=== PATIENT | female | born 1960 | race Caucasian/White ===

== ENCOUNTER 2019-08-14 13:08 | Inpatient (IN) | payer MEDICARE, SELFPAY | END 2019-08-14 20:30 | disposition left against medical advice (07) | DRG 65 | PROVIDERS: Admitting Provider Internal Medicine; Emergency Provider Emergency Medicine; Family Provider Family Medicine; Visit Provider Internal Medicine | DX: I63.9 Cerebral infarction, unspecified (principal); Z68.41 Body mass index [BMI] 40.0-44.9, adult; Z53.29 Procedure and treatment not carried out because of patient's decision for other reasons; I10 Essential (primary) hypertension; Z79.4 Long term (current) use of insulin; G47.33 Obstructive sleep apnea (adult) (pediatric); E11.40 Type 2 diabetes mellitus with diabetic neuropathy, unspecified; E66.9 Obesity, unspecified ==

== ENCOUNTER 2019-10-08 06:00 | Outpatient (RCR) | payer MEDICARE, SELFPAY | END 2019-10-16 23:59 | disposition home or self-care (01) | LOC: SST 06:00 | PROVIDERS: Family Provider Family Medicine; PCP Family Medicine; Referring Provider Internal Medicine; Visit Provider Internal Medicine | DX: R13.10 Dysphagia, unspecified (principal) | CPT/HCPCS: 92507; 96105 ==

== ENCOUNTER 2019-10-17 06:00 | Outpatient (RCR) | payer MEDICARE, SELFPAY | END 2019-11-16 23:59 | disposition home or self-care (01) | LOC: SST 06:00 | PROVIDERS: Family Provider Family Medicine; PCP Family Medicine; Referring Provider Internal Medicine; Visit Provider Internal Medicine | DX: I63.012 Cerebral infarction due to thrombosis of left vertebral artery (principal); I69.320 Aphasia following cerebral infarction; R13.10 Dysphagia, unspecified | CPT/HCPCS: 92507 ==

== ENCOUNTER → 2019-12-28 11:00 | Outpatient (BNVA) | payer MEDICARE, SELFPAY | PROVIDERS: Family Provider Family Medicine; PCP Family Medicine; Visit Provider Internal Medicine | DX: E03.9 Hypothyroidism, unspecified (principal); E11.40 Type 2 diabetes mellitus with diabetic neuropathy, unspecified; Z79.4 Long term (current) use of insulin; K75.81 Nonalcoholic steatohepatitis (NASH); I10 Essential (primary) hypertension; R47.02 Dysphasia; E78.2 Mixed hyperlipidemia | CPT/HCPCS: 80053; 80061; 83036; 83721; 84443; 85025 ==

== ENCOUNTER → 2020-02-29 14:10 | Outpatient (BNVA) | payer MEDICARE, SELFPAY | PROVIDERS: Family Provider Family Medicine; PCP Family Medicine; Visit Provider Internal Medicine | DX: E11.40 Type 2 diabetes mellitus with diabetic neuropathy, unspecified (principal); Z79.4 Long term (current) use of insulin; E03.9 Hypothyroidism, unspecified; I10 Essential (primary) hypertension; R47.02 Dysphasia; E78.2 Mixed hyperlipidemia | CPT/HCPCS: 80053; 83036; 84443; 85025 ==

== ENCOUNTER 2020-07-03 10:52 | Emergency (ER) | payer MEDICARE, SELFPAY ==
[2020-07-03 11:04] VITALS: BP 105/64; PULSE 86; RESP 18; TEMP 36.6; O2SAT 95; BMI 41.5
--- NOTE | 2020-07-03 11:25 | W.ED.FALL ---
HPI - Fall General: Chief Complaint: Fall Stated Complaint: Fall/Right arm injury Time Seen by Provider: 07/03/20 11:23 History of Present Illness: HPI Narrative: Patient is a 60-year-old female comes to the ED with right shoulder and left foot pain after fall. Patient has a past medical history of hypertension, diabetes with neuropathy and Wernicke dysphagia. Patient says she tripped and fell down earlier this morning. She denies any loss of consciousness or hitting her head. She is complaining of having pain on the lateral side of left foot hand and her right shoulder. Patient arrived in homemade sling for right arm. Associated symptoms-after fall: Denies abdominal pain, chest pain, headache(s), hematuria or neck pain Review of Systems Const: Denies: fever(s), chills or fatigue Eyes: Denies: change in vision or eye discomfort ENMT: Denies: throat pain, odynophagia, nasal discharge or nasal congestion Card: Denies: chest pain, palpitations, edema, swelling of feet/ankles, dyspnea on exertion or orthopnea Resp: Denies: dyspnea, productive cough or non-productive cough GI: Denies: abdominal pain, nausea, vomiting, diarrhea, constipation or hematochezia : Denies: flank pain, dysuria or hematuria Musc: Reports: extremity pain (Right shoulder and left foot); Denies: neck pain, back pain or extremity swelling Skin/Breast: Denies: rash or new lesions Neuro: Denies: headache(s), numbness in extremities or weakness in extremities [facility] ED PFSH: Medical History Diabetes mellitus with neuropathy Mixed hyperlipidemia Family History Other Asthma Cancer Diabetes Heart disease Hypertension Stroke Social History Smoking and tobacco status: former smoker Alcohol intake: current Alcohol intake frequency: few times a month History of recent travel: No Physical Exam Const: COMMON NORMALS: no acute distress, patient oriented x3 and alert GENERAL APPEARANCE: cooperative and comfortable HENMT: COMMON NORMALS: normocephalic HEAD & SCALP: normocephalic; no Caceres's sign and no raccoon eyes MOUTH: Normal oral and palatal mucosa present THROAT: posterior oropharynx normal and uvula midline Eye: COMMON NORMALS: Equal, round and reactive pupils present PUPIL: Yes Equal, round and reactive pupils present Neck/C-Spine: COMMON NORMALS: supple GENERAL: Yes normal visual inspection Resp: COMMON NORMALS: normal respiratory effort, No retractions, No use of accessory muscles and clear to auscultation bilaterally AUSCULTATION: clear to auscultation bilaterally Cardio: COMMON NORMALS: regular rate, regular rhythm, S1 normal heart sound present, S2 normal heart sound present, No gallops present (Cardio), No clicks present (Cardio), No murmurs present (Cardio) and Peripheral pulses 2+ throughout RATE: regular rate RHYTHM: regular rhythm HEART SOUNDS: S1 normal heart sound present and S2 normal heart sound present PERIPHERAL PULSES: Peripheral pulses 2+ throughout GI: COMMON NORMALS: Normal to inspection, nondistended, normoactive bowel sounds present, Soft to palpation, non-tender and no masses PALPATION: Yes Soft to palpation : COMMON NORMALS: Yes no CVA tenderness BLADDER/KIDNEY EXAM: Yes no CVA tenderness Back/Pelvis: COMMON NORMALS: no CVA tenderness Extremity: NARRATIVE EXTREMITY EXAM: Left foot?normal visual inspection with no edema or deformity seen. No erythema or warmth. Mild tenderness to lateral aspect of left foot just below fifth digit. Pedal pulse 2+, neurovascular tact. Right shoulder- tender upon palpation near proximal humeral head. No visible deformity seen. Radial pulse 2+ and neurovascular tact. Limited range of motion due to pain. GENERAL: Yes normal exam except as noted Neuro: COMMON NORMALS: patient oriented x3 and moves all extremities SENSORIUM/ORIENTATION: Yes alert SPEECH: expressive aphasia (Patient has Warnicke dysphagia?chronic issue.) Skin: GENERAL SKIN EXAM: dry skin Course Vital Signs: Vital signs: Vital Signs Temperature 97.8 F 07/03/20 11:04 Pulse Rate 99 07/03/20 14:01 Respiratory Rate 16 07/03/20 14:01 Blood Pressure 155/86 07/03/20 14:01 Pulse Oximetry 96 07/03/20 14:01 MDM - Fall MDM Narrative: Medical decision making narrative: Patient is a 60-year-old female comes to the ED after having a fall with right shoulder and left foot pain. Left foot x-ray shows no acute fractures or findings. Right shoulder x-ray shows fracture of surgical neck of the humerus with minimal displacement. Radial pulse in right arm 2+ and neurovascular tact. Plan patient was put in a shoulder immobilizer and referral order was put in with case management for orthopedic doctor. Patient was put on written prescription for [place] 5/325 mg tabs?8 tabs dispensed. She was told that case management will be contacting her in the next several days to set up an appoint with orthopedic doctor. Keep right arm and shoulder immobilizer and limit activity with right arm. Return to ED precautions given. Patient understood and agreed with plan. Imaging Data^: Xray Ortho: Attestation: I personally reviewed and interpreted this imaging study as follows: Radiologist's impression: [facility] [address] [place] [address]. [place] [address] XRay Report Signed Patient: Hilda Wallace Unit #: [id number] : 1960 Age/Sex: 60 / F ADM Date: 07/03/20 Loc: ER Room/Bed: Attending Dr: Ordering Provider/Ordering MD: Brenton Diane Date of Service: 07/03/20 Procedure(s): XR shoulder RT min 2V* 31596 Accession Number(s): [id number] Report Number: [id number] WS: [id number] Exam: XR shoulder RT min 2V* [id number] Date/Time of Exam: 07/03/2020 11:44 AM Reason For Exam: fall Comparison 06/14/2010. There is a fracture through the surgical neck of the humerus with minimal displacement. No dislocation noted. Marked degenerative deformity of the humeral head. A single orthopedic anchoring screw is seen in the humeral head. Postoperative changes of the distal clavicle. Normal soft tissues. XR/XR shoulder RT min 2V* [id number] IMPRESSION: 1. Fracture through the surgical neck of the humerus with minimal displacement. 2. Degenerative changes and osteopenia. Postoperative change. Dictated By: Cesar Harmon DO Signed By: Cesar Harmon DO Signed Date/Time: 07/03/20 1252 DD/ [address] [facility] [address] [place] [address]. [place] [address] XRay Report Signed Patient: Hilda Wallace Unit #: [id number] : 1960 Age/Sex: 60 / F ADM Date: 07/03/20 Loc: ER Room/Bed: Attending Dr: Ordering Provider/Ordering MD: Brenton Diane Date of Service: 07/03/20 Procedure(s): XR foot LT min 3V* 20634 Accession Number(s): [id number] Report Number: [id number] WS: [id number] Exam: XR foot LT min 3V* [id number] Date/Time of Exam: 07/03/2020 11:44 AM Reason For Exam: fall Comparison 03/27/2010. No fracture or dislocation. Posterior heel spur. Degenerative changes in the IP joints and first MP joint. XR/XR foot LT min 3V* [id number] IMPRESSION: 1. Degenerative changes and posterior heel spur. 2. No fracture. Dictated By: Cesar Harmon DO Signed By: Cesar Hamron DO Signed Date/Time: 07/03/20 1300 DD/ 1257 Discharge Plan Discharge Patient Disposition: Home Clinical Impression: Fracture, humerus closed Qualifiers: Encounter type: initial encounter Humerus Location: surgical neck Fracture morphology: 2-part Fracture alignment: nondisplaced Laterality: right Qualified Code(s): S42.224A - 2-part nondisplaced fracture of surgical neck of right humerus, initial encounter for closed fracture Condition: Stable Prescriptions: No Action metoprolol tartrate 25 mg tablet 25 mg PO BID 90 Days Qty: 180 RF: 3 insulin aspart U-100 [Novolog Flexpen U-100 Insulin] 100 unit/mL (3 mL) insulin pen 50 unit SUBCUT TID Qty: 45 RF: 12 hydrochlorothiazide 50 mg tablet 50 mg PO QAM Qty: 90 RF: 3 tramadol 50 mg tablet 50 mg PO Q6H PRN (Reason: pain) Qty: 120 RF: 2 spironolactone 50 mg tablet 50 mg PO QAM 30 Days Qty: 30 RF: 2 duloxetine 60 mg capsule,delayed release(DR/EC) 60 mg PO DAILY Qty: 90 RF: 3 allopurinol 300 mg tablet 300 mg PO DAILY Qty: 90 RF: 0 atorvastatin 80 mg tablet See Rx Instructions .ROUTE .COMPLEX Qty: 90 RF: 0 clopidogrel 75 mg tablet See Rx Instructions .ROUTE .COMPLEX Qty: 90 RF: 0 lisinopril 10 mg tablet 10 mg PO DAILY RF: 0 tizanidine 6 mg capsule 6 mg PO BEDTIME PRN (Reason: muscle spasticity) RF: 0 Discharge Orders: Discharge Order (Routine); Ordered 07/03/20 Ordered By: Brenton Diane Referrals: Neftaly Brambial MD [Primary Care Provider] - Discharge Diet: Regular Discharge Activity: Limit activity as instructed Patient Instructions: Fractures - Humerus Activity Restrictions/Additional Instructions: Follow-up with medical provider as directed. Case management will be contacting you in the next several days to set up an appointment with orthopedic doctor. Keep right arm and shoulder immobilizer until seen and instructed otherwise by orthopedic doctor. Take medications as prescribed. Return to the ER or your medical provider if condition worsens. Please read and understand discharge instructions. If any questions, please ask. Coding Level of Care Code ED [facility] for [employer] [facility] Exam Comprehensive
--- NOTE | 2020-07-03 11:44 | XR_ITS ---
WS: [id number] Exam: XR shoulder RT min 2V* [id number] Date/Time of Exam: 07/03/2020 11:44 AM Reason For Exam: fall Comparison 06/14/2010. There is a fracture through the surgical neck of the humerus with minimal displacement. No dislocatio n noted. Marked degenerative deformity of the humeral head. A single orthopedic anchoring screw is se en in the humeral head. Postoperative changes of the distal clavicle. Normal soft tissues. XR/XR shoulder RT min 2V* [id number] IMPRESSION: 1. Fracture through the surgical neck of the humerus with minimal displacement. 2. Degenerative changes and osteopenia. Postoperative change.
--- NOTE | 2020-07-03 11:44 | XR_ITS ---
WS: [id number] Exam: XR foot LT min 3V* [id number] Date/Time of Exam: 07/03/2020 11:44 AM Reason For Exam: fall Comparison 03/27/2010. No fracture or dislocation. Posterior heel spur. Degenerative changes in the IP joints and first MP j oint. XR/XR foot LT min 3V* [id number] IMPRESSION: 1. Degenerative changes and posterior heel spur. 2. No fracture.
[2020-07-03] MEDS: HYDROcodone-acetaminophen 7.5-325 mg Tablet 1 TAB PO (12:18)
[2020-07-03 12:21] VITALS: BP 127/63; PULSE 87; RESP 14; O2SAT 97
[2020-07-03 14:01] VITALS: BP 155/86; PULSE 99; RESP 16; O2SAT 96
--- NOTE | 2020-07-03 14:39 | DCPLANNER ---
client account manager was asked to schedule a follow up appointment for patient with ortho. client account manager called the ortho clinic, spoke with Zunilda, gave clinic patients information. client account manager was told that patients information would be printed and reviewed. Clinic will call patient with appointment information.
--- NOTE | 2020-07-12 09:41 | DCPLANNER ---
Patient has a follow up appointment scheduled for Saturday, July 25, 2020 at 9:[address] Garcia. Clinic will call patient with appointment information.
--- NOTE | 2020-08-01 15:13 | DCPLANNER ---
Patient had a follow up appointment scheduled for 07.25.20 with ortho - patient did not attend appointment.
== END 2020-07-03 14:02 | disposition home or self-care (01) ==
PROVIDERS: Emergency Provider Physician Assistant; PCP Internal Medicine
DX: S42.224A 2-part nondisplaced fracture of surgical neck of right humerus, initial encounter for closed fracture (principal); W01.0XXA Fall on same level from slipping, tripping and stumbling without subsequent striking against object, initial encounter
CPT/HCPCS: 12345; 29240; 73030; 73630; 99281; 99283

== ENCOUNTER 2020-07-08 11:45 | Observation (INO) | payer MEDICARE, SELFPAY ==
--- NOTE | 2020-07-08 11:50 | CTR_ITS ---
PROCEDURE INFORMATION: Exam: CT Cervical Spine Without Contrast Exam date and time: 07/08/2020 1:45 PM Age: 60 years old Clinical indication: Injury or trauma; Fall; Blunt trauma; Additional info: Pain TECHNIQUE: Imaging protocol: Computed tomography images of the cervical spine without contrast. Radiation optimization: All CT scans at this facility use at least one of these dose optimization techniques: automated exposure control; mA and/or kV adjustment per patient size (includes targeted exams where dose is matched to clinical indication); or iterative reconstruction. COMPARISON: CT Cervical Spine wo* [id number] 06/16/2014 8:42 PM RADIATION DOSE METRICS: Total DLP (mGy-cm): 705.24 FINDINGS: Bones/joints: The vertebral bodies maintain height and alignment. The facets align normally. Mild facet arthropathy on the right at C7-T1, and on the left at C2-C3. The craniocervical junction is normal. The atlantodens interval is not widened. No acute fracture. Discs/Spinal canal/Neural foramina: There is disc and uncovertebral joint degeneration at C5-C6 and C6-C7. Mild bilateral degenerative foraminal stenosis at these levels. Soft tissues: No acute soft tissue abnormality. Thyroid: Heterogeneous thyroid gland with calcifications in the right lobe. Lungs: The lung apices are normal. CT/CT cervical spin wo con* [id number] IMPRESSION: No acute osseous abnormality. Radiation Dose CTDIVOL = (mGy): DLP = 705.24 (mGy-cm)
--- NOTE | 2020-07-08 11:50 | CTR_ITS ---
PROCEDURE INFORMATION: Exam: CT Head Without Contrast Exam date and time: 07/08/2020 1:45 PM Age: 60 years old Clinical indication: Altered mental status/memory loss; Confusion or disorientation; Additional info: Fall/injury/altered mental status TECHNIQUE: Imaging protocol: Computed tomography of the head without contrast. Radiation optimization: All CT scans at this facility use at least one of these dose optimization techniques: automated exposure control; mA and/or kV adjustment per patient size (includes targeted exams where dose is matched to clinical indication); or iterative reconstruction. COMPARISON: CT Head wo IV contrast* [id number] 08/14/2019 2:13 PM RADIATION DOSE METRICS: Total DLP (mGy-cm): 948.64 FINDINGS: Brain: There is left temporal lobe encephalomalacia from a prior infarct. Interval chronic appearing small right cerebellar infarct. No intracranial hemorrhage. No acute brain injury. Cerebral ventricles: No hydrocephalus. There is a cavum septum pellucidum and cavum vergae. Bones/joints: No calvarial fracture. There is hyperostosis frontalis interna. Paranasal sinuses: The paranasal sinuses are aerated. Mastoid air cells: The mastoid air cells are aerated. Soft tissues: No acute soft tissue abnormality. CT/CT head wo con* [id number] IMPRESSION: No intracranial injury or calvarial fracture. Radiation Dose CTDIVOL = (mGy): DLP = 948.64 (mGy-cm)
--- NOTE | 2020-07-08 11:51 | CTR_ITS ---
PROCEDURE INFORMATION: Exam: CT Lumbar Spine Without Contrast Exam date and time: 07/08/2020 1:45 PM Age: 60 years old Clinical indication: Injury or trauma; Fall; Blunt trauma (contusions or hematomas); Additional info: Pain/fall TECHNIQUE: Imaging protocol: Computed tomography images of the lumbar spine without contrast. Radiation optimization: All CT scans at this facility use at least one of these dose optimization techniques: automated exposure control; mA and/or kV adjustment per patient size (includes targeted exams where dose is matched to clinical indication); or iterative reconstruction. COMPARISON: No relevant prior studies available. RADIATION DOSE METRICS: Total DLP (mGy-cm): 2007.9 FINDINGS: Vertebrae: The lumbar vertebral bodies maintain height and alignment. The facets align normally. There is multilevel facet arthropathy. No acute fracture. Discs/Spinal canal/Neural foramina: There is multilevel disc degeneration with bridging osteophyte formation. Soft tissues: No paraspinal soft tissue swelling. CT/CT lumbar spine wo con* [id number] IMPRESSION: 1. No acute osseous abnormality. 2. Multilevel degenerative changes. Radiation Dose CTDIVOL = (mGy): DLP = 2007.9 (mGy-cm)
--- NOTE | 2020-07-08 11:51 | XRR_ITS ---
PROCEDURE INFORMATION: Exam: XR Chest, 1 View Exam date and time: 07/08/2020 11:52 AM Age: 60 years old Clinical indication: Injury or trauma; Fall; Blunt trauma (contusions or hematomas); Additional info: Altered mental status TECHNIQUE: Imaging protocol: XR of the chest Views: 1 view. COMPARISON: CR Chest 1 [place] [id number] 08/14/2019 1:25 PM FINDINGS: Lungs: Unremarkable. No consolidation. Pleural space: Unremarkable. No pleural effusion. No pneumothorax. Heart/Mediastinum: Unremarkable. No cardiomegaly. Bones/joints: Unremarkable. XR/XR chest 1V portable [id number] IMPRESSION: No acute findings.
[2020-07-08 11:52] VITALS: BP 145/77; PULSE 72; RESP 16; TEMP 37.3; O2SAT 97; BMI 36.6
--- NOTE | 2020-07-08 11:52 | ECG_ITS ---
[facility] Test Date: 2020-07-08 Pat Name: Hilda Wallace Department: Room: Gender: Female Managing Attorney: : 1960 Requested By: Rylie Farrell Order Number: [id number] Kyler MD: Miguel Zimmer M.D. Measurements Intervals [place] Rate: 87 P: 28 IA: 156 QRS: -36 QRSD: 127 T: 66 QT: 393 QTc: 473 Interpretive Statements SINUS RHYTHM WITH OCCASIONAL SUPRAVENTRICULAR PREMATURE COMPLEXES LEFT AXIS DEVIATION [QRS AXIS < -30] RIGHT BUNDLE BRANCH BLOCK [120+ ms QRS DURATION, UPRIGHT V1, 40+ ms S IN I/aVL/V4/V5/V6] LEFT VENTRICULAR HYPERTROPHY AND ST-T CHANGE [VOLTAGE CRITERIA PLUS ST/T ABNORMALITY] LATERAL MYOCARDIAL INFARCTION , PROBABLY OLD [40+ ms Q WAVE AND/OR ST/T ABNORMALITY IN I/aVL/V5/V6] Compared to ECG 08/14/2019 17:06:31 No significant changes Electronically Signed On 07-09-2020 18:44:02 CAN DRYER by Miguel Zimmer M.D. [id number]
--- NOTE | 2020-07-08 12:00 | CTR_ITS ---
PROCEDURE INFORMATION: Exam: CT Angiography Head With Contrast Exam date and time: 07/08/2020 1:45 PM Age: 60 years old Clinical indication: Other: Fall, AMS; Additional info: Altered mental status TECHNIQUE: Imaging protocol: Computed tomography angiography of the head with intravenous contrast. 3D rendering (Not supervised by radiologist): MIP and/or 3D reconstructed images were created by the technologist. Radiation optimization: All CT scans at this facility use at least one of these dose optimization techniques: automated exposure control; mA and/or kV adjustment per patient size (includes targeted exams where dose is matched to clinical indication); or iterative reconstruction. Contrast material: VISI 320; Contrast volume: 95 ml; Contrast route: INTRAVENOUS (IV); COMPARISON: CTA Head/Neck [id number] 08/14/2019 2:18 PM RADIATION DOSE METRICS: Total DLP (mGy-cm): 2163.31 FINDINGS: ANTERIOR CIRCULATION: Right internal carotid artery: No stenosis, occlusion or aneurysm. Right middle cerebral artery: No stenosis, occlusion or aneurysm. Right anterior cerebral artery: No stenosis, occlusion or aneurysm. Left internal carotid artery: No stenosis, occlusion or aneurysm. Left middle cerebral artery: No stenosis, occlusion or aneurysm. Left anterior cerebral artery: No stenosis, occlusion or aneurysm. POSTERIOR CIRCULATION: Right vertebral artery: No stenosis, occlusion or aneurysm. Left vertebral artery: Terminates in PICA Basilar artery: No stenosis, occlusion or aneurysm. Right posterior cerebral artery: No stenosis, occlusion or aneurysm. The posterior communicating artery is patent. Left posterior cerebral artery: No stenosis, occlusion or aneurysm. The posterior communicating artery is patent. Brain: No acute brain parenchymal abnormality. Left temporal lobe encephalomalacia from prior infarct. Small chronic appearing right cerebellar infarct. No intracranial hemorrhage. No extraaxial fluid collections. Cerebral ventricles: No hydrocephalus. Bones/joints: No acute osseous abnormality. Soft tissues: No acute soft tissue abnormality. IMPRESSION: No large vessel occlusion. PROCEDURE INFORMATION: Exam: CT Angiography Neck With Contrast Exam date and time: 07/08/2020 1:45 PM Age: 60 years old Clinical indication: Other: Fall, AMS; Additional info: Altered mental status TECHNIQUE: Imaging protocol: Computed tomography angiography of the neck with intravenous contrast. 3D rendering (Not supervised by radiologist): MIP and/or 3D reconstructed images were created by the technologist. Radiation optimization: All CT scans at this facility use at least one of these dose optimization techniques: automated exposure control; mA and/or kV adjustment per patient size (includes targeted exams where dose is matched to clinical indication); or iterative reconstruction. Contrast material: VISI 320; Contrast volume: 95 ml; Contrast route: INTRAVENOUS (IV); COMPARISON: CTA Head/Neck [id number] 08/14/2019 2:18 PM RADIATION DOSE METRICS: Total DLP (mGy-cm): 2163.31 FINDINGS: Right common carotid artery: No stenosis, occlusion or dissection. Right internal carotid artery: Mild eccentric plaque formation in the bulb causing 25% luminal stenosis. Right external carotid artery: No occlusion or stenosis of the origin. Right vertebral artery: No stenosis, occlusion or dissection. Dominant. Left common carotid artery: No stenosis, occlusion or dissection. Left internal carotid artery: Mild eccentric plaque formation in the bulb causing 30% luminal stenosis. Left external carotid artery: No occlusion or stenosis of the origin. Left vertebral artery: No stenosis, occlusion or dissection. Thyroid: Enlarged thyroid with multiple nodules and/or cysts measuring up to 1.6 cm in size. Calcifications in the right lobe. Bones/joints: Multilevel degenerative changes in the cervical spine. Soft tissues: No acute soft tissue abnormality. Lungs: Calcified right upper lobe pulmonary granulomas. CT/CT angio headneck* [id number] IMPRESSION: 1. Mild (25-30%) bilateral proximal ICA stenosis. 2. Multinodular goiter. COMMENTS: Consistent with the [employer]'s Incidental Findings Committee white paper (J Am Kirt Radiol 2015): In patients aged 35 years and older with an incidental thyroid nodule equal to or greater than 1.[address], MRI or extrathyroidal US, further evaluation with dedicated thyroid US is recommended for patients with normal life expectancy and without comorbidities. For smaller nodules without suspicious features, no further evaluation or follow up is recommended. REFERENCES: NASCET CRITERIA. The degree of internal carotid artery stenosis is based on NASCET criteria. Normal is no stenosis. Mild is less than 50% stenosis. Moderate is 50-69% stenosis. Severe is 70% to 99% stenosis. Total occlusion is no detectable patent lumen. Radiation Dose CTDIVOL = (mGy): DLP = 2163.31~2163.31 (mGy-cm)
[2020-07-08 12:13] LABS: Basophils # 0.1 10^3/uL (0.0-0.1); Basophils % 0.7 %; Eosinophils % 0.4 %; Hematocrit 36.4 % (37.0-47.0); Hemoglobin 11.9 g/dL (11.5-15.3); Lymphocytes # 1.6 10^3/uL (0.8-4.8); Lymphocytes % 16.4 %; Mean Corpuscular HGB Conc 32.7 g/dL (30.0-36.0); Mean Corpuscular Hemoglobin 28.1 pg (28.0-34.0); Mean Corpuscular Volume 86.1 fL (81-99); Mean Platelet Volume 10.4 fL (7.4-10.4); Monocytes # 0.8 10^3/uL (0.2-0.9); Monocytes % 8.6 %; Neutrophils # 7.03 10^3/uL (1.8-7.7); Neutrophils % 73.6 %; Nucleated Red Blood Cells % 0 %; Platelet Count 409 10^3/cmm (130-400); Red Blood Count 4.23 10^6/uL (4.1-5.3); Red Cell Distribution Width 13.1 % (12.1-15.1); White Blood Count 9.6 10^3/uL (4.0-10.0)
[2020-07-08 12:23] LABS: Ketone (Acetest) Serum Positive (Negative)
--- NOTE | 2020-07-08 12:33 | XRR_ITS ---
PROCEDURE INFORMATION: Exam: XR Right Humerus Exam date and time: 07/08/2020 12:33 PM Age: 60 years old Clinical indication: Injury or trauma; Fall; Blunt trauma (contusions or hematomas); Arm, upper; Right TECHNIQUE: Imaging protocol: XR Right humerus Views: 2 or more views. COMPARISON: No relevant prior studies available. FINDINGS: Bones/joints: There is a transverse fracture through the humeral neck. The distal fragment is displaced about 17 mm anteriorly. The humeral head is not dislocated. There is a metal anchor in the tuberosity consistent with rotator cuff surgery. Soft tissues: Normal. XR/[place] [id number] IMPRESSION: Displaced fracture of the humeral neck.
--- NOTE | 2020-07-08 12:40 | W.ED.FALL ---
HPI - Fall General: Chief Complaint: Fall Stated Complaint: CONFUSION; HEAD AND ARM PAIN S/P FALL Time Seen by Provider: 07/08/20 11:50 Source: patient and EMS Mode of arrival: EMS Limitations: altered mental status History of Present Illness: HPI Narrative: Mrs. Wallace is a 60-year-old female brought in by EMS with report of fall. EMS reports the patient is confused and her speech at times will not make sense. Apparently she fell they believe sometime at 5 AM and laid on the floor for at least 2 hours. First responders were called to the home and help the patient get up but her mental status was not really related from that episode. Later family was concerned about the patient's mental status and generalized weakness and called EMS again to come transport the patient here for evaluation. Here the patient seems to make sense at times but then her speech rambles off to something unrelated. It is been related to us from EMS the patient has fallen several times in the past few days. At this time I do not believe history is reliable as the patient does not always make sense. Family was at the scene but it is unclear whether they are coming to see the patient here or not. Review of Systems General: Reports: ROS unobtainable due to mental status PFSH ED PFSH: Medical History Diabetes mellitus with neuropathy Mixed hyperlipidemia Family History Other Asthma Cancer Diabetes Heart disease Hypertension Stroke Social History Smoking and tobacco status: former smoker Alcohol intake: current Alcohol intake frequency: few times a month History of recent travel: No Physical Exam Const: COMMON NORMALS: no acute distress, no limitations and alert GENERAL APPEARANCE: cooperative ORIENTATION/CONSCIOUSNESS: Yes confused HENMT: COMMON NORMALS: normocephalic, atraumatic, external ears normal, EAC's normal and Normal external nose present HEAD & SCALP: normal to inspection, normocephalic and atraumatic FACE & SINUS: normal facial exam and face symmetric NOSE: Normal external nose present and Normal nares present EXTERNAL EAR: Yes external ears normal EXTERNAL AUDITORY CANAL: EAC's normal MOUTH: Normal oral and palatal mucosa present, lip normal and tongue normal Eye: COMMON NORMALS: Equal, round and reactive pupils present and conjunctivae normal GENERAL EYE: appearance normal, both eyes and all related structures ALIGNMENT: Yes alignment normal PERIORBITAL: periorbital findings normal EYELID: eyelids normal CONJUNCTIVA: Yes conjunctivae normal SCLERA: sclerae normal PUPIL: Yes Equal, round and reactive pupils present Neck/C-Spine: COMMON NORMALS: full ROM, no lymphadenopathy, supple, no meningeal signs and no JVD GENERAL: Yes normal visual inspection and Yes trachea midline Chest: COMMONS NORMALS: normal inspection of the chest and normal palpation of entire chest wall Resp: COMMON NORMALS: normal respiratory effort, No retractions, No use of accessory muscles and clear to auscultation bilaterally EFFORT & INSPECTION: Yes able to speak in complete sentences and Yes symmetric chest movement AUSCULTATION: clear to auscultation bilaterally, no crackles, no rales, no rhonchi and no wheezes Cardio: COMMON NORMALS: no JVD, regular rate, regular rhythm, S1 normal heart sound present and S2 normal heart sound present RATE: regular rate RHYTHM: regular rhythm HEART SOUNDS: S1 normal heart sound present, S2 normal heart sound present, no click, no gallops, no murmurs and no rubs GI: COMMON NORMALS: Soft to palpation and No hepatosplenomegaly present PALPATION: Yes Soft to palpation, No Tenderness to palpation present (GI), No Guarding due to palpation present (GI), No Rigid due to palpation, Yes No hepatosplenomegaly present, No Hernia present, No Palpable mass present and No Pulsatile mass present : COMMON NORMALS: Yes no CVA tenderness BLADDER/KIDNEY EXAM: Yes no CVA tenderness EXTERNAL FEMALE EXAM: No Hernia present Back/Pelvis: COMMON NORMALS: no CVA tenderness, thoracic and lumbar spine normal to inspection, no thoracic nor lumbar tenderness and thoraco-lumbar ROM normal Extremity: NARRATIVE EXTREMITY EXAM: Significant bruising noted to right upper extremity neurovascular intact distal. Neuro: COMMON NORMALS: CN's II-XII intact bilaterally, moves all extremities, no focal motor deficits and no sensory deficits noted SENSORIUM/ORIENTATION: Yes alert MENINGEAL SIGNS: Yes no meningeal signs SPEECH: speech normal Skin: COMMON NORMALS: no rashes or lesions noted, turgor normal, no jaundice, no petechiae and no mottling GENERAL SKIN EXAM: no rashes or lesions noted and turgor normal Course Vital Signs: Vital signs: Vital Signs Temperature 99.2 F 11/21/20 11:52 Pulse Rate 72 07/08/20 11:52 Respiratory Rate 16 07/08/20 11:52 Blood Pressure 145/77 07/08/20 11:52 Pulse Oximetry 97 07/08/20 11:52 MDM - Fall Lab Data: Attestation: I reviewed the patient's lab results. Labs: Lab Results 07/08/20 07/08/20 07/08/20 Range/Units 11:32 11:32 11:32 WBC 9.6 (4.0-10.0) 10^3/ uL RBC 4.23 (4.1-5.3) 10^6/u L Hgb 11.9 (11.5-15.3) g/dL Hct 36.4 L (37.0-47.0) % MCV 86.1 (81-99) fL MCH 28.1 (28.0-34.0) pg MCHC 32.7 (30.0-36.0) g/dL RDW 13.1 (12.1-15.1) % Plt Count 409 H (130-400) 10^3/c mm MPV 10.4 (7.4-10.4) fL Neut % (Auto) 73.6 % Lymph % (Auto) 16.4 % [place] % (Auto) 8.6 % Eos % (Auto) 0.4 % Baso % (Auto) 0.7 % Neut # (Auto) 7.03 (1.8-7.7) 10^3/u L Lymph # (Auto) 1.6 (0.8-4.8) 10^3/u L [place] # (Auto) 0.8 (0.2-0.9) 10^3/u L Eos # (Auto) 0.0 (0.0-0.8) 10^3/u L Baso # (Auto) 0.1 (0.0-0.1) 10^3/u L Nucleated RBC % (a uto) 0 % Nucleated RBCs # 0.0 /100WBC PT 14.00 (12.1-14.9) SECO NDS INR 1.04 (0.8-1.2) Specimen Type Sample Site ABG pH (7.35-7.45) ABG pCO2 (35-45) mmHg ABG pO2 (80.0-100.0) mmH g ABG HCO3 (22-26) mmol/L ABG Base Excess (-2.0-2.0) mmol/ L Thien Test Hematocrit (37-47) % O2 Delivery Device Borematic Operator ID Sodium 128 L (136-145) mmol/L Potassium 4.2 (3.5-5.1) mmol/L Chloride 84 L (98-107) mmol/L Carbon Dioxide 27 (22-29) mmol/L Anion Gap 21.2 H (5-19) BUN 45 H (8-23) mg/dL Creatinine 1.1 H (0.5-0.9) mg/dL GFR Calculation 50.7 L (90-130) mL/min Glucose 563 H* (65-115) mg/dL Calculated Osmolal ity 303 H (285-295) mOsm/k g Lactic Acid (0.5-2.2) mmol/L Calcium 9.7 (8.5-10.5) mg/dL Magnesium 1.6 L (1.7-2.3) mg/dL Total Bilirubin 0.8 (0.15-1.2) mg/dL AST 21 (0-32) U/L ALT 23 (0-33) U/L Alkaline Phosphata se 97 (35-105) IU/L Ammonia (11-51) umol/L Creatine Kinase 213 H (26-192) U/L Troponin T Baselin e (0-10) ng/L Total Protein 6.3 L (6.6-8.7) g/dL Albumin 3.8 (3.5-5.2) g/dL Globulin 2.5 (1.3-4.6) g/dL TSH 1.30 (0.27-4.20) uIU/ mL Free T4 1.78 H (0.82-1.77) ng/d L Ethyl Alcohol < 10 (0-10) mg/dL Serum Ketones Positive H (Negative) 07/08/20 07/08/20 07/08/20 Range/Units 11:32 13:45 14:03 WBC (4.0-10.0) 10^3/ uL RBC (4.1-5.3) 10^6/u L Hgb (11.5-15.3) g/dL Hct (37.0-47.0) % MCV (81-99) fL MCH (28.0-34.0) pg MCHC (30.0-36.0) g/dL RDW (12.1-15.1) % Plt Count (130-400) 10^3/c mm MPV (7.4-10.4) fL Neut % (Auto) % Lymph % (Auto) % [place] % (Auto) % Eos % (Auto) % Baso % (Auto) % Neut # (Auto) (1.8-7.7) 10^3/u L Lymph # (Auto) (0.8-4.8) 10^3/u L [place] # (Auto) (0.2-0.9) 10^3/u L Eos # (Auto) (0.0-0.8) 10^3/u L Baso # (Auto) (0.0-0.1) 10^3/u L Nucleated RBC % (a uto) % Nucleated RBCs # /100WBC PT (12.1-14.9) SECO NDS INR (0.8-1.2) Specimen Type Arterial Sample Site Brachial, right ABG pH 7.52 H (7.35-7.45) ABG pCO2 33.9 L (35-45) mmHg ABG pO2 77.7 L (80.0-100.0) mmH g ABG HCO3 27.8 H (22-26) mmol/L ABG Base Excess 5.1 H (-2.0-2.0) mmol/ L Thien Test Pos Hematocrit 38.0 (37-47) % O2 Delivery Device None Borematic Operator ID Drn Sodium (136-145) mmol/L Potassium (3.5-5.1) mmol/L Chloride (98-107) mmol/L Carbon Dioxide (22-29) mmol/L Anion Gap (5-19) BUN (8-23) mg/dL Creatinine (0.5-0.9) mg/dL GFR Calculation (90-130) mL/min Glucose (65-115) mg/dL Calculated Osmolal ity (285-295) mOsm/k g Lactic Acid 1.6 (0.5-2.2) mmol/L Calcium (8.5-10.5) mg/dL Magnesium (1.7-2.3) mg/dL Total Bilirubin (0.15-1.2) mg/dL AST (0-32) U/L ALT (0-33) U/L Alkaline Phosphata se (35-105) IU/L Ammonia (11-51) umol/L Creatine Kinase (26-192) U/L Troponin T Baselin e 138 H* (0-10) ng/L Total Protein (6.6-8.7) g/dL Albumin (3.5-5.2) g/dL Globulin (1.3-4.6) g/dL TSH (0.27-4.20) uIU/ mL Free T4 (0.82-1.77) ng/d L Ethyl Alcohol (0-10) mg/dL Serum Ketones (Negative) 07/08/20 Range/Units 14:03 WBC (4.0-10.0) 10^3/ uL RBC (4.1-5.3) 10^6/u L Hgb (11.5-15.3) g/dL Hct (37.0-47.0) % MCV (81-99) fL MCH (28.0-34.0) pg MCHC (30.0-36.0) g/dL RDW (12.1-15.1) % Plt Count (130-400) 10^3/c mm MPV (7.4-10.4) fL Neut % (Auto) % Lymph % (Auto) % [place] % (Auto) % Eos % (Auto) % Baso % (Auto) % Neut # (Auto) (1.8-7.7) 10^3/u L Lymph # (Auto) (0.8-4.8) 10^3/u L [place] # (Auto) (0.2-0.9) 10^3/u L Eos # (Auto) (0.0-0.8) 10^3/u L Baso # (Auto) (0.0-0.1) 10^3/u L Nucleated RBC % (a uto) % Nucleated RBCs # /100WBC PT (12.1-14.9) SECO NDS INR (0.8-1.2) Specimen Type Sample Site ABG pH (7.35-7.45) ABG pCO2 (35-45) mmHg ABG pO2 (80.0-100.0) mmH g ABG HCO3 (22-26) mmol/L ABG Base Excess (-2.0-2.0) mmol/ L Thien Test Hematocrit (37-47) % O2 Delivery Device Borematic Operator ID Sodium (136-145) mmol/L Potassium (3.5-5.1) mmol/L Chloride (98-107) mmol/L Carbon Dioxide (22-29) mmol/L Anion Gap (5-19) BUN (8-23) mg/dL Creatinine (0.5-0.9) mg/dL GFR Calculation (90-130) mL/min Glucose (65-115) mg/dL Calculated Osmolal ity (285-295) mOsm/k g Lactic Acid (0.5-2.2) mmol/L Calcium (8.5-10.5) mg/dL Magnesium (1.7-2.3) mg/dL Total Bilirubin (0.15-1.2) mg/dL AST (0-32) U/L ALT (0-33) U/L Alkaline Phosphata se (35-105) IU/L Ammonia 10 L (11-51) umol/L Creatine Kinase (26-192) U/L Troponin T Baselin e (0-10) ng/L Total Protein (6.6-8.7) g/dL Albumin (3.5-5.2) g/dL Globulin (1.3-4.6) g/dL TSH (0.27-4.20) uIU/ mL Free T4 (0.82-1.77) ng/d L Ethyl Alcohol (0-10) mg/dL Serum Ketones (Negative) Imaging Data^: CXR: Attestation: I personally reviewed and interpreted this imaging study as follows: My impression: No acute cardiopulmonary findings. XR Right humerus: Attestation: I personally reviewed and interpreted this imaging study as follows: My impression: Proximal humerus fracture with mild displacement. CT Head: Radiologist's impression: [address] [address] [address] Scan Report Signed Patient: Hilda Wallace Unit #: [id number] : 1960 Age/Sex: 60 / F ADM Date: 07/08/20 Loc: ER Room/Bed: Attending Dr: Ordering Provider/Ordering MD: Rylie Ma DO Date of Service: 07/08/20 Procedure(s): CT head wo con* [id number] Accession Number(s): [id number] Report Number: [id number] PROCEDURE INFORMATION: Exam: CT Head Without Contrast Exam date and time: 07/08/2020 1:45 PM Age: 60 years old Clinical indication: Altered mental status/memory loss; Confusion or disorientation; Additional info: Fall/injury/altered mental status TECHNIQUE: Imaging protocol: Computed tomography of the head without contrast. Radiation optimization: All CT scans at this facility use at least one of these dose optimization techniques: automated exposure control; mA and/or kV adjustment per patient size (includes targeted exams where dose is matched to clinical indication); or iterative reconstruction. 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 Interval chronic appearing small right cerebellar infarct. No intracranial hemorrhage. No acute brain injury. Cerebral ventricles: No hydrocephalus. There is a cavum septum pellucidum and cavum vergae. Bones/joints: No calvarial fracture. There is hyperostosis frontalis interna. Paranasal sinuses: The paranasal sinuses are aerated. Mastoid air cells: The mastoid air cells are aerated. Soft tissues: No acute soft tissue abnormality. CT/CT head wo con* [id number] IMPRESSION: No intracranial injury or calvarial fracture. Radiation Dose CTDIVOL = (mGy): DLP = 948.64 (mGy-cm) Dictated By: Rafael Zavaleta Signed By: Rafael Zavaleta Signed Date/Time: 07/08/201422 DD/ 142 CT Cervical Spine: Radiologist's impression: [address] [place] [address] CT Scan Report Signed Patient: Hilda Wallace Unit #: [id number] : 1960 Age/Sex: 60 / F ADM Date: 07/08/20 Loc: ER Room/Bed: Attending Dr: Ordering Provider/Ordering MD: Rylie Ma DO Date of Service: 07/08/20 Procedure(s): CT cervical spin wo con* [id number] Accession Number(s): [id number] Report Number: [id number] PROCEDURE INFORMATION: Exam: CT Cervical Spine Without Contrast Exam date and time: 07/08/2020 1:45 PM Age: 60 years old Clinical indication: Injury or trauma; Fall; Blunt trauma; Additional info: Pain TECHNIQUE: Imaging protocol: Computed tomography images of the cervical spine without contrast. Radiation optimization: All CT scans at this facility use at least one of these dose optimization techniques: automated exposure control; mA and/or kV adjustment per patient size (includes targeted exams where dose is matched to clinical indication); or iterative reconstruction. COMPARISON: CT Cervical Spine wo* [id number] 06/16/2014 8:42 PM RADIATION DOSE METRICS: Total DLP (mGy-cm): 705.24 FINDINGS: Bones/joints: The vertebral bodies maintain height and alignment. The facets align normally. Mild facet arthropathy on the right at C7-T1, and on the left at C2-C3. The craniocervical junction is normal. The atlantodens interval is not widened. No acute fracture. Discs/Spinal canal/Neural foramina: There is disc and uncovertebral joint degeneration at C5-C6 and C6-C7. Mild bilateral degenerative foraminal stenosis at these levels. Soft tissues: No acute soft tissue abnormality. Thyroid: Heterogeneous thyroid gland with calcifications in the right lobe. Lungs: The lung apices are normal. CT/CT cervical spin wo con* [id number] IMPRESSION: No acute osseous abnormality. Radiation Dose CTDIVOL = (mGy): DLP = 705.24 (mGy-cm) Dictated By: Rafael Zavaleta Signed By: Rafael Zavaleta Signed Date/Time: 07/08/201426 DD/ 24 CT Lumbar Spine: Radiologist's impression: [facility] [address] [place] [address] CT Scan Report Signed Patient: Hilda Wallace Unit #: [id number] : 1960 Age/Sex: 60 / F ADM Date: 07/08/20 Loc: ER Room/Bed: Attending Dr: Ordering Provider/Ordering MD: Rylie Ma DO Date of Service: 07/08/20 Procedure(s): CT lumbar spine wo con* [id number] Accession Number(s): [id number] Report Number: [id number] PROCEDURE INFORMATION: Exam: CT Lumbar Spine Without Contrast Exam date and time: 07/08/2020 1:45 PM Age: 60 years old Clinical indication: Injury or trauma; Fall; Blunt trauma (contusions or hematomas); Additional info: Pain/fall TECHNIQUE: Imaging protocol: Computed tomography images of the lumbar spine without contrast. Radiation optimization: All CT scans at this facility use at least one of these dose optimization techniques: automated exposure control; mA and/or kV adjustment per patient size (includes targeted exams where dose is matched to clinical indication); or iterative reconstruction. COMPARISON: No relevant prior studies available. RADIATION DOSE METRICS: Total DLP (mGy-cm): 2007.9 FINDINGS: Vertebrae: The lumbar vertebral bodies maintain height and alignment. The facets align normally. There is multilevel facet arthropathy. No acute fracture. Discs/Spinal canal/Neural foramina: There is multilevel disc degeneration with bridging osteophyte formation. Soft tissues: No paraspinal soft tissue swelling. CT/CT lumbar spine wo con* [id number] IMPRESSION: 1. No acute osseous abnormality. 2. Multilevel degenerative changes. Radiation Dose CTDIVOL = (mGy): DLP = 2007.9 (mGy-cm) Dictated By: Rafael Zavaleta Signed By: Rafael Zavaleta Signed Date/Time: 07/08/20 1440 DD/ 1438 CTA Head and Neck: Radiologist's impression: [facility] [address] [place] [address] CT Scan Report Signed Patient: Hilda Wallace Unit #: [id number] : 1960 Age/Sex: 60 / F ADM Date: 07/08/20 Loc: ER Room/Bed: Attending Dr: Ordering Provider/Ordering MD: Rlyie Ma DO Date of Service: 07/08/20 Procedure(s): CT angio headneck* [id number] Accession Number(s): [id number] Report Number: [id number] PROCEDURE INFORMATION: Exam: CT Angiography Head With Contrast Exam date and time: 07/08/2020 1:45 PM Age: 60 years old Clinical indication: Other: Fall, AMS; Additional info: Altered mental status TECHNIQUE: Imaging protocol: Computed tomography angiography of the head with intravenous contrast. 3D rendering (Not supervised by radiologist): MIP and/or 3D reconstructed images were created by the technologist. Radiation optimization: All CT scans at this facility use at least one of these dose optimization techniques: automated exposure control; mA and/or kV adjustment per patient size (includes targeted exams where dose is matched to clinical indication); or iterative reconstruction. Contrast material: VISI 320; Contrast volume: 95 ml; Contrast route: INTRAVENOUS (IV); COMPARISON: CTA Head/Neck [id number] 08/14/2019 2:18 PM RADIATION DOSE METRICS: Total DLP (mGy-cm): 2163.31 FINDINGS: ANTERIOR CIRCULATION: Right internal carotid artery: No stenosis, occlusion or aneurysm. Right middle cerebral artery: No stenosis, occlusion or aneurysm. Right anterior cerebral artery: No stenosis, occlusion or aneurysm. Left internal carotid artery: No stenosis, occlusion or aneurysm. Left middle cerebral artery: No stenosis, occlusion or aneurysm. Left anterior cerebral artery: No stenosis, occlusion or aneurysm. POSTERIOR CIRCULATION: Right vertebral artery: No stenosis, occlusion or aneurysm. Left vertebral artery: Terminates in PICA Basilar artery: No stenosis, occlusion or aneurysm. Right posterior cerebral artery: No stenosis, occlusion or aneurysm. The posterior communicating artery is patent. Left posterior cerebral artery: No stenosis, occlusion or aneurysm. The posterior communicating artery is patent. Brain: No acute brain parenchymal abnormality. Left temporal lobe encephalomalacia from prior infarct. Small chronic appearing right cerebellar infarct. No intracranial hemorrhage. No extraaxial fluid collections. Cerebral ventricles: No hydrocephalus. Bones/joints: No acute osseous abnormality. Soft tissues: No acute soft tissue abnormality. IMPRESSION: No large vessel occlusion. PROCEDURE INFORMATION: Exam: CT Angiography Neck With Contrast Exam date and time: 07/08/2020 1:45 PM Age: 60 years old Clinical indication: Other: Fall, AMS; Additional info: Altered mental status TECHNIQUE: Imaging protocol: Computed tomography angiography of the neck with intravenous contrast. 3D rendering (Not supervised by radiologist): MIP and/or 3D reconstructed images were created by the technologist. Radiation optimization: All CT scans at this facility use at least one of these dose optimization techniques: automated exposure control; mA and/or kV adjustment per patient size (includes targeted exams where dose is matched to clinical indication); or iterative reconstruction. Contrast material: VISI 320; Contrast volume: 95 ml; Contrast route: INTRAVENOUS (IV); COMPARISON: CTA Head/Neck [id number] 08/14/2019 2:18 PM RADIATION DOSE METRICS: Total DLP (mGy-cm): 2163.31 FINDINGS: Right common carotid artery: No stenosis, occlusion or dissection. Right internal carotid artery: Mild eccentric plaque formation in the bulb causing 25% luminal stenosis. Right external carotid artery: No occlusion or stenosis of the origin. Right vertebral artery: No stenosis, occlusion or dissection. Dominant. Left common carotid artery: No stenosis, occlusion or dissection. Left internal carotid artery: Mild eccentric plaque formation in the bulb causing 30% luminal stenosis. Left external carotid artery: No occlusion or stenosis of the origin. Left vertebral artery: No stenosis, occlusion or dissection. Thyroid: Enlarged thyroid with multiple nodules and/or cysts measuring up to 1.6 cm in size. Calcifications in the right lobe. Bones/joints: Multilevel degenerative changes in the cervical spine. Soft tissues: No acute soft tissue abnormality. Lungs: Calcified right upper lobe pulmonary granulomas. CT/CT angio headneck* [id number] IMPRESSION: 1. Mild (25-30%) bilateral proximal ICA stenosis. 2. Multinodular goiter. COMMENTS: Consistent with the [employer]'s Incidental Findings Committee white paper (J Am Kirt Radiol 2015): In patients aged 35 years and older with an incidental thyroid nodule equal to or greater than 1.[address], MRI or extrathyroidal US, further evaluation with dedicated thyroid US is recommended for patients with normal life expectancy and without comorbidities. For smaller nodules without suspicious features, no further evaluation or follow up is recommended. REFERENCES: NASCET CRITERIA. The degree of internal carotid artery stenosis is based on NASCET criteria. Normal is no stenosis. Mild is less than 50% stenosis. Moderate is 50-69% stenosis. Severe is 70% to 99% stenosis. Total occlusion is no detectable patent lumen. Radiation Dose CTDIVOL = (mGy): DLP = 2163.31 2163.31 (mGy-cm) Dictated By: Rafael Zavaleta Signed By: Rafael Zavaleta Signed Date/Time: 07/08/201451 DD/ 49 EKG Data^: EKG 1: Attestation: I personally reviewed and interpreted this EKG as follows: EKG interpretation date: 07/08/20 EKG interpretation time: 12:19 Interpretation: Normal sinus rhythm with a ventricular rate of 87 beats a minute, left axis deviation, right bundle branch block, nonspecific ST and T wave changes. EKG 2: Attestation: I personally reviewed and interpreted this EKG as follows: EKG interpretation date: 07/08/20 EKG interpretation time: 14:31 Interpretation: Sinus tachycardia 100 beats a minute, LVH, right bundle branch block, nonspecific ST and T wave changes. Discharge Plan Discharge Prescriptions: No Action insulin aspart U-100 [Novolog Flexpen U-100 Insulin] 100 unit/mL (3 mL) insulin pen 50 unit SUBCUT TID Qty: 45 RF: 12 hydrochlorothiazide 50 mg tablet 50 mg PO QAM Qty: 90 RF: 3 tramadol 50 mg tablet 50 mg PO Q6H PRN (Reason: pain) Qty: 120 RF: 2 spironolactone 50 mg tablet 50 mg PO QAM 30 Days Qty: 30 RF: 2 duloxetine 60 mg capsule,delayed release(DR/EC) 60 mg PO DAILY Qty: 90 RF: 3 allopurinol 300 mg tablet 300 mg PO DAILY Qty: 90 RF: 0 lisinopril 10 mg tablet 10 mg PO DAILY RF: 0 tizanidine 6 mg capsule 6 mg PO BEDTIME PRN (Reason: muscle spasticity) RF: 0 hydrocodone-acetaminophen 5-325 mg tablet 1 tab PO Q4H PRN (Reason: Pain) RF: 0 atorvastatin 80 mg tablet 80 mg PO DAILY RF: 0 clopidogrel 75 mg tablet 75 mg PO DAILY RF: 0 metoprolol tartrate 25 mg tablet 37.5 mg PO BID RF: 0 Coding Level of Care Code ED [employer] And [employer]ank Department Supervisor for Chg Fwd Exam Comprehensive NIH stroke score NIHSS Level Of Consciousness - 1a: 0 Level Of Consciousness Questions - 1b: Neither Correct Level Of Consciousness Commands - 1c: Both Correct Best Gaze - 2: Normal Visual Camp - 3: No Visual Loss Facial Palsy - 4: Normal Motor Arm Right - 5: No Drift Motor Arm Left - 5: No Drift Motor Leg Right - 6: No Drift Motor Leg Left - 6: No Drift Limb Ataxia - 7: Absent Sensory - 8: Mild To Moderate Loss Best Language - 9: Severe Aphasia Dysarthia - 10: Normal Extinction And Inattention - 11: 0 Score Total Score: 5
[2020-07-08 12:45] LABS: INR 1.04 (0.8-1.2)
[2020-07-08 13:02] LABS: Alanine Aminotransferase 23 U/L (0-33); Albumin Level 3.8 g/dL (3.5-5.2); Alkaline Phosphatase 97 IU/L (35-105); Anion Gap 21.2 (5-19); Aspartate Amino Transferase 21 U/L (0-32); Blood Urea Nitrogen 45 mg/dL (8-23); Calcium 9.7 mg/dL (8.5-10.5); Carbon Dioxide 27 mmol/L (22-29); Chloride 84 mmol/L (98-107); Creatine Phosphokinase 213 U/L (26-192); Globulin 2.5 g/dL (1.3-4.6); Glomerular Filtration Rate 50.7 mL/min (90-130); Magnesium 1.6 mg/dL (1.7-2.3); Osmolality Calculated 303 mOsm/kg (285-295); Potassium 4.2 mmol/L (3.5-5.1); Sodium 128 mmol/L (136-145); Total Bilirubin 0.8 mg/dL (0.15-1.2); Total Protein 6.3 g/dL (6.6-8.7)
[2020-07-08 13:07] LABS: Alcohol Level < 10 mg/dL (0-10); Glucose 563 mg/dL (65-115); Troponin(5th) Baseline 138 ng/L (0-10)
--- NOTE | 2020-07-08 13:52 | ECG_ITS ---
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 Measurements Intervals [place] Rate: 113 P: 30 [place]: 159 QRS: -32 QRSD: 117 T: 59 QT: 357 QTc: 491 Interpretive Statements SINUS TACHYCARDIA LEFT AXIS DEVIATION [QRS AXIS < -30] INCOMPLETE RIGHT BUNDLE BRANCH BLOCK [90+ ms QRS DURATION, TERMINAL R IN V1/V2, 40+ ms S IN I/aVL/V4/V5/V6] LEFT VENTRICULAR HYPERTROPHY AND ST-T CHANGE [VOLTAGE CRITERIA PLUS ST/T ABNORMALITY] ANTEROLATERAL MYOCARDIAL INFARCTION , PROBABLY OLD [40+ ms Q WAVE IN I/aVL/V3-V6] Compared to ECG 07/08/2020 14:31:40 Incomplete right bundle-branch block now present Right bundle-branch block no longer present ST (T wave) deviation still present Myocardial infarct finding still present Electronically Signed On 07-09-2020 19:15:37 COMMERCIAL RELIEF DRIVER by Miguel Zimmer M.D. [id number]
[2020-07-08 13:58] LABS: ABG PCO2 33.9 mmHg (35-45); ABG PH Result 7.52 (7.35-7.45); Base Excess ABG 5.1 mmol/L (-2.0-2.0); Blood Gas Allen Test Pos; Blood Gas Sample Type Arterial; HCO3 ABG 27.8 mmol/L (22-26); PO2 ABG 77.7 mmHg (80.0-100.0)
[2020-07-08 14:16] LABS: Free T4 Free Thyroxine 1.78 ng/dL (0.82-1.77)
[2020-07-08 14:20] LABS: Blood Gas Sample Site Brachial, right
[2020-07-08] MEDS: iodixanol 320 mg/mL 100mL Btl IV (14:22)
[2020-07-08] MEDS: sodium chloride 0.9% 1,000 ML 999 ML IV ×2 (14:43→16:00)
[2020-07-08 14:51] LABS: Ammonia 10 umol/L (11-51); Lactic Sepsis W/Reflex 1.6 mmol/L (0.5-2.2)
[2020-07-08 16:30] LABS: Glucose Point of Care 392 mg/dL (70-110)
--- NOTE | 2020-07-08 17:06 | PM.HP ---
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 Patient during my examination is fairly scattered, it is difficult sometimes to get a straight answer from her, she does go off on quite a few tangents, but with several redirection's you can get an answer from her, sometimes her answers are nonsensical, I can notice some mild slurring of her speech. According to patient, she fell a few days ago, she tripped and fell, she is fairly vague in how this happened, she had right shoulder pain, denies being pushed, denies abuse, sounds like she is lost her balance, no preceding chest pain, no preceding palpitations, no preceding loss of consciousness, no syncope, no presyncope, no seizure-like activities, she had right shoulder pain, she presented the emergency room 07/03/2020 was diagnosed with a right humeral fracture, she was put in a right shoulder immobilizer, given [place], she had a follow-up appointment with the orthopedic physician on Friday. But since then she has fallen again, she is fallen multiple times, she fell again this morning, was falling on the floor for roughly 2 hours, she tells me that she lives with her parents for over 28 years, EMS were called out to her house, found her on the floor, they helped her up and brought her to the emergency room. In the emergency room, currently her only complaint is right shoulder pain, she is able to move the right extremity as best as she can, she fully moves her left upper extremity, moves bilateral lower extremities, no paresthesias, no facial droop, mild slurring of her speech, mild dysphagia, NIH stroke scale according to ER physician was 5, not a TPA candidate, CT of the head did show a old left temporal encephalomalacia, no acute stroke, her blood sugars were in the 500s, creatinine 1.1, her first troponin was 128, ER physician was concerned for the possibility of a stroke, given her aphasia so hospitalist team was called for admission I reviewed patient's chart quite extensively, it seems like back in August 14, 2018, she came in with aphasia, she was diagnosed with a left temporal, left parietal, left occipital CVA, she left AGAINST MEDICAL ADVICE, I was able to speak to patient father and about what happened. They were shocked about this, they deny this ever happening, they are surprised that she had a stroke, but then they tell me that she had speech therapy. Her is quite angry about the care that she is received here at [facility], he tells me that she fell off the stretcher when she was here a year ago, he tells me that he had somebody which sounds like a compensation consulting manager look into her case, but he never called him back. He tells me that he brought her in because she kept falling, and he wants us to keep her here till Friday, so we can figure out what is going on with her. When asked why did he bring her, they are worried about her falls, they are really not worried about her mentation particularly. I went over my physical findings of her scattered mentation, mild slurring difficulty to get an answer from her, they seem to not be concerned. I am not sure if this is chronic for her not? 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 She wants us to get her some help at home. Review of Systems Const: Denies: fever(s), chills, fatigue or malaise Eyes: Denies: change in vision or blurry vision ENMT: Denies: nasal congestion Card: Denies: chest pain, palpitations, irregular heart rhythm, edema, syncope or pre-syncope Resp: Denies: dyspnea, productive cough, non-productive cough or wheezing GI: Denies: abdominal pain, nausea, vomiting, hematemesis, diarrhea, constipation, hematochezia or melena : Denies: flank pain, dysuria or urinary frequency Musc: Denies: neck pain or back pain Skin/Breast: Denies: rash Neuro: Denies: headache(s), dizziness or vertigo Psych: Denies: anxiety or depression Endo: Denies: polyuria or polydipsia Medications/Allergies Home Medications Medication Instructions Recorded Confirmed Last Taken Type insulin aspart U-100 100 unit/mL 50 unit SUBCUT TID #45 ml 11/25/19 07/08/20 07/02/20 Rx (3 mL) subcutaneous pen hydrochlorothiazide 50 mg tablet 50 mg PO QAM #90 tab 01/28/20 07/08/20 07/02/20 Rx spironolactone 50 mg tablet 50 mg PO QAM 30 Days #30 tab 03/27/20 07/08/20 07/02/20 Rx tramadol 50 mg tablet 50 mg PO Q6H PRN #120 tab 03/27/20 07/08/20 Unknown Rx allopurinol 300 mg tablet 300 mg PO DAILY #90 tab 05/03/20 07/08/20 07/02/20 Rx duloxetine 60 mg capsule,delayed 60 mg PO DAILY #90 cap 05/03/20 07/08/20 07/02/20 Rx release lisinopril 10 mg PO DAILY 07/03/20 07/08/20 07/02/20 History tizanidine 6 mg PO BEDTIME PRN 07/03/20 07/08/20 Unknown History atorvastatin 80 mg PO DAILY 07/08/20 07/08/20 Unknown History clopidogrel 75 mg PO DAILY 07/08/20 07/08/20 Unknown History hydrocodone-acetaminophen 1 tab PO Q4H PRN 07/08/20 07/08/20 Unknown History metoprolol tartrate 37.5 mg PO BID 07/08/20 07/08/20 Unknown History Allergies Allergy/AdvReac Type Severity Reaction Status Date / Time clarithromycin [From Biaxin] Allergy nausea Verified 07/08/20 11:59 clindamycin Allergy shock Verified 07/08/20 11:59 diclofenac Allergy swelling Verified 07/08/20 11:59 enalapril Allergy unknown Verified 07/08/20 11:59 ketorolac [From Toradol] Allergy short of Verified 07/08/20 11:59 breath losartan [From Cozaar] Allergy shock Verified 07/08/20 11:59 nifedipine [From Procardia] Allergy hives Verified 07/08/20 11:59 pregabalin [From Lyrica] Allergy unknown Verified 07/08/20 11:59 Sulfa (Sulfonamide Allergy anaphylasix Verified 07/08/20 11:59 Antibiotics) PFSH Acute PFSH: Medical History (Updated 07/08/20 @ 17:41 by Raad Chung MD) Acute hypersomnolence disorder Diabetes mellitus with neuropathy History of CVA (cerebrovascular accident) Mixed hyperlipidemia LEROY on CPAP Surgical History (Updated 07/08/20 @ 17:20 by Raad Chung MD) History of bursectomy History of cholecystectomy History of colonoscopy History of hysterectomy for indication other than malignancy History of nasal sinusotomy History of repair of rotator cuff History of tonsillectomy Hx of adenoidectomy Status post anal fissurectomy Family History (Updated 07/08/20 @ 17:20 by Raad Chung MD) Mother CAD (coronary artery disease) Other Asthma Cancer Diabetes Heart disease Hypertension Stroke Social History Smoking and tobacco status: former smoker Alcohol intake: current Alcohol intake frequency: few times a month History of recent travel: No Vitals/I&O/Wt Last Vital Signs Temp 99.2 F 07/08/20 11:52 Pulse 72 07/08/20 11:52 Resp 16 07/08/20 11:52 BP 145/77 07/08/20 11:52 Pulse Ox 97 07/08/20 11:52 Weight last 48 hrs Weight 99.79 kg Physical Exam Const: COMMON NORMALS: no acute distress GENERAL APPEARANCE: cooperative and comfortable NUTRITIONAL APPEARANCE: obese ORIENTATION/CONSCIOUSNESS: Yes awake, Yes oriented to person and Yes oriented to place; not oriented to time HENMT: COMMON NORMALS: normocephalic HEAD & SCALP: normocephalic Eye: COMMON NORMALS: Equal, round and reactive pupils present and EOMs intact bilaterally GENERAL EYE: appearance normal, both eyes and all related structures PUPIL: Yes Equal, round and reactive pupils present Neck/C-Spine: COMMON NORMALS: full ROM, no lymphadenopathy and no JVD Lymph: LYMPHATIC: no lymphadenopathy noted Chest: COMMONS NORMALS: normal inspection of the chest Resp: COMMON NORMALS: normal respiratory effort, No retractions, No use of accessory muscles and clear to auscultation bilaterally AUSCULTATION: clear to auscultation bilaterally Cardio: COMMON NORMALS: no JVD, regular rate, regular rhythm, S1 normal heart sound present, S2 normal heart sound present, No gallops present (Cardio), No clicks present (Cardio) and No murmurs present (Cardio) RATE: regular rate RHYTHM: regular rhythm HEART SOUNDS: S1 normal heart sound present and S2 normal heart sound present GI: COMMON NORMALS: Normal to inspection, nondistended, normoactive bowel sounds present, Soft to palpation, non-tender and No hepatosplenomegaly present PALPATION: Yes Soft to palpation and Yes No hepatosplenomegaly present Extremity: COMMON NORMALS: normal to inspection NARRATIVE EXTREMITY EXAM: Right shoulder, decreased range of motion, does have significant bruising over right shoulder and right biceps Neuro: COMMON NORMALS: CN's II-XII intact bilaterally, moves all extremities and no focal motor deficits SENSORIUM/ORIENTATION: Yes alert, Yes oriented to person, Yes oriented to place and No oriented to time SPEECH: abnormal speech (Some mild slurring of her speech at the end of sentences) MOTOR EXAM: 5/5 motor strength present throughout COORDINATION: [id number] test abnormal Psych: COMMON NORMALS: cooperative APPEARANCE: Yes unkempt ATTITUDE: Yes bizarre ACTIVITY/MOTOR BEHAVIOR: Yes fidgeting SPEECH: Yes excessive and Yes rapid MOOD & AFFECT: Yes Flat affect present THOUGHT PROCESS: Circumstantial thought process present, incoherent, disorganized, Confabulating thought process present, Flight of ideas present, Illogical thought process present and Loose association thought process present ATTENTION/CONCENTRATION: Yes concentration grossly intact, Yes attention grossly impaired and Yes concentration grossly impaired MEMORY/COGNITION: Yes memory grossly impaired and Yes cognition grossly impaired Data : 07/08/20 11:32 07/08/20 11:32 Micro: Microbiology 07/08/20 14:03 Blood Culture - Preliminary Blood SPECIMEN COLLECTED A&P Assessment and plan (1) Altered mental status: -Etiology unclear at this point -Her speech is quite pressured, tangential, flight of ideas, scattered, nonsensical at times -Chest x-ray no focal pneumonia -Head CT no acute stroke, does have a left temporal lobe encephalomalacia from prior infarct, chronic appearing small right cerebellar infarct -CT scan on prior admission 08/14/2020 showed edema and loss of cameron-white differentiation in the left temporal, parietal, occipital lobes consistent with acute to subacute infarct -CTA of the head and neck shows no large vessel occlusion,, chronic appearing right cerebellar infarct, left temporal lobe encephalomalacia from prior infarct, right internal carotid artery mild eccentric plaque formation in the bulb causing 25% luminal stenosis, left internal carotid artery mild eccentric plaque formation in the bulb causing 30% luminal stenosis -UA is pending at this point -Does have a multinodular goiter on imaging -Baseline troponin 138, 120-minute 107.8 -Pseudohyponatremia 120, secondary to blood sugar 563, repeat blood sugar 380 PLAN: -Admit to general medical floors -Full code -Full dose Lovenox prophylaxis for possible atrial fibrillation, will need to discuss long-term anticoagulation with neurology -Based upon above findings, I am highly suspicious for atrial fibrillation events causing recurrent strokes -currently I am highly suspicious that maybe she has developed a new stroke in the right cerebellum, that is why she has been unsteady for the last few weeks, and that is why she has recurrently falling for the last few weeks, her [id number] is grossly abnormal -Although the EKG shows no atrial fibrillation, -Thus for now I will treat her like she has had a stroke -Continue Plavix 75 mg daily, continue atorvastatin 80 mg, has an aspirin allergy swelling, patient cannot confirm this, will add full dose Lovenox -Allow for permissive hypertension for the next 48 hours -Neurochecks -Swallow eval -Speech therapy eval -Physical therapy -Cardiac echocardiogram -We will order an MRI of her brain -Will need to follow-up with neurology, cardiology -Possibly will require senior living placement Status: Acute (2) Fracture, humerus closed: I spoke to orthopedic team, Dr. Wood, advised to keep patient in a sling, follow-up as outpatient, no plans on urgent surgery Status: Acute Qualifiers: Encounter type: initial encounter Fracture alignment: nondisplaced Fracture morphology: 2-part Humerus Location: surgical neck Laterality: right Qualified Code(s): S42.224A - 2-part nondisplaced fracture of surgical neck of right humerus, initial encounter for closed fracture (3) Essential hypertension: Status: Acute (4) Diabetes mellitus with neuropathy: -Hemoglobin A1c is 13 -Recheck hemoglobin A1c -Patient and family are not sure how much insulin she is shaking, patient cannot really provide me a definitive answer -For now we will start her on high-dose sliding scale -Levemir 10 units twice daily Status: Acute Qualifiers: Diabetes mellitus type: type 2 Diabetes mellitus form maker plaster insulin use: with detention use Qualified Code(s): E11.40 - Type 2 diabetes mellitus with diabetic neuropathy, unspecified; Z79.4 - technology teacher (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) use of insulin (5) Mixed hyperlipidemia: Morning lipid panel Status: Acute (6) History of CVA (cerebrovascular accident): Status: Acute (7) Hyperglycemia: -Blood sugars in the 500s in the ER, ketones was positive, anion gap 21, however pH is 7.5 -She did get 10 units of regular insulin, blood sugar be down to the 380s -High-dose sliding scale, Levemir 10 units twice daily -Monitor blood sugars closely Status: Acute (8) Recurrent falls: -Likely related to cerebellar stroke, needs PT OT Status: Acute (9) NSTEMI (non-ST elevated myocardial infarction): -Baseline troponin 138, 120-minute 107.8, delta 30.2 -EKG shows sinus tachycardia, left axis deviation, right bundle branch block, lateral myocardial infarct -No complaints of chest pain, palpitations, shortness of breath -She had a stress test on 09/2013 which showed perfusion scan is negative for ischemia or myocardial infarct, low probability for obstructive CAD -Echocardiogram shows an EF of 61%, no regional wall motion abnormalities, PLAN: -Telemetry monitoring -Serial EKGs, serial troponins -Monitor for chest pain -Plavix, statin -Order cardiac echocardiogram -Therapeutic Lovenox Status: Acute (10) DELORIS (acute kidney injury): Creatinine 1.1, IV hydration Status: Acute (11) Acute embolic stroke: Status: Acute Attestations Medical Necessity Statement*: Patient requires hospitalization, inpatient, greater than 2 midnights for altered mental status secondary to acute embolic stroke, recurrent falls, NSTEMI, DELORIS Coding Level of Care Code Acute Business Continuity Planning Director for [facility] Diagnoses Altered mental status R41.82 Fracture, humerus closed S42.224A Encounter type: initial encounter Fracture alignment: nondisplaced Fracture morphology: 2-part Humerus Location: surgical neck Laterality: right Essential hypertension I10 Diabetes mellitus with neuropathy E11.40; Z79.4 Diabetes mellitus type: type 2 Diabetes mellitus form maker plaster insulin use: with detention use Mixed hyperlipidemia E78.2 History of CVA (cerebrovascular accident) Z86.73 Hyperglycemia R73.9 Recurrent falls R29.6 NSTEMI (non-ST elevated myocardial infarction) I21.4 DELORIS (acute kidney injury) N17.9 Acute embolic stroke I63.9
[2020-07-08 17:18] LABS: Troponin 5 2HR Delta -30.2 ABS# (0-10)
[2020-07-08 17:21] LABS: Troponin 5 2HR 107.8 ng/L (0-10)
[2020-07-08] MEDS: sodium chloride 0.9% 1,000 ML 100 ML IV (17:30)
[2020-07-08 17:33] LABS: Add Urine Culture? No; Bacteria Urine TRACE /hpf; Bilirubin Urine Neg (Negative); Blood Urine Neg (Negative); Glucose Urine UA 4+ (Normal); Ketones Urine 1+ (Negative); Leukocyte Esterase Urine Negative (Negative); Nitrate Urine Negative (Negative); Protein Urine Neg (Negative); Specific Gravity, Urine 1.005 (1.005-1.030); Urine Appearance Clear (CLEAR); Urine Color Colorless (Yellow); Urobilinogen Urine Norm (Negative); pH Urine 7 (5-7)
--- NOTE | 2020-07-08 17:52 | ECG_ITS ---
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 Measurements Intervals [place] Rate: 100 P: 25 [place]: 152 QRS: -37 QRSD: 122 T: 75 QT: 368 QTc: 476 Interpretive Statements SINUS TACHYCARDIA LEFT AXIS DEVIATION [QRS AXIS < -30] RIGHT BUNDLE BRANCH BLOCK [120+ ms QRS DURATION, UPRIGHT V1, 40+ ms S IN I/aVL/V4/V5/V6] LEFT VENTRICULAR HYPERTROPHY AND ST-T CHANGE [VOLTAGE CRITERIA PLUS ST/T ABNORMALITY] LATERAL MYOCARDIAL INFARCTION , OF INDETERMINATE AGE [40+ ms Q WAVE AND/OR ST/T ABNORMALITY IN I/aVL/V5/V6] Compared to ECG 07/08/2020 12:19:04 Sinus rhythm no longer present ST (T wave) deviation still present Myocardial infarct finding still present Electronically Signed On 07-09-2020 19:18:11 GENERAL SCRAP WORKER by Miguel Zimmer M.D. [id number]
[2020-07-08 18:27] VITALS: RESP 18; O2SAT 98
[2020-07-08] MEDS: ondansetron 2 mg/ML SDV 2 mL 4 MG IVP (18:27)
[2020-07-08] MEDS: morphine 4 mg/mL SDV 1 mL 2 MG IVP (18:27)
[2020-07-08 18:51] VITALS: BP 126/79; PULSE 58; RESP 18; O2SAT 93
[2020-07-08 20:03] VITALS: BP 143/80; PULSE 116; RESP 17; TEMP 37.2; O2SAT 98
[2020-07-08 20:51] VITALS: BP 139/81; PULSE 75; RESP 16; TEMP 37.4; O2SAT 95
[2020-07-08 20:53] LABS: Glucose Point of Care 453 mg/dL (70-110)
[2020-07-08] MEDS: enoxaparin 100 mg/mL Syringe SUBCUT (21:27)
[2020-07-08] MEDS: metoprolol tartrate 25 mg Tablet 37.5 MG PO (21:30)
[2020-07-08] MEDS: cefTRIAXone 1,000 MG in sodium chloride 0.9% (plus) 50 ML 100 MG IV (21:37)
[2020-07-08] MEDS: sodium chloride 0.9% 1,000 ML 75 ML IV (21:38)
[2020-07-08 23:19] LABS: Estmated Average Glucose 301; Hemoglobin A1C 12.1 % (4.0-6.0)
[2020-07-09] VITALS (10 sets, daily range): BP systolic 119–167; BP diastolic 72–88; PULSE 68–113; RESP 16–19; TEMP 36.6–37.1; O2SAT 94–100
[2020-07-09] MEDS: hydroCHLOROthiazide 25 mg Tablet 50 MG PO (05:52)
[2020-07-09 07:09] LABS: Glucose Point of Care 329 mg/dL (70-110)
[2020-07-09 07:54] LABS: Basophils # 0.1 10^3/uL (0.0-0.1); Basophils % 0.8 %; Eosinophils # 0.1 10^3/uL (0.0-0.8); Hematocrit 34.4 % (37.0-47.0); Hemoglobin 10.7 g/dL (11.5-15.3); Lymphocytes # 2.1 10^3/uL (0.8-4.8); Lymphocytes % 21.5 %; Mean Corpuscular HGB Conc 31.1 g/dL (30.0-36.0); Mean Corpuscular Volume 90.1 fL (81-99); Mean Platelet Volume 10.1 fL (7.4-10.4); Monocytes # 0.8 10^3/uL (0.2-0.9); Neutrophils # 6.55 10^3/uL (1.8-7.7); Neutrophils % 68.5 %; Nucleated Red Blood Cells % 0 %; Platelet Count 378 10^3/cmm (130-400); Red Blood Count 3.82 10^6/uL (4.1-5.3); Red Cell Distribution Width 13.2 % (12.1-15.1); White Blood Count 9.6 10^3/uL (4.0-10.0)
[2020-07-09] MEDS: clopidogrel 75 mg Tablet PO (08:16)
[2020-07-09] MEDS: pantoprazole DR 40 mg Tablet PO (08:16)
[2020-07-09] MEDS: allopurinol 300 mg Tablet PO (08:16)
[2020-07-09 08:17] LABS: Alanine Aminotransferase 17 U/L (0-33); Albumin Level 3.1 g/dL (3.5-5.2); Alkaline Phosphatase 75 IU/L (35-105); Aspartate Amino Transferase 17 U/L (0-32); Blood Urea Nitrogen 23 mg/dL (8-23); Carbon Dioxide 25 mmol/L (22-29); Chloride 97 mmol/L (98-107); Glomerular Filtration Rate 73.2 mL/min (90-130); Glucose 320 mg/dL (65-115); Magnesium 1.6 mg/dL (1.7-2.3); Osmolality Calculated 296 mOsm/kg (285-295); Sodium 135 mmol/L (136-145); Total Bilirubin 0.4 mg/dL (0.15-1.2); Total Protein 6.1 g/dL (6.6-8.7)
[2020-07-09] MEDS: enoxaparin 100 mg/mL Syringe SUBCUT ×2 (08:17→21:07)
[2020-07-09] MEDS: atorvastatin 40 mg Tablet 80 MG PO (08:17)
[2020-07-09] MEDS: metoprolol tartrate 25 mg Tablet 37.5 MG PO ×2 (08:17→17:48)
[2020-07-09 08:23] LABS: Thyroid Stimulating Hormone 0.55 uIU/mL (0.27-4.20)
[2020-07-09 08:24] LABS: Procalcitonin 0.17 ng/mL (0-0.5)
[2020-07-09 08:34] LABS: Chol HDL Ratio 4.62 mg/dL (0.0-4.40); Cholesterol 157 mg/dL (0-200); HDL Cholesterol 34 mg/dL (60-100); LDL Cholesterol Calculated 79 mg/dL (50-129); LDL HDL Ratio 2.32 RATIO (0.00-3.22); Triglycerides 222 mg/dL (0-150)
--- NOTE | 2020-07-09 09:48 | PC.OT ---
Addendum entered by Ritu Otero OT 07/09/20 12:23: Physician requested, per nursing, that eval be completed today. Original Note: Occupational Therapy Evaluation held due to lab levels outside safe parameters.
[2020-07-09 11:02] LABS: Glucose Point of Care 370 mg/dL (70-110)
[2020-07-09] MEDS: sodium chloride 0.9% 1,000 ML 75 ML IV (11:14)
[2020-07-09] MEDS: magnesium oxide 400 mg tablet PO ×2 (11:14→17:48)
--- NOTE | 2020-07-09 14:41 | PM.PN ---
Subjective Subjective: Interval history: This morning patient was examined in her room, she is sleeping, snoring, when I wake her, she states that she want to go back to sleep, is difficult to try to get her to stay awake, she is on room air, saturating high 90s, blood pressures within normal limits, finally she is willing to arouse, still a bit scattered, but denies chest pain, denies shortness of breath, denies fevers, denies chills, when I tell her that she is had a cerebellar stroke, she is a bit shocked, she says again? I tell her this is why she is quite unsteady on her feet, she tells me that her right shoulder is hurting her, she ate all her breakfast,, mild slurring of her speech, overall doing better Vitals/I&O/Wt Last Vital Signs Temp 98.0 F 07/09/20 12:00 Pulse 73 07/09/20 12:00 Resp 16 07/09/20 12:00 BP 130/88 07/09/20 12:00 Pulse Ox 95 07/09/20 12:00 07/08/20 07/09/20 07/09/20 22:59 06:59 14:59 Intake Total 1000 / 1000 105 / 1105 1600 / 1600 Output Total 1000 / 1000 Balance 1000 / 1000 -895 / 105 1600 / 1600 Weight last 48 hrs Weight 99.79 kg Physical Exam Const: COMMON NORMALS: no acute distress ORIENTATION/CONSCIOUSNESS: Yes awake, Yes oriented to person and Yes oriented to place; not oriented to time HENMT: COMMON NORMALS: normocephalic HEAD & SCALP: normocephalic Neck/C-Spine: COMMON NORMALS: no JVD Resp: COMMON NORMALS: normal respiratory effort, No retractions, No use of accessory muscles and clear to auscultation bilaterally AUSCULTATION: clear to auscultation bilaterally Cardio: COMMON NORMALS: no JVD, regular rate, regular rhythm, S1 normal heart sound present and S2 normal heart sound present RATE: regular rate RHYTHM: regular rhythm HEART SOUNDS: S1 normal heart sound present and S2 normal heart sound present GI: COMMON NORMALS: Normal to inspection, nondistended, normoactive bowel sounds present, Soft to palpation, non-tender, No hepatosplenomegaly present, no masses and no bruits PALPATION: Yes Soft to palpation and Yes No hepatosplenomegaly present Extremity: COMMON NORMALS: capillary refill normal, no clubbing, cyanosis or edema, no calf tenderness and no pedal edema NARRATIVE EXTREMITY EXAM: Right shoulder in a sling, biceps bruising Neuro: SENSORIUM/ORIENTATION: Yes oriented to person, Yes oriented to place and No oriented to time Psych: COMMON NORMALS: mental status grossly normal SPEECH: Yes rapid MOOD & AFFECT: Yes Flat affect present THOUGHT PROCESS: Circumstantial thought process present, Confabulating thought process present and Loose association thought process present ATTENTION/CONCENTRATION: Yes concentration grossly intact, Yes attention grossly impaired and Yes concentration grossly impaired MEMORY/COGNITION: Yes memory grossly impaired Urinary Catheter Management^: [place]: Cath Placed During This Visit: yes Urinary Catheter Date of Insertion: 07/08/20 Urinary Catheter Time of Insertion: 18:03 Data : 07/09/20 07:25 07/09/20 07:25 Micro: Microbiology 07/08/20 14:03 Blood Culture - Preliminary Blood Gram positive cocci 07/09/20 07:25 Blood Culture - Preliminary Blood SPECIMEN COLLECTED A&P Assessment and plan (1) Altered mental status: -Etiology unclear at this point -Her speech is quite pressured, tangential, flight of ideas, scattered, nonsensical at times -Chest x-ray no focal pneumonia -Head CT no acute stroke, does have a left temporal lobe encephalomalacia from prior infarct, chronic appearing small right cerebellar infarct -CT scan on prior admission 08/14/2020 showed edema and loss of cameron-white differentiation in the left temporal, parietal, occipital lobes consistent with acute to subacute infarct -CTA of the head and neck shows no large vessel occlusion,, chronic appearing right cerebellar infarct, left temporal lobe encephalomalacia from prior infarct, right internal carotid artery mild eccentric plaque formation in the bulb causing 25% luminal stenosis, left internal carotid artery mild eccentric plaque formation in the bulb causing 30% luminal stenosis -UA is pending at this point -Does have a multinodular goiter on imaging -Baseline troponin 138, 120-minute 107.8, left ventricular systolic function 55 to 60%, regional wall motion abnormalities cannot be assessed, diastolic function normal -Pseudohyponatremia 120, secondary to blood sugar 563, repeat blood sugar 380 PLAN: -Admit to general medical floors -Full code -Keppra 500 mg twice daily was started for possible seizure episodes related to a left temporal encephalomalacia, as a possible etiology to her altered mental status, her speech seems less slurred, she is less scattered, less fidgeting, makes more sense today, would benefit from EEG, EEG ordered -Full dose Lovenox prophylaxis for possible atrial fibrillation, will need to discuss long-term anticoagulation with neurology -Based upon above findings, I am highly suspicious for atrial fibrillation events causing recurrent strokes -currently I am highly suspicious that maybe she has developed a new stroke in the right cerebellum, that is why she has been unsteady for the last few weeks, and that is why she has recurrently falling for the last few weeks, her [id number] was grossly abnormal -Although the EKG shows no atrial fibrillation, continue telemetry monitoring -Thus for now I will treat her like she has had a stroke -Continue Plavix 75 mg daily, continue atorvastatin 80 mg, has an aspirin allergy swelling, patient cannot confirm this, will add full dose Lovenox -Allow for permissive hypertension for the next 48 hours -Neurochecks -Swallow eval, passed -Speech therapy eval -Physical therapy -We will order an MRI of her brain -Will need to follow-up with neurology, cardiology -Possibly will require intermediate placement Status: Acute (2) Fracture, humerus closed: I spoke to orthopedic team, Dr. Wood, advised to keep patient in a sling, follow-up as outpatient, no plans on urgent surgery, continue right arm in a sling Status: Acute Qualifiers: Encounter type: initial encounter Fracture alignment: nondisplaced Fracture morphology: 2-part Humerus Location: surgical neck Laterality: right Qualified Code(s): S42.224A - 2-part nondisplaced fracture of surgical neck of right humerus, initial encounter for closed fracture (3) Essential hypertension: Status: Acute (4) Diabetes mellitus with neuropathy: -Hemoglobin A1c is 13 -Recheck hemoglobin A1c -Patient and family are not sure how much insulin she is shaking, patient cannot really provide me a definitive answer -For now we will start her on high-dose sliding scale -Levemir 10 units twice daily Status: Acute Qualifiers: Diabetes mellitus type: type 2 Diabetes mellitus termite treater insulin use: with termite treater use Qualified Code(s): E11.40 - Type 2 diabetes mellitus with diabetic neuropathy, unspecified; Z79.4 - buttermaker 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 churn (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) use of insulin (5) Mixed hyperlipidemia: Morning lipid panel Status: Acute (6) History of CVA (cerebrovascular accident): Status: Acute (7) Hyperglycemia: -Blood sugars in the 500s in the ER, ketones was positive, anion gap 21, however pH is 7.5 -She did get 10 units of regular insulin, blood sugar be down to the 380s -High-dose sliding scale, Levemir 10 units twice daily -Monitor blood sugars closely Status: Acute (8) Recurrent falls: -Likely related to cerebellar stroke, needs PT OT Status: Acute (9) NSTEMI (non-ST elevated myocardial infarction): -Baseline troponin 138, 120-minute 107.8, delta 30.2 -EKG shows sinus tachycardia, left axis deviation, right bundle branch block, lateral myocardial infarct -No complaints of chest pain, palpitations, shortness of breath -She had a stress test on 09/2013 which showed perfusion scan is negative for ischemia or myocardial infarct, low probability for obstructive CAD -Echocardiogram shows an EF of 61%, no regional wall motion abnormalities, PLAN: -Telemetry monitoring -Serial EKGs, serial troponins -Monitor for chest pain -Plavix, statin -Echocardiogram shows EF of 55 to 60%, -Therapeutic Lovenox Status: Acute (10) DELORIS (acute kidney injury): Creatinine 1.1, IV hydration Status: Acute (11) Acute embolic stroke: Status: Acute (12) Multinodular thyroid: 1. In the superior pole of the right thyroid lobe there is a moderately suspicious 1.3 x 1.2 x 1.2 cm hypoechoic nodule. Serial follow-up ultrasound scans are advised in 1, 2, 3 and 5 years. 2. There are multiple low suspicion probably benign cysts in both thyroid lobes. -Will require outpatient follow-up with ENT, possible biopsy, TSH 0.55 Status: Acute Attestations Medical Necessity Statement*: Patient requires hospitalization, for altered mental status, concerns for embolic stroke, Coding Level of Care Code Acute Cardiovascular Lab Director for [facility] Fwd Diagnoses Altered mental status R41.82 Fracture, humerus closed S42.224A Encounter type: initial encounter Fracture alignment: nondisplaced Fracture morphology: 2-part Humerus Location: surgical neck Laterality: right Essential hypertension I10 Diabetes mellitus with neuropathy E11.40; Z79.4 Diabetes mellitus type: type 2 Diabetes mellitus intermediate insulin use: with termite treater use Mixed hyperlipidemia E78.2 History of CVA (cerebrovascular accident) Z86.73 Hyperglycemia R73.9 Recurrent falls R29.6 NSTEMI (non-ST elevated myocardial infarction) I21.4 DELORIS (acute kidney injury) N17.9 Acute embolic stroke I63.9 Multinodular thyroid E04.2
[2020-07-09 17:17] LABS: Glucose Point of Care 369 mg/dL (70-110)
--- NOTE | 2020-07-09 20:51 | USCV_ITS ---
Hilda Wallace Age: 60 Gender: F : 1960 Exam Date: 07/09/2020 06:40 Ordering Phys: Raad Chung MD Technologist: Shayy Rodriguez Exam Location: [facility] – [place] Indication: NSTEMI BP: 161 / 86 HR: 80 Rhythm: Sinus Technical Quality: Technically difficult study MEASUREMENTS (Male / Female) Normal Values 2D ECHO LV Diastolic Diameter PLAX 4.0 cm 4.2 - 5.9 / 3.9 - 5.3 cm LV Systolic Diameter PLAX 2.4 cm LV Chamber Size 3.6 cm IVS Diastolic Thickness 1.6 cm 0.6 - 1.0 / 0.6 - 0.9 cm IVS Systolic Thickness 1.8 cm LVPW Diastolic Thickness 0.8 cm 0.6 - 1.0 / 0.6 - 0.9 cm LVPW Systolic Thickness 1.4 cm RV Chamber Size 1.9 cm LVOT Diameter 1.9 cm LV Ejection Fraction 2D Teich 73.0 % LA Diameter 3.8 cm LA Width 2.9 cm LA Height 6.7 cm RA Width 2.6 cm RA Height 4.7 cm Aorta at Sinotubular Diameter 2.3 cm M-MODE LV Diastolic Diameter MM 4.9 cm 4.2 - 5.9 / 3.9 - 5.3 cm LV Systolic Diameter MM 3.2 cm LV Ejection Fraction MM Teich 63.8 % IVS Diastolic Thickness MM 0.9 cm 0.6 - 1.0 / 0.6 - 0.9 cm IVS Systolic Thickness MM 1.3 cm LVPW Diastolic Thickness MM 1.4 cm 0.6 - 1.0 / 0.6 - 0.9 cm LVPW Systolic Thickness MM 1.8 cm RV Diastolic Diameter MM 1.3 cm Aortic Annulus Diameter 2.8 cm LA Ao Ratio MM 1.7 DOPPLER AV Peak Velocity 174.0 cm/s LVOT Peak Velocity 151.0 cm/s AV Area Cont Eq vti 2.6 cm squared AV Area Cont Eq pk 2.5 cm squared MV Area PHT 3.9 cm squared Mitral E to A Ratio 1.0 MV E' Velocity 79.5 cm/s Mitral E to MV E' Ratio 20.7 Mitral E to LV E' Lateral Ratio 18.9 Mitral E to LV E' Septal Ratio 22.9 TV Peak E Velocity 70.0 cm/s Right Atrial Pressure 3.0 mmHg PV Peak Velocity 101.0 cm/s RV Acceleration Time 0.1 s RV Ejection Time 0.3 s RV AcT/ET 0.3 FINDINGS Left Ventricle Normal left ventricular size and systolic function. Regional wall motion abnormalities cannot be assessed because of limited visualization. LVEF is 55 to 60%. Normal left ventricular wall thickness. Normal diastolic filling pattern. Right Ventricle The right ventricle is normal in size and function. Right Atrium Not well-visualized Left Atrium Not well-visualized Mitral Valve Mitral annular calcification is noted.. There is no mitral regurgitation. Aortic Valve Not well-visualized. No significant aortic stenosis is noted. There is no aortic regurgitation. Tricuspid Valve Structurally normal tricuspid valve without significant stenosis or regurgitation. Insufficient TR jet to calculate RVSP. Pulmonic Valve Not well-visualized Pericardium Normal pericardium without effusion. Aorta Normal ascending aorta dimension. CONCLUSIONS This is a limited quality echocardiogram. Normal LV systolic function with EF of 55 to 60%. Regional wall motion abnormalities cannot be assessed because of limited visualization. Diastolic function is normal. Limited visualization of valvular structures however no significant valvular heart disease is noted. Compared to prior study from 10/12/2013, no significant changes are noted. Miguel Zimmer MD (Electronically Signed) Final Date: 09 July 2020 13:16 S
--- NOTE | 2020-07-09 20:51 | USR_ITS ---
PROCEDURE INFORMATION: Exam: US Soft Tissue Head and Neck, Thyroid Exam date and time: 07/09/2020 8:11 AM Age: 60 years old Clinical indication: Abnormal findings; Abnormal radiologic study of neck; Additional info: Multinodule goiter TECHNIQUE: Imaging protocol: Real-time ultrasound scan of the neck with image documentation. Exam focused on the thyroid. COMPARISON: CT angio headneck* [id number] 07/08/2020 2:11 PM FINDINGS: Right thyroid lobe: The right thyroid lobe measures 5.6 x 2.3 by 2.0 cm in diameter. It has a lobulated contour. Numerous fairly well-defined cysts are present. Some of this is contains small calcifications. In the superior portion of the right thyroid lobe there is a 1.3 x 1.2 x 1.2 cm hypoechoic nodule. This has moderately suspicious characteristics. Serial follow-up ultrasound scans are advised in 1, 2, 3, and 5 years. Left thyroid lobe: The left thyroid lobe measures 4.7 x 1.7 x 2.3 cm. It has a lobulated contour. It contains multiple fairly well-defined cysts. Some contain small calcifications. These are low suspicion. No suspicious solid masses are seen in the left lobe. Isthmus: No nodules. US/US thyroid [id number] IMPRESSION: 1. In the superior pole of the right thyroid lobe there is a moderately suspicious 1.3 x 1.2 x 1.2 cm hypoechoic nodule. Serial follow-up ultrasound scans are advised in 1, 2, 3 and 5 years. 2. There are multiple low suspicion probably benign cysts in both thyroid lobes.
[2020-07-09] MEDS: levETIRAcetam 500 mg Tablet PO (21:06)
[2020-07-09] MEDS: cefTRIAXone 1,000 MG in sodium chloride 0.9% (plus) 50 ML 100 MG IV (21:06)
[2020-07-09 21:15] LABS: Glucose Point of Care 475 mg/dL (70-110)
[2020-07-09 21:15] LABS: Glucose Point of Care 443 mg/dL (70-110)
[2020-07-09] MEDS: morphine 4 mg/mL SDV 1 mL 2 MG IVP (23:35)
[2020-07-10] VITALS (8 sets, daily range): BP systolic 126–174; BP diastolic 75–81; PULSE 74–99; RESP 16–18; TEMP 36.5–37.1; O2SAT 95–99
[2020-07-10 05:39] LABS: INR 1.06 (0.8-1.2)
[2020-07-10 05:49] LABS: Basophils # 0.1 10^3/uL (0.0-0.1); Basophils % 0.8 %; Eosinophils # 0.3 10^3/uL (0.0-0.8); Eosinophils % 3.2 %; Hematocrit 32.1 % (37.0-47.0); Lymphocytes # 2.6 10^3/uL (0.8-4.8); Lymphocytes % 30.1 %; Mean Corpuscular HGB Conc 31.2 g/dL (30.0-36.0); Mean Corpuscular Hemoglobin 28.2 pg (28.0-34.0); Mean Corpuscular Volume 90.4 fL (81-99); Mean Platelet Volume 10.3 fL (7.4-10.4); Monocytes # 0.7 10^3/uL (0.2-0.9); Monocytes % 8.5 %; Neutrophils # 4.96 10^3/uL (1.8-7.7); Neutrophils % 57.2 %; Nucleated Red Blood Cells % 0 %; Platelet Count 335 10^3/cmm (130-400); Red Blood Count 3.55 10^6/uL (4.1-5.3); Red Cell Distribution Width 13.1 % (12.1-15.1); White Blood Count 8.7 10^3/uL (4.0-10.0)
[2020-07-10 06:13] LABS: Alanine Aminotransferase 17 U/L (0-33); Albumin Level 3.2 g/dL (3.5-5.2); Alkaline Phosphatase 74 IU/L (35-105); Aspartate Amino Transferase 18 U/L (0-32); Blood Urea Nitrogen 20 mg/dL (8-23); Calcium 9.1 mg/dL (8.5-10.5); Carbon Dioxide 27 mmol/L (22-29); Chloride 98 mmol/L (98-107); Globulin 2.7 g/dL (1.3-4.6); Glomerular Filtration Rate 73.2 mL/min (90-130); Glucose 423 mg/dL (65-115); Magnesium 1.6 mg/dL (1.7-2.3); Osmolality Calculated 303 mOsm/kg (285-295); Phosphorus 3.4 mg/dL (2.5-4.5); Sodium 136 mmol/L (136-145); Total Bilirubin 0.3 mg/dL (0.15-1.2); Total Protein 5.9 g/dL (6.6-8.7)
[2020-07-10] MEDS: hydroCHLOROthiazide 25 mg Tablet 50 MG PO (06:13)
[2020-07-10 06:14] LABS: Anion Gap 15.1 (5-19); Potassium 4.1 mmol/L (3.5-5.1)
[2020-07-10 06:55] LABS: Glucose Point of Care 366 mg/dL (70-110)
[2020-07-10] MEDS: atorvastatin 40 mg Tablet 80 MG PO (08:53)
[2020-07-10] MEDS: pantoprazole DR 40 mg Tablet PO (08:53)
[2020-07-10] MEDS: magnesium oxide 400 mg tablet PO (08:53)
[2020-07-10] MEDS: allopurinol 300 mg Tablet PO (08:53)
[2020-07-10] MEDS: metoprolol tartrate 25 mg Tablet 37.5 MG PO (08:54)
[2020-07-10] MEDS: levETIRAcetam 500 mg Tablet PO (08:54)
[2020-07-10] MEDS: clopidogrel 75 mg Tablet PO (08:54)
[2020-07-10] MEDS: enoxaparin 100 mg/mL Syringe SUBCUT (08:55)
[2020-07-10 12:23] LABS: Glucose Point of Care 389 mg/dL (70-110)
--- NOTE | 2020-07-10 13:05 | P.DS_ITS ---
Discharge Providers Date of Admission: 07/08/20 17:05 Date of Discharge: July 10, 2020 Attending Provider at Admission: Raad Chung MD Attending Provider at Discharge: Patel Jones MD Primary Care Provider: Neftaly Brambila MD Diagnoses at Discharge Discharge Diagnosis (1) Altered mental status: Status: Acute (2) Fracture, humerus closed: Status: Acute Qualifiers: Encounter type: initial encounter Fracture alignment: nondisplaced Fracture morphology: 2-part Humerus Location: surgical neck Laterality: right Qualified Code(s): S42.224A - 2-part nondisplaced fracture of surgical neck of right humerus, initial encounter for closed fracture (3) Essential hypertension: Status: Acute (4) Diabetes mellitus with neuropathy: Status: Acute Qualifiers: Diabetes mellitus director long term care insulin use: with director long term care use Diabetes mellitus type: type 2 Qualified Code(s): E11.40 - Type 2 diabetes mellitus with diabetic neuropathy, unspecified; Z79.4 - ocean transportation intermediary (current) use of insulin (5) Mixed hyperlipidemia: Status: Acute (6) History of CVA (cerebrovascular accident): Status: Acute (7) Hyperglycemia: Status: Acute (8) Recurrent falls: Status: Acute (9) NSTEMI (non-ST elevated myocardial infarction): Status: Acute (10) DELORIS (acute kidney injury): Status: Acute (11) Acute embolic stroke: Status: Acute (12) Multinodular thyroid: Status: Acute Reason for Visit Reason for Visit: CONFUSION; HEAD AND ARM PAIN S/P FALL Hospital Course Hospital Course Hilda Wallace is a 60 year old female with a past medical history of left temporal, left parietal, 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 On presentation to the hospital patient was confused, had tangential started thoughts with mild slurring of speech. Blood work done in the ER showed uncontrolled hyperglycemia with a sugar of 563, DELORIS with creatinine of 1.1 and thrombocytosis with platelet count of 409. CTA of the head and neck shows no large vessel occlusion,, chronic appearing right cerebellar infarct, left temporal lobe encephalomalacia from prior infarct, right internal carotid artery mild eccentric plaque formation in the bulb causing 25% luminal stenosis, left internal carotid artery mild eccentric plaque formation in the bulb causing 30% luminal stenosis. Patient was admitted to the hospital with telemetry with concerns for possible embolic stroke. He was continued on home dose of Plavix and statin though aspirin could not be added because of documented allergy. She was started on full dose Lovenox. She was also started on antiepileptic medication with Ummra for concern of seizure and patient's confusion was thought to be post ictal. Patient responded well to the treatment and her mentation improved she worked well with physical therapy. Patient physical therapy was mildly difficult because of productive aphasia which is her baseline. MRI brain was done. Patient's case and care was discussed with Dr. Stapleton from neurology who agreed with the above treatment and advised patient to have an EEG as an outpatient. As per Dr. Stapleton patient is always at a high chance of developing metabolic encephalopathy because of temporal lobe encephalomalacia in setting of mild infection or fluid. For uncontrolled hyperglycemia patient's insulin was increased to 60 units 3 times daily at home. Patient's care regarding right humerus fracture was discussed with from orthopedics who advised patient to have conservative treatment with sling. She is advised to follow-up with orthopedics in 2 weeks. For safe discharge placement to halfway was discussed with the patient who denied the option but was agreeable for home health. Home health has been set up. Patient has been discharged hemodynamically stable condition with advised to follow-up with Dr. Stapleton and orthopedics in 2 weeks. All the above was discussed in detail with patient's mother prior to discharge and she verbalized understanding. Physical Exam Const: COMMON NORMALS: no acute distress and alert GENERAL APPEARANCE: cooperative and comfortable NUTRITIONAL APPEARANCE: obese ORIENTATION/CONSCIOUSNESS: Yes awake, Yes oriented to person and Yes oriented to place; not oriented to time HENMT: COMMON NORMALS: normocephalic HEAD & SCALP: normocephalic Eye: COMMON NORMALS: Equal, round and reactive pupils present and EOMs intact bilaterally GENERAL EYE: appearance normal, both eyes and all related structures PUPIL: Yes Equal, round and reactive pupils present Neck/C-Spine: COMMON NORMALS: full ROM, no lymphadenopathy and no JVD Lymph: LYMPHATIC: no lymphadenopathy noted Chest: COMMONS NORMALS: normal inspection of the chest Resp: COMMON NORMALS: normal respiratory effort, No retractions, No use of accessory muscles and clear to auscultation bilaterally AUSCULTATION: clear to auscultation bilaterally Cardio: COMMON NORMALS: no JVD, regular rate, regular rhythm, S1 normal heart sound present, S2 normal heart sound present, No gallops present (Cardio), No clicks present (Cardio) and No murmurs present (Cardio) RATE: regular rate RHYTHM: regular rhythm HEART SOUNDS: S1 normal heart sound present and S2 normal heart sound present GI: COMMON NORMALS: Normal to inspection, nondistended, normoactive bowel sounds present, Soft to palpation, non-tender, No hepatosplenomegaly present, no masses and no bruits PALPATION: Yes Soft to palpation and Yes No hepatosplenomegaly present Extremity: COMMON NORMALS: normal to inspection, capillary refill normal, no clubbing, cyanosis or edema, no calf tenderness and no pedal edema NARRATIVE EXTREMITY EXAM: Right shoulder in a sling, biceps bruising Neuro: COMMON NORMALS: CN's II-XII intact bilaterally, moves all extremities and no focal motor deficits SENSORIUM/ORIENTATION: Yes alert, Yes oriented to person, Yes oriented to place and No oriented to time COORDINATION/BALANCE: No [id number] test normal SPEECH: abnormal speech (Some mild slurring of her speech at the end of sentences) MOTOR EXAM: 5/5 motor strength present throughout COORDINATION: [id number] test abnormal Psych: COMMON NORMALS: mental status grossly normal and cooperative APPEARANCE: Yes unkempt ATTITUDE: Yes bizarre ACTIVITY/MOTOR BEHAVIOR: Yes fidgeting SPEECH: Yes excessive and Yes rapid MOOD & AFFECT: Yes Flat affect present THOUGHT PROCESS: Circumstantial thought process present, incoherent, disorganized, Confabulating thought process present, Flight of ideas present, Illogical thought process present and Loose association thought process present ATTENTION/CONCENTRATION: Yes concentration grossly intact, Yes attention grossly impaired and Yes concentration grossly impaired MEM ORY/COGNITION: Yes memory grossly impaired and Yes cognition grossly impaired Urinary Catheter Management^: [place]: Cath Placed During This Visit: yes Reason for Continuing Indwelling Catheter: Accurate Measurement of Urinary Output in Critically Ill Patients Urinary Catheter Date of Insertion: 07/08/20 Urinary Catheter Time of Insertion: 18:03 Discharge Data Data Completed and Pending: Completed Studies During Hospitalization Category Date Time Status CT angio headneck * [id number] Urge nt Cat Scan 07/08/20 12:[address] cervical spin wo con* [id number] Urge nt Cat Scan 07/08/20 11:[address] head wo con* 7 0450 Stat Cat Scan 07/08/20 11:[address] lumbar spine w o con* [id number] Stat Cat Scan 07/08/20 11:51 Completed XR chest 1V nely ble [id number] Stat Exams 07/08/20 11:51 Completed XR humerus RT 730 60 Stat Exams 07/08/20 12:33 Completed MR head wo con* 7 [id number] Routine MRI 07/10/20 20:51 Completed CV echo complete* [id number] Routine Ultrasound 07/09/20 20:51 Com[place] thyroid 35089 Routine Ultrasound 07/09/20 20:51 Completed Pending at discharge Category Date Time Status EEG electroenceph alogram Routine Exams 07/09/20 14:47 Ordered EEG electroenceph alogram Stat Exams 07/08/20 20:51 Ordered Blood Culture Sta t Lab 07/08/20 14:03 Results Complete Blood Co unt w/Auto AM LABS Lab 07/11/20 04:00 Ordered Complete Blood Co unt w/Auto AM LABS Lab 07/12/20 04:00 Ordered Comprehensive Met abolic Panel AM LA BS Lab 07/11/20 04:00 Ordered Comprehensive Met abolic Panel AM LA BS Lab 07/12/20 04:00 Ordered Drug Screen, Urin e Routine Lab 07/10/20 10:16 Uncollected Magnesium AM LABS Lab 07/11/20 04:00 Ordered Magnesium AM LABS Lab 07/12/20 04:00 Ordered Phosphorus AM LAB S Lab 07/11/20 04:00 Ordered Phosphorus AM LAB S Lab 07/12/20 04:00 Ordered Prothrombin Time INR AM LABS Lab 07/11/20 04:00 Ordered Prothrombin Time INR AM LABS Lab 07/12/20 04:00 Ordered Urine Culture Sta t Lab 07/08/20 15:45 Results Labs from last 24 hours 07/10/20 07/10/20 07/10/20 12:21 06:50 04:45 WBC RBC Hgb Hct MCV MCH MCHC RDW Plt Count MPV Neut % (Auto) Lymph % (Auto) [place] % (Auto) Eos % (Auto) Baso % (Auto) Neut # (Auto) Lymph # (Auto) [place] # (Auto) Eos # (Auto) Baso # (Auto) Nucleated RBC % (a uto) Nucleated RBCs # PT 14.10 INR 1.06 Sodium Potassium Chloride Carbon Dioxide Anion Gap BUN Creatinine GFR Calculation Glucose POC Glucose 389 366 Calculated Osmolal ity Calcium Phosphorus Magnesium Total Bilirubin AST ALT Alkaline Phosphata se Total Protein Albumin Globulin 07/10/20 07/10/20 07/09/20 04:45 04:45 21:12 WBC 8.7 RBC 3.55 L Hgb 10.0 L Hct 32.1 L MCV 90.4 MCH 28.2 MCHC 31.2 RDW 13.1 Plt Count 335 MPV 10.3 Neut % (Auto) 57.2 Lymph % (Auto) 30.1 [place] % (Auto) 8.5 Eos % (Auto) 3.2 Baso % (Auto) 0.8 Neut # (Auto) 4.96 Lymph # (Auto) 2.6 [place] # (Auto) 0.7 Eos # (Auto) 0.3 Baso # (Auto) 0.1 Nucleated RBC % (a uto) 0 Nucleated RBCs # 0.0 PT INR Sodium 136 Potassium 4.1 Chloride 98 Carbon Dioxide 27 Anion Gap 15.1 BUN 20 Creatinine 0.8 GFR Calculation 73.2 L Glucose 423 H POC Glucose 475 Calculated Osmolal ity 303 H Calcium 9.1 Phosphorus 3.4 Magnesium 1.6 L Total Bilirubin 0.3 AST 18 ALT 17 Alkaline Phosphata se 74 Total Protein 5.9 L Albumin 3.2 L Globulin 2.7 07/09/20 07/09/20 21:11 17:10 WBC RBC Hgb Hct MCV MCH MCHC RDW Plt Count MPV Neut % (Auto) Lymph % (Auto) [place] % (Auto) Eos % (Auto) Baso % (Auto) Neut # (Auto) Lymph # (Auto) [place] # (Auto) Eos # (Auto) Baso # (Auto) Nucleated RBC % (a uto) Nucleated RBCs # PT INR Sodium Potassium Chloride Carbon Dioxide Anion Gap BUN Creatinine GFR Calculation Glucose POC Glucose 443 369 Calculated Osmolal ity Calcium Phosphorus Magnesium Total Bilirubin AST ALT Alkaline Phosphata se Total Protein Albumin Globulin Vitals: Last Vital Signs Temp 98.4 F 07/10/20 12:00 Pulse 74 07/10/20 12:00 Resp 16 07/10/20 12:00 BP 146/81 07/10/20 12:00 Pulse Ox 99 07/10/20 12:00 Discharge Plan Discharge Patient Disposition: Home Health Service Condition: Stable Prescriptions: New levetiracetam 500 mg Tablet 500 mg PO Q12H Qty: 30 RF: 0 pantoprazole 40 mg Tablet,Delayed Release (Dr/Ec) 40 mg PO DAILY Qty: 30 RF: 0 Eliquis 5 mg tablet 5 mg PO Q12H Qty: 60 RF: 0 Continued hydrochlorothiazide 50 mg tablet 50 mg PO QAM Qty: 90 RF: 3 tramadol 50 mg tablet 50 mg PO Q6H PRN (Reason: pain) Qty: 120 RF: 2 spironolactone 50 mg tablet 50 mg PO QAM 30 Days Qty: 30 RF: 2 duloxetine 60 mg capsule,delayed release(DR/EC) 60 mg PO DAILY Qty: 90 RF: 3 allopurinol 300 mg tablet 300 mg PO DAILY Qty: 90 RF: 0 lisinopril 10 mg tablet 10 mg PO DAILY RF: 0 tizanidine 6 mg capsule 6 mg PO BEDTIME PRN (Reason: muscle spasticity) RF: 0 hydrocodone-acetaminophen 5-325 mg tablet 1 tab PO Q4H PRN (Reason: Pain) RF: 0 atorvastatin 80 mg tablet 80 mg PO DAILY RF: 0 clopidogrel 75 mg tablet 75 mg PO DAILY RF: 0 metoprolol tartrate 25 mg tablet 37.5 mg PO BID RF: 0 Changed Novolog Flexpen U-100 Insulin 100 unit/mL (3 mL) insulin pen 60 unit SUBCUT TID Qty: 45 RF: 12 Discharge Orders: Discharge Order (Routine); Ordered 07/10/20 Ordered By: Patel Jones Other Ambulatory Orders: EEG electroencephalogram (Routine) Timeframe: 1 Week Facility: [facility] - Location: Neurology Ordered By: Patel BAEZ cardiac event monitor (Routine) Timeframe: 1 Week Facility: [facility] - Location: Cardiac Diagnostic Laboratory Ordered By: Patel Jones Referrals: Radha Stapleton MD [Physician] - 07/20/20 10:00 am Oil Garcia DO [Physician] - 2 weeks Neftaly Brambila MD [Primary Care Provider] - 07/19/20 3:45 pm (Follow up with Dr Brambila on ) Discharge Diet: Cardiac and Diabetic Discharge Activity: Resume usual activity and Increase activity as tolerated Patient Instructions: Pantoprazole (By mouth), Levetiracetam (By mouth), Apixaban (By mouth), Acute Kidney Injury (DC), Ischemic Stroke (GEN), Self Care Measures After a Stroke (DC) Discharge Attestations Time Spent in Discharge Care*: greater than 30 min Specific Discharge Activities: educating patient, educating and/or supporting family/caregiver, discussing with nurse case manager/social workers/dc planners, documenting/other paperwork and evaluating patient/reviewing data Quality Metrics Clinical Quality Measures During this hospital stay, did patient experience: None Coding Level of Care 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 [employer] Diagnoses Altered mental status R41.82 Fracture, humerus closed S42.224A Encounter type: initial encounter Fracture alignment: nondisplaced Fracture morphology: 2-part Humerus Location: surgical neck Laterality: right Essential hypertension I10 Diabetes mellitus with neuropathy E11.40; Z79.4 Diabetes mellitus director long term care insulin use: with director long term care use Diabetes mellitus type: type 2 Mixed hyperlipidemia E78.2 History of CVA (cerebrovascular accident) Z86.73 Hyperglycemia R73.9 Recurrent falls R29.6 NSTEMI (non-ST elevated myocardial infarction) I21.4 DELORIS (acute kidney injury) N17.9 Acute embolic stroke I63.9 Multinodular thyroid E04.2
[2020-07-10 13:58] LABS: THC Screen Urine Negative (Negative)
[2020-07-10 13:59] LABS: Amphetamines Screen Urine Negative (Negative); Barbiturates Screen Urine Negative (Negative); Benzodiazepines Screen Urine Negative (Negative); Cocaine Screen Urine Negative (Negative); Opiate Screen Urine Positive (Negative); PCP Screen Urine Negative (Negative)
--- NOTE | 2020-07-10 20:51 | MR_ITS ---
WS: [id number] MRI BRAIN WITHOUT CONTRAST HISTORY: RECURRENT STROKE COMPARISON: None available. TECHNIQUE: Diffusion imaging, multiplanar T1, T2 and FLAIR imaging obtained. No evidence for acute infarct or hemorrhage. [place]-white matter differentiation is normal. Remote infarcts in the LEFT temporal occipital distribution. Increased T1 signal along the cortex con sistent with chronic necrotic lipid deposition. There is volume loss in the inferior LEFT temporal lo be with extension into the occipital lobe. There are additional scattered moderate T2 and FLAIR signa l hyperintensities from chronic ischemic disease noted bilaterally. There are a few microvascular isc hemic changes in the andrew bilaterally. Ventricles and extra-axial spaces are normal. Cavum septum pellucidum et vergae is a normal congenita l variant. No inferior displacement of cerebellar tonsils. The sella turcica and pituitary gland are unremarkabl e. Posterior fossa is also unremarkable. Dural venous sinuses and galena of [place] demonstrate no abnormality on this unenhanced studies. Paranasal sinuses: Clear. Mastoid air cells: Normal. Calvarium and scalp: Intact. MR/MR head wo con* [id number] IMPRESSION: 1. No acute infarct. 2. Chronic inferior LEFT temporal occipital lobe infarct with encephalomalacia . 3. Otherwise mild to moderate chronic microvascular ischemic changes.
== END 2020-07-10 15:00 | disposition home health service (06) ==
LOC: ER 11:55 → CSU 17:32 → MEDSURG 07-09 17:03
PROVIDERS: Admitting Provider Family Medicine; Emergency Provider Emergency Medicine; PCP Internal Medicine; Visit Provider Student in an Organized Health Care Education/Training Program
DX: I63.9 Cerebral infarction, unspecified (principal); R29.705 NIHSS score 5; R41.82 Altered mental status, unspecified; S42.224A 2-part nondisplaced fracture of surgical neck of right humerus, initial encounter for closed fracture; W19.XXXA Unspecified fall, initial encounter; I10 Essential (primary) hypertension; E11.40 Type 2 diabetes mellitus with diabetic neuropathy, unspecified; E11.65 Type 2 diabetes mellitus with hyperglycemia; Z79.4 Long term (current) use of insulin; E78.2 Mixed hyperlipidemia; R29.6 Repeated falls; I25.2 Old myocardial infarction; N17.9 Acute kidney failure, unspecified; I69.820 Aphasia following other cerebrovascular disease; G47.33 Obstructive sleep apnea (adult) (pediatric); Z82.49 Family history of ischemic heart disease and other diseases of the circulatory system; Z87.891 Personal history of nicotine dependence; E04.2 Nontoxic multinodular goiter
CPT/HCPCS: 12345; 36415; 36416; 36600; 51702; 70450; 70496; 70498; 70551; 71045; 72125; 72131; 73060; 76536; 80053; 80061; 80306; 80307; 81001; 82009; 82140; 82550; 82803; 82962; 83036; 83605; 83735; 84100; 84145; 84439; 84443; 84484; 85025; 85610; 87040; 87086; 87205; 92507; 92523; 92610; 93005; 93306; 94660; 94664; 96361; 96365; 96372; 96374; 96375; 97110; 97116; 97161; 97167; 99281; 99285; G0378; J0696; J1650; J1815; J1953; J2270; J2405; J3475; J7030; Q9967

== ENCOUNTER 2020-07-22 14:34 | Inpatient (IN) | payer MEDICARE, SELFPAY ==
[2020-07-22] VITALS (10 sets, daily range): BP systolic 119–136; BP diastolic 50–75; PULSE 51–77; RESP 17–22; TEMP 36.9–39.1; O2SAT 92–99; BMI 39.9
--- NOTE | 2020-07-22 14:58 | XRR_ITS ---
PROCEDURE INFORMATION: Exam: XR Chest, 1 View Exam date and time: 07/22/2020 3:25 PM Age: 60 years old Clinical indication: Shortness of breath; Additional info: Covid exposure TECHNIQUE: Imaging protocol: XR of the chest Views: 1 view. COMPARISON: CR (CHEST, ) 07/08/2020 12:13 PM FINDINGS: Lungs: Parenchymal densities are noted in the left lower lobe consistent with pneumonia. These findings are new since prior examination. Low lung volumes are seen. Pleural space: Unremarkable. No pleural effusion. No pneumothorax. Heart/Mediastinum: Unremarkable. No cardiomegaly. Bones/joints: Unremarkable. XR/XR chest 1V portable [id number] IMPRESSION: 1. Left lower lobe pneumonia 2. Low lung volumes. 3. Otherwise negative examination
--- NOTE | 2020-07-22 14:58 | ECG_ITS ---
[facility] Test Date: 2020-07-22 Pat Name: Hilda Wallace Department: Room: Gender: Female Audio Operator: : 1960 Requested By: Gerald Mas I Order Number: [id number] Reading MD: VETO LATHAM Measurements Intervals [place] Rate: 68 P: 20 DC: 161 QRS: -34 QRSD: 124 T: 54 QT: 393 QTc: 419 Interpretive Statements SINUS RHYTHM LEFT AXIS DEVIATION [QRS AXIS < -30] POSSIBLE RIGHT VENTRICULAR CONDUCTION DELAY [RSR (QR) IN V1/V2] LEFT VENTRICULAR HYPERTROPHY AND ST-T CHANGE [VOLTAGE CRITERIA PLUS ST/T ABNORMALITY] POSSIBLE SEPTAL MYOCARDIAL INFARCTION , PROBABLY OLD [30 ms Q WAVE IN V1/V2] LATERAL MYOCARDIAL INFARCTION , PROBABLY OLD [40+ ms Q WAVE AND/OR ST/T ABNORMALITY IN I/aVL/V5/V6] Compared to ECG 07/08/2020 17:27:00 Sinus tachycardia no longer present Incomplete right bundle-branch block no longer present ST (T wave) deviation still present Myocardial infarct finding still present Electronically Signed On 07-22-2020 17:26:47 CHIEF STRATEGY OFFICER by VETO LATHAM [email or web address]
[2020-07-22 15:35] LABS: ABG PCO2 32.3 mmHg (35-45); ABG PH Result 7.45 (7.35-7.45); Arterial Blood Gas Hematocrit 38.6 % (37-47); Blood Gas Allen Test Pos; Blood Gas Operator Identificat AMH; Blood Gas Sample Site Radial, right; Blood Gas Sample Type Arterial; HCO3 ABG 22.4 mmol/L (22-26); Oxygen Device ROOM AIR; PO2 ABG 65.1 mmHg (80.0-100.0)
--- NOTE | 2020-07-22 15:39 | W.ED.COVID ---
HPI - COVID General: Chief Complaint: COVID symptoms Stated Complaint: WEAKNESS; COVID EXPOSURE; NAUSEA Time Seen by Provider: 07/22/20 14:46 Source: patient and EMS Mode of arrival: EMS Limitations: altered mental status Triage information: Has fever, cough or shortness of breath. Exposure to COVID + person last 14 days History of Present Illness: HPI Narrative: 60-year-old female who was brought in by EMS. Her history is difficult to obtain as the patient is confused. It is hard to tell exactly what is going on but according to EMS her house is very unclean, there is cat feces scattered all over the house, the house is dirty and not arranged properly. The patient had a blood glucose of 485 per EMS. According to them she was alert and oriented with the EMS crew and had complained of feeling unwell for about 2 days. She felt she had a fever today. Going through her primary care providers note she was seen there 3 days ago and his note is pretty concerning that the patient was in a poor mental state and was unlikely to be mentally capable of making her decisions. She was apparently using words in an inappropriate manner did not seem to understand any of the questions that were asked and apparently had some dysphasia. She is unable to answer most questions and also says is that she is sick. She had a temperature of more than 102 ?F on arrival to the emergency department COVID Results: SARS-CoV-2 Antigen (Rapid) Positive (Negative) H 07/22/20 16:00 07/22/20 Nasal/Oral Coronavirus 2019 PCR Pending 07/22/20 16:00 07/22/20 Review of Systems General: Reports: ROS unobtainable due to mental status [facility] ED PFSH: Medical History Acute hypersomnolence disorder Diabetes mellitus with neuropathy History of CVA (cerebrovascular accident) Mixed hyperlipidemia LEROY on CPAP Surgical History History of bursectomy History of cholecystectomy History of colonoscopy History of hysterectomy for indication other than malignancy History of nasal sinusotomy History of repair of rotator cuff History of tonsillectomy Hx of adenoidectomy Status post anal fissurectomy Family History Mother CAD (coronary artery disease) Other Asthma Cancer Diabetes Heart disease Hypertension Stroke Social History Smoking and tobacco status: former smoker Alcohol intake: current Alcohol intake frequency: few times a month History of recent travel: No Physical Exam Const: COMMON NORMALS: no acute distress EXAM LIMITATIONS: altered mental status GENERAL APPEARANCE: disheveled NUTRITIONAL APPEARANCE: obese ORIENTATION/CONSCIOUSNESS: Yes awake, Yes oriented to person and Yes confused; not oriented to place and not oriented to time HENMT: COMMON NORMALS: normocephalic and atraumatic HEAD & SCALP: normocephalic and atraumatic Eye: COMMON NORMALS: Equal, round and reactive pupils present and EOMs intact bilaterally PUPIL: Yes Equal, round and reactive pupils present Resp: COMMON NORMALS: normal respiratory effort, No retractions, No use of accessory muscles and clear to auscultation bilaterally AUSCULTATION: clear to auscultation bilaterally Cardio: COMMON NORMALS: regular rate, regular rhythm, S1 normal heart sound present and S2 normal heart sound present RATE: regular rate RHYTHM: regular rhythm HEART SOUNDS: S1 normal heart sound present and S2 normal heart sound present GI: COMMON NORMALS: Normal to inspection, nondistended, normoactive bowel sounds present, Soft to palpation, non-tender and No hepatosplenomegaly present PALPATION: Yes Soft to palpation and Yes No hepatosplenomegaly present Neuro: SENSORIUM/ORIENTATION: Yes oriented to person, No oriented to place and No oriented to time Procedures Lumbar Puncture Time Out Performed: Yes Patient Position: left lateral decubitus Skin Prep: Povidone-Iodine 1% Local Anesthetic: lidocaine 1% Amount of anesthesia used (mL): 3 Spinal Needle Gauge: 20G Interspace Used: L4-L5 Opening Pressure (cmH20): 13 Fluid Initially Obtained: clear Complications: none Course Consultations: Consultation #1: Discussed the patient with Dr. Hennessy, hospitalist. He kindly accepted patient to his service. Time: 18:17 Vital Signs: Vital signs: Vital Signs Temperature 99.2 F 07/22/20 23:58 Pulse Rate 76 07/23/20 00:14 Respiratory Rate 18 07/23/20 00:14 Blood Pressure 132/75 07/22/20 23:58 Pulse Oximetry 91 07/23/20 00:14 MDM - COVID MDM Narrative: Medical decision making narrative: 60-year-old female patient who was brought in by ambulance. She was pretty confused here and it looks like at the very minimum 3 days ago. She was seen by her PCP 3 days ago and it appeared she was very confused there also. In the emergency department she was febrile, and a Covid test done was positive. Imaging done shows she has pneumonia. Because of her confusion a lumbar puncture was done to rule out encephalitis. Since she lives alone and her living conditions at baseline are pretty poor it is unsafe to discharge this patient home. She is therefore admitted to the hospital for further evaluation and management. Differential Diagnosis: Differential diagnosis: Likely COVID 19, influenza, other viral infection, bacterial infection and copd exacerbation Medical Records: Attestation: I reviewed the patient's medical records. Lab Data: Attestation: I reviewed the patient's lab results. Labs: Lab Results 07/22/20 07/22/20 07/22/20 Range/Units 15:24 15:50 15:50 WBC 8.0 (4.0-10.0) 10^3/ uL RBC 4.31 (4.1-5.3) 10^6/u L Hgb 11.9 (11.5-15.3) g/dL Hct 36.0 L (37.0-47.0) % MCV 83.5 (81-99) fL MCH 27.6 L (28.0-34.0) pg MCHC 33.1 (30.0-36.0) g/dL RDW 13.3 (12.1-15.1) % Plt Count 304 (130-400) 10^3/c mm MPV 10.1 (7.4-10.4) fL Neut % (Auto) 83.1 % Lymph % (Auto) 10.2 % [place] % (Auto) 6.0 % Eos % (Auto) 0.0 % Baso % (Auto) 0.3 % Neut # (Auto) 6.62 (1.8-7.7) 10^3/u L Lymph # (Auto) 0.8 (0.8-4.8) 10^3/u L [place] # (Auto) 0.5 (0.2-0.9) 10^3/u L Eos # (Auto) 0.0 (0.0-0.8) 10^3/u L Baso # (Auto) 0.0 (0.0-0.1) 10^3/u L Nucleated RBC % (a uto) 0 % Nucleated RBCs # 0.0 /100WBC PT 13.60 (12.1-14.9) SECO NDS INR 1.01 (0.8-1.2) D-Dimer 2.67 H (0-0.59) ug/mIFE U Specimen Type Arterial Sample Site Radial, right ABG pH 7.45 (7.35-7.45) ABG pCO2 32.3 L (35-45) mmHg ABG pO2 65.1 L (80.0-100.0) mmH g ABG HCO3 22.4 (22-26) mmol/L ABG Base Excess -1.0 (-2.0-2.0) mmol/ L Thien Test Pos Hematocrit 38.6 (37-47) % O2 Delivery Device Room air FiO2 21.0 % Appliance Servicer ID Amh Sodium (136-145) mmol/L Potassium (3.5-5.1) mmol/L Chloride (98-107) mmol/L Carbon Dioxide (22-29) mmol/L Anion Gap (5-19) BUN (8-23) mg/dL Creatinine (0.5-0.9) mg/dL GFR Calculation (90-130) mL/min Glucose (65-115) mg/dL Calculated Osmolal ity (285-295) mOsm/k g Lactic Acid (0.5-2.2) mmol/L Calcium (8.5-10.5) mg/dL Total Bilirubin (0.15-1.2) mg/dL AST (0-32) U/L ALT (0-33) U/L Alkaline Phosphata se (35-105) IU/L Lactate Dehydrogen ase (135-214) U/L Troponin T Gen 5 n g/L (0-10) ng/L C-Reactive Protein (0.0-4.9) mg/L Total Protein (6.6-8.7) g/dL Albumin (3.5-5.2) g/dL Globulin (1.3-4.6) g/dL Procalcitonin (0-0.5) ng/mL Urine Color (Yellow) Urine Appearance (CLEAR) Urine pH (5-7) Ur Specific Gravit y (1.005-1.030) Urine Protein (Negative) Urine Glucose (UA) (Normal) Urine Ketones (Negative) Urine Blood (Negative) Urine Nitrate (Negative) Urine Bilirubin (Negative) Urine Urobilinogen (Negative) mg/dL Ur Leukocyte Deanne ase (Negative) Urine RBC (0-2) /hpf Urine WBC (0-5) /hpf Ur Squamous Epith Cells (0-5) /hpf Amorphous Sediment /hpf Urine Bacteria (NONE) /hpf CSF Appearance (CLEAR) CSF Color (COLORLESS) CSF WBC (0-5) /uL CSF RBC (0-0) 10^3/uL CSF Mononuclear # Auto (50-90) 10^3/uL CSF Mononuclear WB Cs % (50-90) % CSF Polynuclear WB Cs # (0-10) 10^3/uL CSF Polynuclear WB Cs % (0-10) % CSF Glucose (40-70) mg/dL CSF LDH U/L CSF Total Protein (15-45) mg/dL CSF Albumin (20.0-40.0) mg/d L Urine Opiates Scre en (Negative) ng/mL Ur Barbiturates Sc reen (Negative) ng/mL Ur Phencyclidine S crn (Negative) ng/mL Ur Amphetamines Sc reen (Negative) ng/mL U Benzodiazepines Scrn (Negative) ng/mL Urine Cocaine Scre en (Negative) ng/mL U Marijuana (THC) Screen (Negative) ng/mL Influenza Type A A g (Negative) Influenza Type B A g (Negative) SARS-CoV-2 Ag (Rap id) (Negative) 07/22/20 07/22/20 07/22/20 Range/Units 15:50 15:50 15:50 WBC (4.0-10.0) 10^3/ uL RBC (4.1-5.3) 10^6/u L Hgb (11.5-15.3) g/dL Hct (37.0-47.0) % MCV (81-99) fL MCH (28.0-34.0) pg MCHC (30.0-36.0) g/dL RDW (12.1-15.1) % Plt Count (130-400) 10^3/c mm MPV (7.4-10.4) fL Neut % (Auto) % Lymph % (Auto) % [place] % (Auto) % Eos % (Auto) % Baso % (Auto) % Neut # (Auto) (1.8-7.7) 10^3/u L Lymph # (Auto) (0.8-4.8) 10^3/u L [place] # (Auto) (0.2-0.9) 10^3/u L Eos # (Auto) (0.0-0.8) 10^3/u L Baso # (Auto) (0.0-0.1) 10^3/u L Nucleated RBC % (a uto) % Nucleated RBCs # /100WBC PT (12.1-14.9) SECO NDS INR (0.8-1.2) D-Dimer (0-0.59) ug/mIFE U Specimen Type Sample Site ABG pH (7.35-7.45) ABG pCO2 (35-45) mmHg ABG pO2 (80.0-100.0) mmH g ABG HCO3 (22-26) mmol/L ABG Base Excess (-2.0-2.0) mmol/ L Thien Test Hematocrit (37-47) % O2 Delivery Device FiO2 % Appliance Servicer ID Sodium 124 L (136-145) mmol/L Potassium 5.6 H (3.5-5.1) mmol/L Chloride 88 L (98-107) mmol/L Carbon Dioxide 22 (22-29) mmol/L Anion Gap 19.6 H (5-19) BUN 30 H (8-23) mg/dL Creatinine 1.0 H (0.5-0.9) mg/dL GFR Calculation 56.6 L (90-130) mL/min Glucose 481 H (65-115) mg/dL Calculated Osmolal ity 285 (285-295) mOsm/k g Lactic Acid 1.2 (0.5-2.2) mmol/L Calcium 8.8 (8.5-10.5) mg/dL Total Bilirubin 0.5 (0.15-1.2) mg/dL AST 17 (0-32) U/L ALT 24 (0-33) U/L Alkaline Phosphata se 114 H (35-105) IU/L Lactate Dehydrogen ase 210 (135-214) U/L Troponin T Gen 5 n g/L 27 H (0-10) ng/L C-Reactive Protein 45.1 H (0.0-4.9) mg/L Total Protein 6.0 L (6.6-8.7) g/dL Albumin 3.6 (3.5-5.2) g/dL Globulin 2.4 (1.3-4.6) g/dL Procalcitonin 0.20 (0-0.5) ng/mL Urine Color (Yellow) Urine Appearance (CLEAR) Urine pH (5-7) Ur Specific Gravit y (1.005-1.030) Urine Protein (Negative) Urine Glucose (UA) (Normal) Urine Ketones (Negative) Urine Blood (Negative) Urine Nitrate (Negative) Urine Bilirubin (Negative) Urine Urobilinogen (Negative) mg/dL Ur Leukocyte Deanne ase (Negative) Urine RBC (0-2) /hpf Urine WBC (0-5) /hpf Ur Squamous Epith Cells (0-5) /hpf Amorphous Sediment /hpf Urine Bacteria (NONE) /hpf CSF Appearance (CLEAR) CSF Color (COLORLESS) CSF WBC (0-5) /uL CSF RBC (0-0) 10^3/uL CSF Mononuclear # Auto (50-90) 10^3/uL CSF Mononuclear WB Cs % (50-90) % CSF Polynuclear WB Cs # (0-10) 10^3/uL CSF Polynuclear WB Cs % (0-10) % CSF Glucose (40-70) mg/dL CSF LDH U/L CSF Total Protein (15-45) mg/dL CSF Albumin (20.0-40.0) mg/d L Urine Opiates Scre en (Negative) ng/mL Ur Barbiturates Sc reen (Negative) ng/mL Ur Phencyclidine S crn (Negative) ng/mL Ur Amphetamines Sc reen (Negative) ng/mL U Benzodiazepines Scrn (Negative) ng/mL Urine Cocaine Scre en (Negative) ng/mL U Marijuana (THC) Screen (Negative) ng/mL Influenza Type A A g (Negative) Influenza Type B A g (Negative) SARS-CoV-2 Ag (Rap id) (Negative) 07/22/20 07/22/20 07/22/20 Range/Units 16:00 16:00 16:09 WBC (4.0-10.0) 10^3/ uL RBC (4.1-5.3) 10^6/u L Hgb (11.5-15.3) g/dL Hct (37.0-47.0) % MCV (81-99) fL MCH (28.0-34.0) pg MCHC (30.0-36.0) g/dL RDW (12.1-15.1) % Plt Count (130-400) 10^3/c mm MPV (7.4-10.4) fL Neut % (Auto) % Lymph % (Auto) % [place] % (Auto) % Eos % (Auto) % Baso % (Auto) % Neut # (Auto) (1.8-7.7) 10^3/u L Lymph # (Auto) (0.8-4.8) 10^3/u L [place] # (Auto) (0.2-0.9) 10^3/u L Eos # (Auto) (0.0-0.8) 10^3/u L Baso # (Auto) (0.0-0.1) 10^3/u L Nucleated RBC % (a uto) % Nucleated RBCs # /100WBC PT (12.1-14.9) SECO NDS INR (0.8-1.2) D-Dimer (0-0.59) ug/mIFE U Specimen Type Sample Site ABG pH (7.35-7.45) ABG pCO2 (35-45) mmHg ABG pO2 (80.0-100.0) mmH g ABG HCO3 (22-26) mmol/L ABG Base Excess (-2.0-2.0) mmol/ L Thien Test Hematocrit (37-47) % O2 Delivery Device FiO2 % Appliance Servicer ID Sodium (136-145) mmol/L Potassium (3.5-5.1) mmol/L Chloride (98-107) mmol/L Carbon Dioxide (22-29) mmol/L Anion Gap (5-19) BUN (8-23) mg/dL Creatinine (0.5-0.9) mg/dL GFR Calculation (90-130) mL/min Glucose (65-115) mg/dL Calculated Osmolal ity (285-295) mOsm/k g Lactic Acid (0.5-2.2) mmol/L Calcium (8.5-10.5) mg/dL Total Bilirubin (0.15-1.2) mg/dL AST (0-32) U/L ALT (0-33) U/L Alkaline Phosphata se (35-105) IU/L Lactate Dehydrogen ase (135-214) U/L Troponin T Gen 5 n g/L (0-10) ng/L C-Reactive Protein (0.0-4.9) mg/L Total Protein (6.6-8.7) g/dL Albumin (3.5-5.2) g/dL Globulin (1.3-4.6) g/dL Procalcitonin (0-0.5) ng/mL Urine Color Straw (Yellow) Urine Appearance Clear (CLEAR) Urine pH 5 (5-7) Ur Specific Gravit y 1.010 (1.005-1.030) Urine Protein 1+ H (Negative) Urine Glucose (UA) 4+ H (Normal) Urine Ketones Negative (Negative) Urine Blood Neg (Negative) Urine Nitrate Negative (Negative) Urine Bilirubin Neg (Negative) Urine Urobilinogen Norm (Negative) mg/dL Ur Leukocyte Deanne ase Negative (Negative) Urine RBC None (0-2) /hpf Urine WBC None (0-5) /hpf Ur Squamous Epith Cells None (0-5) /hpf Amorphous Sediment Trace /hpf Urine Bacteria Trace (NONE) /hpf CSF Appearance (CLEAR) CSF Color (COLORLESS) CSF WBC (0-5) /uL CSF RBC (0-0) 10^3/uL CSF Mononuclear # Auto (50-90) 10^3/uL CSF Mononuclear WB Cs % (50-90) % CSF Polynuclear WB Cs # (0-10) 10^3/uL CSF Polynuclear WB Cs % (0-10) % CSF Glucose (40-70) mg/dL CSF LDH U/L CSF Total Protein (15-45) mg/dL CSF Albumin (20.0-40.0) mg/d L Urine Opiates Scre en (Negative) ng/mL Ur Barbiturates Sc reen (Negative) ng/mL Ur Phencyclidine S crn (Negative) ng/mL Ur Amphetamines Sc reen (Negative) ng/mL U Benzodiazepines Scrn (Negative) ng/mL Urine Cocaine Scre en (Negative) ng/mL U Marijuana (THC) Screen (Negative) ng/mL Influenza Type A A g Negative (Negative) Influenza Type B A g Negative (Negative) SARS-CoV-2 Ag (Rap id) Positive H (Negative) 07/22/20 07/22/20 Range/Units 16:09 19:41 WBC (4.0-10.0) 10^3/ uL RBC (4.1-5.3) 10^6/u L Hgb (11.5-15.3) g/dL Hct (37.0-47.0) % MCV (81-99) fL MCH (28.0-34.0) pg MCHC (30.0-36.0) g/dL RDW (12.1-15.1) % Plt Count (130-400) 10^3/c mm MPV (7.4-10.4) fL Neut % (Auto) % Lymph % (Auto) % [place] % (Auto) % Eos % (Auto) % Baso % (Auto) % Neut # (Auto) (1.8-7.7) 10^3/u L Lymph # (Auto) (0.8-4.8) 10^3/u L [place] # (Auto) (0.2-0.9) 10^3/u L Eos # (Auto) (0.0-0.8) 10^3/u L Baso # (Auto) (0.0-0.1) 10^3/u L Nucleated RBC % (a uto) % Nucleated RBCs # /100WBC PT (12.1-14.9) SECO NDS INR (0.8-1.2) D-Dimer (0-0.59) ug/mIFE U Specimen Type Sample Site ABG pH (7.35-7.45) ABG pCO2 (35-45) mmHg ABG pO2 (80.0-100.0) mmH g ABG HCO3 (22-26) mmol/L ABG Base Excess (-2.0-2.0) mmol/ L Thien Test Hematocrit (37-47) % O2 Delivery Device FiO2 % Appliance Servicer ID Sodium (136-145) mmol/L Potassium (3.5-5.1) mmol/L Chloride (98-107) mmol/L Carbon Dioxide (22-29) mmol/L Anion Gap (5-19) BUN (8-23) mg/dL Creatinine (0.5-0.9) mg/dL GFR Calculation (90-130) mL/min Glucose (65-115) mg/dL Calculated Osmolal ity (285-295) mOsm/k g Lactic Acid (0.5-2.2) mmol/L Calcium (8.5-10.5) mg/dL Total Bilirubin (0.15-1.2) mg/dL AST (0-32) U/L ALT (0-33) U/L Alkaline Phosphata se (35-105) IU/L Lactate Dehydrogen ase (135-214) U/L Troponin T Gen 5 n g/L (0-10) ng/L C-Reactive Protein (0.0-4.9) mg/L Total Protein (6.6-8.7) g/dL Albumin (3.5-5.2) g/dL Globulin (1.3-4.6) g/dL Procalcitonin (0-0.5) ng/mL Urine Color (Yellow) Urine Appearance (CLEAR) Urine pH (5-7) Ur Specific Gravit y (1.005-1.030) Urine Protein (Negative) Urine Glucose (UA) (Normal) Urine Ketones (Negative) Urine Blood (Negative) Urine Nitrate (Negative) Urine Bilirubin (Negative) Urine Urobilinogen (Negative) mg/dL Ur Leukocyte Deanne ase (Negative) Urine RBC (0-2) /hpf Urine WBC (0-5) /hpf Ur Squamous Epith Cells (0-5) /hpf Amorphous Sediment /hpf Urine Bacteria (NONE) /hpf CSF Appearance Hazy (CLEAR) CSF Color Colorless (COLORLESS) CSF WBC 1 (0-5) /uL CSF RBC 0 (0-0) 10^3/uL CSF Mononuclear # Auto 0.001 L (50-90) 10^3/uL CSF Mononuclear WB Cs % 100 H (50-90) % CSF Polynuclear WB Cs # 0.000 (0-10) 10^3/uL CSF Polynuclear WB Cs % 0 (0-10) % CSF Glucose 244 H (40-70) mg/dL CSF LDH 24 U/L CSF Total Protein 0 L (15-45) mg/dL CSF Albumin 0.2 L (20.0-40.0) mg/d L Urine Opiates Scre en Negative (Negative) ng/mL Ur Barbiturates Sc reen Negative (Negative) ng/mL Ur Phencyclidine S crn Negative (Negative) ng/mL Ur Amphetamines Sc reen Negative (Negative) ng/mL U Benzodiazepines Scrn Negative (Negative) ng/mL Urine Cocaine Scre en Negative (Negative) ng/mL U Marijuana (THC) Screen Negative (Negative) ng/mL Influenza Type A A g (Negative) Influenza Type B A g (Negative) SARS-CoV-2 Ag (Rap id) (Negative) Imaging Data: CXR: Attestation: I personally reviewed and interpreted this imaging study as follows: Radiologist's impression: [address] [address] XRay Report Signed Patient: Ramon Wallace #: [id number] : 1960Acct#:[id number] Age/Sex: 60 / FADM Date: 07/22/20 Loc: ERRoom/Bed: Attending Dr: Ordering Provider/Ordering MD: Gerald Mas MD, [facility] Date of Service: 07/22/20 Procedure(s): XR chest 1V portable [id number] Accession Number(s): [id number] Report Number: [id number] PROCEDURE INFORMATION: Exam: XR Chest, 1 View Exam date and time: 07/22/2020 3:25 PM Age: 60 years old Clinical indication: Shortness of breath; Additional info: Covid exposure TECHNIQUE: Imaging protocol: XR of the chest Views: 1 view. COMPARISON: CR (CHEST, ) 07/08/2020 12:13 PM FINDINGS: Lungs: Parenchymal densities are noted in the left lower lobe consistent with pneumonia. These findings are new since prior examination. Low lung volumes are seen. Pleural space: Unremarkable. No pleural effusion. No pneumothorax. Heart/Mediastinum: Unremarkable. No cardiomegaly. Bones/joints: Unremarkable. XR/XR chest 1V portable [id number] IMPRESSION: 1. Left lower lobe pneumonia 2. Low lung volumes. 3. Otherwise negative examination Dictated By:Garrick Gage Signed By:Nigel Gage Date/Time:07/22/20 163 DD/ 1631 CTA Chest: Radiologist's impression: [address] [place] [address] CT Scan Report Signed Patient: Ramon Wallace #: [id number] : 1960Acct#:[id number] Age/Sex: 60 / FADM Date: 07/22/20 [facility] Attending Dr: Ordering Provider/Ordering MD: Gerald Mas MD, [facility] Date of Service: 07/22/20 Procedure(s): CT angio chest PE protcl [id number] Accession Number(s): [id number] Report Number: [id number] PROCEDURE INFORMATION: Exam: CT Angiography Chest With Contrast Exam date and time: 07/22/2020 5:34 PM Age: 60 years old Clinical indication: Fever and shortness of breath; Additional info: SOB, fever TECHNIQUE: Imaging protocol: Computed tomographic angiography of the chest with intravenous contrast. 3D rendering (Not supervised by radiologist): MIP and/or 3D reconstructed images were created by the technologist. Radiation optimization: All CT scans at this facility use at least one of these dose optimization techniques: automated exposure control; mA and/or kV adjustment per patient size (includes targeted exams where dose is matched to clinical indication); or iterative reconstruction. Contrast material: OMNIPAQUE 350; Contrast volume: 71 ml; Contrast route: INTRAVENOUS (IV); COMPARISON: CR (CHEST, ) 07/22/2020 3:23 PM RADIATION DOSE METRICS: Total DLP (mGy-cm): 474.03 FINDINGS: Pulmonary arteries: No filling defects identified within the pulmonary arteries. Some portions of the arteries are partially obscured by motion artifact. Aorta: Unremarkable. No aortic aneurysm. No aortic dissection. Lungs: Dense patchy ground-glass opacities in the left lower lobe. Mild patchy scattered ground-glass opacities throughout the other lung lobes. Pleural space: Unremarkable. No pneumothorax. No pleural effusion. Heart: Unremarkable. No cardiomegaly. No pericardial effusion. Lymph nodes: Multiple subcentimeter mediastinal and hilar lymph nodes are most likely reactive. Gallbladder and bile ducts: Cholecystectomy. Thyroid: Subcentimeter hypodense nodules in the thyroid lobes. No follow-up is recommended. Bones/joints: Unremarkable. No acute fracture. Soft tissues: Unremarkable. CT/CT angio chest PE protcl [id number] IMPRESSION: 1. No evidence for pulmonary embolus. 2. Multilobar pneumonia, greatest in the left lower lobe. This pattern can be seen with COVID-19 pneumonia, as well as other infectious etiologies. Radiation Dose CTDIVOL = (mGy): DLP = 474.03 (mGy-cm) Dictated By:Yoseph Andrade Signed By:Yoseph AndradeSignkamaljit Date/Time:07/22/201805 DD/ 03 EKG Data: EKG 1: Attestation: I personally reviewed and interpreted this EKG as follows: EKG interpretation date: 07/22/20 EKG interpretation time: 15:24 Prior EKG tracings: not available for review Interpretation: Normal sinus rhythm. Heart rate 68 bpm. Left axis deviation. LVH. Q wave in V1 V2. COVID Results: SARS-CoV-2 Antigen (Rapid) Positive (Negative) H 07/22/20 16:00 07/22/20 Nasal/Oral Coronavirus 2019 PCR Pending 07/22/20 16:00 07/22/20 Bamlanivimab Consideration Inclusion/Exclusion Criteria age not >/= 65 (DO NOT GIVE) and weight >/= 40kg positive rapid antigen test at [facility] BMI >/= 35, diabetes and hypertension needs hospitalization (DO NOT GIVE) Plan for treatment Does not meet criteria for BAM infusion Discharge Plan Discharge Patient Disposition: Admitted As Inpatient Admit Provider: Raad Chung Clinical Impression: Pneumonia due to COVID-19 virus, Metabolic encephalopathy, Acute delirium Condition: Stable Coding Level of Care Code ED Executive Assistant To President for Chg Fwd Exam Detailed
--- NOTE | 2020-07-22 16:18 | PC.NURSE ---
Gives short answers. Not complete sentences. Have to help with the words to complete or convey what pt is trying to say. It is unknown if this is normal for the pt. States she lives alone
[2020-07-22 16:24] LABS: Basophils % 0.3 %; Hemoglobin 11.9 g/dL (11.5-15.3); Lymphocytes # 0.8 10^3/uL (0.8-4.8); Lymphocytes % 10.2 %; Mean Corpuscular HGB Conc 33.1 g/dL (30.0-36.0); Mean Corpuscular Hemoglobin 27.6 pg (28.0-34.0); Mean Corpuscular Volume 83.5 fL (81-99); Mean Platelet Volume 10.1 fL (7.4-10.4); Monocytes # 0.5 10^3/uL (0.2-0.9); Neutrophils # 6.62 10^3/uL (1.8-7.7); Neutrophils % 83.1 %; Nucleated Red Blood Cells % 0 %; Platelet Count 304 10^3/cmm (130-400); Red Blood Count 4.31 10^6/uL (4.1-5.3); Red Cell Distribution Width 13.3 % (12.1-15.1)
[2020-07-22 16:37] LABS: INR 1.01 (0.8-1.2)
[2020-07-22 16:39] LABS: D Dimer 2.67 ug/mIFEU (0-0.59)
[2020-07-22 16:42] LABS: Lactic Sepsis W/Reflex 1.2 mmol/L (0.5-2.2)
[2020-07-22 16:46] LABS: Troponin T (5th) Once 27 ng/L (0-10)
--- NOTE | 2020-07-22 16:56 | CTR_ITS ---
PROCEDURE INFORMATION: Exam: CT Angiography Chest With Contrast Exam date and time: 07/22/2020 5:34 PM Age: 60 years old Clinical indication: Fever and shortness of breath; Additional info: SOB, fever TECHNIQUE: Imaging protocol: Computed tomographic angiography of the chest with intravenous contrast. 3D rendering (Not supervised by radiologist): MIP and/or 3D reconstructed images were created by the technologist. Radiation optimization: All CT scans at this facility use at least one of these dose optimization techniques: automated exposure control; mA and/or kV adjustment per patient size (includes targeted exams where dose is matched to clinical indication); or iterative reconstruction. Contrast material: OMNIPAQUE 350; Contrast volume: 71 ml; Contrast route: INTRAVENOUS (IV); COMPARISON: CR (CHEST, ) 07/22/2020 3:23 PM RADIATION DOSE METRICS: Total DLP (mGy-cm): 474.03 FINDINGS: Pulmonary arteries: No filling defects identified within the pulmonary arteries. Some portions of the arteries are partially obscured by motion artifact. Aorta: Unremarkable. No aortic aneurysm. No aortic dissection. Lungs: Dense patchy ground-glass opacities in the left lower lobe. Mild patchy scattered ground-glass opacities throughout the other lung lobes. Pleural space: Unremarkable. No pneumothorax. No pleural effusion. Heart: Unremarkable. No cardiomegaly. No pericardial effusion. Lymph nodes: Multiple subcentimeter mediastinal and hilar lymph nodes are most likely reactive. Gallbladder and bile ducts: Cholecystectomy. Thyroid: Subcentimeter hypodense nodules in the thyroid lobes. No follow-up is recommended. Bones/joints: Unremarkable. No acute fracture. Soft tissues: Unremarkable. CT/CT angio chest PE protcl [id number] IMPRESSION: 1. No evidence for pulmonary embolus. 2. Multilobar pneumonia, greatest in the left lower lobe. This pattern can be seen with COVID-19 pneumonia, as well as other infectious etiologies. Radiation Dose CTDIVOL = (mGy): DLP = 474.03 (mGy-cm)
[2020-07-22 17:03] LABS: Alanine Aminotransferase 24 U/L (0-33); Albumin Level 3.6 g/dL (3.5-5.2); Alkaline Phosphatase 114 IU/L (35-105); Anion Gap 19.6 (5-19); Aspartate Amino Transferase 17 U/L (0-32); Blood Urea Nitrogen 30 mg/dL (8-23); C Reactive Protein 45.1 mg/L (0.0-4.9); Calcium 8.8 mg/dL (8.5-10.5); Carbon Dioxide 22 mmol/L (22-29); Chloride 88 mmol/L (98-107); Globulin 2.4 g/dL (1.3-4.6); Glomerular Filtration Rate 56.6 mL/min (90-130); Glucose 481 mg/dL (65-115); Lactate Dehydrogenase 210 U/L (135-214); Osmolality Calculated 285 mOsm/kg (285-295); Potassium 5.6 mmol/L (3.5-5.1); Sodium 124 mmol/L (136-145); Total Bilirubin 0.5 mg/dL (0.15-1.2)
[2020-07-22 17:07] LABS: Amphetamines Screen Urine Negative (Negative); Barbiturates Screen Urine Negative (Negative); Benzodiazepines Screen Urine Negative (Negative); Cocaine Screen Urine Negative (Negative); Opiate Screen Urine Negative (Negative); PCP Screen Urine Negative (Negative); THC Screen Urine Negative (Negative)
[2020-07-22 17:14] LABS: Influenza A by IFA Negative (Negative); Influenza B by IFA Negative (Negative)
[2020-07-22 17:15] LABS: SARS Covid-2 Antigen Positive (Negative)
[2020-07-22 17:38] LABS: Add Urine Culture? No; Add Urine Microscopic? YES; Amorphous Sediment Urine TRACE /hpf; Bacteria Urine TRACE /hpf; Bilirubin Urine Neg (Negative); Blood Urine Neg (Negative); Glucose Urine UA 4+ (Normal); Ketones Urine Negative (Negative); Leukocyte Esterase Urine Negative (Negative); Nitrate Urine Negative (Negative); Protein Urine 1+ (Negative); Urine Appearance Clear (CLEAR); Urine Color Straw (Yellow); Urobilinogen Urine Norm (Negative); pH Urine 5 (5-7)
[2020-07-22] MEDS: iohexol 350 mg/mL 100 mL Btl IV (17:54)
--- NOTE | 2020-07-22 18:48 | PM.HP ---
Providers/Chief Complaint Primary Care Provider: Neftaly Brambila MD Chief Complaint: WEAKNESS; COVID EXPOSURE; NAUSEA History of Present Illness Hilda Wallace is a 60 year old female left upper, left parietal, left occipital CVA, with residual productive aphasia, history of signing out AMA 08/04/2019 after stroke, history of history of hypertension, history of insulin-dependent type 2 diabetes mellitus, poorly controlled type 2 diabetes mellitus with last A1c C 13.7, history of right humeral fracture, history of recurrent falls, history of recurrent confusion, discharged 07/10/2020 for altered mental status likely secondary to recurrent CVA, concerning for embolic event, possible seizures, humeral fracture, high risk of metabolic encephalopathy from temporal lobe encephalomalacia who presents to [facility] due to confusion, fevers Patient was brought here by EMS due to fevers, confusion. Currently patient is alert, sitting up in bed, not oriented to place, not oriented to time, I know her well, she usually is fairly scattered, but you can get a straight answer from her eventually, today I cannot get any straight answers, she does not know why she is here, but does then subsequently tell me that she just not been feeling well, having diarrhea, fatigue, malaise, poor appetite. Denies chest pain, denies shortness of breath. She does not know much about her medical history. She does not know that if she has had any surgeries. She cannot tell me much, just that she is just not feeling well. Denies neck pain, denies headaches, denies blurry vision. Review of Systems Const: Reports: fever(s), chills, body aches, fatigue and malaise Eyes: Denies: change in vision or blurry vision ENMT: Denies: nasal congestion Resp: Reports: non-productive cough; Denies: dyspnea, productive cough or wheezing GI: Reports: diarrhea; Denies: abdominal pain, nausea or vomiting : Denies: flank pain, dysuria or urinary frequency Musc: Denies: neck pain or back pain Skin/Breast: Denies: rash Neuro: Denies: headache(s) or dizziness Medications/Allergies Home Medications Medication Instructions Recorded Confirmed Last Taken Type hydrochlorothiazide 50 mg tablet 50 mg PO QAM #90 tab 01/28/20 07/22/20 07/02/20 Rx tramadol 50 mg tablet 50 mg PO Q6H PRN #120 tab 03/27/20 07/22/20 Unknown Rx allopurinol 300 mg tablet 300 mg PO DAILY #90 tab 05/03/20 07/22/20 07/02/20 Rx duloxetine 60 mg capsule,delayed 60 mg PO DAILY #90 cap 05/03/20 07/22/20 07/02/20 Rx release lisinopril 10 mg PO DAILY 07/03/20 07/22/20 07/02/20 History tizanidine 6 mg PO BEDTIME PRN 07/03/20 07/22/20 Unknown History atorvastatin 80 mg PO DAILY 07/08/20 07/22/20 Unknown History clopidogrel 75 mg PO DAILY 07/08/20 07/22/20 Unknown History hydrocodone-acetaminophen 1 tab PO Q4H PRN 07/08/20 07/22/20 Unknown History metoprolol tartrate 37.5 mg PO BID 07/08/20 07/22/20 Unknown History apixaban [Eliquis] 5 mg PO Q12H #60 tab 07/10/20 07/22/20 Unknown Rx insulin aspart U-100 [Novolog 60 unit SUBCUT TID #45 ml 07/10/20 07/22/20 07/02/20 Rx Flexpen U-100 Insulin] levetiracetam 500 mg PO Q12H #30 tab 07/10/20 07/22/20 Unknown Rx pantoprazole 40 mg PO DAILY #30 tab 07/10/20 07/22/20 Unknown Rx spironolactone 50 mg tablet 50 mg PO QAM 30 Days #30 tab 07/20/20 07/22/20 Unknown Rx Allergies Allergy/AdvReac Type Severity Reaction Status Date / Time clarithromycin [From Biaxin] Allergy nausea Verified 07/19/20 13:56 clindamycin Allergy shock Verified 07/19/20 13:56 diclofenac Allergy swelling Verified 07/19/20 13:56 enalapril Allergy unknown Verified 07/19/20 13:56 ketorolac [From Toradol] Allergy short of Verified 07/19/20 13:56 breath losartan [From Cozaar] Allergy shock Verified 07/19/20 13:56 nifedipine [From Procardia] Allergy hives Verified 07/19/20 13:56 pregabalin [From Lyrica] Allergy unknown Verified 07/19/20 13:56 Sulfa (Sulfonamide Allergy anaphylasix Verified 07/19/20 13:56 Antibiotics) PFSH Acute PFSH: Medical History Acute hypersomnolence disorder Diabetes mellitus with neuropathy History of CVA (cerebrovascular accident) Mixed hyperlipidemia LEROY on CPAP Surgical History History of bursectomy History of cholecystectomy History of colonoscopy History of hysterectomy for indication other than malignancy History of nasal sinusotomy History of repair of rotator cuff History of tonsillectomy Hx of adenoidectomy Status post anal fissurectomy Family History Mother CAD (coronary artery disease) Other Asthma Cancer Diabetes Heart disease Hypertension Stroke Social History Smoking and tobacco status: former smoker Alcohol intake: current Alcohol intake frequency: few times a month History of recent travel: No Vitals/I&O/Wt Last Vital Signs Temp 102.3 F H 07/22/20 14:41 Pulse 66 07/22/20 17:10 Resp 18 07/22/20 17:10 BP 119/50 07/22/20 17:10 Pulse Ox 95 07/22/20 17:10 Weight last 48 hrs Weight 108.862 kg Physical Exam Const: COMMON NORMALS: no acute distress GENERAL APPEARANCE: cooperative, disheveled and ill appearing NUTRITIONAL APPEARANCE: obese ORIENTATION/CONSCIOUSNESS: Yes awake and Yes confused; not oriented to person, not oriented to place and not oriented to time HENMT: COMMON NORMALS: normocephalic HEAD & SCALP: normocephalic Eye: COMMON NORMALS: Equal, round and reactive pupils present, EOMs intact bilaterally and no papilledema GENERAL EYE: appearance normal, both eyes and all related structures PUPIL: Yes Equal, round and reactive pupils present DIRECT OPHTHALMOSCOPY: Yes no papilledema Neck/C-Spine: COMMON NORMALS: full ROM, no lymphadenopathy, no JVD and Thyroid normal THYROID: Thyroid normal Lymph: LYMPHATIC: no lymphadenopathy noted Resp: COMMON NORMALS: normal respiratory effort, No retractions, No use of accessory muscles and clear to auscultation bilaterally AUSCULTATION: diminished lung sounds bilateral in the lower lung prater Cardio: COMMON NORMALS: no JVD, regular rate, regular rhythm, S1 normal heart sound present, S2 normal heart sound present, No gallops present (Cardio), No clicks present (Cardio) and No murmurs present (Cardio) RATE: regular rate RHYTHM: regular rhythm HEART SOUNDS: S1 normal heart sound present and S2 normal heart sound present GI: COMMON NORMALS: Normal to inspection, nondistended, normoactive bowel sounds present, Soft to palpation, non-tender and No hepatosplenomegaly present PALPATION: Yes Soft to palpation and Yes No hepatosplenomegaly present Extremity: COMMON NORMALS: normal to inspection, full ROM and no pedal edema Neuro: COMMON NORMALS: moves all extremities SENSORIUM/ORIENTATION: Yes alert, Yes oriented to person, No oriented to place, No oriented to time and Yes fluctuating sensorium OTHER: Cannot follow neurologic testing, is fairly confused, sitting up in bed, moving upper lower extremities, does not really follow commands, fairly scattered Psych: COMMON NORMALS: mental status grossly normal, Normal thought process present and cooperative THOUGHT PROCESS: Normal thought process present Data : 07/22/20 15:50 07/22/20 15:50 Micro: Microbiology 07/22/20 16:31 Blood Culture - Preliminary Blood SPECIMEN COLLECTED A&P Assessment and plan (1) Acute delirium: -Secondary to COVID-19 pneumonia -Has a history of CVA, embolic strokes, seizures -Has 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, has a high risk of developing severe metabolic encephalopathy -However given her degree of confusion, this is certainly not normal for her, will perform a lumbar puncture -I have advised Dr. Mas to do an LP, LP studies ordered -Start on broad-spectrum antibiotics vancomycin, Rocephin, azithromycin, getting Decadron -We will await LP studies Status: Acute (2) Pneumonia due to COVID-19 virus: -Full code -Eliquis for DVT prophylaxis -We will get remdesivir -Decadron -Vitamin C, zinc -Advair albuterol -Monitor QTC daily Status: Acute (3) Metabolic encephalopathy: Status: Acute (4) Recurrent falls: Status: Acute (5) Essential hypertension: Status: Acute (6) Wernicke dysphasia: Status: Acute (7) Diabetes mellitus with neuropathy: Takes short acting 50 units 3 times daily Last hemoglobin A1c 13.6 Status: Acute Qualifiers: Diabetes mellitus type: type 2 Diabetes mellitus jail insulin use: with jail use Qualified Code(s): E11.40 - Type 2 diabetes mellitus with diabetic neuropathy, unspecified; Z79.4 - director long term care (current) use of insulin (8) Mixed hyperlipidemia: Continue home medication Status: Acute (9) Poor social situation: Will need [place] [facility] placement Status: Acute (10) Multinodular thyroid: Will require outpatient follow-up Status: Acute (11) Acute embolic stroke: Status: Acute (12) Right humeral fracture: Should be in a sling Status: Acute (13) DELORIS (acute kidney injury): Continue IV fluids Status: Acute (14) Hyperkalemia: Monitor Status: Acute (15) Hyponatremia: Likely pseudohyponatremia, will get IV fluids, correct hyperglycemia Status: Acute Additional A&P Information Pseudohyponatremia, secondary to hyperglycemia Attestations Medical Necessity Statement*: Patient requires hospitalization inpatient, greater than 2 midnights, for acute delirium, COVID-19 pneumonia, Coding Level of Care Code Acute Bobbin Sorter for [facility] Fwd Diagnoses Acute delirium R41.0 Pneumonia due to COVID-19 virus U07.1; J12.89 Metabolic encephalopathy G93.41 Recurrent falls R29.6 Essential hypertension I10 Wernicke dysphasia R47.02 Diabetes mellitus with neuropathy E11.40; Z79.4 Diabetes mellitus type: type 2 Diabetes mellitus jail insulin use: with assistant terminal manager use Mixed hyperlipidemia E78.2 Poor social situation Z65.9 Multinodular thyroid E04.2 Acute embolic stroke I63.9 Right humeral fracture S42.301A DELORIS (acute kidney injury) N17.9 Hyperkalemia E87.5 Hyponatremia E87.1
[2020-07-22 22:02] LABS: Glucose Point of Care 432 mg/dL (70-110)
[2020-07-22 22:28] LABS: CSF Mononuclear # 0.001 10^3/uL (50-90); Mononuclear WBC CSF % 100 % (50-90); Polynuclear WBC CSF % 0 % (0-10); Red Blood Cell CSF 0 10^3/uL (0-0); White Blood Cell CSF 1 /uL (0-5)
[2020-07-22 23:02] LABS: Appearance CSF HAZY (CLEAR); Color CSF COLORLESS (COLORLESS); Glucose CSF 244 mg/dL (40-70); Total Protein CSF 0 mg/dL (15-45)
[2020-07-22] MEDS: sodium chloride 0.9% 1,000 ML 125 ML IV (23:05)
[2020-07-22] MEDS: cefTRIAXone 1,000 MG in sodium chloride 0.9% (plus) 50 ML 100 MG IV (23:05)
[2020-07-22] MEDS: apixaban 5 mg Tablet PO (23:06)
[2020-07-22] MEDS: levETIRAcetam 500 mg Tablet PO (23:06)
[2020-07-22] MEDS: dexamethasone 4 mg/mL INJ 6 MG IVP (23:25)
[2020-07-22] MEDS: azithromycin 500 MG in sodium chloride 0.9% 250 ML 250 MG IV (23:50)
[2020-07-23] VITALS (15 sets, daily range): BP systolic 98–126; BP diastolic 52–78; PULSE 48–81; RESP 16–19; TEMP 36.5–37.3; O2SAT 91–98
[2020-07-23 00:01] LABS: Glucose Point of Care 393 mg/dL (70-110)
[2020-07-23] MEDS: albuterol 8 gm MDI 1 PUFF INHALATION ×5 (00:13→20:20)
[2020-07-23] MEDS: tizanidine 4 mg Tablet 6 MG PO (01:09)
[2020-07-23] MEDS: ondansetron 2 mg/ML SDV 2 mL 4 MG IVP (01:09)
[2020-07-23] MEDS: vancomycin 1,500 MG/300 ML PIGGYBACK 200 MG IV ×2 (01:13→18:33)
[2020-07-23 04:29] LABS: Basophils % 0.2 %; Hematocrit 35.4 % (37.0-47.0); Hemoglobin 11.5 g/dL (11.5-15.3); Lymphocytes % 12.3 %; Mean Corpuscular HGB Conc 32.5 g/dL (30.0-36.0); Mean Corpuscular Hemoglobin 27.8 pg (28.0-34.0); Mean Corpuscular Volume 85.7 fL (81-99); Mean Platelet Volume 9.6 fL (7.4-10.4); Monocytes # 0.3 10^3/uL (0.2-0.9); Monocytes % 3.2 %; Neutrophils # 6.83 10^3/uL (1.8-7.7); Neutrophils % 84.1 %; Nucleated Red Blood Cells % 0 %; Platelet Count 287 10^3/cmm (130-400); Red Blood Count 4.13 10^6/uL (4.1-5.3); Red Cell Distribution Width 13.5 % (12.1-15.1); White Blood Count 8.1 10^3/uL (4.0-10.0)
[2020-07-23 05:04] LABS: Alanine Aminotransferase 20 U/L (0-33); Albumin Level 3.3 g/dL (3.5-5.2); Alkaline Phosphatase 103 IU/L (35-105); Anion Gap 16.8 (5-19); Aspartate Amino Transferase 16 U/L (0-32); Blood Urea Nitrogen 34 mg/dL (8-23); C Reactive Protein 76.3 mg/L (0.0-4.9); Calcium 8.8 mg/dL (8.5-10.5); Carbon Dioxide 21 mmol/L (22-29); Chloride 94 mmol/L (98-107); Globulin 2.5 g/dL (1.3-4.6); Glomerular Filtration Rate 41.8 mL/min (90-130); Glucose 236 mg/dL (65-115); Magnesium 1.4 mg/dL (1.7-2.3); Osmolality Calculated 279 mOsm/kg (285-295); Phosphorus 3.9 mg/dL (2.5-4.5); Potassium 4.8 mmol/L (3.5-5.1); Sodium 127 mmol/L (136-145); Total Bilirubin 0.2 mg/dL (0.15-1.2); Total Protein 5.8 g/dL (6.6-8.7)
[2020-07-23 05:06] LABS: Lactate (Lactic Acid level) 1.6 mmol/L (0.5-2.2)
[2020-07-23 05:16] LABS: NT Pro B Type Natriuretic Pept 671 pg/mL (0-125); Procalcitonin 0.28 ng/mL (0-0.5)
[2020-07-23] MEDS: spironolactone 25 mg Tablet 50 MG PO (05:16)
[2020-07-23] MEDS: sodium chloride 0.9% 1,000 ML 125 ML IV (05:16)
[2020-07-23] MEDS: hydroCHLOROthiazide 25 mg Tablet PO (05:16)
[2020-07-23 05:27] LABS: Chol HDL Ratio 4.37 mg/dL (0.0-4.40); Cholesterol 131 mg/dL (0-200); Creatine Phosphokinase 52 U/L (26-192); HDL Cholesterol 30 mg/dL (60-100); LDL Cholesterol Calculated 78 mg/dL (50-129); Triglycerides 117 mg/dL (0-150)
--- NOTE | 2020-07-23 06:00 | ECG_ITS ---
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: : 1960 Requested By: Raad Chung Order Number: [id number] Kyler MD: VETO LATHAM Measurements Intervals Simpson Rate: 50 P: 263 FL: 85 QRS: -24 QRSD: 163 T: 25 QT: 523 QTc: 478 Interpretive Statements Sinus BRADYCARDIA INTRAVENTRICULAR CONDUCTION DELAY [130+ ms QRS DURATION] LATERAL MYOCARDIAL INFARCTION [40+ ms Q WAVE AND/OR ST/T ABNORMALITY IN I/aVL/V5/V6], PROBABLY OLD Compared to ECG 07/22/2020 15:24:26 No sig change Electronically Signed On 07-23-2020 15:48:17 BILLING REPRESENTATIVE by VETO LATHAM [id number]
[2020-07-23 06:47] LABS: D Dimer 1.81 ug/mIFEU (0-0.59)
[2020-07-23 06:49] LABS: Glucose Point of Care 305 mg/dL (70-110)
--- NOTE | 2020-07-23 07:00 | XRR_ITS ---
PROCEDURE INFORMATION: Exam: XR Chest, 1 View Exam date and time: 07/23/2020 10:10 AM Age: 60 years old Clinical indication: Shortness of breath; Additional info: SOB TECHNIQUE: Imaging protocol: XR of the chest Views: 1 view. COMPARISON: CR (CHEST, ) 07/22/2020 3:23 PM FINDINGS: Lungs: Again noted is left lower lobe infiltrate consistent with pneumonia. There is been only minimal change since the previous radiograph from 07/22/2020. The right lung remains clear. Pleural space: Unremarkable. No pleural effusion. No pneumothorax. Heart/Mediastinum: Unremarkable. No cardiomegaly. Bones/joints: Unremarkable. XR/XR chest 1V portable [id number] IMPRESSION: Left lower lobe pneumonia with minimal change since previous study.
[2020-07-23] MEDS: lisinopril 10 mg Tablet PO (08:07)
[2020-07-23] MEDS: ascorbic acid 500 mg Tablet PO ×2 (08:07→17:06)
[2020-07-23] MEDS: atorvastatin 40 mg Tablet 80 MG PO (08:07)
[2020-07-23] MEDS: pantoprazole DR 40 mg Tablet PO (08:07)
[2020-07-23] MEDS: zinc gluconate 50 mg Tablet PO (08:07)
[2020-07-23] MEDS: metoprolol tartrate 25 mg Tablet 37.5 MG PO ×2 (08:07→17:06)
[2020-07-23] MEDS: allopurinol 300 mg Tablet PO (08:07)
[2020-07-23] MEDS: clopidogrel 75 mg Tablet PO (08:07)
[2020-07-23 08:24] LABS: Thyroid Stimulating Hormone 1.17 uIU/mL (0.27-4.20)
[2020-07-23 09:02] LABS: Estmated Average Glucose 318; Hemoglobin A1C 12.7 % (4.0-6.0)
[2020-07-23] MEDS: apixaban 5 mg Tablet PO ×2 (09:29→22:49)
[2020-07-23] MEDS: levETIRAcetam 500 mg Tablet PO ×2 (09:30→22:49)
--- NOTE | 2020-07-23 10:53 | P.PN_ITS ---
Subjective Subjective: Interval history: This morning patient was examined, she is in bed, covered up with many blankets, when I try to examine her speak to her, gets quite agitated, tells me to cover her back up, tells me that it feels chilly here, severely against a scattered during examination, cannot give me a straight answer does follow commands more this morning, no chest pain, no shortness of breath, is on room air, afebrile Vitals/I&O/Wt Last Vital Signs Temp 97.8 F 07/23/20 08:00 Pulse 81 07/23/20 08:27 Resp 16 07/23/20 08:27 BP 118/76 07/23/20 08:00 Pulse Ox 94 07/23/20 08:27 07/22/20 07/23/20 07/23/20 22:59 06:59 14:59 Intake Total 200 / 200 1492.917 / 1692.917 649.167 / 649.167 Output Total 850 / 850 Balance 200 / 200 642.917 / 842.917 649.167 / 649.167 Weight last 48 hrs Weight 108.862 kg Physical Exam Const: COMMON NORMALS: no acute distress and alert NUTRITIONAL APPEARANCE: obese ORIENTATION/CONSCIOUSNESS: Yes awake, Yes oriented to person and Yes confused; not oriented to place and not oriented to time HENMT: COMMON NORMALS: normocephalic HEAD & SCALP: normocephalic Neck/C-Spine: COMMON NORMALS: no JVD Resp: COMMON NORMALS: normal respiratory effort, No retractions, No use of accessory muscles and clear to auscultation bilaterally AUSCULTATION: clear to auscultation bilaterally Cardio: COMMON NORMALS: no JVD, regular rate, regular rhythm, S1 normal heart sound present, S2 normal heart sound present and No murmurs present (Cardio) RATE: regular rate RHYTHM: regular rhythm HEART SOUNDS: S1 normal heart sound present and S2 normal heart sound present GI: COMMON NORMALS: Normal to inspection, nondistended, normoactive bowel sounds present, Soft to palpation, non-tender and No hepatosplenomegaly present PALPATION: Yes Soft to palpation and Yes No hepatosplenomegaly present OTHER: Obese abdomen Extremity: COMMON NORMALS: capillary refill normal, no clubbing, cyanosis or edema and no pedal edema Neuro: SENSORIUM/ORIENTATION: Yes alert, Yes oriented to person, No oriented to place and No oriented to time OTHER: Quite agitated this morning, does not follow neurologic testing Psych: APPEARANCE: Yes unkempt ATTITUDE: Yes agitated SPEECH: Yes rapid MOOD & AFFECT: Yes irritable THOUGHT PROCESS: confused Data : 07/23/20 04:00 07/23/20 04:00 Micro: Microbiology 07/22/20 04:00 MRSA Culture - Final Nose 07/22/20 19:41 Gram Stain - Final Cerebrospinal Fluid 07/22/20 16:31 Blood Culture - Preliminary Blood SPECIMEN COLLECTED A&P Assessment and plan (1) Acute delirium: -Secondary to COVID-19 pneumonia -Has a history of CVA, embolic strokes, seizures -Has 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, has a high risk of developing severe metabolic encephalopathy -She is a bit back to baseline, fairly scattered, a bit more agitated than normal -LP does not show any significant signs of bacterial or viral meningitis -Continue on broad-spectrum antibiotics vancomycin, Rocephin, azithromycin, getting Decadron -Monitor for neuro agitation given Decadron -Haldol as needed for anxiety -Follow culture results, follow LP studies, follow viral studies Status: Acute (2) Pneumonia due to COVID-19 virus: -Full code -Eliquis for DVT prophylaxis -Remdesivir -Decadron -On vancomycin, Rocephin, azithromycin for secondary bacterial multilobar pneumo tavon -Vitamin C, zinc -Advair albuterol -EKG shows junctional bradycardia, interventricular conduction delay -QTc 478 ms Status: Acute (3) Metabolic encephalopathy: Secondary to COVID-19, history of temporal lobe encephalomalacia Status: Acute (4) Recurrent falls: PT OT Status: Acute (5) Essential hypertension: Continue home blood pressure medications Status: Acute (6) Diabetes mellitus with neuropathy: Takes short acting 50 units 3 times daily Last hemoglobin A1c 13.6 Status: Acute Qualifiers: Diabetes mellitus type: type 2 Diabetes mellitus remote computer terminal operator insulin use: with senior care use Qualified Code(s): E11.40 - Type 2 diabetes mellitus with diabetic neuropathy, unspecified; Z79.4 - [facility] (current) use of insulin (7) Mixed hyperlipidemia: Continue home medication Status: Acute (8) Poor social situation: -Both parents were patient's primary caregiver -Especially after her strokes a year ago and recurrent strokes, she has had decline in her cognitive functioning, physical deconditioning, will need care home placement -There is been many concerns for her poor social situation as outpatient, has had ER visits for this -Her mother is on hospice, currently at [facility], with COVID-19 -Father has severe dementia, with COVID-19 embrocated -I think the best plan for her is [facility] where her family is admitted Status: Acute (9) Multinodular thyroid: Will require outpatient follow-up Status: Acute (10) Acute embolic stroke: On Eliquis, statin, aspirin Status: Acute (11) Right humeral fracture: Should be in a sling She has not follow-up with Dr. Wood, will repeat x-ray Status: Acute (12) DELORIS (acute kidney injury): Continue IV fluids Status: Acute (13) Hyperkalemia: resolved Status: Acute (14) Hyponatremia: Likely pseudohyponatremia, will get IV fluids, correct hyperglycemia Status: Acute (15) Bilateral pneumonia: Status: Acute (16) Hypomagnesemia: will replace Status: Acute Additional A&P Information Plan for today, continue remdesivir,, continue antibiotics, follow cultures, PT OT, speech therapy evaluation, monitor mentation, replace electrolytes Attestations Medical Necessity Statement*: Patient cards hospitalization for COVID-19 pneumonia, multilobar pneumonia, concern for secondary bacterial infection, acute delirium, hypomagnesemia, hyponatremia, poor social situation, Time Spent in Patient Care: Greater than 35 minutes (>than 50% of time spent in counselling and/or direct pt care on unit) . Coding Level of Care Code Acute Hand Sizer for [facility] Fwd Diagnoses Acute delirium R41.0 Pneumonia due to COVID-19 virus U07.1; J12.89 Metabolic encephalopathy G93.41 Recurrent falls R29.6 Essential hypertension I10 Diabetes mellitus with neuropathy E11.40; Z79.4 Diabetes mellitus type: type 2 Diabetes mellitus remote computer terminal operator insulin use: with senior care use Mixed hyperlipidemia E78.2 Poor social situation Z65.9 Multinodular thyroid E04.2 Acute embolic stroke I63.9 Right humeral fracture S42.301A DELORIS (acute kidney injury) N17.9 Hyperkalemia E87.5 Hyponatremia E87.1 Bilateral pneumonia J18.9 Hypomagnesemia E83.42
--- NOTE | 2020-07-23 11:03 | XRR_ITS ---
PROCEDURE INFORMATION: Exam: XR Right Humerus Exam date and time: 07/23/2020 11:04 AM Age: 60 years old Clinical indication: Pain; Upper arm; Right; Additional info: Humeral FX TECHNIQUE: Imaging protocol: XR Right humerus Views: 2 or more views. COMPARISON: CR (UP EXM, ) 07/08/2020 12:30 PM FINDINGS: Bones/joints: There is no interval change in alignment of the fracture of the right proximal humerus/surgical neck. There is interval bony remodeling with immature callus. No new fracture or dislocation compared to the prior exam. Postoperative changes of a rotator cuff repair are noted. Soft tissues: Normal. XR/[place] [id number] IMPRESSION: There is no interval change in alignment of the fracture of the right proximal humerus/surgical neck. There is ongoing bony repair with immature callus. No acute bony abnormality.
[2020-07-23] MEDS: magnesium sulfate premix 2 GM/50 ML PIGGYBACK IV (11:28)
[2020-07-23 11:30] LABS: Glucose Point of Care 424 mg/dL (70-110)
--- NOTE | 2020-07-23 14:06 | PC.PT ---
PT note;, received order for right upper extremity sling, patient is pleasant and cooperative, declines placement of sling or immobilizer on right upper extremity, states has 3 of these at home, and feels they cause her more pain.
[2020-07-23] MEDS: sodium chloride 0.9% 1,000 ML 75 ML IV (17:07)
[2020-07-23 17:18] LABS: Glucose Point of Care 314 mg/dL (70-110)
[2020-07-23 20:22] LABS: Glucose Point of Care 323 mg/dL (70-110)
[2020-07-23] MEDS: dexamethasone 4 mg/mL INJ 6 MG IVP (22:48)
[2020-07-23] MEDS: cefTRIAXone 1,000 MG in sodium chloride 0.9% (plus) 50 ML 100 MG IV (22:49)
[2020-07-24] VITALS (10 sets, daily range): BP systolic 114–144; BP diastolic 70–79; PULSE 55–75; RESP 16–20; TEMP 35.8–36.9; O2SAT 94–98
[2020-07-24] MEDS: azithromycin 500 MG in sodium chloride 0.9% 250 ML 250 MG IV (00:09)
[2020-07-24 05:50] LABS: Hematocrit 36.2 % (37.0-47.0); Hemoglobin 11.4 g/dL (11.5-15.3); Lymphocytes # 0.8 10^3/uL (0.8-4.8); Lymphocytes % 12.5 %; Mean Corpuscular HGB Conc 31.5 g/dL (30.0-36.0); Mean Corpuscular Hemoglobin 27.3 pg (28.0-34.0); Mean Corpuscular Volume 86.6 fL (81-99); Mean Platelet Volume 10.6 fL (7.4-10.4); Monocytes # 0.1 10^3/uL (0.2-0.9); Monocytes % 1.8 %; Neutrophils # 5.17 10^3/uL (1.8-7.7); Neutrophils % 85.4 %; Nucleated Red Blood Cells % 0 %; Platelet Count 361 10^3/cmm (130-400); Red Blood Count 4.18 10^6/uL (4.1-5.3); Red Cell Distribution Width 13.5 % (12.1-15.1); White Blood Count 6.1 10^3/uL (4.0-10.0)
[2020-07-24 06:34] LABS: Glucose Point of Care 560 mg/dL (70-110)
[2020-07-24] MEDS: hydroCHLOROthiazide 25 mg Tablet PO (06:37)
[2020-07-24] MEDS: spironolactone 25 mg Tablet 50 MG PO (06:37)
[2020-07-24 06:42] LABS: Lactate (Lactic Acid level) 1.1 mmol/L (0.5-2.2)
[2020-07-24 06:58] LABS: Alanine Aminotransferase 20 U/L (0-33); Albumin Level 3.2 g/dL (3.5-5.2); Alkaline Phosphatase 93 IU/L (35-105); Anion Gap 17.7 (5-19); Aspartate Amino Transferase 19 U/L (0-32); Blood Urea Nitrogen 41 mg/dL (8-23); Calcium 8.6 mg/dL (8.5-10.5); Carbon Dioxide 19 mmol/L (22-29); Chloride 98 mmol/L (98-107); Globulin 3.2 g/dL (1.3-4.6); Glomerular Filtration Rate 45.8 mL/min (90-130); Magnesium 1.8 mg/dL (1.7-2.3); Osmolality Calculated 304 mOsm/kg (285-295); Phosphorus 4.2 mg/dL (2.5-4.5); Sodium 128 mmol/L (136-145); Total Bilirubin 0.2 mg/dL (0.15-1.2); Total Protein 6.4 g/dL (6.6-8.7)
[2020-07-24 06:59] LABS: D Dimer 1.82 ug/mIFEU (0-0.59)
[2020-07-24 07:05] LABS: Creatine Phosphokinase 52 U/L (26-192); NT Pro B Type Natriuretic Pept 550 pg/mL (0-125)
[2020-07-24 07:12] LABS: C Reactive Protein 50.4 mg/L (0.0-4.9)
[2020-07-24 07:19] LABS: Glucose 600 mg/dL (65-115); Potassium 6.7 mmol/L (3.5-5.1)
[2020-07-24] MEDS: albuterol 8 gm MDI 1 PUFF INHALATION ×3 (07:25→15:11)
[2020-07-24 08:03] LABS: Procalcitonin 0.17 ng/mL (0-0.5)
[2020-07-24] MEDS: clopidogrel 75 mg Tablet PO (08:06)
[2020-07-24] MEDS: ascorbic acid 500 mg Tablet PO ×2 (08:06→17:24)
[2020-07-24] MEDS: pantoprazole DR 40 mg Tablet PO (08:06)
[2020-07-24] MEDS: allopurinol 300 mg Tablet PO (08:06)
[2020-07-24] MEDS: zinc gluconate 50 mg Tablet PO (08:06)
[2020-07-24] MEDS: lisinopril 10 mg Tablet PO (08:06)
[2020-07-24] MEDS: atorvastatin 40 mg Tablet 80 MG PO (08:06)
[2020-07-24] MEDS: metoprolol tartrate 25 mg Tablet 37.5 MG PO ×2 (08:06→17:24)
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
[2020-07-24] MEDS: levETIRAcetam 500 mg Tablet PO ×2 (09:52→21:57)
[2020-07-24] MEDS: apixaban 5 mg Tablet PO ×2 (09:52→21:57)
--- NOTE | 2020-07-24 09:54 | PC.NURSE ---
Gave additional [address] Haque's verbal order at 0955am. Will recheck blood sugar in 2 hours.
[2020-07-24 11:18] LABS: Glucose Point of Care 573 mg/dL (70-110)
[2020-07-24 11:18] LABS: Glucose Point of Care 551 mg/dL (70-110)
[2020-07-24 11:18] LABS: Glucose Point of Care 540 mg/dL (70-110)
[2020-07-24] MEDS: sodium chloride 0.9% 1,000 ML 75 ML IV (11:39)
[2020-07-24] MEDS: vancomycin 1,500 MG/300 ML PIGGYBACK 200 MG IV (12:00)
[2020-07-24 15:06] LABS: Alanine Aminotransferase 19 U/L (0-33); Alkaline Phosphatase 86 IU/L (35-105); Blood Urea Nitrogen 37 mg/dL (8-23); Calcium 8.8 mg/dL (8.5-10.5); Carbon Dioxide 18 mmol/L (22-29); Chloride 100 mmol/L (98-107); Creatinine Clr Calc Pharmacy 66.7506; Glomerular Filtration Rate 50.7 mL/min (90-130); Osmolality Calculated 307 mOsm/kg (285-295); Sodium 133 mmol/L (136-145); Total Bilirubin 0.2 mg/dL (0.15-1.2)
[2020-07-24 15:08] LABS: Anion Gap 20.4 (5-19); Aspartate Amino Transferase 19 U/L (0-32); Potassium 5.4 mmol/L (3.5-5.1)
[2020-07-24 15:10] LABS: Glucose 501 mg/dL (65-115)
[2020-07-24] MEDS: diphenhydrAMINE 25 mg Capsule PO (16:28)
[2020-07-24 16:52] LABS: Glucose Point of Care 459 mg/dL (70-110)
[2020-07-24 16:52] LABS: Glucose Point of Care 404 mg/dL (70-110)
--- NOTE | 2020-07-24 16:55 | PM.PN ---
Subjective Subjective: Interval history: Patient keeps repeating that she wants to go home, states she has cats, other sentences that dont make sense such she sleeps in her car in the bedroom, her dad messed up everything, things went downhill since 2013. Confirmed with her PCP that she has expressive aphasia and even at a baseline speaks with a word salad. She has previosuly been reported to social and political studies professor as an outpatient due to deplorable living conditions. 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: no focal neuro deficits, moves extremities in bed Data : 07/24/20 04:00 07/24/20 14:12 Micro: Microbiology 07/23/20 14:00 Blood Culture - Preliminary Blood NEGATIVE TO DATE 07/23/20 14:00 Blood Culture - Preliminary Blood NEGATIVE TO DATE 07/22/20 19:41 Gram Stain - Final Cerebrospinal Fluid CSF Culture - Preliminary 07/22/20 16:31 Blood Culture - Preliminary Blood NEGATIVE TO DATE A&P Assessment and plan (1) Acute delirium: -Patient appears to be trending back to her baseline mentation of having expressive aphasia, expresses frustration at being in the hospital - delirium likely Secondary to COVID-19 pneumonia -Has a history of CVA, embolic strokes, seizures -Has 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, has a high risk of developing severe metabolic encephalopathy -LP does not show any significant signs of bacterial or viral meningitis -Continue on broad-spectrum antibiotics Rocephin, d/c vancomycin as negative MRSA PCR, d/c azithromycin -Haldol as needed for anxiety Status: Acute (2) Pneumonia due to COVID-19 virus: -Remdesivir -Decadron -Vitamin C, zinc -Advair albuterol -EKG shows junctional bradycardia, interventricular conduction delay -QTc 478 ms Status: Acute (3) Metabolic encephalopathy: Secondary to COVID-19, history of temporal lobe encephalomalacia Status: Acute (4) Recurrent falls: PT OT Status: Acute (5) Essential hypertension: Continue home blood pressure medications Status: Acute (6) Diabetes mellitus with neuropathy: Takes short acting 50 units 3 times daily Last hemoglobin A1c 13.6 uncontrolled BS currently likely due to steroids Add Lantus 50 U at night time Status: Acute Qualifiers: Diabetes mellitus type: type 2 Diabetes mellitus laborer marine terminal insulin use: with prison use Qualified Code(s): E11.40 - Type 2 diabetes mellitus with diabetic neuropathy, unspecified; Z79.4 - detention (current) use of insulin (7) Mixed hyperlipidemia: Continue home medication Status: Acute (8) Poor social situation: -Both parents were patient's primary caregiver -Especially after her strokes a year ago and recurrent strokes, she has had decline in her cognitive functioning, physical deconditioning, will need fci placement -There is been many concerns for her poor social situation as outpatient, has had ER visits for this -Her mother is on hospice, currently at [facility], with COVID-19 -Father has severe dementia, with COVID-19 embrocated -I think the best plan for her is [facility] where her family is admitted Status: Acute (9) Multinodular thyroid: Will require outpatient follow-up Status: Acute (10) Acute embolic stroke: On Eliquis, statin, aspirin Status: Acute (11) Right humeral fracture: Should be in a sling She has not follow-up with Dr. Wood, will repeat x-ray Status: Acute (12) DELORIS (acute kidney injury): Continue IV fluids Status: Acute (13) Hyperkalemia: at 6.7 today, improved after several units of insulin Status: Acute (14) Hyponatremia: Likely pseudohyponatremia, will get IV fluids, correct hyperglycemia Status: Acute (15) Bilateral pneumonia: Status: Acute (16) Hypomagnesemia: will replace Status: Acute Attestations Medical Necessity Statement*: needs continued monitoring of respiratpry status, emntal status appears to be trensing to baseline, continue remdisivir, ongoing placement Coding Level of Care Code Acute Account Supervisor for Chg Fwd Diagnoses Acute delirium R41.0 Pneumonia due to COVID-19 virus U07.1; J12.89 Metabolic encephalopathy G93.41 Recurrent falls R29.6 Essential hypertension I10 Diabetes mellitus with neuropathy E11.40; Z79.4 Diabetes mellitus type: type 2 Diabetes mellitus prison insulin use: with laborer marine terminal use Mixed hyperlipidemia E78.2 Poor social situation Z65.9 Multinodular thyroid E04.2 Acute embolic stroke I63.9 Right humeral fracture S42.301A DELORIS (acute kidney injury) N17.9 Hyperkalemia E87.5 Hyponatremia E87.1 Bilateral pneumonia J18.9 Hypomagnesemia E83.42
--- NOTE | 2020-07-24 17:02 | PC.OT ---
OT note: Eval held due to high potassium and high glucose. Will attempt again later as able.
--- NOTE | 2020-07-24 20:03 | PC.RESP ---
Pt refused tx at this time. Pt seemed very agitated and upset about having tx Q4 hours. Pt stated: I will not take those tx's until someone fixes my leg (as she was pointing to her arm.) Pt was not happy about me listening to her lungs or obtaining her vital signs. Notified the nurse of pt's behavior, and encouraged her to call if pt changes her mind about taking her tx's as scheduled. Will continue to monitor the pt.
[2020-07-24 20:44] LABS: Glucose Point of Care 276 mg/dL (70-110)
[2020-07-24] MEDS: insulin glargine 100 units/1 mL 50 UNIT SUBCUT (21:56)
[2020-07-25] VITALS (7 sets, daily range): BP systolic 85–132; BP diastolic 39–70; PULSE 73–86; RESP 15–20; TEMP 36.5–37; O2SAT 94–96
--- NOTE | 2020-07-25 03:25 | PC.NURSE ---
Refused meds Patient has refused all IV medications this shift. This nurse explained the importance of the medications and she still refused and became more agitated. This nurse did help convince patient to take her insulin and oral medications. Patient has also refused vitals through shift.
[2020-07-25 05:17] LABS: Basophils % 0.1 %; Eosinophils % 0.1 %; Hematocrit 36.1 % (37.0-47.0); Hemoglobin 11.5 g/dL (11.5-15.3); Lymphocytes # 1.8 10^3/uL (0.8-4.8); Lymphocytes % 24.6 %; Mean Corpuscular HGB Conc 31.9 g/dL (30.0-36.0); Mean Corpuscular Hemoglobin 27.9 pg (28.0-34.0); Mean Corpuscular Volume 87.6 fL (81-99); Mean Platelet Volume 9.7 fL (7.4-10.4); Monocytes # 0.7 10^3/uL (0.2-0.9); Monocytes % 9.4 %; Neutrophils # 4.74 10^3/uL (1.8-7.7); Neutrophils % 65.4 %; Nucleated Red Blood Cells % 0 %; Platelet Count 392 10^3/cmm (130-400); Red Blood Count 4.12 10^6/uL (4.1-5.3); Red Cell Distribution Width 13.7 % (12.1-15.1); White Blood Count 7.3 10^3/uL (4.0-10.0)
[2020-07-25 05:41] LABS: Alanine Aminotransferase 19 U/L (0-33); Albumin Level 3.1 g/dL (3.5-5.2); Alkaline Phosphatase 82 IU/L (35-105); Aspartate Amino Transferase 17 U/L (0-32); Blood Urea Nitrogen 37 mg/dL (8-23); C Reactive Protein 18.1 mg/L (0.0-4.9); Calcium 9.1 mg/dL (8.5-10.5); Carbon Dioxide 18 mmol/L (22-29); Chloride 103 mmol/L (98-107); Globulin 2.8 g/dL (1.3-4.6); Glomerular Filtration Rate 56.6 mL/min (90-130); Glucose 223 mg/dL (65-115); Magnesium 1.6 mg/dL (1.7-2.3); Osmolality Calculated 294 mOsm/kg (285-295); Sodium 134 mmol/L (136-145); Total Bilirubin 0.2 mg/dL (0.15-1.2); Total Protein 5.9 g/dL (6.6-8.7)
[2020-07-25 05:42] LABS: Lactate (Lactic Acid level) 0.9 mmol/L (0.5-2.2)
[2020-07-25 05:59] LABS: D Dimer 1.39 ug/mIFEU (0-0.59)
[2020-07-25 06:03] LABS: Slide Review Slide Review Perform
[2020-07-25 06:17] LABS: NT Pro B Type Natriuretic Pept 583 pg/mL (0-125); Procalcitonin 0.15 ng/mL (0-0.5)
--- NOTE | 2020-07-25 06:22 | PC.RESP ---
Pt refused her QAM EKG. Pt has also been refusing her Q4 treatments as well. Will pass this along in report. Pt's chart reflects sinus rhythm for the past 2 QAM EKG's.
[2020-07-25 06:28] LABS: Creatine Phosphokinase 36 U/L (26-192)
[2020-07-25] MEDS: atorvastatin 40 mg Tablet 80 MG PO (08:20)
[2020-07-25] MEDS: allopurinol 300 mg Tablet PO (08:21)
[2020-07-25] MEDS: zinc gluconate 50 mg Tablet PO (08:21)
[2020-07-25] MEDS: clopidogrel 75 mg Tablet PO (08:21)
[2020-07-25] MEDS: pantoprazole DR 40 mg Tablet PO (08:21)
[2020-07-25] MEDS: ascorbic acid 500 mg Tablet PO (08:21)
[2020-07-25] MEDS: lisinopril 10 mg Tablet PO (08:21)
[2020-07-25] MEDS: metoprolol tartrate 25 mg Tablet 37.5 MG PO (08:21)
[2020-07-25 09:26] LABS: Coronavirus Lab Test PTC Positive
[2020-07-25] MEDS: apixaban 5 mg Tablet PO (10:22)
[2020-07-25] MEDS: levETIRAcetam 500 mg Tablet PO (10:24)
[2020-07-25 11:00] LABS: Glucose Point of Care 307 mg/dL (70-110)
[2020-07-25] MEDS: haloperidol inj 5 mg/mL INJ 1 mL IM (14:11)
--- NOTE | 2020-07-25 14:19 | PC.NURSE ---
Upon rounding patient states she wants to go home. Tried explaining to patient that the doctor reccomends the patient stay in the hospital to finish her treatment. services host trying to obtain a guardian and placement for the patient due to unsafe living conditions and the patient being not safe to care for herself. When asked orientation questions the patient could not answer appropriately. Patient becoming verbally abusive toward staff at this time. Yelling and stating she wants to go home, and throwing things in her room. Patient came out of her room and was ambulating in the [place] looking for the way out. When approached the patient to tell her that she could not leave just yet and could not ambulate in the [place] due to her being contagious, she became increasingly aggitated. A code 10 was called overhead due to the patient advancing towards staff and throwing her food and drinks. This nurse administered a one time dose of Halidol per physicians orders with security and four other staff members present. Patient resting in bed watching tV at this time. A 96 hour hold was placed and a one-on-one sitter was ordered for the patient safety.
--- NOTE | 2020-07-25 14:35 | PC.OT ---
OT note: On way to eval pt but code 10 called. Will hold at this time.
--- NOTE | 2020-07-25 16:38 | PM.PN ---
Subjective Subjective: Interval history: increased agitation today, insists on leaving [facility], however on asking specific questions, she bustamante snot know her address, where she will go or how she will get there. She is appearing sussy today, is able to get out of bed freely and has been walking out of the room on multiple occassions as if to walk out. 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 I have spoken to her PCP to establish her baseline, it appears she has expressive aphasia and often her speech is a word salad. Last week she had visited her PCP's office on 07/19, had driven herself and there was significant concern that patient is unsafe to drive and poses a danger to self and others if continues to drive, for this reason a cab was arranged to take her back home. She was unable to use her left arm and was unable to answer basic questions. She lives alone since her parents who are her primary givers moved to [place] after hospitalization recently. Her mother is on hospice and father has advanced dementia. She has no other support system reportedly. [facility] was also contacted from Dr. Brambila's office and she was seen by Amisha Lopez per review of social research assistant report. We attempted to contact [facility] to get come more collateral information regarding reports of patient being hotlined and to ascertain if her home living conditions are indeed safe for her, however we have been told they are are not allowed to give out details of the assessment to us. We are attempting to contact Yelena daniel today as there have been reports that her living conditions are not optimal with hoarding, multiple pets (13 cats) with poor hygiene, scattered pet feces within the home and otherwise dilapidated home conditions-will need to verify the same. I am uncertain how she manages her meals or if she is safe to operate a stove at home. - In the interim, while patient is more alert today, she remains confused with no clear plan of how to get home despite her insistence. When i ask her this, she states call my people who will pick her up, when asked to name said people, she utters unintelligble words. Cannot state her address. States she will park her car in the bedroom and sleep there , dad messed up everything , dad will assemble the bed in 1903 . This morning she refused to eat food stating she does not want salt. She does not comply with instructions to remain in her room, does not understand that she has a communicable disease which requires her to remain in isolation. I am concerned that she is safety risk as she does not seem to be following instrcutions and unable to communicate her plans. If she leaves the hospital now, she has no means of getting home and cannot tell me where she lives, she is likely to be out on the street with no other caregivers or social support and unlikely to be able to manage her affairs at home. She likely has underlying vascular dementia from her previous strokes and also documented aphasia which limits her communication ability to state her needs. This is worsened currently due to acute delirium additionally from Covid 19. As such, out of concern for her safety, we will place a 96 hr hold currently. Will additionally obtain psychiatry assessment to judege capacity. - delirium likely Secondary to COVID-19 pneumonia -Has a history of CVA, embolic strokes, seizures, likely may have developed vascular dementia additionally -Has 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 -LP does not show any significant signs of bacterial or viral meningitis -Continue on broad-spectrum antibiotics Rocephin -CXR stable, on room air today -Haldol as needed for anxiety, delirium 1:1 sitter , 96 hr hold Status: Acute (2) Pneumonia due to COVID-19 virus: -Remdesivir, refused iv administration today -Decadron -Vitamin C, zinc -Advair albuterol -EKG shows junctional bradycardia, interventricular conduction delay -QTc 478 ms Status: Acute (3) Metabolic encephalopathy: Secondary to COVID-19, history of temporal lobe encephalomalacia Status: Acute (4) Recurrent falls: PT OT Status: Acute (5) Essential hypertension: Continue home blood pressure medications Status: Acute (6) Diabetes mellitus with neuropathy: Blood sugar betetr controlled after addition of 50 units of Lantus Status: Acute Qualifiers: Diabetes mellitus type: type 2 Diabetes mellitus 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 insulin use: with 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 use Qualified Code(s): E11.40 - Type 2 diabetes mellitus with diabetic neuropathy, unspecified; Z79.4 - laborer marine terminal (current) use of insulin (7) Mixed hyperlipidemia: Continue home medication Status: Acute (8) Poor social situation: -Both parents were patient's primary caregiver -Especially after her strokes a year ago and recurrent strokes, she has had decline in her cognitive functioning, physical deconditioning, will need alf placement -There is been many concerns for her poor social situation as outpatient, has had ER visits for this -Her mother is on hospice, currently at [facility], with COVID-19 -Father has severe dementia, with COVID-19 embrocated -I think the best plan for her is [facility] where her family is admitted Status: Acute (9) Multinodular thyroid: Will require outpatient follow-up Status: Acute (10) Acute embolic stroke: On Eliquis, statin, aspirin Status: Acute (11) Right humeral fracture: Should be in a sling She has not follow-up with Dr. Wood, will repeat x-ray Status: Acute (12) DELORIS (acute kidney injury): Continue IV fluids Status: Acute (13) Hyperkalemia: at 6.7 today, improved after several units of insulin Status: Acute (14) Hyponatremia: Likely pseudohyponatremia, will get IV fluids, correct hyperglycemia Status: Acute (15) Bilateral pneumonia: Status: Acute (16) Hypomagnesemia: will replace Status: Acute Attestations Medical Necessity Statement*: Unsafe to leave the hospital currently due to persisting confusion, delirium, likely vascular dementia, placed 96 hr hold Coding Level of Care Code Acute Log Chipper for [facility] Fwd Diagnoses Acute delirium R41.0 Pneumonia due to COVID-19 virus U07.1; J12.89 Metabolic encephalopathy G93.41 Recurrent falls R29.6 Essential hypertension I10 Diabetes mellitus with neuropathy E11.40; Z79.4 Diabetes mellitus type: type 2 Diabetes mellitus snf insulin use: with snf use Mixed hyperlipidemia E78.2 Poor social situation Z65.9 Multinodular thyroid E04.2 Acute embolic stroke I63.9 Right humeral fracture S42.301A DELORIS (acute kidney injury) N17.9 Hyperkalemia E87.5 Hyponatremia E87.1 Bilateral pneumonia J18.9 Hypomagnesemia E83.42
[2020-07-25 23:36] LABS: Glucose Point of Care 90 mg/dL (70-110)
[2020-07-26 04:00] VITALS: BP 145/78; PULSE 72; RESP 20; TEMP 36.4; O2SAT 96
--- NOTE | 2020-07-26 06:20 | PC.NURSE ---
Refusing care Patient has refused medications, morning accu check, and has refused to eat or drink anything. Patient keeps stating I'm done and shaking her head. She slept much throughout the night and was calm for most of the night.
[2020-07-26 06:31] LABS: Glucose Point of Care 203 mg/dL (70-110)
--- NOTE | 2020-07-26 09:00 | PC.NURSE ---
Pt became upset because of phone call. Pt threw phone across room.
--- NOTE | 2020-07-26 09:17 | DCPLANNER ---
IMM information was done over the phone due to pt quarantined. Pt did not seem coherent and did not respond.
[2020-07-26] MEDS: allopurinol 300 mg Tablet PO (09:45)
[2020-07-26] MEDS: clopidogrel 75 mg Tablet PO (09:45)
[2020-07-26] MEDS: atorvastatin 40 mg Tablet 80 MG PO (09:45)
[2020-07-26] MEDS: lisinopril 10 mg Tablet PO (09:46)
[2020-07-26] MEDS: metoprolol tartrate 25 mg Tablet 37.5 MG PO (09:46)
--- NOTE | 2020-07-26 10:30 | PC.NURSE ---
Pt refuses all meds. Educated pt on importance and reviewed every medication. Pt stated she would accept home meds only but refused Eliquis because it is new and I hadn't tried it yet. Pt also refused Protonix but was unable to understand sentences pt was attempting to form. Pt frequently experiences word salad type behavior. Informed pt of risks of not taking medications.
[2020-07-26 11:14] VITALS: BP 134/81; PULSE 68; RESP 18; TEMP 36.6; O2SAT 96
[2020-07-26 11:26] LABS: Glucose Point of Care 317 mg/dL (70-110)
--- NOTE | 2020-07-26 13:27 | PC.OT ---
OT EVALUATION ATTEMPTED. HYDROMETEOROLOGICAL TECHNICIAN RAJ ENTERED ROOM FIRST. PER RAJ, PATIENT DECLINES OT EVALUATION AT THIS TIME. WILL ATTEMPT AGAIN TOMORROW.
--- NOTE | 2020-07-26 14:00 | PC.NURSE ---
Pt continues to refuse insulin. Becomes extremely upset. Demanding to go home to feed her cats. Pt proceeds to blame her father for her current situation. Pt curses loudly often.
--- NOTE | 2020-07-26 16:00 | PC.NURSE ---
Pt's blood glucose at lunch was 317. Informed pt that insulin must be administered. Educated pt of risk factors if she continues to refuse. Pt allowed me to administer insulin. Called Marlon in pharmacy to verify ordered dose of 50 units of Novolog TID and that pt had received ordered dose previously. Pharmacist clarified. Reviewed pt's insulin dose administration and blood glucose reaction to insulin received. Dr Haque called and informed that pt will accept insulin dose at this time. Clarified dose physician wants pt to receive is Novolog [address] Haque confirmed and ordered dose to be administered now. Reassessed pt's blood glucose prior to administration. Blood glucose 364.
--- NOTE | 2020-07-26 16:23 | PM.PN ---
Subjective Subjective: Interval history: No acute changes today. Patient remains clinically stable overall, however still refusing her iv medications. Medications: Reviewed: Yes Vitals/I&O/Wt Last Vital Signs Temp 97.8 F 07/26/20 11:14 Pulse 68 07/26/20 11:14 Resp 18 07/26/20 11:14 BP 134/81 07/26/20 11:14 Pulse Ox 96 07/26/20 11:14 07/26/20 07/26/20 07/26/20 06:59 14:59 22:59 Intake Total 600 / 600 Balance 600 / 600 Physical Exam Narrative: EXAM NARRATIVE: did not permit exam Data : 07/25/20 05:00 07/25/20 05:00 Micro: Microbiology 07/22/20 19:41 Gram Stain - Final Cerebrospinal Fluid CSF Culture - Final 07/24/20 13:04 Urine Culture - Final Urine,Voided Bacterial Antigens - Final A&P Assessment and plan (1) Acute delirium: -Clinically unchanged overall, speech continues to have word salad, though speaks few short sentences Last week she had visited her PCP's office on 07/19, had driven herself and there was significant concern that patient is unsafe to drive and poses a danger to self and others if continues to drive, for this reason a cab was arranged to take her back home. She was unable to use her left arm and was unable to answer basic questions. She lives alone since her parents who are her primary givers moved to [place] after hospitalization recently. Her mother is on hospice and father has advanced dementia. She has no other support system reportedly. [facility] was also contacted from Dr. Brambila's office and she was seen by Amisha Lopez per review of social research assistant report. We attempted to contact [facility] to get come more collateral information regarding reports of patient being hotlined and to ascertain if her home living conditions are indeed safe for her, however we have been told they are are not allowed to give out details of the assessment to us. We are attempting to contact Yelena daniel today as there have been reports that her living conditions are not optimal with hoarding, multiple pets (13 cats) with poor hygiene, scattered pet feces within the home and otherwise dilapidated home conditions-will need to verify the same. I am uncertain how she manages her meals or if she is safe to operate a stove at home. - In the interim, while patient is more alert today, she remains confused with no clear plan of how to get home despite her insistence. When i ask her this, she states call my people who will pick her up, when asked to name said people, she utters unintelligble words. Cannot state her address. States she will park her car in the bedroom and sleep there , dad messed up everything , dad will assemble the bed in 190 . This morning she refused to eat food stating she does not want salt. She does not comply with instructions to remain in her room, does not understand that she has a communicable disease which requires her to remain in isolation. I am concerned that she is safety risk as she does not seem to be following instrcutions and unable to communicate her plans. If she leaves the hospital now, she has no means of getting home and cannot tell me where she lives, she is likely to be out on the street with no other caregivers or social support and unlikely to be able to manage her affairs at home. She likely has underlying vascular dementia from her previous strokes and also documented aphasia which limits her communication ability to state her needs. This is worsened currently due to acute delirium additionally from Covid 19. As such, out of concern for her safety, we will place a 96 hr hold currently. Will additionally obtain psychiatry assessment to judege capacity. - delirium likely Secondary to COVID-19 pneumonia -Has a history of CVA, embolic strokes, seizures, likely may have developed vascular dementia additionally -Has 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 -LP does not show any significant signs of bacterial or viral meningitis -Continue on broad-spectrum antibiotics Rocephin -CXR stable, on room air today -Haldol as needed for anxiety, delirium 1:1 sitter , 96 hr hold Status: Acute (2) Pneumonia due to COVID-19 virus: -Remdesivir, refused iv administration today -Decadron -Vitamin C, zinc -Advair albuterol -EKG shows junctional bradycardia, interventricular conduction delay -QTc 478 ms Status: Acute (3) Metabolic encephalopathy: Secondary to COVID-19, history of temporal lobe encephalomalacia Status: Acute (4) Recurrent falls: PT OT Status: Acute (5) Essential hypertension: Continue home blood pressure medications Status: Acute (6) Diabetes mellitus with neuropathy: Blood sugar betetr controlled after addition of 50 units of Lantus Status: Acute Qualifiers: Diabetes mellitus type: type 2 Diabetes mellitus chcf insulin use: with training project manager use Qualified Code(s): E11.40 - Type 2 diabetes mellitus with diabetic neuropathy, unspecified; Z79.4 - [facility] (current) use of insulin (7) Mixed hyperlipidemia: Continue home medication Status: Acute (8) Poor social situation: -Both parents were patient's primary caregiver -Especially after her strokes a year ago and recurrent strokes, she has had decline in her cognitive functioning, physical deconditioning, will need long term placement -There is been many concerns for her poor social situation as outpatient, has had ER visits for this -Her mother is on hospice, currently at [facility], with COVID-19 -Father has severe dementia, with COVID-19 embrocated -I think the best plan for her is [facility] where her family is admitted Status: Acute (9) Multinodular thyroid: Will require outpatient follow-up Status: Acute (10) Acute embolic stroke: On Eliquis, statin, aspirin Status: Acute (11) Right humeral fracture: Should be in a sling She has not follow-up with Dr. Wood, will repeat x-ray Status: Acute (12) DELORIS (acute kidney injury): Continue IV fluids Status: Acute (13) Hyperkalemia: at 6.7 today, improved after several units of insulin Status: Acute (14) Hyponatremia: Likely pseudohyponatremia, will get IV fluids, correct hyperglycemia Status: Acute (15) Bilateral pneumonia: Status: Acute (16) Hypomagnesemia: will replace Status: Acute Attestations Medical Necessity Statement*: Patient currently clinically stable to improving, however will need placement due to above mentioned issues. Awaiting psych assessment Coding Level of Care Code Acute Coding And Reimbursement Specialist for [facility] Diagnoses Acute delirium R41.0 Pneumonia due to COVID-19 virus U07.1; J12.89 Metabolic encephalopathy G93.41 Recurrent falls R29.6 Essential hypertension I10 Diabetes mellitus with neuropathy E11.40; Z79.4 Diabetes mellitus type: type 2 Diabetes mellitus chcf insulin use: with chcf use Mixed hyperlipidemia E78.2 Poor social situation Z65.9 Multinodular thyroid E04.2 Acute embolic stroke I63.9 Right humeral fracture S42.301A DELORIS (acute kidney injury) N17.9 Hyperkalemia E87.5 Hyponatremia E87.1 Bilateral pneumonia J18.9 Hypomagnesemia E83.42
[2020-07-26 16:45] LABS: Glucose Point of Care 364 mg/dL (70-110)
[2020-07-26 17:25] LABS: Glucose Point of Care 378 mg/dL (70-110)
[2020-07-26 19:12] VITALS: BP 117/74; PULSE 80; RESP 22; TEMP 37.2; O2SAT 96
[2020-07-26] MEDS: ascorbic acid 500 mg Tablet PO (19:24)
--- NOTE | 2020-07-26 19:55 | PM.PSYCN ---
Providers/Reason for Consult Consulting Physican/Specialty*: Paco Persaud MD. Psychiatry. Reason for Consult*: Evaluation for capacity for medical decision-making. Attending Physician: Rain Haque MD Primary Care Provider: Neftaly Brambila MD Psych Consult HPI History of Present Illness Hilda Wallace is a 60 year old female who presented to the emergency department with the following report: Chief Complaint: COVID symptoms Stated Complaint: WEAKNESS; COVID EXPOSURE; NAUSEA Time Seen by Provider: 07/22/20 14:46 Source: patient and EMS Mode of arrival: EMS Limitations: altered mental status Triage information: Has fever, cough or shortness of breath. Exposure to COVID + person last 14 days History of Present Illness: HPI Narrative: 60-year-old female who was brought in by EMS. Her history is difficult to obtain as the patient is confused. It is hard to tell exactly what is going on but according to EMS her house is very unclean, there is cat feces scattered all over the house, the house is dirty and not arranged properly. The patient had a blood glucose of 485 per EMS. According to them she was alert and oriented with the EMS crew and had complained of feeling unwell for about 2 days. She felt she had a fever today. Going through her primary care providers note she was seen there 3 days ago and his note is pretty concerning that the patient was in a poor mental state and was unlikely to be mentally capable of making her decisions. She was apparently using words in an inappropriate manner did not seem to understand any of the questions that were asked and apparently had some dysphasia. She is unable to answer most questions and also says is that she is sick. She had a temperature of more than 102 ?F on arrival to the emergency department COVID Results: SARS-CoV-2 Antigen (Rapid) Positive (Negative) H 07/22/20 16:00 07/22/20 Nasal/Oral Coronavirus 2019 PCR Pending 07/22/20 16:00 07/22/20. She was admitted to the [facility] Covid unit for definitive treatment of those issues. They have been working with her to manage her Covid symptoms and 4. At times appeared to have some delirium. This delirium was superimposed on a expressive aphasia that she has is a previous medical condition. Circumstances in her home have changed and great concerns were raised about her returning home and having the ability to independently care for herself based on all the evidence that the primary team has. Attempts to work with her exploring the risks, benefits and alternatives of going to a facility where she will have assistance at the very least initially if not ongoing met with fluid resistance and no consideration. The primary team's determination is that she lacks capacity and a psychiatric consult was requested to explore this question. I met with Hilda to try to determine her capacity in regards to her medical care. Attempts to gain an understanding of this were fairly difficult given her aphasia and her clear insistence that because she says this is how she wants things to be and because she expresses it firmly then it should be that way. After extensive conversation in a more informal process I have very formally explained to her that I was trying to assess her capacity for this decision and explained to her the four tenants of capacity being that she needed to show me clearly she 1, understood the situation, 2, appreciated the consequences of her decision, 3, demonstrated reasoning in her thinking process and 4, was able to communicate her wishes. Giving her some latitude for communication concerns she showed very limited understanding of her situation and the nuances and challenges that it could bring. She was clearly capable of communicating what her wishes consideration are. Gathering an accurate history of her psychiatric history, substance abuse history, family history etc. were very limited and given that the specific task in the consult was capacity determination I would request that we refer to her predocumentation for this information. What was noteworthy was that she has been living with her parents very recently but they are both now and long term/assisted home care and will not be available to assist her as they have in the past. She reportedly would be in a home with without clear assistance and with a lot of responsibility outside of her own self-care including the care of multiple pets which might even be too many pets for the situation. The welfare of those Tests appear to be for most in her mind and even possibly I had of her own wellbeing. Meds Current Medications: Current Medications Generic Name Dose Route Start Last Admin Trade Name Freq PRN Reason Stop Dose Admin Allopurinol 300 mg 07/23/20 09:00 07/26/20 09:45 Allopurinol 300 Mg Tablet PO 300 mg DAILY JAMAR Administration Apixaban 5 mg 07/22/20 22:00 07/26/20 21:20 Apixaban 5 Mg Ta blet PO Not Given Q12H JAMAR Ascorbic Acid 500 mg 07/23/20 09:00 07/26/20 19:24 Ascorbic Acid 50 0 Mg Tablet PO 500 mg BID [facility] Administration Atorvastatin Calci um 80 mg 07/23/20 09:00 07/26/20 09:45 Atorvastatin 40 Mg Tablet PO 80 mg DAILY JAMAR Administration Clopidogrel Bisulf ate 75 mg 07/23/20 09:00 07/26/20 09:45 Clopidogrel 75 M g Tablet PO 75 mg DAILY [facility] Administration Dexamethasone 6 mg 07/22/20 21:48 07/26/20 20:51 Dexamethasone 4 Mg/Ml Inj IVP Not Given Q24H [facility] Hydrochlorothiazid e 25 mg 07/23/20 06:00 07/27/20 05:32 Hydrochlorothiaz connie 25 Mg Tablet PO Not Given QAM [facility] Ceftriaxone Sodium 1,000 mg/ 50 mls @ 100 mls/ hr 07/22/20 22:30 07/26/20 21:30 Sodium Chloride IV Not Given Q24H [facility] Protocol Insulin Aspart 50 unit 07/22/20 22:45 07/26/20 16:09 Insulin Aspart 1 00 Unit/1 Ml SUBCUT 50 unit TIDWM [facility] Administration Insulin Glargine 50 unit 07/24/20 21:00 07/26/20 20:50 Insulin Glargine 100 Units/1 Ml SUBCUT Not Given BEDTIME [facility] Levetiracetam 500 mg 07/22/20 22:35 07/26/20 21:30 Levetiracetam 50 0 Mg Tablet PO Not Given Q12H [facility] Lisinopril 10 mg 07/23/20 09:00 07/26/20 09:46 Lisinopril 10 Mg Tablet PO 10 mg DAILY [facility] Administration Metoprolol Tartrat e 37.5 mg 07/23/20 09:00 07/26/20 19:50 Metoprolol Tartr ate 25 Mg Tablet PO Not Given BID [facility] Ondansetron HCl 4 mg 07/22/20 21:48 07/23/20 01:09 Ondansetron 2 Mg /Ml Sdv 2 Ml IVP 4 mg Q8H PRN Administration vomiting, or N/V if npo Pantoprazole Sodiu m 40 mg 07/23/20 09:00 07/26/20 10:[address] 40 Mg Tablet PO Not Given DAILY [facility] Fluticasone/Salmet eben 1 puff 07/22/20 21:48 07/26/20 08:26 Fluticasone-Salm eterol 100-50 Disk us INHALATION Not Given BID.RESPIRATORY S CH Spironolactone 50 mg 07/23/20 06:00 07/27/20 05:32 Spironolactone 2 5 Mg Tablet PO Not Given QAM JAMAR Tizanidine HCl 6 mg 07/22/20 22:42 07/23/20 01:09 Tizanidine 4 Mg Tablet PO 6 mg BEDTIME PRN Administration muscle spasticity Zinc Gluconate 50 mg 07/23/20 09:00 07/26/20 10:11 Zinc Gluconate 5 0 Mg Tablet PO Not Given DAILY JAMAR PFSH NPU PFSH: Medical History Acute hypersomnolence disorder Diabetes mellitus with neuropathy History of CVA (cerebrovascular accident) Mixed hyperlipidemia LEROY on CPAP Surgical History History of bursectomy History of cholecystectomy History of colonoscopy History of hysterectomy for indication other than malignancy History of nasal sinusotomy History of repair of rotator cuff History of tonsillectomy Hx of adenoidectomy Status post anal fissurectomy Family History Mother CAD (coronary artery disease) Other Asthma Cancer Diabetes Heart disease Hypertension Stroke Social History Smoking and tobacco status: former smoker Alcohol intake: current Alcohol intake frequency: few times a month History of recent travel: No Mental Status Exam MSE Comments: This is an obese white female with hospital gown on with limited grooming and eye contact. No abnormal movements except for occasional psychomotor agitation. Mostly cooperative with exam in mild to moderate distress at times. Speech was normal rate and occasionally increased volume. Her words were at times near word salad but other x1 could draw from her clear aphasia the essence of what she was trying to communicate but her delivery was very staccatic and that her delivery was choppy as she attempted to find words and would have paraphasias where she would say collections of words attempting to get at the meaning of one word. Mood described as fine affect irritable. Thought process seeming disorganized but having some organization if you really followed her lines of thinking. Thought content: Denied suicidal or homicidal ideation, there were no delusions reported or noted, she denied any auditory or visual hallucinations. Attention and concentration were limited and memory was intermittently reliable but none were formally tested. She is alert and oriented x3. Insight and judgment are limited, impulse control limited. Vitals/I&O/Wt Last Vital Signs Temp 99.0 F 07/26/20 19:12 Pulse 80 07/26/20 19:12 Resp 22 H 07/26/20 19:12 BP 117/74 07/26/20 19:12 Pulse Ox 96 07/26/20 19:12 07/26/20 14:59 Intake Total 600 / 600 Balance 600 / 600 Data NPU Micro: Micro: Microbiology 07/22/20 19:41 Gram Stain - Final Cerebrospinal Flu id CSF Culture - Lynnette l 07/24/20 13:04 Urine Culture - Fi nal Urine,Voided Bacterial Antigens - Final Microbiology 07/22/20 19:41 Cerebrospinal Fluid Gram Stain - Final 07/22/20 19:41 Cerebrospinal Fluid CSF Culture - Final 07/24/20 13:04 Urine,Voided Urine Culture - Final 07/24/20 13:04 Urine,Voided Bacterial Antigens - Final A&P Assessment and plan (1) Acute delirium: Status: Acute (2) Metabolic encephalopathy: Status: Acute (3) Pneumonia due to COVID-19 virus: Status: Acute (4) Expressive aphasia: Status: Acute (5) 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 1. Continue current medication. 2. In regards to capacity, she shows limited understanding of the situation and is able to communicate her wishes but lacks appreciation of the consequences of the decisions and is unable to show any rational reasoning surrounding arriving at her decision, meaning that at best she has 2 out of the 4 tenants of capacity shown and most likely only the ability to communicate her wishes. Given that, I agree with the primary team that she lacks clear capacity to assess the risks, benefits and alternatives of the decisions in front of her in a way that would allow her to understand and come to appropriate/rational conclusions related to the interventions and recommendations being presented to her. 3. Please let me know in any way I can assist in the process of guardianship or getting her to an appropriate facility. I have answered the question I will be available for reconsult in the event some other specific questions about her care arises. Attestations NPU Medical Necessity Statement*: N/A. Please see the primary team note for medical necessity, but be aware I do agree that she is lacking capacity to make medical decisions. 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
[2020-07-27] VITALS (7 sets, daily range): BP systolic 103–138; BP diastolic 62–82; PULSE 70–99; RESP 16–20; TEMP 36.4–37.3; O2SAT 96–98
--- NOTE | 2020-07-27 02:39 | PC.NURSE ---
Patient took her own IV out during dayshift and has admittedly refusing to let me put another one in. Pt also refused all night medications including insuline. Dr. Armijo is aware of the situation and stated to try again in the morning. This RN is letting the patient rest at this time per doctors orders. Will try again in the AM. No other needs voiced at this time. 1:[address] at this time, will continue to monitor.
[2020-07-27 03:59] LABS: Basophils % 0.3 %; Eosinophils # 0.2 10^3/uL (0.0-0.8); Eosinophils % 1.7 %; Hemoglobin 11.9 g/dL (11.5-15.3); Lymphocytes # 2.8 10^3/uL (0.8-4.8); Lymphocytes % 29.1 %; Mean Corpuscular HGB Conc 32.2 g/dL (30.0-36.0); Mean Corpuscular Hemoglobin 27.7 pg (28.0-34.0); Mean Platelet Volume 9.5 fL (7.4-10.4); Monocytes % 10.2 %; Neutrophils # 5.58 10^3/uL (1.8-7.7); Neutrophils % 58.3 %; Nucleated Red Blood Cells % 0 %; Platelet Count 435 10^3/cmm (130-400); Red Cell Distribution Width 13.6 % (12.1-15.1); White Blood Count 9.6 10^3/uL (4.0-10.0)
[2020-07-27 04:24] LABS: Alanine Aminotransferase 23 U/L (0-33); Albumin Level 3.1 g/dL (3.5-5.2); Alkaline Phosphatase 104 IU/L (35-105); Anion Gap 16.3 (5-19); Aspartate Amino Transferase 22 U/L (0-32); Blood Urea Nitrogen 30 mg/dL (8-23); Calcium 9.1 mg/dL (8.5-10.5); Carbon Dioxide 20 mmol/L (22-29); Chloride 102 mmol/L (98-107); Glomerular Filtration Rate 63.9 mL/min (90-130); Glucose 290 mg/dL (65-115); Osmolality Calculated 295 mOsm/kg (285-295); Potassium 4.3 mmol/L (3.5-5.1); Sodium 134 mmol/L (136-145); Total Bilirubin 0.4 mg/dL (0.15-1.2); Total Protein 6.1 g/dL (6.6-8.7)
[2020-07-27 08:32] LABS: Glucose Point of Care 281 mg/dL (70-110)
[2020-07-27] MEDS: atorvastatin 40 mg Tablet 80 MG PO (09:16)
[2020-07-27] MEDS: clopidogrel 75 mg Tablet PO (09:16)
[2020-07-27] MEDS: metoprolol tartrate 25 mg Tablet 37.5 MG PO ×2 (09:16→18:21)
[2020-07-27] MEDS: allopurinol 300 mg Tablet PO (09:16)
[2020-07-27] MEDS: zinc gluconate 50 mg Tablet PO (09:16)
[2020-07-27] MEDS: lisinopril 10 mg Tablet PO (09:16)
[2020-07-27] MEDS: ascorbic acid 500 mg Tablet PO ×2 (09:41→18:21)
[2020-07-27 11:50] LABS: Glucose Point of Care 370 mg/dL (70-110)
--- NOTE | 2020-07-27 12:18 | PC.OT ---
OT EVALUATION HELD TODAY PATIENT REPORTED TO PT, I AM NOT DOING ANY THERAPY. I AM GOING HOME. I'M NOT GOING TO DO THERAPY WHILE HERE. WILL ATTEMPT AGAIN TOMORROW.
--- NOTE | 2020-07-27 13:32 | PC.NURSE ---
Dr. Haque informed at this time pt is upset and is wanting to be discharged. Pt is adamantly stating she must get home to pay her bills, turn her heat on, and feed her cats. Pt pulled out IV yesterday evening and last night. Pt is refusing for staff to place another IV. responded and stated pt is on 96 hour old and is aware of pt's lack of IV.
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
[2020-07-27 16:54] LABS: Glucose Point of Care 212 mg/dL (70-110)
[2020-07-27 17:28] LABS: HSV 1 DNA NOT DETECTED; HSV 2 DNA NOT DETECTED; HSV Source CEREBROSPINAL FLUID
[2020-07-27 20:22] LABS: Glucose Point of Care 237 mg/dL (70-110)
[2020-07-27] MEDS: insulin glargine 100 units/1 mL 50 UNIT SUBCUT (21:31)
[2020-07-27] MEDS: cefTRIAXone 1,000 MG in sodium chloride 0.9% (plus) 50 ML 100 MG IV (21:31)
[2020-07-27] MEDS: apixaban 5 mg Tablet PO (21:32)
[2020-07-27] MEDS: levETIRAcetam 500 mg Tablet PO (21:38)
[2020-07-27] MEDS: dexamethasone 4 mg/mL INJ 6 MG IVP (22:18)
[2020-07-27 23:57] LABS: VDRL on CSF NON-REACTIVE
[2020-07-28] VITALS (7 sets, daily range): BP systolic 100–137; BP diastolic 65–84; PULSE 64–105; RESP 17–18; TEMP 36.5–36.8; O2SAT 93–99
--- NOTE | 2020-07-28 00:16 | PC.NURSE ---
pt refused midnight vitals. on 07/28/20.
[2020-07-28] MEDS: hydroCHLOROthiazide 25 mg Tablet PO (06:33)
[2020-07-28] MEDS: spironolactone 25 mg Tablet 50 MG PO (06:33)
--- NOTE | 2020-07-28 07:11 | PC.OT ---
OT NOTE: PATIENT CONTINUES TO REFUSE CARE AND ADAMANTLY REFUSES PARTICIPATION IN THERAPY. WILL AWAIT NEW ORDERS IF PATIENT BECOMES AGREEABLE TO PARTICIPATE.
[2020-07-28 08:02] LABS: Glucose Point of Care 317 mg/dL (70-110)
[2020-07-28] MEDS: atorvastatin 40 mg Tablet 80 MG PO (08:39)
[2020-07-28] MEDS: clopidogrel 75 mg Tablet PO (08:40)
[2020-07-28] MEDS: pantoprazole DR 40 mg Tablet PO (08:40)
[2020-07-28] MEDS: allopurinol 300 mg Tablet PO (08:40)
[2020-07-28] MEDS: metoprolol tartrate 25 mg Tablet 37.5 MG PO ×2 (08:40→17:15)
[2020-07-28] MEDS: ascorbic acid 500 mg Tablet PO ×2 (08:40→17:16)
[2020-07-28] MEDS: lisinopril 10 mg Tablet PO (08:40)
[2020-07-28] MEDS: zinc gluconate 50 mg Tablet PO (08:40)
[2020-07-28] MEDS: levETIRAcetam 500 mg Tablet PO ×2 (11:35→21:57)
[2020-07-28] MEDS: LORazepam 1 mg Tablet PO ×2 (11:36→17:51)
[2020-07-28] MEDS: apixaban 5 mg Tablet PO ×2 (11:36→21:07)
[2020-07-28 11:49] LABS: Glucose Point of Care 439 mg/dL (70-110)
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
--- NOTE | 2020-07-28 16:07 | PC.PT ---
PT note;discharge physical therapy secondary to lack of participation; PT can be resumed when patient wanting to participate with physical therapy
[2020-07-28 16:47] LABS: Glucose Point of Care 238 mg/dL (70-110)
--- NOTE | 2020-07-28 18:44 | PC.NURSE ---
shift summary pt has been requesting to go home, even though nurse has been reassuring her cats are taken care of. pt has taken all medications and been pleasant this shift. two doses of ativan 1 mg po has been given due to increase in anxiety this shift
[2020-07-28 20:26] LABS: Glucose Point of Care 304 mg/dL (70-110)
[2020-07-28] MEDS: insulin glargine 100 units/1 mL 50 UNIT SUBCUT (21:07)
[2020-07-28] MEDS: dexamethasone 4 mg/mL INJ 6 MG IVP (21:07)
[2020-07-29] VITALS (7 sets, daily range): BP systolic 92–149; BP diastolic 59–76; PULSE 58–88; RESP 15–18; TEMP 36.4–36.8; O2SAT 96–99
[2020-07-29] MEDS: spironolactone 25 mg Tablet 50 MG PO (05:57)
[2020-07-29] MEDS: hydroCHLOROthiazide 25 mg Tablet PO (05:57)
[2020-07-29] MEDS: LORazepam 1 mg Tablet PO (05:59)
[2020-07-29 06:46] LABS: Glucose Point of Care 330 mg/dL (70-110)
[2020-07-29] MEDS: zinc gluconate 50 mg Tablet PO (08:06)
[2020-07-29] MEDS: metoprolol tartrate 25 mg Tablet 37.5 MG PO ×2 (08:06→17:29)
[2020-07-29] MEDS: pantoprazole DR 40 mg Tablet PO (08:06)
[2020-07-29] MEDS: clopidogrel 75 mg Tablet PO (08:06)
[2020-07-29] MEDS: ascorbic acid 500 mg Tablet PO ×2 (08:06→17:29)
[2020-07-29] MEDS: predniSONE 20 mg Tablet 40 MG PO (08:06)
[2020-07-29] MEDS: atorvastatin 40 mg Tablet 80 MG PO (08:07)
[2020-07-29] MEDS: lisinopril 10 mg Tablet PO (08:07)
[2020-07-29] MEDS: allopurinol 300 mg Tablet PO (08:07)
[2020-07-29] MEDS: levETIRAcetam 500 mg Tablet PO ×2 (09:44→22:14)
[2020-07-29] MEDS: apixaban 5 mg Tablet PO ×2 (09:44→22:12)
[2020-07-29 10:50] LABS: Glucose Point of Care 314 mg/dL (70-110)
--- NOTE | 2020-07-29 14:02 | PC.NURSE ---
Patient tearful about I want to go home to feed my cats better food than what [place] is giving them. When offered ativan patient refuses and is aggressive, refuses to let this nurse change out her IV, refuses a hospital gown, shower, or hygiene, and refuses to let this nurse assess body without clothes. Will continue to attempt when patient is in a calmer state of mind.
--- NOTE | 2020-07-29 15:30 | PM.PN ---
Subjective Subjective: Interval history: hemodynamically stable, no acute events, remains on RA Medications: Reviewed: Yes Vitals/I&O/Wt Last Vital Signs Temp 98.0 F 07/29/20 12:00 Pulse 74 07/29/20 12:00 Resp 16 07/29/20 12:00 BP 149/74 07/29/20 12:00 Pulse Ox 97 07/29/20 12:00 07/29/20 07/29/20 07/29/20 06:59 14:59 22:59 Intake Total 480 / 480 Output Total 400 / 700 Balance -400 / -100 480 / 480 Physical Exam Narrative: EXAM NARRATIVE: Asleep at time of exam today, not examined for patient comfort Data : 07/27/20 03:15 07/27/20 03:15 Micro: Microbiology 07/23/20 14:00 Blood Culture - Final Blood NO GROWTH AFTER 5 DAYS 07/23/20 14:00 Blood Culture - Final Blood NO GROWTH AFTER 5 DAYS 07/28/20 05:00 Cryptococcal Antigen - Final Blood A&P Assessment and plan (1) Acute delirium: -More coopertaive with care givers today - In reveiwing notes from her PCP office and reports from home care , medicine assessment here with concern for vascular dementia and acute delirium earlier in the course of admission, psychiatry assessment for capacity, she shows limited understanding of the situation and is able to communicate her wishes but lacks appreciation of the consequences of the decisions and is unable to show any rational reasoning surrounding arriving at her decision. Specific instances documented in prior notes. For the above reasons, no family members available to act as DPOA, guardianship is being pursued at this time and placement to SNF being sought. - delirium likely Secondary to COVID-19 pneumonia -Has a history of CVA, embolic strokes, seizures, likely may have developed vascular dementia additionally -Has 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 -LP does not show any significant signs of bacterial or viral meningiti -Haldol as needed for anxiety, delirium -1:1 sitter Status: Acute (2) Pneumonia due to COVID-19 virus: -received remdisivir over 2 days, thereafter refused treatment -Decadron changed to po prednisone 40mg qd today , will taper over the next 10 days and then stop -s/p empiric ceftriaxone course -remains on room air now, titrated off oxygen -remains afebrile -Vitamin C, zinc -Advair albuterol -EKG shows junctional bradycardia, interventricular conduction delay -QTc 478 ms Status: Acute (3) Metabolic encephalopathy: Secondary to COVID-19, history of temporal lobe encephalomalacia Status: Acute (4) Recurrent falls: PT OT Status: Acute (5) Essential hypertension: Continue home blood pressure medications Status: Acute (6) Diabetes mellitus with neuropathy: continue 60 units Lantus and 50U pre meal insulin Status: Acute Qualifiers: Diabetes mellitus type: type 2 Diabetes mellitus mcfp insulin use: with middle or intermediate school principal use Qualified Code(s): E11.40 - Type 2 diabetes mellitus with diabetic neuropathy, unspecified; Z79.4 - extermination supervisor (current) use of insulin (7) Mixed hyperlipidemia: Continue home medication Status: Acute (8) Poor social situation: -Both parents were patient's caregivers -Especially after her strokes a year ago and recurrent strokes, she has had decline in her cognitive functioning, physical deconditioning, will need [facility] placement -There is been many concerns for her poor social situation as outpatient by PCP, has had ER visits for this -Her mother is on hospice, currently at [facility], with COVID-19 -Father has severe dementia, with COVID-19 , unable to be her sales technician home theater Status: Acute (9) Multinodular thyroid: Will require outpatient follow-up Status: Acute (10) Acute embolic stroke: On Eliquis, statin, aspirin Status: Acute (11) Right humeral fracture: Should be in a sling She has not follow-up with Dr. Wood, will repeat x-ray Status: Acute (12) DELORIS (acute kidney injury): Continue IV fluids Status: Acute (13) Hyperkalemia: Status: Acute (14) Hyponatremia: improved Status: Acute (15) Bilateral pneumonia: off oxygen now Status: Acute (16) Hypomagnesemia: resolved Status: Acute Attestations Medical Necessity Statement*: Awaiting appropriate placement Coding Level of Care Code Acute Supermarket Manager for [facility] Fwd Diagnoses Acute delirium R41.0 Pneumonia due to COVID-19 virus U07.1; J12.89 Metabolic encephalopathy G93.41 Recurrent falls R29.6 Essential hypertension I10 Diabetes mellitus with neuropathy E11.40; Z79.4 Diabetes mellitus type: type 2 Diabetes mellitus middle or intermediate school principal insulin use: with middle or intermediate school principal use Mixed hyperlipidemia E78.2 Poor social situation Z65.9 Multinodular thyroid E04.2 Acute embolic stroke I63.9 Right humeral fracture S42.301A DELORIS (acute kidney injury) N17.9 Hyperkalemia E87.5 Hyponatremia E87.1 Bilateral pneumonia J18.9 Hypomagnesemia E83.42
[2020-07-29 16:48] LABS: Glucose Point of Care 145 mg/dL (70-110)
[2020-07-29 20:44] LABS: Glucose Point of Care 188 mg/dL (70-110)
[2020-07-29] MEDS: insulin glargine 100 units/1 mL 60 UNIT SUBCUT (22:13)
[2020-07-30] VITALS (9 sets, daily range): BP systolic 113–137; BP diastolic 60–79; PULSE 54–75; RESP 15–20; TEMP 36.3–36.9; O2SAT 94–99
--- NOTE | 2020-07-30 01:16 | PC.NURSE ---
pt used toilet and flushed before i could get the output
[2020-07-30] MEDS: spironolactone 25 mg Tablet 50 MG PO (05:28)
[2020-07-30] MEDS: hydroCHLOROthiazide 25 mg Tablet PO (05:30)
[2020-07-30 07:01] LABS: Glucose Point of Care 174 mg/dL (70-110)
--- NOTE | 2020-07-30 07:31 | PC.NURSE ---
Per Dr. Haque novolog morning dose changed to 30units SQ, see MAR for further details.
[2020-07-30] MEDS: clopidogrel 75 mg Tablet PO (08:29)
[2020-07-30] MEDS: allopurinol 300 mg Tablet PO (08:29)
[2020-07-30] MEDS: atorvastatin 40 mg Tablet 80 MG PO (08:29)
[2020-07-30] MEDS: predniSONE 20 mg Tablet 40 MG PO (08:29)
[2020-07-30] MEDS: zinc gluconate 50 mg Tablet PO (08:29)
[2020-07-30] MEDS: lisinopril 10 mg Tablet PO (08:30)
[2020-07-30] MEDS: pantoprazole DR 40 mg Tablet PO (08:30)
[2020-07-30] MEDS: metoprolol tartrate 25 mg Tablet 37.5 MG PO ×2 (08:30→17:31)
[2020-07-30] MEDS: ascorbic acid 500 mg Tablet PO ×2 (08:30→17:31)
[2020-07-30] MEDS: levETIRAcetam 500 mg Tablet PO (09:14)
[2020-07-30] MEDS: apixaban 5 mg Tablet PO (09:14)
[2020-07-30 10:54] LABS: Glucose Point of Care 210 mg/dL (70-110)
--- NOTE | 2020-07-30 12:26 | PC.NURSE ---
Dr. Haque made aware that patient refused lunch tray, scheduled insulin dose held, physician reports she will decrease order due to patient not eating lunch or dinner.
--- NOTE | 2020-07-30 14:46 | PC.NURSE ---
Patient calling dust operator and nursing desk asking to go home, attempted to give ativan PO but patient refused.
--- NOTE | 2020-07-30 15:12 | PM.PN ---
Subjective Subjective: Interval history: hemodynamically stable, no acute events, remains on RA Medications: Reviewed: Yes Vitals/I&O/Wt Last Vital Signs Temp 97.6 F 07/30/20 12:00 Pulse 55 L 07/30/20 12:00 Resp 15 07/30/20 12:00 BP 113/60 07/30/20 12:00 Pulse Ox 94 07/30/20 12:00 07/30/20 07/30/20 07/30/20 06:59 14:59 22:59 Intake Total 480 / 480 Balance 480 / 480 Physical Exam Narrative: EXAM NARRATIVE: GEN: Awake, alert and oriented, no acute distress , word salad CVS: S1S2 N RS: CTA B/L Abd: not examined Data : 07/27/20 03:15 07/27/20 03:15 A&P Assessment and plan (1) Acute delirium: Upset at not being able to return home, delirium appears improved today. - In reveiwing notes from her PCP office and reports from home care , medicine assessment here with concern for vascular dementia and acute delirium earlier in the course of admission, psychiatry assessment for capacity, she shows limited understanding of the situation and is able to communicate her wishes but lacks appreciation of the consequences of the decisions and is unable to show any rational reasoning surrounding arriving at her decision. Specific instances documented in prior notes. For the above reasons, and no family members available to act as DPOA, guardianship is being pursued at this time and placement to SNF being sought as she is unsafe to be discharged home. - Delirium likely Secondary to COVID-19 pneumonia, improving -Has a history of CVA, embolic strokes, seizures, likely may have developed vascular dementia additionally -Has 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 -LP does not show any significant signs of bacterial or viral meningitis -Haldol as needed for anxiety, delirium -1:1 sitter Status: Acute (2) Pneumonia due to COVID-19 virus: -received remdisivir over 2 days, thereafter refused treatment -Decadron changed to po prednisone 40mg qd today , will taper over the next 10 days and then stop -s/p empiric ceftriaxone course -remains on room air now, titrated off oxygen -remains afebrile -Vitamin C, zinc -Advair albuterol Status: Acute (3) Metabolic encephalopathy: Secondary to COVID-19, history of temporal lobe encephalomalacia Status: Acute (4) Recurrent falls: PT OT Status: Acute (5) Essential hypertension: Continue home blood pressure medications Status: Acute (6) Diabetes mellitus with neuropathy: continue 60 units Lantus and reduce pre meal insulin to 30 units Status: Acute Qualifiers: Diabetes mellitus type: type 2 Diabetes mellitus senior living insulin use: with senior living use Qualified Code(s): E11.40 - Type 2 diabetes mellitus with diabetic neuropathy, unspecified; Z79.4 - termite treater helper (current) use of insulin (7) Mixed hyperlipidemia: Continue home medication Status: Acute (8) Poor social situation: -Both parents were patient's caregivers -Especially after her strokes a year ago and recurrent strokes, she has had decline in her cognitive functioning, physical deconditioning, will need chcf placement -There is been many concerns for her poor social situation as outpatient by PCP, has had ER visits for this -Her mother is on hospice, currently at [facility], with COVID-19 -Father has severe dementia, with COVID-19 , unable to be her sanitary plumber -she is insistent on returning home, however does not appear to have capacity to fully understand all aspects of her decision of returning home. Psychiatry assessment appreciated. Status: Acute (9) Multinodular thyroid: Will require outpatient follow-up Status: Acute (10) Acute embolic stroke: On Eliquis, statin, aspirin Status: Acute (11) Right humeral fracture: Status: Acute (12) DELORIS (acute kidney injury): Continue IV fluids Status: Acute (13) Hyperkalemia: Status: Acute (14) Hyponatremia: improved Status: Acute (15) Bilateral pneumonia: off oxygen now Status: Acute (16) Hypomagnesemia: resolved Status: Acute Attestations Medical Necessity Statement*: awaiting placement at SNF, guardianship arrangements Coding Level of Care Code Acute Sole Tier for [facility] Fwd Diagnoses Acute delirium R41.0 Pneumonia due to COVID-19 virus U07.1; J12.89 Metabolic encephalopathy G93.41 Recurrent falls R29.6 Essential hypertension I10 Diabetes mellitus with neuropathy E11.40; Z79.4 Diabetes mellitus type: type 2 Diabetes mellitus senior living insulin use: with terminal clerk use Mixed hyperlipidemia E78.2 Poor social situation Z65.9 Multinodular thyroid E04.2 Acute embolic stroke I63.9 Right humeral fracture S42.301A DELORIS (acute kidney injury) N17.9 Hyperkalemia E87.5 Hyponatremia E87.1 Bilateral pneumonia J18.9 Hypomagnesemia E83.42
[2020-07-30 17:18] LABS: Glucose Point of Care 306 mg/dL (70-110)
--- NOTE | 2020-07-30 22:32 | PC.NURSE ---
Addendum entered by Staci Aranda RN 07/30/20 22:40: Notified Dr. Armijo of patient's refusal of care. Original Note: Patient refused to allow nurse to perform physical assessment or pass medications. She previously refused blood sugar check even after she was educated on the risks of this.
[2020-07-31] MEDS: spironolactone 25 mg Tablet 50 MG PO (06:27)
[2020-07-31] MEDS: hydroCHLOROthiazide 25 mg Tablet PO (06:27)
[2020-07-31 06:38] LABS: Glucose Point of Care 124 mg/dL (70-110)
[2020-07-31 07:26] VITALS: BP 126/76; PULSE 62; RESP 17; TEMP 36.7; O2SAT 96
[2020-07-31] MEDS: zinc gluconate 50 mg Tablet PO (08:05)
[2020-07-31] MEDS: clopidogrel 75 mg Tablet PO (08:05)
[2020-07-31] MEDS: lisinopril 10 mg Tablet PO (08:05)
[2020-07-31] MEDS: predniSONE 20 mg Tablet 30 MG PO (08:05)
[2020-07-31] MEDS: ascorbic acid 500 mg Tablet PO ×2 (08:05→17:38)
[2020-07-31] MEDS: allopurinol 300 mg Tablet PO (08:05)
[2020-07-31] MEDS: metoprolol tartrate 25 mg Tablet 37.5 MG PO ×2 (08:05→17:38)
[2020-07-31] MEDS: pantoprazole DR 40 mg Tablet PO (08:05)
[2020-07-31] MEDS: atorvastatin 40 mg Tablet 80 MG PO (08:05)
[2020-07-31 08:30] VITALS: PULSE 62; RESP 18; O2SAT 96
[2020-07-31] MEDS: LORazepam 1 mg Tablet PO ×2 (10:26→17:38)
[2020-07-31] MEDS: apixaban 5 mg Tablet PO ×2 (10:26→21:40)
[2020-07-31 11:01] LABS: Glucose Point of Care 177 mg/dL (70-110)
[2020-07-31 11:06] VITALS: BP 120/73; PULSE 60; RESP 18; TEMP 36.8; O2SAT 97
--- NOTE | 2020-07-31 14:09 | PM.PN ---
Subjective Subjective: Interval history: She states that she needs to go home to feed her 12 cats and also that her phone and utilities will get disconnected and that she needs to urgently get in touch with people. She states that her father is crazy and that everything has been his fault. States that he did not do anything waiting for a long time after she broke her leg (pointing to the shoulder fracture) and that is how everything began. States that she needs to go home immediately to feed her cats. Vitals/I&O/Wt Last Vital Signs Temp 98.2 F 07/31/20 11:06 Pulse 60 07/31/20 11:06 Resp 18 07/31/20 11:06 BP 120/73 07/31/20 11:06 Pulse Ox 97 07/31/20 11:06 07/30/20 07/31/20 07/31/20 22:59 06:59 14:59 Intake Total 240 / 720 820 / 820 Balance 240 / 720 820 / 820 Physical Exam Const: COMMON NORMALS: no acute distress and alert NUTRITIONAL APPEARANCE: overweight ORIENTATION/CONSCIOUSNESS: Yes awake HENMT: COMMON NORMALS: oropharynx normal Neck/C-Spine: COMMON NORMALS: no JVD Resp: COMMON NORMALS: normal respiratory effort and clear to auscultation bilaterally AUSCULTATION: clear to auscultation bilaterally Cardio: COMMON NORMALS: no JVD, regular rhythm, S1 normal heart sound present, S2 normal heart sound present and No murmurs present (Cardio) RHYTHM: regular rhythm HEART SOUNDS: S1 normal heart sound present and S2 normal heart sound present GI: COMMON NORMALS: Normal to inspection, nondistended, normoactive bowel sounds present, Soft to palpation and non-tender PALPATION: Yes Soft to palpation Extremity: COMMON NORMALS: no joint enlargement and no pedal edema OTHER: Protecting R shoulder. Neuro: COMMON NORMALS: moves all extremities SENSORIUM/ORIENTATION: Yes alert Skin: COMMON NORMALS: no rashes or lesions noted GENERAL SKIN EXAM: no rashes or lesions noted Data : 07/27/20 03:15 07/27/20 03:15 A&P Assessment and plan (1) Acute delirium: Requests to return home. Does not appear to realize concern for her own safety. Appears to be mostly concerned about the cats that she needs to feed at home. Arrangements are underway for guardianship and placement. Appreciate SS updates. -Improving delirium after COVID 19 -Has a history of CVA, embolic strokes, seizures, likely may have developed vascular dementia additionally -Has 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 -LP does not show any significant signs of bacterial or viral meningitis -Haldol as needed for anxiety, delirium -continue 1:1 sitter Status: Acute (2) Pneumonia due to COVID-19 virus: Doing well on RA currently. Monitor. -received remdisivir over 2 days, thereafter refused treatment -Decadron changed to po prednisone. Taper dose. Currently 30mg. -s/p empiric ceftriaxone course -Vitamin C, zinc -Advair albuterol Status: Acute (3) Metabolic encephalopathy: Multifactorial as above. Status: Acute (4) Recurrent falls: PT OT Status: Acute (5) Essential hypertension: At goal. Continue home blood pressure medications. Status: Acute (6) Diabetes mellitus with neuropathy: 60 units Lantus and pre meal insulin 30 units Status: Acute Qualifiers: Diabetes mellitus type: type 2 Diabetes mellitus retirement insulin use: with intermediate frame tender use Qualified Code(s): E11.40 - Type 2 diabetes mellitus with diabetic neuropathy, unspecified; Z79.4 - long term (current) use of insulin (7) Mixed hyperlipidemia: Continue home medication Status: Acute (8) Poor social situation: -Both parents were patient's caregivers -Especially after her strokes a year ago and recurrent strokes, she has had decline in her cognitive functioning, physical deconditioning, will need senior living placement -There have been many concerns for her poor social situation as outpatient by PCP, has had ER visits for this -Her mother is on hospice, currently at [facility], with COVID-19 -Father has severe dementia, with COVID-19 , unable to be her reptile farmer -she is insistent on returning home, however does not appear to have capacity to fully understand all aspects of her decision of returning home. Status: Acute (9) Multinodular thyroid: Will require outpatient follow-up Status: Acute (10) Acute embolic stroke: On Eliquis, statin, aspirin Status: Acute (11) Right humeral fracture: Appears stable on XR /. She had declined a sling. Status: Acute (12) DELORIS (acute kidney injury): Avoid nephrotoxins. Status: Acute (13) Hyperkalemia: Resolved. Status: Acute (14) Hyponatremia: improved Status: Acute (15) Bilateral pneumonia: Well on RA Status: Acute (16) Hypomagnesemia: resolved Status: Acute Additional A&P Information Plan is to continue taper of prednisone, monitor off antibiotics, continue PT OT, speech therapy, monitor mentation, conitnue guardianship and placement arrangements. Attestations Medical Necessity Statement*: Continue assessment and management following COVID 19 illness, mibilization and continued arrangements for guardianship and placement. Coding Level of Care Code Acute Paster Hat Lining for [facility] Fwd Diagnoses Acute delirium R41.0 Pneumonia due to COVID-19 virus U07.1; J12.89 Metabolic encephalopathy G93.41 Recurrent falls R29.6 Essential hypertension I10 Diabetes mellitus with neuropathy E11.40; Z79.4 Diabetes mellitus type: type 2 Diabetes mellitus retirement insulin use: with intermediate frame tender use Mixed hyperlipidemia E78.2 Poor social situation Z65.9 Multinodular thyroid E04.2 Acute embolic stroke I63.9 Right humeral fracture S42.301A DELORIS (acute kidney injury) N17.9 Hyperkalemia E87.5 Hyponatremia E87.1 Bilateral pneumonia J18.9 Hypomagnesemia E83.42
[2020-07-31 15:22] VITALS: BP 122/71; PULSE 62; RESP 18; TEMP 36.6; O2SAT 97
[2020-07-31 20:31] VITALS: BP 86/55; PULSE 68; RESP 17; TEMP 37.3; O2SAT 95
[2020-07-31 20:50] LABS: Glucose Point of Care 296 mg/dL (70-110)
[2020-07-31] MEDS: insulin glargine 100 units/1 mL 60 UNIT SUBCUT (21:39)
[2020-07-31] MEDS: levETIRAcetam 500 mg Tablet PO (21:40)
[2020-08-01] VITALS: BP 96/64; PULSE 54; RESP 17; TEMP 36; O2SAT 96
[2020-08-01 04:00] VITALS: BP 101/58; PULSE 69; RESP 17; TEMP 37.2; O2SAT 95
[2020-08-01] MEDS: LORazepam 1 mg Tablet PO ×2 (04:49→17:40)
--- NOTE | 2020-08-01 06:27 | PC.NURSE ---
Refused labs Patient refused labs she stated she has been stuck 4 days no more blood.
[2020-08-01 06:39] LABS: Glucose Point of Care 169 mg/dL (70-110)
[2020-08-01 07:59] VITALS: BP 110/64; PULSE 68; RESP 18; TEMP 36.7; O2SAT 96
[2020-08-01 08:30] VITALS: PULSE 68; RESP 18; O2SAT 96
--- NOTE | 2020-08-01 11:07 | PC.NURSE ---
Patient sleeping upon shift assessment. Able to complete physical assessment this morning. After breakfast patient woke up and refused to eat her breakfast stating, You killed my father. I want to go home NOW. After ORDER CONTROL CLERK BLOOD BANK left tray for patient to try and eat and picked it up after breakfast the patient claimed to the sitter that we were starving her. ORDER CONTROL CLERK BLOOD BANK presented more food for patient and she threw it across the room. This nurse went in multiple times to attempt to get patient to take medications and she refused stating, Home now. My grandfather got food. That's all he got was food then he , so I need to go home to get the food. Left patients room. Non-administered the medications in the MAR and wasted meds in sharps container with charge nurse present. Will attempt to try and give patient PRN Ativan PO to help with her anxiety and aggressive behaviors after a little while. One-on-one sitter present in room and patient has been offered drinks and food at this time.
--- NOTE | 2020-08-01 14:04 | PM.PN ---
Subjective Subjective: Interval history: Has been more restless this monring, insistent on going home as she is worried about her cats. Discussed with her that I was informed arrangements were made for her cats to be fed. Although this does not appear to satisfy her concern. She states she does not want to be in this unit because this is where her father . Vitals/I&O/Wt Last Vital Signs Temp 98.0 F 08/01/20 07:59 Pulse 68 08/01/20 08:30 Resp 18 08/01/20 08:30 BP 110/64 08/01/20 07:59 Pulse Ox 96 08/01/20 08:30 07/31/20 08/01/20 08/01/20 22:59 06:59 14:59 Intake Total 900 / 1720 480 / 2200 480 / 480 Balance 900 / 1720 480 / 2200 480 / 480 Physical Exam Const: COMMON NORMALS: no acute distress NUTRITIONAL APPEARANCE: overweight OTHER: Asleep. Wakes up to voice. HENMT: COMMON NORMALS: oropharynx normal Neck/C-Spine: COMMON NORMALS: no JVD Resp: COMMON NORMALS: normal respiratory effort and clear to auscultation bilaterally AUSCULTATION: clear to auscultation bilaterally Cardio: COMMON NORMALS: no JVD, regular rhythm, S1 normal heart sound present, S2 normal heart sound present and No murmurs present (Cardio) RHYTHM: regular rhythm HEART SOUNDS: S1 normal heart sound present and S2 normal heart sound present GI: COMMON NORMALS: Normal to inspection, nondistended, normoactive bowel sounds present, Soft to palpation and non-tender PALPATION: Yes Soft to palpation Extremity: COMMON NORMALS: no joint enlargement and no pedal edema OTHER: Protecting R shoulder. Neuro: COMMON NORMALS: moves all extremities Skin: COMMON NORMALS: no rashes or lesions noted GENERAL SKIN EXAM: no rashes or lesions noted Data : 07/27/20 03:15 07/27/20 03:15 A&P Assessment and plan (1) Acute delirium: Discussed with psychiatrist again who had seen her yesterday. She does not exhibit improvement in capacity to make safe decisions. Arrangements are underway for guardianship and placement. Appreciate SS updates. She declined to take medications today. Discussed with her importance of taking them. -Improving delirium after COVID 19 -Has a history of CVA, embolic strokes, seizures, likely may have developed vascular dementia additionally -Has 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 -LP does not show any significant signs of bacterial or viral meningitis -Haldol as needed for anxiety, delirium -continue 1:1 sitter Status: Acute (2) Pneumonia due to COVID-19 virus: Decrease prednisone dose to 20mg. Doing well on RA currently. Monitor. -received remdisivir over 2 days, thereafter refused treatment -s/p empiric ceftriaxone course -Vitamin C, zinc -Advair albuterol Status: Acute (3) Metabolic encephalopathy: Multifactorial as above. Status: Acute (4) Recurrent falls: PT OT Status: Acute (5) Essential hypertension: At goal. Continue home blood pressure medications. Status: Acute (6) Diabetes mellitus with neuropathy: Continue glucose monitoring. 60 units Lantus and pre meal insulin 30 units. Status: Acute Qualifiers: Diabetes mellitus skilled nursing insulin use: with long term acute care registered nurse use Diabetes mellitus type: type 2 Qualified Code(s): E11.40 - Type 2 diabetes mellitus with diabetic neuropathy, unspecified; Z79.4 - [facility] (current) use of insulin (7) Mixed hyperlipidemia: Continue home medication Status: Acute (8) Poor social situation: -Both parents were patient's caregivers -Especially after her strokes a year ago and recurrent strokes, she has had decline in her cognitive functioning, physical deconditioning, will need care home placement -There have been many concerns for her poor social situation as outpatient by PCP, has had ER visits for this -Her mother is on hospice, currently at [facility], with COVID-19 -Father has severe dementia, with COVID-19 , unable to be her global account director -she is insistent on returning home, however does not appear to have capacity to fully understand all aspects of her decision of returning home. Status: Acute (9) Multinodular thyroid: Will require outpatient follow-up Status: Acute (10) Acute embolic stroke: On Eliquis, statin, aspirin Status: Acute (11) Right humeral fracture: Appears stable on XR 07/23. She had declined a sling. Status: Acute (12) DELORIS (acute kidney injury): Avoid nephrotoxins. Status: Acute (13) Hyperkalemia: Resolved. Status: Acute (14) Hyponatremia: improved Status: Acute (15) Bilateral pneumonia: Well on RA Status: Acute (16) Hypomagnesemia: resolved Status: Acute Additional A&P Information Plan is to continue taper of prednisone, monitor off antibiotics, continue PT OT, speech therapy, monitor mentation, conitnue guardianship and placement arrangements. Attestations Medical Necessity Statement*: Continue treatment following COVID 19, tapering of steroid, arrangements for guardianship and placement. Coding Level of Care Code Acute Plastic Surgery Assistant for g Fwd Exam Comprehensive Diagnoses Acute delirium R41.0 Pneumonia due to COVID-19 virus U07.1; J12.89 Metabolic encephalopathy G93.41 Recurrent falls R29.6 Essential hypertension I10 Diabetes mellitus with neuropathy E11.40; Z79.4 Diabetes mellitus skilled nursing insulin use: with skilled nursing use Diabetes mellitus type: type 2 Mixed hyperlipidemia E78.2 Poor social situation Z65.9 Multinodular thyroid E04.2 Acute embolic stroke I63.9 Right humeral fracture S42.301A DELORIS (acute kidney injury) N17.9 Hyperkalemia E87.5 Hyponatremia E87.1 Bilateral pneumonia J18.9 Hypomagnesemia E83.42
[2020-08-01] MEDS: metoprolol tartrate 25 mg Tablet 37.5 MG PO (17:40)
--- NOTE | 2020-08-01 20:44 | PC.NURSE ---
Patient refused Accu-Check.
[2020-08-01 21:59] VITALS: PULSE 77; RESP 17; O2SAT 99
[2020-08-01 21:59] LABS: Glucose Point of Care 282 mg/dL (70-110)
[2020-08-02] VITALS (7 sets, daily range): BP systolic 115–125; BP diastolic 73–79; PULSE 67–85; RESP 17–22; TEMP 36.4–37.1; O2SAT 93–98
--- NOTE | 2020-08-02 06:06 | PC.NURSE ---
Pt refused all medications tonight. AIRCRAFT ENGINEER came out at one point and stated pt was getting very anxious and was slamming closet doors, stating, I'm going home. Pt has been confused and would not answer neuro assessment questions. Pt began getting angry with her dad when trying to talk with pt on multiple occasions. This nurse was going to give the pt IM ativan, but pt began to grab toward this nurse's hands in order to take away syringe and bandage. Pt stated, I'm just going to sit here and watch TV. Pt refused all vital signs until morning but did not allow for temperature check. Pt refused morning labs and PO meds.
--- NOTE | 2020-08-02 07:10 | PC.NURSE ---
pt refused blood sugar pt is very upset wants to go home
--- NOTE | 2020-08-02 09:54 | PC.NURSE ---
pt is wanting go home pt states she doesnt like it here she doesnt like the food or anyone
--- NOTE | 2020-08-02 10:11 | PC.NURSE ---
pt states wants to see doc she wants to go home nurse bharati notified
--- NOTE | 2020-08-02 10:43 | PC.NURSE ---
pt refused blood sugar to be taken
--- NOTE | 2020-08-02 10:44 | PC.NURSE ---
pt is not happy she just keeps saying she has to go home to feed her cats and take care of her cats
--- NOTE | 2020-08-02 10:46 | PC.NURSE ---
pt refuses vitials to be done at this time
--- NOTE | 2020-08-02 10:52 | PM.PN ---
Subjective Subjective: Interval history: She demands to go home. When asked how she will get home she redirects the conversation stating that she needs to go now and that for 3 and now 4 days her cats have not been getting food. When told that arrangements were made for home health to feed them, she states that they are most likely not giving the right food and that they need special food, although she does not know the name or where to get it. Only knows where it is kept in the grocery store. She states that she drives to get it. She then repeats her concern about her cats several times and states that she needs to be released home right now. When asked if she knows why she is in the hospital cannot answer. States she was supposed to be here for 3 hours only (appears to refer to involuntary hold paperwork). When asked if she understands what the concern has been about her going home and staying by herself she does not answer and states again wants to go home and have her cats sit around her and on her lap and watch tv there. When stating to her that the doctors have been concerned about her safety with staying at home by herself she interjects that she cannot be kept here and feels that it is her father keeping her here so he can be in charge and take all the money . States her father is cuckoo and that she has been in addition to feeding her cats to feed his cat as well because he was not using the right food. She then gets upset about still being here. When asked if there is anyone who could help her manage her affairs at home, she states 12 , by which appears to mean that she needs to be discharged at noon. She names Oscar, although does not know his last name and not able to state their relation despite question asked in siple way multiple times. States he has something to do with her cars. She then again states she needs to go home because her house and cars are going to blow up . Vitals/I&O/Wt Last Vital Signs Temp 97.6 F 08/02/20 07:08 Pulse 67 08/02/20 07:08 Resp 20 H 08/02/20 04:48 BP 117/78 08/02/20 07:08 Pulse Ox 94 08/02/20 07:08 08/01/20 08/02/20 08/02/20 22:59 06:59 14:59 Intake Total 300 / 780 240 / 240 Balance 300 / 780 240 / 240 Physical Exam Const: COMMON NORMALS: no acute distress NUTRITIONAL APPEARANCE: overweight ORIENTATION/CONSCIOUSNESS: Yes awake OTHER: Awake, irritable. Wanting to leave. 1:1 sitter in the room. HENMT: COMMON NORMALS: oropharynx normal Neck/C-Spine: COMMON NORMALS: no JVD Resp: COMMON NORMALS: normal respiratory effort and clear to auscultation bilaterally AUSCULTATION: clear to auscultation bilaterally Cardio: COMMON NORMALS: no JVD, regular rhythm, S1 normal heart sound present, S2 normal heart sound present and No murmurs present (Cardio) RHYTHM: regular rhythm HEART SOUNDS: S1 normal heart sound present and S2 normal heart sound present GI: COMMON NORMALS: Normal to inspection, nondistended, normoactive bowel sounds present, Soft to palpation and non-tender PALPATION: Yes Soft to palpation Extremity: COMMON NORMALS: no joint enlargement and no pedal edema OTHER: Protecting R shoulder. Neuro: COMMON NORMALS: moves all extremities Skin: COMMON NORMALS: no rashes or lesions noted GENERAL SKIN EXAM: no rashes or lesions noted Data : 07/27/20 03:15 07/27/20 03:15 A&P Assessment and plan (1) Acute delirium: She is adamant about leaving home, but appears to persevere on the safety of her cats and still despite prolonged conversation and questions asked in multiple simple ways seems unable to explain or restate the concern that has been expressed about her safely managing her affairs at home, nor a plan as to how she may even just get home or continue her activities there. Arrangements are underway for guardianship and placement. Appreciate SS updates. She declined to take medications. Reportedly ate some breakfast. -Improving delirium after COVID 19 -Has a history of CVA, embolic strokes, seizures, likely may have developed vascular dementia additionally -Has 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 -LP does not show any significant signs of bacterial or viral meningitis -Haldol as needed for anxiety, delirium -continue 1:1 sitter Status: Acute (2) Pneumonia due to COVID-19 virus: Discontinue prednisone. Doing well on RA currently. Monitor. -received remdisivir over 2 days, thereafter refused treatment -s/p empiric ceftriaxone course -Vitamin C, zinc -Advair albuterol Status: Acute (3) Metabolic encephalopathy: Multifactorial as above. Status: Acute (4) Recurrent falls: PT OT Status: Acute (5) Essential hypertension: At goal. Continue home blood pressure medications. Status: Acute (6) Diabetes mellitus with neuropathy: Continue glucose monitoring. 60 units Lantus and pre meal insulin 30 units. Status: Acute Qualifiers: Diabetes mellitus type: type 2 Diabetes mellitus long term care phlebotomist insulin use: with correction use Qualified Code(s): E11.40 - Type 2 diabetes mellitus with diabetic neuropathy, unspecified; Z79.4 - nursing home (current) use of insulin (7) Mixed hyperlipidemia: Continue home medication Status: Acute (8) Poor social situation: -Both parents were patient's caregivers -Especially after her strokes a year ago and recurrent strokes, she has had decline in her cognitive functioning, physical deconditioning, will need detention placement -There have been many concerns for her poor social situation as outpatient by PCP, has had ER visits for this -Her mother is on hospice, currently at [facility], with COVID-19 -Father has severe dementia, with COVID-19 , unable to be her office machine inspector -she is insistent on returning home, however does not appear to have capacity to fully understand all aspects of her decision of returning home. Status: Acute (9) Multinodular thyroid: Will require outpatient follow-up Status: Acute (10) Acute embolic stroke: On Eliquis, statin, aspirin Status: Acute (11) Right humeral fracture: Appears stable on XR /. She had declined a sling. Status: Acute (12) DELORIS (acute kidney injury): Avoid nephrotoxins. Status: Acute (13) Hyperkalemia: Resolved. Status: Acute (14) Hyponatremia: improved Status: Acute (15) Bilateral pneumonia: Well on RA Status: Acute (16) Hypomagnesemia: resolved Status: Acute Additional A&P Information Weaned off steroid, continue reassessments of mental status, conitnue guardianship and placement arrangements. Attestations Medical Necessity Statement*: Continue admission after she is weaned off steroid and continue reassessments of mental status, conitnue guardianship and placement arrangements. Coding Level of Care Code Acute Bore Miner Operator for [facility] Diagnoses Acute delirium R41.0 Pneumonia due to COVID-19 virus U07.1; J12.89 Metabolic encephalopathy G93.41 Recurrent falls R29.6 Essential hypertension I10 Diabetes mellitus with neuropathy E11.40; Z79.4 Diabetes mellitus type: type 2 Diabetes mellitus correction insulin use: with long term care phlebotomist use Mixed hyperlipidemia E78.2 Poor social situation Z65.9 Multinodular thyroid E04.2 Acute embolic stroke I63.9 Right humeral fracture S42.301A DELORIS (acute kidney injury) N17.9 Hyperkalemia E87.5 Hyponatremia E87.1 Bilateral pneumonia J18.9 Hypomagnesemia E83.42
--- NOTE | 2020-08-02 12:05 | PC.NURSE ---
Pt continues to refuse medication and glucose checks. Dr. Echeverria notified.
--- NOTE | 2020-08-02 13:03 | PC.NURSE ---
pt states her hands and head hurts but she doesnt want any meds she will take care of it when she gets home.pt also refused vitails at this time
--- NOTE | 2020-08-02 13:16 | PC.NURSE ---
pt opened up her food plate than thew it at the wall stateing this is shit they feed her shit every day she needs to go home so she can eat some real food
--- NOTE | 2020-08-02 14:18 | PC.NURSE ---
pt is just saying over and over to take her home let her out of here all she wants is her house and cats
--- NOTE | 2020-08-02 14:30 | PC.NURSE ---
pt wanted go for a walk so we walked in [address]
--- NOTE | 2020-08-02 14:42 | PC.NURSE ---
pt refused vitails pt is still not happy she still wants to go home
--- NOTE | 2020-08-02 14:58 | PC.NURSE ---
pt is yeling out go to hell u bitch i want to go home u bitch i want to eat my own food
--- NOTE | 2020-08-02 15:06 | PC.NURSE ---
pt kept yellin calling me a bitch wanting me to get out she got up and walked out the door where nurse was try to get off the floor thew back door kept yelling at me calling me a bitch nurse is taking over
--- NOTE | 2020-08-02 15:22 | PC.NURSE ---
Pt became agitated while ambulating in the hallway with this nurse and 1:1 sitter. Pt stated, I have to leave. I have to get to my cats. They aren't feeding my cats the right food. I need to go home. They told me 14, 15, and 16. It's 16 and I want to go home. This nurse assured pt her cats were being taken care of and fed. Pt became more agitated and stated, I need to eat. This food they bring is shit. I won't eat that shit. That bitch in my room needs to leave. I need peace. This nurse asked pt what she would like to eat, to which she replied, good food. No salt. Pt was asked to go back to her room. Pt attempted to leave [facility] via [place] door. This nurse stood between pt and stairs and assured pt she could have something to eat if she would go back to her room. Reinforcement from other nurses requested. Pt continued to be agitated and verbally aggressive but consented to return to her room. This nurse offered pt a sandwich, to which pt replied, it has to be hot. No salt. The last one was frozen. This nurse heated a ham and cheese sandwich and offered it to the pt. Pt refused sandwich. 1:1 sitter at bedside and pt sitting on the side of the bed. Will continue to monitor.
--- NOTE | 2020-08-02 15:31 | PC.NURSE ---
pt. has refused vitals she is very upset and confused all pt wants is to go home.
--- NOTE | 2020-08-02 16:27 | PC.NURSE ---
Pt refused AccuCheck. Stated, home. I told you we aren't doing that. I'll get my pills and bills at the house.
--- NOTE | 2020-08-02 19:15 | PC.NURSE ---
Pt opened door and walked out into hallway. Pt was ambulating in the [place] with this nurse, looked over st the PSA and stated she was a whore. This nurse told pt that wasn't nice and that PSA was there to help. Pt began stating, I need to go home and go check on Mom. She told me she was and I need to see her. She is a whore and can go to hell (refering to PSA). This is all dad's fault and he can go to hell, too. Pt walked a few laps in the [place] before returning to room.
--- NOTE | 2020-08-02 22:29 | PC.NURSE ---
Pt refused night time meds. This nurse showed pt the medication packages before opening them to try to get pt to take the meds. Pt threw the meds in the air and stated, No more. I told them I wasn't taking these anymore. This nurse educated pt that the meds were Keppra to help with seizures and Eliquis to help prevent blood clots and that it was important that she took her meds. Pt again refused. When this nurse asked the pt why she did not want to take the medications, Pt stated, I'm not taking them because Brambila is an asshole and I told him he's not my doctor anymore. This nurse and HYDRAULIC DREDGE OPERATOR attempted to pt's blood sugar at the same time, and pt refused. Pt stated, I only do the one that they put in my baby, pointing to pt's belly, they did it here last time, gesturing to fingerstick, and I said no more. This nurse asked pt if her doctor was trying to get an blood sugar implant device in her abdomen and pt stated her doctor wouldn't do it.
[2020-08-03 04:00] VITALS: BP 127/75; PULSE 82; RESP 16; TEMP 36.6; O2SAT 97
--- NOTE | 2020-08-03 06:46 | PC.NURSE ---
Pt refused meds and accuchecks throughout the night. Pt refused meds this morning, stating, I'm not taking those weird ones. I takes the seven four ones. Pt educated on the importance of taking her medications and pt again refused.
[2020-08-03 06:51] LABS: Glucose Point of Care 268 mg/dL (70-110)
[2020-08-03 08:00] VITALS: BP 126/86; PULSE 84; RESP 18
[2020-08-03] MEDS: atorvastatin 40 mg Tablet 80 MG PO (08:33)
[2020-08-03] MEDS: allopurinol 300 mg Tablet PO (08:33)
[2020-08-03] MEDS: zinc gluconate 50 mg Tablet PO (08:33)
[2020-08-03] MEDS: clopidogrel 75 mg Tablet PO (08:34)
[2020-08-03] MEDS: metoprolol tartrate 25 mg Tablet 37.5 MG PO ×2 (08:34→17:30)
[2020-08-03] MEDS: ascorbic acid 500 mg Tablet PO ×2 (08:34→17:30)
[2020-08-03 10:55] VITALS: BP 116/62; PULSE 62; RESP 18; TEMP 37.1; O2SAT 97
--- NOTE | 2020-08-03 12:07 | PM.PN ---
Subjective Subjective: Interval history: She ate a little today, but says she does not like the food. Insists she is to leave the hospital. States she is late to feed the cats and says that they will not be fed the right food and will not do well without her there. States they need special food. When asked what food is the good kind, says I usually get it . Asking for clarification on what kind of food states milk then goes on to say some bread , although it appears she then is talking about her own oral intake this morning because says then that she barely ate anything, and again states she does not like the food. States does not like hamburger. I asked if there are any foods she herself prefers, to which she did not answer. I again discussed with her concern that she has not been safe to return home as is without a good support system and without anybody to stay with her, to which she did not react and did not acknowledge the concern, just simply ignores the discussion. Discussed with her that her parents are in senior living. She does not appear to have been aware of that. Discussed concern that she has not had anyone else who could live with her to make things safe. She at that point redirects to her request about leaving and concern about the health of her cats and the orange cat in particular. She otherwise denies any shortness of breath, headache, N/V or diarrhea. Has no chest or abdominal pain. Vitals/I&O/Wt Last Vital Signs Temp 98.8 F 08/03/20 10:55 Pulse 62 08/03/20 10:55 Resp 18 08/03/20 10:55 BP 116/62 08/03/20 10:55 Pulse Ox 97 08/03/20 10:55 08/02/20 08/03/20 08/03/20 22:59 06:59 14:59 Intake Total 240 / 960 240 / 240 Balance 240 / 960 240 / 240 Physical Exam Const: COMMON NORMALS: no acute distress NUTRITIONAL APPEARANCE: overweight ORIENTATION/CONSCIOUSNESS: Yes awake OTHER: Irritable. Able to stand up and walk to the window and back on her own. Wanting to leave. 1:1 sitter in the room. HENMT: COMMON NORMALS: oropharynx normal Neck/C-Spine: COMMON NORMALS: no JVD Resp: COMMON NORMALS: normal respiratory effort and clear to auscultation bilaterally AUSCULTATION: clear to auscultation bilaterally Cardio: COMMON NORMALS: no JVD, regular rhythm, S1 normal heart sound present, S2 normal heart sound present and No murmurs present (Cardio) RHYTHM: regular rhythm HEART SOUNDS: S1 normal heart sound present and S2 normal heart sound present GI: COMMON NORMALS: Normal to inspection, nondistended, normoactive bowel sounds present, Soft to palpation and non-tender PALPATION: Yes Soft to palpation Extremity: COMMON NORMALS: no joint enlargement and no pedal edema Neuro: COMMON NORMALS: moves all extremities Skin: COMMON NORMALS: no rashes or lesions noted GENERAL SKIN EXAM: no rashes or lesions noted Data : 07/27/20 03:15 07/27/20 03:15 A&P Assessment and plan (1) Acute delirium: She is now able to ambulate a little and overall appears mental status does not appear is improving any further. She is adamant about leaving home, but appears to persevere on the safety of her cats and appears not to even acknowledge that there is a concern about her safety. She ignores any attempts to discuss this or redirects to topic of concern - going home and feeding the cats. Her safety does not appear to be an issue that exists in her mind despite multiple prior discussions. Arrangements are underway for guardianship and placement. Appreciate SS updates. She appears to be recovering well from COVID 19 and has not been requiring oxygen (one recorded value appears may have been spurious). Her isolation may now be discontinued. We are confirming with psychiatry if additional supportive care may be continued on psychiatric unit pending above arrangements. Otherwise may continue on medical floor. Continue to encourage adherence with her medicines. Encourage oral intake. Added protein shakes. If she may let us know what foods she likes, perhaps we can request for those. 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 Doing well on RA. DC isolation. Consideration is given to additional supportive care on neuropsychiatric unit to provide a little less restrictive environment, better interaction and possibility of observation while pending guardianship and further living arrangements. This is being discussed w SS and NPU team. -received remdisivir over 2 days, thereafter refused treatment -s/p empiric ceftriaxone course -Vitamin C, zinc -Advair albuterol Status: Acute (3) Metabolic encephalopathy: Multifactorial as above. Status: Acute (4) Recurrent falls: PT OT Status: Acute (5) Essential hypertension: At goal. Continue home blood pressure medications. Status: Acute (6) Diabetes mellitus with neuropathy: Continue glucose monitoring. 60 units Lantus and pre meal insulin 30 units. Status: Acute Qualifiers: Diabetes mellitus type: type 2 Diabetes mellitus detention insulin use: with terminal make up operator use Qualified Code(s): E11.40 - Type 2 diabetes mellitus with diabetic neuropathy, unspecified; Z79.4 - custodial (current) use of insulin (7) Mixed hyperlipidemia: Continue home medication Status: Acute (8) Poor social situation: -Both parents were patient's caregivers -Especially after her strokes a year ago and recurrent strokes, she has had decline in her cognitive functioning, physical deconditioning, will need senior living placement -There have been many concerns for her poor social situation as outpatient by PCP, has had ER visits for this -Her mother is on hospice, currently at [facility], with COVID-19 -Father has severe dementia, with COVID-19 , unable to be her advertising assistant manager -she is insistent on returning home, however does not appear to have capacity to fully understand all aspects of her decision of returning home. Status: Acute (9) Multinodular thyroid: Will require outpatient follow-up Status: Acute (10) Acute embolic stroke: Continue Eliquis, statin, aspirin Status: Acute (11) Right humeral fracture: Appears stable on XR /. She had declined a sling. Consider sling symptomatically if she will allow. Follow-up with primary care provider after discharge. Status: Acute (12) DELORIS (acute kidney injury): Avoid nephrotoxins. Status: Acute (13) Hyperkalemia: Resolved. Status: Acute (14) Hyponatremia: improved Status: Acute (15) Bilateral pneumonia: Well on RA Status: Acute (16) Hypomagnesemia: Resolved Status: Acute Additional A&P Information Continue reassessments of mental status, decisional capacity, capacity for self-care pending arrangements for guardianship and living arrangements for after discharge following treatment for COVID12 pneumonia. Attestations Medical Necessity Statement*: Continue reassessments of mental status, decisional capacity, capacity for self-care pending arrangements for guardianship and living arrangements for after discharge following treatment for COVID12 pneumonia. Coding Level of Care Code Acute Director Of Vital Statistics for [facility] Fwd Diagnoses Acute delirium R41.0 Pneumonia due to COVID-19 virus U07.1; J12.89 Metabolic encephalopathy G93.41 Recurrent falls R29.6 Essential hypertension I10 Diabetes mellitus with neuropathy E11.40; Z79.4 Diabetes mellitus type: type 2 Diabetes mellitus detention insulin use: with terminal make up operator use Mixed hyperlipidemia E78.2 Poor social situation Z65.9 Multinodular thyroid E04.2 Acute embolic stroke I63.9 Right humeral fracture S42.301A DELORIS (acute kidney injury) N17.9 Hyperkalemia E87.5 Hyponatremia E87.1 Bilateral pneumonia J18.9 Hypomagnesemia E83.42
[2020-08-03 14:45] VITALS: BP 124/79; PULSE 80; RESP 16; TEMP 36.8; O2SAT 100
[2020-08-03] MEDS: acetaminophen 325 mg Tablet 650 MG PO (17:29)
[2020-08-03 20:00] VITALS: BP 88/53; PULSE 59; RESP 18; TEMP 37.1; O2SAT 97
[2020-08-03 23:39] VITALS: BP 91/58; PULSE 77; RESP 18; TEMP 37.2; O2SAT 97
[2020-08-04 03:27] VITALS: BP 122/73; PULSE 64; RESP 18; TEMP 36.6; O2SAT 95
[2020-08-04] MEDS: spironolactone 25 mg Tablet 50 MG PO (05:31)
[2020-08-04 07:01] VITALS: BP 130/75; PULSE 62; RESP 15; TEMP 36.6; O2SAT 98
[2020-08-04] MEDS: zinc gluconate 50 mg Tablet PO (08:57)
[2020-08-04] MEDS: duloxetine 30 mg Capsule PO (08:58)
[2020-08-04] MEDS: lisinopril 10 mg Tablet PO (08:58)
[2020-08-04] MEDS: metoprolol tartrate 25 mg Tablet 37.5 MG PO (08:58)
[2020-08-04] MEDS: atorvastatin 40 mg Tablet 80 MG PO (08:58)
[2020-08-04] MEDS: ascorbic acid 500 mg Tablet PO ×2 (08:58→18:53)
[2020-08-04] MEDS: clopidogrel 75 mg Tablet PO (08:59)
[2020-08-04] MEDS: allopurinol 300 mg Tablet PO (08:59)
[2020-08-04] MEDS: apixaban 5 mg Tablet PO (09:03)
[2020-08-04 11:31] VITALS: BP 107/68; PULSE 77; RESP 16; TEMP 36.7; O2SAT 98
[2020-08-04 15:30] VITALS: BP 92/53; PULSE 77; RESP 16; TEMP 36.4; O2SAT 98
--- NOTE | 2020-08-04 16:18 | PM.PN ---
Subjective Subjective: Interval history: Doing okay. Denies any active complaints. She is eager to be discharged. Denies chest pain, shortness of breath, cough, palpitations. No nausea or vomiting. No fevers or chills. Medications: Reviewed: Yes Medication Review Details: Generic Name Dose Route Start Last Admin Trade Name Freq PRN Reason Stop Dose Admin Acetaminophen 650 mg 07/22/20 21:48 08/03/20 17:29 Acetaminophen 32 5 Mg Tablet PO 650 mg Q6H PRN Administration Mild/Mod Pain Or Temp >/= 101 Allopurinol 300 mg 07/23/20 09:00 08/04/20 08:59 Allopurinol 300 Mg Tablet PO 300 mg DAILY JAMAR Administration Apixaban 5 mg 07/22/20 22:00 08/04/20 09:03 Apixaban 5 Mg Ta blet PO 5 mg Q12H JAMAR Administration Ascorbic Acid 500 mg 07/23/20 09:00 08/04/20 08:58 Ascorbic Acid 50 0 Mg Tablet PO 500 mg BID JAMAR Administration Atorvastatin Calci um 80 mg 07/23/20 09:00 08/04/20 08:58 Atorvastatin 40 Mg Tablet PO 80 mg DAILY JAMAR Administration Clopidogrel Bisulf ate 75 mg 07/23/20 09:00 08/04/20 08:59 Clopidogrel 75 M g Tablet PO 75 mg DAILY JAMAR Administration Duloxetine HCl 30 mg 08/01/20 11:49 08/04/20 08:58 Duloxetine 30 Mg Capsule PO 30 mg DAILY JAMAR Administration Hydrochlorothiazid e 25 mg 07/23/20 06:00 08/04/20 05:30 Hydrochlorothiaz connie 25 Mg Tablet PO Not Given QAM COUNT INCLUDES THE [facility] Insulin Aspart 30 unit 07/30/20 18:00 08/04/20 12:17 Insulin Aspart 1 00 Unit/1 Ml SUBCUT Not Given TIDWM COUNT INCLUDES THE [facility] Insulin Glargine 60 unit 07/29/20 21:00 08/03/20 20:56 Insulin Glargine 100 Units/1 Ml SUBCUT Not Given BEDTIME JAMAR Levetiracetam 500 mg 07/22/20 22:35 08/04/20 11:42 Levetiracetam 50 0 Mg Tablet PO Not Given Q12H JAMAR Lisinopril 10 mg 07/23/20 09:00 08/04/20 08:58 Lisinopril 10 Mg Tablet PO 10 mg DAILY JAMAR Administration Lorazepam 1 mg 07/28/20 10:59 08/01/20 17:40 Lorazepam 1 Mg T ablet PO 1 mg Q6H PRN Administration ANXIETY Metoprolol Tartrat e 37.5 mg 07/23/20 09:00 08/04/20 08:58 Metoprolol Tartr ate 25 Mg Tablet PO 37.5 mg BID JAMAR Administration Pantoprazole Sodiu m 40 mg 07/23/20 09:00 08/04/20 08:[address] 40 Mg Tablet PO Not Given DAILY JAMAR Fluticasone/Salmet eben 1 puff 07/22/20 21:48 08/03/20 08:32 Fluticasone-Salm eterol 100-50 Disk us INHALATION Not Given BID.RESPIRATORY S CH Spironolactone 50 mg 07/23/20 06:00 08/04/20 05:31 Spironolactone 2 5 Mg Tablet PO 50 mg QAM JAMAR Administration Tizanidine HCl 6 mg 07/22/20 22:42 07/23/20 01:09 Tizanidine 4 Mg Tablet PO 6 mg BEDTIME PRN Administration muscle spasticity Zinc Gluconate 50 mg 07/23/20 09:00 08/04/20 08:57 Zinc Gluconate 5 0 Mg Tablet PO 50 mg DAILY JAMAR Administration Vitals/I&O/Wt Last Vital Signs Temp 97.6 F 08/04/20 15:30 Pulse 77 08/04/20 15:30 Resp 16 08/04/20 15:30 BP 92/53 08/04/20 15:30 Pulse Ox 98 08/04/20 15:30 08/04/20 08/04/20 08/04/20 06:59 14:59 22:59 Intake Total 720 / 1440 480 / 480 Balance 720 / 1440 480 / 480 Physical Exam Narrative: EXAM NARRATIVE: Week alert oriented. No acute distress Skin is warm and dry. Moist mucous movements. Neck supple. No JVD Lungs clear bilaterally. No respiratory distress Heart S1, S2, regular Abdomen soft, nontender, bowel sounds are present Extremities no edema sinus or calf tenderness bilaterally No focal weakness on neuro evaluation Data : 07/27/20 03:15 07/27/20 03:15 A&P Additional A&P Information Assessment and plan (1) Acute delirium: She is now able to ambulate a little and overall appears mental status does not appear is improving any further. She is adamant about leaving home, but appears to persevere on the safety of her cats and appears not to even acknowledge that there is a concern about her safety. She ignores any attempts to discuss this or redirects to topic of concern - going home and feeding the cats. Her safety does not appear to be an issue that exists in her mind despite multiple prior discussions. Arrangements are underway for guardianship and placement. Appreciate SS updates. She appears to be recovering well from COVID 19 and has not been requiring oxygen (one recorded value appears may have been spurious). Her isolation may now be discontinued. We are confirming with psychiatry if additional supportive care may be continued on psychiatric unit pending above arrangements. Otherwise may continue on medical floor. Continue to encourage adherence with her medicines. Encourage oral intake. Added protein shakes. If she may let us know what foods she likes, perhaps we can request for those. 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 Doing well on RA. DC isolation. Consideration is given to additional supportive care on neuropsychiatric unit to provide a little less restrictive environment, better interaction and possibility of observation while pending guardianship and further living arrangements. This is being discussed w SS and NPU team. -received remdisivir over 2 days, thereafter refused treatment -s/p empiric ceftriaxone course -Vitamin C, zinc -Advair albuterol Status: Acute (3) Metabolic encephalopathy: Multifactorial as above. Status: Acute (4) Recurrent falls: PT OT Status: Acute (5) Essential hypertension: At goal. Continue home blood pressure medications. Status: Acute (6) Diabetes mellitus with neuropathy: Continue glucose monitoring. 60 units Lantus and pre meal insulin 30 units. 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 (7) Mixed hyperlipidemia: Continue home medication Status: Acute (8) Poor social situation: -Both parents were patient's caregivers -Especially after her strokes a year ago and recurrent strokes, she has had decline in her cognitive functioning, physical deconditioning, will need snf placement -There have been many concerns for her poor social situation as outpatient by PCP, has had ER visits for this -Her mother is on hospice, currently at [facility], with COVID-19 -Father has severe dementia, with COVID-19 , unable to be her ortho assistant -she is insistent on returning home, however does not appear to have capacity to fully understand all aspects of her decision of returning home. Status: Acute (9) Multinodular thyroid: Will require outpatient follow-up Status: Acute (10) Acute embolic stroke: Continue Eliquis, statin, aspirin Status: Acute (11) Right humeral fracture: Appears stable on XR 07/23. She had declined a sling. Consider sling symptomatically if she will allow. Follow-up with primary care provider after discharge. Status: Acute (12) DELORIS (acute kidney injury): Avoid nephrotoxins. Status: Acute (13) Hyperkalemia: Resolved. Status: Acute (14) Hyponatremia: improved Status: Acute (15) Bilateral pneumonia: Well on RA Status: Acute (16) Hypomagnesemia: Resolved [place] No significant changes today. Continue current management. We will check her labs in the morning. [facility]ing for [facility] to a jail facility. Discussed with multidisciplinary team and case management. Attestations Medical Necessity Statement*: Waiting for placement to jail facility. Coding Level of Care Code Acute Toe Pounder for [employer]
[2020-08-04 19:48] VITALS: BP 114/64; PULSE 89; RESP 17; TEMP 36.8; O2SAT 97
[2020-08-04 20:13] VITALS: PULSE 88; RESP 18; O2SAT 96
[2020-08-04 20:14] LABS: Glucose Point of Care 423 mg/dL (70-110)
--- NOTE | 2020-08-04 21:54 | PC.NURSE ---
Pt was tearful, resting in bed, stating she wants to go home to her cats. Pt then began sobbing loudly then kicked her bedside table across the room slamming it against the wall. Pt began demanding to go home. Pt began counting on her fingers, 14th, 15th, 16th, 17th, and now. They've kept me here and I want to go home. My cats. And take a bath my home. This nurse and CLIENT SUPPORT MANAGER empathized understanding of frustration and pt educated that she can not be slamming things across the room. Pt began walking around room then turned on the tv. Pt became flustered that the tv remote was not working and that she could not find the channels she wanted. Pt again states, I want to go home to feed my cats and bath and I can make food myself and I can sit and watch tv. Pt began to calm down some, still up in room changing through tv channels. Pt refused medications.
[2020-08-05 03:57] VITALS: BP 93/60; PULSE 47; RESP 17; TEMP 36.7; O2SAT 96
[2020-08-05 08:00] VITALS: BP 106/73; PULSE 95; RESP 17; TEMP 36.6; O2SAT 96
[2020-08-05] MEDS: metoprolol tartrate 25 mg Tablet 37.5 MG PO ×2 (09:07→18:09)
[2020-08-05] MEDS: duloxetine 30 mg Capsule PO (09:08)
[2020-08-05] MEDS: atorvastatin 40 mg Tablet 80 MG PO (09:08)
[2020-08-05] MEDS: clopidogrel 75 mg Tablet PO (09:08)
--- NOTE | 2020-08-05 09:33 | PC.NURSE ---
pt refused some of her morning medications stating she will only take the medications she takes at home. pt refused insulin. pt upset and agitated stating she wants to leave. pt threw her phone at the wall. This nurse explained to pt to not throw items and pt began crying stating she wanted to leave. This nurse brought pt some tissue.
--- NOTE | 2020-08-05 11:54 | PC.NURSE ---
pt refused eliquis and keppra. pt threw them on the floor.
--- NOTE | 2020-08-05 12:51 | PC.NURSE ---
pt refused insulin. pt refused lunch tray. This nurse brought a sandwich as an alternative. pt refused sandwich.
--- NOTE | 2020-08-05 13:59 | PM.PN ---
Subjective Subjective: Interval history: Doing okay. No significant changes in the complaints or in her behavior. No significant events. Medications: Reviewed: Yes Medication Review Details: Generic Name Dose Route Start Last Admin Trade Name Bhaskar PRN Reason Stop Dose Admin Acetaminophen 650 mg 07/22/20 21:48 08/03/20 17:29 Acetaminophen 32 5 Mg Tablet PO 650 mg Q6H PRN Administration Mild/Mod Pain Or Temp >/= 101 Allopurinol 300 mg 07/23/20 09:00 08/04/20 08:59 Allopurinol 300 Mg Tablet PO 300 mg DAILY JAMAR Administration Apixaban 5 mg 07/22/20 22:00 08/04/20 09:03 Apixaban 5 Mg Ta blet PO 5 mg Q12H JAMAR Administration Ascorbic Acid 500 mg 07/23/20 09:00 08/04/20 08:58 Ascorbic Acid 50 0 Mg Tablet PO 500 mg BID JAMAR Administration Atorvastatin Calci um 80 mg 07/23/20 09:00 08/04/20 08:58 Atorvastatin 40 Mg Tablet PO 80 mg DAILY JAMAR Administration Clopidogrel Bisulf ate 75 mg 07/23/20 09:00 08/04/20 08:59 Clopidogrel 75 M g Tablet PO 75 mg DAILY JAMAR Administration Duloxetine HCl 30 mg 08/01/20 11:49 08/04/20 08:58 Duloxetine 30 Mg Capsule PO 30 mg DAILY JAMAR Administration Hydrochlorothiazid e 25 mg 07/23/20 06:00 08/04/20 05:30 Hydrochlorothiaz connie 25 Mg Tablet PO Not Given QAM JAMAR Insulin Aspart 30 unit 07/30/20 18:00 08/04/20 12:17 Insulin Aspart 1 00 Unit/1 Ml SUBCUT Not Given TIDWM JAMAR Insulin Glargine 60 unit 07/29/20 21:00 08/03/20 20:56 Insulin Glargine 100 Units/1 Ml SUBCUT Not Given BEDTIME JAMAR Levetiracetam 500 mg 07/22/20 22:35 08/04/20 11:42 Levetiracetam 50 0 Mg Tablet PO Not Given Q12H JAMAR Lisinopril 10 mg 07/23/20 09:00 08/04/20 08:58 Lisinopril 10 Mg Tablet PO 10 mg DAILY JAMAR Administration Lorazepam 1 mg 07/28/20 10:59 08/01/20 17:40 Lorazepam 1 Mg T ablet PO 1 mg Q6H PRN Administration ANXIETY Metoprolol Tartrat e 37.5 mg 07/23/20 09:00 08/04/20 08:58 Metoprolol Tartr ate 25 Mg Tablet PO 37.5 mg BID JAMAR Administration Pantoprazole Sodiu m 40 mg 07/23/20 09:00 08/04/20 08:[address] 40 Mg Tablet PO Not Given DAILY JAMAR Fluticasone/Salmet eben 1 puff 07/22/20 21:48 08/03/20 08:32 Fluticasone-Salm eterol 100-50 Disk us INHALATION Not Given BID.RESPIRATORY S CH Spironolactone 50 mg 07/23/20 06:00 08/04/20 05:31 Spironolactone 2 5 Mg Tablet PO 50 mg QAM JAMAR Administration Tizanidine HCl 6 mg 07/22/20 22:42 07/23/20 01:09 Tizanidine 4 Mg Tablet PO 6 mg BEDTIME PRN Administration muscle spasticity Zinc Gluconate 50 mg 07/23/20 09:00 08/04/20 08:57 Zinc Gluconate 5 0 Mg Tablet PO 50 mg DAILY JAMAR Administration Vitals/I&O/Wt Last Vital Signs Temp 97.8 F 08/05/20 08:00 Pulse 95 08/05/20 08:00 Resp 17 08/05/20 08:00 BP 106/73 08/05/20 08:00 Pulse Ox 96 08/05/20 08:00 08/04/20 08/05/20 08/05/20 22:59 06:59 14:59 Intake Total 480 / 960 200 / 1160 1680 / 1680 Balance 480 / 960 200 / 1160 1680 / 1680 Physical Exam Narrative: EXAM NARRATIVE: Week alert oriented. No acute distress Skin is warm and dry. Moist mucous movements. Neck supple. No JVD Lungs clear bilaterally. No respiratory distress Heart S1, S2, regular Abdomen soft, nontender, bowel sounds are present Extremities no edema sinus or calf tenderness bilaterally No focal weakness on neuro evaluation Data : 07/27/20 03:15 07/27/20 03:15 A&P Assessment and plan (1) Acute delirium: She is now able to ambulate a little and overall appears mental status does not appear is improving any further. She is adamant about leaving home, but appears to persevere on the safety of her cats and appears not to even acknowledge that there is a concern about her safety. She ignores any attempts to discuss this or redirects to topic of concern - going home and feeding the cats. Her safety does not appear to be an issue that exists in her mind despite multiple prior discussions. Arrangements are underway for guardianship and placement. Appreciate SS updates. She appears to be recovering well from COVID 19 and has not been requiring oxygen (one recorded value appears may have been spurious). Her isolation may now be discontinued. We are confirming with psychiatry if additional supportive care may be continued on psychiatric unit pending above arrangements. Otherwise may continue on medical floor. Continue to encourage adherence with her medicines. Encourage oral intake. Added protein shakes. If she may let us know what foods she likes, perhaps we can request for those. 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 Doing well on RA. DC isolation. Consideration is given to additional supportive care on neuropsychiatric unit to provide a little less restrictive environment, better interaction and possibility of observation while pending guardianship and further living arrangements. This is being discussed w SS and NPU team. -received remdisivir over 2 days, thereafter refused treatment -s/p empiric ceftriaxone course -Vitamin C, zinc -Advair albuterol Status: Acute (3) Metabolic encephalopathy: Multifactorial as above. Status: Acute (4) Recurrent falls: PT OT Status: Acute (5) Essential hypertension: At goal. Continue home blood pressure medications. Status: Acute (6) Diabetes mellitus with neuropathy: Continue glucose monitoring. 60 units Lantus and pre meal insulin 30 units. 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 (7) Mixed hyperlipidemia: Continue home medication Status: Acute (8) Poor social situation: -Both parents were patient's caregivers -Especially after her strokes a year ago and recurrent strokes, she has had decline in her cognitive functioning, physical deconditioning, will need senior living placement -There have been many concerns for her poor social situation as outpatient by PCP, has had ER visits for this -Her mother is on hospice, currently at [facility], with COVID-19 -Father has severe dementia, with COVID-19 , unable to be her glue line operator -she is insistent on returning home, however does not appear to have capacity to fully understand all aspects of her decision of returning home. Status: Acute (9) Multinodular thyroid: Will require outpatient follow-up Status: Acute (10) Acute embolic stroke: Continue Eliquis, statin, aspirin Status: Acute (11) Right humeral fracture: Appears stable on XR 07/23. She had declined a sling. Consider sling symptomatically if she will allow. Follow-up with primary care provider after discharge. Status: Acute (12) DELORIS (acute kidney injury): Avoid nephrotoxins. Status: Acute (13) Hyperkalemia: Resolved. Status: Acute (14) Hyponatremia: improved Status: Acute (15) Bilateral pneumonia: Well on RA Status: Acute (16) Hypomagnesemia: Resolved Status: Acute Additional A&P Information Assessment and plan (1) Acute delirium: She is now able to ambulate a little and overall appears mental status does not appear is improving any further. She is adamant about leaving home, but appears to persevere on the safety of her cats and appears not to even acknowledge that there is a concern about her safety. She ignores any attempts to discuss this or redirects to topic of concern - going home and feeding the cats. Her safety does not appear to be an issue that exists in her mind despite multiple prior discussions. Arrangements are underway for guardianship and placement. Appreciate SS updates. She appears to be recovering well from COVID 19 and has not been requiring oxygen (one recorded value appears may have been spurious). Her isolation may now be discontinued. We are confirming with psychiatry if additional supportive care may be continued on psychiatric unit pending above arrangements. Otherwise may continue on medical floor. Continue to encourage adherence with her medicines. Encourage oral intake. Added protein shakes. If she may let us know what foods she likes, perhaps we can request for those. 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 Doing well on RA. DC isolation. Consideration is given to additional supportive care on neuropsychiatric unit to provide a little less restrictive environment, better interaction and possibility of observation while pending guardianship and further living arrangements. This is being discussed w SS and NPU team. -received remdisivir over 2 days, thereafter refused treatment -s/p empiric ceftriaxone course -Vitamin C, zinc -Advair albuterol Status: Acute (3) Metabolic encephalopathy: Multifactorial as above. Status: Acute (4) Recurrent falls: PT OT Status: Acute (5) Essential hypertension: At goal. Continue home blood pressure medications. Status: Acute (6) Diabetes mellitus with neuropathy: Continue glucose monitoring. 60 units Lantus and pre meal insulin 30 units. 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) use of insulin (7) Mixed hyperlipidemia: Continue home medication Status: Acute (8) Poor social situation: -Both parents were patient's caregivers -Especially after her strokes a year ago and recurrent strokes, she has had decline in her cognitive functioning, physical deconditioning, will need senior living placement -There have been many concerns for her poor social situation as outpatient by PCP, has had ER visits for this -Her mother is on hospice, currently at [facility], with COVID-19 -Father has severe dementia, with COVID-19 , unable to be her glue line operator -she is insistent on returning home, however does not appear to have capacity to fully understand all aspects of her decision of returning home. Status: Acute (9) Multinodular thyroid: Will require outpatient follow-up Status: Acute (10) Acute embolic stroke: Continue Eliquis, statin, aspirin Status: Acute (11) Right humeral fracture: Appears stable on XR 07/23. She had declined a sling. Consider sling symptomatically if she will allow. Follow-up with primary care provider after discharge. Status: Acute (12) DELORIS (acute kidney injury): Avoid nephrotoxins. Status: Acute (13) Hyperkalemia: Resolved. Status: Acute (14) Hyponatremia: improved Status: Acute (15) Bilateral pneumonia: Well on RA Status: Acute (16) Hypomagnesemia: Resolved [place] No significant changes today. Continue current management. We will check her labs in the morning. Waiting for placement to a fpc facility. Discussed with multidisciplinary team and case management. We are still waiting for placement. She is cleared by psychiatry for discharge to a fpc facility. Attestations Medical Necessity Statement*: Waiting for placement. Coding Level of Care Code Acute Food Chemist for [facility] Fwd Diagnoses Acute delirium R41.0 Pneumonia due to COVID-19 virus U07.1; J12.89 Metabolic encephalopathy G93.41 Recurrent falls R29.6 Essential hypertension I10 Diabetes mellitus with neuropathy E11.40; Z79.4 Diabetes mellitus type: type 2 Diabetes mellitus jail insulin use: with terminal manager use Mixed hyperlipidemia E78.2 Poor social situation Z65.9 Multinodular thyroid E04.2 Acute embolic stroke I63.9 Right humeral fracture S42.301A DELORIS (acute kidney injury) N17.9 Hyperkalemia E87.5 Hyponatremia E87.1 Bilateral pneumonia J18.9 Hypomagnesemia E83.42
--- NOTE | 2020-08-05 15:56 | PC.NURSE ---
pt requested for this nurse to call [facility] to check on pts parents. This nurse called [facility] to check on pts parents. This nurse informed pt.
[2020-08-05 16:00] VITALS: BP 97/55; PULSE 60; RESP 17; TEMP 37.1; O2SAT 98
--- NOTE | 2020-08-05 18:10 | PC.NURSE ---
pt took 1800 metoprolol tartrate. pt refused insulin aspart and absorbic acid.
[2020-08-05 19:52] VITALS: BP 105/58; PULSE 63; RESP 18; TEMP 36.9; O2SAT 96
[2020-08-05] MEDS: LORazepam 1 mg Tablet PO (22:12)
[2020-08-05] MEDS: lidocaine 2% viscous 15 ML, aluminum-mag hydrox-simethicon 30 ML, sucralfate oral liq 1 GM PO (22:12)
[2020-08-06] VITALS: BP 103/74; PULSE 70; RESP 16; TEMP 36.5; O2SAT 97
--- NOTE | 2020-08-06 03:29 | PC.NURSE ---
Pt woke up to go to the bathroom, pt was pleasant upon wakening. This nurse told pt that we would need to move rooms since pt was no longer on precautions. Pt was agreeable to walking down to the room and stretching her legs for a bit. All of pt's belongings were transferred as well.
[2020-08-06 04:00] VITALS: BP 119/59; PULSE 59; RESP 18; TEMP 36.3; O2SAT 99
[2020-08-06 08:00] VITALS: BP 110/72; PULSE 81; RESP 18; TEMP 36.6; O2SAT 96
[2020-08-06] MEDS: clopidogrel 75 mg Tablet PO (08:44)
[2020-08-06] MEDS: metoprolol tartrate 25 mg Tablet 37.5 MG PO (08:44)
[2020-08-06] MEDS: lisinopril 10 mg Tablet PO (08:44)
[2020-08-06] MEDS: apixaban 5 mg Tablet PO ×2 (08:45→21:15)
[2020-08-06] MEDS: duloxetine 30 mg Capsule PO (08:45)
[2020-08-06] MEDS: allopurinol 300 mg Tablet PO (08:45)
[2020-08-06] MEDS: atorvastatin 40 mg Tablet 80 MG PO (08:45)
[2020-08-06] MEDS: ascorbic acid 500 mg Tablet PO (08:45)
[2020-08-06] MEDS: zinc gluconate 50 mg Tablet PO (08:46)
[2020-08-06] MEDS: pantoprazole DR 40 mg Tablet PO (08:46)
[2020-08-06] MEDS: levETIRAcetam 500 mg Tablet PO ×2 (08:46→21:16)
--- NOTE | 2020-08-06 10:35 | PC.NURSE ---
Dr. Chavira made aware of patient having minor nose bleeds from patient report of dry air , new orders received for saline nasal spray.
--- NOTE | 2020-08-06 10:36 | PC.NURSE ---
Dr. Chavira aware patient refused IV, reports okay to stop attempting due to only aggravating patient.
[2020-08-06 10:49] LABS: Glucose Point of Care 340 mg/dL (70-110)
[2020-08-06] MEDS: saline nasal spray 44mL Btl 1 SPRAY NASAL (11:09)
[2020-08-06 12:00] VITALS: BP 108/69; BP 110/72; PULSE 58; PULSE 81; RESP 18; TEMP 36.6; O2SAT 98
--- NOTE | 2020-08-06 14:37 | PC.NURSE ---
Patient continuously refusing to shower or change into clean gown provided, patient wearing clothes from home since admission. Patient is wandering in room stating, I want to see the doctor and go home to my cats. No one can take care of my cats like I can.
[2020-08-06] MEDS: LORazepam 1 mg Tablet PO (15:10)
--- NOTE | 2020-08-06 15:10 | PC.NURSE ---
PRN ativan given for patients agitation and irritation.
--- NOTE | 2020-08-06 15:22 | P.PN_ITS ---
Subjective Subjective: Interval history: No significant changes or events. The patient is doing well. Eating. Complaining about having to stay in the hospital. Medications: Reviewed: Yes Medication Review Details: Generic Name Dose Route Start Last Admin Trade Name Freq PRN Reason Stop Dose Admin Acetaminophen 650 mg 07/22/20 21:48 08/03/20 17:29 Acetaminophen 32 5 Mg Tablet PO 650 mg Q6H PRN Administration Mild/Mod Pain Or Temp >/= 101 Allopurinol 300 mg 07/23/20 09:00 08/06/20 08:45 Allopurinol 300 Mg Tablet PO 300 mg DAILY JAMAR Administration Apixaban 5 mg 07/22/20 22:00 08/06/20 08:45 Apixaban 5 Mg Ta blet PO 5 mg Q12H JAMAR Administration Ascorbic Acid 500 mg 07/23/20 09:00 08/06/20 08:45 Ascorbic Acid 50 0 Mg Tablet PO 500 mg BID JAMAR Administration Atorvastatin Calci um 80 mg 07/23/20 09:00 08/06/20 08:45 Atorvastatin 40 Mg Tablet PO 80 mg DAILY JAMAR Administration Clopidogrel Bisulf ate 75 mg 07/23/20 09:00 08/06/20 08:44 Clopidogrel 75 M g Tablet PO 75 mg DAILY JAMAR Administration Duloxetine HCl 30 mg 08/01/20 11:49 08/06/20 08:45 Duloxetine 30 Mg Capsule PO 30 mg DAILY JAMAR Administration Hydrochlorothiazid e 25 mg 07/23/20 06:00 08/06/20 06:40 Hydrochlorothiaz connie 25 Mg Tablet PO Not Given QAM JAMAR Insulin Aspart 30 unit 07/30/20 18:00 08/06/20 11:47 Insulin Aspart 1 00 Unit/1 Ml SUBCUT 30 unit TIDWM JAMAR Administration Insulin Glargine 60 unit 07/29/20 21:00 08/05/20 21:10 Insulin Glargine 100 Units/1 Ml SUBCUT Not Given BEDTIME JAMAR Levetiracetam 500 mg 07/22/20 22:35 08/06/20 08:46 Levetiracetam 50 0 Mg Tablet PO 500 mg Q12H JAMAR Administration Lisinopril 10 mg 07/23/20 09:00 08/06/20 08:44 Lisinopril 10 Mg Tablet PO 10 mg DAILY JAMAR Administration Lorazepam 1 mg 07/28/20 10:59 08/06/20 15:10 Lorazepam 1 Mg T ablet PO 1 mg Q6H PRN Administration ANXIETY Metoprolol Tartrat e 37.5 mg 07/23/20 09:00 08/06/20 08:44 Metoprolol Tartr ate 25 Mg Tablet PO 37.5 mg BID JAMAR Administration Pantoprazole Sodiu m 40 mg 07/23/20 09:00 08/06/20 08:[address] 40 Mg Tablet PO 40 mg DAILY JAMAR Administration Fluticasone/Salmet eben 1 puff 07/22/20 21:48 08/05/20 20:10 Fluticasone-Salm eterol 100-50 Disk us INHALATION Not Given BID.RESPIRATORY S CH Sodium Chloride 1 spray 08/06/20 10:34 08/06/20 11:09 Saline Nasal Spr ay 44ml Btl NASAL 1 spray PRN PRN Administration DRYNESS Spironolactone 50 mg 07/23/20 06:00 08/06/20 06:40 Spironolactone 2 5 Mg Tablet PO Not Given QAM JAMAR Tizanidine HCl 6 mg 07/22/20 22:42 07/23/20 01:09 Tizanidine 4 Mg Tablet PO 6 mg BEDTIME PRN Administration muscle spasticity Zinc Gluconate 50 mg 07/23/20 09:00 08/06/20 08:46 Zinc Gluconate 5 0 Mg Tablet PO 50 mg DAILY JAMAR Administration Vitals/I&O/Wt Last Vital Signs Temp 97.9 F 08/06/20 12:00 Pulse 58 L 08/06/20 12:00 Resp 18 08/06/20 12:00 BP 108/69 08/06/20 12:00 Pulse Ox 98 08/06/20 12:00 08/06/20 08/06/20 08/06/20 06:59 14:59 22:59 Intake Total 960 / 960 Output Total 500 / 500 Balance 460 / 460 Physical Exam Narrative: EXAM NARRATIVE: Awake and alert. No acute distress. Normal speech. No respiratory distress. Skin is warm and dry. Moist mucous membranes. No cyanosis. Data : 07/27/20 03:15 07/27/20 03:15 A&P Assessment and plan (1) Acute delirium: She is now able to ambulate a little and overall appears mental status does not appear is improving any further. She is adamant about leaving home, but appears to persevere on the safety of her cats and appears not to even acknowledge that there is a concern about her safety. She ignores any attempts to discuss this or redirects to topic of concern - going home and feeding the cats. Her safety does not appear to be an issue that exists in her mind despite multiple prior discussions. Arrangements are underway for guardianship and placement. Appreciate SS updates. She appears to be recovering well from COVID 19 and has not been requiring oxygen (one recorded value appears may have been spurious). Her isolation may now be discontinued. We are confirming with psychiatry if additional supportive care may be continued on psychiatric unit pending above arrangements. Otherwise may continue on medical floor. Continue to encourage adherence with her medicines. Encourage oral intake. Added protein shakes. If she may let us know what foods she likes, perhaps we can request for those. 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 Doing well on RA. DC isolation. Consideration is given to additional supportive care on neuropsychiatric unit to provide a little less restrictive environment, better interaction and possibility of observation while pending guardianship and further living arrangements. This is being discussed w SS and NPU team. -received remdisivir over 2 days, thereafter refused treatment -s/p empiric ceftriaxone course -Vitamin C, zinc -Advair albuterol Status: Acute (3) Metabolic encephalopathy: Multifactorial as above. Status: Acute (4) Recurrent falls: PT OT Status: Acute (5) Essential hypertension: At goal. Continue home blood pressure medications. Status: Acute (6) Diabetes mellitus with neuropathy: Continue glucose monitoring. 60 units Lantus and pre meal insulin 30 units. Status: Acute Qualifiers: Diabetes mellitus type: type 2 Diabetes mellitus detention insulin use: with exterminator helper termite use Qualified Code(s): E11.40 - Type 2 diabetes mellitus with diabetic neuropathy, unspecified; Z79.4 - snf (current) use of insulin (7) Mixed hyperlipidemia: Continue home medication Status: Acute (8) Poor social situation: -Both parents were patient's caregivers -Especially after her strokes a year ago and recurrent strokes, she has had decline in her cognitive functioning, physical deconditioning, will need fci placement -There have been many concerns for her poor social situation as outpatient by PCP, has had ER visits for this -Her mother is on hospice, currently at [facility], with COVID-19 -Father has severe dementia, with COVID-19 , 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 Status: Acute (9) Multinodular thyroid: Will require outpatient follow-up Status: Acute (10) Acute embolic stroke: Continue Eliquis, statin, aspirin Status: Acute (11) Right humeral fracture: Appears stable on XR 07/23. She had declined a sling. Consider sling symptomatically if she will allow. Follow-up with primary care provider after discharge. Status: Acute (12) DELORIS (acute kidney injury): Avoid nephrotoxins. Status: Acute (13) Hyperkalemia: Resolved. Status: Acute (14) Hyponatremia: improved Status: Acute (15) Bilateral pneumonia: Well on RA Status: Acute (16) Hypomagnesemia: Resolved Status: Acute Additional A&P Information Assessment and plan (1) Acute delirium: She is now able to ambulate a little and overall appears mental status does not appear is improving any further. She is adamant about leaving home, but appears to persevere on the safety of her cats and appears not to even acknowledge that there is a concern about her safety. She ignores any attempts to discuss this or redirects to topic of concern - going home and feeding the cats. Her safety does not appear to be an issue that exists in her mind despite multiple prior discussions. Arrangements are underway for guardianship and placement. Appreciate SS updates. She appears to be recovering well from COVID 19 and has not been requiring oxygen (one recorded value appears may have been spurious). Her isolation may now be discontinued. We are confirming with psychiatry if additional supportive care may be continued on psychiatric unit pending above arrangements. Otherwise may continue on medical floor. Continue to encourage adherence with her medicines. Encourage oral intake. Added protein shakes. If she may let us know what foods she likes, perhaps we can request for those. 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 Doing well on RA. DC isolation. Consideration is given to additional supportive care on neuropsychiatric unit to provide a little less restrictive environment, better interaction and possibility of observation while pending guardianship and further living arrangements. This is being discussed w SS and NPU team. -received remdisivir over 2 days, thereafter refused treatment -s/p empiric ceftriaxone course -Vitamin C, zinc -Advair albuterol Status: Acute (3) Metabolic encephalopathy: Multifactorial as above. Status: Acute (4) Recurrent falls: PT OT Status: Acute (5) Essential hypertension: At goal. Continue home blood pressure medications. Status: Acute (6) Diabetes mellitus with neuropathy: Continue glucose monitoring. 60 units Lantus and pre meal insulin 30 units. Status: Acute Qualifiers: Diabetes mellitus type: type 2 Diabetes mellitus exterminator helper termite insulin use: with exterminator helper termite use Qualified Code(s): E11.40 - Type 2 diabetes mellitus with diabetic neuropathy, unspecified; Z79.4 - exterminator helper termite (current) use of insulin (7) Mixed hyperlipidemia: Continue home medication Status: Acute (8) Poor social situation: -Both parents were patient's caregivers -Especially after her strokes a year ago and recurrent strokes, she has had decline in her cognitive functioning, physical deconditioning, will need fci placement -There have been many concerns for her poor social situation as outpatient by PCP, has had ER visits for this -Her mother is on hospice, currently at [facility], with COVID-19 -Father has severe dementia, with COVID-19 , 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 Status: Acute (9) Multinodular thyroid: Will require outpatient follow-up Status: Acute (10) Acute embolic stroke: Continue Eliquis, statin, aspirin Status: Acute (11) Right humeral fracture: Appears stable on XR 07/23. She had declined a sling. Consider sling symptomatically if she will allow. Follow-up with primary care provider after discharge. Status: Acute (12) DELORIS (acute kidney injury): Avoid nephrotoxins. Status: Acute (13) Hyperkalemia: Resolved. Status: Acute (14) Hyponatremia: improved Status: Acute (15) Bilateral pneumonia: Well on RA Status: Acute (16) Hypomagnesemia: Resolved [place] No significant changes today. Continue current management. We will check her labs in the morning. [facility]ing for [facility] to a prison facility. Discussed with multidisciplinary team and case management. We are still waiting for placement. She is cleared by psychiatry for discharge to a prison facility. Attestations Medical Necessity Statement*: Waiting for placement. Coding Level of Care Code Acute Public Events Facilities Rental Manager for [facility] Fwd Diagnoses Acute delirium R41.0 Pneumonia due to COVID-19 virus U07.1; J12.89 Metabolic encephalopathy G93.41 Recurrent falls R29.6 Essential hypertension I10 Diabetes mellitus with neuropathy E11.40; Z79.4 Diabetes mellitus type: type 2 Diabetes mellitus exterminator helper termite insulin use: with detention use Mixed hyperlipidemia E78.2 Poor social situation Z65.9 Multinodular thyroid E04.2 Acute embolic stroke I63.9 Right humeral fracture S42.301A DELORIS (acute kidney injury) N17.9 Hyperkalemia E87.5 Hyponatremia E87.1 Bilateral pneumonia J18.9 Hypomagnesemia E83.42
[2020-08-06 16:00] VITALS: BP 102/52; BP 108/69; PULSE 58; PULSE 59; RESP 18; TEMP 36.6; TEMP 36.8; O2SAT 98
[2020-08-06 16:49] LABS: Glucose Point of Care 214 mg/dL (70-110)
[2020-08-06 19:23] VITALS: BP 104/65; PULSE 76; RESP 18; TEMP 37.1; O2SAT 99
[2020-08-06 20:25] LABS: Glucose Point of Care 195 mg/dL (70-110)
[2020-08-06] MEDS: insulin glargine 100 units/1 mL 60 UNIT SUBCUT (21:16)
[2020-08-07] VITALS: BP 111/64; PULSE 69; RESP 18; TEMP 36.6; O2SAT 95
[2020-08-07] MEDS: saline nasal spray 44mL Btl 1 SPRAY NASAL (01:45)
--- NOTE | 2020-08-07 01:45 | PC.NURSE ---
Patient refused to give the nurse the PRN saline nasal spray. PT became agitated and put the nasal spray in her pocket and said Its fine for the head stuff makes me crazy and I have several at home anyways The patient became more irritated and raised her voice when the nurse asked for the nasal spray a second time. Nurse decided to leave saline nasal spray with the patient until patient can calm down.
--- NOTE | 2020-08-07 06:54 | PC.NURSE ---
Patient refused 0600 blood glucose check and 0400 vital signs, refused HCTZ and Spironolactone.
[2020-08-07 08:00] VITALS: BP 104/67; PULSE 88; RESP 18; TEMP 36.6; O2SAT 97
[2020-08-07] MEDS: allopurinol 300 mg Tablet PO (08:01)
[2020-08-07] MEDS: pantoprazole DR 40 mg Tablet PO (08:01)
[2020-08-07] MEDS: apixaban 5 mg Tablet PO (08:01)
[2020-08-07] MEDS: zinc gluconate 50 mg Tablet PO (08:01)
[2020-08-07] MEDS: duloxetine 30 mg Capsule PO (08:01)
[2020-08-07] MEDS: atorvastatin 40 mg Tablet 80 MG PO (08:01)
[2020-08-07] MEDS: clopidogrel 75 mg Tablet PO (08:01)
[2020-08-07] MEDS: levETIRAcetam 500 mg Tablet PO (08:01)
[2020-08-07] MEDS: ascorbic acid 500 mg Tablet PO (08:02)
--- NOTE | 2020-08-07 10:21 | PC.NURSE ---
Patient refused lab work this morning, Dr. Chavira notified.
[2020-08-07 11:39] LABS: Glucose Point of Care 222 mg/dL (70-110)
[2020-08-07 12:00] VITALS: BP 119/76; PULSE 99; RESP 18; TEMP 36.7; O2SAT 96
[2020-08-07 15:48] VITALS: BP 95/57; PULSE 88; RESP 16; TEMP 36.9; O2SAT 97
[2020-08-07 16:00] VITALS: BP 95/57; PULSE 88; RESP 16; TEMP 36.9
--- NOTE | 2020-08-07 17:26 | PC.NURSE ---
This staff member tried to take Pt's accu check. Pt refused, primary nurse notified.
--- NOTE | 2020-08-07 17:50 | PM.PN ---
Subjective Subjective: Interval history: No significant changes or events. The patient is doing well. Eating. Complaining about having to stay in the hospital. Refusing labs and occasionally vital signs. Medications: Reviewed: Yes Vitals/I&O/Wt Last Vital Signs Temp 98.4 F 08/07/20 15:48 Pulse 88 08/07/20 15:48 Resp 16 08/07/20 15:48 BP 95/57 08/07/20 15:48 Pulse Ox 97 08/07/20 15:48 08/07/20 08/07/20 08/07/20 06:59 14:59 22:59 Intake Total 240 / 240 Balance 240 / 240 Physical Exam Narrative: EXAM NARRATIVE: Awake and alert. No acute distress. Normal speech. No respiratory distress. Skin is warm and dry. Moist mucous membranes. No cyanosis. Data : 07/27/20 03:15 07/27/20 03:15 A&P Assessment and plan (1) Acute delirium: She is now able to ambulate a little and overall appears mental status does not appear is improving any further. She is adamant about leaving home, but appears to persevere on the safety of her cats and appears not to even acknowledge that there is a concern about her safety. She ignores any attempts to discuss this or redirects to topic of concern - going home and feeding the cats. Her safety does not appear to be an issue that exists in her mind despite multiple prior discussions. Arrangements are underway for guardianship and placement. Appreciate SS updates. She appears to be recovering well from COVID 19 and has not been requiring oxygen (one recorded value appears may have been spurious). Her isolation may now be discontinued. We are confirming with psychiatry if additional supportive care may be continued on psychiatric unit pending above arrangements. Otherwise may continue on medical floor. Continue to encourage adherence with her medicines. Encourage oral intake. Added protein shakes. If she may let us know what foods she likes, perhaps we can request for those. 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 Doing well on RA. DC isolation. Consideration is given to additional supportive care on neuropsychiatric unit to provide a little less restrictive environment, better interaction and possibility of observation while pending guardianship and further living arrangements. This is being discussed w SS and NPU team. -received remdisivir over 2 days, thereafter refused treatment -s/p empiric ceftriaxone course -Vitamin C, zinc -Advair albuterol Status: Acute (3) Metabolic encephalopathy: Multifactorial as above. Status: Acute (4) Recurrent falls: PT OT Status: Acute (5) Essential hypertension: At goal. Continue home blood pressure medications. Status: Acute (6) Diabetes mellitus with neuropathy: Continue glucose monitoring. 60 units Lantus and pre meal insulin 30 units. Status: Acute Qualifiers: Diabetes mellitus type: type 2 Diabetes mellitus buttermaker continuous churn insulin use: with buttermaker continuous churn use Qualified Code(s): E11.40 - Type 2 diabetes mellitus with diabetic neuropathy, unspecified; Z79.4 - termite control technician (current) use of insulin (7) Mixed hyperlipidemia: Continue home medication Status: Acute (8) Poor social situation: -Both parents were patient's caregivers -Especially after her strokes a year ago and recurrent strokes, she has had decline in her cognitive functioning, physical deconditioning, will need halfway placement -There have been many concerns for her poor social situation as outpatient by PCP, has had ER visits for this -Her mother is on hospice, currently at [facility], with COVID-19 -Father has severe dementia, with COVID-19 , 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 Status: Acute (9) Multinodular thyroid: Will require outpatient follow-up Status: Acute (10) Acute embolic stroke: Continue Eliquis, statin, aspirin Status: Acute (11) Right humeral fracture: Appears stable on XR 07/23. She had declined a sling. Consider sling symptomatically if she will allow. Follow-up with primary care provider after discharge. Status: Acute (12) DELORIS (acute kidney injury): Avoid nephrotoxins. Status: Acute (13) Hyperkalemia: Resolved. Status: Acute (14) Hyponatremia: improved Status: Acute (15) Bilateral pneumonia: Well on RA Status: Acute (16) Hypomagnesemia: Resolved Status: Acute Additional A&P Information Assessment and plan (1) Acute delirium: She is now able to ambulate a little and overall appears mental status does not appear is improving any further. She is adamant about leaving home, but appears to persevere on the safety of her cats and appears not to even acknowledge that there is a concern about her safety. She ignores any attempts to discuss this or redirects to topic of concern - going home and feeding the cats. Her safety does not appear to be an issue that exists in her mind despite multiple prior discussions. Arrangements are underway for guardianship and placement. Appreciate SS updates. She appears to be recovering well from COVID 19 and has not been requiring oxygen (one recorded value appears may have been spurious). Her isolation may now be discontinued. We are confirming with psychiatry if additional supportive care may be continued on psychiatric unit pending above arrangements. Otherwise may continue on medical floor. Continue to encourage adherence with her medicines. Encourage oral intake. Added protein shakes. If she may let us know what foods she likes, perhaps we can request for those. 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 Doing well on RA. DC isolation. Consideration is given to additional supportive care on neuropsychiatric unit to provide a little less restrictive environment, better interaction and possibility of observation while pending guardianship and further living arrangements. This is being discussed w SS and NPU team. -received remdisivir over 2 days, thereafter refused treatment -s/p empiric ceftriaxone course -Vitamin C, zinc -Advair albuterol Status: Acute (3) Metabolic encephalopathy: Multifactorial as above. Status: Acute (4) Recurrent falls: PT OT Status: Acute (5) Essential hypertension: At goal. Continue home blood pressure medications. Status: Acute (6) Diabetes mellitus with neuropathy: Continue glucose monitoring. 60 units Lantus and pre meal insulin 30 units. Status: Acute Qualifiers: Diabetes mellitus type: type 2 Diabetes mellitus buttermaker continuous churn insulin use: with buttermaker continuous churn use Qualified Code(s): E11.40 - Type 2 diabetes mellitus with diabetic neuropathy, unspecified; Z79.4 - termite control technician (current) use of insulin (7) Mixed hyperlipidemia: Continue home medication Status: Acute (8) Poor social situation: -Both parents were patient's caregivers -Especially after her strokes a year ago and recurrent strokes, she has had decline in her cognitive functioning, physical deconditioning, will need halfway placement -There have been many concerns for her poor social situation as outpatient by PCP, has had ER visits for this -Her mother is on hospice, currently at [facility], with COVID-19 -Father has severe dementia, with COVID-19 , 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 Status: Acute (9) Multinodular thyroid: Will require outpatient follow-up Status: Acute (10) Acute embolic stroke: Continue Eliquis, statin, aspirin Status: Acute (11) Right humeral fracture: Appears stable on XR 07/23. She had declined a sling. Consider sling symptomatically if she will allow. Follow-up with primary care provider after discharge. Status: Acute (12) DELORIS (acute kidney injury): Avoid nephrotoxins. Status: Acute (13) Hyperkalemia: Resolved. Status: Acute (14) Hyponatremia: improved Status: Acute (15) Bilateral pneumonia: Well on RA Status: Acute (16) Hypomagnesemia: Resolved [place] No significant changes today. Continue current management. We will check her labs in the morning. Waiting for placement to a group home facility. Discussed with multidisciplinary team and case management. We are still waiting for court date and hearing regarding guardianship. According to the psychiatric evaluation patient lacks clear capacity. [facility] approved. 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
--- NOTE | 2020-08-07 18:09 | PC.NURSE ---
patient refused fingerstick and scheduled medications.
[2020-08-07 19:49] VITALS: BP 100/67; PULSE 88; RESP 18; TEMP 36.9; O2SAT 94
[2020-08-08] VITALS (8 sets, daily range): BP systolic 96–119; BP diastolic 62–77; PULSE 51–93; RESP 16–18; TEMP 36.5–37; O2SAT 97–98
--- NOTE | 2020-08-08 03:44 | PC.NURSE ---
Patient refused medications and sugar checks.
[2020-08-08] MEDS: zinc gluconate 50 mg Tablet PO (08:46)
[2020-08-08] MEDS: duloxetine 30 mg Capsule PO (08:46)
[2020-08-08] MEDS: pantoprazole DR 40 mg Tablet PO (08:46)
[2020-08-08] MEDS: atorvastatin 40 mg Tablet 80 MG PO (08:46)
[2020-08-08] MEDS: allopurinol 300 mg Tablet PO (08:46)
[2020-08-08] MEDS: metoprolol tartrate 25 mg Tablet 37.5 MG PO (08:47)
[2020-08-08] MEDS: clopidogrel 75 mg Tablet PO (08:47)
[2020-08-08] MEDS: ascorbic acid 500 mg Tablet PO (08:47)
[2020-08-08] MEDS: saline nasal spray 44mL Btl 1 SPRAY NASAL (08:49)
[2020-08-08 11:22] LABS: Glucose Point of Care 415 mg/dL (70-110)
--- NOTE | 2020-08-08 14:56 | PM.PN ---
Subjective Subjective: Interval history: Refusing Accu-Cheks and insulin. Refusing blood tests and frequently vital signs. Asking to go home. No other events. No uncontrolled pain. No shortness of breath. No nausea or vomiting. Medications: Reviewed: Yes Medication Review Details: Generic Name Dose Route Start Last Admin Trade Name Freq PRN Reason Stop Dose Admin Acetaminophen 650 mg 07/22/20 21:48 08/03/20 17:29 Acetaminophen 32 5 Mg Tablet PO 650 mg Q6H PRN Administration Mild/Mod Pain Or Temp >/= 101 Allopurinol 300 mg 07/23/20 09:00 08/08/20 08:46 Allopurinol 300 Mg Tablet PO 300 mg DAILY JAMAR Administration Apixaban 5 mg 07/22/20 22:00 08/08/20 09:23 Apixaban 5 Mg Ta blet PO Not Given Q12H [facility] Ascorbic Acid 500 mg 07/23/20 09:00 08/08/20 08:47 Ascorbic Acid 50 0 Mg Tablet PO 500 mg BID JAMAR Administration Atorvastatin Calci um 80 mg 07/23/20 09:00 08/08/20 08:46 Atorvastatin 40 Mg Tablet PO 80 mg DAILY JAMAR Administration Clopidogrel Bisulf ate 75 mg 07/23/20 09:00 08/08/20 08:47 Clopidogrel 75 M g Tablet PO 75 mg DAILY JAMAR Administration Duloxetine HCl 30 mg 08/01/20 11:49 08/08/20 08:46 Duloxetine 30 Mg Capsule PO 30 mg DAILY JAMAR Administration Hydrochlorothiazid e 25 mg 07/23/20 06:00 08/08/20 06:28 Hydrochlorothiaz connie 25 Mg Tablet PO Not Given QAM [facility] Insulin Aspart 30 unit 07/30/20 18:00 08/08/20 11:26 Insulin Aspart 1 00 Unit/1 Ml SUBCUT 30 unit TIDWM [facility] Administration Insulin Glargine 60 unit 07/29/20 21:00 08/07/20 21:32 Insulin Glargine 100 Units/1 Ml SUBCUT Not Given BEDTIME [facility] Levetiracetam 500 mg 07/22/20 22:35 08/08/20 10:00 Levetiracetam 50 0 Mg Tablet PO Not Given Q12H [facility] Lisinopril 10 mg 07/23/20 09:00 08/08/20 09:15 Lisinopril 10 Mg Tablet PO Not Given DAILY [facility] Metoprolol Tartrat e 37.5 mg 07/23/20 09:00 08/08/20 08:47 Metoprolol Tartr ate 25 Mg Tablet PO 37.5 mg BID JAMAR Administration Pantoprazole Sodiu m 40 mg 07/23/20 09:00 08/08/20 08:[address] 40 Mg Tablet PO 40 mg DAILY JAMAR Administration Fluticasone/Salmet eben 1 puff 07/22/20 21:48 08/05/20 20:10 Fluticasone-Salm eterol 100-50 Disk us INHALATION Not Given BID.RESPIRATORY S [facility] Sodium Chloride 1 spray 08/06/20 10:34 08/08/20 08:49 Saline Nasal Spr ay 44ml Btl NASAL 1 spray PRN PRN Administration DRYNESS Spironolactone 50 mg 07/23/20 06:00 08/08/20 06:28 Spironolactone 2 5 Mg Tablet PO Not Given QAM JAMAR Tizanidine HCl 6 mg 07/22/20 22:42 07/23/20 01:09 Tizanidine 4 Mg Tablet PO 6 mg BEDTIME PRN Administration muscle spasticity Zinc Gluconate 50 mg 07/23/20 09:00 08/08/20 08:46 Zinc Gluconate 5 0 Mg Tablet PO 50 mg DAILY JAMAR Administration Vitals/I&O/Wt Last Vital Signs Temp 97.7 F 08/08/20 12:00 Pulse 51 L 08/08/20 12:00 Resp 18 08/08/20 12:00 BP 100/62 08/08/20 12:00 Pulse Ox 98 08/08/20 11:49 08/07/20 08/08/20 08/08/20 22:59 06:59 14:59 Intake Total 480 / 480 Balance 480 / 480 Physical Exam Narrative: EXAM NARRATIVE: Awake and alert. No acute distress. Normal speech. No respiratory distress. Skin is warm and dry. Moist mucous membranes. No cyanosis. Data : 07/27/20 03:15 07/27/20 03:15 A&P Assessment and plan (1) Acute delirium: She is now able to ambulate a little and overall appears mental status does not appear is improving any further. She is adamant about leaving home, but appears to persevere on the safety of her cats and appears not to even acknowledge that there is a concern about her safety. She ignores any attempts to discuss this or redirects to topic of concern - going home and feeding the cats. Her safety does not appear to be an issue that exists in her mind despite multiple prior discussions. Arrangements are underway for guardianship and placement. Appreciate SS updates. She appears to be recovering well from COVID 19 and has not been requiring oxygen (one recorded value appears may have been spurious). Her isolation may now be discontinued. We are confirming with psychiatry if additional supportive care may be continued on psychiatric unit pending above arrangements. Otherwise may continue on medical floor. Continue to encourage adherence with her medicines. Encourage oral intake. Added protein shakes. If she may let us know what foods she likes, perhaps we can request for those. 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 Doing well on RA. DC isolation. Consideration is given to additional supportive care on neuropsychiatric unit to provide a little less restrictive environment, better interaction and possibility of observation while pending guardianship and further living arrangements. This is being discussed w SS and NPU team. -received remdisivir over 2 days, thereafter refused treatment -s/p empiric ceftriaxone course -Vitamin C, zinc -Advair albuterol Status: Acute (3) Metabolic encephalopathy: Multifactorial as above. Status: Acute (4) Recurrent falls: PT OT Status: Acute (5) Essential hypertension: At goal. Continue home blood pressure medications. Status: Acute (6) Diabetes mellitus with neuropathy: Continue glucose monitoring. 60 units Lantus and pre meal insulin 30 units. 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 (7) Mixed hyperlipidemia: Continue home medication Status: Acute (8) Poor social situation: -Both parents were patient's caregivers -Especially after her strokes a year ago and recurrent strokes, she has had decline in her cognitive functioning, physical deconditioning, will need group home placement -There have been many concerns for her poor social situation as outpatient by PCP, has had ER visits for this -Her mother is on hospice, currently at [facility], with COVID-19 -Father has severe dementia, with COVID-19 , unable to be her pantograph transferrer -she is insistent on returning home, however does not appear to have capacity to fully understand all aspects of her decision of returning home. Status: Acute (9) Multinodular thyroid: Will require outpatient follow-up Status: Acute (10) Acute embolic stroke: Continue Eliquis, statin, aspirin Status: Acute (11) Right humeral fracture: Appears stable on XR 07/23. She had declined a sling. Consider sling symptomatically if she will allow. Follow-up with primary care provider after discharge. Status: Acute (12) DELORIS (acute kidney injury): Avoid nephrotoxins. Status: Acute (13) Hyperkalemia: Resolved. Status: Acute (14) Hyponatremia: improved Status: Acute (15) Bilateral pneumonia: Well on RA Status: Acute (16) Hypomagnesemia: Resolved Status: Acute Additional A&P Information Assessment and plan (1) Acute delirium: She is now able to ambulate a little and overall appears mental status does not appear is improving any further. She is adamant about leaving home, but appears to persevere on the safety of her cats and appears not to even acknowledge that there is a concern about her safety. She ignores any attempts to discuss this or redirects to topic of concern - going home and feeding the cats. Her safety does not appear to be an issue that exists in her mind despite multiple prior discussions. Arrangements are underway for guardianship and placement. Appreciate SS updates. She appears to be recovering well from COVID 19 and has not been requiring oxygen (one recorded value appears may have been spurious). Her isolation may now be discontinued. We are confirming with psychiatry if additional supportive care may be continued on psychiatric unit pending above arrangements. Otherwise may continue on medical floor. Continue to encourage adherence with her medicines. Encourage oral intake. Added protein shakes. If she may let us know what foods she likes, perhaps we can request for those. 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 Doing well on RA. DC isolation. Consideration is given to additional supportive care on neuropsychiatric unit to provide a little less restrictive environment, better interaction and possibility of observation while pending guardianship and further living arrangements. This is being discussed w SS and NPU team. -received remdisivir over 2 days, thereafter refused treatment -s/p empiric ceftriaxone course -Vitamin C, zinc -Advair albuterol Status: Acute (3) Metabolic encephalopathy: Multifactorial as above. Status: Acute (4) Recurrent falls: PT OT Status: Acute (5) Essential hypertension: At goal. Continue home blood pressure medications. Status: Acute (6) Diabetes mellitus with neuropathy: Continue glucose monitoring. 60 units Lantus and pre meal insulin 30 units. Status: Acute Qualifiers: Diabetes mellitus type: type 2 Diabetes mellitus manager terminal insulin use: with [facility] use Qualified Code(s): E11.40 - Type 2 diabetes mellitus with diabetic neuropathy, unspecified; Z79.4 - [facility] (current) use of insulin (7) Mixed hyperlipidemia: Continue home medication Status: Acute (8) Poor social situation: -Both parents were patient's caregivers -Especially after her strokes a year ago and recurrent strokes, she has had decline in her cognitive functioning, physical deconditioning, will need group home placement -There have been many concerns for her poor social situation as outpatient by PCP, has had ER visits for this -Her mother is on hospice, currently at [facility], with COVID-19 -Father has severe dementia, with COVID-19 , unable to be her pantograph transferrer -she is insistent on returning home, however does not appear to have capacity to fully understand all aspects of her decision of returning home. Status: Acute (9) Multinodular thyroid: Will require outpatient follow-up Status: Acute (10) Acute embolic stroke: Continue Eliquis, statin, aspirin Status: Acute (11) Right humeral fracture: Appears stable on XR 07/23. She had declined a sling. Consider sling symptomatically if she will allow. Follow-up with primary care provider after discharge. Status: Acute (12) DELORIS (acute kidney injury): Avoid nephrotoxins. Status: Acute (13) Hyperkalemia: Resolved. Status: Acute (14) Hyponatremia: improved Status: Acute (15) Bilateral pneumonia: Well on RA Status: Acute (16) Hypomagnesemia: Resolved [place] No significant changes today. Continue current management. We will check her labs in the morning. Waiting for placement to a snf facility. Discussed with multidisciplinary team and case management. We are still waiting for court date and hearing regarding guardianship. According to the psychiatric evaluation patient lacks clear capacity. [facility] facility is approved. 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 [facility] Diagnoses Acute delirium R41.0 Pneumonia due to COVID-19 virus U07.1; J12.89 Metabolic encephalopathy G93.41 Recurrent falls R29.6 Essential hypertension I10 Diabetes mellitus with neuropathy E11.40; Z79.4 Diabetes mellitus type: type 2 Diabetes mellitus [facility] insulin use: with [facility] use Mixed hyperlipidemia E78.2 Poor social situation Z65.9 Multinodular thyroid E04.2 Acute embolic stroke I63.9 Right humeral fracture S42.301A DELORIS (acute kidney injury) N17.9 Hyperkalemia E87.5 Hyponatremia E87.1 Bilateral pneumonia J18.9 Hypomagnesemia E83.42
[2020-08-08] MEDS: insulin glargine 100 units/1 mL 60 UNIT SUBCUT (20:58)
[2020-08-09] VITALS (9 sets, daily range): BP systolic 90–119; BP diastolic 50–75; PULSE 60–83; RESP 15–19; TEMP 36.4–37.1; O2SAT 96–98
[2020-08-09] MEDS: spironolactone 25 mg Tablet 50 MG PO (06:06)
[2020-08-09] MEDS: hydroCHLOROthiazide 25 mg Tablet PO (06:06)
[2020-08-09] MEDS: atorvastatin 40 mg Tablet 80 MG PO (10:32)
[2020-08-09] MEDS: duloxetine 30 mg Capsule PO (10:33)
[2020-08-09] MEDS: clopidogrel 75 mg Tablet PO (10:33)
[2020-08-09] MEDS: allopurinol 300 mg Tablet PO (10:33)
[2020-08-09] MEDS: metoprolol tartrate 25 mg Tablet 37.5 MG PO ×2 (10:34→18:18)
[2020-08-09] MEDS: lisinopril 10 mg Tablet PO (10:34)
--- NOTE | 2020-08-09 15:41 | PM.PN ---
Subjective Subjective: Interval history: No significant changes or events. Refusing Accu-Cheks and insulin. Refusing blood tests and frequently vital signs. Asking to go home. No other events. No uncontrolled pain. No shortness of breath. No nausea or vomiting. Medications: Reviewed: Yes Medication Review Details: Generic Name Dose Route Start Last Admin Trade Name Freq PRN Reason Stop Dose Admin Acetaminophen 650 mg 07/22/20 21:48 08/03/20 17:29 Acetaminophen 32 5 Mg Tablet PO 650 mg Q6H PRN Administration Mild/Mod Pain Or Temp >/= 101 Allopurinol 300 mg 07/23/20 09:00 08/09/20 10:33 Allopurinol 300 Mg Tablet PO 300 mg DAILY JAMAR Administration Apixaban 5 mg 07/22/20 22:00 08/09/20 10:46 Apixaban 5 Mg Ta blet PO Not Given Q12H [facility] Ascorbic Acid 500 mg 07/23/20 09:00 08/09/20 10:45 Ascorbic Acid 50 0 Mg Tablet PO Not Given BID [facility] Atorvastatin Calci um 80 mg 07/23/20 09:00 08/09/20 10:32 Atorvastatin 40 Mg Tablet PO 80 mg DAILY JAMAR Administration Clopidogrel Bisulf ate 75 mg 07/23/20 09:00 08/09/20 10:33 Clopidogrel 75 M g Tablet PO 75 mg DAILY JAMAR Administration Duloxetine HCl 30 mg 08/01/20 11:49 08/09/20 10:33 Duloxetine 30 Mg Capsule PO 30 mg DAILY JAMAR Administration Hydrochlorothiazid e 25 mg 07/23/20 06:00 08/09/20 06:06 Hydrochlorothiaz connie 25 Mg Tablet PO 25 mg QAM [facility] Administration Insulin Aspart 30 unit 07/30/20 18:00 08/09/20 14:03 Insulin Aspart 1 00 Unit/1 Ml SUBCUT 30 unit TIDWM JAMAR Administration Insulin Glargine 60 unit 07/29/20 21:00 08/08/20 20:58 Insulin Glargine 100 Units/1 Ml SUBCUT 60 unit BEDTIME JAMAR Administration Levetiracetam 500 mg 07/22/20 22:35 08/09/20 10:46 Levetiracetam 50 0 Mg Tablet PO Not Given Q12H [facility] Lisinopril 10 mg 07/23/20 09:00 08/09/20 10:34 Lisinopril 10 Mg Tablet PO 10 mg DAILY JAMAR Administration Metoprolol Tartrat e 37.5 mg 07/23/20 09:00 08/09/20 10:34 Metoprolol Tartr ate 25 Mg Tablet PO 37.5 mg BID JAMAR Administration Pantoprazole Sodiu m 40 mg 07/23/20 09:00 08/09/20 10:[address] 40 Mg Tablet PO Not Given DAILY JAMAR Fluticasone/Salmet eben 1 puff 07/22/20 21:48 08/05/20 20:10 Fluticasone-Salm eterol 100-50 Disk us INHALATION Not Given BID.RESPIRATORY S CH Sodium Chloride 1 spray 08/06/20 10:34 08/08/20 08:49 Saline Nasal Spr ay 44ml Btl NASAL 1 spray PRN PRN Administration DRYNESS Spironolactone 50 mg 07/23/20 06:00 08/09/20 06:06 Spironolactone 2 5 Mg Tablet PO 50 mg QAM JAMAR Administration Tizanidine HCl 6 mg 07/22/20 22:42 07/23/20 01:09 Tizanidine 4 Mg Tablet PO 6 mg BEDTIME PRN Administration muscle spasticity Zinc Gluconate 50 mg 07/23/20 09:00 08/09/20 10:45 Zinc Gluconate 5 0 Mg Tablet PO Not Given DAILY JAMAR Vitals/I&O/Wt Last Vital Signs Temp 97.8 F 08/09/20 14:53 Pulse 73 08/09/20 14:53 Resp 18 08/09/20 14:53 BP 90/50 08/09/20 14:53 Pulse Ox 97 08/09/20 14:53 08/09/20 08/09/20 08/09/20 06:59 14:59 22:59 Intake Total 280 / 280 Balance 280 / 280 Physical Exam Narrative: EXAM NARRATIVE: Alert oriented No acute distress Skin is warm and dry Moist mucous membranes Neck supple no JVD Lungs clear bilaterally no respiratory distress Heart S1, S2, regular Abdomen soft, nontender, bowel sounds are present Extremities no cyanosis no calf tenderness bilaterally No focal weakness Data : 07/27/20 03:15 07/27/20 03:15 A&P Assessment and plan (1) Acute delirium: She is now able to ambulate a little and overall appears mental status does not appear is improving any further. She is adamant about leaving home, but appears to persevere on the safety of her cats and appears not to even acknowledge that there is a concern about her safety. She ignores any attempts to discuss this or redirects to topic of concern - going home and feeding the cats. Her safety does not appear to be an issue that exists in her mind despite multiple prior discussions. Arrangements are underway for guardianship and placement. Appreciate SS updates. She appears to be recovering well from COVID 19 and has not been requiring oxygen (one recorded value appears may have been spurious). Her isolation may now be discontinued. We are confirming with psychiatry if additional supportive care may be continued on psychiatric unit pending above arrangements. Otherwise may continue on medical floor. Continue to encourage adherence with her medicines. Encourage oral intake. Added protein shakes. If she may let us know what foods she likes, perhaps we can request for those. 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 Doing well on RA. DC isolation. Consideration is given to additional supportive care on neuropsychiatric unit to provide a little less restrictive environment, better interaction and possibility of observation while pending guardianship and further living arrangements. This is being discussed w SS and NPU team. -received remdisivir over 2 days, thereafter refused treatment -s/p empiric ceftriaxone course -Vitamin C, zinc -Advair albuterol Status: Acute (3) Metabolic encephalopathy: Multifactorial as above. Status: Acute (4) Recurrent falls: PT OT Status: Acute (5) Essential hypertension: At goal. Continue home blood pressure medications. Status: Acute (6) Diabetes mellitus with neuropathy: Continue glucose monitoring. 60 units Lantus and pre meal insulin 30 units. Status: Acute Qualifiers: Diabetes mellitus type: type 2 Diabetes mellitus rn long term care insulin use: with nursing home use Qualified Code(s): E11.40 - Type 2 diabetes mellitus with diabetic neuropathy, unspecified; Z79.4 - prison (current) use of insulin (7) Mixed hyperlipidemia: Continue home medication Status: Acute (8) Poor social situation: -Both parents were patient's caregivers -Especially after her strokes a year ago and recurrent strokes, she has had decline in her cognitive functioning, physical deconditioning, will need shelter placement -There have been many concerns for her poor social situation as outpatient by PCP, has had ER visits for this -Her mother is on hospice, currently at [facility], with COVID-19 -Father has severe dementia, with COVID-19 , unable to be her gallery director -she is insistent on returning home, however does not appear to have capacity to fully understand all aspects of her decision of returning home. Status: Acute (9) Multinodular thyroid: Will require outpatient follow-up Status: Acute (10) Acute embolic stroke: Continue Eliquis, statin, aspirin Status: Acute (11) Right humeral fracture: Appears stable on XR 07/23. She had declined a sling. Consider sling symptomatically if she will allow. Follow-up with primary care provider after discharge. Status: Acute (12) DELORIS (acute kidney injury): Avoid nephrotoxins. Status: Acute (13) Hyperkalemia: Resolved. Status: Acute (14) Hyponatremia: improved Status: Acute (15) Bilateral pneumonia: Well on RA Status: Acute (16) Hypomagnesemia: Resolved Status: Acute Additional A&P Information Assessment and plan (1) Acute delirium: She is now able to ambulate a little and overall appears mental status does not appear is improving any further. She is adamant about leaving home, but appears to persevere on the safety of her cats and appears not to even acknowledge that there is a concern about her safety. She ignores any attempts to discuss this or redirects to topic of concern - going home and feeding the cats. Her safety does not appear to be an issue that exists in her mind despite multiple prior discussions. Arrangements are underway for guardianship and placement. Appreciate SS updates. She appears to be recovering well from COVID 19 and has not been requiring oxygen (one recorded value appears may have been spurious). Her isolation may now be discontinued. We are confirming with psychiatry if additional supportive care may be continued on psychiatric unit pending above arrangements. Otherwise may continue on medical floor. Continue to encourage adherence with her medicines. Encourage oral intake. Added protein shakes. If she may let us know what foods she likes, perhaps we can request for those. 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 Doing well on RA. DC isolation. Consideration is given to additional supportive care on neuropsychiatric unit to provide a little less restrictive environment, better interaction and possibility of observation while pending guardianship and further living arrangements. This is being discussed w SS and NPU team. -received remdisivir over 2 days, thereafter refused treatment -s/p empiric ceftriaxone course -Vitamin C, zinc -Advair albuterol Status: Acute (3) Metabolic encephalopathy: Multifactorial as above. Status: Acute (4) Recurrent falls: PT OT Status: Acute (5) Essential hypertension: At goal. Continue home blood pressure medications. Status: Acute (6) Diabetes mellitus with neuropathy: Continue glucose monitoring. 60 units Lantus and pre meal insulin 30 units. Status: Acute Qualifiers: Diabetes mellitus type: type 2 Diabetes mellitus nursing home insulin use: with nursing home use Qualified Code(s): E11.40 - Type 2 diabetes mellitus with diabetic neuropathy, unspecified; Z79.4 - prison (current) use of insulin (7) Mixed hyperlipidemia: Continue home medication Status: Acute (8) Poor social situation: -Both parents were patient's caregivers -Especially after her strokes a year ago and recurrent strokes, she has had decline in her cognitive functioning, physical deconditioning, will need shelter placement -There have been many concerns for her poor social situation as outpatient by PCP, has had ER visits for this -Her mother is on hospice, currently at [facility], with COVID-19 -Father has severe dementia, with COVID-19 , unable to be her gallery director -she is insistent on returning home, however does not appear to have capacity to fully understand all aspects of her decision of returning home. Status: Acute (9) Multinodular thyroid: Will require outpatient follow-up Status: Acute (10) Acute embolic stroke: Continue Eliquis, statin, aspirin Status: Acute (11) Right humeral fracture: Appears stable on XR 07/23. She had declined a sling. Consider sling symptomatically if she will allow. Follow-up with primary care provider after discharge. Status: Acute (12) DELORIS (acute kidney injury): Avoid nephrotoxins. Status: Acute (13) Hyperkalemia: Resolved. Status: Acute (14) Hyponatremia: improved Status: Acute (15) Bilateral pneumonia: Well on RA Status: Acute (16) Hypomagnesemia: Resolved [place] No significant changes today. Continue current management. We will check her labs in the morning. Waiting for placement to a assisted facility. Discussed with multidisciplinary team and case management. We are still waiting for court date and hearing regarding guardianship. According to the psychiatric evaluation patient lacks clear capacity. half-way facility is approved. Discussed with the patient. Updated her on the process and the plan of care. Attestations Medical Necessity Statement*: Pending placement Coding Level of Care Code Acute [employer] T[employer] Helper for g Fwd Diagnoses Acute delirium R41.0 Pneumonia due to COVID-19 virus U07.1; J12.89 Metabolic encephalopathy G93.41 Recurrent falls R29.6 Essential hypertension I10 Diabetes mellitus with neuropathy E11.40; Z79.4 Diabetes mellitus type: type 2 Diabetes mellitus nursing home insulin use: with nursing home use Mixed hyperlipidemia E78.2 Poor social situation Z65.9 Multinodular thyroid E04.2 Acute embolic stroke I63.9 Right humeral fracture S42.301A DELORIS (acute kidney injury) N17.9 Hyperkalemia E87.5 Hyponatremia E87.1 Bilateral pneumonia J18.9 Hypomagnesemia E83.42
[2020-08-09] MEDS: acetaminophen 325 mg Tablet 650 MG PO (18:19)
--- NOTE | 2020-08-09 19:41 | PC.NURSE ---
PT REFUSED TO ALLOW THE AID AND THIS NURSE TO GET A BLOOD SUGAR CHECK ON HER. THIS NURSE WAS NOT COMFORTABLE GIVING PT THE ORDERED 30 UNITS OF NOVOLOG SINCE NO BLOOD SUGAR WAS ABLE TO BE OBTAINED. THE DOCTOR WAS NOTIFIED ABOUT THE PTS REFUSAL OF GETTING A GLUCOSE CHECK. THE DOCTOR TOLD THIS NURSE TO NOT GIVE THE NOVOLOG. NO NOVOLOG WAS GIVEN PER DOCTORS ORDER. A GLUCOSE CHECK WILL BE ATTEMPTED AGAIN THIS EVENING BY THE HAT COPYIST STAFF. PT DOES NOT SHOW ANY SIGNS OR SYMPTOMS OF HYPOGLYCEMIA OR HYPERGLYCEMIA. WILL CONTINUE TO MONITOR PT.
[2020-08-09] MEDS: insulin glargine 100 units/1 mL 60 UNIT SUBCUT (20:59)
--- NOTE | 2020-08-09 21:03 | PC.NURSE ---
pt requests a indwelling blood sugar monitoring device. she refuses to allow staff to do fingerstick glucose checks.
--- NOTE | 2020-08-09 22:41 | PC.NURSE ---
PM assessment Pt refused elequis and keppra. PT refuses to allow staff to do glucose monitoring and stated she wishes to have an indwelling glucose monitoring system. Altered Mental Status, pt expresses language in word salad form. She wanted mustard on a sandwich that she called deepali but was able to spell mustard. She is allowing her long acting insulin to be given. She expressed worry about her 13 cats at home and her fathers ability to care for them. She is convinced that she is going home in the morning. She is cooperative with male 1:1 sitters but verbally assaultive with females per shift report. Pt denies pain at this time. will continue to monitor
[2020-08-10] MEDS: hydroCHLOROthiazide 25 mg Tablet PO (05:50)
[2020-08-10] MEDS: spironolactone 25 mg Tablet 50 MG PO (05:50)
[2020-08-10 08:00] VITALS: BP 109/71; BP 123/71; PULSE 72; PULSE 79; RESP 15; RESP 17; TEMP 36.6; TEMP 36.8; O2SAT 97
[2020-08-10 12:00] VITALS: BP 123/71; PULSE 79; RESP 17; TEMP 36.6; O2SAT 99
--- NOTE | 2020-08-10 12:21 | PM.PN ---
Subjective Subjective: Interval history: No significant changes or events. Refusing Accu-Cheks and insulin. Refusing blood tests and frequently vital signs. Vitals/I&O/Wt Last Vital Signs Temp 98.2 F 08/10/20 08:00 Pulse 72 08/10/20 08:00 Resp 15 08/10/20 08:00 BP 109/71 08/10/20 08:00 Pulse Ox 97 08/10/20 08:00 08/09/20 08/10/20 08/10/20 22:59 06:59 14:59 Intake Total 480 / 760 Balance 480 / 760 Physical Exam Narrative: EXAM NARRATIVE: Alert oriented HENMT: COMMON NORMALS: normocephalic and atraumatic HEAD & SCALP: normocephalic and atraumatic Chest: COMMONS NORMALS: normal inspection of the chest Resp: COMMON NORMALS: normal respiratory effort and clear to auscultation bilaterally EFFORT & INSPECTION: Yes symmetric chest movement AUSCULTATION: clear to auscultation bilaterally Cardio: COMMON NORMALS: regular rate, regular rhythm, S1 normal heart sound present, S2 normal heart sound present and Peripheral pulses 2+ throughout RATE: regular rate RHYTHM: regular rhythm HEART SOUNDS: S1 normal heart sound present and S2 normal heart sound present PERIPHERAL PULSES: Peripheral pulses 2+ throughout GI: COMMON NORMALS: Normal to inspection, nondistended, normoactive bowel sounds present, Soft to palpation, non-tender, No hepatosplenomegaly present and no masses AUSCULTATION: Yes normoactive bowel sounds PALPATION: Yes Soft to palpation and Yes No hepatosplenomegaly present RECTAL EXAM: deferred Extremity: COMMON NORMALS: no clubbing, cyanosis or edema and no pedal edema Data : 07/27/20 03:15 07/27/20 03:15 A&P Assessment and plan (1) Acute delirium: She is now able to ambulate a little and overall appears mental status does not appear is improving any further. She is adamant about leaving home, but appears to persevere on the safety of her cats and appears not to even acknowledge that there is a concern about her safety. She ignores any attempts to discuss this or redirects to topic of concern - going home and feeding the cats. Her safety does not appear to be an issue that exists in her mind despite multiple prior discussions. Arrangements are underway for guardianship and placement. Appreciate SS updates. She appears to be recovering well from COVID 19 and has not been requiring oxygen (one recorded value appears may have been spurious). Her isolation may now be discontinued. We are confirming with psychiatry if additional supportive care may be continued on psychiatric unit pending above arrangements. Otherwise may continue on medical floor. Continue to encourage adherence with her medicines. Encourage oral intake. Added protein shakes. If she may let us know what foods she likes, perhaps we can request for those. 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 Doing well on RA. DC isolation. Consideration is given to additional supportive care on neuropsychiatric unit to provide a little less restrictive environment, better interaction and possibility of observation while pending guardianship and further living arrangements. This is being discussed w SS and NPU team. -received remdisivir over 2 days, thereafter refused treatment -s/p empiric ceftriaxone course -Vitamin C, zinc -Advair albuterol Status: Acute (3) Metabolic encephalopathy: Multifactorial as above. Status: Acute (4) Recurrent falls: PT OT Status: Acute (5) Essential hypertension: At goal. Continue home blood pressure medications. Status: Acute (6) Diabetes mellitus with neuropathy: Continue glucose monitoring. 60 units Lantus and pre meal insulin 30 units. Status: Acute Qualifiers: Diabetes mellitus type: type 2 Diabetes mellitus sailing master insulin use: with sailing master use Qualified Code(s): E11.40 - Type 2 diabetes mellitus with diabetic neuropathy, unspecified; Z79.4 - group home (current) use of insulin (7) Mixed hyperlipidemia: Continue home medication Status: Acute (8) Poor social situation: -Both parents were patient's caregivers -Especially after her strokes a year ago and recurrent strokes, she has had decline in her cognitive functioning, physical deconditioning, will need retirement placement -There have been many concerns for her poor social situation as outpatient by PCP, has had ER visits for this -Her mother is on hospice, currently at [facility], with COVID-19 -Father has severe dementia, with COVID-19 , unable to be her education paraprofessional -she is insistent on returning home, however does not appear to have capacity to fully understand all aspects of her decision of returning home. Status: Acute (9) Multinodular thyroid: Will require outpatient follow-up Status: Acute (10) Acute embolic stroke: Continue Eliquis, statin, aspirin Status: Acute (11) Right humeral fracture: Appears stable on XR 07/23. She had declined a sling. Consider sling symptomatically if she will allow. Follow-up with primary care provider after discharge. Status: Acute (12) DELORIS (acute kidney injury): Avoid nephrotoxins. Status: Acute (13) Hyperkalemia: Resolved. Status: Acute (14) Hyponatremia: improved Status: Acute (15) Bilateral pneumonia: Well on RA Status: Acute (16) Hypomagnesemia: Resolved Status: Acute Additional A&P Information Assessment and plan (1) Acute delirium: She is now able to ambulate a little and overall appears mental status does not appear is improving any further. She is adamant about leaving home, but appears to persevere on the safety of her cats and appears not to even acknowledge that there is a concern about her safety. She ignores any attempts to discuss this or redirects to topic of concern - going home and feeding the cats. Her safety does not appear to be an issue that exists in her mind despite multiple prior discussions. Arrangements are underway for guardianship and placement. Appreciate SS updates. She appears to be recovering well from COVID 19 and has not been requiring oxygen (one recorded value appears may have been spurious). Her isolation may now be discontinued. We are confirming with psychiatry if additional supportive care may be continued on psychiatric unit pending above arrangements. Otherwise may continue on medical floor. Continue to encourage adherence with her medicines. Encourage oral intake. Added protein shakes. If she may let us know what foods she likes, perhaps we can request for those. 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 Doing well on RA. DC isolation. Consideration is given to additional supportive care on neuropsychiatric unit to provide a little less restrictive environment, better interaction and possibility of observation while pending guardianship and further living arrangements. This is being discussed w SS and NPU team. -received remdisivir over 2 days, thereafter refused treatment -s/p empiric ceftriaxone course -Vitamin C, zinc -Advair albuterol Status: Acute (3) Metabolic encephalopathy: Multifactorial as above. Status: Acute (4) Recurrent falls: PT OT Status: Acute (5) Essential hypertension: At goal. Continue home blood pressure medications. Status: Acute (6) Diabetes mellitus with neuropathy: Continue glucose monitoring. 60 units Lantus and pre meal insulin 30 units. Status: Acute Qualifiers: Diabetes mellitus type: type 2 Diabetes mellitus sailing master insulin use: with longterm use Qualified Code(s): E11.40 - Type 2 diabetes mellitus with diabetic neuropathy, unspecified; Z79.4 - group home (current) use of insulin (7) Mixed hyperlipidemia: Continue home medication Status: Acute (8) Poor social situation: -Both parents were patient's caregivers -Especially after her strokes a year ago and recurrent strokes, she has had decline in her cognitive functioning, physical deconditioning, will need retirement placement -There have been many concerns for her poor social situation as outpatient by PCP, has had ER visits for this -Her mother is on hospice, currently at [facility], with COVID-19 -Father has severe dementia, with COVID-19 , unable to be her education paraprofessional -she is insistent on returning home, however does not appear to have capacity to fully understand all aspects of her decision of returning home. Status: Acute (9) Multinodular thyroid: Will require outpatient follow-up Status: Acute (10) Acute embolic stroke: Continue Eliquis, statin, aspirin Status: Acute (11) Right humeral fracture: Appears stable on XR 07/23. She had declined a sling. Consider sling symptomatically if she will allow. Follow-up with primary care provider after discharge. Status: Acute (12) DELORIS (acute kidney injury): Avoid nephrotoxins. Status: Acute (13) Hyperkalemia: Resolved. Status: Acute (14) Hyponatremia: improved Status: Acute (15) Bilateral pneumonia: Well on RA Status: Acute (16) Hypomagnesemia: Resolved [place] No significant changes today. Continue current management. We will check her labs in the morning. [facility]. Discussed with multidisciplinary team and case management. We are still waiting for court date and hearing regarding guardianship. According to the psychiatric evaluation patient lacks clear capacity. alf facility is approved. Discussed with the patient. Updated her on the process and the plan of care. Attestations Medical Necessity Statement*: Waiting for the court date Coding Level of Care Code Acute Nursery Technician for g Fwd Diagnoses Acute delirium R41.0 Pneumonia due to COVID-19 virus U07.1; J12.89 Metabolic encephalopathy G93.41 Recurrent falls R29.6 Essential hypertension I10 Diabetes mellitus with neuropathy E11.40; Z79.4 Diabetes mellitus type: type 2 Diabetes mellitus longterm insulin use: with sailing master use Mixed hyperlipidemia E78.2 Poor social situation Z65.9 Multinodular thyroid E04.2 Acute embolic stroke I63.9 Right humeral fracture S42.301A DELORIS (acute kidney injury) N17.9 Hyperkalemia E87.5 Hyponatremia E87.1 Bilateral pneumonia J18.9 Hypomagnesemia E83.42
[2020-08-10] MEDS: atorvastatin 40 mg Tablet 80 MG PO (12:46)
[2020-08-10] MEDS: allopurinol 300 mg Tablet PO (12:46)
[2020-08-10] MEDS: clopidogrel 75 mg Tablet PO (12:47)
[2020-08-10] MEDS: metoprolol tartrate 25 mg Tablet 37.5 MG PO ×2 (12:47→17:17)
[2020-08-10] MEDS: lisinopril 10 mg Tablet PO (12:47)
[2020-08-10] MEDS: duloxetine 30 mg Capsule PO (12:47)
--- NOTE | 2020-08-10 14:07 | PC.SOCIAL ---
IMM not given Awaiting guardianship on pt. IMM not given.
[2020-08-10 16:00] VITALS: BP 107/52; PULSE 60; RESP 16; TEMP 36.5; O2SAT 97
[2020-08-10 20:00] VITALS: BP 109/65; PULSE 54; RESP 16; TEMP 36.4; O2SAT 98
[2020-08-10 21:20] LABS: Glucose Point of Care 157 mg/dL (70-110)
--- NOTE | 2020-08-10 21:40 | PC.NURSE ---
MEDS Pt refused pm meds including insulin. Says her blood sugar was good so she does not need to take any. Attempted to explain about it being Lantus long acting to maintain BS but cont to refuse it. Looks at pills then decides whether she will take them or not.
--- NOTE | 2020-08-10 23:19 | PC.NURSE ---
RESTLESSNESS Has been sitting on side of bed most all evening. c/o inability to sleep but refused the po Ativan when offered. Ambulated out into [place] and was refusing to go back into room because she can't sleep with roommate. Also does not like having sitter in room. Has been unhappy since moved into semiprivate room before shift change. Wants to go home. Again offered the Ativan but again declines. Given cotton balls to help with noise although room is quiet
[2020-08-11] VITALS: BP 109/69; PULSE 54; RESP 18; TEMP 36.6; O2SAT 98
[2020-08-11 04:00] VITALS: BP 117/69; PULSE 71; RESP 16; TEMP 36.6; O2SAT 97
--- NOTE | 2020-08-11 05:38 | PC.NURSE ---
Addendum entered by Mayra Martell LPN 08/11/20 05:42: Has allowed Accucheck to be done but then refused long acting insulin in the pm Original Note: SHIFT SUMMARY Has slept little tonight. Mostly sits on side of bed. Continues to want to go home. Still talks about being unhappy in semi-private room. Refuses most meds. Wants to look at them and then she will decide if she takes it or not. 1:1 sitter at bedside through shift. She does not like sitter in room either and tries to get them to move around the curtain so she can't see them
[2020-08-11] MEDS: spironolactone 25 mg Tablet 50 MG PO (05:56)
[2020-08-11] MEDS: hydroCHLOROthiazide 25 mg Tablet PO (05:57)
[2020-08-11 07:12] VITALS: BP 108/67; PULSE 72; RESP 18; TEMP 36.7; O2SAT 97
--- NOTE | 2020-08-11 07:48 | PC.NURSE ---
Patient refused her AM accucheck
[2020-08-11] MEDS: allopurinol 300 mg Tablet PO (08:53)
[2020-08-11] MEDS: atorvastatin 40 mg Tablet 80 MG PO (08:54)
[2020-08-11] MEDS: zinc gluconate 50 mg Tablet PO (08:54)
[2020-08-11] MEDS: duloxetine 30 mg Capsule PO (08:54)
[2020-08-11] MEDS: metoprolol tartrate 25 mg Tablet 37.5 MG PO ×2 (08:54→17:26)
[2020-08-11] MEDS: clopidogrel 75 mg Tablet PO (08:54)
[2020-08-11] MEDS: lisinopril 10 mg Tablet PO (08:54)
[2020-08-11] MEDS: ascorbic acid 500 mg Tablet PO (08:54)
[2020-08-11 11:01] VITALS: BP 112/69; PULSE 64; RESP 18; TEMP 36.6; O2SAT 96
--- NOTE | 2020-08-11 12:06 | PC.NURSE ---
Patient currently sleeping
--- NOTE | 2020-08-11 12:35 | PM.PN ---
Subjective Subjective: Interval history: No significant changes or events. Vitals/I&O/Wt Last Vital Signs Temp 97.9 F 08/11/20 11:01 Pulse 64 08/11/20 11:01 Resp 18 08/11/20 11:01 BP 112/69 08/11/20 11:01 Pulse Ox 96 08/11/20 11:01 08/10/20 08/11/20 08/11/20 22:59 06:59 14:59 Intake Total 240 / 480 520 / 520 Output Total 200 / 200 Balance 240 / 480 320 / 320 Physical Exam Narrative: EXAM NARRATIVE: Alert oriented Const: COMMON NORMALS: patient oriented x3 HENMT: COMMON NORMALS: normocephalic and atraumatic HEAD & SCALP: normocephalic and atraumatic Chest: CHEST: Yes Symmetrical chest wall rise Resp: COMMON NORMALS: clear to auscultation bilaterally EFFORT & INSPECTION: Yes symmetric chest movement AUSCULTATION: clear to auscultation bilaterally Cardio: COMMON NORMALS: regular rate, regular rhythm, S1 normal heart sound present, S2 normal heart sound present, No gallops present (Cardio), No murmurs present (Cardio), No rub (Cardio) and Peripheral pulses 2+ throughout RATE: regular rate RHYTHM: regular rhythm HEART SOUNDS: S1 normal heart sound present and S2 normal heart sound present PERIPHERAL PULSES: Peripheral pulses 2+ throughout GI: COMMON NORMALS: Normal to inspection, nondistended, normoactive bowel sounds present, Soft to palpation, non-tender, No hepatosplenomegaly present and no masses AUSCULTATION: Yes normoactive bowel sounds PALPATION: Yes Soft to palpation and Yes No hepatosplenomegaly present RECTAL EXAM: deferred Extremity: COMMON NORMALS: no clubbing, cyanosis or edema and no pedal edema Neuro: COMMON NORMALS: patient oriented x3 Data : 07/27/20 03:15 07/27/20 03:15 A&P Assessment and plan (1) Acute delirium: She is now able to ambulate a little and overall appears mental status does not appear is improving any further. She is adamant about leaving home, but appears to persevere on the safety of her cats and appears not to even acknowledge that there is a concern about her safety. She ignores any attempts to discuss this or redirects to topic of concern - going home and feeding the cats. Her safety does not appear to be an issue that exists in her mind despite multiple prior discussions. Arrangements are underway for guardianship and placement. Appreciate SS updates. She appears to be recovering well from COVID 19 and has not been requiring oxygen (one recorded value appears may have been spurious). Her isolation may now be discontinued. We are confirming with psychiatry if additional supportive care may be continued on psychiatric unit pending above arrangements. Otherwise may continue on medical floor. Continue to encourage adherence with her medicines. Encourage oral intake. Added protein shakes. If she may let us know what foods she likes, perhaps we can request for those. 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 Doing well on RA. DC isolation. Consideration is given to additional supportive care on neuropsychiatric unit to provide a little less restrictive environment, better interaction and possibility of observation while pending guardianship and further living arrangements. This is being discussed w SS and NPU team. -received remdisivir over 2 days, thereafter refused treatment -s/p empiric ceftriaxone course -Vitamin C, zinc -Advair albuterol Status: Acute (3) Metabolic encephalopathy: Multifactorial as above. Status: Acute (4) Recurrent falls: PT OT Status: Acute (5) Essential hypertension: At goal. Continue home blood pressure medications. Status: Acute (6) Diabetes mellitus with neuropathy: Continue glucose monitoring. 60 units Lantus and pre meal insulin 30 units. Status: Acute Qualifiers: Diabetes mellitus type: type 2 Diabetes mellitus residential insulin use: with phototypesetting equipment monitor use Qualified Code(s): E11.40 - Type 2 diabetes mellitus with diabetic neuropathy, unspecified; Z79.4 - car body inspector (current) use of insulin (7) Mixed hyperlipidemia: Continue home medication Status: Acute (8) Poor social situation: -Both parents were patient's caregivers -Especially after her strokes a year ago and recurrent strokes, she has had decline in her cognitive functioning, physical deconditioning, will need assisted placement -There have been many concerns for her poor social situation as outpatient by PCP, has had ER visits for this -Her mother is on hospice, currently at [facility], with COVID-19 -Father has severe dementia, with COVID-19 , unable to be her traffic control signaler -she is insistent on returning home, however does not appear to have capacity to fully understand all aspects of her decision of returning home. Status: Acute (9) Multinodular thyroid: Will require outpatient follow-up Status: Acute (10) Acute embolic stroke: Continue Eliquis, statin, aspirin Status: Acute (11) Right humeral fracture: Appears stable on XR 07/23. She had declined a sling. Consider sling symptomatically if she will allow. Follow-up with primary care provider after discharge. Status: Acute (12) DELORIS (acute kidney injury): Avoid nephrotoxins. Status: Acute (13) Hyperkalemia: Resolved. Status: Acute (14) Hyponatremia: improved Status: Acute (15) Bilateral pneumonia: Well on RA Status: Acute (16) Hypomagnesemia: Resolved Status: Acute Additional A&P Information Assessment and plan (1) Acute delirium: She is now able to ambulate a little and overall appears mental status does not appear is improving any further. She is adamant about leaving home, but appears to persevere on the safety of her cats and appears not to even acknowledge that there is a concern about her safety. She ignores any attempts to discuss this or redirects to topic of concern - going home and feeding the cats. Her safety does not appear to be an issue that exists in her mind despite multiple prior discussions. Arrangements are underway for guardianship and placement. Appreciate SS updates. She appears to be recovering well from COVID 19 and has not been requiring oxygen (one recorded value appears may have been spurious). Her isolation may now be discontinued. We are confirming with psychiatry if additional supportive care may be continued on psychiatric unit pending above arrangements. Otherwise may continue on medical floor. Continue to encourage adherence with her medicines. Encourage oral intake. Added protein shakes. If she may let us know what foods she likes, perhaps we can request for those. 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 Doing well on RA. DC isolation. Consideration is given to additional supportive care on neuropsychiatric unit to provide a little less restrictive environment, better interaction and possibility of observation while pending guardianship and further living arrangements. This is being discussed w SS and NPU team. -received remdisivir over 2 days, thereafter refused treatment -s/p empiric ceftriaxone course -Vitamin C, zinc -Advair albuterol Status: Acute (3) Metabolic encephalopathy: Multifactorial as above. Status: Acute (4) Recurrent falls: PT OT Status: Acute (5) Essential hypertension: At goal. Continue home blood pressure medications. Status: Acute (6) Diabetes mellitus with neuropathy: Continue glucose monitoring. 60 units Lantus and pre meal insulin 30 units. Status: Acute Qualifiers: Diabetes mellitus type: type 2 Diabetes mellitus residential insulin use: with residential use Qualified Code(s): E11.40 - Type 2 diabetes mellitus with diabetic neuropathy, unspecified; Z79.4 - car body inspector (current) use of insulin (7) Mixed hyperlipidemia: Continue home medication Status: Acute (8) Poor social situation: -Both parents were patient's caregivers -Especially after her strokes a year ago and recurrent strokes, she has had decline in her cognitive functioning, physical deconditioning, will need assisted placement -There have been many concerns for her poor social situation as outpatient by PCP, has had ER visits for this -Her mother is on hospice, currently at [facility], with COVID-19 -Father has severe dementia, with COVID-19 , unable to be her traffic control signaler -she is insistent on returning home, however does not appear to have capacity to fully understand all aspects of her decision of returning home. Status: Acute (9) Multinodular thyroid: Will require outpatient follow-up Status: Acute (10) Acute embolic stroke: Continue Eliquis, statin, aspirin Status: Acute (11) Right humeral fracture: Appears stable on XR 07/23. She had declined a sling. Consider sling symptomatically if she will allow. Follow-up with primary care provider after discharge. Status: Acute (12) DELORIS (acute kidney injury): Avoid nephrotoxins. Status: Acute (13) Hyperkalemia: Resolved. Status: Acute (14) Hyponatremia: improved Status: Acute (15) Bilateral pneumonia: Well on RA Status: Acute (16) Hypomagnesemia: Resolved [place] No significant changes today. Continue current management. We will check her labs in the morning. [facility] facility. Discussed with multidisciplinary team and case management. We are still waiting for court date and hearing regarding guardianship. According to the psychiatric evaluation patient lacks clear capacity. [facility] facility is approved. Discussed with the patient. Updated her on the process and the plan of care. Attestations Medical Necessity Statement*: Waiting for the court date Coding Level of Care Code Acute Link Trainer Maintenance Worker for [facility] Fwd Diagnoses Acute delirium R41.0 Pneumonia due to COVID-19 virus U07.1; J12.89 Metabolic encephalopathy G93.41 Recurrent falls R29.6 Essential hypertension I10 Diabetes mellitus with neuropathy E11.40; Z79.4 Diabetes mellitus type: type 2 Diabetes mellitus residential insulin use: with residential use Mixed hyperlipidemia E78.2 Poor social situation Z65.9 Multinodular thyroid E04.2 Acute embolic stroke I63.9 Right humeral fracture S42.301A DELORIS (acute kidney injury) N17.9 Hyperkalemia E87.5 Hyponatremia E87.1 Bilateral pneumonia J18.9 Hypomagnesemia E83.42
[2020-08-11 15:22] VITALS: BP 118/71; PULSE 68; RESP 18; TEMP 36.7; O2SAT 97
--- NOTE | 2020-08-11 18:25 | PC.NURSE ---
SHIFT SUMMARY Patient has been rather calm and cooperative today. She has agreed to take most of her medications, except for her insulin, keppra, eliquis, and her vitamin c (PM dose). She has refused all accuchecks. Patient was tearful this afternoon, stating she just wanted to go home to check on her cats. When I asked if someone could go and feed her cats she stated that trees and cars were in the way so no one could get to the door of her house. Patient ambulates without assistance and has done well in eating her meals, though she is rather particular in what she eats.
[2020-08-11 20:00] VITALS: BP 117/69; PULSE 59; RESP 20; TEMP 36.7; O2SAT 96
[2020-08-11] MEDS: acetaminophen 325 mg Tablet 650 MG PO (21:03)
[2020-08-11] MEDS: tizanidine 4 mg Tablet 6 MG PO (21:04)
--- NOTE | 2020-08-11 21:07 | PC.NURSE ---
MEDS c/o legs & feet hurting and jumping. After talking with her and showing her the pills she consented to take Tylenol and Xanaflex. Tearful tonight.
[2020-08-12 04:00] VITALS: BP 104/56; PULSE 51; RESP 20; TEMP 36.7; O2SAT 97
[2020-08-12] MEDS: spironolactone 25 mg Tablet 50 MG PO (05:17)
[2020-08-12] MEDS: hydroCHLOROthiazide 25 mg Tablet PO (05:17)
--- NOTE | 2020-08-12 06:07 | PC.NURSE ---
SHIFT SUMMARY Slept better tonight. No further c/o leg/feet pain after taking the Tylenol and Xanaflex last pm. Has been cooperative with most of care. Still likes to pick and choose which meds she will take and which ones she won't. Talks about going home to her 13 cats. 1:1 sitter at bedside through night
[2020-08-12 08:00] VITALS: BP 123/83; PULSE 53; RESP 18; TEMP 36.5; O2SAT 99
[2020-08-12] MEDS: lisinopril 10 mg Tablet PO (08:39)
[2020-08-12] MEDS: ascorbic acid 500 mg Tablet PO (08:39)
[2020-08-12] MEDS: zinc gluconate 50 mg Tablet PO (08:39)
[2020-08-12] MEDS: allopurinol 300 mg Tablet PO (08:39)
[2020-08-12] MEDS: duloxetine 30 mg Capsule PO (08:39)
[2020-08-12] MEDS: atorvastatin 40 mg Tablet 80 MG PO (08:40)
[2020-08-12] MEDS: metoprolol tartrate 25 mg Tablet 37.5 MG PO (08:40)
[2020-08-12] MEDS: clopidogrel 75 mg Tablet PO (08:40)
[2020-08-12 12:00] VITALS: BP 119/80; PULSE 56; RESP 18; TEMP 36.8; O2SAT 100
--- NOTE | 2020-08-12 14:15 | P.PN_ITS ---
Subjective Subjective: Interval history: No acute events overnight.Vitals stable. Medications: Reviewed: Yes Vitals/I&O/Wt Last Vital Signs Temp 98.2 F 08/12/20 12:00 Pulse 56 L 08/12/20 12:00 Resp 18 08/12/20 12:00 BP 119/80 08/12/20 12:00 Pulse Ox 100 08/12/20 12:00 08/11/20 08/12/20 08/12/20 22:59 06:59 14:59 Intake Total 520 / 1280 300 / 1580 900 / 900 Balance 520 / 1080 300 / 1380 900 / 900 Physical Exam Narrative: EXAM NARRATIVE: Alert oriented Chest: COMMONS NORMALS: normal inspection of the chest and normal palpation of entire chest wall CHEST: Yes Symmetrical chest wall rise Resp: COMMON NORMALS: normal respiratory effort, No retractions, No use of accessory muscles and clear to auscultation bilaterally EFFORT & INSPECTION: Yes symmetric chest movement AUSCULTATION: clear to auscultation bilaterally Cardio: COMMON NORMALS: regular rate, regular rhythm, S1 normal heart sound present, S2 normal heart sound present, No gallops present (Cardio), No murmurs present (Cardio), No rub (Cardio) and Peripheral pulses 2+ throughout RATE: regular rate RHYTHM: regular rhythm HEART SOUNDS: S1 normal heart sound present and S2 normal heart sound present PERIPHERAL PULSES: Peripheral pulses 2+ throughout GI: COMMON NORMALS: Normal to inspection, nondistended, normoactive bowel sounds present, Soft to palpation and non-tender PALPATION: Yes Soft to pal pation RECTAL EXAM: deferred Extremity: COMMON NORMALS: no clubbing, cyanosis or edema and no pedal edema Data : 07/27/20 03:15 07/27/20 03:15 A&P Assessment and plan (1) Acute delirium: She is now able to ambulate a little and overall appears mental status does not appear is improving any further. She is adamant about leaving home, but appears to persevere on the safety of her cats and appears not to even acknowledge that there is a concern about her safety. She ignores any attempts to discuss this or redirects to topic of c oncern - going home and feeding the cats. Her safety does not appear to be an issue that exists in her mind despite multiple prior discussions. Arrangements are underway for guardianship and placement. Appreciate SS updates. She appears to be recovering well from COVID 19 and has not been requiring oxygen (one recorded value appears may have been spurious). Her isolation may now be discontinued. We are confirming with psychiatry if additional supportive care may be continued on psychiatric unit pending above arrangements. Otherwise may continue on medical floor. Continue to encourage adherence with her medicines. Encourage oral intake. Added protein shakes. If she may let us know what foods she likes, perhaps we can request for those. 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 Doing well on RA. DC isolation. Consideration is given to additional supportive care on neuropsychiatric unit to provide a little less restrictive environment, better interaction and possibility of observation while pending guardianship and further living arrangements. This is being discussed w SS and NPU team. -received remdisivir over 2 days, thereafter refused treatment -s/p empiric ceftriaxone course -Vitamin C, zinc -Advair albuterol Status: Acute (3) Metabolic encephalopathy: Multifactorial as above. Status: Acute (4) Recurrent falls: PT OT Status: Acute (5) Essential hypertension: At goal. Continue home blood pressure medications. Status: Acute (6) Diabetes mellitus with neuropathy: Continue glucose monitoring. 60 units Lantus and pre meal insulin 30 units. Status: Acute Qualifiers: Diabetes mellitus type: type 2 Diabetes mellitus group home insulin use: with group home use Qualified Code(s): E11.40 - Type 2 diabetes mellitus with diabetic neuropathy, unspecified; Z79.4 - rodent exterminator (current) use of insulin (7) Mixed hyperlipidemia: Continue home medication Status: Acute (8) Poor social situation: -Both parents were patient's caregivers -Especially after her strokes a year ago and recurrent strokes, she has had decline in her cognitive functioning, physical deconditioning, will need correction placement -There have been many concerns for her poor social situation as outpatient by PCP, has had ER visits for this -Her mother is on hospice, currently at [facility], with COVID-19 -Father has severe dementia, with COVID-19 , unable to be her business development manager -she is insistent on returning home, however does not appear to have capacity to fully understand all aspects of her decision of returning home. Status: Acute (9) Multinodular thyroid: Will require outpatient follow-up Status: Acute (10) Acute embolic stroke: Continue Eliquis, statin, aspirin Status: Acute (11) Right humeral fracture: Appears stable on XR 07/23. She had declined a sling. Consider sling symptomatically if she will allow. Follow-up with primary care provider after discharge. Status: Acute (12) DELORIS (acute kidney injury): Avoid nephrotoxins. Status: Acute (13) Hyperkalemia: Resolved. Status: Acute (14) Hyponatremia: improved Status: Acute (15) Bilateral pneumonia: Well on RA Status: Acute (16) Hypomagnesemia: Resolved Status: Acute Additional A&P Information Assessment and plan (1) Acute delirium: She is now able to ambulate a little and overall appears mental status does not appear is improving any further. She is adamant about leaving home, but appears to persevere on the safety of her cats and appears not to even acknowledge that there is a concern about her safety. She ignores any attempts to discuss this or redirects to topic of concern - going home and feeding the cats. Her safety does not appear to be an issue that exists in her mind despite multiple prior discussions. Arrangements are underway for guardianship and placement. Appreciate SS updates. She appears to be recovering well from COVID 19 and has not been requiring oxygen (one recorded value appears may have been spurious). Her isolation may now be discontinued. We are confirming with psychiatry if additional supportive care may be continued on psychiatric unit pending above arrangements. Otherwise may continue on medical floor. Continue to encourage adherence with her medicines. Encourage oral intake. Added protein shakes. If she may let us know what foods she likes, perhaps we can request for those. 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 Doing well on RA. DC isolation. Consideration is given to additional supportive care on neuropsychiatric unit to provide a little less restrictive environment, better interaction and possibility of observation while pending guardianship and further living arrangements. This is being discussed w SS and NPU team. -received remdisivir over 2 days, thereafter refused treatment -s/p empiric ceftriaxone course -Vitamin C, zinc -Advair albuterol Status: Acute (3) Metabolic encephalopathy: Multifactorial as above. Status: Acute (4) Recurrent falls: PT OT Status: Acute (5) Essential hypertension: At goal. Continue home blood pressure medications. Status: Acute (6) Diabetes mellitus with neuropathy: Continue glucose monitoring. 60 units Lantus and pre meal insulin 30 units. Status: Acute Qualifiers: Diabetes mellitus type: type 2 Diabetes mellitus group home insulin use: with rodent exterminator use Qualified Code(s): E11.40 - Type 2 diabetes mellitus with diabetic neuropathy, unspecified; Z79.4 - rodent exterminator (current) use of insulin (7) Mixed hyperlipidemia: Continue home medication Status: Acute (8) Poor social situation: -Both parents were patient's caregivers -Especially after her strokes a year ago and recurrent strokes, she has had decline in her cognitive functioning, physical deconditioning, will need correction placement -There have been many concerns for her poor social situation as outpatient by PCP, has had ER visits for this -Her mother is on hospice, currently at [facility], with COVID-19 -Father has severe dementia, with COVID-19 , unable to be her business development manager -she is insistent on returning home, however does not appear to have capacity to fully understand all aspects of her decision of returning home. Status: Acute (9) Multinodular thyroid: Will require outpatient follow-up Status: Acute (10) Acute embolic stroke: Continue Eliquis, statin, aspirin Status: Acute (11) Right humeral fracture: Appears stable on XR 07/23. She had declined a sling. Consider sling symptomatically if she will allow. Follow-up with primary care provider after discharge. Status: Acute (12) DELORIS (acute kidney injury): Avoid nephrotoxins. Status: Acute (13) Hyperkalemia: Resolved. Status: Acute (14) Hyponatremia: improved Status: Acute (15) Bilateral pneumonia: Well on RA Status: Acute (16) Hypomagnesemia: Resolved No significant changes today. Continue current management. Waiting for placement to a nursing home facility. Discussed with multidisciplinary team and case management. We are still waiting for court date and hearing regarding guardianship. According to the psychiatric evaluation patient lacks clear capacity. [facility] facility is approved. Discussed with the patient. Updated her on the process and the plan of care. Attestations Medical Necessity Statement*: Waiting for the court date Coding Level of Care Code Acute Neighborhood Conservation Officer for [facility] Fwd Diagnoses Acute delirium R41.0 Pneumonia due to COVID-19 virus U07.1; J12.89 Metabolic encephalopathy G93.41 Recurrent falls R29.6 Essential hypertension I10 Diabetes mellitus with neuropathy E11.40; Z79.4 Diabetes mellitus type: type 2 Diabetes mellitus rodent exterminator insulin use: with rodent exterminator use Mixed hyperlipidemia E78.2 Poor social situation Z65.9 Multinodular thyroid E04.2 Acute embolic stroke I63.9 Right humeral fracture S42.301A DELORIS (acute kidney injury) N17.9 Hyperkalemia E87.5 Hyponatremia E87.1 Bilateral pneumonia J18.9 Hypomagnesemia E83.42
[2020-08-12 16:00] VITALS: BP 136/81; PULSE 60; RESP 18; TEMP 36.7; O2SAT 100
--- NOTE | 2020-08-12 18:16 | PC.NURSE ---
SHIFT SUMMARY Patient has been very calm and fairly cooperative during this shift. Has mostly sat on the side of her bed and watched tv, though she did read some magazines. She refused to take her insulin and protonix during the shift. She has also refused her accuchecks.
[2020-08-12 19:47] VITALS: BP 116/67; PULSE 70; RESP 19; TEMP 36.9; O2SAT 97
[2020-08-12] MEDS: insulin glargine 100 units/1 mL 60 UNIT SUBCUT (22:37)
[2020-08-13 04:00] VITALS: BP 123/80; PULSE 79; RESP 18; TEMP 36.6; O2SAT 97
[2020-08-13 08:00] VITALS: BP 131/86; PULSE 78; RESP 16; TEMP 36.6; O2SAT 96
[2020-08-13] MEDS: duloxetine 30 mg Capsule PO (10:05)
[2020-08-13] MEDS: metoprolol tartrate 25 mg Tablet PO (10:38)
[2020-08-13 12:00] VITALS: BP 143/78; PULSE 78; RESP 16; TEMP 37.4; O2SAT 96
--- NOTE | 2020-08-13 13:13 | PM.PN ---
Subjective Subjective: Interval history: Patient has been insisting on going home. Have continued to refuse medications. Vitals have been stable. Medications: Reviewed: Yes Vitals/I&O/Wt Last Vital Signs Temp 99.4 F 08/13/20 12:00 Pulse 78 08/13/20 12:00 Resp 16 08/13/20 12:00 BP 143/78 08/13/20 12:00 Pulse Ox 96 08/13/20 12:00 08/12/20 08/13/20 08/13/20 22:59 06:59 14:59 Intake Total 620 / 1520 240 / 240 Balance 620 / 1520 240 / 240 Physical Exam Narrative: EXAM NARRATIVE: Alert and awake Const: COMMON NORMALS: patient oriented x3 HENMT: COMMON NORMALS: normocephalic and atraumatic HEAD & SCALP: normocephalic and atraumatic Chest: COMMONS NORMALS: normal inspection of the chest CHEST: Yes Symmetrical chest wall rise Resp: COMMON NORMALS: normal respiratory effort, No retractions, No use of accessory muscles and clear to auscultation bilaterally EFFORT & INSPECTION: Yes symmetric chest movement AUSCULTATION: clear to auscultation bilaterally Cardio: COMMON NORMALS: regular rate, regular rhythm, S1 normal heart sound present, S2 normal heart sound present, No gallops present (Cardio), No murmurs present (Cardio), No rub (Cardio) and Peripheral pulses 2+ throughout RATE: regular rate RHYTHM: regular rhythm HEART SOUNDS: S1 normal heart sound present and S2 normal heart sound present PERIPHERAL PULSES: Peripheral pulses 2+ throughout GI: COMMON NORMALS: Normal to inspection, nondistended, normoactive bowel sounds present, Soft to palpation, non-tender, No hepatosplenomegaly present and no masses AUSCULTATION: Yes normoactive bowel sounds PALPATION: Yes Soft to palpation and Yes No hepatosplenomegaly present RECTAL EXAM: deferred Extremity: COMMON NORMALS: no clubbing, cyanosis or edema and no pedal edema Neuro: COMMON NORMALS: patient oriented x3 Data : 07/27/20 03:15 07/27/20 03:15 A&P Assessment and plan (1) Acute delirium: She is now able to ambulate a little and overall appears mental status does not appear is improving any further. She is adamant about leaving home, but appears to persevere on the safety of her cats and appears not to even acknowledge that there is a concern about her safety. She ignores any attempts to discuss this or redirects to topic of concern - going home and feeding the cats. Her safety does not appear to be an issue that exists in her mind despite multiple prior discussions. Arrangements are underway for guardianship and placement. Appreciate SS updates. She appears to be recovering well from COVID 19 and has not been requiring oxygen (one recorded value appears may have been spurious). Her isolation may now be discontinued. We are confirming with psychiatry if additional supportive care may be continued on psychiatric unit pending above arrangements. Otherwise may continue on medical floor. Continue to encourage adherence with her medicines. Encourage oral intake. Added protein shakes. If she may let us know what foods she likes, perhaps we can request for those. 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 Doing well on RA. DC isolation. Consideration is given to additional supportive care on neuropsychiatric unit to provide a little less restrictive environment, better interaction and possibility of observation while pending guardianship and further living arrangements. This is being discussed w SS and NPU team. -received remdisivir over 2 days, thereafter refused treatment -s/p empiric ceftriaxone course -Vitamin C, zinc -Advair albuterol Status: Acute (3) Metabolic encephalopathy: Multifactorial as above. Status: Acute (4) Recurrent falls: PT OT Status: Acute (5) Essential hypertension: At goal. Continue home blood pressure medications. Status: Acute (6) Diabetes mellitus with neuropathy: Continue glucose monitoring. 60 units Lantus and pre meal insulin 30 units. Status: Acute Qualifiers: Diabetes mellitus type: type 2 Diabetes mellitus crewman main battle tank insulin use: with crewman main battle tank use Qualified Code(s): E11.40 - Type 2 diabetes mellitus with diabetic neuropathy, unspecified; Z79.4 - care home (current) use of insulin (7) Mixed hyperlipidemia: Continue home medication Status: Acute (8) Poor social situation: -Both parents were patient's caregivers -Especially after her strokes a year ago and recurrent strokes, she has had decline in her cognitive functioning, physical deconditioning, will need alf placement -There have been many concerns for her poor social situation as outpatient by PCP, has had ER visits for this -Her mother is on hospice, currently at [facility], with COVID-19 -Father has severe dementia, with COVID-19 , unable to be her social and human services assistant -she is insistent on returning home, however does not appear to have capacity to fully understand all aspects of her decision of returning home. Status: Acute (9) Multinodular thyroid: Will require outpatient follow-up Status: Acute (10) Acute embolic stroke: Continue Eliquis, statin, aspirin Status: Acute (11) Right humeral fracture: Appears stable on XR 07/23. She had declined a sling. Consider sling symptomatically if she will allow. Follow-up with primary care provider after discharge. Status: Acute (12) DELORIS (acute kidney injury): Avoid nephrotoxins. Status: Acute (13) Hyperkalemia: Resolved. Status: Acute (14) Hyponatremia: improved Status: Acute (15) Bilateral pneumonia: Well on RA Status: Acute (16) Hypomagnesemia: Resolved Status: Acute Additional A&P Information Assessment and plan (1) Acute delirium: She is now able to ambulate a little and overall appears mental status does not appear is improving any further. She is adamant about leaving home, but appears to persevere on the safety of her cats and appears not to even acknowledge that there is a concern about her safety. She ignores any attempts to discuss this or redirects to topic of concern - going home and feeding the cats. Her safety does not appear to be an issue that exists in her mind despite multiple prior discussions. Arrangements are underway for guardianship and placement. Appreciate SS updates. She appears to be recovering well from COVID 19 and has not been requiring oxygen (one recorded value appears may have been spurious). Her isolation may now be discontinued. We are confirming with psychiatry if additional supportive care may be continued on psychiatric unit pending above arrangements. Otherwise may continue on medical floor. Continue to encourage adherence with her medicines. Encourage oral intake. Added protein shakes. If she may let us know what foods she likes, perhaps we can request for those. 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 Doing well on RA. DC isolation. Consideration is given to additional supportive care on neuropsychiatric unit to provide a little less restrictive environment, better interaction and possibility of observation while pending guardianship and further living arrangements. This is being discussed w SS and NPU team. -received remdisivir over 2 days, thereafter refused treatment -s/p empiric ceftriaxone course -Vitamin C, zinc -Advair albuterol Status: Acute (3) Metabolic encephalopathy: Multifactorial as above. Status: Acute (4) Recurrent falls: PT OT Status: Acute (5) Essential hypertension: At goal. Continue home blood pressure medications. Status: Acute (6) Diabetes mellitus with neuropathy: Continue glucose monitoring. 60 units Lantus and pre meal insulin 30 units. Status: Acute Qualifiers: Diabetes mellitus type: type 2 Diabetes mellitus longterm insulin use: with longterm use Qualified Code(s): E11.40 - Type 2 diabetes mellitus with diabetic neuropathy, unspecified; Z79.4 - transportation job titles (current) use of insulin (7) Mixed hyperlipidemia: Continue home medication Status: Acute (8) Poor social situation: -Both parents were patient's caregivers -Especially after her strokes a year ago and recurrent strokes, she has had decline in her cognitive functioning, physical deconditioning, will need alf placement -There have been many concerns for her poor social situation as outpatient by PCP, has had ER visits for this -Her mother is on hospice, currently at [facility], with COVID-19 -Father has severe dementia, with COVID-19 , unable to be her social and human services assistant -she is insistent on returning home, however does not appear to have capacity to fully understand all aspects of her decision of returning home. Status: Acute (9) Multinodular thyroid: Will require outpatient follow-up Status: Acute (10) Acute embolic stroke: Continue Eliquis, statin, aspirin Status: Acute (11) Right humeral fracture: Appears stable on XR 07/23. She had declined a sling. Consider sling symptomatically if she will allow. Follow-up with primary care provider after discharge. Status: Acute (12) DELORIS (acute kidney injury): Avoid nephrotoxins. Status: Acute (13) Hyperkalemia: Resolved. Status: Acute (14) Hyponatremia: improved Status: Acute (15) Bilateral pneumonia: Well on RA Status: Acute (16) Hypomagnesemia: Resolved No significant changes today. Continue current management. Waiting for placement to a halfway facility. Discussed with multidisciplinary team and case management. We are still waiting for court date and hearing regarding guardianship. According to the psychiatric evaluation patient lacks clear capacity. [facility] facility is approved. Discussed with the patient. Updated her on the process and the plan of care. Attestations Medical Necessity Statement*: Patient awaiting court Date Coding Level of Care Code Acute Cement Truck Loader for g Fwd Diagnoses Acute delirium R41.0 Pneumonia due to COVID-19 virus U07.1; J12.89 Metabolic encephalopathy G93.41 Recurrent falls R29.6 Essential hypertension I10 Diabetes mellitus with neuropathy E11.40; Z79.4 Diabetes mellitus type: type 2 Diabetes mellitus crewman main battle tank insulin use: with longterm use Mixed hyperlipidemia E78.2 Poor social situation Z65.9 Multinodular thyroid E04.2 Acute embolic stroke I63.9 Right humeral fracture S42.301A DELORIS (acute kidney injury) N17.9 Hyperkalemia E87.5 Hyponatremia E87.1 Bilateral pneumonia J18.9 Hypomagnesemia E83.42
[2020-08-13 15:40] VITALS: BP 109/66; PULSE 71; RESP 16; TEMP 37.6; O2SAT 97
[2020-08-13 20:00] VITALS: BP 122/74; PULSE 57; RESP 20; TEMP 37.9; O2SAT 98
[2020-08-13] MEDS: insulin glargine 100 units/1 mL 60 UNIT SUBCUT (22:53)
[2020-08-14] VITALS (8 sets, daily range): BP systolic 104–119; BP diastolic 60–74; PULSE 62–105; RESP 16–20; TEMP 36.5–37; O2SAT 93–99
[2020-08-14] MEDS: metoprolol tartrate 25 mg Tablet PO (10:11)
[2020-08-14] MEDS: duloxetine 30 mg Capsule PO (10:11)
--- NOTE | 2020-08-14 15:22 | P.PN_ITS ---
Subjective Subjective: Interval history: Patient continues to refuse medications. Vitals :Stable. Medications: Reviewed: Yes Vitals/I&O/Wt Last Vital Signs Temp 98.3 F 08/14/20 12:00 Pulse 62 08/14/20 12:00 Resp 16 08/14/20 12:00 BP 119/73 08/14/20 12:00 Pulse Ox 97 08/14/20 12:00 08/14/20 08/14/20 08/14/20 06:59 14:59 22:59 Intake Total 240 / 240 Output Total 0 / 0 Balance 0 / 500 240 / 240 Physical Exam Narrative: EXAM NARRATIVE: Alert and awake Const: COMMON NORMALS: patient oriented x3 HENMT: COMMON NORMALS: normocephalic and atraumatic HEAD & SCALP: normocephalic and atraumatic Resp: COMMON NORMALS: clear to auscultation bilaterally AUSCULTATION: clear to auscultation bilaterally Cardio: COMMON NORMALS: regular rate, regular rhythm, S1 normal heart sound present and S2 normal heart sound present RATE: regular rate RHYTHM: regular rhythm HEART SOUNDS: S1 normal heart sound present and S2 normal heart sound present GI: COMMON NORMALS: Normal to inspection, nondistended, normoactive bowel sounds present, Soft to palpation, non-tender, No hepatosplenomegaly present and no masses AUSCULTATION: Yes normoactive bowel sounds PALPATION: Yes Soft to palpation and Yes No hepatosplenomegaly present RECTAL EXAM: deferred Extremity: COMMON NORMALS: no clubbing, cyanosis or edema and no pedal edema Neuro: COMMON NORMALS: patient oriented x3 Data : 07/27/20 03:15 07/27/20 03:15 A&P Assessment and plan (1) Acute delirium: She is now able to ambulate a little and overall appears mental status do es not appear is improving any further. She is adamant about leaving home, but appears to persevere on the safety of her cats and appears not to even acknowledge that there is a concern about her saf ety. She ignores any attempts to discuss this or redirects to topic of concern - going home and feeding the cats. Her safety does not appear to be an issue that exists in her mind despite multiple prior discussions. Arrangements are underway for guardianship and placement. Appreciate SS updates. She appears to be recovering well from COVID 19 and has not been requiring oxygen (one recorded value appears may have been spurious). Her isolation may now be discontinued. We are confirming with psychiatry if additional supportive care may be continued on psychiatric unit pending above arrangements. Otherwise may continue on medical floor. Continue to encourage adherence with her medicines. Encourage oral intake. Added protein shakes. If she may let us know what foods she likes, perhaps we can request for those. 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 Doing well on RA. DC isolation. Consideration is given to additional supportive care on neuropsychiatric unit to provide a little less restrictive environment, better interaction and possibility of observation while pending guardianship and further living arrangements. This is being discussed w SS and NPU team. -received remdisivir over 2 days, thereafter refused treatment -s/p empiric ceftriaxone course -Vitamin C, zinc -Advair albuterol Status: Acute (3) Metabolic encephalopathy: Multifactorial as above. Status: Acute (4) Recurrent falls: PT OT Status: Acute (5) Essential hypertension: At goal. Continue home blood pressure medications. Status: Acute (6) Diabetes mellitus with neuropathy: Continue glucose monitoring. 60 units Lantus and pre meal insulin 30 units. Status: Acute Qualifiers: Diabetes mellitus type: type 2 Diabetes mellitus senior living insulin use: with senior living use Qualified Code(s): E11.40 - Type 2 diabetes mellitus with diabetic neuropathy, unspecified; Z79.4 - extermination inspector (current) use of insulin (7) Mixed hyperlipidemia: Continue home medication Status: Acute (8) Poor social situation: -Both parents were patient's caregivers -Especially after her strokes a year ago and recurrent strokes, she has had decline in her cognitive functioning, physical deconditioning, will need assisted placement -There have been many concerns for her poor social situation as outpatient by PCP, has had ER visits for this -Her mother is on hospice, currently at [facility], with COVID-19 -Father has severe dementia, with COVID-19 , 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 Status: Acute (9) Multinodular thyroid: Will require outpatient follow-up Status: Acute (10) Acute embolic stroke: Continue Eliquis, statin, aspirin Status: Acute (11) Right humeral fracture: Appears stable on XR 07/23. She had declined a sling. Consider sling symptomatically if she will allow. Follow-up with primary care provider after discharge. Status: Acute (12) DELORIS (acute kidney injury): Avoid nephrotoxins. Status: Acute (13) Hyperkalemia: Resolved. Status: Acute (14) Hyponatremia: improved Status: Acute (15) Bilateral pneumonia: Well on RA Status: Acute (16) Hypomagnesemia: Resolved Status: Acute Additional A&P Information Assessment and plan (1) Acute delirium: She is now able to ambulate a little and overall appears mental status does not appear is improving any further. She is adamant about leaving home, but appears to persevere on the safety of her cats and appears not to even acknowledge that there is a concern about her safety. She ignores any attempts to discuss this or redirects to topic of concern - going home and feeding the cats. Her safety does not appear to be an issue that exists in her mind despite multiple prior discussions. Arrangements are underway for guardianship and placement. Appreciate SS updates. She appears to be recovering well from COVID 19 and has not been requiring oxygen (one recorded value appears may have been spurious). Her isolation may now be discontinued. We are confirming with psychiatry if additional supportive care may be continued on psychiatric unit pending above arrangements. Otherwise may continue on medical floor. Continue to encourage adherence with her medicines. Encourage oral intake. Added protein shakes. If she may let us know what foods she likes, perhaps we can request for those. 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 Doing well on RA. DC isolation. Consideration is given to additional supportive care on neuropsychiatric unit to provide a little less restrictive environment, better interaction and possibility of observation while pending guardianship and further living arrangements. This is being discussed w SS and NPU team. -received remdisivir over 2 days, thereafter refused treatment -s/p empiric ceftriaxone course -Vitamin C, zinc -Advair albuterol Status: Acute (3) Metabolic encephalopathy: Multifactorial as above. Status: Acute (4) Recurrent falls: PT OT Status: Acute (5) Essential hypertension: At goal. Continue home blood pressure medications. Status: Acute (6) Diabetes mellitus with neuropathy: Continue glucose monitoring. 60 units Lantus and pre meal insulin 30 units. Status: Acute Qualifiers: Diabetes mellitus type: type 2 Diabetes mellitus senior living insulin use: with extermination inspector use Qualified Code(s): E11.40 - Type 2 diabetes mellitus with diabetic neuropathy, unspecified; Z79.4 - extermination inspector (current) use of insulin (7) Mixed hyperlipidemia: Continue home medication Status: Acute (8) Poor social situation: -Both parents were patient's caregivers -Especially after her strokes a year ago and recurrent strokes, she has had decline in her cognitive functioning, physical deconditioning, will need assisted placement -There have been many concerns for her poor social situation as outpatient by PCP, has had ER visits for this -Her mother is on hospice, currently at [facility], with COVID-19 -Father has severe dementia, with COVID-19 , 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 Status: Acute (9) Multinodular thyroid: Will require outpatient follow-up Status: Acute (10) Acute embolic stroke: Continue Eliquis, statin, aspirin Status: Acute (11) Right humeral fracture: Appears stable on XR 07/23. She had declined a sling. Consider sling symptomatically if she will allow. Follow-up with primary care provider after discharge. Status: Acute (12) DELORIS (acute kidney injury): Avoid nephrotoxins. Status: Acute (13) Hyperkalemia: Resolved. Status: Acute (14) Hyponatremia: improved Status: Acute (15) Bilateral pneumonia: Well on RA Status: Acute (16) Hypomagnesemia: Resolved No significant changes today. Continue current management. Waiting for placement to a residential facility. Discussed with multidisciplinary team and case management. We are still waiting for court date and hearing regarding guardianship. According to the psychiatric evaluation patient lacks clear capacity. halfway facility is approved. Discussed with the patient. Updated her on the process and the plan of care. Attestations Medical Necessity Statement*: Patient is awaiting court date Coding Level of Care Code Acute Front Desk for [facility] Fwd Diagnoses Acute delirium R41.0 Pneumonia due to COVID-19 virus U07.1; J12.89 Metabolic encephalopathy G93.41 Recurrent falls R29.6 Essential hypertension I10 Diabetes mellitus with neuropathy E11.40; Z79.4 Diabetes mellitus type: type 2 Diabetes mellitus senior living insulin use: with senior living use Mixed hyperlipidemia E78.2 Poor social situation Z65.9 Multinodular thyroid E04.2 Acute embolic stroke I63.9 Right humeral fracture S42.301A DELORIS (acute kidney injury) N17.9 Hyperkalemia E87.5 Hyponatremia E87.1 Bilateral pneumonia J18.9 Hypomagnesemia E83.42
[2020-08-14 20:25] LABS: Glucose Point of Care 359 mg/dL (70-110)
[2020-08-14] MEDS: insulin glargine 100 units/1 mL 60 UNIT SUBCUT (20:48)
[2020-08-15] VITALS (9 sets, daily range): BP systolic 111–163; BP diastolic 73–76; PULSE 60–84; RESP 16–18; TEMP 36.2–36.9; O2SAT 96–99
--- NOTE | 2020-08-15 01:10 | PC.NURSE ---
after shift assessment and meds, i asked patient if there was anything else i could do for her and she proceeded to roll her eyes, put her hand up to her head motioning a gun and pulling the trigger. Pt didnt say anything else about this. Currently sleeping now with sitter at bedside.
[2020-08-15 07:02] LABS: Glucose Point of Care 221 mg/dL (70-110)
[2020-08-15] MEDS: duloxetine 30 mg Capsule PO (09:25)
[2020-08-15] MEDS: metoprolol tartrate 25 mg Tablet PO ×2 (09:25→21:37)
[2020-08-15 10:46] LABS: Glucose Point of Care 265 mg/dL (70-110)
--- NOTE | 2020-08-15 12:25 | PC.NURSE ---
Patient escorted off unit with Amisha to attend court hearing.
--- NOTE | 2020-08-15 13:45 | PC.NURSE ---
Patient back to floor from court hearing.
--- NOTE | 2020-08-15 13:47 | P.PN_ITS ---
Subjective Subjective: Interval history: No acute event overnight.Vitals :Stable Medications: Reviewed: Yes Medication Review Details: Generic Name Dose Route Start Last Admin Trade Name Freq PRN Reason Stop Dose Admin Acetaminophen 650 mg 07/22/20 21:48 08/03/20 17:29 Acetaminophen 32 5 Mg Tablet PO 650 mg Q6H PRN Administration Mild/Mod Pain Or Temp >/= 101 Allopurinol 300 mg 07/23/20 09:00 08/09/20 10:33 Allopurinol 300 Mg Tablet PO 300 mg DAILY JAMAR Administration Apixaban 5 mg 07/22/20 22:00 08/09/20 10:46 Apixaban 5 Mg Ta blet PO Not Given Q12H JAMAR Ascorbic Acid 500 mg 07/23/20 09:00 08/09/20 10:45 Ascorbic Acid 50 0 Mg Tablet PO Not Given BID [facility] Atorvastatin Calci um 80 mg 07/23/20 09:00 08/09/20 10:32 Atorvastatin 40 Mg Tablet PO 80 mg DAILY JAMAR Administration Clopidogrel Bisulf ate 75 mg 07/23/20 09:00 08/09/20 10:33 Clopidogrel 75 M g Tablet PO 75 mg DAILY JAMAR Administration Duloxetine HCl 30 mg 08/01/20 11:49 08/09/20 10:33 Duloxetine 30 Mg Capsule PO 30 mg DAILY JAMAR Administration Hydrochlorothiazid e 25 mg 07/23/20 06:00 08/09/20 06:06 Hydrochlorothiaz connie 25 Mg Tablet PO 25 mg QAM JAMAR Administration Insulin Aspart 30 unit 07/30/20 18:00 08/09/20 14:03 Insulin Aspart 1 00 Unit/1 Ml SUBCUT 30 unit TIDWM JAMAR Administration Insulin Glargine 60 unit 07/29/20 21:00 08/08/20 20:58 Insulin Glargine 100 Units/1 Ml SUBCUT 60 unit BEDTIME JAMAR Administration Levetiracetam 500 mg 07/22/20 22:35 08/09/20 10:46 Levetiracetam 50 0 Mg Tablet PO Not Given Q12H JAMAR Lisinopril 10 mg 07/23/20 09:00 08/09/20 10:34 Lisinopril 10 Mg Tablet PO 10 mg DAILY JAMAR Administration Metoprolol Tartrat e 37.5 mg 07/23/20 09:00 08/09/20 10:34 Metoprolol Tartr ate 25 Mg Tablet PO 37.5 mg BID JAMAR Administration Pantoprazole Sodiu m 40 mg 07/23/20 09:00 08/09/20 10:[address] 40 Mg Tablet PO Not Given DAILY JAMAR Fluticasone/Salmet eben 1 puff 07/22/20 21:48 08/05/20 20:10 Fluticasone-Salm eterol 100-50 Disk us INHALATION Not Given BID.RESPIRATORY S CH Sodium Chloride 1 spray 08/06/20 10:34 08/08/20 08:49 Saline Nasal Spr ay 44ml Btl NASAL 1 spray PRN PRN Administration DRYNESS Spironolactone 50 mg 07/23/20 06:00 08/09/20 06:06 Spironolactone 2 5 Mg Tablet PO 50 mg QAM JAMAR Administration Tizanidine HCl 6 mg 07/22/20 22:42 07/23/20 01:09 Tizanidine 4 Mg Tablet PO 6 mg BEDTIME PRN Administration muscle spasticity Zinc Gluconate 50 mg 07/23/20 09:00 08/09/20 10:45 Zinc Gluconate 5 0 Mg Tablet PO Not Given DAILY JAMAR Vitals/I&O/Wt Last Vital Signs Temp 98.0 F 08/15/20 11:38 Pulse 60 08/15/20 11:38 Resp 16 08/15/20 11:38 BP 122/76 08/15/20 11:38 Pulse Ox 96 08/15/20 11:38 08/14/20 08/15/20 08/15/20 22:59 06:59 14:59 Intake Total 300 / 780 200 / 980 240 / 240 Balance 300 / 780 200 / 980 240 / 240 Physical Exam Narrative: EXAM NARRATIVE: Alert and awake HENMT: COMMON NORMALS: normocephalic and atraumatic HEAD & SCALP: normocephalic and atraumatic Chest: CHEST: Yes Symmetrical chest wall rise Resp: COMMON NORMALS: normal respiratory effort and clear to auscultation bilaterally EFFORT & INSPECTION: Yes symmetric chest movement AUSCULTATION: clear to auscultation bilaterally Cardio: COMMON NORMALS: regular rate, regular rhythm, S1 normal heart sound present, S2 normal heart sound present, No gallops present (Cardio), No murmurs present (Cardio), No rub (Cardio) and Peripheral pulses 2+ throughout RATE: regular rate RHYTHM: regular rhythm HEART SOUNDS: S1 normal heart sound present and S2 normal heart sound present PERIPHERAL PULSES: Peripheral pulses 2+ throughout GI: COMMON NORMALS: Normal to inspection, nondistended, normoactive bowel sounds present, Soft to palpation, non-tender, No hepatosplenomegaly present and no masses AUSCULTATION: Yes normoactive bowel sounds PALPATION: Yes Soft to palpation and Yes No hepatosplenomegaly present RECTAL EXAM: deferred Extremity: COMMON NORMALS: no clubbing, cyanosis or edema and no pedal edema Data : 07/27/20 03:15 07/27/20 03:15 A&P Assessment and plan (1) Acute delirium: She is now able to ambulate a little and overall appears mental status does not appear is improving any further. She is adamant about leaving home, but appears to persevere on the safety of her cats and appears not to even acknowledge that there is a concern about her safety. She ignores any attempts to discuss this or redirects to topic of concern - going home and feeding the cats. Her safety does not appear to be an issue that exists in her mind despite multiple prior discussions. Arrangements are underway for guardianship and placement. Appreciate SS updates. She appears to be recovering well from COVID 19 and has not been requiring oxygen (one recorded value appears may have been spurious). Her isolation may now be discontinued. We are confirming with psychiatry if additional supportive care may be continued on psychiatric unit pending above arrangements. Otherwise may continue on medical floor. Continue to encourage adherence with her medicines. Encourage oral intake. Added protein shakes. If she may let us know what foods she likes, perhaps we can request for those. 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 Doing well on RA. DC isolation. Consideration is given to additional supportive care on neuropsychiatric unit to provide a little less restrictive environment, better interaction and possibility of observation while pending guardianship and further living arrangements. This is being discussed w SS and NPU team. -received remdisivir over 2 days, thereafter refused treatment -s/p empiric ceftriaxone course -Vitamin C, zinc -Advair albuterol Status: Acute (3) Metabolic encephalopathy: Multifactorial as above. Status: Acute (4) Recurrent falls: PT OT Status: Acute (5) Essential hypertension: At goal. Continue home blood pressure medications. Status: Acute (6) Diabetes mellitus with neuropathy: Continue glucose monitoring. 60 units Lantus and pre meal insulin 30 units. Status: Acute Qualifiers: Diabetes mellitus joint terminal attack controller insulin use: with snf use Diabetes mellitus type: type 2 Qualified Code(s): E11.40 - Type 2 diabetes mellitus with diabetic neuropathy, unspecified; Z79.4 - USP (current) use of insulin (7) Mixed hyperlipidemia: Continue home medication Status: Acute (8) Poor social situation: -Both parents were patient's caregivers -Especially after her strokes a year ago and recurrent strokes, she has had decline in her cognitive functioning, physical deconditioning, will need care home placement -There have been many concerns for her poor social situation as outpatient by PCP, has had ER visits for this -Her mother is on hospice, currently at [facility], with COVID-19 -Father has severe dementia, with COVID-19 , unable to be her stevedore dock -she is insistent on returning home, however does not appear to have capacity to fully understand all aspects of her decision of returning home. Status: Acute (9) Multinodular thyroid: Will require outpatient follow-up Status: Acute (10) Acute embolic stroke: Continue Eliquis, statin, aspirin Status: Acute (11) Right humeral fracture: Appears stable on XR 07/23. She had declined a sling. Consider sling symptomatically if she will allow. Follow-up with primary care provider after discharge. Status: Acute (12) DELORIS (acute kidney injury): Avoid nephrotoxins. Status: Acute (13) Hyperkalemia: Resolved. Status: Acute (14) Hyponatremia: improved Status: Acute (15) Bilateral pneumonia: Well on RA Status: Acute (16) Hypomagnesemia: Resolved Status: Acute Additional A&P Information Assessment and plan (1) Acute delirium: She is now able to ambulate a little and overall appears mental status does not appear is improving any further. She is adamant about leaving home, but appears to persevere on the safety of her cats and appears not to even acknowledge that there is a concern about her safety. She ignores any attempts to discuss this or redirects to topic of concern - going home and feeding the cats. Her safety does not appear to be an issue that exists in her mind despite multiple prior discussions. Arrangements are underway for guardianship and placement. Appreciate SS updates. She appears to be recovering well from COVID 19 and has not been requiring oxygen (one recorded value appears may have been spurious). Her isolation may now be discontinued. We are confirming with psychiatry if additional supportive care may be continued on psychiatric unit pending above arrangements. Otherwise may continue on medical floor. Continue to encourage adherence with her medicines. Encourage oral intake. Added protein shakes. If she may let us know what foods she likes, perhaps we can request for those. 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 Doing well on RA. DC isolation. Consideration is given to additional supportive care on neuropsychiatric unit to provide a little less restrictive environment, better interaction and possibility of observation while pending guardianship and further living arrangements. This is being discussed w SS and NPU team. -received remdisivir over 2 days, thereafter refused treatment -s/p empiric ceftriaxone course -Vitamin C, zinc -Advair albuterol Status: Acute (3) Metabolic encephalopathy: Multifactorial as above. Status: Acute (4) Recurrent falls: PT OT Status: Acute (5) Essential hypertension: At goal. Continue home blood pressure medications. Status: Acute (6) Diabetes mellitus with neuropathy: Continue glucose monitoring. 60 units Lantus and pre meal insulin 30 units. Status: Acute Qualifiers: Diabetes mellitus type: type 2 Diabetes mellitus snf insulin use: with joint terminal attack controller use Qualified Code(s): E11.40 - Type 2 diabetes mellitus with diabetic neuropathy, unspecified; Z79.4 - emt intermediate (current) use of insulin (7) Mixed hyperlipidemia: Continue home medication Status: Acute (8) Poor social situation: -Both parents were patient's caregivers -Especially after her strokes a year ago and recurrent strokes, she has had decline in her cognitive functioning, physical deconditioning, will need care home placement -There have been many concerns for her poor social situation as outpatient by PCP, has had ER visits for this -Her mother is on hospice, currently at [facility], with COVID-19 -Father has severe dementia, with COVID-19 , unable to be her stevedore dock -she is insistent on returning home, however does not appear to have capacity to fully understand all aspects of her decision of returning home. Status: Acute (9) Multinodular thyroid: Will require outpatient follow-up Status: Acute (10) Acute embolic stroke: Continue Eliquis, statin, aspirin Status: Acute (11) Right humeral fracture: Appears stable on XR 07/23. She had declined a sling. Consider sling symptomatically if she will allow. Follow-up with primary care provider after discharge. Status: Acute (12) DELORIS (acute kidney injury): Avoid nephrotoxins. Status: Acute (13) Hyperkalemia: Resolved. Status: Acute (14) Hyponatremia: improved Status: Acute (15) Bilateral pneumonia: Well on RA Status: Acute (16) Hypomagnesemia: Resolved No significant changes today. Continue current management. Waiting for placement to a long-term facility. Discussed with multidisciplinary team and case management. We are still waiting for court date and hearing regarding guardianship. According to the psychiatric evaluation patient lacks clear capacity. [facility] facility is approved. Discussed with the patient. Updated her on the process and the plan of care. Attestations Medical Necessity Statement*: Patient is awaiting court date Coding Level of Care Code Acute [employer] Stret[employer] for g Fwd Exam Detailed Diagnoses Acute delirium R41.0 Pneumonia due to COVID-19 virus U07.1; J12.89 Metabolic encephalopathy G93.41 Recurrent falls R29.6 Essential hypertension I10 Diabetes mellitus with neuropathy E11.40; Z79.4 Diabetes mellitus snf insulin use: with snf use Diabetes mellitus type: type 2 Mixed hyperlipidemia E78.2 Poor social situation Z65.9 Multinodular thyroid E04.2 Acute embolic stroke I63.9 Right humeral fracture S42.301A DELORIS (acute kidney injury) N17.9 Hyperkalemia E87.5 Hyponatremia E87.1 Bilateral pneumonia J18.9 Hypomagnesemia E83.42
--- NOTE | 2020-08-15 13:48 | PM.DCS ---
Discharge Providers Date of Admission: 07/22/20 19:48 Date of Discharge: August 15, 2020 Attending Provider at Admission: Raad Chung MD Attending Provider at Discharge: Juan Manuel Omalley MD Primary Care Provider: Neftaly Brambila MD Diagnoses at Discharge Discharge Diagnosis (1) Acute delirium: Permanent problem details: Resolved (2) Pneumonia due to COVID-19 virus: Permanent problem details: Resolved (3) Metabolic encephalopathy: Permanent problem details: Resolved (4) Recurrent falls: Permanent problem details: Resolved (5) Essential hypertension: (6) Diabetes mellitus with neuropathy: Qualifiers: Diabetes mellitus tank terminal gauger insulin use: with usp use Diabetes mellitus type: type 2 Qualified Code(s): E11.40 - Type 2 diabetes mellitus with diabetic neuropathy, unspecified; Z79.4 - long term care administrator (current) use of insulin (7) Multinodular thyroid: Reason for Visit Reason for Visit: WEAKNESS; COVID EXPOSURE; NAUSEA Hospital Course Hospital Course Hilda Wallace is a 60 year old female left upper, left parietal, left occipital CVA, with residual productive aphasia, history of signing out AMA 08/04/2019 after stroke, history of history of hypertension, history of insulin-dependent type 2 diabetes mellitus, poorly controlled type 2 diabetes mellitus with last A1c C 13.7, history of right humeral fracture, history of recurrent falls, history of recurrent confusion, discharged 07/10/2020 for altered mental status likely secondary to recurrent CVA, concerning for embolic event, possible seizures, humeral fracture, high risk of metabolic encephalopathy from temporal lobe encephalomalacia who presents to [facility] due to confusion, fevers she was admitted for the management of ac encephalopathy 2/2 to COVID PNA as well as PNA 2/2 COVID 19.' Delirium likely Secondary to COVID-19 pneumonia,had improved likely multifactorial in the setting of history of CVA, embolic strokes, seizures, likely may have developed vascular dementia additionally has 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. LP does not show any significant signs of bacterial or viral meningitis.She was kept on haldol as needed for anxiety, delirium as well as on 1:1 sitter which was later discontinued. Pneumonia due to COVID-19 virus: received remdisivir over 2 days, thereafter refused treatment was on Decadron which was changed to po prednisone 40mg qd today ,and was tapered off.She was on empiric ceftriaxone course along with other supportive covid cocktail (Vitamin C, zinc, Advair albuterol ) at the time of discharge she was on R.A. Due to her Poor social situation: Both parents were patient's caregivers.-There is been many concerns for her poor social situation as outpatient by PCP, has had ER visits for this. 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 Especially after her strokes a year ago and recurrent strokes, she has had decline in her cognitive functioning, physical deconditioning,penitentiary placement was initiated but the patient was insistent on returning home, however does not appear to have capacity to fully understand all aspects of her decision of returning home. Psychiatry consult was done for assessment of capacity.Per Psychiatry she lacks clear capacity to assess the risks, benefits and alternatives of the decisions in front of her in a way that would allow her to understand and come to appropriate/rational conclusions related to the interventions and recommendations being presented to her.Guardianship was pursed for safe placement and post achieving the guardianship she was placed in [facility].During the hospital stay patient did used to refuse her number of medications. At the time of discharge she was in stable condition. Physical Exam Narrative: EXAM NARRATIVE: Alert and awake Const: COMMON NORMALS: patient oriented x3 HENMT: COMMON NORMALS: normocephalic and atraumatic HEAD & SCALP: normocephalic and atraumatic Chest: COMMONS NORMALS: normal inspection of the chest CHEST: Yes Symmetrical chest wall rise Resp: COMMON NORMALS: normal respiratory effort and clear to auscultation bilaterally EFFORT & INSPECTION: Yes symmetric chest movement AUSCULTATION: clear to auscultation bilaterally Cardio: COMMON NORMALS: regular rate, regular rhythm, S1 normal heart sound present, S2 normal heart sound present, No gallops present (Cardio), No murmurs present (Cardio), No rub (Cardio) and Peripheral pulses 2+ throughout RATE: regular rate RHYTHM: regular rhythm HEART SOUNDS: S1 normal heart sound present and S2 normal heart sound present PERIPHERAL PULSES: Peripheral pulses 2+ throughout GI: COMMON NORMALS: Normal to inspection, nondistended, normoactive bowel sounds present, Soft to palpation, non-tender, No hepatosplenomegaly present and no masses AUSCULTATION: Yes normoactive bowel sounds PALPATION: Yes Soft to palpation and Yes No hepatosplenomegaly present RECTAL EXAM: deferred Extremity: COMMON NORMALS: no clubbing, cyanosis or edema and no pedal edema Neuro: COMMON NORMALS: patient oriented x3 Discharge Data Data Completed and Pending: Completed Studies During Hospitalization Category Date Time Status CT angio chest PE protcl [id number] Stat Cat Scan 07/22/20 16:56 Completed XR chest 1V nely ble [id number] Routine Exams 07/23/20 07:00 Completed XR chest 1V nely ble [id number] Stat Exams 07/22/20 14:58 Completed XR humerus RT 730 60 Routine Exams 07/23/20 11:03 Completed Pending at discharge Category Date Time Status Lymes Disease Ant ibodies CSF Stat Lab 07/22/20 19:41 Received Sputum Culture an d Gram Stain Stat Lab 07/22/20 21:48 Uncollected Labs from last 24 hours 08/15/20 08/15/20 08/14/20 10:37 06:55 20:22 POC Glucose 265 H 221 H 359 H Vitals: Last Vital Signs Temp 98.0 F 08/15/20 11:38 Pulse 60 08/15/20 11:38 Resp 16 08/15/20 11:38 BP 122/76 08/15/20 11:38 Pulse Ox 96 08/15/20 11:38 Discharge Plan Discharge Patient Disposition: SNF w Plan Readm Condition: Stable Prescriptions: New Lantus Solostar U-100 Insulin 100 unit/mL (3 mL) insulin pen 60 unit SUBCUT QPM Qty: 3 RF: 0 insulin aspart U-100 100 unit/mL (3 mL) insulin pen 20 unit SUBCUT .TID with MEAL Qty: 3 RF: 0 Continued hydrochlorothiazide 50 mg tablet 50 mg PO QAM Qty: 90 RF: 3 tramadol 50 mg tablet 50 mg PO Q6H PRN (Reason: pain) Qty: 120 RF: 2 duloxetine 60 mg capsule,delayed release(DR/EC) 60 mg PO DAILY Qty: 90 RF: 3 allopurinol 300 mg tablet 300 mg PO DAILY Qty: 90 RF: 0 spironolactone 50 mg tablet 50 mg PO QAM 30 Days Qty: 30 RF: 2 lisinopril 10 mg tablet 10 mg PO DAILY RF: 0 tizanidine 6 mg capsule 6 mg PO BEDTIME PRN (Reason: muscle spasticity) RF: 0 hydrocodone-acetaminophen 5-325 mg tablet 1 tab PO Q4H PRN (Reason: Pain) RF: 0 atorvastatin 80 mg tablet 80 mg PO DAILY RF: 0 clopidogrel 75 mg tablet 75 mg PO DAILY RF: 0 metoprolol tartrate 25 mg tablet 37.5 mg PO BID RF: 0 levetiracetam 500 mg Tablet 500 mg PO Q12H Qty: 30 RF: 0 pantoprazole 40 mg Tablet,Delayed Release (Dr/Ec) 40 mg PO DAILY Qty: 30 RF: 0 Eliquis 5 mg tablet 5 mg PO Q12H Qty: 60 RF: 0 Discontinued insulin aspart U-100 [Novolog Flexpen U-100 Insulin] 100 unit/mL (3 mL) insulin pen 60 unit SUBCUT TID Qty: 45 RF: 12 Discharge Orders: Discharge Order (Routine); Ordered 08/16/20 Ordered By: Juan Manuel Omalley Discharge Diet: Diabetic Discharge Activity: Resume usual activity Discharge Attestations Time Spent in Discharge Care*: greater than 30 min Specific Discharge Activities: educating patient, discussing with pcp/other providers, discussing with nurse case management/social workers/dc planners, documenting/other paperwork and evaluating patient/reviewing data Status at Discharge: Cognitive status at discharge: cognitively intact, Behavioral status at discharge: cooperative, Functional status at discharge: independent ambulation Overall status at discharge: patient is back to baseline Quality Metrics Clinical Quality Measures During this hospital stay, did patient experience: None Coding Level of Care Code Acute [place] [employer]ist for [facility] Fwd Diagnoses Acute delirium R41.0 Pneumonia due to COVID-19 virus U07.1; J12.89 Metabolic encephalopathy G93.41 Recurrent falls R29.6 Essential hypertension I10 Diabetes mellitus with neuropathy E11.40; Z79.4 Diabetes mellitus usp insulin use: with usp use Diabetes mellitus type: type 2 Multinodular thyroid E04.2
[2020-08-15 17:01] LABS: Glucose Point of Care 111 mg/dL (70-110)
--- NOTE | 2020-08-15 21:57 | PC.NURSE ---
Patient refused bedtime accucheck and bedtime insulin.
[2020-08-16 00:16] VITALS: BP 103/62; PULSE 62; RESP 18; TEMP 36.6; O2SAT 96
[2020-08-16 03:46] VITALS: BP 101/58; PULSE 67; RESP 18; TEMP 36.9; O2SAT 98
[2020-08-16 04:00] VITALS: BP 101/58; PULSE 67; RESP 18; TEMP 36.9
[2020-08-16 06:14] LABS: Glucose Point of Care 264 mg/dL (70-110)
[2020-08-16 08:00] VITALS: BP 123/65; PULSE 83; RESP 16; TEMP 36.4; O2SAT 98
[2020-08-16] MEDS: duloxetine 30 mg Capsule PO (08:45)
[2020-08-16] MEDS: metoprolol tartrate 25 mg Tablet PO (09:27)
[2020-08-16 11:15] VITALS: BP 155/70; PULSE 63; RESP 20; TEMP 36.8; O2SAT 96
--- NOTE | 2020-08-16 11:21 | PC.SOCIAL ---
IM follow up discussed with now appointed Guardian Brenton Hsu. He verbalized understanding and feels okay to proceed with discharge to [facility] once determined appropriate.
[2020-08-16 11:59] LABS: Glucose Point of Care 225 mg/dL (70-110)
[2020-08-16 14:24] VITALS: BP 155/70; PULSE 63; RESP 20; TEMP 36.8; O2SAT 96
== END 2020-08-16 14:25 | disposition skilled nursing facility (03) | DRG 177 ==
LOC: ER 14:46 → MEDSURG 20:04
PROVIDERS: Internal Medicine; Student in an Organized Health Care Education/Training Program; Admitting Provider Family Medicine; Emergency Provider Family Medicine; PCP Internal Medicine; Visit Provider Internal Medicine
DX: U07.1 COVID-19 (principal); J12.89 Other viral pneumonia; G93.41 Metabolic encephalopathy; J15.9 Unspecified bacterial pneumonia; F05 Delirium due to known physiological condition; N17.9 Acute kidney failure, unspecified; E87.1 Hypo-osmolality and hyponatremia; I69.920 Aphasia following unspecified cerebrovascular disease; I10 Essential (primary) hypertension; E11.65 Type 2 diabetes mellitus with hyperglycemia; E11.40 Type 2 diabetes mellitus with diabetic neuropathy, unspecified; Z79.4 Long term (current) use of insulin; R29.6 Repeated falls; G47.10 Hypersomnia, unspecified; E78.2 Mixed hyperlipidemia; G47.33 Obstructive sleep apnea (adult) (pediatric); Z87.891 Personal history of nicotine dependence; G93.89 Other specified disorders of brain; I69.398 Other sequelae of cerebral infarction; E04.2 Nontoxic multinodular goiter; S42.211D Unspecified displaced fracture of surgical neck of right humerus, subsequent encounter for fracture with routine healing; X58.XXXD Exposure to other specified factors, subsequent encounter; E87.5 Hyperkalemia; E83.42 Hypomagnesemia; I69.919 Unspecified symptoms and signs involving cognitive functions following unspecified cerebrovascular disease; F01.50 Vascular dementia, unspecified severity, without behavioral disturbance, psychotic disturbance, mood disturbance, and anxiety; F32.9 Major depressive disorder, single episode, unspecified; Z79.891 Long term (current) use of opiate analgesic; Z79.02 Long term (current) use of antithrombotics/antiplatelets; Z79.01 Long term (current) use of anticoagulants
CPT/HCPCS: 12345; 36415; 36416; 36600; 62270; 71045; 71275; 73060; 80053; 80061; 80202; 80306; 80500; 81001; 82042; 82550; 82803; 82945; 82962; 83036; 83605; 83615; 83735; 83880; 83916; 84100; 84145; 84157; 84443; 84484; 85025; 85378; 85610; 86140; 86403; 86592; 86617; 86787; 87040; 87070; 87075; 87086; 87205; 87327; 87426; 87530; 87635; 87641; 87804; 89050; 92523; 92610; 93005; 94640; 96372; 96375; 97110; 97161; 97530; 99283; J0131; J0456; J0696; J1100; J1630; J1815 ×2; J2405; J3370; J3475; J3535; J7030; J7050; J7512; Q9967

== ENCOUNTER 2021-10-01 10:26 | Inpatient (IN) | payer MEDICARE, SELFPAY ==
[2021-10-01] VITALS (9 sets, daily range): BP systolic 140–208; BP diastolic 65–115; PULSE 63–73; RESP 16–20; TEMP 36.7; O2SAT 92–98; BMI 47.0
--- NOTE | 2021-10-01 10:32 | ED_ITS ---
HPI - Abdominal Pain General: Chief Complaint: General Medical Stated Complaint: ABDOMINAL PAIN Time Seen by Provider: 10/01/21 10:31 History of Present Illness: 61-year-old female presents to the emergency room with chief complaint of abdominal pain. Later found that she had a previous stroke which affects her communication she is can word salad. Is difficult to get history from her she complains of epigastric discomfort with some more pain on the right side she tells me she previously had a cholecystectomy which were able to confirm on imaging. She states she has had this for 14 days no chest pain or shortness of breath eating and drinking make it worse. MD elicited complaint: abdominal pain Onset (ago): day(s) Pain Consistency: constant Location: Epigastric and RUQ Severity: moderate Quality: cramping Radiation: R flank and back Exacerbating factors: nothing Relieving factors: nothing Associated Symptoms: Reports GI cramping, nausea and poor appetite; Denies anorexia, belching, bloating, change in bowel habits, change in stool character, chills, coffee ground emesis, constipation, diarrhea, dyspepsia, dysuria, excessive flatus, fever(s), heartburn, hematochezia, hematuria, hemate mesis, fecal incontinence, loose stools, melena, syncope and vomiting Review of Systems Const: Denies: fever(s) or chills ENMT: Denies: throat pain, ear or mastoid pain, nasal discharge or nasal co ngestion Card: Denies: syncope Resp: Denies: dyspnea, productive cough or non-productive cough GI: Reports: nausea and GI cramping; Denies: vomiting, hematemesis, coffee ground emesis, heartburn, diarrhea, con stipation, bloating, belching, excessive flatus, fecal incontinence, change in bowel habits, change in stool character, hematochezia or melena : Denies: dysuria or hematuria Skin/Breast: Denies: rash or pruritus PFSH ED PFSH: Medical History Acute hypersomnolence disorder Diabetes mellitus with neuropathy History of CVA (cerebrovascular accident) Mixed hyperlipidemia LEROY on CPAP Surgical History History of bursectomy History of cholecystectomy History of colonoscopy History of hysterectomy for indication other than malignancy History of nasal sinusotomy History of repair of rotator cuff History of tonsillectomy Hx of adenoidectomy Status post anal fissurectomy Family History Mother CAD (coronary artery disease) Other Asthma Cancer Diabetes Heart disease Hypertension Stroke Social History Smoking and tobacco status: former smoker Alcohol intake: current Alcohol intake frequency: few times a month History of recent travel: No Physical Exam Const: GENERAL APPEARANCE: cooperative and comfortable ORIENTATION/CONSCIOUSNESS: Yes oriented to person, Yes oriented to place and Yes oriented to time HENMT: COMMON NORMALS: normocephalic, atraumatic and hearing grossly normal bilaterally HEAD & SCALP: normocephalic and atraumatic Neck/C-Spine: COMMON NORMALS: no JVD Resp: COMMON NORMALS: normal respiratory effort, No retractions, No use of accessory muscles and clear to auscultation bilaterally AUSCULTATION: clear to auscultation bilaterally Cardio: COMMON NORMALS: no JVD, regular rate, regular rhythm and No murmurs present (Cardio) RATE: regular rate RHYTHM: regular rhythm GI: COMMON NORMALS: Soft to palpation and No hepatosplenomegaly present AUSCULTATION: Yes normoactive bowel sounds PALPATION: Yes Soft to palpation, Yes Tenderness to palpation present (GI) (Epigastric right upper quadrant), No Guarding due to palpation present (GI) and Yes No hepatosplenomegaly present Extremity: COMMON NORMALS: normal to inspection, capillary refill normal, no clubbing, cyanosis or edema, no calf tenderness and no pedal edema Neuro: SENSORIUM/ORIENTATION: Yes oriented to person, Yes oriented to place and Yes oriented to time Skin: COMMON NORMALS: no rashes or lesions noted GENERAL SKIN EXAM: no rashes or lesions noted Course Vital Signs: Vital signs: Vital Signs Temperature 98.1 F 10/01/21 10:46 Pulse Rate 64 10/01/21 13:38 Respiratory Rate 20 H 10/01/21 13:38 Blood Pressure 196/88 10/01/21 13:38 Pulse Oximetry 98 10/01/21 13:38 MDM - Abdominal Pain Medical Decision Making CT shows acute pancreatitis consistent with her lab findings. Ultrasound ordered patient has previously had a cholecystectomy will evaluate common bile duct patient has mild symptoms at this point n.p.o. IV fluids nausea and pain medications assessed with Dr. Echeverria orders written Medical Records I reviewed the patient's medical records. Lab Data I reviewed the patient's lab results. : 10/01/21 11:12 10/01/21 11:12 Labs/Radiology: Radiology Impressions Abdomen/Pelvis CT 10/01/21 11:21 IMPRESSION: 1. Small amount of inflammatory stranding about the pancreatic head suspicious for pancreatitis. Recommend correlation with pancreatic enzymes. 2. Prior cholecystectomy and hysterectomy. 3. Normal renal parenchymal enhancement. No hydronephrosis. Mild renal atrophy. 4. Sigmoid diverticulosis. No evidence of acute diverticulitis. 5. Normal caliber abdominal aorta. 6. Mild hepatomegaly with diffuse fatty infiltration. Laboratory Results WBC 13.6 10^3/uL (4.0-10.0) H 10/01/21 11:12 RBC 4.41 10^6/uL (4.1-5.3) 10/01/21 11:12 Hgb 11.6 g/dL (11.5-15.3) 10/01/21 11:12 Hct 36.5 % (37.0-47.0) L 10/01/21 11:12 MCV 82.8 fl (81-99) 10/01/21 11:12 MCH 26.3 pg (28.0-34.0) L 10/01/21 11:12 MCHC 31.8 g/dL (30.0-36.0) 10/01/21 11:12 RDW 13.6 % (12.1-15.1) 10/01/21 11:12 Plt Count 316 10^3/cmm (130-400) 10/01/21 11:12 MPV 9.8 fL (7.4-10.4) 10/01/21 11:12 Neut % (Auto) 79.3 % 10/01/21 11:12 Lymph % (Auto) 13.2 % 10/01/21 11:12 [place] % (Auto) 5.4 % 10/01/21 11:12 Eos % (Auto) 1.2 % 10/01/21 11:12 Baso % (Auto) 0.5 % 10/01/21 11:12 Neut # (Auto) 10.77 10^3/uL (1.8-7.7) H 10/01/21 11:12 Lymph # (Auto) 1.8 10^3/uL (0.8-4.8) 10/01/21 11:12 [place] # (Auto) 0.7 10^3/uL (0.2-0.9) 10/01/21 11:12 Eos # (Auto) 0.2 10^3/uL (0.0-0.8) 10/01/21 11:12 Baso # (Auto) 0.1 10^3/uL (0.0-0.1) 10/01/21 11:12 Nucleated RBC % (auto) 0 % 10/01/21 11:12 Nucleated RBCs # 0.0 /100WBC 10/01/21 11:12 Sodium 127 mmol/L (136-145) L 10/01/21 11:12 Potassium 4.2 mmol/L (3.5-5.1) 10/01/21 11:12 Chloride 89 mmol/L (98-107) L 10/01/21 11:12 Carbon Dioxide 27 mmol/L (22-29) 10/01/21 11:12 Anion Gap 15.2 (5-19) 10/01/21 11:12 BUN 16 mg/dL (8-23) 10/01/21 11:12 Creatinine 0.8 mg/dL (0.5-0.9) 10/01/21 11:12 GFR Calculation 72.9 mL/min (90-130) L 10/01/21 11:12 Glucose 356 mg/dL (65-115) H 10/01/21 11:12 Calculated Osmolality 279 mOsm/kg (285-295) L 10/01/21 11:12 Calcium 8.8 mg/dL (8.5-10.5) 10/01/21 11:12 Total Bilirubin 0.3 mg/dL (0.15-1.2) 10/01/21 11:12 AST 13 U/L (0-32) 10/01/21 11:12 ALT 15 U/L (0-33) 10/01/21 11:12 Alkaline Phosphatase 117 IU/L (35-105) H 10/01/21 11:12 Total Protein 6.8 g/dL (6.6-8.7) 10/01/21 11:12 Albumin 3.8 g/dL (3.5-5.2) 10/01/21 11:12 Globulin 3.0 g/dL (1.3-4.6) 10/01/21 11:12 Lipase 997 U/L (13-60) H 10/01/21 11:12 Urine Color Yellow (Yellow) 10/01/21 11:24 Urine Appearance Clear (CLEAR) 10/01/21 11:24 Urine pH 5 (5-7) 10/01/21 11:24 Ur Specific [place] 1.015 (1.005-1.030) 10/01/21 11:24 Urine Protein 3+ (Negative) H 10/01/21 11:24 Urine Glucose (UA) 1+ (Normal) H 10/01/21 11:24 Urine Ketones Negative (Negative) 10/01/21 11:24 Urine Blood Neg (Negative) 10/01/21 11:24 Urine Nitrate Negative (Negative) 10/01/21 11:24 Urine Bilirubin Neg (Negative) 10/01/21 11:24 Urine Urobilinogen Norm mg/dL (Negative) 10/01/21 11:24 Ur Leukocyte Esterase Negative (Negative) 10/01/21 11:24 Urine RBC None /hpf (0-2) 10/01/21 11:24 Urine WBC Rare /hpf (0-5) 10/01/21 11:24 Ur Squamous Epith Cells 10-15 /hpf (0-5) H 10/01/21 11:24 Amorphous Sediment Not Reportable 10/01/21 11:24 Urine Bacteria Trace /hpf (NONE) 10/01/21 11:24 Discharge Plan Discharge Patient Disposition: Admitted As Inpatient Clinical Impression: Acute pancreatitis, Mental and behavioral problems with communication (including speech) Condition: Stable Prescriptions: No Action hydrochlorothiazide 50 mg tablet 50 mg PO QAM Qty: 90 3RF tramadol 50 mg tablet 50 mg PO Q6H PRN (Reason: pain) Qty: 120 2RF duloxetine 60 mg capsule,delayed release(DR/EC) 60 mg PO DAILY Qty: 90 3RF allopurinol 300 mg tablet 300 mg PO DAILY Qty: 90 0RF spironolactone 50 mg tablet 50 mg PO QAM 30 Days Qty: 30 2RF lisinopril 10 mg tablet 10 mg PO DAILY 0RF tizanidine 6 mg capsule 6 mg PO BEDTIME PRN (Reason: muscle spasticity) 0RF hydrocodone-acetaminophen 5-325 mg tablet 1 tab PO Q4H PRN (Reason: Pain) 0RF atorvastatin 80 mg tablet 80 mg PO DAILY 0RF clopidogrel 75 mg tablet 75 mg PO DAILY 0RF metoprolol tartrate 25 mg tablet 37.5 mg PO BID 0RF levetiracetam 500 mg Tablet 500 mg PO Q12H Qty: 30 0RF pantoprazole 40 mg Tablet,Delayed Release (Dr/Ec) 40 mg PO DAILY Qty: 30 0RF Eliquis 5 mg tablet 5 mg PO Q12H Qty: 60 0RF Lantus Solostar U-100 Insulin 100 unit/mL (3 mL) insulin pen 60 unit SUBCUT QPM Qty: 3 0RF insulin aspart U-100 100 unit/mL (3 mL) insulin pen 20 unit SUBCUT .TID with MEAL Qty: 3 0RF Referrals: Neftaly Brambila MD [Primary Care Provider] - Coding Level of Care Code ED [employer] for [facility]
[2021-10-01 11:16] LABS: Basophils # 0.1 10^3/uL (0.0-0.1); Basophils % 0.5 %; Eosinophils # 0.2 10^3/uL (0.0-0.8); Eosinophils % 1.2 %; Hematocrit 36.5 % (37.0-47.0); Hemoglobin 11.6 g/dL (11.5-15.3); Lymphocytes # 1.8 10^3/uL (0.8-4.8); Lymphocytes % 13.2 %; Mean Corpuscular HGB Conc 31.8 g/dL (30.0-36.0); Mean Corpuscular Hemoglobin 26.3 pg (28.0-34.0); Mean Corpuscular Volume 82.8 fl (81-99); Mean Platelet Volume 9.8 fL (7.4-10.4); Monocytes # 0.7 10^3/uL (0.2-0.9); Monocytes % 5.4 %; Neutrophils # 10.77 10^3/uL (1.8-7.7); Neutrophils % 79.3 %; Nucleated Red Blood Cells % 0 %; Platelet Count 316 10^3/cmm (130-400); Red Blood Count 4.41 10^6/uL (4.1-5.3); Red Cell Distribution Width 13.6 % (12.1-15.1); White Blood Count 13.6 10^3/uL (4.0-10.0)
--- NOTE | 2021-10-01 11:21 | CT_ITS ---
WS: [id number] CT ABDOMEN PELVIS TECHNIQUE: Contrast-enhanced CT of the abdomen and pelvis with coronal and sagittal reformatted image s. CLINICAL INFORMATION: abd pain COMPARISON: None. DLP: 1981.[address] scans at [facility] use at least one of these dose optimization techniques: automated e xposure control; mA and/or kV adjustment per patient size (includes targeted exams where dose is matc hed to clinical indication); or iterative reconstruction. FINDINGS: Prior cholecystectomy. Hysterectomy. Mild hepatomegaly with mild diffuse fatty infiltration the liver .. Lung bases are well aerated. Coronary calcification. Normal spleen. Normal GE junction. Adrenal gl ands are normal. Bilateral renal cortical atrophy. Normal renal parenchymal enhancement. No hydroneph rosis. Pelvic phleboliths. Small cavernous hemangioma or focal fat along the falciform ligament. Normal caliber abdominal aorta. Mild aortic calcification. Small fat-containing umbilical hernia.Smal l amount of inflammatory stranding about the pancreatic head suspicious for pancreatitis. No fluid co llections. Portal vein and splenic vein are patent. Sigmoid diverticulosis. No evidence of acute diverticulitis. No evidence of small or large bowel obst ruction. Normal appendix in the RIGHT lower quadrant. No free fluid in the pelvis. CT/CT abdomen pelvis w con* [id number] IMPRESSION: 1. Small amount of inflammatory stranding about the pancreatic head suspicious for pancreatitis. Recommend correlation with pancreatic enzymes. 2. Prior cholecystectomy and hysterectomy. 3. Normal renal parenchymal enhancement. No hydronephrosis. Mild renal atrophy . 4. Sigmoid diverticulosis. No evidence of acute diverticulitis. 5. Normal caliber abdominal aorta. 6. Mild hepatomegaly with diffuse fatty infiltration.
[2021-10-01 11:38] LABS: Alanine Aminotransferase 15 U/L (0-33); Albumin Level 3.8 g/dL (3.5-5.2); Alkaline Phosphatase 117 IU/L (35-105); Anion Gap 15.2 (5-19); Aspartate Amino Transferase 13 U/L (0-32); Blood Urea Nitrogen 16 mg/dL (8-23); Calcium 8.8 mg/dL (8.5-10.5); Carbon Dioxide 27 mmol/L (22-29); Chloride 89 mmol/L (98-107); Glomerular Filtration Rate 72.9 mL/min (90-130); Glucose 356 mg/dL (65-115); Osmolality Calculated 279 mOsm/kg (285-295); Potassium 4.2 mmol/L (3.5-5.1); Sodium 127 mmol/L (136-145); Total Bilirubin 0.3 mg/dL (0.15-1.2); Total Protein 6.8 g/dL (6.6-8.7)
[2021-10-01 11:46] LABS: Lipase 997 U/L (13-60)
[2021-10-01 11:47] LABS: Add Urine Microscopic? YES; Bacteria Urine TRACE /hpf; Bilirubin Urine Neg (Negative); Blood Urine Neg (Negative); Glucose Urine UA 1+ (Normal); Ketones Urine Negative (Negative); Leukocyte Esterase Urine Negative (Negative); Nitrate Urine Negative (Negative); Protein Urine 3+ (Negative); Specific Gravity, Urine 1.015 (1.005-1.030); Urine Appearance Clear (CLEAR); Urine Color Yellow (Yellow); Urobilinogen Urine Norm (Negative); WBC Urine RARE /hpf (0-5); pH Urine 5 (5-7)
[2021-10-01] MEDS: iohexol 300 mg/mL 100 mL Btl IV (12:28)
--- NOTE | 2021-10-01 13:39 | PC.NURSE ---
Addendum entered by Staci Muñoz RN 10/01/21 13:39: PATIENT ALSO HAS HX OF STROKE AND WORD SALAD VERIFIED BY [facility] STAFF. Original Note: [facility] REPORT IS THAT PATIENT HAS BEEN COMPLAINING OF ABDOMINAL PAIN IN EPIGASTRIC AND LEFT UPPER QUADRANT.
--- NOTE | 2021-10-01 13:50 | US_ITS ---
WS: [id number] RIGHT UPPER QUADRANT ULTRASOUND HISTORY: RUQ abd pain, examine CBD COMPARISON: CT 10/01/2021. Study is very nondiagnostic due to body habitus. Liver: Not visualized in its entirety. Changes of hepatic steatosis. Extremely limited evaluation. Gallbladder: Prior cholecystectomy. CBD: Not visualized. Pancreas: Not visualized. Right kidney: Not well visualized. No ascites. US/US gall bladder [id number] IMPRESSION: 1. Nondiagnostic evaluation of the RIGHT upper quadrant due to body habitus. 2. Prior cholecystectomy.
[2021-10-01] MEDS: morphine 4 mg/mL SDV 1 mL IVP (14:59)
--- NOTE | 2021-10-01 17:27 | P.HP_ITS ---
Providers/Chief Complaint Admitting Physician: Gian Echeverria Primary Care Provider: Neftaly Brambila MD Chief Complaint: ABDOMINAL PAIN History of Present Illness Pleasant 61-year-old lady with history of CVA, with receptive aphasia is brought in from facility where she resides for assessment of abdominal pain, with findings consistent with acute pancreatitis in ER, with noted lipase elevation up to 997, with finding of small amount of inflammatory stranding around pancreatic head suspicious for pancreatitis, prior cholecystectomy, sigmoid diverticulosis, mild hepatomegaly with diffuse fatty infiltration noted on CT abdomen pelvis. Gallbladder ultrasound unfortunately nondiagnostic. She is unfortunately unable to provide any history due to severity of her aphasia. Review of Systems General: Reports: ROS unobtainable due to medical condition Medications/Allergies Home Medications Medication Instructions Recorded Confirmed Last Taken Type hydrochlorothiazide 50 mg tablet 50 mg PO QAM #90 tab 01/28/20 07/22/20 07/02/20 Rx tramadol 50 mg tablet 50 mg PO Q6H PRN #120 tab 03/27/20 07/22/20 Unknown Rx allopurinol 300 mg tablet 300 mg PO DAILY #90 tab 05/03/20 07/22/20 07/02/20 Rx duloxetine 60 mg capsule,delayed 60 mg PO DAILY #90 cap 05/03/20 07/22/20 07/02/20 Rx release lisinopril 10 mg tablet 10 mg PO DAILY 07/03/20 07/22/20 07/02/20 History tizanidine 6 mg capsule 6 mg PO BEDTIME PRN 07/03/20 07/22/20 Unknown History atorvastatin 80 mg tablet 80 mg PO DAILY 07/08/20 07/22/20 Unknown History clopidogrel 75 mg tablet 75 mg PO DAILY 07/08/20 07/22/20 Unknown History hydrocodone 5 mg-acetaminophen 325 1 tab PO Q4H PRN 07/08/20 07/22/20 Unknown History mg tablet metoprolol tartrate 25 mg tablet 37.5 mg PO BID 07/08/20 07/22/20 Unknown History apixaban 5 mg tablet (Eliquis) 5 mg PO Q12H #60 tab 07/10/20 07/22/20 Unknown Rx levetiracetam 500 mg tablet 500 mg PO Q12H #30 tab 07/10/20 07/22/20 Unknown Rx pantoprazole 40 mg tablet,delayed 40 mg PO DAILY #30 tab 07/10/20 07/22/20 Unknown Rx release spironolactone 50 mg tablet 50 mg PO QAM 30 Days #30 tab 07/20/20 07/22/20 Unknown Rx insulin aspart U-100 100 unit/mL 20 unit (0.2 mL) SUBCUT .TID with 08/15/20 Un known Rx (3 mL) subcutaneous pen MEAL #3 ml insulin glargine 100 unit/mL (3 60 unit (0.6 mL) SUBCUT QPM #3 ml 08/15/20 Unknown Rx mL) subcutaneous pen (Lantus Solostar U-100 Insulin) Allergies Allergy/AdvReac Type Severity Reaction Status Date / Time clarithromycin [From Biaxin] Allergy nausea Verified 07/19/20 13:56 clindamycin Allergy shock Verified 07/19/20 13:56 diclofenac Allergy swelling Verified 07/19/20 13:56 enalapril Allergy unknown Verified 07/19/20 13:56 ketorolac [From Toradol] Allergy short of Verified 07/19/20 13:56 breath losartan [From Cozaar] Allergy shock Verified 07/19/20 13:56 nifedipine [From Procardia] Allergy hives Verified 07/19/20 13:56 pregabalin [From Lyrica] Allergy unknown Verified 07/19/20 13:56 Sulfa (Sulfonamide Allergy anaphylasix Verified 07/19/20 13:56 Antibiotics) PFSH Acute PFSH: Medical History Acute delirium Resolved Acute embolic stroke Acute hypersomnolence disorder DELORIS (acute kidney injury) Bilateral pneumonia Diabetes mellitus insulin dependent Diabetes mellitus with neuropathy Essential (primary) hypertension Essential hypertension Expressive aphasia History of CVA (cerebrovascular accident) Hyperkalemia Hypomagnesemia Hyponatremia Metabolic encephalopathy Resolved Mixed hyperlipidemia Multinodular thyroid LEROY on CPAP Pneumonia due to COVID-19 virus Resolved Poor social situation Recurrent falls Resolved Right humeral fracture [place] dysphasia Surgical History History of bursectomy History of cholecystectomy History of colonoscopy History of hysterectomy for indication other than malignancy History of nasal sinusotomy History of repair of rotator cuff History of tonsillectomy Hx of adenoidectomy Status post anal fissurectomy Family History Mother CAD (coronary artery disease) Other Asthma Cancer Diabetes Heart disease Hypertension Stroke Social History Smoking and tobacco status: former smoker Alcohol intake: current Alcohol intake frequency: few times a month History of recent travel: No Vitals/I&O/Wt Last Vital Signs Temp 98.1 F 10/01/21 10:46 Pulse 63 10/01/21 16:01 Resp 18 10/01/21 16:01 BP 180/100 10/01/21 16:01 Pulse Ox 97 10/01/21 16:01 Weight last 48 hrs Weight 128.367 kg Physical Exam Const: COMMON NORMALS: no acute distress EXAM LIMITATIONS: language barrier NUTRITIONAL APPEARANCE: obese HENMT: COMMON NORMALS: oropharynx normal Neck/C-Spine: COMMON NORMALS: no JVD Resp: COMMON NORMALS: normal respiratory effort and clear to auscultation bilaterally AUSCULTATION: clear to auscultation bilaterally Cardio: COMMON NORMALS: no JVD, regular rhythm, S1 normal heart sound present, S2 normal heart sound present and No murmurs present (Cardio) RHYTHM: regular rhythm HEART SOUNDS: S1 normal heart sound present and S2 normal heart sound present GI: COMMON NORMALS: Normal to inspection, nondistended, normoactive bowel sounds present and Soft to palpation PALPATION: Yes Soft to palpation and Yes Tenderness to palpation present (GI) Details: other (Upper BL and mid abdomen) Extremity: COMMON NORMALS: no joint enlargement and no pedal edema Neuro: COMMON NORMALS: patient oriented x3 and moves all extremities SPEECH: receptive aphasia (Severe) Skin: COMMON NORMALS: no rashes or lesions noted GENERAL SKIN EXAM: no rashes or lesions noted Data : 10/01/21 11:12 10/01/21 11:12 A&P Assessment and plan (1) Acute pancreatitis: Abdominal pain, lipase elevation more than 3 times upper normal limit, finding suggestive of mild pancreatitis on CT scan. Not an obvious etiology. Has had cholecystectomy. Difficult to completely rule out choledocholithiasis based on the current studies. Unfortunately ultrasound was nondiagnostic. Requesting MRCP. Rare alcohol. Check triglycerides. Calcium unremarkable. Medications that could contribute include tramadol, hydrocodone if she is taking them. Uncommon. Bowel rest. IV hydration. Pain and nausea control. Status: Acute (2) Hyponatremia: Possibly hypovolemic secondary to poor oral intake. Hyponatremia sodium 127. Continue gentle IV rehydration given acute pancreatitis. Recheck sodium level. Status: Acute Plan Leukocytosis: At this time suspected reactive. Presentation not suggestive of cholangitis. No indication of acute infection on current laboratory or imaging studies. Monitor for any change in clinical condition. Incidentally noted sigmoid diverticulosis. Incidentally noted mild hepatomegaly with diffuse fatty infiltration on CT. Continue follow-up on outpatient side. Reconcile medications. Attestations Medical Necessity Statement*: Admission of over 2 midnights is anticipated for assessment of management of acute pancreatitis. Coding Level of Care Code Acute Sewer Line [employer] for [facility] Diagnoses Acute pancreatitis K85.90 Hyponatremia E87.1
[2021-10-01 19:12] LABS: Lipase 1062 U/L (13-60)
[2021-10-01] MEDS: pantoprazole DR 40 mg Tablet PO (20:35)
[2021-10-01] MEDS: lactated ringers 1,000 ML 100 ML IV (20:39)
[2021-10-01 20:40] LABS: Triglycerides 273 mg/dL (0-150)
[2021-10-01] MEDS: heparin 5,000 unit/mL INJ 1 mL 5000 UNIT SUBCUT (20:42)
[2021-10-01 20:44] LABS: Glucose Point of Care 236 mg/dL (70-110)
[2021-10-01] MEDS: insulin lispro 100 unit/1 mL SUBCUT (21:08)
[2021-10-01] MEDS: ondansetron 2 mg/ML SDV 2 mL 4 MG IVP (21:53)
[2021-10-01] MEDS: morphine 4 mg/mL SDV 1 mL 2 MG IVP (21:53)
--- NOTE | 2021-10-01 22:20 | PC.RESP ---
Respiratory assessment performed; pt has no pulmonary/respiratory hx. R/A SA02 97%. Lungs clear bilaterally. Considerable subdiaphramatic abdominal visceral pressure observed, no affect on vital signs. No respiratory interventions indicated at this time.
[2021-10-02] VITALS (9 sets, daily range): BP systolic 127–176; BP diastolic 69–83; PULSE 74–105; RESP 16–22; TEMP 36.6–36.8; O2SAT 93–98
--- NOTE | 2021-10-02 00:02 | PC.NURSE ---
report called to Kartik on medsurg
[2021-10-02] MEDS: morphine 4 mg/mL SDV 1 mL 2 MG IVP ×2 (02:34→20:26)
[2021-10-02] MEDS: heparin 5,000 unit/mL INJ 1 mL 5000 UNIT SUBCUT ×3 (04:02→16:50)
[2021-10-02 05:33] LABS: Basophils # 0.1 10^3/uL (0.0-0.1); Basophils % 0.5 %; Eosinophils # 0.2 10^3/uL (0.0-0.8); Eosinophils % 2.1 %; Hematocrit 36.2 % (37.0-47.0); Hemoglobin 11.3 g/dL (11.5-15.3); Lymphocytes # 1.9 10^3/uL (0.8-4.8); Lymphocytes % 17.2 %; Mean Corpuscular HGB Conc 31.2 g/dL (30.0-36.0); Mean Corpuscular Hemoglobin 26.9 pg (28.0-34.0); Mean Corpuscular Volume 86.2 fl (81-99); Mean Platelet Volume 9.9 fL (7.4-10.4); Monocytes # 0.8 10^3/uL (0.2-0.9); Monocytes % 7.4 %; Neutrophils # 7.96 10^3/uL (1.8-7.7); Neutrophils % 72.4 %; Nucleated Red Blood Cells % 0 %; Platelet Count 275 10^3/cmm (130-400); Red Cell Distribution Width 13.7 % (12.1-15.1)
[2021-10-02 05:50] LABS: Alanine Aminotransferase 13 U/L (0-33); Albumin Level 3.2 g/dL (3.5-5.2); Alkaline Phosphatase 99 IU/L (35-105); Anion Gap 16.8 (5-19); Aspartate Amino Transferase 16 U/L (0-32); Blood Urea Nitrogen 15 mg/dL (8-23); Calcium 8.4 mg/dL (8.5-10.5); Carbon Dioxide 25 mmol/L (22-29); Chloride 95 mmol/L (98-107); Globulin 2.7 g/dL (1.3-4.6); Glomerular Filtration Rate 72.9 mL/min (90-130); Glucose 244 mg/dL (65-115); Osmolality Calculated 285 mOsm/kg (285-295); Potassium 3.8 mmol/L (3.5-5.1); Sodium 133 mmol/L (136-145); Total Bilirubin 0.3 mg/dL (0.15-1.2); Total Protein 5.9 g/dL (6.6-8.7)
[2021-10-02 06:00] LABS: Lipase 561 U/L (13-60)
[2021-10-02] MEDS: lactated ringers 1,000 ML 100 ML IV ×3 (06:26→22:23)
[2021-10-02 07:15] LABS: Glucose Point of Care 247 mg/dL (70-110)
[2021-10-02] MEDS: pantoprazole DR 40 mg Tablet PO (07:45)
--- NOTE | 2021-10-02 10:30 | MR_ITS ---
WS: [id number] MRCP (MAGNETIC RESONANCE CHOLANGIOPANCREATOGRAPHY) HISTORY: acute pancreatitis, abnormal AP COMPARISON: Gallbladder ultrasound 10/01/[address] abdomen 10/01/2021. TECHNIQUE: Multiple sequences are performed to evaluate the intra and extrahepatic ducts. Status post cholecystectomy. No bile duct dilatation. The common bile duct is normal course and calib er measuring 5 mm throughout its course. The pancreatic duct is also identified and normal. Minimal prominence of the pancreatic head. No significant stranding but there is very slight enlargem ent of the pancreatic head. There is no mass. No significant fluid surrounding the pancreas. There is no mass. No pseudocyst identified. Focal fatty deposition along the falciform ligament. There is no central bile duct dilatation. Portal vein is normal. No hepatic mass identified. 5 mm exophytic cyst from the posterior mid RIGHT kidney. Small amount of edema and stranding adjacent to the RIGHT kidney . MR/MR MRCP [id number] IMPRESSION: 1. Normal common bile duct. No intrahepatic or extra hepatic duct dilatation. 2. Very mild enlargement and edema at the pancreatic head. No significant amou nt of adjacent fluid. Possible early changes of pancreatitis. Appears improved since the CT from 10/01/2021. 3. Prior cholecystectomy. 4. Normal pancreatic duct.
--- NOTE | 2021-10-02 11:00 | P.PN_ITS ---
Subjective Subjective: Still some abdominal discomfort. Upper abdomen to the right upper quadrant. Vitals/I&O/Wt Last Vital Signs Temp 97.8 F 10/02/21 07:53 Pulse 89 10/02/21 07:53 Resp 18 10/02/21 07:53 BP 148/69 10/02/21 07:53 Pulse Ox 97 10/02/21 07:53 10/01/21 10/02/21 10/02/21 22:59 06:59 14:59 Intake Total 978.333 / 978.333 Output Total 300 / 300 Balance 678.333 / 678.333 Weight last 48 hrs Weight 128.367 kg Physical Exam Const: COMMON NORMALS: no acute distress and patient oriented x3 EXAM LIMITATIONS: language barrier NUTRITIONAL APPEARANCE: obese HENMT: COMMON NORMALS: oropharynx normal Neck/C-Spine: COMMON NORMALS: no JVD Resp: COMMON NORMALS: normal respiratory effort and clear to auscultation bilaterally AUSCULTATION: clear to auscultation bilaterally Cardio: COMMON NORMALS: no JVD, regular rhythm, S1 normal heart sound present, S2 normal heart sound present and No murmurs present (Cardio) RHYTHM: regular rhythm HEART SOUNDS: S1 normal heart sound present and S2 normal heart sound present GI: COMMON NORMALS: Normal to inspection, nondistended, normoactive bowel sounds present and Soft to palpation PALPATION: Yes Soft to palpation and Yes Tenderness to palpation present (GI) Extremity: COMMON NORMALS: no joint enlargement and no pedal edema Neuro: COMMON NORMALS: patient oriented x3 and moves all extremities SPEECH: receptive aphasia (Severe) Skin: COMMON NORMALS: no rashes or lesions noted GENERAL SKIN EXAM: no rashes or lesions noted Data : 10/02/21 04:58 10/02/21 04:58 A&P Assessment and plan (1) Acute pancreatitis: Abdominal discomfort upper abdomen to right upper quadrant Better today. We'll try some oral intake. MRCP today. Lipase has come down. So has alk phos. Abdominal pain, lipase elevation more than 3 times upper normal limit, finding suggestive of mild pancreatitis on CT scan. Triglycerides mildly elevated. Calcium not elevated. Rare alcohol. Medications that could contribute include tramadol, hydrocodone if she is taking them. Uncommon. IV hydration. Pain and nausea control. Status: Acute (2) Hyponatremia: Improving. Possibly hypovolemic secondary to poor oral intake. Continue gentle IV rehydration given acute pancreatitis. Follow-up sodium le michelle. Status: Acute Plan Leukocytosis: Pain. At this time suspected reactive. Presentation not suggestive of cholangitis. No indication of acute infection on current laboratory or imaging studies. Monitor for any change in clinical condition. Incidentally noted sigmoid diverticulosis. Incidentally noted mild hepatomegaly with diffuse fatty infiltration on CT. Continue follow-up on outpatient side. Reconcile medications. Attestations Medical Necessity Statement*: Continue admission for assessment and management of acute pancreatitis. Coding Level of Care Code Acute Scorer Single for [facility] Diagnoses Acute pancreatitis K85.90 Hyponatremia E87.1
[2021-10-02 12:59] LABS: Glucose Point of Care 275 mg/dL (70-110)
[2021-10-02] MEDS: insulin lispro 100 unit/1 mL SUBCUT ×3 (13:16→21:22)
[2021-10-02 16:40] LABS: Glucose Point of Care 309 mg/dL (70-110)
[2021-10-02] MEDS: ondansetron 2 mg/ML SDV 2 mL 4 MG IVP (20:27)
[2021-10-02 21:09] LABS: Glucose Point of Care 305 mg/dL (70-110)
[2021-10-03] VITALS: BP 133/71; PULSE 98; RESP 17; TEMP 36.8; O2SAT 93
[2021-10-03 04:00] VITALS: BP 148/75; PULSE 97; RESP 20; TEMP 36.7; O2SAT 93
[2021-10-03] MEDS: heparin 5,000 unit/mL INJ 1 mL 5000 UNIT SUBCUT (04:02)
--- NOTE | 2021-10-03 06:00 | PC.PHAR ---
pt is from [facility], [place]-medications entered are meds from the pts mar
[2021-10-03 06:11] LABS: Basophils # 0.1 10^3/uL (0.0-0.1); Basophils % 0.7 %; Eosinophils # 0.2 10^3/uL (0.0-0.8); Eosinophils % 1.9 %; Hematocrit 35.8 % (37.0-47.0); Hemoglobin 11.7 g/dL (11.5-15.3); Lymphocytes # 1.5 10^3/uL (0.8-4.8); Lymphocytes % 15.6 %; Mean Corpuscular HGB Conc 32.7 g/dL (30.0-36.0); Mean Corpuscular Hemoglobin 26.9 pg (28.0-34.0); Mean Corpuscular Volume 82.3 fl (81-99); Mean Platelet Volume 10.4 fL (7.4-10.4); Monocytes # 0.7 10^3/uL (0.2-0.9); Monocytes % 7.6 %; Neutrophils % 73.8 %; Nucleated Red Blood Cells % 0 %; Platelet Count 270 10^3/cmm (130-400); Red Blood Count 4.35 10^6/uL (4.1-5.3); Red Cell Distribution Width 13.6 % (12.1-15.1); White Blood Count 9.8 10^3/uL (4.0-10.0)
[2021-10-03 06:20] LABS: Glucose Point of Care 355 mg/dL (70-110)
[2021-10-03 07:26] VITALS: BP 171/85; PULSE 106; RESP 18; O2SAT 92
[2021-10-03] MEDS: pantoprazole DR 40 mg Tablet PO (09:22)
[2021-10-03] MEDS: insulin lispro 100 unit/1 mL SUBCUT (09:23)
[2021-10-03 11:25] LABS: Alanine Aminotransferase 16 U/L (0-33); Albumin Level 3.5 g/dL (3.5-5.2); Alkaline Phosphatase 100 IU/L (35-105); Anion Gap 17.3 (5-19); Aspartate Amino Transferase 19 U/L (0-32); Blood Urea Nitrogen 14 mg/dL (8-23); Calcium 9.3 mg/dL (8.5-10.5); Carbon Dioxide 23 mmol/L (22-29); Chloride 93 mmol/L (98-107); Glomerular Filtration Rate 63.7 mL/min (90-130); Glucose 441 mg/dL (65-115); Lipase 135 U/L (13-60); Osmolality Calculated 288 mOsm/kg (285-295); Potassium 4.3 mmol/L (3.5-5.1); Sodium 129 mmol/L (136-145); Total Bilirubin 0.4 mg/dL (0.15-1.2); Total Protein 6.5 g/dL (6.6-8.7)
[2021-10-03 12:46] LABS: SARS Covid-2 Antigen Negative (Negative)
--- NOTE | 2021-10-03 13:53 | P.DS_ITS ---
Discharge Providers Date of Admission: 10/01/21 16:52 Date of Discharge: October 03, 2021 Attending Provider at Admission: Gian Echeverria Attending Provider at Discharge: Gian Echeverria Primary Care Provider: Neftaly Brambila MD Diagnoses at Discharge Discharge Diagnosis (1) Acute pancreatitis: Status: Acute (2) Hyponatremia: Status: Acute Reason for Visit Reason for Visit: ABDOMINAL PAIN Hospital Course Hospital Course Pleasant 61-year-old lady with history of CVA, with severe receptive aphasia, obesity, diabetes, other comorbidities was brought in from care home due to abdominal pain, with findings consistent of acute pancreatitis in ER with lipase elevation of 997, on recheck as high as 1062, with CT abdomen pelvis showing small amount of inflammatory stranding about the pancreatic head suspicious of pancreatitis, prior cholecystectomy and hysterectomy, incidentally noted sigmoid diverticulosis, mild hepatomegaly with diffuse fatty infiltration. Abdominal ultrasound obtained, however, unfortunately undiagnosed due to body habitus. She was initiated on conservative measures with IV hydration, bowel rest, pain and nausea control. With noted mild hyponatremia, HCTZ was held. Additional assessment obtained with MRCP, which showed normal common bile duct, no intrahepatic or extrahepatic duct dilation. Very mild enlargement and edema of pancreatic head. No significant adjacent fluid. Possible early changes of pancreatitis. Appears improved since CT of 10/01/2021. Prior cholecystectomy. Normal pancreatic duct. She does not consume any significant amount of alcohol. Other studies included triglycerides which will mildly elevated but not significantly enough to be responsible for pancreatitis, normal calcium. Cause of acute pancreatitis so far not clear. Could be secondary to medications with Januvia for example. Additionally tramadol and hydrocodone were in rare instances reported to be associated with pancreatitis. If possible these medications are to be discontinued. Once she is out of acute illness, please refer for follow-up with gastroenterology for additional assessment of other possible etiologies. Physical Exam Const: COMMON NORMALS: no acute distress and patient oriented x3 EXAM LIMITATIONS: language barrier NUTRITIONAL APPEARANCE: obese HENMT: COMMON NORMALS: oropharynx normal Neck/C-Spine: COMMON NORMALS: no JVD Resp: COMMON NORMALS: normal respiratory effort and clear to auscultation bilaterally AUSCULTATION: clear to auscultation bilaterally Cardio: COMMON NORMALS: no JVD, regular rhythm, S1 normal heart sound present, S2 normal heart sound present and No murmurs present (Cardio) RHYTHM: regular rhythm HEART SOUNDS: S1 normal heart sound present and S2 normal heart sound present GI: COMMON NORMALS: Normal to inspection, nondistended, normoactive bowel sounds present and Soft to palpation PALPATION: Yes Soft to palpation and No Tenderness to palpation present (GI) Extremity: COMMON NORMALS: no joint enlargement and no pedal edema Neuro: COMMON NORMALS: patient oriented x3 and moves all extremities SPEECH: receptive aphasia (Severe) Skin: COMMON NORMALS: no rashes or lesions noted GENERAL SKIN EXAM: no rashes or lesions noted Discharge Data Studies Completed and Pending Completed Studies During Hospitalization Category Date Time Status CT abdomen pelvis w con* [id number] Stat Cat Scan 10/01/21 11:21 Completed MR MRCP [id number] Routine MRI 10/02/21 10:30 Completed US gall bladder 80046 Stat Ultrasound 10/01/21 13:50 Completed Pending at discharge Category Date Time Status Complete Blood Count w/Auto AM LABS Lab 10/04/21 04:00 Ordered Complete Blood Count w/Auto AM LABS Lab 10/05/21 04:00 Ordered Comprehensive Metabolic Panel AM LABS Lab 10/04/21 04:00 Ordered Comprehensive Metabolic Panel AM LABS Lab 10/05/21 04:00 Ordered Lipase AM LABS Lab 10/04/21 04:00 Ordered Radiology Impressions Abdomen/Pelvis CT 10/01/21 11:21 IMPRESSION: 1. Small amount of inflammatory stranding about the pancreatic head suspicious for pancreatitis. Recommend correlation with pancreatic enzymes. 2. Prior cholecystectomy and hysterectomy. 3. Normal renal parenchymal enhancement. No hydronephrosis. Mild renal atrophy. 4. Sigmoid diverticulosis. No evidence of acute diverticulitis. 5. Normal caliber abdominal aorta. 6. Mild hepatomegaly with diffuse fatty infiltration. Gallbladder Ultrasound 10/01/21 13:50 IMPRESSION: 1. Nondiagnostic evaluation of the RIGHT upper quadrant due to body habitus. 2. Prior cholecystectomy. Cholangiopancreatography MRI 10/02/21 10:30 IMPRESSION: 1. Normal common bile duct. No intrahepatic or extra hepatic duct dilatation. 2. Very mild enlargement and edema at the pancreatic head. No significant amount of adjacent fluid. Possible early changes of pancreatitis. Appears improved since the CT from 10/01/2021. 3. Prior cholecystectomy. 4. Normal pancreatic duct. Laboratory Results WBC 9.8 10^3/uL (4.0-10.0) 10/03/21 05:33 RBC 4.35 10^6/uL (4.1-5.3) 10/03/21 05:33 Hgb 11.7 g/dL (11.5-15.3) 10/03/21 05:33 Hct 35.8 % (37.0-47.0) L 10/03/21 05:33 MCV 82.3 fl (81-99) 10/03/21 05:33 MCH 26.9 pg (28.0-34.0) L 10/03/21 05:33 MCHC 32.7 g/dL (30.0-36.0) 10/03/21 05:33 RDW 13.6 % (12.1-15.1) 10/03/21 05:33 Plt Count 270 10^3/cmm (130-400) 10/03/21 05:33 MPV 10.4 fL (7.4-10.4) 10/03/21 05:33 Neut % (Auto) 73.8 % 10/03/21 05:33 Lymph % (Auto) 15.6 % 10/03/21 05:33 [place] % (Auto) 7.6 % 10/03/21 05:33 Eos % (Auto) 1.9 % 10/03/21 05:33 Baso % (Auto) 0.7 % 10/03/21 05:33 Neut # (Auto) 7.20 10^3/uL (1.8-7.7) 10/03/21 05:33 Lymph # (Auto) 1.5 10^3/uL (0.8-4.8) 10/03/21 05:33 [place] # (Auto) 0.7 10^3/uL (0.2-0.9) 10/03/21 05:33 Eos # (Auto) 0.2 10^3/uL (0.0-0.8) 10/03/21 05:33 Baso # (Auto) 0.1 10^3/uL (0.0-0.1) 10/03/21 05:33 Nucleated RBC % (auto) 0 % 10/03/21 05:33 Nucleated RBCs # 0.0 /100WBC 10/03/21 05:33 Sodium 129 mmol/L (136-145) L 10/03/21 10:52 Potassium 4.3 mmol/L (3.5-5.1) 10/03/21 10:52 Chloride 93 mmol/L (98-107) L 10/03/21 10:52 Carbon Dioxide 23 mmol/L (22-29) 10/03/21 10:52 Anion Gap 17.3 (5-19) 10/03/21 10:52 BUN 14 mg/dL (8-23) 10/03/21 10:52 Creatinine 0.9 mg/dL (0.5-0.9) 10/03/21 10:52 GFR Calculation 63.7 mL/min (90-130) L 10/03/21 10:52 Glucose 441 mg/dL (65-115) H 10/03/21 10:52 POC Glucose 355 mg/dL (70-110) H 10/03/21 06:11 Calculated Osmolality 288 mOsm/kg (285-295) 10/03/21 10:52 Calcium 9.3 mg/dL (8.5-10.5) 10/03/21 10:52 Total Bilirubin 0.4 mg/dL (0.15-1.2) 10/03/21 10:52 AST 19 U/L (0-32) 10/03/21 10:52 ALT 16 U/L (0-33) 10/03/21 10:52 Alkaline Phosphatase 100 IU/L (35-105) 10/03/21 10:52 Total Protein 6.5 g/dL (6.6-8.7) L 10/03/21 10:52 Albumin 3.5 g/dL (3.5-5.2) 10/03/21 10:52 Globulin 3.0 g/dL (1.3-4.6) 10/03/21 10:52 Triglycerides 273 mg/dL (0-150) H 10/01/21 18:29 Lipase 135 U/L (13-60) H 10/03/21 10:52 Urine Color Yellow (Yellow) 10/01/21 11:24 Urine Appearance Clear (CLEAR) 10/01/21 11:24 Urine pH 5 (5-7) 10/01/21 11:24 Ur Specific [place] 1.015 (1.005-1.030) 10/01/21 11:24 Urine Protein 3+ (Negative) H 10/01/21 11:24 Urine Glucose (UA) 1+ (Normal) H 10/01/21 11:24 Urine Ketones Negative (Negative) 10/01/21 11:24 Urine Blood Neg (Negative) 10/01/21 11:24 Urine Nitrate Negative (Negative) 10/01/21 11:24 Urine Bilirubin Neg (Negative) 10/01/21 11:24 Urine Urobilinogen Norm mg/dL (Negative) 10/01/21 11:24 Ur Leukocyte Esterase Negative (Negative) 10/01/21 11:24 Urine RBC None /hpf (0-2) 10/01/21 11:24 Urine WBC Rare /hpf (0-5) 10/01/21 11:24 Ur Squamous Epith Cells 10-15 /hpf (0-5) H 10/01/21 11:24 Amorphous Sediment Not Reportable 10/01/21 11:24 Urine Bacteria Trace /hpf (NONE) 10/01/21 11:24 SARS-CoV-2 Ag (Rapid) Negative (Negative) 10/03/21 12:00 Vitals Last Vital Signs Temp 98.0 F 10/03/21 04:00 Pulse 106 H 10/03/21 07:26 Resp 18 10/03/21 07:26 BP 171/85 10/03/21 07:26 Pulse Ox 92 10/03/21 07:26 Discharge Plan Discharge Patient Disposition: Xfer SNF Condition: Stable Prescriptions: Continued duloxetine 60 mg capsule,delayed release(DR/EC) 60 mg PO DAILY Qty: 90 3RF allopurinol 300 mg tablet 300 mg PO DAILY Qty: 90 0RF atorvastatin 40 mg tablet 40 mg PO DAILY 0RF cetirizine 10 mg Tablet 10 mg PO DAILY 0RF Milk of Magnesia 400 mg/5 mL Suspension 30 ml PO DAILY PRN (Reason: Constipation) 0RF bisacodyl 10 mg Suppository 10 mg AR DAILY PRN (Reason: Constipation) 0RF Fleet Enema 19-7 gram/118 mL Enema 118 ml AR DAILY PRN (Reason: Constipation) 0RF Colace 100 mg Capsule 200 mg PO BEDTIME 0RF calcium carbonate 500 mg calcium (1,250 mg) Tablet,Chewable 500 mg PO Q8H PRN (Reason: gastro-esophageal reflux) 0RF glipizide 5 mg Tablet 5 mg PO DAILY 0RF Lantus Solostar U-100 Insulin 100 unit/mL (3 mL) insulin pen 55 unit SUBCUT BID 0RF Tylenol 325 mg Tablet 650 mg PO Q6H PRN (Reason: temp) 0RF spironolactone 25 mg tablet 25 mg PO DAILY 0RF Sore Throat Aerosol,[place] See Rx Instructions .ROUTE .COMPLEX 0RF Rx Instructions: use as directed on package instructions prn omeprazole 20 mg Capsule,Delayed Release(Dr/Ec) 20 mg PO DAILY 0RF Novolog Flexpen U-100 Insulin 100 unit/mL (3 mL) insulin pen See Rx Instructions .ROUTE .COMPLEX 0RF Rx Instructions: sliding scale before meals tid 150-200=4 units 201-250=6 units 251-300=10 units 301-400=15 units lisinopril 10 mg tablet 10 mg PO DAILY 0RF clopidogrel 75 mg tablet 75 mg PO DAILY 0RF metoprolol tartrate 25 mg tablet 37.5 mg PO BID 0RF levetiracetam 500 mg Tablet 500 mg PO Q12H Qty: 30 0RF Discontinued hydrochlorothiazide 50 mg tablet 50 mg PO QAM Qty: 90 3RF tramadol 50 mg tablet 50 mg PO Q6H PRN (Reason: pain) Qty: 120 2RF Januvia 100 mg Tablet 100 mg PO DAILY 0RF hydrocodone-acetaminophen 5-325 mg tablet 1 tab PO Q4H PRN (Reason: Pain) 0RF Discharge Orders: Discharge Order (Routine); Ordered 10/03/21 Ordered By: Gian Echeverria Referrals: [facility] [Outside] Neftaly Brambila MD [Primary Care Provider] - 4-7 days Discharge Diet: Advance as tolerated, Low Cholesterol and Full LIquid Discharge Activity: Increase activity as tolerated Patient Instructions: Pancreatitis (GEN), Hyponatremia (GEN), Non-Alcoholic Fatty Liver Disease (GEN), Opioid Safety Activity Restrictions/Additional Instructions: Acute pancreatitis so far without well identified cause, please refer for gastroenterology assessment for consideration of further evaluation. Could be caused by Januvia. Please discontinue. Please discontinue tramadol, hydrocodone if possible as these medications may be associated with pancreatitis although less commonly. Do not limit sodium intake due to noted mild hyponatremia. Hold HCTZ. Please re check sodium in 4 days. Please follow-up regarding incidentally noted mild hepatomegaly with diffuse fatty infiltration with likely alcoholic fatty liver disease. Maintain low- cholesterol diet, lifestyle modifications. Avoid alcohol completely. Follow-up for progression to fibrosis or cirrhosis. Initial CT scan also with incidentally noted sigmoid diverticulosis. Discharge Attestations Time Spent in Discharge Care*: greater than 30 min Status at Discharge: Cognitive status at discharge: cognitively intact , Behavioral status at discharge: cooperative , Quality Metrics Clinical Quality Measures [ No reported AMI, CVA or VTE this stay] Coding Level of Care Code Acute Chg [facility] note Diagnoses Acute pancreatitis K85.90 Hyponatremia E87.1
[2021-10-03 15:24] VITALS: BP 171/85; PULSE 106; RESP 18; O2SAT 92
[2021-10-04 21:09] LABS: Glucose Point of Care 415 mg/dL (70-110)
== END 2021-10-03 14:35 | disposition skilled nursing facility (03) | DRG 439 ==
LOC: ER 14:27 → ER IP 17:10 → MEDSURG 23:43
PROVIDERS: Physician Assistant; Admitting Provider Internal Medicine; Emergency Provider Family Medicine; PCP Internal Medicine; Visit Provider Internal Medicine
DX: K85.90 Acute pancreatitis without necrosis or infection, unspecified (principal); E87.1 Hypo-osmolality and hyponatremia; I69.920 Aphasia following unspecified cerebrovascular disease; E11.42 Type 2 diabetes mellitus with diabetic polyneuropathy; E78.2 Mixed hyperlipidemia; G47.33 Obstructive sleep apnea (adult) (pediatric); Z99.89 Dependence on other enabling machines and devices; Z87.891 Personal history of nicotine dependence; K57.30 Diverticulosis of large intestine without perforation or abscess without bleeding; Z87.01 Personal history of pneumonia (recurrent); I10 Essential (primary) hypertension; E04.2 Nontoxic multinodular goiter; K76.0 Fatty (change of) liver, not elsewhere classified; Z79.84 Long term (current) use of oral hypoglycemic drugs; Z79.4 Long term (current) use of insulin; Z79.02 Long term (current) use of antithrombotics/antiplatelets
CPT/HCPCS: 36415; 36416; 74177; 74181; 76705; 80053; 81001; 82962; 83690; 84478; 85025; 87426; 94660; 96372; 96374; 99285; J1644; J1815; J2270; J2405; Q9967

== ENCOUNTER 2022-09-14 14:06 | Outpatient (CLI) | payer MEDICARE, SELFPAY ==
[2022-09-14 14:43] LABS: Basophils # 0.1 10^3/uL (0.0-0.1); Eosinophils # 0.3 10^3/uL (0.0-0.8); Eosinophils % 3.9 %; Hematocrit 36.4 % (37.0-47.0); Hemoglobin 10.3 g/dL (11.5-15.3); Lymphocytes # 1.1 10^3/uL (0.8-4.8); Lymphocytes % 13.3 %; Mean Corpuscular HGB Conc 28.3 g/dL (30.0-36.0); Mean Corpuscular Hemoglobin 21.6 pg (28.0-34.0); Mean Corpuscular Volume 76.5 fl (81-99); Mean Platelet Volume 9.8 fL (7.4-10.4); Monocytes # 0.7 10^3/uL (0.2-0.9); Monocytes % 7.9 %; Neutrophils # 6.06 10^3/uL (1.8-7.7); Neutrophils % 73.7 %; Nucleated Red Blood Cells % 0 %; Platelet Count 281 10^3/cmm (130-400); Red Blood Count 4.76 10^6/uL (4.1-5.3); Red Cell Distribution Width 17.5 % (12.1-15.1); White Blood Count 8.2 10^3/uL (4.0-10.0)
[2022-09-14 15:13] LABS: Estmated Average Glucose 203; Hemoglobin A1C 8.7 % (4.0-6.0)
[2022-09-14 15:21] LABS: Alanine Aminotransferase 12 U/L (0-33); Albumin Level 2.8 g/dL (3.5-5.2); Alkaline Phosphatase 130 U/L (35-105); Anion Gap 9.8 (5-19); Aspartate Amino Transferase 13 U/L (0-32); Blood Urea Nitrogen 21 mg/dL (8-23); Calcium 8.7 mg/dL (8.5-10.5); Carbon Dioxide 29 mmol/L (22-29); Chloride 105 mmol/L (98-107); Chol HDL Ratio 4.26 mg/dL (0.0-4.40); Cholesterol 196 mg/dL (0-200); Glomerular Filtration Rate 56.2 mL/min (90-130); Glucose 260 mg/dL (65-115); HDL Cholesterol 46 mg/dL (60-100); LDL Cholesterol Calculated 116 mg/dL (50-129); LDL HDL Ratio 2.52 RATIO (0.00-3.22); Osmolality Calculated 302 mOsm/kg (285-295); Potassium 3.8 mmol/L (3.5-5.1); Sodium 140 mmol/L (136-145); Total Bilirubin 0.3 mg/dL (0.15-1.2); Total Protein 5.8 g/dL (6.6-8.7); Triglycerides 169 mg/dL (0-150)
== END 2022-09-14 14:07 | disposition home or self-care (01) ==
LOC: LAB 14:08
PROVIDERS: PCP Internal Medicine; Visit Provider Family Medicine
DX: D64.9 Anemia, unspecified (principal); E11.9 Type 2 diabetes mellitus without complications; I10 Essential (primary) hypertension; E78.2 Mixed hyperlipidemia; N39.0 Urinary tract infection, site not specified
CPT/HCPCS: 80053; 80061; 81001; 82044; 83036; 85025; 87086

== ENCOUNTER 2022-09-14 17:29 | Outpatient (CLI) | payer MEDICARE, SELFPAY ==
[2022-09-14 17:59] LABS: Add Urine Microscopic? YES; Bilirubin Urine Neg (Negative); Blood Urine 2+ (Negative); Glucose Urine UA 1+ (Normal); Ketones Urine Negative (Negative); Leukocyte Esterase Urine Negative (Negative); Nitrate Urine Negative (Negative); Protein Urine 3+ (Negative); Specific Gravity, Urine 1.015 (1.005-1.030); Urine Appearance Clear (CLEAR); Urine Color Yellow (Yellow); Urobilinogen Urine Norm (Negative); pH Urine 5 (5-7)
[2022-09-14 18:00] LABS: Add Urine Culture? No; Bacteria Urine 1+ /hpf; RBC Urine 0-4 /hpf (0-2); WBC Urine 0-4 /hpf (0-5)
[2022-09-14 18:15] LABS: Creatinine Urine, Random 79 mg/dL (28-217)
[2022-09-14 18:29] LABS: Microalbum Creatinine Ratio Ur 5266 mg/dL (0-20); Microalbumin Random Urine 416 ug/dL (0-20)
== END 2022-09-14 17:30 | disposition home or self-care (01) ==
PROVIDERS: PCP Internal Medicine; Visit Provider Family Medicine
DX: N39.0 Urinary tract infection, site not specified (principal)
CPT/HCPCS: 81001; 82044; 87086

== ENCOUNTER 2023-03-27 09:56 | Outpatient (CLI) | payer MEDICARE, SELFPAY ==
[2023-03-27 10:36] LABS: Estmated Average Glucose 243; Hemoglobin A1C 10.1 % (4.0-6.0)
[2023-03-27 10:50] LABS: Alanine Aminotransferase 25 U/L (0-33); Albumin Level 3.1 g/dL (3.5-5.2); Alkaline Phosphatase 140 U/L (35-105); Anion Gap 13.6 (5-19); Aspartate Amino Transferase 24 U/L (0-32); Blood Urea Nitrogen 41 mg/dL (8-23); Calcium 8.9 mg/dL (8.5-10.5); Carbon Dioxide 24 mmol/L (22-29); Chloride 101 mmol/L (98-107); Globulin 3.1 g/dL (1.3-4.6); Glomerular Filtration Rate 45.4 mL/min (90-130); Glucose 222 mg/dL (65-115); Osmolality Calculated 295 mOsm/kg (285-295); Potassium 4.6 mmol/L (3.5-5.1); Sodium 134 mmol/L (136-145); Thyroid Stimulating Hormone 1.68 uIU/mL (0.27-4.20); Total Bilirubin 0.2 mg/dL (0.15-1.2); Total Protein 6.2 g/dL (6.6-8.7)
== END 2023-03-27 09:57 | disposition home or self-care (01) ==
LOC: LAB 09:58
PROVIDERS: PCP Family Medicine; Visit Provider Family Medicine
DX: E11.40 Type 2 diabetes mellitus with diabetic neuropathy, unspecified (principal); I10 Essential (primary) hypertension; D64.9 Anemia, unspecified; E05.90 Thyrotoxicosis, unspecified without thyrotoxic crisis or storm
CPT/HCPCS: 80053; 83036; 84443

== ENCOUNTER 2023-04-10 10:14 | Outpatient (CLI) | payer MEDICARE, SELFPAY ==
[2023-04-10 10:53] LABS: Basophils # 0.1 10^3/uL (0.0-0.1); Basophils % 0.8 %; Eosinophils # 0.3 10^3/uL (0.0-0.8); Eosinophils % 3.4 %; Hematocrit 32.4 % (36-47); Lymphocytes # 1.7 10^3/uL (0.8-4.8); Lymphocytes % 18.3 %; Mean Corpuscular HGB Conc 31.2 g/dL (30-55); Mean Corpuscular Hemoglobin 26.6 pg (27-33); Mean Corpuscular Volume 85.5 fl (85-98); Mean Platelet Volume 10.1 fL (7.4-10.4); Monocytes # 0.6 10^3/uL (0.2-0.9); Monocytes % 6.1 %; Neutrophils # 6.46 10^3/uL (1.8-7.7); Nucleated Red Blood Cells % 0 %; Platelet Count 293 10^3/cmm (157-399); Red Blood Count 3.79 10^6/uL (3.85-5.65); Red Cell Distribution Width 17.6 % (12.1-15.1); White Blood Count 9.11 10^3/uL (3.29-11.43)
[2023-04-10 11:06] LABS: Alanine Aminotransferase 18 U/L (0-33); Albumin Level 3.2 g/dL (3.5-5.2); Alkaline Phosphatase 123 U/L (35-105); Anion Gap 13.2 (5-19); Aspartate Amino Transferase 16 U/L (0-32); Blood Urea Nitrogen 46 mg/dL (8-23); Calcium 8.9 mg/dL (8.5-10.5); Carbon Dioxide 27 mmol/L (22-29); Chloride 102 mmol/L (98-107); Chol HDL Ratio 3.89 mg/dL (0.0-4.40); Cholesterol 183 mg/dL (0-200); Estmated Average Glucose 246; Globulin 2.8 g/dL (1.3-4.6); Glomerular Filtration Rate 45.4 mL/min (90-130); Glucose 153 mg/dL (65-115); HDL Cholesterol 47 mg/dL (60-100); Hemoglobin A1C 10.2 % (4.0-6.0); LDL Cholesterol Calculated 103 mg/dL (50-129); LDL HDL Ratio 2.19 RATIO (0.00-3.22); Osmolality Calculated 301 mOsm/kg (285-295); Potassium 4.2 mmol/L (3.5-5.1); Sodium 138 mmol/L (136-145); Total Bilirubin 0.2 mg/dL (0.15-1.2); Triglycerides 163 mg/dL (0-150)
== END 2023-04-10 10:15 | disposition home or self-care (01) ==
LOC: LAB 10:16
PROVIDERS: PCP Family Medicine; Visit Provider Family Medicine
DX: I10 Essential (primary) hypertension (principal); R73.09 Other abnormal glucose; E78.5 Hyperlipidemia, unspecified; D52.9 Folate deficiency anemia, unspecified
CPT/HCPCS: 80053; 80061; 83036; 85025

== ENCOUNTER → 2023-05-07 08:11 | Outpatient (BNVA) | payer MEDICARE, SELFPAY | PROVIDERS: PCP Family Medicine; Visit Provider Specialist | DX: S42.201K Unspecified fracture of upper end of right humerus, subsequent encounter for fracture with nonunion; X58.XXXD Exposure to other specified factors, subsequent encounter | CPT/HCPCS: 73030; 99205 ==

== ENCOUNTER 2023-07-15 13:04 | Outpatient (CLI) | payer MEDICARE, SELFPAY ==
--- NOTE | 2023-07-15 13:00 | MR_ITS ---
WS: [id number] MRI RIGHT SHOULDER HISTORY: pain COMPARISON: 07/23/2020 and 05/07/2023 TECHNIQUE: Multiplanar sequences of the shoulder joint are submitted. Significantly compromised imaging of the shoulder due to motion artifact. Patient is status post rota tor cuff repair. There is at least a single screw noted in the humeral head. There is a fluid-filled gap between the humeral head and the neck. Fluid gap and separation of the nonunion by 11 mm. There i s nonunion of a prior fracture with adjacent osteopenia. The humeral head is markedly high riding abu tting the undersurface of the acromion and distal clavicle with remodeling Poor visualization of the AC joint. Biceps tendon is not identified in the bicipital groove. There is a short segment of the biceps tendon seen on the coronal proton density sequence over the humeral he ad indicating that it may be intact. Micrometallic artifacts are noted surrounding the shoulder. Severe atrophy of the supraspinatus muscle. Moderate atrophy of the infraspinatus and subscapularis m uscles. None of the tendons are identified in a normal position or appear to be intact. IMPRESSION: 1. Technically very limited and difficult evaluation of the RIGHT shoulder. 2. 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 There is a lar ge fluid gap along the nonhealed fracture site. 3. High riding humeral head abutting the acromion and clavicle. 4. No identifiable rotator cuff tendons. 5. Severe atrophy of the supraspinatus muscle and moderate atrophy of the infraspinatus and subscapul eloy muscles.
== END 2023-07-15 13:05 | disposition home or self-care (01) ==
LOC: RAD 13:04
PROVIDERS: PCP Family Medicine; Visit Provider Specialist
DX: S42.291D Other displaced fracture of upper end of right humerus, subsequent encounter for fracture with routine healing (principal); X58.XXXD Exposure to other specified factors, subsequent encounter; M85.811 Other specified disorders of bone density and structure, right shoulder; M62.511 Muscle wasting and atrophy, not elsewhere classified, right shoulder
CPT/HCPCS: 73221

== ENCOUNTER → 2023-08-04 15:04 | Outpatient (BNVA) | payer MEDICARE, SELFPAY | PROVIDERS: PCP Family Medicine; Visit Provider Nurse Practitioner | DX: Z09 Encounter for follow-up examination after completed treatment for conditions other than malignant neoplasm (principal); S42.291K Other displaced fracture of upper end of right humerus, subsequent encounter for fracture with nonunion; S46.011D Strain of muscle(s) and tendon(s) of the rotator cuff of right shoulder, subsequent encounter; X58.XXXD Exposure to other specified factors, subsequent encounter | CPT/HCPCS: 73030; 99214 ==

== ENCOUNTER 2023-08-07 16:47 | Outpatient (CLI) | payer MEDICARE, SELFPAY ==
[2023-08-07 17:28] LABS: Anion Gap 12.3 (5-19); Blood Urea Nitrogen 41 mg/dL (8-23); Calcium 8.7 mg/dL (8.5-10.5); Carbon Dioxide 28 mmol/L (22-29); Chloride 101 mmol/L (98-107); Glomerular Filtration Rate 45.4 mL/min (90-130); Glucose 230 mg/dL (65-115); Osmolality Calculated 299 mOsm/kg (285-295); Potassium 5.3 mmol/L (3.5-5.1); Sodium 136 mmol/L (136-145)
[2023-08-07 20:19] LABS: Estmated Average Glucose 217; Hemoglobin A1C 9.2 % (4.0-6.0)
== END 2023-08-07 16:48 | disposition home or self-care (01) ==
LOC: LAB 16:51
PROVIDERS: PCP Family Medicine; Visit Provider Family Medicine
DX: E11.9 Type 2 diabetes mellitus without complications (principal); I10 Essential (primary) hypertension; D64.9 Anemia, unspecified
CPT/HCPCS: 80048; 83036

== ENCOUNTER 2023-09-01 15:35 | Outpatient (CLI) | payer MEDICARE, SELFPAY ==
[2023-09-01 15:45] LABS: Add Urine Microscopic? YES; Bilirubin Urine Neg (Negative); Blood Urine 2+ (Negative); Glucose Urine UA Trace (Normal); Ketones Urine Negative (Negative); Leukocyte Esterase Urine Negative (Negative); Nitrate Urine Negative (Negative); Protein Urine Neg (Negative); Urine Appearance Clear (CLEAR); Urine Color Yellow (Yellow); Urobilinogen Urine Norm (Negative); pH Urine 6 (5-7)
[2023-09-01 16:00] LABS: Bacteria Urine TRACE /hpf; Hyaline Casts Urine 0-4 /lpf; Mucus Urine TRACE /hpf; RBC Urine 0-4 /hpf (0-2); Squamous Epithelial Cell Urine 0-4 /hpf (0-5); Transitional Epi Cells Urine 0-4 /hpf; WBC Urine 25-40 /hpf (0-5)
[2023-09-01 16:01] LABS: Add Urine Culture? Yes; Oval Fat Bodies Urine 1+ /hpf
== END 2023-09-01 15:36 | disposition home or self-care (01) ==
LOC: LAB 15:37
PROVIDERS: PCP Family Medicine; Visit Provider Family Medicine
DX: N39.0 Urinary tract infection, site not specified (principal)
CPT/HCPCS: 81001; 87077; 87086; 87186

== ENCOUNTER 2023-10-16 09:22 | Outpatient (CLI) | payer MEDICARE, SELFPAY ==
[2023-10-16 09:49] LABS: Basophils # 0.1 10^3/uL (0.0-0.1); Eosinophils # 0.5 10^3/uL (0.0-0.8); Eosinophils % 5.5 %; Hematocrit 39.7 % (36-47); Lymphocytes # 1.5 10^3/uL (0.8-4.8); Lymphocytes % 16.2 %; Mean Corpuscular HGB Conc 30.5 g/dL (30-55); Mean Corpuscular Hemoglobin 26.5 pg (27-33); Mean Corpuscular Volume 86.9 fl (85-98); Mean Platelet Volume 9.9 fL (7.4-10.4); Monocytes # 0.5 10^3/uL (0.2-0.9); Monocytes % 5.8 %; Neutrophils # 6.58 10^3/uL (1.8-7.7); Neutrophils % 71.3 %; Nucleated Red Blood Cells % 0 %; Platelet Count 289 10^3/cmm (157-399); Red Blood Count 4.57 10^6/uL (3.85-5.65); Red Cell Distribution Width 14.7 % (12.1-15.1); White Blood Count 9.24 10^3/uL (3.29-11.43)
[2023-10-16 10:27] LABS: Estmated Average Glucose 200; Hemoglobin A1C 8.6 % (4.0-6.0)
[2023-10-16 10:39] LABS: Alanine Aminotransferase 23 U/L (0-33); Albumin Level 3.2 g/dL (3.5-5.2); Alkaline Phosphatase 122 U/L (35-105); Anion Gap 12.4 (5-19); Aspartate Amino Transferase 19 U/L (0-32); Blood Urea Nitrogen 34 mg/dL (8-23); Calcium 8.7 mg/dL (8.5-10.5); Carbon Dioxide 28 mmol/L (22-29); Chloride 107 mmol/L (98-107); Chol HDL Ratio 6.86 mg/dL (0.0-4.40); Cholesterol 254 mg/dL (0-200); Globulin 2.1 g/dL (1.3-4.6); Glucose 173 mg/dL (65-115); HDL Cholesterol 37 mg/dL (60-100); LDL Cholesterol Calculated 155 mg/dL (50-129); LDL HDL Ratio 4.19 RATIO (0.00-3.22); Osmolality Calculated 308 mOsm/kg (285-295); Potassium 4.4 mmol/L (3.5-5.1); Sodium 143 mmol/L (136-145); Total Bilirubin 0.2 mg/dL (0.15-1.2); Total Protein 5.3 g/dL (6.6-8.7); Triglycerides 308 mg/dL (0-150)
[2023-10-16 10:40] LABS: Thyroid Stimulating Hormone 1.99 uIU/mL (0.27-4.20); Vitamin B12 658 pg/mL (232-1245)
== END 2023-10-16 09:23 | disposition home or self-care (01) ==
PROVIDERS: PCP Family Medicine; Visit Provider Family Medicine
DX: I10 Essential (primary) hypertension (principal)
CPT/HCPCS: 80053; 80061; 82607; 83036; 84443; 85025

== ENCOUNTER → 2023-11-05 14:26 | Outpatient (BNVA) | payer MEDICARE, SELFPAY | PROVIDERS: PCP Family Medicine; Visit Provider Nurse Practitioner | DX: S46.011D Strain of muscle(s) and tendon(s) of the rotator cuff of right shoulder, subsequent encounter (principal); S42.291K Other displaced fracture of upper end of right humerus, subsequent encounter for fracture with nonunion; X58.XXXD Exposure to other specified factors, subsequent encounter | CPT/HCPCS: 99214 ==

== ENCOUNTER 2023-11-29 19:33 | Emergency (ER) | payer MEDICARE, SELFPAY ==
[2023-11-29 19:37] VITALS: BP 203/89; PULSE 65; RESP 15; TEMP 36.9; O2SAT 92; BMI 49.9
--- NOTE | 2023-11-29 19:38 | XRR_ITS ---
PROCEDURE INFORMATION: Exam: XR Chest Exam date and time: 11/29/2023 7:40 PM Age: 63 years old Clinical indication: Screening exam; Other screening; Patient HX: Screening for kaitlynn-psych; Unknown HX; Additional info: Psych evaluation TECHNIQUE: Imaging protocol: Radiologic exam of the chest. Views: 1 view. COMPARISON: CR XR chest 1V portable [id number] 07/23/2020 9:58 AM FINDINGS: Lungs: Mild pulmonary vascular congestion. Patchy ground-glass airspace opacities may reflect a degree of alveolar edema. Pleural spaces: Unremarkable. No pleural effusion. No pneumothorax. Heart/Mediastinum: Cardiomegaly. Bones/joints: Unremarkable. XR/XR chest 1V [id number] IMPRESSION: 1. Cardiomegaly. 2. Mild pulmonary vascular congestion. 3. Patchy ground-glass airspace opacities may reflect a degree of alveolar edema.
--- NOTE | 2023-11-29 19:38 | ECG_ITS ---
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 Measurements Intervals [place] Rate: 63 P: 30 NC: 209 QRS: -46 QRSD: 137 T: 78 QT: 443 QTc: 454 Interpretive Statements SINUS RHYTHM RIGHT BUNDLE BRANCH BLOCK [120+ ms QRS DURATION, UPRIGHT V1, 40+ ms S IN I/aVL/V4/V5/V6] LEFT ANTERIOR FASCICULAR BLOCK [QRS AXIS <= -45, QR IN I, RS IN II] LEFT VENTRICULAR HYPERTROPHY AND ST-T CHANGE [VOLTAGE CRITERIA PLUS ST/T ABNORMALITY] POSSIBLE SEPTAL MYOCARDIAL INFARCTION , OF INDETERMINATE AGE [30 ms Q WAVE IN V1/V2] Compared to ECG 07/23/2020 05:06:24 Right bundle-branch block now present Left anterior fascicular block now present Left ventricular hypertrophy now present.ST (T wave) deviation now present Sinus bradycardia no longer present.Intraventricular conduction delay no longer present Myocardial infarct finding still present Electronically Signed On 11-30-2023 20:48:10 CDT by Clovis Guerrero M.D. [id number]
--- NOTE | 2023-11-29 19:52 | W.ED.PSYCHS ---
Documented by User: Evon Chou MD 11/29/23 21:18 HPI - Psych General: Chief Complaint: Psychiatric Symptoms Stated Complaint: MHE Time Seen by Provider: 11/29/23 19:37 History of Present Illness: 63-year-old female with a history of a recent stroke now with some behavioral issues and now living in a assisted who presents to the emergency room by ambulance from the assisted who presents to the emergency room. Apparently she has been suffering from some delusions. Has been yelling out quite a bit and having some aggressive type behaviors that are a little bit out of her norm. She was sent here for evaluation. Review of Systems General: Reports: ROS unobtainable due to mental status PFS ED PFSH: Medical History Rotator cuff tear, right Diabetes mellitus insulin dependent Essential (primary) hypertension Depression due to cerebrovascular accident (CVA) Expressive aphasia Hypomagnesemia Bilateral pneumonia Hyponatremia Hyperkalemia DELORIS (acute kidney injury) Right humeral fracture Metabolic encephalopathy Resolved Acute delirium Resolved Pneumonia due to COVID-19 virus Resolved Poor social situation Multinodular thyroid Acute embolic stroke Recurrent falls Resolved History of CVA (cerebrovascular accident) Acute hypersomnolence disorder LEROY on CPAP Essential hypertension Wernicke dysphasia Diabetes mellitus with neuropathy Mixed hyperlipidemia Surgical History History of nasal sinusotomy History of cholecystectomy History of tonsillectomy History of repair of rotator cuff History of hysterectomy for indication other than malignancy History of bursectomy Hx of adenoidectomy Status post anal fissurectomy History of colonoscopy Family History Mother CAD (coronary artery disease) Other Asthma Cancer Diabetes Heart disease Hypertension Stroke Social History Smoking and tobacco/nicotine status: former use of tobacco/nicotine Alcohol intake: current Alcohol intake frequency: few times a month Substance/Drug Use: never Physical Exam Narrative: EXAM NARRATIVE: General: Alert, no acute distress. Skin: Warm, dry. Head: Normocephalic, atraumatic. Neck: Supple, trachea midline. Eye: Extraocular movements are intact. Ears, nose, mouth and throat: mucosa moist. Cardiovascular: Regular, Normal peripheral perfusion. Respiratory: Lungs are clear to auscultation, respirations are non-labored, breath sounds are equal, Symmetrical chest wall expansion. Gastrointestinal: Soft, Nontender, Non distended, Normal bowel sounds. Musculoskeletal: Normal ROM, no deformity. Neurological: Alert No focal motor deficit observed. Psychiatric: Patient has odd affect and sometimes has word salad. She becomes quite aggressive at times. Course Vital Signs: Vital signs: Vital Signs Temperature 98.4 F 11/29/23 19:37 Pulse Rate 57 L 11/30/23 01:31 Respiratory Rate 18 11/30/23 01:31 Blood Pressure 108/57 11/30/23 01:31 Pulse Oximetry 92 11/30/23 01:31 Oxygen Delivery Me thod Nasal Cannula 11/29/23 23:33 Oxygen Flow Rate 2 11/29/23 23:33 MDM - Psych Medical Decision Making Medical decision making: Differential diagnosis for a geriatric patient with worsening dementia/behavioral problems including but not limited to and based on the above HPI, review of systems and physical exam: Concerns for infection such as UTI or pneumonia. Alcohol intoxication. Cardiac issues or other medical problems to be ruled out prior to a geriatric/psychiatric admission Orders placed to evaluate differential diagnosis based on the above differential, HPI and physical exam Lab work, chest X-ray and ekg ordered to evaluate the pathologies and to clear the patient medically prior Lab Review: Laboratory results were reviewed and interpreted by myself the emergency room physician. I reviewed the patient's medical record. EKG: Time 1947 rate 63 normal sinus rhythm, No ST-T changes, no ectopy, right bundle branch block, This was reviewed and interpreted by myself the ER physician. Chest x-ray: Mild cardiomegaly, what appears to be some possible early pulmonary edema. Ankle is more of an inspiratory film. Given that her creatinine slightly more elevated than usual and she does not have any edema. This was reviewed and interpreted by myself the ER physician. Medical clearance - EKG shows no ischemic changes. - Blood alcohol level is negative, as well as salicylate and Tylenol. - Drug screen is negative - No anemia. - BUN and creatinine are near her baseline. She is 1.5 today. She normally runs between about 1.2 and 1.4. Lab Data 11/29/23 19:53 11/29/23 19:53 Radiology Impressions Chest X-Ray 11/29/23 19:38 IMPRESSION: 1. Cardiomegaly. 2. Mild pulmonary vascular congestion. 3. Patchy ground-glass airspace opacities may reflect a degree of alveolar edema. Laboratory Results WBC 11.62 10^3/uL (3.29-11.43) H 11/29/23 19:53 RBC 4.00 10^6/uL (3.85-5.65) 11/29/23 19:53 Hgb 10.70 g/dL (11.27-16.99) L 11/29/23 19:53 Hct 35.5 % (36-47) L 11/29/23 19:53 MCV 88.8 fl (85-98) 11/29/23 19:53 MCH 26.8 pg (27-33) L 11/29/23 19:53 MCHC 30.1 g/dL (30-55) 11/29/23 19:53 RDW 15.1 % (12.1-15.1) 11/29/23 19:53 Plt Count 339 10^3/cmm (157-399) 11/29/23 19:53 MPV 9.7 fL (7.4-10.4) 11/29/23 19:53 Neut % (Auto) 75.0 % 11/29/23 19:53 Lymph % (Auto) 12.5 % 11/29/23 19:53 Cataño % (Auto) 6.0 % 11/29/23 19:53 Eos % (Auto) 5.1 % 11/29/23 19:53 Baso % (Auto) 1.0 % 11/29/23 19:53 Neut # (Auto) 8.71 10^3/uL (1.8-7.7) H 11/29/23 19:53 Lymph # (Auto) 1.5 10^3/uL (0.8-4.8) 11/29/23 19:53 [place]ata[place] # (Auto) 0.7 10^3/uL (0.2-0.9) 11/29/23 19:53 Eos # (Auto) 0.6 10^3/uL (0.0-0.8) 11/29/23 19:53 Baso # (Auto) 0.1 10^3/uL (0.0-0.1) 11/29/23 19:53 Nucleated RBC % (auto) 0 % 11/29/23 19:53 Nucleated RBCs # 0.0 /100WBC 11/29/23 19:53 Sodium 144 mmol/L (136-145) 11/29/23 19:53 Potassium 3.9 mmol/L (3.5-5.1) 11/29/23 19:53 Chloride 108 mmol/L (98-107) H 11/29/23 19:53 Carbon Dioxide 27 mmol/L (22-29) 11/29/23 19:53 Anion Gap 12.9 (5-19) 11/29/23 19:53 BUN 33 mg/dL (8-23) H 11/29/23 19:53 Creatinine 1.5 mg/dL (0.5-0.9) H 11/29/23 19:53 GFR Calculation 35.1 mL/min (90-130) L 11/29/23 19:53 Glucose 164 mg/dL (65-115) H 11/29/23 19:53 Calculated Osmolality 309 mOsm/kg (285-295) H 11/29/23 19:53 Calcium 9.3 mg/dL (8.5-10.5) 11/29/23 19:53 Total Bilirubin 0.3 mg/dL (0.15-1.2) 11/29/23 19:53 AST 17 U/L (0-32) 11/29/23 19:53 ALT 15 U/L (0-33) 11/29/23 19:53 Alkaline Phosphatase 126 U/L (35-105) H 11/29/23 19:53 Total Protein 6.5 g/dL (6.6-8.7) L 11/29/23 19:53 Albumin 3.3 g/dL (3.5-5.2) L 11/29/23 19:53 Globulin 3.2 g/dL (1.3-4.6) 11/29/23 19:53 TSH 2.37 uIU/mL (0.27-4.20) 11/29/23 19:53 Urine Color Yellow (Yellow) 11/29/23 23:06 Urine Appearance Sl hazy (CLEAR) A 11/29/23 23:06 Urine pH 6 (5-7) 11/29/23 23:06 Ur Specific [place] 1.010 (1.005-1.030) 11/29/23 23:06 Urine Protein 3+ (Negative) H 11/29/23 23:06 Urine Glucose (UA) Norm (Normal) 11/29/23 23:06 Urine Ketones Negative (Negative) 11/29/23 23:06 Urine Blood Trace (Negative) H 11/29/23 23:06 Urine Nitrate Negative (Negative) 11/29/23 23:06 Urine Bilirubin Neg (Negative) 11/29/23 23:06 Urine Urobilinogen Neg mg/dL (Negative) 11/29/23 23:06 Ur Leukocyte Esterase Negative (Negative) 11/29/23 23:06 Urine RBC 5-10 /hpf (0-2) H 11/29/23 23:06 Urine WBC 5-10 /hpf (0-5) H 11/29/23 23:06 Ur Squamous Epith Cells 0-4 /hpf (0-5) H 11/29/23 23:06 Amorphous Sediment Trace /hpf 11/29/23 23:06 Urine Bacteria Trace /hpf (NONE) 11/29/23 23:06 Hyaline Casts 5-10 /lpf H 11/29/23 23:06 Coarse Granular Casts 0-4 /lpf H 11/29/23 23:06 Urine Mucus Trace /hpf 11/29/23 23:06 Salicylates < 0.3 mg/dL (3-10) L 11/29/23 19:53 Urine Opiates Screen Negative ng/mL (Negative) 11/29/23 23:06 Acetaminophen < 5.0 ug/mL (10-30) L 11/29/23 19:53 Ur Barbiturates Screen Negative ng/mL (Negative) 11/29/23 23:06 Ur Phencyclidine Scrn Negative ng/mL (Negative) 11/29/23 23:06 Ur Amphetamines Screen Negative ng/mL (Negative) 11/29/23 23:06 U Benzodiazepines Scrn Negative ng/mL (Negative) 11/29/23 23:06 Urine Cocaine Screen Negative ng/mL (Negative) 11/29/23 23:06 U Marijuana (THC) Screen Negative ng/mL (Negative) 11/29/23 23:06 Ethyl Alcohol < 10 mg/dL (0-10) 11/29/23 19:53 SARS-CoV-2 Ag (Rapid) negative (Negative) 11/29/23 21:26 Discharge Plan Discharge Patient Disposition: Home Clinical Impression: Mental and behavioral problems with communication (including speech) Condition: Stable Prescriptions: No Action (DME) Dexcom G7 Sensor Device See Rx Instructions .Route Qty: 1 0RF Rx Instructions: As directed (DME) Dexcom G7 Beverage Manager Misc See Rx Instructions .Route Qty: 1 6RF Rx Instructions: As directed allopurinol 300 mg tablet 300 mg PO DAILY Qty: 90 0RF duloxetine 60 mg capsule,delayed release(DR/EC) See Rx Instructions .ROUTE .COMPLEX Qty: 2 10RF Dose Instruction: TAKE 1 CAPSULE BY MOUTH DAILY FOR MAJOR DEPRESSIVE DISORDER Rx Instructions: TAKE 1 CAPSULE BY MOUTH DAILY FOR MAJOR DEPRESSIVE DISORDER furosemide 20 mg tablet 20 mg PO DAILY Qty: 30 11RF potassium chloride 10 mEq capsule, extended release 10 meq PO DAILY Qty: 30 11RF tramadol 50 mg tablet 50 mg PO Q6H PRN (Reason: pain) Qty: 120 5RF atorvastatin 40 mg tablet 40 mg PO DAILY cetirizine 10 mg Tablet 10 mg PO DAILY Milk of Magnesia 400 mg/5 mL Suspension 30 ml PO DAILY PRN (Reason: Constipation) bisacodyl 10 mg Suppository [address] DAILY PRN (Reason: Constipation) Colace 100 mg Capsule 200 mg PO BEDTIME calcium carbonate 500 mg calcium (1,250 mg) Tablet,Chewable 500 mg PO Q8H PRN (Reason: gastro-esophageal reflux) glipizide 5 mg Tablet 5 mg PO DAILY Lantus Solostar U-100 Insulin 100 unit/mL (3 mL) insulin pen 55 unit SUBCUT BID Tylenol 325 mg Tablet 650 mg PO Q6H PRN (Reason: temp) spironolactone 25 mg tablet 25 mg PO DAILY omeprazole 20 mg Capsule,Delayed Release(Dr/Ec) 20 mg PO DAILY Novolog FlexPen U-100 Insulin 100 unit/mL (3 mL) insulin pen See Rx Instructions .ROUTE .COMPLEX Rx Instructions: sliding scale before meals tid 150-200=4 units 201-250=6 units 251-300=10 units 301-400=15 units lisinopril 10 mg tablet 10 mg PO DAILY clopidogrel 75 mg tablet 75 mg PO DAILY metoprolol tartrate 25 mg tablet 37.5 mg PO BID Discharge Orders: Discharge ED (Routine); Ordered 11/29/23 Ordered By: Cheng Brown Referrals: Benigno Jennings, [Primary Care Provider] - 1-3 days Patient Instructions: Depression in Older Adults (ED), Opioid Safety, Pain Management Activity Restrictions/Additional Instructions: Return for thoughts or wishes to harm your self or others. Return also for fever, worsening mental status, any other concerning symptoms. Coding Level of Care Code ED Stitch Bonding Machine Tender Helper for Chg Fwd Documented by User: Cehng Brown DO 11/30/23 03:11 HPI - Psych General: Chief Complaint: Psychiatric Symptoms Stated Complaint: MHE Time Seen by Provider: 11/29/23 19:37 PFSH ED PFSH: Medical History Rotator cuff tear, right Diabetes mellitus insulin dependent Essential (primary) hypertension Depression due to cerebrovascular accident (CVA) Expressive aphasia Hypomagnesemia Bilateral pneumonia Hyponatremia Hyperkalemia DELORIS (acute kidney injury) Right humeral fracture Metabolic encephalopathy Resolved Acute delirium Resolved Pneumonia due to COVID-19 virus Resolved Poor social situation Multinodular thyroid Acute embolic stroke Recurrent falls Resolved History of CVA (cerebrovascular accident) Acute hypersomnolence disorder LEROY on CPAP Essential hypertension Wernicke dysphasia Diabetes mellitus with neuropathy Mixed hyperlipidemia Surgical History History of nasal sinusotomy History of cholecystectomy History of tonsillectomy History of repair of rotator cuff History of hysterectomy for indication other than malignancy History of bursectomy Hx of adenoidectomy Status post anal fissurectomy History of colonoscopy Family History Mother CAD (coronary artery disease) Other Asthma Cancer Diabetes Heart disease Hypertension Stroke Social History Smoking and tobacco/nicotine status: former use of tobacco/nicotine Alcohol intake: current Alcohol intake frequency: few times a month Substance/Drug Use: never Course Vital Signs: Vital signs: Vital Signs Temperature 98.4 F 11/29/23 19:37 Pulse Rate 57 L 11/30/23 01:31 Respiratory Rate 18 11/30/23 01:31 Blood Pressure 108/57 11/30/23 01:31 Pulse Oximetry 92 11/30/23 01:31 Oxygen Delivery Me thod Nasal Cannula 11/29/23 23:33 Oxygen Flow Rate 2 11/29/23 23:33 MDM - Psych Medical Decision Making Medical decision making: Differential diagnosis for a geriatric patient with worsening dementia/behavioral problems including but not limited to and based on the above HPI, review of systems and physical exam: Concerns for infection such as UTI or pneumonia. Alcohol intoxication. Cardiac issues or other medical problems to be ruled out prior to a geriatric/psychiatric admission Orders placed to evaluate differential diagnosis based on the above differential, HPI and physical exam Lab work, chest X-ray and ekg ordered to evaluate the pathologies and to clear the patient medically prior Lab Review: Laboratory results were reviewed and interpreted by myself the emergency room physician. I reviewed the patient's medical record. EKG: Time 1947 rate 63 normal sinus rhythm, No ST-T changes, no ectopy, right bundle branch block, This was reviewed and interpreted by myself the ER physician. Chest x-ray: Mild cardiomegaly, what appears to be some possible early pulmonary edema. Ankle is more of an inspiratory film. Given that her creatinine slightly more elevated than usual and she does not have any edema. This was reviewed and interpreted by myself the ER physician. Medical clearance - EKG shows no ischemic changes. - Blood alcohol level is negative, as well as salicylate and Tylenol. - Drug screen is negative - No anemia. - BUN and creatinine are near her baseline. She is 1.5 today. She normally runs between about 1.2 and 1.4. 63-year-old female checked out at shift change by the previous physician. She has been up to her bedside commode. She is much more calm now. She has not been combative at all here or belligerent in any way. We are awaiting urinalysis results which were negative. Urine drug screen is negative. With no acute illness as a cause, no demonstration of danger to herself or others at this point, she will be allowed back to the residential facility. To return for new or worsening symptoms. Lab Data 11/29/23 19:53 11/29/23 19:53 Radiology Impressions Chest X-Ray 11/29/23 19:38 IMPRESSION: 1. Cardiomegaly. 2. Mild pulmonary vascular congestion. 3. Patchy ground-glass airspace opacities may reflect a degree of alveolar edema. Laboratory Results WBC 11.62 10^3/uL (3.29-11.43) H 11/29/23 19:53 RBC 4.00 10^6/uL (3.85-5.65) 11/29/23 19:53 Hgb 10.70 g/dL (11.27-16.99) L 11/29/23 19:53 Hct 35.5 % (36-47) L 11/29/23 19:53 MCV 88.8 fl (85-98) 11/29/23 19:53 MCH 26.8 pg (27-33) L 11/29/23 19:53 MCHC 30.1 g/dL (30-55) 11/29/23 19:53 RDW 15.1 % (12.1-15.1) 11/29/23 19:53 Plt Count 339 10^3/cmm (157-399) 11/29/23 19:53 MPV 9.7 fL (7.4-10.4) 11/29/23 19:53 Neut % (Auto) 75.0 % 11/29/23 19:53 Lymph % (Auto) 12.5 % 11/29/23 19:53 Cata[place] % (Auto) 6.0 % 11/29/23 19:53 Eos % (Auto) 5.1 % 11/29/23 19:53 Baso % (Auto) 1.0 % 11/29/23 19:53 Neut # (Auto) 8.71 10^3/uL (1.8-7.7) H 11/29/23 19:53 Lymph # (Auto) 1.5 10^3/uL (0.8-4.8) 11/29/23 19:53 [place] # (Auto) 0.7 10^3/uL (0.2-0.9) 11/29/23 19:53 Eos # (Auto) 0.6 10^3/uL (0.0-0.8) 11/29/23 19:53 Baso # (Auto) 0.1 10^3/uL (0.0-0.1) 11/29/23 19:53 Nucleated RBC % (auto) 0 % 11/29/23 19:53 Nucleated RBCs # 0.0 /100WBC 11/29/23 19:53 Sodium 144 mmol/L (136-145) 11/29/23 19:53 Potassium 3.9 mmol/L (3.5-5.1) 11/29/23 19:53 Chloride 108 mmol/L (98-107) H 11/29/23 19:53 Carbon Dioxide 27 mmol/L (22-29) 11/29/23 19:53 Anion Gap 12.9 (5-19) 11/29/23 19:53 BUN 33 mg/dL (8-23) H 11/29/23 19:53 Creatinine 1.5 mg/dL (0.5-0.9) H 11/29/23 19:53 GFR Calculation 35.1 mL/min (90-130) L 11/29/23 19:53 Glucose 164 mg/dL (65-115) H 11/29/23 19:53 Calculated Osmolality 309 mOsm/kg (285-295) H 11/29/23 19:53 Calcium 9.3 mg/dL (8.5-10.5) 11/29/23 19:53 Total Bilirubin 0.3 mg/dL (0.15-1.2) 11/29/23 19:53 AST 17 U/L (0-32) 11/29/23 19:53 ALT 15 U/L (0-33) 11/29/23 19:53 Alkaline Phosphatase 126 U/L (35-105) H 11/29/23 19:53 Total Protein 6.5 g/dL (6.6-8.7) L 11/29/23 19:53 Albumin 3.3 g/dL (3.5-5.2) L 11/29/23 19:53 Globulin 3.2 g/dL (1.3-4.6) 11/29/23 19:53 TSH 2.37 uIU/mL (0.27-4.20) 11/29/23 19:53 Urine Color Yellow (Yellow) 11/29/23 23:06 Urine Appearance Sl hazy (CLEAR) A 11/29/23 23:06 Urine pH 6 (5-7) 11/29/23 23:06 Ur Specific [place] 1.010 (1.005-1.030) 11/29/23 23:06 Urine Protein 3+ (Negative) H 11/29/23 23:06 Urine Glucose (UA) Norm (Normal) 11/29/23 23:06 Urine Ketones Negative (Negative) 11/29/23 23:06 Urine Blood Trace (Negative) H 11/29/23 23:06 Urine Nitrate Negative (Negative) 11/29/23 23:06 Urine Bilirubin Neg (Negative) 11/29/23 23:06 Urine Urobilinogen Neg mg/dL (Negative) 11/29/23 23:06 Ur Leukocyte Esterase Negative (Negative) 11/29/23 23:06 Urine RBC 5-10 /hpf (0-2) H 11/29/23 23:06 Urine WBC 5-10 /hpf (0-5) H 11/29/23 23:06 Ur Squamous Epith Cells 0-4 /hpf (0-5) H 11/29/23 23:06 Amorphous Sediment Trace /hpf 11/29/23 23:06 Urine Bacteria Trace /hpf (NONE) 11/29/23 23:06 Hyaline Casts 5-10 /lpf H 11/29/23 23:06 Coarse Granular Casts 0-4 /lpf H 11/29/23 23:06 Urine Mucus Trace /hpf 11/29/23 23:06 Salicylates < 0.3 mg/dL (3-10) L 11/29/23 19:53 Urine Opiates Screen Negative ng/mL (Negative) 11/29/23 23:06 Acetaminophen < 5.0 ug/mL (10-30) L 11/29/23 19:53 Ur Barbiturates Screen Negative ng/mL (Negative) 11/29/23 23:06 Ur Phencyclidine Scrn Negative ng/mL (Negative) 11/29/23 23:06 Ur Amphetamines Screen Negative ng/mL (Negative) 11/29/23 23:06 U Benzodiazepines Scrn Negative ng/mL (Negative) 11/29/23 23:06 Urine Cocaine Screen Negative ng/mL (Negative) 11/29/23 23:06 U Marijuana (THC) Screen Negative ng/mL (Negative) 11/29/23 23:06 Ethyl Alcohol < 10 mg/dL (0-10) 11/29/23 19:53 SARS-CoV-2 Ag (Rapid) negative (Negative) 11/29/23 21:26 All radiology interpretation(s) finalized by discharge Discharge Plan Discharge Patient Disposition: Home Clinical Impression: Mental and behavioral problems with communication (including speech) Condition: Stable Prescriptions: No Action (DME) Dexcom G7 Sensor Device See Rx Instructions .Route Qty: 1 0RF Rx Instructions: As directed (DME) Dexcom G7 Beverage Manager Misc See Rx Instructions .Route Qty: 1 6RF Rx Instructions: As directed allopurinol 300 mg tablet 300 mg PO DAILY Qty: 90 0RF duloxetine 60 mg capsule,delayed release(DR/EC) See Rx Instructions .ROUTE .COMPLEX Qty: 2 10RF Dose Instruction: TAKE 1 CAPSULE BY MOUTH DAILY FOR MAJOR DEPRESSIVE DISORDER Rx Instructions: TAKE 1 CAPSULE BY MOUTH DAILY FOR MAJOR DEPRESSIVE DISORDER furosemide 20 mg tablet 20 mg PO DAILY Qty: 30 11RF potassium chloride 10 mEq capsule, extended release 10 meq PO DAILY Qty: 30 11RF tramadol 50 mg tablet 50 mg PO Q6H PRN (Reason: pain) Qty: 120 5RF atorvastatin 40 mg tablet 40 mg PO DAILY cetirizine 10 mg Tablet 10 mg PO DAILY Milk of Magnesia 400 mg/5 mL Suspension 30 ml PO DAILY PRN (Reason: Constipation) bisacodyl 10 mg Suppository [address] DAILY PRN (Reason: Constipation) Colace 100 mg Capsule 200 mg PO BEDTIME calcium carbonate 500 mg calcium (1,250 mg) Tablet,Chewable 500 mg PO Q8H PRN (Reason: gastro-esophageal reflux) glipizide 5 mg Tablet 5 mg PO DAILY Lantus Solostar U-100 Insulin 100 unit/mL (3 mL) insulin pen 55 unit SUBCUT BID Tylenol 325 mg Tablet 650 mg PO Q6H PRN (Reason: temp) spironolactone 25 mg tablet 25 mg PO DAILY omeprazole 20 mg Capsule,Delayed Release(Dr/Ec) 20 mg PO DAILY Novolog FlexPen U-100 Insulin 100 unit/mL (3 mL) insulin pen See Rx Instructions .ROUTE .COMPLEX Rx Instructions: sliding scale before meals tid 150-200=4 units 201-250=6 units 251-300=10 units 301-400=15 units lisinopril 10 mg tablet 10 mg PO DAILY clopidogrel 75 mg tablet 75 mg PO DAILY metoprolol tartrate 25 mg tablet 37.5 mg PO BID Discharge Orders: Discharge ED (Routine); Ordered 11/29/23 Ordered By: Cheng Brown Referrals: Benigno Jennings DO [Primary Care Provider] - 1-3 days Patient Instructions: Depression in Older Adults (ED), Opioid Safety, Pain Management Activity Restrictions/Additional Instructions: Return for thoughts or wishes to harm your self or others. Return also for fever, worsening mental status, any other concerning symptoms. Coding Level of Care Code ED Stitch Bonding Machine Tender Helper for Avery Rocha
[2023-11-29 20:20] LABS: Basophils # 0.1 10^3/uL (0.0-0.1); Eosinophils # 0.6 10^3/uL (0.0-0.8); Eosinophils % 5.1 %; Hematocrit 35.5 % (36-47); Lymphocytes # 1.5 10^3/uL (0.8-4.8); Lymphocytes % 12.5 %; Mean Corpuscular HGB Conc 30.1 g/dL (30-55); Mean Corpuscular Hemoglobin 26.8 pg (27-33); Mean Corpuscular Volume 88.8 fl (85-98); Mean Platelet Volume 9.7 fL (7.4-10.4); Monocytes # 0.7 10^3/uL (0.2-0.9); Neutrophils # 8.71 10^3/uL (1.8-7.7); Nucleated Red Blood Cells % 0 %; Platelet Count 339 10^3/cmm (157-399); Red Cell Distribution Width 15.1 % (12.1-15.1); White Blood Count 11.62 10^3/uL (3.29-11.43)
[2023-11-29 20:30] LABS: Alanine Aminotransferase 15 U/L (0-33); Albumin Level 3.3 g/dL (3.5-5.2); Alkaline Phosphatase 126 U/L (35-105); Anion Gap 12.9 (5-19); Aspartate Amino Transferase 17 U/L (0-32); Blood Urea Nitrogen 33 mg/dL (8-23); Calcium 9.3 mg/dL (8.5-10.5); Carbon Dioxide 27 mmol/L (22-29); Chloride 108 mmol/L (98-107); Creatinine Clr Calc Pharmacy 53.7121; Globulin 3.2 g/dL (1.3-4.6); Glomerular Filtration Rate 35.1 mL/min (90-130); Glucose 164 mg/dL (65-115); Osmolality Calculated 309 mOsm/kg (285-295); Potassium 3.9 mmol/L (3.5-5.1); Sodium 144 mmol/L (136-145); Thyroid Stimulating Hormone 2.37 uIU/mL (0.27-4.20); Total Bilirubin 0.3 mg/dL (0.15-1.2); Total Protein 6.5 g/dL (6.6-8.7)
[2023-11-29 20:32] LABS: Acetaminophen < 5.0 ug/mL (10-30); Alcohol Level < 10 mg/dL (0-10); Salicylate < 0.3 mg/dL (3-10)
[2023-11-29] MEDS: water for injection-sterile 10 ML (20:32)
[2023-11-29] MEDS: ziprasidone 20 mg/mL SDV IM (20:32)
[2023-11-29] MEDS: LORazepam 2 mg/mL INJ 10 mL MDV IM (20:32)
[2023-11-29 20:35] VITALS: BP 191/91; PULSE 68; RESP 22; O2SAT 93
--- NOTE | 2023-11-29 20:37 | PC.NURSE ---
Nurse attempted to have patient change into [facility] scrubs, pt refused. Pt is refusing all nursing intervention at this time and states she is going home. property maintenance supervisor and security present. Nursing staff and security secured pt arms and legs in order to administer IM injections of Ativan and Geodon
--- NOTE | 2023-11-29 20:44 | PC.NURSE ---
pt oxygen 90% on room air, pt placed on 2L nc
[2023-11-29 21:00] VITALS: BP 229/109; PULSE 69; RESP 18; O2SAT 94
--- NOTE | 2023-11-29 21:18 | PC.NURSE ---
pt guardian/ esdras katz this nurse phoned darien and esdras katz and both stated that pt needs to be transferred to a [facility] to be evaluated.
[2023-11-29 21:53] LABS: SARS Covid-2 Antigen negative (Negative)
[2023-11-29 22:32] VITALS: PULSE 70; RESP 18; O2SAT 93
[2023-11-29 23:23] LABS: Bilirubin Urine Neg (Negative); Blood Urine Trace (Negative); Glucose Urine UA Norm (Normal); Ketones Urine Negative (Negative); Leukocyte Esterase Urine Negative (Negative); Nitrate Urine Negative (Negative); Protein Urine 3+ (Negative); Urine Appearance SL Hazy (CLEAR); Urine Color Yellow (Yellow); Urobilinogen Urine Neg (Negative); pH Urine 6 (5-7)
[2023-11-29 23:24] LABS: Amorphous Sediment Urine TRACE /hpf; Amphetamines Screen Urine Negative (Negative); Bacteria Urine TRACE /hpf; Barbiturates Screen Urine Negative (Negative); Benzodiazepines Screen Urine Negative (Negative); Coarse Granular Casts Urine 0-4 /lpf; Cocaine Screen Urine Negative (Negative); Mucus Urine TRACE /hpf; Opiate Screen Urine Negative (Negative); PCP Screen Urine Negative (Negative); Squamous Epithelial Cell Urine 0-4 /hpf (0-5); THC Screen Urine Negative (Negative)
[2023-11-29 23:33] VITALS: BP 189/103; PULSE 69; RESP 18; O2SAT 95
[2023-11-30 00:30] VITALS: BP 189/78; PULSE 65; RESP 18; O2SAT 94
[2023-11-30 01:01] VITALS: BP 143/58; PULSE 61; RESP 18; O2SAT 92
[2023-11-30 01:31] VITALS: BP 108/57; PULSE 57; RESP 18; O2SAT 92
[2023-11-30 03:21] VITALS: RESP 20; O2SAT 93
[2023-11-30 04:41] VITALS: RESP 20
[2023-11-30 05:15] VITALS: RESP 18
== END 2023-11-30 05:22 | disposition home or self-care (01) ==
PROVIDERS: Emergency Medicine; Emergency Provider Emergency Medicine; PCP Family Medicine
DX: I69.320 Aphasia following cerebral infarction (principal); I69.328 Other speech and language deficits following cerebral infarction; F68.8 Other specified disorders of adult personality and behavior; I10 Essential (primary) hypertension; E78.2 Mixed hyperlipidemia; E11.42 Type 2 diabetes mellitus with diabetic polyneuropathy; Z87.891 Personal history of nicotine dependence; Z11.52 Encounter for screening for COVID-19; Z79.02 Long term (current) use of antithrombotics/antiplatelets; Z79.4 Long term (current) use of insulin; Z79.84 Long term (current) use of oral hypoglycemic drugs
CPT/HCPCS: 36415; 71045; 80053; 80306; 80307; 81001; 84443; 85025; 87426; 93005; 96372; 99285; J2060; J3486

== ENCOUNTER 2023-12-25 16:04 | Outpatient (CLI) | payer MEDICARE, SELFPAY ==
[2023-12-25 16:44] LABS: Estmated Average Glucose 148; Hemoglobin A1C 6.8 % (4.0-6.0)
[2023-12-25 17:13] LABS: Chol HDL Ratio 5.64 mg/dL (0.0-4.40); Cholesterol 220 mg/dL (0-200); HDL Cholesterol 39 mg/dL (60-100); LDL Cholesterol Calculated 121 mg/dL (50-129); Triglycerides 298 mg/dL (0-150)
== END 2023-12-25 16:05 | disposition home or self-care (01) ==
PROVIDERS: PCP Family Medicine; Visit Provider Family Medicine
DX: E08.43 Diabetes mellitus due to underlying condition with diabetic autonomic (poly)neuropathy (principal); I10 Essential (primary) hypertension
CPT/HCPCS: 80061; 83036

== ENCOUNTER 2024-03-03 11:49 | Observation (INO) | payer MEDICARE, SELFPAY ==
[2024-03-03 11:55] VITALS: BP 196/68; PULSE 57; RESP 18; TEMP 36.7; O2SAT 98
--- NOTE | 2024-03-03 12:03 | CT_ITS ---
WS: [id number] CT HEAD TECHNIQUE: Noncontrast CT of the head obtained from the skullbase to the vertex. CLINICAL INFORMATION: ams COMPARISON: MRI 2020 DLP: 1130.[address] scans at [facility] use at least one of these dose optimization techniques: automated e xposure control; mA and/or kV adjustment per patient size (includes targeted exams where dose is matc hed to clinical indication); or iterative reconstruction. FINDINGS: No evidence of intracranial hemorrhage or mass effect. Chronic infarct LEFT parietal lobe extending i nto the LEFT temporal lobe with encephalomalacia. This is similar in appearance to the prior MRI 06/19. The LEFT parietal infarct has progressed slightly compared to 2020 but has a chronic appearan ce. Small chronic lacunar infarcts RIGHT cerebellum similar to previous. Mild small vessel changes. Mild parenchymal volume loss. Incidental cavum septum pellucidum and verga e. Vascular calcification. Paranasal sinuses and mastoid air cells are well aerated. Normal posterior nasopharynx. CT/CT head wo con* [id number] IMPRESSION: 1. No evidence of intracranial hemorrhage or mass effect. 2. Chronic infarct described above. 3. No acute intracranial findings.
--- NOTE | 2024-03-03 12:03 | XRR_ITS ---
PROCEDURE INFORMATION: Exam: XR Chest Exam date and time: 03/03/2024 12:14 PM Age: 64 years old Clinical indication: Other: AMS TECHNIQUE: Imaging protocol: Radiologic exam of the chest. Views: 1 view. COMPARISON: CR XR chest 1V [id number] 11/29/2023 7:40 PM FINDINGS: Lungs: Low lung volumes seen. The lungs are otherwise clear. No consolidation. Pleural spaces: There is elevation of the right hemidiaphragm. No pleural effusion. No pneumothorax. Heart/Mediastinum: Unremarkable. No cardiomegaly. Bones/joints: There is chronic deformity in the right glenohumeral joint. This area is incompletely visible. XR/XR chest 1V portable [id number] IMPRESSION: 1. No acute findings. 2. Elevated right hemidiaphragm 3. Low lung volumes 4. Chronic deformity right glenohumeral joint
--- NOTE | 2024-03-03 12:08 | ECG_ITS ---
[facility] Test Date: 2024-03-03 Pat Name: Hilda Wallace Department: Room: Gender: Female Landscape Architect: : [id number] Requested By: Laure Atkinson Order Number: [id number] Kyler MD: Oseas Erickson M.D. Measurements Intervals [place] Rate: 55 P: 28 IN: 206 QRS: -44 QRSD: 160 T: 71 QT: 463 QTc: 444 Interpretive Statements SINUS BRADYCARDIA LEFT AXIS DEVIATION [QRS AXIS < -30] RIGHT BUNDLE BRANCH BLOCK [120+ ms QRS DURATION, UPRIGHT V1, 40+ ms S IN I/aVL/V4/V5/V6] LEFT VENTRICULAR HYPERTROPHY AND ST-T CHANGE [VOLTAGE CRITERIA PLUS ST/T ABNORMALITY] POSSIBLE SEPTAL MYOCARDIAL INFARCTION , PROBABLY OLD [30 ms Q WAVE IN V1/V2] Compared to ECG 11/29/2023 19:48:35 Left-axis deviation now present Sinus rhythm no longer present Left anterior fascicular block no longer present ST (T wave) deviation still present Myocardial infarct finding still present Electronically Signed On 03-03-2024 16:41:45 CDT by Oseas Erickson M.D. [email or web address]
--- NOTE | 2024-03-03 12:15 | PC.PHAR ---
PT IS FROM [facility]
--- NOTE | 2024-03-03 12:19 | ED_ITS ---
HPI - Altered Mental Status 2 General: Chief Complaint: Altered Mental Status Stated Complaint: SELF-HARM Time Seen by Provider: 03/03/24 11:52 Source: EMS Mode of arrival: EMS Limitations: altered mental status History of Present Illness: 64-year-old female who is here [facility]. Patient has history of dementia and stroke seizure states she has been more altered this week than her typical. They state that she made a gesture at her throat patient here is only able to tell me her name I did ask her if she is suicidal she says no she keeps telling stories about where she had lived before and does not answer any my questions appropriately. No fever. Review of Systems 2 General: Reports: ROS unobtainable due to mental status PFSH ED 2 PFSH: Medical History Rotator cuff tear, right Diabetes mellitus insulin dependent Essential (primary) hypertension Depression due to cerebrovascular accident (CVA) Expressive aphasia Hypomagnesemia Bilateral pneumonia Hyponatremia Hyperkalemia DELORIS (acute kidney injury) Right humeral fracture Metabolic encephalopathy Resolved Acute delirium Resolved Pneumonia due to COVID-19 virus Resolved Poor social situation Multinodular thyroid Acute embolic stroke Recurrent falls Resolved History of CVA (cerebrovascular accident) Acute hypersomnolence disorder LEROY on CPAP Essential hypertension Wernicke dysphasia Diabetes mellitus with neuropathy Mixed hyperlipidemia Surgical History History of nasal sinusotomy History of cholecystectomy History of tonsillectomy History of repair of rotator cuff History of hysterectomy for indication other than malignancy History of bursectomy Hx of adenoidectomy Status post anal fissurectomy History of colonoscopy Family History Mother CAD (coronary artery disease) Other Asthma Cancer Diabetes Heart disease Hypertension Stroke Social History Smoking and tobacco/nicotine status: former use of tobacco/nicotine Alcohol intake: current Alcohol intake frequency: few times a month Substance/Drug Use: never Physical Exam 2 Const: COMMON NORMALS: negative for patient oriented x3 EXAM LIMITATIONS: a ltered mental status HENMT: COMMON NORMALS: normocephalic and atraumatic HEAD & SCALP: n ormocephalic and atraumatic Eye: COMMON NORMALS: Equal, round and reactive pupils present and EOMs intact bilaterally PUPIL: Yes Equal, round and reactive pupils present Neck/C-Spine: COMMON NORMALS: full ROM and supple Chest: COMMONS NORMALS: normal inspection of the chest Resp: COMMON NORMALS: normal respiratory effort, No retractions, No use of accessory muscles and clear to auscultation bilaterally AUSCULTATION: clear to auscultation bilaterally Cardio: COMMON NORMALS: regular rate, regular rhythm and No murmurs present (Cardio) RATE: regular rate RHYTHM: regular rhythm GI: COMMON NORMALS: Normal to inspection, nondistended, normoactive bowel sounds present, Soft to palpation, non-tender and no masses PALPATION: Yes Soft to palpation Extremity: COMMON NORMALS: normal to inspection and full ROM Neuro: COMMON NORMALS: moves all extremities and no focal motor deficits; negative for patient oriented x3 SPEECH: abnormal speech and expressive aphasia MOTOR EXAM: 5/5 motor strength present throughout Psych: COMMON NORMALS: cooperative; negative for mental status grossly normal Skin: COMMON NORMALS: no rashes or lesions noted and no wounds GENERAL SKIN EXAM: no rashes or lesions noted Course 2 Vital Signs: Vital signs: Vital Signs Temperature 98.1 F 03/03/24 11:55 Pulse Rate 57 L 03/03/24 11:55 Respiratory Rate 18 03/03/24 11:55 Blood Pressure 196/68 03/03/24 11:55 Pulse Oximetry 98 03/03/24 11:55 Oxygen Delivery Me thod Room Air 03/03/24 11:55 MDM - Altered Mental Status Medical Decision Making Patient presents here from [facility] concern of possible suicidality here she has had no signs of being suicidal denies that she was evaluated by psychiatrist Dr. Persaud who agrees she had quite a bit of expressive aphasia here unsure what her renal baseline is she has had history of strokes did attempt to get MRI through the ER was unable to will admit for observation for an MRI to rule out any recent strokes this is been going on for days she is not a lytic or thrombectomy candidate Lab Data 03/03/24 12:31 03/03/24 12:31 Radiology Impressions Chest X-Ray 03/03/24 12:03 IMPRESSION: 1. No acute findings. 2. Elevated right hemidiaphragm 3. Low lung volumes 4. Chronic deformity right glenohumeral joint Head CT 03/03/24 12:03 IMPRESSION: 1. No evidence of intracranial hemorrhage or mass effect. 2. Chronic infarct described above. 3. No acute intracranial findings. Laboratory Results WBC 11.29 10^3/uL (3.29-11.43) 03/03/24 12:31 RBC 4.27 10^6/uL (3.85-5.65) 03/03/24 12:31 Hgb 11.00 g/dL (11.27-16.99) L 03/03/24 12:31 Hct 36.2 % (36-47) 03/03/24 12:31 MCV 84.8 fl (85-98) L 03/03/24 12:31 MCH 25.8 pg (27-33) L 03/03/24 12:31 MCHC 30.4 g/dL (30-55) 03/03/24 12:31 RDW 16.0 % (12.1-15.1) H 03/03/24 12:31 Plt Count 288 10^3/cmm (157-399) 03/03/24 12:31 MPV 9.5 fL (7.4-10.4) 03/03/24 12:31 Neut % (Auto) 73.0 % 03/03/24 12:31 Lymph % (Auto) 14.6 % 03/03/24 12:31 [place] % (Auto) 7.4 % 03/03/24 12:31 Eos % (Auto) 3.8 % 03/03/24 12:31 Baso % (Auto) 0.8 % 03/03/24 12:31 Neut # (Auto) 8.23 10^3/uL (1.8-7.7) H 03/03/24 12:31 Lymph # (Auto) 1.7 10^3/uL (0.8-4.8) 03/03/24 12:31 [place] # (Auto) 0.8 10^3/uL (0.2-0.9) 03/03/24 12:31 Eos # (Auto) 0.4 10^3/uL (0.0-0.8) 03/03/24 12:31 Baso # (Auto) 0.1 10^3/uL (0.0-0.1) 03/03/24 12:31 Nucleated RBC % (auto) 0 % 03/03/24 12:31 Nucleated RBCs # 0.0 /100WBC 03/03/24 12:31 Sodium 143 mmol/L (136-145) 03/03/24 12:31 Potassium 4.5 mmol/L (3.5-5.1) 03/03/24 12:31 Chloride 107 mmol/L (98-107) 03/03/24 12:31 Carbon Dioxide 23 mmol/L (22-29) 03/03/24 12:31 Anion Gap 17.5 (5-19) 03/03/24 12:31 BUN 40 mg/dL (8-23) H 03/03/24 12:31 Creatinine 1.8 mg/dL (0.5-0.9) H 03/03/24 12:31 GFR Calculation 28.3 mL/min (90-130) L 03/03/24 12:31 Glucose 114 mg/dL (65-115) 03/03/24 12:31 Calculated Osmolality 307 mOsm/kg (285-295) H 03/03/24 12:31 Calcium 8.8 mg/dL (8.5-10.5) 03/03/24 12:31 Total Bilirubin 0.2 mg/dL (0.15-1.2) 03/03/24 12:31 AST 21 U/L (0-32) 03/03/24 12:31 ALT 18 U/L (0-33) 03/03/24 12:31 Alkaline Phosphatase 127 U/L (35-105) H 03/03/24 12:31 Total Protein 6.3 g/dL (6.6-8.7) L 03/03/24 12:31 Albumin 3.3 g/dL (3.5-5.2) L 03/03/24 12:31 Globulin 3.0 g/dL (1.3-4.6) 03/03/24 12:31 Urine Color Yellow (Yellow) 03/03/24 13:19 Urine Appearance Clear (CLEAR) 03/03/24 13:19 Urine pH 5 (5-7) 03/03/24 13:19 Ur Specific Fletcher 1.015 (1.005-1.030) 03/03/24 13:19 Urine Protein 3+ (Negative) H 03/03/24 13:19 Urine Glucose (UA) Norm (Normal) 03/03/24 13:19 Urine Ketones Negative (Negative) 03/03/24 13:19 Urine Blood 2+ (Negative) H 03/03/24 13:19 Urine Nitrate Negative (Negative) 03/03/24 13:19 Urine Bilirubin Neg (Negative) 03/03/24 13:19 Urine Urobilinogen Norm mg/dL (Negative) 03/03/24 13:19 Ur Leukocyte Esterase Negative (Negative) 03/03/24 13:19 Urine RBC 0-4 /hpf (0-2) H 03/03/24 13:19 Urine WBC None /hpf (0-5) 03/03/24 13:19 Ur Squamous Epith Cells None /hpf (0-5) 03/03/24 13:19 Amorphous Sediment Not Reportable 03/03/24 13:19 Urine Bacteria Trace /hpf (NONE) 03/03/24 13:19 Urine Mucus None /hpf 03/03/24 13:19 Salicylates < 0.3 mg/dL (3-10) L 03/03/24 12:31 Urine Opiates Screen Negative ng/mL (Negative) 03/03/24 13:19 Acetaminophen < 5.0 ug/mL (10-30) L 03/03/24 12:31 Ur Barbiturates Screen Negative ng/mL (Negative) 03/03/24 13:19 Ur Phencyclidine Scrn Negative ng/mL (Negative) 03/03/24 13:19 Ur Amphetamines Screen Negative ng/mL (Negative) 03/03/24 13:19 U Benzodiazepines Scrn Negative ng/mL (Negative) 03/03/24 13:19 Urine Cocaine Screen Negative ng/mL (Negative) 03/03/24 13:19 U Marijuana (THC) Screen Negative ng/mL (Negative) 03/03/24 13:19 Ethyl Alcohol < 10 mg/dL (0-10) 03/03/24 12:31 All radiology interpretation(s) finalized by discharge Discharge Plan Discharge Patient Disposition: Admitted As Inpatient Clinical Impression: Altered mental status Condition: Stable Prescriptions: No Action (DME) Dexcom G7 Sensor Device See Rx Instructions .Route Qty: 1 0RF Rx Instructions: As directed (DME) Dexcom G7 Requirements Engineer Misc See Rx Instructions .Route Qty: 1 6RF Rx Instructions: As directed allopurinol 300 mg tablet 300 mg PO DAILY Qty: 90 0RF potassium chloride 10 mEq capsule, extended release 10 meq PO DAILY Qty: 30 11RF tramadol 50 mg tablet 50 mg PO Q6H PRN (Reason: pain) Qty: 120 5RF atorvastatin 40 mg tablet 40 mg PO DAILY cetirizine 10 mg Tablet 10 mg PO DAILY magnesium hydroxide [Milk of Magnesia] 400 mg/5 mL Suspension 30 ml PO DAILY PRN (Reason: Constipation) calcium carbonate 500 mg calcium (1,250 mg) Tablet,Chewable 500 mg PO Q8H PRN (Reason: gastro-esophageal reflux) insulin glargine [Lantus Solostar U-100 Insulin] 100 unit/mL (3 mL) insulin pen 33 unit SUBCUT BID acetaminophen [Tylenol] 325 mg Tablet 650 mg PO Q6H PRN (Reason: PAIN OR ELEVATED TEMP) omeprazole 20 mg Capsule,Delayed Release(Dr/Ec) 20 mg PO DAILY insulin aspart U-100 [Novolog FlexPen U-100 Insulin] 100 unit/mL (3 mL) insulin pen 15 unit SUBCUT TID Rx Instructions: sliding scale before meals tid 150-200=4 units 201-250=6 units 251-300=10 units 301-400=15 units clopidogrel 75 mg tablet 75 mg PO DAILY metoprolol tartrate 25 mg tablet 37.5 mg PO BID furosemide 40 mg tablet 40 mg PO QAM ondansetron HCl 4 mg tablet 4 mg PO Q6H PRN (Reason: Nausea And Vomiting) olanzapine 2.5 mg tablet 2.5 mg PO BEDTIME Vitamin C 500 mg tablet 500 mg PO DAILY Banophen 25 mg Capsule 25 mg PO Q12H PRN (Reason: Allergy Symptoms) lidocaine 5 % Adhesive Patch,Medicated 1 patch TOPICAL Q12H PRN (Reason: Pain) Rx Instructions: leave on most painful area for up to 12 hrs lisinopril 40 mg tablet 40 mg PO DAILY fluticasone propionate 50 mcg/actuation spray,suspension 1 spray INTRANASAL Q12H PRN (Reason: ALLERGIES) duloxetine 60 mg capsule,delayed release(DR/EC) 60 mg PO DAILY Referrals: Benigno Jennings DO [Primary Care Provider] - Patient Instructions: Altered Mental Status (ED) Coding Level of Care Code ED Acoustic Engineer for [facility] Josefina
[2024-03-03 12:42] LABS: Basophils # 0.1 10^3/uL (0.0-0.1); Basophils % 0.8 %; Eosinophils # 0.4 10^3/uL (0.0-0.8); Eosinophils % 3.8 %; Hematocrit 36.2 % (36-47); Lymphocytes # 1.7 10^3/uL (0.8-4.8); Lymphocytes % 14.6 %; Mean Corpuscular HGB Conc 30.4 g/dL (30-55); Mean Corpuscular Hemoglobin 25.8 pg (27-33); Mean Corpuscular Volume 84.8 fl (85-98); Mean Platelet Volume 9.5 fL (7.4-10.4); Monocytes # 0.8 10^3/uL (0.2-0.9); Monocytes % 7.4 %; Neutrophils # 8.23 10^3/uL (1.8-7.7); Nucleated Red Blood Cells % 0 %; Platelet Count 288 10^3/cmm (157-399); Red Blood Count 4.27 10^6/uL (3.85-5.65); White Blood Count 11.29 10^3/uL (3.29-11.43)
[2024-03-03 12:55] LABS: Alanine Aminotransferase 18 U/L (0-33); Albumin Level 3.3 g/dL (3.5-5.2); Alkaline Phosphatase 127 U/L (35-105); Anion Gap 17.5 (5-19); Aspartate Amino Transferase 21 U/L (0-32); Blood Urea Nitrogen 40 mg/dL (8-23); Calcium 8.8 mg/dL (8.5-10.5); Carbon Dioxide 23 mmol/L (22-29); Chloride 107 mmol/L (98-107); Glomerular Filtration Rate 28.3 mL/min (90-130); Glucose 114 mg/dL (65-115); Osmolality Calculated 307 mOsm/kg (285-295); Potassium 4.5 mmol/L (3.5-5.1); Sodium 143 mmol/L (136-145); Total Bilirubin 0.2 mg/dL (0.15-1.2); Total Protein 6.3 g/dL (6.6-8.7)
[2024-03-03 12:57] LABS: Acetaminophen < 5.0 ug/mL (10-30); Alcohol Level < 10 mg/dL (0-10); Salicylate < 0.3 mg/dL (3-10)
[2024-03-03] MEDS: sodium chloride 0.9% 1,000 ML 999 ML IV (13:47)
[2024-03-03 13:49] LABS: Add Urine Microscopic? YES; Bilirubin Urine Neg (Negative); Blood Urine 2+ (Negative); Glucose Urine UA Norm (Normal); Ketones Urine Negative (Negative); Leukocyte Esterase Urine Negative (Negative); Nitrate Urine Negative (Negative); Protein Urine 3+ (Negative); Specific Gravity, Urine 1.015 (1.005-1.030); Urine Appearance Clear (CLEAR); Urine Color Yellow (Yellow); Urobilinogen Urine Norm (Negative); pH Urine 5 (5-7)
[2024-03-03 13:54] LABS: Amphetamines Screen Urine Negative (Negative); Barbiturates Screen Urine Negative (Negative); Benzodiazepines Screen Urine Negative (Negative); Cocaine Screen Urine Negative (Negative); Opiate Screen Urine Negative (Negative); PCP Screen Urine Negative (Negative); THC Screen Urine Negative (Negative)
[2024-03-03 14:01] LABS: Add Urine Culture? No; Bacteria Urine TRACE /hpf; RBC Urine 0-4 /hpf (0-2)
[2024-03-03 16:45] VITALS: BP 211/99; PULSE 56; RESP 16; O2SAT 96
[2024-03-03] MEDS: hyDRALAzine 20 mg/mL INJ 1 mL 10 MG IVP (17:18)
--- NOTE | 2024-03-03 17:25 | P.HP_ITS ---
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 Patient is not able to tell me anything in particular. She is a poor historian. She has expressive aphasia she is concerned that joint fluid who lives in the hospital has not done anything for her and she is stating that Dr. Uribe has not touched her shoulder. She is very paranoid staying in the hospital. She is moving all of her extremities complaining of weakness of right arm she is hypertensive required antihypertensive regimen. I called assisted living to get more information, as per the [facility], patient has chronic aphasia, this is normally how she talks, she is able to walk independently, on good days she will take her medications otherwise she is hard to deal with sometimes, she needs regular food, today she threatened to slit throat of the resident at the [facility], she also made gestures that she is going to hurt herself that prompted her visit to the ER ER called me to evaluate her for stroke. I do not see any focal deficit, her changes are chronic I did confirm that after talking with assisted living She is hypertensive I will admit her to MedSurg call psych Review of Systems 2 General: Reports: ROS unobtainable due to mental status Medications/Allergies Home Medications Medication Instructions Recorded Confirmed Last Taken Type allopurinol 300 mg tablet 300 mg PO DAILY #90 tabs 05/03/20 03/03/24 03/03/24 Rx clopidogrel 75 mg tablet 75 mg PO DAILY 07/08/20 03/03/24 03/03/24 History metoprolol tartrate 25 mg tablet 37.5 mg PO BID 07/08/20 03/03/24 03/03/24 History acetaminophen 325 mg tablet 650 mg PO Q6H PRN PAIN OR ELEVATED 10/03/21 03/03/24 01/15/24 History (Tylenol) TEMP atorvastatin 40 mg tablet 40 mg PO DAILY 10/03/21 03/03/24 03/02/24 History calcium carbonate 500 mg PO Q8H PRN 10/03/21 03/03/24 03/02/24 History gastro-esophageal reflux cetirizine 10 mg tablet 10 mg PO DAILY 10/03/21 03/03/24 03/03/24 History insulin aspart U-100 100 unit/mL 15 unit SUBCUT TID 10/03/21 03/03/24 03/03/24 History (3 mL) subcutaneous pen (Novolog FlexPen U-100 Insulin aspart) insulin glargine 100 unit/mL (3 33 unit SUBCUT BID 10/03/21 03/03/24 03/03/24 History mL) subcutaneous pen (Lantus Solostar U-100 Insulin) magnesium hydroxide 400 mg/5 mL 30 ml PO DAILY PRN Constipation 10/03/21 03/03/24 Unknown History oral suspension (Milk of Magnesia) omeprazole 20 mg capsule,delayed 20 mg PO DAILY 10/03/21 03/03/24 03/03/24 History release potassium chloride 10 mEq 10 meq PO DAILY #30 caps 09/12/22 03/03/24 03/03/24 Rx capsule,extended release 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 meter,continuous #1 ea 03/12/23 03/03/24 Unknown Rx (Dexcom G7 Interventional Tech) 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 sensor (Dexcom G7 #1 ea 03/12/23 03/03/24 Unknown Rx Sensor device) tramadol 50 mg tablet 50 mg PO Q6H PRN pain #120 tabs 11/18/23 03/03/24 03/02/24 Rx ascorbic acid (vitamin C) 500 mg 500 mg PO DAILY 03/03/24 03/03/24 03/03/24 History tablet (Vitamin C) diphenhydramine HCl 25 mg capsule 25 mg PO Q12H PRN Allergy Symptoms 03/03/24 03/03/24 03/02/24 History (Banophen) duloxetine 60 mg capsule,delayed 60 mg PO DAILY MAJOR DEPRESSIVE 03/03/24 03/03/24 03/03/24 History release DISORDER fluticasone propionate 50 1 spray intranasal Q12H PRN 03/03/24 03/03/24 Unknown History mcg/actuation nasal ALLERGIES spray,suspension furosemide 40 mg tablet 40 mg PO QAM 03/03/24 03/03/24 03/03/24 History lidocaine 5 % topical patch 1 patch topical Q12H PRN Pain 03/03/24 03/03/24 Unknown History lisinopril 40 mg tablet 40 mg PO DAILY 03/03/24 03/03/24 03/03/24 History olanzapine 2.5 mg tablet 2.5 mg PO BEDTIME 03/03/24 03/03/24 03/02/24 History ondansetron HCl 4 mg tablet 4 mg PO Q6H PRN Nausea And Vomiting 03/03/24 03/03/24 Unknown History Allergies Allergy/AdvReac Type Severity Reaction Status Date / Time clarithromycin [From Biaxin] Allergy nausea Verified 02/04/24 16:07 clindamycin Allergy shock Verified 02/04/24 16:07 diclofenac Allergy swelling Verified 02/04/24 16:07 enalapril Allergy unknown Verified 02/04/24 16:07 ketorolac [From Toradol] Allergy short of Verified 02/04/24 16:07 breath losartan [From Cozaar] Allergy shock Verified 02/04/24 16:07 nifedipine [From Procardia] Allergy hives Verified 02/04/24 16:07 pregabalin [From Lyrica] Allergy unknown Verified 02/04/24 16:07 Sulfa (Sulfonamide Allergy anaphylasix Verified 02/04/24 16:07 Antibiotics) PFSH Acute 2 PFSH: Medical History Rotator cuff tear, right Diabetes mellitus insulin dependent Essential (primary) hypertension Depression due to cerebrovascular accident (CVA) Expressive aphasia Hypomagnesemia Bilateral pneumonia Hyponatremia Hyperkalemia DELORIS (acute kidney injury) Right humeral fracture Metabolic encephalopathy Resolved Acute delirium Resolved Pneumonia due to COVID-19 virus Resolved Poor social situation Multinodular thyroid Acute embolic stroke Recurrent falls Resolved History of CVA (cerebrovascular accident) Acute hypersomnolence disorder LEROY on CPAP Essential hypertension Wernicke dysphasia Diabetes mellitus with neuropathy Mixed hyperlipidemia Surgical History History of nasal sinusotomy History of cholecystectomy History of tonsillectomy History of repair of rotator cuff History of hysterectomy for indication other than malignancy History of bursectomy Hx of adenoidectomy Status post anal fissurectomy History of colonoscopy Family History Mother CAD (coronary artery disease) Other Asthma Cancer Diabetes Heart disease Hypertension Stroke Social History Smoking and tobacco/nicotine status: former use of tobacco/nicotine Alcohol intake: current Alcohol intake frequency: few times a month Substance/Drug Use: never Vitals/I&O/Wt Last Vital Signs Temp 98.1 F 03/03/24 11:55 Pulse 56 L 03/03/24 16:45 Resp 16 03/03/24 16:45 BP 211/99 03/03/24 16:45 Pulse Ox 96 03/03/24 16:45 O2 Del Method Room Air 03/03/24 16:45 Physical Exam 2 Narrative: Morbid obese Awake and alert Expressive aphasia Able to get up, moving all of her extremities Right shoulder weakness S1, S2 Hypertensive Paranoid She is sitting at the bedside She got extremely angry when I told her that I am the admitting physician Data 03/03/24 12:31 03/03/24 12:31 A&P Assessment and plan (1) Anxiety and depression: (2) LEROY on CPAP: (3) Lives in assisted living facility: (4) Expressive aphasia: (5) Paranoid: Plan Expressive aphasia Paranoia Called psych dictaphone mechanic I do not see any focal deficit Her changes are chronic I will admit to MedSurg for hypertensive urgency Continue antihypertensive regimen DVT prophylaxis added I will use consistent carb diet with sliding scale I will reduce the dose of insulin Check B12 and TSH Full code Dr. Persaud notified and consulted, he will write his recommendations Patient medical dosimetrist, I have to call to get more information, previous records reviewed, spoke with Dr. Persaud, spoke with the ER physician Her shoulder MRI did show a nonunion of fracture CBC is unremarkable BMP is unremarkable acute on chronic kidney disease secondary to use of lisinopril and dehydration, I will resume her diet, To avoid more agitation I would not give her IV fluids overnight Encourage increased p.o. intake Attestations 2 Medical Necessity Statement*: Anticipating discharge within 48 hours Diagnoses Anxiety and depression F41.9; F32.A LEROY on CPAP G47.33; Z99.89 Lives in assisted living facility Z59.3 Expressive aphasia R47.01 Paranoid F22
[2024-03-03 20:00] VITALS: BP 180/92; PULSE 54; RESP 18; O2SAT 97
--- NOTE | 2024-03-03 20:42 | PC.NURSE ---
this nurse checked pts bp manually. bp was 180/92. this nurse asked dr hunt if he still wanted hydralazine given. he said no and he wants pt to be hypertensive.
[2024-03-03 21:45] VITALS: BP 178/93; PULSE 57; RESP 16; TEMP 36.7; O2SAT 96
[2024-03-03 22:02] VITALS: BMI 44.1
[2024-03-03 22:18] VITALS: BP 142/98; PULSE 71; RESP 16; TEMP 36.8; O2SAT 96
[2024-03-03 23:24] LABS: Glucose Point of Care 201 mg/dL (70-110)
[2024-03-03] MEDS: amlodipine 10 mg Tablet PO (23:24)
[2024-03-03] MEDS: insulin glargine 100 units/1 mL 30 UNIT SUBCUT (23:24)
[2024-03-03] MEDS: acetaminophen 500 mg Tablet PO (23:24)
[2024-03-03 23:32] LABS: Estmated Average Glucose 163; Hemoglobin A1C 7.3 % (4.0-6.0)
[2024-03-04 00:31] VITALS: BP 144/82; PULSE 73; RESP 18; TEMP 36.5; O2SAT 93
[2024-03-04 00:56] LABS: Vitamin B12 516 pg/mL (232-1245)
[2024-03-04 04:00] VITALS: BP 112/76; PULSE 67; RESP 18; TEMP 36.9; O2SAT 94
[2024-03-04 04:51] LABS: Basophils # 0.1 10^3/uL (0.0-0.1); Basophils % 0.7 %; Eosinophils # 0.5 10^3/uL (0.0-0.8); Eosinophils % 3.9 %; Lymphocytes # 1.8 10^3/uL (0.8-4.8); Lymphocytes % 13.8 %; Mean Corpuscular HGB Conc 30.5 g/dL (30-55); Mean Corpuscular Hemoglobin 25.5 pg (27-33); Mean Corpuscular Volume 83.7 fl (85-98); Mean Platelet Volume 9.7 fL (7.4-10.4); Monocytes # 0.9 10^3/uL (0.2-0.9); Monocytes % 6.9 %; Neutrophils # 9.43 10^3/uL (1.8-7.7); Neutrophils % 74.5 %; Nucleated Red Blood Cells % 0 %; Platelet Count 287 10^3/cmm (157-399); Red Blood Count 4.66 10^6/uL (3.85-5.65); Red Cell Distribution Width 16.2 % (12.1-15.1); White Blood Count 12.68 10^3/uL (3.29-11.43)
[2024-03-04 05:12] LABS: Anion Gap 17.7 (5-19); Blood Urea Nitrogen 34 mg/dL (8-23); Calcium 8.9 mg/dL (8.5-10.5); Carbon Dioxide 21 mmol/L (22-29); Chloride 109 mmol/L (98-107); Creatinine Clr Calc Pharmacy 56.8505; Glomerular Filtration Rate 41.2 mL/min (90-130); Glucose 97 mg/dL (65-115); Magnesium 1.5 mg/dL (1.7-2.3); Osmolality Calculated 306 mOsm/kg (285-295); Phosphorus 4.1 mg/dL (2.5-4.5); Potassium 3.7 mmol/L (3.5-5.1); Sodium 144 mmol/L (136-145)
[2024-03-04 07:32] VITALS: BP 183/84; PULSE 69; RESP 16; TEMP 36.4; O2SAT 95
--- NOTE | 2024-03-04 08:22 | P.DS_ITS ---
Discharge Providers Date of Admission: 03/03/24 16:29 Date of Discharge: March 04, 2024 Attending Provider at Admission: Nuria Armijo MD Attending Provider at Discharge: Nuria Armijo MD Primary Care Provider: Benigno Jennings DO Diagnoses at Discharge Discharge Diagnosis (1) Anxiety and depression: Status: Acute (2) LEROY on CPAP: Status: Acute (3) Lives in assisted living facility: Status: Chronic (4) Expressive aphasia: Status: Acute (5) Paranoid: Status: Acute Reason for Visit Reason for Visit: SELF-HARM Hospital Course Hospital Course Please see my detailed H&P In summary 64-year-old female who was admitted for management and evaluation of expressive aphasia, after interrogation it was found out that this is chronic, she did not have any focal deficits, no signs of stroke, patient was complaining of dysuria hence she is being discharged on oral antibiotics for possible UTI however UA is unremarkable. Patient is stating that she made statements of hurting herself out of frustration she is not planning to do any thing to harm herself or any other resident. Patient is stating that she gets frustrated when people around her because anxiety. I have spoken with Dr. Persaud who cleared Ms. Wallace as well to return to assisted living. Physical Exam Narrative: Awake and alert Sitting at the bedside Speech is much clear easy to understand at the day of discharge She is hemodynamically stable No new focal deficit She has chronic right-sided rotator cuff injury, right shoulder weakness Discharge Data Studies Completed and Pending Completed Studies During Hospitalization Category Date Time Status CT head wo con* [id number] Stat Cat Scan 03/03/24 12:03 Completed XR chest 1V portable [id number] Stat Exams 03/03/24 12:03 Completed Pending at discharge Category Date Time Status MR head wo con* [id number] Routine MRI 03/03/24 21:55 Ordered Radiology Impressions Chest X-Ray 03/03/24 12:03 IMPRESSION: 1. No acute findings. 2. Elevated right hemidiaphragm 3. Low lung volumes 4. Chronic deformity right glenohumeral joint Head CT 03/03/24 12:03 IMPRESSION: 1. No evidence of intracranial hemorrhage or mass effect. 2. Chronic infarct described above. 3. No acute intracranial findings. Laboratory Results WBC 12.68 10^3/uL (3.29-11.43) H 03/04/24 04:38 RBC 4.66 10^6/uL (3.85-5.65) 03/04/24 04:38 Hgb 11.90 g/dL (11.27-16.99) 03/04/24 04:38 Hct 39.0 % (36-47) 03/04/24 04:38 MCV 83.7 fl (85-98) L 03/04/24 04:38 MCH 25.5 pg (27-33) L 03/04/24 04:38 MCHC 30.5 g/dL (30-55) 03/04/24 04:38 RDW 16.2 % (12.1-15.1) H 03/04/24 04:38 Plt Count 287 10^3/cmm (157-399) 03/04/24 04:38 MPV 9.7 fL (7.4-10.4) 03/04/24 04:38 Neut % (Auto) 74.5 % 03/04/24 04:38 Lymph % (Auto) 13.8 % 03/04/24 04:38 [place]henry % (Auto) 6.9 % 03/04/24 04:38 Eos % (Auto) 3.9 % 03/04/24 04:38 Baso % (Auto) 0.7 % 03/04/24 04:38 Neut # (Auto) 9.43 10^3/uL (1.8-7.7) H 03/04/24 04:38 Lymph # (Auto) 1.8 10^3/uL (0.8-4.8) 03/04/24 04:38 Mchenry # (Auto) 0.9 10^3/uL (0.2-0.9) 03/04/24 04:38 Eos # (Auto) 0.5 10^3/uL (0.0-0.8) 03/04/24 04:38 Baso # (Auto) 0.1 10^3/uL (0.0-0.1) 03/04/24 04:38 Nucleated RBC % (auto) 0 % 03/04/24 04:38 Nucleated RBCs # 0.0 /100WBC 03/04/24 04:38 Sodium 144 mmol/L (136-145) 03/04/24 04:38 Potassium 3.7 mmol/L (3.5-5.1) 03/04/24 04:38 Chloride 109 mmol/L (98-107) H 03/04/24 04:38 Carbon Dioxide 21 mmol/L (22-29) L 03/04/24 04:38 Anion Gap 17.7 (5-19) 03/04/24 04:38 BUN 34 mg/dL (8-23) H 03/04/24 04:38 Creatinine 1.3 mg/dL (0.5-0.9) H 03/04/24 04:38 GFR Calculation 41.2 mL/min (90-130) L 03/04/24 04:38 Glucose 97 mg/dL (65-115) 03/04/24 04:38 POC Glucose 201 mg/dL (70-110) H 03/03/24 23:19 Estimat Average Glucose 163 03/03/24 12:31 Hemoglobin A1c 7.3 % (4.0-6.0) H 03/03/24 12:31 Calculated Osmolality 306 mOsm/kg (285-295) H 03/04/24 04:38 Calcium 8.9 mg/dL (8.5-10.5) 03/04/24 04:38 Phosphorus 4.1 mg/dL (2.5-4.5) 03/04/24 04:38 Magnesium 1.5 mg/dL (1.7-2.3) L 03/04/24 04:38 Total Bilirubin 0.2 mg/dL (0.15-1.2) 03/03/24 12:31 AST 21 U/L (0-32) 03/03/24 12:31 ALT 18 U/L (0-33) 03/03/24 12:31 Alkaline Phosphatase 127 U/L (35-105) H 03/03/24 12:31 Total Protein 6.3 g/dL (6.6-8.7) L 03/03/24 12:31 Albumin 3.3 g/dL (3.5-5.2) L 03/03/24 12:31 Globulin 3.0 g/dL (1.3-4.6) 03/03/24 12:31 Vitamin B12 516 pg/mL (232-1245) 03/03/24 12:31 Urine Color Yellow (Yellow) 03/03/24 13:19 Urine Appearance Clear (CLEAR) 03/03/24 13:19 Urine pH 5 (5-7) 03/03/24 13:19 Ur Specific [place] 1.015 (1.005-1.030) 03/03/24 13:19 Urine Protein 3+ (Negative) H 03/03/24 13:19 Urine Glucose (UA) Norm (Normal) 03/03/24 13:19 Urine Ketones Negative (Negative) 03/03/24 13:19 Urine Blood 2+ (Negative) H 03/03/24 13:19 Urine Nitrate Negative (Negative) 03/03/24 13:19 Urine Bilirubin Neg (Negative) 03/03/24 13:19 Urine Urobilinogen Norm mg/dL (Negative) 03/03/24 13:19 Ur Leukocyte Esterase Negative (Negative) 03/03/24 13:19 Urine RBC 0-4 /hpf (0-2) H 03/03/24 13:19 Urine WBC None /hpf (0-5) 03/03/24 13:19 Ur Squamous Epith Cells None /hpf (0-5) 03/03/24 13:19 Amorphous Sediment Not Reportable 03/03/24 13:19 Urine Bacteria Trace /hpf (NONE) 03/03/24 13:19 Urine Mucus None /hpf 03/03/24 13:19 Salicylates < 0.3 mg/dL (3-10) L 03/03/24 12:31 Urine Opiates Screen Negative ng/mL (Negative) 03/03/24 13:19 Acetaminophen < 5.0 ug/mL (10-30) L 03/03/24 12:31 Ur Barbiturates Screen Negative ng/mL (Negative) 03/03/24 13:19 Ur Phencyclidine Scrn Negative ng/mL (Negative) 03/03/24 13:19 Ur Amphetamines Screen Negative ng/mL (Negative) 03/03/24 13:19 U Benzodiazepines Scrn Negative ng/mL (Negative) 03/03/24 13:19 Urine Cocaine Screen Negative ng/mL (Negative) 03/03/24 13:19 U Marijuana (THC) Screen Negative ng/mL (Negative) 03/03/24 13:19 Ethyl Alcohol < 10 mg/dL (0-10) 03/03/24 12:31 Vitals Last Vital Signs Temp 97.5 F L 03/04/24 07:32 Pulse 69 03/04/24 07:32 Resp 16 03/04/24 07:32 BP 183/84 03/04/24 07:32 Pulse Ox 95 03/04/24 07:32 O2 Del Method Room Air 03/04/24 07:32 Discharge Plan Discharge Patient Disposition: Home Condition: Stable Prescriptions: New levofloxacin 750 mg tablet 750 mg PO DAILY 5 Days Qty: 5 0RF Continued (DME) Dexcom G7 Sensor Device See Rx Instructions .Route Qty: 1 0RF Rx Instructions: As directed (DME) Dexcom G7 Director Of Midwifery/Staff Midwife Misc See Rx Instructions .Route Qty: 1 6RF Rx Instructions: As directed allopurinol 300 mg tablet 300 mg PO DAILY Qty: 90 0RF potassium chloride 10 mEq capsule, extended release 10 meq PO DAILY Qty: 30 11RF tramadol 50 mg tablet 50 mg PO Q6H PRN (Reason: pain) Qty: 120 5RF atorvastatin 40 mg tablet 40 mg PO DAILY cetirizine 10 mg Tablet 10 mg PO DAILY magnesium hydroxide [Milk of Magnesia] 400 mg/5 mL Suspension 30 ml PO DAILY PRN (Reason: Constipation) calcium carbonate 500 mg calcium (1,250 mg) Tablet,Chewable 500 mg PO Q8H PRN (Reason: gastro-esophageal reflux) insulin glargine [Lantus Solostar U-100 Insulin] 100 unit/mL (3 mL) insulin pen 33 unit SUBCUT BID acetaminophen [Tylenol] 325 mg Tablet 650 mg PO Q6H PRN (Reason: PAIN OR ELEVATED TEMP) omeprazole 20 mg Capsule,Delayed Release(Dr/Ec) 20 mg PO DAILY insulin aspart U-100 [Novolog FlexPen U-100 Insulin] 100 unit/mL (3 mL) insulin pen 15 unit SUBCUT TID Rx Instructions: sliding scale before meals tid 150-200=4 units 201-250=6 units 251-300=10 units 301-400=15 units clopidogrel 75 mg tablet 75 mg PO DAILY metoprolol tartrate 25 mg tablet 37.5 mg PO BID furosemide 40 mg tablet 40 mg PO QAM ondansetron HCl 4 mg tablet 4 mg PO Q6H PRN (Reason: Nausea And Vomiting) olanzapine 2.5 mg tablet 2.5 mg PO BEDTIME Vitamin C 500 mg tablet 500 mg PO DAILY Banophen 25 mg Capsule 25 mg PO Q12H PRN (Reason: Allergy Symptoms) lidocaine 5 % Adhesive Patch,Medicated 1 patch TOPICAL Q12H PRN (Reason: Pain) Rx Instructions: leave on most painful area for up to 12 hrs lisinopril 40 mg tablet 40 mg PO DAILY fluticasone propionate 50 mcg/actuation spray,suspension 1 spray INTRANASAL Q12H PRN (Reason: ALLERGIES) duloxetine 60 mg capsule,delayed release(DR/EC) 60 mg PO DAILY Discharge Orders: Discharge Order (Routine); Ordered 03/04/24 Ordered By: Nuria Armijo Referrals: Benigno Jennings DO [Primary Care Provider] - (We have notified your physician's clinic of the need for a follow-up appointment to be scheduled. If you have not heard from them within the next 2 business days, please call them directly. ) Patient Instructions: Levofloxacin (By mouth) (Levaquin, Levaquin Leva-farida), Altered Mental Status (ED), Opioid Safety Discharge Attestations Time Spent in Discharge Care*: less than 30 min Status at Discharge: Cognitive status at discharge: cognitively intact , Behavioral status at discharge: cooperative , Quality Metrics Clinical Quality Measures [ No reported AMI, CVA or VTE this stay] Coding Level of Care Code Acute Code for Chg Fwd Diagnoses Anxiety and depression F41.9; F32.A LEROY on CPAP G47.33; Z99.89 Lives in assisted living facility Z59.3 Expressive aphasia R47.01 Paranoid F22
--- NOTE | 2024-03-04 11:11 | W.PM.NPUH&PS ---
Providers/Chief Complaint Admitting Physician: Nuria Armijo MD Primary Care Provider: Benigno Jennings DO Chief Complaint: SELF-HARM HPI NPU History of Present Illness Hilda Wallace is a 64 year old female who presented to the emergency department with the following report: Chief Complaint: Altered Mental Status Stated Complaint: SELF-HARM Time Seen by Provider: 03/03/24 11:52 Source: EMS Mode of arrival: EMS Limitations: altered mental status History of Present Illness: 64-year-old female who is here from assisted living. Patient has history of dementia and stroke seizure states she has been more altered this week than her typical. They state that she made a gesture at her throat patient here is only able to tell me her name I did ask her if she is suicidal she says no she keeps telling stories about where she had lived before and does not answer any my questions appropriately. No fever. [facility] for [facility] treatment of those issues. Patient is known to this technical document writer from previous evaluation about 3-1/2 years ago. An excerpt of that consult is included below for context. She presents today as a very poor historian secondary to sequela of her CVA which has left her with a clear expressive aphasia. She often can get in the neighborhood of an idea but saying the precise words generally escapes her. But in her conversation she was able to express lacking suicidal thinking. She did endorse being depressed but knowing that her situation is not going to change. She talked about not having family and living at a facility. She reports having some frustration and making a comment out of frustration but she denied being suicidal but denied ever doing anything to act on any bad thoughts. She denied any new issues but we discussed the fact that she has multiple medical problems and that the primary team plan to investigate to make sure there were no other issues. We discussed a plan to advise the treatment team that once she was medically cleared that we felt she was safe to return to her facility and she was in agreement with that. Per her 07/26/2020 [facility] inpatient psychiatric consult: History of Present Illness Hilda Wallace is a 60 year old female who presented to the emergency department with the following report: Chief Complaint: COVID symptoms Stated Complaint: WEAKNESS; COVID EXPOSURE; NAUSEA Time Seen by Provider: 07/22/20 14:46 Source: patient and EMS Mode of arrival: EMS Limitations: altered mental status Triage information: Has fever, cough or shortness of breath. Exposure to COVID + person last 14 days History of Present Illness: HPI Narrative: 60-year-old female who was brought in by EMS. Her history is difficult to obtain as the patient is confused. It is hard to tell exactly what is going on but according to EMS her house is very unclean, there is cat feces scattered all over the house, the house is dirty and not arranged properly. The patient had a blood glucose of 485 per EMS. According to them she was alert and oriented with the EMS crew and had complained of feeling unwell for about 2 days. She felt she had a fever today. Going through her primary care providers note she was seen there 3 days ago and his note is pretty concerning that the patient was in a poor mental state and was unlikely to be mentally capable of making her decisions. She was apparently using words in an inappropriate manner did not seem to understand any of the questions that were asked and apparently had some dysphasia. She is unable to answer most questions and also says is that she is sick. She had a temperature of more than 102 ?F on arrival to the emergency department COVID Results: SARS-CoV-2 Antigen (Rapid)Positive (Negative) 07/22/20 16: Nasal/Oral Coronavirus 2019 [id number]/05/20 16:. She was admitted to the [facility] Covid unit for definitive treatment of those issues. They have been working with her to manage her Covid symptoms and 4. At times appeared to have some delirium. This delirium was superimposed on a expressive aphasia that she has is a previous medical condition. Circumstances in her home have changed and great concerns were raised about her returning home and having the ability to independently care for herself based on all the evidence that the primary team has. Attempts to work with her exploring the risks, benefits and alternatives of going to a facility where she will have assistance at the very least initially if not ongoing met with fluid resistance and no consideration. The primary team's determination is that she lacks capacity and a psychiatric consult was requested to explore this question. I met with Hidla to try to determine her capacity in regards to her medical care. Attempts to gain an understanding of this were fairly difficult given her aphasia and her clear insistence that because she says this is how she wants things to be and because she expresses it firmly then it should be that way. After extensive conversation in a more informal process I have very formally explained to her that I was trying to assess her capacity for this decision and explained to her the four tenants of capacity being that she needed to show me clearly she 1, understood the situation, 2, appreciated the consequences of her decision, 3, demonstrated reasoning in her thinking process and 4, was able to communicate her wishes. Giving her some latitude for communication concerns she showed very limited understanding of her situation and the nuances and challenges that it could bring. She was clearly capable of communicating what her wishes consideration are. Gathering an accurate history of her psychiatric history, substance abuse history, family history etc. were very limited and given that the specific task in the consult was capacity determination I would request that we refer to her predocumentation for this information. What was noteworthy was that she has been living with her parents very recently but they are both now and care home/assisted home care and will not be available to assist her as they have in the past. She reportedly would be in a home with without clear assistance and with a lot of responsibility outside of her own self-care including the care of multiple pets which might even be too many pets for the situation. The welfare of those Tests appear to be for most in her mind and even possibly I had of her own wellbeing. Meds NPU Home Medications Medication Instructions Recorded Confirmed Last Taken Type allopurinol 300 mg tablet 300 mg PO DAILY #90 tabs 05/03/20 03/03/24 03/03/24 Rx clopidogrel 75 mg tablet 75 mg PO DAILY 07/08/20 03/03/24 03/03/24 History metoprolol tartrate 25 mg tablet 37.5 mg PO BID 07/08/20 03/03/24 03/03/24 History acetaminophen 325 mg tablet 650 mg PO Q6H PRN PAIN OR ELEVATED 10/03/21 03/03/24 01/15/24 History (Tylenol) TEMP atorvastatin 40 mg tablet 40 mg PO DAILY 10/03/21 03/03/24 03/02/24 History calcium carbonate 500 mg PO Q8H PRN 10/03/21 03/03/24 03/02/24 History gastro-esophageal reflux cetirizine 10 mg tablet 10 mg PO DAILY 10/03/21 03/03/24 03/03/24 History insulin aspart U-100 100 unit/mL 15 unit SUBCUT TID 10/03/21 03/03/24 03/03/24 History (3 mL) subcutaneous pen (Novolog FlexPen U-100 Insulin aspart) insulin glargine 100 unit/mL (3 33 unit SUBCUT BID 10/03/21 03/03/24 03/03/24 History mL) subcutaneous pen (Lantus Solostar U-100 Insulin) magnesium hydroxide 400 mg/5 mL 30 ml PO DAILY PRN Constipation 10/03/21 03/03/24 Unknown History oral suspension (Milk of Magnesia) omeprazole 20 mg capsule,delayed 20 mg PO DAILY 10/03/21 03/03/24 03/03/24 History release potassium chloride 10 mEq 10 meq PO DAILY #30 caps 09/12/22 03/03/24 03/03/24 Rx capsule,extended release 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 meter,continuous #1 ea 03/12/23 03/03/24 Unknown Rx (Dexcom G7 [employer]) 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 sensor (Dexcom G7 #1 ea 03/12/23 03/03/24 Unknown Rx Sensor device) tramadol 50 mg tablet 50 mg PO Q6H PRN pain #120 tabs 11/18/23 03/03/24 03/02/24 Rx ascorbic acid (vitamin C) 500 mg 500 mg PO DAILY 03/03/24 03/03/24 03/03/24 History tablet (Vitamin C) diphenhydramine HCl 25 mg capsule 25 mg PO Q12H PRN Allergy Symptoms 03/03/24 03/03/24 03/02/24 History (Banophen) duloxetine 60 mg capsule,delayed 60 mg PO DAILY MAJOR DEPRESSIVE 03/03/24 03/03/24 03/03/24 History release DISORDER fluticasone propionate 50 1 spray intranasal Q12H PRN 03/03/24 03/03/24 Unknown History mcg/actuation nasal ALLERGIES spray,suspension furosemide 40 mg tablet 40 mg PO QAM 03/03/24 03/03/24 03/03/24 History lidocaine 5 % topical patch 1 patch topical Q12H PRN Pain 03/03/24 03/03/24 Unknown History lisinopril 40 mg tablet 40 mg PO DAILY 03/03/24 03/03/2403/03/24 History olanzapine 2.5 mg tablet 2.5 mg PO BEDTIME 03/03/24 03/03/24 03/02/24 History ondansetron HCl 4 mg tablet 4 mg PO Q6H PRN Nausea And Vomiting 03/03/24 03/03/24 Unknown History levofloxacin 750 mg tablet 750 mg PO DAILY 5 days #5 tabs 03/04/24 Unknown Rx Allergies Allergy/AdvReac Type Severity Reaction Status Date / Time clarithromycin [From Biaxin] Allergy nausea Verified 02/04/24 16:07 clindamycin Allergy shock Verified 02/04/24 16:07 diclofenac Allergy swelling Verified 02/04/24 16:07 enalapril Allergy unknown Verified 02/04/24 16:07 ketorolac [From Toradol] Allergy short of Verified 02/04/24 16:07 breath losartan [From Cozaar] Allergy shock Verified 02/04/24 16:07 nifedipine [From Procardia] Allergy hives Verified 02/04/24 16:07 pregabalin [From Lyrica] Allergy unknown Verified 02/04/24 16:07 Sulfa (Sulfonamide Allergy anaphylasix Verified 02/04/24 16:07 Antibiotics) PFSH NPU PFSH: Medical History Rotator cuff tear, right Diabetes mellitus insulin dependent Essential (primary) hypertension Depression due to cerebrovascular accident (CVA) Expressive aphasia Hypomagnesemia Bilateral pneumonia Hyponatremia Hyperkalemia DELORIS (acute kidney injury) Right humeral fracture Metabolic encephalopathy Resolved Acute delirium Resolved Pneumonia due to COVID-19 virus Resolved Poor social situation Multinodular thyroid Acute embolic stroke Recurrent falls Resolved History of CVA (cerebrovascular accident) Acute hypersomnolence disorder LEROY on CPAP Essential hypertension [place]ern[place]ke dysphasia Diabetes mellitus with neuropathy Mixed hyperlipidemia Surgical History History of nasal sinusotomy History of cholecystectomy History of tonsillectomy History of repair of rotator cuff History of hysterectomy for indication other than malignancy History of bursectomy Hx of adenoidectomy Status post anal fissurectomy History of colonoscopy Family History Mother CAD (coronary artery disease) Other Asthma Cancer Diabetes Heart disease Hypertension Stroke Social History Smoking and tobacco/nicotine status: former use of tobacco/nicotine Alcohol intake: current Alcohol intake frequency: few times a month Substance/Drug Use: never Mental Status Exam MSE Comments: This is an obese versus morbidly white female with hospital gown on with limited grooming and eye contact. No abnormal movements except for occasional psychomotor agitation. Mostly cooperative with exam in mild distress at times. Speech was normal rate and occasionally increased volume. Her words were at times near word salad but other x 1 could draw from her clear aphasia the essence of what she was trying to communicate but her delivery was very staccatic and that her delivery was choppy as she attempted to find words and would have paraphasias where she would say collections of words attempting to get at the meaning of one word. Mood described as fine affect congruent. Thought process seeming disorganized but having some organization if you really followed her lines of thinking. Thought content: Denied suicidal or homicidal ideation, there were no delusions reported or noted, she denied any auditory or visual hallucinations. Attention and concentration were limited and memory was intermittently reliable but none were formally tested. She is alert and oriented x person and place. Insight and judgment appeared fair, impulse control limited. Vitals/I&O/Wt Last Vital Signs Temp 97.5 F L 03/04/24 07:32 Pulse 69 03/04/24 07:32 Resp 16 03/04/24 07:32 BP 183/84 03/04/24 07:32 Pulse Ox 95 03/04/24 07:32 O2 Del Method Room Air 03/04/24 07:32 03/03/24 03/04/24 03/04/24 22:59 06:59 14:59 Intake Total 1000 / 1000 120 / 120 Balance 1000 / 1000 120 / 120 Weight last 48 hrs Weight 122.13 kg Weight 120.429 kg Data NPU 03/04/24 04:38 03/04/24 04:38 A&P Assessment and plan (1) Lives in assisted living facility: (2) Anxiety and depression: (3) Paranoid: (4) Diabetes mellitus with neuropathy: Qualifiers: Diabetes mellitus type: type 2 Diabetes mellitus [facility] insulin use: with ocean transportation intermediary use Qualified Code(s): E11.40 - Type 2 diabetes mellitus with diabetic neuropathy, unspecified; Z79.4 - shelter (current) use of insulin (5) Insulin dependent type 2 diabetes mellitus: (6) Hyponatremia: Plan This is a 64-year-old white female who presented to the emergency department with reports of suicidal threats and concern for lethality from her residential facility with a history of a CVA and a baseline expressive aphasia secondary to said CVA history of depression and anxiety but denying any lethality. 1. Continue current medication. 2. Patient acknowledge the events of earlier but denied any active suicidal thoughts and appeared to have no credible lethality. 3. She appears to be at baseline without current psychiatric concerns. Would agree with discharge to home once medically cleared. Attestations NPU Medical Necessity Statement*: N/A. Please see primary team note for medical necessity but agree with discharge back to facility. Coding Level of Care Code Acute Code for Chg Fwd Diagnoses Lives in assisted living facility Z59.3 Anxiety and depression F41.9; F32.A Paranoid F22 Type 2 diabetes mellitus with diabetic neuropathy, with long-term current use of insulin E11.40; Z79.4 Diabetes mellitus type: type 2 Diabetes mellitus [facility] insulin use: with [facility] use Insulin dependent type 2 diabetes mellitus E11.9; Z79.4 Hyponatremia E87.1
[2024-03-04 13:01] VITALS: BP 183/84; PULSE 69; RESP 16; TEMP 36.4; O2SAT 95
== END 2024-03-04 12:20 | disposition home or self-care (01) ==
LOC: ER 16:37 → MEDSURG 18:53
PROVIDERS: Admitting Provider Internal Medicine; Emergency Provider Emergency Medicine; PCP Family Medicine; Visit Provider Internal Medicine
DX: R47.01 Aphasia (principal); F41.9 Anxiety disorder, unspecified; F32.A Depression, unspecified; G47.33 Obstructive sleep apnea (adult) (pediatric); Z99.89 Dependence on other enabling machines and devices; I69.320 Aphasia following cerebral infarction; I69.351 Hemiplegia and hemiparesis following cerebral infarction affecting right dominant side; I10 Essential (primary) hypertension; Z79.4 Long term (current) use of insulin; E11.42 Type 2 diabetes mellitus with diabetic polyneuropathy; E78.2 Mixed hyperlipidemia; Z91.81 History of falling; Z87.891 Personal history of nicotine dependence
CPT/HCPCS: 36415; 36416; 70450; 71045; 80048; 80053; 80306; 80307; 81001; 82607; 82962; 83036; 83735; 84100; 85025; 93005; 96361; 96372; 96374; 96376; 99285; G0378; J0360; J1815; J7030

== ENCOUNTER 2024-03-13 10:46 | Outpatient (CLI) | payer MEDICARE, SELFPAY ==
[2024-03-13 11:52] LABS: Estmated Average Glucose 151; Hemoglobin A1C 6.9 % (4.0-6.0)
[2024-03-13 12:15] LABS: Alanine Aminotransferase 17 U/L (0-33); Albumin Level 3.2 g/dL (3.5-5.2); Alkaline Phosphatase 98 U/L (35-105); Anion Gap 13.1 (5-19); Aspartate Amino Transferase 19 U/L (0-32); Blood Urea Nitrogen 36 mg/dL (8-23); Calcium 8.9 mg/dL (8.5-10.5); Carbon Dioxide 26 mmol/L (22-29); Chloride 102 mmol/L (98-107); Chol HDL Ratio 4.58 mg/dL (0.0-4.40); Cholesterol 183 mg/dL (0-200); Globulin 2.7 g/dL (1.3-4.6); Glomerular Filtration Rate 32.5 mL/min (90-130); Glucose 127 mg/dL (65-115); HDL Cholesterol 40 mg/dL (60-100); LDL Cholesterol Calculated 106 mg/dL (50-129); LDL HDL Ratio 2.65 RATIO (0.00-3.22); Magnesium 1.6 mg/dL (1.7-2.3); Osmolality Calculated 294 mOsm/kg (285-295); Potassium 4.1 mmol/L (3.5-5.1); Sodium 137 mmol/L (136-145); Thyroid Stimulating Hormone 1.96 uIU/mL (0.27-4.20); Total Bilirubin 0.3 mg/dL (0.15-1.2); Total Protein 5.9 g/dL (6.6-8.7); Triglycerides 187 mg/dL (0-150); Vitamin B12 553 pg/mL (232-1245)
== END 2024-03-13 10:47 | disposition home or self-care (01) ==
LOC: LAB 10:48
PROVIDERS: PCP Family Medicine; Visit Provider Family Medicine
DX: R73.09 Other abnormal glucose (principal); E75.6 Lipid storage disorder, unspecified; R94.6 Abnormal results of thyroid function studies; I10 Essential (primary) hypertension
CPT/HCPCS: 80053; 80061; 82607; 83036; 83735; 84443

== ENCOUNTER 2024-04-04 20:54 | Emergency (ER) | payer MEDICARE, SELFPAY ==
[2024-04-04 20:57] VITALS: BP 190/62; PULSE 64; RESP 18; TEMP 37.2; O2SAT 93; BMI 36.6
--- NOTE | 2024-04-04 21:03 | ED.C_ITS ---
Documented by User: NATHALIE Sharp 04/07/24 13:20 HPI - Psych 2 General: Chief Complaint: Altered Mental Status Stated Complaint: aggression towards staff Time Seen by Provider: 04/04/24 21:01 History of Present Illness: 64-year-old female comes in today for ag gression towards staff. 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 Patient answers some questions appropriately but then also seems to ramble and have a word salad when discussing what occurred at the [facility]. Patient reports that the staff was being rude to her and calling her stupid which frustrated her. Patient knows he resides at a [facility]. Patient knows that her primary care doctor is Dr. Brambila. Patient denies any pain. Patient wants to return to [place] because her stuff is there and she does not want anyone to get into it. retirement is wanting patient evaluated further by geriatric psych. Related Data Home Medications Medication Instructions Recorded Confirmed clopidogrel 75 mg tablet 75 mg PO DAILY 07/08/20 04/05/24 metoprolol tartrate 25 mg tablet 37.5 mg PO BID 07/08/20 04/05/24 acetaminophen 325 mg tablet 650 mg PO Q6H PRN PAIN OR ELEVATED 10/03/21 04/05/24 (Tylenol) TEMP atorvastatin 40 mg tablet 40 mg PO DAILY 10/03/21 04/05/24 calcium carbonate 500 mg PO Q8H PRN 10/03/21 04/05/24 gastro-esophageal reflux cetirizine 10 mg tablet 10 mg PO DAILY 10/03/21 04/05/24 insulin aspart U-100 100 unit/mL 15 unit SUBCUT TID 10/03/21 04/05/24 (3 mL) subcutaneous pen (Novolog FlexPen U-100 Insulin aspart) insulin glargine 100 unit/mL (3 33 unit SUBCUT BID 10/03/21 04/05/24 mL) subcutaneous pen (Lantus Solostar U-100 Insulin) magnesium hydroxide 400 mg/5 mL 30 ml PO DAILY PRN Constipation 10/03/21 04/05/24 oral suspension (Milk of Magnesia) omeprazole 20 mg capsule,delayed 20 mg PO DAILY 10/03/21 04/05/24 release ascorbic acid (vitamin C) 500 mg 500 mg PO DAILY 03/03/24 04/05/24 tablet (Vitamin C) diphenhydramine HCl 25 mg capsule 25 mg PO Q12H PRN Allergy Symptoms 03/03/24 04/05/24 (Banophen) duloxetine 60 mg capsule,delayed 60 mg PO DAILY MAJOR DEPRESSIVE 03/03/24 04/05/24 release DISORDER fluticasone propionate 50 1 spray intranasal Q12H PRN 03/03/24 04/05/24 mcg/actuation nasal ALLERGIES spray,suspension furosemide 40 mg tablet 40 mg PO QAM 03/03/24 04/05/24 lidocaine 5 % topical patch 1 patch topical Q12H PRN Pain 03/03/24 04/05/24 lisinopril 40 mg tablet 40 mg PO DAILY 03/03/24 04/05/24 olanzapine 2.5 mg tablet 2.5 mg PO BEDTIME 03/03/24 04/05/24 ondansetron HCl 4 mg tablet 4 mg PO Q6H PRN Nausea And Vomiting 03/03/24 04/05/24 Previous Rx's Medication Instructions Recorded allopurinol 300 mg tablet 300 mg PO DAILY #90 tabs 05/03/20 potassium chloride 10 mEq 10 meq PO DAILY #30 caps 09/12/22 capsule,extended release 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 meter,continuous #1 ea 03/12/23 (Dexcom G7 [employer]) 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 sensor (Dexcom G7 #1 ea 03/12/23 Sensor device) tramadol 50 mg tablet 50 mg PO Q6H PRN pain #120 tabs 11/18/23 Allergies Allergy/AdvReac Type Severity Reaction Status Date / Time clarithromycin [From Biaxin] Allergy nausea Verified 04/05/24 23:11 clindamycin Allergy shock Verified 04/05/24 23:11 diclofenac Allergy swelling Verified 04/05/24 23:11 enalapril Allergy unknown Verified 04/05/24 23:11 ketorolac [From Toradol] Allergy short of Verified 04/05/24 23:11 breath losartan [From Cozaar] Allergy shock Verified 04/05/24 23:11 nifedipine [From Procardia] Allergy hives Verified 04/05/24 23:11 pregabalin [From Lyrica] Allergy unknown Verified 04/05/24 23:11 Sulfa (Sulfonamide Allergy anaphylasix Verified 04/05/24 23:11 Antibiotics) Review of Systems 2 General: Reports: 10 or more systems reviewed and unremarkable except in HPI and below PFSH ED 2 PFSH: Medical History Paranoid Expressive aphasia Altered mental status Anxiety and depression Lives in assisted living facility Rotator cuff tear, right Diabetes mellitus insulin dependent Essential (primary) hypertension Depression due to cerebrovascular accident (CVA) Expressive aphasia Hypomagnesemia Bilateral pneumonia Hyponatremia Hyperkalemia DELORIS (acute kidney injury) Right humeral fracture Metabolic encephalopathy Resolved Acute delirium Resolved Pneumonia due to COVID-19 virus Resolved Poor social situation Multinodular thyroid Acute embolic stroke Recurrent falls Resolved History of CVA (cerebrovascular accident) Acute hypersomnolence disorder LEROY on CPAP Essential hypertension Wernicke dysphasia Diabetes mellitus with neuropathy Mixed hyperlipidemia Surgical History History of nasal sinusotomy History of cholecystectomy History of tonsillectomy History of repair of rotator cuff History of hysterectomy for indication other than malignancy History of bursectomy Hx of adenoidectomy Status post anal fissurectomy History of colonoscopy Family History Mother CAD (coronary artery disease) Other Asthma Cancer Diabetes Heart disease Hypertension Stroke Social History Smoking and tobacco/nicotine status: former use of tobacco/nicotine Alcohol intake: current Alcohol intake frequency: few times a month Substance/Drug Use: never Physical Exam 2 Const: COMMON NORMALS: alert GENERAL APPEARANCE: well kempt HENMT: COMMON NORMALS: normocephalic HEAD & SCALP: normocephalic Neck/C-Spine: COMMON NORMALS: full ROM Chest: COMMONS NORMALS: normal inspection of the chest Resp: COMMON NORMALS: normal respiratory effort and clear to auscultation bilaterally AUSCULTATION: clear to auscultation bilaterally Cardio: COMMON NORMALS: regular rate and regular rhythm RATE: regular rate RHYTHM: regular rhythm GI: COMMON NORMALS: Soft to palpation and non-tender PALPATION: Yes Soft to palpation : COMMON NORMALS: Yes no CVA tenderness BLADDER/KIDNEY EXAM: Yes no CVA tenderness Back/Pelvis: COMMON NORMALS: no CVA tenderness Extremity: COMMON NORMALS: full ROM Neuro: SENSORIUM/ORIENTATION: Yes alert Psych: COMMON NORMALS: cooperative APPEARANCE: Yes well kempt ATTITUDE: Yes engaged ACTIVITY/MOTOR BEHAVIOR: Yes appropriate eye contact SPEECH: Y es excessive MOOD & AFFECT: Yes Labile affect present THOUGHT PROCESS: C ircumstantial thought process present and Loose association thought process present THOUGHT CONTENT: Yes other (paranoia) INSIGHT: Limited insight present (Psych) JUDGEMENT: Limited judgement present (Psych) Skin: COMMON NORMALS: turgor normal GENERAL SKIN EXAM: turgor normal Face to Face: Restrn/Seclusion Events leading up to initiation: Verbalizing threat to self or others Evaluation of patient's immediate situation: Signs of psychological distress Patient reaction since intervention applied: De-escalation/no displays of violent/destructive behavior Recent labs reviewed: Yes Review of medications: Yes Patient's current medical/behavioral condition: No new concerns since last ROS Need for restraint or seclusion is: No longer present Attending notified: Attending completed assessment (Start 2324, end time 2342) Course 2 Vital Signs: Vital signs: Vital Signs Temperature 98.9 F 04/04/24 20:57 Pulse Rate 65 04/05/24 21:30 Respiratory Rate 16 04/05/24 14:17 Blood Pressure 185/86 04/05/24 14:17 Pulse Oximetry 100 04/05/24 21:30 Oxygen Delivery Me thod Nasal Cannula 04/05/24 20:30 Oxygen Flow Rate 2 04/05/24 20:30 MDM - Psych Medical Decision Making 64-year-old female comes in today for complaints of aggression towards staff. Patient states that she was upset with the staff because they treat her like she is stupid. Patient was arguing with the staff over how they put her pill onto some ground up food to give to her. Patient felt that she just needed some water to take her pill. Patient is circumstantial in her thought pattern. Patient also has some aphasia which makes it difficult for her to express her thoughts. Differential diagnosis includes but not limited to urinary tract infection, pneumonia, CVA, ACS, aggressive behavior, anxiety, schizoaffective disorder. 2314, reviewed with patient that the [facility] felt patient needed to be screened further by geriatric psych for further evaluation. Patient did become upset and started talking about people taking her things and she needed to return so they would not get it, patient then also started talking further about how this doctors have messed up her shoulder. Patient tangential thoughts associations, we will finish her physical exam with labs and plan for transport to geriatric psych. 2324, patient became more aggressive towards staff and more paranoid and could not be reoriented. Patient had to be given IM 500 mg ketamine along with 1 mg of Ativan and 5 mg of Haldol. Patient will continue to monitor for cardiac and oxygen protocol. I was present with patient until 2342. She will be continued monitored. Lab Data 04/04/24 21:59 04/04/24 21:59 Radiology Impressions Chest X-Ray 04/04/24 21:05 IMPRESSION: 1. No acute cardiopulmonary abnormality. Head CT 04/04/24 21:05 IMPRESSION: 1. No acute intracranial abnormality. Laboratory Results WBC 10.46 10^3/uL (3.29-11.43) 04/04/24 21:59 RBC 4.30 10^6/uL (3.85-5.65) 04/04/24 21:59 Hgb 11.00 g/dL (11.27-16.99) L 04/04/24 21:59 Hct 36.4 % (36-47) 04/04/24 21:59 MCV 84.7 fl (85-98) L 04/04/24 21:59 MCH 25.6 pg (27-33) L 04/04/24 21:59 MCHC 30.2 g/dL (30-55) 04/04/24 21:59 RDW 17.0 % (12.1-15.1) H 04/04/24 21:59 Plt Count 298 10^3/cmm (157-399) 04/04/24 21:59 MPV 9.8 fL (7.4-10.4) 04/04/24 21:59 Neut % (Auto) 76.6 % 04/04/24 21:59 Lymph % (Auto) 10.3 % 04/04/24 21:59 [place] % (Auto) 6.4 % 04/04/24 21:59 Eos % (Auto) 5.3 % 04/04/24 21:59 Baso % (Auto) 0.8 % 04/04/24 21:59 Neut # (Auto) 8.02 10^3/uL (1.8-7.7) H 04/04/24 21:59 Lymph # (Auto) 1.1 10^3/uL (0.8-4.8) 04/04/24 21:59 [place] # (Auto) 0.7 10^3/uL (0.2-0.9) 04/04/24 21:59 Eos # (Auto) 0.6 10^3/uL (0.0-0.8) 04/04/24 21:59 Baso # (Auto) 0.1 10^3/uL (0.0-0.1) 04/04/24 21:59 Nucleated RBC % (auto) 0 % 04/04/24 21:59 Nucleated RBCs # 0.0 /100WBC 04/04/24 21:59 PT 13.00 SECONDS (12.1-14.9) 04/04/24 21:59 INR 0.96 (0.8-1.2) 04/04/24 21:59 Sodium 146 mmol/L (136-145) H 04/04/24 21:59 Potassium 4.5 mmol/L (3.5-5.1) 04/04/24 21:59 Chloride 112 mmol/L (98-107) H 04/04/24 21:59 Carbon Dioxide 24 mmol/L (22-29) 04/04/24 21:59 Anion Gap 14.5 (5-19) 04/04/24 21:59 BUN 47 mg/dL (8-23) H 04/04/24 21:59 Creatinine 1.8 mg/dL (0.5-0.9) H 04/04/24 21:59 GFR Calculation 28.3 mL/min (90-130) L 04/04/24 21:59 Glucose 159 mg/dL (65-115) H 04/04/24 21:59 POC Glucose 158 mg/dL (70-110) H 04/04/24 22:14 Calculated Osmolality 318 mOsm/kg (285-295) H 04/04/24 21:59 Calcium 8.6 mg/dL (8.5-10.5) 04/04/24 21:59 Total Bilirubin 0.2 mg/dL (0.15-1.2) 04/04/24 21:59 AST 16 U/L (0-32) 04/04/24 21:59 ALT 18 U/L (0-33) 04/04/24 21:59 Alkaline Phosphatase 128 U/L (35-105) H 04/04/24 21:59 Troponin T Baseline 63 ng/L (0-10) H 04/04/24 21:59 Troponin T 120 Minute 63.72 ng/L (0-10) H 04/04/24 23:18 Delta Troponin T 0.72 ABS# (0-10) 04/04/24 23:18 Troponin T Hi Sens 6Hr 63.13 ng/L (0-10) H 04/05/24 04:27 Troponin T Hi Sens 6Hr Delta 0.13 ng/L (0-12) 04/05/24 04:27 NT-Pro-B Natriuret Pep 1730 pg/mL (0-125) H 04/05/24 10:41 Total Protein 5.2 g/dL (6.6-8.7) L 04/04/24 21:59 Albumin 3.3 g/dL (3.5-5.2) L 04/04/24 21:59 Globulin 1.9 g/dL (1.3-4.6) 04/04/24 21:59 TSH 2.09 uIU/mL (0.27-4.20) 04/04/24 21:59 Free T4 0.97 ng/dL (0.82-1.77) 04/05/24 04:27 Urine Color Yellow (Yellow) 04/04/24 23:00 Urine Appearance Turbid (CLEAR) A 04/04/24 23:00 Urine pH 5.5 (5-7) 04/04/24 23:00 Ur Specific [place] 1.022 (1.005-1.030) 04/04/24 23:00 Urine Protein 3+ (Negative) A 04/04/24 23:00 Urine Glucose (UA) Negative (Normal) 04/04/24 23:00 Urine Ketones Negative (Negative) 04/04/24 23:00 Urine Blood 1+ (Negative) A 04/04/24 23:00 Urine Nitrate Negative (Negative) 04/04/24 23:00 Urine Bilirubin Negative (Negative) 04/04/24 23:00 Urine Urobilinogen 1.0 mg/dL (Negative) 04/04/24 23:00 Ur Leukocyte Esterase Negative (Negative) 04/04/24 23:00 Urine RBC 0-4 /hpf (0-2) H 04/04/24 23:00 Urine WBC 5-10 /hpf (0-5) H 04/04/24 23:00 Ur Squamous Epith Cells 15-25 /hpf (0-5) H 04/04/24 23:00 Amorphous Sediment Not Reportable 04/04/24 23:00 Urine Bacteria 1+ /hpf (NONE) H 04/04/24 23:00 Hyaline Casts 15-25 /lpf H 04/04/24 23:00 Fine Granular Casts 0-4 /lpf H 04/04/24 23:00 Urine Mucus Trace /hpf 04/04/24 23:00 Salicylates < 0.3 mg/dL (3-10) L 04/04/24 21:59 Urine Opiates Screen Negative ng/mL (Negative) 04/04/24 23:00 Acetaminophen < 5.0 ug/mL (10-30) L 04/04/24 21:59 Ur Barbiturates Screen Negative ng/mL (Negative) 04/04/24 23:00 Ur Phencyclidine Scrn Negative ng/mL (Negative) 04/04/24 23:00 Ur Amphetamines Screen Negative ng/mL (Negative) 04/04/24 23:00 U Benzodiazepines Scrn Negative ng/mL (Negative) 04/04/24 23:00 Urine Cocaine Screen Negative ng/mL (Negative) 04/04/24 23:00 U Marijuana (THC) Screen Negative ng/mL (Negative) 04/04/24 23:00 Ethyl Alcohol < 10 mg/dL (0-10) 04/04/24 21:59 Adenovirus (PCR) Not detected (NOT DETECT) 04/04/24 01:09 C. pneumoniae DNA (PCR) Not detected (NOT DETECT) 04/04/24 01:09 Coronavirus 229E (PCR) Not detected (NOT DETECT) 04/04/24 01:09 Human Metapneumovir PCR Not detected (NOT DETECT) 04/04/24 01:09 Influenza A (H1) PCR Not detected (NOT DETECT) 04/04/24 01:09 Influ A (H1/09) PCR Not detected (NOT DETECT) 04/04/24 01:09 Influenza A (H3) PCR Not detected (NOT DETECT) 04/04/24 01:09 Influenza Type A (PCR) Not detected (NOT DETECT) 04/04/24 01:09 Influenza Type B (PCR) Not detected (NOT DETECT) 04/04/24 01:09 M. pneumoniae (PCR) Not detected (NOT DETECT) 04/04/24 01:09 Parainfluenza 1 (PCR) Not detected (NOT DETECT) 04/04/24 01:09 Parainfluenza 2 (PCR) Not detected (NOT DETECT) 04/04/24 01:09 Parainfluenza 3 (PCR) Not detected (NOT DETECT) 04/04/24 01:09 Parainfluenza 4 (PCR) Not detected (NOT DETECT) 04/04/24 01:09 RSV Type A (PCR) Not detected (NOT DETECT) 04/04/24 01:09 RSV Type B (PCR) Not detected (NOT DETECT) 04/04/24 01:09 Entero/Rhino (PCR) Not detected (NOT DETECT) 04/04/24 01:09 SARS-CoV-2 (PCR) Not detected (NOT DETECT) 04/04/24 01:09 Discharge Plan Discharge Patient Disposition: Home Clinical Impression: Paranoid behavior, Agitation Condition: Stable Prescriptions: No Action (DME) Dexcom G7 Sensor Device See Rx Instructions .Route Qty: 1 0RF Rx Instructions: As directed (DME) Dexcom G7 [employer] Misc See Rx Instructions .Route Qty: 1 6RF Rx Instructions: As directed allopurinol 300 mg tablet 300 mg PO DAILY Qty: 90 0RF potassium chloride 10 mEq capsule, extended release 10 meq PO DAILY Qty: 30 11RF tramadol 50 mg tablet 50 mg PO Q6H PRN (Reason: pain) Qty: 120 5RF atorvastatin 40 mg tablet 40 mg PO DAILY cetirizine 10 mg Tablet 10 mg PO DAILY magnesium hydroxide [Milk of Magnesia] 400 mg/5 mL Suspension 30 ml PO DAILY PRN (Reason: Constipation) calcium carbonate 500 mg calcium (1,250 mg) Tablet,Chewable 500 mg PO Q8H PRN (Reason: gastro-esophageal reflux) insulin glargine [Lantus Solostar U-100 Insulin] 100 unit/mL (3 mL) insulin pen 33 unit SUBCUT BID acetaminophen [Tylenol] 325 mg Tablet 650 mg PO Q6H PRN (Reason: PAIN OR ELEVATED TEMP) omeprazole 20 mg Capsule,Delayed Release(Dr/Ec) 20 mg PO DAILY insulin aspart U-100 [Novolog FlexPen U-100 Insulin] 100 unit/mL (3 mL) insulin pen 15 unit SUBCUT TID Rx Instructions: sliding scale before meals tid 150-200=4 units 201-250=6 units 251-300=10 units 301-400=15 units clopidogrel 75 mg tablet 75 mg PO DAILY metoprolol tartrate 25 mg tablet 37.5 mg PO BID furosemide 40 mg tablet 40 mg PO QAM ondansetron HCl 4 mg tablet 4 mg PO Q6H PRN (Reason: Nausea And Vomiting) olanzapine 2.5 mg tablet 2.5 mg PO BEDTIME ascorbic acid (vitamin C) [Vitamin C] 500 mg tablet 500 mg PO DAILY diphenhydramine HCl [Banophen] 25 mg Capsule 25 mg PO Q12H PRN (Reason: Allergy Symptoms) lidocaine 5 % Adhesive Patch,Medicated 1 patch TOPICAL Q12H PRN (Reason: Pain) Rx Instructions: leave on most painful area for up to 12 hrs lisinopril 40 mg tablet 40 mg PO DAILY fluticasone propionate 50 mcg/actuation spray,suspension 1 spray INTRANASAL Q12H PRN (Reason: ALLERGIES) duloxetine 60 mg capsule,delayed release(DR/EC) 60 mg PO DAILY Discharge Orders: Discharge ED (Routine); Ordered 04/05/24 Ordered By: Laure Atkinson Referrals: Benigno Jennings DO [Primary Care Provider] - 4-7 days Discharge Diet: Advance as tolerated Discharge Activity: Resume usual activity Patient Instructions: Confusion Coding Level of Care Code ED [employer] Service Specialist for [employer]g Fwd Documented by User: Cheng Brown DO 04/05/24 05:55 HPI - Psych 2 General: Chief Complaint: Altered Mental Status Stated Complaint: aggression towards staff Time Seen by Provider: 04/04/24 21:01 Related Data Home Medications Medication Instructions Recorded Confirmed clopidogrel 75 mg tablet 75 mg PO DAILY 07/08/20 04/05/24 metoprolol tartrate 25 mg tablet 37.5 mg PO BID 07/08/20 04/05/24 acetaminophen 325 mg tablet 650 mg PO Q6H PRN PAIN OR ELEVATED 10/03/21 04/05/24 (Tylenol) TEMP atorvastatin 40 mg tablet 40 mg PO DAILY 10/03/21 04/05/24 calcium carbonate 500 mg PO Q8H PRN 10/03/21 04/05/24 gastro-esophageal reflux cetirizine 10 mg tablet 10 mg PO DAILY 10/03/21 04/05/24 insulin aspart U-100 100 unit/mL 15 unit SUBCUT TID 10/03/21 04/05/24 (3 mL) subcutaneous pen (Novolog FlexPen U-100 Insulin aspart) insulin glargine 100 unit/mL (3 33 unit SUBCUT BID 10/03/21 04/05/24 mL) subcutaneous pen (Lantus Solostar U-100 Insulin) magnesium hydroxide 400 mg/5 mL 30 ml PO DAILY PRN Constipation 10/03/21 04/05/24 oral suspension (Milk of Magnesia) omeprazole 20 mg capsule,delayed 20 mg PO DAILY 10/03/21 04/05/24 release ascorbic acid (vitamin C) 500 mg 500 mg PO DAILY 03/03/24 04/05/24 tablet (Vitamin C) diphenhydramine HCl 25 mg capsule 25 mg PO Q12H PRN Allergy Symptoms 03/03/24 04/05/24 (Banophen) duloxetine 60 mg capsule,delayed 60 mg PO DAILY MAJOR DEPRESSIVE 03/03/24 04/05/24 release DISORDER fluticasone propionate 50 1 spray intranasal Q12H PRN 03/03/24 04/05/24 mcg/actuation nasal ALLERGIES spray,suspension furosemide 40 mg tablet 40 mg PO QAM 03/03/24 04/05/24 lidocaine 5 % topical patch 1 patch topical Q12H PRN Pain 03/03/24 04/05/24 lisinopril 40 mg tablet 40 mg PO DAILY 03/03/24 04/05/24 olanzapine 2.5 mg tablet 2.5 mg PO BEDTIME 03/03/24 04/05/24 ondansetron HCl 4 mg tablet 4 mg PO Q6H PRN Nausea And Vomiting 03/03/24 04/05/24 Previous Rx's Medication Instructions Recorded allopurinol 300 mg tablet 300 mg PO DAILY #90 tabs 05/03/20 potassium chloride 10 mEq 10 meq PO DAILY #30 caps 09/12/22 capsule,extended release 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 meter,continuous #1 ea 03/12/23 (Dexcom G7 [employer]) 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 sensor (Dexcom G7 #1 ea 03/12/23 Sensor device) tramadol 50 mg tablet 50 mg PO Q6H PRN pain #120 tabs 11/18/23 Allergies Allergy/AdvReac Type Severity Reaction Status Date / Time clarithromycin [From Biaxin] Allergy nausea Verified 04/05/24 23:11 clindamycin Allergy shock Verified 04/05/24 23:11 diclofenac Allergy swelling Verified 04/05/24 23:11 enalapril Allergy unknown Verified 04/05/24 23:11 ketorolac [From Toradol] Allergy short of Verified 04/05/24 23:11 breath losartan [From Cozaar] Allergy shock Verified 04/05/24 23:11 nifedipine [From Procardia] Allergy hives Verified 04/05/24 23:11 pregabalin [From Lyrica] Allergy unknown Verified 04/05/24 23:11 Sulfa (Sulfonamide Allergy anaphylasix Verified 04/05/24 23:11 Antibiotics) [facility] ED 2 PFSH: Medical History Paranoid Expressive aphasia Altered mental status Anxiety and depression Lives in assisted living facility Rotator cuff tear, right Diabetes mellitus insulin dependent Essential (primary) hypertension Depression due to cerebrovascular accident (CVA) Expressive aphasia Hypomagnesemia Bilateral pneumonia Hyponatremia Hyperkalemia DELORIS (acute kidney injury) Right humeral fracture Metabolic encephalopathy Resolved Acute delirium Resolved Pneumonia due to COVID-19 virus Resolved Poor social situation Multinodular thyroid Acute embolic stroke Recurrent falls Resolved History of CVA (cerebrovascular accident) Acute hypersomnolence disorder LEROY on CPAP Essential hypertension Wernicke dysphasia Diabetes mellitus with neuropathy Mixed hyperlipidemia Surgical History History of nasal sinusotomy History of cholecystectomy History of tonsillectomy History of repair of rotator cuff History of hysterectomy for indication other than malignancy History of bursectomy Hx of adenoidectomy Status post anal fissurectomy History of colonoscopy Family History Mother CAD (coronary artery disease) Other Asthma Cancer Diabetes Heart disease Hypertension Stroke Social History Smoking and tobacco/nicotine status: former use of tobacco/nicotine Alcohol intake: current Alcohol intake frequency: few times a month Substance/Drug Use: never Course 2 Vital Signs: Vital signs: Vital Signs Temperature 98.9 F 04/04/24 20:57 Pulse Rate 65 04/05/24 21:30 Respiratory Rate 16 04/05/24 14:17 Blood Pressure 185/86 04/05/24 14:17 Pulse Oximetry 100 04/05/24 21:30 Oxygen Delivery Me thod Nasal Cannula 04/05/24 20:30 Oxygen Flow Rate 2 04/05/24 20:30 MDM - Psych Medical Decision Making 64-year-old female comes in today for complaints of aggression towards staff. Patient states that she was upset with the staff because they treat her like she is stupid. Patient was arguing with the staff over how they put her pill onto some ground up food to give to her. Patient felt that she just needed some water to take her pill. Patient is circumstantial in her thought pattern. Patient also has some aphasia which makes it difficult for her to express her thoughts. Differential diagnosis includes but not limited to urinary tract infection, pneumonia, CVA, ACS, aggressive behavior, anxiety, schizoaffective disorder. 2314, reviewed with patient that the [facility] felt patient needed to be screened further by geriatric psych for further evaluation. Patient did become upset and started talking about people taking her things and she needed to return so they would not get it, patient then also started talking further about how this doctors have messed up her shoulder. Patient tangential thoughts associations, we will finish her physical exam with labs and plan for transport to geriatric psych. 2325, patient became more aggressive towards staff and more paranoid and could not be reoriented. Patient had to be given IM 200 mg ketamine along with 1 mg of Ativan and 5 mg of Haldol. Patient will continue to monitor for cardiac and oxygen protocol. I was present with patient until 2342. She will be continued monitored. This patient was originally seen by Mr. Wolfe, [employer].? I agree with his history, evaluation, and treatment. I have seen the patient as well. She remained stable on the monitor. Current vital signs blood pressure 150/55, saturations 93% on room air, heart rate 63, respirations 22. Time 01: 02. 05:55 patient remains groggy, but very arousable. Vitals are stable. She remains medically stable. Continuing to search for a geriatric psychiatry facility. Lab Data 04/04/24 21:59 04/04/24 21:59 Radiology Impressions Chest X-Ray 04/04/24 21:05 IMPRESSION: 1. No acute cardiopulmonary abnormality. Head CT 04/04/24 21:05 IMPRESSION: 1. No acute intracranial abnormality. Laboratory Results WBC 10.46 10^3/uL (3.29-11.43) 04/04/24 21:59 RBC 4.30 10^6/uL (3.85-5.65) 04/04/24 21:59 Hgb 11.00 g/dL (11.27-16.99) L 04/04/24 21:59 Hct 36.4 % (36-47) 04/04/24 21:59 MCV 84.7 fl (85-98) L 04/04/24 21:59 MCH 25.6 pg (27-33) L 04/04/24 21:59 MCHC 30.2 g/dL (30-55) 04/04/24 21:59 RDW 17.0 % (12.1-15.1) H 04/04/24 21:59 Plt Count 298 10^3/cmm (157-399) 04/04/24 21:59 MPV 9.8 fL (7.4-10.4) 04/04/24 21:59 Neut % (Auto) 76.6 % 04/04/24 21:59 Lymph % (Auto) 10.3 % 04/04/24 21:59 [place] % (Auto) 6.4 % 04/04/24 21:59 Eos % (Auto) 5.3 % 04/04/24 21:59 Baso % (Auto) 0.8 % 04/04/24 21:59 Neut # (Auto) 8.02 10^3/uL (1.8-7.7) H 04/04/24 21:59 Lymph # (Auto) 1.1 10^3/uL (0.8-4.8) 04/04/24 21:59 [place] # (Auto) 0.7 10^3/uL (0.2-0.9) 04/04/24 21:59 Eos # (Auto) 0.6 10^3/uL (0.0-0.8) 04/04/24 21:59 Baso # (Auto) 0.1 10^3/uL (0.0-0.1) 04/04/24 21:59 Nucleated RBC % (auto) 0 % 04/04/24 21:59 Nucleated RBCs # 0.0 /100WBC 04/04/24 21:59 PT 13.00 SECONDS (12.1-14.9) 04/04/24 21:59 INR 0.96 (0.8-1.2) 04/04/24 21:59 Sodium 146 mmol/L (136-145) H 04/04/24 21:59 Potassium 4.5 mmol/L (3.5-5.1) 04/04/24 21:59 Chloride 112 mmol/L (98-107) H 04/04/24 21:59 Carbon Dioxide 24 mmol/L (22-29) 04/04/24 21:59 Anion Gap 14.5 (5-19) 04/04/24 21:59 BUN 47 mg/dL (8-23) H 04/04/24 21:59 Creatinine 1.8 mg/dL (0.5-0.9) H 04/04/24 21:59 GFR Calculation 28.3 mL/min (90-130) L 04/04/24 21:59 Glucose 159 mg/dL (65-115) H 04/04/24 21:59 POC Glucose 158 mg/dL (70-110) H 04/04/24 22:14 Calculated Osmolality 318 mOsm/kg (285-295) H 04/04/24 21:59 Calcium 8.6 mg/dL (8.5-10.5) 04/04/24 21:59 Total Bilirubin 0.2 mg/dL (0.15-1.2) 04/04/24 21:59 AST 16 U/L (0-32) 04/04/24 21:59 ALT 18 U/L (0-33) 08/18/24 21:59 Alkaline Phosphatase 128 U/L (35-105) H 04/04/24 21:59 Troponin T Baseline 63 ng/L (0-10) H 04/04/24 21:59 Troponin T 120 Minute 63.72 ng/L (0-10) H 04/04/24 23:18 Delta Troponin T 0.72 ABS# (0-10) 04/04/24 23:18 Troponin T Hi Sens 6Hr 63.13 ng/L (0-10) H 04/05/24 04:27 Troponin T Hi Sens 6Hr Delta 0.13 ng/L (0-12) 04/05/24 04:27 NT-Pro-B Natriuret Pep 1730 pg/mL (0-125) H 04/05/24 10:41 Total Protein 5.2 g/dL (6.6-8.7) L 04/04/24 21:59 Albumin 3.3 g/dL (3.5-5.2) L 04/04/24 21:59 Globulin 1.9 g/dL (1.3-4.6) 04/04/24 21:59 TSH 2.09 uIU/mL (0.27-4.20) 04/04/24 21:59 Free T4 0.97 ng/dL (0.82-1.77) 04/05/24 04:27 Urine Color Yellow (Yellow) 04/04/24 23:00 Urine Appearance Turbid (CLEAR) A 04/04/24 23:00 Urine pH 5.5 (5-7) 04/04/24 23:00 Ur Specific Hallam 1.022 (1.005-1.030) 04/04/24 23:00 Urine Protein 3+ (Negative) A 04/04/24 23:00 Urine Glucose (UA) Negative (Normal) 04/04/24 23:00 Urine Ketones Negative (Negative) 04/04/24 23:00 Urine Blood 1+ (Negative) A 04/04/24 23:00 Urine Nitrate Negative (Negative) 04/04/24 23:00 Urine Bilirubin Negative (Negative) 04/04/24 23:00 Urine Urobilinogen 1.0 mg/dL (Negative) 04/04/24 23:00 Ur Leukocyte Esterase Negative (Negative) 04/04/24 23:00 Urine RBC 0-4 /hpf (0-2) H 04/04/24 23:00 Urine WBC 5-10 /hpf (0-5) H 04/04/24 23:00 Ur Squamous Epith Cells 15-25 /hpf (0-5) H 04/04/24 23:00 Amorphous Sediment Not Reportable 04/04/24 23:00 Urine Bacteria 1+ /hpf (NONE) H 04/04/24 23:00 Hyaline Casts 15-25 /lpf H 04/04/24 23:00 Fine Granular Casts 0-4 /lpf H 04/04/24 23:00 Urine Mucus Trace /hpf 04/04/24 23:00 Salicylates < 0.3 mg/dL (3-10) L 04/04/24 21:59 Urine Opiates Screen Negative ng/mL (Negative) 04/04/24 23:00 Acetaminophen < 5.0 ug/mL (10-30) L 04/04/24 21:59 Ur Barbiturates Screen Negative ng/mL (Negative) 04/04/24 23:00 Ur Phencyclidine Scrn Negative ng/mL (Negative) 04/04/24 23:00 Ur Amphetamines Screen Negative ng/mL (Negative) 04/04/24 23:00 U Benzodiazepines Scrn Negative ng/mL (Negative) 04/04/24 23:00 Urine Cocaine Screen Negative ng/mL (Negative) 04/04/24 23:00 U Marijuana (THC) Screen Negative ng/mL (Negative) 04/04/24 23:00 Ethyl Alcohol < 10 mg/dL (0-10) 04/04/24 21:59 Adenovirus (PCR) Not detected (NOT DETECT) 04/04/24 01:09 C. pneumoniae DNA (PCR) Not detected (NOT DETECT) 04/04/24 01:09 Coronavirus 229E (PCR) Not detected (NOT DETECT) 04/04/24 01:09 Human Metapneumovir PCR Not detected (NOT DETECT) 04/04/24 01:09 Influenza A (H1) PCR Not detected (NOT DETECT) 04/04/24 01:09 Influ A (H1/09) PCR Not detected (NOT DETECT) 04/04/24 01:09 Influenza A (H3) PCR Not detected (NOT DETECT) 04/04/24 01:09 Influenza Type A (PCR) Not detected (NOT DETECT) 04/04/24 01:09 Influenza Type B (PCR) Not detected (NOT DETECT) 04/04/24 01:09 M. pneumoniae (PCR) Not detected (NOT DETECT) 04/04/24 01:09 Parainfluenza 1 (PCR) Not detected (NOT DETECT) 04/04/24 01:09 Parainfluenza 2 (PCR) Not detected (NOT DETECT) 04/04/24 01:09 Parainfluenza 3 (PCR) Not detected (NOT DETECT) 04/04/24 01:09 Parainfluenza 4 (PCR) Not detected (NOT DETECT) 04/04/24 01:09 RSV Type A (PCR) Not detected (NOT DETECT) 04/04/24 01:09 RSV Type B (PCR) Not detected (NOT DETECT) 04/04/24 01:09 Entero/Rhino (PCR) Not detected (NOT DETECT) 04/04/24 01:09 SARS-CoV-2 (PCR) Not detected (NOT DETECT) 04/04/24 01:09 Discharge Plan Discharge Patient Disposition: Home Clinical Impression: Paranoid behavior, Agitation Condition: Stable Prescriptions: No Action (DME) Dexcom G7 Sensor Device See Rx Instructions .Route Qty: 1 0RF Rx Instructions: As directed (DME) Dexcom G7 Supervisor [employer] Misc See Rx Instructions .Route Qty: 1 6RF Rx Instructions: As directed allopurinol 300 mg tablet 300 mg PO DAILY Qty: 90 0RF potassium chloride 10 mEq capsule, extended release 10 meq PO DAILY Qty: 30 11RF tramadol 50 mg tablet 50 mg PO Q6H PRN (Reason: pain) Qty: 120 5RF atorvastatin 40 mg tablet 40 mg PO DAILY cetirizine 10 mg Tablet 10 mg PO DAILY magnesium hydroxide [Milk of Magnesia] 400 mg/5 mL Suspension 30 ml PO DAILY PRN (Reason: Constipation) calcium carbonate 500 mg calcium (1,250 mg) Tablet,Chewable 500 mg PO Q8H PRN (Reason: gastro-esophageal reflux) insulin glargine [Lantus Solostar U-100 Insulin] 100 unit/mL (3 mL) insulin pen 33 unit SUBCUT BID acetaminophen [Tylenol] 325 mg Tablet 650 mg PO Q6H PRN (Reason: PAIN OR ELEVATED TEMP) omeprazole 20 mg Capsule,Delayed Release(Dr/Ec) 20 mg PO DAILY insulin aspart U-100 [Novolog FlexPen U-100 Insulin] 100 unit/mL (3 mL) insulin pen 15 unit SUBCUT TID Rx Instructions: sliding scale before meals tid 150-200=4 units 201-250=6 units 251-300=10 units 301-400=15 units clopidogrel 75 mg tablet 75 mg PO DAILY metoprolol tartrate 25 mg tablet 37.5 mg PO BID furosemide 40 mg tablet 40 mg PO QAM ondansetron HCl 4 mg tablet 4 mg PO Q6H PRN (Reason: Nausea And Vomiting) olanzapine 2.5 mg tablet 2.5 mg PO BEDTIME ascorbic acid (vitamin C) [Vitamin C] 500 mg tablet 500 mg PO DAILY diphenhydramine HCl [Banophen] 25 mg Capsule 25 mg PO Q12H PRN (Reason: Allergy Symptoms) lidocaine 5 % Adhesive Patch,Medicated 1 patch TOPICAL Q12H PRN (Reason: Pain) Rx Instructions: leave on most painful area for up to 12 hrs lisinopril 40 mg tablet 40 mg PO DAILY fluticasone propionate 50 mcg/actuation spray,suspension 1 spray INTRANASAL Q12H PRN (Reason: ALLERGIES) duloxetine 60 mg capsule,delayed release(DR/EC) 60 mg PO DAILY Discharge Orders: Discharge ED (Routine); Ordered 04/05/24 Ordered By: Laure Atkinson Referrals: Benigno Jennings DO [Primary Care Provider] - 4-7 days Discharge Diet: Advance as tolerated Discharge Activity: Resume usual activity Patient Instructions: Confusion Coding Level of Care Code ED Food Service Specialist for Chg Fwd Documented by User: Laure Atkinson MD 04/06/24 12:04 HPI - Psych 2 General: Chief Complaint: Altered Mental Status Stated Complaint: aggression towards staff Time Seen by Provider: 04/04/24 21:01 Related Data Home Medications Medication Instructions Recorded Confirmed clopidogrel 75 mg tablet 75 mg PO DAILY 07/08/20 04/05/24 metoprolol tartrate 25 mg tablet 37.5 mg PO BID 07/08/20 04/05/24 acetaminophen 325 mg tablet 650 mg PO Q6H PRN PAIN OR ELEVATED 10/03/21 04/05/24 (Tylenol) TEMP atorvastatin 40 mg tablet 40 mg PO DAILY 10/03/21 04/05/24 calcium carbonate 500 mg PO Q8H PRN 10/03/21 04/05/24 gastro-esophageal reflux cetirizine 10 mg tablet 10 mg PO DAILY 10/03/21 04/05/24 insulin aspart U-100 100 unit/mL 15 unit SUBCUT TID 10/03/21 04/05/24 (3 mL) subcutaneous pen (Novolog FlexPen U-100 Insulin aspart) insulin glargine 100 unit/mL (3 33 unit SUBCUT BID 10/03/21 04/05/24 mL) subcutaneous pen (Lantus Solostar U-100 Insulin) magnesium hydroxide 400 mg/5 mL 30 ml PO DAILY PRN Constipation 10/03/21 04/05/24 oral suspension (Milk of Magnesia) omeprazole 20 mg capsule,delayed 20 mg PO DAILY 10/03/21 04/05/24 release ascorbic acid (vitamin C) 500 mg 500 mg PO DAILY 03/03/24 04/05/24 tablet (Vitamin C) diphenhydramine HCl 25 mg capsule 25 mg PO Q12H PRN Allergy Symptoms 03/03/24 04/05/24 (Banophen) duloxetine 60 mg capsule,delayed 60 mg PO DAILY MAJOR DEPRESSIVE 03/03/24 04/05/24 release DISORDER fluticasone propionate 50 1 spray intranasal Q12H PRN 03/03/24 04/05/24 mcg/actuation nasal ALLERGIES spray,suspension furosemide 40 mg tablet 40 mg PO QAM 03/03/24 04/05/24 lidocaine 5 % topical patch 1 patch topical Q12H PRN Pain 03/03/24 04/05/24 lisinopril 40 mg tablet 40 mg PO DAILY 03/03/24 04/05/24 olanzapine 2.5 mg tablet 2.5 mg PO BEDTIME 03/03/24 04/05/24 ondansetron HCl 4 mg tablet 4 mg PO Q6H PRN Nausea And Vomiting 03/03/24 04/05/24 Previous Rx's Medication Instructions Recorded allopurinol 300 mg tablet 300 mg PO DAILY #90 tabs 05/03/20 potassium chloride 10 mEq 10 meq PO DAILY #30 caps 09/12/22 capsule,extended release 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 meter,continuous #1 ea 03/12/23 (Dexcom G7 Supervisor [employer] Records [employer]) 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 sensor (Dexcom G7 #1 ea 03/12/23 Sensor device) tramadol 50 mg tablet 50 mg PO Q6H PRN pain #120 tabs 11/18/23 Allergies Allergy/AdvReac Type Severity Reaction Status Date / Time clarithromycin [From Biaxin] Allergy nausea Verified 04/05/24 23:11 clindamycin Allergy shock Verified 04/05/24 23:11 diclofenac Allergy swelling Verified 04/05/24 23:11 enalapril Allergy unknown Verified 04/05/24 23:11 ketorolac [From Toradol] Allergy short of Verified 04/05/24 23:11 breath losartan [From Cozaar] Allergy shock Verified 04/05/24 23:11 nifedipine [From Procardia] Allergy hives Verified 04/05/24 23:11 pregabalin [From Lyrica] Allergy unknown Verified 04/05/24 23:11 Sulfa (Sulfonamide Allergy anaphylasix Verified 04/05/24 23:11 Antibiotics) PFSH ED 2 PFSH: Medical History Paranoid Expressive aphasia Altered mental status Anxiety and depression Lives in assisted living facility Rotator cuff tear, right Diabetes mellitus insulin dependent Essential (primary) hypertension Depression due to cerebrovascular accident (CVA) Expressive aphasia Hypomagnesemia Bilateral pneumonia Hyponatremia Hyperkalemia DELORIS (acute kidney injury) Right humeral fracture Metabolic encephalopathy Resolved Acute delirium Resolved Pneumonia due to COVID-19 virus Resolved Poor social situation Multinodular thyroid Acute embolic stroke Recurrent falls Resolved History of CVA (cerebrovascular accident) Acute hypersomnolence disorder LEROY on CPAP Essential hypertension Wernicke dysphasia Diabetes mellitus with neuropathy Mixed hyperlipidemia Surgical History History of nasal sinusotomy History of cholecystectomy History of tonsillectomy History of repair of rotator cuff History of hysterectomy for indication other than malignancy History of bursectomy Hx of adenoidectomy Status post anal fissurectomy History of colonoscopy Family History Mother CAD (coronary artery disease) Other Asthma Cancer Diabetes Heart disease Hypertension Stroke Social History Smoking and tobacco/nicotine status: former use of tobacco/nicotine Alcohol intake: current Alcohol intake frequency: few times a month Substance/Drug Use: never Course 2 Vital Signs: Vital signs: Vital Signs Temperature 98.9 F 04/04/24 20:57 Pulse Rate 65 04/05/24 21:30 Respiratory Rate 16 04/05/24 14:17 Blood Pressure 185/86 04/05/24 14:17 Pulse Oximetry 100 04/05/24 21:30 Oxygen Delivery Me thod Nasal Cannula 04/05/24 20:30 Oxygen Flow Rate 2 04/05/24 20:30 MDM - Psych Medical Decision Making 64-year-old female comes in today for complaints of aggression towards staff. Patient states that she was upset with the staff because they treat her like she is stupid. Patient was arguing with the staff over how they put her pill onto some ground up food to give to her. Patient felt that she just needed some water to take her pill. Patient is circumstantial in her thought pattern. Patient also has some aphasia which makes it difficult for her to express her thoughts. Differential diagnosis includes but not limited to urinary tract infection, pneumonia, CVA, ACS, aggressive behavior, anxiety, schizoaffective disorder. 2314, reviewed with patient that the [facility] felt patient needed to be screened further by geriatric psych for further evaluation. Patient did become upset and started talking about people taking her things and she needed to return so they would not get it, patient then also started talking further about how this doctors have messed up her shoulder. Patient tangential thoughts associations, we will finish her physical exam with labs and plan for transport to geriatric psych. 2325, patient became more aggressive towards staff and more paranoid and could not be reoriented. Patient had to be given IM 200 mg ketamine along with 1 mg of Ativan and 5 mg of Haldol. Patient will continue to monitor for cardiac and oxygen protocol. I was present with patient until 2342. She will be continued monitored. This patient was originally seen by NATHALIE Hoffman.? I agree with his history, evaluation, and treatment. I have seen the patient as well. She remained stable on the monitor. Current vital signs blood pressure 150/55, saturations 93% on room air, heart rate 63, respirations 22. Time 01: 02. 05:55 patient remains groggy, but very arousable. Vitals are stable. She remains medically stable. Continuing to search for a geriatric psychiatry facility. Patient's been noncombative here did have patient evaluated with Dr. Persaud who feels patient does not require psych admission Kayleen had called up as well and is agreeable to take her back at this time. Will discharge her back to [facility] Lab Data 04/04/24 21:59 04/04/24 21:59 Radiology Impressions Chest X-Ray 04/04/24 21:05 IMPRESSION: 1. No acute cardiopulmonary abnormality. Head CT 04/04/24 21:05 IMPRESSION: 1. No acute intracranial abnormality. Laboratory Results WBC 10.46 10^3/uL (3.29-11.43) 04/04/24 21:59 RBC 4.30 10^6/uL (3.85-5.65) 04/04/24 21:59 Hgb 11.00 g/dL (11.27-16.99) L 04/04/24 21:59 Hct 36.4 % (36-47) 04/04/24 21:59 MCV 84.7 fl (85-98) L 04/04/24 21:59 MCH 25.6 pg (27-33) L 04/04/24 21:59 MCHC 30.2 g/dL (30-55) 04/04/24 21:59 RDW 17.0 % (12.1-15.1) H 04/04/24 21:59 Plt Count 298 10^3/cmm (157-399) 04/04/24 21:59 MPV 9.8 fL (7.4-10.4) 04/04/24 21:59 Neut % (Auto) 76.6 % 04/04/24 21:59 Lymph % (Auto) 10.3 % 04/04/24 21:59 [place] % (Auto) 6.4 % 04/04/24 21:59 Eos % (Auto) 5.3 % 04/04/24 21:59 Baso % (Auto) 0.8 % 04/04/24 21:59 Neut # (Auto) 8.02 10^3/uL (1.8-7.7) H 04/04/24 21:59 Lymph # (Auto) 1.1 10^3/uL (0.8-4.8) 04/04/24 21:59 [place] # (Auto) 0.7 10^3/uL (0.2-0.9) 04/04/24 21:59 Eos # (Auto) 0.6 10^3/uL (0.0-0.8) 04/04/24 21:59 Baso # (Auto) 0.1 10^3/uL (0.0-0.1) 04/04/24 21:59 Nucleated RBC % (auto) 0 % 04/04/24 21:59 Nucleated RBCs # 0.0 /100WBC 04/04/24 21:59 PT 13.00 SECONDS (12.1-14.9) 04/04/24 21:59 INR 0.96 (0.8-1.2) 04/04/24 21:59 Sodium 146 mmol/L (136-145) H 04/04/24 21:59 Potassium 4.5 mmol/L (3.5-5.1) 04/04/24 21:59 Chloride 112 mmol/L (98-107) H 04/04/24 21:59 Carbon Dioxide 24 mmol/L (22-29) 04/04/24 21:59 Anion Gap 14.5 (5-19) 04/04/24 21:59 BUN 47 mg/dL (8-23) H 04/04/24 21:59 Creatinine 1.8 mg/dL (0.5-0.9) H 04/04/24 21:59 GFR Calculation 28.3 mL/min (90-130) L 04/04/24 21:59 Glucose 159 mg/dL (65-115) H 04/04/24 21:59 POC Glucose 158 mg/dL (70-110) H 04/04/24 22:14 Calculated Osmolality 318 mOsm/kg (285-295) H 04/04/24 21:59 Calcium 8.6 mg/dL (8.5-10.5) 04/04/24 21:59 Total Bilirubin 0.2 mg/dL (0.15-1.2) 04/04/24 21:59 AST 16 U/L (0-32) 04/04/24 21:59 ALT 18 U/L (0-33) 04/04/24 21:59 Alkaline Phosphatase 128 U/L (35-105) H 04/04/24 21:59 Troponin T Baseline 63 ng/L (0-10) H 04/04/24 21:59 Troponin T 120 Minute 63.72 ng/L (0-10) H 04/04/24 23:18 Delta Troponin T 0.72 ABS# (0-10) 04/04/24 23:18 Troponin T Hi Sens 6Hr 63.13 ng/L (0-10) H 04/05/24 04:27 Troponin T Hi Sens 6Hr Delta 0.13 ng/L (0-12) 04/05/24 04:27 NT-Pro-B Natriuret Pep 1730 pg/mL (0-125) H 04/05/24 10:41 Total Protein 5.2 g/dL (6.6-8.7) L 04/04/24 21:59 Albumin 3.3 g/dL (3.5-5.2) L 04/04/24 21:59 Globulin 1.9 g/dL (1.3-4.6) 04/04/24 21:59 TSH 2.09 uIU/mL (0.27-4.20) 04/04/24 21:59 Free T4 0.97 ng/dL (0.82-1.77) 04/05/24 04:27 Urine Color Yellow (Yellow) 04/04/24 23:00 Urine Appearance Turbid (CLEAR) A 04/04/24 23:00 Urine pH 5.5 (5-7) 04/04/24 23:00 Ur Specific Hallam 1.022 (1.005-1.030) 04/04/24 23:00 Urine Protein 3+ (Negative) A 04/04/24 23:00 Urine Glucose (UA) Negative (Normal) 04/04/24 23:00 Urine Ketones Negative (Negative) 04/04/24 23:00 Urine Blood 1+ (Negative) A 04/04/24 23:00 Urine Nitrate Negative (Negative) 04/04/24 23:00 Urine Bilirubin Negative (Negative) 04/04/24 23:00 Urine Urobilinogen 1.0 mg/dL (Negative) 04/04/24 23:00 Ur Leukocyte Esterase Negative (Negative) 04/04/24 23:00 Urine RBC 0-4 /hpf (0-2) H 04/04/24 23:00 Urine WBC 5-10 /hpf (0-5) H 04/04/24 23:00 Ur Squamous Epith Cells 15-25 /hpf (0-5) H 04/04/24 23:00 Amorphous Sediment Not Reportable 04/04/24 23:00 Urine Bacteria 1+ /hpf (NONE) H 04/04/24 23:00 Hyaline Casts 15-25 /lpf H 04/04/24 23:00 Fine Granular Casts 0-4 /lpf H 04/04/24 23:00 Urine Mucus Trace /hpf 04/04/24 23:00 Salicylates < 0.3 mg/dL (3-10) L 04/04/24 21:59 Urine Opiates Screen Negative ng/mL (Negative) 04/04/24 23:00 Acetaminophen < 5.0 ug/mL (10-30) L 04/04/24 21:59 Ur Barbiturates Screen Negative ng/mL (Negative) 04/04/24 23:00 Ur Phencyclidine Scrn Negative ng/mL (Negative) 04/04/24 23:00 Ur Amphetamines Screen Negative ng/mL (Negative) 04/04/24 23:00 U Benzodiazepines Scrn Negative ng/mL (Negative) 04/04/24 23:00 Urine Cocaine Screen Negative ng/mL (Negative) 04/04/24 23:00 U Marijuana (THC) Screen Negative ng/mL (Negative) 04/04/24 23:00 Ethyl Alcohol < 10 mg/dL (0-10) 04/04/24 21:59 Adenovirus (PCR) Not detected (NOT DETECT) 04/04/24 01:09 C. pneumoniae DNA (PCR) Not detected (NOT DETECT) 04/04/24 01:09 Coronavirus 229E (PCR) Not detected (NOT DETECT) 04/04/24 01:09 Human Metapneumovir PCR Not detected (NOT DETECT) 04/04/24 01:09 Influenza A (H1) PCR Not detected (NOT DETECT) 04/04/24 01:09 Influ A (H1/09) PCR Not detected (NOT DETECT) 04/04/24 01:09 Influenza A (H3) PCR Not detected (NOT DETECT) 04/04/24 01:09 Influenza Type A (PCR) Not detected (NOT DETECT) 04/04/24 01:09 Influenza Type B (PCR) Not detected (NOT DETECT) 04/04/24 01:09 M. pneumoniae (PCR) Not detected (NOT DETECT) 04/04/24 01:09 Parainfluenza 1 (PCR) Not detected (NOT DETECT) 04/04/24 01:09 Parainfluenza 2 (PCR) Not detected (NOT DETECT) 04/04/24 01:09 Parainfluenza 3 (PCR) Not detected (NOT DETECT) 04/04/24 01:09 Parainfluenza 4 (PCR) Not detected (NOT DETECT) 04/04/24 01:09 RSV Type A (PCR) Not detected (NOT DETECT) 04/04/24 01:09 RSV Type B (PCR) Not detected (NOT DETECT) 04/04/24 01:09 Entero/Rhino (PCR) Not detected (NOT DETECT) 04/04/24 01:09 SARS-CoV-2 (PCR) Not detected (NOT DETECT) 04/04/24 01:09 All radiology interpretation(s) finalized by discharge Discharge Plan Discharge Patient Disposition: Home Clinical Impression: Paranoid behavior, Agitation Condition: Stable Prescriptions: No Action (DME) Dexcom G7 Sensor Device See Rx Instructions .Route Qty: 1 0RF Rx Instructions: As directed (DME) Dexcom G7 Supervisor Customer Records Division Misc See Rx Instructions .Route Qty: 1 6RF Rx Instructions: As directed allopurinol 300 mg tablet 300 mg PO DAILY Qty: 90 0RF potassium chloride 10 mEq capsule, extended release 10 meq PO DAILY Qty: 30 11RF tramadol 50 mg tablet 50 mg PO Q6H PRN (Reason: pain) Qty: 120 5RF atorvastatin 40 mg tablet 40 mg PO DAILY cetirizine 10 mg Tablet 10 mg PO DAILY magnesium hydroxide [Milk of Magnesia] 400 mg/5 mL Suspension 30 ml PO DAILY PRN (Reason: Constipation) calcium carbonate 500 mg calcium (1,250 mg) Tablet,Chewable 500 mg PO Q8H PRN (Reason: gastro-esophageal reflux) insulin glargine [Lantus Solostar U-100 Insulin] 100 unit/mL (3 mL) insulin pen 33 unit SUBCUT BID acetaminophen [Tylenol] 325 mg Tablet 650 mg PO Q6H PRN (Reason: PAIN OR ELEVATED TEMP) omeprazole 20 mg Capsule,Delayed Release(Dr/Ec) 20 mg PO DAILY insulin aspart U-100 [Novolog FlexPen U-100 Insulin] 100 unit/mL (3 mL) insulin pen 15 unit SUBCUT TID Rx Instructions: sliding scale before meals tid 150-200=4 units 201-250=6 units 251-300=10 units 301-400=15 units clopidogrel 75 mg tablet 75 mg PO DAILY metoprolol tartrate 25 mg tablet 37.5 mg PO BID furosemide 40 mg tablet 40 mg PO QAM ondansetron HCl 4 mg tablet 4 mg PO Q6H PRN (Reason: Nausea And Vomiting) olanzapine 2.5 mg tablet 2.5 mg PO BEDTIME ascorbic acid (vitamin C) [Vitamin C] 500 mg tablet 500 mg PO DAILY diphenhydramine HCl [Banophen] 25 mg Capsule 25 mg PO Q12H PRN (Reason: Allergy Symptoms) lidocaine 5 % Adhesive Patch,Medicated 1 patch TOPICAL Q12H PRN (Reason: Pain) Rx Instructions: leave on most painful area for up to 12 hrs lisinopril 40 mg tablet 40 mg PO DAILY fluticasone propionate 50 mcg/actuation spray,suspension 1 spray INTRANASAL Q12H PRN (Reason: ALLERGIES) duloxetine 60 mg capsule,delayed release(DR/EC) 60 mg PO DAILY Discharge Orders: Discharge ED (Routine); Ordered 04/05/24 Ordered By: Laure Atkinson Referrals: Benigno Jennings DO [Primary Care Provider] - 4-7 days Discharge Diet: Advance as tolerated Discharge Activity: Resume usual activity Patient Instructions: Confusion Coding Level of Care Code ED Food Service Specialist for Avery Rocha
--- NOTE | 2024-04-04 21:05 | CTR_ITS ---
PROCEDURE INFORMATION: Exam: CT Head Without Contrast Exam date and time: 04/04/2024 9:19 PM Age: 64 years old Clinical indication: Altered mental status/memory loss; Patient HX: EMS arrival from [facility] for [facility]. Patient alert to self but rambles with nonsensical statements. History of left sided CVA. TECHNIQUE: Imaging protocol: Computed tomography of the head without contrast. Radiation optimization: All CT scans at this facility use at least one of these dose optimization techniques: automated exposure control; mA and/or kV adjustment per patient size (includes targeted exams where dose is matched to clinical indication); or iterative reconstruction. COMPARISON: CT head wo con* [id number] 03/03/2024 12:35 PM RADIATION DOSE METRICS: Total DLP (mGy-cm): 1074.98 FINDINGS: Brain: Large region of the left temporoparietal encephalomalacia. Small chronic right cerebellar hemispheric infarct. No evidence of intra-axial or extra-axial hemorrhage. No mass effect or midline shift. Basilar cisterns are patent. Cerebral ventricles: No hydrocephalus. Paranasal sinuses: The visualized paranasal sinuses are well aerated. Mastoid air cells: The visualized mastoids and middle ears are clear. Bones: Calvarium is intact. No evidence of acute fracture. Soft tissues: No gross soft tissue abnormality. CT/CT head wo con* [id number] IMPRESSION: 1. No acute intracranial abnormality.
--- NOTE | 2024-04-04 21:05 | XRR_ITS ---
PROCEDURE INFORMATION: Exam: XR Chest Exam date and time: 04/04/2024 9:09 PM Age: 64 years old Clinical indication: Patient HX: AMS; Cough TECHNIQUE: Imaging protocol: Radiologic exam of the chest. Views: 1 view. COMPARISON: CR XR chest 1V portable [id number] 03/03/2024 12:14 PM FINDINGS: Lungs: No focal consolidation. Pleural spaces: No evidence of pneumothorax. No evidence of pleural effusion. Heart/Mediastinum: Cardiomediastinal silhouette is within normal limits. Bones/joints: No evidence of acute osseous abnormality. XR/XR chest 1V portable [id number] IMPRESSION: 1. No acute cardiopulmonary abnormality.
[2024-04-04 22:03] VITALS: BP 197/69; PULSE 67; RESP 18; O2SAT 96
[2024-04-04 22:03] LABS: Basophils # 0.1 10^3/uL (0.0-0.1); Basophils % 0.8 %; Eosinophils # 0.6 10^3/uL (0.0-0.8); Eosinophils % 5.3 %; Hematocrit 36.4 % (36-47); Lymphocytes # 1.1 10^3/uL (0.8-4.8); Lymphocytes % 10.3 %; Mean Corpuscular HGB Conc 30.2 g/dL (30-55); Mean Corpuscular Hemoglobin 25.6 pg (27-33); Mean Corpuscular Volume 84.7 fl (85-98); Mean Platelet Volume 9.8 fL (7.4-10.4); Monocytes # 0.7 10^3/uL (0.2-0.9); Monocytes % 6.4 %; Neutrophils # 8.02 10^3/uL (1.8-7.7); Neutrophils % 76.6 %; Nucleated Red Blood Cells % 0 %; Platelet Count 298 10^3/cmm (157-399); White Blood Count 10.46 10^3/uL (3.29-11.43)
--- NOTE | 2024-04-04 22:17 | ECG_ITS ---
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 Measurements Intervals [place] Rate: 66 P: 31 SD: 214 QRS: -50 QRSD: 133 T: 76 QT: 440 QTc: 461 Interpretive Statements SINUS RHYTHM WITH FIRST DEGREE AV BLOCK RIGHT BUNDLE BRANCH BLOCK [120+ ms QRS DURATION, UPRIGHT V1, 40+ ms S IN I/aVL/V4/V5/V6] LEFT ANTERIOR FASCICULAR BLOCK [QRS AXIS <= -45, QR IN I, RS IN II] LEFT VENTRICULAR HYPERTROPHY AND ST-T CHANGE [VOLTAGE CRITERIA PLUS ST/T ABNORMALITY] POSSIBLE SEPTAL MYOCARDIAL INFARCTION , OF INDETERMINATE AGE [30 ms Q WAVE IN V1/V2] Compared to ECG 03/03/2024 12:08:48 First degree AV block now present Left anterior fascicular block now present Sinus bradycardia no longer present Left-axis deviation no longer present ST (T wave) deviation still present Myocardial infarct finding still present Electronically Signed On 04-05-2024 12:03:52 CDT by Miguel Zimmer M.D. [id number]
[2024-04-04 22:19] LABS: INR 0.96 (0.8-1.2)
[2024-04-04 22:27] LABS: Troponin(5th) Baseline 63 ng/L (0-10)
[2024-04-04 22:36] LABS: Alanine Aminotransferase 18 U/L (0-33); Albumin Level 3.3 g/dL (3.5-5.2); Alkaline Phosphatase 128 U/L (35-105); Anion Gap 14.5 (5-19); Aspartate Amino Transferase 16 U/L (0-32); Blood Urea Nitrogen 47 mg/dL (8-23); Calcium 8.6 mg/dL (8.5-10.5); Carbon Dioxide 24 mmol/L (22-29); Chloride 112 mmol/L (98-107); Creatinine Clr Calc Pharmacy 36.9436; Globulin 1.9 g/dL (1.3-4.6); Glomerular Filtration Rate 28.3 mL/min (90-130); Glucose 159 mg/dL (65-115); NT Pro B Type Natriuretic Pept 1586 pg/mL (0-125); Osmolality Calculated 318 mOsm/kg (285-295); Potassium 4.5 mmol/L (3.5-5.1); Sodium 146 mmol/L (136-145); Thyroid Stimulating Hormone 2.09 uIU/mL (0.27-4.20); Total Bilirubin 0.2 mg/dL (0.15-1.2); Total Protein 5.2 g/dL (6.6-8.7)
[2024-04-04 22:37] LABS: Acetaminophen < 5.0 ug/mL (10-30); Alcohol Level < 10 mg/dL (0-10); Salicylate < 0.3 mg/dL (3-10)
[2024-04-04 22:40] LABS: Glucose Point of Care 158 mg/dL (70-110)
[2024-04-04 22:42] VITALS: BP 169/70; PULSE 78; RESP 16; O2SAT 95
[2024-04-04] MEDS: haloperidol inj 5 mg/mL INJ 1 mL IM (23:26)
[2024-04-04 23:30] VITALS: PULSE 80; RESP 22
[2024-04-04] MEDS: ketamine 100 mg/mL Inj 5 mL 200 MG IM (23:35)
[2024-04-04 23:38] LABS: Troponin 5 2HR 63.72 ng/L (0-10); Troponin 5 2HR Delta 0.72 ABS# (0-10)
[2024-04-04 23:44] LABS: Charge for UA Resulting for Rev
[2024-04-04 23:49] LABS: Bilirubin Urine Negative (Negative); Blood Urine 1+ (Negative); Glucose Urine UA Negative (Normal); Ketones Urine Negative (Negative); Leukocyte Esterase Urine Negative (Negative); Nitrate Urine Negative (Negative); Specific Gravity, Urine 1.022 (1.005-1.030); Urine Appearance Turbid (CLEAR); Urine Color Yellow (Yellow); pH Urine 5.5 (5-7)
[2024-04-04] MEDS: LORazepam 2 mg/mL INJ 1 mL 1 MG IM (23:50)
[2024-04-04 23:55] LABS: Protein Urine 3+ (Negative)
[2024-04-04 23:56] LABS: Amphetamines Screen Urine Negative (Negative); Barbiturates Screen Urine Negative (Negative); Benzodiazepines Screen Urine Negative (Negative); Cocaine Screen Urine Negative (Negative); Opiate Screen Urine Negative (Negative); PCP Screen Urine Negative (Negative); THC Screen Urine Negative (Negative)
[2024-04-05] VITALS (22 sets, daily range): BP systolic 135–202; BP diastolic 56–86; PULSE 49–80; RESP 14–25; O2SAT 92–100
[2024-04-05 00:12] LABS: RBC Urine 0-4 /hpf (0-2); UA Manual Slide Review YES; UA Slide Review UA Slide Review Perf
[2024-04-05 00:13] LABS: Bacteria Urine 1+ /hpf; Fine Granular Casts Urine 0-4 /lpf; Hyaline Casts Urine 15-25 /lpf; Mucus Urine TRACE /hpf; Squamous Epithelial Cell Urine 15-25 /hpf (0-5)
--- NOTE | 2024-04-05 00:53 | PC.NURSE ---
Was called to bedside by staff at approximately 2315 for a pt yelling in the hallway. Upon arrival, pt was standing in her room with multiple staff members at bedside, including security. Provider at bedside to help with situation. IM medications brought, pt refused to sit on bed, grabbed chair in an attempt to throw, security removed chair. Multiple attempts made to reorient pt, several options given. Pt refused all options, speaking loud nonsense. Pt began calling staff names, escalating behaviors, pt ultimately placed in 5 point manual hold for safe medication administration. Hold started at 2325 and ended at approximately 2343.
[2024-04-05 03:24] LABS: Adenovirus Not Detected (NOT DETECT); Chlamydia Pneumoniae Not Detected (NOT DETECT); Coronavirus 229E,HKU1,NL63,OC4 Not Detected (NOT DETECT); Human Metapneumovirus Not Detected (NOT DETECT); Human Rhinovirus/Enterovirus Not Detected (NOT DETECT); Influenza A Not Detected (NOT DETECT); Influenza A H1 Not Detected (NOT DETECT); Influenza A H1-2009 Not Detected (NOT DETECT); Influenza A H3 Not Detected (NOT DETECT); Influenza B Not Detected (NOT DETECT); Mycoplasma Pneumoniae Not Detected (NOT DETECT); Parainfluenza Virus Type 1 Not Detected (NOT DETECT); Parainfluenza Virus Type 2 Not Detected (NOT DETECT); Parainfluenza Virus Type 3 Not Detected (NOT DETECT); Parainfluenza Virus Type 4 Not Detected (NOT DETECT); Respiratory Syncytial Virus A Not Detected (NOT DETECT); Respiratory Syncytial Virus B Not Detected (NOT DETECT); SARS-COV-2 Not Detected (NOT DETECT)
--- NOTE | 2024-04-05 04:08 | ECG_ITS ---
[facility] Test Date: 2024-04-05 Pat Name: Hilda Wallace Department: Room: Gender: Female Test Operator: : 1960 Requested By: Brandon Solitario Order Number: [id number] Chávez MD: Miguel Zimmer M.D. Measurements Intervals [place] Rate: 53 P: 32 HI: 223 QRS: -46 QRSD: 138 T: 51 QT: 506 QTc: 477 Interpretive Statements SINUS BRADYCARDIA WITH FIRST DEGREE AV BLOCK RIGHT BUNDLE BRANCH BLOCK [120+ ms QRS DURATION, UPRIGHT V1, 40+ ms S IN I/aVL/V4/V5/V6] LEFT ANTERIOR FASCICULAR BLOCK [QRS AXIS <= -45, QR IN I, RS IN II] LEFT VENTRICULAR HYPERTROPHY AND ST-T CHANGE [VOLTAGE CRITERIA PLUS ST/T ABNORMALITY] POSSIBLE SEPTAL MYOCARDIAL INFARCTION , OF INDETERMINATE AGE [30 ms Q WAVE IN V1/V2] Compared to ECG 04/04/2024 22:17:50 Sinus rhythm no longer present ST (T wave) deviation still present Myocardial infarct finding still present Electronically Signed On 04-05-2024 12:08:15 CDT by Miguel Zimmer M.D. [id number]
[2024-04-05 04:59] LABS: Troponin 5 6HR 63.13 ng/L (0-10); Troponin 5 6HR Delta 0.13 ng/L (0-12)
[2024-04-05 11:26] LABS: NT Pro B Type Natriuretic Pept 1730 pg/mL (0-125)
[2024-04-05 11:53] LABS: Free T4 Free Thyroxine 0.97 ng/dL (0.82-1.77)
--- NOTE | 2024-04-05 12:12 | PC.NURSE ---
this nurse assumed pt care at 1212.
[2024-04-05] MEDS: hyDRALAzine 20 mg/mL INJ 1 mL 10 MG IVP (13:49)
[2024-04-05] MEDS: OLANZapine 5 mg TABLET 2.5 MG PO (18:57)
[2024-04-05] MEDS: insulin glargine 100 units/1 mL 33 UNIT SUBCUT (18:58)
[2024-04-05] MEDS: insulin aspart 70/30 100 units/1 mL 15 UNIT SUBCUT (19:00)
[2024-04-05] MEDS: metoprolol tartrate 25 mg Tablet 37.5 MG PO (20:22)
== END 2024-04-05 22:06 | disposition home or self-care (01) ==
PROVIDERS: Nurse Practitioner Family; Emergency Provider Emergency Medicine; PCP Family Medicine
DX: F22 Delusional disorders (principal); R45.1 Restlessness and agitation; Z79.02 Long term (current) use of antithrombotics/antiplatelets; Z79.4 Long term (current) use of insulin; Z11.52 Encounter for screening for COVID-19; Z87.891 Personal history of nicotine dependence; I10 Essential (primary) hypertension; Z86.73 Personal history of transient ischemic attack (TIA), and cerebral infarction without residual deficits; E78.2 Mixed hyperlipidemia; E11.40 Type 2 diabetes mellitus with diabetic neuropathy, unspecified
CPT/HCPCS: 36415; 36416; 70450; 71045; 80053; 80306; 80307; 81003; 81015; 82962; 83880; 84439; 84443; 84484; 85025; 85610; 87486; 87581; 87633; 93005; 96372; 96374; 99285; J0360; J1630; J1815; J2060; J3490

== ENCOUNTER 2024-04-05 22:59 | Emergency (ER) | payer MEDICARE, SELFPAY ==
[2024-04-05 23:02] VITALS: BP 237/90; PULSE 61; RESP 18; TEMP 36.7; O2SAT 98; BMI 39.9
--- NOTE | 2024-04-05 23:16 | W.ED.GENADLT ---
HPI - General Adult General: Chief complaint: General Medical Stated complaint: htn Time Seen by Provider: 04/05/24 23:09 History of Present Illness: Patient was seen earlier today in the ER and discharged and was sent back to [facility] [place]. [facility] refused to take the patient's back due to her blood pressure. Upon patient's arrival over here with a wrist cuff on it was dangling down by her waist her blood pressure was 237/90 patient had no complaints. Related Data Home Medications Medication Instructions Recorded Confirmed clopidogrel 75 mg tablet 75 mg PO DAILY 07/08/20 04/05/24 metoprolol tartrate 25 mg tablet 37.5 mg PO BID 07/08/20 04/05/24 acetaminophen 325 mg tablet 650 mg PO Q6H PRN PAIN OR ELEVATED 10/03/21 04/05/24 (Tylenol) TEMP atorvastatin 40 mg tablet 40 mg PO DAILY 10/03/21 04/05/24 calcium carbonate 500 mg PO Q8H PRN 10/03/21 04/05/24 gastro-esophageal reflux cetirizine 10 mg tablet 10 mg PO DAILY 10/03/21 04/05/24 insulin aspart U-100 100 unit/mL 15 unit SUBCUT TID 10/03/21 04/05/24 (3 mL) subcutaneous pen (Novolog FlexPen U-100 Insulin aspart) insulin glargine 100 unit/mL (3 33 unit SUBCUT BID 10/03/21 04/05/24 mL) subcutaneous pen (Lantus Solostar U-100 Insulin) magnesium hydroxide 400 mg/5 mL 30 ml PO DAILY PRN Constipation 10/03/21 04/05/24 oral suspension (Milk of Magnesia) omeprazole 20 mg capsule,delayed 20 mg PO DAILY 10/03/21 04/05/24 release ascorbic acid (vitamin C) 500 mg 500 mg PO DAILY 03/03/24 04/05/24 tablet (Vitamin C) diphenhydramine HCl 25 mg capsule 25 mg PO Q12H PRN Allergy Symptoms 03/03/24 04/05/24 (Banophen) duloxetine 60 mg capsule,delayed 60 mg PO DAILY MAJOR DEPRESSIVE 03/03/24 04/05/24 release DISORDER fluticasone propionate 50 1 spray intranasal Q12H PRN 03/03/24 04/05/24 mcg/actuation nasal ALLERGIES spray,suspension furosemide 40 mg tablet 40 mg PO QAM 03/03/24 04/05/24 lidocaine 5 % topical patch 1 patch topical Q12H PRN Pain 03/03/24 04/05/24 lisinopril 40 mg tablet 40 mg PO DAILY 03/03/24 04/05/24 olanzapine 2.5 mg tablet 2.5 mg PO BEDTIME 03/03/24 04/05/24 ondansetron HCl 4 mg tablet 4 mg PO Q6H PRN Nausea And Vomiting 03/03/24 04/05/24 Previous Rx's Medication Instructions Recorded allopurinol 300 mg tablet 300 mg PO DAILY #90 tabs 05/03/20 potassium chloride 10 mEq 10 meq PO DAILY #30 caps 09/12/22 capsule,extended release 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 meter,continuous #1 ea 03/12/23 (Dexcom G7 Wastewater Superintendent) 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 sensor (Dexcom G7 #1 ea 03/12/23 Sensor device) tramadol 50 mg tablet 50 mg PO Q6H PRN pain #120 tabs 11/18/23 Allergies Allergy/AdvReac Type Severity Reaction Status Date / Time clarithromycin [From Biaxin] Allergy nausea Verified 04/05/24 23:11 clindamycin Allergy shock Verified 04/05/24 23:11 diclofenac Allergy swelling Verified 04/05/24 23:11 enalapril Allergy unknown Verified 04/05/24 23:11 ketorolac [From Toradol] Allergy short of Verified 04/05/24 23:11 breath losartan [From Cozaar] Allergy shock Verified 04/05/24 23:11 nifedipine [From Procardia] Allergy hives Verified 04/05/24 23:11 pregabalin [From Lyrica] Allergy unknown Verified 04/05/24 23:11 Sulfa (Sulfonamide Allergy anaphylasix Verified 04/05/24 23:11 Antibiotics) Review of Systems General: Reports: 10 or more systems reviewed and unremarkable except in HPI and below PFSH ED PFSH: Medical History Paranoid Expressive aphasia Altered mental status Anxiety and depression Lives in assisted living facility Rotator cuff tear, right Diabetes mellitus insulin dependent Essential (primary) hypertension Depression due to cerebrovascular accident (CVA) Expressive aphasia Hypomagnesemia Bilateral pneumonia Hyponatremia Hyperkalemia DELORIS (acute kidney injury) Right humeral fracture Metabolic encephalopathy Resolved Acute delirium Resolved Pneumonia due to COVID-19 virus Resolved Poor social situation Multinodular thyroid Acute embolic stroke Recurrent falls Resolved History of CVA (cerebrovascular accident) Acute hypersomnolence disorder LEROY on CPAP Essential hypertension [place]ern[place]ke dysphasia Diabetes mellitus with neuropathy Mixed hyperlipidemia Surgical History History of nasal sinusotomy History of cholecystectomy History of tonsillectomy History of repair of rotator cuff History of hysterectomy for indication other than malignancy History of bursectomy Hx of adenoidectomy Status post anal fissurectomy History of colonoscopy Family History Mother CAD (coronary artery disease) Other Asthma Cancer Diabetes Heart disease Hypertension Stroke Social History Smoking and tobacco/nicotine status: former use of tobacco/nicotine Alcohol intake: current Alcohol intake frequency: few times a month Substance/Drug Use: never Physical Exam Const: COMMON NORMALS: no acute distress, average body habitus, patient oriented x3, no limitations, healthy appearing, alert and well nourished HENMT: COMMON NORMALS: normocephalic, atraumatic, hearing grossly normal bilaterally, external ears normal, Normal external nose present and moist oral mucous membranes HEAD & SCALP: normocephalic and atraumatic NOSE: Normal external nose present EXTERNAL EAR: Yes external ears normal Neck/C-Spine: COMMON NORMALS: no JVD Chest: COMMONS NORMALS: normal inspection of the chest and normal palpation of entire chest wall Resp: COMMON NORMALS: normal respiratory effort, No retractions, No use of accessory muscles and clear to auscultation bilaterally AUSCULTATION: clear to auscultation bilaterally Cardio: COMMON NORMALS: no JVD, regular rate, regular rhythm, S1 normal heart sound present, S2 normal heart sound present, No gallops present (Cardio), No clicks present (Cardio), No murmurs present (Cardio) and No rub (Cardio) RATE: regular rate RHYTHM: regular rhythm HEART SOUNDS: S1 normal heart sound present and S2 normal heart sound present GI: COMMON NORMALS: Normal to inspection, nondistended, normoactive bowel sounds present, Soft to palpation, non-tender, No hepatosplenomegaly present and no masses PALPATION: Yes Soft to palpation and Yes No hepatosplenomegaly present Neuro: COMMON NORMALS: patient oriented x3 SENSORIUM/ORIENTATION: Yes alert Course Vital Signs: Vital signs: Vital Signs Temperature 98.0 F 04/05/24 23:02 Pulse Rate 56 L 04/06/24 00:26 Respiratory Rate 18 04/06/24 00:26 Blood Pressure 206/96 04/06/24 00:26 Pulse Oximetry 99 04/06/24 00:26 Oxygen Delivery Me thod Room Air 04/06/24 00:26 MDM - General Adult Medical Decision Making Patient was given 1 dose of clonidine 0.2 and 1 dose of hydralazine 50 mg and this decreased her blood pressure from 237/90 to 151/50. Patient be discharged back to [place] [facility]. Medical Records I reviewed the patient's medical records. Lab Data I reviewed the patient's lab results. No radiology studies performed this visit Discharge Plan Discharge Patient Disposition: Home Clinical Impression: Hypertension Qualifiers: Hypertension type: unspecified Qualified Code(s): I10 - Essential (primary) hypertension Condition: Stable Prescriptions: No Action (DME) Dexcom G7 Sensor Device See Rx Instructions .Route Qty: 1 0RF Rx Instructions: As directed (DME) Dexcom G7 Wastewater Superintendent Misc See Rx Instructions .Route Qty: 1 6RF Rx Instructions: As directed allopurinol 300 mg tablet 300 mg PO DAILY Qty: 90 0RF potassium chloride 10 mEq capsule, extended release 10 meq PO DAILY Qty: 30 11RF tramadol 50 mg tablet 50 mg PO Q6H PRN (Reason: pain) Qty: 120 5RF atorvastatin 40 mg tablet 40 mg PO DAILY cetirizine 10 mg Tablet 10 mg PO DAILY magnesium hydroxide [Milk of Magnesia] 400 mg/5 mL Suspension 30 ml PO DAILY PRN (Reason: Constipation) calcium carbonate 500 mg calcium (1,250 mg) Tablet,Chewable 500 mg PO Q8H PRN (Reason: gastro-esophageal reflux) insulin glargine [Lantus Solostar U-100 Insulin] 100 unit/mL (3 mL) insulin pen 33 unit SUBCUT BID acetaminophen [Tylenol] 325 mg Tablet 650 mg PO Q6H PRN (Reason: PAIN OR ELEVATED TEMP) omeprazole 20 mg Capsule,Delayed Release(Dr/Ec) 20 mg PO DAILY insulin aspart U-100 [Novolog FlexPen U-100 Insulin] 100 unit/mL (3 mL) insulin pen 15 unit SUBCUT TID Rx Instructions: sliding scale before meals tid 150-200=4 units 201-250=6 units 251-300=10 units 301-400=15 units clopidogrel 75 mg tablet 75 mg PO DAILY metoprolol tartrate 25 mg tablet 37.5 mg PO BID furosemide 40 mg tablet 40 mg PO QAM ondansetron HCl 4 mg tablet 4 mg PO Q6H PRN (Reason: Nausea And Vomiting) olanzapine 2.5 mg tablet 2.5 mg PO BEDTIME ascorbic acid (vitamin C) [Vitamin C] 500 mg tablet 500 mg PO DAILY diphenhydramine HCl [Banophen] 25 mg Capsule 25 mg PO Q12H PRN (Reason: Allergy Symptoms) lidocaine 5 % Adhesive Patch,Medicated 1 patch TOPICAL Q12H PRN (Reason: Pain) Rx Instructions: leave on most painful area for up to 12 hrs lisinopril 40 mg tablet 40 mg PO DAILY fluticasone propionate 50 mcg/actuation spray,suspension 1 spray INTRANASAL Q12H PRN (Reason: ALLERGIES) duloxetine 60 mg capsule,delayed release(DR/EC) 60 mg PO DAILY Discharge Orders: Discharge ED (Routine); Ordered 04/06/24 Ordered By: Rubio Foote Referrals: Benigno Jennings DO [Primary Care Provider] - 1 week Patient Instructions: Hypertension Activity Restrictions/Additional Instructions: Thank you for choosing [facility] for your healthcare needs today. Please realize that you were seen in the emergency department and that we are providing you with an emergency medical screening exam and this may not be a complete and all exclusive of all testing and/or medical workup we may need to determine your element or severity of your illness. It is very important that you follow-up as instructed with your primary care provider or specialist for the additional evaluation and to discuss your medical treatment plan. You may return to the emergency department should you have concerns or if your condition changes or worsens in any way. Coding Level of Care Code ED Equipment Associate for Avery Rocha
--- NOTE | 2024-04-05 23:17 | PC.NURSE ---
I called to speak with the nurse at [facility]. there was not a paper testing supervisor present so the [facility] contacted her to call us back. Zun[facility] called back and stated that they were not comfortable with the pts BP on arrival to [place] but would accept her back if and when she was discharged.
[2024-04-05] MEDS: cloNIDine 0.1 mg Tablet 0.2 MG PO (23:18)
[2024-04-06] VITALS: BP 218/88; PULSE 67; O2SAT 97
[2024-04-06 00:26] VITALS: BP 206/96; PULSE 56; RESP 18; O2SAT 99
[2024-04-06 00:30] VITALS: BP 198/67; PULSE 52; O2SAT 98
[2024-04-06] MEDS: hyDRALAzine 25 mg Tablet 50 MG PO (00:51)
[2024-04-06 01:00] VITALS: BP 151/50; PULSE 57; O2SAT 96
[2024-04-06 01:30] VITALS: BP 157/53; PULSE 60; O2SAT 99
== END 2024-04-06 02:11 | disposition home or self-care (01) ==
PROVIDERS: Emergency Provider Emergency Medicine; PCP Family Medicine
DX: I10 Essential (primary) hypertension (principal); Z79.02 Long term (current) use of antithrombotics/antiplatelets; Z79.4 Long term (current) use of insulin; Z87.891 Personal history of nicotine dependence; Z86.73 Personal history of transient ischemic attack (TIA), and cerebral infarction without residual deficits; E78.2 Mixed hyperlipidemia; E11.40 Type 2 diabetes mellitus with diabetic neuropathy, unspecified
CPT/HCPCS: 99283

== ENCOUNTER 2024-04-14 18:50 | Outpatient (CLI) | payer MEDICARE, SELFPAY ==
[2024-04-14 19:00] LABS: Charge for UA Resulting for Rev
[2024-04-14 19:26] LABS: Bilirubin Urine Negative (Negative); Blood Urine Negative (Negative); Glucose Urine UA Negative (Normal); Ketones Urine Negative (Negative); Leukocyte Esterase Urine Negative (Negative); Nitrate Urine Negative (Negative); Protein Urine 3+ (Negative); Specific Gravity, Urine 1.013 (1.005-1.030); Urine Appearance Clear (CLEAR); Urine Color Yellow (Yellow); Urobilinogen Urine 0.2 mg/dL (Negative)
[2024-04-14 19:27] LABS: Basophils # 0.1 10^3/uL (0.0-0.1); Eosinophils # 0.4 10^3/uL (0.0-0.8); Eosinophils % 4.5 %; Hematocrit 33.2 % (36-47); Lymphocytes # 1.5 10^3/uL (0.8-4.8); Lymphocytes % 15.8 %; Mean Corpuscular HGB Conc 30.1 g/dL (30-55); Mean Corpuscular Hemoglobin 26.3 pg (27-33); Mean Corpuscular Volume 87.4 fl (85-98); Mean Platelet Volume 10.3 fL (7.4-10.4); Monocytes # 0.6 10^3/uL (0.2-0.9); Monocytes % 6.3 %; Neutrophils % 72.2 %; Nucleated Red Blood Cells % 0 %; Platelet Count 294 10^3/cmm (157-399); Red Cell Distribution Width 17.3 % (12.1-15.1); White Blood Count 9.28 10^3/uL (3.29-11.43)
[2024-04-14 19:38] LABS: Bacteria Urine None Seen /hpf; Hyaline Casts Urine 33.49 /lpf; RBC Urine 0-2 /hpf (0-2); Squamous Epithelial Cell Urine 0-5 /hpf (0-5); WBC Urine 0-5 /hpf (0-5)
[2024-04-14 19:57] LABS: Alanine Aminotransferase 15 U/L (0-33); Albumin Level 3.3 g/dL (3.5-5.2); Alkaline Phosphatase 104 U/L (35-105); Anion Gap 15.6 (5-19); Aspartate Amino Transferase 17 U/L (0-32); Blood Urea Nitrogen 44 mg/dL (8-23); Calcium 8.6 mg/dL (8.5-10.5); Carbon Dioxide 21 mmol/L (22-29); Chloride 110 mmol/L (98-107); Globulin 2.4 g/dL (1.3-4.6); Glomerular Filtration Rate 26.6 mL/min (90-130); Glucose 81 mg/dL (65-115); Magnesium 1.8 mg/dL (1.7-2.3); Osmolality Calculated 304 mOsm/kg (285-295); Potassium 4.6 mmol/L (3.5-5.1); Sodium 142 mmol/L (136-145); Thyroid Stimulating Hormone 1.35 uIU/mL (0.27-4.20); Total Bilirubin 0.2 mg/dL (0.15-1.2); Total Protein 5.7 g/dL (6.6-8.7); Vitamin B12 557 pg/mL (232-1245)
[2024-04-14 20:06] LABS: Estmated Average Glucose 163; Hemoglobin A1C 7.3 % (4.0-6.0)
[2024-04-14 20:07] LABS: Folate Level 6.8 ng/mL (4.8-37.3)
[2024-04-14 20:16] LABS: Add Urine Culture? No; UA Slide Review UA Slide Review Perf
== END 2024-04-14 18:51 | disposition home or self-care (01) ==
PROVIDERS: PCP Family Medicine; Visit Provider Family Medicine
DX: R73.09 Other abnormal glucose (principal); R94.6 Abnormal results of thyroid function studies; N39.0 Urinary tract infection, site not specified
CPT/HCPCS: 80053; 81003; 81015; 82607; 82746; 83036; 83735; 84443; 85025; 87086

== ENCOUNTER 2024-07-15 16:44 | Inpatient (IN) | payer MEDICARE, SELFPAY ==
--- NOTE | 2024-07-15 16:50 | XRR_ITS ---
PROCEDURE INFORMATION: Exam: XR Chest Exam date and time: 07/15/2024 4:56 PM Age: 64 years old Clinical indication: Other: AMS TECHNIQUE: Imaging protocol: Radiologic exam of the chest. Views: 1 view. COMPARISON: CR XR chest 1V portable [id number] 04/04/2024 9:09 PM FINDINGS: Lungs: Small lung volumes with increased interstitial thickening and patchy lower lobe airspace opacities bilaterally. Pleural spaces: No pleural effusion. No pneumothorax. Heart/Mediastinum: Stable cardiac contour. Bones/joints: No acute findings. XR/XR chest 1V portable [id number] IMPRESSION: Bilateral lung opacities raising concern for pulmonary edema or infection.
--- NOTE | 2024-07-15 16:50 | CTR_ITS ---
PROCEDURE INFORMATION: Exam: CT Head Without Contrast Exam date and time: 07/15/2024 5:13 PM Age: 64 years old Clinical indication: Altered mental status/memory loss; Additional info: AMS TECHNIQUE: Imaging protocol: Computed tomography of the head without contrast. Radiation optimization: All CT scans at this facility use at least one of these dose optimization techniques: automated exposure control; mA and/or kV adjustment per patient size (includes targeted exams where dose is matched to clinical indication); or iterative reconstruction. COMPARISON: CT head wo con* [id number] 04/04/2024 9:19 PM RADIATION DOSE METRICS: Total DLP (mGy-cm): 1118.58 FINDINGS: Brain: No acute intracranial hemorrhage, mass effect midline shift. Redemonstration of encephalomalacia in the left temporal and parietal lobes. Cerebral ventricles: Stable size and configuration of the ventricles. Paranasal sinuses: Visualized sinuses are unremarkable. No fluid levels. Mastoid air cells: Visualized mastoid air cells are well aerated. Bones: Unremarkable. No acute fracture. Soft tissues: Unremarkable. CT/CT head wo con* [id number] IMPRESSION: No acute intracranial findings.
--- NOTE | 2024-07-15 16:50 | ECG_ITS ---
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 Measurements Intervals [place] Rate: 75 P: 64 WV: 229 QRS: -37 QRSD: 138 T: 96 QT: 405 QTc: 454 Interpretive Statements SINUS RHYTHM WITH FIRST DEGREE AV BLOCK LEFT AXIS DEVIATION [QRS AXIS < -30] INTRAVENTRICULAR CONDUCTION DELAY [130+ ms QRS DURATION] LEFT VENTRICULAR HYPERTROPHY AND ST-T CHANGE [VOLTAGE CRITERIA PLUS ST/T ABNORMALITY] LATERAL MYOCARDIAL INFARCTION , OF INDETERMINATE AGE [40+ ms Q WAVE AND/OR ST/T ABNORMALITY IN I/aVL/V5/V6] Compared to ECG 04/05/2024 04:08:17 Intraventricular conduction delay now present Sinus bradycardia no longer present Right bundle-branch block no longer present Electronically Signed On 07-18-2024 18:57:30 EXPLOITATION ANALYST by Miguel Zimmer M.D. [id number]
[2024-07-15 16:58] VITALS: BP 219/95; PULSE 62; RESP 18; TEMP 36.7; O2SAT 99
--- NOTE | 2024-07-15 17:09 | ED.C_ITS ---
HPI - Psych 2 General: Chief Complaint: Psychiatric Symptoms Stated Complaint: behav. ams Time Seen by Provider: 07/15/24 16:44 Source: patient and EMS Mode of arrival: EMS History of Present Illness: 64-year-old female who has a history of stroke and dementia is here from assisted living for behavioral concerns see her states that she has been very aggressive she was trying to assault staff she has been hitting the wall she has been taking other patients things and orders and ripping papers up. I try to calm her down but not able to she has had psych admissions in the past. Patient here is now calm but she is not wanting to answer any questions and appears agitated Related Data Home Medications Medication Instructions Recorded Confirmed clopidogrel 75 mg tablet 75 mg PO DAILY 07/08/20 04/05/24 metoprolol tartrate 25 mg tablet 37.5 mg PO BID 07/08/20 04/05/24 acetaminophen 325 mg tablet 650 mg PO Q6H PRN PAIN OR ELEVATED 10/03/21 04/05/24 (Tylenol) TEMP atorvastatin 40 mg tablet 40 mg PO DAILY 10/03/21 04/05/24 calcium carbonate 500 mg PO Q8H PRN 10/03/21 04/05/24 gastro-esophageal reflux cetirizine 10 mg tablet 10 mg PO DAILY 10/03/21 04/05/24 insulin aspart U-100 100 unit/mL 15 unit SUBCUT TID 10/03/21 04/05/24 (3 mL) subcutaneous pen (Novolog FlexPen U-100 Insulin aspart) insulin glargine 100 unit/mL (3 33 unit SUBCUT BID 10/03/21 04/05/24 mL) subcutaneous pen (Lantus Solostar U-100 Insulin) magnesium hydroxide 400 mg/5 mL 30 ml PO DAILY PRN Constipation 10/03/21 04/05/24 oral suspension (Milk of Magnesia) omeprazole 20 mg capsule,delayed 20 mg PO DAILY 10/03/21 04/05/24 release ascorbic acid (vitamin C) 500 mg 500 mg PO DAILY 03/03/24 04/05/24 tablet (Vitamin C) diphenhydramine HCl 25 mg capsule 25 mg PO Q12H PRN Allergy Symptoms 03/03/24 04/05/24 (Banophen) duloxetine 60 mg capsule,delayed 60 mg PO DAILY MAJOR DEPRESSIVE 03/03/24 04/05/24 release DISORDER fluticasone propionate 50 1 spray intranasal Q12H PRN 03/03/24 04/05/24 mcg/actuation nasal ALLERGIES spray,suspension furosemide 40 mg tablet 40 mg PO QAM 03/03/24 04/05/24 lidocaine 5 % topical patch 1 patch topical Q12H PRN Pain 03/03/24 04/05/24 lisinopril 40 mg tablet 40 mg PO DAILY 03/03/24 04/05/24 olanzapine 2.5 mg tablet 2.5 mg PO BEDTIME 03/03/24 04/05/24 ondansetron HCl 4 mg tablet 4 mg PO Q6H PRN Nausea And Vomiting 03/03/24 04/05/24 Previous Rx's Medication Instructions Recorded allopurinol 300 mg tablet 300 mg PO DAILY #90 tabs 05/03/20 potassium chloride 10 mEq 10 meq PO DAILY #30 caps 09/12/22 capsule,extended release 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 meter,continuous #1 ea 03/12/23 (Dexcom G7 Television Reporter) 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 sensor (Dexcom G7 #1 ea 03/12/23 Sensor device) tramadol 50 mg tablet 50 mg PO Q6H PRN pain #120 tabs 11/18/23 Allergies Allergy/AdvReac Type Severity Reaction Status Date / Time clarithromycin [From Biaxin] Allergy nausea Verified 04/05/24 23:11 clindamycin Allergy shock Verified 04/05/24 23:11 diclofenac Allergy swelling Verified 04/05/24 23:11 enalapril Allergy unknown Verified 04/05/24 23:11 ketorolac [From Toradol] Allergy short of Verified 04/05/24 23:11 breath losartan [From Cozaar] Allergy shock Verified 04/05/24 23:11 nifedipine [From Procardia] Allergy hives Verified 04/05/24 23:11 pregabalin [From Lyrica] Allergy unknown Verified 04/05/24 23:11 Sulfa (Sulfonamide Allergy anaphylasix Verified 04/05/24 23:11 Antibiotics) Review of Systems 2 Const: Denies: fever(s), chills, body aches or change in appetite ENMT: Denies: throat pain or dental pain Card: Denies: chest pain Resp: Denies: dyspnea GI: Denies: abdominal pain, nausea, vomiting or diarrhea Musc: Denies: neck pain or back pain Skin/Breast: Denies: rash Neuro: Denies: headache(s) Psych: Reports: mood swings PFSH ED 2 PFSH: Medical History Paranoid Expressive aphasia Altered mental status Anxiety and depression Lives in assisted living facility Rotator cuff tear, right Diabetes mellitus insulin dependent Essential (primary) hypertension Depression due to cerebrovascular accident (CVA) Expressive aphasia Hypomagnesemia Bilateral pneumonia Hyponatremia Hyperkalemia DELORIS (acute kidney injury) Right humeral fracture Metabolic encephalopathy Resolved Acute delirium Resolved Pneumonia due to COVID-19 virus Resolved Poor social situation Multinodular thyroid Acute embolic stroke Recurrent falls Resolved History of CVA (cerebrovascular accident) Acute hypersomnolence disorder LEROY on CPAP Essential hypertension Wernicke dysphasia Diabetes mellitus with neuropathy Mixed hyperlipidemia Surgical History History of nasal sinusotomy History of cholecystectomy History of tonsillectomy History of repair of rotator cuff History of hysterectomy for indication other than malignancy History of bursectomy Hx of adenoidectomy Status post anal fissurectomy History of colonoscopy Family History Mother CAD (coronary artery disease) Other Asthma Cancer Diabetes Heart disease Hypertension Stroke Social History Smoking and tobacco/nicotine status: former use of tobacco/nicotine Alcohol intake: current Alcohol intake frequency: few times a month Substance/Drug Use: never Physical Exam 2 Const: COMMON NORMALS: no acute distress and healthy appearing HENMT: COMMON NORMALS: normocephalic and atraumatic HEAD & SCALP: n ormocephalic and atraumatic Eye: COMMON NORMALS: Equal, round and reactive pupils present and EOMs intact bilaterally PUPIL: Yes Equal, round and reactive pupils present Neck/C-Spine: COMMON NORMALS: full ROM and supple Chest: COMMONS NORMALS: normal inspection of the chest and normal palpation of entire chest wall Resp: COMMON NORMALS: normal respiratory effort, No retractions, No use of accessory muscles and clear to auscultation bilaterally AUSCULTATION: clear to auscultation bilaterally Cardio: COMMON NORMALS: regular rate, regular rhythm and No murmurs present (Cardio) RATE: regular rate RHYTHM: regular rhythm GI: COMMON NORMALS: Normal to inspection, nondistended, normoactive bowel sounds present, Soft to palpation, non-tender and no masses PALPATION: Yes Soft to palpation Extremity: COMMON NORMALS: normal to inspection and full ROM Neuro: COMMON NORMALS: moves all extremities and no focal motor deficits Psych: COMMON NORMALS: mental status grossly normal and Normal thought process present THOUGHT PROCESS: Normal thought process present OTHER: Patient is agitated not answering all my questions Skin: COMMON NORMALS: no rashes or lesions noted and no wounds GENERAL SKIN EXAM: no rashes or lesions noted Course 2 Vital Signs: Vital signs: Vital Signs Temperature 98.1 F 07/15/24 16:58 Pulse Rate 62 07/15/24 16:58 Respiratory Rate 18 07/15/24 16:58 Blood Pressure 219/95 07/15/24 16:58 Pulse Oximetry 99 07/15/24 16:58 Oxygen Delivery Me thod Room Air 07/15/24 16:58 [facility] - Psych Medical Decision Making Patient presents here from [facility] she has been having anger outburst while here her x-ray does show pulmonary edema she has an elevated BNP she also has some EKG changes no signs of STEMI. She has had no chest pain here we will admit medically to workup her pulm edema and EKG changes I did speak to psychiatry who is consulted Medical Records I reviewed the patient's medical records. Lab Data I reviewed the patient's lab results. 07/15/24 17:10 07/15/24 17:10 Radiology Impressions Chest X-Ray 07/15/24 16:50 IMPRESSION: Bilateral lung opacities raising concern for pulmonary edema or infection. Head CT 07/15/24 16:50 IMPRESSION: No acute intracranial findings. Laboratory Results WBC 10.36 10^3/uL (3.29-11.43) 07/15/24 17:10 RBC 3.39 10^6/uL (3.85-5.65) L 07/15/24 17:10 Hgb 9.00 g/dL (11.27-16.99) L 07/15/24 17:10 Hct 30.3 % (36-47) L 07/15/24 17:10 MCV 89.4 fl (85-98) 07/15/24 17:10 MCH 26.5 pg (27-33) L 07/15/24 17:10 MCHC 29.7 g/dL (30-55) L 07/15/24 17:10 RDW 15.9 % (12.1-15.1) H 07/15/24 17:10 Plt Count 242 10^3/cmm (157-399) 07/15/24 17:10 MPV 9.7 fL (7.4-10.4) 07/15/24 17:10 Neut % (Auto) 79.0 % 07/15/24 17:10 Lymph % (Auto) 9.2 % 07/15/24 17:10 [place] % (Auto) 6.9 % 07/15/24 17:10 Eos % (Auto) 3.9 % 07/15/24 17:10 Baso % (Auto) 0.6 % 07/15/24 17:10 Neut # (Auto) 8.20 10^3/uL (1.8-7.7) H 07/15/24 17:10 Lymph # (Auto) 1.0 10^3/uL (0.8-4.8) 07/15/24 17:10 [place] # (Auto) 0.7 10^3/uL (0.2-0.9) 07/15/24 17:10 Eos # (Auto) 0.4 10^3/uL (0.0-0.8) 07/15/24 17:10 Baso # (Auto) 0.1 10^3/uL (0.0-0.1) 07/15/24 17:10 Nucleated RBC % (auto) 0 % 07/15/24 17:10 Nucleated RBCs # 0.0 /100WBC 07/15/24 17:10 Sodium 143 mmol/L (136-145) 07/15/24 17:10 Potassium 5.0 mmol/L (3.5-5.1) 07/15/24 17:10 Chloride 109 mmol/L (98-107) H 07/15/24 17:10 Carbon Dioxide 24 mmol/L (22-29) 07/15/24 17:10 Anion Gap 15.0 (5-19) 07/15/24 17:10 BUN 51 mg/dL (8-23) H 07/15/24 17:10 Creatinine 2.6 mg/dL (0.5-0.9) H 07/15/24 17:10 GFR Calculation 18.5 mL/min (90-130) L 07/15/24 17:10 Glucose 252 mg/dL (65-115) H 07/15/24 17:10 Calculated Osmolality 318 mOsm/kg (285-295) H 07/15/24 17:10 Calcium 9.1 mg/dL (8.5-10.5) 07/15/24 17:10 Total Bilirubin 0.3 mg/dL (0.15-1.2) 07/15/24 17:10 AST 16 U/L (0-32) 07/15/24 17:10 ALT 15 U/L (0-33) 07/15/24 17:10 Alkaline Phosphatase 123 U/L (35-105) H 07/15/24 17:10 Troponin T Baseline 66 ng/L (0-10) H 07/15/24 17:10 NT-Pro-B Natriuret Pep 2977 pg/mL (0-125) H 07/15/24 17:10 Total Protein 5.9 g/dL (6.6-8.7) L 07/15/24 17:10 Albumin 3.5 g/dL (3.5-5.2) 07/15/24 17:10 Globulin 2.4 g/dL (1.3-4.6) 07/15/24 17:10 TSH 3.51 uIU/mL (0.27-4.20) 07/15/24 17:10 Urine Color Yellow (Yellow) 07/15/24 18:35 Urine Appearance Clear (CLEAR) 07/15/24 18:35 Urine pH 6.5 (5-7) 07/15/24 18:35 Ur Specific Hughes 1.017 (1.005-1.030) 07/15/24 18:35 Urine Protein 4+ (Negative) A 07/15/24 18:35 Urine Glucose (UA) Trace (Normal) H 07/15/24 18:35 Urine Ketones Negative (Negative) 07/15/24 18:35 Urine Blood 1+ (Negative) A 07/15/24 18:35 Urine Nitrate Negative (Negative) 07/15/24 18:35 Urine Bilirubin Negative (Negative) 07/15/24 18:35 Urine Urobilinogen 1.0 mg/dL (Negative) 07/15/24 18:35 Ur Leukocyte Esterase Negative (Negative) 07/15/24 18:35 Urine RBC 0-2 /hpf (0-2) 07/15/24 18:35 Urine WBC 0-5 /hpf (0-5) 07/15/24 18:35 Ur Squamous Epith Cells 0-5 /hpf (0-5) 07/15/24 18:35 Amorphous Sediment Not Reportable 07/15/24 18:35 Urine Bacteria None /hpf (NONE) 07/15/24 18:35 Hyaline Casts 2.87 /lpf 07/15/24 18:35 Salicylates 0.7 mg/dL (3-10) L 07/15/24 17:10 Urine Opiates Screen Negative ng/mL (Negative) 07/15/24 18:35 Acetaminophen < 5.0 ug/mL (10-30) L 07/15/24 17:10 Ur Barbiturates Screen Negative ng/mL (Negative) 07/15/24 18:35 Ur Phencyclidine Scrn Negative ng/mL (Negative) 07/15/24 18:35 Ur Amphetamines Screen Negative ng/mL (Negative) 07/15/24 18:35 U Benzodiazepines Scrn Negative ng/mL (Negative) 07/15/24 18:35 Urine Cocaine Screen Negative ng/mL (Negative) 07/15/24 18:35 U Marijuana (THC) Screen Negative ng/mL (Negative) 07/15/24 18:35 Ethyl Alcohol < 10 mg/dL (0-10) 07/15/24 17:10 All radiology interpretation(s) finalized by discharge Discharge Plan Discharge Patient Disposition: Admitted As Inpatient Clinical Impression: Outbursts of anger, Pulmonary edema Condition: Stable Prescriptions: No Action (DME) Dexcom G7 Sensor Device See Rx Instructions .Route Qty: 1 0RF Rx Instructions: As directed (DME) Dexcom G7 Television Reporter Misc See Rx Instructions .Route Qty: 1 6RF Rx Instructions: As directed allopurinol 300 mg tablet 300 mg PO DAILY Qty: 90 0RF potassium chloride 10 mEq capsule, extended release 10 meq PO DAILY Qty: 30 11RF tramadol 50 mg tablet 50 mg PO Q6H PRN (Reason: pain) Qty: 120 5RF atorvastatin 40 mg tablet 40 mg PO DAILY cetirizine 10 mg Tablet 10 mg PO DAILY magnesium hydroxide [Milk of Magnesia] 400 mg/5 mL Suspension 30 ml PO DAILY PRN (Reason: Constipation) calcium carbonate 500 mg calcium (1,250 mg) Tablet,Chewable 500 mg PO Q8H PRN (Reason: gastro-esophageal reflux) insulin glargine [Lantus Solostar U-100 Insulin] 100 unit/mL (3 mL) insulin pen 33 unit SUBCUT BID acetaminophen [Tylenol] 325 mg Tablet 650 mg PO Q6H PRN (Reason: PAIN OR ELEVATED TEMP) omeprazole 20 mg Capsule,Delayed Release(Dr/Ec) 20 mg PO DAILY insulin aspart U-100 [Novolog FlexPen U-100 Insulin] 100 unit/mL (3 mL) insulin pen 15 unit SUBCUT TID Rx Instructions: sliding scale before meals tid 150-200=4 units 201-250=6 units 251-300=10 units 301-400=15 units clopidogrel 75 mg tablet 75 mg PO DAILY metoprolol tartrate 25 mg tablet 37.5 mg PO BID furosemide 40 mg tablet 40 mg PO QAM ondansetron HCl 4 mg tablet 4 mg PO Q6H PRN (Reason: Nausea And Vomiting) olanzapine 2.5 mg tablet 2.5 mg PO BEDTIME ascorbic acid (vitamin C) [Vitamin C] 500 mg tablet 500 mg PO DAILY diphenhydramine HCl [Banophen] 25 mg Capsule 25 mg PO Q12H PRN (Reason: Allergy Symptoms) lidocaine 5 % Adhesive Patch,Medicated 1 patch TOPICAL Q12H PRN (Reason: Pain) Rx Instructions: leave on most painful area for up to 12 hrs lisinopril 40 mg tablet 40 mg PO DAILY fluticasone propionate 50 mcg/actuation spray,suspension 1 spray INTRANASAL Q12H PRN (Reason: ALLERGIES) duloxetine 60 mg capsule,delayed release(DR/EC) 60 mg PO DAILY Referrals: Benigno Jennings DO [Primary Care Provider] - Coding Level of Care Code ED Interactive Graphic Designer for Avery Rocha
[2024-07-15 17:16] LABS: Basophils # 0.1 10^3/uL (0.0-0.1); Basophils % 0.6 %; Eosinophils # 0.4 10^3/uL (0.0-0.8); Eosinophils % 3.9 %; Hematocrit 30.3 % (36-47); Lymphocytes % 9.2 %; Mean Corpuscular HGB Conc 29.7 g/dL (30-55); Mean Corpuscular Hemoglobin 26.5 pg (27-33); Mean Corpuscular Volume 89.4 fl (85-98); Mean Platelet Volume 9.7 fL (7.4-10.4); Monocytes # 0.7 10^3/uL (0.2-0.9); Monocytes % 6.9 %; Nucleated Red Blood Cells % 0 %; Platelet Count 242 10^3/cmm (157-399); Red Blood Count 3.39 10^6/uL (3.85-5.65); Red Cell Distribution Width 15.9 % (12.1-15.1); White Blood Count 10.36 10^3/uL (3.29-11.43)
[2024-07-15 17:47] LABS: Alanine Aminotransferase 15 U/L (0-33); Albumin Level 3.5 g/dL (3.5-5.2); Alkaline Phosphatase 123 U/L (35-105); Aspartate Amino Transferase 16 U/L (0-32); Blood Urea Nitrogen 51 mg/dL (8-23); Calcium 9.1 mg/dL (8.5-10.5); Carbon Dioxide 24 mmol/L (22-29); Chloride 109 mmol/L (98-107); Globulin 2.4 g/dL (1.3-4.6); Glomerular Filtration Rate 18.5 mL/min (90-130); Glucose 252 mg/dL (65-115); Osmolality Calculated 318 mOsm/kg (285-295); Salicylate 0.7 mg/dL (3-10); Sodium 143 mmol/L (136-145); Thyroid Stimulating Hormone 3.51 uIU/mL (0.27-4.20); Total Bilirubin 0.3 mg/dL (0.15-1.2); Total Protein 5.9 g/dL (6.6-8.7)
[2024-07-15 17:54] LABS: Acetaminophen < 5.0 ug/mL (10-30); Alcohol Level < 10 mg/dL (0-10)
[2024-07-15 18:09] LABS: NT Pro B Type Natriuretic Pept 2977 pg/mL (0-125)
[2024-07-15] MEDS: FUROsemide 10 mg/mL SDV 10mL 60 MG IVP (18:41)
[2024-07-15] MEDS: aspirin 81 mg Chew Tablet 324 MG PO (18:42)
[2024-07-15 18:54] LABS: Bilirubin Urine Negative (Negative); Blood Urine 1+ (Negative); Glucose Urine UA Trace (Normal); Ketones Urine Negative (Negative); Leukocyte Esterase Urine Negative (Negative); Nitrate Urine Negative (Negative); Protein Urine 4+ (Negative); Specific Gravity, Urine 1.017 (1.005-1.030); Urine Appearance Clear (CLEAR); Urine Color Yellow (Yellow); pH Urine 6.5 (5-7)
--- NOTE | 2024-07-15 18:57 | PC.NURSE ---
Attempted to read 96 hour hold rights to patient. Patient appears to be confused at this time. This nurse did go over 96 hour hold rights with patient and copy of rights given to patient.
[2024-07-15 19:01] LABS: Amphetamines Screen Urine Negative (Negative); Barbiturates Screen Urine Negative (Negative); Benzodiazepines Screen Urine Negative (Negative); Cocaine Screen Urine Negative (Negative); Opiate Screen Urine Negative (Negative); PCP Screen Urine Negative (Negative); THC Screen Urine Negative (Negative)
[2024-07-15 19:03] LABS: Troponin(5th) Baseline 66 ng/L (0-10)
[2024-07-15 19:05] LABS: Add Urine Microscopic? YES; RBC Urine 0-2 /hpf (0-2)
[2024-07-15 19:06] LABS: Hyaline Casts Urine 2.87 /lpf; Squamous Epithelial Cell Urine 0-5 /hpf (0-5); WBC Urine 0-5 /hpf (0-5)
--- NOTE | 2024-07-15 19:08 | ECG_ITS ---
[facility] Date: 2024-07-15 Pat Name: Hilda Wallace Department: Room: Gender: Female Densitometer Reader: : 1960 Requested By: Laure Atkinson Order Number: [id number] Kyler MD: Miguel Zimmer M.D. Measurements Intervals [place] Rate: 62 P: 44 AK: 221 QRS: -42 QRSD: 150 T: 80 QT: 425 QTc: 432 Interpretive Statements SINUS RHYTHM WITH FIRST DEGREE AV BLOCK LEFT AXIS DEVIATION [QRS AXIS < -30] INTRAVENTRICULAR CONDUCTION DELAY [130+ ms QRS DURATION] LATERAL MYOCARDIAL INFARCTION , OF INDETERMINATE AGE [40+ ms Q WAVE AND/OR ST/T ABNORMALITY IN I/aVL/V5/V6] Compared to ECG 07/15/2024 18:34:44 Left ventricular hypertrophy no longer present ST (T wave) deviation no longer present Myocardial infarct finding still present Electronically Signed On 07-18-2024 18:57:04 MUSEUM GUIDE by Miguel Zimmer M.D. [email or web address]
[2024-07-15 19:25] LABS: Covid PCR NEGATIVE (Negative); Influenza A NEGATIVE (Negative); Influenza B NEGATIVE (Negative); Respiratory Syncytial Virus Ce NEGATIVE (Negative)
[2024-07-15 19:33] VITALS: BP 222/70; PULSE 31; RESP 18; O2SAT 97
--- NOTE | 2024-07-15 20:39 | ECG_ITS ---
[facility] Date: 2024-[facility]15 Pat Name: Hilda Wallace Department: Room: 102 Gender: Female Editor In Chief: : 1960 Requested By: Laure Atkinson Order Number: [id number] Kyler MD: Miguel Zimmer M.D. Measurements Intervals [place] Rate: 63 P: 0 NV: 0 QRS: -49 QRSD: 141 T: 97 QT: 435 QTc: 449 Interpretive Statements SUPRAVENTRICULAR RHYTHM RIGHT BUNDLE BRANCH BLOCK [120+ ms QRS DURATION, UPRIGHT V1, 40+ ms S IN I/aVL/V4/V5/V6] LEFT ANTERIOR FASCICULAR BLOCK [QRS AXIS <= -45, QR IN I, RS IN II] POSSIBLE LEFT VENTRICULAR HYPERTROPHY [VOLTAGE CRITERIA PLUS LAE OR QRS WIDENING] Compared to ECG 07/15/2024 19:08:41 Sinus rhythm no longer present First degree AV block no longer present Left-axis deviation no longer present Intraventricular conduction delay no longer present Myocardial infarct finding no longer present Electronically Signed On 07-18-2024 19:13:36 BOTANY PROFESSOR by Miguel Zimmer M.D. [email or web address]
[2024-07-15 21:06] VITALS: BP 198/70; PULSE 63; RESP 17; O2SAT 96
[2024-07-15 21:15] LABS: Troponin 5 2HR 59.95 ng/L (0-10)
[2024-07-15 21:16] LABS: Troponin 5 2HR Delta -6.05 ABS# (0-10)
[2024-07-15 21:18] VITALS: BP 222/70; PULSE 63; RESP 17; O2SAT 96
--- NOTE | 2024-07-15 22:00 | PM.HP ---
Providers/Chief Complaint Admitting Physician: Patel Jones MD Primary Care Provider: Benigno Jennings DO Chief Complaint: behav. ams History of Present Illness Hilda Wallace is a 64 year old female with known h/o anxiety with depression, paranoia, diabetes mellitus, CVA, and Warnicke's dysphasia, and dysphasia secondary to CVA. She is tangential in her thinking and conversation. She will correctly answer her name, knows that she lives in a intermediate however then goes on to have paranoid thoughts such as assisted living staff not helping her with ADLs, not giving her medications correctly, not listening to her complaints. It appears she had been aggressive to the intermediate staff today and therefore she was sent into the emergency room for [facility] psych assessment. In reviewing old records dating back to March 2024 in February 2024, it appears patient has a history of hallucinations and paranoid behavior. In March 2024 on one of the ER visit she needed to be given ketamine and Ativan to be calm down. She was evaluated by psychiatry in the emergency room and was thought not to need a Jazmine psych admission and was therefore discharged back to the facility. She sent back today for similar complaints. Patient's main complaint today is that of lower extremity pain. She states this is bilateral. She does allow me to examine her legs and is noted to have edema bilaterally with some excoriations and shallow ulcerations over the dorsal aspect of her toes. She is unable to give tell me if this was related to trauma. She tells me that she receives water pills however thinks that staff has not been giving it to her so that they do not have to assist her with going to the bathroom. She then goes on with the conversation, though the words make sense they are not in any specific order and do not relay any pertinent information. Review of Systems General: Reports: ROS unobtainable due to medical condition Medications/Allergies Home Medications Medication Instructions Recorded Confirmed Last Taken Type allopurinol 300 mg tablet 300 mg PO DAILY #90 tabs 05/03/20 04/05/24 03/03/24 Rx clopidogrel 75 mg tablet 75 mg PO DAILY 07/08/20 04/05/24 03/03/24 History metoprolol tartrate 25 mg tablet 37.5 mg PO BID 07/08/20 04/05/24 03/03/24 History acetaminophen 325 mg tablet 650 mg PO Q6H PRN PAIN OR ELEVATED 10/03/21 04/05/24 01/15/24 History (Tylenol) TEMP atorvastatin 40 mg tablet 40 mg PO DAILY 10/03/21 04/05/24 03/02/24 History calcium carbonate 500 mg PO Q8H PRN 10/03/21 04/05/24 03/02/24 History gastro-esophageal reflux cetirizine 10 mg tablet 10 mg PO DAILY 10/03/21 04/05/24 03/03/24 History insulin aspart U-100 100 unit/mL 15 unit SUBCUT TID 10/03/21 04/05/24 03/03/24 History (3 mL) subcutaneous pen (Novolog FlexPen U-100 Insulin aspart) insulin glargine 100 unit/mL (3 33 unit SUBCUT BID 10/03/21 04/05/24 03/03/24 History mL) subcutaneous pen (Lantus Solostar U-100 Insulin) magnesium hydroxide 400 mg/5 mL 30 ml PO DAILY PRN Constipation 10/03/21 04/05/24 Unknown History oral suspension (Milk of Magnesia) omeprazole 20 mg capsule,delayed 20 mg PO DAILY 10/03/21 04/05/24 03/03/24 History release potassium chloride 10 mEq 10 meq PO DAILY #30 caps 09/12/22 04/05/24 03/03/24 Rx capsule,extended release 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 meter,continuous #1 ea 03/12/23 04/05/24 Unknown Rx (Dexcom G7 Emergency Care Attendant) 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 sensor (Dexcom G7 #1 ea 03/12/23 04/05/24 Unknown Rx Sensor device) tramadol 50 mg tablet 50 mg PO Q6H PRN pain #120 tabs 11/18/23 04/05/24 03/02/24 Rx ascorbic acid (vitamin C) 500 mg 500 mg PO DAILY 03/03/24 04/05/24 03/03/24 History tablet (Vitamin C) diphenhydramine HCl 25 mg capsule 25 mg PO Q12H PRN Allergy Symptoms 03/03/24 04/05/24 03/02/24 History (Banophen) duloxetine 60 mg capsule,delayed 60 mg PO DAILY MAJOR DEPRESSIVE 03/03/24 04/05/24 03/03/24 History release DISORDER fluticasone propionate 50 1 spray intranasal Q12H PRN 03/03/24 04/05/24 Unknown History mcg/actuation nasal ALLERGIES spray,suspension furosemide 40 mg tablet 40 mg PO QAM 03/03/24 04/05/24 03/03/24 History lidocaine 5 % topical patch 1 patch topical Q12H PRN Pain 03/03/24 04/05/24 Unknown History lisinopril 40 mg tablet 40 mg PO DAILY 03/03/24 04/05/24 03/03/24 History olanzapine 2.5 mg tablet 2.5 mg PO BEDTIME 03/03/24 04/05/24 03/02/24 History ondansetron HCl 4 mg tablet 4 mg PO Q6H PRN Nausea And Vomiting 03/03/24 04/05/24 Unknown History Allergies Allergy/AdvReac Type Severity Reaction Status Date / Time clarithromycin [From Biaxin] Allergy nausea Verified 04/05/24 23:11 clindamycin Allergy shock Verified 04/05/24 23:11 diclofenac Allergy swelling Verified 04/05/24 23:11 enalapril Allergy unknown Verified 04/05/24 23:11 ketorolac [From Toradol] Allergy short of Verified 04/05/24 23:11 breath losartan [From Cozaar] Allergy shock Verified 04/05/24 23:11 nifedipine [From Procardia] Allergy hives Verified 04/05/24 23:11 pregabalin [From Lyrica] Allergy unknown Verified 04/05/24 23:11 Sulfa (Sulfonamide Allergy anaphylasix Verified 04/05/24 23:11 Antibiotics) PFSH Acute PFSH: Medical History (Updated 07/16/24 @ 06:20 by Rain Haque MD) Paranoid Expressive aphasia Altered mental status Anxiety and depression Lives in assisted living facility Rotator cuff tear, right Diabetes mellitus insulin dependent Essential (primary) hypertension Depression due to cerebrovascular accident (CVA) Expressive aphasia Hypomagnesemia Bilateral pneumonia Hyponatremia Hyperkalemia DELORIS (acute kidney injury) Right humeral fracture Metabolic encephalopathy Resolved Acute delirium Resolved Pneumonia due to COVID-19 virus Resolved Poor social situation Multinodular thyroid Acute embolic stroke Recurrent falls Resolved History of CVA (cerebrovascular accident) Acute hypersomnolence disorder LEROY on CPAP Essential hypertension Wernicke dysphasia Diabetes mellitus with neuropathy Mixed hyperlipidemia Surgical History History of nasal sinusotomy History of cholecystectomy History of tonsillectomy History of repair of rotator cuff History of hysterectomy for indication other than malignancy History of bursectomy Hx of adenoidectomy Status post anal fissurectomy History of colonoscopy Family History Mother CAD (coronary artery disease) Other Asthma Cancer Diabetes Heart disease Hypertension Stroke Social History Smoking and tobacco/nicotine status: former use of tobacco/nicotine Alcohol intake: current Alcohol intake frequency: few times a month Substance/Drug Use: never Vitals/I&O/Wt Last Vital Signs Temp 98.2 F 07/15/24 22:51 Pulse 70 07/15/24 22:51 Resp 25 H 07/15/24 22:51 BP 92/68 07/15/24 22:51 Pulse Ox 100 07/15/24 22:51 O2 Del Method Room Air 07/15/24 22:51 Physical Exam Narrative: General: No acute distress, AO x1-2 HEENT: PERRLA, pupils bilaterally equal and reactive, pallors not present Chest: Normal vesicular breath sounds, no added sounds, equal good air entry bilaterally CVS: S1-S2 regular, no murmurs, no tachycardia, no gallops, no rubs Abdomen: Soft, nontender, no organomegaly, bowel sounds present Neuro: No focal deficits, apahasia+ Extremities: B/L LE pitting edema Data 07/16/24 00:20 07/16/24 00:20 Other Labs: Radiology Impressions Chest X-Ray 07/15/24 16:50 IMPRESSION: Bilateral lung opacities raising concern for pulmonary edema or infection. Head CT 07/15/24 16:50 IMPRESSION: No acute intracranial findings. Laboratory Results WBC 10.36 10^3/uL (3.29-11.43) 07/15/24 17:10 RBC 3.39 10^6/uL (3.85-5.65) L 07/15/24 17:10 Hgb 9.00 g/dL (11.27-16.99) L 07/15/24 17:10 Hct 30.3 % (36-47) L 07/15/24 17:10 MCV 89.4 fl (85-98) 07/15/24 17:10 MCH 26.5 pg (27-33) L 07/15/24 17:10 MCHC 29.7 g/dL (30-55) L 07/15/24 17:10 RDW 15.9 % (12.1-15.1) H 07/15/24 17:10 Plt Count 242 10^3/cmm (157-399) 07/15/24 17:10 MPV 9.7 fL (7.4-10.4) 07/15/24 17:10 Neut % (Auto) 79.0 % 07/15/24 17:10 Lymph % (Auto) 9.2 % 07/15/24 17:10 [place] % (Auto) 6.9 % 07/15/24 17:10 Eos % (Auto) 3.9 % 07/15/24 17:10 Baso % (Auto) 0.6 % 07/15/24 17:10 Neut # (Auto) 8.20 10^3/uL (1.8-7.7) H 07/15/24 17:10 Lymph # (Auto) 1.0 10^3/uL (0.8-4.8) 07/15/24 17:10 [place] # (Auto) 0.7 10^3/uL (0.2-0.9) 07/15/24 17:10 Eos # (Auto) 0.4 10^3/uL (0.0-0.8) 07/15/24 17:10 Baso # (Auto) 0.1 10^3/uL (0.0-0.1) 07/15/24 17:10 Nucleated RBC % (auto) 0 % 07/15/24 17:10 Nucleated RBCs # 0.0 /100WBC 07/15/24 17:10 Sodium 143 mmol/L (136-145) 07/16/24 00:20 Sodium Cancelled 07/16/24 00:20 Potassium Cancelled 07/16/24 00:20 Chloride 107 mmol/L (98-107) 07/16/24 00:20 Chloride Cancelled 07/16/24 00:20 Carbon Dioxide Cancelled 07/16/24 00:20 Anion Gap Cancelled 07/16/24 00:20 BUN Cancelled 07/16/24 00:20 Creatinine Cancelled 07/16/24 00:20 GFR Calculation Cancelled 07/16/24 00:20 Glucose Cancelled 07/16/24 00:20 Calculated Osmolality Cancelled 07/16/24 00:20 Calcium 9.0 mg/dL (8.5-10.5) 07/16/24 00:20 Calcium Cancelled 07/16/24 00:20 Phosphorus 4.0 mg/dL (2.5-4.5) 07/16/24 00:20 Phosphorus Cancelled 07/16/24 00:20 Magnesium 1.8 mg/dL (1.7-2.3) 07/16/24 00:20 Magnesium Cancelled 07/16/24 00:20 Total Bilirubin 0.5 mg/dL (0.15-1.2) 07/16/24 00:20 Total Bilirubin Cancelled 07/16/24 00:20 AST Cancelled 07/16/24 00:20 ALT 13 U/L (0-33) 07/16/24 00:20 ALT Cancelled 07/16/24 00:20 Alkaline Phosphatase Cancelled 07/16/24 00:20 Troponin T Baseline 66 ng/L (0-10) H 07/15/24 17:10 Troponin T 120 Minute 59.95 ng/L (0-10) H 07/15/24 20:45 Delta Troponin T -6.05 ABS# (0-10) L 07/15/24 20:45 NT-Pro-B Natriuret Pep 2977 pg/mL (0-125) H 07/15/24 17:10 Total Protein Cancelled 07/16/24 00:20 Albumin 3.7 g/dL (3.5-5.2) 07/16/24 00:20 Albumin Cancelled 07/16/24 00:20 Globulin 2.2 g/dL (1.3-4.6) 07/16/24 00:20 Globulin Cancelled 07/16/24 00:20 TSH 3.51 uIU/mL (0.27-4.20) 07/15/24 17:10 Urine Color Yellow (Yellow) 07/15/24 18:35 Urine Appearance Clear (CLEAR) 07/15/24 18:35 Urine pH 6.5 (5-7) 07/15/24 18:35 Ur Specific [place] 1.017 (1.005-1.030) 07/15/24 18:35 Urine Protein 4+ (Negative) A 07/15/24 18:35 Urine Glucose (UA) Trace (Normal) H 07/15/24 18:35 Urine Ketones Negative (Negative) 07/15/24 18:35 Urine Blood 1+ (Negative) A 07/15/24 18:35 Urine Nitrate Negative (Negative) 07/15/24 18:35 Urine Bilirubin Negative (Negative) 07/15/24 18:35 Urine Urobilinogen 1.0 mg/dL (Negative) 07/15/24 18:35 Ur Leukocyte Esterase Negative (Negative) 07/15/24 18:35 Urine RBC 0-2 /hpf (0-2) 07/15/24 18:35 Urine WBC 0-5 /hpf (0-5) 07/15/24 18:35 Ur Squamous Epith Cells 0-5 /hpf (0-5) 07/15/24 18:35 Amorphous Sediment Not Reportable 07/15/24 18:35 Urine Bacteria None /hpf (NONE) 07/15/24 18:35 Hyaline Casts 2.87 /lpf 07/15/24 18:35 Salicylates 0.7 mg/dL (3-10) L 07/15/24 17:10 Urine Opiates Screen Negative ng/mL (Negative) 07/15/24 18:35 Acetaminophen < 5.0 ug/mL (10-30) L 07/15/24 17:10 Ur Barbiturates Screen Negative ng/mL (Negative) 07/15/24 18:35 Ur Phencyclidine Scrn Negative ng/mL (Negative) 07/15/24 18:35 Ur Amphetamines Screen Negative ng/mL (Negative) 07/15/24 18:35 U Benzodiazepines Scrn Negative ng/mL (Negative) 07/15/24 18:35 Urine Cocaine Screen Negative ng/mL (Negative) 07/15/24 18:35 U Marijuana (THC) Screen Negative ng/mL (Negative) 07/15/24 18:35 Ethyl Alcohol < 10 mg/dL (0-10) 07/15/24 17:10 Coronavirus (PCR) Negative (Negative) 07/15/24 18:35 Influenza A (PCR) Negative (Negative) 07/15/24 18:35 Influenza Type B (PCR) Negative (Negative) 07/15/24 18:35 RSV (PCR) Negative (Negative) 07/15/24 18:35 A&P Assessment and plan (1) CHF (congestive heart failure): Patient has clinical signs of volume overload with bilateral lower extremity edema, chest x-ray showing bilateral infiltrates which appear to be pulmonary edema, elevated BNP. She states she takes water pill at home, dose listed as 40 mg p.o. every day. She states she has not been getting it recently but I am unsure about the reliability of her history. Given signs of clinical fluid overload, start Lasix 40 mg IV every 12 hours. Declines placement of a Kent catheter for accurate MARICHUY check. Will monitor clinically for improving edema Suspect cause to be CHF, I am unable to comment at this time if this is acute or chronic systolic or diastolic as there is no echocardiogram on file. Will obtain echocardiogram today. Baseline troponin elevated at 63, 2 hours at 59, 6 hours at 64 with negative delta at 2 and 6 hours. Patient denies any chest pain EKG showing ST depression in leads I and aVL, intraventricular conduction delay May need a stress test when volume optimized currently saturating well on RA check echocardiogram (2) Insulin dependent type 2 diabetes mellitus: Insulin Lantus 15 u BID and sliding scale (3) DELORIS (acute kidney injury): DELORIS on CKD. Currently creatinine at 2.6, previously this appears to have ranged between 1.2-1.9. Check bladder scan, if retaining will need placement of Kent catheter. Check renal ultrasound for any obstruction Patient denies placement of a Kent catheter currently. Hold any nephrotoxic medications. Attestations Medical Necessity Statement*: > 2 midnight stay is anticipated for IV diuresis, elevated troponins warranting further evaluation, psychiatry assessment Coding Level of Care Code Acute Code for Chg Fwd High MDM includes number and complexity of problems actively addressed during encounter, amount and/or complexity of data reviewed/ordered and described risk of complication, morbidity or mortality of management as documented Diagnoses CHF (congestive heart failure) I50.9 Insulin dependent type 2 diabetes mellitus E11.9; Z79.4 DELORIS (acute kidney injury) N17.9
[2024-07-15 22:51] VITALS: BP 92/68; PULSE 70; RESP 25; TEMP 36.8; O2SAT 100
[2024-07-16] VITALS (7 sets, daily range): BP systolic 168–197; BP diastolic 69–78; PULSE 74–97; RESP 22–26; TEMP 36.6–37.1; O2SAT 95–96
--- NOTE | 2024-07-16 00:39 | ECG_ITS ---
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 Measurements Intervals [place] Rate: 63 P: 40 PA: 220 QRS: -37 QRSD: 133 T: 71 QT: 428 QTc: 439 Interpretive Statements SINUS RHYTHM WITH FIRST DEGREE AV BLOCK LEFT AXIS DEVIATION [QRS AXIS < -30] RIGHT BUNDLE BRANCH BLOCK [120+ ms QRS DURATION, UPRIGHT V1, 40+ ms S IN I/aVL/V4/V5/V6] LEFT VENTRICULAR HYPERTROPHY AND ST-T CHANGE [VOLTAGE CRITERIA PLUS ST/T ABNORMALITY] Compared to ECG 07/15/2024 20:39:23 ST (T wave) deviation now present Left anterior fascicular block no longer present T-wave abnormality no longer present Possible ischemia no longer present Electronically Signed On 07-18-2024 19:11:44 LEGAL WRITING PROFESSOR by Miguel Zimmer M.D. [email or web address]
[2024-07-16 00:56] LABS: Basophils # 0.1 10^3/uL (0.0-0.1); Basophils % 0.8 %; Eosinophils # 0.5 10^3/uL (0.0-0.8); Hematocrit 34.7 % (36-47); Lymphocytes # 1.2 10^3/uL (0.8-4.8); Lymphocytes % 9.6 %; Mean Corpuscular HGB Conc 28.8 g/dL (30-55); Mean Corpuscular Hemoglobin 26.7 pg (27-33); Mean Corpuscular Volume 92.5 fl (85-98); Mean Platelet Volume 11.1 fL (7.4-10.4); Monocytes # 0.9 10^3/uL (0.2-0.9); Monocytes % 7.2 %; Neutrophils # 10.09 10^3/uL (1.8-7.7); Nucleated Red Blood Cells % 0 %; Platelet Count 250 10^3/cmm (157-399); Red Blood Count 3.75 10^6/uL (3.85-5.65); Red Cell Distribution Width 15.9 % (12.1-15.1); White Blood Count 12.93 10^3/uL (3.29-11.43)
[2024-07-16 01:02] LABS: Troponin 5 6HR 64.85 ng/L (0-10)
[2024-07-16 01:04] LABS: Alanine Aminotransferase 13 U/L (0-33); Albumin Level 3.7 g/dL (3.5-5.2); Alkaline Phosphatase 144 U/L (35-105); Blood Urea Nitrogen 51 mg/dL (8-23); Carbon Dioxide 21 mmol/L (22-29); Chloride 107 mmol/L (98-107); Globulin 2.2 g/dL (1.3-4.6); Glomerular Filtration Rate 20.3 mL/min (90-130); Glucose 185 mg/dL (65-115); Magnesium 1.8 mg/dL (1.7-2.3); Osmolality Calculated 314 mOsm/kg (285-295); Sodium 143 mmol/L (136-145); Total Bilirubin 0.5 mg/dL (0.15-1.2); Total Protein 5.9 g/dL (6.6-8.7)
[2024-07-16 01:07] LABS: Anion Gap 19.5 (5-19); Aspartate Amino Transferase 17 U/L (0-32); Potassium 4.5 mmol/L (3.5-5.1); Troponin 5 6HR Delta -1.15 ng/L (0-12)
--- NOTE | 2024-07-16 01:08 | US_ITS ---
WS: [id number] RENAL ULTRASOUND HISTORY: assess for hydronephrosis COMPARISON: None available. TECHNIQUE: 2-D and color Doppler imaging of the kidney submitted. Quality of this examination is significantly compromised by body habitus. Right kidney: 11.6 cm x 6.0 cm x 5.6 cm. Cortex: 1.3 cm No hydronephrosis. Masses would be difficult to exclude. Left kidney: 11.7 cm x 6.8 cm x 6.5 cm. Cortex: 1.3 cm No hydronephrosis. Mass would be difficult to exclude. Aorta: Not visualized. Urinary Bladder: Kent catheter present in a nondistended bladder. US/US renal BI* [id number] IMPRESSION: 1. Limited ultrasound evaluation of the kidneys due to body habitus. 2. Kidneys are normal size. No hydronephrosis.
[2024-07-16 01:10] LABS: Procalcitonin 0.13 ng/mL (0-0.5)
[2024-07-16 01:14] LABS: Slide Review Slide Review Perform
[2024-07-16 01:23] LABS: Iron 25 ug/dL (37-145); Percent Saturation 10.7 % (20-50); Total Iron Binding Capacity 233 mcg/dl; Unsaturated Iron Binding 208 ug/dL (112-347)
[2024-07-16 01:28] LABS: Procalcitonin 0.12 ng/mL (0-0.5)
--- NOTE | 2024-07-16 06:00 | USCV_ITS ---
Hilda Wallace Age: 64 Gender: F : 1960 Exam Date: 07/16/2024 16:27 Ordering Phys: Patel Jones MD Technologist: Juan Jose Aranda Exam Location: [facility] [place] Indication: chf BP: 168 / 69 HR: 85 Rhythm: Sinus Technical Quality: Adequate MEASUREMENTS (Male / Female) Normal Values 2D ECHO LV Diastolic Diameter PLAX 4.8 cm 4.2 - 5.9 / 3.9 - 5.3 cm IVS Diastolic Thickness 1.4 cm 0.6 - 1.0 / 0.6 - 0.9 cm IVS Systolic Thickness 1.5 cm LVPW Diastolic Thickness 1.8 cm 0.6 - 1.0 / 0.6 - 0.9 cm LVPW Systolic Thickness 2.0 cm LVOT Diameter 2.0 cm LV Ejection Fraction 2D Teich 67.9 % LV Ejection Fraction MOD 4C 79.8 % LV Ejection Fraction MOD 2C 71.1 % LV Ejection Fraction 2C AL 74.3 % LA Diameter 4.5 cm RA Systolic Volume 4C AL 41.7 ml RA Systolic Volume 4C MOD 42.5 ml LA Sys Volume AL 83.9 cm cubed LA Sys Volume Index AL 34.5 cm cubed/m squared Aorta at Sinotubular Diameter 2.3 cm IVC Diameter 1.9 cm M-MODE LA Ao Ratio MM 1.3 AV Cusp Separation MM 1.4 cm DOPPLER AV Peak Velocity 233.0 cm/s LVOT Peak Velocity 129.0 cm/s AV Area Cont Eq vti 2.2 cm squared AV Area Cont Eq pk 1.7 cm squared MV Peak Velocity 211.0 cm/s MV Area PHT 7.1 cm squared Mitral E to A Ratio 0.9 TV Peak Velocity 305.5 cm/s TR Peak Velocity 430.0 cm/s TR Peak Gradient 74.0 mmHg TR Mean Velocity 342.0 cm/s TR Mean Gradient 50.5 mmHg TR Velocity Time Integral 94.6 cm PV Peak Velocity 152.7 cm/s RV Ejection Time 0.3 s FINDINGS Left Ventricle Left ventricle is normal in size. LV systolic function is normal with EF of 50-55%. No regional wall motion abnormalities. Grade 1 diastolic dysfunction. Right Ventricle Normal in size and function Right Atrium Normal in size Left Atrium Dilated Mitral Valve Moderate to severe mitral annular calcification. Moderate mitral stenosis. Mean gradient across mitral valve is 8. Mild mitral regurgitation. Aortic Valve Aortic valve is thickened. Mild aortic stenosis with aortic valve area of 2.1cm2 and mean gradient of 12mmHg. Tricuspid Valve Mild tricuspid regurgitation. Insufficient TR jet to calculate RVSP. Pulmonic Valve Not well visualized Pericardium Normal Aorta Normal in size IVC Appears to be normal CONCLUSIONS LV systolic function is normal with EF of 50-55%. Grade 1 diatsolic dysfunction Left atrial dilation Moderate mitral stenosis. Mild kathleen regurgitation Mild aortic stenosis with aortic valve area of 2.1cm2 and mean gradient of 12mmHg. Mild tricuspid regurgitation. Compared to prior echocardiogram from 2019, patient now has moderate mitral stenosis and mild aortic stenosis. Also has grade 1 diastolic dysfunction. Miguel Zimmer MD (Electronically Signed) Final Date: 17 July 2024 08:36 S
--- NOTE | 2024-07-16 06:47 | PC.NURSE ---
Patient metal status appears altered, speech was broken, flight of ideas present. Patient becomes agitated when staff asks if they can complete cares.
--- NOTE | 2024-07-16 08:06 | PC.NURSE ---
Patient pleasant however uncooperative. Refusing medications at this time. Patient states (yells), I WANT TO GO HOME NOW. 1:1 at bedside. Will continue to monitor. Did inform Dr Molina of patient's refusal to take medications.
--- NOTE | 2024-07-16 08:49 | PC.NURSE ---
Dr Chung into see patient. Patient continues to want to go home. Patient continues to refuse care. Patient unable to make decisions for self due encephalopathy per MD. Received verbal orders for Haldol 1mg IM and Ativan 1mg IM if Haldol does not work. RBVO
[2024-07-16] MEDS: haloperidol inj 5 mg/mL INJ 1 mL 1 MG IM (08:59)
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
[2024-07-16] MEDS: LORazepam 2 mg/mL INJ 1 mL 1 MG IVP (09:32)
[2024-07-16] MEDS: pantoprazole 40 mg SDV IVP (09:47)
[2024-07-16] MEDS: cefTRIAXone 1,000 mg SDV 1000 MG IVP (09:47)
[2024-07-16] MEDS: AZITHROMYCIN ADD-Vantage 500 MG in 0.9% NaCl ADD-Vantage 250 ML 250 MG IV (09:48)
[2024-07-16] MEDS: FUROsemide 10 mg/mL SDV 4mL 40 MG IVP ×2 (10:17→20:49)
[2024-07-16 10:23] LABS: C Reactive Protein 25.3 mg/L (0.0-4.9)
--- NOTE | 2024-07-16 10:39 | PC.NURSE ---
No PO medications given this am due to patient being uncooperative and aggressive. Patient medicated as documented. Assisted patient from chair to bed x2 assist. Patient is more agreeable and cooperative after sedation orders and allowed this RN to place santiago catheter per MD instructions. Dr Chung is aware of no PO meds this am. 1:1 sitter at bedside. Patient now resting with eyes closed and even respirations. No distress observed at this time. Provided instruction to patient of all activity and indicated understanding. Will reinforce education with each opportunity.
[2024-07-16] MEDS: heparin 5,000 unit/mL INJ 1 mL 5000 UNIT SUBCUT ×2 (10:49→20:49)
[2024-07-16] MEDS: insulin lispro 100 unit/1 mL SUBCUT ×3 (11:29→20:49)
[2024-07-16 11:32] LABS: Glucose Point of Care 300 mg/dL (70-110)
--- NOTE | 2024-07-16 12:01 | ECG_ITS ---
[facility] Test Date: 2024-07-16 Pat Name: Hilda Wallace Department: Room: 102 Gender: Female Cost And Risk Analysis Manager: : 1960 Requested By: Raad Chung Order Number: [id number] Kyler MD: Miguel Zimmer M.D. Measurements Intervals [place] Rate: 55 P: 29 UT: 226 QRS: -49 QRSD: 133 T: 76 QT: 429 QTc: 413 Interpretive Statements SINUS BRADYCARDIA WITH MARKED SINUS ARRHYTHMIA WITH FIRST DEGREE AV BLOCK AND SINUS PAUSE RIGHT BUNDLE BRANCH BLOCK [120+ ms QRS DURATION, UPRIGHT V1, 40+ ms S IN I/aVL/V4/V5/V6] LEFT ANTERIOR FASCICULAR BLOCK [QRS AXIS <= -45, QR IN I, RS IN II] LEFT VENTRICULAR HYPERTROPHY AND ST-T CHANGE [VOLTAGE CRITERIA PLUS ST/T ABNORMALITY] POSSIBLE SEPTAL MYOCARDIAL INFARCTION , OF INDETERMINATE AGE [30 ms Q WAVE IN V1/V2] Compared to ECG 07/16/2024 00:34:34 Myocardial infarct finding still present Electronically Signed On 07-18-2024 18:53:47 OVERLOCK SEWING MACHINE OPERATOR by Miguel Zimmer M.D. [email or web address]
--- NOTE | 2024-07-16 14:20 | P.PN_ITS ---
Subjective 2 Subjective: Patient was seen this morning, she is alert to person, not to place, to time, she does not follow commands becomes easily agitated, at times her speech is nonsensical, she appears to be short of breath, has bilateral 3+ pitting edema, Vitals/I&O/Wt Last Vital Signs Temp 98.3 F 07/16/24 12:00 Pulse 80 07/16/24 12:00 Resp 23 H 07/16/24 12:00 BP 168/69 07/16/24 12:00 Pulse Ox 95 07/16/24 07:49 O2 Del Method Room Air 07/16/24 07:49 07/15/24 07/16/24 07/16/24 22:59 06:59 14:59 Intake Total 490 / 490 Output Total 700 / 700 Balance -210 / -210 Weight last 48 hrs Weight 121.79 kg Physical Exam 2 Const: COMMON NORMALS: no acute distress ORIENTATION/CONSCIOUSNESS: Yes awake, Yes oriented to person and Yes confused; not oriented to place and not oriented to time Resp: COMMON NORMALS: normal respiratory effort, No retractions and No use of accessory muscles AUSCULTATION: crackles Cardio: COMMON NORMALS: regular rate, regular rhythm, S1 normal heart sound present and S2 normal heart sound present RATE: regular rate RHYTHM: r egular rhythm HEART SOUNDS: S1 normal heart sound present and S2 normal heart sound present GI: COMMON NORMALS: Normal to inspection, nondistended, normoactive bowel sounds present and non-tender Extremity: NARRATIVE EXTREMITY EXAM: 3+ pitting edema Neuro: SENSORIUM/ORIENTATION: Yes oriented to person, No oriented to place and No oriented to time Urinary Catheter Management: Kent: Cath Placed During This Visit: yes Reason for Continuing Indwelling Catheter: Accurate Measurement of Urinary Output in Critically Ill Patients Urinary Catheter Date of Insertion: 07/16/24 Urinary Catheter Time of Insertion: 10:26 Data 07/16/24 00:20 07/16/24 00:20 A&P Assessment and plan (1) CHF (congestive heart failure): (2) Insulin dependent type 2 diabetes mellitus: (3) DELORIS (acute kidney injury): (4) Pneumonia: (5) Acute encephalopathy: Plan Acute encephalopathy -History of depression, paranoia, CVA, dysphagia secondary to CVA -Now with pneumonia -Neurochecks -NIH stroke scale -Aspiration precautions -Monitor mentation closely -Can use Haldol as needed for agitation Pneumonia -With leukocytosis, with bilateral lung opacities -Continue Rocephin -Continue Zithromycin -DuoNeb as needed Acute systolic CHF exacerbation -With bilateral extreme edema, elevated BNP, crackles on examination -Monitor creatinine monitor potassium -Continue Lasix therapy -Cardiac echo Acute kidney injury -Monitor urine output, monitor creatinine, place Kent catheter Type 2 diabetes mellitus # Moderate dose sliding scale -Lantus 50 units twice daily NSTEMI -Continue Plavix, statin -Cardiac echo * Full code ? Heparin for DVT prophylaxis Attestations 2 Medical Necessity Statement*: Patient requires hospitalization for acute encephalopathy, pneumonia, CHF, DELORIS Diagnoses CHF (congestive heart failure) I50.9 Insulin dependent type 2 diabetes mellitus E11.9; Z79.4 DELORIS (acute kidney injury) N17.9 Pneumonia J18.9 Acute encephalopathy G93.40
[2024-07-16 15:40] LABS: Anion Gap 15.7 (5-19); Blood Urea Nitrogen 45 mg/dL (8-23); Calcium 9.2 mg/dL (8.5-10.5); Carbon Dioxide 23 mmol/L (22-29); Chloride 106 mmol/L (98-107); Creatinine Clr Calc Pharmacy 32.3453; Glomerular Filtration Rate 21.3 mL/min (90-130); Glucose 180 mg/dL (65-115); Osmolality Calculated 306 mOsm/kg (285-295); Potassium 4.7 mmol/L (3.5-5.1); Sodium 140 mmol/L (136-145)
[2024-07-16 17:16] LABS: Glucose Point of Care 176 mg/dL (70-110)
[2024-07-16] MEDS: insulin glargine 100 units/1 mL 15 UNIT SUBCUT (17:34)
[2024-07-16 20:43] LABS: Glucose Point of Care 261 mg/dL (70-110)
[2024-07-16] MEDS: OLANZapine 5 mg TABLET PO (20:49)
[2024-07-17] VITALS (7 sets, daily range): BP systolic 131–191; BP diastolic 37–83; PULSE 68–96; RESP 20–28; TEMP 36.3–37.2; O2SAT 90–98
[2024-07-17 04:28] LABS: Basophils # 0.1 10^3/uL (0.0-0.1); Basophils % 0.6 %; Eosinophils # 0.3 10^3/uL (0.0-0.8); Eosinophils % 3.4 %; Hematocrit 29.1 % (36-47); Lymphocytes # 1.2 10^3/uL (0.8-4.8); Lymphocytes % 12.8 %; Mean Corpuscular HGB Conc 29.2 g/dL (30-55); Mean Corpuscular Hemoglobin 25.8 pg (27-33); Mean Corpuscular Volume 88.4 fl (85-98); Mean Platelet Volume 10.4 fL (7.4-10.4); Monocytes # 0.8 10^3/uL (0.2-0.9); Neutrophils # 7.25 10^3/uL (1.8-7.7); Neutrophils % 74.8 %; Nucleated Red Blood Cells % 0 %; Platelet Count 260 10^3/cmm (157-399); Red Blood Count 3.29 10^6/uL (3.85-5.65)
[2024-07-17 04:51] LABS: Alanine Aminotransferase 10 U/L (0-33); Albumin Level 3.1 g/dL (3.5-5.2); Alkaline Phosphatase 117 U/L (35-105); Anion Gap 15.7 (5-19); Aspartate Amino Transferase 10 U/L (0-32); Blood Urea Nitrogen 47 mg/dL (8-23); C Reactive Protein 33.5 mg/L (0.0-4.9); Calcium 8.3 mg/dL (8.5-10.5); Carbon Dioxide 24 mmol/L (22-29); Chloride 110 mmol/L (98-107); Creatinine Clr Calc Pharmacy 29.7576; Globulin 1.8 g/dL (1.3-4.6); Glomerular Filtration Rate 19.4 mL/min (90-130); Glucose 233 mg/dL (65-115); Magnesium 1.6 mg/dL (1.7-2.3); Osmolality Calculated 320 mOsm/kg (285-295); Phosphorus 4.9 mg/dL (2.5-4.5); Potassium 4.7 mmol/L (3.5-5.1); Sodium 145 mmol/L (136-145); Total Bilirubin 0.2 mg/dL (0.15-1.2); Total Protein 4.9 g/dL (6.6-8.7)
[2024-07-17 05:00] LABS: NT Pro B Type Natriuretic Pept 5157 pg/mL (0-125)
[2024-07-17 06:32] LABS: Glucose Point of Care 258 mg/dL (70-110)
[2024-07-17] MEDS: cefTRIAXone 1,000 mg SDV 1000 MG IVP (09:49)
[2024-07-17] MEDS: AZITHROMYCIN ADD-Vantage 500 MG in 0.9% NaCl ADD-Vantage 250 ML 250 MG IV (09:49)
[2024-07-17] MEDS: pantoprazole 40 mg SDV IVP (09:50)
[2024-07-17] MEDS: insulin glargine 100 units/1 mL 15 UNIT SUBCUT (09:50)
[2024-07-17] MEDS: clopidogrel 75 mg Tablet PO (09:50)
[2024-07-17] MEDS: duloxetine 60 mg Capsule PO (09:50)
[2024-07-17] MEDS: FUROsemide 10 mg/mL SDV 4mL 40 MG IVP ×2 (09:50→21:31)
[2024-07-17] MEDS: heparin 5,000 unit/mL INJ 1 mL 5000 UNIT SUBCUT ×2 (09:50→21:32)
[2024-07-17] MEDS: atorvastatin 40 mg Tablet PO (09:50)
[2024-07-17] MEDS: insulin lispro 100 unit/1 mL SUBCUT ×3 (10:11→21:32)
--- NOTE | 2024-07-17 14:51 | P.PN_ITS ---
Subjective 2 Subjective: Patient was seen this morning she is alert to person, not to place, to time, she denies any chest pain, no cough, continues to have pitting edema bilateral lower extremity Vitals/I&O/Wt Last Vital Signs Temp 98.5 F 07/17/24 11:20 Pulse 77 07/17/24 11:20 Resp 20 H 07/17/24 11:20 BP 162/67 07/17/24 11:20 Pulse Ox 98 07/17/24 11:20 O2 Del Method Nasal Cannula 07/17/24 11:20 O2 Flow Rate 2 07/17/24 11:20 07/16/24 07/17/24 07/17/24 22:59 06:59 14:59 Intake Total 420 / 910 0 / 910 250 / 250 Output Total 350 / 1050 525 / 1575 Balance 70 / -140 -525 / -665 250 / 250 Weight last 48 hrs Weight 121.79 kg Weight 121.79 kg Physical Exam 2 Const: COMMON NORMALS: no acute distress ORIENTATION/CONSCIOUSNESS: Yes awake, Yes oriented to person and Yes oriented to place; not oriented to time Resp: COMMON NORMALS: normal respiratory effort, No retractions, No use of accessory muscles and clear to auscultation bilaterally AUSCULTATION: clear to auscultation bilaterally Cardio: COMMON NORMALS: regular rate, regular rhythm, S1 normal heart sound present and S2 normal heart sound present RATE: regular rate RHYTHM: r egular rhythm HEART SOUNDS: S1 normal heart sound present and S2 normal heart sound present GI: COMMON NORMALS: Normal to inspection, nondistended, normoactive bowel sounds present and non-tender Extremity: NARRATIVE EXTREMITY EXAM: 2+ edema Neuro: SENSORIUM/ORIENTATION: Yes oriented to person, Yes oriented to place and No oriented to time Psych: COMMON NORMALS: mental status grossly normal Urinary Catheter Management: Kent: Cath Placed During This Visit: yes Reason for Continuing Indwelling Catheter: Other Urinary Catheter Date of Insertion: 07/16/24 Urinary Catheter Time of Insertion: 10:26 Data 07/17/24 03:19 07/17/24 03:19 Micro: Microbiology 07/16/24 15:12 Blood Culture - Preliminary Blood SPECIMEN COLLECTED 07/16/24 15:10 Blood Culture - Preliminary Blood SPECIMEN COLLECTED A&P Assessment and plan (1) CHF (congestive heart failure): (2) Insulin dependent type 2 diabetes mellitus: (3) DELORIS (acute kidney injury): (4) Pneumonia: (5) Acute encephalopathy: Plan Acute encephalopathy -History of depression, paranoia, CVA, dysphagia secondary to CVA -Now with pneumonia -Neurochecks -NIH stroke scale -Aspiration precautions -Monitor mentation closely -Can use Haldol as needed for agitation Pneumonia -With leukocytosis, with bilateral lung opacities -Continue Rocephin -Continue Zithromycin -DuoNeb as needed Acute systolic CHF exacerbation -With bilateral extreme edema, elevated BNP, crackles on examination -Monitor creatinine monitor potassium -Continue Lasix therapy -Cardiac echo CONCLUSIONS LV systolic function is normal with EF of 50-55%. Grade 1 diatsolic dysfunction Left atrial dilation Moderate mitral stenosis. Mild kathleen regurgitation Mild aortic stenosis with aortic valve area of 2.1cm2 and mean gradient of 12mmHg. Mild tricuspid regurgitation. Compared to prior echocardiogram from 2019, patient now has moderate mitral stenosis and mild aortic stenosis. Also has grade 1 diastolic dysfunction. Acute kidney injury -Monitor urine output, monitor creatinine, place Kent catheter US/US renal BI* [id number] IMPRESSION: 1. Limited ultrasound evaluation of the kidneys due to body habitus. 2. Kidneys are normal size. No hydronephrosis. Type 2 diabetes mellitus # Moderate dose sliding scale -Lantus 15 units twice daily NSTEMI -Continue Plavix, statin -Cardiac echo * Full code ? Heparin for DVT prophylaxis Attestations 2 Medical Necessity Statement*: Plan for today continue IV diuresis, continue IV antibiotics, patient requires hospitalization for CHF, pneumonia, encephalopathy, DELORIS Diagnoses CHF (congestive heart failure) I50.9 Insulin dependent type 2 diabetes mellitus E11.9; Z79.4 DELORIS (acute kidney injury) N17.9 Pneumonia J18.9 Acute encephalopathy G93.40
[2024-07-17] MEDS: potassium chloride ER 20 mEq Tablet PO (16:09)
[2024-07-17] MEDS: metOLazone 5 MG Tablet PO (16:09)
[2024-07-17] MEDS: LORazepam 2 mg/mL INJ 1 mL 1 MG IVP (16:10)
--- NOTE | 2024-07-17 16:18 | PC.NURSE ---
Patient is weeping and very up set with where she lives. C/o feeling anxious. Medication provided as ordered.
[2024-07-17 17:21] LABS: Glucose Point of Care 115 mg/dL (70-110)
[2024-07-17 21:16] LABS: Glucose Point of Care 235 mg/dL (70-110)
[2024-07-17] MEDS: OLANZapine 5 mg TABLET PO (21:32)
[2024-07-18] VITALS (10 sets, daily range): BP systolic 153–179; BP diastolic 60–79; PULSE 63–82; RESP 17–32; TEMP 36.3–36.9; O2SAT 96–100
[2024-07-18] MEDS: LORazepam 2 mg/mL INJ 1 mL 1 MG IVP (01:54)
[2024-07-18 05:33] LABS: Basophils # 0.1 10^3/uL (0.0-0.1); Basophils % 0.8 %; Eosinophils # 0.8 10^3/uL (0.0-0.8); Eosinophils % 6.4 %; Hematocrit 31.7 % (36-47); Lymphocytes # 1.4 10^3/uL (0.8-4.8); Lymphocytes % 11.6 %; Mean Corpuscular HGB Conc 29.3 g/dL (30-55); Mean Corpuscular Hemoglobin 26.2 pg (27-33); Mean Corpuscular Volume 89.3 fl (85-98); Mean Platelet Volume 9.8 fL (7.4-10.4); Monocytes # 0.9 10^3/uL (0.2-0.9); Monocytes % 7.5 %; Neutrophils # 8.75 10^3/uL (1.8-7.7); Neutrophils % 73.3 %; Nucleated Red Blood Cells % 0 %; Platelet Count 270 10^3/cmm (157-399); Red Blood Count 3.55 10^6/uL (3.85-5.65); Red Cell Distribution Width 15.9 % (12.1-15.1); White Blood Count 11.94 10^3/uL (3.29-11.43)
[2024-07-18 06:04] LABS: Alanine Aminotransferase 10 U/L (0-33); Alkaline Phosphatase 113 U/L (35-105); Anion Gap 11.3 (5-19); Aspartate Amino Transferase 13 U/L (0-32); Blood Urea Nitrogen 41 mg/dL (8-23); Calcium 9.1 mg/dL (8.5-10.5); Carbon Dioxide 26 mmol/L (22-29); Chloride 109 mmol/L (98-107); Creatinine Clr Calc Pharmacy 30.9975; Globulin 2.6 g/dL (1.3-4.6); Glomerular Filtration Rate 20.3 mL/min (90-130); Glucose 141 mg/dL (65-115); Magnesium 1.6 mg/dL (1.7-2.3); NT Pro B Type Natriuretic Pept 3096 pg/mL (0-125); Osmolality Calculated 306 mOsm/kg (285-295); Phosphorus 4.3 mg/dL (2.5-4.5); Potassium 4.3 mmol/L (3.5-5.1); Sodium 142 mmol/L (136-145); Total Bilirubin 0.2 mg/dL (0.15-1.2); Total Protein 5.6 g/dL (6.6-8.7)
[2024-07-18 06:32] LABS: Glucose Point of Care 179 mg/dL (70-110)
[2024-07-18] MEDS: pantoprazole 40 mg SDV IVP (08:51)
[2024-07-18] MEDS: cefTRIAXone 1,000 mg SDV 1000 MG IVP (08:51)
[2024-07-18] MEDS: duloxetine 60 mg Capsule PO (08:51)
[2024-07-18] MEDS: atorvastatin 40 mg Tablet PO (08:51)
[2024-07-18] MEDS: clopidogrel 75 mg Tablet PO (08:51)
[2024-07-18] MEDS: metOLazone 5 MG Tablet PO (08:51)
[2024-07-18] MEDS: FUROsemide 10 mg/mL SDV 4mL 40 MG IVP ×2 (08:51→20:15)
[2024-07-18] MEDS: potassium chloride ER 20 mEq Tablet PO (08:51)
[2024-07-18] MEDS: morphine 4 mg/mL SDV 1 mL 2 MG IVP (08:52)
[2024-07-18] MEDS: insulin glargine 100 units/1 mL 15 UNIT SUBCUT ×2 (08:52→18:18)
[2024-07-18] MEDS: insulin lispro 100 unit/1 mL SUBCUT ×4 (08:52→22:10)
[2024-07-18] MEDS: AZITHROMYCIN ADD-Vantage 500 MG in 0.9% NaCl ADD-Vantage 250 ML 250 MG IV (09:15)
[2024-07-18 11:53] LABS: Glucose Point of Care 256 mg/dL (70-110)
[2024-07-18] MEDS: heparin 5,000 unit/mL INJ 1 mL 5000 UNIT SUBCUT ×2 (12:24→22:10)
--- NOTE | 2024-07-18 13:22 | P.PN_ITS ---
Subjective 2 Subjective: Patient was seen this morning, she is sitting up in a chair, she is alert to person, to place, not to time she follows all commands, on 2 L, denies any chest pain, no palpitations, no shortness of breath, her edema she tells me is improving Vitals/I&O/Wt Last Vital Signs Temp 97.3 F L 07/18/24 11:29 Pulse 63 07/18/24 11:29 Resp 20 H 07/18/24 11:29 BP 159/73 07/18/24 11:29 Pulse Ox 97 07/18/24 11:29 O2 Del Method Nasal Cannula 07/18/24 11:29 O2 Flow Rate 2 07/18/24 11:29 07/17/24 07/18/24 07/18/24 22:59 06:59 14:59 Intake Total 240 / 490 640 / 1130 490 / 490 Output Total 1600 / 1600 1000 / 2600 Balance -1360 / -1110 -360 / -1470 490 / 490 Weight last 48 hrs Weight 121.79 kg Physical Exam 2 Const: COMMON NORMALS: no acute distress Resp: COMMON NORMALS: normal respiratory effort, No retractions, No use of accessory muscles and clear to auscultation bilaterally AUSCULTATION: clear to auscultation bilaterally Cardio: COMMON NORMALS: regular rate, regular rhythm, S1 normal heart sound present and S2 normal heart sound present RATE: regular rate RHYTHM: r egular rhythm HEART SOUNDS: S1 normal heart sound present and S2 normal heart sound present GI: COMMON NORMALS: Normal to inspection, nondistended, normoactive bowel sounds present and non-tender Extremity: NARRATIVE EXTREMITY EXAM: 2+ pitting edema Psych: COMMON NORMALS: mental status grossly normal Urinary Catheter Management: Kent: Cath Placed During This Visit: yes Reason for Continuing Indwelling Catheter: Other Urinary Catheter Date of Insertion: 07/16/24 Urinary Catheter Time of Insertion: 10:26 Data 07/18/24 05:19 07/18/24 05:19 Micro: Microbiology 07/16/24 15:12 Blood Culture - Preliminary Blood NEGATIVE TO DATE 07/16/24 15:10 Blood Culture - Preliminary Blood NEGATIVE TO DATE A&P Assessment and plan (1) CHF (congestive heart failure): (2) Insulin dependent type 2 diabetes mellitus: (3) DELORIS (acute kidney injury): (4) Pneumonia: (5) Acute encephalopathy: Plan Acute encephalopathy -History of depression, paranoia, CVA, dysphagia secondary to CVA -Now with pneumonia -Neurochecks -NIH stroke scale -Aspiration precautions -Monitor mentation closely -Can use Haldol as needed for agitation Pneumonia -With leukocytosis, with bilateral lung opacities -De-escalate to Augmentin -DuoNeb as needed Acute systolic CHF exacerbation -With bilateral extreme edema, elevated BNP, crackles on examination -Monitor creatinine monitor potassium -Continue Lasix therapy 40 IV twice daily 1 dose metolazone -Cardiac echo CONCLUSIONS LV systolic function is normal with EF of 50-55%. Grade 1 diatsolic dysfunction Left atrial dilation Moderate mitral stenosis. Mild kathleen regurgitation Mild aortic stenosis with aortic valve area of 2.1cm2 and mean gradient of 12mmHg. Mild tricuspid regurgitation. Compared to prior echocardiogram from 2019, patient now has moderate mitral stenosis and mild aortic stenosis. Also has grade 1 diastolic dysfunction. Acute kidney injury -Monitor urine output, monitor creatinine, place Kent catheter US/ renal BI* [id number] IMPRESSION: 1. Limited ultrasound evaluation of the kidneys due to body habitus. 2. Kidneys are normal size. No hydronephrosis. Type 2 diabetes mellitus # Moderate dose sliding scale -Lantus 15 units twice daily NSTEMI -Continue Plavix, statin -Cardiac echo * Full code ? Heparin for DVT prophylaxis Plan for today 2 doses IV Lasix, metolazone continue antibiotics, Attestations 2 Medical Necessity Statement*: Patient requires hospitalization for acute CHF exacerbation requiring IV diuresis Diagnoses CHF (congestive heart failure) I50.9 Insulin dependent type 2 diabetes mellitus E11.9; Z79.4 DELORIS (acute kidney injury) N17.9 Pneumonia J18.9 Acute encephalopathy G93.40
[2024-07-18] MEDS: hyDRALAzine 10 mg Tablet PO ×2 (14:58→22:11)
[2024-07-18] MEDS: amlodipine 10 mg Tablet PO (14:58)
[2024-07-18 17:24] LABS: Glucose Point of Care 179 mg/dL (70-110)
[2024-07-18 20:55] LABS: Glucose Point of Care 218 mg/dL (70-110)
[2024-07-18] MEDS: OLANZapine 5 mg TABLET PO (22:10)
[2024-07-19] VITALS (8 sets, daily range): BP systolic 170–191; BP diastolic 66–79; PULSE 61–85; RESP 19–22; TEMP 36.5–37.1; O2SAT 97–98
--- NOTE | 2024-07-19 01:55 | PC.NURSE ---
process description writer stated pt was getting agitated. nurse came in and talked to pt. pt is trearful. she is hearing voices not there. pt refused ativan to help calm her. donovanter states pt has not slept at all tonight. nurse to continue to monitor pt throughout the shift engineer.
[2024-07-19 02:42] LABS: Basophils # 0.1 10^3/uL (0.0-0.1); Basophils % 0.6 %; Eosinophils # 0.9 10^3/uL (0.0-0.8); Eosinophils % 7.7 %; Hematocrit 31.7 % (36-47); Lymphocytes # 1.4 10^3/uL (0.8-4.8); Lymphocytes % 12.2 %; Mean Corpuscular HGB Conc 29.3 g/dL (30-55); Mean Corpuscular Hemoglobin 26.3 pg (27-33); Mean Corpuscular Volume 89.5 fl (85-98); Mean Platelet Volume 9.7 fL (7.4-10.4); Monocytes # 0.9 10^3/uL (0.2-0.9); Monocytes % 7.7 %; Neutrophils # 8.07 10^3/uL (1.8-7.7); Neutrophils % 71.4 %; Nucleated Red Blood Cells % 0 %; Platelet Count 248 10^3/cmm (157-399); Red Blood Count 3.54 10^6/uL (3.85-5.65); Red Cell Distribution Width 15.7 % (12.1-15.1)
[2024-07-19 03:03] LABS: Alanine Aminotransferase 10 U/L (0-33); Albumin Level 3.1 g/dL (3.5-5.2); Alkaline Phosphatase 121 U/L (35-105); Anion Gap 15.2 (5-19); Aspartate Amino Transferase 12 U/L (0-32); Blood Urea Nitrogen 44 mg/dL (8-23); C Reactive Protein 22.5 mg/L (0.0-4.9); Calcium 8.4 mg/dL (8.5-10.5); Carbon Dioxide 24 mmol/L (22-29); Chloride 104 mmol/L (98-107); Creatinine Clr Calc Pharmacy 32.3453; Glomerular Filtration Rate 21.3 mL/min (90-130); Glucose 204 mg/dL (65-115); Magnesium 1.3 mg/dL (1.7-2.3); Osmolality Calculated 305 mOsm/kg (285-295); Phosphorus 3.7 mg/dL (2.5-4.5); Potassium 4.2 mmol/L (3.5-5.1); Sodium 139 mmol/L (136-145); Total Bilirubin 0.2 mg/dL (0.15-1.2); Total Protein 5.1 g/dL (6.6-8.7)
[2024-07-19 03:13] LABS: NT Pro B Type Natriuretic Pept 1811 pg/mL (0-125)
[2024-07-19] MEDS: hyDRALAzine 10 mg Tablet PO ×3 (05:41→21:45)
[2024-07-19 07:21] LABS: Glucose Point of Care 186 mg/dL (70-110)
[2024-07-19] MEDS: duloxetine 60 mg Capsule PO (08:12)
[2024-07-19] MEDS: insulin lispro 100 unit/1 mL SUBCUT ×4 (08:12→21:45)
[2024-07-19] MEDS: amoxicillin-clav 875-125 mg Tablet 1 TAB PO ×2 (08:12→17:31)
[2024-07-19] MEDS: clopidogrel 75 mg Tablet PO (08:12)
[2024-07-19] MEDS: amlodipine 10 mg Tablet PO (08:12)
[2024-07-19] MEDS: FUROsemide 10 mg/mL SDV 4mL 40 MG IVP ×2 (08:13→21:44)
[2024-07-19] MEDS: pantoprazole 40 mg SDV IVP (08:13)
[2024-07-19] MEDS: insulin glargine 100 units/1 mL 15 UNIT SUBCUT ×2 (08:20→17:32)
[2024-07-19] MEDS: magnesium sulfate premix 1 GM/100 ML PIGGYBACK IV (09:12)
[2024-07-19] MEDS: potassium chloride ER 20 mEq Tablet PO (09:12)
[2024-07-19] MEDS: metOLazone 5 MG Tablet PO (09:12)
[2024-07-19] MEDS: heparin 5,000 unit/mL INJ 1 mL 5000 UNIT SUBCUT ×2 (11:10→21:45)
[2024-07-19 11:41] LABS: Glucose Point of Care 213 mg/dL (70-110)
[2024-07-19] MEDS: LORazepam 2 mg/mL INJ 1 mL 1 MG IVP ×2 (12:28→21:46)
--- NOTE | 2024-07-19 13:19 | PC.SOCIAL ---
IMM Updated Updated pt on IMM. No questions voiced. Provided pt a copy. Initialed, dated, & timed a copy & placed in chart.
--- NOTE | 2024-07-19 14:13 | P.PN_ITS ---
Subjective 2 Subjective: Was seen this morning, patient has 2+ pitting edema bilateral extremity, shortness of breath is improving, she is alert to person, to place and not to time she has no other complaints Vitals/I&O/Wt Last Vital Signs Temp 98.0 F 07/19/24 12:00 Pulse 68 07/19/24 12:00 Resp 20 H 07/19/24 12:00 BP 191/75 07/19/24 12:00 Pulse Ox 98 07/19/24 12:00 O2 Del Method Room Air 07/19/24 12:00 O2 Flow Rate 2 07/18/24 16:00 07/18/24 07/19/24 07/19/24 22:59 06:59 14:59 Intake Total 960 / 1450 1040 / 1040 Output Total 1800 / 1800 1550 / 3350 Balance -840 / -350 -1550 / -1900 1040 / 1040 Physical Exam 2 Const: COMMON NORMALS: no acute distress ORIENTATION/CONSCIOUSNESS: Yes awake, Yes oriented to person and Yes oriented to place; not oriented to time Resp: COMMON NORMALS: normal respiratory effort, No retractions, No use of accessory muscles and clear to auscultation bilaterally AUSCULTATION: clear to auscultation bilaterally Cardio: COMMON NORMALS: regular rate, regular rhythm, S1 normal heart sound present and S2 normal heart sound present RATE: regular rate RHYTHM: r egular rhythm HEART SOUNDS: S1 normal heart sound present and S2 normal heart sound present GI: COMMON NORMALS: Normal to inspection, nondistended, normoactive bowel sounds present and non-tender Extremity: COMMON NORMALS: no pedal edema Neuro: SENSORIUM/ORIENTATION: Yes oriented to person, Yes oriented to place and No oriented to time Psych: COMMON NORMALS: mental status grossly normal Urinary Catheter Management: Kent: Cath Placed During This Visit: yes Reason for Continuing Indwelling Catheter: Other Urinary Catheter Date of Insertion: 07/16/24 Urinary Catheter Time of Insertion: 10:26 Data 07/19/24 02:32 07/19/24 02:32 Micro: Microbiology 07/18/24 21:15 Gram Stain - Final Sputum - Expectorated Sputum A&P Assessment and plan (1) CHF (congestive heart failure): (2) Insulin dependent type 2 diabetes mellitus: (3) DELORIS (acute kidney injury): (4) Pneumonia: (5) Acute encephalopathy: Plan Acute encephalopathy -History of depression, paranoia, CVA, dysphagia secondary to CVA -Now with pneumonia -Neurochecks -NIH stroke scale -Aspiration precautions -Monitor mentation closely -Can use Haldol as needed for agitation Pneumonia -With leukocytosis, with bilateral lung opacities -De-escalate to Augmentin -DuoNeb as needed Acute systolic CHF exacerbation -With bilateral extreme edema, elevated BNP, crackles on examination -Monitor creatinine monitor potassium -Continue Lasix therapy 40 IV twice daily 1 dose metolazone -Cardiac echo CONCLUSIONS LV systolic function is normal with EF of 50-55%. Grade 1 diatsolic dysfunction Left atrial dilation Moderate mitral stenosis. Mild kathleen regurgitation Mild aortic stenosis with aortic valve area of 2.1cm2 and mean gradient of 12mmHg. Mild tricuspid regurgitation. Compared to prior echocardiogram from 2019, patient now has moderate mitral stenosis and mild aortic stenosis. Also has grade 1 diastolic dysfunction. Acute kidney injury -Monitor urine output, monitor creatinine, place Kent catheter US/ renal BI* [id number] IMPRESSION: 1. Limited ultrasound evaluation of the kidneys due to body habitus. 2. Kidneys are normal size. No hydronephrosis. Type 2 diabetes mellitus # Moderate dose sliding scale -Lantus 15 units twice daily NSTEMI -Continue Plavix, statin -Cardiac echo * Full code ? Heparin for DVT prophylaxis Plan for today 2 doses IV Lasix, metolazone continue antibiotics, Attestations 2 Medical Necessity Statement*: Plan for today continue IV antibiotics, continue IV diuresis Diagnoses CHF (congestive heart failure) I50.9 Insulin dependent type 2 diabetes mellitus E11.9; Z79.4 DELORIS (acute kidney injury) N17.9 Pneumonia J18.9 Acute encephalopathy G93.40
--- NOTE | 2024-07-19 15:12 | ECG_ITS ---
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 Measurements Intervals Odon Rate: 70 P: 10 ID: [id number] QRS: -46 QRSD: 135 T: 51 QT: 433 QTc: 469 Interpretive Statements SINUS RHYTHM RIGHT BUNDLE BRANCH BLOCK [120+ ms QRS DURATION, UPRIGHT V1, 40+ ms S IN I/aVL/V4/V5/V6] LEFT ANTERIOR FASCICULAR BLOCK [QRS AXIS <= -45, QR IN I, RS IN II] LEFT VENTRICULAR HYPERTROPHY AND ST-T CHANGE [VOLTAGE CRITERIA PLUS ST/T ABNORMALITY] Compared to ECG 07/16/2024 12:09:43 Sinus bradycardia no longer present Sinus arrhythmia no longer present First degree AV block no longer present Myocardial infarct finding no longer present ST (T wave) deviation still present Electronically Signed On 07-20-2024 21:58:07 [employer] by Miguel Zimmer M.D. [email or web address]
[2024-07-19 17:20] LABS: Glucose Point of Care 270 mg/dL (70-110)
[2024-07-19 21:18] LABS: Glucose Point of Care 214 mg/dL (70-110)
[2024-07-19] MEDS: OLANZapine 5 mg TABLET PO (21:45)
[2024-07-20] VITALS (11 sets, daily range): BP systolic 114–161; BP diastolic 49–87; PULSE 69–83; RESP 17–28; TEMP 36.6–36.9; O2SAT 92–100
[2024-07-20 05:10] LABS: Basophils # 0.1 10^3/uL (0.0-0.1); Basophils % 0.7 %; Eosinophils # 0.9 10^3/uL (0.0-0.8); Eosinophils % 7.1 %; Hematocrit 33.3 % (36-47); Lymphocytes # 1.4 10^3/uL (0.8-4.8); Lymphocytes % 11.1 %; Mean Corpuscular HGB Conc 30.9 g/dL (30-55); Mean Corpuscular Hemoglobin 26.7 pg (27-33); Mean Corpuscular Volume 86.3 fl (85-98); Mean Platelet Volume 9.8 fL (7.4-10.4); Neutrophils # 8.97 10^3/uL (1.8-7.7); Neutrophils % 72.8 %; Nucleated Red Blood Cells % 0 %; Platelet Count 326 10^3/cmm (157-399); Red Blood Count 3.86 10^6/uL (3.85-5.65); Red Cell Distribution Width 15.8 % (12.1-15.1)
[2024-07-20 05:37] LABS: Alanine Aminotransferase 12 U/L (0-33); Albumin Level 3.4 g/dL (3.5-5.2); Alkaline Phosphatase 130 U/L (35-105); Anion Gap 18.1 (5-19); Aspartate Amino Transferase 16 U/L (0-32); Blood Urea Nitrogen 46 mg/dL (8-23); Calcium 9.1 mg/dL (8.5-10.5); Carbon Dioxide 25 mmol/L (22-29); Chloride 100 mmol/L (98-107); Glomerular Filtration Rate 20.3 mL/min (90-130); Glucose 143 mg/dL (65-115); Magnesium 1.6 mg/dL (1.7-2.3); Osmolality Calculated 302 mOsm/kg (285-295); Phosphorus 3.7 mg/dL (2.5-4.5); Potassium 4.1 mmol/L (3.5-5.1); Sodium 139 mmol/L (136-145); Total Bilirubin 0.3 mg/dL (0.15-1.2); Total Protein 6.4 g/dL (6.6-8.7)
[2024-07-20 05:44] LABS: NT Pro B Type Natriuretic Pept 2335 pg/mL (0-125)
[2024-07-20] MEDS: hyDRALAzine 10 mg Tablet PO ×3 (06:37→21:57)
[2024-07-20 07:04] LABS: Glucose Point of Care 166 mg/dL (70-110)
[2024-07-20] MEDS: insulin lispro 100 unit/1 mL SUBCUT ×4 (07:49→21:56)
[2024-07-20] MEDS: FUROsemide 10 mg/mL SDV 4mL 40 MG IVP ×2 (08:00→21:56)
[2024-07-20] MEDS: duloxetine 60 mg Capsule PO (08:00)
[2024-07-20] MEDS: clopidogrel 75 mg Tablet PO (08:00)
[2024-07-20] MEDS: pantoprazole 40 mg SDV IVP (08:00)
[2024-07-20] MEDS: amlodipine 10 mg Tablet PO (08:00)
[2024-07-20] MEDS: amoxicillin-clav 875-125 mg Tablet 1 TAB PO ×2 (08:00→17:34)
[2024-07-20] MEDS: insulin glargine 100 units/1 mL 15 UNIT SUBCUT ×2 (08:00→17:34)
[2024-07-20] MEDS: metOLazone 5 MG Tablet PO (09:33)
[2024-07-20 11:33] LABS: Glucose Point of Care 172 mg/dL (70-110)
[2024-07-20] MEDS: heparin 5,000 unit/mL INJ 1 mL 5000 UNIT SUBCUT ×2 (12:17→21:58)
--- NOTE | 2024-07-20 14:16 | PM.PN ---
Subjective Subjective: Patient was seen this morning, sitting up in a chair, denies any shortness of breath, does have lower extreme edema, no chest pain, palpitation she is alert to person, to place, to time she follows commands, has no complaints this morning Vitals/I&O/Wt Last Vital Signs Temp 98.0 F 07/20/24 11:41 Pulse 69 07/20/24 14:14 Resp 18 07/20/24 14:14 BP 114/63 07/20/24 11:41 Pulse Ox 95 07/20/24 14:14 O2 Del Method Nasal Cannula 07/20/24 14:14 O2 Flow Rate 2 07/20/24 14:14 07/19/24 07/20/24 07/20/24 22:59 06:59 14:59 Intake Total 1020 / 2060 480 / 2540 480 / 480 Output Total 2500 / 2500 2050 / 4550 600 / 600 Balance -1480 / -440 -1570 / -2010 -120 / -120 Weight last 48 hrs Weight 119.386 kg Physical Exam Const: COMMON NORMALS: no acute distress ORIENTATION/CONSCIOUSNESS: Yes awake, Yes oriented to person and Yes oriented to place; not oriented to time Resp: COMMON NORMALS: normal respiratory effort, No retractions, No use of accessory muscles and clear to auscultation bilaterally AUSCULTATION: clear to auscultation bilaterally Cardio: COMMON NORMALS: regular rate, regular rhythm, S1 normal heart sound present and S2 normal heart sound present RATE: regular rate RHYTHM: regular rhythm HEART SOUNDS: S1 normal heart sound present and S2 normal heart sound present GI: COMMON NORMALS: Normal to inspection, nondistended, normoactive bowel sounds present, non-tender and no masses Extremity: NARRATIVE EXTREMITY EXAM: 2+ edema Neuro: SENSORIUM/ORIENTATION: Yes oriented to person, Yes oriented to place and No oriented to time Psych: COMMON NORMALS: mental status grossly normal Urinary Catheter Management: Kent: Cath Placed During This Visit: yes Reason for Continuing Indwelling Catheter: Accurate Measurement of Urinary Output in Critically Ill Patients Urinary Catheter Date of Insertion: 07/16/24 Urinary Catheter Time of Insertion: 10:26 Data 07/20/24 04:19 07/20/24 04:19 Micro: Microbiology 07/18/24 21:15 Gram Stain - Final Sputum - Expectorated Sputum Sputum Culture - Preliminary A&P Assessment and plan (1) CHF (congestive heart failure): (2) Insulin dependent type 2 diabetes mellitus: (3) DELORIS (acute kidney injury): (4) Pneumonia: (5) Acute encephalopathy: Plan Acute encephalopathy, resolved -History of depression, paranoia, CVA, dysphagia secondary to CVA -Now with pneumonia -Neurochecks -NIH stroke scale -Aspiration precautions -Monitor mentation closely -Can use Haldol as needed for agitation Agitation ? Patient was placed on Zyprexa 5 mg at bedtime ? Continue for Lamictal 100 mg 3 times daily ? Continue Risperdal 1 mg p.o. every morning Continue Wellbutrin Pneumonia -With leukocytosis, with bilateral lung opacities -De-escalate to Augmentin -DuoNeb as needed Acute systolic CHF exacerbation -With bilateral extreme edema, elevated BNP, crackles on examination -Monitor creatinine monitor potassium -Continue Lasix therapy 40 IV twice daily 1 dose metolazone -Cardiac echo CONCLUSIONS LV systolic function is normal with EF of 50-55%. Grade 1 diatsolic dysfunction Left atrial dilation Moderate mitral stenosis. Mild kathleen regurgitation Mild aortic stenosis with aortic valve area of 2.1cm2 and mean gradient of 12mmHg. Mild tricuspid regurgitation. Compared to prior echocardiogram from 2020, patient now has moderate mitral stenosis and mild aortic stenosis. Also has grade 1 diastolic dysfunction. Acute kidney injury -Monitor urine output, monitor creatinine, place Kent catheter US/US renal BI* [id number] IMPRESSION: 1. Limited ultrasound evaluation of the kidneys due to body habitus. 2. Kidneys are normal size. No hydronephrosis. Type 2 diabetes mellitus # Moderate dose sliding scale -Lantus 15 units twice daily NSTEMI -Continue Plavix, statin -Cardiac echo * Full code ? Heparin for DVT prophylaxis Plan continues to have evidence of fluid overload 2 doses of IV Lasix with metolazone today, will discuss with psychiatry about possible transfer to geriatric psych versus transferring back to [facility] depending on input Attestations Medical Necessity Statement*: Patient requires hospitalization for fluid overload requiring IV diuresis Diagnoses CHF (congestive heart failure) I50.9 Insulin dependent type 2 diabetes mellitus E11.9; Z79.4 DELORIS (acute kidney injury) N17.9 Pneumonia J18.9 Acute encephalopathy G93.40
[2024-07-20] MEDS: lamoTRIgine 100 mg Tablet PO ×2 (15:17→21:57)
[2024-07-20 17:26] LABS: Glucose Point of Care 299 mg/dL (70-110)
[2024-07-20 21:12] LABS: Glucose Point of Care 267 mg/dL (70-110)
[2024-07-20] MEDS: OLANZapine 5 mg TABLET PO (21:57)
[2024-07-20] MEDS: zolpidem 5 mg Tablet PO (23:50)
[2024-07-21 04:00] VITALS: BP 142/71; PULSE 80; RESP 19; TEMP 36.9; O2SAT 96
[2024-07-21 05:15] LABS: Basophils # 0.1 10^3/uL (0.0-0.1); Basophils % 0.9 %; Eosinophils # 0.8 10^3/uL (0.0-0.8); Eosinophils % 6.3 %; Hematocrit 31.2 % (36-47); Lymphocytes # 1.3 10^3/uL (0.8-4.8); Lymphocytes % 10.8 %; Mean Corpuscular HGB Conc 31.4 g/dL (30-55); Mean Platelet Volume 10.1 fL (7.4-10.4); Monocytes % 8.5 %; Neutrophils # 8.64 10^3/uL (1.8-7.7); Neutrophils % 72.9 %; Nucleated Red Blood Cells % 0 %; Platelet Count 289 10^3/cmm (157-399); Red Blood Count 3.63 10^6/uL (3.85-5.65); Red Cell Distribution Width 15.8 % (12.1-15.1); White Blood Count 11.86 10^3/uL (3.29-11.43)
[2024-07-21 05:41] LABS: Alanine Aminotransferase 21 U/L (0-33); Albumin Level 3.2 g/dL (3.5-5.2); Alkaline Phosphatase 117 U/L (35-105); Anion Gap 17.7 (5-19); Aspartate Amino Transferase 24 U/L (0-32); Blood Urea Nitrogen 52 mg/dL (8-23); Calcium 8.6 mg/dL (8.5-10.5); Carbon Dioxide 25 mmol/L (22-29); Chloride 98 mmol/L (98-107); Creatinine Clr Calc Pharmacy 31.9701; Globulin 2.7 g/dL (1.3-4.6); Glomerular Filtration Rate 21.3 mL/min (90-130); Glucose 167 mg/dL (65-115); Magnesium 1.6 mg/dL (1.7-2.3); Osmolality Calculated 302 mOsm/kg (285-295); Phosphorus 4.1 mg/dL (2.5-4.5); Potassium 3.7 mmol/L (3.5-5.1); Sodium 137 mmol/L (136-145); Total Bilirubin 0.2 mg/dL (0.15-1.2); Total Protein 5.9 g/dL (6.6-8.7)
[2024-07-21 05:50] LABS: NT Pro B Type Natriuretic Pept 1698 pg/mL (0-125)
[2024-07-21 06:52] LABS: Glucose Point of Care 209 mg/dL (70-110)
[2024-07-21 07:27] VITALS: BP 139/57; PULSE 82; RESP 18; TEMP 36.9; O2SAT 97
[2024-07-21 08:00] VITALS: BP 139/57; PULSE 82; RESP 18; TEMP 36.9
[2024-07-21] MEDS: clopidogrel 75 mg Tablet PO (08:42)
[2024-07-21] MEDS: insulin lispro 100 unit/1 mL SUBCUT ×4 (08:42→21:54)
[2024-07-21] MEDS: amoxicillin-clav 875-125 mg Tablet 1 TAB PO ×2 (08:42→18:05)
[2024-07-21] MEDS: allopurinol 300 mg Tablet PO (08:42)
[2024-07-21] MEDS: risperiDONE 1 mg Tablet PO (08:42)
[2024-07-21] MEDS: hyDRALAzine 10 mg Tablet PO ×3 (08:42→21:55)
[2024-07-21] MEDS: insulin glargine 100 units/1 mL 15 UNIT SUBCUT ×2 (08:42→18:02)
[2024-07-21] MEDS: amlodipine 10 mg Tablet PO (08:42)
[2024-07-21] MEDS: buPROPion XL (24 HR) 150 mg Tablet PO (08:43)
[2024-07-21] MEDS: metOLazone 5 MG Tablet PO (08:43)
[2024-07-21] MEDS: duloxetine 60 mg Capsule PO (08:43)
[2024-07-21] MEDS: lamoTRIgine 100 mg Tablet PO ×3 (08:43→20:45)
[2024-07-21] MEDS: FUROsemide 10 mg/mL SDV 4mL 40 MG IVP ×2 (09:21→20:45)
[2024-07-21] MEDS: pantoprazole 40 mg SDV IVP (09:21)
--- NOTE | 2024-07-21 10:10 | XRR_ITS ---
PROCEDURE INFORMATION: Exam: XR Chest Exam date and time: 07/21/2024 10:19 AM Age: 64 years old Clinical indication: Shortness of breath; Additional info: SOB TECHNIQUE: Imaging protocol: Radiologic exam of the chest. Views: 1 view. COMPARISON: CR XR chest 1V portable [id number] 07/15/2024 4:56 PM FINDINGS: Lungs: Unremarkable. No consolidation. Pleural spaces: Unremarkable. No pleural effusion. No pneumothorax. Heart/Mediastinum: The heart is slightly enlarged. Is calcified plaque involving the aorta. Diaphragm: The right hemidiaphragm is elevated. Bones/joints: There are fibro-osseous sutures involving the humeral heads bilaterally. XR/XR chest 1V portable [id number] IMPRESSION: 1. Mild cardiomegaly.
[2024-07-21] MEDS: heparin 5,000 unit/mL INJ 1 mL 5000 UNIT SUBCUT ×2 (10:50→21:54)
[2024-07-21 10:55] LABS: C Reactive Protein 17.5 mg/L (0.0-4.9)
[2024-07-21 11:03] LABS: Procalcitonin 0.21 ng/mL (0-0.5)
[2024-07-21 12:00] VITALS: BP 152/69; PULSE 68; RESP 22; TEMP 36.9; O2SAT 100
--- NOTE | 2024-07-21 12:11 | PC.SOCIAL ---
IMM Updated Updated pt's guardian on IMM. No questions voiced. Provided pt a copy. Initialed, dated, & timed copy in chart.
[2024-07-21 12:14] LABS: Glucose Point of Care 331 mg/dL (70-110)
--- NOTE | 2024-07-21 12:28 | P.PN_ITS ---
Subjective 2 Subjective: Patient was seen this morning, she is sitting up in a chair, is alert to person, to place, follows commands, no episodes of agitation is quite pleasant, she has no specific complaints this morning, Vitals/I&O/Wt Last Vital Signs Temp 98.4 F 07/21/24 12:00 Pulse 68 07/21/24 12:00 Resp 22 H 07/21/24 12:00 BP 152/69 07/21/24 12:00 Pulse Ox 100 07/21/24 12:00 O2 Del Method Nasal Cannula 07/21/24 12:00 O2 Flow Rate 2 07/21/24 12:00 07/20/24 07/21/24 07/21/24 22:59 06:59 14:59 Intake Total 400 / 880 600 / 1480 240 / 240 Output Total 800 / 1400 2100 / 3500 Balance -400 / -520 -1500 / -2020 240 / 240 Weight last 48 hrs Weight 119.386 kg Weight 119.386 kg Physical Exam 2 Const: COMMON NORMALS: no acute distress ORIENTATION/CONSCIOUSNESS: Yes awake, Yes oriented to person and Yes oriented to place Resp: COMMON NORMALS: normal respiratory effort, No retractions, No use of accessory muscles and clear to auscultation bilaterally AUSCULTATION: clear to auscultation bilaterally Cardio: COMMON NORMALS: regular rate, regular rhythm, S1 normal heart sound present and S2 normal heart sound present RATE: regular rate RHYTHM: r egular rhythm HEART SOUNDS: S1 normal heart sound present and S2 normal heart sound present GI: COMMON NORMALS: Normal to inspection, nondistended, normoactive bowel sounds present and non-tender Extremity: COMMON NORMALS: no pedal edema Neuro: SENSORIUM/ORIENTATION: Yes oriented to person and Yes oriented to place Psych: COMMON NORMALS: mental status grossly normal Urinary Catheter Management: Kent: Cath Placed During This Visit: yes Reason for Continuing Indwelling Catheter: Accurate Measurement of Urinary Output in Critically Ill Patients Urinary Catheter Date of Insertion: 07/16/24 Urinary Catheter Time of Insertion: 10:26 Data 07/21/24 02:39 07/21/24 02:39 Micro: Microbiology 07/18/24 21:15 Gram Stain - Final Sputum - Expectorated Sputum Sputum Culture - Preliminary A&P Assessment and plan (1) CHF (congestive heart failure): (2) Insulin dependent type 2 diabetes mellitus: (3) DELORIS (acute kidney injury): (4) Pneumonia: (5) Acute encephalopathy: Plan Acute encephalopathy, resolved -History of depression, paranoia, CVA, dysphagia secondary to CVA -Now with pneumonia -Neurochecks -NIH stroke scale -Aspiration precautions -Monitor mentation closely -Can use Haldol as needed for agitation Agitation, none during my examination has been quite pleasant, follows commands, ? Patient was placed on Zyprexa 5 mg at bedtime ? Continue for Lamictal 100 mg 3 times daily ? Continue Risperdal 1 mg p.o. every morning Continue Wellbutrin Pneumonia -With leukocytosis, with bilateral lung opacities -De-escalate to Augmentin -DuoNeb as needed Acute systolic CHF exacerbation -With bilateral extreme edema, elevated BNP, crackles on examination -Monitor creatinine monitor potassium -Continue Lasix therapy 40 IV twice daily 1 dose metolazone -Cardiac echo CONCLUSIONS LV systolic function is normal with EF of 50-55%. Grade 1 diatsolic dysfunction Left atrial dilation Moderate mitral stenosis. Mild kathleen regurgitation Mild aortic stenosis with aortic valve area of 2.1cm2 and mean gradient of 12mmHg. Mild tricuspid regurgitation. Compared to prior echocardiogram from 2020, patient now has moderate mitral stenosis and mild aortic stenosis. Also has grade 1 diastolic dysfunction. Acute kidney injury -Monitor urine output, monitor creatinine, place Kent catheter US/US renal BI* [id number] IMPRESSION: 1. Limited ultrasound evaluation of the kidneys due to body habitus. 2. Kidneys are normal size. No hydronephrosis. Type 2 diabetes mellitus # Moderate dose sliding scale -Lantus 15 units twice daily NSTEMI -Continue Plavix, statin -Cardiac echo as above * Full code ? Heparin for DVT prophylaxis Plan continue diuresis for fluid overload, Attestations 2 Medical Necessity Statement*: Patient requires hospitalization for acute hypoxic respiratory failure secondary to fluid overload Diagnoses CHF (congestive heart failure) I50.9 Insulin dependent type 2 diabetes mellitus E11.9; Z79.4 DELORIS (acute kidney injury) N17.9 Pneumonia J18.9 Acute encephalopathy G93.40
[2024-07-21 13:16] LABS: Adenovirus Not Detected (NOT DETECT); Chlamydia Pneumoniae Not Detected (NOT DETECT); Coronavirus 229E,HKU1,NL63,OC4 Not Detected (NOT DETECT); Human Metapneumovirus Not Detected (NOT DETECT); Human Rhinovirus/Enterovirus Detected (NOT DETECT); Influenza A Not Detected (NOT DETECT); Influenza A H1 Not Detected (NOT DETECT); Influenza A H1-2009 Not Detected (NOT DETECT); Influenza A H3 Not Detected (NOT DETECT); Influenza B Not Detected (NOT DETECT); Mycoplasma Pneumoniae Not Detected (NOT DETECT); Parainfluenza Virus Type 1 Not Detected (NOT DETECT); Parainfluenza Virus Type 2 Not Detected (NOT DETECT); Parainfluenza Virus Type 3 Not Detected (NOT DETECT); Parainfluenza Virus Type 4 Not Detected (NOT DETECT); Respiratory Syncytial Virus A Not Detected (NOT DETECT); Respiratory Syncytial Virus B Not Detected (NOT DETECT); SARS-COV-2 Not Detected (NOT DETECT)
--- NOTE | 2024-07-21 15:50 | P.NPUPN_ITS ---
Subjective NPU 2 Subjective: Patient presented today reporting that she is okay. She continued to communicate in her aphasic way per staff reports and direct conversation. But she continues to demonstrate improvement over her presentation and has no new concerns taking her oral medications. 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 Mental Status Exam 2 MSE Comments: This is an obese versus morbidly white female with hospital gown on with limited grooming and eye contact. No abnormal movements except for occasional psychomotor agitation. Mostly cooperative with exam in mild distress at times. Speech was normal rate and occasionally increased volume. Her words were at times near word salad but other x 1 could draw from her clear aphasia the essence of what she was trying to communicate but her delivery was very staccatic and that her delivery was choppy as she attempted to find words and would have paraphasias where she would say collections of words attempting to get at the meaning of one word. Mood described as fine affect congruent. Thought process seeming disorganized but having some organization if you really followed her lines of thinking. Thought content: Denied suicidal or homicidal ideation, there were no delusions reported or noted, she denied any auditory or visual hallucinations. Attention and concentration were limited and memory was intermittently reliable but none were formally tested. She is alert and oriented x person and place. Insight and judgment appeared fair, impulse control limited. Vitals/I&O/Wt Last Vital Signs Temp 98.4 F 07/21/24 12:00 Pulse 68 07/21/24 12:00 Resp 22 H 07/21/24 12:00 BP 152/69 07/21/24 12:00 Pulse Ox 100 07/21/24 12:00 O2 Del Method Nasal Cannula 07/21/24 12:00 O2 Flow Rate 2 07/21/24 12:00 07/21/24 07/21/24 07/21/24 06:59 14:59 22:59 Intake Total 600 / 1480 240 / 240 Output Total 2100 / 3500 Balance -1500 / -2019 240 / 240 Weight last 48 hrs Weight 119.386 kg Weight 119.386 kg Physical Exam 2 Urinary Catheter Management: Kent: Cath Placed During This Visit: yes Reason for Continuing Indwelling Catheter: Accurate Measurement of Urinary Output in Critically Ill Patients Urinary Catheter Date of Insertion: 07/16/24 Urinary Catheter Time of Insertion: 10:26 Data NPU 07/22/24 03:19 07/22/24 03:19 Micro: Microbiology 07/18/24 21:15 Gram Stain - Final Sputum - Expectorated Sputum Sputum Culture - Final 07/16/24 15:12 Blood Culture - Final Blood NO GROWTH AFTER 5 DAYS 07/16/24 15:10 Blood Culture - Final Blood NO GROWTH AFTER 5 DAYS Microbiology 07/18/24 21:15 Sputum - Expectorated Sputum Gram Stain - Final 07/18/24 21:15 Sputum - Expectorated Sputum Sputum Culture - Final 07/16/24 15:12 Blood Blood Culture - Final NO GROWTH AFTER 5 DAYS 07/16/24 15:10 Blood Blood Culture - Final NO GROWTH AFTER 5 DAYS A&P Assessment and plan (1) Lives in assisted living facility: (2) Anxiety and depression: (3) Paranoid: (4) Diabetes mellitus with neuropathy: Qualifiers: Diabetes mellitus type: type 2 Diabetes mellitus intermediate teacher insulin use: with intermediate teacher use Qualified Code(s): E11.40 - Type 2 diabetes mellitus with diabetic neuropathy, unspecified; Z79.4 - ad terminal makeup operator (current) use of insulin (5) Insulin dependent type 2 diabetes mellitus: (6) Hyponatremia: Plan This is a 64-year-old white female who presented with reports of medication refusal, psychosis and other concerns at her residential facility with a history of a CVA and a baseline expressive aphasia secondary to said CVA history of depression and anxiety but denying any lethality. 1. Continue current medication. 2. Patient has improved during her stay and is now absent credible lethality. 3. She appears to be at baseline without new or acute current psychiatric concerns. Would agree with discharge to home once medically cleared. Attestations NPU 2 Medical Necessity Statement*: N/A. Please see primary team note for medical necessity but agree with discharge back to facility. Coding Level of Care Code Acute Code for Chg Fwd Diagnoses Lives in assisted living facility Z59.3 Anxiety and depression F41.9; F32.A Paranoid F22 Type 2 diabetes mellitus with diabetic neuropathy, with long-term current use of insulin E11.40; Z79.4 Diabetes mellitus type: type 2 Diabetes mellitus intermediate teacher insulin use: with correction use Insulin dependent type 2 diabetes mellitus E11.9; Z79.4 Hyponatremia E87.1
[2024-07-21 16:00] VITALS: BP 158/71; PULSE 58; RESP 18; TEMP 36.3; O2SAT 99
[2024-07-21 17:48] LABS: Glucose Point of Care 236 mg/dL (70-110)
[2024-07-21 19:07] VITALS: BP 133/56; PULSE 71; RESP 12; TEMP 37; O2SAT 100
[2024-07-21 20:44] LABS: Glucose Point of Care 222 mg/dL (70-110)
[2024-07-21] MEDS: OLANZapine 5 mg TABLET PO (20:45)
[2024-07-22] VITALS (9 sets, daily range): BP systolic 97–157; BP diastolic 54–70; PULSE 60–86; RESP 16–27; TEMP 36.4–37; O2SAT 95–100
[2024-07-22 03:42] LABS: Basophils # 0.1 10^3/uL (0.0-0.1); Basophils % 0.7 %; Eosinophils # 0.6 10^3/uL (0.0-0.8); Eosinophils % 5.9 %; Hematocrit 31.9 % (36-47); Lymphocytes % 9.6 %; Mean Corpuscular HGB Conc 30.7 g/dL (30-55); Mean Corpuscular Hemoglobin 26.6 pg (27-33); Mean Corpuscular Volume 86.7 fl (85-98); Mean Platelet Volume 9.2 fL (7.4-10.4); Monocytes # 0.9 10^3/uL (0.2-0.9); Monocytes % 8.1 %; Neutrophils # 7.89 10^3/uL (1.8-7.7); Neutrophils % 75.2 %; Nucleated Red Blood Cells % 0 %; Platelet Count 256 10^3/cmm (157-399); Red Blood Count 3.68 10^6/uL (3.85-5.65); Red Cell Distribution Width 15.7 % (12.1-15.1); White Blood Count 10.49 10^3/uL (3.29-11.43)
[2024-07-22 04:03] LABS: Alanine Aminotransferase 24 U/L (0-33); Albumin Level 3.1 g/dL (3.5-5.2); Alkaline Phosphatase 114 U/L (35-105); Anion Gap 19.4 (5-19); Aspartate Amino Transferase 24 U/L (0-32); Blood Urea Nitrogen 63 mg/dL (8-23); Calcium 8.5 mg/dL (8.5-10.5); Carbon Dioxide 24 mmol/L (22-29); Chloride 101 mmol/L (98-107); Creatinine Clr Calc Pharmacy 23.7198; Globulin 2.9 g/dL (1.3-4.6); Glomerular Filtration Rate 15.1 mL/min (90-130); Glucose 196 mg/dL (65-115); Magnesium 1.8 mg/dL (1.7-2.3); Osmolality Calculated 313 mOsm/kg (285-295); Phosphorus 5.4 mg/dL (2.5-4.5); Potassium 4.4 mmol/L (3.5-5.1); Sodium 140 mmol/L (136-145); Total Bilirubin 0.2 mg/dL (0.15-1.2)
[2024-07-22 04:26] LABS: NT Pro B Type Natriuretic Pept 1423 pg/mL (0-125)
[2024-07-22] MEDS: hyDRALAzine 10 mg Tablet PO ×3 (05:40→20:36)
[2024-07-22] MEDS: buPROPion XL (24 HR) 150 mg Tablet PO (05:40)
[2024-07-22 06:33] LABS: Glucose Point of Care 222 mg/dL (70-110)
[2024-07-22] MEDS: allopurinol 300 mg Tablet PO (08:42)
[2024-07-22] MEDS: duloxetine 60 mg Capsule PO (08:42)
[2024-07-22] MEDS: amoxicillin-clav 875-125 mg Tablet 1 TAB PO ×2 (08:42→17:30)
[2024-07-22] MEDS: clopidogrel 75 mg Tablet PO (08:42)
[2024-07-22] MEDS: risperiDONE 1 mg Tablet PO (08:42)
[2024-07-22] MEDS: amlodipine 10 mg Tablet PO (08:43)
[2024-07-22] MEDS: insulin glargine 100 units/1 mL 15 UNIT SUBCUT ×2 (08:43→17:30)
[2024-07-22] MEDS: pantoprazole 40 mg SDV IVP (08:43)
[2024-07-22] MEDS: lamoTRIgine 100 mg Tablet PO ×3 (08:43→20:36)
[2024-07-22] MEDS: insulin lispro 100 unit/1 mL SUBCUT ×4 (08:44→22:06)
[2024-07-22 11:41] LABS: Glucose Point of Care 292 mg/dL (70-110)
[2024-07-22] MEDS: heparin 5,000 unit/mL INJ 1 mL 5000 UNIT SUBCUT ×2 (11:41→22:06)
--- NOTE | 2024-07-22 12:23 | P.PN_ITS ---
Subjective 2 Subjective: Patient was seen this morning, she is in bed, does have a cough, tested positive for rhinovirus yesterday no fevers, no chills Vitals/I&O/Wt Last Vital Signs Temp 98.0 F 07/22/24 11:48 Pulse 60 07/22/24 11:48 Resp 16 07/22/24 11:48 BP 145/70 07/22/24 11:48 Pulse Ox 95 07/22/24 11:48 O2 Del Method Nasal Cannula 07/22/24 11:48 O2 Flow Rate 2 07/22/24 11:48 07/21/24 07/22/24 07/22/24 22:59 06:59 14:59 Intake Total 360 / 3010 480 / 3490 240 / 240 Output Total 1250 / 2000 Balance -890 / 1010 480 / 1490 240 / 240 Weight last 48 hrs Weight 119.386 kg Weight 119.386 kg Physical Exam 2 Const: COMMON NORMALS: no acute distress ORIENTATION/CONSCIOUSNESS: Yes awake, Yes oriented to person and Yes oriented to place Resp: COMMON NORMALS: normal respiratory effort, No retractions, No use of accessory muscles and clear to auscultation bilaterally AUSCULTATION: clear to auscultation bilaterally Cardio: COMMON NORMALS: regular rate, regular rhythm, S1 normal heart sound present and S2 normal heart sound present RATE: regular rate RHYTHM: r egular rhythm HEART SOUNDS: S1 normal heart sound present and S2 normal heart sound present GI: COMMON NORMALS: Normal to inspection, nondistended, normoactive bowel sounds present Extremity: COMMON NORMALS: no pedal edema Neuro: SENSORIUM/ORIENTATION: Yes oriented to person and Yes oriented to place Urinary Catheter Management: Kent: Cath Placed During This Visit: yes Reason for Continuing Indwelling Catheter: Accurate Measurement of Urinary Output in Critically Ill Patients Urinary Catheter Date of Insertion: 07/16/24 Urinary Catheter Time of Insertion: 10:26 Data 07/22/24 03:19 07/22/24 03:19 Micro: Microbiology 07/18/24 21:15 Gram Stain - Final Sputum - Expectorated Sputum Sputum Culture - Final 07/16/24 15:12 Blood Culture - Final Blood NO GROWTH AFTER 5 DAYS 07/16/24 15:10 Blood Culture - Final Blood NO GROWTH AFTER 5 DAYS A&P Assessment and plan (1) CHF (congestive heart failure): (2) Insulin dependent type 2 diabetes mellitus: (3) DELORIS (acute kidney injury): (4) Pneumonia: (5) Acute encephalopathy: Plan Acute encephalopathy, resolved -History of depression, paranoia, CVA, dysphagia secondary to CVA -Now with pneumonia -Neurochecks -NIH stroke scale -Aspiration precautions -Monitor mentation closely -Can use Haldol as needed for agitation Agitation, none during my examination has been quite pleasant, follows commands, ? Patient was placed on Zyprexa 5 mg at bedtime ? Continue for Lamictal 100 mg 3 times daily ? Continue Risperdal 1 mg p.o. every morning Continue Wellbutrin Pneumonia resolving -With leukocytosis, with bilateral lung opacities -De-escalate to Augmentin -DuoNeb as needed Positive for rhinovirus, continue isolation, asymptomatic Acute systolic CHF exacerbation -With bilateral extreme edema, elevated BNP, crackles on examination -Monitor creatinine monitor potassium -Ending up to 3.1 hold Lasix therapy recheck BMP this afternoon -Cardiac echo CONCLUSIONS LV systolic function is normal with EF of 50-55%. Grade 1 diatsolic dysfunction Left atrial dilation Moderate mitral stenosis. Mild kathleen regurgitation Mild aortic stenosis with aortic valve area of 2.1cm2 and mean gradient of 12mmHg. Mild tricuspid regurgitation. Compared to prior echocardiogram from 2020, patient now has moderate mitral stenosis and mild aortic stenosis. Also has grade 1 diastolic dysfunction. Acute kidney injury -Monitor urine output, monitor creatinine, place Kent catheter US/US renal BI* [id number] IMPRESSION: 1. Limited ultrasound evaluation of the kidneys due to body habitus. 2. Kidneys are normal size. No hydronephrosis. Type 2 diabetes mellitus # Moderate dose sliding scale -Lantus 15 units twice daily NSTEMI -Continue Plavix, statin -Cardiac echo as above * Full code ? Heparin for DVT prophylaxis Plan monitor mentation, monitor creatinine, holding Lasix as creatinine is up to 3.1 Attestations 2 Medical Necessity Statement*: Patient requires hospitalization for fluid overload, HF which is resolving now with DELORIS, Diagnoses CHF (congestive heart failure) I50.9 Insulin dependent type 2 diabetes mellitus E11.9; Z79.4 DELORIS (acute kidney injury) N17.9 Pneumonia J18.9 Acute encephalopathy G93.40
--- NOTE | 2024-07-22 13:50 | PC.NURSE ---
Provider is notified that patient is requesting something for her irritated throat. Provider ordered tessalon perles 100mg tid PRN. Order entered.
[2024-07-22] MEDS: benzonatate 100 mg Capsule PO (14:01)
[2024-07-22 15:16] LABS: Anion Gap 17.6 (5-19); Blood Urea Nitrogen 63 mg/dL (8-23); Calcium 8.9 mg/dL (8.5-10.5); Carbon Dioxide 23 mmol/L (22-29); Chloride 97 mmol/L (98-107); Creatinine Clr Calc Pharmacy 20.4254; Glomerular Filtration Rate 12.7 mL/min (90-130); Glucose 243 mg/dL (65-115); Osmolality Calculated 302 mOsm/kg (285-295); Potassium 4.6 mmol/L (3.5-5.1); Sodium 133 mmol/L (136-145)
[2024-07-22 17:02] LABS: Glucose Point of Care 278 mg/dL (70-110)
[2024-07-22] MEDS: sodium chloride 0.9% 1,000 ML 75 ML IV (17:48)
[2024-07-22 20:34] LABS: Glucose Point of Care 241 mg/dL (70-110)
[2024-07-22] MEDS: OLANZapine 5 mg TABLET PO (20:36)
[2024-07-23] VITALS (7 sets, daily range): BP systolic 131–163; BP diastolic 51–75; PULSE 66–82; RESP 16–26; TEMP 36.4–37.2; O2SAT 95–99
--- NOTE | 2024-07-23 04:49 | P.DS_ITS ---
Discharge Providers Date of Admission: 07/15/24 19:33 Date of Discharge: July 23, 2024 Attending Provider at Admission: Patel Jones MD Attending Provider at Discharge: Raad Chung MD Primary Care Provider: Benigno Jennings DO Diagnoses at Discharge Discharge Diagnosis (1) CHF (congestive heart failure): Status: Acute (2) Insulin dependent type 2 diabetes mellitus: Status: Chronic (3) DELORIS (acute kidney injury): Status: Acute (4) Pneumonia: Status: Acute (5) Acute encephalopathy: Status: Acute Reason for Visit Reason for Visit: behav. ams Physical Exam Urinary Catheter Management: Kent: Cath Placed During This Visit: yes Reason for Continuing Indwelling Catheter: Accurate Measurement of Urinary Output in Critically Ill Patients Urinary Catheter Date of Insertion: 07/16/24 Urinary Catheter Time of Insertion: 10:26 Discharge Data Studies Completed and Pending Completed Studies During Hospitalization Category Date Time Status CT head wo con* [id number] Stat Cat Scan 07/15/24 16:50 Completed XR chest 1V portable [id number] Routine Exams 07/21/24 10:10 Completed XR chest 1V portable [id number] Stat Exams 07/15/24 16:50 Completed CV. echo complete* [id number] Routine Ultrasound 07/16/24 06:00 Completed US renal BI* [id number] Routine Ultrasound 07/16/24 01:08 Completed Pending at discharge Category Date Time Status Sestamibi Stress Test Request Routine Exams 07/15/24 22:51 Stop Req Basic Metabolic Panel AM LABS Lab 07/23/24 04:00 Ordered Basic Metabolic Panel AM LABS Lab 07/24/24 04:00 Ordered Basic Metabolic Panel AM LABS Lab 07/25/24 04:00 Ordered Complete Blood Count w/Auto AM LABS Lab 07/23/24 04:00 Ordered Complete Blood Count w/Auto AM LABS Lab 07/24/24 04:00 Ordered Complete Blood Count w/Auto AM LABS Lab 07/25/24 04:00 Ordered NT Pro B Type Natriuretic Pept QAM Lab 07/23/24 04:00 Ordered NT Pro B Type Natriuretic Pept QAM Lab 07/24/24 06:00 Ordered NT Pro B Type Natriuretic Pept QAM Lab 07/25/24 06:00 Ordered Urinalysis Routine Lab 07/21/24 10:10 Uncollected Radiology Impressions Head CT 07/15/24 16:50 IMPRESSION: No acute intracranial findings. Renal Ultrasound 07/16/24 01:08 IMPRESSION: 1. Limited ultrasound evaluation of the kidneys due to body habitus. 2. Kidneys are normal size. No hydronephrosis. Chest X-Ray 07/21/24 10:10 IMPRESSION: 1. Mild cardiomegaly. Laboratory Results WBC 10.49 10^3/uL (3.29-11.43) 07/22/24 03:19 RBC 3.68 10^6/uL (3.85-5.65) L 07/22/24 03:19 Hgb 9.80 g/dL (11.27-16.99) L 07/22/24 03:19 Hct 31.9 % (36-47) L 07/22/24 03:19 MCV 86.7 fl (85-98) 07/22/24 03:19 MCH 26.6 pg (27-33) L 07/22/24 03:19 MCHC 30.7 g/dL (30-55) 07/22/24 03:19 RDW 15.7 % (12.1-15.1) H 07/22/24 03:19 Plt Count 256 10^3/cmm (157-399) 07/22/24 03:19 MPV 9.2 fL (7.4-10.4) 07/22/24 03:19 Neut % (Auto) 75.2 % 07/22/24 03:19 Lymph % (Auto) 9.6 % 07/22/24 03:19 [place] % (Auto) 8.1 % 07/22/24 03:19 Eos % (Auto) 5.9 % 07/22/24 03:19 Baso % (Auto) 0.7 % 07/22/24 03:19 Neut # (Auto) 7.89 10^3/uL (1.8-7.7) H 07/22/24 03:19 Lymph # (Auto) 1.0 10^3/uL (0.8-4.8) 07/22/24 03:19 [place] # (Auto) 0.9 10^3/uL (0.2-0.9) 07/22/24 03:19 Eos # (Auto) 0.6 10^3/uL (0.0-0.8) 07/22/24 03:19 Baso # (Auto) 0.1 10^3/uL (0.0-0.1) 07/22/24 03:19 Nucleated RBC % (auto) 0 % 07/22/24 03:19 Nucleated RBCs # 0.0 /100WBC 07/22/24 03:19 Sodium 133 mmol/L (136-145) L 07/22/24 14:47 Potassium 4.6 mmol/L (3.5-5.1) 07/22/24 14:47 Chloride 97 mmol/L (98-107) L 07/22/24 14:47 Carbon Dioxide 23 mmol/L (22-29) 07/22/24 14:47 Anion Gap 17.6 (5-19) 07/22/24 14:47 BUN 63 mg/dL (8-23) H 07/22/24 14:47 Creatinine 3.6 mg/dL (0.5-0.9) H 07/22/24 14:47 GFR Calculation 12.7 mL/min (90-130) L 07/22/24 14:47 Glucose 243 mg/dL (65-115) H 07/22/24 14:47 POC Glucose 241 mg/dL (70-110) H 07/22/24 20:23 Calculated Osmolality 302 mOsm/kg (285-295) H 07/22/24 14:47 Calcium 8.9 mg/dL (8.5-10.5) 07/22/24 14:47 Phosphorus 5.4 mg/dL (2.5-4.5) H 07/22/24 03:19 Magnesium 1.8 mg/dL (1.7-2.3) 07/22/24 03:19 Iron 25 ug/dL (37-145) L 07/15/24 17:10 TIBC 233 mcg/dl 07/15/24 17:10 % Saturation 10.7 % (20-50) L 07/15/24 17:10 Unsat Iron Binding 208 ug/dL (112-347) 07/15/24 17:10 Total Bilirubin 0.2 mg/dL (0.15-1.2) 07/22/24 03:19 AST 24 U/L (0-32) 07/22/24 03:19 ALT 24 U/L (0-33) 07/22/24 03:19 Alkaline Phosphatase 114 U/L (35-105) H 07/22/24 03:19 Troponin T Baseline 66 ng/L (0-10) H 07/15/24 17:10 Troponin T 120 Minute 59.95 ng/L (0-10) H 07/15/24 20:45 Delta Troponin T -6.05 ABS# (0-10) L 07/15/24 20:45 Troponin T Hi Sens 6Hr 64.85 ng/L (0-10) H 07/16/24 00:20 Troponin T Hi Sens 6Hr Delta -1.15 ng/L (0-12) L 07/16/24 00:20 C-Reactive Protein 17.5 mg/L (0.0-4.9) H 07/21/24 02:39 NT-Pro-B Natriuret Pep 1423 pg/mL (0-125) H 07/22/24 03:19 Total Protein 6.0 g/dL (6.6-8.7) L 07/22/24 03:19 Albumin 3.1 g/dL (3.5-5.2) L 07/22/24 03:19 Globulin 2.9 g/dL (1.3-4.6) 07/22/24 03:19 Procalcitonin 0.21 ng/mL (0-0.5) 07/21/24 02:39 TSH 3.51 uIU/mL (0.27-4.20) 07/15/24 17:10 Urine Color Yellow (Yellow) 07/15/24 18:35 Urine Appearance Clear (CLEAR) 07/15/24 18:35 Urine pH 6.5 (5-7) 07/15/24 18:35 Ur Specific [place] 1.017 (1.005-1.030) 07/15/24 18:35 Urine Protein 4+ (Negative) A 07/15/24 18:35 Urine Glucose (UA) Trace (Normal) H 07/15/24 18:35 Urine Ketones Negative (Negative) 07/15/24 18:35 Urine Blood 1+ (Negative) A 07/15/24 18:35 Urine Nitrate Negative (Negative) 07/15/24 18:35 Urine Bilirubin Negative (Negative) 07/15/24 18:35 Urine Urobilinogen 1.0 mg/dL (Negative) 07/15/24 18:35 Ur Leukocyte Esterase Negative (Negative) 07/15/24 18:35 Urine RBC 0-2 /hpf (0-2) 07/15/24 18:35 Urine WBC 0-5 /hpf (0-5) 07/15/24 18:35 Ur Squamous Epith Cells 0-5 /hpf (0-5) 07/15/24 18:35 Amorphous Sediment Not Reportable 07/15/24 18:35 Urine Bacteria None /hpf (NONE) 07/15/24 18:35 Hyaline Casts 2.87 /lpf 07/15/24 18:35 Salicylates 0.7 mg/dL (3-10) L 07/15/24 17:10 Urine Opiates Screen Negative ng/mL (Negative) 07/15/24 18:35 Acetaminophen < 5.0 ug/mL (10-30) L 07/15/24 17:10 Ur Barbiturates Screen Negative ng/mL (Negative) 07/15/24 18:35 Ur Phencyclidine Scrn Negative ng/mL (Negative) 07/15/24 18:35 Ur Amphetamines Screen Negative ng/mL (Negative) 07/15/24 18:35 U Benzodiazepines Scrn Negative ng/mL (Negative) 07/15/24 18:35 Urine Cocaine Screen Negative ng/mL (Negative) 07/15/24 18:35 U Marijuana (THC) Screen Negative ng/mL (Negative) 07/15/24 18:35 Ethyl Alcohol < 10 mg/dL (0-10) 07/15/24 17:10 Adenovirus (PCR) Not detected (NOT DETECT) 07/21/24 10:45 C. pneumoniae DNA (PCR) Not detected (NOT DETECT) 07/21/24 10:45 Coronavirus (PCR) Negative (Negative) 07/15/24 18:35 Coronavirus 229E (PCR) Not detected (NOT DETECT) 07/21/24 10:45 Human Metapneumovir PCR Not detected (NOT DETECT) 07/21/24 10:45 Influenza A (H1) PCR Not detected (NOT DETECT) 07/21/24 10:45 Influenza A (PCR) Negative (Negative) 07/15/24 18:35 Influ A (H1/09) PCR Not detected (NOT DETECT) 07/21/24 10:45 Influenza A (H3) PCR Not detected (NOT DETECT) 07/21/24 10:45 Influenza Type A (PCR) Not detected (NOT DETECT) 07/21/24 10:45 Influenza Type B (PCR) Not detected (NOT DETECT) 07/21/24 10:45 M. pneumoniae (PCR) Not detected (NOT DETECT) 07/21/24 10:45 Parainfluenza 1 (PCR) Not detected (NOT DETECT) 07/21/24 10:45 Parainfluenza 2 (PCR) Not detected (NOT DETECT) 07/21/24 10:45 Parainfluenza 3 (PCR) Not detected (NOT DETECT) 07/21/24 10:45 Parainfluenza 4 (PCR) Not detected (NOT DETECT) 07/21/24 10:45 RSV (PCR) Negative (Negative) 07/15/24 18:35 RSV Type A (PCR) Not detected (NOT DETECT) 07/21/24 10:45 RSV Type B (PCR) Not detected (NOT DETECT) 07/21/24 10:45 Entero/Rhino (PCR) Detected (NOT DETECT) A 07/21/24 10:45 SARS-CoV-2 (PCR) Not detected (NOT DETECT) 07/21/24 10:45 Vitals Last Vital Signs Temp 98.9 F 07/23/24 04:00 Pulse 77 07/23/24 04:00 Resp 16 07/23/24 04:00 BP 131/51 07/23/24 04:00 Pulse Ox 98 07/23/24 04:00 O2 Del Method Nasal Cannula 07/23/24 04:00 O2 Flow Rate 2 07/22/24 11:48 Discharge Plan Discharge Patient Disposition: Home Condition: Stable Prescriptions: New hydralazine 10 mg Tablet 10 mg PO Q8H 30 Days Qty: 90 0RF amlodipine 10 mg Tablet 10 mg PO DAILY 30 Days Qty: 30 0RF amoxicillin-pot clavulanate 875-125 mg Tablet 1 tab PO BID 5 Days Qty: 10 0RF olanzapine 5 mg Tablet 5 mg PO BEDTIME 30 Days Qty: 30 0RF duloxetine 60 mg Capsule,Delayed Release(Dr/Ec) 60 mg PO DAILY 30 Days Qty: 30 0RF Continued (DME) Dexcom G7 Sensor Device See Rx Instructions .Route Qty: 1 0RF Rx Instructions: As directed (DME) Dexcom G7 Metal Off Bearer Misc See Rx Instructions .Route Qty: 1 6RF Rx Instructions: As directed allopurinol 300 mg tablet 300 mg PO DAILY Qty: 90 0RF potassium chloride 10 mEq capsule, extended release 10 meq PO DAILY Qty: 30 11RF tramadol 50 mg tablet 50 mg PO Q6H PRN (Reason: pain) Qty: 120 5RF atorvastatin 40 mg tablet 40 mg PO DAILY cetirizine 10 mg Tablet 10 mg PO DAILY magnesium hydroxide [Milk of Magnesia] 400 mg/5 mL Suspension 30 ml PO DAILY PRN (Reason: Constipation) calcium carbonate 500 mg calcium (1,250 mg) Tablet,Chewable 500 mg PO Q8H PRN (Reason: gastro-esophageal reflux) acetaminophen [Tylenol] 325 mg Tablet 650 mg PO Q6H PRN (Reason: PAIN OR ELEVATED TEMP) omeprazole 20 mg Capsule,Delayed Release(Dr/Ec) 20 mg PO DAILY clopidogrel 75 mg tablet 75 mg PO DAILY metoprolol tartrate 25 mg tablet 37.5 mg PO BID furosemide 40 mg tablet 40 mg PO QAM ondansetron HCl 4 mg tablet 4 mg PO Q6H PRN (Reason: Nausea And Vomiting) ascorbic acid (vitamin C) [Vitamin C] 500 mg tablet 500 mg PO DAILY diphenhydramine HCl [Banophen] 25 mg Capsule 25 mg PO Q12H PRN (Reason: Allergy Symptoms) lidocaine 5 % Adhesive Patch,Medicated 1 patch TOPICAL Q12H PRN (Reason: Pain) Rx Instructions: leave on most painful area for up to 12 hrs fluticasone propionate 50 mcg/actuation spray,suspension 1 spray INTRANASAL Q12H PRN (Reason: ALLERGIES) risperidone 1 mg Tablet 1 mg PO QAM lamotrigine 100 mg Tablet 100 mg PO TID bupropion HCl 150 mg Tablet Extended Release 24 Hr 150 mg PO QAM eszopiclone 3 mg tablet 3 mg PO QPM melatonin 10 mg Tablet 10 mg PO QPM Changed insulin aspart U-100 [Novolog FlexPen U-100 Insulin] 100 unit/mL (3 mL) insulin pen See Rx Instructions .ROUTE .COMPLEX Qty: 15 0RF Rx Instructions: Inject, subcut, 3 times daily, after meals, based on sliding scale provided insulin glargine [Lantus Solostar U-100 Insulin] 100 unit/mL (3 mL) insulin pen 20 unit SUBCUT BID 30 Days Qty: 12 0RF Discontinued lisinopril 40 mg tablet 40 mg PO DAILY risperidone 0.5 mg Tablet 0.5 mg PO QPM duloxetine 30 mg Capsule,Delayed Release(Dr/Ec) 30 mg PO DAILY Referrals: Benigno Jennings, [Primary Care Provider] - Discharge Diet: Cardiac Discharge Activity: Resume usual activity Patient Instructions: Opioid Safety Activity Restrictions/Additional Instructions: -recheck cr in one week -Please monitor your blood sugars closely -Monitor your blood sugars 3 times daily as after meals -Please record your blood sugars, and a blood sugar log -For your NovoLog -Please inject blood sugar after meals based on sliding scale provided -Do not inject insulin if you do not eat as hypoglycemia kills -This is a NovoLog sliding scale -Insulin sliding ?fingerstick? Insulin ?141-180?2 units/sq 181-220?4 units/sq ?221-260?6 units/sq ?261-300 8 units/sq ?301-350?10 units/sq ?351-400 12 units/sq ?401-450?14 units/sq >450? 16 units/sq -If your blood sugar is greater than 500 go to the emergency room -If your blood sugar is less than 60 or at anytime you feel lightheaded or dizzy or diaphoretic or have chest palpitations check your blood sugar, and eat a hard candy or drink orange juice and go immediately to the emergency room -Remember hypoglycemia kills, so if his blood sugar is less than 60 we have to increase it by taking in a sugary meal such as a hard candy or orange juice and go to the emergency room -If you have any questions please call us where here to help Discharge Attestations Status at Discharge: Cognitive status at discharge: cognitively intact , Behavioral status at discharge: cooperative , Coding Level of Care Code Acute Code for [facility] Fwd Diagnoses CHF (congestive heart failure) I50.9 Insulin dependent type 2 diabetes mellitus E11.9; Z79.4 DELORIS (acute kidney injury) N17.9 Pneumonia J18.9 Acute encephalopathy G93.40
[2024-07-23] MEDS: hyDRALAzine 10 mg Tablet PO ×3 (05:55→21:42)
[2024-07-23] MEDS: buPROPion XL (24 HR) 150 mg Tablet PO (05:55)
[2024-07-23 06:51] LABS: Glucose Point of Care 219 mg/dL (70-110)
[2024-07-23 07:43] LABS: Basophils # 0.1 10^3/uL (0.0-0.1); Basophils % 0.7 %; Eosinophils # 0.7 10^3/uL (0.0-0.8); Eosinophils % 5.9 %; Hematocrit 30.1 % (36-47); Lymphocytes # 0.8 10^3/uL (0.8-4.8); Lymphocytes % 6.4 %; Mean Corpuscular HGB Conc 30.2 g/dL (30-55); Mean Corpuscular Hemoglobin 26.2 pg (27-33); Mean Corpuscular Volume 86.7 fl (85-98); Mean Platelet Volume 9.4 fL (7.4-10.4); Monocytes % 8.8 %; Neutrophils # 9.04 10^3/uL (1.8-7.7); Neutrophils % 77.7 %; Nucleated Red Blood Cells % 0 %; Platelet Count 230 10^3/cmm (157-399); Red Blood Count 3.47 10^6/uL (3.85-5.65); Red Cell Distribution Width 15.8 % (12.1-15.1); White Blood Count 11.65 10^3/uL (3.29-11.43)
[2024-07-23 08:11] LABS: Anion Gap 16.5 (5-19); Blood Urea Nitrogen 73 mg/dL (8-23); Calcium 8.9 mg/dL (8.5-10.5); Carbon Dioxide 24 mmol/L (22-29); Chloride 99 mmol/L (98-107); Creatinine Clr Calc Pharmacy 18.8542; Glomerular Filtration Rate 11.6 mL/min (90-130); Glucose 220 mg/dL (65-115); NT Pro B Type Natriuretic Pept 977 pg/mL (0-125); Osmolality Calculated 308 mOsm/kg (285-295); Potassium 4.5 mmol/L (3.5-5.1); Sodium 135 mmol/L (136-145)
--- NOTE | 2024-07-23 08:18 | P.PN_ITS ---
Subjective 2 Subjective: Patient was seen this morning, she is alert oriented to person, to place, to time she follows all commands denies any chest pain, palpitations, Vitals/I&O/Wt Last Vital Signs Temp 98.0 F 07/23/24 07:49 Pulse 75 07/23/24 07:49 Resp 26 H 07/23/24 07:49 BP 155/70 07/23/24 07:49 Pulse Ox 95 07/23/24 07:49 O2 Del Method Nasal Cannula 07/23/24 07:49 O2 Flow Rate 2 07/22/24 11:48 07/22/24 07/23/24 07/23/24 22:59 06:59 14:59 Intake Total 240 / 840 140 / 980 Output Total 200 / 200 1400 / 1600 Balance 40 / 640 -1260 / -620 Weight last 48 hrs Weight 119.386 kg Weight 119.386 kg Weight 119.386 kg Physical Exam 2 Const: COMMON NORMALS: no acute distress Resp: COMMON NORMALS: normal respiratory effort, No retractions, No use of accessory muscles and clear to auscultation bilaterally AUSCULTATION: clear to auscultation bilaterally Cardio: COMMON NORMALS: regular rate, regular rhythm, S1 normal heart sound present and S2 normal heart sound present RATE: regular rate RHYTHM: r egular rhythm HEART SOUNDS: S1 normal heart sound present and S2 normal heart sound present GI: COMMON NORMALS: Normal to inspection, nondistended, normoactive bowel sounds present and non-tender Extremity: COMMON NORMALS: no pedal edema Psych: COMMON NORMALS: mental status grossly normal Urinary Catheter Management: Kent: Cath Placed During This Visit: yes, but has since been removed by the nurse Reason for Continuing Indwelling Catheter: Accurate Measurement of Urinary Output in Critically Ill Patients Urinary Catheter Date of Insertion: 07/16/24 Urinary Catheter Time of Insertion: 10:26 Date Urinary Catheter Removed: 07/23/24 Time Urinary Catheter Discontinued: 07:41 Data 07/23/24 07:26 07/23/24 07:26 A&P Assessment and plan (1) CHF (congestive heart failure): (2) Insulin dependent type 2 diabetes mellitus: (3) DELORIS (acute kidney injury): (4) Pneumonia: (5) Acute encephalopathy: Plan Acute encephalopathy, resolved -History of depression, paranoia, CVA, dysphagia secondary to CVA -Now with pneumonia -Neurochecks -NIH stroke scale -Aspiration precautions -Monitor mentation closely -Can use Haldol as needed for agitation Agitation, none during my examination has been quite pleasant, follows commands, ? Patient was placed on Zyprexa 5 mg at bedtime ? Continue for Lamictal 100 mg 3 times daily ? Continue Risperdal 1 mg p.o. every morning Continue Wellbutrin Pneumonia resolving -With leukocytosis, with bilateral lung opacities -De-escalate to Augmentin -DuoNeb as needed Positive for rhinovirus, continue isolation, asymptomatic Acute systolic CHF exacerbation -With bilateral extreme edema, elevated BNP, crackles on examination -Monitor creatinine monitor potassium -Ending up to 3.9 hold Lasix therapy, IV fluids -Cardiac echo CONCLUSIONS LV systolic function is normal with EF of 50-55%. Grade 1 diatsolic dysfunction Left atrial dilation Moderate mitral stenosis. Mild kathleen regurgitation Mild aortic stenosis with aortic valve area of 2.1cm2 and mean gradient of 12mmHg. Mild tricuspid regurgitation. Compared to prior echocardiogram from 2019, patient now has moderate mitral stenosis and mild aortic stenosis. Also has grade 1 diastolic dysfunction. Acute kidney injury -Monitor urine output, monitor creatinine, place Kent catheter US/US renal BI* [id number] IMPRESSION: 1. Limited ultrasound evaluation of the kidneys due to body habitus. 2. Kidneys are normal size. No hydronephrosis. -Ending up to 3.9, IV fluids holding nephrotoxic agents Type 2 diabetes mellitus # Moderate dose sliding scale -Lantus 15 units twice daily NSTEMI -Continue Plavix, statin -Cardiac echo as above * Full code ? Heparin for DVT prophylaxis Plan monitor DELORIS, creatinine up to 3.9, IV fluids, Attestations 2 Medical Necessity Statement*: Patient requires hospitalization for DELORIS, creatinine up to 3.9, requiring IV fluids Diagnoses CHF (congestive heart failure) I50.9 Insulin dependent type 2 diabetes mellitus E11.9; Z79.4 DELORIS (acute kidney injury) N17.9 Pneumonia J18.9 Acute encephalopathy G93.40
[2024-07-23] MEDS: insulin glargine 100 units/1 mL 15 UNIT SUBCUT ×2 (08:47→17:36)
[2024-07-23] MEDS: insulin lispro 100 unit/1 mL SUBCUT ×4 (08:47→21:43)
[2024-07-23] MEDS: pantoprazole 40 mg SDV IVP (08:48)
[2024-07-23] MEDS: amlodipine 10 mg Tablet PO (08:48)
[2024-07-23] MEDS: amoxicillin-clav 875-125 mg Tablet 1 TAB PO ×2 (08:48→17:36)
[2024-07-23] MEDS: clopidogrel 75 mg Tablet PO (08:48)
[2024-07-23] MEDS: allopurinol 300 mg Tablet PO (08:48)
[2024-07-23] MEDS: duloxetine 60 mg Capsule PO (08:48)
[2024-07-23] MEDS: risperiDONE 1 mg Tablet PO (08:48)
[2024-07-23] MEDS: lamoTRIgine 100 mg Tablet PO ×3 (08:48→21:42)
--- NOTE | 2024-07-23 11:01 | PC.SOCIAL ---
IMM Updated Updated pt's guardian on IMM. No questions voiced. Provided pt a copy. Initialed, dated, & timed copy in chart.
[2024-07-23 11:56] LABS: Glucose Point of Care 266 mg/dL (70-110)
[2024-07-23] MEDS: heparin 5,000 unit/mL INJ 1 mL 5000 UNIT SUBCUT ×2 (12:02→21:43)
[2024-07-23 12:35] LABS: Anion Gap 18.4 (5-19); Blood Urea Nitrogen 74 mg/dL (8-23); Calcium 9.2 mg/dL (8.5-10.5); Carbon Dioxide 22 mmol/L (22-29); Chloride 97 mmol/L (98-107); Creatinine Clr Calc Pharmacy 19.3503; Glucose 260 mg/dL (65-115); Osmolality Calculated 307 mOsm/kg (285-295); Potassium 4.4 mmol/L (3.5-5.1); Sodium 133 mmol/L (136-145)
[2024-07-23 17:33] LABS: Glucose Point of Care 274 mg/dL (70-110)
[2024-07-23 20:53] LABS: Glucose Point of Care 320 mg/dL (70-110)
[2024-07-23] MEDS: OLANZapine 5 mg TABLET PO (21:42)
[2024-07-23] MEDS: benzonatate 100 mg Capsule PO (22:27)
[2024-07-24] VITALS: BP 163/71; PULSE 81; RESP 22; TEMP 36.9; O2SAT 98
[2024-07-24 02:54] LABS: Basophils # 0.1 10^3/uL (0.0-0.1); Basophils % 0.6 %; Eosinophils # 0.7 10^3/uL (0.0-0.8); Eosinophils % 6.6 %; Hematocrit 28.6 % (36-47); Lymphocytes # 0.9 10^3/uL (0.8-4.8); Lymphocytes % 8.2 %; Mean Corpuscular HGB Conc 30.4 g/dL (30-55); Mean Corpuscular Hemoglobin 26.7 pg (27-33); Mean Corpuscular Volume 87.7 fl (85-98); Mean Platelet Volume 9.9 fL (7.4-10.4); Monocytes # 1.2 10^3/uL (0.2-0.9); Monocytes % 10.9 %; Neutrophils # 7.97 10^3/uL (1.8-7.7); Neutrophils % 73.1 %; Nucleated Red Blood Cells % 0 %; Platelet Count 237 10^3/cmm (157-399); Red Blood Count 3.26 10^6/uL (3.85-5.65); Red Cell Distribution Width 15.9 % (12.1-15.1); White Blood Count 10.89 10^3/uL (3.29-11.43)
[2024-07-24 03:16] LABS: Anion Gap 15.7 (5-19); Blood Urea Nitrogen 80 mg/dL (8-23); Calcium 9.1 mg/dL (8.5-10.5); Carbon Dioxide 23 mmol/L (22-29); Chloride 99 mmol/L (98-107); Creatinine Clr Calc Pharmacy 19.8733; Glomerular Filtration Rate 12.3 mL/min (90-130); Glucose 226 mg/dL (65-115); NT Pro B Type Natriuretic Pept 1096 pg/mL (0-125); Osmolality Calculated 307 mOsm/kg (285-295); Potassium 4.7 mmol/L (3.5-5.1); Sodium 133 mmol/L (136-145)
[2024-07-24 04:00] VITALS: BP 129/51; PULSE 73; RESP 20; TEMP 36.9; O2SAT 98
[2024-07-24 06:47] LABS: Glucose Point of Care 279 mg/dL (70-110)
[2024-07-24] MEDS: buPROPion XL (24 HR) 150 mg Tablet PO (06:53)
[2024-07-24] MEDS: hyDRALAzine 10 mg Tablet PO ×3 (06:54→21:48)
[2024-07-24 07:23] VITALS: BP 142/69; PULSE 75; RESP 24; TEMP 36.8; O2SAT 99
--- NOTE | 2024-07-24 09:04 | P.PN_ITS ---
Subjective 2 Subjective: no new complaints today, she is calm and cooperative. Urine output not strictly measured as patient is going to the bathroom. Declines placement of Kent catheter. Medications: Reviewed: Yes Vitals/I&O/Wt Last Vital Signs Temp 98.3 F 07/24/24 07:23 Pulse 75 07/24/24 07:23 Resp 24 H 07/24/24 07:23 BP 142/69 07/24/24 07:23 Pulse Ox 99 07/24/24 07:23 O2 Del Method Nasal Cannula 07/24/24 07:23 O2 Flow Rate 2 07/22/24 11:48 07/23/24 07/24/24 07/24/24 22:59 06:59 14:59 Intake Total 240 / 600 500 / 1100 Balance 240 / 600 500 / 1100 Weight last 48 hrs Weight 119.386 kg Weight 119.386 kg Weight 119.386 kg Physical Exam 2 Narrative: General: No acute distress, AO x1-2 HEENT: PERRLA, pupils bilaterally equal and reactive, pallors not present Chest: Normal vesicular breath sounds, no added sounds, equal good air entry bilaterally CVS: S1-S2 regular, no murmurs, no tachycardia, no gallops, no rubs Abdomen: Soft, nontender, no organomegaly, bowel sounds present Neuro: No focal deficits, apahasia+ Extremities: B/L LE pitting edema Urinary Catheter Management: Kent: Cath Placed During This Visit: yes, but has since been removed by the nurse Reason for Continuing Indwelling Catheter: Accurate Measurement of Urinary Output in Critically Ill Patients Urinary Catheter Date of Insertion: 07/16/24 Urinary Catheter Time of Insertion: 10:26 Date Urinary Catheter Removed: 07/23/24 Time Urinary Catheter Discontinued: 07:41 Data 07/24/24 02:00 07/24/24 02:00 A&P Assessment and plan (1) DELORIS (acute kidney injury): (2) Pneumonia: (3) Acute encephalopathy: Plan Acute encephalopathy, resolved -History of depression, paranoia, CVA, dysphagia secondary to CVA -Now with pneumonia -Neurochecks -NIH stroke scale -Aspiration precautions -Monitor mentation closely -Can use Haldol as needed for agitation Agitation, none during my examination has been quite pleasant, follows commands, ? Patient was placed on Zyprexa 5 mg at bedtime ? Continue for Lamictal 100 mg 3 times daily ? Continue Risperdal 1 mg p.o. every morning Continue Wellbutrin Pneumonia resolving -With leukocytosis, with bilateral lung opacities -De-escalate to Augmentin -DuoNeb as needed Positive for rhinovirus, continue isolation, asymptomatic Acute systolic CHF exacerbation -With bilateral extreme edema, elevated BNP, crackles on examination -Monitor creatinine monitor potassium -Ending up to 3.9 hold Lasix therapy, IV fluids -Cardiac echo CONCLUSIONS LV systolic function is normal with EF of 50-55%. Grade 1 diatsolic dysfunction Left atrial dilation Moderate mitral stenosis. Mild kathleen regurgitation Mild aortic stenosis with aortic valve area of 2.1cm2 and mean gradient of 12mmHg. Mild tricuspid regurgitation. Compared to prior echocardiogram from 2020, patient now has moderate mitral stenosis and mild aortic stenosis. Also has grade 1 diastolic dysfunction. Acute kidney injury -Monitor urine output, monitor creatinine, place Kent catheter US/ renal BI* [id number] IMPRESSION: 1. Limited ultrasound evaluation of the kidneys due to body habitus. 2. Kidneys are normal size. No hydronephrosis. -Ending up to 3.9, IV fluids holding nephrotoxic agents Type 2 diabetes mellitus # Moderate dose sliding scale -Lantus 15 units twice daily NSTEMI -Continue Plavix, statin -Cardiac echo as above * Full code ? Heparin for DVT prophylaxis Plan monitor DELORIS, creatinine up to 3.9, IV fluids, Plan for today 07/24/2024. Patient is calm, cooperative. Mentation appears to be back at baseline. Still has some degree of aphasia which does not appear to be new in reviewing the prior notes. Creatinine stable at 3.7 today. Urine output unable to be accurately charted as patient is walking to the bathroom, refusing placement of a Kent catheter. IVF ordered but she has been refusing, therefore did not get the NS as ordered. Kidney function stable over last 24 hrs , will closely monitor - encourag epo hydration. If continues to downtrend, likely d/c next 24 hrs Attestations 2 Medical Necessity Statement*: Needs serial reassessment of creatinine and urine output. Anticipate discharge in the upcoming 24 hours if creatinine continues to downtrend Coding Level of Care Code Acute Code for Chg Fwd Moderate MDM includes number and complexity of problems actively addressed during encounter, amount and/or complexity of data reviewed/ordered and described risk of complication, morbidity or mortality of management as documented Diagnoses DELORIS (acute kidney injury) N17.9 Pneumonia J18.9 Acute encephalopathy G93.40
[2024-07-24] MEDS: insulin glargine 100 units/1 mL 15 UNIT SUBCUT ×2 (10:10→17:07)
[2024-07-24] MEDS: heparin 5,000 unit/mL INJ 1 mL 5000 UNIT SUBCUT ×2 (10:10→21:48)
[2024-07-24] MEDS: insulin lispro 100 unit/1 mL SUBCUT ×4 (10:10→21:48)
[2024-07-24] MEDS: pantoprazole 40 mg SDV IVP (10:11)
[2024-07-24] MEDS: amoxicillin-clav 875-125 mg Tablet 1 TAB PO ×2 (10:11→17:06)
[2024-07-24] MEDS: duloxetine 60 mg Capsule PO (10:12)
[2024-07-24] MEDS: clopidogrel 75 mg Tablet PO (10:12)
[2024-07-24] MEDS: amlodipine 10 mg Tablet PO (10:12)
[2024-07-24] MEDS: allopurinol 300 mg Tablet PO (10:12)
[2024-07-24] MEDS: lamoTRIgine 100 mg Tablet PO ×3 (10:12→21:48)
[2024-07-24] MEDS: risperiDONE 1 mg Tablet PO (10:16)
[2024-07-24 11:58] VITALS: BP 151/72; PULSE 78; RESP 20; TEMP 36.5; O2SAT 95
[2024-07-24 12:10] LABS: Glucose Point of Care 306 mg/dL (70-110)
[2024-07-24 16:00] VITALS: BP 151/61; PULSE 87; RESP 25; TEMP 36.7; O2SAT 97
[2024-07-24 17:24] LABS: Glucose Point of Care 324 mg/dL (70-110)
[2024-07-24 19:54] VITALS: BP 157/78; PULSE 76; RESP 17; TEMP 37; O2SAT 99
[2024-07-24 21:01] LABS: Glucose Point of Care 361 mg/dL (70-110)
[2024-07-24] MEDS: OLANZapine 5 mg TABLET PO (21:48)
[2024-07-25 05:29] LABS: Basophils # 0.1 10^3/uL (0.0-0.1); Eosinophils # 0.7 10^3/uL (0.0-0.8); Eosinophils % 6.9 %; Hematocrit 29.4 % (36-47); Lymphocytes % 9.2 %; Mean Corpuscular HGB Conc 30.3 g/dL (30-55); Mean Corpuscular Hemoglobin 26.6 pg (27-33); Mean Platelet Volume 9.9 fL (7.4-10.4); Monocytes % 9.3 %; Neutrophils # 7.73 10^3/uL (1.8-7.7); Neutrophils % 73.1 %; Nucleated Red Blood Cells % 0 %; Platelet Count 247 10^3/cmm (157-399); Red Blood Count 3.34 10^6/uL (3.85-5.65); White Blood Count 10.57 10^3/uL (3.29-11.43)
[2024-07-25] MEDS: hyDRALAzine 10 mg Tablet PO ×3 (05:42→22:21)
[2024-07-25] MEDS: buPROPion XL (24 HR) 150 mg Tablet PO (05:42)
[2024-07-25 05:50] LABS: Anion Gap 17.3 (5-19); Calcium 9.3 mg/dL (8.5-10.5); Carbon Dioxide 23 mmol/L (22-29); Chloride 100 mmol/L (98-107); Creatinine Clr Calc Pharmacy 21.0089; Glomerular Filtration Rate 13.2 mL/min (90-130); Glucose 221 mg/dL (65-115); Osmolality Calculated 313 mOsm/kg (285-295); Potassium 5.3 mmol/L (3.5-5.1); Sodium 135 mmol/L (136-145)
[2024-07-25 06:17] LABS: Blood Urea Nitrogen 86 mg/dL (8-23)
[2024-07-25 07:45] VITALS: BP 160/69; PULSE 69; RESP 22; TEMP 36.4; O2SAT 96
[2024-07-25 07:48] LABS: Glucose Point of Care 249 mg/dL (70-110)
[2024-07-25] MEDS: insulin lispro 100 unit/1 mL SUBCUT ×4 (08:37→22:20)
[2024-07-25] MEDS: amoxicillin-clav 875-125 mg Tablet 1 TAB PO ×2 (08:37→17:55)
[2024-07-25] MEDS: insulin glargine 100 units/1 mL 15 UNIT SUBCUT ×2 (08:37→17:55)
[2024-07-25] MEDS: pantoprazole DR 40 mg Tablet PO (08:38)
[2024-07-25] MEDS: duloxetine 60 mg Capsule PO (08:38)
[2024-07-25] MEDS: amlodipine 10 mg Tablet PO (08:38)
[2024-07-25] MEDS: allopurinol 300 mg Tablet PO (08:38)
[2024-07-25] MEDS: clopidogrel 75 mg Tablet PO (08:38)
[2024-07-25] MEDS: lamoTRIgine 100 mg Tablet PO ×2 (08:38→22:21)
[2024-07-25] MEDS: risperiDONE 1 mg Tablet PO (08:38)
[2024-07-25 11:15] VITALS: BP 148/71; PULSE 78; RESP 22; TEMP 36.7; O2SAT 95
[2024-07-25 11:59] LABS: Glucose Point of Care 271 mg/dL (70-110)
[2024-07-25] MEDS: heparin 5,000 unit/mL INJ 1 mL 5000 UNIT SUBCUT ×2 (12:36→22:21)
[2024-07-25] MEDS: ondansetron 2 mg/ML SDV 2 mL 4 MG IVP (13:19)
--- NOTE | 2024-07-25 13:34 | CTR_ITS ---
PROCEDURE INFORMATION: Exam: CT Abdomen And Pelvis Without Contrast Exam date and time: 07/25/2024 3:02 PM Age: 64 years old Clinical indication: Abdominal pain; Generalized; Additional info: Assess for ileus/ sbo TECHNIQUE: Imaging protocol: Computed tomography of the abdomen and pelvis without contrast. Radiation optimization: All CT scans at this facility use at least one of these dose optimization techniques: automated exposure control; mA and/or kV adjustment per patient size (includes targeted exams where dose is matched to clinical indication); or iterative reconstruction. COMPARISON: MR MRCP [id number] 10/02/2021 11:54 AM RADIATION DOSE METRICS: Total DLP (mGy-cm): 1314.79 FINDINGS: Lungs: Atelectatic changes in the left lower lobe. Heart: There is calcification of the mitral valve annulus. Coronary arteries: There is mild atherosclerotic calcification of the coronary arteries. Liver: Normal. No mass. Gallbladder and biliary ducts: There has been a cholecystectomy. Pancreas: Normal. No ductal dilation. Spleen: Normal. No splenomegaly. Adrenal glands: Normal. No mass. Kidneys and ureters: Normal. No hydronephrosis. Stomach and bowel: There is diverticulosis of the sigmoid colon. Appendix: No evidence of appendicitis. Intraperitoneal space: Unremarkable. No free air. No significant fluid collection. Vasculature: There are numerous benign phleboliths in the pelvis. Lymph nodes: Unremarkable. No enlarged lymph nodes. Urinary bladder: Unremarkable as visualized. Reproductive: Unremarkable as visualized. Bones/joints: Mild degenerative disease bilateral hip joints. There are diffuse enthesopathic changes consistent with benign diffuse idiopathic skeletal hyperostosis (DISH). Soft tissues: There is a fat-containing umbilical hernia. CT/CT abdomen pelvis con [id number] IMPRESSION: No small bowel obstruction or ileus. No acute intra-abdominal process.
--- NOTE | 2024-07-25 13:35 | P.PN_ITS ---
Subjective 2 Subjective: Patient complains of nausea today. States she has some abdominal discomfort. States she has not had a bowel movement in 3 days now. Passing flatus. States the nausea is new. No fever or chills. Medications: Reviewed: Yes Vitals/I&O/Wt Last Vital Signs Temp 98.0 F 07/25/24 11:15 Pulse 78 07/25/24 11:15 Resp 22 H 07/25/24 11:15 BP 148/71 07/25/24 11:15 Pulse Ox 95 07/25/24 11:15 O2 Del Method Nasal Cannula 07/25/24 11:15 O2 Flow Rate 2 07/22/24 11:48 07/24/24 07/25/24 07/25/24 22:59 06:59 14:59 Intake Total 660 / 2260 120 / 2380 240 / 240 Balance 660 / 2260 120 / 2380 240 / 240 Weight last 48 hrs Weight 119.386 kg Weight 119.386 kg Physical Exam 2 Narrative: General: No acute distress, AO x3 HEENT: PERRLA, pupils bilaterally equal and reactive, pallors not present Chest: scattered B/L wheezing CVS: S1-S2 regular, no murmurs, no tachycardia, no gallops, no rubs Abdomen: Soft, nontender, no organomegaly, bowel sounds present Neuro: No focal deficits, apahasia+ Extremities: B/L LE pitting edema Urinary Catheter Management: Kent: Cath Placed During This Visit: yes, but has since been removed by the nurse Reason for Continuing Indwelling Catheter: Accurate Measurement of Urinary Output in Critically Ill Patients Urinary Catheter Date of Insertion: 07/16/24 Urinary Catheter Time of Insertion: 10:26 Date Urinary Catheter Removed: 07/23/24 Time Urinary Catheter Discontinued: 07:41 Data 07/25/24 05:11 07/25/24 05:11 A&P Assessment and plan (1) DELORIS (acute kidney injury): (2) Pneumonia: (3) Acute encephalopathy: (4) Hyperkalemia: Plan Acute encephalopathy, resolved -History of depression, paranoia, CVA, dysphagia secondary to CVA -Now with pneumonia -Neurochecks -NIH stroke scale -Aspiration precautions -Monitor mentation closely -Can use Haldol as needed for agitation Agitation, none during my examination has been quite pleasant, follows commands, ? Patient was placed on Zyprexa 5 mg at bedtime ? Continue for Lamictal 100 mg 3 times daily ? Continue Risperdal 1 mg p.o. every morning Continue Wellbutrin Pneumonia resolving -With leukocytosis, with bilateral lung opacities -De-escalate to Augmentin -DuoNeb as needed Positive for rhinovirus, continue isolation, asymptomatic Acute systolic CHF exacerbation -With bilateral extreme edema, elevated BNP, crackles on examination -Monitor creatinine monitor potassium -Ending up to 3.9 hold Lasix therapy, IV fluids -Cardiac echo CONCLUSIONS LV systolic function is normal with EF of 50-55%. Grade 1 diatsolic dysfunction Left atrial dilation Moderate mitral stenosis. Mild kathleen regurgitation Mild aortic stenosis with aortic valve area of 2.1cm2 and mean gradient of 12mmHg. Mild tricuspid regurgitation. Compared to prior echocardiogram from 2019, patient now has moderate mitral stenosis and mild aortic stenosis. Also has grade 1 diastolic dysfunction. Acute kidney injury -Monitor urine output, monitor creatinine, place Kent catheter US/ renal BI* [id number] IMPRESSION: 1. Limited ultrasound evaluation of the kidneys due to body habitus. 2. Kidneys are normal size. No hydronephrosis. -Ending up to 3.9, IV fluids holding nephrotoxic agents Type 2 diabetes mellitus # Moderate dose sliding scale -Lantus 15 units twice daily NSTEMI -Continue Plavix, statin -Cardiac echo as above * Full code ? Heparin for DVT prophylaxis Plan monitor DELORIS, creatinine up to 3.9, IV fluids, Plan for today 07/24/2024. Patient is calm, cooperative. Mentation appears to be back at baseline. Still has some degree of aphasia which does not appear to be new in reviewing the prior notes. Creatinine stable at 3.7 today. Urine output unable to be accurately charted as patient is walking to the bathroom, refusing placement of a Kent catheter. IVF ordered but she has been refusing, therefore did not get the NS as ordered. Kidney function stable over last 24 hrs , will closely monitor - encourag epo hydration. If continues to downtrend, likely d/c next 24 hrs Plan for today 07/25/2024. She is complaining of nausea. Feels like she needs to vomit. Has not had a bowel movement in [address] of the abdomen and pelvis without contrast ordered today to evaluate for possible ileus versus SBO. Alternate possibility is that of pancreatitis, patient has a history of the same in reviewing notes from 2021. Check serum lipase. Creatinine is improving at 3.5. Urine output unable to be accurately charted as patient refuses placement of a Kent catheter. Prefers to walk to the bathroom. CT of the abdomen and pelvis will additionally evaluate for any urinary obstruction, previously renal ultrasound was negative for the same from 07/16/2024. Blood sugar greater than 270 consistently. Increase insulin sliding scale from low-dose to high-dose. Attestations 2 Medical Necessity Statement*: Evaluation ongoing for ileus, SBO. Coding Level of Care Code Acute Code for Chg Fwd Moderate MDM includes number and complexity of problems actively addressed during encounter, amount and/or complexity of data reviewed/ordered and described risk of complication, morbidity or mortality of management as documented Diagnoses DELORIS (acute kidney injury) N17.9 Pneumonia J18.9 Acute encephalopathy G93.40 Hyperkalemia E87.5
--- NOTE | 2024-07-25 13:36 | XRR_ITS ---
PROCEDURE INFORMATION: Exam: XR Chest Exam date and time: 07/25/2024 3:06 PM Age: 64 years old Clinical indication: Dyspnea; Additional info: Assess for pulm edema TECHNIQUE: Imaging protocol: Radiologic exam of the chest. Views: 1 view. COMPARISON: CR XR chest 1V portable [id number] 07/21/2024 10:19 AM FINDINGS: Lungs: Poor inspiratory effort. No focal consolidation. Pleural spaces: Small bilateral pleural effusions Heart/Mediastinum: Mild cardiomegaly. Vasculature: Unfolding of the thoracic aorta. Bones/joints: Post bilateral rotator cuff repair. Organs: Post cholecystectomy XR/XR chest 1V portable [id number] IMPRESSION: Small bilateral pleural effusions. No focal consolidation.
[2024-07-25 14:00] LABS: Lipase 77 U/L (13-60)
[2024-07-25] MEDS: acetaminophen 325 mg Tablet 650 MG PO (14:25)
[2024-07-25] MEDS: bisacodyl 5 mg Tablet 10 MG PO (14:25)
[2024-07-25 16:00] VITALS: BP 160/64; PULSE 61; RESP 23; TEMP 36.7; O2SAT 92
[2024-07-25 16:32] LABS: Adenovirus Not Detected (NOT DETECT); Chlamydia Pneumoniae Not Detected (NOT DETECT); Coronavirus 229E,HKU1,NL63,OC4 Not Detected (NOT DETECT); Human Metapneumovirus Not Detected (NOT DETECT); Human Rhinovirus/Enterovirus Detected (NOT DETECT); Influenza A Not Detected (NOT DETECT); Influenza A H1 Not Detected (NOT DETECT); Influenza A H1-2009 Not Detected (NOT DETECT); Influenza A H3 Not Detected (NOT DETECT); Influenza B Not Detected (NOT DETECT); Mycoplasma Pneumoniae Not Detected (NOT DETECT); Parainfluenza Virus Type 1 Not Detected (NOT DETECT); Parainfluenza Virus Type 2 Not Detected (NOT DETECT); Parainfluenza Virus Type 3 Not Detected (NOT DETECT); Parainfluenza Virus Type 4 Not Detected (NOT DETECT); Respiratory Syncytial Virus A Not Detected (NOT DETECT); Respiratory Syncytial Virus B Not Detected (NOT DETECT); SARS-COV-2 Not Detected (NOT DETECT)
[2024-07-25 16:34] LABS: Human Metapneumovirus Not Detected (NOT DETECT); Human Rhinovirus/Enterovirus Detected (NOT DETECT); Results from Genmark
[2024-07-25 17:33] LABS: Glucose Point of Care 258 mg/dL (70-110)
[2024-07-25 20:00] VITALS: BP 142/49; PULSE 67; RESP 27; TEMP 36.5
[2024-07-25 20:56] LABS: Glucose Point of Care 279 mg/dL (70-110)
[2024-07-25 22:00] VITALS: PULSE 73
[2024-07-25] MEDS: OLANZapine 5 mg TABLET PO (22:21)
[2024-07-25 23:57] VITALS: BP 117/49; PULSE 73; RESP 18; TEMP 36.8
[2024-07-26 04:00] VITALS: BP 161/66; PULSE 67; RESP 19; TEMP 36.6
[2024-07-26 05:32] LABS: Basophils # 0.1 10^3/uL (0.0-0.1); Eosinophils # 0.7 10^3/uL (0.0-0.8); Eosinophils % 6.3 %; Hematocrit 29.2 % (36-47); Lymphocytes # 1.2 10^3/uL (0.8-4.8); Lymphocytes % 9.9 %; Mean Corpuscular HGB Conc 30.1 g/dL (30-55); Mean Corpuscular Hemoglobin 27.3 pg (27-33); Mean Corpuscular Volume 90.7 fl (85-98); Monocytes # 1.2 10^3/uL (0.2-0.9); Monocytes % 9.9 %; Neutrophils # 8.35 10^3/uL (1.8-7.7); Neutrophils % 72.3 %; Nucleated Red Blood Cells % 0 %; Platelet Count 233 10^3/cmm (157-399); Red Blood Count 3.22 10^6/uL (3.85-5.65); Red Cell Distribution Width 16.1 % (12.1-15.1); White Blood Count 11.56 10^3/uL (3.29-11.43)
[2024-07-26 05:47] LABS: Alanine Aminotransferase 28 U/L (0-33); Albumin Level 3.3 g/dL (3.5-5.2); Alkaline Phosphatase 125 U/L (35-105); Anion Gap 15.3 (5-19); Aspartate Amino Transferase 24 U/L (0-32); Calcium 9.2 mg/dL (8.5-10.5); Carbon Dioxide 24 mmol/L (22-29); Chloride 100 mmol/L (98-107); Creatinine Clr Calc Pharmacy 22.2822; Globulin 3.2 g/dL (1.3-4.6); Glomerular Filtration Rate 14.1 mL/min (90-130); Glucose 158 mg/dL (65-115); Osmolality Calculated 308 mOsm/kg (285-295); Potassium 5.3 mmol/L (3.5-5.1); Sodium 134 mmol/L (136-145); Total Bilirubin 0.2 mg/dL (0.15-1.2); Total Protein 6.5 g/dL (6.6-8.7)
[2024-07-26 05:57] LABS: Blood Urea Nitrogen 87 mg/dL (8-23)
[2024-07-26] MEDS: buPROPion XL (24 HR) 150 mg Tablet PO (05:59)
[2024-07-26] MEDS: hyDRALAzine 10 mg Tablet PO ×2 (05:59→13:55)
[2024-07-26 06:00] VITALS: PULSE 85
[2024-07-26 06:41] LABS: Glucose Point of Care 176 mg/dL (70-110)
[2024-07-26 07:21] VITALS: BP 152/65; PULSE 60; RESP 27; TEMP 36.4; O2SAT 96
[2024-07-26] MEDS: polyethylene glycol 3350 Pkt 17 gm PO (08:40)
[2024-07-26] MEDS: insulin glargine 100 units/1 mL 15 UNIT SUBCUT (08:40)
[2024-07-26 08:41] VITALS: PULSE 60; RESP 22; O2SAT 96
[2024-07-26] MEDS: insulin lispro 100 unit/1 mL SUBCUT ×2 (08:41→12:40)
[2024-07-26] MEDS: duloxetine 60 mg Capsule PO (08:42)
[2024-07-26] MEDS: lamoTRIgine 100 mg Tablet PO (08:42)
[2024-07-26] MEDS: risperiDONE 1 mg Tablet PO (08:42)
[2024-07-26] MEDS: amoxicillin-clav 875-125 mg Tablet 1 TAB PO (08:42)
[2024-07-26] MEDS: clopidogrel 75 mg Tablet PO (08:42)
[2024-07-26] MEDS: allopurinol 300 mg Tablet PO (08:42)
[2024-07-26] MEDS: amlodipine 10 mg Tablet PO (08:42)
[2024-07-26] MEDS: pantoprazole DR 40 mg Tablet PO (08:42)
--- NOTE | 2024-07-26 10:57 | PC.SOCIAL ---
IMM Update pg 2 of IMM Updated and reviewed w/ patients guardian Brenton Shadi. Copy dated, initialed and placed in chart.
[2024-07-26 11:21] VITALS: BP 127/54; PULSE 66; RESP 21; TEMP 36.4; O2SAT 97
[2024-07-26] MEDS: FUROsemide 10 mg/mL SDV 2mL 20 MG IVP (11:47)
[2024-07-26] MEDS: heparin 5,000 unit/mL INJ 1 mL 5000 UNIT SUBCUT (11:48)
[2024-07-26 12:12] LABS: Glucose Point of Care 304 mg/dL (70-110)
--- NOTE | 2024-07-26 13:12 | PC.NURSE ---
Report is called to MISSY Lowery at [place], [place].
--- NOTE | 2024-07-26 14:34 | P.DS_ITS ---
Discharge Providers Date of Admission: 07/15/24 19:33 Date of Discharge: July 26, 2024 Attending Provider at Admission: Patel Jones MD Attending Provider at Discharge: Rain Haque MD Primary Care Provider: Benigno Jennings DO Diagnoses at Discharge Discharge Diagnosis (1) DELORIS (acute kidney injury): Status: Acute (2) Pneumonia: Status: Acute (3) Acute encephalopathy: Status: Acute (4) Hyperkalemia: Status: Acute Reason for Visit Reason for Visit: behav. ams Hospital Course Hospital Course 64-year-old female with history of agitation, multiple psychiatric issues, CHF, was admitted to [facility] for acute hypoxic respiratory failure, multifactorial from pneumonia, COPD, CHF. She initially came in with agitation, was evaluated by psychiatry started her on Zyprexa, risperidone with good response. She has had no episodes of agitation in the hosoital. has been calm and cooperative. -For her pneumonia, she was treated with iv antibiotics, transitioned to p.o. Augmentin on discharge. -For CHF, she received iv diuresis initially however this was complicated by DELORIS on CKD. Diuresis was briefly held, resumed at discharge with reduced dose of lasix at 40mg every other day. creatinine peakd at 3.9, now improved at 3.3. She is urinating well. Discharged today in stable to improved state. On July 2024 patient has complained of abdominal pain and nausea. CT of the abdomen was performed, there was no signs of ileus or SBO. Patient was constipated. She received treatment with MiraLAX. Constipation has resolved today. She has had 2 bowel movements. Nausea is much improved since having had a bowel movement. She tested positive for rhino/enterovirus, supportive treatment recommended for the same. Physical Exam Narrative: General: No acute distress HEENT: PERRLA, pupils bilaterally equal and reactive, pallors not present Chest: Normal vesicular breath sounds, no added sounds, equal good air entry bilaterally CVS: S1-S2 regular, no murmurs, no tachycardia, no gallops, no rubs Abdomen: Soft, nontender, no organomegaly, bowel sounds present Urinary Catheter Management: [place]: Cath Placed During This Visit: yes, but has since been removed by the nurse Reason for Continuing Indwelling Catheter: Accurate Measurement of Urinary Output in Critically Ill Patients Urinary Catheter Date of Insertion: 07/16/24 Urinary Catheter Time of Insertion: 10:26 Date Urinary Catheter Removed: 07/23/24 Time Urinary Catheter Discontinued: 07:41 Discharge Data Studies Completed and Pending Completed Studies During Hospitalization Category Date Time Status CT abdomen pelvis wo con [id number] Routine Cat Scan 07/25/24 13:[address] head wo con* [id number] Stat Cat Scan 07/15/24 16:50 Completed CXRP [XR chest 1V portable [id number]] Routine Exams 07/25/24 13:36 Completed XR chest 1V portable [id number] Routine Exams 07/21/24 10:10 Completed XR chest 1V portable [id number] Stat Exams 07/15/24 16:50 Completed CV. echo complete* [id number] Routine Ultrasound 07/16/24 06:00 Completed US renal BI* [id number] Routine Ultrasound 07/16/24 01:08 Completed Pending at discharge Category Date Time Status Sestamibi Stress Test Request Routine Exams 07/15/24 22:51 Stop Req Urinalysis Routine Lab 07/21/24 10:10 Uncollected Radiology Impressions Head CT 07/15/24 16:50 IMPRESSION: No acute intracranial findings. Renal Ultrasound 07/16/24 01:08 IMPRESSION: 1. Limited ultrasound evaluation of the kidneys due to body habitus. 2. Kidneys are normal size. No hydronephrosis. Abdomen/Pelvis CT 07/25/24 13:34 IMPRESSION: No small bowel obstruction or ileus. No acute intra-abdominal process. Chest X-Ray 07/25/24 13:36 IMPRESSION: Small bilateral pleural effusions. No focal consolidation. Laboratory Results WBC 11.56 10^3/uL (3.29-11.43) H 07/26/24 04:49 RBC 3.22 10^6/uL (3.85-5.65) L 07/26/24 04:49 Hgb 8.80 g/dL (11.27-16.99) L 07/26/24 04:49 Hct 29.2 % (36-47) L 07/26/24 04:49 MCV 90.7 fl (85-98) 07/26/24 04:49 MCH 27.3 pg (27-33) 07/26/24 04:49 MCHC 30.1 g/dL (30-55) 07/26/24 04:49 RDW 16.1 % (12.1-15.1) H 07/26/24 04:49 Plt Count 233 10^3/cmm (157-399) 07/26/24 04:49 MPV 10.0 fL (7.4-10.4) 07/26/24 04:49 Neut % (Auto) 72.3 % 07/26/24 04:49 Lymph % (Auto) 9.9 % 07/26/24 04:49 [place] % (Auto) 9.9 % 07/26/24 04:49 Eos % (Auto) 6.3 % 07/26/24 04:49 Baso % (Auto) 1.0 % 07/26/24 04:49 Neut # (Auto) 8.35 10^3/uL (1.8-7.7) H 07/26/24 04:49 Lymph # (Auto) 1.2 10^3/uL (0.8-4.8) 07/26/24 04:49 [place] # (Auto) 1.2 10^3/uL (0.2-0.9) H 07/26/24 04:49 Eos # (Auto) 0.7 10^3/uL (0.0-0.8) 07/26/24 04:49 Baso # (Auto) 0.1 10^3/uL (0.0-0.1) 07/26/24 04:49 Nucleated RBC % (auto) 0 % 07/26/24 04:49 Nucleated RBCs # 0.0 /100WBC 07/26/24 04:49 Sodium 134 mmol/L (136-145) L 07/26/24 04:49 Potassium 5.3 mmol/L (3.5-5.1) H 07/26/24 04:49 Chloride 100 mmol/L (98-107) 07/26/24 04:49 Carbon Dioxide 24 mmol/L (22-29) 07/26/24 04:49 Anion Gap 15.3 (5-19) 07/26/24 04:49 BUN 87 mg/dL (8-23) H* 07/26/24 04:49 Creatinine 3.3 mg/dL (0.5-0.9) H 07/26/24 04:49 GFR Calculation 14.1 mL/min (90-130) L 07/26/24 04:49 Glucose 158 mg/dL (65-115) H 07/26/24 04:49 POC Glucose 304 mg/dL (70-110) H 07/26/24 11:20 Calculated Osmolality 308 mOsm/kg (285-295) H 07/26/24 04:49 Calcium 9.2 mg/dL (8.5-10.5) 07/26/24 04:49 Phosphorus 5.4 mg/dL (2.5-4.5) H 07/22/24 03:19 Magnesium 1.8 mg/dL (1.7-2.3) 07/22/24 03:19 Iron 25 ug/dL (37-145) L 07/15/24 17:10 TIBC 233 mcg/dl 07/15/24 17:10 % Saturation 10.7 % (20-50) L 07/15/24 17:10 Unsat Iron Binding 208 ug/dL (112-347) 07/15/24 17:10 Total Bilirubin 0.2 mg/dL (0.15-1.2) 07/26/24 04:49 AST 24 U/L (0-32) 07/26/24 04:49 ALT 28 U/L (0-33) 07/26/24 04:49 Alkaline Phosphatase 125 U/L (35-105) H 07/26/24 04:49 Troponin T Baseline 66 ng/L (0-10) H 07/15/24 17:10 Troponin T 120 Minute 59.95 ng/L (0-10) H 07/15/24 20:45 Delta Troponin T -6.05 ABS# (0-10) L 07/15/24 20:45 Troponin T Hi Sens 6Hr 64.85 ng/L (0-10) H 07/16/24 00:20 Troponin T Hi Sens 6Hr Delta -1.15 ng/L (0-12) L 07/16/24 00:20 C-Reactive Protein 17.5 mg/L (0.0-4.9) H 07/21/24 02:39 NT-Pro-B Natriuret Pep 1096 pg/mL (0-125) H 07/24/24 02:00 Total Protein 6.5 g/dL (6.6-8.7) L 07/26/24 04:49 Albumin 3.3 g/dL (3.5-5.2) L 07/26/24 04:49 Globulin 3.2 g/dL (1.3-4.6) 07/26/24 04:49 Lipase 77 U/L (13-60) H 07/25/24 05:11 Procalcitonin 0.21 ng/mL (0-0.5) 07/21/24 02:39 TSH 3.51 uIU/mL (0.27-4.20) 07/15/24 17:10 Urine Color Yellow (Yellow) 07/15/24 18:35 Urine Appearance Clear (CLEAR) 07/15/24 18:35 Urine pH 6.5 (5-7) 07/15/24 18:35 Ur Specific [place] 1.017 (1.005-1.030) 07/15/24 18:35 Urine Protein 4+ (Negative) A 07/15/24 18:35 Urine Glucose (UA) Trace (Normal) H 07/15/24 18:35 Urine Ketones Negative (Negative) 07/15/24 18:35 Urine Blood 1+ (Negative) A 07/15/24 18:35 Urine Nitrate Negative (Negative) 07/15/24 18:35 Urine Bilirubin Negative (Negative) 07/15/24 18:35 Urine Urobilinogen 1.0 mg/dL (Negative) 07/15/24 18:35 Ur Leukocyte Esterase Negative (Negative) 07/15/24 18:35 Urine RBC 0-2 /hpf (0-2) 07/15/24 18:35 Urine WBC 0-5 /hpf (0-5) 07/15/24 18:35 Ur Squamous Epith Cells 0-5 /hpf (0-5) 07/15/24 18:35 Amorphous Sediment Not Reportable 07/15/24 18:35 Urine Bacteria None /hpf (NONE) 07/15/24 18:35 Hyaline Casts 2.87 /lpf 07/15/24 18:35 Salicylates 0.7 mg/dL (3-10) L 07/15/24 17:10 Urine Opiates Screen Negative ng/mL (Negative) 07/15/24 18:35 Acetaminophen < 5.0 ug/mL (10-30) L 07/15/24 17:10 Ur Barbiturates Screen Negative ng/mL (Negative) 07/15/24 18:35 Ur Phencyclidine Scrn Negative ng/mL (Negative) 07/15/24 18:35 Ur Amphetamines Screen Negative ng/mL (Negative) 07/15/24 18:35 U Benzodiazepines Scrn Negative ng/mL (Negative) 07/15/24 18:35 Urine Cocaine Screen Negative ng/mL (Negative) 07/15/24 18:35 U Marijuana (THC) Screen Negative ng/mL (Negative) 07/15/24 18:35 Ethyl Alcohol < 10 mg/dL (0-10) 07/15/24 17:10 Adenovirus (PCR) Not detected (NOT DETECT) 07/21/24 10:45 C. pneumoniae DNA (PCR) Not detected (NOT DETECT) 07/21/24 10:45 Coronavirus (PCR) Negative (Negative) 07/15/24 18:35 Coronavirus 229E (PCR) Not detected (NOT DETECT) 07/25/24 14:11 Human Metapneumovir PCR Not detected (NOT DETECT) 07/25/24 16:34 Influenza A (H1) PCR Not detected (NOT DETECT) 07/21/24 10:45 Influenza A (PCR) Negative (Negative) 07/15/24 18:35 Influ A (H1/09) PCR Not detected (NOT DETECT) 07/21/24 10:45 Influenza A (H3) PCR Not detected (NOT DETECT) 07/21/24 10:45 Influenza Type A (PCR) Not detected (NOT DETECT) 07/21/24 10:45 Influenza Type B (PCR) Not detected (NOT DETECT) 07/21/24 10:45 M. pneumoniae (PCR) Not detected (NOT DETECT) 07/21/24 10:45 Parainfluenza 1 (PCR) Not detected (NOT DETECT) 07/21/24 10:45 Parainfluenza 2 (PCR) Not detected (NOT DETECT) 07/21/24 10:45 Parainfluenza 3 (PCR) Not detected (NOT DETECT) 07/21/24 10:45 Parainfluenza 4 (PCR) Not detected (NOT DETECT) 07/21/24 10:45 RSV (PCR) Negative (Negative) 07/15/24 18:35 RSV Type A (PCR) Not detected (NOT DETECT) 07/21/24 10:45 RSV Type B (PCR) Not detected (NOT DETECT) 07/21/24 10:45 Entero/Rhino (PCR) Detected (NOT DETECT) A 07/25/24 16:34 SARS-CoV-2 (PCR) Not detected (NOT DETECT) 07/25/24 14:11 Vitals Last Vital Signs Temp 97.6 F 07/26/24 11:21 Pulse 66 07/26/24 11:21 Resp 21 H 07/26/24 11:21 BP 127/54 07/26/24 11:21 Pulse Ox 97 07/26/24 11:21 O2 Del Method Nasal Cannula 07/26/24 11:21 O2 Flow Rate 2 07/26/24 08:41 Discharge Plan Discharge Patient Disposition: Home Condition: Stable Prescriptions: New hydralazine 10 mg Tablet 10 mg PO Q8H 30 Days Qty: 90 0RF amlodipine 10 mg Tablet 10 mg PO DAILY 30 Days Qty: 30 0RF amoxicillin-pot clavulanate 875-125 mg Tablet 1 tab PO BID 5 Days Qty: 10 0RF olanzapine 5 mg Tablet 5 mg PO BEDTIME 30 Days Qty: 30 0RF duloxetine 60 mg Capsule,Delayed Release(Dr/Ec) 60 mg PO DAILY 30 Days Qty: 30 0RF polyethylene glycol 3350 17 gram Powder In Packet 17 g PO DAILY PRN (Reason: constipation) 7 Days Qty: 14 0RF Continued (DME) Dexcom G7 Sensor Device See Rx Instructions .Route Qty: 1 0RF Rx Instructions: As directed (DME) Dexcom G7 An/Ssn 2 4 Operator Misc See Rx Instructions .Route Qty: 1 6RF Rx Instructions: As directed allopurinol 300 mg tablet 300 mg PO DAILY Qty: 90 0RF potassium chloride 10 mEq capsule, extended release 10 meq PO DAILY Qty: 30 11RF tramadol 50 mg tablet 50 mg PO Q6H PRN (Reason: pain) Qty: 120 5RF atorvastatin 40 mg tablet 40 mg PO DAILY cetirizine 10 mg Tablet 10 mg PO DAILY magnesium hydroxide [Milk of Magnesia] 400 mg/5 mL Suspension 30 ml PO DAILY PRN (Reason: Constipation) calcium carbonate 500 mg calcium (1,250 mg) Tablet,Chewable 500 mg PO Q8H PRN (Reason: gastro-esophageal reflux) acetaminophen [Tylenol] 325 mg Tablet 650 mg PO Q6H PRN (Reason: PAIN OR ELEVATED TEMP) omeprazole 20 mg Capsule,Delayed Release(Dr/Ec) 20 mg PO DAILY clopidogrel 75 mg tablet 75 mg PO DAILY metoprolol tartrate 25 mg tablet 37.5 mg PO BID ondansetron HCl 4 mg tablet 4 mg PO Q6H PRN (Reason: Nausea And Vomiting) ascorbic acid (vitamin C) [Vitamin C] 500 mg tablet 500 mg PO DAILY diphenhydramine HCl [Banophen] 25 mg Capsule 25 mg PO Q12H PRN (Reason: Allergy Symptoms) lidocaine 5 % Adhesive Patch,Medicated 1 patch TOPICAL Q12H PRN (Reason: Pain) Rx Instructions: leave on most painful area for up to 12 hrs fluticasone propionate 50 mcg/actuation spray,suspension 1 spray INTRANASAL Q12H PRN (Reason: ALLERGIES) risperidone 1 mg Tablet 1 mg PO QAM lamotrigine 100 mg Tablet 100 mg PO TID bupropion HCl 150 mg Tablet Extended Release 24 Hr 150 mg PO QAM eszopiclone 3 mg tablet 3 mg PO QPM melatonin 10 mg Tablet 10 mg PO QPM Changed insulin glargine [Lantus Solostar U-100 Insulin] 100 unit/mL (3 mL) insulin pen 20 unit SUBCUT BID 30 Days Qty: 12 0RF insulin aspart U-100 [Novolog FlexPen U-100 Insulin] 100 unit/mL (3 mL) insulin pen See Rx Instructions .ROUTE .COMPLEX Qty: 15 0RF Rx Instructions: Inject, subcut, 3 times daily, after meals, based on sliding scale provided furosemide 40 mg tablet 40 mg PO EVERY OTHER DAY 30 Days Qty: 30 0RF Discontinued lisinopril 40 mg tablet 40 mg PO DAILY risperidone 0.5 mg Tablet 0.5 mg PO QPM duloxetine 30 mg Capsule,Delayed Release(Dr/Ec) 30 mg PO DAILY Discharge Orders: Discharge Order (Routine); Ordered 07/26/24 Ordered By: Rain Haque Referrals: [facility] [Outside] Benigno Jennings DO [Primary Care Provider] - 08/16/24 1:15 pm (This appointment is scheduled with Dr. Pisano. ) Discharge Diet: Cardiac Discharge Activity: Resume usual activity Patient Instructions: Amoxicillin (By mouth), Hydralazine (By mouth), Amlodipine (By mouth), Olanzapine (By mouth), Polyethylene Glycol 3350 (By cash th) (Miralax, Healthylax..., Duloxetine (By mouth) (Cymbalta, Irenka, Drizalma Sprinkle), Acute Kidney Injury (DC), Hyperkalemia (DC), Encephalopathy (DC), Opioid Safety, Pneumonia Stoplight Activity Restrictions/Additional Instructions: -recheck cr in one week -Please monitor your blood sugars closely -Monitor your blood sugars 3 times daily as after meals -Please record your blood sugars, and a blood sugar log -For your NovoLog -Please inject blood sugar after meals based on sliding scale provided -Do not inject insulin if you do not eat as hypoglycemia kills -This is a NovoLog sliding scale -Insulin sliding ?fingerstick? Insulin ?141-180?2 units/sq 181-220?4 units/sq ?221-260?6 units/sq ?261-300 8 units/sq ?301-350?10 units/sq ?351-400 12 units/sq ?401-450?14 units/sq >450? 16 units/sq -If your blood sugar is greater than 500 go to the emergency room -If your blood sugar is less than 60 or at anytime you feel lightheaded or dizzy or diaphoretic or have chest palpitations check your blood sugar, and eat a hard candy or drink orange juice and go immediately to the emergency room -Remember hypoglycemia kills, so if his blood sugar is less than 60 we have to increase it by taking in a sugary meal such as a hard candy or orange juice and go to the emergency room -If you have any questions please call us where here to help Discharge Attestations Time Spent in Discharge Care*: greater than 30 min Status at Discharge: Cognitive status at discharge: cognitively intact , Behavioral status at discharge: cooperative , Quality Metrics Clinical Quality Measures [ No reported AMI, CVA or VTE this stay] Coding Level of Care Code Acute Code for [facility] Fwd Diagnoses DELORIS (acute kidney injury) N17.9 Pneumonia J18.9 Acute encephalopathy G93.40 Hyperkalemia E87.5
--- NOTE | 2024-07-26 15:09 | PC.NURSE ---
Patient is transported to [place] via [facility]. Records and medications are sent with patient along with her belongings.
[2024-07-26 15:13] VITALS: BP 127/54; PULSE 66; RESP 21; TEMP 36.4; O2SAT 97
== END 2024-07-26 14:40 | disposition intermediate care facility (04) | DRG 280 ==
LOC: ER 19:19 → CSU 19:33
PROVIDERS: Family Medicine; Admitting Provider Student in an Organized Health Care Education/Training Program; Emergency Provider Emergency Medicine; PCP Family Medicine; Visit Provider Student in an Organized Health Care Education/Training Program
DX: I13.0 Hypertensive heart and chronic kidney disease with heart failure and stage 1 through stage 4 chronic kidney disease, or unspecified chronic kidney disease (principal); I50.23 Acute on chronic systolic (congestive) heart failure; I21.4 Non-ST elevation (NSTEMI) myocardial infarction; J18.9 Pneumonia, unspecified organism; J96.01 Acute respiratory failure with hypoxia; N17.9 Acute kidney failure, unspecified; J44.0 Chronic obstructive pulmonary disease with (acute) lower respiratory infection; G93.40 Encephalopathy, unspecified; F03.911 Unspecified dementia, unspecified severity, with agitation; Z68.41 Body mass index [BMI] 40.0-44.9, adult; E11.22 Type 2 diabetes mellitus with diabetic chronic kidney disease; N18.9 Chronic kidney disease, unspecified; E11.40 Type 2 diabetes mellitus with diabetic neuropathy, unspecified; E87.5 Hyperkalemia; K59.00 Constipation, unspecified; B34.8 Other viral infections of unspecified site; B34.1 Enterovirus infection, unspecified; F32.A Depression, unspecified; F22 Delusional disorders; I69.920 Aphasia following unspecified cerebrovascular disease; I69.991 Dysphagia following unspecified cerebrovascular disease; R13.10 Dysphagia, unspecified; E78.2 Mixed hyperlipidemia; G47.33 Obstructive sleep apnea (adult) (pediatric); F41.9 Anxiety disorder, unspecified; E66.01 Morbid (severe) obesity due to excess calories; Z87.891 Personal history of nicotine dependence; Z79.4 Long term (current) use of insulin; Z79.02 Long term (current) use of antithrombotics/antiplatelets
CPT/HCPCS: 0241U; 36415; 36416; 51702; 70450; 71045; 74176; 76770; 80048; 80053; 80306; 80307; 81001; 82962; 83540; 83550; 83690; 83735; 83880; 84100; 84145; 84443; 84484; 85025; 86140; 87040; 87070; 87205; 87486; 87581; 87633; 87635; 87801; 93005; 93306; 94664; 96372; 96374; 96376; 99285; J0456; J0696; J1630; J1644; J1815; J1940; J2060; J2270; J2405; J2470; J3475; J7030; J7050

== ENCOUNTER 2024-07-28 16:14 | Inpatient (IN) | payer MEDICARE, SELFPAY ==
[2024-07-28] VITALS (33 sets, daily range): BP systolic 83–134; BP diastolic 44–78; PULSE 40–72; RESP 16–26; TEMP 34.4–36.5; O2SAT 89–100; BMI 44.4
--- NOTE | 2024-07-28 16:17 | ECG_ITS ---
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 Measurements Intervals [place] Rate: 28 P: 0 NE: 0 QRS: -39 QRSD: 191 T: 19 QT: 588 QTc: 407 Interpretive Statements SINUS BRADYCARDIA WITH 2ND DEGREE AV BLOCK, 2:1 OR MOBITZ TYPE II LEFT AXIS DEVIATION [QRS AXIS < -30] RIGHT BUNDLE BRANCH BLOCK [120+ ms QRS DURATION, UPRIGHT V1, 40+ ms S IN I/aVL/V4/V5/V6] VOLTAGE CRITERIA FOR LVH [MEETS CRITERIA IN ONE OF: R(aVL), S(V1), R(V5), R(V5/V6)+S(V1)] PROLONGED QT INTERVAL Compared to ECG 07/19/2024 15:12:00 Left-axis deviation now present Sinus rhythm no longer present Left anterior fascicular block no longer present ST (T wave) deviation no longer present Electronically Signed On 07-30-2024 22:01:08 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 [email or web address]
[2024-07-28] MEDS: atropine 0.1 mg/mL Syr 10 mL 1 MG IVP (16:23)
[2024-07-28] MEDS: calcium chloride 10% Syr 10 mL 1 GM IVP ×2 (16:24→16:28)
[2024-07-28] MEDS: sodium bicarbonate 8.4% 1 mEq/mL 50mL Syr 50 MEQ IVP (16:26)
--- NOTE | 2024-07-28 16:34 | XRR_ITS ---
PROCEDURE INFORMATION: Exam: XR Chest Exam date and time: 07/28/2024 4:34 PM Age: 64 years old Clinical indication: Device placement; Other: Intubation and og tube; Additional info: Intubation/og tube placement TECHNIQUE: Imaging protocol: Radiologic exam of the chest. Views: 1 view. COMPARISON: CR (CHEST, ) 07/25/2024 3:06 PM FINDINGS: Tubes, catheters and devices: The endotracheal tube is appropriately positioned in the distal thoracic trachea with the tip above the obed. The orogastric tube is appropriately positioned with the tip in the stomach, well beyond the diaphragmatic hiatus. Defibrillator pad partially obscures the left lower lung. Lungs: Lung volumes are low. No gross pulmonary consolidation. Pleural spaces: No large effusion or pneumothorax is visible Heart/Mediastinum: The cardiomediastinal silhouette is unremarkable given AP technique and low lung volumes. Bones/joints: Bones are unremarkable. XR/XR chest 1V portable [id number] IMPRESSION: 1. Satisfactory endotracheal tube position. 2. Satisfactory OG tube position. 3. Limited evaluation of the lungs due to low lung volumes..
[2024-07-28] MEDS: etomidate 2 mg/mL INJ SDV 10 mL 30 MG IVP (16:36)
[2024-07-28] MEDS: vecuronium 10 mg SDV IVP (16:37)
--- NOTE | 2024-07-28 16:39 | PC.PHAR ---
patient is [place]
[2024-07-28] MEDS: sodium bicarbonate 150 MEQ in dextrose 5% 1,000 ML 1000 MEQ IV (16:45)
[2024-07-28] MEDS: albuterol 2.5 mg/3 mL Neb 10 MG INHALATION (16:51)
[2024-07-28 16:54] LABS: Basophils # 0.1 10^3/uL (0.0-0.1); Basophils % 0.7 %; Eosinophils # 0.1 10^3/uL (0.0-0.8); Eosinophils % 1.2 %; Hematocrit 29.3 % (36-47); Lymphocytes # 0.9 10^3/uL (0.8-4.8); Mean Corpuscular Hemoglobin 26.4 pg (27-33); Mean Platelet Volume 10.8 fL (7.4-10.4); Monocytes # 0.5 10^3/uL (0.2-0.9); Monocytes % 4.9 %; Neutrophils # 9.18 10^3/uL (1.8-7.7); Neutrophils % 84.4 %; Nucleated Red Blood Cells % 0 %; Platelet Count 273 10^3/cmm (157-399); Red Blood Count 3.33 10^6/uL (3.85-5.65); Red Cell Distribution Width 16.6 % (12.1-15.1); White Blood Count 10.88 10^3/uL (3.29-11.43)
[2024-07-28 17:21] LABS: Troponin(5th) Baseline 87 ng/L (0-10)
[2024-07-28 17:23] LABS: Alanine Aminotransferase 25 U/L (0-33); Albumin Level 3.6 g/dL (3.5-5.2); Alkaline Phosphatase 131 U/L (35-105); Aspartate Amino Transferase 17 U/L (0-32); Carbon Dioxide 21 mmol/L (22-29); Chloride 102 mmol/L (98-107); Globulin 2.3 g/dL (1.3-4.6); Glomerular Filtration Rate 7.6 mL/min (90-130); Glucose 168 mg/dL (65-115); Sodium 137 mmol/L (136-145); Total Bilirubin 0.2 mg/dL (0.15-1.2); Total Protein 5.9 g/dL (6.6-8.7)
[2024-07-28 17:35] LABS: Anion Gap 21.8 (5-19); Osmolality Calculated 327 mOsm/kg (285-295)
[2024-07-28 17:38] LABS: Blood Urea Nitrogen 122 mg/dL (8-23); Potassium 7.8 mmol/L (3.5-5.1)
--- NOTE | 2024-07-28 17:41 | ED_ITS ---
HPI - General Adult 2 General: Chief complaint: Shortness of Breath/Dyspnea Stated complaint: Weakness, Low heart rate Time Seen by Provider: 07/28/24 16:14 History of Present Illness: 64-year-old female presents to the [facility] room in severe bradycardia altered mental status and decompensating rhythm. She was intermittently in sinus pauses lasting several seconds other time it appears to be V. tach. Patient was not able to contribute anything into her history because of her altered mental status. She had previously been hospitalized which was reviewed later. See notes below Related Data Home Medications Medication Instructions Recorded Confirmed clopidogrel 75 mg tablet 75 mg PO DAILY 07/08/20 07/28/24 metoprolol tartrate 25 mg tablet 37.5 mg PO BID 07/08/20 07/28/24 acetaminophen 325 mg tablet 650 mg PO Q6H PRN PAIN OR ELEVATED 10/03/21 07/28/24 (Tylenol) TEMP atorvastatin 40 mg tablet 40 mg PO DAILY 10/03/21 07/28/24 calcium carbonate 500 mg PO Q8H PRN 10/03/21 07/28/24 gastro-esophageal reflux cetirizine 10 mg tablet 10 mg PO DAILY 10/03/21 07/28/24 magnesium hydroxide 400 mg/5 mL 30 ml PO DAILY PRN Constipation 10/03/21 07/28/24 oral suspension (Milk of Magnesia) omeprazole 20 mg capsule,delayed 20 mg PO DAILY 10/03/21 07/28/24 release ascorbic acid (vitamin C) 500 mg 500 mg PO DAILY 03/03/24 07/28/24 tablet (Vitamin C) diphenhydramine HCl 25 mg capsule 25 mg PO Q12H PRN Allergy Symptoms 03/03/24 07/28/24 (Banophen) fluticasone propionate 50 1 spray intranasal Q12H PRN 03/03/24 07/28/24 mcg/actuation nasal ALLERGIES spray,suspension lidocaine 5 % topical patch 1 patch topical Q12H PRN Pain 03/03/24 07/28/24 ondansetron HCl 4 mg tablet 4 mg PO Q6H PRN Nausea And Vomiting 03/03/24 07/28/24 bupropion HCl 150 mg 24 hr tablet, 150 mg PO QAM 07/16/24 07/28/24 extended release eszopiclone 3 mg tablet 3 mg PO QPM 07/16/24 07/28/24 lamotrigine 100 mg tablet 100 mg PO TID 07/16/24 07/28/24 melatonin 10 mg tablet 10 mg PO QPM 07/16/24 07/28/24 risperidone 1 mg tablet 1 mg PO QAM 07/16/24 07/28/24 amoxicillin 875 mg-potassium 1 tab PO BID 07/28/24 07/28/24 clavulanate 125 mg tablet Previous Rx's Medication Instructions Recorded allopurinol 300 mg tablet 300 mg PO DAILY #90 tabs 05/03/20 potassium chloride 10 mEq 10 meq PO DAILY #30 caps 09/12/22 capsule,extended release 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 meter,continuous #1 ea 03/12/23 (Spireoncom G7 Liner Assembler) 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 sensor (Dexcom G7 #1 ea 03/12/23 Sensor device) tramadol 50 mg tablet 50 mg PO Q6H PRN pain #120 tabs 11/18/23 amlodipine 10 mg tablet 10 mg PO DAILY 30 days #30 tabs 07/22/24 duloxetine 60 mg capsule,delayed 60 mg PO DAILY 30 days #30 caps 07/22/24 release hydralazine 10 mg tablet 10 mg PO Q8H 30 days #90 tabs 07/22/24 insulin aspart U-100 100 unit/mL See Rx Instructions .Route 07/22/24 (3 mL) subcutaneous pen (Novolog .COMPLEX #15 mL FlexPen U-100 Insulin aspart) insulin glargine 100 unit/mL (3 20 unit (0.2 mL) SUBCUT BID 30 07/22/24 mL) subcutaneous pen (Lantus days #12 mL Solostar U-100 Insulin) olanzapine 5 mg tablet 5 mg PO BEDTIME 30 days #30 tabs 07/22/24 furosemide 40 mg tablet 40 mg PO EVERY OTHER DAY 30 days 07/26/24 #30 tabs polyethylene glycol 3350 17 gram 17 g PO DAILY PRN constipation 7 07/26/24 oral powder packet days #14 ea Allergies Allergy/AdvReac Type Severity Reaction Status Date / Time clarithromycin [From Biaxin] Allergy nausea Verified 04/05/24 23:11 clindamycin Allergy shock Verified 04/05/24 23:11 diclofenac Allergy swelling Verified 04/05/24 23:11 enalapril Allergy unknown Verified 04/05/24 23:11 ketorolac [From Toradol] Allergy short of Verified 04/05/24 23:11 breath losartan [From Cozaar] Allergy shock Verified 04/05/24 23:11 nifedipine [From Procardia] Allergy hives Verified 04/05/24 23:11 pregabalin [From Lyrica] Allergy unknown Verified 04/05/24 23:11 Sulfa (Sulfonamide Allergy anaphylasix Verified 04/05/24 23:11 Antibiotics) Review of Systems 2 General: Reports: ROS unobtainable due to medical condition and ROS unobtainable due to mental status PFSH ED 2 PFSH: Medical History (Updated 07/28/24 @ 22:47 by Patel Jones MD) Altered mental status Paranoid Expressive aphasia Anxiety and depression Lives in assisted living facility Rotator cuff tear, right Diabetes mellitus insulin dependent Essential (primary) hypertension Depression due to cerebrovascular accident (CVA) Expressive aphasia Hypomagnesemia Bilateral pneumonia Hyponatremia Hyperkalemia DELORIS (acute kidney injury) Right humeral fracture Metabolic encephalopathy Resolved Acute delirium Resolved Pneumonia due to COVID-19 virus Resolved Poor social situation Multinodular thyroid Acute embolic stroke Recurrent falls Resolved History of CVA (cerebrovascular accident) Acute hypersomnolence disorder LEROY on CPAP Essential hypertension Wernicke dysphasia Diabetes mellitus with neuropathy Mixed hyperlipidemia Surgical History History of nasal sinusotomy History of cholecystectomy History of tonsillectomy History of repair of rotator cuff History of hysterectomy for indication other than malignancy History of bursectomy Hx of adenoidectomy Status post anal fissurectomy History of colonoscopy Family History Mother CAD (coronary artery disease) Other Asthma Cancer Diabetes Heart disease Hypertension Stroke Social History Smoking and tobacco/nicotine status: former use of tobacco/nicotine Alcohol intake: current Alcohol intake frequency: few times a month Substance/Drug Use: never Physical Exam 2 Const: ORIENTATION/CONSCIOUSNESS: Yes confused and Yes patient obtunded HENMT: COMMON NORMALS: normocephalic, atraumatic and hearing grossly normal bilaterally HEAD & SCALP: normocephalic and atraumatic Resp: COMMON NORMALS: normal respiratory effort, No retractions, No use of accessory muscles and clear to auscultation bilaterally AUSCULTATION: clear to auscultation bilaterally Cardio: COMMON NORMALS: No murmurs present (Cardio) RATE: bradycardic R HYTHM: abnormal rhythm (Irregular) GI: COMMON NORMALS: Soft to palpation and No hepatosplenomegaly present A USCULTATION: Yes normoactive bowel sounds PALPATION: Yes Soft to palpation, No Tenderness to palpation present (GI), No Guarding due to palpation present (GI) and Yes No hepatosplenomegaly present Extremity: OTHER: Edema lower extremities Skin: COMMON NORMALS: no rashes or lesions noted GENERAL SKIN EXAM: no rashes or lesions noted Procedures Central Line Placement Right IJ: Time Out Performed: Yes Patient Placed on Monitor/Pulse Ox: Yes MD Prep: mask, gown and gloves Central Line Prep: Chlorhexidine scrub Local Anesthetic: lidocaine 1% Amount of anesthesia used (mL): 5 Ultrasound Used for Placement: Yes Central Line Lumen Inserted: triple Post Procedure: sutured in place and good blood return Patient Tolerated Procedure: well Complications: none and catheter malposition Additional Comments: On initial chest x-ray catheter deep into right side of the heart appears to be almost to the right ventricle. Retracted 4 cm and secured. Repeat chest x-ray shows good positioning. Course 2 Vital Signs: Vital signs: Vital Signs Temperature 98.1 F 07/29/24 04:00 Pulse Rate 62 07/29/24 06:30 Respiratory Rate 16 07/29/24 06:30 Blood Pressure 119/52 07/29/24 06:30 Pulse Oximetry 97 07/29/24 06:30 Oxygen Delivery Me thod Mechanical Ventil ation 07/29/24 06:30 Fraction of Inspir ed Oxygen 40 07/29/24 06:30 [facility] - General Adult Medical Records I reviewed the patient's medical records. Lab Data I reviewed the patient's lab results. 07/29/24 04:32 07/29/24 04:32 Radiology Impressions Chest X-Ray 07/28/24 18:14 IMPRESSION: 1. Right IJ central venous catheter tip near the superior cavoatrial junction. 2. Remainder stable. Pelvis X-Ray 07/28/24 19:32 IMPRESSION: Left femoral line is in expected position overlying the pelvis. Intravascular position cannot be confirmed. Laboratory Results WBC 10.88 10^3/uL (3.29-11.43) 07/28/24 16:35 RBC 3.33 10^6/uL (3.85-5.65) L 07/28/24 16:35 Hgb 8.80 g/dL (11.27-16.99) L 07/28/24 16:35 Hct 29.3 % (36-47) L 07/28/24 16:35 MCV 88.0 fl (85-98) 07/28/24 16:35 MCH 26.4 pg (27-33) L 07/28/24 16:35 MCHC 30.0 g/dL (30-55) 07/28/24 16:35 RDW 16.6 % (12.1-15.1) H 07/28/24 16:35 Plt Count 273 10^3/cmm (157-399) 07/28/24 16:35 MPV 10.8 fL (7.4-10.4) H 07/28/24 16:35 Neut % (Auto) 84.4 % 07/28/24 16:35 Lymph % (Auto) 8.0 % 07/28/24 16:35 Ness % (Auto) 4.9 % 07/28/24 16:35 Eos % (Auto) 1.2 % 07/28/24 16:35 Baso % (Auto) 0.7 % 07/28/24 16:35 Neut # (Auto) 9.18 10^3/uL (1.8-7.7) H 07/28/24 16:35 Lymph # (Auto) 0.9 10^3/uL (0.8-4.8) 07/28/24 16:35 Ness # (Auto) 0.5 10^3/uL (0.2-0.9) 07/28/24 16:35 Eos # (Auto) 0.1 10^3/uL (0.0-0.8) 07/28/24 16:35 Baso # (Auto) 0.1 10^3/uL (0.0-0.1) 07/28/24 16:35 Nucleated RBC % (auto) 0 % 07/28/24 16:35 Nucleated RBCs # 0.0 /100WBC 07/28/24 16:35 Specimen Type Arterial 07/28/24 16:30 Sample Site Radial, right 07/28/24 16:30 ABG pH 7.33 (7.35-7.45) L 07/28/24 16:30 ABG pCO2 35.2 mmHg (35-45) 07/28/24 16:30 ABG pO2 66.6 mmHg (80.0-100.0) L 07/28/24 16:30 ABG PO2/FiO2 Ratio 208 07/28/24 16:30 ABG HCO3 18.3 mmol/L (22-26) L 07/28/24 16:30 ABG O2 Saturation 92.9 07/28/24 16:30 ABG Base Excess -7.0 mmol/L (-2.0-2.0) L 07/28/24 16:30 Thien Test Pos 07/28/24 16:30 A-a O2 Gradient 15.5 mmHg (5-10) H 07/28/24 16:30 Hematocrit 28.8 % (37-47) L 07/28/24 16:30 Hgb O2 Saturation 91.9 % (95-100) L 07/28/24 16:30 Carboxyhemoglobin 1.2 %THgb (0.4-20.1) 07/28/24 16:30 Methemoglobin < 0.0 % (0.4-1.5) L 07/28/24 16:30 Total Hemoglobin 9.4 g/dL (12-16) L 07/28/24 16:30 Sodium 136.0 mmol/L (131-143) 07/28/24 16:30 Potassium 7.3 mmol/L (3.5-5.0) H 07/28/24 16:30 Glucose 178.0 mg/dL (70-115) H 07/28/24 16:30 Ionized Calcium 1.2 mmol/L (1.1-1.4) 07/28/24 16:30 O2 Delivery Device Nc 07/28/24 16:30 O2 Liters/Min 3.0 % 07/28/24 16:30 FiO2 32.0 % 07/28/24 16:30 Farmer Vegetable ID Radha 07/28/24 16:30 Sodium 137 mmol/L (136-145) 07/28/24 16:35 Potassium 7.8 mmol/L (3.5-5.1) H* 07/28/24 16:35 Chloride 102 mmol/L (98-107) 07/28/24 16:35 Carbon Dioxide 21 mmol/L (22-29) L 07/28/24 16:35 Anion Gap 21.8 (5-19) H 07/28/24 16:35 BUN 122 mg/dL (8-23) H* 07/28/24 16:35 Creatinine 5.6 mg/dL (0.5-0.9) H* 07/28/24 16:35 GFR Calculation 7.6 mL/min (90-130) L 07/28/24 16:35 Glucose 168 mg/dL (65-115) H 07/28/24 16:35 Calculated Osmolality 327 mOsm/kg (285-295) H 07/28/24 16:35 Lactic Acid 1.0 mmol/L (0.5-2.2) 07/28/24 16:35 Uric Acid 5.6 mg/dL (2.4-5.7) 07/28/24 16:35 Calcium 11.0 mg/dL (8.5-10.5) H 07/28/24 16:35 Total Bilirubin 0.2 mg/dL (0.15-1.2) 07/28/24 16:35 AST 17 U/L (0-32) 07/28/24 16:35 ALT 25 U/L (0-33) 07/28/24 16:35 Alkaline Phosphatase 131 U/L (35-105) H 07/28/24 16:35 Troponin T Baseline 87 ng/L (0-10) H 07/28/24 16:35 Total Protein 5.9 g/dL (6.6-8.7) L 07/28/24 16:35 Albumin 3.6 g/dL (3.5-5.2) 07/28/24 16:35 Globulin 2.3 g/dL (1.3-4.6) 07/28/24 16:35 Urine Color Yellow (Yellow) 07/28/24 17:02 Urine Appearance Cloudy (CLEAR) A 07/28/24 17:02 Urine pH 5.0 (5-7) 07/28/24 17:02 Ur Specific [place] 1.030 (1.005-1.030) 07/28/24 17:02 Urine Protein 3+ (Negative) A 07/28/24 17:02 Urine Glucose (UA) Negative (Normal) 07/28/24 17:02 Urine Ketones Trace (Negative) 07/28/24 17:02 Urine Blood Negative (Negative) 07/28/24 17:02 Urine Nitrate Negative (Negative) 07/28/24 17:02 Urine Bilirubin Negative (Negative) 07/28/24 17:02 Urine Urobilinogen 1.0 mg/dL (Negative) 07/28/24 17:02 Ur Leukocyte Esterase 1+ (Negative) A 07/28/24 17:02 Urine RBC 3-5 /hpf (0-2) 07/28/24 17:02 Urine WBC 11-20 /hpf (0-5) H 07/28/24 17:02 Ur Squamous Epith Cells 0-5 /hpf (0-5) 07/28/24 17:02 Amorphous Sediment Not Reportable 07/28/24 17:02 Urine Bacteria None seen /hpf (NONE) 07/28/24 17:02 Hyaline Casts 139.43 /lpf 07/28/24 17:02 Ur Random Sodium 10 mmol/L 07/28/24 17:02 Ur Random Potassium 75 mmol/L 07/28/24 17:02 Ur Random Chloride 12 mmol/L 07/28/24 17:02 Discharge Plan Discharge Patient Disposition: Admitted As Inpatient Admit Provider: Patel Jones Condition: Stable Coding Level of Care Code ED Surgical Physician Assistant for Milog Josefina
--- NOTE | 2024-07-28 18:08 | P.CONIM_ITS ---
Providers/Reason For Consult 2 Consulting Physician/Specialty*: karishma byrne md / telenphrology Reason for Consult*: DELORIS on CKD, hyperkalemia Requesting Physician: DR Snow Attending Physician: DR Snow Primary Care Provider: Benigno Jennings DO History of Present Illness History of Present Illness Hilda Wallace is a 64 year old female history of psychiatric illness, heart failure preserved EF/moderate to severe mitral annular calcification with moderate mitral stenosis, grade 1 diastolic dysfunction, pneumonia, COPD. Recently started on Zyprexa and risperidone for agitation on recent admission recent pneumonia. Patient has underlying history of expressive aphasia insulin- dependent diabetes CVA. From a renal perspective her creatinine was in the mid ones in the summer 2023. She had a creatinine of 1 to 1.2 mg/dL in 2022. She had a recent admission from July 15 through July 26, 2024 where her creatinine went up from 2.6 mg/dL on admission which was up from 1.8 mg/dL in March 2024. Her creatinine peaked on recent admission at 3.8 mg/dL on July 23, 2024 and she was discharged on July 26, 2024 with a creatinine of 3.3 mg/dL. Please note that over the last year she developed 3+ proteinuria with 1+ hematuria She presented today with with severe bradycardia - HR 20-230, hypotensive, altered mental status. She was found to have sinus pauses and then question of V. tach. She was found to have a creatinine of 5.6 mg/dL and was found to have a potassium of 7.8 mmol/l, and a lactate of 1- she got atropine, IV calcium and bicarbonate. she was intubated. santiago placed. Per ER physician she is oliguric, edematous, sounds wet, and hypothermic. Renal was called for her hyperkalemic oliguric acute kidney injury and for dialysis. Review of Systems 2 Narrative: intubated and sedated Medications/Allergies Home Medications Medication Instructions Recorded Confirmed Last Taken Type allopurinol 300 mg tablet 300 mg PO DAILY #90 tabs 05/03/20 07/28/24 07/28/24 Rx clopidogrel 75 mg tablet 75 mg PO DAILY 07/08/20 07/28/24 07/28/24 History metoprolol tartrate 25 mg tablet 37.5 mg PO BID 07/08/20 07/28/24 07/28/24 History acetaminophen 325 mg tablet 650 mg PO Q6H PRN PAIN OR ELEVATED 10/03/21 07/28/24 01/15/24 History (Tylenol) TEMP atorvastatin 40 mg tablet 40 mg PO DAILY 10/03/21 07/28/24 03/02/24 History calcium carbonate 500 mg PO Q8H PRN 10/03/21 07/28/24 03/02/24 History gastro-esophageal reflux cetirizine 10 mg tablet 10 mg PO DAILY 10/03/21 07/28/24 07/28/24 History magnesium hydroxide 400 mg/5 mL 30 ml PO DAILY PRN Constipation 10/03/21 07/28/24 Unknown History oral suspension (Milk of Magnesia) omeprazole 20 mg capsule,delayed 20 mg PO DAILY 10/03/21 07/28/24 07/28/24 History release potassium chloride 10 mEq 10 meq PO DAILY #30 caps 09/12/22 07/28/24 07/28/24 Rx capsule,extended release 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 meter,continuous #1 ea 03/12/23 07/28/24 Unknown Rx (Dexcom G7 Computer Architect) 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 sensor (Dexcom G7 #1 ea 03/12/23 07/28/24 Unknown Rx Sensor device) tramadol 50 mg tablet 50 mg PO Q6H PRN pain #120 tabs 11/18/23 07/28/24 03/02/24 Rx ascorbic acid (vitamin C) 500 mg 500 mg PO DAILY 03/03/24 07/28/24 07/28/24 History tablet (Vitamin C) diphenhydramine HCl 25 mg capsule 25 mg PO Q12H PRN Allergy Symptoms 03/03/24 07/28/24 03/02/24 History (Banophen) fluticasone propionate 50 1 spray intranasal Q12H PRN 03/03/24 07/28/24 Unknown History mcg/actuation nasal ALLERGIES spray,suspension lidocaine 5 % topical patch 1 patch topical Q12H PRN Pain 03/03/24 07/28/24 Unknown History ondansetron HCl 4 mg tablet 4 mg PO Q6H PRN Nausea And Vomiting 03/03/24 07/28/24 Unknown History bupropion HCl 150 mg 24 hr tablet, 150 mg PO QAM 07/16/24 07/28/24 07/28/24 History extended release eszopiclone 3 mg tablet 3 mg PO QPM 07/16/24 07/28/24 07/27/24 History lamotrigine 100 mg tablet 100 mg PO TID 07/16/24 07/28/24 07/28/24 History melatonin 10 mg tablet 10 mg PO QPM 07/16/24 07/28/24 07/27/24 History risperidone 1 mg tablet 1 mg PO QAM 07/16/24 07/28/24 07/28/24 History amlodipine 10 mg tablet 10 mg PO DAILY 30 days #30 tabs 07/22/24 07/28/24 07/28/24 Rx duloxetine 60 mg capsule,delayed 60 mg PO DAILY 30 days #30 caps 07/22/24 07/28/24 Unknown Rx release hydralazine 10 mg tablet 10 mg PO Q8H 30 days #90 tabs 07/22/24 07/28/24 07/28/24 Rx insulin aspart U-100 100 unit/mL See Rx Instructions .Route 07/22/24 07/28/24 07/28/24 Rx (3 mL) subcutaneous pen (Novolog .COMPLEX #15 mL FlexPen U-100 Insulin aspart) insulin glargine 100 unit/mL (3 20 unit (0.2 mL) SUBCUT BID 30 07/22/24 07/28/24 03/03/24 Rx mL) subcutaneous pen (Lantus days #12 mL Solostar U-100 Insulin) olanzapine 5 mg tablet 5 mg PO BEDTIME 30 days #30 tabs 07/22/24 07/28/24 07/27/24 Rx furosemide 40 mg tablet 40 mg PO EVERY OTHER DAY 30 days 07/26/24 07/28/24 07/28/24 Rx #30 tabs polyethylene glycol 3350 17 gram 17 g PO DAILY PRN constipation 7 07/26/24 07/28/24 Unknown Rx oral powder packet days #14 ea amoxicillin 875 mg-potassium 1 tab PO BID 07/28/24 07/28/24 07/28/24 History clavulanate 125 mg tablet Allergies Allergy/AdvReac Type Severity Reaction Status Date / Time clarithromycin [From Biaxin] Allergy nausea Verified 04/05/24 23:11 clindamycin Allergy shock Verified 04/05/24 23:11 diclofenac Allergy swelling Verified 04/05/24 23:11 enalapril Allergy unknown Verified 04/05/24 23:11 ketorolac [From Toradol] Allergy short of Verified 04/05/24 23:11 breath losartan [From Cozaar] Allergy shock Verified 04/05/24 23:11 nifedipine [From Procardia] Allergy hives Verified 04/05/24 23:11 pregabalin [From Lyrica] Allergy unknown Verified 04/05/24 23:11 Sulfa (Sulfonamide Allergy anaphylasix Verified 04/05/24 23:11 Antibiotics) PFSH Acute 2 PFSH: Medical History Paranoid Expressive aphasia Altered mental status Anxiety and depression Lives in assisted living facility Rotator cuff tear, right Diabetes mellitus insulin dependent Essential (primary) hypertension Depression due to cerebrovascular accident (CVA) Expressive aphasia Hypomagnesemia Bilateral pneumonia Hyponatremia Hyperkalemia DELORIS (acute kidney injury) Right humeral fracture Metabolic encephalopathy Resolved Acute delirium Resolved Pneumonia due to COVID-19 virus Resolved Poor social situation Multinodular thyroid Acute embolic stroke Recurrent falls Resolved History of CVA (cerebrovascular accident) Acute hypersomnolence disorder LEROY on CPAP Essential hypertension Wernicke dysphasia Diabetes mellitus with neuropathy Mixed hyperlipidemia Surgical History History of nasal sinusotomy History of cholecystectomy History of tonsillectomy History of repair of rotator cuff History of hysterectomy for indication other than malignancy History of bursectomy Hx of adenoidectomy Status post anal fissurectomy History of colonoscopy Family History Mother CAD (coronary artery disease) Other Asthma Cancer Diabetes Heart disease Hypertension Stroke Social History Smoking and tobacco/nicotine status: former use of tobacco/nicotine Alcohol intake: current Alcohol intake frequency: few times a month Substance/Drug Use: never Vitals/I&O/Wt Last Vital Signs Pulse 57 L 07/28/24 17:03 Resp 16 07/28/24 16:54 Pulse Ox 94 07/28/24 16:50 O2 Del Method Mechanical Ventilation 07/28/24 16:50 FiO2 100 07/28/24 16:54 Physical Exam 2 Narrative: Patient is hypothermic hypotensive irregular heartbeat. Obese ventilated FiO2 of 80%. HEENT normocephalic atraumatic. Neck positive JVP lying down lungs have crackles. Heart irregular with systolic murmur. Abdomen is soft positive bowel sounds. Extremities bilateral edema. Neuro confused and sedated. Data 07/28/24 16:35 07/28/24 16:35 A&P Assessment and plan (1) Acute kidney injury superimposed on CKD: Patient is a 64-year-old lady with obesity multiple medical problems including heart failure reduced EF psychiatric medical illness hypertension and diabetes. The patient had a creatinine of 1.3 to 1.5 mg/dL in the winter 2023. In the summer 2023 creatinine peaked at 1.9 mg/dL. Patient was admitted to the hospital on July 15, 2024 with a creatinine of 2.6 mg/dL and creatinine peaked at 3.8 mg/dL on July 23, 2024. Patient had improving renal failure with creatinine down to 3.3 mg/dL 2 days ago on July 26, 2024. Patient presents today with altered mental status hypotension bradycardia hypothermia and found to have hyperkalemia with a potassium of 7.8 and creatinine of 5.6 mg/dL. Patient has been intubated and treated with calcium and bicarbonate. Patient remains hyperkalemia with arrhythmias and renal was called for dialysis. 1. Renal insufficiency patient had CKD stage III as of last year and now is going into worsening renal failure. Patient has proteinuria and some hematuria will send all serologies. Patient no hydronephrosis on recent ultrasound. Patient should be off of DAVID inhibitor's ARB and NSAIDs. Please ensure that is correct. -As patient is oliguric hyperkalemic and acute kidney injury we will initiate dialysis tonight. Will give patient lactated Ringer's until she starts dialysis. Can give Lasix as needed. Check CPK. Will check a salicylate level If fails hemodialysis we will have to consider CRRT however hemodialysis will normalize her potassium sooner 2. Hypothermia check TSH. Check urine and blood cultures. Diabetic control as per hospitalist. Patient has hypercalcemia but was given multiple amps of calcium on admission. Will monitor The patient was seen and examined using audiovisual equipment with the aid of a nurse and ER physician. Case discussed in detail with the ER physician with Dr. Snow. The patient has altered mental status and is not able to consent at this time patient needs emergent dialysis for acute kidney injury and hyperkalemia. Plan Emergent dialysis tonight. Consult Attestations 2 Medical Necessity Statement: Acute on chronic renal failure, hyperkalemia, arrhythmia Time Spent in Patient Care: Greater than 35 minutes (>than 50% of time spent in counselling and/or direct pt care on unit) . Coding Level of Care Code Acute Code for Chg Fwd Diagnoses Acute kidney injury superimposed on CKD N17.9; N18.9
--- NOTE | 2024-07-28 18:14 | XRR_ITS ---
PROCEDURE INFORMATION: Exam: XR Chest Exam date and time: 07/28/2024 6:19 PM Age: 64 years old Clinical indication: Device placement; Other: Central line TECHNIQUE: Imaging protocol: Radiologic exam of the chest. Views: 1 view. COMPARISON: CR XR chest 1V portable [id number] 07/28/2024 4:34 PM FINDINGS: Tubes, catheters and devices: Endotracheal tube tip is 3.2 cm above the obed. Right IJ central venous catheter tip is near the superior cavoatrial junction. Orogastric tube courses below the diaphragm and off the field of view. Left pacer pad again seen. Lungs: Lung volumes remain diminished with scattered hypoventilatory changes. No definite focal airspace disease. Pleural spaces: Unremarkable. No pleural effusion. No pneumothorax. Heart/Mediastinum: Unremarkable. No cardiomegaly. Bones/joints: Unremarkable. XR/XR chest 1V portable [id number] IMPRESSION: 1. Right IJ central venous catheter tip near the superior cavoatrial junction. 2. Remainder stable.
[2024-07-28 18:28] LABS: ABG PCO2 33.1 mmHg (35-45); ABG PH Result 7.44 (7.35-7.45); Arterial Blood Gas Hematocrit 28.8 % (37-47); Base Excess ABG -1.1 mmol/L (-2.0-2.0); Blood Gas Sample Type Arterial; Carboxyhemoglobin 0.9 %THgb (0.4-20.1); HCO3 ABG 22.6 mmol/L (22-26); HGB O2 Sat 98.9 % (95-100); Ionized Calcium Level - ABG 1.3 mmol/L (1.1-1.4); Methemoglobin 0.5 % (0.4-1.5); Oxygen Saturation ABG > 99.1; Potassium Level - ABG 5.9 mmol/L (3.5-5.0); Total Hemoglobin 9.4 g/dL (12-16)
[2024-07-28 18:29] LABS: Alveolar-Arterial Oxygen Gradi 42.9 mmHg (5-10); Blood Gas Operator Identificat MONRO; Blood Gas Sample Site Radial, right; Blood Gas Tidal Volume 0.48; Oxygen Device VENT; PO2 FiO2 Ratio Arterial Blood 248
--- NOTE | 2024-07-28 18:45 | US_ITS ---
WS: [id number] RENAL ULTRASOUND HISTORY: carolyn COMPARISON: 07/16/2024 TECHNIQUE: 2-D and color Doppler imaging of the kidney submitted. Right kidney: 10.5 cm x 6.2 cm x 5.3 cm. Cortex: 1.2 cm Normal echogenicity with no hydronephrosis or mass. Left kidney: 11.0 cm x 6.9 cm x 5.5 cm. Cortex: 1.4 cm Normal echogenicity with no hydronephrosis or mass. Aorta: Normal. Urinary Bladder: Nondistended. [place] catheter is present. US/US renal BI* [id number] IMPRESSION: Normal renal ultrasound.
[2024-07-28 18:49] LABS: ABG PCO2 35.2 mmHg (35-45); ABG PH Result 7.33 (7.35-7.45); Alveolar-Arterial Oxygen Gradi 15.5 mmHg (5-10); Arterial Blood Gas Hematocrit 28.8 % (37-47); Blood Gas Allen Test Pos; Blood Gas Operator Identificat MONRO; Blood Gas Sample Site Radial, right; Blood Gas Sample Type Arterial; Carboxyhemoglobin 1.2 %THgb (0.4-20.1); HCO3 ABG 18.3 mmol/L (22-26); HGB O2 Sat 91.9 % (95-100); Ionized Calcium Level - ABG 1.2 mmol/L (1.1-1.4); Methemoglobin < 0.0 % (0.4-1.5); Oxygen Device NC; Oxygen Saturation ABG 92.9; PO2 ABG 66.6 mmHg (80.0-100.0); PO2 FiO2 Ratio Arterial Blood 208; Potassium Level - ABG 7.3 mmol/L (3.5-5.0); Total Hemoglobin 9.4 g/dL (12-16)
[2024-07-28] MEDS: sodium polystyrene sulfonate 15 gm/60 mL Btl 30 GM PO (18:49)
--- NOTE | 2024-07-28 18:51 | PC.NURSE ---
While triaging pt, to pt bedside. Pt bradycardic. Verbal orders received pt was given 1 mg of atropine @1623, 1 amp of Calcium Chloride @1624, 1 amp of Calcium Chloride @1628, 1 amp of Bicarb @1626, 10 mg of Vecuronium @ 1637, 30 mg of Etomidate @ 1636. Pt was intubated following administration of RSI medications, 22 @ teeth, 8.0 ETT.
[2024-07-28 19:00] LABS: Bilirubin Urine Negative (Negative); Blood Urine Negative (Negative); Glucose Urine UA Negative (Normal); Ketones Urine Trace (Negative); Leukocyte Esterase Urine 1+ (Negative); Nitrate Urine Negative (Negative); Protein Urine 3+ (Negative); Urine Appearance Cloudy (CLEAR); Urine Color Yellow (Yellow)
[2024-07-28 19:05] LABS: Add Urine Microscopic? YES; Bacteria Urine None Seen /hpf; Hyaline Casts Urine 139.43 /lpf; Squamous Epithelial Cell Urine 0-5 /hpf (0-5)
[2024-07-28 19:15] LABS: Potassium, Radom Urine 75 mmol/L
--- NOTE | 2024-07-28 19:15 | P.HP_ITS ---
Providers/Chief Complaint 2 Admitting Physician: Patel Jones MD Primary Care Provider: Benigno Jennings DO Chief Complaint: Weakness, Low heart rate History of Present Illness Hilda Wallace is a 64 year old female known h/o anxiety with depression, paranoia, diabetes mellitus, CVA, and Warnicke's dysphasia, and dysphasia secondary to CVA, CKD with baseline creatinine of 1.8 more recently going up to 2.4, hypothyroidism, assisted-living resident, type 2 diabetes mellitus, obstructive sleep apnea on CPAP, hypertension who was most recently in hospital from 07/15 to 07/26 when she was treated for agitation, pneumonia, diastolic heart failure and DELORIS on CKD, diagnosed of rhinovirus with adjustment of psych and CHF medications as per her renal functions. She was sent back to the ER today because of altered mental status. In the ER she was found to have severe bradycardia with arrhythmia subsequently found to have hyperkalemia for which she was treated with 2 of IV calcium gluconate, D10 and insulin 10 units, dopamine after which her rhythm became more stable with heart rate running in 40s. During this time patient was intubated. On examination patient has been mechanically ventilated with sedation of fentanyl and Versed, dopamine of 5 with heart rate running in high 40s to low 50s. Blood work showing potassium of more than 7 with creatinine of more than 5. Nephrology has been consulted. Because of poor IV access Central line has been placed. Medications/Allergies Home Medications Medication Instructions Recorded Confirmed Last Taken Type allopurinol 300 mg tablet 300 mg PO DAILY #90 tabs 05/03/20 07/28/24 07/28/24 Rx clopidogrel 75 mg tablet 75 mg PO DAILY 07/08/20 07/28/24 07/28/24 History metoprolol tartrate 25 mg tablet 37.5 mg PO BID 07/08/20 07/28/24 07/28/24 History acetaminophen 325 mg tablet 650 mg PO Q6H PRN PAIN OR ELEVATED 10/03/21 07/28/24 01/15/24 History (Tylenol) TEMP atorvastatin 40 mg tablet 40 mg PO DAILY 10/03/21 07/28/24 03/02/24 History calcium carbonate 500 mg PO Q8H PRN 10/03/21 07/28/24 03/02/24 History gastro-esophageal reflux cetirizine 10 mg tablet 10 mg PO DAILY 10/03/21 07/28/24 07/28/24 History magnesium hydroxide 400 mg/5 mL 30 ml PO DAILY PRN Constipation 10/03/21 07/28/24 Unknown History oral suspension (Milk of Magnesia) omeprazole 20 mg capsule,delayed 20 mg PO DAILY 10/03/21 07/28/24 07/28/24 History release potassium chloride 10 mEq 10 meq PO DAILY #30 caps 09/12/22 07/28/24 07/28/24 Rx capsule,extended release 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 meter,continuous #1 ea 03/12/23 07/28/24 Unknown Rx (Dexcom G7 Wet Process Miller) 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 sensor (Dexcom G7 #1 ea 03/12/23 07/28/24 Unknown Rx Sensor device) tramadol 50 mg tablet 50 mg PO Q6H PRN pain #120 tabs 11/18/23 07/28/24 03/02/24 Rx ascorbic acid (vitamin C) 500 mg 500 mg PO DAILY 03/03/24 07/28/24 07/28/24 History tablet (Vitamin C) diphenhydramine HCl 25 mg capsule 25 mg PO Q12H PRN Allergy Symptoms 03/03/24 07/28/24 03/02/24 History (Banophen) fluticasone propionate 50 1 spray intranasal Q12H PRN 03/03/24 07/28/24 Unknown History mcg/actuation nasal ALLERGIES spray,suspension lidocaine 5 % topical patch 1 patch topical Q12H PRN Pain 03/03/24 07/28/24 Unknown History ondansetron HCl 4 mg tablet 4 mg PO Q6H PRN Nausea And Vomiting 03/03/24 07/28/24 Unknown History bupropion HCl 150 mg 24 hr tablet, 150 mg PO QAM 07/16/24 07/28/24 07/28/24 History extended release eszopiclone 3 mg tablet 3 mg PO QPM 07/16/24 07/28/24 07/27/24 History lamotrigine 100 mg tablet 100 mg PO TID 07/16/24 07/28/24 07/28/24 History melatonin 10 mg tablet 10 mg PO QPM 07/16/24 07/28/24 07/27/24 History risperidone 1 mg tablet 1 mg PO QAM 07/16/24 07/28/24 07/28/24 History amlodipine 10 mg tablet 10 mg PO DAILY 30 days #30 tabs 07/22/24 07/28/24 07/28/24 Rx duloxetine 60 mg capsule,delayed 60 mg PO DAILY 30 days #30 caps 07/22/24 07/28/24 Unknown Rx release hydralazine 10 mg tablet 10 mg PO Q8H 30 days #90 tabs 07/22/24 07/28/24 07/28/24 Rx insulin aspart U-100 100 unit/mL See Rx Instructions .Route 07/22/24 07/28/24 07/28/24 Rx (3 mL) subcutaneous pen (Novolog .COMPLEX #15 mL FlexPen U-100 Insulin aspart) insulin glargine 100 unit/mL (3 20 unit (0.2 mL) SUBCUT BID 30 07/22/24 07/28/24 03/03/24 Rx mL) subcutaneous pen (Lantus days #12 mL Solostar U-100 Insulin) olanzapine 5 mg tablet 5 mg PO BEDTIME 30 days #30 tabs 07/22/24 07/28/24 07/27/24 Rx furosemide 40 mg tablet 40 mg PO EVERY OTHER DAY 30 days 07/26/24 07/28/24 07/28/24 Rx #30 tabs polyethylene glycol 3350 17 gram 17 g PO DAILY PRN constipation 7 07/26/24 07/28/24 Unknown Rx oral powder packet days #14 ea amoxicillin 875 mg-potassium 1 tab PO BID 07/28/24 07/28/24 07/28/24 History clavulanate 125 mg tablet Allergies Allergy/AdvReac Type Severity Reaction Status Date / Time clarithromycin [From Biaxin] Allergy nausea Verified 04/05/24 23:11 clindamycin Allergy shock Verified 04/05/24 23:11 diclofenac Allergy swelling Verified 04/05/24 23:11 enalapril Allergy unknown Verified 04/05/24 23:11 ketorolac [From Toradol] Allergy short of Verified 04/05/24 23:11 breath losartan [From Cozaar] Allergy shock Verified 04/05/24 23:11 nifedipine [From Procardia] Allergy hives Verified 04/05/24 23:11 pregabalin [From Lyrica] Allergy unknown Verified 04/05/24 23:11 Sulfa (Sulfonamide Allergy anaphylasix Verified 04/05/24 23:11 Antibiotics) PFSH Acute 2 PFSH: Medical History (Updated 07/28/24 @ 22:47 by Patel Jones MD) Altered mental status Paranoid Expressive aphasia Anxiety and depression Lives in assisted living facility Rotator cuff tear, right Diabetes mellitus insulin dependent Essential (primary) hypertension Depression due to cerebrovascular accident (CVA) Expressive aphasia Hypomagnesemia Bilateral pneumonia Hyponatremia Hyperkalemia DELORIS (acute kidney injury) Right humeral fracture Metabolic encephalopathy Resolved Acute delirium Resolved Pneumonia due to COVID-19 virus Resolved Poor social situation Multinodular thyroid Acute embolic stroke Recurrent falls Resolved History of CVA (cerebrovascular accident) Acute hypersomnolence disorder LEROY on CPAP Essential hypertension Wernicke dysphasia Diabetes mellitus with neuropathy Mixed hyperlipidemia Surgical History History of nasal sinusotomy History of cholecystectomy History of tonsillectomy History of repair of rotator cuff History of hysterectomy for indication other than malignancy History of bursectomy Hx of adenoidectomy Status post anal fissurectomy History of colonoscopy Family History Mother CAD (coronary artery disease) Other Asthma Cancer Diabetes Heart disease Hypertension Stroke Social History Smoking and tobacco/nicotine status: former use of tobacco/nicotine Alcohol intake: current Alcohol intake frequency: few times a month Substance/Drug Use: never Vitals/I&O/Wt Last Vital Signs Temp 94.0 F L 07/28/24 17:45 Pulse 56 L 07/28/24 18:54 Resp 16 07/28/24 18:23 BP 88/44 07/28/24 18:54 Pulse Ox 93 07/28/24 18:54 O2 Del Method Mechanical Ventilation 07/28/24 16:50 FiO2 40 07/28/24 18:38 Weight last 48 hrs Weight 104.326 kg Physical Exam 2 Narrative: General: Intubated, sedated HEENT: PERRLA, pupils bilaterally equal and reactive Pulmonary: Bilateral bronchial breath sounds all over lung prater, occasional rhonchi, fine crackles present bilaterally in lower zone CVS: S1-S2, diastolic murmur at apex, bradycardia, occasional missed beat, no gallops, no rubs Abdomen: Soft, nontender, no organomegaly, bowel sounds present Neuro: Intubated, sedated Quick SOFA Score: Respiratory Rate: 16 Blood Pressure: 119/52 [place] Coma Scale: 6 qSOFA Score: 1 If qSOFA score 2 or greater, continue: PaO2/FiO2 Ratio (mmHg): 174 Blood Pressure Mean: 74 Dopamine Current Rate (?g/kg/min): 5 Bilirubin (mg/dl): 0.4 Platelets (x10?/ml): 301 Creatinine (mg/dl): 4.2 SOFA Score: 11 Evaluation: Current stage of sepsis: septic shock Sepsis stage criteria used: [facility] Sep-1 and Sepsis-3 Crystalloid fluids: no fluids ordered Reasons: renal failure Blood cultures ordered: Yes Possible source: pulmonary Focused Exam: Vital signs: Temp Pulse Resp BP Pulse Ox O2 Del Method FiO2 07/29/24 06:30 62 16 119/52 97 Mechanical Ventila tion 40 07/29/24 06:00 62 16 78/53 95 Mechanical Ventila tion 40 07/29/24 06:00 60 07/29/24 05:52 16 96 40 07/29/24 05:30 60 16 116/49 96 Mechanical Ventila tion 40 07/29/24 05:00 60 16 112/49 96 Mechanical Ventila tion 40 07/29/24 04:30 61 16 111/45 96 Mechanical Ventila tion 40 07/29/24 04:00 98.1 F 61 16 113/48 97 Mechanical Ventila tion 40 07/29/24 03:30 62 16 112/48 97 Mechanical Ventila tion 40 07/29/24 03:00 62 16 122/52 96 Mechanical Ventila tion 40 07/29/24 02:51 16 95 40 07/29/24 02:30 63 16 114/48 95 Mechanical Ventila tion 40 07/29/24 02:00 63 16 112/51 95 Mechanical Ventila tion 40 07/29/24 01:30 63 16 101/63 93 Mechanical Ventila tion 40 07/29/24 01:00 66 16 108/54 95 Mechanical Ventila tion 40 07/29/24 00:45 61 132/57 99 Mechanical Ventila tion 40 07/29/24 00:30 67 126/60 98 Mechanical Ventila tion 40 07/29/24 00:15 68 129/62 99 Mechanical Ventila tion 40 07/29/24 00:00 98.1 F 70 16 134/65 97 Mechanical Ventila tion 40 07/28/24 23:45 67 16 126/70 97 Mechanical Ventila tion 40 07/28/24 23:30 68 16 133/62 98 Mechanical Ventila tion 40 07/28/24 23:18 16 97 40 07/28/24 23:15 68 16 129/78 97 Mechanical Ventila tion 40 07/28/24 23:00 67 16 131/64 97 Mechanical Ventila tion 40 07/28/24 22:45 65 16 119/68 97 Mechanical Ventila tion 40 07/28/24 22:30 65 16 128/59 97 Mechanical Ventila tion 50 07/28/24 22:15 64 16 113/68 100 Mechanical Ventila tion 50 07/28/24 22:00 70 07/28/24 22:00 66 16 94/55 91 Mechanical Ventila tion 50 07/28/24 22:00 50 07/28/24 21:45 66 16 101/62 93 Mechanical Ventila tion 50 07/28/24 21:40 Mechanical Ventila tion 07/28/24 21:30 16 90/51 92 Mechanical Ventila tion 50 07/28/24 21:15 71 16 107/56 92 Mechanical Ventila tion 50 07/28/24 21:00 69 16 109/58 90 Mechanical Ventila tion 50 07/28/24 20:45 70 16 99/55 90 Mechanical Ventila tion 50 07/28/24 20:30 72 16 95/61 90 Mechanical Ventila tion 50 07/28/24 20:26 16 89 L 80 07/28/24 20:17 40 L 07/28/24 20:15 55 L 16 95/65 90 Mechanical Ventila tion 40 07/28/24 20:13 94.8 F L 72 16 95/65 90 Mechanical Ventila tion 540 07/28/24 19:56 50 L 19 H 83/49 93 Date exam was performed: 07/29/24 Time exam was performed: 08:19 2 Sepsis Screen No Definite Risk 07/28/24 18:54 Respiratory Rate 16 breaths/min (12 - 18) 07/29/24 06:30 Blood Pressure 119/52 mmHg 07/29/24 06:30 [place] Coma Scale Score 6 07/29/24 04:00 Quick SOFA Score 2 07/29/24 07:27 SOFA Score: 2 ABG PO2/FiO2 Ratio 174 07/29/24 03:07 [place] Coma Scale Score 6 07/29/24 04:00 Blood Pressure Mean 74 mmHg 07/29/24 06:30 Dopamine Current Rate 5 07/29/24 07:27 Total Bilirubin 0.4 mg/dL (0.15-1.2) 07/29/24 04:32 Platelet Count 301 10^3/cmm (157-399) 07/29/24 04:32 Creatinine 4.2 mg/dL (0.5-0.9) H 07/29/24 04:32 SOFA Score 12 07/29/24 07:27 Data 07/29/24 04:32 07/29/24 04:32 Micro: Microbiology 07/28/24 18:05 Blood Culture - Preliminary Blood SPECIMEN COLLECTED 07/28/24 18:00 Blood Culture - Preliminary Blood SPECIMEN COLLECTED A&P Assessment and plan (1) Shock: (2) Altered mental status: (3) Bradycardia: (4) Respiratory failure: (5) Hyperkalemia: (6) Acute kidney injury superimposed on CKD: (7) CHF (congestive heart failure): (8) Essential hypertension: (9) Anemia: (10) Insulin dependent type 2 diabetes mellitus: Plan 64-year-old female with past medical history of CKD who was recently discharged to assisted living after getting treated for pneumonia, DELORIS and adjusting of antipsychotics presents back to the ER today with altered mental status found to have bradycardia arrhythmia and shock in setting of hyperkalemia, DELORIS on CKD requiring mechanical ventilation, vasopressor. Hyperkalemia: Already treated with D10 and 10 units of IV insulin along with 2 g of IV calcium gluconate. Sodium bicarb infusion running. Repeat BMP stat. Presenting BMP showed potassium of 7.8 with creatinine of more than 5. Will consult nephrology with concerns for emergent dialysis requirement. If nephrology is agreeable we will plan for temporary dialysis catheter access. DELORIS on CKD:Baseline creatinine in past 1 year seems to be 1.6-2.4. On previous admission peaked up to 3.8. Medical decompression done for nephrotoxic drugs. Will confirm patient was not getting discontinued potassium and is at assisted living. [place] catheter. Strict input charting. Nephrology consult for possible need for dialysis versus CRRT. Check renal ultrasound, urinalysis, urine lites, urine creatinine. Further investigation as per nephrology team. Shock: Most likely cardiogenic in nature versus septic. Keep mean artery pressure 65. Currently on dopamine. Will continue to avoid bradycardia. If needed will add Levophed. Check blood culture, urinalysis, sputum culture. Check MRSA swab, procalcitonin. Empirically start patient on IV vancomycin and Zosyn for now. MRSA swab is negative will plan to discontinue vancomycin. Once patient is more stable we will plan for CT chest abdomen pelvis with contrast. Recent echocardiogram within last 1 week showed an EF of 50 to 55%, grade 1 diastolic dysfunction, moderate MS, mild MR, mild aortic stenosis with aortic valve area of 2.1. Depending on hemodynamics will plan for limited echocardiogram to rule out pericardial effusion. Respiratory failure: Currently on mechanical ventilator. Sedate with fentanyl and Versed. Keep mean artery pressure over 65, saturation over 92. Repeat ABG and decrease FiO2 accordingly. Repeat chest x-ray and ABG every morning while intubated. Follow-up sputum culture. Type 2 diabetes mellitus: Insulin sliding scale every 4 hours. Monitor for metabolic acidosis. Most recent A1c of 7.3 in March. Chronic anemia: Monitor hemoglobin. Does have history of chronic anemia. Baseline hemoglobin seems to be running from 8.6-9.8. Appreciate recent iron panel, vitamin B12 and folate levels. CODE STATUS: It seems patient has court appointed guardian. Full code. Will discuss further with court appointed guardian. Protonix for PUD prophylaxis Heparin for DVT prophylaxis. Attestations 2 Medical Necessity Statement*: Admission for more than 2 midnights for management of shock, hyperkalemia leading to bradycardia arrhythmia. Patient with DELORIS on CKD currently in respiratory failure on mechanical ventilation Critical Care Time: The high probability of a clinically significant, sudden or life threatening deterioration of the patient's [cardiac, renal, pulmonary, neurological, emergent dialysis] system(s) required my full and direct attention, intervention and personal management. The critical care time is as shown. This time is in addition to time spent performing any reported procedures but includes the following: [x] Data and vital sign review and interpretation [x] Patient assessment, examination and intervention [x] Documentation [x] Medication orders and management Critical Care Time (min): 90 Coding Level of Care Code Critical Care >/= 30 minutes Critical care time (in minutes): 90 The high probability of a clinically significant, sudden or life threatening deterioration, as referenced in this documentation, required my full and direct attention, intervention and personal management. The critical care time shown is in addition to time spent performing any reported separately billable procedures and includes the following: [x] Data and vital sign review and interpretation [x ] Patient assessment, examination and intervention [x] Medication orders and management [x] Patient/Family updates as able [x] Care Coordination and Documentation. Other Coding Information This patient has a high probability of clinically significant, sudden or life threatening deterioration of the patient's (neurological/pulmonary/cardiac/renal/ID/endocrine) systems required my full, direct attention, the highest level of physician preparedness for urgent intervention and personal management. I managed/supervised life or organ supporting interventions that required frequent physician assessment. I devoted my full attention in the ICU to the direct care of this patient for the period of time indicated above. Time I spent with family or surrogate(s) is included only if the patient was incapable of providing necessary information or participating in decision making. This time includes the following services provided: Telemetry review Mechanical Ventilation Hemodynamic interpretation, assessment and management Review and interpretation of CXR Review and interpretation of lab values Review and interpretation of microbiologic data and culture results Review of medications and administration Review and interpretation of Nutrition requirements and management Discussion of management with other consultants and services Clinical update to family members Diagnoses Shock R57.9 Altered mental status R41.82 Bradycardia R00.1 Respiratory failure J96.90 Hyperkalemia E87.5 Acute kidney injury superimposed on CKD N17.9; N18.9 CHF (congestive heart failure) I50.9 Essential hypertension I10 Anemia D64.9 Insulin dependent type 2 diabetes mellitus E11.9; Z79.4
[2024-07-28 19:23] LABS: Urine Random Chloride 12 mmol/L; Urine Random Sodium 10 mmol/L
[2024-07-28] MEDS: norepinephrine 4 MG/250 ML BAG 7.5 MG IV (19:30)
[2024-07-28 19:32] LABS: Uric Acid 5.6 mg/dL (2.4-5.7)
--- NOTE | 2024-07-28 19:32 | XRR_ITS ---
PROCEDURE INFORMATION: Exam: XR Pelvis Exam date and time: 07/28/2024 7:30 PM Age: 64 years old Clinical indication: Device placement; Other: Left femoral central line placement TECHNIQUE: Imaging protocol: Radiologic exam of the pelvis. Views: 1 or 2 view. COMPARISON: CT abdomen pelvis wo con [id number] 07/25/2024 3:02 PM FINDINGS: Tubes, catheters and devices: Left femoral line tip projects over the left hemipelvis in the expected location of the external iliac vessels. Bones/joints: There is mild degenerative disease of both hips. Bony pelvis is unremarkable. Soft tissues: Visible soft tissues are unremarkable. XR/XR pelvis 1-2V* [id number] IMPRESSION: Left femoral line is in expected position overlying the pelvis. Intravascular position cannot be confirmed.
[2024-07-28] MEDS: midazolam hcl 100 MG/100 ML BAG IV (19:55)
[2024-07-28] MEDS: fentaNYL 1,000 MCG/100 ML BAG 10 MCG IV (19:55)
--- NOTE | 2024-07-28 19:55 | PC.NURSE ---
This nurse transported pt from ED to ICU via gurney along with RT. Meds started in ED before arrival to ICU includes dopamine running at 5 mcg/kg min, versed at 5 mcg/min, fentanyl at 100 mgc/min, levophed at 8 mcg/min. Orders clarified upon arrival to room. Medications given in ED reviewed and clarified with RANDY JANE updated to reflect current treatments.
[2024-07-28] MEDS: piperacillin-tazobactam 3.375 GM in sodium chloride 0.9% (plus) 50 ML IV (20:56)
[2024-07-28] MEDS: pantoprazole 40 mg SDV IVP (20:56)
[2024-07-28] MEDS: FUROsemide 10 mg/mL SDV 10mL 100 MG IVP ×2 (20:57→22:22)
[2024-07-28] MEDS: insulin lispro 100 unit/1 mL SUBCUT (20:58)
[2024-07-28] MEDS: lamoTRIgine 100 mg Tablet PO (20:58)
[2024-07-28] MEDS: OLANZapine 5 mg TABLET PO (20:58)
[2024-07-28] MEDS: DOPamine drip 400 MG/250 ML PREMIX 19.56 MG IV (21:03)
[2024-07-28 21:05] LABS: Glucose Point of Care 277 mg/dL (70-110)
[2024-07-28] MEDS: heparin, porcine 1,000 unit/mL INJ 10 mL 10000 UNIT HE (21:35)
--- NOTE | 2024-07-28 21:43 | PHA.VACGOAL ---
Vancomycin Goal - Goal Vancomycin Goal:: 15-20 mg/L Vancomycin Indication:: Pneumonia - Therapy Current therapy:: Pip/Tazo Day of therpy:: Day 1 of [] Actual body weight (kg): 230 lb - Data Labs: WBC 10.88 10^3/uL (3.29-11.43) 07/28/24 16:35 RBC 3.33 10^6/uL (3.85-5.65) L 07/28/24 16:35 Hgb 8.80 g/dL (11.27-16.99) L 07/28/24 16:35 Hct 29.3 % (36-47) L 07/28/24 16:35 MCV 88.0 fl (85-98) 07/28/24 16:35 MCH 26.4 pg (27-33) L 07/28/24 16:35 MCHC 30.0 g/dL (30-55) 07/28/24 16:35 RDW 16.6 % (12.1-15.1) H 07/28/24 16:35 Sodium 137 mmol/L (136-145) 07/28/24 16:35 Potassium 7.8 mmol/L (3.5-5.1) H* 07/28/24 16:35 Chloride 102 mmol/L (98-107) 07/28/24 16:35 Carbon Dioxide 21 mmol/L (22-29) L 07/28/24 16:35 Anion Gap 21.8 (5-19) H 07/28/24 16:35 BUN 122 mg/dL (8-23) H* 07/28/24 16:35 Creatinine 5.6 mg/dL (0.5-0.9) H* 07/28/24 16:35 GFR Calculation 7.6 mL/min (90-130) L 07/28/24 16:35 Last dialysis session:: Last session (RECEIVING HD TONIGHT (07/28/2024) UPON ADMISSION TO ICU) Treatment plan:: new consult Regimen:: LOADING DOSE OF 2g ORDERED FOR PATIENT TO RECEIVE POST DIALYSIS Follow up:: RANDOM LEVEL TO BE DRAWN WITH AM LABS ON 07/30 WILL CONTINUE TO MONITOR AND FOLLOW UP DAILY.
[2024-07-28 21:48] LABS: Salicylate 1.8 mg/dL (3-10)
[2024-07-28 21:53] LABS: Troponin 5 2HR 86.62 ng/L (0-10)
[2024-07-28 21:54] LABS: Troponin 5 2HR Delta -0.38 ABS# (0-10)
[2024-07-28 21:59] LABS: Procalcitonin 0.34 ng/mL (0-0.5)
[2024-07-28 22:09] LABS: Hepatitis B Surface AB 10.3 (11.5-1000)
[2024-07-28 22:10] LABS: Carbon Dioxide 22 mmol/L (22-29)
[2024-07-28] MEDS: heparin 5,000 unit/mL INJ 1 mL 5000 UNIT SUBCUT (22:22)
[2024-07-28 22:26] LABS: Anion Gap 22.1 (5-19); Chloride 97 mmol/L (98-107); Glomerular Filtration Rate 6.8 mL/min (90-130); Glucose 301 mg/dL (65-115); Potassium 6.1 mmol/L (3.5-5.1); Sodium 135 mmol/L (136-145)
[2024-07-28 22:29] LABS: Osmolality Calculated 332 mOsm/kg (285-295)
[2024-07-28 22:31] LABS: Blood Urea Nitrogen 128 mg/dL (8-23); Creatinine Clr Calc Pharmacy 11.9533
[2024-07-28] MEDS: heparin, porcine 1,000 unit/mL INJ 10 mL 10000 UNIT INTRACATH (22:36)
[2024-07-28 22:41] LABS: Hepatitis B Surface Antigen Non-Reactive (Nonreactive); Hepatitis C Virus Antibody Non-Reactive (Nonreactive)
[2024-07-28 23:07] LABS: Troponin 5 6HR 76.98 ng/L (0-10)
[2024-07-28 23:11] LABS: Troponin 5 6HR Delta -10.02 ng/L (0-12)
--- NOTE | 2024-07-28 23:58 | ECG_ITS ---
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 Measurements Intervals [place] Rate: 70 P: 24 WY: 214 QRS: -37 QRSD: 149 T: 82 QT: 435 QTc: 471 Interpretive Statements SINUS RHYTHM WITH FIRST DEGREE AV BLOCK LEFT AXIS DEVIATION [QRS AXIS < -30] RIGHT BUNDLE BRANCH BLOCK [120+ ms QRS DURATION, UPRIGHT V1, 40+ ms S IN I/aVL/V4/V5/V6] LEFT VENTRICULAR HYPERTROPHY AND ST-T CHANGE [VOLTAGE CRITERIA PLUS ST/T ABNORMALITY] Compared to ECG 07/28/2024 16:17:40 First degree AV block now present ST (T wave) deviation now present Myocardial infarct finding now present Sinus bradycardia no longer present Prolonged QT interval no longer present Electronically Signed On 07-30-2024 22:13:18 [employer]ING [employer] MUD ANALYSIS by Miguel Zimmer M.D. [email or web address]
[2024-07-29] VITALS (60 sets, daily range): BP systolic 78–154; BP diastolic 41–72; PULSE 46–70; RESP 14–30; TEMP 36–37.4; O2SAT 88–100; BMI 44.9
[2024-07-29 00:21] LABS: Glucose Point of Care 170 mg/dL (70-110)
[2024-07-29] MEDS: insulin lispro 100 unit/1 mL SUBCUT ×3 (00:28→17:58)
[2024-07-29 00:46] LABS: Anion Gap 18.1 (5-19); Blood Urea Nitrogen 75 mg/dL (8-23); Calcium 9.3 mg/dL (8.5-10.5); Carbon Dioxide 25 mmol/L (22-29); Chloride 101 mmol/L (98-107); Creatinine Clr Calc Pharmacy 18.0757; Glucose 182 mg/dL (65-115); Osmolality Calculated 317 mOsm/kg (285-295); Potassium 4.1 mmol/L (3.5-5.1); Sodium 140 mmol/L (136-145)
[2024-07-29 00:58] LABS: MRSA PCR OZH (swab) NOT DETECTED (Not Detecte)
[2024-07-29] MEDS: DOPamine drip 400 MG/250 ML PREMIX 29.34 MG IV ×2 (01:09→07:54)
[2024-07-29] MEDS: vancomycin 2,000 MG/400 ML PIGGYBACK 200 MG IV (01:24)
[2024-07-29] MEDS: norepinephrine 4 MG/250 ML BAG 15 MG IV (01:33)
[2024-07-29] MEDS: fentaNYL 1,000 MCG/100 ML BAG 10 MCG IV ×3 (01:59→20:49)
--- NOTE | 2024-07-29 02:01 | PC.NURSE ---
Addendum entered by Tatyana Ogden RN 07/29/24 02:19: wittnessed empty bag of fentanyl, bag previously hung in ER. Original Note: Fentanyl previously hung in ED by previous shift, bag completed empty at this time. New bag hung and verified by MILA Joe.
[2024-07-29 03:17] LABS: ABG PCO2 35.4 mmHg (35-45); ABG PH Result 7.48 (7.35-7.45); Arterial Blood Gas Hematocrit 28.2 % (37-47); Base Excess ABG 2.7 mmol/L (-2.0-2.0); Blood Gas Allen Test Pos; Blood Gas Sample Type Arterial; Carboxyhemoglobin 1.1 %THgb (0.4-20.1); HCO3 ABG 26.3 mmol/L (22-26); HGB O2 Sat 93.4 % (95-100); Ionized Calcium Level - ABG 1.2 mmol/L (1.1-1.4); Methemoglobin 1.3 % (0.4-1.5); Oxygen Saturation ABG 95.7; PO2 ABG 69.8 mmHg (80.0-100.0); Total Hemoglobin 9.2 g/dL (12-16)
[2024-07-29 03:18] LABS: Alveolar-Arterial Oxygen Gradi 22.5 mmHg (5-10); Blood Gas Operator Identificat ED; Blood Gas Sample Site Radial, right; Blood Gas Tidal Volume 0.48; Oxygen Device VENT; PO2 FiO2 Ratio Arterial Blood 174
[2024-07-29 04:04] LABS: Glucose Point of Care 117 mg/dL (70-110)
[2024-07-29] MEDS: buPROPion XL (24 HR) 150 mg Tablet PO (05:21)
[2024-07-29] MEDS: risperiDONE 1 mg Tablet PO (05:21)
[2024-07-29 05:36] LABS: Basophils # 0.1 10^3/uL (0.0-0.1); Basophils % 0.8 %; Eosinophils # 0.4 10^3/uL (0.0-0.8); Eosinophils % 2.9 %; Hematocrit 27.1 % (36-47); Lymphocytes # 1.3 10^3/uL (0.8-4.8); Mean Corpuscular HGB Conc 31.7 g/dL (30-55); Mean Corpuscular Hemoglobin 26.6 pg (27-33); Mean Corpuscular Volume 83.9 fl (85-98); Mean Platelet Volume 10.9 fL (7.4-10.4); Monocytes # 1.7 10^3/uL (0.2-0.9); Monocytes % 11.6 %; Neutrophils # 11.01 10^3/uL (1.8-7.7); Neutrophils % 74.9 %; Nucleated Red Blood Cells % 0 %; Platelet Count 301 10^3/cmm (157-399); Red Blood Count 3.23 10^6/uL (3.85-5.65); Red Cell Distribution Width 16.2 % (12.1-15.1); White Blood Count 14.69 10^3/uL (3.29-11.43)
--- NOTE | 2024-07-29 06:00 | XRR_ITS ---
PROCEDURE INFORMATION: Exam: XR Chest Exam date and time: 07/29/2024 7:08 AM Age: 64 years old Clinical indication: Device placement; Ett placement (vent status); Additional info: Intubation TECHNIQUE: Imaging protocol: Radiologic exam of the chest. Views: 1 view. COMPARISON: CR XR chest 1V portable [id number] 07/28/2024 6:19 PM FINDINGS: Tubes, catheters and devices: Endotracheal tube is present with its tip 2-3 cm above the obed. Nasogastric tube present with its tip below the level of the film. Central venous catheter seen on the right with its tip overlying the SVC. Lungs: There are low lung volumes. There are bilateral infiltrates slightly asymmetric being greater on the left than on the right. Findings are most suspicious for asymmetric edema. An inflammatory cause could have a similar appearance. Pleural spaces: Suspect small bilateral pleural effusions. No pneumothorax is identified. Heart/Mediastinum: The heart is enlarged. There is calcified plaque involving the aorta. Bones/joints: Unremarkable. XR/XR chest 1V portable [id number] IMPRESSION: 1. Cardiomegaly. 2. Low lung volumes. 3. Bilateral infiltrates and small pleural effusions likely related to pulmonary edema. An inflammatory cause could have a similar appearance. Findings are similar to that seen on prior exam.
[2024-07-29 06:09] LABS: Calcium 8.9 mg/dL (8.5-10.5); Ferritin 128 ng/mL (15-150)
[2024-07-29 06:12] LABS: Procalcitonin 0.34 ng/mL (0-0.5)
[2024-07-29 06:14] LABS: Alanine Aminotransferase 20 U/L (0-33); Albumin Level 3.2 g/dL (3.5-5.2); Alkaline Phosphatase 124 U/L (35-105); Anion Gap 19.3 (5-19); Aspartate Amino Transferase 16 U/L (0-32); Blood Urea Nitrogen 77 mg/dL (8-23); Calcium 9.1 mg/dL (8.5-10.5); Carbon Dioxide 24 mmol/L (22-29); Chloride 101 mmol/L (98-107); Creatinine Clr Calc Pharmacy 17.6454; Globulin 2.6 g/dL (1.3-4.6); Glomerular Filtration Rate 10.7 mL/min (90-130); Glucose 121 mg/dL (65-115); Magnesium 2.1 mg/dL (1.7-2.3); Osmolality Calculated 314 mOsm/kg (285-295); Phosphorus 4.1 mg/dL (2.5-4.5); Potassium 4.3 mmol/L (3.5-5.1); Sodium 140 mmol/L (136-145); Total Bilirubin 0.4 mg/dL (0.15-1.2); Total Protein 5.8 g/dL (6.6-8.7)
[2024-07-29 06:16] LABS: Parathyroid Hormone 232.1 pg/mL (15-65)
[2024-07-29 06:27] LABS: 25 Hydroxy Vitamin D 7 ng/mL (30-100)
[2024-07-29 07:19] LABS: Glucose Point of Care 124 mg/dL (70-110)
--- NOTE | 2024-07-29 07:20 | CT_ITS ---
WS: [id number] CTA CHEST WITH CT ABDOMEN AND PELVIS. HISTORY: Weakness, low heart rate. TECHNIQUE: CT angiogram is performed through the chest. Additional imaging is performed through the a bdomen and pelvis with IV contrast. Sagittal and coronal reformats have been submitted. MIP imaging also reviewed. All CT scans at [facility] use at least one of these dose optimization techniqu es: automated exposure control; mA and/or kV adjustment per patient size (includes targeted exams whe re dose is matched to clinical indication); or iterative reconstruction. Contrast: Omnipaque 350; 95 cc IV. DLP: 1837.08 mGy.cm COMPARISON: 07/25/2024, 07/22/2020 Chest CTA: Lung volumes are significantly decreased. Patient is intubated. Endotracheal tube extends into the proximal RIGHT mainstem bronchus. Adequate opacification of the central pulmonary arteries. No pulmonary emboli is identified centrally at the lobar portions of the segmental branches. The opac ification distally is obscured by lung disease. Bilateral pulmonary opacifications which are most likely areas of atelectasis. Dense areas of consoli dation bilaterally at the lung bases. Additional perihilar irregular opacifications. No pneumothorax. Mild cardiac enlargement. No adenopathy. Nasogastric tube terminates in the stomach. Abdomen CT: Normal liver and spleen. Prior cholecystectomy. No adrenal mass. Normal pancreas. No comm on bile duct dilatation. Moderate atherosclerotic plaque aorta. No renal obstruction. No GI tract obs truction. No colitis. No adenopathy or free air. There is a small amount of free fluid in the pelvis. Distal colonic diverticulosis without acute diverticulitis. Pelvic CT: Urinary bladder is not distended. Kent catheter present in the bladder. Small amount of f ree fluid in the pelvis. Prior hysterectomy. LEFT femoral venous line. Mild soft tissue anasarca. CT/CT angio chest w abd pel w con IMPRESSION: 1. Endotracheal tube tip ends in the proximal RIGHT mainstem bronchus. Conside r retracting 1 to 2 cm. 2. Good position of the nasogastric tube. 3. Dense areas of consolidation consistent with atelectasis at the lung bases and in a perihilar distribution. 4. No pneumothorax. 5. Small amount of free fluid in the pelvis. Fluid is new since 07/25/2024 6. No GI tract obstruction or colitis. 7. Kent catheter in good position. 8. No pulmonary embolism. 9. Prior cholecystectomy.
--- NOTE | 2024-07-29 07:20 | USCV_ITS ---
Hilda Wallace Age: 64 Gender: F : 1960 Exam Date: 07/29/2024 08:29 Ordering Phys: Patel Jones MD Technologist: Exam [place] [facility] [place]: shock BP: 111 / 47 HR: Rhythm: Sinus Technical Quality: Adequate MEASUREMENTS (Male / Female) Normal Values 2D ECHO LVOT Diameter 2.1 cm LV Ejection Fraction MOD 4C 49.7 % LV Ejection Fraction MOD 2C 66.6 % LV Ejection Fraction 2C AL 67.5 % LA Diameter 3.3 cm Aorta at Sinotubular Diameter 2.3 cm M-MODE LA Ao Ratio MM 1.5 AV Cusp Separation MM 2.0 cm FINDINGS Left Ventricle Right Ventricle Right Atrium Left Atrium Mitral Valve Aortic Valve Tricuspid Valve Pulmonic Valve Pericardium Aorta IVC CONCLUSIONS Limited quality echocardiogram because of poor ultrasonic windows. Limited echo performed to assess LV systolic function. LV systolic function is normal with EF of 55 to 60%. Miguel Zimmer MD (Electronically Signed) Final Date: 30 July 2024 07:35 S
[2024-07-29] MEDS: pantoprazole 40 mg SDV IVP ×2 (07:27→20:26)
[2024-07-29] MEDS: piperacillin-tazobactam 3.375 GM in sodium chloride 0.9% (plus) 50 ML IV ×2 (07:33→20:25)
[2024-07-29] MEDS: heparin 5,000 unit/mL INJ 1 mL 5000 UNIT SUBCUT ×2 (07:34→20:26)
[2024-07-29] MEDS: midazolam hcl 100 MG/100 ML BAG IV (07:55)
[2024-07-29 08:32] LABS: Glucose Point of Care 141 mg/dL (70-110)
--- NOTE | 2024-07-29 08:44 | PC.NURSE ---
this nurse completing chart audit and verifying medications administered yesterday 07/28/2024. verified documentation with ED provider that ordered medication.
[2024-07-29] MEDS: duloxetine 60 mg Capsule PO (10:32)
[2024-07-29] MEDS: atorvastatin 40 mg Tablet PO (10:32)
[2024-07-29] MEDS: clopidogrel 75 mg Tablet PO (10:32)
[2024-07-29] MEDS: lamoTRIgine 100 mg Tablet PO ×3 (10:32→20:26)
--- NOTE | 2024-07-29 11:20 | PM.PN ---
Subjective Subjective: The patient was seen and examined this morning. Patient remains intubated FiO2 40% PEEP of 8. Patient remains on Levophed and dopamine. Patient is sedated unable to give us a history response to pain. Medications: Reviewed: Yes Medication Review Details: Current Medications Acetaminophen (Acetaminophen 325 Mg Tablet) 650 mg PO Q6H PRN PRN Reason: Mild/Mod Pain Or Temp >/= 101 Atorvastatin Calcium (Atorvastatin 40 Mg Tablet) 40 mg PO DAILY [facility] Last Admin: 07/29/24 10:32 Dose: 40 mg Bisacodyl (Bisacodyl 5 Mg Tablet) 10 mg PO DAILY PRN; Protocol PRN Reason: Constipation (see protocol) Bupropion HCl (Bupropion Xl (24 Hr) 150 Mg Tablet) 150 mg PO QAM [facility] Last Admin: 07/29/24 05:21 Dose: 150 mg Clopidogrel Bisulfate (Clopidogrel 75 Mg Tablet) 75 mg PO DAILY [facility] Last Admin: 07/29/24 10:32 Dose: 75 mg Duloxetine HCl (Duloxetine 60 Mg Capsule) 60 mg PO DAILY [facility] Last Admin: 07/29/24 10:32 Dose: 60 mg Glucagon (Glucagon 1 Mg/Ml Kit 1 Ml) 1 mg IM ONCE PRN; Protocol PRN Reason: Adult Acute Hypoglycemia Nursing Prot. Heparin Sodium (Porcine) (Heparin 5,000 Unit/Ml Inj 1 Ml) 5,000 unit SUBCUT Q12H [facility] Last Admin: 07/29/24 07:34 Dose: 5,000 unit Fentanyl (Sublimaze) 1,000 mcg in 100 mls @ 0 mls/hr IV .Q0M [facility]; Protocol Last Admin: 07/29/24 01:59 Dose: 100 mcg/hr, 10 mls/hr Dextrose (D5w) 500 mls @ 0 mls/hr IV ONCE PRN; Protocol PRN Reason: Adult Acute Hypoglycemia Prot Dextrose (D10w) 125 mls @ 750 mls/hr IV PRN PRN; Protocol PRN Reason: Adult Acute Hypoglycemia Nursing Protocol Dextrose (D10w) 250 mls @ 1,000 mls/hr IV PRN PRN; Protocol PRN Reason: Adult Acute Hypoglycemia Nursing Protocol Albumin Human (Albumin) 12.5 gm in 50 mls @ 60 mls/hr IV PRN PRN PRN Reason: Hypotension and/or symptomatic Piperacillin Sod/Tazobactam (Sod 3.375 gm/ Sodium Chloride) 50 mls @ 12.5 mls/hr IV Q12H JAMAR Last Admin: 07/29/24 07:33 Dose: 12.5 mls/hr Dopamine HCl/Dextrose (Intropin Drip) 400 mg in 250 mls @ 19.561 mls/hr IV CONT JAMAR; Protocol Last Admin: 07/29/24 07:54 Dose: 7.5 mcg/kg/min, 29.34 mls/hr Midazolam HCl (Versed) 100 mg in 100 mls @ 0 mls/hr IV .Q0M JAMAR; Protocol Last Admin: 07/29/24 07:55 Dose: 5 mg/hr, 5 mls/hr Norepinephrine Bitartrate (Levophed) 4 mg in 250 mls @ 0 mls/hr IV .Q0M JAMAR; Protocol Last Titration: 07/29/24 08:54 Dose: 4 mcg/min, 15 mls/hr Insulin Human Lispro (Insulin Lispro 100 Unit/1 Ml) 0 unit SUBCUT Q6H JAMAR; Protocol Last Admin: 07/29/24 05:29 Dose: Not Given Lactulose (Lactulose Oral Liq 20 Gm/30 Ml Udc) 10 gm PO DAILY PRN; Protocol PRN Reason: Constipation (see protocol) Lamotrigine (Lamotrigine 100 Mg Tablet) 100 mg PO TID [facility] Last Admin: 07/29/24 10:32 Dose: 100 mg Magnesium Hydroxide (Magnesium Hydroxide 30 Ml Udc) 30 ml PO DAILY PRN; Protocol PRN Reason: Constipation (see protocol) Morphine Sulfate (Morphine 4 Mg/Ml Sdv 1 Ml) 2 mg IVP Q4H PRN PRN Reason: SEVERE PAIN Olanzapine (Olanzapine 5 Mg Tablet) 5 mg PO BEDTIME [facility] Last Admin: 07/28/24 20:58 Dose: 5 mg Ondansetron HCl (Ondansetron 2 Mg/Ml Sdv 2 Ml) 4 mg IVP Q8H PRN PRN Reason: vomiting, or N/V if npo Pantoprazole Sodium (Pantoprazole 40 Mg Sdv) 40 mg IVP Q12H JAMAR Last Admin: 07/29/24 07:27 Dose: 40 mg Risperidone (Risperidone 1 Mg Tablet) 1 mg PO QAM JAMAR Last Admin: 07/29/24 05:21 Dose: 1 mg Vancomycin HCl (Vancomycin 1,000 Mg Sdv (Pharmacy Mix)) 0 mg XX PRN PRN PRN Reason: Pharmacy to Dose Vitals/I&O/Wt Last Vital Signs Temp 98.1 F 07/29/24 04:00 Pulse 62 07/29/24 06:30 Resp 16 07/29/24 10:14 BP 119/52 07/29/24 06:30 Pulse Ox 96 07/29/24 10:14 O2 Del Method Mechanical Ventilation 07/29/24 06:30 FiO2 40 07/29/24 10:14 07/28/24 07/29/24 07/29/24 22:59 06:59 14:59 Intake Total 1263.75 / 1263.75 601.750 / 1865.500 328.920 / 328.920 Output Total 450 / 450 Balance 1263.75 / 1263.75 151.750 / 1415.500 328.920 / 328.920 Weight last 48 hrs Weight 122.5 kg Weight 121 kg Weight 104.326 kg Physical Exam Narrative: Patient is On 2 pressors intubated and sedated. Levophed at 2 dobutamine at 10. Obese ventilated FiO2 of 40%. HEENT normocephalic atraumatic. lungs have crackles. Heart irregular with systolic murmur. Abdomen is soft positive bowel sounds. Extremities bilateral edema. Neuro sedated. Urinary Catheter Management: Kent: Cath Placed During This Visit: yes Reason for Continuing Indwelling Catheter: Accurate Measurement of Urinary Output in Critically Ill Patients Urinary Catheter Date of Insertion: 07/28/24 Data 07/29/24 04:32 07/29/24 04:32 Micro: Microbiology 07/28/24 18:05 Blood Culture - Preliminary Blood SPECIMEN COLLECTED 07/28/24 18:00 Blood Culture - Preliminary Blood SPECIMEN COLLECTED A&P Assessment and plan (1) Acute kidney injury superimposed on CKD: Patient is a 64-year-old lady with obesity multiple medical problems including heart failure reduced EF psychiatric medical illness hypertension and diabetes. The patient had a creatinine of 1.3 to 1.5 mg/dL in the winter 2023. In the summer 2023 creatinine peaked at 1.9 mg/dL. Patient was admitted to the hospital on July 15, 2024 with a creatinine of 2.6 mg/dL and creatinine peaked at 3.8 mg/dL on July 23, 2024. Patient had improving renal failure with creatinine down to 3.3 mg/dL 2 days ago on July 26, 2024. Patient presents today with altered mental status hypotension bradycardia hypothermia and found to have hyperkalemia with a potassium of 7.8 and creatinine of 5.6 mg/dL. Patient has been intubated and treated with calcium and bicarbonate. Patient remains hyperkalemia with arrhythmias and renal was called for dialysis. 1. Renal insufficiency patient had CKD stage III as of last year and now is going into worsening renal failure. Patient has proteinuria and some hematuria will send all serologies. Patient has no hydronephrosis on renal ultrasound. Patient should be off of DAVID inhibitor's ARB and NSAIDs. Please ensure that is correct. -Patient initiated dialysis yesterday for hyperkalemia with rhythm abnormalities. Patient is going for CT scan with contrast today we will repeat dialysis after CT scan. Tomorrow we will assess for further dialysis needs. - salicylate level low at 1.8 -serologies are pending 2. replete vit d 3. VDRF 4. Diabetic control as per hospitalist. 5. per hospitalist for CTA 6. abs per hospitalist 7.Recent echocardiogram on July 16, 2024. EF of 50 to 55% moderate to severe mitral annular calcification with moderate mitral stenosis mild aortic stenosis and grade 1 diastolic dysfunction CAse discussed in detail with Dr. Snow. The patient was seen and examined w/ the AIDE of a RN- using A/V equipement Plan CTA, repeat HD Attestations Medical Necessity Statement*: DELORIS, VDRF, shock Time Spent in Patient Care: Greater than 35 minutes (>than 50% of time spent in counselling and/or direct pt care on unit). Coding Level of Care Code Acute Code for [facility] Fwd Diagnoses Acute kidney injury superimposed on CKD N17.9; N18.9
[2024-07-29 12:07] LABS: Cortisol Random 9.82 ug/dL (2.47-19.5); Thyroid Stimulating Hormone 1.75 uIU/mL (0.27-4.20)
[2024-07-29] MEDS: iohexol 350 mg/mL 500 mL Btl (per mL) IV (13:15)
[2024-07-29 13:49] LABS: Glucose Point of Care 182 mg/dL (70-110)
--- NOTE | 2024-07-29 14:09 | P.PN_ITS ---
Subjective 2 Subjective: Overnight patient underwent emergent dialysis. After which her hemodynamics became more stable. Today morning on examination she is on Versed of 5, fentanyl of 100, dopamine of 5, Levophed of 2. Heart rate usually running in 60s. Mean artery pressure maintained over 65. Saturating well on FiO2 of 40%, tidal volume of 480 with PEEP of 8. Vitals/I&O/Wt Last Vital Signs Temp 98.6 F 07/29/24 09:00 Pulse 65 07/29/24 11:30 Resp 15 07/29/24 11:33 BP 97/55 07/29/24 11:30 Pulse Ox 94 07/29/24 11:33 O2 Del Method Mechanical Ventilation 07/29/24 09:00 FiO2 40 07/29/24 11:33 07/28/24 07/29/24 07/29/24 22:59 06:59 14:59 Intake Total 1263.75 / 1263.75 1101.750 / 2365.500 328.920 / 328.920 Output Total 981 / 981 100 / 100 Balance 1263.75 / 1263.75 120.750 / 1384.500 228.920 / 228.920 Weight last 48 hrs Weight 122.5 kg Weight 123.5 kg Weight 121 kg Weight 104.326 kg Physical Exam 2 Narrative: General: Intubated, sedated HEENT: PERRLA, pupils bilaterally equal and reactive Pulmonary: Bilateral bronchial breath sounds all over lung prater, occasional rhonchi, fine crackles present bilaterally in lower zone CVS: S1-S2, diastolic murmur at apex, bradycardia, occasional missed beat, no gallops, no rubs Abdomen: Soft, nontender, no organomegaly, bowel sounds present Neuro: Intubated, sedated Urinary Catheter Management: Kent: Cath Placed During This Visit: yes Reason for Continuing Indwelling Catheter: Accurate Measurement of Urinary Output in Critically Ill Patients Urinary Catheter Date of Insertion: 07/28/24 Data 07/29/24 04:32 07/29/24 04:32 Micro: Microbiology 07/28/24 16:55 Gram Stain - Final Sputum - Endotracheal Tube Aspirate Sputum Culture - Preliminary 07/28/24 18:05 Blood Culture - Preliminary Blood SPECIMEN COLLECTED 07/28/24 18:00 Blood Culture - Preliminary Blood SPECIMEN COLLECTED A&P Assessment and plan (1) Shock: (2) Altered mental status: (3) Bradycardia: (4) Respiratory failure: (5) Hyperkalemia: (6) Acute kidney injury superimposed on CKD: (7) CHF (congestive heart failure): (8) Essential hypertension: (9) Anemia: (10) Insulin dependent type 2 diabetes mellitus: Plan 64-year-old female with past medical history of CKD who was recently discharged to assisted living after getting treated for pneumonia, DELORIS and adjusting of antipsychotics presents back to the ER today with altered mental status found to have bradycardia arrhythmia and shock in setting of hyperkalemia, DELORIS on CKD requiring mechanical ventilation, vasopressor. Hyperkalemia: Currently resolved after emergent dialysis. Continue to monitor every 12 hours. Dialysis as per nephrology team. DELORIS on CKD:Baseline creatinine in past 1 year seems to be 1.6-2.4. On previous admission peaked up to 3.8. Medical decompression done for nephrotoxic drugs. Will confirm patient was not getting discontinued potassium and is at assisted living. Kent catheter. Strict input charting. Appreciate nephrology recommendations. Continue with dialysis for now. Will monitor the urine output and recovery of renal functions and decide about further dialysis as an outpatient. Shock: Most likely cardiogenic in nature versus septic. Keep mean artery pressure 65. Check cortisol levels. Try to wean dopamine and Levophed keeping mean arterial pressure over 65. Follow-up blood culture, urine culture, sputum culture. MRSA swab negative. Discontinue vancomycin. Continue with Zosyn. Check CT chest abdomen pelvis with contrast. Will request for extra dialysis after contrast study. Recent echocardiogram within last 1 week showed an EF of 50 to 55%, grade 1 diastolic dysfunction, moderate MS, mild MR, mild aortic stenosis with aortic valve area of 2.1. Follow-up limited echocardiogram. Respiratory failure: Currently on mechanical ventilator. Sedate with fentanyl and Versed. Keep mean artery pressure over 65, saturation over 92. Repeat ABG and decrease FiO2 accordingly. Repeat chest x-ray and ABG every morning while intubated. Follow-up sputum culture. Type 2 diabetes mellitus: Insulin sliding scale every 4 hours. Monitor for metabolic acidosis. Most recent A1c of 7.3 in March. Chronic anemia: Monitor hemoglobin. Does have history of chronic anemia. Baseline hemoglobin seems to be running from 8.6-9.8. Appreciate recent iron panel, vitamin B12 and folate levels. Follow-up medication list from assisted living. C/w other home medications CODE STATUS: It seems patient has court appointed guardian. Full code. Will discuss further with court appointed guardian. Protonix for PUD prophylaxis Heparin for DVT prophylaxis. Attestations 2 Medical Necessity Statement*: Requires further hospitalization for management of shock, respiratory failure in a patient admitted with symptomatic hyperkalemia, DELORIS on CKD requiring emergent dialysis in setting of bradycardia arrhythmias Critical Care Time: The high probability of a clinically significant, sudden or life threatening deterioration of the patient's [renal, cardiac, pulm] system(s) required my full and direct attention, intervention and personal management. The critical care time is as shown. This time is in addition to time spent performing any reported procedures but includes the following: [x] Data and vital sign review and interpretation [x] Patient assessment, examination and intervention [x] Documentation [x] Medication orders and management Critical Care Time (min): 70 Coding Level of Care Code Critical Care >/= 30 minutes Critical care time (in minutes): 70 The high probability of a clinically significant, sudden or life threatening deterioration, as referenced in this documentation, required my full and direct attention, intervention and personal management. The critical care time shown is in addition to time spent performing any reported separately billable procedures and includes the following: [x] Data and vital sign review and interpretation [x ] Patient assessment, examination and intervention [x] Medication orders and management [x] Patient/Family updates as able [x] Care Coordination and Documentation. Other Coding Information This patient has a high probability of clinically significant, sudden or life threatening deterioration of the patient's (neurological/pulmonary/cardiac/renal/ID/endocrine) systems required my full, direct attention, the highest level of physician preparedness for urgent intervention and personal management. I managed/supervised life or organ supporting interventions that required frequent physician assessment. I devoted my full attention in the ICU to the direct care of this patient for the period of time indicated above. Time I spent with family or surrogate(s) is included only if the patient was incapable of providing necessary information or participating in decision making. This time includes the following services provided: Telemetry review Mechanical Ventilation Hemodynamic interpretation, assessment and management Review and interpretation of CXR Review and interpretation of lab values Review and interpretation of microbiologic data and culture results Review of medications and administration Review and interpretation of Nutrition requirements and management Discussion of management with other consultants and services Clinical update to family members Diagnoses Shock R57.9 Altered mental status R41.82 Bradycardia R00.1 Respiratory failure J96.90 Hyperkalemia E87.5 Acute kidney injury superimposed on CKD N17.9; N18.9 CHF (congestive heart failure) I50.9 Essential hypertension I10 Anemia D64.9 Insulin dependent type 2 diabetes mellitus E11.9; Z79.4
[2024-07-29] MEDS: heparin, porcine 1,000 unit/mL INJ 10 mL 2000 UNIT HE (14:19)
[2024-07-29] MEDS: DOPamine drip 400 MG/250 ML PREMIX 19.56 MG IV (16:10)
[2024-07-29] MEDS: norepinephrine 4 MG/250 ML BAG 22.5 MG IV (16:13)
[2024-07-29] MEDS: cosyntropin 0.25 mg SDV IVP (16:30)
[2024-07-29] MEDS: DOPamine drip 400 MG/250 ML PREMIX 9.78 MG IV (16:51)
[2024-07-29 17:05] LABS: Glucose Point of Care 141 mg/dL (70-110)
[2024-07-29 17:10] LABS: Blood Urea Nitrogen 38 mg/dL (8-23); Calcium 8.7 mg/dL (8.5-10.5); Carbon Dioxide 25 mmol/L (22-29); Chloride 100 mmol/L (98-107); Glomerular Filtration Rate 21.3 mL/min (90-130); Glucose 144 mg/dL (65-115); Osmolality Calculated 298 mOsm/kg (285-295); Sodium 138 mmol/L (136-145)
[2024-07-29 17:12] LABS: Adenovirus Not Detected (NOT DETECT); Chlamydia Pneumoniae Not Detected (NOT DETECT); Coronavirus 229E,HKU1,NL63,OC4 Not Detected (NOT DETECT); Human Metapneumovirus Not Detected (NOT DETECT); Human Rhinovirus/Enterovirus Detected (NOT DETECT); Influenza A Not Detected (NOT DETECT); Influenza A H1 Not Detected (NOT DETECT); Influenza A H1-2009 Not Detected (NOT DETECT); Influenza A H3 Not Detected (NOT DETECT); Influenza B Not Detected (NOT DETECT); Mycoplasma Pneumoniae Not Detected (NOT DETECT); Parainfluenza Virus Type 1 Not Detected (NOT DETECT); Parainfluenza Virus Type 2 Not Detected (NOT DETECT); Parainfluenza Virus Type 3 Not Detected (NOT DETECT); Parainfluenza Virus Type 4 Not Detected (NOT DETECT); Respiratory Syncytial Virus A Not Detected (NOT DETECT); Respiratory Syncytial Virus B Not Detected (NOT DETECT); SARS-COV-2 Not Detected (NOT DETECT)
[2024-07-29 17:20] LABS: Cosyntropin Baseline 11.86 mcg/dL
[2024-07-29 18:11] LABS: Cosyntropin 30 Minute 16.31 mcg/dL
--- NOTE | 2024-07-29 18:22 | PC.NURSE ---
Shift SUmmary: went to for a CT angiogram, dialysis afterwards. Weaned from 7.5 of dopamine down to 2.5. from 6 of levophed down to 2. from 5 of versed down to 2. Patient may have followed simple commands, but nurse has been unable to get the patient to repeat it. 200mL of urine output. Cosyntropin labs pending at time of this note.
[2024-07-29 18:27] LABS: Cosyntropin 1 Hour 18.88 mcg/dL
[2024-07-29] MEDS: OLANZapine 5 mg TABLET PO (20:26)
[2024-07-29 21:36] LABS: Glucose Point of Care 169 mg/dL (70-110)
[2024-07-30] VITALS (55 sets, daily range): BP systolic 86–143; BP diastolic 39–75; PULSE 51–70; RESP 14–15; TEMP 36.3–37.7; O2SAT 91–99; BMI 46.0
[2024-07-30 00:35] LABS: Glucose Point of Care 175 mg/dL (70-110)
[2024-07-30] MEDS: chlorhexidine gluconate 4% Btl 118 mL 1 APPLIC TOPICAL (00:42)
[2024-07-30] MEDS: insulin lispro 100 unit/1 mL SUBCUT ×4 (00:42→17:42)
[2024-07-30 02:54] LABS: ABG PCO2 43.3 mmHg (35-45); ABG PH Result 7.41 (7.35-7.45); Arterial Blood Gas Hematocrit 26.3 % (37-47); Base Excess ABG 2.2 mmol/L (-2.0-2.0); Blood Gas Allen Test Pos; Blood Gas Sample Type Arterial; Carboxyhemoglobin 1.2 %THgb (0.4-20.1); HCO3 ABG 27.2 mmol/L (22-26); Ionized Calcium Level - ABG 1.2 mmol/L (1.1-1.4); Methemoglobin < 0.0 % (0.4-1.5); PO2 ABG 72.3 mmHg (80.0-100.0); Potassium Level - ABG 4.5 mmol/L (3.5-5.0); Total Hemoglobin 8.6 g/dL (12-16)
[2024-07-30 02:55] LABS: Alveolar-Arterial Oxygen Gradi 21.2 mmHg (5-10); Blood Gas Operator Identificat ED; Blood Gas Sample Site Radial, left; Blood Gas Tidal Volume 0.48; Oxygen Device VENT; PO2 FiO2 Ratio Arterial Blood 180
[2024-07-30 03:24] LABS: Basophils # 0.1 10^3/uL (0.0-0.1); Basophils % 1.2 %; Eosinophils # 0.5 10^3/uL (0.0-0.8); Eosinophils % 4.4 %; Hematocrit 27.5 % (36-47); Lymphocytes # 0.8 10^3/uL (0.8-4.8); Lymphocytes % 7.4 %; Mean Corpuscular HGB Conc 30.2 g/dL (30-55); Mean Corpuscular Hemoglobin 26.4 pg (27-33); Mean Corpuscular Volume 87.6 fl (85-98); Mean Platelet Volume 10.9 fL (7.4-10.4); Monocytes # 0.7 10^3/uL (0.2-0.9); Neutrophils # 8.95 10^3/uL (1.8-7.7); Neutrophils % 80.6 %; Nucleated Red Blood Cells % 0 %; Platelet Count 238 10^3/cmm (157-399); Red Blood Count 3.14 10^6/uL (3.85-5.65); Red Cell Distribution Width 16.6 % (12.1-15.1); White Blood Count 11.09 10^3/uL (3.29-11.43)
[2024-07-30 03:51] LABS: Alanine Aminotransferase 18 U/L (0-33); Albumin Level 3.1 g/dL (3.5-5.2); Alkaline Phosphatase 125 U/L (35-105); Blood Urea Nitrogen 47 mg/dL (8-23); Calcium 8.5 mg/dL (8.5-10.5); Carbon Dioxide 25 mmol/L (22-29); Chloride 100 mmol/L (98-107); Globulin 1.9 g/dL (1.3-4.6); Glomerular Filtration Rate 13.6 mL/min (90-130); Glucose 168 mg/dL (65-115); Magnesium 2.1 mg/dL (1.7-2.3); Osmolality Calculated 300 mOsm/kg (285-295); Phosphorus 5.4 mg/dL (2.5-4.5); Sodium 137 mmol/L (136-145); Total Bilirubin 0.4 mg/dL (0.15-1.2)
[2024-07-30 03:59] LABS: Cortisol Random 16.72 ug/dL (2.47-19.5)
[2024-07-30 04:20] LABS: Glucose Point of Care 181 mg/dL (70-110)
[2024-07-30 04:46] LABS: Anion Gap 17.6 (5-19); Aspartate Amino Transferase 20 U/L (0-32); Potassium 5.6 mmol/L (3.5-5.1)
--- NOTE | 2024-07-30 06:00 | XR_ITS ---
WS: [id number] Exam: XR chest 1V portable [id number] Date/Time of Exam: 07/30/2024 7:08 AM Reason For Exam: intubation Comparison with previous exam 07/29/2024 at 7:10 a.m. Bilateral infiltrates show significant improvement. The heart is enlarged but unchanged in size. Low lung volumes secondary to limited inspiration. No pleural effusions. An ET tube is in place ending ab out 4 cm above the obed in satisfactory position. A RIGHT IJ catheter ends at the expected region o f the cavoatrial junction. An enteric tube extends into the stomach with the tip is out of the field- of-view. Bony structures are intact. The mediastinum is normal in contour for technique. XR/XR chest 1V portable [id number] IMPRESSION: 1. Bilateral pulmonary infiltrates almost completely resolved. 2. Cardiac enlargement unchanged. 3. ET tube, RIGHT central line and enteric tube all in satisfactory location.
[2024-07-30] MEDS: fentaNYL 1,000 MCG/100 ML BAG 10 MCG IV (06:12)
[2024-07-30] MEDS: buPROPion XL (24 HR) 150 mg Tablet PO (06:32)
[2024-07-30] MEDS: risperiDONE 1 mg Tablet PO (06:32)
[2024-07-30 06:36] LABS: Glucose Point of Care 185 mg/dL (70-110)
[2024-07-30] MEDS: pantoprazole 40 mg SDV IVP ×2 (07:24→19:48)
[2024-07-30] MEDS: heparin 5,000 unit/mL INJ 1 mL 5000 UNIT SUBCUT ×2 (07:30→19:48)
[2024-07-30] MEDS: piperacillin-tazobactam 3.375 GM in sodium chloride 0.9% (plus) 50 ML IV ×2 (07:30→19:47)
--- NOTE | 2024-07-30 08:50 | P.PN_ITS ---
Subjective 2 Subjective: on vent , 40 % Fio2 s/p HD yesterday Medications: Reviewed: Yes Vitals/I&O/Wt Last Vital Signs Temp 97.6 F 07/30/24 04:00 Pulse 51 L 07/30/24 06:00 Resp 14 07/30/24 08:06 BP 93/41 07/30/24 06:00 Pulse Ox 98 07/30/24 08:06 O2 Del Method Mechanical Ventilation 07/30/24 06:00 FiO2 40 07/30/24 08:06 07/29/24 07/30/24 07/30/24 22:59 06:59 14:59 Intake Total 914.600 / 1462.087 281.295 / 1743.382 Output Total 200 / 300 500 / 800 Balance 714.600 / 1162.087 -218.705 / 943.382 Weight last 48 hrs Weight 125.5 kg Weight 126 kg Weight 122.5 kg Weight 123.5 kg Weight 121 kg Weight 104.326 kg Physical Exam 2 Narrative: Patient is On dopamine , intubated and sedated. Obese ventilated FiO2 of 40%. HEENT normocephalic atraumatic. lungs have crackles. Heart irregular with systolic murmur. Abdomen is soft positive bowel sounds. Extremities bilateral edema. Neuro sedated. Urinary Catheter Management: Kent: Cath Placed During This Visit: yes Reason for Continuing Indwelling Catheter: Accurate Measurement of Urinary Output in Critically Ill Patients Urinary Catheter Date of Insertion: 07/28/24 Data 07/30/24 02:46 07/30/24 02:46 Micro: Microbiology 07/28/24 18:05 Blood Culture - Preliminary Blood NEGATIVE TO DATE 07/28/24 18:00 Blood Culture - Preliminary Blood NEGATIVE TO DATE 07/28/24 16:55 Gram Stain - Final Sputum - Endotracheal Tube Aspirate Sputum Culture - Preliminary A&P Assessment and plan (1) Acute kidney injury superimposed on CKD: Patient is a 64-year-old lady with obesity multiple medical problems including heart failure reduced EF psychiatric medical illness hypertension and diabetes. The patient had a creatinine of 1.3 to 1.5 mg/dL in the winter 2023. In the summer 2023 creatinine peaked at 1.9 mg/dL. Patient was admitted to the hospital on July 15, 2024 with a creatinine of 2.6 mg/dL and creatinine peaked at 3.8 mg/dL on July 23, 2024. Patient had improving renal failure with creatinine down to 3.3 mg/dL 2 days ago on July 26, 2024. Patient presents today with altered mental status hypotension bradycardia hypothermia and found to have hyperkalemia with a potassium of 7.8 and creatinine of 5.6 mg/dL. Patient has been intubated and treated with calcium and bicarbonate. Patient remains hyperkalemia with arrhythmias and renal was called for dialysis. 1. Renal insufficiency patient had CKD stage III as of last year and now is going into worsening renal failure. Patient has proteinuria and some hematuria will send all serologies. Patient has no hydronephrosis on renal ultrasound. Patient should be off of DAVID inhibitor's ARB and NSAIDs. Please ensure that is correct. -Patient initiated dialysis on 07/28 --> for hyperkalemia with rhythm abnormalities. s/p hD again yesterday after CTA - K elevated today , will plan for another HD today -serologies are pending 2. replete vit d 3. VDRF 4. Diabetic control as per hospitalist. 5. per hospitalist for CTA 6. abs per hospitalist 7.Recent echocardiogram on July 16, 2024. EF of 50 to 55% moderate to severe mitral annular calcification with moderate mitral stenosis mild aortic stenosis and grade 1 diastolic dysfunction The patient was seen and examined w/ the AIDE of a RN- using A/V equipement Attestations 2 Medical Necessity Statement*: [facility] Coding Level of Care Code Acute Code for [facility] Fwd Diagnoses Acute kidney injury superimposed on CKD N17.9; N18.9
[2024-07-30] MEDS: DOPamine drip 400 MG/250 ML PREMIX 19.56 MG IV ×2 (09:00→19:46)
[2024-07-30 09:41] LABS: Potassium 4.7 mmol/L (3.5-5.1)
[2024-07-30 09:44] LABS: Anti-streptolysin O <20 IU/mL (<200)
[2024-07-30 09:54] LABS: PROTEIN, TOTAL 5.9 g/dL (6.1-8.1)
[2024-07-30] MEDS: lamoTRIgine 100 mg Tablet PO ×3 (10:23→20:52)
[2024-07-30] MEDS: clopidogrel 75 mg Tablet PO (10:23)
[2024-07-30] MEDS: duloxetine 60 mg Capsule PO (10:23)
[2024-07-30] MEDS: atorvastatin 40 mg Tablet PO (10:23)
[2024-07-30 11:33] LABS: Glucose Point of Care 184 mg/dL (70-110)
[2024-07-30] MEDS: methylPREDNISolone sod succ 40 mg/mL INJ IVP ×2 (12:22→17:38)
--- NOTE | 2024-07-30 15:02 | PC.SOCIAL ---
IMM Update pg 2 of IMM not updated as patient is intubated and not anticipated to DC in 48-72 hours. Copy left @ bedside and copy dated, initialed and placed in chart.
[2024-07-30 15:14] LABS: Anti-Double Strand DNA AB <1 IU/mL
--- NOTE | 2024-07-30 15:46 | PC.NURSE ---
Patient lives at [facility]. According to Zunilda, at baseline patient frequently has word salad due to a past stroke. When able to communicate, she is oriented to self only at best.
--- NOTE | 2024-07-30 16:22 | P.PN_ITS ---
Subjective 2 Subjective: No acute vents overnight. Patient has remained hemodynamically stable and afebrile. Today morning on examination laying comfortably in bed. Waking up to verbal stimulus. Able to follow some simple directions. Currently on FiO2 of 40%, tidal volume 480, PEEP of 8. Sedated with fentanyl 25, Versed off for now. Levophed currently on 2, dobutamine of 5. Appreciate urine output. Underwent second session of dialysis yesterday. Vitals/I&O/Wt Last Vital Signs Temp 100 F H 07/30/24 16:00 Pulse 64 07/30/24 16:00 Resp 14 07/30/24 16:00 BP 129/55 07/30/24 16:00 Pulse Ox 95 07/30/24 16:00 O2 Del Method Mechanical Ventilation 07/30/24 16:00 FiO2 40 07/30/24 16:00 07/30/24 07/30/24 07/30/24 06:59 14:59 22:59 Intake Total 281.295 / 2243.382 91.943 / 91.943 50 / 141.943 Output Total 500 / 2302 Balance -218.705 / -58.618 66.943 / 66.943 50 / 116.943 Weight last 48 hrs Weight 133.2 kg Weight 125.5 kg Weight 126.5 kg Weight 126 kg Weight 122.5 kg Weight 123.5 kg Weight 121 kg Physical Exam 2 Narrative: General: Intubated, sedated, able to follow simple directions on sedation vacation HEENT: PERRLA, pupils bilaterally equal and reactive Pulmonary: Bilateral bronchial breath sounds all over lung prater, occasional rhonchi, fine crackles present bilaterally in lower zone CVS: S1-S2, diastolic murmur at apex, bradycardia, occasional missed beat, no gallops, no rubs Abdomen: Soft, nontender, no organomegaly, bowel sounds present Neuro: Intubated, sedated Urinary Catheter Management: Kent: Cath Placed During This Visit: yes Reason for Continuing Indwelling Catheter: Accurate Measurement of Urinary Output in Critically Ill Patients Urinary Catheter Date of Insertion: 07/28/24 Data 07/30/24 02:46 07/30/24 08:55 Micro: Microbiology 07/28/24 16:55 Gram Stain - Final Sputum - Endotracheal Tube Aspirate Sputum Culture - Final 07/28/24 18:05 Blood Culture - Preliminary Blood NEGATIVE TO DATE 07/28/24 18:00 Blood Culture - Preliminary Blood NEGATIVE TO DATE A&P Assessment and plan (1) Shock: (2) Altered mental status: (3) Bradycardia: (4) Respiratory failure: (5) Hyperkalemia: (6) Acute kidney injury superimposed on CKD: (7) CHF (congestive heart failure): (8) Rhinovirus infection: (9) Essential hypertension: (10) Anemia: (11) Insulin dependent type 2 diabetes mellitus: Plan 64-year-old female with past medical history of CKD who was recently discharged to assisted living after getting treated for pneumonia, DELORIS and adjusting of antipsychotics presents back to the ER today with altered mental status found to have bradycardia arrhythmia and shock in setting of hyperkalemia, DELORIS on CKD requiring mechanical ventilation, vasopressor. Hyperkalemia: Currently resolved after emergent dialysis. Continue to monitor every 12 hours. Dialysis as per nephrology team. DELORIS on CKD:Baseline creatinine in past 1 year seems to be 1.6-2.4. On previous admission peaked up to 3.8. Medical decompression done for nephrotoxic drugs. Will confirm patient was not getting discontinued potassium and is at assisted living. Kent catheter. Strict input charting. Appreciate nephrology recommendations. Continue with dialysis for now. Will monitor the urine output and recovery of renal functions and decide about further dialysis as an outpatient. Shock: Most likely cardiogenic in nature versus septic. Keep mean artery pressure 65. Check cortisol levels. Try to wean dopamine and Levophed keeping mean arterial pressure over 65. Follow-up blood culture, urine culture, sputum culture. MRSA swab negative. Discontinue vancomycin. Continue with Zosyn. Check CT chest abdomen pelvis with contrast. Will request for extra dialysis after contrast study. Recent echocardiogram within last 1 week showed an EF of 50 to 55%, grade 1 diastolic dysfunction, moderate MS, mild MR, mild aortic stenosis with aortic valve area of 2.1. Follow-up limited echocardiogram. Respiratory failure: Currently on mechanical ventilator. Sedate with fentanyl and Versed. Keep mean artery pressure over 65, saturation over 92. Repeat ABG and decrease FiO2 accordingly. Repeat chest x-ray and ABG every morning while intubated. Follow-up sputum culture. Type 2 diabetes mellitus: Insulin sliding scale every 4 hours. Monitor for metabolic acidosis. Most recent A1c of 7.3 in March. Chronic anemia: Monitor hemoglobin. Does have history of chronic anemia. Baseline hemoglobin seems to be running from 8.6-9.8. Appreciate recent iron panel, vitamin B12 and folate levels. Follow-up medication list from assisted living. C/w other home medications Plan for the day: Continue to wean dopamine and Levophed keeping mean blood pressure 65 and heart rate more than 50 bpm. Patient on minimal ventilator settings. Plan for sedation vacation. If tolerates sedation vacation plan for possible extubation next 24 hours. Hyperkalemia improving. Dialysis as per nephrology team. Rhinovirus positive. Follow-up blood culture and sputum culture. Continue with IV Zosyn for now. Appreciate cosyntropin stimulation test. Start on Solu-Medrol 40 mg every 8 hour as needed in setting of rhinovirus infection. No concerns for adrenal insufficiency for now. Continue with other chronic antipsych medications. CODE STATUS: It seems patient has court appointed guardian. Full code. Will discuss further with court appointed guardian. Protonix for PUD prophylaxis Heparin for DVT prophylaxis. Attestations 2 Medical Necessity Statement*: Requires further hospitalization for management of cardiogenic shock, respiratory failure in setting of hyperkalemia, DELORIS on CKD requiring emergent dialysis, rhinovirus infection as patient remains mechanically ventilated Critical Care Time: The high probability of a clinically significant, sudden or life threatening deterioration of the patient's [pulmonary, cardiac, renal, neurological] s ystem(s) required my full and direct attention, intervention and personal management. The critical care time is as shown. This time is in addition to time spent performing any reported procedures but includes the following: [x] Data and vital sign review and interpretation [x] Patient assessment, examination and intervention [x] Documentation [x] Medication orders and management Critical Care Time (min): 70 Coding Level of Care Code Critical Care >/= 30 minutes Critical care time (in minutes): 70 The high probability of a clinically significant, sudden or life threatening deterioration, as referenced in this documentation, required my full and direct attention, intervention and personal management. The critical care time shown is in addition to time spent performing any reported separately billable procedures and includes the following: [x] Data and vital sign review and interpretation [x ] Patient assessment, examination and intervention [x] Medication orders and management [x] Patient/Family updates as able [x] Care Coordination and Documentation. Other Coding Information This patient has a high probability of clinically significant, sudden or life threatening deterioration of the patient's (neurological/pulmonary/cardiac/renal/ID/endocrine) systems required my full, direct attention, the highest level of physician preparedness for urgent intervention and personal management. I managed/supervised life or organ supporting interventions that required frequent physician assessment. I devoted my full attention in the ICU to the direct care of this patient for the period of time indicated above. Time I spent with family or surrogate(s) is included only if the patient was incapable of providing necessary information or participating in decision making. This time includes the following services provided: Telemetry review Mechanical Ventilation Hemodynamic interpretation, assessment and management Review and interpretation of CXR Review and interpretation of lab values Review and interpretation of microbiologic data and culture results Review of medications and administration Review and interpretation of Nutrition requirements and management Discussion of management with other consultants and services Clinical update to family members Diagnoses Shock R57.9 Altered mental status R41.82 Bradycardia R00.1 Respiratory failure J96.90 Hyperkalemia E87.5 Acute kidney injury superimposed on CKD N17.9; N18.9 CHF (congestive heart failure) I50.9 Rhinovirus infection B34.8 Essential hypertension I10 Anemia D64.9 Insulin dependent type 2 diabetes mellitus E11.9; Z79.4
[2024-07-30 17:00] LABS: Anion Gap 18.9 (5-19); Blood Urea Nitrogen 49 mg/dL (8-23); Calcium 8.6 mg/dL (8.5-10.5); Carbon Dioxide 24 mmol/L (22-29); Chloride 96 mmol/L (98-107); Creatinine Clr Calc Pharmacy 21.8025; Glomerular Filtration Rate 12.7 mL/min (90-130); Glucose 187 mg/dL (65-115); Osmolality Calculated 296 mOsm/kg (285-295); Potassium 4.9 mmol/L (3.5-5.1); Sodium 134 mmol/L (136-145)
[2024-07-30 17:39] LABS: Glucose Point of Care 231 mg/dL (70-110)
--- NOTE | 2024-07-30 18:30 | PC.NURSE ---
Shift SUmmary: Sedation vacation all day. Turned versed off at 0800. Fentanyl was reduced to 25mcg/hr at 0800. Mental status was hard to assess, sometimes would appear to follow commands, but wouldn't regularly replicate it. [facility] states that her baseline is altered (frequent word salad, orientation to self only at best). central line dressing changed. Total urine output: 125mL. COnsidering extubation tommorow. Dr castro would like patient to be sedated throughout the night to allow rest. TUrn sedation off by 0800 tommorow morning (07/31/2024).
[2024-07-30] MEDS: OLANZapine 5 mg TABLET PO (20:52)
[2024-07-30 21:16] LABS: Glucose Point of Care 210 mg/dL (70-110)
[2024-07-31] VITALS (58 sets, daily range): BP systolic 117–148; BP diastolic 48–73; PULSE 50–68; RESP 12–22; TEMP 35.7–37.3; O2SAT 91–98; BMI 46.4
[2024-07-31] MEDS: fentaNYL 1,000 MCG/100 ML BAG 10 MCG IV (00:06)
[2024-07-31] MEDS: methylPREDNISolone sod succ 40 mg/mL INJ IVP ×4 (00:06→17:26)
[2024-07-31] MEDS: insulin lispro 100 unit/1 mL SUBCUT ×4 (00:12→17:26)
[2024-07-31 00:13] LABS: Glucose Point of Care 252 mg/dL (70-110)
[2024-07-31] MEDS: chlorhexidine gluconate 4% Btl 118 mL 1 APPLIC TOPICAL (03:53)
[2024-07-31 04:00] LABS: Basophils % 0.5 %; Hematocrit 27.5 % (36-47); Lymphocytes # 0.7 10^3/uL (0.8-4.8); Lymphocytes % 8.1 %; Mean Corpuscular HGB Conc 29.5 g/dL (30-55); Mean Corpuscular Hemoglobin 26.3 pg (27-33); Mean Corpuscular Volume 89.3 fl (85-98); Mean Platelet Volume 10.4 fL (7.4-10.4); Monocytes # 0.1 10^3/uL (0.2-0.9); Monocytes % 0.9 %; Neutrophils % 89.6 %; Nucleated Red Blood Cells % 0 %; Platelet Count 264 10^3/cmm (157-399); Red Blood Count 3.08 10^6/uL (3.85-5.65); Red Cell Distribution Width 16.2 % (12.1-15.1); White Blood Count 8.14 10^3/uL (3.29-11.43)
[2024-07-31 04:10] LABS: ABG PCO2 34.8 mmHg (35-45); ABG PH Result 7.44 (7.35-7.45); Alveolar-Arterial Oxygen Gradi 23.4 mmHg (5-10); Arterial Blood Gas Hematocrit 27.5 % (37-47); Base Excess ABG -0.2 mmol/L (-2.0-2.0); Blood Gas Allen Test Pos; Blood Gas Sample Site Radial, right; Blood Gas Sample Type Arterial; Blood Gas Tidal Volume 0.48; Carboxyhemoglobin 1.2 %THgb (0.4-20.1); HCO3 ABG 23.7 mmol/L (22-26); Ionized Calcium Level - ABG 1.1 mmol/L (1.1-1.4); Methemoglobin 0.3 % (0.4-1.5); Oxygen Device VENT; Oxygen Saturation ABG 93.4; PO2 FiO2 Ratio Arterial Blood 160; Potassium Level - ABG 4.5 mmol/L (3.5-5.0)
[2024-07-31 04:18] LABS: Glucose Point of Care 242 mg/dL (70-110)
[2024-07-31 04:27] LABS: Alanine Aminotransferase 13 U/L (0-33); Albumin Level 2.9 g/dL (3.5-5.2); Alkaline Phosphatase 109 U/L (35-105); Aspartate Amino Transferase 12 U/L (0-32); Blood Urea Nitrogen 57 mg/dL (8-23); Calcium 8.5 mg/dL (8.5-10.5); Carbon Dioxide 23 mmol/L (22-29); Chloride 98 mmol/L (98-107); Creatinine Clr Calc Pharmacy 20.1254; Globulin 2.1 g/dL (1.3-4.6); Glomerular Filtration Rate 11.6 mL/min (90-130); Glucose 235 mg/dL (65-115); Magnesium 2.1 mg/dL (1.7-2.3); Osmolality Calculated 303 mOsm/kg (285-295); Phosphorus 6.7 mg/dL (2.5-4.5); Sodium 135 mmol/L (136-145); Total Bilirubin 0.3 mg/dL (0.15-1.2)
--- NOTE | 2024-07-31 06:00 | XRR_ITS ---
PROCEDURE INFORMATION: Exam: XR Chest Exam date and time: 07/31/2024 5:38 AM Age: 64 years old Clinical indication: Other: F/u resp failure; Prior surgery; Surgery date: 6+ months; Surgery type: Gb; Patient HX: F/u for resp failure. Intubated. ; Additional info: Intubation TECHNIQUE: Imaging protocol: Radiologic exam of the chest. Views: 1 view. COMPARISON: CR XR chest 1V portable [id number] 07/30/2024 7:20 AM FINDINGS: Lungs: Vascular engorgement, interstitial and alveolar edema plus bilateral pleural effusions all indicate congestive heart failure. Pleural spaces: See Lungs finding. Heart/Mediastinum: See Vasculature finding. Vasculature: Cardiomegaly and uncoiling of the thoracic aorta unchanged. Bones/joints: Unremarkable. Other findings: Stable life support lines. XR/XR chest 1V portable [id number] IMPRESSION: CHF. No significant change.
[2024-07-31] MEDS: buPROPion XL (24 HR) 150 mg Tablet PO (06:19)
[2024-07-31] MEDS: risperiDONE 1 mg Tablet PO (06:19)
[2024-07-31 06:33] LABS: Glucose Point of Care 261 mg/dL (70-110)
[2024-07-31] MEDS: heparin 5,000 unit/mL INJ 1 mL 5000 UNIT SUBCUT ×2 (07:58→19:33)
[2024-07-31] MEDS: pantoprazole 40 mg SDV IVP ×2 (07:58→19:33)
[2024-07-31] MEDS: piperacillin-tazobactam 3.375 GM in sodium chloride 0.9% (plus) 50 ML IV ×2 (07:58→19:33)
[2024-07-31] MEDS: clopidogrel 75 mg Tablet PO (07:59)
[2024-07-31] MEDS: atorvastatin 40 mg Tablet PO (07:59)
[2024-07-31] MEDS: duloxetine 60 mg Capsule PO (07:59)
[2024-07-31] MEDS: lamoTRIgine 100 mg Tablet PO ×3 (07:59→20:15)
--- NOTE | 2024-07-31 08:09 | P.PN_ITS ---
Subjective 2 Subjective: on 40 % fio2 Medications: Reviewed: Yes Vitals/I&O/Wt Last Vital Signs Temp 97.6 F 07/31/24 04:00 Pulse 54 L 07/31/24 06:00 Resp 12 07/31/24 07:41 BP 132/56 07/31/24 06:00 Pulse Ox 93 07/31/24 07:41 O2 Del Method Mechanical Ventilation 07/31/24 06:00 FiO2 40 07/31/24 07:41 07/30/24 07/31/24 07/31/24 22:59 06:59 14:59 Intake Total 387.581 / 479.524 289.559 / 769.083 Output Total 100 / 125 400 / 525 Balance 287.581 / 354.524 -110.441 / 244.083 Weight last 48 hrs Weight 126.5 kg Weight 133.2 kg Weight 125.5 kg Weight 126.5 kg Weight 126 kg Physical Exam 2 Narrative: , intubated and sedated. Obese ventilated FiO2 of 40%. HEENT normocephalic atraumatic. lungs have crackles. Heart irregular with systolic murmur. Abdomen is soft positive bowel sounds. Extremities bilateral edema. Neuro sedated. Urinary Catheter Management: Kent: Cath Placed During This Visit: yes Reason for Continuing Indwelling Catheter: Accurate Measurement of Urinary Output in Critically Ill Patients Urinary Catheter Date of Insertion: 07/28/24 Data 07/31/24 03:38 07/31/24 03:38 Micro: Microbiology 07/28/24 16:55 Gram Stain - Final Sputum - Endotracheal Tube Aspirate Sputum Culture - Final A&P Assessment and plan (1) Acute kidney injury superimposed on CKD: Patient is a 64-year-old lady with obesity multiple medical problems including heart failure reduced EF psychiatric medical illness hypertension and diabetes. The patient had a creatinine of 1.3 to 1.5 mg/dL in the winter 2023. In the summer 2023 creatinine peaked at 1.9 mg/dL. Patient was admitted to the hospital on July 15, 2024 with a creatinine of 2.6 mg/dL and creatinine peaked at 3.8 mg/dL on July 23, 2024. Patient had improving renal failure with creatinine down to 3.3 mg/dL 2 days ago on July 26, 2024. Patient presents today with altered mental status hypotension bradycardia hypothermia and found to have hyperkalemia with a potassium of 7.8 and creatinine of 5.6 mg/dL. Patient has been intubated and treated with calcium and bicarbonate. Patient remains hyperkalemia with arrhythmias and renal was called for dialysis. 1. Renal insufficiency patient had CKD stage III as of last year and now is going into worsening renal failure. Patient has proteinuria and some hematuria will send all serologies. Patient has no hydronephrosis on renal ultrasound. Patient should be off of DAVID inhibitor's ARB and NSAIDs. Please ensure that is correct. -Patient initiated dialysis on 07/28 --> for hyperkalemia with rhythm abnormalities. s/p hD again yesterday after CTA - K elevated today , will plan for another HD today -serologies are pending 2. replete vit d 3. VDRF 4. Diabetic control as per hospitalist. 5. per hospitalist for CTA 6. abs per hospitalist 7.Recent echocardiogram on July 16, 2024. EF of 50 to 55% moderate to severe mitral annular calcification with moderate mitral stenosis mild aortic stenosis and grade 1 diastolic dysfunction The patient was seen and examined w/ the AIDE of a RN- using A/V equipement Attestations 2 Medical Necessity Statement*: per grzegorz Coding Level of Care Code Acute Code for Chg Fwd Diagnoses Acute kidney injury superimposed on CKD N17.9; N18.9
[2024-07-31 09:05] LABS: Glucose Point of Care 280 mg/dL (70-110)
--- NOTE | 2024-07-31 09:52 | PC.NURSE ---
phuc called about immunization records
[2024-07-31] MEDS: heparin, porcine 1,000 unit/mL INJ 10 mL 10000 UNIT HE (11:27)
[2024-07-31] MEDS: heparin, porcine 1,000 unit/mL INJ 10 mL 10000 UNIT INTRACATH (11:28)
--- NOTE | 2024-07-31 11:48 | ECG_ITS ---
[facility] Date: 2024-07-31 Pat Name: Hilda Wallace Department: Room: ICU12 Gender: Female Palliative Care Nurse: : 1960 Requested By: Patel Jones Order Number: [id number] Kyler MD: Clovis Guerrero M.D. Measurements Intervals [place] Rate: 58 P: 18 OK: 220 QRS: -35 QRSD: 148 T: 120 QT: 503 QTc: 496 Interpretive Statements SINUS BRADYCARDIA WITH FIRST DEGREE AV BLOCK LEFT AXIS DEVIATION [QRS AXIS < -30] RIGHT BUNDLE BRANCH BLOCK [120+ ms QRS DURATION, UPRIGHT V1, 40+ ms S IN I/aVL/V4/V5/V6] LEFT VENTRICULAR HYPERTROPHY AND ST-T CHANGE [VOLTAGE CRITERIA PLUS ST/T ABNORMALITY] Compared to ECG 07/28/2024 23:58:11 Sinus rhythm no longer present ST (T wave) deviation still present Electronically Signed On 08-01-2024 22:37:49 CABLE TECHNICIAN by Clovis Guerrero M.D. [id number]
[2024-07-31 12:05] LABS: Glucose Point of Care 184 mg/dL (70-110)
[2024-07-31] MEDS: fentaNYL 1,000 MCG/100 ML BAG 7.5 MCG IV (14:00)
--- NOTE | 2024-07-31 15:41 | P.PN_ITS ---
Subjective 2 Subjective: No acute events overnight. Patient has remained hemodynamically stable and afebrile. She remains on low-dose of dopamine of 1. Levophed was weaned off. Currently on mechanical ventilator with FiO2 40%, tidal volume of 480 with PEEP of 8 maintaining saturation over 90%. On examination currently she is sedated with fentanyl of 25 and Versed has been turned off. Respiratory therapist reporting significant thick secretions which seems to be improving. Undergoing dialysis today. Vitals/I&O/Wt Last Vital Signs Temp 96.3 F L 07/31/24 15:28 Pulse 55 L 07/31/24 15:28 Resp 20 H 07/31/24 15:28 BP 131/60 07/31/24 15:28 Pulse Ox 93 07/31/24 14:15 O2 Del Method Mechanical Ventilation 07/31/24 06:00 FiO2 40 07/31/24 14:15 07/31/24 07/31/24 07/31/24 06:59 14:59 22:59 Intake Total 289.559 / 769.083 111.283 / 111.283 500 / 611.283 Output Total 400 / 525 2501 / 2501 Balance -110.441 / 244.083 111.283 / 111.283 -2000 / 1889.717 Weight last 48 hrs Weight 128.5 kg Weight 126.5 kg Weight 126.5 kg Weight 133.2 kg Weight 125.5 kg Weight 126.5 kg Physical Exam 2 Narrative: General: Intubated, sedated, able to follow simple directions on sedation vacation HEENT: PERRLA, pupils bilaterally equal and reactive Pulmonary: Bilateral bronchial breath sounds all over lung prater, occasional rhonchi, fine crackles present bilaterally in lower zone CVS: S1-S2, diastolic murmur at apex, bradycardia, occasional missed beat, no gallops, no rubs Abdomen: Soft, nontender, no organomegaly, bowel sounds present Neuro: Intubated, sedated Urinary Catheter Management: Kent: Cath Placed During This Visit: yes Reason for Continuing Indwelling Catheter: Accurate Measurement of Urinary Output in Critically Ill Patients Urinary Catheter Date of Insertion: 07/28/24 Data 08/01/24 05:22 08/01/24 12:33 Micro: Microbiology 07/28/24 16:55 Gram Stain - Final Sputum - Endotracheal Tube Aspirate Sputum Culture - Final A&P Assessment and plan (1) Shock: (2) Altered mental status: (3) Bradycardia: (4) Respiratory failure: (5) Hyperkalemia: (6) Acute kidney injury superimposed on CKD: (7) CHF (congestive heart failure): (8) Rhinovirus infection: (9) Essential hypertension: (10) Anemia: (11) Insulin dependent type 2 diabetes mellitus: Plan 64-year-old female with past medical history of CKD who was recently discharged to assisted living after getting treated for pneumonia, DELORIS and adjusting of antipsychotics presents back to the ER today with altered mental status found to have bradycardia arrhythmia and shock in setting of hyperkalemia, DELORIS on CKD requiring mechanical ventilation, vasopressor. Hyperkalemia: Currently resolved after emergent dialysis. Continue to monitor every 12 hours. Dialysis as per nephrology team. DELORIS on CKD:Baseline creatinine in past 1 year seems to be 1.6-2.4. On previous admission peaked up to 3.8. Medical decompression done for nephrotoxic drugs. Will confirm patient was not getting discontinued potassium and is at assisted living. Kent catheter. Strict input charting. Appreciate nephrology recommendations. Continue with dialysis for now. Will monitor the urine output and recovery of renal functions and decide about further dialysis as an outpatient. Shock: Most likely cardiogenic in nature versus septic. Keep mean artery pressure 65. Check cortisol levels. Try to wean dopamine and Levophed keeping mean arterial pressure over 65. Follow-up blood culture, urine culture, sputum culture. MRSA swab negative. Discontinue vancomycin. Continue with Zosyn. Check CT chest abdomen pelvis with contrast. Will request for extra dialysis after contrast study. Recent echocardiogram within last 1 week showed an EF of 50 to 55%, grade 1 diastolic dysfunction, moderate MS, mild MR, mild aortic stenosis with aortic valve area of 2.1. Follow-up limited echocardiogram. Respiratory failure: Currently on mechanical ventilator. Sedate with fentanyl and Versed. Keep mean artery pressure over 65, saturation over 92. Repeat ABG and decrease FiO2 accordingly. Repeat chest x-ray and ABG every morning while intubated. Follow-up sputum culture. Type 2 diabetes mellitus: Insulin sliding scale every 4 hours. Monitor for metabolic acidosis. Most recent A1c of 7.3 in March. Chronic anemia: Monitor hemoglobin. Does have history of chronic anemia. Baseline hemoglobin seems to be running from 8.6-9.8. Appreciate recent iron panel, vitamin B12 and folate levels. Follow-up medication list from assisted living. C/w other home medications Plan for the day: Levophed weaned off. Keep mean artery pressure 65. Heart rate still trending down on and off below 50. Continues to remain on dopamine. Remains on stable ventilator support. Continues to have high secretions. Getting dialysis today. Repeat chest x-ray. Appreciate ABG. Hyperkalemia so far has resolved. Patient continues to have bradycardia even though hyperkalemia resolved. Medical reconciliation done. For now we will hold off on Risperdal as it can cause prolongation of QTc and bradycardia and less than 5% patients. Continue other chronic medications. Continue with Solu-Medrol 40 mg every 6 hourly for now along with nebulization treatment. Follow-up blood culture and sputum culture. CODE STATUS: It seems patient has court appointed guardian. Full code. Will discuss further with court appointed guardian. Protonix for PUD prophylaxis Heparin for DVT prophylaxis. Attestations 2 Medical Necessity Statement*: Requires further hospitalization for management of acute hypoxic respiratory failure, shock, significant bradycardia in setting of hyperkalemia in setting of DELORIS and CKD on emergent dialysis, mechanical ventilation Critical Care Time: The high probability of a clinically significant, sudden or life threatening deterioration of the patient's [cardiac, renal, pulmonary] system(s) required my full and direct attention, intervention and personal management. The critical care time is as shown. This time is in addition to time spent performing any reported procedures but includes the following: [x] Data and vital sign review and interpretation [x] Patient assessment, examination and intervention [x] Documentation [x] Medication orders and management Critical Care Time (min): 80 Coding Level of Care Code Critical Care >/= 30 minutes Critical care time (in minutes): 80 The high probability of a clinically significant, sudden or life threatening deterioration, as referenced in this documentation, required my full and direct attention, intervention and personal management. The critical care time shown is in addition to time spent performing any reported separately billable procedures and includes the following: [x] Data and vital sign review and interpretation [x ] Patient assessment, examination and intervention [x] Medication orders and management [x] Patient/Family updates as able [x] Care Coordination and Documentation. Other Coding Information This patient has a high probability of clinically significant, sudden or life threatening deterioration of the patient's (neurological/pulmonary/cardiac/renal/ID/endocrine) systems required my full, direct attention, the highest level of physician preparedness for urgent intervention and personal management. I managed/supervised life or organ supporting interventions that required frequent physician assessment. I devoted my full attention in the ICU to the direct care of this patient for the period of time indicated above. Time I spent with family or surrogate(s) is included only if the patient was incapable of providing necessary information or participating in decision making. This time includes the following services provided: Telemetry review Mechanical Ventilation Hemodynamic interpretation, assessment and management Review and interpretation of CXR Review and interpretation of lab values Review and interpretation of microbiologic data and culture results Review of medications and administration Review and interpretation of Nutrition requirements and management Discussion of management with other consultants and services Clinical update to family members Diagnoses Shock R57.9 Altered mental status R41.82 Bradycardia R00.1 Respiratory failure J96.90 Hyperkalemia E87.5 Acute kidney injury superimposed on CKD N17.9; N18.9 CHF (congestive heart failure) I50.9 Rhinovirus infection B34.8 Essential hypertension I10 Anemia D64.9 Insulin dependent type 2 diabetes mellitus E11.9; Z79.4
[2024-07-31 16:32] LABS: Anion Gap 15.8 (5-19); Blood Urea Nitrogen 26 mg/dL (8-23); Calcium 8.4 mg/dL (8.5-10.5); Carbon Dioxide 25 mmol/L (22-29); Chloride 98 mmol/L (98-107); Creatinine Clr Calc Pharmacy 33.3923; Glomerular Filtration Rate 21.3 mL/min (90-130); Glucose 169 mg/dL (65-115); Osmolality Calculated 289 mOsm/kg (285-295); Potassium 3.8 mmol/L (3.5-5.1); Sodium 135 mmol/L (136-145)
[2024-07-31 16:46] LABS: Glucose Point of Care 192 mg/dL (70-110)
[2024-07-31] MEDS: midazolam hcl 100 MG/100 ML BAG IV (17:58)
[2024-07-31] MEDS: OLANZapine 5 mg TABLET PO (20:15)
[2024-07-31 20:24] LABS: Glucose Point of Care 237 mg/dL (70-110)
[2024-07-31] MEDS: fentaNYL 1,000 MCG/100 ML BAG 12.5 MCG IV (23:15)
[2024-08-01] VITALS (48 sets, daily range): BP systolic 106–157; BP diastolic 51–89; PULSE 44–74; RESP 12–28; TEMP 35.8–36.1; O2SAT 88–100; BMI 46.0
[2024-08-01 00:46] LABS: Glucose Point of Care 245 mg/dL (70-110)
[2024-08-01] MEDS: methylPREDNISolone sod succ 40 mg/mL INJ IVP ×4 (00:51→17:27)
[2024-08-01] MEDS: insulin lispro 100 unit/1 mL SUBCUT ×4 (00:51→17:28)
[2024-08-01 02:24] LABS: Glucose Point of Care 261 mg/dL (70-110)
[2024-08-01] MEDS: chlorhexidine gluconate 4% Btl 118 mL 1 APPLIC TOPICAL (04:03)
[2024-08-01 04:18] LABS: ABG PCO2 37.2 mmHg (35-45); ABG PH Result 7.47 (7.35-7.45); Alveolar-Arterial Oxygen Gradi 22.4 mmHg (5-10); Base Excess ABG 3.4 mmol/L (-2.0-2.0); Blood Gas Allen Test Pos; Blood Gas Operator Identificat JDB; Blood Gas Sample Site Radial, right; Blood Gas Sample Type Arterial; Blood Gas Tidal Volume 0.48; Carboxyhemoglobin 1.1 %THgb (0.4-20.1); HCO3 ABG 27.1 mmol/L (22-26); HGB O2 Sat 92.5 % (95-100); Ionized Calcium Level - ABG 1.1 mmol/L (1.1-1.4); Oxygen Device VENT; Oxygen Saturation ABG 94.5; PO2 ABG 67.3 mmHg (80.0-100.0); PO2 FiO2 Ratio Arterial Blood 168; Potassium Level - ABG 3.6 mmol/L (3.5-5.0); Total Hemoglobin 9.8 g/dL (12-16)
[2024-08-01 05:32] LABS: Basophils % 0.3 %; Eosinophils % 0.1 %; Lymphocytes # 0.5 10^3/uL (0.8-4.8); Lymphocytes % 6.3 %; Mean Corpuscular HGB Conc 30.4 g/dL (30-55); Mean Corpuscular Hemoglobin 26.5 pg (27-33); Mean Corpuscular Volume 87.1 fl (85-98); Mean Platelet Volume 10.6 fL (7.4-10.4); Monocytes # 0.3 10^3/uL (0.2-0.9); Monocytes % 3.3 %; Neutrophils # 6.84 10^3/uL (1.8-7.7); Neutrophils % 89.6 %; Nucleated Red Blood Cells % 0 %; Platelet Count 295 10^3/cmm (157-399); White Blood Count 7.63 10^3/uL (3.29-11.43)
[2024-08-01 05:40] LABS: Glucose Point of Care 226 mg/dL (70-110)
[2024-08-01 05:51] LABS: Alanine Aminotransferase 12 U/L (0-33); Albumin Level 2.9 g/dL (3.5-5.2); Alkaline Phosphatase 102 U/L (35-105); Blood Urea Nitrogen 41 mg/dL (8-23); Calcium 8.6 mg/dL (8.5-10.5); Carbon Dioxide 24 mmol/L (22-29); Chloride 99 mmol/L (98-107); Creatinine Clr Calc Pharmacy 24.7749; Glomerular Filtration Rate 15.1 mL/min (90-130); Glucose 238 mg/dL (65-115); Magnesium 2.1 mg/dL (1.7-2.3); Osmolality Calculated 304 mOsm/kg (285-295); Phosphorus 6.1 mg/dL (2.5-4.5); Sodium 138 mmol/L (136-145); Total Bilirubin 0.3 mg/dL (0.15-1.2); Total Protein 5.9 g/dL (6.6-8.7)
[2024-08-01 05:54] LABS: Anion Gap 19.3 (5-19); Aspartate Amino Transferase 14 U/L (0-32); Potassium 4.3 mmol/L (3.5-5.1)
[2024-08-01] MEDS: buPROPion XL (24 HR) 150 mg Tablet PO (06:05)
[2024-08-01] MEDS: fentaNYL 1,000 MCG/100 ML BAG 7.5 MCG IV (06:17)
--- NOTE | 2024-08-01 08:08 | P.PN_ITS ---
Subjective 2 Subjective: remins on vent Medications: Reviewed: Yes Vitals/I&O/Wt Last Vital Signs Temp 96.9 F L 08/01/24 04:00 Pulse 53 L 08/01/24 06:00 Resp 12 08/01/24 07:58 BP 137/59 08/01/24 06:00 Pulse Ox 96 08/01/24 07:58 O2 Del Method Mechanical Ventilation 08/01/24 06:00 FiO2 40 08/01/24 07:58 07/31/24 08/01/24 08/01/24 22:59 06:59 14:59 Intake Total 611.083 / 722.366 210.659 / 933.025 Output Total 2651 / 2651 150 / 2801 Balance -2039.917 / -1928.634 60.659 / -1867.975 Weight last 48 hrs Weight 125.5 kg Weight 128.5 kg Weight 126.5 kg Weight 126.5 kg Weight 133.2 kg Physical Exam 2 Narrative: , intubated and sedated. Obese ventilated FiO2 of 40%. HEENT normocephalic atraumatic. lungs have crackles. Heart irregular with systolic murmur. Abdomen is soft positive bowel sounds. Extremities bilateral edema. Neuro sedated. Urinary Catheter Management: Kent: Cath Placed During This Visit: yes Reason for Continuing Indwelling Catheter: Accurate Measurement of Urinary Output in Critically Ill Patients Urinary Catheter Date of Insertion: 07/28/24 Data 08/01/24 05:22 08/01/24 05:22 A&P Assessment and plan (1) Acute kidney injury superimposed on CKD: Patient is a 64-year-old lady with obesity multiple medical problems including heart failure reduced EF psychiatric medical illness hypertension and diabetes. The patient had a creatinine of 1.3 to 1.5 mg/dL in the winter 2023. In the summer 2023 creatinine peaked at 1.9 mg/dL. Patient was admitted to the hospital on July 15, 2024 with a creatinine of 2.6 mg/dL and creatinine peaked at 3.8 mg/dL on July 23, 2024. Patient had improving renal failure with creatinine down to 3.3 mg/dL 2 days ago on July 26, 2024. Patient presents today with altered mental status hypotension bradycardia hypothermia and found to have hyperkalemia with a potassium of 7.8 and creatinine of 5.6 mg/dL. Patient has been intubated and treated with calcium and bicarbonate. Patient remains hyperkalemia with arrhythmias and renal was called for dialysis. 1. Renal insufficiency patient had CKD stage III as of last year and now is going into worsening renal failure. Patient has proteinuria and some hematuria , serologies pending Patient has no hydronephrosis on renal ultrasound. Patient should be off of DAVID inhibitor's ARB and NSAIDs. -Patient initiated dialysis on 07/28 --> for hyperkalemia with rhythm abnormalities. s/p HD yesterday , no plans for HD today unless pt pt fails extubation and has pulm edema -serologies are pending 2. Acute resp failure sec to VDRF 3. Diabetic control as per hospitalist. 4. .CHF with preserved EF : Recent echocardiogram on July 16, 2024. EF of 50 to 55% moderate to severe mitral annular calcification with moderate mitral stenosis mild aortic stenosis and grade 1 diastolic dysfunction The patient was seen and examined w/ the AIDE of a RN- using A/V equipement Attestations 2 Medical Necessity Statement*: per grzegorz Coding Level of Care Code Acute Code for Chg Fwd Diagnoses Acute kidney injury superimposed on CKD N17.9; N18.9
[2024-08-01 08:21] LABS: Glucose Point of Care 259 mg/dL (70-110)
[2024-08-01] MEDS: duloxetine 60 mg Capsule PO (08:37)
[2024-08-01] MEDS: lamoTRIgine 100 mg Tablet PO (08:37)
[2024-08-01] MEDS: heparin 5,000 unit/mL INJ 1 mL 5000 UNIT SUBCUT (08:37)
[2024-08-01] MEDS: clopidogrel 75 mg Tablet PO (08:37)
[2024-08-01] MEDS: pantoprazole 40 mg SDV IVP (08:37)
[2024-08-01] MEDS: piperacillin-tazobactam 3.375 GM in sodium chloride 0.9% (plus) 50 ML IV (08:37)
[2024-08-01] MEDS: atorvastatin 40 mg Tablet PO (08:37)
[2024-08-01 11:14] LABS: Glucose Point of Care 245 mg/dL (70-110)
--- NOTE | 2024-08-01 11:30 | PC.NURSE ---
all sedation off and extubated pt very agitated and restless mumbling random words non related at this time . og pulled also heart rate 50s crying
--- NOTE | 2024-08-01 12:00 | PC.NURSE ---
had episode of asystole , to room pt breathing after brief period erica, restated dopamine gtt at 5 mcg heart rate slowly back up to 70 doctor here aware, orders noted
--- NOTE | 2024-08-01 12:13 | ECG_ITS ---
[employer] Test Date: 2024-08-01 Pat Name: Hilda Wallace Department: Room: ICU12 Gender: Female Network Technical Analyst: : 1960 Requested By: Patel Jones Order Number: [id number] Kyler MD: Clovis Guerrero M.D. Measurements Intervals [place] Rate: 64 P: 16 MI: 225 QRS: -40 QRSD: 162 T: 118 QT: 484 QTc: 502 Interpretive Statements SINUS RHYTHM WITH FIRST DEGREE AV BLOCK LEFT AXIS DEVIATION [QRS AXIS < -30] INTRAVENTRICULAR CONDUCTION DELAY [130+ ms QRS DURATION] LEFT VENTRICULAR HYPERTROPHY AND ST-T CHANGE [VOLTAGE CRITERIA PLUS ST/T ABNORMALITY] LATERAL MYOCARDIAL INFARCTION , OF INDETERMINATE AGE [40+ ms Q WAVE AND/OR ST/T ABNORMALITY IN I/aVL/V5/V6] INTERPRETATION BASED ON A DEFAULT AGE OF 40 YEARS Compared to ECG 07/31/2024 12:08:26.Intraventricular conduction delay now present Myocardial infarct finding now present. Sinus bradycardia no longer present Right bundle-branch block no longer present .ST (T wave) deviation still present Electronically Signed On 08-01-2024 22:38:09 MILITARY EDUCATION COORDINATOR by Clovis Guerrero M.D. [id number]
[2024-08-01] MEDS: DOPamine drip 400 MG/250 ML PREMIX 19.56 MG IV (12:17)
[2024-08-01 13:04] LABS: Anion Gap 20.6 (5-19); Blood Urea Nitrogen 43 mg/dL (8-23); Calcium 8.4 mg/dL (8.5-10.5); Carbon Dioxide 24 mmol/L (22-29); Chloride 98 mmol/L (98-107); Creatinine Clr Calc Pharmacy 22.9471; Glomerular Filtration Rate 14.1 mL/min (90-130); Glucose 266 mg/dL (65-115); Magnesium 2.2 mg/dL (1.7-2.3); Osmolality Calculated 308 mOsm/kg (285-295); Potassium 3.6 mmol/L (3.5-5.1); Sodium 139 mmol/L (136-145)
[2024-08-01 13:05] LABS: Troponin(5th) Baseline 54 ng/L (0-10)
--- NOTE | 2024-08-01 14:18 | ECG_ITS ---
[facility] Test Date: 2024-08-01 Pat Name: Hilda Wallace Department: Room: ICU12 Gender: Female Sonar Watchstander: : 1960 Requested By: Patel Jones Order Number: [id number] Kyler MD: Clovis Guerrero M.D. Measurements Intervals [place] Rate: 69 P: 15 WV: 222 QRS: -37 QRSD: 154 T: 115 QT: 458 QTc: 493 Interpretive Statements SINUS RHYTHM WITH FIRST DEGREE AV BLOCK LEFT AXIS DEVIATION [QRS AXIS < -30] INTRAVENTRICULAR CONDUCTION DELAY [130+ ms QRS DURATION] LEFT VENTRICULAR HYPERTROPHY AND ST-T CHANGE [VOLTAGE CRITERIA PLUS ST/T ABNORMALITY] POSSIBLE SEPTAL MYOCARDIAL INFARCTION , OF INDETERMINATE AGE [30 ms Q WAVE IN V1/V2] LATERAL MYOCARDIAL INFARCTION , OF INDETERMINATE AGE [40+ ms Q WAVE AND/OR ST/T ABNORMALITY IN I/aVL/V5/V6] Compared to ECG 08/01/2024 12:13:46 No significant changes Electronically Signed On 08-01-2024 22:38:15 SAND CASTER APPRENTICE by Clovis Guerrero M.D. [email or web address]
[2024-08-01 15:00] LABS: Troponin 5 2HR 51.49 ng/L (0-10)
[2024-08-01 15:03] LABS: Troponin 5 2HR Delta -2.51 ABS# (0-10)
--- NOTE | 2024-08-01 15:48 | P.PN_ITS ---
Subjective 2 Subjective: No acute events overnight. Patient has remained hemodynamically stable and afebrile. She remains on low-dose of dopamine of 1. Levophed was weaned off. Currently on mechanical ventilator with FiO2 40%, tidal volume of 480 with PEEP of 8 maintaining saturation over 90%. On examination currently she is sedated with fentanyl of 25 and Versed has been turned off. Respiratory therapist reporting significant thick secretions which seems to be improving. Undergoing dialysis today. Vitals/I&O/Wt Last Vital Signs Temp 96.9 F L 08/01/24 04:00 Pulse 64 08/01/24 14:30 Resp 25 H 08/01/24 14:30 BP 127/61 08/01/24 14:30 Pulse Ox 90 08/01/24 14:30 O2 Del Method Mechanical Ventilation 08/01/24 06:00 FiO2 40 08/01/24 11:21 08/01/24 08/01/24 08/01/24 06:59 14:59 22:59 Intake Total 210.659 / 933.025 187.520 / 187.520 Output Total 150 / 2801 Balance 60.659 / -1867.975 187.520 / 187.520 Weight last 48 hrs Weight 125.5 kg Weight 125.5 kg Weight 128.5 kg Weight 126.5 kg Weight 126.5 kg Physical Exam 2 Narrative: General: Intubated, sedated, able to follow simple directions on sedation vacation HEENT: PERRLA, pupils bilaterally equal and reactive Pulmonary: Bilateral bronchial breath sounds all over lung prater, occasional rhonchi, fine crackles present bilaterally in lower zone CVS: S1-S2, diastolic murmur at apex, bradycardia, occasional missed beat, no gallops, no rubs Abdomen: Soft, nontender, no organomegaly, bowel sounds present Neuro: Intubated, sedated Urinary Catheter Management: Kent: Cath Placed During This Visit: yes Reason for Continuing Indwelling Catheter: Accurate Measurement of Urinary Output in Critically Ill Patients Urinary Catheter Date of Insertion: 07/28/24 Data 08/01/24 05:22 08/01/24 12:33 A&P Assessment and plan (1) Shock: (2) Altered mental status: (3) Bradycardia: (4) Sinus pause: (5) Respiratory failure: (6) Hyperkalemia: (7) Acute kidney injury superimposed on CKD: (8) CHF (congestive heart failure): (9) Rhinovirus infection: (10) Essential hypertension: (11) Anemia: (12) Insulin dependent type 2 diabetes mellitus: Plan 64-year-old female with past medical history of CKD who was recently discharged to assisted living after getting treated for pneumonia, DELORIS and adjusting of antipsychotics presents back to the ER today with altered mental status found to have bradycardia arrhythmia and shock in setting of hyperkalemia, DELORIS on CKD requiring mechanical ventilation, vasopressor. Bradycardia: Episode of sinus pause. Patient continues to have bradycardia even after normalization of hyperkalemia. Risperdal discontinued on 07/31 given concerns for QTc prolongation and bradycardia and less than 5% patients. Patient had a significant episode of sinus pause earlier in the day today. Monitor electrolytes. Troponin cycled. Will consult cardiology for further recommendations. Respiratory failure: Appreciate chest x-ray from today morning. Patient did have extra session of dialysis on 07/31. Doing well on CPAP mode. On minimal ventilator setting. Extubated on 08/01. Monitor ABG postextubation. If developing hypercapnia will plan to place on BiPAP ventilation. For now we will continue with daily ABG. Given concerns for mild somnolence for now we will change olanzapine to as needed. Continue with home dose of lamotrigine and bupropion. Rhinovirus infection: Continue with aggressive pulmonary toilet. I-S, Acapella when possible. Continue with Solu-Medrol 40 mg IV every 6 hours. Will begin within next 24 to 48 hours. Continue with nebulization with Pulmicort twice daily, DuoNeb every 6 hour. Hyperkalemia: Resolved. Continue to monitor every 12 hours. Appreciate nephrology recommendations. DELORIS on CKD:Baseline creatinine in past 1 year seems to be 1.6-2.4. On previous admission peaked up to 3.8. Medical decompression done for nephrotoxic drugs. Will confirm patient was not getting discontinued potassium and is at assisted living. Kent catheter. Strict input charting. Appreciate nephrology recommendations. Continue with dialysis for now. Will monitor the urine output and recovery of renal functions and decide about further dialysis as an outpatient. Shock: Most likely cardiogenic in nature versus septic. Resolved. Keep mean artery pressure 65. Check cortisol levels. Levophed weaned off. Follow-up blood culture, urine culture, sputum culture. MRSA swab negative. Continue with Zosyn. Appreciate CT chest abdomen pelvis with contrast. Will request for extra dialysis after contrast study. Recent echocardiogram within last 1 week showed an EF of 50 to 55%, grade 1 diastolic dysfunction, moderate MS, mild MR, mild aortic stenosis with aortic valve area of 2.1. Follow-up limited echocardiogram. Type 2 diabetes mellitus: Insulin sliding scale every 6 hours. Monitor for metabolic acidosis. Most recent A1c of 7.3 in March. Chronic anemia: Monitor hemoglobin. Does have history of chronic anemia. Baseline hemoglobin seems to be running from 8.6-9.8. Appreciate recent iron panel, vitamin B12 and folate levels. Follow-up medication list from assisted living. C/w other home medications CODE STATUS: It seems patient has court appointed guardian. Full code. Will discuss further with court appointed guardian. Protonix for PUD prophylaxis Heparin for DVT prophylaxis. Attestations 2 Medical Necessity Statement*: Requires further hospitalization for management of bradycardia with sinus pause in setting of hyperkalemia, DELORIS on CKD, respiratory failure postextubation, hypercapnia Critical Care Time: The high probability of a clinically significant, sudden or life threatening deterioration of the patient's [cardiac, pulmonary, renal] system(s) required my full and direct attention, intervention and personal management. The critical care time is as shown. This time is in addition to time spent performing any reported procedures but includes the following: [x] Data and vital sign review and interpretation [x] Patient assessment, examination and intervention [x] Documentation [x] Medication orders and management Critical Care Time (min): 90 Coding Level of Care Code Critical Care >/= 30 minutes Critical care time (in minutes): 90 The high probability of a clinically significant, sudden or life threatening deterioration, as referenced in this documentation, required my full and direct attention, intervention and personal management. The critical care time shown is in addition to time spent performing any reported separately billable procedures and includes the following: [x] Data and vital sign review and interpretation [x ] Patient assessment, examination and intervention [x] Medication orders and management [x] Patient/Family updates as able [x] Care Coordination and Documentation. Other Coding Information This patient has a high probability of clinically significant, sudden or life threatening deterioration of the patient's (neurological/pulmonary/cardiac/renal/ID/endocrine) systems required my full, direct attention, the highest level of physician preparedness for urgent intervention and personal management. I managed/supervised life or organ supporting interventions that required frequent physician assessment. I devoted my full attention in the ICU to the direct care of this patient for the period of time indicated above. Time I spent with family or surrogate(s) is included only if the patient was incapable of providing necessary information or participating in decision making. This time includes the following services provided: Telemetry review Mechanical Ventilation Hemodynamic interpretation, assessment and management Review and interpretation of CXR Review and interpretation of lab values Review and interpretation of microbiologic data and culture results Review of medications and administration Review and interpretation of Nutrition requirements and management Discussion of management with other consultants and services Clinical update to family members Diagnoses Shock R57.9 Altered mental status R41.82 Bradycardia R00.1 Sinus pause I45.5 Respiratory failure J96.90 Hyperkalemia E87.5 Acute kidney injury superimposed on CKD N17.9; N18.9 CHF (congestive heart failure) I50.9 Rhinovirus infection B34.8 Essential hypertension I10 Anemia D64.9 Insulin dependent type 2 diabetes mellitus E11.9; Z79.4
[2024-08-01 16:39] LABS: ABG PCO2 54.9 mmHg (35-45); ABG PH Result 7.32 (7.35-7.45); Alveolar-Arterial Oxygen Gradi 1.5 mmHg (5-10); Arterial Blood Gas Hematocrit 28.5 % (37-47); Base Excess ABG 1.2 mmol/L (-2.0-2.0); Blood Gas Allen Test Pos; Blood Gas Operator Identificat AMH; Blood Gas Sample Site Radial, right; Blood Gas Sample Type Arterial; HGB O2 Sat 91.2 % (95-100); Ionized Calcium Level - ABG 1.1 mmol/L (1.1-1.4); Methemoglobin 0.4 % (0.4-1.5); Oxygen Device OXY MASK; Oxygen Saturation ABG 92.4; PO2 ABG 71.8 mmHg (80.0-100.0); Potassium Level - ABG 3.8 mmol/L (3.5-5.0); Total Hemoglobin 9.3 g/dL (12-16)
[2024-08-01 17:18] LABS: Glucose Point of Care 283 mg/dL (70-110)
--- NOTE | 2024-08-01 18:31 | ECG_ITS ---
[employer] [employer] Test Date: 2024-08-01 Pat Name: Hilda Wallace Department: Room: ICU12 Gender: Female Steam Crane Operator: : 1960 Requested By: Patel Jones Order Number: [id number] Kyler MD: Clovis Guerrero M.D. Measurements Intervals [place] Rate: 65 P: 0 CO: 0 QRS: -34 QRSD: 151 T: 108 QT: 457 QTc: 476 Interpretive Statements sinus rhythm with difficulty AV block LEFT AXIS DEVIATION [QRS AXIS < -30] INTRAVENTRICULAR CONDUCTION DELAY [130+ ms QRS DURATION] LATERAL MYOCARDIAL INFARCTION , OF INDETERMINATE AGE [40+ ms Q WAVE AND/OR ST/T ABNORMALITY IN I/aVL/V5/V6] Compared to ECG 08/01/2024 14:18:30 Sinus rhythm no longer present First degree AV block no longer present Left ventricular hypertrophy no longer present ST (T wave) deviation no longer present Myocardial infarct finding still present Electronically Signed On 08-01-2024 22:38:42 INSTRUCTOR PROGRAMMABLE CONTROLLERS by Clovis Guerrero M.D. [id number]
--- NOTE | 2024-08-01 18:31 | PM.CONSULT ---
Providers/Reason For Consult Consulting Physician/Specialty*: KISHA Guerrero MD/cardiology Reason for Consult*: Patient with the bradycardia and sinus pauses requiring dopamine to improve the heart rate Requesting Physician: Dr. Monson Attending Physician: Patel Jones MD Primary Care Provider: Benigno Jennings DO History of Present Illness History of Present Illness Hilda Wallace is a 64 year old female who is admitted to hospital with altered mental status, hyperkalemia, bradycardia and features of acute renal failure. Apparently she got intubated in the emergency room. Treated with IV insulin, calcium and glucose. Also started on IV dopamine. The heart rate improved. Later on she also was started on dialysis. She was extubated this morning and was doing okay for a while. She again went back to bradycardia with prolonged pauses of up to 5.2 seconds. If she had several of these pauses of more than 3 seconds on the monitor. So she was placed back on the dopamine drip. She currently seems to be doing okay and seems to be in sinus rhythm. Her baseline EKG shows sinus rhythm with a first-degree AV block, left anterior fascicular block and left axis deviation This patient is on a BiPAP. She had a recent CVA and has expressive aphasia. She is not able to communicate much. Most of the information is from the medical records and from the nursing staff. She had a recent prolonged hospital admission where she was admitted with pneumonia, rhinovirus infection, acute kidney injury, diastolic heart failure and agitations. She was discharged home on the and got readmitted on the with altered mental status. Patient is known to have multiple other medical problems including hypertension, type 2 diabetes, chronic kidney disease, COPD, obstructive sleep apnea, anxiety/depressive illness. She is in an assisted living place. She has a power of solid waste disposal manager to make the medical decisions. Currently she is remaining afebrile. She is requiring BiPAP to maintain the oxygen saturation. She had a limited 2D echocardiogram few days ago and was found to have LV ejection fraction around 60%. She has no previous history for coronary disease or myocardial infarction. She had a slightly elevated troponin T with no significant delta. Most likely this is related to the acute kidney failure. Review of Systems Narrative: CONSTITUTIONAL: No fever or chills. Recent rhinovirus infection as mentioned above. EYES: No blurring of vision or other visual disturbances lately. ENT: No hoarseness of voice, auditory disturbances or sore throat. CARDIOVASCULAR: As mentioned above. RESPIRATORY:History of recent pneumonia, COPD, obstructive sleep apnea and hypoxic respiratory failure GASTROINTESTINAL: No hematemesis or melena. GENITOURINARY: Acute on chronic renal failure INTEGUMENTARY: No skin rashes or history of skin cancer. NEURO: Recent altered mental status as mentioned above. Recent CVA, expressive aphasia PSYCHIATRIC: Anxiety/depressive illness HEMATOLOGIC: Chronic anemia ENDOCRINE: No history of polyuria or polydipsia. MUSCULOSKELETAL: No recent joint pain or swelling. ALLERGY/IMMUNOLOGY: As mentioned above. Medications/Allergies Home Medications Medication Instructions Recorded Confirmed Last Taken Type allopurinol 300 mg tablet 300 mg PO DAILY #90 tabs 05/03/20 07/28/24 07/28/24 Rx clopidogrel 75 mg tablet 75 mg PO DAILY 07/08/20 07/28/24 07/28/24 History metoprolol tartrate 25 mg tablet 37.5 mg PO BID 07/08/20 07/28/24 07/28/24 History acetaminophen 325 mg tablet 650 mg PO Q6H PRN PAIN OR ELEVATED 10/03/21 07/28/24 01/15/24 History (Tylenol) TEMP atorvastatin 40 mg tablet 40 mg PO DAILY 10/03/21 07/28/24 03/02/24 History calcium carbonate 500 mg PO Q8H PRN 10/03/21 07/28/24 03/02/24 History gastro-esophageal reflux cetirizine 10 mg tablet 10 mg PO DAILY 10/03/21 07/28/24 07/28/24 History magnesium hydroxide 400 mg/5 mL 30 ml PO DAILY PRN Constipation 10/03/21 07/28/24 Unknown History oral suspension (Milk of Magnesia) omeprazole 20 mg capsule,delayed 20 mg PO DAILY 10/03/21 07/28/24 07/28/24 History release potassium chloride 10 mEq 10 meq PO DAILY #30 caps 09/12/22 07/28/24 07/28/24 Rx capsule,extended release 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 meter,continuous #1 ea 03/12/23 07/28/24 Unknown Rx (Dexcom G7 In Store Representative) 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 sensor (Dexcom G7 #1 ea 03/12/23 07/28/24 Unknown Rx Sensor device) tramadol 50 mg tablet 50 mg PO Q6H PRN pain #120 tabs 11/18/23 07/28/24 03/02/24 Rx ascorbic acid (vitamin C) 500 mg 500 mg PO DAILY 03/03/24 07/28/24 07/28/24 History tablet (Vitamin C) diphenhydramine HCl 25 mg capsule 25 mg PO Q12H PRN Allergy Symptoms 03/03/24 07/28/24 03/02/24 History (Banophen) fluticasone propionate 50 1 spray intranasal Q12H PRN 03/03/24 07/28/24 Unknown History mcg/actuation nasal ALLERGIES spray,suspension lidocaine 5 % topical patch 1 patch topical Q12H PRN Pain 03/03/24 07/28/24 Unknown History ondansetron HCl 4 mg tablet 4 mg PO Q6H PRN Nausea And Vomiting 03/03/24 07/28/24 Unknown History bupropion HCl 150 mg 24 hr tablet, 150 mg PO QAM 07/16/24 07/28/24 07/28/24 History extended release eszopiclone 3 mg tablet 3 mg PO QPM 07/16/24 07/28/24 07/27/24 History lamotrigine 100 mg tablet 100 mg PO TID 07/16/24 07/28/24 07/28/24 History melatonin 10 mg tablet 10 mg PO QPM 07/16/24 07/28/24 07/27/24 History risperidone 1 mg tablet 1 mg PO QAM 07/16/24 07/28/24 07/28/24 History amlodipine 10 mg tablet 10 mg PO DAILY 30 days #30 tabs 07/22/24 07/28/24 07/28/24 Rx duloxetine 60 mg capsule,delayed 60 mg PO DAILY 30 days #30 caps 07/22/24 07/28/24 Unknown Rx release hydralazine 10 mg tablet 10 mg PO Q8H 30 days #90 tabs 07/22/24 07/28/24 07/28/24 Rx insulin aspart U-100 100 unit/mL See Rx Instructions .Route 07/22/24 07/28/24 07/28/24 Rx (3 mL) subcutaneous pen (Novolog .COMPLEX #15 mL FlexPen U-100 Insulin aspart) insulin glargine 100 unit/mL (3 20 unit (0.2 mL) SUBCUT BID 30 07/22/24 07/28/24 03/03/24 Rx mL) subcutaneous pen (Lantus days #12 mL Solostar U-100 Insulin) olanzapine 5 mg tablet 5 mg PO BEDTIME 30 days #30 tabs 07/22/24 07/28/24 07/27/24 Rx furosemide 40 mg tablet 40 mg PO EVERY OTHER DAY 30 days 07/26/24 07/28/24 07/28/24 Rx #30 tabs polyethylene glycol 3350 17 gram 17 g PO DAILY PRN constipation 7 07/26/24 07/28/24 Unknown Rx oral powder packet days #14 ea amoxicillin 875 mg-potassium 1 tab PO BID 07/28/24 07/28/24 07/28/24 History clavulanate 125 mg tablet Allergies Allergy/AdvReac Type Severity Reaction Status Date / Time clarithromycin [From Biaxin] Allergy nausea Verified 04/05/24 23:11 clindamycin Allergy shock Verified 04/05/24 23:11 diclofenac Allergy swelling Verified 04/05/24 23:11 enalapril Allergy unknown Verified 04/05/24 23:11 ketorolac [From Toradol] Allergy short of Verified 04/05/24 23:11 breath losartan [From Cozaar] Allergy shock Verified 04/05/24 23:11 nifedipine [From Procardia] Allergy hives Verified 04/05/24 23:11 pregabalin [From Lyrica] Allergy unknown Verified 04/05/24 23:11 Sulfa (Sulfonamide Allergy anaphylasix Verified 04/05/24 23:11 Antibiotics) Current Medications Generic Name Dose Route Start Last Admin Trade Name Freq PRN Reason Stop Dose Admin Atorvastatin Calcium 40 mg 07/29/24 09:00 08/01/24 08:37 Atorvastatin 40 Mg Tablet PO 40 mg DAILY JAMAR Administration Bupropion HCl 150 mg 07/29/24 06:00 08/01/24 06:05 Bupropion Xl (24 Hr) 150 Mg Tablet PO 150 mg QAM JAMAR Administration Chlorhexidine Gluconate 1 applic 07/30/24 00:00 08/01/24 04:03 Chlorhexidine Gluconate 4% Btl 118 Ml TOPICAL 1 applic Q24H JAMAR Administration Clopidogrel Bisulfate 75 mg 07/29/24 09:00 08/01/24 08:37 Clopidogrel 75 Mg Tablet PO 75 mg DAILY JAMAR Administration Duloxetine HCl 60 mg 07/29/24 09:00 08/01/24 08:37 Duloxetine 60 Mg Capsule PO 60 mg DAILY JAMAR Administration Ergocalciferol 50,000 unit 07/29/24 11:30 07/29/24 14:16 Ergocalciferol (Vitamin D2) 50,000 Unit Capsule PO Not Given Q7D JAMAR Heparin Sodium (Porcine) 5,000 unit 07/28/24 20:30 08/01/24 08:37 Heparin 5,000 Unit/Ml Inj 1 Ml SUBCUT 5,000 unit Q12H JAMAR Administration Piperacillin Sod/Tazobactam 50 mls @ 12.5 mls/hr 07/28/24 20:30 08/01/24 12:38 Sod 3.375 gm/ Sodium Chloride IV Infused Q12H [facility] Infusion Dopamine HCl/Dextrose 400 mg in 250 mls @ 19.561 mls/hr 07/28/24 20:30 08/01/24 12:17 Intropin Drip IV 5 mcg/kg/min CONT JAMAR 19.56 mls/hr Administration Protocol 5 MCG/KG/MIN Insulin Human Lispro 0 unit 07/28/24 18:15 08/01/24 17:28 Insulin Lispro 100 Unit/1 Ml SUBCUT 8 unit Q6H [facility] Administration Protocol Lamotrigine 100 mg 07/28/24 21:00 08/01/24 17:25 Lamotrigine 100 Mg Tablet PO Not Given TID [facility] Methylprednisolone Sodium Succinate 40 mg 07/30/24 12:15 08/01/24 17:27 Methylprednisolone Sod Succ 40 Mg/Ml Inj IVP 40 mg Q6H JAMAR Administration Pantoprazole Sodium 40 mg 07/28/24 20:17 08/01/24 08:37 Pantoprazole 40 Mg Sdv IVP 40 mg Q12H JAMAR Administration PFSH Acute PFSH: Medical History Altered mental status Paranoid Expressive aphasia Anxiety and depression Lives in assisted living facility Rotator cuff tear, right Diabetes mellitus insulin dependent Essential (primary) hypertension Depression due to cerebrovascular accident (CVA) Expressive aphasia Hypomagnesemia Bilateral pneumonia Hyponatremia Hyperkalemia DELORIS (acute kidney injury) Right humeral fracture Metabolic encephalopathy Resolved Acute delirium Resolved Pneumonia due to COVID-19 virus Resolved Poor social situation Multinodular thyroid Acute embolic stroke Recurrent falls Resolved History of CVA (cerebrovascular accident) Acute hypersomnolence disorder LEROY on CPAP Essential hypertension [place] dysphasia Diabetes mellitus with neuropathy Mixed hyperlipidemia Surgical History History of nasal sinusotomy History of cholecystectomy History of tonsillectomy History of repair of rotator cuff History of hysterectomy for indication other than malignancy History of bursectomy Hx of adenoidectomy Status post anal fissurectomy History of colonoscopy Family History Mother CAD (coronary artery disease) Other Asthma Cancer Diabetes Heart disease Hypertension Stroke Social History Smoking and tobacco/nicotine status: former use of tobacco/nicotine Alcohol intake: current Alcohol intake frequency: few times a month Substance/Drug Use: never Vitals/I&O/Wt Last Vital Signs Temp 96.9 F L 08/01/24 04:00 Pulse 62 08/01/24 18:00 Resp 16 08/01/24 18:00 BP 157/61 08/01/24 18:00 Pulse Ox 96 08/01/24 18:00 O2 Del Method Mechanical Ventilation 08/01/24 06:00 FiO2 40 08/01/24 17:02 08/01/24 08/01/24 08/01/24 06:59 14:59 22:59 Intake Total 210.659 / 933.025 187.520 / 187.520 Output Total 150 / 2801 Balance 60.659 / -1867.975 187.520 / 187.520 Weight last 48 hrs Weight 276 lb 10.882 oz Weight 276 lb 10.882 oz Weight 283 lb 4.704 oz Weight 278 lb 14.156 oz Weight 278 lb 14.156 oz Physical Exam Narrative: GENERAL: The patient is drowsy and has poor communication. She is on a BiPAP. Not in any acute distress. Moderately obese HEENT: No significant pallor, icterus or lymphadenopathy.Oral cavity: There are no mucous membrane lesions. NECK: Trachea appears to be central. No masses noted. No JVD or thyromegaly appreciated. RESPIRATORY: Chest is symmetrical. No intercostals muscle retraction or any accessory muscle activation. There is no chest wall tenderness. Breath sounds are heard bilaterally. No rales or rhonchi heard. No evidence of any consolidation. Scattered expiratory wheeze BREASTS: Deferred. HEART: The heart sounds are normal. No S3 or S4. No significant murmurs. No pericardial rub ABDOMEN: No vessel pulsations or distention. No tenderness. No organomegaly appreciated. Bowel sounds are normally heard. : Deferred. RECTAL: Deferred. LYMPHATIC: No lymphadenopathy noted in the neck. EXTREMITIES: Trace edema with no cyanosis. Peripheral pulses are palpable and good volume MUSCULOSKELETAL: No acute joint deformities or swelling SKIN: There are no significant rashes or ecchymosis NEUROPSYCHIATRIC: Patient seems to be drowsy. Has dysphagia. Seems to be moving all extremities Urinary Catheter Management: [place]: Cath Placed During This Visit: yes Reason for Continuing Indwelling Catheter: Accurate Measurement of Urinary Output in Critically Ill Patients Urinary Catheter Date of Insertion: 07/28/24 Data 08/01/24 05:22 08/01/24 12:33 Other Labs: Laboratory Last Values WBC 7.63 10^3/uL (3.29-11.43) 08/01/24 05:22 RBC 3.10 10^6/uL (3.85-5.65) L 08/01/24 05:22 Hgb 8.20 g/dL (11.27-16.99) L 08/01/24 05:22 Hct 27.0 % (36-47) L 08/01/24 05:22 MCV 87.1 fl (85-98) 08/01/24 05:22 MCH 26.5 pg (27-33) L 08/01/24 05:22 MCHC 30.4 g/dL (30-55) 08/01/24 05:22 RDW 16.0 % (12.1-15.1) H 08/01/24 05:22 Plt Count 295 10^3/cmm (157-399) 08/01/24 05:22 MPV 10.6 fL (7.4-10.4) H 08/01/24 05:22 Neut % (Auto) 89.6 % 08/01/24 05:22 Lymph % (Auto) 6.3 % 08/01/24 05:22 [place] % (Auto) 3.3 % 08/01/24 05:22 Eos % (Auto) 0.1 % 08/01/24 05:22 Baso % (Auto) 0.3 % 08/01/24 05:22 Neut # (Auto) 6.84 10^3/uL (1.8-7.7) 08/01/24 05:22 Lymph # (Auto) 0.5 10^3/uL (0.8-4.8) L 08/01/24 05:22 [place] # (Auto) 0.3 10^3/uL (0.2-0.9) 08/01/24 05:22 Eos # (Auto) 0.0 10^3/uL (0.0-0.8) 08/01/24 05:22 Baso # (Auto) 0.0 10^3/uL (0.0-0.1) 08/01/24 05:22 Nucleated RBC % (auto) 0 % 08/01/24 05:22 Nucleated RBCs # 0.0 /100WBC 08/01/24 05:22 Specimen Type Arterial 08/01/24 16:28 Sample Site Radial, right 08/01/24 16:28 ABG pH 7.32 (7.35-7.45) L 08/01/24 16:28 ABG pCO2 54.9 mmHg (35-45) H 08/01/24 16:28 ABG pO2 71.8 mmHg (80.0-100.0) L 08/01/24 16:28 ABG PO2/FiO2 Ratio 168 08/01/24 03:55 ABG HCO3 28.0 mmol/L (22-26) H 08/01/24 16:28 ABG O2 Saturation 92.4 08/01/24 16:28 ABG Base Excess 1.2 mmol/L (-2.0-2.0) 08/01/24 16:28 [place] Test Pos 08/01/24 16:28 A-a O2 Gradient 1.5 mmHg (5-10) L 08/01/24 16:28 Hematocrit 28.5 % (37-47) L 08/01/24 16:28 Hgb O2 Saturation 91.2 % (95-100) L 08/01/24 16:28 Carboxyhemoglobin 1.0 %THgb (0.4-20.1) 08/01/24 16:28 Methemoglobin 0.4 % (0.4-1.5) 08/01/24 16:28 Total Hemoglobin 9.3 g/dL (12-16) L 08/01/24 16:28 Sodium 138.0 mmol/L (131-143) 08/01/24 16:28 Potassium 3.8 mmol/L (3.5-5.0) 08/01/24 16:28 Glucose 270.0 mg/dL (70-115) H 08/01/24 16:28 Ionized Calcium 1.1 mmol/L (1.1-1.4) 08/01/24 16:28 O2 Delivery Device Oxy mask 08/01/24 16:28 O2 Liters/Min 4.0 % 08/01/24 16:28 FiO2 40.0 % 08/01/24 03:55 Tidal Volume 0.48 08/01/24 03:55 PEEP 8.0 cmH20 08/01/24 03:55 Job Developer For Deaf Adults ID Amh 08/01/24 16:28 Sodium 139 mmol/L (136-145) 08/01/24 12:33 Potassium 3.6 mmol/L (3.5-5.1) 08/01/24 12:33 Chloride 98 mmol/L (98-107) 08/01/24 12:33 Carbon Dioxide 24 mmol/L (22-29) 08/01/24 12:33 Anion Gap 20.6 (5-19) H 08/01/24 12:33 BUN 43 mg/dL (8-23) H 08/01/24 12:33 Creatinine 3.3 mg/dL (0.5-0.9) H 08/01/24 12:33 GFR Calculation 14.1 mL/min (90-130) L 08/01/24 12:33 Glucose 266 mg/dL (65-115) H 08/01/24 12:33 POC Glucose 283 mg/dL (70-110) H 08/01/24 17:15 Calculated Osmolality 308 mOsm/kg (285-295) H 08/01/24 12:33 Lactic Acid 1.0 mmol/L (0.5-2.2) 07/28/24 16:35 Uric Acid 5.6 mg/dL (2.4-5.7) 07/28/24 16:35 Calcium 8.4 mg/dL (8.5-10.5) L 08/01/24 12:33 Phosphorus 6.1 mg/dL (2.5-4.5) H 08/01/24 05:22 Magnesium 2.2 mg/dL (1.7-2.3) 08/01/24 12:33 Ferritin 128 ng/mL (15-150) 07/29/24 04:32 Total Bilirubin 0.3 mg/dL (0.15-1.2) 08/01/24 05:22 AST 14 U/L (0-32) 08/01/24 05:22 ALT 12 U/L (0-33) 08/01/24 05:22 Alkaline Phosphatase 102 U/L (35-105) 08/01/24 05:22 Troponin T Baseline 54 ng/L (0-10) H 08/01/24 12:33 Troponin T 120 Minute 51.49 ng/L (0-10) H 08/01/24 14:36 Delta Troponin T -2.51 ABS# (0-10) L 08/01/24 14:36 Troponin T Hi Sens 6Hr 76.98 ng/L (0-10) H 07/28/24 22:31 Troponin T Hi Sens 6Hr Delta -10.02 ng/L (0-12) L 07/28/24 22:31 Total Protein 5.9 g/dL (6.6-8.7) L 08/01/24 05:22 Albumin 2.9 g/dL (3.5-5.2) L 08/01/24 05:22 Globulin 3.0 g/dL (1.3-4.6) 08/01/24 05:22 25-OH Vitamin D Total 7 ng/mL (30-100) L 07/29/24 04:32 Procalcitonin 0.34 ng/mL (0-0.5) 07/29/24 04:32 TSH 1.75 uIU/mL (0.27-4.20) 07/29/24 04:32 PTH Intact 232.1 pg/mL (15-65) H 07/29/24 04:32 Calcium (PTH Intact) 8.9 mg/dL (8.5-10.5) 07/29/24 04:32 Random Cortisol 16.72 ug/dL (2.47-19.5) 07/30/24 02:46 Cortisol Response 07/29/24 16:30 Urine Color Yellow (Yellow) 07/28/24 17:02 Urine Appearance Cloudy (CLEAR) A 07/28/24 17:02 Urine pH 5.0 (5-7) 07/28/24 17:02 Ur Specific [place] 1.030 (1.005-1.030) 07/28/24 17:02 Urine Protein 3+ (Negative) A 07/28/24 17:02 Urine Glucose (UA) Negative (Normal) 07/28/24 17:02 Urine Ketones Trace (Negative) 07/28/24 17:02 Urine Blood Negative (Negative) 07/28/24 17:02 Urine Nitrate Negative (Negative) 07/28/24 17:02 Urine Bilirubin Negative (Negative) 07/28/24 17:02 Urine Urobilinogen 1.0 mg/dL (Negative) 07/28/24 17:02 Ur Leukocyte Esterase 1+ (Negative) A 07/28/24 17:02 Urine RBC 3-5 /hpf (0-2) 07/28/24 17:02 Urine WBC 11-20 /hpf (0-5) H 07/28/24 17:02 Ur Squamous Epith Cells 0-5 /hpf (0-5) 07/28/24 17:02 Amorphous Sediment Not Reportable 07/28/24 17:02 Urine Bacteria None seen /hpf (NONE) 07/28/24 17:02 Hyaline Casts 139.43 /lpf 07/28/24 17:02 Ur Random Sodium 10 mmol/L 07/28/24 17:02 Ur Random Potassium 75 mmol/L 07/28/24 17:02 Ur Random Chloride 12 mmol/L 07/28/24 17:02 Nasal MRSA (PCR) Not detected (Not Detecte) 07/28/24 23:27 Salicylates 1.8 mg/dL (3-10) L 07/28/24 21:18 Anti-ds DNA IgG Ab <1 IU/mL 07/28/24 21:18 Adenovirus (PCR) Not detected (NOT DETECT) 07/29/24 14:55 C. pneumoniae DNA (PCR) Not detected (NOT DETECT) 07/29/24 14:55 Coronavirus 229E (PCR) Not detected (NOT DETECT) 07/29/24 14:55 Hep Bs Antigen Cancelled 07/28/24 21:18 Hep Bs Antigen Non-reactive (Nonreactive) 07/28/24 21:18 Hep Bs Antibody 10.3 (11.5-1000) L 07/28/24 21:18 Hepatitis C Antibody Cancelled 07/28/24 21:18 Hepatitis C Antibody Non-reactive (Nonreactive) 07/28/24 21:18 Human Metapneumovir PCR Not detected (NOT DETECT) 07/29/24 14:55 Influenza A (H1) PCR Not detected (NOT DETECT) 07/29/24 14:55 Influ A (H1/09) PCR Not detected (NOT DETECT) 07/29/24 14:55 Influenza A (H3) PCR Not detected (NOT DETECT) 07/29/24 14:55 Influenza Type A (PCR) Not detected (NOT DETECT) 07/29/24 14:55 Influenza Type B (PCR) Not detected (NOT DETECT) 07/29/24 14:55 M. pneumoniae (PCR) Not detected (NOT DETECT) 07/29/24 14:55 Parainfluenza 1 (PCR) Not detected (NOT DETECT) 07/29/24 14:55 Parainfluenza 2 (PCR) Not detected (NOT DETECT) 07/29/24 14:55 Parainfluenza 3 (PCR) Not detected (NOT DETECT) 07/29/24 14:55 Parainfluenza 4 (PCR) Not detected (NOT DETECT) 07/29/24 14:55 RSV Type A (PCR) Not detected (NOT DETECT) 07/29/24 14:55 RSV Type B (PCR) Not detected (NOT DETECT) 07/29/24 14:55 Entero/Rhino (PCR) Detected (NOT DETECT) A 07/29/24 14:55 SARS-CoV-2 (PCR) Not detected (NOT DETECT) 07/29/24 14:55 Anti-Streptolysin O Ab <20 IU/mL (<200) 07/28/24 21:18 Other data: The EKG showed Normal sinus rhythm with a borderline first-degree AV block. Left axis deviation. Left hemifascicular block. Voltage criteria for LVH. Echocardiogram in June 2024 LV systolic function is normal with EF of 50-55%. Grade 1 diatsolic dysfunction Left atrial dilation Moderate mitral stenosis. Mild kathleen regurgitation Mild aortic stenosis with aortic valve area of 2.1cm2 and mean gradient of 12mmHg. Mild tricuspid regurgitation. Compared to prior echocardiogram from 2020, patient now has moderate mitral stenosis and mild aortic stenosis. Also has grade 1 diastolic dysfun A&P Assessment and plan (1) Sinus pause: This patient has features of sinus node dysfunction and conduction abnormality. She seems to be requiring IV dopamine to maintain the heart rate. At this point, there does not seem to be a reversible cause for the sinus pauses/bradycardia. For further management of her condition, she requires a permanent pacemaker plantation possibly dual-chamber. (2) Bradycardia: As mentioned above. She seems to be responding to the dopamine. (3) Acute kidney injury superimposed on CKD: Patient is on dialysis. Potassium levels are in the normal range. Creatinine level is coming down. (4) Diastolic heart failure: The heart failure appears to be compensated. Qualifiers: Heart failure chronicity: unspecified Qualified Code(s): I50.30 - Unspecified diastolic (congestive) heart failure (5) Essential hypertension: Currently blood pressure is mildly elevated with dopamine. (6) Mixed hyperlipidemia: Continue on the current management (7) Diabetes mellitus with neuropathy: Continue on the current management Qualifiers: Diabetes mellitus type: type 2 Diabetes mellitus termite technician insulin use: with intermediate use Qualified Code(s): E11.40 - Type 2 diabetes mellitus with diabetic neuropathy, unspecified; Z79.4 - long term care administrator (current) use of insulin (8) COPD (chronic obstructive pulmonary disease): The oxygenation is maintained on the CPAP. Qualifiers: COPD type: unspecified COPD Qualified Code(s): J44.9 - Chronic obstructive pulmonary disease, unspecified (9) Chronic anemia: Hemoglobin appears to be stable. Plan I discussed with the patient is her power of solid waste disposal manager [employer] Brent[employer] Ibanez regarding her bradycardia and the need for a permanent pacemaker. He is wanting her to have the pacemaker, if it is indicated. Since we do not have any surgical backup in this hospital, we are not doing any new implants at this point. So we will make arrangements for her to be transferred to a facility where this can be done. Discussed with Dr. Jones. For the time being, patient may be kept on the dopamine. I contacted Dr. Julian, the cardiothoracic surgeon at the [facility]. Dr. Julian accepted her transfer for further management Coding Level of Care Code 29633 Diagnoses Sinus pause I45.5 Bradycardia R00.1 Acute kidney injury superimposed on CKD N17.9; N18.9 Diastolic heart failure, unspecified HF chronicity I50.30 Heart failure chronicity: unspecified Essential hypertension I10 Mixed hyperlipidemia E78.2 Type 2 diabetes mellitus with diabetic neuropathy, with long-term current use of insulin E11.40; Z79.4 Diabetes mellitus type: type 2 Diabetes mellitus termite technician insulin use: with termite technician use Chronic obstructive pulmonary disease, unspecified COPD type J44.9 COPD type: unspecified COPD Chronic anemia D64.9 Time Spent (min) 65
--- NOTE | 2024-08-01 18:54 | P.TS_ITS ---
Transfer Summary Providers Date of Admission: 07/28/24 18:15 Date of Discharge/Transfer: 08/02/24 Attending Provider at Admission: Patel Jones MD Attending Provider at Transfer: Patel Jones MD Primary Care Provider: Benigno Jennings DO Transfer Plans: Anticipated date of transfer: 08/02/24 . Receiving Facility: [facility] . Receiving Provider: Dr. Julian . 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 Reason for Visit Reason for Visit Weakness, Low heart rate Hospital Course Hospital Course Hilda Wallace is a 64 year old female known h/o anxiety with depression, paranoia, diabetes mellitus, CVA, and Warnicke's dysphasia, and dysphasia secondary to CVA, CKD with baseline creatinine of 1.8 more recently going up to 2.4, hypothyroidism, assisted-living resident, type 2 diabetes mellitus, obstructive sleep apnea on CPAP, hypertension who was most recently in hospital from 07/15 to 07/26 when she was treated for agitation, pneumonia, diastolic heart failure and DELORIS on CKD, diagnosed of rhinovirus with adjustment of psych and CHF medications as per her renal functions. She was sent back to the ER today because of altered mental status. In the ER she was found to have severe bradycardia with arrhythmia subsequently found to have hyperkalemia for which she was treated with 2 of IV calcium gluconate, D10 and insulin 10 units, dopamine after which her rhythm became more stable with heart rate running in 40s. During this time patient was intubated. On examination patient has been mechanically ventilated with sedation of fentanyl and Versed, dopamine of 5 with heart rate running in high 40s to low 50s. Blood work showing potassium of more than 7 with creatinine of more than 5. Nephrology has been consulted. Because of poor IV access Central line has been placed. Patient was admitted to the hospital further evaluation and management of cardiogenic shock, respiratory failure in setting of bradycardia arrhythmia due to hyperkalemia and acute kidney injury on CKD. She was intubated on presentation to the ER. Nephrology was consulted and she underwent emergent dialysis. Patient has been tolerated dialysis well and hyperkalemia has resolved. Patient responded well to the treatment and respiratory failure is improving. She was extubated on 08/01 to BiPAP with concerns for mild hypercapnia. Patient is back to her baseline mentation of AO x 1 to 2 with episodes of word salad. During hospitalization she continued to have need for low-dose of dopamine on and off. She has not required Levophed for more than 24 hours. She had echocardiogram showed an EF of 60%. Postextubation she had 2 episodes of sinus pauses up to 3 to 4 seconds. Cardiology was consulted with concerns for possible need of pacemaker. She was placed back on dopamine. Cardiology team advised patient to be transferred to a higher center where she can get pacemaker implantation with surgical backup. Patient was accepted by cardiology team with Dr. Julian at [facility] and has been transferred in hemodynamically stable condition. Physical Exam Narrative: General: Intubated, sedated, able to follow simple directions on sedation vacation HEENT: PERRLA, pupils bilaterally equal and reactive Pulmonary: Bilateral bronchial breath sounds all over lung prater, occasional rhonchi, fine crackles present bilaterally in lower zone CVS: S1-S2, diastolic murmur at apex, bradycardia, occasional missed beat, no gallops, no rubs Abdomen: Soft, nontender, no organomegaly, bowel sounds present Neuro: Intubated, sedated Urinary Catheter Management: Kent: Cath Placed During This Visit: yes Reason for Continuing Indwelling Catheter: Accurate Measurement of Urinary Output in Critically Ill Patients Urinary Catheter Date of Insertion: 07/28/24 TS Data Studies Completed and Pending Pending at discharge Category Date Time Status ABG FULL [Arterial Blood Gas Full] AM LABS Lab 08/02/24 04:00 Ordered ABG FULL [Arterial Blood Gas Full] Routine Lab 08/01/24 22:00 Ordered YI Screen w/ Reflex Routine Lab 07/28/24 21:18 Received Anti-Neutrophil Cytoplasmic AB Routine Lab 07/28/24 21:18 Received Blood Culture Stat Lab 07/28/24 18:05 Results Complete Blood Count w/Auto AM LABS Lab 08/02/24 04:00 Ordered Comprehensive Metabolic Panel AM LABS Lab 08/02/24 04:00 Ordered Drug Tox Monit. Alcohol Metabo Routine Lab 07/28/24 17:02 Received FREE LIGHT CHAIN SERUM [KAPPA/LAMBDA Light Free Serum] Lab 07/28/24 21:18 Received Routine Glomerular Basement AB IGG Routine Lab 07/28/24 21:18 Received Immunofixation Serum Stat Lab 07/28/24 21:18 Received MAG [Magnesium] AM LABS Lab 08/02/24 04:00 Ordered MAG [Magnesium] AM LABS Lab 08/03/24 04:00 Ordered MAG [Magnesium] AM LABS Lab 08/04/24 04:00 Ordered Serum Protien Electrophoresis [Total Protein Lab 07/28/24 21:18 Results Electrophoresis] Routine Troponin(5th) 6 hour. Timed Lab 08/01/24 18:21 Received Completed Studies During Hospitalization Category Date Time Status CT angio chest w abd pel w con Stat Cat Scan 07/29/24 07:20 Completed XR chest 1V portable [id number] QAM Exams 07/29/24 06:00 Completed XR chest 1V portable [id number] QAM Exams 07/30/24 06:00 Completed XR chest 1V portable [id number] QAM Exams 07/31/24 06:00 Completed XR chest 1V portable [id number] Stat Exams 07/28/24 16:34 Completed XR chest 1V portable [id number] Stat Exams 07/28/24 18:14 Completed XR pelvis 1-2V* [id number] Routine Exams 07/28/24 19:32 Completed CV. echo limited [id number] Routine Ultrasound 07/29/24 07:20 Completed US renal BI* [id number] Routine Ultrasound 07/28/24 18:45 Completed Laboratory Last Values WBC 7.63 10^3/uL (3.29-11.43) 08/01/24 05:22 RBC 3.10 10^6/uL (3.85-5.65) L 08/01/24 05:22 Hgb 8.20 g/dL (11.27-16.99) L 08/01/24 05:22 Hct 27.0 % (36-47) L 08/01/24 05:22 MCV 87.1 fl (85-98) 08/01/24 05:22 MCH 26.5 pg (27-33) L 08/01/24 05:22 MCHC 30.4 g/dL (30-55) 08/01/24 05:22 RDW 16.0 % (12.1-15.1) H 08/01/24 05:22 Plt Count 295 10^3/cmm (157-399) 08/01/24 05:22 MPV 10.6 fL (7.4-10.4) H 08/01/24 05:22 Neut % (Auto) 89.6 % 08/01/24 05:22 Lymph % (Auto) 6.3 % 08/01/24 05:22 [place] % (Auto) 3.3 % 08/01/24 05:22 Eos % (Auto) 0.1 % 08/01/24 05:22 Baso % (Auto) 0.3 % 08/01/24 05:22 Neut # (Auto) 6.84 10^3/uL (1.8-7.7) 08/01/24 05:22 Lymph # (Auto) 0.5 10^3/uL (0.8-4.8) L 08/01/24 05:22 [place] # (Auto) 0.3 10^3/uL (0.2-0.9) 08/01/24 05:22 Eos # (Auto) 0.0 10^3/uL (0.0-0.8) 08/01/24 05:22 Baso # (Auto) 0.0 10^3/uL (0.0-0.1) 08/01/24 05:22 Nucleated RBC % (auto) 0 % 08/01/24 05:22 Nucleated RBCs # 0.0 /100WBC 08/01/24 05:22 Specimen Type Arterial 08/01/24 16:28 Sample Site Radial, right 08/01/24 16:28 ABG pH 7.32 (7.35-7.45) L 08/01/24 16:28 ABG pCO2 54.9 mmHg (35-45) H 08/01/24 16:28 ABG pO2 71.8 mmHg (80.0-100.0) L 08/01/24 16:28 ABG PO2/FiO2 Ratio 168 08/01/24 03:55 ABG HCO3 28.0 mmol/L (22-26) H 08/01/24 16:28 ABG O2 Saturation 92.4 08/01/24 16:28 ABG Base Excess 1.2 mmol/L (-2.0-2.0) 08/01/24 16:28 Thien Test Pos 08/01/24 16:28 A-a O2 Gradient 1.5 mmHg (5-10) L 08/01/24 16:28 Hematocrit 28.5 % (37-47) L 08/01/24 16:28 Hgb O2 Saturation 91.2 % (95-100) L 08/01/24 16:28 Carboxyhemoglobin 1.0 %THgb (0.4-20.1) 08/01/24 16:28 Methemoglobin 0.4 % (0.4-1.5) 08/01/24 16:28 Total Hemoglobin 9.3 g/dL (12-16) L 08/01/24 16:28 Sodium 138.0 mmol/L (131-143) 08/01/24 16:28 Potassium 3.8 mmol/L (3.5-5.0) 08/01/24 16:28 Glucose 270.0 mg/dL (70-115) H 08/01/24 16:28 Ionized Calcium 1.1 mmol/L (1.1-1.4) 08/01/24 16:28 O2 Delivery Device Oxy mask 08/01/24 16:28 O2 Liters/Min 4.0 % 08/01/24 16:28 FiO2 40.0 % 08/01/24 03:55 Tidal Volume 0.48 08/01/24 03:55 PEEP 8.0 cmH20 08/01/24 03:55 Retort Fireman ID Amh 08/01/24 16:28 Sodium 139 mmol/L (136-145) 08/01/24 12:33 Potassium 3.6 mmol/L (3.5-5.1) 08/01/24 12:33 Chloride 98 mmol/L (98-107) 08/01/24 12:33 Carbon Dioxide 24 mmol/L (22-29) 08/01/24 12:33 Anion Gap 20.6 (5-19) H 08/01/24 12:33 BUN 43 mg/dL (8-23) H 08/01/24 12:33 Creatinine 3.3 mg/dL (0.5-0.9) H 08/01/24 12:33 GFR Calculation 14.1 mL/min (90-130) L 08/01/24 12:33 Glucose 266 mg/dL (65-115) H 08/01/24 12:33 POC Glucose 283 mg/dL (70-110) H 08/01/24 17:15 Calculated Osmolality 308 mOsm/kg (285-295) H 08/01/24 12:33 Lactic Acid 1.0 mmol/L (0.5-2.2) 07/28/24 16:35 Uric Acid 5.6 mg/dL (2.4-5.7) 07/28/24 16:35 Calcium 8.4 mg/dL (8.5-10.5) L 08/01/24 12:33 Phosphorus 6.1 mg/dL (2.5-4.5) H 08/01/24 05:22 Magnesium 2.2 mg/dL (1.7-2.3) 08/01/24 12:33 Ferritin 128 ng/mL (15-150) 07/29/24 04:32 Total Bilirubin 0.3 mg/dL (0.15-1.2) 08/01/24 05:22 AST 14 U/L (0-32) 08/01/24 05:22 ALT 12 U/L (0-33) 08/01/24 05:22 Alkaline Phosphatase 102 U/L (35-105) 08/01/24 05:22 Troponin T Baseline 54 ng/L (0-10) H 08/01/24 12:33 Troponin T 120 Minute 51.49 ng/L (0-10) H 08/01/24 14:36 Delta Troponin T -2.51 ABS# (0-10) L 08/01/24 14:36 Troponin T Hi Sens 6Hr 76.98 ng/L (0-10) H 07/28/24 22:31 Troponin T Hi Sens 6Hr Delta -10.02 ng/L (0-12) L 07/28/24 22:31 Total Protein 5.9 g/dL (6.6-8.7) L 08/01/24 05:22 Albumin 2.9 g/dL (3.5-5.2) L 08/01/24 05:22 Globulin 3.0 g/dL (1.3-4.6) 08/01/24 05:22 25-OH Vitamin D Total 7 ng/mL (30-100) L 07/29/24 04:32 Procalcitonin 0.34 ng/mL (0-0.5) 07/29/24 04:32 TSH 1.75 uIU/mL (0.27-4.20) 07/29/24 04:32 PTH Intact 232.1 pg/mL (15-65) H 07/29/24 04:32 Calcium (PTH Intact) 8.9 mg/dL (8.5-10.5) 07/29/24 04:32 Random Cortisol 16.72 ug/dL (2.47-19.5) 07/30/24 02:46 Cortisol Response 07/29/24 16:30 Urine Color Yellow (Yellow) 07/28/24 17:02 Urine Appearance Cloudy (CLEAR) A 07/28/24 17:02 Urine pH 5.0 (5-7) 07/28/24 17:02 Ur Specific [place] 1.030 (1.005-1.030) 07/28/24 17:02 Urine Protein 3+ (Negative) A 07/28/24 17:02 Urine Glucose (UA) Negative (Normal) 07/28/24 17:02 Urine Ketones Trace (Negative) 07/28/24 17:02 Urine Blood Negative (Negative) 07/28/24 17:02 Urine Nitrate Negative (Negative) 07/28/24 17:02 Urine Bilirubin Negative (Negative) 07/28/24 17:02 Urine Urobilinogen 1.0 mg/dL (Negative) 07/28/24 17:02 Ur Leukocyte Esterase 1+ (Negative) A 07/28/24 17:02 Urine RBC 3-5 /hpf (0-2) 07/28/24 17:02 Urine WBC 11-20 /hpf (0-5) H 07/28/24 17:02 Ur Squamous Epith Cells 0-5 /hpf (0-5) 07/28/24 17:02 Amorphous Sediment Not Reportable 07/28/24 17:02 Urine Bacteria None seen /hpf (NONE) 07/28/24 17:02 Hyaline Casts 139.43 /lpf 07/28/24 17:02 Ur Random Sodium 10 mmol/L 07/28/24 17:02 Ur Random Potassium 75 mmol/L 07/28/24 17:02 Ur Random Chloride 12 mmol/L 07/28/24 17:02 Nasal MRSA (PCR) Not detected (Not Detecte) 07/28/24 23:27 Salicylates 1.8 mg/dL (3-10) L 07/28/24 21:18 Anti-ds DNA IgG Ab <1 IU/mL 07/28/24 21:18 Adenovirus (PCR) Not detected (NOT DETECT) 07/29/24 14:55 C. pneumoniae DNA (PCR) Not detected (NOT DETECT) 07/29/24 14:55 Coronavirus 229E (PCR) Not detected (NOT DETECT) 07/29/24 14:55 Hep Bs Antigen Cancelled 07/28/24 21:18 Hep Bs Antigen Non-reactive (Nonreactive) 07/28/24 21:18 Hep Bs Antibody 10.3 (11.5-1000) L 07/28/24 21:18 Hepatitis C Antibody Cancelled 07/28/24 21:18 Hepatitis C Antibody Non-reactive (Nonreactive) 07/28/24 21:18 Human Metapneumovir PCR Not detected (NOT DETECT) 07/29/24 14:55 Influenza A (H1) PCR Not detected (NOT DETECT) 07/29/24 14:55 Influ A (H1/09) PCR Not detected (NOT DETECT) 07/29/24 14:55 Influenza A (H3) PCR Not detected (NOT DETECT) 07/29/24 14:55 Influenza Type A (PCR) Not detected (NOT DETECT) 07/29/24 14:55 Influenza Type B (PCR) Not detected (NOT DETECT) 07/29/24 14:55 M. pneumoniae (PCR) Not detected (NOT DETECT) 07/29/24 14:55 Parainfluenza 1 (PCR) Not detected (NOT DETECT) 07/29/24 14:55 Parainfluenza 2 (PCR) Not detected (NOT DETECT) 07/29/24 14:55 Parainfluenza 3 (PCR) Not detected (NOT DETECT) 07/29/24 14:55 Parainfluenza 4 (PCR) Not detected (NOT DETECT) 07/29/24 14:55 RSV Type A (PCR) Not detected (NOT DETECT) 07/29/24 14:55 RSV Type B (PCR) Not detected (NOT DETECT) 07/29/24 14:55 Entero/Rhino (PCR) Detected (NOT DETECT) A 07/29/24 14:55 SARS-CoV-2 (PCR) Not detected (NOT DETECT) 07/29/24 14:55 Anti-Streptolysin O Ab <20 IU/mL (<200) 07/28/24 21:18 Radiology Impressions Renal Ultrasound 07/28/24 18:45 IMPRESSION: Normal renal ultrasound. Pelvis X-Ray 07/28/24 19:32 IMPRESSION: Left femoral line is in expected position overlying the pelvis. Intravascular position cannot be confirmed. Chest/Abdomen/Pelvis CT 07/29/24 07:20 IMPRESSION: 1. Endotracheal tube tip ends in the proximal RIGHT mainstem bronchus. Consider retracting 1 to 2 cm. 2. Good position of the nasogastric tube. 3. Dense areas of consolidation consistent with atelectasis at the lung bases and in a perihilar distribution. 4. No pneumothorax. 5. Small amount of free fluid in the pelvis. Fluid is new since 07/25/2024 6. No GI tract obstruction or colitis. 7. Kent catheter in good position. 8. No pulmonary embolism. 9. Prior cholecystectomy. Chest X-Ray 07/31/24 06:00 IMPRESSION: CHF. No significant change. Recent Clincial Data Last Vital Signs Temp 96.9 F L 08/01/24 04:00 Pulse 62 08/01/24 18:00 Resp 16 08/01/24 18:00 BP 157/61 08/01/24 18:00 Pulse Ox 96 08/01/24 18:00 O2 Del Method Mechanical Ventilation 08/01/24 06:00 FiO2 40 08/01/24 17:02 Vital Signs Pulse Resp BP Pulse Ox FiO2 08/01/24 18:00 62 16 157/61 96 08/01/24 17:30 64 18 145/70 97 08/01/24 17:02 67 95 40 08/01/24 17:00 65 12 146/69 96 08/01/24 16:30 70 17 140/62 92 08/01/24 16:00 62 19 H 138/72 92 08/01/24 16:00 67 08/01/24 15:30 62 22 H 129/65 91 08/01/24 15:00 73 14 140/62 93 08/01/24 14:30 64 25 H 127/61 90 08/01/24 14:00 62 08/01/24 14:00 69 14 138/60 94 08/01/24 13:30 67 14 146/59 92 08/01/24 13:00 70 16 139/55 88 L 08/01/24 12:30 71 14 151/63 92 08/01/24 12:00 63 19 H 140/67 90 08/01/24 11:30 70 132/56 95 08/01/24 11:21 28 H 99 40 08/01/24 11:06 14 99 40 08/01/24 11:00 45 L 140/59 100 08/01/24 10:30 45 L 132/56 99 08/01/24 10:00 44 L 129/54 98 08/01/24 09:30 53 L 148/66 99 08/01/24 09:00 50 L 134/58 97 08/01/24 08:30 48 L 135/56 97 08/01/24 08:00 47 L 139/57 96 08/01/24 08:00 12 08/01/24 07:58 12 96 40 08/01/24 07:30 48 L 137/55 96 08/01/24 07:00 48 L 143/61 94 Intake & Output/Weight 07/30/24 07/31/24 08/01/24 08/02/24 06:59 06:59 06:59 06:59 Intake Total 2243.382 / 2243.382 769.083 / 769.083 933.025 / 933.025 187.520 / 187.520 Output Total 2302 / 2302 525 / 525 2801 / 2801 Balance -58.618 / -58.618 244.083 / 244.083 -1867.975 / -1867.975 187.520 / 187.520 Weight 125.5 kg 126.5 kg 125.5 kg 125.5 kg Vitals Last Vital Signs Temp 96.9 F L 08/01/24 04:00 Pulse 62 08/01/24 18:00 Resp 16 08/01/24 18:00 BP 157/61 08/01/24 18:00 Pulse Ox 96 08/01/24 18:00 O2 Del Method Mechanical Ventilation 08/01/24 06:00 FiO2 40 08/01/24 17:02 TS Medications Medications Acetaminophen (Acetaminophen 325 Mg Tablet) 650 mg PO Q6H PRN PRN Reason: Mild/Mod Pain Or Temp >/= 101 Albuterol/Ipratropium (Ipratropium-Albuterol 3 Ml Neb) 3 ml INHALATION Q4H PRN PRN Reason: SHORTNESS OF BREATH Atorvastatin Calcium (Atorvastatin 40 Mg Tablet) 40 mg PO DAILY [facility] Last Admin: 08/01/24 08:37 Dose: 40 mg Bisacodyl (Bisacodyl 5 Mg Tablet) 10 mg PO DAILY PRN; Protocol PRN Reason: Constipation (see protocol) Bupropion HCl (Bupropion Xl (24 Hr) 150 Mg Tablet) 150 mg PO QAM [facility] Last Admin: 08/01/24 06:05 Dose: 150 mg Chlorhexidine Gluconate (Chlorhexidine Gluconate 4% Btl 118 Ml) 1 applic TOPICAL Q24H [facility] Last Admin: 08/01/24 04:03 Dose: 1 applic Clopidogrel Bisulfate (Clopidogrel 75 Mg Tablet) 75 mg PO DAILY [facility] Last Admin: 08/01/24 08:37 Dose: 75 mg Duloxetine HCl (Duloxetine 60 Mg Capsule) 60 mg PO DAILY [facility] Last Admin: 08/01/24 08:37 Dose: 60 mg Ergocalciferol (Ergocalciferol (Vitamin D2) 50,000 Unit Capsule) 50,000 unit PO Q7D [facility] Last Admin: 07/29/24 14:16 Dose: Not Given Glucagon (Glucagon 1 Mg/Ml Kit 1 Ml) 1 mg IM ONCE PRN; Protocol PRN Reason: Adult Acute Hypoglycemia Nursing Prot. Heparin Sodium (Porcine) (Heparin 5,000 Unit/Ml Inj 1 Ml) 5,000 unit SUBCUT Q12H [facility] Last Admin: 08/01/24 08:37 Dose: 5,000 unit Dextrose (D5w) 500 mls @ 0 mls/hr IV ONCE PRN; Protocol PRN Reason: Adult Acute Hypoglycemia Prot Dextrose (D10w) 125 mls @ 750 mls/hr IV PRN PRN; Protocol PRN Reason: Adult Acute Hypoglycemia Nursing Protocol Dextrose (D10w) 250 mls @ 1,000 mls/hr IV PRN PRN; Protocol PRN Reason: Adult Acute Hypoglycemia Nursing Protocol Albumin Human (Albumin) 12.5 gm in 50 mls @ 60 mls/hr IV PRN PRN PRN Reason: Hypotension and/or symptomatic Piperacillin Sod/Tazobactam (Sod 3.375 gm/ Sodium Chloride) 50 mls @ 12.5 mls/hr IV Q12H JAMAR Last Infusion: 08/01/24 12:38 Dose: Infused Dopamine HCl/Dextrose (Intropin Drip) 400 mg in 250 mls @ 19.561 mls/hr IV CONT JAMAR; Protocol Last Admin: 08/01/24 12:17 Dose: 5 mcg/kg/min, 19.56 mls/hr Sodium Chloride (Sodium Chloride 0.9%) 1,000 mls @ 0 mls/hr IV .Q0M PRN PRN Reason: hypotension or symptomatic Albumin Human (Albumin) 12.5 gm in 50 mls @ 60 mls/hr IV PRN PRN PRN Reason: Hypotension and/or symptomatic Insulin Human Lispro (Insulin Lispro 100 Unit/1 Ml) 0 unit SUBCUT Q6H JAMAR; Protocol Last Admin: 08/01/24 17:28 Dose: 8 unit Lactulose (Lactulose Oral Liq 20 Gm/30 Ml Udc) 10 gm PO DAILY PRN; Protocol PRN Reason: Constipation (see protocol) Lamotrigine (Lamotrigine 100 Mg Tablet) 100 mg PO TID JAMAR Last Admin: 08/01/24 17:25 Dose: Not Given Magnesium Hydroxide (Magnesium Hydroxide 30 Ml Udc) 30 ml PO DAILY PRN; Protocol PRN Reason: Constipation (see protocol) Methylprednisolone Sodium Succinate (Methylprednisolone Sod Succ 40 Mg/Ml Inj) 40 mg IVP Q6H JAMAR Last Admin: 08/01/24 17:27 Dose: 40 mg Morphine Sulfate (Morphine 4 Mg/Ml Sdv 1 Ml) 2 mg IVP Q4H PRN PRN Reason: SEVERE PAIN Olanzapine (Olanzapine 5 Mg Tablet) 5 mg PO BEDTIME PRN PRN Reason: AGITATION Ondansetron HCl (Ondansetron 2 Mg/Ml Sdv 2 Ml) 4 mg IVP Q8H PRN PRN Reason: vomiting, or N/V if npo Pantoprazole Sodium (Pantoprazole 40 Mg Sdv) 40 mg IVP Q12H JAMAR Last Admin: 08/01/24 08:37 Dose: 40 mg Discontinued Medications Albuterol Sulfate (Albuterol 2.5 Mg/3 Ml Neb) 10 mg INHALATION ONCE ONE Stop: 07/28/24 16:42 Last Admin: 07/28/24 16:51 Dose: 10 mg Atropine Sulfate (Atropine 0.1 Mg/Ml Syr 10 Ml) 1 mg IVP ONCE ONE Stop: 07/28/24 16:24 Last Admin: 07/28/24 16:23 Dose: 1 mg Calcium Chloride (Calcium Chloride 10% Syr 10 Ml) 1 gm IVP ONCE ONE Stop: 07/28/24 16:25 Last Admin: 07/28/24 16:24 Dose: 1 gm Calcium Chloride (Calcium Chloride 10% Syr 10 Ml) 1 gm IVP ONCE ONE Stop: 07/28/24 16:29 Last Admin: 07/28/24 16:28 Dose: 1 gm Calcium Gluconate (Calcium Gluconate 0.1 Gm/Ml 10% Sdv 10ml) 2 gm IVP ONCE ONE Stop: 07/28/24 18:03 Last Admin: 07/29/24 20:17 Dose: Not Given Cosyntropin (Cosyntropin 0.25 Mg Sdv) 0.25 mg IVP ONCE ONE Stop: 07/29/24 16:01 Last Admin: 07/29/24 16:30 Dose: 0.25 mg Etomidate (Etomidate 2 Mg/Ml Inj Sdv 10 Ml) 30 mg IVP NOW ONE Stop: 07/28/24 16:37 Last Admin: 07/28/24 16:36 Dose: 30 mg Furosemide (Furosemide 10 Mg/Ml Sdv 10ml) 100 mg IVP ONCE ONE Stop: 07/28/24 18:15 Last Admin: 07/28/24 20:57 Dose: 100 mg Furosemide (Furosemide 10 Mg/Ml Sdv 10ml) 100 mg IVP ONCE ONE Stop: 07/28/24 20:46 Last Admin: 07/28/24 22:22 Dose: 100 mg Heparin Sodium (Porcine) (Heparin, Porcine 1,000 Unit/Ml Inj 10 Ml) 10,000 unit INTRACATH ONCE ONE Stop: 07/28/24 19:04 Last Admin: 07/28/24 22:52 Dose: Not Given Heparin Sodium (Porcine) (Heparin, Porcine 1,000 Unit/Ml Inj 10 Ml) 10,000 unit INTRACATH ONCE ONE Stop: 07/28/24 22:13 Last Admin: 07/28/24 22:36 Dose: 10,000 unit Heparin Sodium (Porcine) (Heparin, Porcine 1,000 Unit/Ml Inj 10 Ml) 10,000 unit HE ONCE ONE Stop: 07/28/24 22:27 Last Admin: 07/28/24 21:35 Dose: 10,000 unit Heparin Sodium (Porcine) (Heparin, Porcine 1,000 Unit/Ml Inj 10 Ml) 2,000 unit HE ONCE ONE Stop: 07/29/24 11:39 Last Admin: 07/29/24 14:20 Dose: Not Given Heparin Sodium (Porcine) (Heparin, Porcine 1,000 Unit/Ml Inj 10 Ml) 2,000 unit HE ONCE ONE Stop: 07/29/24 14:01 Last Admin: 07/29/24 14:19 Dose: 2,000 unit Heparin Sodium (Porcine) (Heparin, Porcine 1,000 Unit/Ml Inj 10 Ml) 10,000 unit INTRACATH ONCE ONE Stop: 07/30/24 08:56 Last Admin: 07/31/24 11:31 Dose: Not Given Heparin Sodium (Porcine) (Heparin, Porcine 1,000 Unit/Ml Inj 10 Ml) 1,000 unit IV ONCE ONE Stop: 07/30/24 08:56 Last Admin: 07/31/24 11:31 Dose: Not Given Heparin Sodium (Porcine) (Heparin, Porcine 1,000 Unit/Ml Inj 10 Ml) 10,000 unit HE ONCE ONE Stop: 07/31/24 11:02 Last Admin: 07/31/24 11:27 Dose: 10,000 unit Heparin Sodium (Porcine) (Heparin, Porcine 1,000 Unit/Ml Inj 10 Ml) 10,000 unit INTRACATH ONCE ONE Stop: 07/31/24 11:02 Last Admin: 07/31/24 11:28 Dose: 10,000 unit Sodium Bicarbonate 150 meq/ (Dextrose) 1,150 mls @ 1,000 mls/hr IV .Q1H9M ONE Stop: 07/28/24 17:53 Last Infusion: 07/28/24 18:00 Dose: Infused Fentanyl (Sublimaze) 1,000 mcg in 100 mls @ 0 mls/hr IV .Q0M JAMAR; Protocol Last Titration: 08/01/24 08:28 Dose: 50 mcg/hr, 5 mls/hr Midazolam HCl (Versed) 100 mg in 100 mls @ 0 mls/hr IV .Q0M JAMAR; Protocol Dextrose (D10w) 250 mls @ 1,000 mls/hr IV ONCE ONE Stop: 07/28/24 18:16 Last Admin: 07/29/24 08:35 Dose: Not Given Insulin Human Regular 10 unit/ (N/A) 0.1 mls @ 0 mls/hr IVP ONCE ONE Stop: 07/28/24 18:03 Norepinephrine Bitartrate (Levophed) Confirm Administered Dose 4 mg in 250 mls @ as directed .ROUTE .STK-MED ONE Stop: 07/28/24 19:24 Vancomycin HCl / Sodium (Chloride) 250 mls @ 0 mls/hr [id number] PROTOCOL JAMAR; Protocol Piperacillin Sod/Tazobactam (Sod / Sodium Chloride) 50 mls @ 0 mls/hr [id number] JAMAR; Protocol Midazolam HCl (Versed) 100 mg in 100 mls @ 0 mls/hr IV .Q0M JAMAR; Protocol Last Titration: 08/01/24 09:38 Dose: 0 mg/hr, 0 mls/hr Norepinephrine Bitartrate (Levophed) 4 mg in 250 mls @ 0 mls/hr IV .Q0M JAMAR; Protocol Last Titration: 07/29/24 18:44 Dose: 0 mcg/min, 0 mls/hr Vancomycin HCl (Vancocin) 2,000 mg in 400 mls @ 200 mls/hr IV ONCE ONE Stop: 07/29/24 03:59 Last Infusion: 07/29/24 16:50 Dose: Infused Insulin Human Regular (Insulin Regular-Human 100 Units/1 Ml) 10 unit IVP ONCE ONE Stop: 07/28/24 16:31 Last Admin: 07/29/24 08:30 Dose: Not Given Insulin Human Regular (Insulin Regular-Human 100 Units/1 Ml) 10 unit IVP ONCE ONE Stop: 07/28/24 18:16 Last Admin: 07/29/24 08:31 Dose: Not Given Iohexol (Iohexol 350 Mg/Ml 500 Ml Btl (Per Ml)) 0 ml IV ONCE ONE Stop: 07/29/24 13:16 Last Admin: 07/29/24 13:15 Dose: 100 ml Olanzapine (Olanzapine 5 Mg Tablet) 5 mg PO BEDTIME JAMAR Last Admin: 07/31/24 20:15 Dose: 5 mg Risperidone (Risperidone 1 Mg Tablet) 1 mg PO QAM JAMAR Last Admin: 07/31/24 06:19 Dose: 1 mg Sodium Bicarbonate (Sodium Bicarbonate 8.4% 1 Meq/Ml 50ml Syr) 50 meq IVP ONCE ONE Stop: 07/28/24 16:27 Last Admin: 07/28/24 16:26 Dose: 50 meq Sodium Polystyrene Sulfonate (Sodium Polystyrene Sulfonate 15 Gm/60 Ml Btl) 30 gm PO ONCE ONE Stop: 07/28/24 17:53 Last Admin: 07/28/24 18:49 Dose: 30 gm Vancomycin HCl (Vancomycin 1,000 Mg Sdv (Pharmacy Mix)) 0 mg XX PRN PRN PRN Reason: Pharmacy to Dose Vecuronium [place] (Vecuronium 10 Mg Sdv) 10 mg IVP ONCE ONE Stop: 07/28/24 16:38 Last Admin: 07/28/24 16:37 Dose: 10 mg Allergies clarithromycin [From Biaxin] Allergy (Verified 04/05/24 23:11) nausea clindamycin Allergy (Verified 04/05/24 23:11) shock diclofenac Allergy (Verified 04/05/24 23:11) swelling enalapril Allergy (Verified 04/05/24 23:11) unknown ketorolac [From Toradol] Allergy (Verified 04/05/24 23:11) short of breath losartan [From Cozaar] Allergy (Verified 04/05/24 23:11) shock nifedipine [From Procardia] Allergy (Verified 04/05/24 23:11) hives pregabalin [From Lyrica] Allergy (Verified 04/05/24 23:11) unknown Sulfa (Sulfonamide Antibiotics) Allergy (Verified 04/05/24 23:11) anaphylasix Home Medications allopurinol 300 mg tablet 300 mg PO DAILY #90 tabs 05/03/20 [Rx Confirmed 07/28/24] clopidogrel 75 mg tablet 75 mg PO DAILY 07/08/20 [History Confirmed 07/28/24] metoprolol tartrate 25 mg tablet 37.5 mg PO BID 07/08/20 [History Confirmed 07/28/24] acetaminophen 325 mg tablet (Tylenol) 650 mg PO Q6H PRN PAIN OR ELEVATED TEMP [History Confirmed 07/28/24] atorvastatin 40 mg tablet 40 mg PO DAILY 10/03/21 [History Confirmed 07/28/24] calcium carbonate 500 mg PO Q8H PRN gastro-esophageal reflux 10/03/21 [History Confirmed 07/28/24] cetirizine 10 mg tablet 10 mg PO DAILY 10/03/21 [History Confirmed 07/28/24] magnesium hydroxide 400 mg/5 mL oral suspension (Milk of Magnesia) 30 ml PO DAILY PRN Constipation 10/03/21 [History Confirmed 07/28/24] omeprazole 20 mg capsule,delayed release 20 mg PO DAILY 10/03/21 [History Confirmed 07/28/24] potassium chloride 10 mEq capsule,extended release 10 meq PO DAILY #30 caps [Rx Confirmed 07/28/24] 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 meter,continuous ([employer] G7 Fish Fryer) #1 ea 03/12/23 [Rx Confirmed 07/28/24] 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 sensor ([employer] G7 Sensor device) #1 ea 03/12/23 [Rx Confirmed ] tramadol 50 mg tablet 50 mg PO Q6H PRN pain #120 tabs 11/18/23 [Rx Confirmed 07/28/24] ascorbic acid (vitamin C) 500 mg tablet (Vitamin C) 500 mg PO DAILY 03/03/24 [History Confirmed 07/28/24] diphenhydramine HCl 25 mg capsule (Banophen) 25 mg PO Q12H PRN Allergy Symptoms 03/03/24 [History Confirmed 07/28/24] fluticasone propionate 50 mcg/actuation nasal spray,suspension 1 spray intranasal Q12H PRN ALLERGIES 03/03/24 [History Confirmed 07/28/24] lidocaine 5 % topical patch 1 patch topical Q12H PRN Pain 03/03/24 [History Confirmed 07/28/24] ondansetron HCl 4 mg tablet 4 mg PO Q6H PRN Nausea And Vomiting 03/03/24 [History Confirmed 07/28/24] bupropion HCl 150 mg 24 hr tablet, extended release 150 mg PO QAM 07/16/24 [History Confirmed 07/28/24] eszopiclone 3 mg tablet 3 mg PO QPM 07/16/24 [History Confirmed 07/28/24] lamotrigine 100 mg tablet 100 mg PO TID 07/16/24 [History Confirmed 07/28/24] melatonin 10 mg tablet 10 mg PO QPM 07/16/24 [History Confirmed 07/28/24] risperidone 1 mg tablet 1 mg PO QAM 07/16/24 [History Confirmed 07/28/24] amlodipine 10 mg tablet 10 mg PO DAILY 30 days #30 tabs 07/22/24 [Rx Confirmed 07/28/24] duloxetine 60 mg capsule,delayed release 60 mg PO DAILY 30 days #30 caps 07/22/24 [Rx Confirmed 07/28/24] hydralazine 10 mg tablet 10 mg PO Q8H 30 days #90 tabs 07/22/24 [Rx Confirmed 07/28/24] insulin aspart U-100 100 unit/mL (3 mL) subcutaneous pen (Novolog FlexPen U-100 Insulin aspart) See Rx Instructions .Route .COMPLEX #15 mL 07/22/24 [Rx Confirmed 07/28/24] insulin glargine 100 unit/mL (3 mL) subcutaneous pen (Lantus Solostar U-100 Insulin) 20 unit (0.2 mL) SUBCUT BID 30 days #12 mL 07/22/24 [Rx Confirmed 07/28/24] olanzapine 5 mg tablet 5 mg PO BEDTIME 30 days #30 tabs 07/22/24 [Rx Confirmed 07/28/24] furosemide 40 mg tablet 40 mg PO EVERY OTHER DAY 30 days #30 tabs 07/26/24 [Rx Confirmed 07/28/24] polyethylene glycol 3350 17 gram oral powder packet 17 g PO DAILY PRN constipation 7 days #14 ea 07/26/24 [Rx Confirmed 07/28/24] amoxicillin 875 mg-potassium clavulanate 125 mg tablet 1 tab PO BID 07/28/24 [History Confirmed 07/28/24] Discharge Plan Discharge Patient Disposition: Xfer Other Condition: Stable Prescriptions: No Action (DME) Dexcom G7 Sensor Device See Rx Instructions .Route Qty: 1 0RF Rx Instructions: As directed (DME) Dexcom G7 Fish Fryer Misc See Rx Instructions .Route Qty: 1 6RF Rx Instructions: As directed allopurinol 300 mg tablet 300 mg PO DAILY Qty: 90 0RF potassium chloride 10 mEq capsule, extended release 10 meq PO DAILY Qty: 30 11RF tramadol 50 mg tablet 50 mg PO Q6H PRN (Reason: pain) Qty: 120 5RF atorvastatin 40 mg tablet 40 mg PO DAILY cetirizine 10 mg Tablet 10 mg PO DAILY magnesium hydroxide [Milk of Magnesia] 400 mg/5 mL Suspension 30 ml PO DAILY PRN (Reason: Constipation) calcium carbonate 500 mg calcium (1,250 mg) Tablet,Chewable 500 mg PO Q8H PRN (Reason: gastro-esophageal reflux) acetaminophen [Tylenol] 325 mg Tablet 650 mg PO Q6H PRN (Reason: PAIN OR ELEVATED TEMP) omeprazole 20 mg Capsule,Delayed Release(Dr/Ec) 20 mg PO DAILY clopidogrel 75 mg tablet 75 mg PO DAILY metoprolol tartrate 25 mg tablet 37.5 mg PO BID amoxicillin-pot clavulanate 875-125 mg tablet 1 tab PO BID ondansetron HCl 4 mg tablet 4 mg PO Q6H PRN (Reason: Nausea And Vomiting) ascorbic acid (vitamin C) [Vitamin C] 500 mg tablet 500 mg PO DAILY diphenhydramine HCl [Banophen] 25 mg Capsule 25 mg PO Q12H PRN (Reason: Allergy Symptoms) lidocaine 5 % Adhesive Patch,Medicated 1 patch TOPICAL Q12H PRN (Reason: Pain) Rx Instructions: leave on most painful area for up to 12 hrs fluticasone propionate 50 mcg/actuation spray,suspension 1 spray INTRANASAL Q12H PRN (Reason: ALLERGIES) risperidone 1 mg Tablet 1 mg PO QAM lamotrigine 100 mg Tablet 100 mg PO TID bupropion HCl 150 mg Tablet Extended Release 24 Hr 150 mg PO QAM eszopiclone 3 mg tablet 3 mg PO QPM melatonin 10 mg Tablet 10 mg PO QPM hydralazine 10 mg Tablet 10 mg PO Q8H 30 Days Qty: 90 0RF amlodipine 10 mg Tablet 10 mg PO DAILY 30 Days Qty: 30 0RF insulin glargine [Lantus Solostar U-100 Insulin] 100 unit/mL (3 mL) insulin pen 20 unit SUBCUT BID 30 Days Qty: 12 0RF olanzapine 5 mg Tablet 5 mg PO BEDTIME 30 Days Qty: 30 0RF duloxetine 60 mg Capsule,Delayed Release(Dr/Ec) 60 mg PO DAILY 30 Days Qty: 30 0RF insulin aspart U-100 [Novolog FlexPen U-100 Insulin] 100 unit/mL (3 mL) insulin pen See Rx Instructions .ROUTE .COMPLEX Qty: 15 0RF Rx Instructions: Inject, subcut, 3 times daily, after meals, based on sliding scale provided furosemide 40 mg tablet 40 mg PO EVERY OTHER DAY 30 Days Qty: 30 0RF Referrals: Benigno Jennings DO [Primary Care Provider] - Patient Instructions: Dialysis Nutrition Plan (DC), Hemodialysis (DC) Transfer Attestations Time Spent in Transfer Care: critical care time Critical Care Time (min): 60 Status at Transfer: Cognitive status at transfer: cognitively intact ; Behavioral status at transfer: cooperative ; Quality Metrics Clinical Quality Measures [ No reported AMI, CVA or VTE this stay] Coding Level of Care Code Acute Code for Chg Fwd Diagnoses Shock R57.9 Altered mental status R41.82 Bradycardia R00.1 Sinus pause I45.5 Respiratory failure J96.90 Hyperkalemia E87.5 Acute kidney injury superimposed on CKD N17.9; N18.9 CHF (congestive heart failure) I50.9 Rhinovirus infection B34.8 Essential hypertension I10 Anemia D64.9 Insulin dependent type 2 diabetes mellitus E11.9; Z79.4
--- NOTE | 2024-08-01 19:16 | PC.NURSE ---
Medical restraints removed due to having 1:1 sitter in room and patient on bipap
--- NOTE | 2024-08-01 19:41 | PC.NURSE ---
Telephone consent obtained from patient's gaurdian, Brenton Hsu, to transfer patient to [facility]. Second nurse Myriam ZARAGOZA verified.
--- NOTE | 2024-08-01 19:43 | PC.NURSE ---
[facility] declined transfer due to weather, Dr. Armijo notified and gave permission to transfer via ground ambulance.
--- NOTE | 2024-08-01 21:00 | PC.NURSE ---
Dopamine Dopamine drip with minimal volume left in bag when leaving facility; extra dopamine bag sent with EMS upon departure.
--- NOTE | 2024-08-01 22:05 | PC.NURSE ---
Day shift nurse called report to rachel louise, this nurse gave report to [facility] ambulance. [facility] picked up patient and departed at 2100.
--- NOTE | 2024-08-02 07:45 | PC.OT ---
OT EVALUATION ORDERS RECIEVED. PATIENT D/C BEFORE EVALUATION COULD BE COMPLETED.
[2024-08-02 10:54] LABS: KAPPA LIGHT CHAIN, FREE, SERUM 49.9 mg/L (3.3-19.4); KAPPA/LAMBDA LIGHT CHAINS FREE 1.43 (0.26-1.65); LAMBDA LIGHT CHAIN, FREE, SERU 34.9 mg/L (5.7-26.3)
[2024-08-02 19:39] LABS: Immunofixation Serum Normal pattern.
[2024-08-02 21:28] LABS: ABNORMAL PROTEIN BAND 1 0.1 g/dL (NONE DETECTED); ALBUMIN 3.3 g/dL (3.8-4.8); ALPHA 1 GLOBULIN 0.4 g/dL (0.2-0.3); ALPHA 2 GLOBULIN 0.8 g/dL (0.5-0.9); BETA 1 GLOBULIN 0.5 g/dL (0.4-0.6); BETA 2 GLOBULIN 0.4 g/dL (0.2-0.5); GAMMA GLOBULIN 0.5 g/dL (0.8-1.7)
[2024-08-03 14:05] LABS: Glomerular Bsmt Membrane IGG <1.0 AI
[2024-08-04 03:45] LABS: ANCA Screen NEGATIVE (NEGATIVE)
[2024-08-04 18:18] LABS: Anti-Nuclear Antibody Screen NEGATIVE (NEGATIVE)
== END 2024-08-01 21:00 | disposition short-term general hospital (02) | DRG 208 ==
LOC: ER 17:47 → ICU 18:15
PROVIDERS: Hospitalist; Internal Medicine; Internal Medicine Nephrology; Admitting Provider Student in an Organized Health Care Education/Training Program; Emergency Provider Family Medicine; PCP Family Medicine; Visit Provider Student in an Organized Health Care Education/Training Program
DX: J96.02 Acute respiratory failure with hypercapnia (principal); R57.0 Cardiogenic shock; N17.9 Acute kidney failure, unspecified; I13.0 Hypertensive heart and chronic kidney disease with heart failure and stage 1 through stage 4 chronic kidney disease, or unspecified chronic kidney disease; I50.32 Chronic diastolic (congestive) heart failure; Z68.41 Body mass index [BMI] 40.0-44.9, adult; R00.1 Bradycardia, unspecified; B97.89 Other viral agents as the cause of diseases classified elsewhere; N18.30 Chronic kidney disease, stage 3 unspecified; E11.22 Type 2 diabetes mellitus with diabetic chronic kidney disease; I05.0 Rheumatic mitral stenosis; J44.9 Chronic obstructive pulmonary disease, unspecified; Z87.01 Personal history of pneumonia (recurrent); I69.920 Aphasia following unspecified cerebrovascular disease; E11.40 Type 2 diabetes mellitus with diabetic neuropathy, unspecified; Z79.4 Long term (current) use of insulin; I95.9 Hypotension, unspecified; I44.0 Atrioventricular block, first degree; E66.9 Obesity, unspecified; D63.1 Anemia in chronic kidney disease; G47.33 Obstructive sleep apnea (adult) (pediatric); F80.2 Mixed receptive-expressive language disorder; R68.0 Hypothermia, not associated with low environmental temperature; Z87.891 Personal history of nicotine dependence; Z90.49 Acquired absence of other specified parts of digestive tract; E78.2 Mixed hyperlipidemia; Z86.16 Personal history of COVID-19; F32.A Depression, unspecified; F41.9 Anxiety disorder, unspecified; Z88.2 Allergy status to sulfonamides; Z79.891 Long term (current) use of opiate analgesic; Z79.02 Long term (current) use of antithrombotics/antiplatelets; E87.5 Hyperkalemia
CPT/HCPCS: 36415; 36416; 36592; 36600; 51702; 71045; 71275; 72170; 74177; 76770; 80048; 80051; 80053; 80307; 81001; 82306; 82310; 82330; 82436; 82533; 82728; 82805; 82962; 83520; 83605; 83735; 83883; 83970; 84100; 84132; 84133; 84145; 84155; 84165; 84300; 84443; 84484; 84550; 85025; 86036; 86038; 86060; 86225; 86334; 86706; 86803; 87040; 87070; 87205; 87340; 87486; 87581; 87633; 90935; 93005; 93308; 94002; 94003; 94640; 94660; 94799; 96365; 96366; 96367; 96372; 96374; 96375; 96376; 99291; 99292; J0461; J0834; J1265; J1644; J1815; J1940; J2250; J2470; J2543; J2919; J3010; J3372; J3490; J7070; J7613; Q3014

== ENCOUNTER 2024-08-30 15:50 | Inpatient (IN) | payer MEDICARE, SELFPAY ==
[2024-08-30] VITALS (20 sets, daily range): BP systolic 154–177; BP diastolic 50–74; PULSE 60–70; RESP 16–38; TEMP 36.4–36.6; O2SAT 91–98
--- NOTE | 2024-08-30 15:58 | ECG_ITS ---
[facility] Date: 2024-08-30 Pat Name: Hilda Wallace Department: Room: Gender: Female Control Cabinet Assembler: : 1960 Requested By: Laure Atkinson Order Number: [id number] Chávez MD: Clovis Guerrero M.D. Measurements Intervals [place] Rate: 71 P: -75 KS: 250 QRS: -40 QRSD: 136 T: 88 QT: 394 QTc: 429 Interpretive Statements ELECTRONIC ATRIAL PACEMAKER LEFT AXIS DEVIATION [QRS AXIS < -30] RIGHT BUNDLE BRANCH BLOCK [120+ ms QRS DURATION, UPRIGHT V1, 40+ ms S IN I/aVL/V4/V5/V6] LEFT VENTRICULAR HYPERTROPHY AND ST-T CHANGE [VOLTAGE CRITERIA PLUS ST/T ABNORMALITY] Compared to ECG 08/01/2024 18:31:57 Right bundle-branch block now present. Left ventricular hypertrophy now present ST (T wave) deviation now present. Sinus rhythm no longer present Intraventricular conduction delay no longer present Myocardial infarct finding no longer present Electronically Signed On 08-31-2024 23:55:43 DESIGN RELEASE ENGINEER by Clovis Guerrero M.D. [id number]
--- NOTE | 2024-08-30 15:58 | XRR_ITS ---
PROCEDURE INFORMATION: Exam: XR Chest Exam date and time: 08/30/2024 4:00 PM Age: 64 years old Clinical indication: Shortness of breath; Prior surgery; Surgery date: 6+ months; Surgery type: Pacer; Additional info: SOB TECHNIQUE: Imaging protocol: Radiologic exam of the chest. Views: 1 view. COMPARISON: CR (CHEST, ) 07/31/2024 5:38 AM FINDINGS: Tubes, catheters and devices: Pacer device noted in the left chest wall. Lungs: Peribronchial wall thickening. No consolidation. Pleural spaces: Unremarkable. No pleural effusion. No pneumothorax. Heart/Mediastinum: Unremarkable. No cardiomegaly. Bones/joints: Rotator cuff anchors noted in both humeral heads. Chronic appearing deformity of the proximal right humerus. XR/XR chest 1V portable [id number] IMPRESSION: Sequela of bronchitis.
[2024-08-30] MEDS: ipratropium-albuterol 3 mL Neb INHALATION ×2 (16:08→21:03)
--- NOTE | 2024-08-30 16:11 | ED_ITS ---
HPI - SOB/Dyspnea 2 General: Chief Complaint: Shortness of Breath/Dyspnea Stated Complaint: SOB Time Seen by Provider: 08/30/24 15:53 Source: patient and EMS Mode of arrival: EMS History of Present Illness: HPI Narrative: 64-year-old female has a history of anuradha estive heart failure along with COPD is here from assisted living for increased shortness of breath patient has been refusing meds there she typically does not wear oxygen she is currently on 2 L she has had a wheezing cough increased swelling to her extremities. Associated symptoms: Deny abdominal pain, chest pain, fever(s), nausea or vomiting Related Data Home Medications Medication Instructions Recorded Confirmed clopidogrel 75 mg tablet 75 mg PO DAILY 07/08/20 08/30/24 metoprolol tartrate 25 mg tablet 37.5 mg PO BID 07/08/20 08/30/24 acetaminophen 325 mg tablet 650 mg PO Q6H PRN PAIN OR ELEVATED 10/03/21 08/30/24 (Tylenol) TEMP atorvastatin 40 mg tablet 40 mg PO BEDTIME 10/03/21 08/30/24 calcium carbonate 500 mg PO Q8H PRN 10/03/21 08/30/24 gastro-esophageal reflux cetirizine 10 mg tablet 10 mg PO DAILY 10/03/21 08/30/24 magnesium hydroxide 400 mg/5 mL 30 ml PO DAILY PRN Constipation 10/03/21 08/30/24 oral suspension (Milk of Magnesia) omeprazole 20 mg capsule,delayed 20 mg PO DAILY 10/03/21 08/30/24 release ascorbic acid (vitamin C) 500 mg 500 mg PO DAILY 03/03/24 08/30/24 tablet (Vitamin C) diphenhydramine HCl 25 mg capsule 25 mg PO Q12H PRN Allergy Symptoms 03/03/24 08/30/24 (Banophen) fluticasone propionate 50 1 spray intranasal Q12H PRN 03/03/24 08/30/24 mcg/actuation nasal ALLERGIES spray,suspension lidocaine 5 % topical patch 1 patch topical Q12H PRN Pain 03/03/24 08/30/24 ondansetron HCl 4 mg tablet 4 mg PO Q6H PRN Nausea And Vomiting 03/03/24 08/30/24 bupropion HCl 150 mg 24 hr tablet, 150 mg PO QAM 07/16/24 08/30/24 extended release eszopiclone 3 mg tablet 3 mg PO BEDTIME 07/16/24 08/30/24 lamotrigine 100 mg tablet 100 mg PO TID 07/16/24 08/30/24 risperidone 1 mg tablet 1 mg PO QAM 07/16/24 08/30/24 amlodipine 10 mg tablet 10 mg PO DAILY 08/30/24 08/30/24 hydralazine 25 mg tablet 25 mg PO Q8H 08/30/24 08/30/24 insulin aspart U-100 100 unit/mL 15 unit SUBCUT TID 08/30/24 08/30/24 (3 mL) subcutaneous pen (Novolog FlexPen U-100 Insulin aspart) insulin glargine 100 unit/mL (3 33 unit SUBCUT BID 08/30/24 08/30/24 mL) subcutaneous pen (Lantus Solostar U-100 Insulin) melatonin 5 mg tablet 10 mg PO BEDTIME 08/30/24 08/30/24 olanzapine 5 mg tablet 5 mg PO BEDTIME 08/30/24 08/30/24 Previous Rx's Medication Instructions Recorded allopurinol 300 mg tablet 300 mg PO DAILY #90 tabs 05/03/20 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 meter,continuous #1 ea 03/12/23 (Dexcom G7 Laundry Route Driver) 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 sensor (Dexcom G7 #1 ea 03/12/23 Sensor device) tramadol 50 mg tablet 50 mg PO Q6H PRN pain #120 tabs 11/18/23 Allergies Allergy/AdvReac Type Severity Reaction Status Date / Time clarithromycin [From Biaxin] Allergy nausea Verified 04/05/24 23:11 clindamycin Allergy shock Verified 04/05/24 23:11 diclofenac Allergy swelling Verified 04/05/24 23:11 enalapril Allergy unknown Verified 04/05/24 23:11 ketorolac [From Toradol] Allergy short of Verified 04/05/24 23:11 breath losartan [From Cozaar] Allergy shock Verified 04/05/24 23:11 nifedipine [From Procardia] Allergy hives Verified 04/05/24 23:11 pregabalin [From Lyrica] Allergy unknown Verified 04/05/24 23:11 Sulfa (Sulfonamide Allergy anaphylasix Verified 04/05/24 23:11 Antibiotics) Review of Systems 2 Const: Denies: fever(s), chills, body aches or change in appetite ENMT: Denies: throat pain or dental pain Card: Denies: chest pain Resp: Reports: dyspnea, non-productive cough and wheezing GI: Denies: abdominal pain, nausea, vomiting or diarrhea Musc: Denies: neck pain or back pain Skin/Breast: Denies: rash Neuro: Denies: headache(s) All/Imm: Denies: urticaria PFSH ED 2 PFSH: Medical History (Updated 08/30/24 @ 18:18 by Laure Atkinson MD) DELORIS (acute kidney injury) Altered mental status Paranoid Expressive aphasia Anxiety and depression Lives in assisted living facility Rotator cuff tear, right Diabetes mellitus insulin dependent Essential (primary) hypertension Depression due to cerebrovascular accident (CVA) Expressive aphasia Hypomagnesemia Bilateral pneumonia Hyponatremia Hyperkalemia Right humeral fracture Metabolic encephalopathy Resolved Acute delirium Resolved Pneumonia due to COVID-19 virus Resolved Poor social situation Multinodular thyroid Acute embolic stroke Recurrent falls Resolved History of CVA (cerebrovascular accident) Acute hypersomnolence disorder LEROY on CPAP Essential hypertension [place]ern[place]ke dysphasia Diabetes mellitus with neuropathy Mixed hyperlipidemia Surgical History History of nasal sinusotomy History of cholecystectomy History of tonsillectomy History of repair of rotator cuff History of hysterectomy for indication other than malignancy History of bursectomy Hx of adenoidectomy Status post anal fissurectomy History of colonoscopy Family History Mother CAD (coronary artery disease) Other Asthma Cancer Diabetes Heart disease Hypertension Stroke Social History Smoking and tobacco/nicotine status: former use of tobacco/nicotine Alcohol intake: current Alcohol intake frequency: few times a month Substance/Drug Use: never Physical Exam 2 Const: COMMON NORMALS: patient oriented x3 GENERAL APPEARANCE: ill appearing HENMT: COMMON NORMALS: normocephalic and atraumatic HEAD & SCALP: n ormocephalic and atraumatic Eye: COMMON NORMALS: conjunctivae normal CONJUNCTIVA: Yes conjunctivae normal Neck/C-Spine: COMMON NORMALS: full ROM and supple Chest: COMMONS NORMALS: normal inspection of the chest Resp: EFFORT & INSPECTION: Yes tachypneic and Yes respiratory distress A USCULTATION: wheezes Cardio: COMMON NORMALS: regular rate, regular rhythm and No murmurs present (Cardio) RATE: regular rate RHYTHM: regular rhythm GI: COMMON NORMALS: Normal to inspection, nondistended, normoactive bowel sounds present, Soft to palpation, non-tender and no masses PALPATION: Yes Soft to palpation Extremity: COMMON NORMALS: normal to inspection and full ROM Neuro: COMMON NORMALS: patient oriented x3, moves all extremities and no focal motor deficits Psych: COMMON NORMALS: mental status grossly normal, Normal thought process present and cooperative THOUGHT PROCESS: Normal thought process present Skin: COMMON NORMALS: no rashes or lesions noted and no wounds GENERAL SKIN EXAM: no rashes or lesions noted Course 2 Vital Signs: Vital signs: Vital Signs Temperature 97.6 F 08/30/24 15:59 Pulse Rate 63 08/30/24 18:00 Respiratory Rate 28 H 08/30/24 18:00 Blood Pressure 170/60 08/30/24 18:00 Pulse Oximetry 96 08/30/24 18:00 Oxygen Delivery Me thod BiPAP 08/30/24 18:00 Oxygen Flow Rate 3 08/30/24 16:21 Fraction of Inspir ed Oxygen 30 08/30/24 16:34 MDM - SOB/Dyspnea Medical Decision Making Patient presents here with shortness of breath likely COPD exacerbation she has been hypoxic along with some mild hypercapnia patient placed on BiPAP is improved I spoke to hospitalist will admit to the ICU at this time. Medical Records I reviewed the patient's medical records. Lab Data I reviewed the patient's lab results. 08/30/24 15:35 08/30/24 15:35 Labs/Radiology: Radiology Impressions Chest X-Ray 08/30/24 15:58 IMPRESSION: Sequela of bronchitis. Laboratory Results WBC 9.69 10^3/uL (3.29-11.43) 08/30/24 15:35 RBC 3.30 10^6/uL (3.85-5.65) L 08/30/24 15:35 Hgb 9.10 g/dL (11.27-16.99) L 08/30/24 15:35 Hct 31.5 % (36-47) L 08/30/24 15:35 MCV 95.5 fl (85-98) 08/30/24 15:35 MCH 27.6 pg (27-33) 08/30/24 15:35 MCHC 28.9 g/dL (30-55) L 08/30/24 15:35 RDW 17.6 % (12.1-15.1) H 08/30/24 15:35 Plt Count 247 10^3/cmm (157-399) 08/30/24 15:35 MPV 10.0 fL (7.4-10.4) 08/30/24 15:35 Neut % (Auto) 83.3 % 08/30/24 15:35 Lymph % (Auto) 6.7 % 08/30/24 15:35 Drew % (Auto) 6.1 % 08/30/24 15:35 Eos % (Auto) 2.5 % 08/30/24 15:35 Baso % (Auto) 0.4 % 08/30/24 15:35 Neut # (Auto) 8.07 10^3/uL (1.8-7.7) H 08/30/24 15:35 Lymph # (Auto) 0.7 10^3/uL (0.8-4.8) L 08/30/24 15:35 Drew # (Auto) 0.6 10^3/uL (0.2-0.9) 08/30/24 15:35 Eos # (Auto) 0.2 10^3/uL (0.0-0.8) 08/30/24 15:35 Baso # (Auto) 0.0 10^3/uL (0.0-0.1) 08/30/24 15:35 Nucleated RBC % (auto) 0.2 % 08/30/24:35 Nucleated RBCs # 0.0 /100WBC 08/30/24 15:35 PT 13.30 SECONDS (12.1-14.9) 08/30/24 15:35 INR 0.95 (0.8-1.2) 08/30/24 15:35 Specimen Type Arterial 08/30/24 16:14 Sample Site Brachial, left 08/30/24 16:14 ABG pH 7.28 (7.35-7.45) L 08/30/24 16:14 ABG pCO2 47.8 mmHg (35-45) H 08/30/24 16:14 ABG pO2 85.1 mmHg (80.0-100.0) 08/30/24 16:14 ABG PO2/FiO2 Ratio 265 08/30/24 16:14 ABG HCO3 22.2 mmol/L (22-26) 08/30/24 16:14 ABG Base Excess -4.5 mmol/L (-2.0-2.0) L 08/30/24 16:14 Thien Test N/a 08/30/24 16:14 Hematocrit 28.6 % (37-47) L 08/30/24 16:14 Hgb O2 Saturation 94.0 % (95-100) L 08/30/24 16:14 Carboxyhemoglobin 1.8 %THgb (0.4-20.1) 08/30/24 16:14 Methemoglobin 1.0 % (0.4-1.5) 08/30/24 16:14 Total Hemoglobin 9.3 g/dL (12-16) L 08/30/24 16:14 O2 Delivery Device Nc 08/30/24 16:14 O2 Liters/Min 3.0 % 08/30/24 16:14 FiO2 32.0 % 08/30/24 16:14 Material Crew Supervisor ID Amh 08/30/24 16:14 Sodium 143 mmol/L (136-145) 08/30/24 15:35 Potassium 5.0 mmol/L (3.5-5.1) 08/30/24 15:35 Chloride 110 mmol/L (98-107) H 08/30/24 15:35 Carbon Dioxide 23 mmol/L (22-29) 08/30/24 15:35 Anion Gap 15.0 (5-19) 08/30/24 15:35 BUN 65 mg/dL (8-23) H 08/30/24 15:35 Creatinine 2.2 mg/dL (0.5-0.9) H 08/30/24 15:35 GFR Calculation 22.5 mL/min (90-130) L 08/30/24 15:35 Glucose 297 mg/dL (65-115) H 08/30/24 15:35 Calculated Osmolality 326 mOsm/kg (285-295) H 08/30/24 15:35 Lactic Acid 1.5 mmol/L (0.5-2.2) 08/30/24 15:35 Calcium 8.9 mg/dL (8.5-10.5) 08/30/24 15:35 Total Bilirubin 0.3 mg/dL (0.15-1.2) 08/30/24 15:35 AST 10 U/L (0-32) 08/30/24 15:35 ALT 18 U/L (0-33) 08/30/24 15:35 Alkaline Phosphatase 142 U/L (35-105) H 08/30/24 15:35 NT-Pro-B Natriuret Pep 2411 pg/mL (0-125) H 08/30/24 15:35 Total Protein 5.9 g/dL (6.6-8.7) L 08/30/24 15:35 Albumin 3.5 g/dL (3.5-5.2) 08/30/24 15:35 Globulin 2.4 g/dL (1.3-4.6) 08/30/24 15:35 All radiology interpretation(s) finalized by discharge EKG Data EKG 1: I personally reviewed and interpreted this EKG as follows: EKG Interpretation Date: 08/30/24 EKG interpretation time: 15:58 Interpretation: paced hr [address] elevation qrs 136 qtc 416 Discharge Plan Discharge Patient Disposition: Admitted As Inpatient Admit Provider: Raad Chung Clinical Impression: Acute exacerbation of chronic obstructive airways disease, Acute respiratory failure with hypoxia and hypercapnia Condition: Stable Coding Level of Care Code ED Staff Combat Information Center Officer for Chg Josefina
--- NOTE | 2024-08-30 16:11 | PC.PHAR ---
Pt is red HAINES
[2024-08-30 16:15] LABS: Basophils % 0.4 %; Eosinophils # 0.2 10^3/uL (0.0-0.8); Eosinophils % 2.5 %; Hematocrit 31.5 % (36-47); Lymphocytes # 0.7 10^3/uL (0.8-4.8); Lymphocytes % 6.7 %; Mean Corpuscular HGB Conc 28.9 g/dL (30-55); Mean Corpuscular Hemoglobin 27.6 pg (27-33); Mean Corpuscular Volume 95.5 fl (85-98); Monocytes # 0.6 10^3/uL (0.2-0.9); Monocytes % 6.1 %; Neutrophils # 8.07 10^3/uL (1.8-7.7); Neutrophils % 83.3 %; Nucleated Red Blood Cells % 0.2 %; Platelet Count 247 10^3/cmm (157-399); Red Cell Distribution Width 17.6 % (12.1-15.1); White Blood Count 9.69 10^3/uL (3.29-11.43)
[2024-08-30 16:25] LABS: ABG PCO2 47.8 mmHg (35-45); ABG PH Result 7.28 (7.35-7.45); Arterial Blood Gas Hematocrit 28.6 % (37-47); Base Excess ABG -4.5 mmol/L (-2.0-2.0); Blood Gas Operator Identificat AMH; Blood Gas Sample Site Brachial, left; Blood Gas Sample Type Arterial; Carboxyhemoglobin 1.8 %THgb (0.4-20.1); HCO3 ABG 22.2 mmol/L (22-26); Oxygen Device NC; PO2 ABG 85.1 mmHg (80.0-100.0); PO2 FiO2 Ratio Arterial Blood 265; Total Hemoglobin 9.3 g/dL (12-16)
[2024-08-30 16:28] LABS: INR 0.95 (0.8-1.2)
[2024-08-30 16:44] LABS: Alanine Aminotransferase 18 U/L (0-33); Albumin Level 3.5 g/dL (3.5-5.2); Alkaline Phosphatase 142 U/L (35-105); Aspartate Amino Transferase 10 U/L (0-32); Blood Urea Nitrogen 65 mg/dL (8-23); Calcium 8.9 mg/dL (8.5-10.5); Carbon Dioxide 23 mmol/L (22-29); Chloride 110 mmol/L (98-107); Creatinine Clr Calc Pharmacy 32.1506; Globulin 2.4 g/dL (1.3-4.6); Glomerular Filtration Rate 22.5 mL/min (90-130); Glucose 297 mg/dL (65-115); NT Pro B Type Natriuretic Pept 2411 pg/mL (0-125); Osmolality Calculated 326 mOsm/kg (285-295); Sodium 143 mmol/L (136-145); Total Bilirubin 0.3 mg/dL (0.15-1.2); Total Protein 5.9 g/dL (6.6-8.7)
[2024-08-30] MEDS: FUROsemide 10 mg/mL SDV 4mL 40 MG IVP (17:39)
--- NOTE | 2024-08-30 18:00 | CTR_ITS ---
PROCEDURE INFORMATION: Exam: CT Chest Without Contrast; Diagnostic Exam date and time: 08/30/2024 6:24 PM Age: 64 years old Clinical indication: Other: Abd distention; Cough; Additional info: SOB, abdominal distention TECHNIQUE: Imaging protocol: Diagnostic computed tomography of the chest without contrast. Radiation optimization: All CT scans at this facility use at least one of these dose optimization techniques: automated exposure control; mA and/or kV adjustment per patient size (includes targeted exams where dose is matched to clinical indication); or iterative reconstruction. COMPARISON: CT angio chest w abd pel w con 07/29/2024 1:13 PM RADIATION DOSE METRICS: Total DLP (mGy-cm): 1921.28 FINDINGS: Tubes, catheters and devices: Left-sided pacemaker. Lungs: Bilateral dependent atelectasis versus infiltrate. Pleural spaces: Moderate bilateral pleural effusions. Heart: Mild cardiomegaly. Coronary arteries: Coronary artery atherosclerotic calcifications. Lymph nodes: Scattered subcentimeter short axis mediastinal lymph nodes. Vasculature: Unremarkable. No aortic aneurysm. Bones/joints: Multilevel bridging degenerative calcifications throughout the spine. Soft tissues: Unremarkable. PROCEDURE INFORMATION: Exam: CT Abdomen And Pelvis Without Contrast Exam date and time: 08/30/2024 6:24 PM Age: 64 years old Clinical indication: Other: Abd distention; Cough; Additional info: SOB, abdominal distention TECHNIQUE: Imaging protocol: Computed tomography of the abdomen and pelvis without contrast. Radiation optimization: All CT scans at this facility use at least one of these dose optimization techniques: automated exposure control; mA and/or kV adjustment per patient size (includes targeted exams where dose is matched to clinical indication); or iterative reconstruction. COMPARISON: CT angio chest w abd pel w con 07/29/2024 1:13 PM RADIATION DOSE METRICS: Total DLP (mGy-cm): 1921.28 FINDINGS: Liver: Normal. No mass. Gallbladder and biliary ducts: Cholecystectomy. Pancreas: Normal. No ductal dilation. Spleen: Normal. No splenomegaly. Adrenal glands: Normal. No mass. Kidneys and ureters: Normal. No hydronephrosis. Stomach and bowel: Moderate constipation. Diverticulosis without diverticulitis. Appendix: No evidence of appendicitis. Intraperitoneal space: Unremarkable. No free air. No significant fluid collection. Vasculature: Proximal celiac, superior mesenteric and bilateral renal arteries demonstrate a large amount of eccentric atherosclerotic calcification. Lymph nodes: See Soft tissues finding. Urinary bladder: Unremarkable as visualized. Reproductive: Unremarkable as visualized. Bones/joints: Unremarkable. No acute fracture. Soft tissues: Anasarca. Left lower anterior pelvic wall 17 mm suspected lymph node in the subcutaneous fat. CT/[place] [id number] IMPRESSION: 1. Moderate bilateral pleural effusions. 2. Coronary artery atherosclerotic calcifications. 3. Left-sided pacemaker. 4. Mild cardiomegaly. 5. Scattered subcentimeter short axis mediastinal lymph nodes. 6. Bilateral dependent atelectasis versus infiltrate. 7. Multilevel bridging degenerative calcifications throughout the spine. IMPRESSION: 1. Negative for focal acute inflammatory process in the abdomen or pelvis. 2. Cholecystectomy. 3. Proximal celiac, superior mesenteric and bilateral renal arteries demonstrate a large amount of eccentric atherosclerotic calcification. 4. Anasarca. 5. Moderate constipation 6. Diverticulosis without diverticulitis. 7. Left lower anterior pelvic wall 17 mm suspected lymph node in the subcutaneous fat.
--- NOTE | 2024-08-30 18:00 | CTR_ITS ---
PROCEDURE INFORMATION: Exam: CT Head Without Contrast Exam date and time: 08/30/2024 6:21 PM Age: 64 years old Clinical indication: Altered mental status/memory loss; Confusion or disorientation; Additional info: AMS TECHNIQUE: Imaging protocol: Computed tomography of the head without contrast. Radiation optimization: All CT scans at this facility use at least one of these dose optimization techniques: automated exposure control; mA and/or kV adjustment per patient size (includes targeted exams where dose is matched to clinical indication); or iterative reconstruction. COMPARISON: CT head wo con* [id number] 07/15/2024 5:13 PM RADIATION DOSE METRICS: Total DLP (mGy-cm): 1098.84 FINDINGS: Brain: No hemorrhage. No edema. Area of encephalomalacia in the left parietal and temporal lobes corresponding to old infarct. Old infarct also noted in the right cerebellar hemisphere. Mild diffuse cerebral atrophy. No mass effect. Cerebral ventricles: No ventriculomegaly. Paranasal sinuses: Visualized sinuses are unremarkable. No fluid levels. Mastoid air cells: Visualized mastoid air cells are well aerated. Bones: Unremarkable. No acute fracture. Soft tissues: Unremarkable. CT/CT head wo con* [id number] IMPRESSION: No acute intracranial abnormality.
--- NOTE | 2024-08-30 18:04 | P.HP_ITS ---
Providers/Chief Complaint 2 Primary Care Provider: Benigno Jennings DO Chief Complaint: SOB History of Present Illness Hilda Wallace is a 64 year old female with a past medical history of anxiety and depression, paranoia, type 2 diabetes mellitus, CVA, dysphagia, Warnicke's,'s history of CVA, CKD, hypothyroidism, obstructive sleep apnea, hypertension, recent hospitalization for severe bradycardia with hyperkalemia requiring intubation, dialysis, eventually extubated, transferred to [facility] for pacemaker placement, and discharged to [facility]. Currently patient is alert and oriented x 0, she opens her eyes to her name, but does not respond, she is tries to mouth a couple of words in the BiPAP but falls back asleep, she moves bilateral upper extremities, she saturating in the high 90s on BiPAP, her GCS score 10, nursing staff tell me that she did talk to them for a bit, but fell back asleep, I spoke to nurses at [facility], they tell me that Hilda has taken a significant decline since her last hospitalization. Before her last hospitalization she was able to ambulate with a walker, she was able to carry conversations, now she is more bedbound, she is confused, she can barely carry out conversations she has been refusing her medications, refusing her insulin she is in the gown she was sent home from [facility] as she refused nursing staff to take it off. She was sent over to [facility] as she was increasingly short of breath this morning, with wheezing and crackles with increasing lower extremity edema increased confusion weakness, fatigue. No reported falls. She does have a history of a stroke, and dysphagia Review of Systems 2 General: Reports: ROS unobtainable due to mental status Medications/Allergies Home Medications Medication Instructions Recorded Confirmed Last Taken Type allopurinol 300 mg tablet 300 mg PO DAILY #90 tabs 05/03/20 08/30/24 08/29/24 Rx clopidogrel 75 mg tablet 75 mg PO DAILY 07/08/20 08/30/24 08/29/24 History metoprolol tartrate 25 mg tablet 37.5 mg PO BID 07/08/20 08/30/24 08/29/24 History acetaminophen 325 mg tablet 650 mg PO Q6H PRN PAIN OR ELEVATED 10/03/21 08/30/24 01/15/24 History (Tylenol) TEMP atorvastatin 40 mg tablet 40 mg PO BEDTIME 10/03/21 08/30/24 08/28/24 History calcium carbonate 500 mg PO Q8H PRN 10/03/21 08/30/24 03/02/24 History gastro-esophageal reflux cetirizine 10 mg tablet 10 mg PO DAILY 10/03/21 08/30/24 08/29/24 History magnesium hydroxide 400 mg/5 mL 30 ml PO DAILY PRN Constipation 10/03/21 08/30/24 Unknown History oral suspension (Milk of Magnesia) omeprazole 20 mg capsule,delayed 20 mg PO DAILY 10/03/21 08/30/24 08/29/24 History release 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 meter,continuous #1 ea 03/12/23 08/30/24 Unknown Rx (Dexcom G7 Reed Dipper) 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 sensor (Dexcom G7 #1 ea 03/12/23 08/30/24 Unknown Rx Sensor device) tramadol 50 mg tablet 50 mg PO Q6H PRN pain #120 tabs 11/18/23 08/30/24 08/25/24 Rx ascorbic acid (vitamin C) 500 mg 500 mg PO DAILY 03/03/24 08/30/24 08/29/24 History tablet (Vitamin C) diphenhydramine HCl 25 mg capsule 25 mg PO Q12H PRN Allergy Symptoms 03/03/24 08/30/24 03/02/24 History (Banophen) fluticasone propionate 50 1 spray intranasal Q12H PRN 03/03/24 08/30/24 Unknown History mcg/actuation nasal ALLERGIES spray,suspension lidocaine 5 % topical patch 1 patch topical Q12H PRN Pain 03/03/24 08/30/24 Unknown History ondansetron HCl 4 mg tablet 4 mg PO Q6H PRN Nausea And Vomiting 03/03/24 08/30/24 Unknown History bupropion HCl 150 mg 24 hr tablet, 150 mg PO QAM 07/16/24 08/30/24 08/29/24 History extended release eszopiclone 3 mg tablet 3 mg PO BEDTIME 07/16/24 08/30/24 08/28/24 History lamotrigine 100 mg tablet 100 mg PO TID 07/16/24 08/30/24 08/30/24 History risperidone 1 mg tablet 1 mg PO QAM 07/16/24 08/30/24 08/29/24 History amlodipine 10 mg tablet 10 mg PO DAILY 08/30/24 08/30/24 08/28/24 History hydralazine 25 mg tablet 25 mg PO Q8H 08/30/24 08/30/24 08/29/24 History insulin aspart U-100 100 unit/mL 15 unit SUBCUT TID 08/30/24 08/30/24 08/30/24 History (3 mL) subcutaneous pen (Novolog FlexPen U-100 Insulin aspart) insulin glargine 100 unit/mL (3 33 unit SUBCUT BID 08/30/24 08/30/24 08/29/24 History mL) subcutaneous pen (Lantus Solostar U-100 Insulin) melatonin 5 mg tablet 10 mg PO BEDTIME 08/30/24 08/30/24 08/28/24 History olanzapine 5 mg tablet 5 mg PO BEDTIME 08/30/24 08/30/24 08/28/24 History Allergies Allergy/AdvReac Type Severity Reaction Status Date / Time clarithromycin [From Biaxin] Allergy nausea Verified 04/05/24 23:11 clindamycin Allergy shock Verified 04/05/24 23:11 diclofenac Allergy swelling Verified 04/05/24 23:11 enalapril Allergy unknown Verified 04/05/24 23:11 ketorolac [From Toradol] Allergy short of Verified 04/05/24 23:11 breath losartan [From Cozaar] Allergy shock Verified 04/05/24 23:11 nifedipine [From Procardia] Allergy hives Verified 04/05/24 23:11 pregabalin [From Lyrica] Allergy unknown Verified 04/05/24 23:11 Sulfa (Sulfonamide Allergy anaphylasix Verified 04/05/24 23:11 Antibiotics) PFSH Acute 2 PFSH: Medical History (Updated 08/30/24 @ 18:18 by Laure Atkinson MD) DELORIS (acute kidney injury) Altered mental status Paranoid Expressive aphasia Anxiety and depression Lives in assisted living facility Rotator cuff tear, right Diabetes mellitus insulin dependent Essential (primary) hypertension Depression due to cerebrovascular accident (CVA) Expressive aphasia Hypomagnesemia Bilateral pneumonia Hyponatremia Hyperkalemia Right humeral fracture Metabolic encephalopathy Resolved Acute delirium Resolved Pneumonia due to COVID-19 virus Resolved Poor social situation Multinodular thyroid Acute embolic stroke Recurrent falls Resolved History of CVA (cerebrovascular accident) Acute hypersomnolence disorder LEROY on CPAP Essential hypertension Wernicke dysphasia Diabetes mellitus with neuropathy Mixed hyperlipidemia Surgical History History of nasal sinusotomy History of cholecystectomy History of tonsillectomy History of repair of rotator cuff History of hysterectomy for indication other than malignancy History of bursectomy Hx of adenoidectomy Status post anal fissurectomy History of colonoscopy Family History Mother CAD (coronary artery disease) Other Asthma Cancer Diabetes Heart disease Hypertension Stroke Social History Smoking and tobacco/nicotine status: former use of tobacco/nicotine Alcohol intake: current Alcohol intake frequency: few times a month Substance/Drug Use: never Vitals/I&O/Wt Last Vital Signs Temp 97.6 F 08/30/24 15:59 Pulse 61 08/30/24 17:39 Resp 16 08/30/24 17:39 BP 169/58 08/30/24 17:39 Pulse Ox 94 08/30/24 17:39 O2 Del Method BiPAP 08/30/24 17:39 O2 Flow Rate 3 08/30/24 16:21 FiO2 30 08/30/24 16:34 Weight last 48 hrs Weight 111.584 kg Physical Exam 2 Const: COMMON NORMALS: no acute distress EXAM LIMITATIONS: altered mental status ORIENTATION/CONSCIOUSNESS: Yes awake and Yes confused; not oriented to person, not oriented to place and not oriented to time Eye: COMMON NORMALS: Equal, round and reactive pupils present Neck/C-Spine: COMMON NORMALS: no lymphadenopathy Resp: COMMON NORMALS: normal respiratory effort, No retractions and No use of accessory muscles AUSCULTATION: crackles and wheezes Cardio: COMMON NORMALS: no JVD, regular rate, regular rhythm, S1 normal heart sound present and S2 normal heart sound present RATE: regular rate RHYTHM: regular rhythm HEART SOUNDS: S1 normal heart sound present and S2 normal heart sound present GI: COMMON NORMALS: Normal to inspection, nondistended, normoactive bowel sounds present, Soft to palpation and non-tender Extremity: NARRATIVE EXTREMITY EXAM: 3+ pitting edema up to the bilateral kne es Neuro: OTHER: Patient awakens to her name, but falls back asleep, does not follow commands, she tries to say a few words but falls back asleep, she does spontaneously move upper and lower extremities, does not follow neurologic testing Data 08/30/24 15:35 08/30/24 15:35 Micro: Microbiology 08/30/24 17:03 Blood Culture - Preliminary Blood SPECIMEN COLLECTED 08/30/24 16:58 Blood Culture - Preliminary Blood SPECIMEN COLLECTED A&P Assessment and plan (1) Acute encephalopathy: (2) Acute respiratory failure with hypoxia and hypercapnia: (3) CHF exacerbation: (4) DELORIS (acute kidney injury): Plan Acute encephalopathy -Does have acute CVA, history of dysphagia -Etiology unclear Plan -Will monitor her in the ICU closely -Monitor mentation closely -Neurochecks, NIH stroke scale, aspiration precautions -CT of the head -Obtain a urinalysis Acute hypoxic hypercarbic respiratory failure -Secondary to systolic and diastolic CHF exacerbation -Secondary to COPD Plan -Place Kent catheter -Lasix 40 IV twice daily -Monitor urine output monitor creatinine monitor potassium -Monitor respiratory status closely -Currently on BiPAP -Solu-Medrol 40 mg IV every 8 hours -Given acute encephalopathy, history of multiple hospitalizations, we will cover her with broad-spectrum antibiotic therapy vancomycin, Zosyn, await urine culture, blood cultures, CT imaging chest abdomen pelvis -Follow blood cultures -Respiratory viral pending -DuoNeb -Budesonide DELORIS on CKD -Recent history of dialysis here at [facility], and at [facility] for acute renal failure, hyperkalemia -Monitor urine output monitor creatinine closely -Might require dialysis based on clinical progress Type 2 diabetes mellitus, low-dose sliding scale History of paranoia, depression, agitation -Is on Zyprexa -Lamictal -Risperidone -Wellbutrin History of bradycardia, currently paced rhythm Full code Lovenox for DVT prophylaxis Attestations 2 Medical Necessity Statement*: Patient requires hospitalization for acute encephalopathy, acute hypercarbic respiratory failure, CHF, COPD, inpatient, greater than 2 midnights Diagnoses Acute encephalopathy G93.40 Acute respiratory failure with hypoxia and hypercapnia J96.01; J96.02 CHF exacerbation I50.9 DELORIS (acute kidney injury) N17.9
[2024-08-30 18:07] LABS: Lactic Sepsis W/Reflex 1.5 mmol/L (0.5-2.2)
[2024-08-30 18:32] LABS: Adenovirus Not Detected (NOT DETECT); Chlamydia Pneumoniae Not Detected (NOT DETECT); Coronavirus 229E,HKU1,NL63,OC4 Not Detected (NOT DETECT); Human Metapneumovirus Not Detected (NOT DETECT); Human Rhinovirus/Enterovirus Not Detected (NOT DETECT); Influenza A Not Detected (NOT DETECT); Influenza A H1 Not Detected (NOT DETECT); Influenza A H1-2009 Not Detected (NOT DETECT); Influenza A H3 Not Detected (NOT DETECT); Influenza B Not Detected (NOT DETECT); Mycoplasma Pneumoniae Not Detected (NOT DETECT); Parainfluenza Virus Type 1 Not Detected (NOT DETECT); Parainfluenza Virus Type 2 Not Detected (NOT DETECT); Parainfluenza Virus Type 3 Not Detected (NOT DETECT); Parainfluenza Virus Type 4 Not Detected (NOT DETECT); Respiratory Syncytial Virus A Not Detected (NOT DETECT); Respiratory Syncytial Virus B Not Detected (NOT DETECT); SARS-COV-2 Not Detected (NOT DETECT)
--- NOTE | 2024-08-30 18:33 | ECG_ITS ---
[employer] [facility] [employer] Test Date: 2024-08-30 Pat Name: Hilda Wallace Department: Room: ICU07 Gender: Female Gas Check Pad Maker: : 1960 Requested By: Raad Chung Order Number: [id number] Kyler MD: Clovis Guerrero M.D. Measurements Intervals [place] Rate: 65 P: 35 AR: 206 QRS: -40 QRSD: 133 T: 69 QT: 410 QTc: 429 Interpretive Statements SINUS RHYTHM LEFT AXIS DEVIATION [QRS AXIS < -30] RIGHT BUNDLE BRANCH BLOCK [120+ ms QRS DURATION, UPRIGHT V1, 40+ ms S IN I/aVL/V4/V5/V6] LEFT VENTRICULAR HYPERTROPHY AND ST-T CHANGE [VOLTAGE CRITERIA PLUS ST/T ABNORMALITY] Compared to ECG 08/30/2024 15:58:11 Atrial-paced complex(es) or rhythm no longer present ST (T wave) deviation still present Electronically Signed On 08-31-2024 23:55:58 MANAGER EXCHANGE by Clovis Guerrero M.D. [id number]
[2024-08-30 18:38] LABS: Troponin(5th) Baseline 78 ng/L (0-10)
[2024-08-30 18:39] LABS: C Reactive Protein 8.1 mg/L (0.0-4.9)
[2024-08-30 18:46] LABS: Procalcitonin 0.12 ng/mL (0-0.5)
[2024-08-30 19:12] LABS: Ammonia 18 umol/L (11-51)
[2024-08-30] MEDS: atorvastatin 40 mg Tablet PO (20:42)
[2024-08-30] MEDS: hyDRALAzine 25 mg Tablet PO (20:42)
[2024-08-30] MEDS: OLANZapine 5 mg TABLET PO (20:42)
[2024-08-30] MEDS: lamoTRIgine 100 mg Tablet PO (20:42)
[2024-08-30] MEDS: metoprolol tartrate 25 mg Tablet 37.5 MG PO (20:42)
[2024-08-30] MEDS: pantoprazole 40 mg SDV IVP (20:46)
[2024-08-30] MEDS: enoxaparin 40 mg/0.4 mL Syringe SUBCUT (20:52)
[2024-08-30] MEDS: piperacillin-tazobactam 3.375 GM in sodium chloride 0.9% (plus) 50 ML IV (20:55)
[2024-08-30] MEDS: budesonide 0.5 mg/2 mL Neb INHALATION (21:03)
[2024-08-30 21:06] LABS: Bilirubin Urine Negative (Negative); Blood Urine Negative (Negative); Glucose Urine UA Negative (Normal); Ketones Urine Negative (Negative); Leukocyte Esterase Urine Negative (Negative); Nitrate Urine Negative (Negative); Protein Urine 3+ (Negative); Specific Gravity, Urine 1.015 (1.005-1.030); Urine Appearance Clear (CLEAR); Urine Color Yellow (Yellow); Urobilinogen Urine 0.2 mg/dL (Negative)
[2024-08-30 21:07] LABS: Chol HDL Ratio 3.93 mg/dL (0.0-4.40); Cholesterol 165 mg/dL (0-200); HDL Cholesterol 42 mg/dL (60-100); LDL Cholesterol Calculated 86 mg/dL (50-129); LDL HDL Ratio 2.05 RATIO (0.00-3.22); Thyroid Stimulating Hormone 3.15 uIU/mL (0.27-4.20); Triglycerides 183 mg/dL (0-150)
[2024-08-30 21:11] LABS: Add Urine Microscopic? YES; Bacteria Urine None Seen /hpf; Hyaline Casts Urine 18.61 /lpf; RBC Urine 0-2 /hpf (0-2); Squamous Epithelial Cell Urine 0-5 /hpf (0-5); WBC Urine 0-5 /hpf (0-5)
[2024-08-30 21:11] LABS: Estmated Average Glucose 143; Hemoglobin A1C 6.6 % (4.0-6.0)
--- NOTE | 2024-08-30 21:16 | ECG_ITS ---
[facility] Date: 2024-08-30 Pat Name: Hilda Wallace Department: Room: ICU07 Gender: Female Nurse Epidemiologist: : 1960 Requested By: Raad Chung Order Number: [id number] Reading MD: VETO LATHAM Measurements Intervals [place] Rate: 64 P: 50 DC: 210 QRS: -40 QRSD: 140 T: 76 QT: 403 QTc: 417 Interpretive Statements SINUS RHYTHM WITH FIRST DEGREE AV BLOCK LEFT AXIS DEVIATION [QRS AXIS < -30] RIGHT BUNDLE BRANCH BLOCK [120+ ms QRS DURATION, UPRIGHT V1, 40+ ms S IN I/aVL/V4/V5/V6] LEFT VENTRICULAR HYPERTROPHY AND ST-T CHANGE [VOLTAGE CRITERIA PLUS ST/T ABNORMALITY] Compared to ECG 08/30/2024 18:33:29 First degree AV block now present ST (T wave) deviation still present Electronically Signed On 09-06-2024 23:30:06 CNC CUTTING OPERATOR by VETO LATHAM [id number]
[2024-08-30] MEDS: vancomycin 1,500 MG/300 ML PIGGYBACK 200 MG IV ×2 (21:27→22:58)
[2024-08-30 21:31] LABS: UA Slide Review UA Slide Review Perf
[2024-08-30] MEDS: insulin lispro 100 unit/1 mL 15 UNIT SUBCUT (21:47)
[2024-08-30 21:52] LABS: Troponin 5 6HR 62.07 ng/L (0-10); Troponin 5 6HR Delta -15.93 ng/L (0-12)
[2024-08-30 23:30] LABS: Glucose Point of Care 364 mg/dL (70-110)
--- NOTE | 2024-08-30 23:54 | ECG_ITS ---
[facility] Date: 2024-08-31 Pat Name: Hilda Wallace Department: Room: ICU07 Gender: Female Hospital Food Service Worker: : 1960 Requested By: Raad Chung Order Number: [id number] Kyler MD: VETO LATHAM Measurements Intervals [place] Rate: 59 P: 259 [place]: 250 QRS: -40 QRSD: 142 T: 59 QT: 434 QTc: 433 Interpretive Statements ELECTRONIC ATRIAL PACEMAKER LEFT AXIS DEVIATION [QRS AXIS < -30] INTRAVENTRICULAR CONDUCTION DELAY [130+ ms QRS DURATION] LATERAL MYOCARDIAL INFARCTION , PROBABLY OLD [40+ ms Q WAVE AND/OR ST/T ABNORMALITY IN I/aVL/V5/V6] Compared to ECG 08/30/2024 21:16:41 Intraventricular conduction delay now present Myocardial infarct finding now present Sinus rhythm no longer present First degree AV block no longer present Electronically Signed On 09-06-2024 23:30:02 SOFTWARE TESTING SPECIALIST by VETO LATHAM [id number]
[2024-08-31] VITALS (131 sets, daily range): BP systolic 120–153; BP diastolic 46–97; PULSE 60–71; RESP 0–33; TEMP 36.4–36.6; O2SAT 85–98
[2024-08-31] MEDS: haloperidol inj 5 mg/mL INJ 1 mL 2 MG IVP (02:33)
[2024-08-31] MEDS: morphine 4 mg/mL SDV 1 mL 2 MG IVP (03:12)
[2024-08-31] MEDS: LORazepam 2 mg/mL INJ 1 mL IVP (03:28)
[2024-08-31] MEDS: FUROsemide 10 mg/mL SDV 4mL 40 MG IVP ×2 (03:34→15:09)
[2024-08-31] MEDS: piperacillin-tazobactam 3.375 GM in sodium chloride 0.9% (plus) 50 ML IV ×3 (03:36→18:17)
[2024-08-31 04:26] LABS: Basophils % 0.2 %; Hematocrit 29.3 % (36-47); Lymphocytes # 0.3 10^3/uL (0.8-4.8); Lymphocytes % 3.4 %; Mean Corpuscular HGB Conc 27.6 g/dL (30-55); Mean Corpuscular Hemoglobin 27.2 pg (27-33); Mean Corpuscular Volume 98.3 fl (85-98); Mean Platelet Volume 10.5 fL (7.4-10.4); Monocytes # 0.1 10^3/uL (0.2-0.9); Monocytes % 0.6 %; Neutrophils # 8.39 10^3/uL (1.8-7.7); Neutrophils % 94.8 %; Nucleated Red Blood Cells % 0 %; Platelet Count 218 10^3/cmm (157-399); Red Blood Count 2.98 10^6/uL (3.85-5.65); Red Cell Distribution Width 17.3 % (12.1-15.1); White Blood Count 8.85 10^3/uL (3.29-11.43)
[2024-08-31 04:50] LABS: Alanine Aminotransferase 18 U/L (0-33); Albumin Level 3.2 g/dL (3.5-5.2); Alkaline Phosphatase 129 U/L (35-105); Anion Gap 18.4 (5-19); Aspartate Amino Transferase 12 U/L (0-32); Blood Urea Nitrogen 70 mg/dL (8-23); Calcium 8.7 mg/dL (8.5-10.5); Carbon Dioxide 19 mmol/L (22-29); Chloride 110 mmol/L (98-107); Creatinine Clr Calc Pharmacy 33.1307; Globulin 2.3 g/dL (1.3-4.6); Glomerular Filtration Rate 21.3 mL/min (90-130); Glucose 290 mg/dL (65-115); Osmolality Calculated 325 mOsm/kg (285-295); Phosphorus 4.4 mg/dL (2.5-4.5); Potassium 5.4 mmol/L (3.5-5.1); Sodium 142 mmol/L (136-145); Total Bilirubin 0.3 mg/dL (0.15-1.2); Total Protein 5.5 g/dL (6.6-8.7)
[2024-08-31 05:00] LABS: NT Pro B Type Natriuretic Pept 3257 pg/mL (0-125)
[2024-08-31] MEDS: methylPREDNISolone sod succ 40 mg/mL INJ IVP ×2 (05:14→18:17)
[2024-08-31 07:49] LABS: Glucose Point of Care 335 mg/dL (70-110)
[2024-08-31] MEDS: haloperidol inj 5 mg/mL INJ 1 mL 1 MG IM ×2 (07:55→08:31)
[2024-08-31] MEDS: ipratropium-albuterol 3 mL Neb INHALATION ×4 (08:00→20:23)
[2024-08-31] MEDS: budesonide 0.5 mg/2 mL Neb INHALATION ×2 (08:00→20:23)
[2024-08-31] MEDS: dexmedeTOMIDine 0.9 % NaCL 400 MCG/100 ML PREMIX IV (08:13)
[2024-08-31] MEDS: LORazepam 2 mg/mL INJ 1 mL 1 MG IVP (08:31)
[2024-08-31] MEDS: insulin lispro 100 unit/1 mL SUBCUT ×3 (09:37→18:22)
--- NOTE | 2024-08-31 15:36 | PM.PN ---
Subjective Subjective: Patient was seen this morning, she had episodes of agitation during the night, this morning, she had episodes of agitation requiring Haldol, Precedex, she is calm on BiPAP this morning she does awaken but easily falls back asleep, Vitals/I&O/Wt Last Vital Signs Temp 97.8 F 08/31/24 08:25 Pulse 60 08/31/24 12:30 Resp 20 H 08/31/24 12:30 BP 132/54 08/31/24 12:30 Pulse Ox 95 08/31/24 12:30 O2 Del Method BiPAP 08/31/24 11:00 O2 Flow Rate 3 08/30/24 21:04 FiO2 30 08/31/24 11:05 08/31/24 08/31/24 08/31/24 06:59 14:59 22:59 Intake Total 600 / 650 50 / 50 Output Total 1300 / 1300 Balance -700 / -650 50 / 50 Weight last 48 hrs Weight 126.552 kg Weight 126.824 kg Weight 111.584 kg Physical Exam Const: COMMON NORMALS: no acute distress Eye: COMMON NORMALS: Equal, round and reactive pupils present PUPIL: Yes Equal, round and reactive pupils present Neck/C-Spine: COMMON NORMALS: no JVD Resp: COMMON NORMALS: normal respiratory effort, No retractions and No use of accessory muscles AUSCULTATION: crackles and wheezes Cardio: COMMON NORMALS: no JVD, regular rate, regular rhythm, S1 normal heart sound present and S2 normal heart sound present RATE: regular rate RHYTHM: regular rhythm HEART SOUNDS: S1 normal heart sound present and S2 normal heart sound present GI: COMMON NORMALS: Normal to inspection, nondistended, normoactive bowel sounds present and non-tender Extremity: COMMON NORMALS: no pedal edema Urinary Catheter Management: Kent: Cath Placed During This Visit: yes Reason for Continuing Indwelling Catheter: Accurate Measurement of Urinary Output in Critically Ill Patients Urinary Catheter Date of Insertion: 08/30/24 Urinary Catheter Time of Insertion: 20:25 Data 08/31/24 03:16 08/31/24 03:16 Micro: Microbiology 08/30/24 17:03 Blood Culture - Preliminary Blood SPECIMEN COLLECTED 08/30/24 16:58 Blood Culture - Preliminary Blood SPECIMEN COLLECTED A&P Assessment and plan (1) Acute encephalopathy: (2) Acute respiratory failure with hypoxia and hypercapnia: (3) CHF exacerbation: (4) DELORIS (acute kidney injury): (5) Pneumonia: Plan Acute encephalopathy -Does have acute CVA, history of dysphagia -Etiology unclear Plan -Will monitor her in the ICU closely -Monitor mentation closely -Neurochecks, NIH stroke scale, aspiration precautions -CT of the head no acute findings Acute hypoxic hypercarbic respiratory failure -Secondary to systolic and diastolic CHF exacerbation -Secondary to COPD -Pneumonia, CT showing bilateral dependent atelectasis versus infiltrate, with scattered subcentimeter short axis mediastinal lymph node enlargement, moderate bilateral pleural effusions Plan -Place Kent catheter -Lasix 40 IV twice daily -Monitor urine output monitor creatinine monitor potassium -Monitor respiratory status closely -Currently on BiPAP -Solu-Medrol 40 mg IV every 8 hours -Continue vancomycin, Zosyn -Follow blood cultures -Respiratory viral pending -DuoNeb -Budesonide Pneumonia CHF exacerbation DELORIS on CKD -Recent history of dialysis here at [facility], and at [facility] for acute renal failure, hyperkalemia -Monitor urine output monitor creatinine closely -Might require dialysis based on clinical progress Type 2 diabetes mellitus, low-dose sliding scale History of paranoia, depression, agitation -Is on Zyprexa -Lamictal -Risperidone -Wellbutrin -Cannot take any of those above orally due to acute encephalopathy -Precedex drip -Haldol as needed History of bradycardia, currently paced rhythm Full code Lovenox for DVT prophylaxis Attestations Medical Necessity Statement*: Patient requires hospitalization for acute encephalopathy, acute respiratory failure, CHF exacerbation Diagnoses Acute encephalopathy G93.40 Acute respiratory failure with hypoxia and hypercapnia J96.01; J96.02 CHF exacerbation I50.9 DELORIS (acute kidney injury) N17.9 Pneumonia J18.9
[2024-08-31] MEDS: dexmedeTOMIDine 0.9 % NaCL 400 MCG/100 ML PREMIX 12.66 MCG IV ×2 (15:49→22:57)
[2024-08-31 17:19] LABS: Glucose Point of Care 303 mg/dL (70-110)
[2024-08-31 18:23] LABS: Glucose Point of Care 324 mg/dL (70-110)
[2024-08-31 18:29] LABS: Blood Urea Nitrogen 78 mg/dL (8-23); Calcium 8.9 mg/dL (8.5-10.5); Carbon Dioxide 20 mmol/L (22-29); Chloride 113 mmol/L (98-107); Creatinine Clr Calc Pharmacy 31.7096; Glomerular Filtration Rate 20.3 mL/min (90-130); Glucose 316 mg/dL (65-115); Osmolality Calculated 333 mOsm/kg (285-295); Sodium 144 mmol/L (136-145)
[2024-08-31] MEDS: pantoprazole 40 mg SDV IVP (20:16)
[2024-08-31] MEDS: enoxaparin 40 mg/0.4 mL Syringe SUBCUT (20:16)
--- NOTE | 2024-08-31 20:26 | PC.NURSE ---
PO medications Patient not able to take PO medications at this time due to altered mental status and sedation with precedex drip. Dr. Brown made aware.
[2024-08-31 20:27] LABS: Glucose Point of Care 311 mg/dL (70-110)
[2024-08-31] MEDS: insulin lispro 100 unit/1 mL 10 UNIT SUBCUT (20:43)
[2024-09-01] VITALS (179 sets, daily range): BP systolic 124–169; BP diastolic 54–93; PULSE 60–79; RESP 0–35; TEMP 36.1–36.8; O2SAT 76–100
[2024-09-01] MEDS: piperacillin-tazobactam 3.375 GM in sodium chloride 0.9% (plus) 50 ML IV ×3 (03:10→18:04)
[2024-09-01] MEDS: FUROsemide 10 mg/mL SDV 4mL 40 MG IVP ×4 (03:12→17:50)
[2024-09-01 04:25] LABS: Basophils % 0.1 %; Hematocrit 30.5 % (36-47); Lymphocytes # 0.3 10^3/uL (0.8-4.8); Lymphocytes % 2.9 %; Mean Corpuscular HGB Conc 29.5 g/dL (30-55); Mean Corpuscular Hemoglobin 27.9 pg (27-33); Mean Corpuscular Volume 94.4 fl (85-98); Mean Platelet Volume 10.7 fL (7.4-10.4); Monocytes # 0.2 10^3/uL (0.2-0.9); Neutrophils # 8.92 10^3/uL (1.8-7.7); Neutrophils % 94.3 %; Nucleated Red Blood Cells % 0 %; Platelet Count 229 10^3/cmm (157-399); Red Blood Count 3.23 10^6/uL (3.85-5.65); White Blood Count 9.46 10^3/uL (3.29-11.43)
[2024-09-01] MEDS: methylPREDNISolone sod succ 40 mg/mL INJ IVP ×2 (05:16→17:50)
[2024-09-01] MEDS: haloperidol inj 5 mg/mL INJ 1 mL 1 MG IM (05:26)
[2024-09-01 05:54] LABS: NT Pro B Type Natriuretic Pept 2740 pg/mL (0-125); Procalcitonin 0.12 ng/mL (0-0.5)
[2024-09-01 06:09] LABS: Alanine Aminotransferase 19 U/L (0-33); Albumin Level 3.2 g/dL (3.5-5.2); Alkaline Phosphatase 120 U/L (35-105); Calcium 8.8 mg/dL (8.5-10.5); Carbon Dioxide 18 mmol/L (22-29); Chloride 113 mmol/L (98-107); Creatinine Clr Calc Pharmacy 28.1863; Globulin 2.3 g/dL (1.3-4.6); Glomerular Filtration Rate 17.7 mL/min (90-130); Glucose 306 mg/dL (65-115); Magnesium 2.1 mg/dL (1.7-2.3); Osmolality Calculated 337 mOsm/kg (285-295); Phosphorus 5.7 mg/dL (2.5-4.5); Sodium 145 mmol/L (136-145); Total Bilirubin 0.3 mg/dL (0.15-1.2); Total Protein 5.5 g/dL (6.6-8.7)
[2024-09-01 06:10] LABS: Anion Gap 20.6 (5-19); Aspartate Amino Transferase 14 U/L (0-32)
[2024-09-01 06:13] LABS: Blood Urea Nitrogen 83 mg/dL (8-23); Potassium 6.6 mmol/L (3.5-5.1)
[2024-09-01] MEDS: dexmedeTOMIDine 0.9 % NaCL 400 MCG/100 ML PREMIX 12.66 MCG IV (06:23)
[2024-09-01] MEDS: calcium gluconate 0.9% NaCL 1 GM/50 ML PREMIX IV (06:24)
[2024-09-01] MEDS: insulin regular-human 100 units/1 mL 6 UNIT IVP (06:38)
[2024-09-01] MEDS: clopidogrel 75 mg Tablet PO (07:37)
[2024-09-01] MEDS: lamoTRIgine 100 mg Tablet PO ×2 (07:38→17:50)
[2024-09-01] MEDS: budesonide 0.5 mg/2 mL Neb INHALATION ×2 (08:06→20:01)
[2024-09-01] MEDS: ipratropium-albuterol 3 mL Neb INHALATION ×4 (08:06→20:01)
[2024-09-01] MEDS: metoprolol tartrate 25 mg Tablet 37.5 MG PO ×2 (08:17→17:51)
[2024-09-01] MEDS: allopurinol 300 mg Tablet PO (08:17)
[2024-09-01 08:37] LABS: Glucose Point of Care 374 mg/dL (70-110)
[2024-09-01 08:37] LABS: Glucose Point of Care 324 mg/dL (70-110)
[2024-09-01] MEDS: calcium gluconate 0.1 gm/mL 10% SDV 10mL 1 GM IVP (08:49)
[2024-09-01] MEDS: sodium bicarbonate 8.4% 1 mEq/mL 50mL Syr 50 MEQ IVP (08:49)
[2024-09-01 08:59] LABS: ABG PH Result 7.25 (7.35-7.45); Arterial Blood Gas Hematocrit 28.2 % (37-47); Base Excess ABG -6.7 mmol/L (-2.0-2.0); Blood Gas Allen Test Pos; Blood Gas Operator Identificat CAK; Blood Gas Sample Site Radial, right; Blood Gas Sample Type Arterial; HCO3 ABG 20.2 mmol/L (22-26); Oxygen Device BIPAP; PO2 ABG 92.7 mmHg (80.0-100.0); PO2 FiO2 Ratio Arterial Blood 309
[2024-09-01] MEDS: buPROPion XL (24 HR) 150 mg Tablet PO (09:21)
[2024-09-01] MEDS: OLANZapine 5 mg TABLET PO ×2 (09:22→17:52)
[2024-09-01] MEDS: risperiDONE 1 mg Tablet PO (09:22)
[2024-09-01] MEDS: sodium polystyrene sulfonate 15 gm/60 mL Btl PO (09:22)
--- NOTE | 2024-09-01 09:22 | P.CONIM_ITS ---
Providers/Reason For Consult 2 Consulting Physician/Specialty*: karishma byrne md / telenephrology Reason for Consult*: hyperkalemia, DELORIS on CKD Requesting Physician: Dr Raad Chung Attending Physician: Raad Chung MD Primary Care Provider: Benigno Jennings DO History of Present Illness History of Present Illness Hilda Wallace is a 64 year old female History of anxiety, depression and paranoia, type 2 diabetes, CVA, dysphagia, Warnicke's. She has history of CVA hypothyroidism obstructive sleep apnea hypertension. I met the patient in July 2024 when she had severe bradycardia and hyperkalemia and we did emergent dialysis at which point the patient improved to a creatinine of appears to be what was 3.1 mg/dL.The patient also has significant underlying chronic kidney disease with best creatinine in February 2024 of 1.3 mg/dL however creatinine has been as high as 2.6 mg/dL prior to her July admission. When I met the patient on July 28, 2024 was felt that the patient had an underlying CKD stage 3+ with some proteinuria likely due to obesity, DM , hypertension, and that the patient's been having multiple episodes of acute kidney injury. The patient was transferred to [facility] had a pacemaker placed and I do not have her outpatient labs. The patient presented On August 30, 2024 from her rehab center with confusion lethargy not taking medications decline in her mental status and ability to walk carry conversations she has become more bedbound. She was having increasing shortness of breath with edema. On admission her creatinine was 2.2 mg/dL which is pretty good for her and she was started on furosemide Solu-Medrol and broad-spectrum antibiotics and clindamycin and Zosyn. She had a CT scan on this admission of her head with no acute findings. CT of her lungs showed effusions question of infiltrate. Patient's potassium has been rising and renal was called as the patient is now having nonoliguric acute kidney injury with hyperkalemia. Review of Systems 2 Narrative: The patient is weak and confused not able to give a good history. She is swollen. She is short of breath. The nurses she has been fighting with her BiPAP. She is not eating well. She is urinating. She has edema. Otherwise some unable to obtain a review of systems due to her poor mental status. Medications/Allergies Home Medications Medication Instructions Recorded Confirmed Last Taken Type allopurinol 300 mg tablet 300 mg PO DAILY #90 tabs 05/03/20 08/30/24 08/29/24 Rx clopidogrel 75 mg tablet 75 mg PO DAILY 07/08/20 08/30/24 08/29/24 History metoprolol tartrate 25 mg tablet 37.5 mg PO BID 07/08/20 08/30/24 08/29/24 History acetaminophen 325 mg tablet 650 mg PO Q6H PRN PAIN OR ELEVATED 10/03/21 08/30/24 01/15/24 History (Tylenol) TEMP atorvastatin 40 mg tablet 40 mg PO BEDTIME 10/03/21 08/30/24 08/28/24 History calcium carbonate 500 mg PO Q8H PRN 10/03/21 08/30/24 03/02/24 History gastro-esophageal reflux cetirizine 10 mg tablet 10 mg PO DAILY 10/03/21 08/30/24 08/29/24 History magnesium hydroxide 400 mg/5 mL 30 ml PO DAILY PRN Constipation 10/03/21 08/30/24 Unknown History oral suspension (Milk of Magnesia) omeprazole 20 mg capsule,delayed 20 mg PO DAILY 10/03/21 08/30/24 08/29/24 History release 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 meter,continuous #1 ea 03/12/23 08/30/24 Unknown Rx (Dexcom G7 [employer]) 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 sensor (Dexcom G7 #1 ea 03/12/23 08/30/24 Unknown Rx Sensor device) tramadol 50 mg tablet 50 mg PO Q6H PRN pain #120 tabs 11/18/23 08/30/24 08/25/24 Rx ascorbic acid (vitamin C) 500 mg 500 mg PO DAILY 03/03/24 08/30/24 08/29/24 History tablet (Vitamin C) diphenhydramine HCl 25 mg capsule 25 mg PO Q12H PRN Allergy Symptoms 03/03/24 08/30/24 03/02/24 History (Banophen) fluticasone propionate 50 1 spray intranasal Q12H PRN 03/03/24 08/30/24 Unknown History mcg/actuation nasal ALLERGIES spray,suspension lidocaine 5 % topical patch 1 patch topical Q12H PRN Pain 03/03/24 08/30/24 Unknown History ondansetron HCl 4 mg tablet 4 mg PO Q6H PRN Nausea And Vomiting 03/03/24 08/30/24 Unknown History bupropion HCl 150 mg 24 hr tablet, 150 mg PO QAM 07/16/24 08/30/24 08/29/24 History extended release eszopiclone 3 mg tablet 3 mg PO BEDTIME 07/16/24 08/30/24 08/28/24 History lamotrigine 100 mg tablet 100 mg PO TID 07/16/24 08/30/24 08/30/24 History risperidone 1 mg tablet 1 mg PO QAM 07/16/24 08/30/24 08/29/24 History amlodipine 10 mg tablet 10 mg PO DAILY 08/30/24 08/30/24 08/28/24 History hydralazine 25 mg tablet 25 mg PO Q8H 08/30/24 08/30/24 08/29/24 History insulin aspart U-100 100 unit/mL 15 unit SUBCUT TID 08/30/24 08/30/24 08/30/24 History (3 mL) subcutaneous pen (Novolog FlexPen U-100 Insulin aspart) insulin glargine 100 unit/mL (3 33 unit SUBCUT BID 08/30/24 08/30/24 08/29/24 History mL) subcutaneous pen (Lantus Solostar U-100 Insulin) melatonin 5 mg tablet 10 mg PO BEDTIME 08/30/24 08/30/24 08/28/24 History olanzapine 5 mg tablet 5 mg PO BEDTIME 08/30/24 08/30/24 08/28/24 History Allergies Allergy/AdvReac Type Severity Reaction Status Date / Time clarithromycin [From Biaxin] Allergy nausea Verified 04/05/24 23:11 clindamycin Allergy shock Verified 04/05/24 23:11 diclofenac Allergy swelling Verified 04/05/24 23:11 enalapril Allergy unknown Verified 04/05/24 23:11 ketorolac [From Toradol] Allergy short of Verified 04/05/24 23:11 breath losartan [From Cozaar] Allergy shock Verified 04/05/24 23:11 nifedipine [From Procardia] Allergy hives Verified 04/05/24 23:11 pregabalin [From Lyrica] Allergy unknown Verified 04/05/24 23:11 Sulfa (Sulfonamide Allergy anaphylasix Verified 04/05/24 23:11 Antibiotics) Current Medications Generic Name Dose Route Start Last Admin Trade Name Freq PRN Reason Stop Dose Admin Albuterol/Ipratropium 3 ml 08/30/24 20:19 09/01/24 08:06 Ipratropium-Albuterol 3 Ml Neb INHALATION 3 ml QID.RESPIRATORY JAMAR Administration Allopurinol 300 mg 08/31/24 09:00 09/01/24 08:17 Allopurinol 300 Mg Tablet PO 300 mg DAILY JAMAR Administration Atorvastatin Calcium 40 mg 08/30/24 21:00 08/31/24 20:46 Atorvastatin 40 Mg Tablet PO Not Given BEDTIME JAMAR Budesonide 0.5 mg 08/30/24 20:19 09/01/24 08:06 Budesonide 0.5 Mg/2 Ml Neb INHALATION 0.5 mg BID.RESPIRATORY JAMAR Administration Bupropion HCl 150 mg 08/31/24 06:00 09/01/24 05:00 Bupropion Xl (24 Hr) 150 Mg Tablet PO Not Given QAM JAMAR Clopidogrel Bisulfate 75 mg 08/31/24 09:00 09/01/24 07:37 Clopidogrel 75 Mg Tablet PO 75 mg DAILY JAMAR Administration Haloperidol Lactate 1 mg 08/31/24 07:25 09/01/24 05:26 Haloperidol Inj 5 Mg/Ml Inj 1 Ml IM 1 mg Q4H PRN Administration AGITATION Hydralazine HCl 25 mg 08/30/24 20:19 09/01/24 03:20 Hydralazine 25 Mg Tablet PO Not Given Q8H JAMAR Piperacillin Sod/Tazobactam 50 mls @ 12.5 mls/hr 08/31/24 03:00 09/01/24 03:10 Sod 3.375 gm/ Sodium Chloride IV 12.5 mls/hr Q8H JAMAR Administration Dexmedetomidine/Sodium Chloride 400 mcg in 100 mls @ 0 mls/hr 08/31/24 07:30 09/01/24 06:23 Precedex IV 0.4 mcg/kg/hr .Q0M JAMAR 12.66 mls/hr Administration Protocol Per Protocol Insulin Human Lispro 0 unit 08/31/24 08:00 09/01/24 08:39 Insulin Lispro 100 Unit/1 Ml SUBCUT Not Given [facility] Protocol Lamotrigine 100 mg 08/30/24 21:00 09/01/24 07:38 Lamotrigine 100 Mg Tablet PO 100 mg TID JAMAR Administration Methylprednisolone Sodium Succinate 40 mg 08/31/24 06:00 09/01/24 05:16 Methylprednisolone Sod Succ 40 Mg/Ml Inj IVP 40 mg Q12H JAMAR Administration Metoprolol Tartrate 37.5 mg 08/30/24 20:19 09/01/24 08:17 Metoprolol Tartrate 25 Mg Tablet PO 37.5 mg BID JAMAR Administration Morphine Sulfate 2 mg 08/30/24 20:19 08/31/24 03:12 Morphine 4 Mg/Ml Sdv 1 Ml IVP 2 mg Q4H PRN Administration SEVERE PAIN Pantoprazole Sodium 40 mg 08/30/24 20:19 08/31/24 20:16 Pantoprazole 40 Mg Sdv IVP 40 mg Q24H JAMAR Administration Risperidone 1 mg 08/31/24 06:00 09/01/24 05:00 Risperidone 1 Mg Tablet PO Not Given QAM JAMAR PFSH Acute 2 PFSH: Medical History (Updated 08/30/24 @ 18:18 by Laure Atkinson MD) DELORIS (acute kidney injury) Altered mental status Paranoid Expressive aphasia Anxiety and depression Lives in assisted living facility Rotator cuff tear, right Diabetes mellitus insulin dependent Essential (primary) hypertension Depression due to cerebrovascular accident (CVA) Expressive aphasia Hypomagnesemia Bilateral pneumonia Hyponatremia Hyperkalemia Right humeral fracture Metabolic encephalopathy Resolved Acute delirium Resolved Pneumonia due to COVID-19 virus Resolved Poor social situation Multinodular thyroid Acute embolic stroke Recurrent falls Resolved History of CVA (cerebrovascular accident) Acute hypersomnolence disorder LEROY on CPAP Essential hypertension Wernicke dysphasia Diabetes mellitus with neuropathy Mixed hyperlipidemia Surgical History History of nasal sinusotomy History of cholecystectomy History of tonsillectomy History of repair of rotator cuff History of hysterectomy for indication other than malignancy History of bursectomy Hx of adenoidectomy Status post anal fissurectomy History of colonoscopy Family History Mother CAD (coronary artery disease) Other Asthma Cancer Diabetes Heart disease Hypertension Stroke Social History Smoking and tobacco/nicotine status: former use of tobacco/nicotine Alcohol intake: current Alcohol intake frequency: few times a month Substance/Drug Use: never Vitals/I&O/Wt Last Vital Signs Temp 97.9 F 09/01/24 07:40 Pulse 60 09/01/24 08:11 Resp 18 09/01/24 08:06 BP 148/77 09/01/24 08:05 Pulse Ox 96 09/01/24 08:07 O2 Del Method BiPAP 09/01/24 08:06 O2 Flow Rate 3 08/30/24 21:04 FiO2 30 09/01/24 08:07 08/31/24 09/01/24 09/01/24 22:59 06:59 14:59 Intake Total 267.112 / 326.707 91.517 / 418.224 Output Total 1300 / 1300 Balance 267.112 / 326.707 -1208.483 / -881.776 Weight last 48 hrs Weight 125.6 kg Weight 126.552 kg Weight 126.824 kg Weight 111.584 kg Physical Exam 2 Narrative: Vital signs noted. Patient not using oxygen. HEENT normocephalic atraumatic. Neck is supple Lungs right base dull. No wheezes. Heart regular Abdomen is soft positive bowel sounds. Extremities bilateral edema. Neuro responds to pain follows some simple commands. Confused. No significant rashes. Urinary Catheter Management: Kent: Cath Placed During This Visit: yes Reason for Continuing Indwelling Catheter: Accurate Measurement of Urinary Output in Critically Ill Patients Urinary Catheter Date of Insertion: 08/30/24 Urinary Catheter Time of Insertion: 20:25 Data 09/01/24 03:53 09/01/24 05:08 Micro: Microbiology 08/30/24 17:03 Blood Culture - Preliminary Blood NEGATIVE TO DATE 08/30/24 16:58 Blood Culture - Preliminary Blood NEGATIVE TO DATE A&P Assessment and plan (1) DELORIS (acute kidney injury): 64-year-old lady obesity hypertension diabetes and cancer disease. Patient's renal function has been worsening over the last year with multiple episodes of acute kidney injury. On last admission the patient needed emergent dialysis for symptomatic bradycardia with hyperkalemia and acute kidney injury. And since then her renal function improved. Patient was admitted 2 days ago with shortness of breath confusion lethargy and edema. The patient's creatinine was 2.2 mg/dL which is good for her and now the patient developed acute kidney injury and hyperkalemia. 1. Acute kidney injury-Urinalysis has 3+ protein otherwise is negative. No hydronephrosis on imaging. On the last admission we did an immunological workup having a normal serum immunofixation with normal free kappa lambda light chain ratio normal YI negative ANCA negative antidouble-stranded DNA, negative anti-GBM. As of now concerned that her medications may be affecting her. -repeat urine studies 2. acid - base status- The patient also has mixed hypercapnic respiratory acidosis and metabolic acidosis. check ur ketone and beta-hydroxybuterate 3. hyperkalemia from DELORIS on CKD and from meds. She also is acidotic and hyperglycemic. If we treat her acidosis and her hyperglycemia hopefully her potassium should improve. monitor chemistries q 4 hrs 4. check uric acid on allopurinol and furosemide 5. moderate mitral stenosis per cardiology 6. effusions- her albumin was 3.5 on admission- should not explain edema -normal EF, moderate MS, maybe HFpEF. normal AST/ ALT -i am not sure why she has effusions 7. mixed hypercapneic resp acidosis and AGMA from DELORIS- rx w/ lasix The patient was seen and examined with the aid of a nurse using audiovisual equipment. Plan See above. Consult Attestations 2 Medical Necessity Statement: Acute kidney injury, effusions, hyperkalemia, confusion. Time Spent in Patient Care: Greater than 35 minutes (>than 50% of time spent in counselling and/or direct pt care on unit) . Coding Level of Care Code Acute Code for [facility] Diagnoses DELORIS (acute kidney injury) N17.9
[2024-09-01] MEDS: dextrose 10% 125 ML 750 ML IV (09:26)
[2024-09-01] MEDS: insulin regular-human 100 units/1 mL 10 UNIT IVP (09:27)
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
[2024-09-01 09:45] LABS: Anion Gap 19.9 (5-19); Calcium 10.4 mg/dL (8.5-10.5); Carbon Dioxide 20 mmol/L (22-29); Chloride 110 mmol/L (98-107); Creatinine Clr Calc Pharmacy 30.3046; Glomerular Filtration Rate 19.4 mL/min (90-130); Glucose 339 mg/dL (65-115); Osmolality Calculated 336 mOsm/kg (285-295); Potassium 5.9 mmol/L (3.5-5.1); Sodium 144 mmol/L (136-145)
[2024-09-01 10:01] LABS: Blood Urea Nitrogen 82 mg/dL (8-23)
[2024-09-01 10:06] LABS: Lactate Dehydrogenase 208 U/L (135-214)
[2024-09-01 10:38] LABS: Bilirubin Urine Negative (Negative); Blood Urine Negative (Negative); Glucose Urine UA Negative (Normal); Ketones Urine Negative (Negative); Leukocyte Esterase Urine Negative (Negative); Nitrate Urine Negative (Negative); Protein Urine 2+ (Negative); Urine Appearance Clear (CLEAR); Urine Color Yellow (Yellow); Urobilinogen Urine 0.2 mg/dL (Negative)
[2024-09-01 10:43] LABS: Bacteria Urine None Seen /hpf; Hyaline Casts Urine 9.51 /lpf; Squamous Epithelial Cell Urine 0-5 /hpf (0-5); WBC Urine 0-5 /hpf (0-5)
[2024-09-01 10:46] LABS: Blood Gas Allen Test Pos; Blood Gas Operator Identificat CAK; Blood Gas Sample Site Radial, right; Blood Gas Sample Type Arterial; Ionized Calcium Level - ABG 1.3 mmol/L (1.1-1.4); Oxygen Device NC; Potassium Level - ABG 5.4 mmol/L (3.5-5.0)
[2024-09-01 10:52] LABS: Potassium, Radom Urine 17 mmol/L; Urine Creatinine 25 mg/dL (28-217); Urine Random Chloride 110 mmol/L; Urine Random Sodium 117 mmol/L
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
[2024-09-01 11:05] LABS: UA Slide Review UA Slide Review Perf
[2024-09-01 11:07] LABS: Add Urine Culture? No
[2024-09-01 11:08] LABS: Glucose Point of Care 333 mg/dL (70-110)
[2024-09-01] MEDS: insulin lispro 100 unit/1 mL SUBCUT ×2 (11:58→17:50)
--- NOTE | 2024-09-01 12:28 | XR_ITS ---
WS: [id number] XR chest 1V portable [id number] REASON FOR EXAM: Post PICC insertion FINDINGS: Right arm PICC line placement. The PICC line tip is in the distal SVC and could be used in the curren t position however it was recommended that it be advanced another 2 cm for a more optimal in stable p ositioning if any catheter length remained. XR/XR chest 1V portable [id number] IMPRESSION: Right arm PICC line placement as above. The above findings were discussed with the electronic technologist at 1:13 p.m.
[2024-09-01 12:30] LABS: Anion Gap 18.8 (5-19); Blood Urea Nitrogen 80 mg/dL (8-23); Calcium 9.1 mg/dL (8.5-10.5); Carbon Dioxide 21 mmol/L (22-29); Chloride 107 mmol/L (98-107); Creatinine Clr Calc Pharmacy 31.5673; Glomerular Filtration Rate 20.3 mL/min (90-130); Glucose 337 mg/dL (65-115); Osmolality Calculated 329 mOsm/kg (285-295); Potassium 5.8 mmol/L (3.5-5.1); Sodium 141 mmol/L (136-145)
[2024-09-01] MEDS: dexmedeTOMIDine 0.9 % NaCL 400 MCG/100 ML PREMIX 22.15 MCG IV (12:32)
--- NOTE | 2024-09-01 13:49 | P.PN_ITS ---
Subjective 2 Subjective: Patient was seen this morning, she does awaken, she does follow some commands, but falls back asleep, has episodes of intermittent agitation, nursing staff are able to give her all her medications, has a history of stroke, word salad, at times is only oriented to self at times this is from what I can gather from her prior hospital visits, and what we have gotten from nursing homes and [facility] staff [facility] Vitals/I&O/Wt Last Vital Signs Temp 97 F L 09/01/24 12:30 Pulse 60 09/01/24 12:30 Resp 16 09/01/24 12:30 BP 155/68 09/01/24 12:30 Pulse Ox 99 09/01/24 12:30 O2 Del Method BiPAP 09/01/24 12:30 O2 Flow Rate 3 08/30/24 21:04 FiO2 30 09/01/24 12:30 08/31/24 09/01/24 09/01/24 22:59 06:59 14:59 Intake Total 267.112 / 326.707 91.517 / 418.224 345.983 / 345.983 Output Total 1300 / 1300 Balance 267.112 / 326.707 -1208.483 / -881.776 345.983 / 345.983 Weight last 48 hrs Weight 125.6 kg Weight 126.552 kg Weight 126.824 kg Weight 111.584 kg Physical Exam 2 Const: COMMON NORMALS: no acute distress EXAM LIMITATIONS: altered mental status ORIENTATION/CONSCIOUSNESS: Yes awake and Yes oriented to person; not oriented to place and not oriented to time Eye: COMMON NORMALS: Equal, round and reactive pupils present PUPIL: Yes Equal, round and reactive pupils present Resp: COMMON NORMALS: normal respiratory effort, No retractions and No use of accessory muscles AUSCULTATION: crackles Cardio: COMMON NORMALS: regular rate, regular rhythm, S1 normal heart sound present and S2 normal heart sound present RATE: regular rate RHYTHM: r egular rhythm HEART SOUNDS: S1 normal heart sound present and S2 normal heart sound present GI: COMMON NORMALS: Normal to inspection, nondistended, normoactive bowel sounds present and non-tender Extremity: NARRATIVE EXTREMITY EXAM: 2+ edema Neuro: SENSORIUM/ORIENTATION: Yes oriented to person, No oriented to place and No oriented to time Urinary Catheter Management: Kent: Cath Placed During This Visit: yes Reason for Continuing Indwelling Catheter: Accurate Measurement of Urinary Output in Critically Ill Patients Urinary Catheter Date of Insertion: 08/30/24 Urinary Catheter Time of Insertion: 20:25 Data 09/01/24 03:53 09/01/24 11:55 Micro: Microbiology 08/30/24 17:03 Blood Culture - Preliminary Blood NEGATIVE TO DATE 08/30/24 16:58 Blood Culture - Preliminary Blood NEGATIVE TO DATE A&P Assessment and plan (1) Acute encephalopathy: (2) Acute respiratory failure with hypoxia and hypercapnia: (3) CHF exacerbation: (4) DELORIS (acute kidney injury): (5) Pneumonia: Plan Acute encephalopathy -Does have acute CVA, history of dysphagia -Etiology unclear, possibly medication withdrawal, as patient has not been taking her medications as per the prison, here due to encephalopathy she has not received her psychotropic medications, she is on multiple psychotropic medications such as Lamictal, eszopiclone, risperidone -At baseline she has word salad, dysphagia, oriented to herself Plan -Will monitor her in the ICU closely -Monitor mentation closely -Neurochecks, NIH stroke scale, aspiration precautions -CT of the head no acute findings ? She should get all her psychiatric medications orally today as her mentation has improved Severe hyperkalemia ? Potassium 6.6, history of hyperkalemia requiring dialysis ? Will give her 10 units insulin, D50, calcium gluconate, Lasix, sodium bicarb ? With DELORIS creatinine 2.4 ?monitor serial BMP every 6 hours ? Nephrology consulted, which patient might require dialysis based on clinical progress Acute hypoxic hypercarbic respiratory failure -Secondary to systolic and diastolic CHF exacerbation -Secondary to COPD -Pneumonia, CT showing bilateral dependent atelectasis versus infiltrate, with scattered subcentimeter short axis mediastinal lymph node enlargement, moderate bilateral pleural effusions Plan -Place Kent catheter -Lasix 40 IV twice daily -Monitor urine output monitor creatinine monitor potassium -Monitor respiratory status closely -Currently on BiPAP -Solu-Medrol 40 mg IV every 8 hours -Continue vancomycin, Zosyn -Follow blood cultures -Respiratory viral pending -DuoNeb -Budesonide Pneumonia CHF exacerbation DELORIS on CKD -Recent history of dialysis here at [facility], and at [facility] for acute renal failure, hyperkalemia -Monitor urine output monitor creatinine closely -Might require dialysis based on clinical progress, nephrology consulted Type 2 diabetes mellitus, low-dose sliding scale History of paranoia, depression, agitation -Is on Zyprexa -Lamictal -Risperidone -Wellbutrin -Cannot take any of those above orally due to acute encephalopathy -Precedex drip -Haldol as needed History of bradycardia, currently paced rhythm Full code Lovenox for DVT prophylaxis Treated severe hyperkalemia, with insulin/D50/calcium gluconate/Lasix/sodium bicarb, checking BMP every 6 hours, potassium Dr. 5.8, nephrology consulted, receiving IV antibiotics, IV diuresis, Precedex drip for agitation Attestations 2 Medical Necessity Statement*: Patient requires hospitalization for acute encephalopathy, acute respiratory failure, DELORIS, severe hyperkalemia, respiratory failure CHF, pneumonia, Diagnoses Acute encephalopathy G93.40 Acute respiratory failure with hypoxia and hypercapnia J96.01; J96.02 CHF exacerbation I50.9 DELORIS (acute kidney injury) N17.9 Pneumonia J18.9
--- NOTE | 2024-09-01 13:54 | PICC.NOTE ---
Double lumen PICC placed to right basilic vein. Referred to vascular access nurse for PICC placement due to poor access. Risks and benefits discussed and informed consent obtained from pt guardian, Brenton Hsu, via phone. Right arm assessed with right basilic vein measuring 3.2 mm, straight, and apparent best choice for placement. Using sterile technique and MST, right basilic vein accessed x 1 stick. Mid-arm circumference measured 10 cm from right AC 35 cm. Trimmed cath 42 cm with 0 cm external length noted. CXR shows tip in distal SVC, in good position for use in current position per radiologist. Line secured with stat-lock. Insertion site covered with Secureport IV and TSM. Report given to bedside nurse, MILA Blair.
--- NOTE | 2024-09-01 14:11 | PC.SOCIAL ---
IMM Updated Updated pt's guardian, Brenton Hsu on IMM. No questions voiced. Provided pt a copy. Initialed, dated, & timed a copy & placed in chart.
[2024-09-01 14:40] LABS: Glucose Point of Care 348 mg/dL (70-110)
[2024-09-01 16:26] LABS: Glucose Point of Care 322 mg/dL (70-110)
--- NOTE | 2024-09-01 18:17 | PC.SLP ---
FURNACE COOLER attempted assessment, however, pt was not able to cooperate due to agitation. FURNACE COOLER will follow-up with the pt tomorrow.
[2024-09-01 18:18] LABS: Blood Urea Nitrogen 24 mg/dL (8-23); Carbon Dioxide 21 mmol/L (22-29); Chloride 106 mmol/L (98-107); Creatinine Clr Calc Pharmacy 50.5076; Glucose 105 mg/dL (65-115); Osmolality Calculated 294 mOsm/kg (285-295); Sodium 140 mmol/L (136-145)
[2024-09-01 18:21] LABS: Anion Gap 17.6 (5-19); Potassium 4.6 mmol/L (3.5-5.1)
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
[2024-09-01] MEDS: dexmedeTOMIDine 0.9 % NaCL 400 MCG/100 ML PREMIX 15.82 MCG IV (19:10)
[2024-09-01] MEDS: pantoprazole 40 mg SDV IVP (20:10)
[2024-09-01] MEDS: enoxaparin 30 mg/0.3 mL Syringe SUBCUT (20:13)
[2024-09-01 21:32] LABS: Glucose Point of Care 302 mg/dL (70-110)
[2024-09-01] MEDS: insulin lispro 100 unit/1 mL 15 UNIT SUBCUT (21:38)
--- NOTE | 2024-09-01 21:55 | PC.NURSE ---
Addendum entered by MARTIN Andersen 09/02/24 05:49: Also held morning PO medications. Original Note: Agitation Attempted to give patient evening PO medications in thickened water due to dysphagia level 4 diet. Patient took one swallow and refused any more. When this nurse asked if she wanted another swallow, patient slapped the cup out of this nurse's hand and yelled, No. Contacted Dr. Brown regarding patient's refusal of medications. Received orders to hold PO medications.
[2024-09-02] VITALS (136 sets, daily range): BP systolic 112–199; BP diastolic 55–107; PULSE 60–89; RESP 13–33; TEMP 36–36.9; O2SAT 87–100
[2024-09-02] MEDS: dexmedeTOMIDine 0.9 % NaCL 400 MCG/100 ML PREMIX 22.15 MCG IV ×2 (00:14→10:18)
[2024-09-02 00:45] LABS: Anion Gap 17.5 (5-19); Calcium 8.7 mg/dL (8.5-10.5); Carbon Dioxide 23 mmol/L (22-29); Chloride 109 mmol/L (98-107); Glomerular Filtration Rate 18.5 mL/min (90-130); Glucose 229 mg/dL (65-115); Osmolality Calculated 330 mOsm/kg (285-295); Potassium 5.5 mmol/L (3.5-5.1); Sodium 144 mmol/L (136-145)
[2024-09-02 00:53] LABS: Blood Urea Nitrogen 83 mg/dL (8-23)
[2024-09-02] MEDS: sodium polystyrene sulfonate 15 gm/60 mL Btl PO ×4 (01:08→21:24)
[2024-09-02] MEDS: piperacillin-tazobactam 3.375 GM in sodium chloride 0.9% (plus) 50 ML IV ×3 (03:09→17:21)
[2024-09-02 03:20] LABS: Base Excess VBG -2.8 mmol/L (-3.0-3.0); Blood Gas Sample Type Venous; HCO3 VBG 23.9 mmol/L (24-28); Oxygen Device NC; PCO2 VBG 50.2 mmHg (41-51); PO2 VBG 90.3 mmHg (25-40); Venous Blood Gas Hematocrit 28.9 % (37-47); pH VBG 7.29 (7.32-7.42)
[2024-09-02 03:36] LABS: Basophils % 0.1 %; Hematocrit 30.1 % (36-47); Lymphocytes # 0.3 10^3/uL (0.8-4.8); Lymphocytes % 2.5 %; Mean Corpuscular HGB Conc 29.6 g/dL (30-55); Mean Corpuscular Hemoglobin 27.6 pg (27-33); Mean Corpuscular Volume 93.2 fl (85-98); Mean Platelet Volume 10.5 fL (7.4-10.4); Monocytes # 0.4 10^3/uL (0.2-0.9); Monocytes % 3.4 %; Neutrophils # 10.58 10^3/uL (1.8-7.7); Neutrophils % 93.5 %; Nucleated Red Blood Cells % 0 %; Platelet Count 214 10^3/cmm (157-399); Red Blood Count 3.23 10^6/uL (3.85-5.65); Red Cell Distribution Width 16.9 % (12.1-15.1); White Blood Count 11.32 10^3/uL (3.29-11.43)
[2024-09-02] MEDS: dexmedeTOMIDine 0.9 % NaCL 400 MCG/100 ML PREMIX 25.31 MCG IV (03:43)
[2024-09-02 03:57] LABS: Alanine Aminotransferase 17 U/L (0-33); Albumin Level 3.2 g/dL (3.5-5.2); Alkaline Phosphatase 114 U/L (35-105); Calcium 8.5 mg/dL (8.5-10.5); Carbon Dioxide 25 mmol/L (22-29); Chloride 111 mmol/L (98-107); Creatinine Clr Calc Pharmacy 28.0598; Globulin 2.6 g/dL (1.3-4.6); Glomerular Filtration Rate 17.7 mL/min (90-130); Glucose 235 mg/dL (65-115); Osmolality Calculated 334 mOsm/kg (285-295); Phosphorus 5.9 mg/dL (2.5-4.5); Sodium 145 mmol/L (136-145); Total Bilirubin 0.3 mg/dL (0.15-1.2); Total Protein 5.8 g/dL (6.6-8.7)
[2024-09-02 04:02] LABS: Anion Gap 15.2 (5-19); Aspartate Amino Transferase 14 U/L (0-32); Potassium 6.2 mmol/L (3.5-5.1)
[2024-09-02 04:09] LABS: Procalcitonin 0.13 ng/mL (0-0.5)
[2024-09-02 04:12] LABS: Blood Urea Nitrogen 86 mg/dL (8-23)
[2024-09-02 04:17] LABS: 25 Hydroxy Vitamin D 7 ng/mL (30-100); NT Pro B Type Natriuretic Pept 2910 pg/mL (0-125)
[2024-09-02] MEDS: FUROsemide 10 mg/mL SDV 4mL 40 MG IVP (04:46)
[2024-09-02] MEDS: calcium gluconate 0.9% NaCL 1 GM/50 ML PREMIX IV (04:46)
[2024-09-02] MEDS: methylPREDNISolone sod succ 40 mg/mL INJ IVP (06:16)
[2024-09-02] MEDS: dexmedeTOMIDine 0.9 % NaCL 400 MCG/100 ML PREMIX 31.64 MCG IV ×2 (06:33→13:52)
[2024-09-02 07:22] LABS: Glucose Point of Care 282 mg/dL (70-110)
[2024-09-02] MEDS: budesonide 0.5 mg/2 mL Neb INHALATION ×2 (08:20→21:32)
[2024-09-02] MEDS: ipratropium-albuterol 3 mL Neb INHALATION ×3 (08:20→21:32)
[2024-09-02] MEDS: calcium gluconate 0.1 gm/mL 10% SDV 10mL 1 GM IVP (08:36)
[2024-09-02] MEDS: insulin regular-human 100 units/1 mL 10 UNIT IVP (08:42)
[2024-09-02] MEDS: metoprolol tartrate 25 mg Tablet 37.5 MG PO ×2 (08:44→17:21)
[2024-09-02] MEDS: clopidogrel 75 mg Tablet PO (08:44)
[2024-09-02] MEDS: lamoTRIgine 100 mg Tablet PO ×3 (08:44→21:23)
[2024-09-02] MEDS: metOLazone 5 MG Tablet PO (08:44)
[2024-09-02] MEDS: OLANZapine 5 mg TABLET PO ×2 (08:44→17:21)
[2024-09-02] MEDS: allopurinol 300 mg Tablet PO (08:44)
[2024-09-02] MEDS: insulin lispro 100 unit/1 mL SUBCUT ×4 (09:04→21:24)
--- NOTE | 2024-09-02 10:03 | P.PN_ITS ---
Subjective 2 Subjective: more awake. excellent UOP. no edema. bp elevated. no sob or cp or dawkins. Medications: Reviewed: Yes Medication Review Details: Current Medications Acetaminophen (Acetaminophen 325 Mg Tablet) 650 mg PO Q6H PRN PRN Reason: Mild/Mod Pain Or Temp >/= 101 Albuterol/Ipratropium (Ipratropium-Albuterol 3 Ml Neb) 3 ml INHALATION QID.RESPIRATORY JAMAR Last Admin: 09/02/24 08:20 Dose: 3 ml Allopurinol (Allopurinol 300 Mg Tablet) 300 mg PO DAILY JAMAR Last Admin: 09/02/24 08:44 Dose: 300 mg Atorvastatin Calcium (Atorvastatin 40 Mg Tablet) 40 mg PO BEDTIME JAMAR Last Admin: 09/01/24 22:09 Dose: Not Given Budesonide (Budesonide 0.5 Mg/2 Ml Neb) 0.5 mg INHALATION BID.RESPIRATORY [facility] Last Admin: 09/02/24 08:20 Dose: 0.5 mg Bupropion HCl (Bupropion Xl (24 Hr) 150 Mg Tablet) 150 mg PO QAM [facility] Last Admin: 09/02/24 05:49 Dose: Not Given Clopidogrel Bisulfate (Clopidogrel 75 Mg Tablet) 75 mg PO DAILY [facility] Last Admin: 09/02/24 08:44 Dose: 75 mg Enoxaparin Sodium (Enoxaparin 30 Mg/0.3 Ml Syringe) 30 mg SUBCUT Q24H [facility] Last Admin: 09/01/24 20:13 Dose: 30 mg Furosemide (Furosemide 10 Mg/Ml Sdv 4ml) 40 mg IVP Q12H JAMAR Last Admin: 09/02/24 04:46 Dose: 40 mg Glucagon (Glucagon 1 Mg/Ml Kit 1 Ml) 1 mg IM ONCE PRN; Protocol PRN Reason: Adult Acute Hypoglycemia Nursing Prot. Haloperidol Lactate (Haloperidol Inj 5 Mg/Ml Inj 1 Ml) 1 mg IM Q4H PRN PRN Reason: AGITATION Last Admin: 09/01/24 05:26 Dose: 1 mg Hydralazine HCl (Hydralazine 25 Mg Tablet) 25 mg PO Q8H [facility] Last Admin: 09/02/24 05:49 Dose: Not Given Dextrose (D5w) 500 mls @ 0 mls/hr IV ONCE PRN; Protocol PRN Reason: Adult Acute Hypoglycemia Prot Dextrose (D10w) 125 mls @ 750 mls/hr IV PRN PRN; Protocol PRN Reason: Adult Acute Hypoglycemia Nursing Protocol Last Infusion: 09/01/24 09:56 Dose: Infused Dextrose (D10w) 250 mls @ 1,000 mls/hr IV PRN PRN; Protocol PRN Reason: Adult Acute Hypoglycemia Nursing Protocol Piperacillin Sod/Tazobactam (Sod 3.375 gm/ Sodium Chloride) 50 mls @ 12.5 mls/hr IV Q8H JAMAR Last Infusion: 09/02/24 07:14 Dose: Infused Dexmedetomidine/Sodium Chloride (Precedex) 400 mcg in 100 mls @ 0 mls/hr IV .Q0M JAMAR; Protocol Last Titration: 09/02/24 08:22 Dose: 0.7 mcg/kg/hr, 22.15 mls/hr Dextrose (D10w) 125 mls @ 750 mls/hr IV PRN PRN PRN Reason: HYPOGLYCEMIA Insulin Human Lispro (Insulin Lispro 100 Unit/1 Ml) 0 unit SUBCUT AC&BEDTIME [facility]; Protocol Last Admin: 09/02/24 09:04 Dose: 8 unit Lamotrigine (Lamotrigine 100 Mg Tablet) 100 mg PO TID [facility] Last Admin: 09/02/24 08:44 Dose: 100 mg Methylprednisolone Sodium Succinate (Methylprednisolone Sod Succ 40 Mg/Ml Inj) 40 mg IVP Q12H [facility] Last Admin: 09/02/24 06:16 Dose: 40 mg Metoprolol Tartrate (Metoprolol Tartrate 25 Mg Tablet) 37.5 mg PO BID [facility] Last Admin: 09/02/24 08:44 Dose: 37.5 mg Morphine Sulfate (Morphine 4 Mg/Ml Sdv 1 Ml) 2 mg IVP Q4H PRN PRN Reason: SEVERE PAIN Last Admin: 08/31/24 03:12 Dose: 2 mg Non-Formulary Medication (Eszopiclone) 3 mg PO BEDTIME JAMAR Olanzapine (Olanzapine 5 Mg Tablet) 5 mg PO BID [facility] Last Admin: 09/02/24 08:44 Dose: 5 mg Ondansetron HCl (Ondansetron 2 Mg/Ml Sdv 2 Ml) 4 mg IVP Q8H PRN PRN Reason: vomiting, or N/V if npo Pantoprazole Sodium (Pantoprazole 40 Mg Sdv) 40 mg IVP Q24H [facility] Last Admin: 09/01/24 20:10 Dose: 40 mg Risperidone (Risperidone 1 Mg Tablet) 1 mg PO QAM [facility] Last Admin: 09/02/24 05:50 Dose: Not Given Sodium Polystyrene Sulfonate (Sodium Polystyrene Sulfonate 15 Gm/60 Ml Btl) 15 gm PO Q6H [facility] Last Admin: 09/02/24 08:44 Dose: 15 gm Vitals/I&O/Wt Last Vital Signs Temp 96.8 F L 09/02/24 05:10 Pulse 61 09/02/24 09:30 Resp 20 H 09/02/24 09:30 BP 174/85 09/02/24 09:30 Pulse Ox 97 09/02/24 09:30 O2 Del Method Nasal Cannula 09/02/24 09:30 O2 Flow Rate 3 09/02/24 09:30 FiO2 30 09/01/24 20:00 09/01/24 09/02/24 09/02/24 22:59 06:59 14:59 Intake Total 168.831 / 514.814 323.048 / 837.862 102.888 / 102.888 Output Total 1850 / 1850 1750 / 3600 1100 / 1100 Balance -1681.169 / -1335.186 -1426.952 / -2762.138 -997.112 / -997.112 Weight last 48 hrs Weight 123.513 kg Weight 125.6 kg Physical Exam 2 Narrative: Vital signs noted. Patient obese, using nasal cannula oxygen in bed. HEENT normocephalic atraumatic. Neck is supple Lungs right base dull. left clear Heart regular Abdomen is soft positive bowel sounds. Extremities bilateral much improved edema. Neuro - more awake, interactive, responsive, moves No significant rashes. Urinary Catheter Management: Kent: Cath Placed During This Visit: yes Reason for Continuing Indwelling Catheter: Accurate Measurement of Urinary Output in Critically Ill Patients Urinary Catheter Date of Insertion: 08/30/24 Urinary Catheter Time of Insertion: 20:25 Data 09/02/24 03:10 09/02/24 03:10 A&P Assessment and plan (1) CAROLYN (acute kidney injury): 64-year-old lady obesity hypertension diabetes and cancer disease. Patient's renal function has been worsening over the last year with multiple episodes of acute kidney injury. On last admission the patient needed emergent dialysis for symptomatic bradycardia with hyperkalemia and acute kidney injury. And since then her renal function improved. Patient was admitted 2 days ago with shortness of breath confusion lethargy and edema. The patient's creatinine was 2.2 mg/dL which is good for her and now the patient developed acute kidney injury and hyperkalemia. 1. Acute kidney injury-Urinalysis has 3+ protein otherwise is negative. No hydronephrosis on imaging. On the last admission we did an immunological workup having a normal serum immunofixation with normal free kappa lambda light chain ratio normal YI negative ANCA negative antidouble-stranded DNA, negative anti-GBM. As of now concerned that her medications may be affecting her. -repeat urine studies shows 2+ ur protein, elevated ur na- on furosemide -renal fxn and k improved to cr of 1.5 and k 4.6. now recurrent CAROLYN w/ hyperkalemia- rx k medically -rx glucose -d/c lasix 2. acid - base status- The patient also has mixed hypercapnic respiratory acidosis and metabolic acidosis. ur ketone negative 3. hyperkalemia from CAROLYN on CKD and from meds. She also is acidotic and hyperglycemic. If we treat her acidosis and her hyperglycemia hopefully her potassium should improve again monitor chemistries q 6 hrs -steroids may be effecting her k -check repeat abg w/ electrolytes 4. check uric acid on allopurinol and furosemide 5. moderate mitral stenosis per cardiology 6. meds reviewed The patient was seen and examined with the aid of a nurse using audiovisual equipment. Plan See above. Attestations 2 Medical Necessity Statement*: carolyn, hyperkalemia Time Spent in Patient Care: 16 - 35 minutes (>than 50% of time sp ent in counselling and/or direct pt care on unit) . Coding Level of Care Code Acute Code for [facility] Diagnoses CAROLYN (acute kidney injury) N17.9
[2024-09-02] MEDS: sodium bicarbonate 150 MEQ in dextrose 5% 1,000 ML 100 MEQ IV ×2 (10:59→23:17)
[2024-09-02 11:23] LABS: Glucose Point of Care 266 mg/dL (70-110)
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
--- NOTE | 2024-09-02 11:43 | PC.RESP ---
Pt combative - unable to get abg at this time
[2024-09-02] MEDS: hyDRALAzine 25 mg Tablet PO ×2 (12:02→21:23)
[2024-09-02 12:52] LABS: Anion Gap 18.3 (5-19); Calcium 7.8 mg/dL (8.5-10.5); Carbon Dioxide 22 mmol/L (22-29); Chloride 115 mmol/L (98-107); Creatinine Clr Calc Pharmacy 35.7202; Glomerular Filtration Rate 23.7 mL/min (90-130); Glucose 285 mg/dL (65-115); Osmolality Calculated 345 mOsm/kg (285-295); Potassium 5.3 mmol/L (3.5-5.1); Sodium 150 mmol/L (136-145)
[2024-09-02 12:57] LABS: Blood Urea Nitrogen 81 mg/dL (8-23)
[2024-09-02 13:40] LABS: ABG PCO2 46.7 mmHg (35-45); ABG PH Result 7.32 (7.35-7.45); Alveolar-Arterial Oxygen Gradi 12.6 mmHg (5-10); Arterial Blood Gas Hematocrit 30.6 % (37-47); Base Excess ABG -2.1 mmol/L (-2.0-2.0); Blood Gas Allen Test Pos; Blood Gas Operator Identificat GD; Blood Gas Sample Site Radial, right; Blood Gas Sample Type Arterial; Carboxyhemoglobin 1.4 %THgb (0.4-20.1); HCO3 ABG 24.1 mmol/L (22-26); HGB O2 Sat 93.3 % (95-100); Ionized Calcium Level - ABG 1.2 mmol/L (1.1-1.4); Methemoglobin 1.1 % (0.4-1.5); Oxygen Device NC; Oxygen Saturation ABG 95.7; PO2 ABG 74.7 mmHg (80.0-100.0); PO2 FiO2 Ratio Arterial Blood 233; Potassium Level - ABG 5.3 mmol/L (3.5-5.0)
--- NOTE | 2024-09-02 13:57 | P.PN_ITS ---
Subjective 2 Subjective: Patient was seen this morning, she awakens, has word salad, she monitors a few words, pupils equal round reactive to light, she withdraws from pain, does not follow commands at times, afebrile overnight, Vitals/I&O/Wt Last Vital Signs Temp 96.8 F L 09/02/24 05:10 Pulse 66 09/02/24 12:25 Resp 22 H 09/02/24 12:25 BP 128/55 09/02/24 12:25 Pulse Ox 98 09/02/24 12:25 O2 Del Method Nasal Cannula 09/02/24 12:25 O2 Flow Rate 3 09/02/24 12:25 FiO2 30 09/01/24 20:00 09/01/24 09/02/24 09/02/24 22:59 06:59 14:59 Intake Total 168.831 / 514.814 323.048 / 837.862 238.625 / 238.625 Output Total 1850 / 1850 1750 / 3600 1100 / 1100 Balance -1681.169 / -1335.186 -1426.952 / -2762.138 -861.375 / -861.375 Weight last 48 hrs Weight 123.513 kg Weight 125.6 kg Physical Exam 2 Const: COMMON NORMALS: no acute distress Eye: COMMON NORMALS: Equal, round and reactive pupils present PUPIL: Yes Equal, round and reactive pupils present Resp: COMMON NORMALS: normal respiratory effort, No retractions, No use of accessory muscles and clear to auscultation bilaterally AUSCULTATION: clear to auscultation bilaterally Cardio: COMMON NORMALS: regular rate, regular rhythm, S1 normal heart sound present and S2 normal heart sound present RATE: regular rate RHYTHM: r egular rhythm HEART SOUNDS: S1 normal heart sound present and S2 normal heart sound present GI: COMMON NORMALS: Normal to inspection, nondistended, normoactive bowel sounds present and non-tender Extremity: NARRATIVE EXTREMITY EXAM: 1+ edema Urinary Catheter Management: Kent: Cath Placed During This Visit: yes Reason for Continuing Indwelling Catheter: Accurate Measurement of Urinary Output in Critically Ill Patients Urinary Catheter Date of Insertion: 08/30/24 Urinary Catheter Time of Insertion: 20:25 Data 09/02/24 03:10 09/02/24 12:05 A&P Assessment and plan (1) Acute encephalopathy: (2) Acute respiratory failure with hypoxia and hypercapnia: (3) CHF exacerbation: (4) DELORIS (acute kidney injury): (5) Pneumonia: Plan Acute encephalopathy -Does have acute CVA, history of dysphagia -Etiology unclear, possibly medication withdrawal, as patient has not been taking her medications as per the assisted, here due to encephalopathy she has not received her psychotropic medications, she is on multiple psychotropic medications such as Lamictal, eszopiclone, risperidone -At baseline she has word salad, dysphagia, oriented to herself Plan -Will monitor her in the ICU closely -Monitor mentation closely -Neurochecks, NIH stroke scale, aspiration precautions -CT of the head no acute findings ? She should get all her psychiatric medications orally today as her mentation has improved Severe persistent hyperkalemia ? history of hyperkalemia requiring dialysis ? 6.2 this morning Will give her 10 units insulin, D50, calcium gluconate, Lasix, sodium bicarb ? With DELORIS creatinine 2.1 ?monitor serial BMP ? Nephrology consulted, which patient might require dialysis based on clinical progress Acute hypoxic hypercarbic respiratory failure -Secondary to systolic and diastolic CHF exacerbation -Secondary to COPD -Pneumonia, CT showing bilateral dependent atelectasis versus infiltrate, with scattered subcentimeter short axis mediastinal lymph node enlargement, moderate bilateral pleural effusions Plan -Place Kent catheter -Lasix 40 IV twice daily, has 1+ pitting edema -Monitor urine output monitor creatinine monitor potassium -Monitor respiratory status closely -Currently on BiPAP -Solu-Medrol 40 mg IV every 24 -Continue vancomycin, Zosyn -Follow blood cultures -Respiratory viral pending -DuoNeb -Budesonide Pneumonia CHF exacerbation DELORIS on CKD -Recent history of dialysis here at [facility], and at [facility] for acute renal failure, hyperkalemia -Monitor urine output monitor creatinine closely -Might require dialysis based on clinical progress, nephrology consulted Type 2 diabetes mellitus, low-dose sliding scale History of paranoia, depression, agitation -Is on Zyprexa -Lamictal -Risperidone -Wellbutrin -Cannot take any of those above orally due to acute encephalopathy -Precedex drip -Haldol as needed History of bradycardia, currently paced rhythm Full code Lovenox for DVT prophylaxis Plan for today treat hyperkalemia, respiratory failure, monitor mentation Attestations 2 Medical Necessity Statement*: Patient requires hospitalization for respiratory failure, hyperkalemia, encephalopathy Diagnoses Acute encephalopathy G93.40 Acute respiratory failure with hypoxia and hypercapnia J96.01; J96.02 CHF exacerbation I50.9 DELORIS (acute kidney injury) N17.9 Pneumonia J18.9
--- NOTE | 2024-09-02 14:02 | PC.NURSE ---
Dr. Chung telephone order to give AM meds wellbutrin and risperdal. See MAR.
[2024-09-02] MEDS: risperiDONE 1 mg Tablet PO (14:06)
[2024-09-02] MEDS: buPROPion XL (24 HR) 150 mg Tablet PO (14:06)
[2024-09-02] MEDS: dexmedeTOMIDine 0.9 % NaCL 400 MCG/100 ML PREMIX 34.8 MCG IV (16:32)
[2024-09-02 17:11] LABS: Glucose Point of Care 398 mg/dL (70-110)
[2024-09-02] MEDS: haloperidol inj 5 mg/mL INJ 1 mL 1 MG IM (18:01)
--- NOTE | 2024-09-02 18:07 | PC.NURSE ---
Patient remains aggressive verbally and physically with staff. See MAR for precedex titration. Patient denies pain throughout shift, continues to yell and curse. See charted vitals, they were difficult to obtain due to patient agitation. Bed alarm set, rails up for patient safety, patient pulls at rails and cursing at persons not seen by this nurse.
[2024-09-02] MEDS: morphine 4 mg/mL SDV 1 mL 2 MG IVP (18:16)
--- NOTE | 2024-09-02 18:21 | PC.NURSE ---
Patient began screaming loudly and hitting her left leg against the bed forcefully, screaming that she was in pain. Patient asked to stop harming herself, Pillows placed for protection. Patient asked where her pain was and she responded with many curse words. Pain rated 10 on scale due to patient behaviour. See MAR for morphine administration.
[2024-09-02] MEDS: dexmedeTOMIDine 0.9 % NaCL 400 MCG/100 ML PREMIX 28.47 MCG IV (20:04)
[2024-09-02 21:10] LABS: Glucose Point of Care 357 mg/dL (70-110)
[2024-09-02] MEDS: atorvastatin 40 mg Tablet PO (21:23)
[2024-09-02] MEDS: pantoprazole 40 mg SDV IVP (21:24)
[2024-09-02] MEDS: enoxaparin 30 mg/0.3 mL Syringe SUBCUT (21:24)
[2024-09-02] MEDS: sodium bicarbonate 8.4% 1 mEq/mL 50mL Syr 150 MEQ (23:19)
[2024-09-03] VITALS (34 sets, daily range): BP systolic 129–165; BP diastolic 62–102; PULSE 60–65; RESP 13–29; TEMP 35.6–36.7; O2SAT 91–98; BMI 45.1
[2024-09-03] MEDS: dexmedeTOMIDine 0.9 % NaCL 400 MCG/100 ML PREMIX 28.47 MCG IV (00:04)
[2024-09-03] MEDS: sodium polystyrene sulfonate 15 gm/60 mL Btl PO ×4 (02:35→21:07)
[2024-09-03] MEDS: piperacillin-tazobactam 3.375 GM in sodium chloride 0.9% (plus) 50 ML IV ×3 (02:36→18:38)
[2024-09-03] MEDS: haloperidol inj 5 mg/mL INJ 1 mL 1 MG IM (02:36)
[2024-09-03] MEDS: dexmedeTOMIDine 0.9 % NaCL 400 MCG/100 ML PREMIX 25.31 MCG IV ×2 (03:46→08:11)
[2024-09-03 04:39] LABS: Basophils % 0.1 %; Eosinophils # 0.1 10^3/uL (0.0-0.8); Eosinophils % 1.4 %; Hematocrit 28.4 % (36-47); Lymphocytes # 0.7 10^3/uL (0.8-4.8); Lymphocytes % 7.1 %; Mean Corpuscular HGB Conc 29.6 g/dL (30-55); Mean Corpuscular Hemoglobin 27.4 pg (27-33); Mean Corpuscular Volume 92.5 fl (85-98); Mean Platelet Volume 10.6 fL (7.4-10.4); Monocytes # 0.9 10^3/uL (0.2-0.9); Monocytes % 9.1 %; Neutrophils # 8.26 10^3/uL (1.8-7.7); Neutrophils % 81.8 %; Nucleated Red Blood Cells % 0 %; Platelet Count 225 10^3/cmm (157-399); Red Blood Count 3.07 10^6/uL (3.85-5.65)
[2024-09-03] MEDS: methylPREDNISolone sod succ 40 mg/mL INJ IVP (04:59)
--- NOTE | 2024-09-03 05:14 | PC.NURSE ---
Addendum entered by Ghislaine Lopez RN 09/03/24 05:47: New order for 10 mg IVP hydralazine once per Dr. Brown. Original Note: Pt refused to take 0400 dose of PO hydralazine. Pt spit pill out and said go fuck yourself and get out of here . Dr Brown notified.
[2024-09-03 05:54] LABS: Procalcitonin 0.11 ng/mL (0-0.5)
[2024-09-03 05:58] LABS: Magnesium 1.9 mg/dL (1.7-2.3); Phosphorus 5.1 mg/dL (2.5-4.5)
[2024-09-03] MEDS: hyDRALAzine 20 mg/mL INJ 1 mL 10 MG IVP (06:09)
[2024-09-03 06:37] LABS: Glucose Point of Care 262 mg/dL (70-110)
[2024-09-03] MEDS: insulin lispro 100 unit/1 mL SUBCUT ×4 (06:50→22:34)
[2024-09-03] MEDS: budesonide 0.5 mg/2 mL Neb INHALATION ×2 (07:27→21:33)
[2024-09-03] MEDS: ipratropium-albuterol 3 mL Neb INHALATION ×3 (07:27→21:33)
[2024-09-03 08:26] LABS: Alanine Aminotransferase 18 U/L (0-33); Albumin Level 3.1 g/dL (3.5-5.2); Alkaline Phosphatase 94 U/L (35-105); Aspartate Amino Transferase 14 U/L (0-32); Calcium 8.1 mg/dL (8.5-10.5); Carbon Dioxide 27 mmol/L (22-29); Chloride 107 mmol/L (98-107); Creatinine Clr Calc Pharmacy 32.5497; Glomerular Filtration Rate 21.3 mL/min (90-130); Glucose 272 mg/dL (65-115); Osmolality Calculated 339 mOsm/kg (285-295); Sodium 146 mmol/L (136-145); Total Bilirubin 0.4 mg/dL (0.15-1.2); Total Protein 5.1 g/dL (6.6-8.7)
[2024-09-03] MEDS: lamoTRIgine 100 mg Tablet PO ×3 (08:26→21:08)
[2024-09-03] MEDS: allopurinol 300 mg Tablet PO (08:26)
[2024-09-03] MEDS: clopidogrel 75 mg Tablet PO (08:26)
[2024-09-03] MEDS: metoprolol tartrate 25 mg Tablet 37.5 MG PO ×2 (08:26→17:35)
[2024-09-03] MEDS: OLANZapine 5 mg TABLET PO ×2 (08:26→17:35)
[2024-09-03 08:42] LABS: Anion Gap 16.5 (5-19); Potassium 4.5 mmol/L (3.5-5.1)
[2024-09-03 08:44] LABS: Blood Urea Nitrogen 89 mg/dL (8-23)
--- NOTE | 2024-09-03 09:15 | PC.SLP ---
Attempted EXPERIMENTAL P[employer] FABRICATOR visit but patient would not rouse.
[2024-09-03] MEDS: sodium bicarbonate 150 MEQ in dextrose 5% 1,000 ML 100 MEQ IV (10:34)
[2024-09-03 11:00] LABS: Glucose Point of Care 260 mg/dL (70-110)
[2024-09-03] MEDS: acetaminophen 325 mg Tablet 650 MG PO (11:12)
[2024-09-03] MEDS: hyDRALAzine 25 mg Tablet PO ×2 (11:19→21:08)
--- NOTE | 2024-09-03 11:19 | P.PN_ITS ---
Subjective 2 Subjective: events noted Medications: Reviewed: Yes Vitals/I&O/Wt Last Vital Signs Temp 96.1 F L 09/03/24 08:18 Pulse 60 09/03/24 08:18 Resp 18 09/03/24 08:18 BP 146/64 09/03/24 08:18 Pulse Ox 95 09/03/24 08:18 O2 Del Method Nasal Cannula 09/03/24 08:18 O2 Flow Rate 2 09/03/24 08:18 FiO2 30 09/01/24 20:00 09/02/24 09/03/24 09/03/24 22:59 06:59 14:59 Intake Total 2159.329 / 2397.954 753.732 / 3151.686 1250.425 / 1250.425 Output Total 550 / 1650 950 / 2600 Balance 1609.329 / 747.954 -196.268 / 185.962 6184.425 / 1250.425 Weight last 48 hrs Weight 123.1 kg Weight 123.513 kg Physical Exam 2 Narrative: Vital signs noted. Patient obese, using nasal cannula oxygen in bed. HEENT normocephalic atraumatic. Neck is supple Lungs right base dull. left clear Heart regular Abdomen is soft positive bowel sounds. Extremities bilateral much improved edema. Neuro - more awake, interactive, responsive, moves No significant rashes. Urinary Catheter Management: Kent: Cath Placed During This Visit: yes Reason for Continuing Indwelling Catheter: Accurate Measurement of Urinary Output in Critically Ill Patients Urinary Catheter Date of Insertion: 08/30/24 Urinary Catheter Time of Insertion: 20:25 Data 09/03/24 04:02 09/03/24 05:08 A&P Assessment and plan (1) DELORIS (acute kidney injury): 64-year-old lady obesity hypertension diabetes and cancer disease. Patient's renal function has been worsening over the last year with multiple episodes of acute kidney injury. On last admission the patient needed emergent dialysis for symptomatic bradycardia with hyperkalemia and acute kidney injury. And since then her renal function improved. Patient was admitted 2 days ago with shortness of breath confusion lethargy and edema. The patient's creatinine was 2.2 mg/dL which is good for her and now the patient developed acute kidney injury and hyperkalemia. 1. Acute kidney injury-Urinalysis has 3+ protein otherwise is negative. No hydronephrosis on imaging. On the last admission we did an immunological workup having a normal serum immunofixation with normal free kappa lambda light chain ratio normal YI negative ANCA negative antidouble-stranded DNA, negative anti-GBM. Cr stable , noted high BUN likely contributed some by steroids , monitor 2. Mixed hypercapnic respiratory acidosis and metabolic acidosis. 3. hyperkalemia from DELORIS on CKD and from meds. She also is acidotic and hyperglycemic, improved 4. moderate mitral stenosis per cardiology The patient was seen and examined with the aid of a nurse using audiovisual equipment. Plan See above. Attestations 2 Medical Necessity Statement*: per grzegorz Coding Level of Care Code Acute Code for [facility] Diagnoses DELORIS (acute kidney injury) N17.9
--- NOTE | 2024-09-03 12:15 | PC.SOCIAL ---
IMM Updated Updated pt's guardian, Brenton Hsu, on IMM. No questions voiced. Provided pt a copy. Initialed, dated, & timed copy in chart.
--- NOTE | 2024-09-03 13:09 | PC.SLP ---
Nursing reported patient agitated when roused for lunch. No CONTRACT ADMINISTRATION SPECIALIST treatment provided due agitation level.
[2024-09-03] MEDS: morphine 4 mg/mL SDV 1 mL 2 MG IVP (13:45)
--- NOTE | 2024-09-03 14:41 | PM.PN ---
Subjective Subjective: Patient was seen this morning, she is alert to person, she has word salad, does follow commands at times pupil equal round reactive to light, she has no complaints this morning Vitals/I&O/Wt Last Vital Signs Temp 96.1 F L 09/03/24 08:18 Pulse 60 09/03/24 12:00 Resp 23 H 09/03/24 13:45 BP 156/79 09/03/24 12:00 Pulse Ox 94 09/03/24 12:00 O2 Del Method Nasal Cannula 09/03/24 11:29 O2 Flow Rate 2 09/03/24 11:29 FiO2 30 09/01/24 20:00 09/02/24 09/03/24 09/03/24 22:59 06:59 14:59 Intake Total 2159.329 / 2397.954 753.732 / 3151.686 1271.469 / 1271.469 Output Total 550 / 1650 950 / 2600 Balance 1609.329 / 747.954 -196.268 / 467.171 3837.469 / 1271.469 Weight last 48 hrs Weight 123.1 kg Weight 123.513 kg Physical Exam Const: COMMON NORMALS: no acute distress Resp: COMMON NORMALS: normal respiratory effort, No retractions, No use of accessory muscles and clear to auscultation bilaterally AUSCULTATION: clear to auscultation bilaterally Cardio: COMMON NORMALS: regular rate, regular rhythm, S1 normal heart sound present and S2 normal heart sound present RATE: regular rate RHYTHM: regular rhythm HEART SOUNDS: S1 normal heart sound present and S2 normal heart sound present GI: COMMON NORMALS: Normal to inspection, nondistended, normoactive bowel sounds present and non-tender Extremity: NARRATIVE EXTREMITY EXAM: 1+ edema Psych: COMMON NORMALS: mental status grossly normal Urinary Catheter Management: Kent: Cath Placed During This Visit: yes Reason for Continuing Indwelling Catheter: Accurate Measurement of Urinary Output in Critically Ill Patients Urinary Catheter Date of Insertion: 08/30/24 Urinary Catheter Time of Insertion: : Data 09/03/24 04:02 09/03/24 05:08 A&P Assessment and plan (1) Acute encephalopathy: (2) Acute respiratory failure with hypoxia and hypercapnia: (3) CHF exacerbation: (4) DELORIS (acute kidney injury): (5) Pneumonia: Plan Acute encephalopathy -Does have acute CVA, history of dysphagia -Etiology unclear, possibly medication withdrawal, as patient has not been taking her medications as per the [facility], here due to encephalopathy she has not received her psychotropic medications, she is on multiple psychotropic medications such as Lamictal, eszopiclone, risperidone -At baseline she has word salad, dysphagia, oriented to herself Plan -Moved to [facility] -Monitor mentation closely -Neurochecks, NIH stroke scale, aspiration precautions -CT of the head no acute findings ? She should get all her psychiatric medications orally today as her mentation has improved Severe persistent hyperkalemia ? history of hyperkalemia requiring dialysis in the past ?monitor serial BMP ? Nephrology consulted, which patient might require dialysis based on clinical progress Acute hypoxic hypercarbic respiratory failure -Secondary to systolic and diastolic CHF exacerbation -Secondary to COPD -Pneumonia, CT showing bilateral dependent atelectasis versus infiltrate, with scattered subcentimeter short axis mediastinal lymph node enlargement, moderate bilateral pleural effusions Plan -Place Kent catheter -Appears euvolemic hold Lasix for today -Monitor urine output monitor creatinine monitor potassium -Monitor respiratory status closely -Currently on BiPAP -Solu-Medrol 40 mg IV every 24 -Continue Zosyn -Follow blood cultures -Respiratory viral pending -DuoNeb -Budesonide Pneumonia CHF exacerbation DELORIS on CKD -Recent history of dialysis here at [facility], and at [facility] for acute renal failure, hyperkalemia -Monitor urine output monitor creatinine closely -Might require dialysis based on clinical progress, nephrology consulted Type 2 diabetes mellitus, low-dose sliding scale History of paranoia, depression, agitation -Is on Zyprexa -Lamictal -Risperidone -Wellbutrin -Cannot take any of those above orally due to acute encephalopathy -Precedex drip -Haldol as needed History of bradycardia, currently paced rhythm Full code Lovenox for DVT prophylaxis Plan for today recommendation, PT OT, continue IV antibiotics continue steroids, moved to [facility] Attestations Medical Necessity Statement*: Patient requires hospitalization for acute encephalopathy, acute respiratory failure, DELORIS Diagnoses Acute encephalopathy G93.40 Acute respiratory failure with hypoxia and hypercapnia J96.01; J96.02 CHF exacerbation I50.9 DELORIS (acute kidney injury) N17.9 Pneumonia J18.9
[2024-09-03 16:45] LABS: Glucose Point of Care 298 mg/dL (70-110)
[2024-09-03] MEDS: atorvastatin 40 mg Tablet PO (21:08)
[2024-09-03] MEDS: pantoprazole 40 mg SDV IVP (21:08)
[2024-09-03] MEDS: enoxaparin 30 mg/0.3 mL Syringe SUBCUT (21:11)
[2024-09-03 21:18] LABS: Glucose Point of Care 250 mg/dL (70-110)
[2024-09-04] VITALS (13 sets, daily range): BP systolic 129–153; BP diastolic 59–71; PULSE 60–70; RESP 14–20; TEMP 36.4–37.2; O2SAT 91–94
[2024-09-04] MEDS: lidocaine 2% viscous 15 ML, aluminum-mag hydrox-simethicon 30 ML, sucralfate oral liq 1 GM PO (01:13)
[2024-09-04] MEDS: sodium polystyrene sulfonate 15 gm/60 mL Btl PO (01:13)
[2024-09-04] MEDS: loperamide 2 mg Capsule 4 MG PO (01:14)
[2024-09-04 03:41] LABS: Basophils % 0.1 %; Eosinophils # 0.5 10^3/uL (0.0-0.8); Eosinophils % 3.1 %; Hematocrit 31.2 % (36-47); Lymphocytes # 1.2 10^3/uL (0.8-4.8); Lymphocytes % 7.7 %; Mean Corpuscular HGB Conc 29.5 g/dL (30-55); Mean Corpuscular Hemoglobin 27.4 pg (27-33); Mean Corpuscular Volume 92.9 fl (85-98); Mean Platelet Volume 10.5 fL (7.4-10.4); Monocytes # 1.7 10^3/uL (0.2-0.9); Monocytes % 11.2 %; Neutrophils # 11.58 10^3/uL (1.8-7.7); Neutrophils % 77.4 %; Nucleated Red Blood Cells % 0 %; Platelet Count 249 10^3/cmm (157-399); Red Blood Count 3.36 10^6/uL (3.85-5.65); Red Cell Distribution Width 17.1 % (12.1-15.1); White Blood Count 14.98 10^3/uL (3.29-11.43)
[2024-09-04 03:56] LABS: Magnesium 1.7 mg/dL (1.7-2.3); Phosphorus 3.6 mg/dL (2.5-4.5)
[2024-09-04 04:06] LABS: Alanine Aminotransferase 21 U/L (0-33); Albumin Level 3.3 g/dL (3.5-5.2); Alkaline Phosphatase 98 U/L (35-105); Anion Gap 18.2 (5-19); Aspartate Amino Transferase 16 U/L (0-32); Carbon Dioxide 27 mmol/L (22-29); Chloride 105 mmol/L (98-107); Creatinine Clr Calc Pharmacy 31.1934; Globulin 1.8 g/dL (1.3-4.6); Glomerular Filtration Rate 20.3 mL/min (90-130); Glucose 158 mg/dL (65-115); NT Pro B Type Natriuretic Pept 5673 pg/mL (0-125); Osmolality Calculated 332 mOsm/kg (285-295); Potassium 3.2 mmol/L (3.5-5.1); Sodium 147 mmol/L (136-145); Total Bilirubin 0.6 mg/dL (0.15-1.2); Total Protein 5.1 g/dL (6.6-8.7)
[2024-09-04 04:30] LABS: Blood Urea Nitrogen 82 mg/dL (8-23)
[2024-09-04] MEDS: ondansetron 2 mg/ML SDV 2 mL 4 MG IVP ×2 (04:43→20:42)
[2024-09-04] MEDS: buPROPion XL (24 HR) 150 mg Tablet PO (05:50)
[2024-09-04] MEDS: risperiDONE 1 mg Tablet PO (05:50)
[2024-09-04] MEDS: hyDRALAzine 25 mg Tablet PO ×3 (05:50→20:42)
[2024-09-04] MEDS: piperacillin-tazobactam 3.375 GM in sodium chloride 0.9% (plus) 50 ML IV ×3 (05:50→18:07)
[2024-09-04] MEDS: methylPREDNISolone sod succ 40 mg/mL INJ IVP (05:50)
[2024-09-04 06:20] LABS: Glucose Point of Care 191 mg/dL (70-110)
[2024-09-04] MEDS: insulin lispro 100 unit/1 mL SUBCUT ×4 (07:55→20:58)
[2024-09-04] MEDS: lamoTRIgine 100 mg Tablet PO ×3 (08:03→20:41)
[2024-09-04] MEDS: clopidogrel 75 mg Tablet PO (08:03)
[2024-09-04] MEDS: OLANZapine 5 mg TABLET PO ×2 (08:03→17:34)
[2024-09-04] MEDS: allopurinol 300 mg Tablet PO (08:03)
[2024-09-04] MEDS: metoprolol tartrate 25 mg Tablet 37.5 MG PO ×2 (08:03→17:34)
[2024-09-04] MEDS: budesonide 0.5 mg/2 mL Neb INHALATION ×2 (08:38→21:32)
[2024-09-04] MEDS: ipratropium-albuterol 3 mL Neb INHALATION ×4 (08:38→21:33)
[2024-09-04 11:42] LABS: Glucose Point of Care 322 mg/dL (70-110)
--- NOTE | 2024-09-04 15:38 | PM.PN ---
Subjective Subjective: Patient was seen this morning she is much more alert awake, she follows commands, denies any complaints, Vitals/I&O/Wt Last Vital Signs Temp 98.0 F 09/04/24 12:00 Pulse 60 09/04/24 15:33 Resp 18 09/04/24 15:31 BP 129/62 09/04/24 12:00 Pulse Ox 94 09/04/24 15:31 O2 Del Method Nasal Cannula 09/04/24 15:31 O2 Flow Rate 2 09/04/24 15:31 FiO2 30 09/01/24 20:00 09/04/24 09/04/24 09/04/24 06:59 14:59 22:59 Intake Total 50 / 1788.136 50 / 50 Output Total 850 / 850 Balance -800 / 938.136 50 / 50 Weight last 48 hrs Weight 124.012 kg Weight 123.1 kg Physical Exam Const: COMMON NORMALS: no acute distress ORIENTATION/CONSCIOUSNESS: Yes awake and Yes oriented to person; not oriented to place and not oriented to time Resp: COMMON NORMALS: normal respiratory effort, No retractions, No use of accessory muscles and clear to auscultation bilaterally AUSCULTATION: clear to auscultation bilaterally Cardio: COMMON NORMALS: regular rate, regular rhythm, S1 normal heart sound present and S2 normal heart sound present RATE: regular rate RHYTHM: regular rhythm HEART SOUNDS: S1 normal heart sound present and S2 normal heart sound present GI: COMMON NORMALS: Normal to inspection, nondistended, normoactive bowel sounds present, Soft to palpation and non-tender PALPATION: Yes Soft to palpation Extremity: NARRATIVE EXTREMITY EXAM: 1+ pitting edema Neuro: SENSORIUM/ORIENTATION: Yes oriented to person, No oriented to place and No oriented to time Urinary Catheter Management: Kent: Cath Placed During This Visit: yes Reason for Continuing Indwelling Catheter: Other Urinary Catheter Date of Insertion: 08/30/24 Urinary Catheter Time of Insertion: 20:25 Data 09/04/24 02:49 09/04/24 02:49 A&P Assessment and plan (1) Acute encephalopathy: (2) Acute respiratory failure with hypoxia and hypercapnia: (3) CHF exacerbation: (4) DELORIS (acute kidney injury): (5) Pneumonia: Plan Acute encephalopathy -Does have acute CVA, history of dysphagia -Etiology unclear, possibly medication withdrawal, as patient has not been taking [facility], here due to encephalopathy she has not received her psychotropic medications, she is on multiple psychotropic medications such as Lamictal, eszopiclone, risperidone -At baseline she has word salad, dysphagia, oriented to herself Plan -Moved to [facility] -Monitor mentation closely -Neurochecks, NIH stroke scale, aspiration precautions -CT of the head no acute findings ? She should get all her psychiatric medications orally today as her mentation has improved Severe persistent hyperkalemia ? history of hyperkalemia requiring dialysis in the past ?monitor serial BMP ? Nephrology consulted, which patient might require dialysis based on clinical progress Acute hypoxic hypercarbic respiratory failure -Secondary to systolic and diastolic CHF exacerbation -Secondary to COPD -Pneumonia, CT showing bilateral dependent atelectasis versus infiltrate, with scattered subcentimeter short axis mediastinal lymph node enlargement, moderate bilateral pleural effusions Plan -Place Kent catheter -Has 1+ pitting edema 1 dose IV Lasix will consider further dosing based on clinical progress -Monitor urine output monitor creatinine monitor potassium -Monitor respiratory status closely -Currently on BiPAP -Prednisone 40 mg daily -Continue Zosyn -Follow blood cultures -Respiratory viral pending -DuoNeb -Budesonide Pneumonia CHF exacerbation DELORIS on CKD -Recent history of dialysis here at [facility], and at [facility] for acute renal failure, hyperkalemia -Monitor urine output monitor creatinine closely -Might require dialysis based on clinical progress, nephrology consulted Uremia, monitor Type 2 diabetes mellitus, low-dose sliding scale History of paranoia, depression, agitation -Is on Zyprexa -Lamictal -Risperidone -Wellbutrin -Cannot take any of those above orally due to acute encephalopathy -Precedex drip -Haldol as needed History of bradycardia, currently paced rhythm Full code Lovenox for DVT prophylaxis Plan for today recommendation, PT OT, continue IV antibiotics continue steroids, IV Lasix, Attestations Medical Necessity Statement*: Patient requires hospitalization for encephalopathy, respiratory failure, pneumonia, CHF Diagnoses Acute encephalopathy G93.40 Acute respiratory failure with hypoxia and hypercapnia J96.01; J96.02 CHF exacerbation I50.9 DELORIS (acute kidney injury) N17.9 Pneumonia J18.9
[2024-09-04] MEDS: FUROsemide 10 mg/mL SDV 4mL 40 MG IVP (16:15)
--- NOTE | 2024-09-04 16:44 | P.PN_ITS ---
Subjective 2 Subjective: no new complaints Medications: Reviewed: Yes Vitals/I&O/Wt Last Vital Signs Temp 98.0 F 09/04/24 12:00 Pulse 60 09/04/24 15:33 Resp 18 09/04/24 15:31 BP 129/62 09/04/24 12:00 Pulse Ox 94 09/04/24 15:31 O2 Del Method Nasal Cannula 09/04/24 15:31 O2 Flow Rate 2 09/04/24 15:31 FiO2 30 09/01/24 20:00 09/04/24 09/04/24 09/04/24 06:59 14:59 22:59 Intake Total 50 / 1788.136 50 / 50 50 / 100 Output Total 850 / 850 Balance -800 / 938.136 50 / 50 50 / 100 Weight last 48 hrs Weight 124.012 kg Weight 123.1 kg Physical Exam 2 Narrative: Vital signs noted. Patient obese, using nasal cannula oxygen in bed. HEENT normocephalic atraumatic. Neck is supple Lungs right base dull. left clear Heart regular Abdomen is soft positive bowel sounds. Extremities bilateral much improved edema. Neuro - more awake, interactive, responsive, moves No significant rashes. Urinary Catheter Management: Kent: Cath Placed During This Visit: yes Reason for Continuing Indwelling Catheter: Other Urinary Catheter Date of Insertion: 08/30/24 Urinary Catheter Time of Insertion: 20:25 Data 09/04/24 02:49 09/04/24 02:49 A&P Assessment and plan (1) DELORIS (acute kidney injury): 64-year-old lady obesity hypertension diabetes and cancer disease. Patient's renal function has been worsening over the last year with multiple episodes of acute kidney injury. On last admission the patient needed emergent dialysis for symptomatic bradycardia with hyperkalemia and acute kidney injury. And since then her renal function improved. Patient was admitted 2 days ago with shortness of breath confusion lethargy and edema. The patient's creatinine was 2.2 mg/dL which is good for her and now the patient developed acute kidney injury and hyperkalemia. 1. Acute kidney injury-Urinalysis has 3+ protein otherwise is negative. No hydronephrosis on imaging. On the last admission we did an immunological workup having a normal serum immunofixation with normal free kappa lambda light chain ratio normal YI negative ANCA negative antidouble-stranded DNA, negative anti-GBM. Cr stable , noted high BUN likely contributed somewhat by steroids , monitor 2. Mixed hypercapnic respiratory acidosis and metabolic acidosis. 3. hyperkalemia from DELORIS on CKD and from meds. She also is acidotic and hyperglycemic, improved 4. moderate mitral stenosis per cardiology 5. Hypernatremia : encourage Po intake , monitor The patient was seen and examined with the aid of a nurse using audiovisual equipment. Plan See above. Attestations 2 Medical Necessity Statement*: per grzegorz Coding Level of Care Code Acute Code for [facility] Fwd Diagnoses DELORIS (acute kidney injury) N17.9
[2024-09-04 17:00] LABS: Glucose Point of Care 354 mg/dL (70-110)
[2024-09-04] MEDS: atorvastatin 40 mg Tablet PO (20:42)
[2024-09-04] MEDS: enoxaparin 30 mg/0.3 mL Syringe SUBCUT (20:42)
[2024-09-04] MEDS: pantoprazole 40 mg SDV IVP (20:42)
[2024-09-04 20:50] LABS: Glucose Point of Care 289 mg/dL (70-110)
[2024-09-05] VITALS (14 sets, daily range): BP systolic 109–163; BP diastolic 55–75; PULSE 59–73; RESP 16–20; TEMP 36.4–36.7; O2SAT 90–97
[2024-09-05] MEDS: piperacillin-tazobactam 3.375 GM in sodium chloride 0.9% (plus) 50 ML IV ×3 (03:03→18:04)
[2024-09-05] MEDS: hyDRALAzine 25 mg Tablet PO ×3 (03:34→20:25)
[2024-09-05 04:43] LABS: Eosinophils # 0.3 10^3/uL (0.0-0.8); Eosinophils % 3.1 %; Hematocrit 28.4 % (36-47); Lymphocytes # 0.9 10^3/uL (0.8-4.8); Lymphocytes % 9.1 %; Mean Corpuscular HGB Conc 29.2 g/dL (30-55); Mean Corpuscular Hemoglobin 27.6 pg (27-33); Mean Corpuscular Volume 94.4 fl (85-98); Mean Platelet Volume 10.7 fL (7.4-10.4); Monocytes % 10.7 %; Neutrophils # 7.35 10^3/uL (1.8-7.7); Neutrophils % 76.6 %; Nucleated Red Blood Cells % 0 %; Platelet Count 185 10^3/cmm (157-399); Red Blood Count 3.01 10^6/uL (3.85-5.65)
[2024-09-05 05:14] LABS: Alanine Aminotransferase 17 U/L (0-33); Albumin Level 3.1 g/dL (3.5-5.2); Alkaline Phosphatase 85 U/L (35-105); Anion Gap 15.6 (5-19); Aspartate Amino Transferase 12 U/L (0-32); C Reactive Protein 6.7 mg/L (0.0-4.9); Carbon Dioxide 29 mmol/L (22-29); Chloride 103 mmol/L (98-107); Creatinine Clr Calc Pharmacy 25.4437; Globulin 1.8 g/dL (1.3-4.6); Glomerular Filtration Rate 15.7 mL/min (90-130); Glucose 173 mg/dL (65-115); NT Pro B Type Natriuretic Pept 8205 pg/mL (0-125); Osmolality Calculated 327 mOsm/kg (285-295); Potassium 3.6 mmol/L (3.5-5.1); Sodium 144 mmol/L (136-145); Total Bilirubin 0.4 mg/dL (0.15-1.2); Total Protein 4.9 g/dL (6.6-8.7)
[2024-09-05] MEDS: risperiDONE 1 mg Tablet PO (05:14)
[2024-09-05] MEDS: buPROPion XL (24 HR) 150 mg Tablet PO (05:14)
[2024-09-05 05:23] LABS: Blood Urea Nitrogen 81 mg/dL (8-23)
[2024-09-05] MEDS: insulin lispro 100 unit/1 mL SUBCUT ×4 (06:19→21:04)
[2024-09-05 06:30] LABS: Glucose Point of Care 202 mg/dL (70-110)
[2024-09-05] MEDS: clopidogrel 75 mg Tablet PO (09:30)
[2024-09-05] MEDS: allopurinol 300 mg Tablet PO (09:30)
[2024-09-05] MEDS: lamoTRIgine 100 mg Tablet PO ×2 (09:31→20:25)
[2024-09-05] MEDS: predniSONE 20 mg Tablet 40 MG PO (09:31)
[2024-09-05] MEDS: acetaminophen 325 mg Tablet 650 MG PO (09:31)
[2024-09-05] MEDS: metoprolol tartrate 25 mg Tablet 37.5 MG PO (09:31)
[2024-09-05] MEDS: OLANZapine 5 mg TABLET PO ×2 (09:31→17:45)
--- NOTE | 2024-09-05 10:35 | P.PN_ITS ---
Subjective 2 Subjective: requests to go home on 2 L Medications: Reviewed: Yes Vitals/I&O/Wt Last Vital Signs Temp 98.1 F 09/05/24 08:00 Pulse 65 09/05/24 08:00 Resp 17 09/05/24 08:00 BP 118/56 09/05/24 08:00 Pulse Ox 93 09/05/24 08:00 O2 Del Method Nasal Cannula 09/05/24 08:00 O2 Flow Rate 2 09/05/24 07:37 FiO2 30 09/01/24 20:00 09/04/24 09/05/24 09/05/24 22:59 06:59 14:59 Intake Total 460 / 510 410 / 410 Output Total 700 / 700 Balance 460 / 510 -700 / -190 410 / 410 Weight last 48 hrs Weight 127.187 kg Weight 124.012 kg Physical Exam 2 Narrative: Vital signs noted. Patient obese, using nasal cannula oxygen in bed. HEENT normocephalic atraumatic. Neck is supple Lungs right base dull. left clear Heart regular Abdomen is soft positive bowel sounds. Extremities bilateral much improved edema. Neuro - more awake, interactive, responsive, moves No significant rashes. Urinary Catheter Management: Kent: Cath Placed During This Visit: yes Reason for Continuing Indwelling Catheter: Acute Urinary Retention or Obstruction Urinary Catheter Date of Insertion: 08/30/24 Urinary Catheter Time of Insertion: 20:25 Data 09/05/24 03:17 09/05/24 03:17 Micro: Microbiology 08/30/24 17:03 Blood Culture - Final Blood NO GROWTH AFTER 5 DAYS 08/30/24 16:58 Blood Culture - Final Blood NO GROWTH AFTER 5 DAYS A&P Assessment and plan (1) DELORIS (acute kidney injury): 64-year-old lady obesity hypertension diabetes and cancer disease. Patient's renal function has been worsening over the last year with multiple episodes of acute kidney injury. On last admission the patient needed emergent dialysis for symptomatic bradycardia with hyperkalemia and acute kidney injury. And since then her renal function improved. Patient was admitted 2 days ago with shortness of breath confusion lethargy and edema. The patient's creatinine was 2.2 mg/dL which is good for her and now the patient developed acute kidney injury and hyperkalemia. 1. Acute kidney injury-Urinalysis has 3+ protein otherwise is negative. No hydronephrosis on imaging. On the last admission we did an immunological workup having a normal serum immunofixation with normal free kappa lambda light chain ratio normal YI negative ANCA negative antidouble-stranded DNA, negative anti-GBM. Cr up today - ? etiology , added IV albumin - monitor , noted high BUN likely contributed somewhat by steroids , monitor 2. Mixed hypercapnic respiratory acidosis and metabolic acidosis. 3. hyperkalemia from DELORIS on CKD and from meds. She also is acidotic and hyperglycemic, improved 4. moderate mitral stenosis per cardiology 5. Hypernatremia : encourage Po intake , monitor The patient was seen and examined with the aid of a nurse using audiovisual equipment. Plan See above. Attestations 2 Medical Necessity Statement*: per grzegorz Coding Level of Care Code Acute Code for [facility] Diagnoses DELORIS (acute kidney injury) N17.9
[2024-09-05 10:37] LABS: Glucose Point of Care 295 mg/dL (70-110)
[2024-09-05] MEDS: potassium chloride ER 20 mEq Tablet 40 MEQ PO (11:16)
[2024-09-05] MEDS: FUROsemide 10 mg/mL SDV 4mL 40 MG IVP ×2 (11:17→20:25)
[2024-09-05] MEDS: albumin 25 G/100 ML BAG 60 G IV ×2 (11:30→22:15)
[2024-09-05] MEDS: ipratropium-albuterol 3 mL Neb INHALATION ×2 (15:11→21:45)
--- NOTE | 2024-09-05 15:37 | PM.PN ---
Subjective Subjective: Patient was seen this morning, she is alert to person, to place, not to time she follows commands, she is continues to have word salad, word finding difficulty, asked me when she can go home she continues to have edema, she tells me that she is short of breath Vitals/I&O/Wt Last Vital Signs Temp 98.0 F 09/05/24 12:00 Pulse 60 09/05/24 15:15 Resp 20 H 09/05/24 15:11 BP 132/55 09/05/24 12:00 Pulse Ox 97 09/05/24 15:11 O2 Del Method Nasal Cannula 09/05/24 15:11 O2 Flow Rate 2 09/05/24 15:11 FiO2 30 09/01/24 20:00 09/05/24 09/05/24 09/05/24 06:59 14:59 22:59 Intake Total 750 / 750 39.5 / 789.5 Output Total 700 / 700 Balance -700 / -190 750 / 750 39.5 / 789.5 Weight last 48 hrs Weight 127.187 kg Weight 124.012 kg Physical Exam Const: COMMON NORMALS: no acute distress ORIENTATION/CONSCIOUSNESS: Yes awake, Yes oriented to person and Yes oriented to place; not oriented to time Resp: COMMON NORMALS: normal respiratory effort, No retractions and No use of accessory muscles AUSCULTATION: crackles Cardio: COMMON NORMALS: regular rate, regular rhythm, S1 normal heart sound present and S2 normal heart sound present RATE: regular rate RHYTHM: regular rhythm HEART SOUNDS: S1 normal heart sound present and S2 normal heart sound present GI: COMMON NORMALS: Normal to inspection, nondistended, normoactive bowel sounds present and non-tender Extremity: COMMON NORMALS: no pedal edema Neuro: SENSORIUM/ORIENTATION: Yes oriented to person, Yes oriented to place and No oriented to time Psych: COMMON NORMALS: mental status grossly normal Urinary Catheter Management: Kent: Cath Placed During This Visit: yes Reason for Continuing Indwelling Catheter: Acute Urinary Retention or Obstruction Urinary Catheter Date of Insertion: 08/30/24 Urinary Catheter Time of Insertion: 20:25 Data 09/05/24 03:17 09/05/24 03:17 Micro: Microbiology 08/30/24 17:03 Blood Culture - Final Blood NO GROWTH AFTER 5 DAYS 08/30/24 16:58 Blood Culture - Final Blood NO GROWTH AFTER 5 DAYS A&P Assessment and plan (1) Acute encephalopathy: (2) Acute respiratory failure with hypoxia and hypercapnia: (3) CHF exacerbation: (4) DELORIS (acute kidney injury): (5) Pneumonia: Plan Acute encephalopathy -Does have acute CVA, history of dysphagia -Etiology unclear, possibly medication withdrawal, as patient has not been taking her medications as per the [place] [facility], here due to encephalopathy she has not received her psychotropic medications, she is on multiple psychotropic medications such as Lamictal, eszopiclone, risperidone -At baseline she has word salad, dysphagia, oriented to herself Plan -Moved to [facility] -Monitor mentation closely -Neurochecks, NIH stroke scale, aspiration precautions -CT of the head no acute findings ? She should get all her psychiatric medications orally today as her mentation has improved Severe persistent hyperkalemia, resolving ? history of hyperkalemia requiring dialysis in the past ?monitor serial BMP ? Nephrology consulted, which patient might require dialysis based on clinical progress Acute hypoxic hypercarbic respiratory failure -Secondary to systolic and diastolic CHF exacerbation -Secondary to COPD -Pneumonia, CT showing bilateral dependent atelectasis versus infiltrate, with scattered subcentimeter short axis mediastinal lymph node enlargement, moderate bilateral pleural effusions Plan -Place Kent catheter -Has 1+ pitting edema 1 dose IV Lasix will consider further dosing based on clinical progress -Monitor urine output monitor creatinine monitor potassium -Monitor respiratory status closely -Currently on BiPAP -Prednisone 40 mg daily -Continue Zosyn -Follow blood cultures -Respiratory viral pending -DuoNeb -Budesonide Pneumonia CHF exacerbation DELORIS on CKD -Recent history of dialysis here at [facility], and at [facility] for acute renal failure, hyperkalemia -Monitor urine output monitor creatinine closely -Might require dialysis based on clinical progress, nephrology consulted Uremia, monitor Type 2 diabetes mellitus, low-dose sliding scale History of paranoia, depression, agitation -Is on Zyprexa -Lamictal -Risperidone -Wellbutrin -Cannot take any of those above orally due to acute encephalopathy -Precedex drip, stop -Haldol as needed History of bradycardia, currently paced rhythm Full code Lovenox for DVT prophylaxis Plan for today recommendation, PT OT, continue IV antibiotics continue steroids, IV Lasix, fluid overloaded Attestations Medical Necessity Statement*: Patient requires hospitalization for CHF, requiring IV diuresis, pneumonia requiring antibiotics Diagnoses Acute encephalopathy G93.40 Acute respiratory failure with hypoxia and hypercapnia J96.01; J96.02 CHF exacerbation I50.9 DELORIS (acute kidney injury) N17.9 Pneumonia J18.9
[2024-09-05 17:52] LABS: Glucose Point of Care 348 mg/dL (70-110)
[2024-09-05] MEDS: enoxaparin 30 mg/0.3 mL Syringe SUBCUT (20:25)
[2024-09-05] MEDS: pantoprazole 40 mg SDV IVP (20:25)
[2024-09-05] MEDS: atorvastatin 40 mg Tablet PO (20:25)
[2024-09-05 21:19] LABS: Glucose Point of Care 327 mg/dL (70-110)
[2024-09-05] MEDS: budesonide 0.5 mg/2 mL Neb INHALATION (21:44)
[2024-09-06] VITALS (11 sets, daily range): BP systolic 144–160; BP diastolic 65–79; PULSE 60–67; RESP 16–19; TEMP 36.4–36.8; O2SAT 93–96
[2024-09-06] MEDS: piperacillin-tazobactam 3.375 GM in sodium chloride 0.9% (plus) 50 ML IV ×2 (02:34→12:00)
[2024-09-06] MEDS: hyDRALAzine 25 mg Tablet PO ×3 (04:05→20:58)
[2024-09-06 04:32] LABS: Basophils % 0.2 %; Eosinophils % 0.2 %; Hematocrit 26.1 % (36-47); Lymphocytes # 0.4 10^3/uL (0.8-4.8); Lymphocytes % 5.3 %; Mean Corpuscular HGB Conc 29.1 g/dL (30-55); Mean Corpuscular Hemoglobin 28.1 pg (27-33); Mean Corpuscular Volume 96.7 fl (85-98); Mean Platelet Volume 11.6 fL (7.4-10.4); Monocytes # 0.4 10^3/uL (0.2-0.9); Monocytes % 5.6 %; Neutrophils # 5.79 10^3/uL (1.8-7.7); Neutrophils % 87.5 %; Nucleated Red Blood Cells % 0 %; Platelet Count 130 10^3/cmm (157-399); Red Cell Distribution Width 16.2 % (12.1-15.1); White Blood Count 6.61 10^3/uL (3.29-11.43)
[2024-09-06] MEDS: buPROPion XL (24 HR) 150 mg Tablet PO (05:51)
[2024-09-06] MEDS: risperiDONE 1 mg Tablet PO (05:51)
[2024-09-06] MEDS: insulin lispro 100 unit/1 mL SUBCUT ×4 (06:08→20:58)
[2024-09-06 06:09] LABS: Glucose Point of Care 332 mg/dL (70-110)
--- NOTE | 2024-09-06 06:50 | P.PN_ITS ---
Subjective 2 Subjective: no new c/o Medications: Reviewed: Yes Vitals/I&O/Wt Last Vital Signs Temp 97.9 F 09/06/24 04:00 Pulse 64 09/06/24 05:16 Resp 16 09/06/24 04:00 BP 144/65 09/06/24 04:00 Pulse Ox 93 09/06/24 04:00 O2 Del Method Room Air 09/06/24 04:00 O2 Flow Rate 2 09/05/24 21:45 FiO2 30 09/01/24 20:00 09/05/24 09/05/24 09/06/24 14:59 22:59 06:59 Intake Total 750 / 750 100.0 / 850.0 400 / 1250.0 Output Total 400 / 400 400 / 800 Balance 750 / 750 -300.0 / 450.0 0 / 450.0 Weight last 48 hrs Weight 127.187 kg Weight 127.187 kg Physical Exam 2 Narrative: Vital signs noted. Patient obese, using nasal cannula oxygen in bed. HEENT normocephalic atraumatic. Neck is supple Lungs right base dull. left clear Heart regular Abdomen is soft positive bowel sounds. Extremities bilateral much improved edema. Neuro - more awake, interactive, responsive, No significant rashes. Urinary Catheter Management: Kent: Cath Placed During This Visit: yes Reason for Continuing Indwelling Catheter: Other Urinary Catheter Date of Insertion: 08/30/24 Urinary Catheter Time of Insertion: :25 Data 09/07/24 06:20 09/07/24 06:20 A&P Assessment and plan (1) DELORIS (acute kidney injury): 64-year-old lady obesity hypertension diabetes and cancer disease. Patient's renal function has been worsening over the last year with multiple episodes of acute kidney injury. On last admission the patient needed emergent dialysis for symptomatic bradycardia with hyperkalemia and acute kidney injury. And since then her renal function improved. Patient was admitted 2 days ago with shortness of breath confusion lethargy and edema. The patient's creatinine was 2.2 mg/dL which is good for her and now the patient developed acute kidney injury and hyperkalemia. 1. Acute kidney injury-Urinalysis has 3+ protein otherwise is negative. No hydronephrosis on imaging. On the last admission we did an immunological workup having a normal serum immunofixation with normal free kappa lambda light chain ratio normal YI negative ANCA negative antidouble-stranded DNA, negative anti-GBM. - Cr up to 3.0 , added IV albumin and lasix , UOP reasoanable , check renal US Arrange Nephrology follow up @ DC 2. Mixed hypercapnic respiratory acidosis and metabolic acidosis. 3. hyperkalemia from DELORIS on CKD and from meds. She also is acidotic and hyperglycemic, improved 4. moderate mitral stenosis per cardiology 5. Hypernatremia : encourage Po intake , monitor The patient was seen and examined with the aid of a nurse using audiovisual equipment. Plan See above. Attestations 2 Medical Necessity Statement*: per grzegorz Coding Level of Care Code Acute Code for [facility] Diagnoses DELORIS (acute kidney injury) N17.9
[2024-09-06] MEDS: FUROsemide 10 mg/mL SDV 4mL 40 MG IVP ×2 (08:47→20:58)
[2024-09-06] MEDS: predniSONE 20 mg Tablet 40 MG PO (08:47)
[2024-09-06] MEDS: metoprolol tartrate 25 mg Tablet 37.5 MG PO ×2 (08:47→17:24)
[2024-09-06] MEDS: OLANZapine 5 mg TABLET PO ×2 (08:48→17:24)
[2024-09-06] MEDS: allopurinol 300 mg Tablet PO (08:48)
[2024-09-06] MEDS: lamoTRIgine 100 mg Tablet PO ×3 (08:48→20:58)
[2024-09-06] MEDS: clopidogrel 75 mg Tablet PO (08:48)
[2024-09-06 09:24] LABS: Alanine Aminotransferase 16 U/L (0-33); Albumin Level 3.4 g/dL (3.5-5.2); Alkaline Phosphatase 66 U/L (35-105); Aspartate Amino Transferase 12 U/L (0-32); Blood Urea Nitrogen 79 mg/dL (8-23); C Reactive Protein 3.6 mg/L (0.0-4.9); Carbon Dioxide 28 mmol/L (22-29); Chloride 101 mmol/L (98-107); Creatinine Clr Calc Pharmacy 25.4437; Globulin 1.8 g/dL (1.3-4.6); Glomerular Filtration Rate 15.7 mL/min (90-130); Glucose 259 mg/dL (65-115); Magnesium 1.9 mg/dL (1.7-2.3); NT Pro B Type Natriuretic Pept 7632 pg/mL (0-125); Osmolality Calculated 327 mOsm/kg (285-295); Sodium 142 mmol/L (136-145); Total Bilirubin 0.2 mg/dL (0.15-1.2); Total Protein 5.2 g/dL (6.6-8.7)
[2024-09-06 09:32] LABS: Anion Gap 16.9 (5-19); Potassium 3.9 mmol/L (3.5-5.1)
[2024-09-06 11:55] LABS: Glucose Point of Care 201 mg/dL (70-110)
[2024-09-06] MEDS: albumin 25 G/100 ML BAG 60 G IV ×2 (11:57→22:12)
--- NOTE | 2024-09-06 13:09 | PC.SOCIAL ---
IMM Updated Updated pt's guardian on IMM. No questions voiced. Provided pt a copy. Initialed, dated, & timed copy in chart.
[2024-09-06 16:52] LABS: Glucose Point of Care 345 mg/dL (70-110)
--- NOTE | 2024-09-06 17:15 | P.PN_ITS ---
Subjective 2 Subjective: Patient is much more alert and awake this morning, denies any chest pain, does report shortness of breath and edema, she is frustrated by her dysphagia diet Vitals/I&O/Wt Last Vital Signs Temp 98.1 F 09/06/24 15:46 Pulse 61 09/06/24 15:46 Resp 18 09/06/24 15:46 BP 156/65 09/06/24 15:46 Pulse Ox 96 09/06/24 15:46 O2 Del Method Nasal Cannula 09/06/24 15:46 O2 Flow Rate 2 09/06/24 07:50 FiO2 30 09/01/24 20:00 09/06/24 09/06/24 09/06/24 06:59 14:59 22:59 Intake Total 400 / 1250.0 220 / 220 50 / 270 Output Total 400 / 800 Balance 0 / 450.0 220 / 220 50 / 270 Weight last 48 hrs Weight 127.187 kg Weight 127.187 kg Physical Exam 2 Const: COMMON NORMALS: no acute distress ORIENTATION/CONSCIOUSNESS: Yes awake, Yes oriented to person and Yes oriented to place Resp: COMMON NORMALS: normal respiratory effort, No retractions, No use of accessory muscles and clear to auscultation bilaterally AUSCULTATION: clear to auscultation bilaterally Cardio: COMMON NORMALS: regular rate, regular rhythm, S1 normal heart sound present and S2 normal heart sound present RATE: regular rate RHYTHM: r egular rhythm HEART SOUNDS: S1 normal heart sound present and S2 normal heart sound present GI: COMMON NORMALS: Normal to inspection, nondistended, normoactive bowel sounds present and non-tender Extremity: OTHER: 2+ pitting edema Neuro: SENSORIUM/ORIENTATION: Yes oriented to person and Yes oriented to place Psych: COMMON NORMALS: mental status grossly normal Urinary Catheter Management: Kent: Cath Placed During This Visit: yes Reason for Continuing Indwelling Catheter: Other Urinary Catheter Date of Insertion: 08/30/24 Urinary Catheter Time of Insertion: 20:25 Data 09/06/24 02:42 09/06/24 08:45 A&P Assessment and plan (1) Acute encephalopathy: (2) Acute respiratory failure with hypoxia and hypercapnia: (3) CHF exacerbation: (4) DELORIS (acute kidney injury): (5) Pneumonia: Plan Acute encephalopathy, resolved -Does have acute CVA, history of dysphagia -Etiology unclear, possibly medication withdrawal, as [facility] here due to encephalopathy she has not received her psychotropic medications, she is on multiple psychotropic medications such as Lamictal, eszopiclone, risperidone -At baseline she has word salad, dysphagia, oriented to herself Plan -Moved to [facility] -Monitor mentation closely -Neurochecks, NIH stroke scale, aspiration precautions -CT of the head no acute findings ? She should get all her psychiatric medications orally today as her mentation has improved Severe persistent hyperkalemia, resolving ? history of hyperkalemia requiring dialysis in the past ?monitor serial BMP ? Nephrology consulted, which patient might require dialysis based on clinical progress Acute hypoxic hypercarbic respiratory failure -Secondary to systolic and diastolic CHF exacerbation -Secondary to COPD -Pneumonia, CT showing bilateral dependent atelectasis versus infiltrate, with scattered subcentimeter short axis mediastinal lymph node enlargement, moderate bilateral pleural effusions Plan -Place Kent catheter -Continues to have 2+ pitting edema 2 doses of IV Lasix today, metolazone -Monitor urine output monitor creatinine monitor potassium -Monitor respiratory status closely -Currently on BiPAP -Prednisone 40 mg daily -Switch to Augmentin -Follow blood cultures -Respiratory viral pending -DuoNeb -Budesonide Pneumonia CHF exacerbation DELORIS on CKD -Recent history of dialysis here at [facility] [place], and at [facility] for acute renal failure, hyperkalemia -Monitor urine output monitor creatinine closely -Might require dialysis based on clinical progress, nephrology consulted Uremia, monitor Type 2 diabetes mellitus, low-dose sliding scale History of paranoia, depression, agitation -Is on Zyprexa -Lamictal -Risperidone -Wellbutrin -Cannot take any of those above orally due to acute encephalopathy -Precedex drip, stop -Haldol as needed History of bradycardia, currently paced rhythm Full code Lovenox for DVT prophylaxis Plan for today recommendation, PT OT, continue needs IV diuresis, continue to diurese planning discharge in the next 24 hours Attestations 2 Medical Necessity Statement*: Patient requires hospitalization for acute hypoxic respiratory failure secondary to CHF requiring IV diuresis Diagnoses Acute encephalopathy G93.40 Acute respiratory failure with hypoxia and hypercapnia J96.01; J96.02 CHF exacerbation I50.9 DELORIS (acute kidney injury) N17.9 Pneumonia J18.9
[2024-09-06] MEDS: amoxicillin-clav 875-125 mg Tablet 1 TAB PO (17:38)
[2024-09-06] MEDS: metOLazone 5 MG Tablet PO (17:38)
[2024-09-06] MEDS: ipratropium-albuterol 3 mL Neb INHALATION (20:27)
[2024-09-06] MEDS: budesonide 0.5 mg/2 mL Neb INHALATION (20:27)
[2024-09-06 20:34] LABS: Glucose Point of Care 329 mg/dL (70-110)
[2024-09-06] MEDS: atorvastatin 40 mg Tablet PO (20:58)
[2024-09-06] MEDS: enoxaparin 30 mg/0.3 mL Syringe SUBCUT (20:58)
[2024-09-06] MEDS: pantoprazole 40 mg SDV IVP (20:58)
[2024-09-07] VITALS (17 sets, daily range): BP systolic 161–180; BP diastolic 66–82; PULSE 59–65; RESP 16–20; TEMP 36.3–36.8; O2SAT 88–96
[2024-09-07] MEDS: risperiDONE 1 mg Tablet PO (05:17)
[2024-09-07] MEDS: hyDRALAzine 25 mg Tablet PO ×2 (05:17→12:29)
[2024-09-07] MEDS: buPROPion XL (24 HR) 150 mg Tablet PO (05:17)
[2024-09-07 06:18] LABS: Glucose Point of Care 273 mg/dL (70-110)
[2024-09-07 06:30] LABS: Basophils % 0.1 %; Eosinophils % 0.3 %; Hematocrit 25.2 % (36-47); Lymphocytes # 0.6 10^3/uL (0.8-4.8); Lymphocytes % 6.6 %; Mean Corpuscular HGB Conc 29.8 g/dL (30-55); Mean Corpuscular Hemoglobin 27.7 pg (27-33); Mean Platelet Volume 11.5 fL (7.4-10.4); Monocytes # 0.4 10^3/uL (0.2-0.9); Monocytes % 5.1 %; Neutrophils # 7.48 10^3/uL (1.8-7.7); Neutrophils % 87.2 %; Nucleated Red Blood Cells % 0 %; Platelet Count 156 10^3/cmm (157-399); Red Blood Count 2.71 10^6/uL (3.85-5.65); White Blood Count 8.59 10^3/uL (3.29-11.43)
[2024-09-07 06:45] LABS: Magnesium 1.9 mg/dL (1.7-2.3)
[2024-09-07 06:46] LABS: Alanine Aminotransferase 14 U/L (0-33); Albumin Level 3.7 g/dL (3.5-5.2); Alkaline Phosphatase 63 U/L (35-105); Aspartate Amino Transferase 12 U/L (0-32); Calcium 8.4 mg/dL (8.5-10.5); Carbon Dioxide 30 mmol/L (22-29); Chloride 99 mmol/L (98-107); Creatinine Clr Calc Pharmacy 26.3323; Globulin 1.7 g/dL (1.3-4.6); Glomerular Filtration Rate 16.3 mL/min (90-130); Glucose 276 mg/dL (65-115); Osmolality Calculated 326 mOsm/kg (285-295); Phosphorus 3.9 mg/dL (2.5-4.5); Sodium 141 mmol/L (136-145); Total Bilirubin 0.4 mg/dL (0.15-1.2); Total Protein 5.4 g/dL (6.6-8.7)
[2024-09-07 06:59] LABS: NT Pro B Type Natriuretic Pept 7945 pg/mL (0-125)
[2024-09-07] MEDS: budesonide 0.5 mg/2 mL Neb INHALATION (07:42)
--- NOTE | 2024-09-07 07:59 | P.PN_ITS ---
Subjective 2 Subjective: no SOB confused Medications: Reviewed: Yes Vitals/I&O/Wt Last Vital Signs Temp 97.4 F L 09/07/24 07:43 Pulse 62 09/07/24 07:49 Resp 18 09/07/24 07:43 BP 177/69 09/07/24 07:43 Pulse Ox 93 09/07/24 07:43 O2 Del Method Nasal Cannula 09/07/24 07:43 O2 Flow Rate 2 09/07/24 07:42 FiO2 30 09/01/24 20:00 09/06/24 09/07/24 09/07/24 22:59 06:59 14:59 Intake Total 1250 / 1470 460 / 1930 Output Total 1200 / 1200 1200 / 2400 Balance 50 / 270 -740 / -470 Weight last 48 hrs Weight 127.278 kg Weight 127.187 kg Physical Exam 2 Narrative: Vital signs noted. Patient obese, using nasal cannula oxygen in bed. HEENT normocephalic atraumatic. Neck is supple Lungs right base dull. left clear Heart regular Abdomen is soft positive bowel sounds. Extremities bilateral much improved edema. Neuro - more awake, interactive, responsive, No significant rashes. Urinary Catheter Management: Kent: Cath Placed During This Visit: yes Reason for Continuing Indwelling Catheter: Acute Urinary Retention or Obstruction Urinary Catheter Date of Insertion: 08/30/24 Urinary Catheter Time of Insertion: 20:25 Data 09/07/24 06:20 09/07/24 06:20 A&P Assessment and plan (1) DELORIS (acute kidney injury): 64-year-old lady obesity hypertension diabetes and cancer disease. Patient's renal function has been worsening over the last year with multiple episodes of acute kidney injury. On last admission the patient needed emergent dialysis for symptomatic bradycardia with hyperkalemia and acute kidney injury. And since then her renal function improved. Patient was admitted 2 days ago with shortness of breath confusion lethargy and edema. The patient's creatinine was 2.2 mg/dL which is good for her and now the patient developed acute kidney injury and hyperkalemia. 1. Acute kidney injury-Urinalysis has 3+ protein otherwise is negative. No hydronephrosis on imaging. On the last admission we did an immunological workup having a normal serum immunofixation with normal free kappa lambda light chain ratio normal YI negative ANCA negative antidouble-stranded DNA, negative anti-GBM. - on IV albumin and lasix ,switch to PO lasix in Am UOP reasoanable ,Cr stable 2. Mixed hypercapnic respiratory acidosis and metabolic acidosis. 3. hyperkalemia from DELORIS on CKD and from meds. She also is acidotic and hyperglycemic, improved 4. moderate mitral stenosis per cardiology 5. Hypernatremia : encourage Po intake , monitor , improved The patient was seen and examined with the aid of a nurse using audiovisual equipment. Plan See above. Attestations 2 Medical Necessity Statement*: per grzegorz Coding Level of Care Code Acute Code for [facility] Diagnoses DELORIS (acute kidney injury) N17.9
[2024-09-07 08:36] LABS: Anion Gap 15.9 (5-19); Blood Urea Nitrogen 81 mg/dL (8-23); Potassium 3.9 mmol/L (3.5-5.1)
[2024-09-07] MEDS: metoprolol tartrate 25 mg Tablet 37.5 MG PO ×2 (09:22→17:44)
[2024-09-07] MEDS: predniSONE 20 mg Tablet 40 MG PO (09:22)
[2024-09-07] MEDS: amoxicillin-clav 875-125 mg Tablet 1 TAB PO ×2 (09:22→17:44)
[2024-09-07] MEDS: lamoTRIgine 100 mg Tablet PO ×2 (09:22→14:51)
[2024-09-07] MEDS: pantoprazole 40 mg SDV IVP (09:22)
[2024-09-07] MEDS: OLANZapine 5 mg TABLET PO ×2 (09:23→17:44)
[2024-09-07] MEDS: FUROsemide 10 mg/mL SDV 4mL 40 MG IVP (09:23)
[2024-09-07] MEDS: sucralfate 1 gm/10 mL Oral Liq UDC PO ×2 (09:23→14:52)
[2024-09-07] MEDS: clopidogrel 75 mg Tablet PO (09:23)
[2024-09-07] MEDS: allopurinol 300 mg Tablet PO (09:23)
[2024-09-07] MEDS: metOLazone 5 MG Tablet PO (09:23)
[2024-09-07] MEDS: insulin lispro 100 unit/1 mL SUBCUT ×3 (09:24→17:44)
--- NOTE | 2024-09-07 10:50 | PM.DCS ---
Discharge Providers Date of Admission: 08/30/24 18:13 Date of Discharge: September 07, 2024 Attending Provider at Admission: Raad Chung MD Attending Provider at Discharge: Raad Chung MD Primary Care Provider: Benigno Jennings DO Diagnoses at Discharge Discharge Diagnosis (1) DELORIS (acute kidney injury): Status: Acute Reason for Visit Reason for Visit: SOB Hospital Course Hospital Course Hilda Wallace is a 64 year old female with a past medical history of anxiety and depression, paranoia, type 2 diabetes mellitus, CVA, dysphagia, Warnicke's,'s history of CVA, CKD, hypothyroidism, obstructive sleep apnea, hypertension, recent hospitalization for severe bradycardia with hyperkalemia requiring intubation, dialysis, eventually extubated, transferred to [facility] for pacemaker placement, and discharged to [facility]. Currently patient is alert and oriented x 0, she opens her eyes to her name, but does not respond, she is tries to mouth a couple of words in the BiPAP but falls back asleep, she moves bilateral upper extremities, she saturating in the high 90s on BiPAP, her GCS score 10, nursing staff tell me that she did talk to them for a bit, but fell back asleep, I spoke to nurses at [place], they tell me that Hilda has taken a significant decline since her last hospitalization. Before her last hospitalization she was able to ambulate with a walker, she was able to carry conversations, now she is more bedbound, she is confused, she can barely carry out conversations she has been refusing her medications, refusing her insulin she is in the gown she was sent home from [facility] as she refused nursing staff to take it off. She was sent over to [facility] as she was increasingly short of breath this morning, with wheezing and crackles with increasing lower extremity edema increased confusion weakness, fatigue. No reported falls. She does have a history of a stroke, and dysphagia Patient was admitted to [facility] for acute hypoxic respiratory failure multifactorial from COPD, CHF concerns for pneumonia, received broad-spectrum antibiotic therapy, IV diuresis, steroid therapy overall clinically improved. Will be discharged on Lasix therapy with close follow-up with cardiology as outpatient. For her DELORIS on CKD, creatinine on discharge is 2.9, follow-up with nephrology as outpatient. Patient has a history of temporary dialysis for hyperkalemia, For patient's encephalopathy likely multifactorial she has underlying CVA history of dysphagia, concerns for medication withdrawal, patient psychotropic medications were resumed. Her mentation has improved, on discharge she alert to person, to place, continues to have word salad but follows commands. Patient has severe hyperkalemia during her hospitalization, which has resolved. She has a history of hyperkalemia requiring dialysis in the past, For concerns for acute on chronic anemia, follow-up with general surgery for consideration of EGD as outpatient discharged on Protonix, Carafate transfused 1 unit PRBC during hospitalization. Physical Exam Const: COMMON NORMALS: no acute distress OTHER: alert to person, place, not to time, continues to have word salad Resp: COMMON NORMALS: normal respiratory effort, No retractions, No use of accessory muscles and clear to auscultation bilaterally AUSCULTATION: clear to auscultation bilaterally Cardio: COMMON NORMALS: regular rate, regular rhythm, S1 normal heart sound present and S2 normal heart sound present RATE: regular rate RHYTHM: regular rhythm HEART SOUNDS: S1 normal heart sound present and S2 normal heart sound present GI: COMMON NORMALS: Normal to inspection, nondistended, normoactive bowel sounds present and non-tender Extremity: COMMON NORMALS: no pedal edema Urinary Catheter Management: Kent: Cath Placed During This Visit: yes Reason for Continuing Indwelling Catheter: Acute Urinary Retention or Obstruction Urinary Catheter Date of Insertion: 08/30/24 Urinary Catheter Time of Insertion: 20:25 Discharge Data Studies Completed and Pending Completed Studies During Hospitalization Category Date Time Status CT chest abdomen pelvis [[place] [id number] Cat Scan 08/30/24 18:00 Completed ] Stat CT head wo con* [id number] Stat Cat Scan 08/30/24 18:00 Completed CXRP [XR chest 1V portable [id number]] Routine Exams 09/01/24 12:28 Completed XR chest 1V portable [id number] Stat Exams 08/30/24 15:58 Completed Pending at discharge Category Date Time Status Complete Blood Count w/Auto AM LABS Lab 09/08/24 04:00 Ordered Complete Blood Count w/Auto AM LABS Lab 09/09/24 04:00 Ordered Comprehensive Metabolic Panel AM LABS Lab 09/08/24 04:00 Ordered Comprehensive Metabolic Panel AM LABS Lab 09/09/24 04:00 Ordered Leukocyte Reduced RBC Stat Lab 09/07/24 09:18 Results Magnesium AM LABS Lab 09/08/24 04:00 Ordered Magnesium AM LABS Lab 09/09/24 04:00 Ordered Phosphorus AM LABS Lab 09/08/24 04:00 Ordered Phosphorus AM LABS Lab 09/09/24 04:00 Ordered Sputum Culture and Gram Stain Stat Lab 08/30/24 18:01 Uncollected Type and Screen Stat Lab 09/07/24 09:18 Results Radiology Impressions Chest/Abdomen/Pelvis CT 08/30/24 18:00 IMPRESSION: 1. Moderate bilateral pleural effusions. 2. Coronary artery atherosclerotic calcifications. 3. Left-sided pacemaker. 4. Mild cardiomegaly. 5. Scattered subcentimeter short axis mediastinal lymph nodes. 6. Bilateral dependent atelectasis versus infiltrate. 7. Multilevel bridging degenerative calcifications throughout the spine. IMPRESSION: 1. Negative for focal acute inflammatory process in the abdomen or pelvis. 2. Cholecystectomy. 3. Proximal celiac, superior mesenteric and bilateral renal arteries demonstrate a large amount of eccentric atherosclerotic calcification. 4. Anasarca. 5. Moderate constipation 6. Diverticulosis without diverticulitis. 7. Left lower anterior pelvic wall 17 mm suspected lymph node in the subcutaneous fat. Head CT 08/30/24 18:00 IMPRESSION: No acute intracranial abnormality. Chest X-Ray 09/01/24 12:28 IMPRESSION: Right arm PICC line placement as above. The above findings were discussed with the magnetic resonance technologist at 1:13 p.m. Laboratory Results WBC 8.59 10^3/uL (3.29-11.43) 09/07/24 06:20 RBC 2.71 10^6/uL (3.85-5.65) L 09/07/24 06:20 Hgb 7.50 g/dL (11.27-16.99) L 09/07/24 06:20 Hct 25.2 % (36-47) L 09/07/24 06:20 MCV 93.0 fl (85-98) 09/07/24 06:20 MCH 27.7 pg (27-33) 09/07/24 06:20 MCHC 29.8 g/dL (30-55) L 09/07/24 06:20 RDW 16.0 % (12.1-15.1) H 09/07/24 06:20 Plt Count 156 10^3/cmm (157-399) L 09/07/24 06:20 MPV 11.5 fL (7.4-10.4) H 09/07/24 06:20 Neut % (Auto) 87.2 % 09/07/24 06:20 Lymph % (Auto) 6.6 % 09/07/24 06:20 Haines % (Auto) 5.1 % 09/07/24 06:20 Eos % (Auto) 0.3 % 09/07/24 06:20 Baso % (Auto) 0.1 % 09/07/24 06:20 Neut # (Auto) 7.48 10^3/uL (1.8-7.7) 09/07/24 06:20 Lymph # (Auto) 0.6 10^3/uL (0.8-4.8) L 09/07/24 06:20 Haines # (Auto) 0.4 10^3/uL (0.2-0.9) 09/07/24 06:20 Eos # (Auto) 0.0 10^3/uL (0.0-0.8) 09/07/24 06:20 Baso # (Auto) 0.0 10^3/uL (0.0-0.1) 09/07/24 06:20 Nucleated RBC % (auto) 0 % 09/07/24 06:20 Nucleated RBCs # 0.0 /100WBC 09/07/24 06:20 PT 13.30 SECONDS (12.1-14.9) 08/30/24 15:35 INR 0.95 (0.8-1.2) 08/30/24 15:35 Specimen Type Arterial 09/02/24 13:20 Sample Site Radial, right 09/02/24 13:20 ABG pH 7.32 (7.35-7.45) L 09/02/24 13:20 ABG pCO2 46.7 mmHg (35-45) H 09/02/24 13:20 ABG pO2 74.7 mmHg (80.0-100.0) L 09/02/24 13:20 ABG PO2/FiO2 Ratio 233 09/02/24 13:20 ABG HCO3 24.1 mmol/L (22-26) 09/02/24 13:20 ABG O2 Saturation 95.7 09/02/24 13:20 ABG Base Excess -2.1 mmol/L (-2.0-2.0) L 09/02/24 13:20 Thien Test Pos 09/02/24 13:20 VBG pH 7.29 (7.32-7.42) L 09/02/24 03:10 VBG pCO2 50.2 mmHg (41-51) 09/02/24 03:10 VBG pO2 90.3 mmHg (25-40) H 09/02/24 03:10 VBG HCO3 23.9 mmol/L (24-28) L 09/02/24 03:10 VBG Base Excess -2.8 mmol/L (-3.0-3.0) 09/02/24 03:10 VBG Hematocrit 28.9 % (37-47) L 09/02/24 03:10 A-a O2 Gradient 12.6 mmHg (5-10) H 09/02/24 13:20 Hematocrit 30.6 % (37-47) L 09/02/24 13:20 Hgb O2 Saturation 93.3 % (95-100) L 09/02/24 13:20 Carboxyhemoglobin 1.4 %THgb (0.4-20.1) 09/02/24 13:20 Methemoglobin 1.1 % (0.4-1.5) 09/02/24 13:20 Total Hemoglobin 10.0 g/dL (12-16) L 09/02/24 13:20 Sodium 147.0 mmol/L (131-143) H 09/02/24 13:20 Potassium 5.3 mmol/L (3.5-5.0) H 09/02/24 13:20 Glucose 341.0 mg/dL (70-115) H 09/02/24 13:20 Ionized Calcium 1.2 mmol/L (1.1-1.4) 09/02/24 13:20 O2 Delivery Device Nc 09/02/24 13:20 O2 Liters/Min 3.0 % 09/02/24 13:20 FiO2 32.0 % 09/02/24 13:20 Change Management Analyst ID Gd 09/02/24 13:20 Sodium 141 mmol/L (136-145) 09/07/24 06:20 Potassium 3.9 mmol/L (3.5-5.1) 09/07/24 06:20 Chloride 99 mmol/L (98-107) 09/07/24 06:20 Carbon Dioxide 30 mmol/L (22-29) H 09/07/24 06:20 Anion Gap 15.9 (5-19) 09/07/24 06:20 BUN 81 mg/dL (8-23) H 09/07/24 06:20 Creatinine 2.9 mg/dL (0.5-0.9) H 09/07/24 06:20 GFR Calculation 16.3 mL/min (90-130) L 09/07/24 06:20 Glucose 276 mg/dL (65-115) H 09/07/24 06:20 POC Glucose 273 mg/dL (70-110) H 09/07/24 05:46 Estimat Average Glucose 143 08/30/24 15:35 Hemoglobin A1c 6.6 % (4.0-6.0) H 08/30/24 15:35 Calculated Osmolality 326 mOsm/kg (285-295) H 09/07/24 06:20 Lactic Acid 1.5 mmol/L (0.5-2.2) 08/30/24 15:35 Uric Acid 7.0 mg/dL (2.4-5.7) H 09/01/24 09:22 Calcium 8.4 mg/dL (8.5-10.5) L 09/07/24 06:20 Phosphorus 3.9 mg/dL (2.5-4.5) 09/07/24 06:20 Magnesium 1.9 mg/dL (1.7-2.3) 09/07/24 06:20 Total Bilirubin 0.4 mg/dL (0.15-1.2) 09/07/24 06:20 AST 12 U/L (0-32) 09/07/24 06:20 ALT 14 U/L (0-33) 09/07/24 06:20 Alkaline Phosphatase 63 U/L (35-105) 09/07/24 06:20 Ammonia 18 umol/L (11-51) 08/30/24 18:17 Lactate Dehydrogenase 208 U/L (135-214) 09/01/24 09:22 Troponin T Baseline 78 ng/L (0-10) H 08/30/24 15:35 Troponin T Hi Sens 6Hr 62.07 ng/L (0-10) H 08/30/24 21:24 Troponin T Hi Sens 6Hr Delta -15.93 ng/L (0-12) L 08/30/24 21:24 C-Reactive Protein 3.6 mg/L (0.0-4.9) 09/06/24 08:45 NT-Pro-B Natriuret Pep 7945 pg/mL (0-125) H 09/07/24 06:20 Total Protein 5.4 g/dL (6.6-8.7) L 09/07/24 06:20 Albumin 3.7 g/dL (3.5-5.2) 09/07/24 06:20 Globulin 1.7 g/dL (1.3-4.6) 09/07/24 06:20 Triglycerides 183 mg/dL (0-150) H 08/30/24 15:35 Cholesterol 165 mg/dL (0-200) 08/30/24 15:35 LDL Cholesterol, Calc 86 mg/dL (50-129) 08/30/24 15:35 HDL Cholesterol 42 mg/dL (60-100) L 08/30/24 15:35 LDL/HDL Ratio 2.05 RATIO (0.00-3.22) 08/30/24 15:35 Cholesterol/HDL Ratio 3.93 mg/dL (0.0-4.40) 08/30/24 15:35 25-OH Vitamin D Total 7 ng/mL (30-100) L 09/02/24 03:10 Procalcitonin 0.11 ng/mL (0-0.5) 09/03/24 05:08 TSH 3.15 uIU/mL (0.27-4.20) 08/30/24 15:35 Urine Color Yellow (Yellow) 09/01/24 10:15 Urine Appearance Clear (CLEAR) 09/01/24 10:15 Urine pH 5.0 (5-7) 09/01/24 10:15 Ur Specific [place] 1.010 (1.005-1.030) 09/01/24 10:15 Urine Protein 2+ (Negative) A 09/01/24 10:15 Urine Glucose (UA) Negative (Normal) 09/01/24 10:15 Urine Ketones Negative (Negative) 09/01/24 10:15 Urine Blood Negative (Negative) 09/01/24 10:15 Urine Nitrate Negative (Negative) 09/01/24 10:15 Urine Bilirubin Negative (Negative) 09/01/24 10:15 Urine Urobilinogen 0.2 mg/dL (Negative) 09/01/24 10:15 Ur Leukocyte Esterase Negative (Negative) 09/01/24 10:15 Urine RBC 3-5 /hpf (0-2) 09/01/24 10:15 Urine WBC 0-5 /hpf (0-5) 09/01/24 10:15 Ur Squamous Epith Cells 0-5 /hpf (0-5) 09/01/24 10:15 Amorphous Sediment Not Reportable 09/01/24 10:15 Urine Bacteria None seen /hpf (NONE) 09/01/24 10:15 Hyaline Casts 9.51 /lpf 09/01/24 10:15 Ur Random Sodium 117 mmol/L 09/01/24 10:15 Ur Random Potassium 17 mmol/L 09/01/24 10:15 Ur Random Chloride 110 mmol/L 09/01/24 10:15 Ur Random Chloride Cancelled 09/01/24 10:15 Urine Creatinine 25 mg/dL (28-217) L 09/01/24 10:15 Adenovirus (PCR) Not detected (NOT DETECT) 08/30/24 16:40 C. pneumoniae DNA (PCR) Not detected (NOT DETECT) 08/30/24 16:40 Coronavirus 229E (PCR) Not detected (NOT DETECT) 08/30/24 16:40 Human Metapneumovir PCR Not detected (NOT DETECT) 08/30/24 16:40 Influenza A (H1) PCR Not detected (NOT DETECT) 08/30/24 16:40 Influ A (H1/09) PCR Not detected (NOT DETECT) 08/30/24 16:40 Influenza A (H3) PCR Not detected (NOT DETECT) 08/30/24 16:40 Influenza Type A (PCR) Not detected (NOT DETECT) 08/30/24 16:40 Influenza Type B (PCR) Not detected (NOT DETECT) 08/30/24 16:40 M. pneumoniae (PCR) Not detected (NOT DETECT) 08/30/24 16:40 Parainfluenza 1 (PCR) Not detected (NOT DETECT) 08/30/24 16:40 Parainfluenza 2 (PCR) Not detected (NOT DETECT) 08/30/24 16:40 Parainfluenza 3 (PCR) Not detected (NOT DETECT) 08/30/24 16:40 Parainfluenza 4 (PCR) Not detected (NOT DETECT) 08/30/24 16:40 RSV Type A (PCR) Not detected (NOT DETECT) 08/30/24 16:40 RSV Type B (PCR) Not detected (NOT DETECT) 08/30/24 16:40 Entero/Rhino (PCR) Not detected (NOT DETECT) 08/30/24 16:40 SARS-CoV-2 (PCR) Not detected (NOT DETECT) 08/30/24 16:40 Blood Type O Positive 09/07/24 09:18 Rho(D) Type Rh positive 09/07/24 09:18 Crossmatch See Detail 09/07/24 09:18 Vitals Last Vital Signs Temp 97.4 F L 09/07/24 07:43 Pulse 62 09/07/24 07:49 Resp 18 09/07/24 07:43 BP 177/69 09/07/24 07:43 Pulse Ox 93 09/07/24 07:43 O2 Del Method Nasal Cannula 09/07/24 07:43 O2 Flow Rate 2 09/07/24 07:42 FiO2 30 09/01/24 20:00 Discharge Plan Discharge Patient Disposition: Home Condition: Stable Prescriptions: New sucralfate 100 mg/mL Suspension 1 g PO Q6H 30 Days Qty: 1200 0RF amoxicillin-pot clavulanate 875-125 mg Tablet 1 tab PO BID 5 Days Qty: 10 0RF pantoprazole [Protonix] 40 mg tablet,delayed release (DR/EC) 40 mg PO BID 30 Days Qty: 60 0RF furosemide [Lasix] 40 mg tablet 40 mg PO DAILY 30 Days Qty: 30 0RF potassium chloride [Klor-Con M20] 20 mEq tablet,ER particles/crystals 20 meq PO DAILY 30 Days Qty: 30 0RF Continued (DME) Dexcom G7 Sensor Device See Rx Instructions .Route Qty: 1 0RF Rx Instructions: As directed (DME) Dexcom G7 Flame Hardener Misc See Rx Instructions .Route Qty: 1 6RF Rx Instructions: As directed allopurinol 300 mg tablet 300 mg PO DAILY Qty: 90 0RF tramadol 50 mg tablet 50 mg PO Q6H PRN (Reason: pain) Qty: 120 5RF atorvastatin 40 mg tablet 40 mg PO BEDTIME cetirizine 10 mg Tablet 10 mg PO DAILY magnesium hydroxide [Milk of Magnesia] 400 mg/5 mL Suspension 30 ml PO DAILY PRN (Reason: Constipation) calcium carbonate 500 mg calcium (1,250 mg) Tablet,Chewable 500 mg PO Q8H PRN (Reason: gastro-esophageal reflux) acetaminophen [Tylenol] 325 mg Tablet 650 mg PO Q6H PRN (Reason: PAIN OR ELEVATED TEMP) omeprazole 20 mg Capsule,Delayed Release(Dr/Ec) 20 mg PO DAILY clopidogrel 75 mg tablet 75 mg PO DAILY metoprolol tartrate 25 mg tablet 37.5 mg PO BID ondansetron HCl 4 mg tablet 4 mg PO Q6H PRN (Reason: Nausea And Vomiting) ascorbic acid (vitamin C) [Vitamin C] 500 mg tablet 500 mg PO DAILY diphenhydramine HCl [Banophen] 25 mg Capsule 25 mg PO Q12H PRN (Reason: Allergy Symptoms) lidocaine 5 % Adhesive Patch,Medicated 1 patch TOPICAL Q12H PRN (Reason: Pain) Rx Instructions: leave on most painful area for up to 12 hrs fluticasone propionate 50 mcg/actuation spray,suspension 1 spray INTRANASAL Q12H PRN (Reason: ALLERGIES) risperidone 1 mg Tablet 1 mg PO QAM lamotrigine 100 mg Tablet 100 mg PO TID bupropion HCl 150 mg Tablet Extended Release 24 Hr 150 mg PO QAM eszopiclone 3 mg tablet 3 mg PO BEDTIME olanzapine 5 mg tablet 5 mg PO BEDTIME hydralazine 25 mg Tablet 25 mg PO Q8H melatonin 5 mg Tablet 10 mg PO BEDTIME insulin aspart U-100 [Novolog FlexPen U-100 Insulin] 100 unit/mL (3 mL) insulin pen See Rx Instructions .ROUTE .COMPLEX Qty: 15 0RF Rx Instructions: Inject, subcut, 3 times daily, after meals, based on sliding scale provided Changed insulin glargine [Lantus Solostar U-100 Insulin] 100 unit/mL (3 mL) insulin pen 10 unit SUBCUT DAILY Qty: 15 0RF Discontinued amlodipine 10 mg tablet 10 mg PO DAILY Discharge Orders: Discharge Order (Routine); Ordered 09/07/24 Ordered By: Raad Chung Other Ambulatory Orders: DME: Oxygen (Order) Location: None Selected Ordered By: Raad Chung Referrals: Benigno Jennings DO [Primary Care Provider] - Enrike Orta MD [Physician] - 7-10 days (We have notified your physician's clinic of the need for a follow-up appointment to be scheduled. If you have not heard from them within the next 2 business days, please call them directly. ) Natividad Beyer MD, DO [Physician] - Nuria Bassett MD [Physician] - 1-3 days (We have notified your physician's clinic of the need for a follow-up appointment to be scheduled. If you have not heard from them within the next 2 business days, please call them directly. ) Mary Gage MD [Referring] - 1 week Discharge Diet: Cardiac Discharge Activity: Resume usual activity Patient Instructions: Furosemide (By mouth), Amoxicillin/Clavulanate Potassium (By mouth), Acute Kidney Injury (GEN), CHF Stoplight, Opioid Safety Activity Restrictions/Additional Instructions: -Take Lasix 40 mg daily with potassium replacement therapy -Recheck creatinine in 48 hours -Creatinine discharge is 2.9 -Patient needs to follow-up with nephrology -Please monitor your blood sugars closely -Monitor your blood sugars 3 times daily as after meals -Please record your blood sugars, and a blood sugar log -For your NovoLog -Please inject blood sugar after meals based on sliding scale provided -Do not inject insulin if you do not eat as hypoglycemia kills -This is a NovoLog sliding scale -Insulin sliding ?fingerstick? Insulin ?141-180?0 units/sq 181-220?2 units/sq ?221-260?4 units/sq ?261-300 6 units/sq ?301-350?8 units/sq ?351-400 10 units/sq ?401-450?12 units/sq >450? 14units/sq -If your blood sugar is greater than 500 go to the emergency room -If your blood sugar is less than 60 or at anytime you feel lightheaded or dizzy or diaphoretic or have chest palpitations check your blood sugar, and eat a hard candy or drink orange juice and go immediately to the emergency room -Remember hypoglycemia kills, so if his blood sugar is less than 60 we have to increase it by taking in a sugary meal such as a hard candy or orange juice and go to the emergency room -If you have any questions please call us where here to help -Acute on chronic anemia follow-up with general surgery in 1 month for consideration of EGD -repeat cbc in 48 hours Discharge Attestations Time Spent in Discharge Care*: greater than 30 min Status at Discharge: Cognitive status at discharge: cognitively intact, Behavioral status at discharge: cooperative, Quality Metrics Clinical Quality Measures [ No reported AMI, CVA or VTE this stay] Coding Level of Care Code 06625 Total time (in minutes) for Discharge: 45 Diagnoses DELORIS (acute kidney injury) N17.9
[2024-09-07 11:27] LABS: Glucose Point of Care 236 mg/dL (70-110)
[2024-09-07] MEDS: sodium chloride 0.9% 100 mL Bag 50 ML IV (11:29)
[2024-09-07] MEDS: cloNIDine 0.1 mg Tablet PO (14:51)
[2024-09-07 17:00] LABS: Glucose Point of Care 277 mg/dL (70-110)
== END 2024-09-07 18:35 | disposition intermediate care facility (04) | DRG 291 ==
LOC: ER 18:03 → ICU 18:13 → MEDSURG 09-03 15:09
PROVIDERS: Internal Medicine; Internal Medicine Nephrology; Admitting Provider Family Medicine; Emergency Provider Emergency Medicine; PCP Family Medicine; Visit Provider Family Medicine
DX: I13.0 Hypertensive heart and chronic kidney disease with heart failure and stage 1 through stage 4 chronic kidney disease, or unspecified chronic kidney disease (principal); I50.43 Acute on chronic combined systolic (congestive) and diastolic (congestive) heart failure; J96.02 Acute respiratory failure with hypercapnia; J96.01 Acute respiratory failure with hypoxia; J18.9 Pneumonia, unspecified organism; N17.9 Acute kidney failure, unspecified; J44.0 Chronic obstructive pulmonary disease with (acute) lower respiratory infection; G93.40 Encephalopathy, unspecified; E87.4 Mixed disorder of acid-base balance; E11.22 Type 2 diabetes mellitus with diabetic chronic kidney disease; E11.65 Type 2 diabetes mellitus with hyperglycemia; N18.9 Chronic kidney disease, unspecified; F41.9 Anxiety disorder, unspecified; F32.A Depression, unspecified; F22 Delusional disorders; G47.33 Obstructive sleep apnea (adult) (pediatric); E87.5 Hyperkalemia; D64.9 Anemia, unspecified; E78.2 Mixed hyperlipidemia; R45.1 Restlessness and agitation; I05.0 Rheumatic mitral stenosis; Z86.73 Personal history of transient ischemic attack (TIA), and cerebral infarction without residual deficits; Z87.891 Personal history of nicotine dependence; Z79.84 Long term (current) use of oral hypoglycemic drugs; Z79.4 Long term (current) use of insulin; Z79.02 Long term (current) use of antithrombotics/antiplatelets
CPT/HCPCS: 36415; 36416; 36430; 36573; 36592; 36600; 51702; 70450; 71045; 71250; 74176; 80048; 80051; 80053; 80061; 81001; 82140; 82306; 82330; 82436; 82570; 82803; 82805; 82962; 83036; 83605; 83615; 83735; 83880; 84100; 84133; 84145; 84300; 84443; 84484; 84550; 85025; 85610; 86140; 86850; 86900; 86920; 87040; 87486; 87581; 87633; 92507; 92523; 92526; 92610; 93005; 94640; 94660; 94760; 96372; 96374; 96376; 97110; 97161; 97166; 97530; 97535; 99291; J0360; J0612; J1630; J1650; J1815; J1940; J2060; J2270; J2405; J2470; J2543; J2919; J3370; J7070; J7512; J7626; J7799; P9016; P9046; Q3014

== ENCOUNTER 2024-09-14 06:24 | Inpatient (IN) | payer MEDICARE, SELFPAY ==
[2024-09-14] VITALS (67 sets, daily range): BP systolic 124–179; BP diastolic 50–109; PULSE 60–87; RESP 13–40; TEMP 36.3–37.3; O2SAT 85–100; BMI 45.7; BMI 46.5
--- NOTE | 2024-09-14 06:29 | XRR_ITS ---
PROCEDURE INFORMATION: Exam: XR Chest Exam date and time: 09/14/2024 6:45 AM Age: 64 years old Clinical indication: Cough; Prior surgery; Surgery date: 6+ months; Patient HX: Pacemaker, ; additional info: Dyspnea/cough, high BP TECHNIQUE: Imaging protocol: Radiologic exam of the chest. Views: 1 view. COMPARISON: CR XR chest 1V portable [id number] 09/01/2024 1:06 PM FINDINGS: Tubes, catheters and devices: Two lead pacemaker/defibrillator. Lungs: Poor inspiratory effort with hypoventilatory changes in each lower lobe. Pleural spaces: Unremarkable. No pleural effusion. No pneumothorax. Heart/Mediastinum: See Vasculature finding. Vasculature: Borderline cardiomegaly and uncoiling of the thoracic aorta is accentuated by the AP positioning. Bones/joints: Unremarkable. XR/XR chest 1V portable [id number] IMPRESSION: No acute cardiopulmonary disease.
--- NOTE | 2024-09-14 06:32 | ECG_ITS ---
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 Measurements Intervals [place] Rate: 73 P: 45 TN: 179 QRS: -37 QRSD: 134 T: 21 QT: 420 QTc: 463 Interpretive Statements ELECTRONIC ATRIAL PACEMAKER LEFT AXIS DEVIATION [QRS AXIS < -30] INTRAVENTRICULAR CONDUCTION DELAY [130+ ms QRS DURATION] LEFT VENTRICULAR HYPERTROPHY AND ST-T CHANGE [VOLTAGE CRITERIA PLUS ST/T ABNORMALITY] LATERAL MYOCARDIAL INFARCTION , PROBABLY OLD [40+ ms Q WAVE AND/OR ST/T ABNORMALITY IN I/aVL/V5/V6] Compared to ECG 08/31/2024 00:00:56 Left ventricular hypertrophy now present ST (T wave) deviation now present Myocardial infarct finding still present Electronically Signed On 09-16-2024 11:25:12 NIGHT STOCKER by Miguel Zimmer M.D. [email or web address]
[2024-09-14 06:40] LABS: Basophils # 0.1 10^3/uL (0.0-0.1); Basophils % 0.4 %; Eosinophils # 0.4 10^3/uL (0.0-0.8); Eosinophils % 3.1 %; Hematocrit 28.2 % (36-47); Lymphocytes # 0.6 10^3/uL (0.8-4.8); Lymphocytes % 4.4 %; Mean Corpuscular HGB Conc 29.4 g/dL (30-55); Mean Corpuscular Hemoglobin 27.8 pg (27-33); Mean Corpuscular Volume 94.3 fl (85-98); Mean Platelet Volume 10.8 fL (7.4-10.4); Monocytes # 0.8 10^3/uL (0.2-0.9); Monocytes % 5.7 %; Neutrophils # 11.83 10^3/uL (1.8-7.7); Nucleated Red Blood Cells % 0 %; Platelet Count 198 10^3/cmm (157-399); Red Blood Count 2.99 10^6/uL (3.85-5.65); Red Cell Distribution Width 15.7 % (12.1-15.1); White Blood Count 13.76 10^3/uL (3.29-11.43)
[2024-09-14 06:53] LABS: Alanine Aminotransferase 10 U/L (0-33); Albumin Level 3.3 g/dL (3.5-5.2); Alkaline Phosphatase 81 U/L (35-105); Anion Gap 12.8 (5-19); Aspartate Amino Transferase 9 U/L (0-32); Blood Urea Nitrogen 39 mg/dL (8-23); Calcium 8.5 mg/dL (8.5-10.5); Carbon Dioxide 32 mmol/L (22-29); Chloride 101 mmol/L (98-107); Creatinine Clr Calc Pharmacy 35.9296; Globulin 2.1 g/dL (1.3-4.6); Glomerular Filtration Rate 23.7 mL/min (90-130); Glucose 355 mg/dL (65-115); Osmolality Calculated 318 mOsm/kg (285-295); Potassium 3.8 mmol/L (3.5-5.1); Sodium 142 mmol/L (136-145); Total Bilirubin 0.4 mg/dL (0.15-1.2); Total Protein 5.4 g/dL (6.6-8.7)
--- NOTE | 2024-09-14 07:01 | CTR_ITS ---
PROCEDURE INFORMATION: Exam: CT Head Without Contrast Exam date and time: 09/14/2024 7:15 AM Age: 64 years old Clinical indication: Altered mental status/memory loss TECHNIQUE: Imaging protocol: Computed tomography of the head without contrast. Radiation optimization: All CT scans at this facility use at least one of these dose optimization techniques: automated exposure control; mA and/or kV adjustment per patient size (includes targeted exams where dose is matched to clinical indication); or iterative reconstruction. COMPARISON: CT head wo con* [id number] 08/30/2024 6:21 PM RADIATION DOSE METRICS: Total DLP (mGy-cm): 1114.24 FINDINGS: Brain: Stable encephalomalacia in a left MCA distribution. Periventricular white matter lucency represents atherosclerotic encephalopathic changes. Old right cerebellar infarct. Cerebral ventricles: No ventriculomegaly. Ventricular prominence disproportionate to the degree of atrophy present. Cavum septum pellucidum present. Paranasal sinuses: Visualized sinuses are unremarkable. No fluid levels. Mastoid air cells: Visualized mastoid air cells are well aerated. Bones: Unremarkable. No acute fracture. Soft tissues: Unremarkable. CT/CT head wo con* [id number] IMPRESSION: No acute intracranial abnormality. Old infarcts.
--- NOTE | 2024-09-14 07:02 | ED_ITS ---
HPI - SOB/Dyspnea 2 General: Chief Complaint: Shortness of Breath/Dyspnea Stated Complaint: SOB Time Seen by Provider: 09/14/24 06:28 History of Present Illness: HPI Narrative: 64-year-old female presents to the [facility] ency room complaining of shortness of breath began evidently this morning EMS reported her O2 sat on room air was in the 80s. She was picked up from home. I cannot get her to really provide any history. She is very confused she states she is just here she will give me the name of where here is she has kind of word salad. Response to all questions nothing that is really particularly helpful. She denies chest or abdominal pain but uncertain she even really understands the questions. Related Data Home Medications Medication Instructions Recorded Confirmed clopidogrel 75 mg tablet 75 mg PO DAILY 07/08/20 09/14/24 metoprolol tartrate 25 mg tablet 37.5 mg PO BID 07/08/20 09/14/24 acetaminophen 325 mg tablet 650 mg PO Q6H PRN PAIN OR ELEVATED 10/03/21 09/14/24 (Tylenol) TEMP atorvastatin 40 mg tablet 40 mg PO BEDTIME 10/03/21 09/14/24 calcium carbonate 500 mg PO Q8H PRN 10/03/21 09/14/24 gastro-esophageal reflux cetirizine 10 mg tablet 10 mg PO DAILY 10/03/21 09/14/24 magnesium hydroxide 400 mg/5 mL 30 ml PO DAILY PRN Constipation 10/03/21 09/14/24 oral suspension (Milk of Magnesia) omeprazole 20 mg capsule,delayed 20 mg PO DAILY 10/03/21 09/14/24 release ascorbic acid (vitamin C) 500 mg 500 mg PO DAILY 03/03/24 09/14/24 tablet (Vitamin C) diphenhydramine HCl 25 mg capsule 25 mg PO Q12H PRN Allergy Symptoms 03/03/24 09/14/24 (Banophen) fluticasone propionate 50 1 spray intranasal Q12H PRN 03/03/24 09/14/24 mcg/actuation nasal ALLERGIES spray,suspension lidocaine 5 % topical patch 1 patch topical Q12H PRN Pain 03/03/24 09/14/24 ondansetron HCl 4 mg tablet 4 mg PO Q6H PRN Nausea And Vomiting 03/03/24 09/14/24 bupropion HCl 150 mg 24 hr tablet, 150 mg PO QAM 07/16/24 09/14/24 extended release eszopiclone 3 mg tablet 3 mg PO BEDTIME 07/16/24 09/14/24 lamotrigine 100 mg tablet 100 mg PO TID 07/16/24 09/14/24 risperidone 1 mg tablet 1 mg PO QAM 07/16/24 09/14/24 hydralazine 25 mg tablet 25 mg PO Q8H 08/30/24 09/14/24 melatonin 5 mg tablet 10 mg PO BEDTIME 08/30/24 09/14/24 olanzapine 5 mg tablet 5 mg PO BEDTIME 08/30/24 09/14/24 Previous Rx's Medication Instructions Recorded allopurinol 300 mg tablet 300 mg PO DAILY #90 tabs 05/03/20 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 meter,continuous #1 ea 03/12/23 (Dexcom G7 Filling Station Laborer) 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 sensor (Dexcom G7 #1 ea 03/12/23 Sensor device) tramadol 50 mg tablet 50 mg PO Q6H PRN pain #120 tabs 11/18/23 clonidine HCl 0.1 mg tablet 0.1 mg PO BID 30 days #60 tabs 09/07/24 furosemide 40 mg tablet (Lasix) 40 mg PO DAILY 30 days #30 tabs 09/07/24 insulin aspart U-100 100 unit/mL See Rx Instructions .Route 09/07/24 (3 mL) subcutaneous pen (Novolog .COMPLEX #15 mL FlexPen U-100 Insulin aspart) insulin glargine 100 unit/mL (3 10 unit (0.1 mL) SUBCUT DAILY #15 09/07/24 mL) subcutaneous pen (Lantus mL Solostar U-100 Insulin) pantoprazole 40 mg tablet,delayed 40 mg PO BID 30 days #60 tabs 09/07/24 release (Protonix) potassium chloride 20 mEq 20 meq PO DAILY 30 days #30 tabs 09/07/24 tablet,extended release(part/cryst) (Klor-Con M) sucralfate 100 mg/mL oral 1 g (10 mL) PO Q6H 30 days #1,200 09/07/24 suspension mL Allergies Allergy/AdvReac Type Severity Reaction Status Date / Time clarithromycin [From Biaxin] Allergy nausea Verified 09/14/24 06:32 clindamycin Allergy shock Verified 09/14/24 06:32 diclofenac Allergy swelling Verified 09/14/24 06:32 enalapril Allergy unknown Verified 09/14/24 06:32 ketorolac [From Toradol] Allergy short of Verified 09/14/24 06:32 breath losartan [From Cozaar] Allergy shock Verified 09/14/24 06:32 nifedipine [From Procardia] Allergy hives Verified 09/14/24 06:32 pregabalin [From Lyrica] Allergy unknown Verified 09/14/24 06:32 Sulfa (Sulfonamide Allergy anaphylasix Verified 09/14/24 06:32 Antibiotics) Review of Systems 2 General: Reports: ROS unobtainable due to medical condition and ROS unobtainable due to mental status PFSH ED 2 PFSH: Medical History DELORIS (acute kidney injury) Altered mental status Paranoid Expressive aphasia Anxiety and depression Lives in assisted living facility Rotator cuff tear, right Diabetes mellitus insulin dependent Essential (primary) hypertension Depression due to cerebrovascular accident (CVA) Expressive aphasia Hypomagnesemia Bilateral pneumonia Hyponatremia Hyperkalemia Right humeral fracture Metabolic encephalopathy Resolved Acute delirium Resolved Pneumonia due to COVID-19 virus Resolved Poor social situation Multinodular thyroid Acute embolic stroke Recurrent falls Resolved History of CVA (cerebrovascular accident) Acute hypersomnolence disorder LEROY on CPAP Essential hypertension [place]ern[place]ke dysphasia Diabetes mellitus with neuropathy Mixed hyperlipidemia Surgical History History of nasal sinusotomy History of cholecystectomy History of tonsillectomy History of repair of rotator cuff History of hysterectomy for indication other than malignancy History of bursectomy Hx of adenoidectomy Status post anal fissurectomy History of colonoscopy Family History Mother CAD (coronary artery disease) Other Asthma Cancer Diabetes Heart disease Hypertension Stroke Social History Smoking and tobacco/nicotine status: former use of tobacco/nicotine Alcohol intake: current Alcohol intake frequency: few times a month Substance/Drug Use: never Physical Exam 2 Const: ORIENTATION/CONSCIOUSNESS: Yes awake HENMT: COMMON NORMALS: normocephalic, atraumatic and hearing grossly normal bilaterally HEAD & SCALP: normocephalic and atraumatic Cardio: COMMON NORMALS: regular rate, regular rhythm and No murmurs present (Cardio) RATE: regular rate RHYTHM: regular rhythm GI: COMMON NORMALS: Soft to palpation and No hepatosplenomegaly present A USCULTATION: Yes normoactive bowel sounds PALPATION: Yes Soft to palpation, No Tenderness to palpation present (GI), No Guarding due to palpation present (GI) and Yes No hepatosplenomegaly present Extremity: COMMON NORMALS: normal to inspection, capillary refill normal, no clubbing, cyanosis or edema, no calf tenderness and no pedal edema Skin: COMMON NORMALS: no rashes or lesions noted GENERAL SKIN EXAM: no rashes or lesions noted Course 2 Vital Signs: Vital signs: Vital Signs Temperature 98.4 F 09/14/24 06:24 Pulse Rate 75 09/14/24 13:49 Respiratory Rate 18 09/14/24 12:00 Blood Pressure 160/66 09/14/24 13:49 Pulse Oximetry 96 09/14/24 13:49 Oxygen Delivery Me thod Nasal Cannula 09/14/24 08:38 Oxygen Flow Rate 2 09/14/24 08:38 Fraction of Inspir ed Oxygen 35 09/14/24 11:15 MDM - SOB/Dyspnea Medical Decision Making Patient encephalopathic she does have some difficulty word formation due to previous stroke this does seem to be acute however. She has chronic anemia chronic kidney disease. Her D-dimer is elevated there is no clear pneumonia on her x-ray but her breath sounds are abnormal particularly at the right base. Started on IV antibiotics prophylactically because the elevated white count. She may need a CTA of the chest the D dimer was slightly elevated but corrects for age venous duplex of the lower extremities is negative. Will admit started on IV antibiotics prophylactically clinically suspect she may have a pneumonia. Discussed with hospitalist orders written Lab Data 09/14/24 06:00 09/14/24 06:00 Labs/Radiology: Radiology Impressions Chest X-Ray 09/14/24 06:29 IMPRESSION: No acute cardiopulmonary disease. Head CT 09/14/24 07:01 IMPRESSION: No acute intracranial abnormality. Old infarcts. Laboratory Results WBC 13.76 10^3/uL (3.29-11.43) H 09/14/24 06:00 RBC 2.99 10^6/uL (3.85-5.65) L 09/14/24 06:00 Hgb 8.30 g/dL (11.27-16.99) L 09/14/24 06:00 Hct 28.2 % (36-47) L 09/14/24 06:00 MCV 94.3 fl (85-98) 09/14/24 06:00 MCH 27.8 pg (27-33) 09/14/24 06:00 MCHC 29.4 g/dL (30-55) L 09/14/24 06:00 RDW 15.7 % (12.1-15.1) H 09/14/24 06:00 Plt Count 198 10^3/cmm (157-399) 09/14/24 06:00 MPV 10.8 fL (7.4-10.4) H 09/14/24 06:00 Neut % (Auto) 86.0 % 09/14/24 06:00 Lymph % (Auto) 4.4 % 09/14/24 06:00 Barry % (Auto) 5.7 % 09/14/24 06:00 Eos % (Auto) 3.1 % 09/14/24 06:00 Baso % (Auto) 0.4 % 09/14/24 06:00 Neut # (Auto) 11.83 10^3/uL (1.8-7.7) H 09/14/24 06:00 Lymph # (Auto) 0.6 10^3/uL (0.8-4.8) L 09/14/24 06:00 Barry # (Auto) 0.8 10^3/uL (0.2-0.9) 09/14/24 06:00 Eos # (Auto) 0.4 10^3/uL (0.0-0.8) 09/14/24 06:00 Baso # (Auto) 0.1 10^3/uL (0.0-0.1) 09/14/24 06:00 Nucleated RBC % (auto) 0 % 09/14/24 06:00 Nucleated RBCs # 0.0 /100WBC 09/14/24 06:00 D-Dimer 1.11 ug/mLFEU (0-0.59) H 09/14/24 06:00 Specimen Type Arterial 09/14/24 10:46 Sample Site Radial, left 09/14/24 10:46 ABG pH 7.30 (7.35-7.45) L 09/14/24 10:46 ABG pCO2 68.1 mmHg (35-45) H* 09/14/24 10:46 ABG pO2 76.3 mmHg (80.0-100.0) L 09/14/24 10:46 ABG HCO3 33.5 mmol/L (22-26) H 09/14/24 10:46 ABG O2 Saturation 95.1 09/14/24 10:46 ABG Base Excess 5.7 mmol/L (-2.0-2.0) H 09/14/24 10:46 Thien Test Pos 09/14/24 10:46 A-a O2 Gradient Not Reportable 09/14/24 10:46 Hematocrit 29.4 % (37-47) L 09/14/24 10:46 Hgb O2 Saturation 92.1 % (95-100) L 09/14/24 10:46 Carboxyhemoglobin 1.8 %THgb (0.4-20.1) 09/14/24 10:46 Methemoglobin 1.3 % (0.4-1.5) 09/14/24 10:46 Total Hemoglobin 9.6 g/dL (12-16) L 09/14/24 10:46 Sodium 146.0 mmol/L (131-143) H 09/14/24 10:46 Potassium 3.9 mmol/L (3.5-5.0) 09/14/24 10:46 Glucose 388.0 mg/dL (70-115) H 09/14/24 10:46 Ionized Calcium 1.2 mmol/L (1.1-1.4) 09/14/24 10:46 O2 Delivery Device Nc 09/14/24 10:46 O2 Liters/Min 4.0 % 09/14/24 10:46 Money Examiner ID [place] 09/14/24 10:46 Sodium 142 mmol/L (136-145) 09/14/24 06:00 Potassium 3.8 mmol/L (3.5-5.1) 09/14/24 06:00 Chloride 101 mmol/L (98-107) 09/14/24 06:00 Carbon Dioxide 32 mmol/L (22-29) H 09/14/24 06:00 Anion Gap 12.8 (5-19) 09/14/24 06:00 BUN 39 mg/dL (8-23) H 09/14/24 06:00 Creatinine 2.1 mg/dL (0.5-0.9) H 09/14/24 06:00 GFR Calculation 23.7 mL/min (90-130) L 09/14/24 06:00 Glucose 355 mg/dL (65-115) H 09/14/24 06:00 Calculated Osmolality 318 mOsm/kg (285-295) H 09/14/24 06:00 Lactic Acid 0.9 mmol/L (0.5-2.2) 09/14/24 06:00 Calcium 8.5 mg/dL (8.5-10.5) 09/14/24 06:00 Total Bilirubin 0.4 mg/dL (0.15-1.2) 09/14/24 06:00 AST 9 U/L (0-32) 09/14/24 06:00 ALT 10 U/L (0-33) 09/14/24 06:00 Alkaline Phosphatase 81 U/L (35-105) 09/14/24 06:00 Troponin T Baseline 107 ng/L (0-10) H* 09/14/24 06:00 Troponin T 120 Minute 103.2 ng/L (0-10) H 09/14/24 08:20 Delta Troponin T -3.8 ABS# (0-10) L 09/14/24 08:20 Total Protein 5.4 g/dL (6.6-8.7) L 09/14/24 06:00 Albumin 3.3 g/dL (3.5-5.2) L 09/14/24 06:00 Globulin 2.1 g/dL (1.3-4.6) 09/14/24 06:00 Urine Color Yellow (Yellow) 09/14/24 08:00 Urine Appearance Cloudy (CLEAR) A 09/14/24 08:00 Urine pH 5.5 (5-7) 09/14/24 08:00 Ur Specific [place] 1.024 (1.005-1.030) 09/14/24 08:00 Urine Protein 4+ (Negative) A 09/14/24 08:00 Urine Glucose (UA) 1+ (Normal) H 09/14/24 08:00 Urine Ketones Trace (Negative) 09/14/24 08:00 Urine Blood Negative (Negative) 09/14/24 08:00 Urine Nitrate Negative (Negative) 09/14/24 08:00 Urine Bilirubin Negative (Negative) 09/14/24 08:00 Urine Urobilinogen 0.2 mg/dL (Negative) 09/14/24 08:00 Ur Leukocyte Esterase Negative (Negative) 09/14/24 08:00 Urine RBC 0-2 /hpf (0-2) 09/14/24 08:00 Urine WBC 0-5 /hpf (0-5) 09/14/24 08:00 Ur Squamous Epith Cells 0-5 /hpf (0-5) 09/14/24 08:00 Amorphous Sediment Not Reportable 09/14/24 08:00 Urine Bacteria 3+ /hpf (NONE) H 09/14/24 08:00 Hyaline Casts 75.28 /lpf 09/14/24 08:00 Coronavirus (PCR) Negative (Negative) 09/14/24 08:05 Influenza A (PCR) Negative (Negative) 09/14/24 08:05 Influenza Type B (PCR) Negative (Negative) 09/14/24 08:05 RSV (PCR) Negative (Negative) 09/14/24 08:05 All radiology interpretation(s) finalized by discharge Discharge Plan Discharge Patient Disposition: Admitted As Inpatient Admit Provider: Gian Echeverria Clinical Impression: Encephalopathy, Anemia, CKD (chronic kidney disease), Hypoxia Condition: Stable Coding Level of Care Code ED Corporation Secretary for Avery Rocha
[2024-09-14 07:04] LABS: ABG PCO2 52.7 mmHg (35-45); ABG PH Result 7.42 (7.35-7.45); Arterial Blood Gas Hematocrit 26.7 % (37-47); Base Excess ABG 8.7 mmol/L (-2.0-2.0); Blood Gas Allen Test Pos; Blood Gas Operator Identificat WALCI; Blood Gas Sample Site Radial, left; Blood Gas Sample Type Arterial; Carboxyhemoglobin 1.8 %THgb (0.4-20.1); HCO3 ABG 34.3 mmol/L (22-26); Ionized Calcium Level - ABG 1.2 mmol/L (1.1-1.4); Oxygen Device NC; Oxygen Saturation ABG 90.5; PO2 ABG 54.6 mmHg (80.0-100.0); Potassium Level - ABG 3.7 mmol/L (3.5-5.0); Total Hemoglobin 8.7 g/dL (12-16)
--- NOTE | 2024-09-14 07:06 | ECG_ITS ---
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 Measurements Intervals [place] Rate: 72 P: 25 KS: 191 QRS: -33 QRSD: 132 T: 21 QT: 414 QTc: 453 Interpretive Statements SINUS RHYTHM LEFT AXIS DEVIATION [QRS AXIS < -30] RIGHT BUNDLE BRANCH BLOCK [120+ ms QRS DURATION, UPRIGHT V1, 40+ ms S IN I/aVL/V4/V5/V6] LEFT VENTRICULAR HYPERTROPHY AND ST-T CHANGE [VOLTAGE CRITERIA PLUS ST/T ABNORMALITY] Compared to ECG 09/14/2024 06:32:43 Right bundle-branch block now present Atrial-paced complex(es) or rhythm no longer present Intraventricular conduction delay no longer present Myocardial infarct finding no longer present ST (T wave) deviation still present Electronically Signed On 09-16-2024 11:25:03 BOW MAKER CUSTOM by Miguel Zimmer M.D. [id number]
--- NOTE | 2024-09-14 07:09 | PC.NURSE ---
rounded on pt; pt is still uncooperative at this time. asked pt if she knew where she was and she didnt answer, asked what her name was and she states 'i dont know and dont really care, asked and pt states 'seven seven'.
[2024-09-14 07:19] LABS: Lactic Sepsis W/Reflex 0.9 mmol/L (0.5-2.2)
[2024-09-14 07:21] LABS: Troponin(5th) Baseline 107 ng/L (0-10)
[2024-09-14] MEDS: methylPREDNISolone sod succ 125 mg/2 mL INJ IVP (07:40)
[2024-09-14] MEDS: ipratropium-albuterol 3 mL Neb INHALATION ×3 (08:40→20:01)
[2024-09-14 08:49] LABS: D Dimer 1.11 ug/mLFEU (0-0.59)
[2024-09-14 08:54] LABS: Troponin 5 2HR 103.2 ng/L (0-10); Troponin 5 2HR Delta -3.8 ABS# (0-10)
--- NOTE | 2024-09-14 09:02 | ECG_ITS ---
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 Measurements Intervals [place] Rate: 73 P: 1 NC: 196 QRS: -35 QRSD: 151 T: 56 QT: 442 QTc: 490 Interpretive Statements SINUS RHYTHM WITH SINUS ARRHYTHMIA LEFT AXIS DEVIATION [QRS AXIS < -30] INTRAVENTRICULAR CONDUCTION DELAY [130+ ms QRS DURATION] LEFT VENTRICULAR HYPERTROPHY AND ST-T CHANGE [VOLTAGE CRITERIA PLUS ST/T ABNORMALITY] LATERAL MYOCARDIAL INFARCTION , PROBABLY OLD [40+ ms Q WAVE AND/OR ST/T ABNORMALITY IN I/aVL/V5/V6] Compared to ECG 09/14/2024 07:06:31 Intraventricular conduction delay now present Myocardial infarct finding now present Right bundle-branch block no longer present ST (T wave) deviation still present Electronically Signed On 09-18-2024 13:49:29 DENTAL MECHANIC by Miguel Zimmer M.D. [id number]
--- NOTE | 2024-09-14 09:14 | PC.PHAR ---
patient was released from [facility] back on the with new meds and all other verified with facility she was in at the time. med list completed off that along with what patient could tell me
[2024-09-14 09:16] LABS: Bilirubin Urine Negative (Negative); Blood Urine Negative (Negative); Glucose Urine UA 1+ (Normal); Ketones Urine Trace (Negative); Leukocyte Esterase Urine Negative (Negative); Nitrate Urine Negative (Negative); Protein Urine 4+ (Negative); Specific Gravity, Urine 1.024 (1.005-1.030); Urine Appearance Cloudy (CLEAR); Urine Color Yellow (Yellow); Urobilinogen Urine 0.2 mg/dL (Negative); pH Urine 5.5 (5-7)
[2024-09-14 09:21] LABS: Add Urine Microscopic? YES; Bacteria Urine 3+ /hpf; Hyaline Casts Urine 75.28 /lpf; RBC Urine 0-2 /hpf (0-2); Squamous Epithelial Cell Urine 0-5 /hpf (0-5); WBC Urine 0-5 /hpf (0-5)
--- NOTE | 2024-09-14 09:24 | USCV_ITS ---
Hilda Wallace Age: 64 Gender: F : 1960 Exam Date: 09/14/2024 09:53 Ordering Phys: Cirilo Rivera DO Technologist: [place] [facility] [place]: PROCEDURES: The venous duplex Doppler examination of both lower extremities was performed in the standard fashion. Bilaterally, the common femoral, superficial femoral, profunda femoral, popliteal, posterior tibial, greater saphenous veins, and the peroneal trunk were identified and interrogated in the standard fashion. These veins were found to be easily compressible with spontaneous blood flow. No evidence of insufficiency or thrombus noted. FINDINGS: no dvt CONCLUSIONS No evidence of right lower extremity DVT. No evidence of left lower extremity DVT. Bulmaro Longo MD (Electronically Signed) Final Date: 14 September 2024 16:52 S
[2024-09-14 09:28] LABS: UA Slide Review UA Slide Review Perf
[2024-09-14 09:52] LABS: Influenza A NEGATIVE (Negative); Influenza B NEGATIVE (Negative); Respiratory Syncytial Virus Ce NEGATIVE (Negative); SARS-CoV-2 PCR NEGATIVE (Negative)
[2024-09-14 10:57] LABS: ABG PCO2 68.1 mmHg (35-45); Arterial Blood Gas Hematocrit 29.4 % (37-47); Base Excess ABG 5.7 mmol/L (-2.0-2.0); Blood Gas Allen Test Pos; Blood Gas Operator Identificat WALCI; Blood Gas Sample Site Radial, left; Blood Gas Sample Type Arterial; Carboxyhemoglobin 1.8 %THgb (0.4-20.1); HCO3 ABG 33.5 mmol/L (22-26); HGB O2 Sat 92.1 % (95-100); Ionized Calcium Level - ABG 1.2 mmol/L (1.1-1.4); Methemoglobin 1.3 % (0.4-1.5); Oxygen Device NC; Oxygen Saturation ABG 95.1; PO2 ABG 76.3 mmHg (80.0-100.0); Potassium Level - ABG 3.9 mmol/L (3.5-5.0); Total Hemoglobin 9.6 g/dL (12-16)
--- NOTE | 2024-09-14 11:11 | PM.HP ---
Providers/Chief Complaint Admitting Physician: Gian Echeverria Primary Care Provider: Benigno Jennings DO Chief Complaint: SOB History of Present Illness 64-year-old lady, [place] resident with history of LEROY, morbid obesity, CVA, HTN, HLD, former smoker, recently hospitalized with acute hypoxic respiratory failure with COPD exacerbation, CHF decompensation and possible pneumonia. At that time also with altered mental status and noted chronic anemia, discharged on 09/07 after adjustment of medications. Was brought into ER for assessment due to shortness of breath, with low oxygen saturations in the 80s this morning, confusion with altered mental status. In ER with leukocytosis 13.5, afebrile, but with abnormal breath sounds particular left lower quadrant. D-dimer abnormal 1.11. Chronic anemia, recently worsened, prior admission 7.5, currently hemoglobin 8.3. In ER with gradually worsening lethargy, worsening ABG with further buildup of carbon oxide, with respiratory acidosis having to started on BiPAP. Review of Systems General: Reports: ROS unobtainable due to mental status Medications/Allergies Home Medications Medication Instructions Recorded Confirmed Last Taken Type allopurinol 300 mg tablet 300 mg PO DAILY #90 tabs 05/03/20 09/14/24 08/29/24 Rx clopidogrel 75 mg tablet 75 mg PO DAILY 07/08/20 09/14/24 08/29/24 History metoprolol tartrate 25 mg tablet 37.5 mg PO BID 07/08/20 09/14/24 08/29/24 History acetaminophen 325 mg tablet 650 mg PO Q6H PRN PAIN OR ELEVATED 10/03/21 09/14/24 01/15/24 History (Tylenol) TEMP atorvastatin 40 mg tablet 40 mg PO BEDTIME 10/03/21 09/14/24 08/28/24 History calcium carbonate 500 mg PO Q8H PRN 10/03/21 09/14/24 03/02/24 History gastro-esophageal reflux cetirizine 10 mg tablet 10 mg PO DAILY 10/03/21 09/14/24 08/29/24 History magnesium hydroxide 400 mg/5 mL 30 ml PO DAILY PRN Constipation 10/03/21 09/14/24 Unknown History oral suspension (Milk of Magnesia) omeprazole 20 mg capsule,delayed 20 mg PO DAILY 10/03/21 09/14/2408/29/25 History release 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 meter,continuous #1 ea 03/12/23 09/14/24 Unknown Rx (Dexcom G7 [employer]) 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 sensor (Dexcom G7 #1 ea 03/12/23 09/14/24 Unknown Rx Sensor device) tramadol 50 mg tablet 50 mg PO Q6H PRN pain #120 tabs 11/18/23 09/14/24 08/25/24 Rx ascorbic acid (vitamin C) 500 mg 500 mg PO DAILY 03/03/24 09/14/24 08/29/24 History tablet (Vitamin C) diphenhydramine HCl 25 mg capsule 25 mg PO Q12H PRN Allergy Symptoms 03/03/24 09/14/24 03/02/24 History (Banophen) fluticasone propionate 50 1 spray intranasal Q12H PRN 03/03/24 09/14/24 Unknown History mcg/actuation nasal ALLERGIES spray,suspension lidocaine 5 % topical patch 1 patch topical Q12H PRN Pain 03/03/24 09/14/24 Unknown History ondansetron HCl 4 mg tablet 4 mg PO Q6H PRN Nausea And Vomiting 03/03/24 09/14/24 Unknown History bupropion HCl 150 mg 24 hr tablet, 150 mg PO QAM 07/16/24 09/14/24 08/29/24 History extended release eszopiclone 3 mg tablet 3 mg PO BEDTIME 07/16/24 09/14/24 08/28/24 History lamotrigine 100 mg tablet 100 mg PO TID 07/16/24 09/14/24 08/30/24 History risperidone 1 mg tablet 1 mg PO QAM 07/16/24 09/14/24 08/29/24 History hydralazine 25 mg tablet 25 mg PO Q8H 08/30/24 09/14/24 08/29/24 History melatonin 5 mg tablet 10 mg PO BEDTIME 08/30/24 09/14/24 08/28/24 History olanzapine 5 mg tablet 5 mg PO BEDTIME 08/30/24 09/14/24 08/28/24 History clonidine HCl 0.1 mg tablet 0.1 mg PO BID 30 days #60 tabs 09/07/24 09/14/24 Unknown Rx furosemide 40 mg tablet (Lasix) 40 mg PO DAILY 30 days #30 tabs 09/07/24 09/14/24 Unknown Rx insulin aspart U-100 100 unit/mL See Rx Instructions .Route 09/07/24 09/14/24 08/30/24 Rx (3 mL) subcutaneous pen (Novolog .COMPLEX #15 mL FlexPen U-100 Insulin aspart) insulin glargine 100 unit/mL (3 10 unit (0.1 mL) SUBCUT DAILY #15 09/07/24 09/14/24 08/29/24 Rx mL) subcutaneous pen (Lantus mL Solostar U-100 Insulin) pantoprazole 40 mg tablet,delayed 40 mg PO BID 30 days #60 tabs 09/07/24 09/14/24 Unknown Rx release (Protonix) potassium chloride 20 mEq 20 meq PO DAILY 30 days #30 tabs 09/07/24 09/14/24 Unknown Rx tablet,extended release(part/cryst) (Klor-Con M) sucralfate 100 mg/mL oral 1 g (10 mL) PO Q6H 30 days #1,200 09/07/24 09/14/24 Unknown Rx suspension mL Allergies Allergy/AdvReac Type Severity Reaction Status Date / Time clarithromycin [From Biaxin] Allergy nausea Verified 09/14/24 06:32 clindamycin Allergy shock Verified 09/14/24 06:32 diclofenac Allergy swelling Verified 09/14/24 06:32 enalapril Allergy unknown Verified 09/14/24 06:32 ketorolac [From Toradol] Allergy short of Verified 09/14/24 06:32 breath losartan [From Cozaar] Allergy shock Verified 09/14/24 06:32 nifedipine [From Procardia] Allergy hives Verified 09/14/24 06:32 pregabalin [From Lyrica] Allergy unknown Verified 09/14/24 06:32 Sulfa (Sulfonamide Allergy anaphylasix Verified 09/14/24 06:32 Antibiotics) PFSH Acute PFSH: Medical History DELORIS (acute kidney injury) Altered mental status Paranoid Expressive aphasia Anxiety and depression Lives in assisted living facility Rotator cuff tear, right Diabetes mellitus insulin dependent Essential (primary) hypertension Depression due to cerebrovascular accident (CVA) Expressive aphasia Hypomagnesemia Bilateral pneumonia Hyponatremia Hyperkalemia Right humeral fracture Metabolic encephalopathy Resolved Acute delirium Resolved Pneumonia due to COVID-19 virus Resolved Poor social situation Multinodular thyroid Acute embolic stroke Recurrent falls Resolved History of CVA (cerebrovascular accident) Acute hypersomnolence disorder LEROY on CPAP Essential hypertension Wernicke dysphasia Diabetes mellitus with neuropathy Mixed hyperlipidemia Surgical History History of nasal sinusotomy History of cholecystectomy History of tonsillectomy History of repair of rotator cuff History of hysterectomy for indication other than malignancy History of bursectomy Hx of adenoidectomy Status post anal fissurectomy History of colonoscopy Family History Mother CAD (coronary artery disease) Other Asthma Cancer Diabetes Heart disease Hypertension Stroke Social History Smoking and tobacco/nicotine status: former use of tobacco/nicotine Alcohol intake: current Alcohol intake frequency: few times a month Substance/Drug Use: never Vitals/I&O/Wt Last Vital Signs Temp 98.4 F 09/14/24 06:24 Pulse 60 09/14/24 10:32 Resp 18 09/14/24 08:38 BP 158/67 09/14/24 10:32 Pulse Ox 90 09/14/24 10:32 O2 Del Method Nasal Cannula 09/14/24 08:38 O2 Flow Rate 2 09/14/24 08:38 09/13/24 09/14/24 09/14/24 22:59 06:59 14:59 Intake Total 0 / 0 Balance 0 / 0 Weight last 48 hrs Weight 124.738 kg Physical Exam Const: GENERAL APPEARANCE: cooperative NUTRITIONAL APPEARANCE: obese morbidly obese ORIENTATION/CONSCIOUSNESS: Yes lethargic HENMT: COMMON NORMALS: oropharynx normal Neck/C-Spine: COMMON NORMALS: no JVD Resp: COMMON NORMALS: normal respiratory effort and clear to auscultation bilaterally AUSCULTATION: wheezes and diminished lung sounds Cardio: COMMON NORMALS: no JVD, regular rhythm, S1 normal heart sound present, S2 normal heart sound present and No murmurs present (Cardio) RHYTHM: regular rhythm HEART SOUNDS: S1 normal heart sound present and S2 normal heart sound present GI: COMMON NORMALS: Normal to inspection, nondistended, normoactive bowel sounds present, Soft to palpation and non-tender PALPATION: Yes Soft to palpation Extremity: COMMON NORMALS: no joint enlargement GENERAL: Yes edema Skin: COMMON NORMALS: no rashes or lesions noted GENERAL SKIN EXAM: no rashes or lesions noted Data 09/14/24 06:00 09/14/24 06:00 Micro: Microbiology 09/14/24 08:20 Blood Culture - Preliminary Blood SPECIMEN COLLECTED 09/14/24 08:18 Blood Culture - Preliminary Blood SPECIMEN COLLECTED A&P Assessment and plan (1) Altered mental status: With acute encephalopathy, possibly related to respiratory failure, hypercapnia, although rapidly was having confusion radiated arrival, reported difficult to understand, also with recent hospitalization with altered mental status. Does have history of CVA. Additionally recent concern for medications affecting mental status. Her psychotropic medications were resumed during last hospitalization per review of chart. Reviewed vitals, CBC, D-dimer, ABG, CMP, troponin, UA, COVID, influenza, RSV PCR, chest x-ray, head CT, EKG. On my interpretation right bundle branch block, LVH, pending official read. Reviewed ER physician note, discussed with ER provider. Currently she is started on BiPAP due to hypercapnic respiratory failure with hypercapnic respiratory acidosis, with COPD exacerbation, as well as CHF decompensation. At current time hold any sedating medications. (2) Respiratory failure: Acute metabolic encephalopathy with hypercapnic respiratory acidosis, with hypercapnic encephalopathy, likely with underlying OHS, with known LEROY, with COPD exacerbation, as well as with decompensated CHF. With hypoxia in ER, question possible aspiration pneumonitis, pneumonia. Elevated D-dimer, cannot rule out PE at current time. Does have lower extremity edema. Venous duplex was obtained, pending interpretation. Treat COPD exacerbation, continue IV steroids, monitor for risk of hypertension, gastritis, hyperglycemia, worsening encephalopathy. Continue BiPAP support, wean down as tolerating. Requesting RT attention to maintain saturation 88-92%. Avoid hyperoxia. With possible aspiration pneumonia will give Zosyn at this time. With acute decompensated diastolic CHF, will give IV diuretics with IV Lasix, monitor intake and output, monitor for risk of electrolyte deficiency, hypokalemia, monitor telemetry with risk of arrhythmia. Reassess chemistry. (3) D-dimer, elevated: D-dimer elevation 1.11, with hypoxia on presentation, did not have chest pain. Does have some moderate troponin elevation with flat trend. Cannot entirely exclude VTE. Lower extremity duplex has been ordered, pending. Currently being started on heparin drip for coverage of possible PE, once mental status is better may at that point be able to assess for VQ scan. CTA avoided due to concern for renal dysfunction. Respiratory viral studies reviewed, negative for COVID, influenza, RSV. Will repeat D-dimer level. (4) Troponin level elevated: Moderate troponin elevation with flat trend so far. Did not have chest pain. EKG on review with LVH, RBBB, pending official read. Complete troponin EKG series. Possibly demand ischemia secondary to respiratory failure. Cannot exclude possible PE, anticoagulated as above. Monitor on telemetry. Echocardiogram back in July with normal ejection fraction, but limited quality with poor ultrasonic windows. (5) Essential hypertension: Will benefit from optimization of hypertension, blood pressure elevated at 158/67. Will resume home medications with clonidine, hydralazine, metoprolol Plan LEROY, morbid obesity, CVA, HTN, HLD, Former smoker, Recently hospitalized with acute hypoxic respiratory failure with COPD exacerbation, CHF decompensation and possible pneumonia Attestations Medical Necessity Statement*: Admission over 2 midnights anticipated for assessment of management of acute encephalopathy, acute respiratory failure, COPD exacerbation, CHF exacerbation, possible aspiration pneumonia. Diagnoses Altered mental status R41.82 Respiratory failure J96.90 D-dimer, elevated R79.89 Troponin level elevated R79.89 Essential hypertension I10
--- NOTE | 2024-09-14 11:35 | PC.NURSE ---
spoke with Brenton Spencer who is pts conservator and pt states that if provider thinks she needs to be admitted he supports that decision.
[2024-09-14] MEDS: piperacillin-tazobactam 2.25 GM in sodium chloride 0.9% (plus) 50 ML IV (12:20)
[2024-09-14 12:25] LABS: Troponin 5 6HR 96.85 ng/L (0-10)
[2024-09-14 12:26] LABS: Troponin 5 6HR Delta -10.15 ng/L (0-12)
--- NOTE | 2024-09-14 12:48 | PC.NURSE ---
Nathalia called for update on pt
--- NOTE | 2024-09-14 13:02 | ECG_ITS ---
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 Measurements Intervals Douglas Rate: 79 P: 28 MN: 193 QRS: -34 QRSD: 132 T: 31 QT: 407 QTc: 469 Interpretive Statements SINUS RHYTHM LEFT AXIS DEVIATION [QRS AXIS < -30] RIGHT BUNDLE BRANCH BLOCK [120+ ms QRS DURATION, UPRIGHT V1, 40+ ms S IN I/aVL/V4/V5/V6] LEFT VENTRICULAR HYPERTROPHY AND ST-T CHANGE [VOLTAGE CRITERIA PLUS ST/T ABNORMALITY] Compared to ECG 09/14/2024 09:09:48 Right bundle-branch block now present Sinus arrhythmia no longer present Intraventricular conduction delay no longer present Myocardial infarct finding no longer present ST (T wave) deviation still present Electronically Signed On 09-18-2024 13:48:16 TEACHING PASTOR by Miguel Zimmer M.D. [email or web address]
[2024-09-14 14:22] LABS: Thyroid Stimulating Hormone 1.23 uIU/mL (0.27-4.20)
--- NOTE | 2024-09-14 14:26 | PC.NURSE ---
see admission assessment
[2024-09-14] MEDS: heparin 5,000 unit/mL INJ 1 mL IVP (14:34)
[2024-09-14] MEDS: heparin drip 25,000 UNIT/500 ML PREMIX 35 UNIT IV (14:37)
[2024-09-14] MEDS: hyDRALAzine 20 mg/mL INJ 1 mL 5 MG IVP ×3 (14:53→22:51)
[2024-09-14 16:39] LABS: Glucose Point of Care 468 mg/dL (70-110)
--- NOTE | 2024-09-14 16:42 | PC.NURSE ---
Patient NPO due to being on avaps mode on bipap. PO evening meds not given
[2024-09-14 16:48] LABS: MRSA PCR OZH (swab) NOT DETECTED (Not Detecte)
[2024-09-14] MEDS: methylPREDNISolone sod succ 40 mg/mL INJ IVP ×2 (16:58→22:51)
[2024-09-14] MEDS: insulin lispro 100 unit/1 mL SUBCUT ×2 (17:03→21:37)
[2024-09-14] MEDS: piperacillin-tazobactam 3.375 GM in sodium chloride 0.9% (plus) 50 ML IV (18:12)
[2024-09-14 21:36] LABS: Glucose Point of Care 482 mg/dL (70-110)
[2024-09-15] VITALS (71 sets, daily range): BP systolic 85–166; BP diastolic 50–106; PULSE 60–95; RESP 4–55; TEMP 35.5–37.1; O2SAT 88–99; BMI 49.1
[2024-09-15] MEDS: ipratropium-albuterol 3 mL Neb INHALATION ×4 (02:22→19:40)
--- NOTE | 2024-09-15 02:30 | PC.NURSE ---
Patient becoming very agitated, tore off her bipap, verbally aggressive, attempting to hit, kick, and scratch staff. Dr. Armijo notified. New order for Precedex gtt.
[2024-09-15] MEDS: dexmedeTOMIDine 0.9 % NaCL 400 MCG/100 ML PREMIX IV (02:34)
[2024-09-15] MEDS: hyDRALAzine 20 mg/mL INJ 1 mL 5 MG IVP ×6 (03:44→23:43)
[2024-09-15] MEDS: piperacillin-tazobactam 3.375 GM in sodium chloride 0.9% (plus) 50 ML IV ×3 (03:44→18:37)
[2024-09-15] MEDS: sucralfate 1 gm/10 mL Oral Liq UDC PO ×3 (05:33→18:25)
[2024-09-15] MEDS: dexmedeTOMIDine 0.9 % NaCL 400 MCG/100 ML PREMIX 19.02 MCG IV (05:33)
[2024-09-15] MEDS: methylPREDNISolone sod succ 40 mg/mL INJ IVP ×2 (05:33→10:55)
[2024-09-15] MEDS: buPROPion XL (24 HR) 150 mg Tablet PO (05:33)
[2024-09-15 05:53] LABS: Basophils % 0.1 %; Hematocrit 30.3 % (36-47); Lymphocytes # 0.3 10^3/uL (0.8-4.8); Lymphocytes % 3.4 %; Mean Corpuscular Hemoglobin 27.8 pg (27-33); Mean Corpuscular Volume 95.6 fl (85-98); Mean Platelet Volume 10.9 fL (7.4-10.4); Monocytes # 0.1 10^3/uL (0.2-0.9); Monocytes % 1.3 %; Neutrophils % 94.2 %; Nucleated Red Blood Cells % 0 %; Platelet Count 197 10^3/cmm (157-399); Red Blood Count 3.17 10^6/uL (3.85-5.65); Red Cell Distribution Width 15.2 % (12.1-15.1); White Blood Count 7.96 10^3/uL (3.29-11.43)
[2024-09-15 06:12] LABS: D Dimer 2.79 ug/mLFEU (0-0.59)
[2024-09-15 06:24] LABS: Blood Urea Nitrogen 48 mg/dL (8-23); Calcium 8.8 mg/dL (8.5-10.5); Carbon Dioxide 27 mmol/L (22-29); Chloride 101 mmol/L (98-107); Glomerular Filtration Rate 21.3 mL/min (90-130); Glucose 450 mg/dL (65-115); Osmolality Calculated 324 mOsm/kg (285-295); Sodium 141 mmol/L (136-145)
[2024-09-15 06:30] LABS: Anion Gap 17.9 (5-19); Potassium 4.9 mmol/L (3.5-5.1)
[2024-09-15] MEDS: dexmedeTOMIDine 0.9 % NaCL 400 MCG/100 ML PREMIX 31.7 MCG IV (08:30)
[2024-09-15 08:36] LABS: Partial Thromboplastin Time 36.7 SECONDS (23.9-36.7)
[2024-09-15] MEDS: clopidogrel 75 mg Tablet PO (08:50)
[2024-09-15] MEDS: pantoprazole DR 40 mg Tablet PO ×2 (08:50→18:26)
[2024-09-15] MEDS: metoprolol tartrate 25 mg Tablet 37.5 MG PO ×2 (08:50→18:26)
[2024-09-15] MEDS: insulin lispro 100 unit/1 mL SUBCUT ×4 (08:58→21:23)
[2024-09-15 09:42] LABS: Glucose Point of Care 547 mg/dL (70-110)
[2024-09-15 09:42] LABS: Glucose Point of Care 515 mg/dL (70-110)
[2024-09-15 09:43] LABS: ABG PH Result 7.45 (7.35-7.45); Alveolar-Arterial Oxygen Gradi 2.5 mmHg (5-10); Arterial Blood Gas Hematocrit 26.1 % (37-47); Base Excess ABG 5.7 mmol/L (-2.0-2.0); Blood Gas Allen Test Pos; Blood Gas Operator Identificat CAK; Blood Gas Sample Site Radial, left; Blood Gas Sample Type Arterial; Carboxyhemoglobin 1.4 %THgb (0.4-20.1); HCO3 ABG 30.4 mmol/L (22-26); HGB O2 Sat 94.6 % (95-100); Ionized Calcium Level - ABG 1.2 mmol/L (1.1-1.4); Oxygen Device BIPAP; Oxygen Saturation ABG 96.9; PO2 ABG 76.5 mmHg (80.0-100.0); Potassium Level - ABG 4.4 mmol/L (3.5-5.0); Total Hemoglobin 8.5 g/dL (12-16)
[2024-09-15] MEDS: insulin glargine 100 units/1 mL 10 UNIT SUBCUT (10:51)
[2024-09-15] MEDS: cloNIDine 0.1 mg Tablet PO ×2 (10:54→19:58)
[2024-09-15] MEDS: FUROsemide 10 mg/mL SDV 10mL 60 MG IVP ×2 (10:55→23:43)
[2024-09-15 10:56] LABS: Glucose Point of Care 497 mg/dL (70-110)
[2024-09-15] MEDS: heparin drip 25,000 UNIT/500 ML PREMIX 35 UNIT IV (11:03)
--- NOTE | 2024-09-15 11:33 | P.PN_ITS ---
Documented by User: GEORGES Hernandez STDRONNIE 09/15/24 15:42 Subjective 2 Subjective: Examined patient at bedside this morning. No acute events overnight. Her vitals have been stable. Did have a blood glucose of 515 this morning, was given 15 units of lispro. Per nursing, patient is back to her baseline where she is alert and oriented to self only, but does tend to be combative with any interventions. Difficult to assess given that she is still on Precedex. On my encounter with her she is alert continues to speak in word salad, she denies pain. She was taken off BiPAP briefly for toileting and appeared to be breathing comfortably. Vitals/I&O/Wt Last Vital Signs Temp 98.7 F 09/15/24 04:00 Pulse 60 09/15/24 07:59 Resp 30 H 09/15/24 07:59 BP 154/64 09/15/24 10:54 Pulse Ox 96 09/15/24 07:59 O2 Del Method BiPAP 09/15/24 07:59 O2 Flow Rate 2 09/14/24 08:38 FiO2 30 09/15/24 07:59 09/14/24 09/15/24 09/15/24 22:59 06:59 14:59 Intake Total 282.167 / 708.992 363.511 / 708.992 461.592 / 461.592 Output Total 200 / 450 250 / 450 Balance 82.167 / 258.992 113.511 / 258.992 461.592 / 461.592 Weight last 48 hrs Weight 130 kg Weight 126.8 kg Weight 124.738 kg Physical Exam 2 Const: COMMON NORMALS: no acute distress and alert Chest: CHEST: Yes Symmetrical chest wall rise Resp: EFFORT & INSPECTION: Yes able to speak in complete sentences OTHER: Difficult to assess given body habitus, does have good airflow bilaterally with no wheezes. Extremity: NARRATIVE EXTREMITY EXAM: 3+ pitting edema over the lower extremit ies, edema extends up to the hips Neuro: SENSORIUM/ORIENTATION: Yes alert Urinary Catheter Management: Kent: Cath Placed During This Visit: yes Reason for Continuing Indwelling Catheter: Accurate Measurement of Urinary Output in Critically Ill Patients Urinary Catheter Date of Insertion: 09/14/24 Urinary Catheter Time of Insertion: 15:04 Data 09/16/24 03:52 09/16/24 03:52 Micro: Microbiology 09/14/24 08:20 Blood Culture - Preliminary Blood NEGATIVE TO DATE 09/14/24 08:18 Blood Culture - Preliminary Blood NEGATIVE TO DATE A&P Assessment and plan (1) Respiratory failure: Plan #Altered mental status #Acute metabolic encephalopathy secondary to hypercapnic respiratory acidosis ?Patient now back to her baseline, alert and oriented to self only, speaks in word salad. Similar to last hospitalization, she is still on Precedex and is difficult to wean given her density to become combative when turned off. Will restart her Risperdal today with hopes that Precedex can be weaned further. Consider restarting olanzapine in the future as well ? ABG obtained this morning is back to baseline with pH 7.4 and pCO2 down to 44. #Respiratory failure #Hypercapnic respiratory acidosis #Underlying OHS #COPD exacerbation ?Continues to be on BiPAP at FiO2 30%, however O2 saturations have been maintained in the high 90s. Continue to wean BiPAP as possible ?Will continue Zosyn, reassess tomorrow if able to de-escalate #COPD exacerbation # T2DM, uncontrolled ?Given agitation and uncontrolled hyperglycemia, decreased Solu-Medrol to 20 mg every 6 hours today ?Tightened sliding scale insulin and increased Lantus to 13 units today #Acute decompensated HFpEF - Patient did not receive Lasix yesterday, will start IV Lasix 60 mg q12 today which should improve her fluid balance ?Continue IV diuretics with IV Lasix, monitor intake and output, monitor for risk of electrolyte deficiency, hypokalemia, monitor telemetry with risk of arrhythmia. Reassess chemistry. #D-dimer, elevated D-dimer initially 1.11, with hypoxia on presentation, now increased to 2.7 Lower extremity duplex negative for DVT on arrival ? Patient continues to be too altered and agitated for VQ scan. Creatinine has improved but still elevated at 2.3. Will continue heparin drip and reconsider VQ scan or CT PE as her status improves negative for COVID, influenza, RSV. Will repeat D-dimer level. #Troponin level elevated Moderate troponin elevation with flat trend so far. Did not have chest pain. EKG on review with LVH, RBBB, pending official read. Complete troponin EKG series. Possibly demand ischemia secondary to respiratory failure. Cannot exclude possible PE, anticoagulated as above. Monitor on telemetry. Echocardiogram back in July with normal ejection fraction, but limited quality with poor ultrasonic windows. #Essential hypertension ?Continue home medications with clonidine, hydralazine, metoprolol continues to be on Precedex DVT prophylaxis: Heparin drip given concern for possible PE Full code Coding Level of Care Code Critical Care >/= 30 minutes Diagnoses Respiratory failure J96.90 Documented by User: Gian Echeverria MD 09/16/24 10:25 Physical Exam 2 Urinary Catheter Management: Kent: Cath Placed During This Visit: yes Data 09/16/24 03:52 09/16/24 03:52 A&P Assessment and plan (1) Respiratory failure: Attestations 2 Medical Necessity Statement*: Continue admission for assessment of management of respiratory failure with hypercapnia, acute encephalopathy, decompensated CHF. Other Attestations: Patient seen and examined independently. Findings by Dr. Saini reviewed and discussed. Her mental status is showing improvement she is more awake and alert. She is having aphasia, which is not new, confused, appears possibly more agitated than her baseline. Repeat ABG shows improvement and hypercapnic acidosis, respiratory failure, weaned off BiPAP, transition to nasal cannula. Discussed with nursing staff continue to target O2 saturation 88-92. Avoid hyperoxia. With noted persistent edema with anasarca upper lower extremities, with acute decompensated diastolic CHF, Lasix is ordered for her at 60 mg every 12 hours. Reassess volume status, intake and output, reassess chemistry with risk of electro abnormality, kidney injury with IV diuretic. Monitor for hypovolemia. Reassess volume status. D-dimer noted with increased up to 2.79. Continues with anticoagulation currently, to risk of bleeding. Reassess blood counts. Reassess PTT. Reassess D-dimer. If mental status improves to the point that she may participate with VQ scan we may obtain further assessment. Will stepwise resume her medications. Resume risperidone currently. If tolerating without lethargy, resume olanzapine. Wean off Precedex. BiPAP support as needed in case of further signs of CO2 retention. Discussed with disease case manager rn, nursing. Coding Level of Care Code Critical Care >/= 30 minutes Critical care time (in minutes): 35 The high probability of a clinically significant, sudden or life threatening deterioration, as referenced in this documentation, required my full and direct attention, intervention and personal management. The critical care time shown is in addition to time spent performing any reported separately billable procedures and includes the following: [x] Data and vital sign review and interpretation [x ] Patient assessment, examination and intervention [x] Medication orders and management [x] Patient/Family updates as able [x] Care Coordination and Documentation. Diagnoses Respiratory failure J96.90
[2024-09-15] MEDS: dexmedeTOMIDine 0.9 % NaCL 400 MCG/100 ML PREMIX 25.36 MCG IV (12:09)
[2024-09-15 12:25] LABS: Glucose Point of Care 491 mg/dL (70-110)
[2024-09-15] MEDS: risperiDONE 1 mg Tablet PO (14:52)
[2024-09-15 15:02] LABS: Partial Thromboplastin Time 39.7 SECONDS (23.9-36.7)
[2024-09-15] MEDS: heparin 5,000 unit/mL INJ 1 mL IVP (15:31)
[2024-09-15] MEDS: methylPREDNISolone sod succ 40 mg/mL INJ 20 MG IVP ×2 (16:33→23:17)
[2024-09-15 17:41] LABS: Glucose Point of Care 428 mg/dL (70-110)
--- NOTE | 2024-09-15 19:17 | PC.NURSE ---
Shifty Summary: uneventful shift. Titrated off of precedex. Insulin increased form low dose to medium dose sliding scale. Despite 60mg of lasix, patient only made 400mL of urine today.
[2024-09-15 21:18] LABS: Glucose Point of Care 367 mg/dL (70-110)
[2024-09-15] MEDS: atorvastatin 40 mg Tablet PO (21:23)
[2024-09-15 21:27] LABS: Partial Thromboplastin Time 116.6 SECONDS (23.9-36.7)
[2024-09-16] VITALS (79 sets, daily range): BP systolic 118–166; BP diastolic 49–86; PULSE 59–85; RESP 14–37; TEMP 35.8–37.1; O2SAT 88–98; BMI 47.0
[2024-09-16] MEDS: sucralfate 1 gm/10 mL Oral Liq UDC PO ×3 (01:09→17:15)
[2024-09-16] MEDS: ipratropium-albuterol 3 mL Neb INHALATION ×3 (01:38→13:25)
[2024-09-16] MEDS: hyDRALAzine 20 mg/mL INJ 1 mL 5 MG IVP ×4 (02:39→14:46)
[2024-09-16] MEDS: piperacillin-tazobactam 3.375 GM in sodium chloride 0.9% (plus) 50 ML IV ×3 (02:47→22:03)
[2024-09-16 03:59] LABS: Basophils % 0.1 %; Lymphocytes # 0.2 10^3/uL (0.8-4.8); Lymphocytes % 1.8 %; Mean Corpuscular HGB Conc 30.3 g/dL (30-55); Mean Corpuscular Hemoglobin 27.4 pg (27-33); Mean Corpuscular Volume 90.3 fl (85-98); Mean Platelet Volume 10.4 fL (7.4-10.4); Monocytes # 0.3 10^3/uL (0.2-0.9); Monocytes % 2.3 %; Neutrophils # 11.95 10^3/uL (1.8-7.7); Neutrophils % 95.3 %; Nucleated Red Blood Cells % 0 %; Platelet Count 215 10^3/cmm (157-399); Red Blood Count 3.21 10^6/uL (3.85-5.65); Red Cell Distribution Width 15.2 % (12.1-15.1); White Blood Count 12.54 10^3/uL (3.29-11.43)
[2024-09-16 04:13] LABS: Partial Thromboplastin Time 34.1 SECONDS (23.9-36.7)
[2024-09-16 04:15] LABS: D Dimer 1.31 ug/mLFEU (0-0.59)
[2024-09-16 04:27] LABS: Anion Gap 14.1 (5-19); Blood Urea Nitrogen 55 mg/dL (8-23); Calcium 8.8 mg/dL (8.5-10.5); Carbon Dioxide 30 mmol/L (22-29); Chloride 100 mmol/L (98-107); Glomerular Filtration Rate 19.4 mL/min (90-130); Glucose 299 mg/dL (65-115); Osmolality Calculated 316 mOsm/kg (285-295); Potassium 4.1 mmol/L (3.5-5.1); Sodium 140 mmol/L (136-145)
[2024-09-16] MEDS: methylPREDNISolone sod succ 40 mg/mL INJ 20 MG IVP ×2 (04:53→11:00)
--- NOTE | 2024-09-16 05:06 | PC.NURSE ---
Heparin Bolus Patient's ptt 116 after 5000 unit bolus of heparin in addition to heparin drip being at 16 ml/hr. Per protocol this AM, drip to be increased to 16 ml/hr again and administer a 6500 unit bolus. Order received from Dr. Armijo to hold heparin bolus.
[2024-09-16] MEDS: risperiDONE 1 mg Tablet PO (06:06)
[2024-09-16] MEDS: buPROPion XL (24 HR) 150 mg Tablet PO (06:06)
[2024-09-16 07:15] LABS: Glucose Point of Care 300 mg/dL (70-110)
[2024-09-16] MEDS: cloNIDine 0.1 mg Tablet PO ×2 (08:01→17:15)
[2024-09-16] MEDS: pantoprazole DR 40 mg Tablet PO ×2 (08:01→17:15)
[2024-09-16] MEDS: clopidogrel 75 mg Tablet PO (08:01)
[2024-09-16] MEDS: insulin lispro 100 unit/1 mL SUBCUT ×4 (08:03→22:03)
--- NOTE | 2024-09-16 08:41 | PC.NURSE ---
THis morning, patient was agreeable to get up to a chair for breakfast WHen ready to get her up, patient became very upset saying she didn't want to get up because her tv remote is supposed to be white. WHen nursing staff explained the benefits to getting out of bed (decreased risk of pneumonia, preserving muscle strength, earlier discharge), patient became more upset with staff, verbally aggressive, and started pounding fists on bed. Nurse will try again later to see if she is agreeable to getting up.
[2024-09-16] MEDS: metoprolol tartrate 25 mg Tablet 37.5 MG PO ×2 (10:21→19:23)
[2024-09-16] MEDS: insulin glargine 100 units/1 mL 13 UNIT SUBCUT (10:23)
[2024-09-16] MEDS: FUROsemide 10 mg/mL SDV 10mL 60 MG IVP (11:03)
[2024-09-16] MEDS: albumin 25 G/100 ML BAG 60 G IV (11:26)
[2024-09-16 11:44] LABS: Partial Thromboplastin Time 32.8 SECONDS (23.9-36.7)
[2024-09-16 12:39] LABS: Glucose Point of Care 354 mg/dL (70-110)
--- NOTE | 2024-09-16 14:40 | P.PN_ITS ---
Documented by User: GEORGES Hernandez STDRONNIE 09/16/24 15:18 Subjective 2 Subjective: No acute events overnight. Net positive fluid balance of 300 mL. Telemetry reviewed and unremarkable. Altered mental status is improved, she is alert has been off Precedex since yesterday afternoon. She is intermittently agitated, did become combative with her sitter this morning briefly. Vitals/I&O/Wt Last Vital Signs Temp 98.8 F 09/16/24 08:30 Pulse 67 09/16/24 14:00 Resp 16 09/16/24 13:25 BP 141/56 09/16/24 08:30 Pulse Ox 95 09/16/24 13:25 O2 Del Method Room Air 09/16/24 13:25 O2 Flow Rate 1 09/16/24 08:00 FiO2 30 09/15/24 07:59 09/15/24 09/16/24 09/16/24 22:59 06:59 14:59 Intake Total 441.051 / 1364.297 329.333 / 1364.297 115.2 / 115.2 Output Total 100 / 1000 600 / 1000 300 / 300 Balance 341.051 / 364.297 -270.667 / 364.297 -184.8 / -184.8 Weight last 48 hrs Weight 124.2 kg Weight 130 kg Physical Exam 2 Const: COMMON NORMALS: alert GENERAL APPEARANCE: cooperative and combative (Intermittently) HENMT: COMMON NORMALS: normocephalic and atraumatic HEAD & SCALP: n ormocephalic and atraumatic Eye: COMMON NORMALS: EOMs intact bilaterally Chest: CHEST: Yes Symmetrical chest wall rise Resp: AUSCULTATION: no crackles, no wheezes and diminished lung sounds bilateral OTHER: Difficult to assess given body habitus, no wheezes or crackles appreciated today. Poor airflow bilaterally Cardio: COMMON NORMALS: regular rate, regular rhythm, S1 normal heart sound present and S2 normal heart sound present RATE: regular rate RHYTHM: r egular rhythm HEART SOUNDS: S1 normal heart sound present, S2 normal heart sound present and no murmurs GI: COMMON NORMALS: Soft to palpation and non-tender PALPATION: Yes Soft to palpation Neuro: SENSORIUM/ORIENTATION: Yes alert Urinary Catheter Management: Kent: Cath Placed During This Visit: yes Reason for Continuing Indwelling Catheter: Accurate Measurement of Urinary Output in Critically Ill Patients Urinary Catheter Date of Insertion: 09/14/24 Urinary Catheter Time of Insertion: 15:04 Data 09/16/24 03:52 09/16/24 03:52 A&P Assessment and plan (1) Encephalopathy: Plan Plan #Altered mental status #Acute metabolic encephalopathy secondary to hypercapnic respiratory acidosis ?Patient now near her baseline, alert and oriented to self only, speaks in word salad but can intermittently converse appropriately. Precedex turned off as of 09/15 afternoon, restarted her home Risperdal. Consider restarting olanzapine tomorrow ? Repeat ABG back to baseline with pH 7.4 and pCO2 down to 44. #Respiratory failure #Hypercapnic respiratory acidosis #Underlying OHS #COPD exacerbation ? Initially required BiPAP, now weaned to room air ?Will continue Zosyn, will continue to reassess if able to de-escalate #COPD exacerbation # T2DM, uncontrolled ?Given agitation and uncontrolled hyperglycemia, decreased Solu-Medrol to 10 mg every 6 hours today ?Cont. sliding scale insulin and Lantus to 13 units #Acute decompensated HFpEF #DELORIS on CKD ?Continue IV diuretics with IV Lasix, monitor intake and output, monitor for risk of electrolyte deficiency, hypokalemia, monitor telemetry with risk of arrhythmia. Reassess chemistry. -Diuresis has been less than ideal on her current regimen, prerenal worsening of her kidney function. Did give a dose of albumin today, will continue to monitor #D-dimer, elevated D-dimer initially 1.11, with hypoxia on presentation, viktoria to 2.7 now 1.3 Lower extremity duplex negative for DVT on arrival ? Patient continues to be too agitated for VQ scan. Creatinine has improved but still elevated at 2.3. Will continue heparin drip and reconsider VQ scan or CTPE as her status improves negative for COVID, influenza, RSV. #Troponin level elevated Moderate troponin elevation with flat trend so far. Did not have chest pain. EKG on review with LVH, RBBB, pending official read. Complete troponin EKG series. Possibly demand ischemia secondary to respiratory failure. Cannot exclude possible PE, anticoagulated as above. Monitor on telemetry. Echocardiogram back in July with normal ejection fraction, but limited quality with poor ultrasonic windows. #Essential hypertension ?Continue home medications with clonidine, hydralazine, metoprolol continues to be on Precedex DVT prophylaxis: Heparin drip given concern for possible PE Full code Coding Level of Care Code 75701 Diagnoses Encephalopathy G93.40 Documented by User: Gian Echeverria MD 09/16/24 16:04 Physical Exam 2 Urinary Catheter Management: Kent: Cath Placed During This Visit: yes Data 09/16/24 03:52 09/16/24 03:52 A&P Assessment and plan (1) Encephalopathy: Attestations 2 Medical Necessity Statement*: Patient seen and examined by myself, we discussed his condition and plan of care. Reviewed and discussed findings and assessment and plan by Dr. Saini. Other Attestations: Still having word salad today, but is able to communicate better compared to yesterday, and is able to focus and maintain interaction better as well, although still going off on tangents and difficult to understand with receptive aphasia. Does not appear as angry/agitated today, although was reported to have had an anger outburst in the afternoon when offered to sit in the chair. Encephalopathy overall with improvement, has weaned off Precedex. Did well with resumption of risperidone. Noted some worsening of renal function today, BUN up to 55, creatinine up to 2.5 on review, potassium is normal. Sodium, chloride normal. Bicarb up to 30. Given additional albumin 25 g 25%. Still with significant edema of bilateral lower extremities. Poor response to diuresis may portend worse prognosis overall. Will reassess renal function, monitor for risk of depletion of electrolytes, worsening DELORIS. Reassess vitals, CBC, BMP. D- dimer noted with improvement today 1.31. Continues on heparin drip for now. With improving mental status will see if she might be able to participate with VQ scan tomorrow. Monitor for risk of bleeding. Reassess blood counts, monitor PTT. Reassess renal function. Air entry is better today. Will further decrease steroid down to 10 mg every 8 hours. Monitor for risk of worsening hyperglycemia, worsening encephalopathy, hypertension, gastritis with IV steroid. Continue to wean off as tolerating. May transfer out of ICU with one-to-one sitter for now. Discussed with family service caseworker as well, as per discussion with PT with concern of return to memory unit at [facility]. ag service manager contacted [facility], and her level of care has been escalated at the facility, they will be able to accept her for continued care as long as she is not requiring indwelling Kent or IV antibiotics. and High MDM includes amount and/or complexity of data reviewed/ordered [ resulted lab(s)/test(s), ordered lab(s)/test(s) and other healthcare professional discussion] and described risk of complication, morbidity or mortality of management as documented Diagnoses Encephalopathy G93.40
[2024-09-16 16:59] LABS: Glucose Point of Care 401 mg/dL (70-110)
[2024-09-16] MEDS: heparin drip 25,000 UNIT/500 ML PREMIX 23.48 UNIT IV (18:55)
[2024-09-16 19:45] LABS: Partial Thromboplastin Time 79.8 SECONDS (23.9-36.7)
--- NOTE | 2024-09-16 21:02 | USCV_ITS ---
Hilda Wallace Age: 64 Gender: F : 1960 Exam Date: 09/16/2024 22:34 Ordering Phys: Nuria Armijo MD Technologist: CRISPIN Exam Location: [facility] [place] Indication: edema to right arm HISTORY: edema to right arm PROCEDURES: Venous duplex imaging was performed in only the right upper extremity. The following venous structures were evaluated: internal jugular vein, subclavian vein, axillary vein, and brachial veins. In addition, the basilic vein, cephalic vein, radial vein, and ulnar vein. Serial compression, augmentation maneuvers, and spectral Doppler flow evaluation were performed, which were normal. There is no evidence of DVT in the right upper extremity. CONCLUSIONS No evidence of thrombus of the right upper extremity veins. Bulmaro Longo MD (Electronically Signed) Final Date: 17 September 2024 10:02 S
[2024-09-16 21:14] LABS: Glucose Point of Care 400 mg/dL (70-110)
--- NOTE | 2024-09-16 21:17 | PC.NURSE ---
patient came up from icu around 1730, patient on a heparin gtt, iv in right ac has blood under venaguard, her right arm is swollen and warm to touch and very bruised. nurse was made aware that in ICU the nurse had ran antibiotics with the heparin drip thru the same iv line. upon assessment on med/surg the nurse discontinued the right ac space iv, and restarted 2 separate iv lines, one in her left ac space and one in her left hand. patient tolerated well. dr shaver notified and an order for a venous doppler for the right arm was noed and put in the computer.
[2024-09-16] MEDS: methylPREDNISolone sod succ 40 mg/mL INJ 10 MG IVP (22:04)
[2024-09-16] MEDS: hyDRALAzine 25 mg Tablet PO (22:05)
[2024-09-16] MEDS: atorvastatin 40 mg Tablet PO (22:05)
[2024-09-17] VITALS (17 sets, daily range): BP systolic 129–166; BP diastolic 60–75; PULSE 60–86; RESP 15–19; TEMP 36.1–36.7; O2SAT 91–98
[2024-09-17] MEDS: sucralfate 1 gm/10 mL Oral Liq UDC PO ×5 (00:53→23:56)
[2024-09-17] MEDS: FUROsemide 10 mg/mL SDV 10mL 60 MG IVP ×2 (00:53→11:44)
[2024-09-17] MEDS: ondansetron 2 mg/ML SDV 2 mL 4 MG IVP (02:00)
[2024-09-17] MEDS: acetaminophen 325 mg Tablet 650 MG PO (02:00)
--- NOTE | 2024-09-17 05:22 | PC.NURSE ---
patient was very agitated and nurse contacted dr shaver and he ordered Zyprexa 10mg one time order. patient calmed down so nurse did not give the med. nurse returned med into the pyxis and charted not given in the mar. patient is calm and has no complaints at this time.
[2024-09-17] MEDS: buPROPion XL (24 HR) 150 mg Tablet PO (05:34)
[2024-09-17] MEDS: hyDRALAzine 25 mg Tablet PO ×3 (05:34→20:11)
[2024-09-17] MEDS: risperiDONE 1 mg Tablet PO (05:34)
[2024-09-17] MEDS: methylPREDNISolone sod succ 40 mg/mL INJ 10 MG IVP ×2 (05:34→11:44)
[2024-09-17] MEDS: piperacillin-tazobactam 3.375 GM in sodium chloride 0.9% (plus) 50 ML IV ×2 (05:42→11:43)
[2024-09-17 07:17] LABS: Glucose Point of Care 327 mg/dL (70-110)
[2024-09-17] MEDS: ipratropium-albuterol 3 mL Neb INHALATION ×3 (07:25→19:30)
--- NOTE | 2024-09-17 08:00 | NM_ITS ---
WS: [id number] NUCLEAR MEDICINE PERFUSION ONLY LUNG SCAN HISTORY: Assess for PE. DELORIS/CKD. Hypoxia. Elev ddimer. COMPARISON: Chest radiograph 09/14/2024 TECHNIQUE: Perfusion: 5.5 mCi of technetium 99m MAA IV. No defects identified on the perfusion imaging. Very good perfusion to both lungs. Heart is enlarged. No significant effusion. NM/NM pul perfusion [id number] IMPRESSION: Normal perfusion lung scan.
--- NOTE | 2024-09-17 08:33 | PM.PN ---
Documented by User: GEORGES Hernandez STDRONNIE 09/17/24 16:00 Subjective Subjective: Overnight patient had 1 episode of agitation. Dry Heat Room Attendant was contacted and ordered Zyprexa, however patient calmed down soon after so it was not given. Vitals have been stable, she has been requiring 1 to 2 L of O2. Net positive fluid balance 133 mL. Patient also found to have extravasation of of her heparin from her IV in her right arm this morning, venous duplex ordered and negative for DVT in that extremity Vitals/I&O/Wt Last Vital Signs Temp 97.8 F 09/17/24 07:19 Pulse 62 09/17/24 07:26 Resp 16 09/17/24 07:26 BP 138/61 09/17/24 07:19 Pulse Ox 94 09/17/24 07:26 O2 Del Method Nasal Cannula 09/17/24 07:26 O2 Flow Rate 2 09/17/24 07:26 FiO2 30 09/15/24 07:59 09/16/24 09/17/24 09/17/24 22:59 06:59 14:59 Intake Total 421.2 / 1508.587 222.187 / 1508.587 0 / 0 Output Total 475 / 1375 600 / 1375 Balance -53.8 / 133.587 -377.813 / 133.587 0 / 0 Weight last 48 hrs Weight 133.81 kg Weight 132 kg Weight 124.2 kg Physical Exam Narrative: Patient sitting up on side of bed after working with physical therapy. Able to answer questions appropriately. Const: COMMON NORMALS: no acute distress and alert GENERAL APPEARANCE: cooperative Resp: OTHER: Improved airflow bilaterally. Did not appreciate any crackles or wheezes. Cardio: COMMON NORMALS: regular rate and regular rhythm; negative for No murmurs present (Cardio) RATE: regular rate RHYTHM: regular rhythm Extremity: NARRATIVE EXTREMITY EXAM: 3+ pitting lower extremity edema, however does seem improved. Now mostly up to her knees. Chronic stasis dermatitis over the anterior shins that has been stable Neuro: SENSORIUM/ORIENTATION: Yes alert Urinary Catheter Management: Kent: Cath Placed During This Visit: yes Reason for Continuing Indwelling Catheter: Accurate Measurement of Urinary Output in Critically Ill Patients Urinary Catheter Date of Insertion: 09/14/24 Urinary Catheter Time of Insertion: 15:04 Data 09/17/24 10:53 09/17/24 10:53 A&P Assessment and plan (1) COPD (chronic obstructive pulmonary disease): Qualifiers: COPD type: unspecified COPD Qualified Code(s): J44.9 - Chronic obstructive pulmonary disease, unspecified Plan Plan #Altered mental status #Acute metabolic encephalopathy secondary to hypercapnic respiratory acidosis ?Patient now near her baseline, alert and oriented to self and place. Able to converse appropriately this morning. - Required Precedex on admission, weaned off on 09/15. Home Risperdal restarted, will restart olanzapine today ? Repeat ABG back to baseline with pH 7.4 and pCO2 down to 44. #Respiratory failure #Hypercapnic respiratory acidosis #Underlying OHS #COPD exacerbation negative for COVID, influenza, RSV. ? Initially required BiPAP, now weaned to her BL of 1-2L ?Patient does not have CPAP at her facility, ordered overnight pulse oximetry study ?Discontinued Zosyn today. #COPD exacerbation # T2DM, uncontrolled ?Given agitation and uncontrolled hyperglycemia, initially required Solu-Medrol. Today de-escalated to prednisone 10 mg daily ?Cont. sliding scale insulin and Lantus to 13 units #Acute decompensated HFpEF #DELORIS on CKD Renal function worsened today, creatinine now 2.8. Will give additional dose of albumin today, and hold Lasix and metolazone #D-dimer, elevated D-dimer initially 1.11, with hypoxia on presentation, viktoria to 2.7 now 1.3 Lower extremity duplex negative for DVT on arrival VQ scan completed and negative for PE. Heparin drip discontinued #Troponin level elevated Moderate troponin elevation with flat trend so far. Did not have chest pain. EKG on review with LVH, RBBB, pending official read. Complete troponin EKG series. Possibly demand ischemia secondary to respiratory failure. Echocardiogram back in July with normal ejection fraction, but limited quality with poor ultrasonic windows. #Essential hypertension ?Continue home medications with clonidine, hydralazine, metoprolol continues to be on Precedex DVT prophylaxis: Lovenox Full code Coding Level of Care Code 31222 Diagnoses Chronic obstructive pulmonary disease, unspecified COPD type J44.9 COPD type: unspecified COPD Documented by User: Gian Echeverria MD 09/17/24 17:24 Physical Exam Urinary Catheter Management: Kent: Cath Placed During This Visit: yes Data 09/17/24 10:53 09/17/24 10:53 A&P Assessment and plan (1) COPD (chronic obstructive pulmonary disease): Qualifiers: COPD type: unspecified COPD Qualified Code(s): J44.9 - Chronic obstructive pulmonary disease, unspecified Attestations Medical Necessity Statement*: Continue admission for assessment management of CHF exacerbation, with difficult diuresis with worsening renal function. Other Attestations: Patient seen and examined dependently. Findings discussed with biomedical equipment technician Dr. Saini. Her mental status today was much better. She is able to hold a much better conversation although still with moderate aphasia. With significant improvement in behavior. One-to-one sitter has been discontinued. She does still have significant lower extremity edema, 3+ bilaterally. Overnight additionally developed right upper extremity edema after infiltrated IV. Venous duplex study was obtained, reviewed, negative for DVT. Requested to elevate right upper extremity to heart level. Labs could not be obtained this morning. Further diuresis was discussed with her due to significant anasarca bradycardia, on obtaining labs later in the afternoon, noted with worsening renal function, BUN up to 64, creatinine 2.8. Diuretics held for now, will give additional dose of albumin. Monitor for risk of worsened fluid overload. Reassess renal function. Monitor intake and output. For now hold olanzapine. Tolerated VQ scan well, reviewed, no PE. Heparin drip discontinued. Transition to subcutaneous Lovenox for VT prophylaxis. Discussed with disability case manager, she could potentially be accepted to SNF over the weekend in case she became ready for discharge. and High MDM includes amount and/or complexity of data reviewed/ordered [ resulted lab(s)/test(s), ordered lab(s)/test(s) and other healthcare professional discussion] and described risk of complication, morbidity or mortality of management as documented Diagnoses Chronic obstructive pulmonary disease, unspecified COPD type J44.9 COPD type: unspecified COPD
[2024-09-17] MEDS: clopidogrel 75 mg Tablet PO (08:59)
[2024-09-17] MEDS: metoprolol tartrate 25 mg Tablet 37.5 MG PO ×2 (08:59→17:31)
[2024-09-17] MEDS: pantoprazole DR 40 mg Tablet PO ×2 (09:00→17:31)
[2024-09-17] MEDS: insulin lispro 100 unit/1 mL SUBCUT ×4 (09:00→21:58)
[2024-09-17] MEDS: cloNIDine 0.1 mg Tablet PO ×2 (09:00→17:31)
[2024-09-17] MEDS: insulin glargine 100 units/1 mL 13 UNIT SUBCUT (09:01)
--- NOTE | 2024-09-17 09:49 | PC.SOCIAL ---
IMM Updated Updated pt's guardian, Brenton Hsu, on IMM. No questions voiced. Provided pt a copy. Initialed, dated, & timed a copy & placed in chart.
[2024-09-17] MEDS: enoxaparin 40 mg/0.4 mL Syringe SUBCUT (10:29)
[2024-09-17] MEDS: metOLazone 5 MG Tablet PO (10:30)
[2024-09-17 11:00] LABS: Basophils % 0.1 %; Hematocrit 28.2 % (36-47); Lymphocytes # 0.3 10^3/uL (0.8-4.8); Lymphocytes % 2.3 %; Mean Corpuscular HGB Conc 30.5 g/dL (30-55); Mean Corpuscular Hemoglobin 27.7 pg (27-33); Mean Corpuscular Volume 90.7 fl (85-98); Mean Platelet Volume 10.3 fL (7.4-10.4); Monocytes # 0.2 10^3/uL (0.2-0.9); Monocytes % 2.2 %; Neutrophils # 10.19 10^3/uL (1.8-7.7); Neutrophils % 94.8 %; Nucleated Red Blood Cells % 0 %; Platelet Count 202 10^3/cmm (157-399); Red Blood Count 3.11 10^6/uL (3.85-5.65); Red Cell Distribution Width 15.7 % (12.1-15.1); White Blood Count 10.75 10^3/uL (3.29-11.43)
[2024-09-17 11:06] LABS: Glucose Point of Care 374 mg/dL (70-110)
[2024-09-17 11:22] LABS: Anion Gap 17.2 (5-19); Blood Urea Nitrogen 64 mg/dL (8-23); Calcium 8.1 mg/dL (8.5-10.5); Carbon Dioxide 27 mmol/L (22-29); Chloride 98 mmol/L (98-107); Creatinine Clr Calc Pharmacy 27.6678; Glucose 389 mg/dL (65-115); Osmolality Calculated 320 mOsm/kg (285-295); Potassium 4.2 mmol/L (3.5-5.1); Sodium 138 mmol/L (136-145)
[2024-09-17 17:08] LABS: Glucose Point of Care 355 mg/dL (70-110)
[2024-09-17] MEDS: albumin 25 G/100 ML BAG 60 G IV (17:26)
[2024-09-17] MEDS: atorvastatin 40 mg Tablet PO (20:11)
[2024-09-17] MEDS: OLANZapine 5 mg TABLET PO (20:11)
[2024-09-17 21:04] LABS: Glucose Point of Care 297 mg/dL (70-110)
[2024-09-18] VITALS (12 sets, daily range): BP systolic 118–148; BP diastolic 7–71; PULSE 60–88; RESP 14–20; TEMP 36.4–36.8; O2SAT 93–97
[2024-09-18 04:28] LABS: Basophils % 0.1 %; Eosinophils # 0.1 10^3/uL (0.0-0.8); Eosinophils % 1.3 %; Lymphocytes # 0.8 10^3/uL (0.8-4.8); Lymphocytes % 9.8 %; Mean Corpuscular HGB Conc 28.6 g/dL (30-55); Mean Corpuscular Hemoglobin 27.3 pg (27-33); Mean Corpuscular Volume 95.6 fl (85-98); Mean Platelet Volume 10.3 fL (7.4-10.4); Monocytes # 0.7 10^3/uL (0.2-0.9); Monocytes % 8.3 %; Neutrophils # 6.51 10^3/uL (1.8-7.7); Nucleated Red Blood Cells % 0 %; Platelet Count 188 10^3/cmm (157-399); Red Blood Count 2.93 10^6/uL (3.85-5.65); Red Cell Distribution Width 15.6 % (12.1-15.1); White Blood Count 8.15 10^3/uL (3.29-11.43)
[2024-09-18 04:52] LABS: Alanine Aminotransferase 19 U/L (0-33); Albumin Level 3.4 g/dL (3.5-5.2); Alkaline Phosphatase 64 U/L (35-105); Aspartate Amino Transferase 16 U/L (0-32); Blood Urea Nitrogen 68 mg/dL (8-23); Calcium 8.1 mg/dL (8.5-10.5); Carbon Dioxide 28 mmol/L (22-29); Chloride 99 mmol/L (98-107); Creatinine Clr Calc Pharmacy 25.8233; Globulin 1.8 g/dL (1.3-4.6); Glomerular Filtration Rate 15.7 mL/min (90-130); Glucose 246 mg/dL (65-115); Osmolality Calculated 314 mOsm/kg (285-295); Sodium 138 mmol/L (136-145); Total Bilirubin 0.2 mg/dL (0.15-1.2); Total Protein 5.2 g/dL (6.6-8.7)
[2024-09-18 06:41] LABS: Glucose Point of Care 261 mg/dL (70-110)
[2024-09-18] MEDS: ipratropium-albuterol 3 mL Neb INHALATION ×3 (08:44→21:42)
[2024-09-18] MEDS: cloNIDine 0.1 mg Tablet PO ×2 (09:11→17:29)
[2024-09-18] MEDS: predniSONE 10 mg Tablet PO (09:11)
[2024-09-18] MEDS: metoprolol tartrate 25 mg Tablet 37.5 MG PO ×2 (09:11→17:28)
[2024-09-18] MEDS: pantoprazole DR 40 mg Tablet PO ×2 (09:11→17:28)
[2024-09-18] MEDS: insulin lispro 100 unit/1 mL SUBCUT ×4 (09:11→21:53)
[2024-09-18] MEDS: clopidogrel 75 mg Tablet PO (09:11)
[2024-09-18] MEDS: enoxaparin 30 mg/0.3 mL Syringe SUBCUT (09:12)
[2024-09-18] MEDS: insulin glargine 100 units/1 mL 13 UNIT SUBCUT (09:41)
[2024-09-18 12:05] LABS: Glucose Point of Care 243 mg/dL (70-110)
[2024-09-18] MEDS: sucralfate 1 gm/10 mL Oral Liq UDC PO ×3 (12:25→23:35)
[2024-09-18] MEDS: hyDRALAzine 25 mg Tablet PO ×2 (12:25→20:35)
[2024-09-18 17:02] LABS: Glucose Point of Care 305 mg/dL (70-110)
--- NOTE | 2024-09-18 17:31 | P.PN_ITS ---
Subjective 2 Subjective: Patient was seen this morning, she is alert to person, not to place, is a word salad, has no pain complaints this morning Vitals/I&O/Wt Last Vital Signs Temp 97.6 F 09/18/24 16:00 Pulse 86 09/18/24 16:00 Resp 16 09/18/24 16:00 BP 148/7 09/18/24 16:00 Pulse Ox 97 09/18/24 16:00 O2 Del Method Nasal Cannula 09/18/24 16:00 O2 Flow Rate 1.5 09/18/24 14:00 FiO2 30 09/15/24 07:59 09/18/24 09/18/24 09/18/24 06:59 14:59 22:59 Intake Total 480 / 480 Output Total 1050 / 1700 Balance -1050 / -692.187 480 / 480 Weight last 48 hrs Weight 132.268 kg Weight 133.81 kg Physical Exam 2 Const: COMMON NORMALS: no acute distress Resp: COMMON NORMALS: normal respiratory effort, No retractions, No use of accessory muscles and clear to auscultation bilaterally AUSCULTATION: clear to auscultation bilaterally Cardio: COMMON NORMALS: regular rate, regular rhythm, S1 normal heart sound present and S2 normal heart sound present RATE: regular rate RHYTHM: r egular rhythm HEART SOUNDS: S1 normal heart sound present and S2 normal heart sound present GI: COMMON NORMALS: Normal to inspection, nondistended, normoactive bowel sounds present and non-tender Extremity: NARRATIVE EXTREMITY EXAM: 3+ pitting edema bilateral extremities Urinary Catheter Management: Kent: Cath Placed During This Visit: yes Reason for Continuing Indwelling Catheter: Accurate Measurement of Urinary Output in Critically Ill Patients Urinary Catheter Date of Insertion: 09/14/24 Urinary Catheter Time of Insertion: 15:04 Data 09/18/24 04:04 09/18/24 04:04 A&P Assessment and plan (1) COPD (chronic obstructive pulmonary disease): Qualifiers: COPD type: unspecified COPD Qualified Code(s): J44.9 - Chronic obstructive pulmonary disease, unspecified (2) Acute encephalopathy: (3) CHF exacerbation: Plan Plan #Altered mental status #Acute metabolic encephalopathy secondary to hypercapnic respiratory acidosis ? Oriented to person, not to place, not to time, has word salad -Monitor mentation #Respiratory failure #Hypercapnic respiratory acidosis #Underlying OHS # Systolic CHF exacerbation -Continue BiPAP as needed during the day scheduled during the night ? Lasix #COPD exacerbation, prednisone 10 mg daily # T2DM, uncontrolled ?Cont. sliding scale insulin and Lantus to 13 units #Acute decompensated HFpEF -2+ pitting edema -Lasix 40 IV twice daily with metolazone #DELORIS on CKD Creatinine 3.0 monitor #Troponin level elevated -Telemetry monitoring #Essential hypertension ?Continue home medications with clonidine, hydralazine, metoprolol History of paranoia, depression, agitation continue Zyprexa, risperidone, Lamictal History of bradycardia status post pacemaker placement DVT prophylaxis: Lovenox Full code Attestations 2 Medical Necessity Statement*: Patient requires hospitalization for fluid overload, CHF requiring IV diuresis, Diagnoses Chronic obstructive pulmonary disease, unspecified COPD type J44.9 COPD type: unspecified COPD Acute encephalopathy G93.40 CHF exacerbation I50.9
[2024-09-18] MEDS: FUROsemide 10 mg/mL SDV 4mL 40 MG IVP (18:45)
[2024-09-18] MEDS: lamoTRIgine 100 mg Tablet PO (18:45)
[2024-09-18] MEDS: metOLazone 5 MG Tablet PO (18:45)
[2024-09-18] MEDS: potassium chloride ER 20 mEq Tablet 40 MEQ PO (18:50)
[2024-09-18] MEDS: OLANZapine 5 mg TABLET PO (20:35)
[2024-09-18] MEDS: atorvastatin 40 mg Tablet PO (20:35)
[2024-09-18 21:14] LABS: Glucose Point of Care 349 mg/dL (70-110)
[2024-09-18] MEDS: ondansetron 2 mg/ML SDV 2 mL 4 MG IVP (23:35)
[2024-09-19] VITALS (13 sets, daily range): BP systolic 126–149; BP diastolic 60–74; PULSE 60–74; RESP 14–20; TEMP 36.3–36.8; O2SAT 91–98
[2024-09-19] MEDS: ipratropium-albuterol 3 mL Neb INHALATION ×4 (02:38→20:07)
[2024-09-19 04:17] LABS: Basophils % 0.1 %; Eosinophils # 0.4 10^3/uL (0.0-0.8); Eosinophils % 4.9 %; Hematocrit 27.9 % (36-47); Lymphocytes # 0.7 10^3/uL (0.8-4.8); Lymphocytes % 7.7 %; Mean Corpuscular HGB Conc 29.4 g/dL (30-55); Mean Corpuscular Hemoglobin 27.4 pg (27-33); Mean Corpuscular Volume 93.3 fl (85-98); Mean Platelet Volume 10.7 fL (7.4-10.4); Monocytes # 0.6 10^3/uL (0.2-0.9); Monocytes % 6.4 %; Neutrophils # 6.98 10^3/uL (1.8-7.7); Neutrophils % 80.4 %; Nucleated Red Blood Cells % 0 %; Platelet Count 184 10^3/cmm (157-399); Red Blood Count 2.99 10^6/uL (3.85-5.65); Red Cell Distribution Width 15.3 % (12.1-15.1); White Blood Count 8.69 10^3/uL (3.29-11.43)
[2024-09-19 04:52] LABS: Alanine Aminotransferase 26 U/L (0-33); Albumin Level 3.5 g/dL (3.5-5.2); Alkaline Phosphatase 65 U/L (35-105); Anion Gap 14.4 (5-19); Aspartate Amino Transferase 17 U/L (0-32); Blood Urea Nitrogen 72 mg/dL (8-23); Calcium 8.5 mg/dL (8.5-10.5); Carbon Dioxide 31 mmol/L (22-29); Chloride 104 mmol/L (98-107); Creatinine Clr Calc Pharmacy 25.6388; Globulin 1.8 g/dL (1.3-4.6); Glomerular Filtration Rate 15.7 mL/min (90-130); Glucose 223 mg/dL (65-115); Magnesium 1.8 mg/dL (1.7-2.3); Osmolality Calculated 328 mOsm/kg (285-295); Phosphorus 4.7 mg/dL (2.5-4.5); Potassium 4.4 mmol/L (3.5-5.1); Sodium 145 mmol/L (136-145); Total Bilirubin 0.3 mg/dL (0.15-1.2); Total Protein 5.3 g/dL (6.6-8.7)
[2024-09-19 05:20] LABS: NT Pro B Type Natriuretic Pept 6252 pg/mL (0-125)
[2024-09-19] MEDS: hyDRALAzine 25 mg Tablet PO ×3 (05:21→19:55)
[2024-09-19] MEDS: buPROPion XL (24 HR) 150 mg Tablet PO (05:21)
[2024-09-19] MEDS: risperiDONE 1 mg Tablet PO (05:21)
[2024-09-19] MEDS: sucralfate 1 gm/10 mL Oral Liq UDC PO ×4 (05:22→23:48)
[2024-09-19] MEDS: FUROsemide 10 mg/mL SDV 4mL 40 MG IVP ×2 (05:22→17:58)
[2024-09-19] MEDS: lamoTRIgine 100 mg Tablet PO ×3 (05:22→19:55)
[2024-09-19 06:30] LABS: Glucose Point of Care 253 mg/dL (70-110)
[2024-09-19] MEDS: insulin glargine 100 units/1 mL 13 UNIT SUBCUT (09:01)
[2024-09-19] MEDS: insulin lispro 100 unit/1 mL SUBCUT ×4 (09:01→21:44)
[2024-09-19 12:08] LABS: Glucose Point of Care 273 mg/dL (70-110)
[2024-09-19] MEDS: metOLazone 5 MG Tablet PO (12:21)
[2024-09-19] MEDS: clopidogrel 75 mg Tablet PO (12:21)
[2024-09-19] MEDS: enoxaparin 30 mg/0.3 mL Syringe SUBCUT (12:21)
[2024-09-19] MEDS: predniSONE 10 mg Tablet PO (12:21)
--- NOTE | 2024-09-19 12:54 | P.PN_ITS ---
Subjective 2 Subjective: Patient was seen this morning, she is alert oriented x 1, she is alert to person, not to place, to time she follows commands as a word gilberto has no complaints this morning, Vitals/I&O/Wt Last Vital Signs Temp 97.7 F 09/19/24 12:00 Pulse 63 09/19/24 12:00 Resp 14 09/19/24 12:00 BP 137/70 09/19/24 12:00 Pulse Ox 91 09/19/24 12:00 O2 Del Method Nasal Cannula 09/19/24 12:00 O2 Flow Rate 1.5 09/19/24 12:00 FiO2 30 09/15/24 07:59 09/18/24 09/19/24 09/19/24 22:59 06:59 14:59 Intake Total 360 / 840 240 / 240 Output Total 500 / 500 1400 / 1900 Balance -140 / 340 -1400 / -1060 240 / 240 Weight last 48 hrs Weight 131.95 kg Weight 132.268 kg Physical Exam 2 Const: COMMON NORMALS: no acute distress Resp: COMMON NORMALS: normal respiratory effort, No retractions and No use of accessory muscles AUSCULTATION: crackles Cardio: COMMON NORMALS: regular rate, regular rhythm, S1 normal heart sound present and S2 normal heart sound present RATE: regular rate RHYTHM: r egular rhythm HEART SOUNDS: S1 normal heart sound present and S2 normal heart sound present GI: COMMON NORMALS: Normal to inspection, nondistended, normoactive bowel sounds present and non-tender Extremity: NARRATIVE EXTREMITY EXAM: 3+ pitting edema Urinary Catheter Management: Kent: Cath Placed During This Visit: yes Reason for Continuing Indwelling Catheter: Accurate Measurement of Urinary Output in Critically Ill Patients Urinary Catheter Date of Insertion: 09/14/24 Urinary Catheter Time of Insertion: 15:04 Data 09/19/24 03:42 09/19/24 03:42 Micro: Microbiology 09/14/24 08:20 Blood Culture - Final Blood NO GROWTH AFTER 5 DAYS 09/14/24 08:18 Blood Culture - Final Blood NO GROWTH AFTER 5 DAYS A&P Assessment and plan (1) COPD (chronic obstructive pulmonary disease): Qualifiers: COPD type: unspecified COPD Qualified Code(s): J44.9 - Chronic obstructive pulmonary disease, unspecified (2) Acute encephalopathy: (3) CHF exacerbation: Plan Plan #Altered mental status #Acute metabolic encephalopathy secondary to hypercapnic respiratory acidosis ? Oriented to person, not to place, not to time, has word salad -Monitor mentation #Respiratory failure #Hypercapnic respiratory acidosis #Underlying OHS # Systolic CHF exacerbation -Continue BiPAP as needed during the day scheduled during the night ? Lasix #COPD exacerbation, prednisone 10 mg daily # T2DM, uncontrolled ?Cont. sliding scale insulin and Lantus to 13 units #Acute decompensated HFpEF -2+ pitting edema -Lasix 40 IV twice daily with metolazone #DELORIS on CKD Creatinine 3.0 monitor #Troponin level elevated -Telemetry monitoring #Essential hypertension ?Continue home medications with clonidine, hydralazine, metoprolol History of paranoia, depression, agitation continue Zyprexa, risperidone, Lamictal History of bradycardia status post pacemaker placement DVT prophylaxis: Lovenox Full code Diuresis lackluster continues to have 3+ pitting edema Lasix 40 IV twice daily, with metolazone Attestations 2 Medical Necessity Statement*: Patient requires hospitalization for CHF requiring IV diuresis Coding Level of Care Code 24723 Diagnoses Chronic obstructive pulmonary disease, unspecified COPD type J44.9 COPD type: unspecified COPD Acute encephalopathy G93.40 CHF exacerbation I50.9
[2024-09-19 16:36] LABS: Glucose Point of Care 301 mg/dL (70-110)
[2024-09-19] MEDS: metoprolol tartrate 25 mg Tablet 37.5 MG PO (17:58)
[2024-09-19] MEDS: pantoprazole DR 40 mg Tablet PO (17:58)
[2024-09-19] MEDS: cloNIDine 0.1 mg Tablet PO (17:58)
[2024-09-19] MEDS: atorvastatin 40 mg Tablet PO (20:00)
[2024-09-19] MEDS: OLANZapine 5 mg TABLET PO (20:00)
[2024-09-19 21:48] LABS: Glucose Point of Care 336 mg/dL (70-110)
[2024-09-20] VITALS (15 sets, daily range): BP systolic 105–158; BP diastolic 61–79; PULSE 58–101; RESP 15–19; TEMP 36.2–36.8; O2SAT 90–98
[2024-09-20] MEDS: ondansetron 2 mg/ML SDV 2 mL 4 MG IVP (00:51)
[2024-09-20] MEDS: ipratropium-albuterol 3 mL Neb INHALATION ×4 (02:35→19:55)
[2024-09-20 05:34] LABS: Basophils % 0.1 %; Eosinophils # 0.4 10^3/uL (0.0-0.8); Eosinophils % 4.6 %; Hematocrit 29.6 % (36-47); Lymphocytes # 0.5 10^3/uL (0.8-4.8); Lymphocytes % 5.6 %; Mean Corpuscular HGB Conc 28.7 g/dL (30-55); Mean Corpuscular Hemoglobin 27.3 pg (27-33); Mean Corpuscular Volume 95.2 fl (85-98); Mean Platelet Volume 11.1 fL (7.4-10.4); Monocytes # 0.6 10^3/uL (0.2-0.9); Neutrophils # 7.68 10^3/uL (1.8-7.7); Neutrophils % 83.2 %; Nucleated Red Blood Cells % 0 %; Platelet Count 202 10^3/cmm (157-399); Red Blood Count 3.11 10^6/uL (3.85-5.65); Red Cell Distribution Width 15.2 % (12.1-15.1); White Blood Count 9.23 10^3/uL (3.29-11.43)
[2024-09-20] MEDS: FUROsemide 10 mg/mL SDV 4mL 40 MG IVP ×2 (05:36→17:58)
[2024-09-20 05:53] LABS: Alanine Aminotransferase 22 U/L (0-33); Albumin Level 3.5 g/dL (3.5-5.2); Alkaline Phosphatase 69 U/L (35-105); Anion Gap 13.8 (5-19); Aspartate Amino Transferase 11 U/L (0-32); Blood Urea Nitrogen 75 mg/dL (8-23); Calcium 8.5 mg/dL (8.5-10.5); Carbon Dioxide 32 mmol/L (22-29); Chloride 102 mmol/L (98-107); Creatinine Clr Calc Pharmacy 27.4294; Glucose 240 mg/dL (65-115); Magnesium 1.9 mg/dL (1.7-2.3); Osmolality Calculated 326 mOsm/kg (285-295); Phosphorus 4.6 mg/dL (2.5-4.5); Potassium 4.8 mmol/L (3.5-5.1); Sodium 143 mmol/L (136-145); Total Bilirubin 0.2 mg/dL (0.15-1.2); Total Protein 5.5 g/dL (6.6-8.7)
[2024-09-20 06:02] LABS: Glucose Point of Care 244 mg/dL (70-110)
[2024-09-20 06:04] LABS: NT Pro B Type Natriuretic Pept 6707 pg/mL (0-125)
[2024-09-20] MEDS: insulin lispro 100 unit/1 mL SUBCUT ×4 (09:09→20:31)
[2024-09-20] MEDS: insulin glargine 100 units/1 mL 13 UNIT SUBCUT (09:52)
[2024-09-20] MEDS: pantoprazole DR 40 mg Tablet PO ×2 (09:55→17:58)
[2024-09-20] MEDS: predniSONE 10 mg Tablet PO (09:55)
[2024-09-20] MEDS: metOLazone 5 MG Tablet PO ×2 (09:55→18:05)
[2024-09-20] MEDS: clopidogrel 75 mg Tablet PO (09:55)
[2024-09-20] MEDS: potassium chloride ER 20 mEq Tablet 40 MEQ PO (09:55)
[2024-09-20] MEDS: cloNIDine 0.1 mg Tablet PO (09:55)
[2024-09-20] MEDS: metoprolol tartrate 25 mg Tablet 37.5 MG PO ×2 (09:56→17:58)
--- NOTE | 2024-09-20 11:26 | PC.SOCIAL ---
IMM Update pg 2 of IMM Updated and reviewed w/ patients guardian. Copy dated, initialed and placed in chart. Copy provided.
[2024-09-20 11:57] LABS: Glucose Point of Care 214 mg/dL (70-110)
[2024-09-20] MEDS: hyDRALAzine 25 mg Tablet PO ×2 (12:20→20:32)
[2024-09-20] MEDS: sucralfate 1 gm/10 mL Oral Liq UDC PO ×2 (12:20→18:05)
[2024-09-20] MEDS: lamoTRIgine 100 mg Tablet PO ×2 (12:20→20:32)
--- NOTE | 2024-09-20 15:36 | P.PN_ITS ---
Subjective 2 Subjective: Patient was seen this morning, she is alert to person, to place, not to time she has word salad she can follow commands, complains of wheezing, Vitals/I&O/Wt Last Vital Signs Temp 97.7 F 09/20/24 12:00 Pulse 61 09/20/24 13:38 Resp 16 09/20/24 13:22 BP 145/64 09/20/24 12:00 Pulse Ox 90 09/20/24 13:22 O2 Del Method Room Air 09/20/24 13:22 O2 Flow Rate 1 09/20/24 12:00 FiO2 30 09/15/24 07:59 09/20/24 09/20/24 09/20/24 06:59 14:59 22:59 Intake Total 356 / 356 Output Total 600 / 2250 900 / 900 Balance -600 / -1099 -544 / -544 Weight last 48 hrs Weight 131.95 kg Weight 131.95 kg Physical Exam 2 Const: COMMON NORMALS: no acute distress and patient oriented x3 Resp: COMMON NORMALS: normal respiratory effort, No retractions and No use of accessory muscles AUSCULTATION: wheezes Cardio: COMMON NORMALS: regular rate, regular rhythm, S1 normal heart sound present and S2 normal heart sound present RATE: regular rate RHYTHM: r egular rhythm HEART SOUNDS: S1 normal heart sound present and S2 normal heart sound present GI: COMMON NORMALS: Normal to inspection, nondistended, normoactive bowel sounds present and non-tender Extremity: NARRATIVE EXTREMITY EXAM: 3+ pitting edema Neuro: COMMON NORMALS: patient oriented x3 Psych: COMMON NORMALS: mental status grossly normal Urinary Catheter Management: Kent: Cath Placed During This Visit: yes Reason for Continuing Indwelling Catheter: Accurate Measurement of Urinary Output in Critically Ill Patients Urinary Catheter Date of Insertion: 09/14/24 Urinary Catheter Time of Insertion: 15:04 Data 09/20/24 04:46 09/20/24 04:46 A&P Assessment and plan (1) COPD (chronic obstructive pulmonary disease): Qualifiers: COPD type: unspecified COPD Qualified Code(s): J44.9 - Chronic obstructive pulmonary disease, unspecified (2) Acute encephalopathy: (3) CHF exacerbation: Plan Plan #Altered mental status #Acute metabolic encephalopathy secondary to hypercapnic respiratory acidosis ? Oriented to person, not to place, not to time, has word salad -Monitor mentation #Respiratory failure #Hypercapnic respiratory acidosis #Underlying OHS # Systolic CHF exacerbation -Continue BiPAP as needed during the day scheduled during the night ? Lasix 40 IV twice daily with metolazone #COPD exacerbation, prednisone 10 mg daily # T2DM, uncontrolled ?Cont. sliding scale insulin and Lantus to 13 units #Acute decompensated HFpEF -3+ pitting edema -Lasix 40 IV twice daily with metolazone #DELORIS on CKD Creatinine 3.0 monitor #Troponin level elevated -Telemetry monitoring #Essential hypertension ?Continue home medications with clonidine, hydralazine, metoprolol History of paranoia, depression, agitation continue Zyprexa, risperidone, Lamictal History of bradycardia status post pacemaker placement DVT prophylaxis: Lovenox Full code Diuresis continues to be lackluster, as patient continues to have 3+ pitting edema wheezing on examination will continue Lasix 40 IV twice daily, will give 2 doses of metolazone today further diuresis based on clinical progress Attestations 2 Medical Necessity Statement*: Patient requires hospitalization for respiratory failure fluid overload systolic CHF requiring IV diuresis Diagnoses Chronic obstructive pulmonary disease, unspecified COPD type J44.9 COPD type: unspecified COPD Acute encephalopathy G93.40 CHF exacerbation I50.9
[2024-09-20 16:35] LABS: Glucose Point of Care 246 mg/dL (70-110)
[2024-09-20 20:21] LABS: Glucose Point of Care 335 mg/dL (70-110)
[2024-09-20] MEDS: OLANZapine 5 mg TABLET PO (20:32)
[2024-09-20] MEDS: atorvastatin 40 mg Tablet PO (20:33)
--- NOTE | 2024-09-20 21:55 | PC.NURSE ---
Pt complains of itching/burning on back. Responds well to ice packs placed.
[2024-09-21] VITALS (14 sets, daily range): BP systolic 129–183; BP diastolic 56–85; PULSE 58–66; RESP 16–32; TEMP 36.3–37; O2SAT 93–98
[2024-09-21] MEDS: sucralfate 1 gm/10 mL Oral Liq UDC PO ×4 (00:32→17:30)
[2024-09-21] MEDS: ipratropium-albuterol 3 mL Neb INHALATION ×4 (01:23→19:39)
[2024-09-21 05:41] LABS: Basophils % 0.1 %; Eosinophils # 0.5 10^3/uL (0.0-0.8); Lymphocytes # 0.8 10^3/uL (0.8-4.8); Lymphocytes % 7.9 %; Mean Corpuscular Hemoglobin 27.6 pg (27-33); Mean Corpuscular Volume 92.2 fl (85-98); Mean Platelet Volume 10.6 fL (7.4-10.4); Monocytes # 0.6 10^3/uL (0.2-0.9); Monocytes % 5.8 %; Neutrophils % 80.7 %; Nucleated Red Blood Cells % 0 %; Platelet Count 201 10^3/cmm (157-399); Red Blood Count 2.93 10^6/uL (3.85-5.65); Red Cell Distribution Width 15.1 % (12.1-15.1); White Blood Count 10.16 10^3/uL (3.29-11.43)
[2024-09-21 06:18] LABS: NT Pro B Type Natriuretic Pept 7389 pg/mL (0-125)
[2024-09-21] MEDS: hyDRALAzine 25 mg Tablet PO ×3 (06:27→21:02)
[2024-09-21] MEDS: FUROsemide 10 mg/mL SDV 4mL 40 MG IVP ×2 (06:27→16:03)
[2024-09-21] MEDS: buPROPion XL (24 HR) 150 mg Tablet PO (06:27)
[2024-09-21] MEDS: risperiDONE 1 mg Tablet PO (06:27)
[2024-09-21] MEDS: lamoTRIgine 100 mg Tablet PO ×3 (06:27→21:02)
[2024-09-21 06:28] LABS: Alanine Aminotransferase 18 U/L (0-33); Albumin Level 3.3 g/dL (3.5-5.2); Alkaline Phosphatase 69 U/L (35-105); Anion Gap 12.6 (5-19); Aspartate Amino Transferase 8 U/L (0-32); Blood Urea Nitrogen 70 mg/dL (8-23); Calcium 8.7 mg/dL (8.5-10.5); Carbon Dioxide 31 mmol/L (22-29); Chloride 101 mmol/L (98-107); Creatinine Clr Calc Pharmacy 30.7209; Globulin 1.9 g/dL (1.3-4.6); Glomerular Filtration Rate 19.4 mL/min (90-130); Glucose 225 mg/dL (65-115); Magnesium 1.7 mg/dL (1.7-2.3); Osmolality Calculated 318 mOsm/kg (285-295); Phosphorus 3.2 mg/dL (2.5-4.5); Potassium 4.6 mmol/L (3.5-5.1); Sodium 140 mmol/L (136-145); Total Bilirubin 0.3 mg/dL (0.15-1.2); Total Protein 5.2 g/dL (6.6-8.7)
[2024-09-21 06:29] LABS: Glucose Point of Care 224 mg/dL (70-110)
[2024-09-21] MEDS: enoxaparin 30 mg/0.3 mL Syringe SUBCUT (09:06)
[2024-09-21] MEDS: insulin glargine 100 units/1 mL 13 UNIT SUBCUT (09:07)
[2024-09-21] MEDS: insulin lispro 100 unit/1 mL SUBCUT ×4 (09:07→21:03)
[2024-09-21] MEDS: metoprolol tartrate 25 mg Tablet 37.5 MG PO ×2 (09:45→17:29)
[2024-09-21] MEDS: clopidogrel 75 mg Tablet PO (09:46)
[2024-09-21] MEDS: pantoprazole DR 40 mg Tablet PO ×2 (09:46→17:29)
[2024-09-21] MEDS: predniSONE 10 mg Tablet PO (09:46)
[2024-09-21] MEDS: metOLazone 5 MG Tablet PO ×2 (09:46→17:30)
[2024-09-21] MEDS: cloNIDine 0.1 mg Tablet PO ×2 (09:46→17:30)
[2024-09-21] MEDS: potassium chloride ER 20 mEq Tablet 40 MEQ PO (09:46)
[2024-09-21 11:31] LABS: Glucose Point of Care 236 mg/dL (70-110)
[2024-09-21 16:43] LABS: Glucose Point of Care 290 mg/dL (70-110)
--- NOTE | 2024-09-21 17:33 | P.PN_ITS ---
Subjective 2 Subjective: Patient was seen this morning, she is alert to person, not to place, to time follows commands tells me that she is doing okay Vitals/I&O/Wt Last Vital Signs Temp 97.4 F L 09/21/24 15:38 Pulse 62 09/21/24 15:38 Resp 18 09/21/24 15:38 BP 142/61 09/21/24 15:38 Pulse Ox 95 09/21/24 15:38 O2 Del Method Nasal Cannula 09/21/24 15:38 O2 Flow Rate 1 09/21/24 13:42 FiO2 30 09/15/24 07:59 09/21/24 09/21/24 09/21/24 06:59 14:59 22:59 Intake Total 120 / 1116 720 / 720 Output Total 2200 / 3400 2200 / 2200 Balance -2080 / -2284 -1480 / -1480 Weight last 48 hrs Weight 134.082 kg Weight 131.95 kg Physical Exam 2 Const: COMMON NORMALS: no acute distress and patient oriented x3 Resp: COMMON NORMALS: normal respiratory effort, No retractions, No use of accessory muscles and clear to auscultation bilaterally AUSCULTATION: clear to auscultation bilaterally Cardio: COMMON NORMALS: regular rate, regular rhythm, S1 normal heart sound present and S2 normal heart sound present RATE: regular rate RHYTHM: r egular rhythm HEART SOUNDS: S1 normal heart sound present and S2 normal heart sound present GI: COMMON NORMALS: Normal to inspection, nondistended, normoactive bowel sounds present and non-tender Extremity: COMMON NORMALS: no calf tenderness NARRATIVE EXTREMITY EXAM: 2+ pitting edema Neuro: COMMON NORMALS: patient oriented x3 Psych: COMMON NORMALS: mental status grossly normal Urinary Catheter Management: Kent: Cath Placed During This Visit: yes Reason for Continuing Indwelling Catheter: Other Urinary Catheter Date of Insertion: 09/14/24 Urinary Catheter Time of Insertion: 15:04 Data 09/21/24 04:36 09/21/24 04:36 A&P Assessment and plan (1) COPD (chronic obstructive pulmonary disease): Qualifiers: COPD type: unspecified COPD Qualified Code(s): J44.9 - Chronic obstructive pulmonary disease, unspecified (2) Acute encephalopathy: (3) CHF exacerbation: Plan Plan #Altered mental status #Acute metabolic encephalopathy secondary to hypercapnic respiratory acidosis ? Oriented to person, not to place, not to time, has word salad -Monitor mentation #Respiratory failure #Hypercapnic respiratory acidosis #Underlying OHS # Systolic CHF exacerbation -Continue BiPAP as needed during the day scheduled during the night ? Lasix 40 IV twice daily with metolazone #COPD exacerbation, prednisone 10 mg daily # T2DM, uncontrolled ?Cont. sliding scale insulin and Lantus to 13 units #Acute decompensated HFpEF -3+ pitting edema -Lasix 40 IV twice daily with metolazone #DELORIS on CKD Creatinine 3.0 monitor #Troponin level elevated -Telemetry monitoring #Essential hypertension ?Continue home medications with clonidine, hydralazine, metoprolol History of paranoia, depression, agitation continue Zyprexa, risperidone, Lamictal History of bradycardia status post pacemaker placement DVT prophylaxis: Lovenox Full code 2+ pitting edema BNP over 7000 continue with chills on twice daily increase Lasix to 40 mg IV every 8 hours PDMP PDMP Reviewed: Not Reviewed Attestations 2 Medical Necessity Statement*: Patient requires hospitalization for fluid overload requiring IV diuresis Diagnoses Chronic obstructive pulmonary disease, unspecified COPD type J44.9 COPD type: unspecified COPD Acute encephalopathy G93.40 CHF exacerbation I50.9
[2024-09-21] MEDS: acetaminophen 325 mg Tablet 650 MG PO (17:38)
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
[2024-09-21 20:45] LABS: Glucose Point of Care 299 mg/dL (70-110)
[2024-09-21] MEDS: OLANZapine 5 mg TABLET PO (21:03)
[2024-09-21] MEDS: atorvastatin 40 mg Tablet PO (21:03)
[2024-09-22] VITALS (12 sets, daily range): BP systolic 148–178; BP diastolic 67–82; PULSE 59–65; RESP 16–20; TEMP 36.4–36.8; O2SAT 94–98; BMI 50.4
[2024-09-22] MEDS: sucralfate 1 gm/10 mL Oral Liq UDC PO ×4 (00:05→17:58)
[2024-09-22] MEDS: FUROsemide 10 mg/mL SDV 4mL 40 MG IVP ×3 (00:05→16:35)
[2024-09-22] MEDS: acetaminophen 325 mg Tablet 650 MG PO ×2 (00:30→16:36)
[2024-09-22] MEDS: hyDRALAzine 25 mg Tablet PO ×4 (01:35→20:33)
[2024-09-22] MEDS: ipratropium-albuterol 3 mL Neb INHALATION ×4 (02:34→20:36)
[2024-09-22] MEDS: lamoTRIgine 100 mg Tablet PO ×3 (04:07→20:33)
[2024-09-22 05:06] LABS: Basophils % 0.1 %; Eosinophils # 0.4 10^3/uL (0.0-0.8); Eosinophils % 4.3 %; Hematocrit 26.9 % (36-47); Lymphocytes # 0.7 10^3/uL (0.8-4.8); Lymphocytes % 7.5 %; Mean Corpuscular HGB Conc 30.5 g/dL (30-55); Mean Corpuscular Hemoglobin 27.4 pg (27-33); Mean Platelet Volume 10.4 fL (7.4-10.4); Monocytes # 0.5 10^3/uL (0.2-0.9); Monocytes % 5.7 %; Neutrophils # 7.67 10^3/uL (1.8-7.7); Nucleated Red Blood Cells % 0 %; Platelet Count 204 10^3/cmm (157-399); Red Blood Count 2.99 10^6/uL (3.85-5.65); Red Cell Distribution Width 15.1 % (12.1-15.1); White Blood Count 9.35 10^3/uL (3.29-11.43)
[2024-09-22] MEDS: buPROPion XL (24 HR) 150 mg Tablet PO (05:15)
[2024-09-22] MEDS: risperiDONE 1 mg Tablet PO (05:15)
[2024-09-22 05:31] LABS: Alanine Aminotransferase 15 U/L (0-33); Albumin Level 3.3 g/dL (3.5-5.2); Alkaline Phosphatase 70 U/L (35-105); Anion Gap 10.6 (5-19); Aspartate Amino Transferase 8 U/L (0-32); Blood Urea Nitrogen 64 mg/dL (8-23); Calcium 8.9 mg/dL (8.5-10.5); Carbon Dioxide 34 mmol/L (22-29); Chloride 101 mmol/L (98-107); Creatinine Clr Calc Pharmacy 35.2579; Globulin 1.8 g/dL (1.3-4.6); Glomerular Filtration Rate 22.5 mL/min (90-130); Glucose 209 mg/dL (65-115); Magnesium 1.6 mg/dL (1.7-2.3); Osmolality Calculated 316 mOsm/kg (285-295); Phosphorus 3.4 mg/dL (2.5-4.5); Potassium 4.6 mmol/L (3.5-5.1); Sodium 141 mmol/L (136-145); Total Bilirubin 0.4 mg/dL (0.15-1.2); Total Protein 5.1 g/dL (6.6-8.7)
[2024-09-22 06:32] LABS: Glucose Point of Care 203 mg/dL (70-110)
[2024-09-22] MEDS: insulin lispro 100 unit/1 mL SUBCUT ×4 (08:16→23:24)
[2024-09-22] MEDS: pantoprazole DR 40 mg Tablet PO ×2 (08:16→17:57)
[2024-09-22] MEDS: insulin glargine 100 units/1 mL 13 UNIT SUBCUT (08:16)
[2024-09-22] MEDS: clopidogrel 75 mg Tablet PO (08:17)
[2024-09-22] MEDS: cloNIDine 0.1 mg Tablet PO ×2 (08:17→17:58)
[2024-09-22] MEDS: predniSONE 10 mg Tablet PO (08:17)
[2024-09-22] MEDS: metoprolol tartrate 25 mg Tablet 37.5 MG PO ×2 (08:17→17:57)
[2024-09-22] MEDS: enoxaparin 30 mg/0.3 mL Syringe SUBCUT (08:18)
[2024-09-22] MEDS: metOLazone 5 MG Tablet PO (09:17)
[2024-09-22 11:14] LABS: Glucose Point of Care 265 mg/dL (70-110)
--- NOTE | 2024-09-22 11:15 | PC.SOCIAL ---
IMM Update pg 2 of IMM Updated and reviewed w/ patients guardian. Copy provided. Copy dated, initialed and placed in chart.
--- NOTE | 2024-09-22 16:07 | P.PN_ITS ---
Subjective 2 Subjective: Patient was seen this morning, sitting up in a chair, she is alert to person, she does know that she is in the hospital, follows commands, has no complaints this morning Vitals/I&O/Wt Last Vital Signs Temp 97.8 F 09/22/24 11:47 Pulse 61 09/22/24 13:39 Resp 18 09/22/24 13:39 BP 148/67 09/22/24 11:47 Pulse Ox 97 09/22/24 13:39 O2 Del Method Nasal Cannula 09/22/24 13:39 O2 Flow Rate 2 09/22/24 13:39 FiO2 30 09/15/24 07:59 09/22/24 09/22/24 09/22/24 06:59 14:59 22:59 Intake Total 400 / 1600 960 / 960 Output Total 2200 / 7350 2700 / 2700 Balance -1800 / -5750 -1740 / -1740 Weight last 48 hrs Weight 133.356 kg Weight 134.082 kg Physical Exam 2 Const: COMMON NORMALS: no acute distress ORIENTATION/CONSCIOUSNESS: Yes awake, Yes oriented to person and Yes oriented to place; not oriented to time Resp: COMMON NORMALS: normal respiratory effort, No retractions and No use of accessory muscles AUSCULTATION: crackles and wheezes Cardio: COMMON NORMALS: regular rate, regular rhythm, S1 normal heart sound present and S2 normal heart sound present RATE: regular rate RHYTHM: r egular rhythm HEART SOUNDS: S1 normal heart sound present and S2 normal heart sound present GI: COMMON NORMALS: Normal to inspection, nondistended, normoactive bowel sounds present and non-tender Extremity: NARRATIVE EXTREMITY EXAM: 2+ edema Neuro: SENSORIUM/ORIENTATION: Yes oriented to person, Yes oriented to place and No oriented to time Psych: COMMON NORMALS: mental status grossly normal Urinary Catheter Management: Kent: Cath Placed During This Visit: yes Reason for Continuing Indwelling Catheter: Accurate Measurement of Urinary Output in Critically Ill Patients Urinary Catheter Date of Insertion: 09/14/24 Urinary Catheter Time of Insertion: 15:04 Data 09/22/24 04:20 09/22/24 04:20 A&P Assessment and plan (1) COPD (chronic obstructive pulmonary disease): Qualifiers: COPD type: unspecified COPD Qualified Code(s): J44.9 - Chronic obstructive pulmonary disease, unspecified (2) Acute encephalopathy: (3) CHF exacerbation: Plan Plan #Altered mental status #Acute metabolic encephalopathy secondary to hypercapnic respiratory acidosis ? Oriented to person, not to place, not to time, has word salad -Monitor mentation #Respiratory failure #Hypercapnic respiratory acidosis #Underlying OHS # Systolic CHF exacerbation -Continue BiPAP as needed during the day scheduled during the night ? Lasix 40 IV twice daily with metolazone #COPD exacerbation, prednisone 10 mg daily # T2DM, uncontrolled ?Cont. sliding scale insulin and Lantus to 13 units #Acute decompensated HFpEF -3+ pitting edema -Lasix 40 IV twice daily with metolazone #DELORIS on CKD Creatinine 3.0 monitor #Troponin level elevated -Telemetry monitoring #Essential hypertension ?Continue home medications with clonidine, hydralazine, metoprolol History of paranoia, depression, agitation continue Zyprexa, risperidone, Lamictal History of bradycardia status post pacemaker placement DVT prophylaxis: Lovenox Full code 2+ pitting edema, BNP over 7000, still fluid overloaded continue IV diuresis PDMP PDMP Reviewed: Not Reviewed Attestations 2 Medical Necessity Statement*: Patient requires hospitalization for fluid overload requiring IV diuresis Diagnoses Chronic obstructive pulmonary disease, unspecified COPD type J44.9 COPD type: unspecified COPD Acute encephalopathy G93.40 CHF exacerbation I50.9
[2024-09-22 17:02] LABS: Glucose Point of Care 282 mg/dL (70-110)
[2024-09-22] MEDS: morphine 4 mg/mL SDV 1 mL 2 MG IVP (20:32)
[2024-09-22] MEDS: OLANZapine 5 mg TABLET PO (20:33)
[2024-09-22] MEDS: atorvastatin 40 mg Tablet PO (20:33)
[2024-09-22 20:53] LABS: Glucose Point of Care 312 mg/dL (70-110)
[2024-09-22 21:01] LABS: D Dimer 1.02 ug/mLFEU (0-0.59)
[2024-09-22 21:08] LABS: Troponin(5th) Baseline 80 ng/L (0-10)
[2024-09-22 22:29] LABS: Troponin 5 2HR 80.26 ng/L (0-10); Troponin 5 2HR Delta 0.26 ABS# (0-10)
[2024-09-23] VITALS (12 sets, daily range): BP systolic 150–170; BP diastolic 66–85; PULSE 59–66; RESP 16–18; TEMP 36.4–37; O2SAT 94–97
[2024-09-23 02:09] LABS: Basophils % 0.1 %; Eosinophils # 0.3 10^3/uL (0.0-0.8); Eosinophils % 3.9 %; Hematocrit 26.3 % (36-47); Lymphocytes # 0.9 10^3/uL (0.8-4.8); Lymphocytes % 10.8 %; Mean Corpuscular HGB Conc 30.8 g/dL (30-55); Mean Corpuscular Hemoglobin 27.6 pg (27-33); Mean Corpuscular Volume 89.8 fl (85-98); Mean Platelet Volume 10.2 fL (7.4-10.4); Monocytes # 0.7 10^3/uL (0.2-0.9); Monocytes % 7.9 %; Neutrophils # 6.53 10^3/uL (1.8-7.7); Neutrophils % 76.8 %; Nucleated Red Blood Cells % 0 %; Platelet Count 218 10^3/cmm (157-399); Red Blood Count 2.93 10^6/uL (3.85-5.65); Red Cell Distribution Width 15.1 % (12.1-15.1)
[2024-09-23 02:24] LABS: Troponin 5 6HR 86.24 ng/L (0-10); Troponin 5 6HR Delta 6.24 ng/L (0-12)
[2024-09-23 02:26] LABS: Alanine Aminotransferase 13 U/L (0-33); Albumin Level 3.3 g/dL (3.5-5.2); Alkaline Phosphatase 70 U/L (35-105); Anion Gap 13.2 (5-19); Aspartate Amino Transferase 9 U/L (0-32); Blood Urea Nitrogen 66 mg/dL (8-23); Calcium 8.8 mg/dL (8.5-10.5); Carbon Dioxide 35 mmol/L (22-29); Chloride 100 mmol/L (98-107); Creatinine Clr Calc Pharmacy 35.1395; Globulin 2.1 g/dL (1.3-4.6); Glomerular Filtration Rate 22.5 mL/min (90-130); Glucose 223 mg/dL (65-115); Magnesium 1.4 mg/dL (1.7-2.3); Osmolality Calculated 324 mOsm/kg (285-295); Phosphorus 3.5 mg/dL (2.5-4.5); Potassium 4.2 mmol/L (3.5-5.1); Sodium 144 mmol/L (136-145); Total Bilirubin 0.3 mg/dL (0.15-1.2); Total Protein 5.4 g/dL (6.6-8.7)
[2024-09-23 02:39] LABS: NT Pro B Type Natriuretic Pept 9488 pg/mL (0-125)
[2024-09-23] MEDS: FUROsemide 10 mg/mL SDV 4mL 40 MG IVP ×3 (05:27→21:27)
[2024-09-23] MEDS: risperiDONE 1 mg Tablet PO (05:28)
[2024-09-23] MEDS: sucralfate 1 gm/10 mL Oral Liq UDC PO ×5 (05:28→21:26)
[2024-09-23] MEDS: lamoTRIgine 100 mg Tablet PO ×3 (05:29→21:27)
[2024-09-23] MEDS: hyDRALAzine 25 mg Tablet PO ×3 (05:29→21:27)
[2024-09-23] MEDS: buPROPion XL (24 HR) 150 mg Tablet PO (05:30)
[2024-09-23 07:33] LABS: Glucose Point of Care 220 mg/dL (70-110)
[2024-09-23] MEDS: ipratropium-albuterol 3 mL Neb INHALATION ×3 (08:10→21:43)
[2024-09-23] MEDS: enoxaparin 30 mg/0.3 mL Syringe SUBCUT (09:12)
[2024-09-23] MEDS: insulin glargine 100 units/1 mL 13 UNIT SUBCUT (09:13)
[2024-09-23] MEDS: insulin lispro 100 unit/1 mL SUBCUT ×4 (09:13→21:27)
[2024-09-23] MEDS: metoprolol tartrate 25 mg Tablet 37.5 MG PO ×2 (09:14→17:22)
[2024-09-23] MEDS: metOLazone 5 MG Tablet PO (09:14)
[2024-09-23] MEDS: predniSONE 10 mg Tablet PO (09:14)
[2024-09-23] MEDS: cloNIDine 0.1 mg Tablet PO ×2 (09:15→17:23)
[2024-09-23] MEDS: pantoprazole DR 40 mg Tablet PO ×2 (09:16→17:23)
[2024-09-23] MEDS: clopidogrel 75 mg Tablet PO (09:16)
[2024-09-23 11:04] LABS: Glucose Point of Care 284 mg/dL (70-110)
--- NOTE | 2024-09-23 15:07 | P.PN_ITS ---
Subjective 2 Subjective: Patient was seen this morning, she is alert to person, is following commands, she has no specific complaints this morning continues to have 2+ pitting edema, diuresed 4500 mL yesterday Vitals/I&O/Wt Last Vital Signs Temp 97.7 F 09/23/24 11:40 Pulse 66 09/23/24 14:02 Resp 16 09/23/24 13:50 BP 151/78 09/23/24 11:40 Pulse Ox 96 09/23/24 13:50 O2 Del Method Nasal Cannula 09/23/24 13:50 O2 Flow Rate 1 09/23/24 13:50 FiO2 30 09/15/24 07:59 09/23/24 09/23/24 09/23/24 06:59 14:59 22:59 Intake Total 360 / 360 Output Total 1000 / 4500 1000 / 1000 Balance -1000 / -2360 -640 / -640 Weight last 48 hrs Weight 120.826 kg Weight 133.356 kg Physical Exam 2 Const: COMMON NORMALS: no acute distress and patient oriented x3 Resp: COMMON NORMALS: normal respiratory effort, No retractions, No use of accessory muscles and clear to auscultation bilaterally AUSCULTATION: clear to auscultation bilaterally Cardio: COMMON NORMALS: regular rate, regular rhythm, S1 normal heart sound present and S2 normal heart sound present RATE: regular rate RHYTHM: r egular rhythm HEART SOUNDS: S1 normal heart sound present and S2 normal heart sound present GI: COMMON NORMALS: Normal to inspection, nondistended, normoactive bowel sounds present and non-tender Extremity: COMMON NORMALS: no calf tenderness and no pedal edema Neuro: COMMON NORMALS: patient oriented x3 Psych: COMMON NORMALS: mental status grossly normal Skin: NARRATIVE SKIN EXAM: 2+ pitting edema Urinary Catheter Management: Kent: Cath Placed During This Visit: yes Reason for Continuing Indwelling Catheter: Accurate Measurement of Urinary Output in Critically Ill Patients Urinary Catheter Date of Insertion: 09/14/24 Urinary Catheter Time of Insertion: 15:04 Data 09/23/24 01:59 09/23/24 01:59 A&P Assessment and plan (1) COPD (chronic obstructive pulmonary disease): Qualifiers: COPD type: unspecified COPD Qualified Code(s): J44.9 - Chronic obstructive pulmonary disease, unspecified (2) Acute encephalopathy: (3) CHF exacerbation: Plan Plan #Altered mental status #Acute metabolic encephalopathy secondary to hypercapnic respiratory acidosis ? Oriented to person, not to place, not to time, has word salad -Monitor mentation #Respiratory failure #Hypercapnic respiratory acidosis #Underlying OHS # Systolic CHF exacerbation -Continue BiPAP as needed during the day scheduled during the night ? Lasix 40 IV twice daily with metolazone #COPD exacerbation, prednisone 10 mg daily # T2DM, uncontrolled ?Cont. sliding scale insulin and Lantus to 13 units #Acute decompensated HFpEF -3+ pitting edema -Lasix 40 IV twice daily with metolazone #DELORIS on CKD Creatinine 2.2 monitor #Troponin level elevated -Telemetry monitoring #Essential hypertension ?Continue home medications with clonidine, hydralazine, metoprolol History of paranoia, depression, agitation continue Zyprexa, risperidone, Lamictal History of bradycardia status post pacemaker placement DVT prophylaxis: Lovenox Full code 2+ pitting edema, BNP over 9488, still fluid overloaded continue IV diuresis PDMP PDMP Reviewed: Not Reviewed Attestations 2 Medical Necessity Statement*: Patient requires hospitalization for fluid overload requiring IV diuresis Diagnoses Chronic obstructive pulmonary disease, unspecified COPD type J44.9 COPD type: unspecified COPD Acute encephalopathy G93.40 CHF exacerbation I50.9
[2024-09-23 16:27] LABS: Glucose Point of Care 276 mg/dL (70-110)
[2024-09-23] MEDS: amoxicillin-clav 875-125 mg Tablet 1 TAB PO (17:22)
[2024-09-23] MEDS: potassium chloride ER 20 mEq Tablet 40 MEQ PO (17:23)
[2024-09-23 21:12] LABS: Glucose Point of Care 333 mg/dL (70-110)
[2024-09-23] MEDS: OLANZapine 5 mg TABLET PO (21:27)
[2024-09-23] MEDS: atorvastatin 40 mg Tablet PO (21:27)
[2024-09-24] VITALS (8 sets, daily range): BP systolic 128–181; BP diastolic 73–87; PULSE 59–78; RESP 9–18; TEMP 36.5–36.9; O2SAT 91–97
[2024-09-24] MEDS: ipratropium-albuterol 3 mL Neb INHALATION ×2 (02:04→08:47)
[2024-09-24] MEDS: sucralfate 1 gm/10 mL Oral Liq UDC PO ×2 (04:37→11:55)
[2024-09-24] MEDS: FUROsemide 10 mg/mL SDV 4mL 40 MG IVP ×2 (04:37→14:29)
[2024-09-24] MEDS: hyDRALAzine 25 mg Tablet PO ×2 (04:37→11:55)
[2024-09-24] MEDS: risperiDONE 1 mg Tablet PO (04:37)
[2024-09-24] MEDS: lamoTRIgine 100 mg Tablet PO ×2 (04:37→11:55)
[2024-09-24] MEDS: buPROPion XL (24 HR) 150 mg Tablet PO (04:37)
[2024-09-24 05:59] LABS: Basophils % 0.2 %; Eosinophils # 0.3 10^3/uL (0.0-0.8); Eosinophils % 3.4 %; Hematocrit 27.7 % (36-47); Lymphocytes % 10.4 %; Mean Corpuscular Hemoglobin 28.1 pg (27-33); Mean Corpuscular Volume 90.5 fl (85-98); Monocytes # 0.8 10^3/uL (0.2-0.9); Monocytes % 8.1 %; Neutrophils # 7.29 10^3/uL (1.8-7.7); Neutrophils % 77.3 %; Nucleated Red Blood Cells % 0 %; Platelet Count 241 10^3/cmm (157-399); Red Blood Count 3.06 10^6/uL (3.85-5.65); Red Cell Distribution Width 15.4 % (12.1-15.1); White Blood Count 9.43 10^3/uL (3.29-11.43)
[2024-09-24 06:17] LABS: Alanine Aminotransferase 13 U/L (0-33); Albumin Level 3.4 g/dL (3.5-5.2); Alkaline Phosphatase 76 U/L (35-105); Anion Gap 14.9 (5-19); Aspartate Amino Transferase 8 U/L (0-32); Blood Urea Nitrogen 60 mg/dL (8-23); Calcium 9.2 mg/dL (8.5-10.5); Carbon Dioxide 34 mmol/L (22-29); Chloride 97 mmol/L (98-107); Creatinine Clr Calc Pharmacy 31.6565; Globulin 2.3 g/dL (1.3-4.6); Glomerular Filtration Rate 21.3 mL/min (90-130); Glucose 228 mg/dL (65-115); Magnesium 1.3 mg/dL (1.7-2.3); Osmolality Calculated 318 mOsm/kg (285-295); Phosphorus 2.9 mg/dL (2.5-4.5); Potassium 3.9 mmol/L (3.5-5.1); Sodium 142 mmol/L (136-145); Total Bilirubin 0.4 mg/dL (0.15-1.2); Total Protein 5.7 g/dL (6.6-8.7)
[2024-09-24 06:28] LABS: Glucose Point of Care 234 mg/dL (70-110)
[2024-09-24 06:33] LABS: NT Pro B Type Natriuretic Pept 8193 pg/mL (0-125)
[2024-09-24] MEDS: clopidogrel 75 mg Tablet PO (08:39)
[2024-09-24] MEDS: metoprolol tartrate 25 mg Tablet 37.5 MG PO (08:39)
[2024-09-24] MEDS: predniSONE 10 mg Tablet PO (08:39)
[2024-09-24] MEDS: pantoprazole DR 40 mg Tablet PO (08:39)
[2024-09-24] MEDS: amoxicillin-clav 875-125 mg Tablet 1 TAB PO (08:39)
[2024-09-24] MEDS: insulin lispro 100 unit/1 mL SUBCUT ×2 (08:40→11:54)
[2024-09-24] MEDS: cloNIDine 0.1 mg Tablet PO (08:40)
[2024-09-24] MEDS: insulin glargine 100 units/1 mL 13 UNIT SUBCUT (08:40)
[2024-09-24] MEDS: metOLazone 5 MG Tablet PO (08:44)
--- NOTE | 2024-09-24 09:49 | P.DS_ITS ---
Discharge Providers Date of Admission: 09/14/24 10:51 Date of Discharge: September 24, 2024 Attending Provider at Admission: Gian Echeverria Attending Provider at Discharge: Raad Chung MD Primary Care Provider: Benigno Jennings DO Diagnoses at Discharge Discharge Diagnosis (1) COPD (chronic obstructive pulmonary disease): Status: Acute Qualifiers: COPD type: unspecified COPD Qualified Code(s): J44.9 - Chronic obstructive pulmonary disease, unspecified (2) Acute encephalopathy: Status: Resolved (3) CHF exacerbation: Status: Resolved Reason for Visit Reason for Visit: SOB Hospital Course Hospital Course 64-year-old lady, [place] resident with history of LEROY, morbid obesity, CVA, HTN, HLD, former smoker, who presents [facility] due to shortness of breath Patient was admitted to [facility] for acute hypoxic hypercapnic respiratory failure secondary to systolic CHF, COPD, overall clinically proved diuresed over 17 L negative. Will be discharged on Lasix 40 twice daily potassium replacement therapy, fluid restriction therapy Patient required hospitalization for acute encephalopathy likely secondary to hypercapnic respiratory failure, resolved Physical Exam Const: COMMON NORMALS: no acute distress ORIENTATION/CONSCIOUSNESS: Yes awake and Yes oriented to person; not oriented to place and not oriented to time Resp: COMMON NORMALS: normal respiratory effort, No retractions, No use of accessory muscles and clear to auscultation bilaterally AUSCULTATION: clear to auscultation bilaterally Cardio: COMMON NORMALS: regular rate, regular rhythm, S1 normal heart sound present and S2 normal heart sound present RATE: regular rate RHYTHM: regular rhythm HEART SOUNDS: S1 normal heart sound present and S2 normal heart sound present GI: COMMON NORMALS: Normal to inspection, nondistended, normoactive bowel sounds present and non-tender Extremity: NARRATIVE EXTREMITY EXAM: nonpitting edema Neuro: SENSORIUM/ORIENTATION: Yes oriented to person, No oriented to place and No oriented to time Psych: COMMON NORMALS: mental status grossly normal Urinary Catheter Management: [place]: Cath Placed During This Visit: yes Reason for Continuing Indwelling Catheter: Accurate Measurement of Urinary Output in Critically Ill Patients Urinary Catheter Date of Insertion: 09/14/24 Urinary Catheter Time of Insertion: 15:04 Discharge Data Studies Completed and Pending Completed Studies During Hospitalization Category Date Time Status CT head wo con* [id number] Stat Cat Scan 09/14/24 07:01 Completed XR chest 1V portable [id number] Stat Exams 09/14/24 06:29 Completed NM pul perfusion [id number] Routine Nuc Med 09/17/24 08:00 Completed US venous duplex lower extremity bilat [CV venous Ultrasound 09/14/24 09:24 [place] [id number]] Stat US venous duplex upper extremity RT [CV venous duplex Ultrasound 09/16/24 21:02 [place] [id number]] Routine Pending at discharge Category Date Time Status NT Pro B Type Natriuretic Pept QAM Lab 09/25/24 06:00 Ordered Sputum Culture and Gram Stain Routine Lab 09/15/24 10:15 Ordered Radiology Impressions Chest X-Ray 09/14/24 06:29 IMPRESSION: No acute cardiopulmonary disease. Head CT 09/14/24 07:01 IMPRESSION: No acute intracranial abnormality. Old infarcts. Pulmonary Perfusion Imaging 09/17/24 08:00 IMPRESSION: Normal perfusion lung scan. Laboratory Results WBC 9.43 10^3/uL (3.29-11.43) 09/24/24 05:42 RBC 3.06 10^6/uL (3.85-5.65) L 09/24/24 05:42 Hgb 8.60 g/dL (11.27-16.99) L 09/24/24 05:42 Hct 27.7 % (36-47) L 09/24/24 05:42 MCV 90.5 fl (85-98) 09/24/24 05:42 MCH 28.1 pg (27-33) 09/24/24 05:42 MCHC 31.0 g/dL (30-55) 09/24/24 05:42 RDW 15.4 % (12.1-15.1) H 09/24/24 05:42 Plt Count 241 10^3/cmm (157-399) 09/24/24 05:42 MPV 10.0 fL (7.4-10.4) 09/24/24 05:42 Neut % (Auto) 77.3 % 09/24/24 05:42 Lymph % (Auto) 10.4 % 09/24/24 05:42 [place] % (Auto) 8.1 % 09/24/24 05:42 Eos % (Auto) 3.4 % 09/24/24 05:42 Baso % (Auto) 0.2 % 09/24/24 05:42 Neut # (Auto) 7.29 10^3/uL (1.8-7.7) 09/24/24 05:42 Lymph # (Auto) 1.0 10^3/uL (0.8-4.8) 09/24/24 05:42 [place] # (Auto) 0.8 10^3/uL (0.2-0.9) 09/24/24 05:42 Eos # (Auto) 0.3 10^3/uL (0.0-0.8) 09/24/24 05:42 Baso # (Auto) 0.0 10^3/uL (0.0-0.1) 09/24/24 05:42 Nucleated RBC % (auto) 0 % 09/24/24 05:42 Nucleated RBCs # 0.0 /100WBC 09/24/24 05:42 APTT 79.8 SECONDS (23.9-36.7) H D 09/16/24 19:10 D-Dimer 1.02 ug/mLFEU (0-0.59) H 09/22/24 20:23 Specimen Type Arterial 09/15/24 09:32 Sample Site Radial, left 09/15/24 09:32 ABG pH 7.45 (7.35-7.45) 09/15/24 09:32 ABG pCO2 44.0 mmHg (35-45) 09/15/24 09:32 ABG pO2 76.5 mmHg (80.0-100.0) L 09/15/24 09:32 ABG HCO3 30.4 mmol/L (22-26) H 09/15/24 09:32 ABG O2 Saturation 96.9 09/15/24 09:32 ABG Base Excess 5.7 mmol/L (-2.0-2.0) H 09/15/24 09:32 Thien Test Pos 09/15/24 09:32 A-a O2 Gradient 2.5 mmHg (5-10) L 09/15/24 09:32 Hematocrit 26.1 % (37-47) L 09/15/24 09:32 Hgb O2 Saturation 94.6 % (95-100) L 09/15/24 09:32 Carboxyhemoglobin 1.4 %THgb (0.4-20.1) 09/15/24 09:32 Methemoglobin 1.0 % (0.4-1.5) 09/15/24 09:32 Total Hemoglobin 8.5 g/dL (12-16) L 09/15/24 09:32 Sodium 141.0 mmol/L (131-143) 09/15/24 09:32 Potassium 4.4 mmol/L (3.5-5.0) 09/15/24 09:32 Glucose 527.0 mg/dL (70-115) H 09/15/24 09:32 Ionized Calcium 1.2 mmol/L (1.1-1.4) 09/15/24 09:32 O2 Delivery Device Bipap 09/15/24 09:32 O2 Liters/Min 4.0 % 09/14/24 10:46 Radio Presenter ID Cak 09/15/24 09:32 Sodium 142 mmol/L (136-145) 09/24/24 05:42 Potassium 3.9 mmol/L (3.5-5.1) 09/24/24 05:42 Chloride 97 mmol/L (98-107) L 09/24/24 05:42 Carbon Dioxide 34 mmol/L (22-29) H 09/24/24 05:42 Anion Gap 14.9 (5-19) 09/24/24 05:42 BUN 60 mg/dL (8-23) H 09/24/24 05:42 Creatinine 2.3 mg/dL (0.5-0.9) H 09/24/24 05:42 GFR Calculation 21.3 mL/min (90-130) L 09/24/24 05:42 Glucose 228 mg/dL (65-115) H 09/24/24 05:42 POC Glucose 234 mg/dL (70-110) H 09/24/24 06:09 Calculated Osmolality 318 mOsm/kg (285-295) H 09/24/24 05:42 Lactic Acid 0.9 mmol/L (0.5-2.2) 09/14/24 06:00 Calcium 9.2 mg/dL (8.5-10.5) 09/24/24 05:42 Phosphorus 2.9 mg/dL (2.5-4.5) 09/24/24 05:42 Magnesium 1.3 mg/dL (1.7-2.3) L 09/24/24 05:42 Total Bilirubin 0.4 mg/dL (0.15-1.2) 09/24/24 05:42 AST 8 U/L (0-32) 09/24/24 05:42 ALT 13 U/L (0-33) 09/24/24 05:42 Alkaline Phosphatase 76 U/L (35-105) 09/24/24 05:42 Troponin T Baseline 80 ng/L (0-10) H 09/22/24 20:23 Troponin T 120 Minute 80.26 ng/L (0-10) H 09/22/24 22:01 Delta Troponin T 0.26 ABS# (0-10) 09/22/24 22:01 Troponin T Hi Sens 6Hr 86.24 ng/L (0-10) H 09/23/24 01:59 Troponin T Hi Sens 6Hr Delta 6.24 ng/L (0-12) 09/23/24 01:59 NT-Pro-B Natriuret Pep 8193 pg/mL (0-125) H 09/24/24 05:42 Total Protein 5.7 g/dL (6.6-8.7) L 09/24/24 05:42 Albumin 3.4 g/dL (3.5-5.2) L 09/24/24 05:42 Globulin 2.3 g/dL (1.3-4.6) 09/24/24 05:42 TSH 1.23 uIU/mL (0.27-4.20) 09/14/24 12:04 Urine Color Yellow (Yellow) 09/14/24 08:00 Urine Appearance Cloudy (CLEAR) A 09/14/24 08:00 Urine pH 5.5 (5-7) 09/14/24 08:00 Ur Specific [place] 1.024 (1.005-1.030) 09/14/24 08:00 Urine Protein 4+ (Negative) A 09/14/24 08:00 Urine Glucose (UA) 1+ (Normal) H 09/14/24 08:00 Urine Ketones Trace (Negative) 09/14/24 08:00 Urine Blood Negative (Negative) 09/14/24 08:00 Urine Nitrate Negative (Negative) 09/14/24 08:00 Urine Bilirubin Negative (Negative) 09/14/24 08:00 Urine Urobilinogen 0.2 mg/dL (Negative) 09/14/24 08:00 Ur Leukocyte Esterase Negative (Negative) 09/14/24 08:00 Urine RBC 0-2 /hpf (0-2) 09/14/24 08:00 Urine WBC 0-5 /hpf (0-5) 09/14/24 08:00 Ur Squamous Epith Cells 0-5 /hpf (0-5) 09/14/24 08:00 Amorphous Sediment Not Reportable 09/14/24 08:00 Urine Bacteria 3+ /hpf (NONE) H 09/14/24 08:00 Hyaline Casts 75.28 /lpf 09/14/24 08:00 Nasal MRSA (PCR) Not detected (Not Detecte) 09/14/24 15:10 Coronavirus (PCR) Negative (Negative) 09/14/24 08:05 Influenza A (PCR) Negative (Negative) 09/14/24 08:05 Influenza Type B (PCR) Negative (Negative) 09/14/24 08:05 RSV (PCR) Negative (Negative) 09/14/24 08:05 Vitals Last Vital Signs Temp 98.4 F 09/24/24 07:59 Pulse 59 L 09/24/24 07:59 Resp 18 09/24/24 07:59 BP 172/76 09/24/24 08:40 Pulse Ox 91 09/24/24 07:59 O2 Del Method Room Air 09/24/24 07:59 O2 Flow Rate 1 09/23/24 20:00 FiO2 30 09/15/24 07:59 Discharge Plan Discharge Patient Disposition: Home Condition: Stable Prescriptions: New potassium chloride [Klor-Con 10] 10 mEq tablet extended release 10 meq PO BID 30 Days Qty: 60 0RF magnesium L-lactate 84 mg tablet extended release 84 mg PO BID 30 Days Qty: 60 0RF amoxicillin-pot clavulanate 875-125 mg Tablet 1 tab PO BID 5 Days Qty: 10 0RF Continued allopurinol 300 mg tablet 300 mg PO DAILY Qty: 90 0RF tramadol 50 mg tablet 50 mg PO Q6H PRN (Reason: pain) Qty: 120 5RF atorvastatin 40 mg tablet 40 mg PO BEDTIME cetirizine 10 mg Tablet 10 mg PO DAILY magnesium hydroxide [Milk of Magnesia] 400 mg/5 mL Suspension 30 ml PO DAILY PRN (Reason: Constipation) calcium carbonate 500 mg calcium (1,250 mg) Tablet,Chewable 500 mg PO Q8H PRN (Reason: gastro-esophageal reflux) acetaminophen [Tylenol] 325 mg Tablet 650 mg PO Q6H PRN (Reason: PAIN OR ELEVATED TEMP) clopidogrel 75 mg tablet 75 mg PO DAILY metoprolol tartrate 25 mg tablet 37.5 mg PO BID ondansetron HCl 4 mg tablet 4 mg PO Q6H PRN (Reason: Nausea And Vomiting) ascorbic acid (vitamin C) [Vitamin C] 500 mg tablet 500 mg PO DAILY diphenhydramine HCl [Banophen] 25 mg Capsule 25 mg PO Q12H PRN (Reason: Allergy Symptoms) lidocaine 5 % Adhesive Patch,Medicated 1 patch TOPICAL Q12H PRN (Reason: Pain) Rx Instructions: leave on most painful area for up to 12 hrs fluticasone propionate 50 mcg/actuation spray,suspension 1 spray INTRANASAL Q12H PRN (Reason: ALLERGIES) risperidone 1 mg Tablet 1 mg PO QAM lamotrigine 100 mg Tablet 100 mg PO TID bupropion HCl 150 mg Tablet Extended Release 24 Hr 150 mg PO QAM eszopiclone 3 mg tablet 3 mg PO BEDTIME olanzapine 5 mg tablet 5 mg PO BEDTIME hydralazine 25 mg Tablet 25 mg PO Q8H melatonin 5 mg Tablet 10 mg PO BEDTIME sucralfate 100 mg/mL Suspension 1 g PO Q6H 30 Days Qty: 1200 0RF insulin aspart U-100 [Novolog FlexPen U-100 Insulin] 100 unit/mL (3 mL) insulin pen See Rx Instructions .ROUTE .COMPLEX Qty: 15 0RF Rx Instructions: Inject, subcut, 3 times daily, after meals, based on sliding scale provided insulin glargine [Lantus Solostar U-100 Insulin] 100 unit/mL (3 mL) insulin pen 10 unit SUBCUT DAILY Qty: 15 0RF pantoprazole [Protonix] 40 mg tablet,delayed release (DR/EC) 40 mg PO BID 30 Days Qty: 60 0RF clonidine HCl 0.1 mg tablet 0.1 mg PO BID 30 Days Qty: 60 0RF Changed furosemide [Lasix] 40 mg tablet 40 mg PO Q12H 30 Days Qty: 60 0RF Discontinued omeprazole 20 mg Capsule,Delayed Release(Dr/Ec) 20 mg PO DAILY potassium chloride [Klor-Con M20] 20 mEq tablet,ER particles/crystals 20 meq PO DAILY 30 Days Qty: 30 0RF No Action (DME) Dexcom G7 Sensor Device See Rx Instructions .Route Qty: 1 0RF Rx Instructions: As directed (DME) Dexcom G7 Dice Table Operator Misc See Rx Instructions .Route Qty: 1 6RF Rx Instructions: As directed Discharge Orders: Discharge Order (Routine); Ordered 09/24/24 Ordered By: Raad Chung Referrals: [facility]leen [Outside] Benigno Jennings DO [Primary Care Provider] - Discharge Diet: Cardiac Discharge Activity: Resume usual activity Patient Instructions: Opioid Safety Activity Restrictions/Additional Instructions: - Recheck potassium and creatinine on Friday -Limit fluid intake to 1500 mL Discharge Attestations Time Spent in Discharge Care*: greater than 30 min Status at Discharge: Cognitive status at discharge: cognitively intact , Behavioral status at discharge: cooperative , Quality Metrics Clinical Quality Measures [ No reported AMI, CVA or VTE this stay] Coding Level of Care Code 37888 Total time (in minutes) for Discharge: 45 Diagnoses Chronic obstructive pulmonary disease, unspecified COPD type J44.9 COPD type: unspecified COPD Acute encephalopathy G93.40 CHF exacerbation I50.9
[2024-09-24] MEDS: magnesium sulfate premix 1 GM/100 ML PIGGYBACK IV (10:33)
[2024-09-24] MEDS: enoxaparin 30 mg/0.3 mL Syringe SUBCUT (10:34)
[2024-09-24 10:47] LABS: Glucose Point of Care 268 mg/dL (70-110)
--- NOTE | 2024-09-24 11:46 | PC.SOCIAL ---
IMM Update pg 2 of IMM updated and reviewed w/ patients guardian. Copy in chart, dated, and initialed. Copy left @ bedside.
== END 2024-09-24 15:55 | disposition intermediate care facility (04) | DRG 291 ==
LOC: ER 10:45 → MEDSURG 10:51 → ICU 13:11 → MEDSURG 09-16 18:33
PROVIDERS: Internal Medicine; Admitting Provider Internal Medicine; Emergency Provider Family Medicine; PCP Family Medicine; Visit Provider Family Medicine
DX: I11.0 Hypertensive heart disease with heart failure (principal); I50.33 Acute on chronic diastolic (congestive) heart failure; J96.02 Acute respiratory failure with hypercapnia; J96.01 Acute respiratory failure with hypoxia; J44.1 Chronic obstructive pulmonary disease with (acute) exacerbation; G93.49 Other encephalopathy; E66.2 Morbid (severe) obesity with alveolar hypoventilation; Z68.42 Body mass index [BMI] 45.0-49.9, adult; E87.29 Other acidosis; E78.5 Hyperlipidemia, unspecified; D64.9 Anemia, unspecified; R79.1 Abnormal coagulation profile; R79.89 Other specified abnormal findings of blood chemistry; E11.9 Type 2 diabetes mellitus without complications; F41.9 Anxiety disorder, unspecified; F32.A Depression, unspecified; R45.1 Restlessness and agitation; Z86.73 Personal history of transient ischemic attack (TIA), and cerebral infarction without residual deficits; Z87.891 Personal history of nicotine dependence; Z95.0 Presence of cardiac pacemaker; Z79.02 Long term (current) use of antithrombotics/antiplatelets
CPT/HCPCS: 36415; 36416; 36600; 51702; 70450; 71045; 78580; 80048; 80051; 80053; 81001; 82330; 82805; 82962; 83605; 83735; 83880; 84100; 84443; 84484; 85025; 85378; 85730; 87040; 87637; 93005; 93970; 93971; 94640; 94660; 94664; 96365; 96372; 96375; 96376; 97110; 97116; 97162; 97165; 97530; 97535; 99285; A9540; J0360; J1644; J1650; J1815; J1940; J2270; J2405; J2543; J2919; J3475; J7512; P9046

== ENCOUNTER 2024-10-02 09:58 | Outpatient (CLI) | payer MEDICARE, SELFPAY ==
[2024-10-02 10:49] LABS: NT Pro B Type Natriuretic Pept 2496 pg/mL (0-125); Potassium 4.3 mmol/L (3.5-5.1)
== END 2024-10-02 09:59 | disposition home or self-care (01) ==
LOC: LAB 10:00
PROVIDERS: PCP Family Medicine; Visit Provider Family Medicine
DX: I10 Essential (primary) hypertension (principal)
CPT/HCPCS: 82565; 83880; 84132

== ENCOUNTER 2024-11-20 11:13 | Inpatient (IN) | payer MEDICARE, SELFPAY ==
[2024-11-20] VITALS (15 sets, daily range): BP systolic 93–143; BP diastolic 41–70; PULSE 60–71; RESP 24–42; TEMP 36.1–37.3; O2SAT 92–100; BMI 61.7
--- NOTE | 2024-11-20 11:50 | XRR_ITS ---
PROCEDURE INFORMATION: Exam: XR Chest Exam date and time: 11/20/2024 1:08 PM Age: 64 years old Clinical indication: Shortness of breath; Prior surgery; Surgery date: 6+ months; Surgery type: Pacemaker; SOB; Fluid retention; Sepsis alert TECHNIQUE: Imaging protocol: Radiologic exam of the chest. Views: 1 view. COMPARISON: CR XR chest 1V portable [id number] 09/14/2024 6:45 AM FINDINGS: Tubes, catheters and devices: Dual lead cardiac pacer without appreciable change. Lungs: Low lung volumes are again noted. Pleural spaces: Unremarkable. No pleural effusion. No pneumothorax. Heart/Mediastinum: Unremarkable. No cardiomegaly. Bones/joints: Unremarkable. XR/XR chest 1V portable [id number] IMPRESSION: No acute findings. Low lung volumes.
[2024-11-20 11:59] LABS: Basophils % 0.3 %; Eosinophils % 0.1 %; Hematocrit 27.1 % (36-47); Lymphocytes # 0.2 10^3/uL (0.8-4.8); Lymphocytes % 2.2 %; Mean Corpuscular HGB Conc 29.2 g/dL (30-55); Mean Corpuscular Hemoglobin 24.7 pg (27-33); Mean Corpuscular Volume 84.7 fl (85-98); Mean Platelet Volume 9.8 fL (7.4-10.4); Monocytes # 0.7 10^3/uL (0.2-0.9); Neutrophils # 9.24 10^3/uL (1.8-7.7); Neutrophils % 89.8 %; Nucleated Red Blood Cells % 0 %; Platelet Count 262 10^3/cmm (157-399); Red Cell Distribution Width 15.8 % (12.1-15.1); White Blood Count 10.29 10^3/uL (3.29-11.43)
[2024-11-20 12:03] LABS: INR 1.07 (0.8-1.2); Partial Thromboplastin Time 30.2 SECONDS (23.9-36.7)
[2024-11-20] MEDS: ipratropium-albuterol 3 mL Neb INHALATION ×3 (12:06→21:54)
[2024-11-20 12:08] LABS: Alanine Aminotransferase 30 U/L (0-33); Albumin Level 3.5 g/dL (3.5-5.2); Alkaline Phosphatase 170 U/L (35-105); Anion Gap 17.8 (5-19); Aspartate Amino Transferase 25 U/L (0-32); Blood Urea Nitrogen 77 mg/dL (8-23); Calcium 8.6 mg/dL (8.5-10.5); Carbon Dioxide 20 mmol/L (22-29); Chloride 105 mmol/L (98-107); Creatinine Clr Calc Pharmacy 25.1574; Globulin 2.5 g/dL (1.3-4.6); Glomerular Filtration Rate 13.2 mL/min (90-130); Glucose 202 mg/dL (65-115); Magnesium 1.6 mg/dL (1.7-2.3); Osmolality Calculated 313 mOsm/kg (285-295); Potassium 5.8 mmol/L (3.5-5.1); Sodium 137 mmol/L (136-145); Total Bilirubin 0.4 mg/dL (0.15-1.2)
--- NOTE | 2024-11-20 12:09 | ECG_ITS ---
[employer] Test Date: 2024-11-20 Pat Name: Hilda Wallace Department: Room: Gender: Female [employer]: : 1960 Requested By: Jessica Mariano Order Number: [id number] Kyler MD: VETO LATHAM Measurements Intervals [place] Rate: 60 P: -56 TN: 274 QRS: -47 QRSD: 148 T: 72 QT: 433 QTc: 433 Interpretive Statements ELECTRONIC ATRIAL PACEMAKER RIGHT BUNDLE BRANCH BLOCK [120+ ms QRS DURATION, UPRIGHT V1, 40+ ms S IN I/aVL/V4/V5/V6] LEFT ANTERIOR FASCICULAR BLOCK [QRS AXIS <= -45, QR IN I, RS IN II] LEFT VENTRICULAR HYPERTROPHY AND ST-T CHANGE [VOLTAGE CRITERIA PLUS ST/T ABNORMALITY] Compared to ECG 09/14/2024 12:48:03 Left anterior fascicular block now present Sinus rhythm no longer present Left-axis deviation no longer present ST (T wave) deviation still present Electronically Signed On 11-21-2024 22:05:53 CDT by VETO LATHAM [email or web address]
[2024-11-20 12:10] LABS: Lactic Sepsis W/Reflex 2.1 mmol/L (0.5-2.2)
[2024-11-20 12:25] LABS: ABG PCO2 40.5 mmHg (35-45); ABG PH Result 7.31 (7.35-7.45); Alveolar-Arterial Oxygen Gradi 9.4 mmHg (5-10); Arterial Blood Gas Hematocrit 23.4 % (37-47); Base Excess ABG -5.3 mmol/L (-2.0-2.0); Blood Gas Operator Identificat AMH; Blood Gas Sample Site Brachial, left; Blood Gas Sample Type Arterial; Carboxyhemoglobin 1.7 %THgb (0.4-20.1); HCO3 ABG 20.5 mmol/L (22-26); HGB O2 Sat 92.2 % (95-100); Ionized Calcium Level - ABG 1.2 mmol/L (1.1-1.4); Methemoglobin 1.3 % (0.4-1.5); Oxygen Device NC; Oxygen Saturation ABG 95.1; PO2 ABG 76.9 mmHg (80.0-100.0); PO2 FiO2 Ratio Arterial Blood 274; Potassium Level - ABG 5.7 mmol/L (3.5-5.0); Total Hemoglobin 7.6 g/dL (12-16)
--- NOTE | 2024-11-20 12:28 | W.ED.WEAKNES ---
HPI - Weakness General: Chief complaint: Weakness Stated complaint: weakness Time Seen by Provider: 11/20/24 11:44 History of Present Illness: This patient is a 64-year-old female presenting with weakness. She resides in a fpc. She is not able to provide me with much of a history as she seems quite confused. She is alert and answers questions but her answers do not make a lot of sense. She does appear short of breath. She is morbidly obese. She has impressive edema and blistering on her lower legs. She chronically uses oxygen and is on 1 to 2 L. Her oxygen saturation here was around 92% on that during my exam. Past medical records were reviewed and reveal extensive history including CHF, chronic kidney problems, hypertension, psychiatric issues. [facility] ED PFSH: Medical History DELORIS (acute kidney injury) Altered mental status Paranoid Expressive aphasia Anxiety and depression Lives in assisted living facility Rotator cuff tear, right Diabetes mellitus insulin dependent Essential (primary) hypertension Depression due to cerebrovascular accident (CVA) Expressive aphasia Hypomagnesemia Bilateral pneumonia Hyponatremia Hyperkalemia Right humeral fracture Metabolic encephalopathy Resolved Acute delirium Resolved Pneumonia due to COVID-19 virus Resolved Poor social situation Multinodular thyroid Acute embolic stroke Recurrent falls Resolved History of CVA (cerebrovascular accident) Acute hypersomnolence disorder LEROY on CPAP Essential hypertension Wernicke dysphasia Diabetes mellitus with neuropathy Mixed hyperlipidemia Surgical History History of nasal sinusotomy History of cholecystectomy History of tonsillectomy History of repair of rotator cuff History of hysterectomy for indication other than malignancy History of bursectomy Hx of adenoidectomy Status post anal fissurectomy History of colonoscopy Family History Mother CAD (coronary artery disease) Other Asthma Cancer Diabetes Heart disease Hypertension Stroke Social History Smoking and tobacco/nicotine status: former use of tobacco/nicotine Alcohol intake: current Alcohol intake frequency: few times a month Substance/Drug Use: never Physical Exam Const: NUTRITIONAL APPEARANCE: obese morbidly obese ORIENTATION/CONSCIOUSNESS: Yes awake and Yes confused HENMT: HEAD & SCALP: normal to inspection FACE & SINUS: normal facial exam Eye: GENERAL EYE: appearance normal, both eyes and all related structures Neck/C-Spine: COMMON NORMALS: supple Chest: COMMONS NORMALS: normal inspection of the chest Resp: EFFORT & INSPECTION: Yes tachypneic, Yes respiratory distress, Yes uses accessory muscles and Yes audible wheezes Cardio: COMMON NORMALS: regular rate, regular rhythm and No murmurs present (Cardio) RATE: regular rate RHYTHM: regular rhythm GI: COMMON NORMALS: Normal to inspection, nondistended, normoactive bowel sounds present, Soft to palpation and non-tender INSPECTION: Yes normal to inspection AUSCULTATION: Yes normoactive bowel sounds PALPATION: Yes Soft to palpation Back/Pelvis: COMMON NORMALS: thoracic and lumbar spine normal to inspection Extremity: NARRATIVE EXTREMITY EXAM: Both lower extremities with edema. The right lower extremity has large blisters with clear drainage. These do not appear to be infected. Neuro: OTHER: Speech is somewhat slurred and garbled. She seems confused. Her exam is nonfocal but is somewhat limited. Course Vital Signs: Vital signs: Vital Signs Temperature 97.8 F 11/20/24 15:00 Pulse Rate 62 11/20/24 15:00 Respiratory Rate 40 H 11/20/24 15:00 Blood Pressure 116/59 11/20/24 15:00 Pulse Oximetry 97 11/20/24 15:00 Oxygen Delivery Me thod Nasal Cannula 11/20/24 15:00 Oxygen Flow Rate 1 11/20/24 15:00 MDM - Weakness Medical Decision Making Patient with some encephalopathy. I ordered an ABG concerned that this might be hypercarbic. That did not bowl turner to be the case. She was given albuterol and ipratropium for her wheezing. She also has a history of CHF and was given Lasix, 80 mg IV. Her labs reveal worsening kidney failure. Her BUN is 77 and her creatinine was 3. Her potassium was also elevated at 5.8. Her EKG shows a paced rhythm with a right bundle branch block. This was not significantly changed from previous. Chest x-ray did not show pneumonia. Urine was definitely infected. She was given IV levofloxacin to cover the UTI. Lactic was also ordered due to concern for possible sepsis but this was normal. Blood cultures were sent. Urine culture was sent. Kent was placed. She will be admitted to the stepdown unit Lab Data 11/20/24 11:23 11/20/24 11:23 Radiology Impressions Chest X-Ray 11/20/24 11:50 IMPRESSION: No acute findings. Low lung volumes. Laboratory Results WBC 10.29 10^3/uL (3.29-11.43) 11/20/24 11:23 RBC 3.20 10^6/uL (3.85-5.65) L 11/20/24 11:23 Hgb 7.90 g/dL (11.27-16.99) L 11/20/24 11:23 Hct 27.1 % (36-47) L 11/20/24 11:23 MCV 84.7 fl (85-98) L 11/20/24 11:23 MCH 24.7 pg (27-33) L 11/20/24 11:23 MCHC 29.2 g/dL (30-55) L 11/20/24 11:23 RDW 15.8 % (12.1-15.1) H 11/20/24 11:23 Plt Count 262 10^3/cmm (157-399) 11/20/24 11:23 MPV 9.8 fL (7.4-10.4) 11/20/24 11:23 Neut % (Auto) 89.8 % 11/20/24 11:23 Lymph % (Auto) 2.2 % 11/20/24 11:23 Camas % (Auto) 7.0 % 11/20/24 11:23 Eos % (Auto) 0.1 % 11/20/24 11:23 Baso % (Auto) 0.3 % 11/20/24 11:23 Neut # (Auto) 9.24 10^3/uL (1.8-7.7) H 11/20/24 11:23 Lymph # (Auto) 0.2 10^3/uL (0.8-4.8) L 11/20/24 11:23 Camas # (Auto) 0.7 10^3/uL (0.2-0.9) 11/20/24 11:23 Eos # (Auto) 0.0 10^3/uL (0.0-0.8) 11/20/24 11:23 Baso # (Auto) 0.0 10^3/uL (0.0-0.1) 11/20/24 11:23 Nucleated RBC % (auto) 0 % 11/20/24 11:23 Nucleated RBCs # 0.0 /100WBC 11/20/24 11:23 PT 14.70 SECONDS (12.1-14.9) 11/20/24 11:23 INR 1.07 (0.8-1.2) 11/20/24 11:23 APTT 30.2 SECONDS (23.9-36.7) 11/20/24 11:23 Specimen Type Arterial 11/20/24 12:14 Sample Site Brachial, left 11/20/24 12:14 ABG pH 7.31 (7.35-7.45) L 11/20/24 12:14 ABG pCO2 40.5 mmHg (35-45) 11/20/24 12:14 ABG pO2 76.9 mmHg (80.0-100.0) L 11/20/24 12:14 ABG PO2/FiO2 Ratio 274 11/20/24 12:14 ABG HCO3 20.5 mmol/L (22-26) L 11/20/24 12:14 ABG O2 Saturation 95.1 11/20/24 12:14 ABG Base Excess -5.3 mmol/L (-2.0-2.0) L 11/20/24 12:14 Thien Test N/a 11/20/24 12:14 A-a O2 Gradient 9.4 mmHg (5-10) 11/20/24 12:14 Hematocrit 23.4 % (37-47) L 11/20/24 12:14 Hgb O2 Saturation 92.2 % (95-100) L 11/20/24 12:14 Carboxyhemoglobin 1.7 %THgb (0.4-20.1) 11/20/24 12:14 Methemoglobin 1.3 % (0.4-1.5) 11/20/24 12:14 Total Hemoglobin 7.6 g/dL (12-16) L 11/20/24 12:14 Sodium 138.0 mmol/L (131-143) 11/20/24 12:14 Potassium 5.7 mmol/L (3.5-5.0) H 11/20/24 12:14 Glucose 186.0 mg/dL (70-115) H 11/20/24 12:14 Ionized Calcium 1.2 mmol/L (1.1-1.4) 11/20/24 12:14 O2 Delivery Device Nc 11/20/24 12:14 O2 Liters/Min 2.0 % 11/20/24 12:14 FiO2 28.0 % 11/20/24 12:14 Alto Singer ID Amh 11/20/24 12:14 Sodium 137 mmol/L (136-145) 11/20/24 11:23 Potassium 5.8 mmol/L (3.5-5.1) H 11/20/24 11:23 Chloride 105 mmol/L (98-107) 11/20/24 11:23 Carbon Dioxide 20 mmol/L (22-29) L 11/20/24 11:23 Anion Gap 17.8 (5-19) 11/20/24 11:23 BUN 77 mg/dL (8-23) H 11/20/24 11:23 Creatinine 3.5 mg/dL (0.5-0.9) H 11/20/24 11:23 GFR Calculation 13.2 mL/min (90-130) L 11/20/24 11:23 Glucose 202 mg/dL (65-115) H 11/20/24 11:23 Calculated Osmolality 313 mOsm/kg (285-295) H 11/20/24 11:23 Lactic Acid 2.1 mmol/L (0.5-2.2) 11/20/24 11:23 Calcium 8.6 mg/dL (8.5-10.5) 11/20/24 11:23 Magnesium 1.6 mg/dL (1.7-2.3) L 11/20/24 11:23 Total Bilirubin 0.4 mg/dL (0.15-1.2) 11/20/24 11:23 AST 25 U/L (0-32) 11/20/24 11:23 ALT 30 U/L (0-33) 11/20/24 11:23 Alkaline Phosphatase 170 U/L (35-105) H 11/20/24 11:23 NT-Pro-B Natriuret Pep 5596 pg/mL (0-125) H 11/20/24 11:23 Total Protein 6.0 g/dL (6.6-8.7) L 11/20/24 11:23 Albumin 3.5 g/dL (3.5-5.2) 11/20/24 11:23 Globulin 2.5 g/dL (1.3-4.6) 11/20/24 11:23 Procalcitonin 0.25 ng/mL (0-0.5) 11/20/24 11:23 Urine Color Yellow (Yellow) 11/20/24 12:35 Urine Appearance Cloudy (CLEAR) A 11/20/24 12:35 Urine pH 6 (5-7) 11/20/24 12:35 Ur Specific Warren 1.010 (1.005-1.030) 11/20/24 12:35 Urine Protein 3+ (Negative) A 11/20/24 12:35 Urine Glucose (UA) Norm (Normal) 11/20/24 12:35 Urine Ketones Negative (Negative) 11/20/24 12:35 Urine Blood Neg (Negative) 11/20/24 12:35 Urine Nitrate Positive (Negative) A 11/20/24 12:35 Urine Bilirubin Neg (Negative) 11/20/24 12:35 Urine Urobilinogen Neg mg/dL (Negative) 11/20/24 12:35 Ur Leukocyte Esterase 2+ (Negative) A 11/20/24 12:35 Urine RBC 0-2 /hpf (0-2) 11/20/24 12:35 Urine WBC 21-50 /hpf (0-5) H 11/20/24 12:35 Ur Squamous Epith Cells 0-5 /hpf (0-5) 11/20/24 12:35 Amorphous Sediment Not Reportable 11/20/24 12:35 Urine Bacteria 4+ /hpf (NONE) H 11/20/24 12:35 Hyaline Casts 14.06 /lpf 11/20/24 12:35 All radiology interpretation(s) finalized by discharge Discharge Plan Discharge Patient Disposition: Admitted As Inpatient Admit Provider: Patel Jones Clinical Impression: Diabetes mellitus with neuropathy, Hyperkalemia, Bilateral leg edema, UTI (urinary tract infection), CHF (congestive heart failure), CKD (chronic kidney disease) Condition: Stable Coding Level of Care Code ED Administration Vice President for Chg Fwd Related Data Home Medications ?Medication ?Instructions ?Recorded ?Confirmed clopidogrel 75 mg tablet 75 mg PO DAILY 07/08/20 09/14/24 metoprolol tartrate 25 mg tablet 37.5 mg PO BID 07/08/20 09/14/24 acetaminophen 325 mg tablet 650 mg PO Q6H PRN PAIN OR ELEVATED 10/03/21 09/14/24 (Tylenol) TEMP atorvastatin 40 mg tablet 40 mg PO BEDTIME 10/03/21 09/14/24 calcium carbonate 500 mg PO Q8H PRN 10/03/21 09/14/24 gastro-esophageal reflux cetirizine 10 mg tablet 10 mg PO DAILY 10/03/21 09/14/24 magnesium hydroxide 400 mg/5 mL 30 ml PO DAILY PRN Constipation 10/03/21 09/14/24 oral suspension (Milk of Magnesia) ascorbic acid (vitamin C) 500 mg 500 mg PO DAILY 03/03/24 09/14/24 tablet (Vitamin C) diphenhydramine HCl 25 mg capsule 25 mg PO Q12H PRN Allergy Symptoms 03/03/24 09/14/24 (Banophen) fluticasone propionate 50 1 spray intranasal Q12H PRN 03/03/24 09/14/24 mcg/actuation nasal ALLERGIES spray,suspension lidocaine 5 % topical patch 1 patch topical Q12H PRN Pain 03/03/24 09/14/24 ondansetron HCl 4 mg tablet 4 mg PO Q6H PRN Nausea And Vomiting 03/03/24 09/14/24 bupropion HCl 150 mg 24 hr tablet, 150 mg PO QAM 07/16/24 09/14/24 extended release eszopiclone 3 mg tablet 3 mg PO BEDTIME 07/16/24 09/14/24 lamotrigine 100 mg tablet 100 mg PO TID 07/16/24 09/14/24 risperidone 1 mg tablet 1 mg PO QAM 07/16/24 09/14/24 hydralazine 25 mg tablet 25 mg PO Q8H 08/30/24 09/14/24 melatonin 5 mg tablet 10 mg PO BEDTIME 08/30/24 09/14/24 olanzapine 5 mg tablet 5 mg PO BEDTIME 08/30/24 09/14/24 Previous Rx's ?Medication ?Instructions ?Recorded allopurinol 300 mg tablet 300 mg PO DAILY #90 tabs 05/03/20 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 meter,continuous #1 ea 03/12/23 (Rapid RMS G7 Vehicle Dismantler) 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 sensor (DexOBOOK G7 #1 ea 03/12/23 Sensor device) tramadol 50 mg tablet 50 mg PO Q6H PRN pain #120 tabs 11/18/23 insulin aspart U-100 100 unit/mL See Rx Instructions .Route 09/07/24 (3 mL) subcutaneous pen (Novolog .COMPLEX #15 mL FlexPen U-100 Insulin aspart) insulin glargine 100 unit/mL (3 10 unit (0.1 mL) SUBCUT DAILY #15 09/07/24 mL) subcutaneous pen (Lantus mL Solostar U-100 Insulin) Allergies Allergy/AdvReac Type Severity Reaction Status Date / Time clarithromycin (From Biaxin) Allergy nausea Verified 09/14/24 06:32 clindamycin Allergy shock Verified 09/14/24 06:32 diclofenac Allergy swelling Verified 09/14/24 06:32 enalapril Allergy unknown Verified 09/14/24 06:32 ketorolac (From Toradol) Allergy short of Verified 09/14/24 06:32 breath losartan (From Cozaar) Allergy shock Verified 09/14/24 06:32 nifedipine (From Procardia) Allergy hives Verified 09/14/24 06:32 pregabalin (From Lyrica) Allergy unknown Verified 09/14/24 06:32 Sulfa (Sulfonamide Allergy anaphylasix Verified 09/14/24 06:32 Antibiotics)
[2024-11-20] MEDS: methylPREDNISolone sod succ 125 mg/2 mL INJ IVP (12:41)
[2024-11-20] MEDS: calcium gluconate 0.1 gm/mL 10% SDV 10mL 1 GM IVP (12:44)
[2024-11-20 12:47] LABS: Bacteria Urine 4+ /hpf; Hyaline Casts Urine 14.06 /lpf; RBC Urine 0-2 /hpf (0-2); Squamous Epithelial Cell Urine 0-5 /hpf (0-5); WBC Urine 21-50 /hpf (0-5)
[2024-11-20] MEDS: insulin regular-human 100 units/1 mL 5 UNIT IVP (12:52)
[2024-11-20 12:53] LABS: Add Urine Microscopic? YES; Bilirubin Urine Neg (Negative); Blood Urine Neg (Negative); Glucose Urine UA Norm (Normal); Ketones Urine Negative (Negative); Leukocyte Esterase Urine 2+ (Negative); Nitrate Urine Positive (Negative); Protein Urine 3+ (Negative); UA Slide Review UA Slide Review Perf; Urine Appearance Cloudy (CLEAR); Urine Color Yellow (Yellow); Urobilinogen Urine Neg (Negative); pH Urine 6 (5-7)
[2024-11-20] MEDS: FUROsemide 10 mg/mL SDV 10mL 80 MG IVP (13:00)
[2024-11-20] MEDS: sodium chloride 0.9% 1,000 ML 999 ML IV (13:02)
--- NOTE | 2024-11-20 13:05 | PC.NURSE ---
pt requesting water, provider okayed, pt given cup of ice water. tolerates fine with no cough or clearing after drink.
[2024-11-20] MEDS: levofloxacin-dextrose 5 % 750 MG/150 ML PREMIX 100 MG IV (13:14)
[2024-11-20 13:18] LABS: Reflex Lactate Order REFLEX LACTIC ORDERD
[2024-11-20 14:01] LABS: NT Pro B Type Natriuretic Pept 5596 pg/mL (0-125)
--- NOTE | 2024-11-20 14:51 | PC.NURSE ---
Kayleen called and spoke to Vy, updated that pt is being admitted to [facility].
[2024-11-20 14:54] LABS: Lactic Acid level (Lactate) 1.4 mmol/L (0.5-2.2)
[2024-11-20 15:45] LABS: Procalcitonin 0.25 ng/mL (0-0.5)
--- NOTE | 2024-11-20 16:21 | PM.HP ---
Providers/Chief Complaint Admitting Physician: Patel Jones MD Primary Care Provider: Benigno Jennings DO Chief Complaint: weakness History of Present Illness History taken through chart review and conversation with the nurse from [facility]. Hilda Wallace is a 64 year old female with past medical history of Warnicke's encephalopathy, CVA, type 2 diabetes mellitus, dysphagia, hypothyroidism, obstructive sleep apnea, hypertension, pacemaker implantation for severe bradycardia, depression, anxiety, paranoia presents today from assisted living because of weakness and confusion. As per the nurse from the assisted living patient seems short of breath today and breathing fast lung with more confused and sleepy than her baseline hence she was sent to the ER. Patient has been complaining of feeling cold for last 3 to 4 days. Nursing staff denies any diarrhea, nausea, vomiting, fever, changes in her medications recently. Review of Systems General: Reports: ROS unobtainable due to mental status Medications/Allergies Home Medications ?Medication ?Instructions ?Recorded ?Confirmed ?Last Taken ?Type allopurinol 300 mg tablet 300 mg PO DAILY #90 tabs 05/03/20 09/14/24 08/29/24 Rx clopidogrel 75 mg tablet 75 mg PO DAILY 07/08/20 09/14/24 08/29/24 History metoprolol tartrate 25 mg tablet 37.5 mg PO BID 07/08/20 09/14/24 08/29/24 History acetaminophen 325 mg tablet 650 mg PO Q6H PRN PAIN OR ELEVATED 10/03/21 09/14/24 01/15/24 History (Tylenol) TEMP atorvastatin 40 mg tablet 40 mg PO BEDTIME 10/03/21 09/14/24 08/28/24 History calcium carbonate 500 mg PO Q8H PRN 10/03/21 09/14/24 03/02/24 History gastro-esophageal reflux cetirizine 10 mg tablet 10 mg PO DAILY 10/03/21 09/14/24 08/29/24 History magnesium hydroxide 400 mg/5 mL 30 ml PO DAILY PRN Constipation 10/03/21 09/14/24 Unknown History oral suspension (Milk of Magnesia) 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 meter,continuous #1 ea 03/12/23 09/14/24 Unknown Rx (Dexcom G7 Vp Software) 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 sensor (Dexcom G7 #1 ea 03/12/23 09/14/24 Unknown Rx Sensor device) tramadol 50 mg tablet 50 mg PO Q6H PRN pain #120 tabs 11/18/23 09/14/24 08/25/24 Rx ascorbic acid (vitamin C) 500 mg 500 mg PO DAILY 03/03/24 09/14/24 08/29/24 History tablet (Vitamin C) diphenhydramine HCl 25 mg capsule 25 mg PO Q12H PRN Allergy Symptoms 03/03/24 09/14/24 03/02/24 History (Banophen) fluticasone propionate 50 1 spray intranasal Q12H PRN 03/03/24 09/14/24 Unknown History mcg/actuation nasal ALLERGIES spray,suspension lidocaine 5 % topical patch 1 patch topical Q12H PRN Pain 03/03/24 09/14/24 Unknown History ondansetron HCl 4 mg tablet 4 mg PO Q6H PRN Nausea And Vomiting 03/03/24 09/14/24 Unknown History bupropion HCl 150 mg 24 hr tablet, 150 mg PO QAM 07/16/24 09/14/24 08/29/24 History extended release eszopiclone 3 mg tablet 3 mg PO BEDTIME 07/16/24 09/14/24 08/28/24 History lamotrigine 100 mg tablet 100 mg PO TID 07/16/24 09/14/24 08/30/24 History risperidone 1 mg tablet 1 mg PO QAM 07/16/24 09/14/24 08/29/24 History hydralazine 25 mg tablet 25 mg PO Q8H 08/30/24 09/14/24 08/29/24 History melatonin 5 mg tablet 10 mg PO BEDTIME 08/30/24 09/14/24 08/28/24 History olanzapine 5 mg tablet 5 mg PO BEDTIME 08/30/24 09/14/24 08/28/24 History insulin aspart U-100 100 unit/mL See Rx Instructions .Route 09/07/24 09/14/24 08/30/24 Rx (3 mL) subcutaneous pen (Novolog .COMPLEX #15 mL FlexPen U-100 Insulin aspart) insulin glargine 100 unit/mL (3 10 unit (0.1 mL) SUBCUT DAILY #15 09/07/24 09/14/24 08/29/24 Rx mL) subcutaneous pen (Lantus mL Solostar U-100 Insulin) Allergies Allergy/AdvReac Type Severity Reaction Status Date / Time clarithromycin (From Biaxin) Allergy nausea Verified 09/14/24 06:32 clindamycin Allergy shock Verified 09/14/24 06:32 diclofenac Allergy swelling Verified 09/14/24 06:32 enalapril Allergy unknown Verified 09/14/24 06:32 ketorolac (From Toradol) Allergy short of Verified 09/14/24 06:32 breath losartan (From Cozaar) Allergy shock Verified 09/14/24 06:32 nifedipine (From Procardia) Allergy hives Verified 09/14/24 06:32 pregabalin (From Lyrica) Allergy unknown Verified 09/14/24 06:32 Sulfa (Sulfonamide Allergy anaphylasix Verified 09/14/24 06:32 Antibiotics) PFSH Acute PFSH: Medical History (Updated 11/20/24 @ 16:28 by Patel Jones MD) LEROY on CPAP Chronic anemia Pacemaker Acute pancreatitis Sinus pause DELORIS (acute kidney injury) Altered mental status Paranoid Expressive aphasia Anxiety and depression Lives in assisted living facility Rotator cuff tear, right Diabetes mellitus insulin dependent Essential (primary) hypertension Depression due to cerebrovascular accident (CVA) Expressive aphasia Hypomagnesemia Bilateral pneumonia Hyponatremia Hyperkalemia Right humeral fracture Metabolic encephalopathy Resolved Acute delirium Resolved Pneumonia due to COVID-19 virus Resolved Poor social situation Multinodular thyroid Acute embolic stroke Recurrent falls Resolved History of CVA (cerebrovascular accident) Acute hypersomnolence disorder Essential hypertension Wernicke dysphasia Diabetes mellitus with neuropathy Mixed hyperlipidemia Surgical History History of nasal sinusotomy History of cholecystectomy History of tonsillectomy History of repair of rotator cuff History of hysterectomy for indication other than malignancy History of bursectomy Hx of adenoidectomy Status post anal fissurectomy History of colonoscopy Family History Mother CAD (coronary artery disease) Other Asthma Cancer Diabetes Heart disease Hypertension Stroke Social History Smoking and tobacco/nicotine status: former use of tobacco/nicotine Alcohol intake: current Alcohol intake frequency: few times a month Substance/Drug Use: never Vitals/I&O/Wt Last Vital Signs Temp 97.8 F 11/20/24 15:00 Pulse 60 11/20/24 16:05 Resp 36 H 11/20/24 16:05 BP 116/59 11/20/24 15:00 Pulse Ox 93 11/20/24 16:05 O2 Del Method Nasal Cannula 11/20/24 16:05 O2 Flow Rate 1 11/20/24 16:05 11/20/24 11/20/24 11/20/24 06:59 14:59 22:59 Intake Total 1150 / 1150 Balance 1150 / 1150 Weight last 48 hrs Weight 163.293 kg Physical Exam Narrative: General: No acute distress, drowsy and sleeping on examination, wakes up to physical stimulus, on waking up AAOx1, morbidly obese, on 1 L NC HEENT: PERRLA, pupils bilaterally equal and reactive Chest: CVS: S1-S2 regular, no murmurs, no tachycardia, no gallops, no rubs Abdomen: Soft, nontender, no organomegaly, bowel sounds present Neuro: No focal deficits, no facial deformity, Urinary Catheter Management: Kent: Cath Placed During This Visit: yes Urinary Catheter Date of Insertion: 11/20/24 Data 11/20/24 11:23 11/20/24 11:23 Micro: Microbiology 11/20/24 12:00 Blood Culture - Preliminary Blood SPECIMEN COLLECTED 11/20/24 12:05 Blood Culture - Preliminary Blood SPECIMEN COLLECTED A&P Assessment and plan (1) Shortness of breath: (2) Acute metabolic encephalopathy: (3) Acute kidney injury superimposed on CKD: (4) Chronic anemia: (5) COPD (chronic obstructive pulmonary disease): Qualifiers: COPD type: unspecified COPD Qualified Code(s): J44.9 - Chronic obstructive pulmonary disease, unspecified (6) Diastolic heart failure: Qualifiers: Heart failure chronicity: unspecified Qualified Code(s): I50.30 - Unspecified diastolic (congestive) heart failure (7) Bilateral leg edema: (8) LEROY on CPAP: (9) Essential hypertension: (10) Insulin dependent type 2 diabetes mellitus: (11) Hyperkalemia: (12) UTI (urinary tract infection): (13) History of CVA (cerebrovascular accident): (14) Expressive aphasia: (15) Mental and behavioral problems with communication (including speech): Plan 64-year-old with past medical history of sleep apnea, COPD, diastolic heart failure, pacemaker implantation, expressive aphasia due to CVA, depression and paranoia presents to the ER with difficulty breathing, altered mental status found to have possible UTI and bilateral lower limb edema. Shortness of breath: Hypoxia: Requiring up to 1 L of oxygen supplementation. Patient does have history of COPD, LEROY on CPAP, diastolic heart failure. Oxygen supplementation keeping saturation over 90%. Appreciate ABG in ER showing mild metabolic acidosis, mild hypoxia. No concern for hypercapnia. Check respiratory viral panel, blood culture, urine culture. Pulmicort twice daily, DuoNeb every 6 hour. Solu-Medrol 40 mg every 12 hourly. Fluid restriction to less than 1500 cc. Strict input output charting, daily weights. Kent catheterization. IV Bumex 1 mg Q8 hourly. Methasone 5 mg oral daily. Continue with home CPAP. Altered mental status: Patient has a history of expressive aphasia with behavior problem with communication problem in the past due to CVA. Slight worsening currently most likely in setting of UTI. Cannot rule out viral prodrome. Cannot rule out polypharmacy. Patient seems to be on the same medication on while she was discharged on 09/11. For now continue with home dose of BuSpar 150 mg oral daily, lamotrigine 100 mg oral 3 times daily, risperidone 1 mg every morning. Holding off on home dose of olanzapine for now. Once patient is more awake will restart. UTI: Appreciate urine analysis. Nitrite positive. Appreciate old cultures. Follow-up urine culture blood culture. For now start on IV Zosyn. Bilateral lower limb edema: With blisters. Cannot rule out cellulitis. IV antibiotic as above. MRSA swab negative in the past. Diuretics and antibiotic as above. Type 2 diabetes mellitus: Most recent A1c 6.6. Sliding-scale low-dose protocol. Holding off on Lantus for now. DELORIS on CKD: Baseline creatinine 2.1-2.5. Currently 3.5. Medical reconciliation done for nephrotoxic drugs. Monitor renal functions daily. Does have mild hyperkalemia on admission. Mild metabolic acidosis. Received treatment for hyperkalemia in ER. Repeat BMP. Hypertension: Goal blood pressure less than 140/90 mmHg. Restart home hydralazine 25 mg every 8 hourly, metoprolol 37.5 mg twice daily. Uptitrate as for goal blood pressure. Full code N.p.o. except meds. Will start on diet once patient is more awake. Protonix for PUD prophylaxis Heparin 5000 Q12 hourly for DVT prophylaxis PDMP PDMP Reviewed: Not Reviewed Attestations Medical Necessity Statement*: Admission for more than 2 midnights for management of hypoxia in setting of COPD exacerbation, diastolic heart failure, DELORIS on CKD, altered mental status in setting of UTI Diagnoses Shortness of breath R06.02 Acute metabolic encephalopathy G93.41 Acute kidney injury superimposed on CKD N17.9; N18.9 Chronic anemia D64.9 Chronic obstructive pulmonary disease, unspecified COPD type J44.9 COPD type: unspecified COPD Diastolic heart failure, unspecified HF chronicity I50.30 Heart failure chronicity: unspecified Bilateral leg edema R60.0 LEROY on CPAP G47.33; Z99.89 Essential hypertension I10 Insulin dependent type 2 diabetes mellitus E11.9; Z79.4 Hyperkalemia E87.5 UTI (urinary tract infection) N39.0 History of CVA (cerebrovascular accident) Z86.73 Expressive aphasia R47.01 Mental and behavioral problems with communication (including speech) F80.9
[2024-11-20 16:38] LABS: Glucose Point of Care 199 mg/dL (70-110)
[2024-11-20 17:19] LABS: Anion Gap 17.4 (5-19); Calcium 8.1 mg/dL (8.5-10.5); Carbon Dioxide 20 mmol/L (22-29); Chloride 105 mmol/L (98-107); Glomerular Filtration Rate 15.1 mL/min (90-130); Glucose 176 mg/dL (65-115); Osmolality Calculated 311 mOsm/kg (285-295); Potassium 6.4 mmol/L (3.5-5.1); Sodium 136 mmol/L (136-145)
[2024-11-20 17:20] LABS: Creatinine Clr Calc Pharmacy 28.4035
[2024-11-20 17:21] LABS: Blood Urea Nitrogen 83 mg/dL (8-23)
[2024-11-20] MEDS: heparin 5,000 unit/mL INJ 1 mL 5000 UNIT SUBCUT (17:54)
[2024-11-20] MEDS: piperacillin-tazobactam 3.375 GM in sodium chloride 0.9% (plus) 50 ML IV (17:55)
[2024-11-20] MEDS: bumetanide 0.25 mg/mL SDV 4 mL 1 MG IVP (17:55)
[2024-11-20] MEDS: pantoprazole 40 mg SDV IVP (17:55)
[2024-11-20 19:52] LABS: Adenovirus Not Detected (NOT DETECT); Chlamydia Pneumoniae Not Detected (NOT DETECT); Coronavirus 229E,HKU1,NL63,OC4 Not Detected (NOT DETECT); Human Metapneumovirus Not Detected (NOT DETECT); Human Rhinovirus/Enterovirus Not Detected (NOT DETECT); Influenza A Not Detected (NOT DETECT); Influenza A H1 Not Detected (NOT DETECT); Influenza A H1-2009 Not Detected (NOT DETECT); Influenza A H3 Not Detected (NOT DETECT); Influenza B Not Detected (NOT DETECT); Mycoplasma Pneumoniae Not Detected (NOT DETECT); Parainfluenza Virus Type 1 Not Detected (NOT DETECT); Parainfluenza Virus Type 2 Not Detected (NOT DETECT); Parainfluenza Virus Type 3 Not Detected (NOT DETECT); Parainfluenza Virus Type 4 Not Detected (NOT DETECT); Respiratory Syncytial Virus A Not Detected (NOT DETECT); Respiratory Syncytial Virus B Not Detected (NOT DETECT); SARS-COV-2 Not Detected (NOT DETECT)
[2024-11-20 20:12] LABS: Glucose Point of Care 227 mg/dL (70-110)
[2024-11-20] MEDS: insulin lispro 100 unit/1 mL SUBCUT (20:56)
--- NOTE | 2024-11-20 21:35 | PC.NURSE ---
Notified Dr. Hanks that patient is breathing 38 RR and has increase WOB. Requesting Bipap instead of Cpap, as discussed with RT who felt she would benefit better from bipap for WOB. Received orders for Bipap with RT to titrate.
[2024-11-20] MEDS: budesonide 0.5 mg/2 mL Neb INHALATION (21:54)
[2024-11-20] MEDS: calcium gluconate 0.9% NaCL 1 GM/50 ML PREMIX IV ×2 (22:16→22:58)
[2024-11-20] MEDS: sodium bicarbonate 8.4% 1 mEq/mL 50mL Syr 50 MEQ IVP (22:16)
[2024-11-21] VITALS (26 sets, daily range): BP systolic 106–133; BP diastolic 46–76; PULSE 60–67; RESP 16–28; TEMP 35.9–36.8; O2SAT 92–100
[2024-11-21] MEDS: methylPREDNISolone sod succ 40 mg/mL INJ IVP ×2 (00:24→12:10)
[2024-11-21] MEDS: piperacillin-tazobactam 3.375 GM in sodium chloride 0.9% (plus) 50 ML IV ×3 (00:26→20:52)
[2024-11-21] MEDS: bumetanide 0.25 mg/mL SDV 4 mL 1 MG IVP ×3 (00:26→17:26)
[2024-11-21] MEDS: ipratropium-albuterol 3 mL Neb INHALATION ×4 (02:39→20:19)
[2024-11-21] MEDS: heparin 5,000 unit/mL INJ 1 mL 5000 UNIT SUBCUT ×2 (04:53→17:26)
[2024-11-21 05:01] LABS: Basophils % 0.1 %; Hematocrit 22.9 % (36-47); Lymphocytes # 0.3 10^3/uL (0.8-4.8); Lymphocytes % 3.1 %; Mean Corpuscular HGB Conc 29.3 g/dL (30-55); Mean Corpuscular Hemoglobin 25.4 pg (27-33); Mean Corpuscular Volume 86.7 fl (85-98); Mean Platelet Volume 10.3 fL (7.4-10.4); Monocytes # 0.1 10^3/uL (0.2-0.9); Monocytes % 1.1 %; Neutrophils # 8.38 10^3/uL (1.8-7.7); Neutrophils % 95.4 %; Nucleated Red Blood Cells % 0 %; Platelet Count 206 10^3/cmm (157-399); Red Blood Count 2.64 10^6/uL (3.85-5.65); Red Cell Distribution Width 15.7 % (12.1-15.1); White Blood Count 8.79 10^3/uL (3.29-11.43)
[2024-11-21 05:19] LABS: Alanine Aminotransferase 22 U/L (0-33); Albumin Level 3.1 g/dL (3.5-5.2); Alkaline Phosphatase 137 U/L (35-105); Anion Gap 18.9 (5-19); Aspartate Amino Transferase 14 U/L (0-32); Calcium 8.1 mg/dL (8.5-10.5); Carbon Dioxide 21 mmol/L (22-29); Chloride 102 mmol/L (98-107); Creatinine Clr Calc Pharmacy 24.4586; Globulin 1.7 g/dL (1.3-4.6); Glomerular Filtration Rate 12.7 mL/min (90-130); Glucose 214 mg/dL (65-115); Magnesium 1.7 mg/dL (1.7-2.3); Osmolality Calculated 318 mOsm/kg (285-295); Phosphorus 4.8 mg/dL (2.5-4.5); Potassium 5.9 mmol/L (3.5-5.1); Sodium 136 mmol/L (136-145); Total Bilirubin 0.3 mg/dL (0.15-1.2); Total Protein 4.8 g/dL (6.6-8.7)
[2024-11-21 05:27] LABS: Procalcitonin 0.39 ng/mL (0-0.5)
[2024-11-21 05:37] LABS: Blood Urea Nitrogen 96 mg/dL (8-23)
[2024-11-21 06:33] LABS: Glucose Point of Care 224 mg/dL (70-110)
[2024-11-21] MEDS: budesonide 0.5 mg/2 mL Neb INHALATION ×2 (07:24→20:19)
[2024-11-21] MEDS: insulin lispro 100 unit/1 mL SUBCUT ×4 (08:25→20:52)
--- NOTE | 2024-11-21 08:45 | PC.NURSE ---
Blood transfusuion ordered for patient. Patient unable to consent herself, guardian Brenton Ibanez was called and two nurse verification complete for consent. Blood transfusion initiated. Patient tolerating well. Nurse will continue to monitor.
[2024-11-21] MEDS: risperiDONE 1 mg Tablet PO (10:06)
[2024-11-21] MEDS: metOLazone 5 MG Tablet PO (10:06)
[2024-11-21] MEDS: allopurinol 300 mg Tablet PO (10:06)
[2024-11-21] MEDS: lamoTRIgine 100 mg Tablet PO ×3 (10:06→20:52)
[2024-11-21] MEDS: clopidogrel 75 mg Tablet PO (10:06)
[2024-11-21] MEDS: buPROPion XL (24 HR) 150 mg Tablet PO (10:07)
[2024-11-21] MEDS: sodium polystyrene sulfonate 15 gm/60 mL Btl PO (12:04)
[2024-11-21 12:09] LABS: Glucose Point of Care 225 mg/dL (70-110)
--- NOTE | 2024-11-21 13:01 | P.PN_ITS ---
Subjective 2 Subjective: Overnight patient has remained on CPAP. As per the nursing staff patient has not been using CPAP at [facility]. Today morning examination patient laying down in her bed with her eyes closed. Wakes up to verbal stimulus. More awake today. Denies any nausea or vomiting. Complaining of abdominal pain. Did have bowel movement today today morning. Hemodynamically stable. On CPAP overnight. Transition to 1 L saturating more than 95%. Vitals/I&O/Wt Last Vital Signs Temp 97.8 F 11/21/24 12:59 Pulse 60 11/21/24 12:59 Resp 18 11/21/24 12:59 BP 132/57 11/21/24 12:59 Pulse Ox 95 11/21/24 12:59 O2 Del Method Nasal Cannula 11/21/24 12:00 O2 Flow Rate 1 11/21/24 12:00 FiO2 28 11/21/24 10:53 11/20/24 11/21/24 11/21/24 22:59 06:59 14:59 Intake Total 100 / 1250 100 / 1350 350 / 350 Output Total 426 / 426 100 / 100 Balance 100 / 1250 -326 / 924 250 / 250 Weight last 48 hrs Weight 132.165 kg Weight 163.293 kg Physical Exam 2 Narrative: General: No acute distress, drowsy and sleeping on examination, wakes up to physical stimulus, on waking up AAOx1, morbidly obese, on 1 L NC HEENT: PERRLA, pupils bilaterally equal and reactive Chest: CVS: S1-S2 regular, no murmurs, no tachycardia, no gallops, no rubs Abdomen: Soft, nontender, no organomegaly, bowel sounds present Neuro: No focal deficits, no facial deformity, Urinary Catheter Management: Kent: Cath Placed During This Visit: yes Reason for Continuing Indwelling Catheter: Accurate Measurement of Urinary Output in Critically Ill Patients Urinary Catheter Date of Insertion: 11/20/24 Data 11/21/24 04:43 11/21/24 04:43 Micro: Microbiology 11/20/24 12:00 Blood Culture - Preliminary Blood NEGATIVE TO DATE 11/20/24 12:05 Blood Culture - Preliminary Blood NEGATIVE TO DATE 11/20/24 12:35 Urine Culture - Preliminary Urine Catheterized Gram Negative Rods A&P Assessment and plan (1) Shortness of breath: (2) Acute metabolic encephalopathy: (3) Acute kidney injury superimposed on CKD: (4) Chronic anemia: (5) COPD (chronic obstructive pulmonary disease): Qualifiers: COPD type: unspecified COPD Qualified Code(s): J44.9 - Chronic obstructive pulmonary disease, unspecified (6) Diastolic heart failure: Qualifiers: Heart failure chronicity: unspecified Qualified Code(s): I50.30 - Unspecified diastolic (congestive) heart failure (7) Bilateral leg edema: (8) LEROY on CPAP: (9) Essential hypertension: (10) Insulin dependent type 2 diabetes mellitus: (11) Hyperkalemia: (12) UTI (urinary tract infection): (13) History of CVA (cerebrovascular accident): (14) Expressive aphasia: (15) Mental and behavioral problems with communication (including speech): Plan 64-year-old with past medical history of sleep apnea, COPD, diastolic heart failure, pacemaker implantation, expressive aphasia due to CVA, depression and paranoia presents to the ER with difficulty breathing, altered mental status found to have possible UTI and bilateral lower limb edema. Shortness of breath: Hypoxia: Requiring up to 1 L of oxygen supplementation. Patient does have history of COPD, LEROY on CPAP, diastolic heart failure. Oxygen supplementation keeping saturation over 90%. Appreciate ABG in ER showing mild metabolic acidosis, mild hypoxia. No concern for hypercapnia. Respiratory viral panel negative, follow-up blood culture, urine culture. Pulmicort twice daily, DuoNeb every 6 hour. Solu-Medrol 40 mg every 12 hourly. Fluid restriction to less than 1500 cc. Strict input output charting, daily weights. Kent catheterization. IV Bumex 1 mg Q8 hourly. Metolazone 5 mg oral daily. Continue with home CPAP. Altered mental status: Patient has a history of expressive aphasia with behavior problem with communication problem in the past due to CVA. Slight worsening currently most likely in setting of UTI. Cannot rule out viral prodrome. Cannot rule out polypharmacy. Patient seems to be on the same medication on while she was discharged on 09/11. For now continue with home dose of bupropion 150 mg oral daily, lamotrigine 100 mg oral 3 times daily, risperidone 1 mg every morning. Holding off on home dose of olanzapine for now. Once patient is more awake will restart. UTI: Continue with IV Zosyn. Follow-up urine culture. De-escalate accordingly. Bilateral lower limb edema: With blisters. Cannot rule out cellulitis. IV antibiotic as above. MRSA swab negative in the past. Diuretics and antibiotic as above. Acute on chronic anemia: Baseline hemoglobin around 7.2-7.9. Down to 6.7 today. Concern for iron deficiency anemia. Add iron panel. 1 unit of PRBC. Protonix 40 mg every 12 hourly. Type 2 diabetes mellitus: Most recent A1c 6.6. Sliding-scale low-dose protocol. Holding off on Lantus for now. DELORIS on CKD: Baseline creatinine 2.1-2.5. Currently 3.5. Medical reconciliation done for nephrotoxic drugs. Monitor renal functions daily. Hyperkalemia resolving. Kayexalate oral. Check CT abdomen pelvis. Hypertension: Goal blood pressure less than 140/90 mmHg. Restart home hydralazine 25 mg every 8 hourly, metoprolol 37.5 mg twice daily. Uptitrate as for goal blood pressure. Plan for the day: Follow-up blood culture and urine culture. Continue with IV Zosyn. Check NICOM study to see for fluid responsiveness. Acute on chronic anemia. Hemoglobin down to 6.7. Chronically patient lives on hemoglobin of 7.3-7.4. Target hemoglobin more than 7. 1 unit of blood transfusion. Protonix 40 mg twice daily. Continue with oral medications. N.p.o. otherwise. IV diuresis if NICOM study shows fluid not responsive with 1 mg IV Bumex every 8 hourly, metolazone 5 mg oral daily. Goal blood pressure less than 140/90 mmHg. Blood pressure stable. Patient has a pacemaker. Continue with metoprolol 25 mg twice daily. Holding off on hydralazine for now. Full code N.p.o. except meds. Will start on diet once patient is more awake. Protonix for PUD prophylaxis Heparin 5000 Q12 hourly for DVT prophylaxis PDMP PDMP Reviewed: Not Reviewed Attestations 2 Medical Necessity Statement*: Requires further hospitalization for management of metabolic encephalopathy in setting of UTI, lower limb edema with diastolic heart failure, DELORIS on CKD, anemia requiring blood transfusion Diagnoses Shortness of breath R06.02 Acute metabolic encephalopathy G93.41 Acute kidney injury superimposed on CKD N17.9; N18.9 Chronic anemia D64.9 Chronic obstructive pulmonary disease, unspecified COPD type J44.9 COPD type: unspecified COPD Diastolic heart failure, unspecified HF chronicity I50.30 Heart failure chronicity: unspecified Bilateral leg edema R60.0 LEROY on CPAP G47.33; Z99.89 Essential hypertension I10 Insulin dependent type 2 diabetes mellitus E11.9; Z79.4 Hyperkalemia E87.5 UTI (urinary tract infection) N39.0 History of CVA (cerebrovascular accident) Z86.73 Expressive aphasia R47.01 Mental and behavioral problems with communication (including speech) F80.9
--- NOTE | 2024-11-21 13:18 | CTR_ITS ---
PROCEDURE INFORMATION: Exam: CT Chest Without Contrast; Diagnostic Exam date and time: 11/21/2024 1:53 PM Age: 64 years old Clinical indication: Other: Jorje on ckd, hypoxia, chf TECHNIQUE: Imaging protocol: Diagnostic computed tomography of the chest without contrast. Sagittal and coronal reformatted images were also reviewed. Radiation optimization: All CT scans at this facility use at least one of these dose optimization techniques: automated exposure control; mA and/or kV adjustment per patient size (includes targeted exams where dose is matched to clinical indication); or iterative reconstruction. COMPARISON: [place] [id number] 08/30/2024 6:24 PM RADIATION DOSE METRICS: Total DLP (mGy-cm): 1343.44 FINDINGS: Limitations: Evaluation of the mediastinum and vascular structures is limited without intravenous contrast. Tubes, catheters and devices: There is a dual-lead cardiac pacer via left subclavian approach. Findings are stable. Trachea: Tracheobronchial structures are patent. Lungs: Mild interstitial pulmonary edema. Compressive atelectasis in the right and left lower lobes. No pulmonary parenchymal nodules or masses. Pleural spaces: Small bilateral pleural effusions. No pneumothorax. Heart: Stable moderate enlargement of the heart. Stable calcification of the aortic valve and mitral valve annulus. Coronary arteries: Stable moderate atherosclerotic calcification in the coronary arteries. Esophagus: The esophagus is unremarkable. Mediastinal space: No mediastinal hematoma. No pneumomediastinum. Lymph nodes: No lymphadenopathy. Vasculature: Stable mild atherosclerotic calcifications in the visualized arteries. No evidence for aortic aneurysm. Pulmonary arteries are unremarkable. Pulmonary veins are unremarkable. Bones/joints: Degenerative changes in the spine and shoulders. Calcification of the anterior longitudinal ligament at multiple levels in the thoracic spine, possibly representing diffuse idiopathic skeletal hyperostosis (DISH). Soft tissues: Interval development of mild body wall edema. PROCEDURE INFORMATION: Exam: CT Abdomen And Pelvis Without Contrast Exam date and time: 11/21/2024 1:53 PM Age: 64 years old Clinical indication: Other: Jorje on ckd, hypoxia, chf TECHNIQUE: Imaging protocol: Computed tomography of the abdomen and pelvis without contrast. Sagittal and coronal reformatted images were also reviewed. Radiation optimization: All CT scans at this facility use at least one of these dose optimization techniques: automated exposure control; mA and/or kV adjustment per patient size (includes targeted exams where dose is matched to clinical indication); or iterative reconstruction. COMPARISON: 1. [place] [id number] 08/30/2024 6:[address] angio chest w abd pel w con 07/29/2024 1:13 PM RADIATION DOSE METRICS: Total DLP (mGy-cm): 1343.44 FINDINGS: Limitations: Evaluation of solid organs and vasculature is limited without intravenous contrast. Liver: The liver is unremarkable. Gallbladder and biliary ducts: The patient has had a previous cholecystectomy. No biliary ductal dilatation. Pancreas: The pancreas is unremarkable. No pancreatic ductal dilatation. Spleen: The spleen is unremarkable. Adrenal glands: The right and left adrenal glands are unremarkable. Kidneys and ureters: The right kidney is unremarkable. Stable indeterminate hyperdense focus in the left kidney compared with 07/29/2024. Hounsfield units show density greater than expected for simple fluid. This measures 1.1 x 1.7 cm (series 10, image 42). The right and left ureters are unremarkable. Stomach and bowel: Numerous diverticula in the sigmoid colon, findings are stable. No evidence for diverticulitis. Fluid within the small bowel and colon without evidence of bowel wall thickening. Appendix: The appendix is visualized and is unremarkable. No evidence of appendicitis. Intraperitoneal space: Interval development of trace ascites. No free intraperitoneal air. No loculated fluid collections to suggest an abscess. Vasculature: Stable mild atherosclerotic calcifications in the visualized arteries. No evidence for aortic aneurysm. Lymph nodes: No lymphadenopathy. Urinary bladder: The bladder is decompressed by a Kent catheter. Air in the bladder, likely related to Kent catheter placement. Reproductive: Stable changes consistent with a previous hysterectomy. The ovaries are not definitely visualized, not an expected in a postmenopausal female. This may be due to ovarian atrophy. Alternatively, the patient may have had a previous bilateral oophorectomy. Findings are stable. Bones/joints: Degenerative changes in the spine and hips. Soft tissues: Stable moderate body wall edema. CT/[place] [id number] IMPRESSION: 1. Mild interstitial pulmonary edema with small bilateral pleural effusions and compressive atelectasis in the right and left lower lobes. 2. Interval development of mild body wall edema. 3. Incidental/nonacute findings are listed in the report. IMPRESSION: 1. Fluid within the small bowel and colon without evidence of bowel wall thickening. This may reflect viral gastroenteritis in the appropriate clinical situation. 2. Interval development of trace ascites. 3. Stable indeterminate hyperdense focus in the left kidney compared with 07/29/2024. This could represent a hemorrhagic/proteinaceous cyst. 4. Stable sigmoid diverticulosis. No evidence for diverticulitis. 5. Stable moderate body wall edema. 6. Incidental/nonacute findings are listed in the report. COMMENTS: Consistent with the [employer]'s Incidental Findings Committee white paper (J Am Kirt Radiol 2018): Any incidental renal lesion less than 1 cm or classified as too small to characterize, or any incidental cystic renal lesion characterized as simple-appearing, is likely benign. No follow-up imaging is recommended for these lesions per consensus recommendations based on imaging criteria.
[2024-11-21 13:31] LABS: Iron 27 ug/dL (37-145); Percent Saturation 14.4 % (20-50); Total Iron Binding Capacity 187 mcg/dl; Unsaturated Iron Binding 160 ug/dL (112-347)
[2024-11-21 13:46] LABS: Vitamin B12 494 pg/mL (232-1245)
--- NOTE | 2024-11-21 16:28 | PC.RESP ---
11/20/2024 1800 Rt asked pt nurse to contact [facility] for CPAP settings. Orientation And Mobility Specialist from [facility] states pt does not have a CPAP. Pt only has oxygen. Notified physician.
[2024-11-21 16:34] LABS: Glucose Point of Care 226 mg/dL (70-110)
[2024-11-21] MEDS: metoprolol tartrate 25 mg Tablet PO (17:25)
[2024-11-21] MEDS: pantoprazole 40 mg SDV IVP (17:26)
[2024-11-21] MEDS: docusate sodium 100 mg Capsule PO (17:26)
[2024-11-21 20:44] LABS: Glucose Point of Care 232 mg/dL (70-110)
[2024-11-21] MEDS: atorvastatin 40 mg Tablet PO (20:52)
[2024-11-22] VITALS (14 sets, daily range): BP systolic 110–140; BP diastolic 46–59; PULSE 60–66; RESP 18–30; TEMP 36.6–36.8; O2SAT 93–98
[2024-11-22] MEDS: quetiapine 25 mg Tablet 50 MG PO (00:47)
[2024-11-22] MEDS: methylPREDNISolone sod succ 40 mg/mL INJ IVP ×2 (00:47→12:07)
[2024-11-22] MEDS: bumetanide 0.25 mg/mL SDV 4 mL 1 MG IVP ×2 (00:47→09:04)
[2024-11-22] MEDS: heparin 5,000 unit/mL INJ 1 mL 5000 UNIT SUBCUT ×2 (03:10→17:23)
[2024-11-22] MEDS: trazodone 100 mg Tablet PO (03:11)
[2024-11-22 04:23] LABS: Hematocrit 24.3 % (36-47); Lymphocytes # 0.5 10^3/uL (0.8-4.8); Lymphocytes % 5.8 %; Mean Corpuscular HGB Conc 29.6 g/dL (30-55); Mean Corpuscular Hemoglobin 25.2 pg (27-33); Mean Platelet Volume 10.4 fL (7.4-10.4); Monocytes # 0.4 10^3/uL (0.2-0.9); Monocytes % 4.8 %; Neutrophils # 7.27 10^3/uL (1.8-7.7); Neutrophils % 88.2 %; Nucleated Red Blood Cells % 0 %; Platelet Count 221 10^3/cmm (157-399); Red Blood Count 2.86 10^6/uL (3.85-5.65); Red Cell Distribution Width 15.7 % (12.1-15.1); White Blood Count 8.25 10^3/uL (3.29-11.43)
[2024-11-22] MEDS: ipratropium-albuterol 3 mL Neb INHALATION ×4 (04:38→19:49)
[2024-11-22 04:42] LABS: Alanine Aminotransferase 18 U/L (0-33); Albumin Level 3.1 g/dL (3.5-5.2); Alkaline Phosphatase 110 U/L (35-105); Anion Gap 18.9 (5-19); Aspartate Amino Transferase 9 U/L (0-32); Calcium 8.2 mg/dL (8.5-10.5); Carbon Dioxide 20 mmol/L (22-29); Chloride 102 mmol/L (98-107); Creatinine Clr Calc Pharmacy 18.7511; Globulin 2.3 g/dL (1.3-4.6); Glucose 199 mg/dL (65-115); Magnesium 1.9 mg/dL (1.7-2.3); Osmolality Calculated 318 mOsm/kg (285-295); Phosphorus 5.6 mg/dL (2.5-4.5); Potassium 5.9 mmol/L (3.5-5.1); Sodium 135 mmol/L (136-145); Total Bilirubin 0.2 mg/dL (0.15-1.2); Total Protein 5.4 g/dL (6.6-8.7)
[2024-11-22 04:55] LABS: Blood Urea Nitrogen 104 mg/dL (8-23)
[2024-11-22] MEDS: pantoprazole 40 mg SDV IVP ×2 (05:19→17:23)
[2024-11-22 06:23] LABS: Glucose Point of Care 233 mg/dL (70-110)
[2024-11-22] MEDS: budesonide 0.5 mg/2 mL Neb INHALATION ×2 (08:04→19:49)
--- NOTE | 2024-11-22 08:55 | PC.CHAP ---
Pastoral Care Encounter/Spiritual Assessment Type of Contact [] Declined gas welding machine operator visit [] Patient/Family/Request visit [] Outpatient visit [] Follow-up visit [] Physician referral [] Code/Alert [x] Routine visit [] Staff referral [] Actively dying [] Patient sleeping [] Family support [] [] Out of room [] Palliative care [] [] Receiving care in room [] Pre-surgical visit [] Trauma [] Long length of stay [] ICU visit [] Other: Relational/Emotional Strength [] Patient feels connected with others/family/visitors/staff [] Distress [] Loneliness/isolation [] Abandonment Spirituality of Patient [x] Person of Oanh [] Attends Sabianism of their Oanh [x] Believes in Prayer [] Reads Bible or Adventism materials [] There are Spiritual issues to be addressed Field Property Loss Specialist Interventions [x] Prayer [x] Active listening [] Non-anxious presence [] Spiritual/emotional support [] Crisis/trauma care [] Spiritual counseling [] Bereavement support [] Provided bereavement packet [x] Provided Bible/devotional materials [] Provided toy/stuffed animal, coloring book to patient or family member [] Provided Communion [] Anointing/[place] [] Salvation [x] Completed spiritual assessment [] Other: Impact on Illness or Injury [] Angry [] Fearful [] Anxious [] Often cries [] Exhaustion [] Unable to work [] Unable to attend restorationism [] Unable to walk/stand [] Unable to read [] Unable to drive [] Unable to eat/drink [] Unable to sleep [] Unable to be with family [] Patient intubated [] Other: Summary Time spent with patient 10 min
[2024-11-22] MEDS: insulin lispro 100 unit/1 mL SUBCUT ×4 (09:03→22:06)
[2024-11-22] MEDS: metOLazone 5 MG Tablet PO (09:04)
[2024-11-22] MEDS: metoprolol tartrate 25 mg Tablet PO ×2 (09:04→17:23)
[2024-11-22] MEDS: allopurinol 100 mg Tablet 200 MG PO (09:04)
[2024-11-22] MEDS: lamoTRIgine 100 mg Tablet PO ×2 (09:04→20:31)
[2024-11-22] MEDS: clopidogrel 75 mg Tablet PO (09:04)
[2024-11-22] MEDS: docusate sodium 100 mg Capsule PO ×2 (09:05→17:23)
[2024-11-22] MEDS: piperacillin-tazobactam 3.375 GM in sodium chloride 0.9% (plus) 50 ML IV ×2 (09:05→20:30)
--- NOTE | 2024-11-22 10:28 | PC.SOCIAL ---
IMM Updated Updated pt's guardian, Brenton Hsu on IMM. No questions voiced. Provided pt a copy. Initialed, dated, & timed a copy & placed in chart.
[2024-11-22 11:47] LABS: Glucose Point of Care 190 mg/dL (70-110)
[2024-11-22 13:42] LABS: Glucose Point of Care 184 mg/dL (70-110)
--- NOTE | 2024-11-22 16:18 | PC.NURSE ---
Physician orders: Hold 1630 dose of bumex
[2024-11-22 17:04] LABS: Glucose Point of Care 259 mg/dL (70-110)
[2024-11-22 18:14] LABS: Anion Gap 18.2 (5-19); Calcium 7.9 mg/dL (8.5-10.5); Carbon Dioxide 19 mmol/L (22-29); Chloride 103 mmol/L (98-107); Creatinine Clr Calc Pharmacy 18.7933; Glucose 224 mg/dL (65-115); Osmolality Calculated 319 mOsm/kg (285-295); Potassium 6.2 mmol/L (3.5-5.1); Sodium 134 mmol/L (136-145)
[2024-11-22 18:19] LABS: Blood Urea Nitrogen 107 mg/dL (8-23)
--- NOTE | 2024-11-22 19:57 | P.PN_ITS ---
Subjective 2 Subjective: She tells me that the swelling has come down somewhat in her legs, but still persistent particularly on the right. Vitals/I&O/Wt Last Vital Signs Temp 98.2 F 11/22/24 12:00 Pulse 63 11/22/24 19:56 Resp 18 11/22/24 19:49 BP 140/59 11/22/24 19:34 Pulse Ox 98 11/22/24 19:49 O2 Del Method Nasal Cannula 11/22/24 19:49 O2 Flow Rate 3 11/22/24 19:49 FiO2 25 11/21/24 20:00 11/22/24 11/22/24 11/22/24 06:59 14:59 22:59 Intake Total 290 / 640 410 / 410 300 / 710 Output Total 350 / 450 Balance -60 / 190 410 / 410 300 / 710 Weight last 48 hrs Weight 132.647 kg Weight 132.165 kg Physical Exam 2 Const: COMMON NORMALS: alert GENERAL APPEARANCE: cooperative O RIENTATION/CONSCIOUSNESS: Yes awake HENMT: COMMON NORMALS: oropharynx normal Neck/C-Spine: COMMON NORMALS: no JVD Resp: COMMON NORMALS: normal respiratory effort and clear to auscultation bilaterally AUSCULTATION: clear to auscultation bilaterally Cardio: COMMON NORMALS: no JVD, regular rhythm, S1 normal heart sound present, S2 normal heart sound present and No murmurs present (Cardio) RHYTHM: regular rhythm HEART SOUNDS: S1 normal heart sound present and S2 normal heart sound present GI: COMMON NORMALS: Normal to inspection, nondistended, normoactive bowel sounds present, Soft to palpation and non-tender PALPATION: Yes Soft to palpation Extremity: COMMON NORMALS: no joint enlargement OTHER: Bilateral lower extremity edema, right greater than left. Neuro: COMMON NORMALS: moves all extremities SENSORIUM/ORIENTATION: Yes alert Skin: COMMON NORMALS: no rashes or lesions noted GENERAL SKIN EXAM: no rashes or lesions noted OTHER: Currently with mild weeping, 1 ruptured bulla, 1 large unruptured bullae filled with clear fluid. Urinary Catheter Management: Kent: Cath Placed During This Visit: yes Reason for Continuing Indwelling Catheter: Accurate Measurement of Urinary Output in Critically Ill Patients Urinary Catheter Date of Insertion: 11/20/24 Data 11/22/24 04:07 11/22/24 17:16 Micro: Microbiology 11/20/24 12:35 Urine Culture - Final Urine Catheterized Proteus mirabilis 11/20/24 12:00 Blood Culture - Preliminary Blood A&P Assessment and plan (1) Shortness of breath: (2) Acute metabolic encephalopathy: (3) Acute kidney injury superimposed on CKD: (4) Chronic anemia: (5) COPD (chronic obstructive pulmonary disease): Qualifiers: COPD type: unspecified COPD Qualified Code(s): J44.9 - Chronic obstructive pulmonary disease, unspecified (6) Diastolic heart failure: Qualifiers: Heart failure chronicity: unspecified Qualified Code(s): I50.30 - Unspecified diastolic (congestive) heart failure (7) Bilateral leg edema: (8) LEROY on CPAP: (9) Essential hypertension: (10) Insulin dependent type 2 diabetes mellitus: (11) Hyperkalemia: (12) UTI (urinary tract infection): (13) History of CVA (cerebrovascular accident): (14) Expressive aphasia: (15) Mental and behavioral problems with communication (including speech): Plan 64-year-old with past medical history of sleep apnea, COPD, diastolic heart failure, pacemaker implantation, expressive aphasia due to CVA, depression and paranoia presents to the ER with difficulty breathing, altered mental status found to have possible UTI and bilateral lower limb edema. DELORIS on CKD: Worsening DELORIS, discussed with her, creatinine up to 4.1. BUN up to 104, 107 later today. She is still fluid overloaded. Poor response to diuretic. Noted dilated not collapsing IVC on bedside ultrasound, still few spots with diffuse B-lines in lower lung zones. Lower extremity edema with some weeping, fluid-filled bullae. Noted hypovolemia. Evening diuretic dose with some worsening renal function. Held requested dose of albumin. Reassess renal function. Monitor intake and output. Check CK Medical reconciliation done for nephrotoxic drugs. Monitor renal functions daily. Hyperkalemia with worsening up to 6.2. Requested Kayexalate. Reviewed CT abdomen pelvis. Noted kidney cyst. Edema, small ascites. Discussed with nursing, case management social worker. Shortness of breath: Hypoxia: Requiring up to 3 L of oxygen supplementation. Patient does have history of COPD, LEROY on CPAP, diastolic heart failure. Oxygen supplementation keeping saturation over 90%. Appreciate ABG in ER showing mild metabolic acidosis, mild hypoxia. No concern for hypercapnia. Respiratory viral panel negative, follow-up blood culture, urine culture. Pulmicort twice daily, DuoNeb every 6 hour. Solu-Medrol 40 mg every 12 hourly. Monitor for risk of worsening hyperglycemia. Add Lantus. Encephalopathy, gastritis with IV steroids. Fluid restriction to less than 1500 cc. Strict input output charting, daily weights. Kent catheterization. Held diuretics this afternoon. Reassess renal function. IV Bumex 1 mg Q8 hourly. Metolazone 5 mg oral daily. Monitor for risk of electrolyte imbalance, worsening renal function with IV diuresis. Continue with home CPAP as needed. Altered mental status: Appears to be communicating better. Mental status overall appears to be with improvement. Closer to her usual baseline. Patient has a history of expressive aphasia with behavior problem with communication problem in the past due to CVA. Slight worsening currently most likely in setting of UTI. Cannot rule out viral prodrome. Cannot rule out polypharmacy. Patient seems to be on the same medication on while she was discharged on 09/11. For now continue with home dose of bupropion 150 mg oral daily, lamotrigine 100 mg oral 3 times daily, risperidone 1 mg every morning. Holding off on home dose of olanzapine for now. Once patient is more awake will restart. UTI: Reviewed urine culture, noting gram-negative rods, marijuana thousand. Follow-up ID and sensitivities. Continue with IV Zosyn. Follow-up urine culture. De-escalate accordingly. Bilateral lower limb edema: With blisters. Cannot rule out cellulitis. Right leg greater than left. Check ultrasound to assess for DVT. Still fluid overload, but with poor response to diuresis with worsening DELORIS. IV antibiotic as above. MRSA swab negative in the past. Diuretics and antibiotic as above. Acute on chronic anemia: Received blood transfusion, hemoglobin up to 7.2. Reassess blood counts. Check Hemoccult. Baseline hemoglobin around 7.2-7.9. Down to 6.7 today. Concern for iron deficiency anemia. Add iron panel. 1 unit of PRBC. Protonix 40 mg every 12 hourly. Type 2 diabetes mellitus: Most recent A1c 6.6. Add Lantus. Sliding-scale low-dose protocol. Hypertension: Goal blood pressure less than 140/90 mmHg. Restart home hydralazine 25 mg every 8 hourly, metoprolol 37.5 mg twice daily. Uptitrate as for goal blood pressure. Full code Protonix for PUD prophylaxis Heparin 5000 Q12 hourly for DVT prophylaxis PDMP PDMP Reviewed: Not Reviewed Attestations 2 Medical Necessity Statement*: Continue admission for assessment management of DELORIS on CKD in the setting of decompensated CHF, with in a lady with underlying lung disease. UTI. Additional comorbidities as above. and High MDM includes amount and/or complexity of data reviewed/ordered [ resulted lab(s)/test(s), ordered lab(s)/test(s) and other healthcare professional discussion] and described risk of complication, morbidity or mortality of management as documented Diagnoses Shortness of breath R06.02 Acute metabolic encephalopathy G93.41 Acute kidney injury superimposed on CKD N17.9; N18.9 Chronic anemia D64.9 Chronic obstructive pulmonary disease, unspecified COPD type J44.9 COPD type: unspecified COPD Diastolic heart failure, unspecified HF chronicity I50.30 Heart failure chronicity: unspecified Bilateral leg edema R60.0 LEROY on CPAP G47.33; Z99.89 Essential hypertension I10 Insulin dependent type 2 diabetes mellitus E11.9; Z79.4 Hyperkalemia E87.5 UTI (urinary tract infection) N39.0 History of CVA (cerebrovascular accident) Z86.73 Expressive aphasia R47.01 Mental and behavioral problems with communication (including speech) F80.9
--- NOTE | 2024-11-22 19:58 | USCV_ITS ---
Hilda Wallace Age: 64 Gender: F : 1960 Exam Date: 11/22/2024 21:40 Ordering Phys: Gian Echeverria MD Technologist: CRISPIN Exam Location: [facility] Indication: Assess for DVT There is marked erythema on the RIGHT calf with one very large circa 5cm subcutaneous blister. Patient says that she has had these blisters on both calf areas for years. No history of DVT per patient. HISTORY: Assess for DVT There is marked erythema on the RIGHT calf with one very large circa 5cm subcutaneous blister. Patient says that she has had these blisters on both calf areas for years. No history of DVT per patient. PROCEDURES: Venous duplex imaging was performed in only the right lower extremity. The following venous structures were evaluated: common femoral vein, profunda vein, proximal portion of the greater saphenous vein, superficial femoral vein, and the popliteal vein. In addition, the posterior tibial veins were evaluated. Serial compression, augmentation maneuvers, and spectral Doppler flow evaluation were performed, which were normal. On the right side, the common femoral, superficial femoral, profunda femoral, popliteal, posterior tibial, and greater saphenous veins were identified and interrogated in the standard fashion. These veins were found to be easily compressible with spontaneous blood flow. No evidence of thrombus noted. CONCLUSIONS No evidence of right lower extremity DVT. Bulmaro Longo MD (Electronically Signed) Final Date: 23 November 2024 08:56 S
[2024-11-22] MEDS: albumin 25 G/100 ML BAG 60 G IV (20:30)
[2024-11-22] MEDS: sodium polystyrene sulfonate 15 gm/60 mL Btl PO (20:31)
[2024-11-22] MEDS: atorvastatin 40 mg Tablet PO (20:31)
[2024-11-22 20:37] LABS: Creatine Phosphokinase 48 U/L (26-192)
[2024-11-22 20:47] LABS: Glucose Point of Care 291 mg/dL (70-110)
[2024-11-22] MEDS: insulin glargine 100 units/1 mL 5 UNIT SUBCUT (22:06)
[2024-11-23] VITALS (21 sets, daily range): BP systolic 117–143; BP diastolic 47–65; PULSE 60–95; RESP 16–29; TEMP 36.7–37.1; O2SAT 94–99
[2024-11-23] MEDS: bumetanide 0.25 mg/mL SDV 4 mL 1 MG IVP ×2 (01:00→12:18)
[2024-11-23] MEDS: methylPREDNISolone sod succ 40 mg/mL INJ IVP ×2 (01:00→12:18)
[2024-11-23] MEDS: ipratropium-albuterol 3 mL Neb INHALATION ×4 (02:20→20:16)
[2024-11-23 03:13] LABS: Basophils % 0.1 %; Hematocrit 24.8 % (36-47); Lymphocytes # 0.4 10^3/uL (0.8-4.8); Lymphocytes % 4.4 %; Mean Corpuscular HGB Conc 29.4 g/dL (30-55); Mean Corpuscular Hemoglobin 25.5 pg (27-33); Mean Corpuscular Volume 86.7 fl (85-98); Mean Platelet Volume 10.7 fL (7.4-10.4); Monocytes # 0.4 10^3/uL (0.2-0.9); Monocytes % 4.3 %; Neutrophils # 8.14 10^3/uL (1.8-7.7); Neutrophils % 89.7 %; Nucleated Red Blood Cells % 0 %; Platelet Count 235 10^3/cmm (157-399); Red Blood Count 2.86 10^6/uL (3.85-5.65); White Blood Count 9.08 10^3/uL (3.29-11.43)
[2024-11-23] MEDS: heparin 5,000 unit/mL INJ 1 mL 5000 UNIT SUBCUT (03:15)
[2024-11-23 03:49] LABS: Alanine Aminotransferase 17 U/L (0-33); Albumin Level 3.1 g/dL (3.5-5.2); Alkaline Phosphatase 102 U/L (35-105); Anion Gap 20.8 (5-19); Aspartate Amino Transferase 9 U/L (0-32); Calcium 8.1 mg/dL (8.5-10.5); Carbon Dioxide 19 mmol/L (22-29); Chloride 102 mmol/L (98-107); Creatinine Clr Calc Pharmacy 16.0526; Globulin 2.5 g/dL (1.3-4.6); Glomerular Filtration Rate 9.1 mL/min (90-130); Glucose 262 mg/dL (65-115); Phosphorus 6.4 mg/dL (2.5-4.5); Potassium 5.8 mmol/L (3.5-5.1); Sodium 136 mmol/L (136-145); Total Bilirubin 0.2 mg/dL (0.15-1.2); Total Protein 5.6 g/dL (6.6-8.7)
[2024-11-23 04:02] LABS: Osmolality Calculated 327 mOsm/kg (285-295)
[2024-11-23 04:04] LABS: Blood Urea Nitrogen 114 mg/dL (8-23)
[2024-11-23] MEDS: buPROPion XL (24 HR) 150 mg Tablet PO (05:23)
[2024-11-23] MEDS: pantoprazole 40 mg SDV IVP (05:23)
[2024-11-23] MEDS: risperiDONE 1 mg Tablet PO (05:23)
[2024-11-23 06:07] LABS: Glucose Point of Care 280 mg/dL (70-110)
[2024-11-23] MEDS: insulin lispro 100 unit/1 mL SUBCUT ×3 (08:52→21:09)
[2024-11-23] MEDS: docusate sodium 100 mg Capsule PO (08:52)
[2024-11-23] MEDS: allopurinol 100 mg Tablet 200 MG PO (08:52)
[2024-11-23] MEDS: metoprolol tartrate 25 mg Tablet PO (08:52)
[2024-11-23] MEDS: sodium polystyrene sulfonate 15 gm/60 mL Btl PO (08:52)
[2024-11-23] MEDS: clopidogrel 75 mg Tablet PO (08:52)
[2024-11-23] MEDS: lamoTRIgine 100 mg Tablet PO ×2 (08:52→20:10)
[2024-11-23] MEDS: piperacillin-tazobactam 3.375 GM in sodium chloride 0.9% (plus) 50 ML IV (08:53)
[2024-11-23] MEDS: budesonide 0.5 mg/2 mL Neb INHALATION ×2 (09:47→20:16)
--- NOTE | 2024-11-23 11:01 | P.PN_ITS ---
Subjective 2 Subjective: Patient reports generalized fatigue and malaise. Denies fevers or chills. She remains severely fluid overloaded. Renal function worsening. Discussed plan of care with patient. Medications: Reviewed: Yes Vitals/I&O/Wt Last Vital Signs Temp 98.4 F 11/23/24 08:00 Pulse 60 11/23/24 09:47 Resp 20 H 11/23/24 09:47 BP 125/53 11/23/24 08:00 Pulse Ox 96 11/23/24 09:47 O2 Del Method Nasal Cannula 11/23/24 09:47 O2 Flow Rate 3 11/23/24 09:47 FiO2 21 11/23/24 07:00 11/22/24 11/23/24 11/23/24 22:59 06:59 14:59 Intake Total 650 / 1060 250 / 1310 120 / 120 Output Total 400 / 400 550 / 950 Balance 250 / 660 -300 / 360 120 / 120 Weight last 48 hrs Weight 132.903 kg Weight 132.647 kg Physical Exam 2 Narrative: General: Patient is awake. Ill-appearing. On BiPAP. Head: Normocephalic. Atraumatic. EOM intact. Neck: No JVD. Cardiovascular: RRR. No gallops. No murmurs. 34+ pitting edema bilateral lower extremities. Lungs: breath sounds are diminished, no use of accessory muscles, no crackles or wheezes. Skin: No jaundice. No rashes. Abdomen: Normal bowel sounds, abdomen soft and nontender. Genito Urinary: Genital exam not performed since complaints not related. Rectal: Rectal exam not performed since no symptoms indicated blood loss. Extremities: No cyanosis or clubbing. Fluid blisters present. Musculoskeletal: No swollen or erythematous joints. Neurological: Moves all 4 extremities. No myoclonus. Urinary Catheter Management: Kent: Cath Placed During This Visit: yes Reason for Continuing Indwelling Catheter: Accurate Measurement of Urinary Output in Critically Ill Patients Urinary Catheter Date of Insertion: 11/20/24 Data 11/23/24 02:32 11/23/24 02:32 Micro: Microbiology 11/20/24 12:35 Urine Culture - Final Urine Catheterized Proteus mirabilis A&P Assessment and plan (1) Shortness of breath: (2) Acute metabolic encephalopathy: (3) Acute kidney injury superimposed on CKD: (4) Chronic anemia: (5) COPD (chronic obstructive pulmonary disease): Qualifiers: COPD type: unspecified COPD Qualified Code(s): J44.9 - Chronic obstructive pulmonary disease, unspecified (6) Diastolic heart failure: Qualifiers: Heart failure chronicity: unspecified Qualified Code(s): I50.30 - Unspecified diastolic (congestive) heart failure (7) Bilateral leg edema: (8) LEROY on CPAP: (9) Essential hypertension: (10) Insulin dependent type 2 diabetes mellitus: (11) Hyperkalemia: (12) UTI (urinary tract infection): (13) History of CVA (cerebrovascular accident): (14) Expressive aphasia: (15) Mental and behavioral problems with communication (including speech): Plan Acute kidney injury on CKD - Renal function continues to worsen - Hold further diuretics for today - She previously required to have dialysis - Request nephrology consultation Hyperkalemia - Telemetry - Kayexalate ordered - Trend labs Acute COPD exacerbation - Continue Pulmicort - Continue Solu-Medrol - Breathing treatments as needed Type 2 diabetes mellitus - Continue Lantus - Sliding scale insulin correction Acute on chronic congestive heart failure - Volume status is worsening complicated by renal insufficiency - Doppler ultrasounds negative for DVT in right leg - Continue fluid restriction - Diuretics held, nephro - Consult strict I's and O's - Daily weights Acute metabolic encephalopathy - Optimize metabolic status - Monitor mentation - Avoid sedating meds Acute complicated Proteus Mirabella's UTI - Narrow antibiotics to Rocephin Acute on chronic anemia - Monitor blood counts, transfuse if needed - Continue PPI Hypertension - Continue metoprolol - Titrate blood pressures as needed DVT prophylaxis: Heparin CODE STATUS: Full code PDMP PDMP Reviewed: Not Reviewed Attestations 2 Medical Necessity Statement*: Patient requires ongoing hospitalization for worsening condition requiring ongoing volume support, IV antibiotics, nephrology expertise, IV steroids, breathing treatments, and supportive care. Coding Level of Care Code Acute Code for [facility] Fwd Diagnoses Shortness of breath R06.02 Acute metabolic encephalopathy G93.41 Acute kidney injury superimposed on CKD N17.9; N18.9 Chronic anemia D64.9 Chronic obstructive pulmonary disease, unspecified COPD type J44.9 COPD type: unspecified COPD Diastolic heart failure, unspecified HF chronicity I50.30 Heart failure chronicity: unspecified Bilateral leg edema R60.0 LEROY on CPAP G47.33; Z99.89 Essential hypertension I10 Insulin dependent type 2 diabetes mellitus E11.9; Z79.4 Hyperkalemia E87.5 UTI (urinary tract infection) N39.0 History of CVA (cerebrovascular accident) Z86.73 Expressive aphasia R47.01 Mental and behavioral problems with communication (including speech) F80.9
[2024-11-23 11:23] LABS: Glucose Point of Care 238 mg/dL (70-110)
--- NOTE | 2024-11-23 11:27 | PM.CONSULT ---
Providers/Reason For Consult Consulting Physician/Specialty*: karishma byrne md/ telenephrology Reason for Consult*: DELORIS on CKD Requesting Physician: DR Brenton Brown Attending Physician: Brenton Brown MD Primary Care Provider: Benigno Jennings DO History of Present Illness History of Present Illness 64 year old female with CKD stage 4 due to obesity, DM , hypertension, CRS, and multiple episodes of acute kidney injury. The patient has required temporary HD in the past. her cr has been in the 2's and 3's. She was admitted this time w/ cr in the 3's and AMS and SOB. she was given ABX and furosemide. her breathing is improving. however, she is confused, weak, SOB, and has severe leg edema. she has not diuressed much w/ bumex. renal is called for DELORIS on CKD and for dialysis evaluation. Review of Systems Narrative: The patient is weak confused short of breath orthopnea dyspnea on exertion leg pains leg swelling blistering. She states she has a poor appetite nausea itching and cramps. Denies diarrhea. Medications/Allergies Home Medications ?Medication ?Instructions ?Recorded ?Confirmed ?Last Taken ?Type allopurinol 300 mg tablet 300 mg PO DAILY #90 tabs 05/03/20 11/20/24 11/20/24 Rx clopidogrel 75 mg tablet 75 mg PO DAILY 07/08/20 11/20/24 11/20/24 History metoprolol tartrate 25 mg tablet 37.5 mg PO BID 07/08/20 11/20/24 11/20/24 History acetaminophen 325 mg tablet 650 mg PO Q6H PRN PAIN OR ELEVATED 10/03/21 11/20/24 01/15/24 History (Tylenol) TEMP atorvastatin 40 mg tablet 40 mg PO BEDTIME 10/03/21 11/20/24 11/19/24 History calcium carbonate 500 mg PO Q8H PRN 10/03/21 11/20/24 11/19/24 History gastro-esophageal reflux cetirizine 10 mg tablet 10 mg PO DAILY 10/03/21 11/20/24 11/20/24 History magnesium hydroxide 400 mg/5 mL 30 ml PO DAILY PRN Constipation 10/03/21 11/20/24 Unknown History oral suspension (Milk of Magnesia) 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 meter,continuous #1 ea 03/12/23 11/20/24 Unknown Rx (Dexcom G7 Account Services Manager) 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 sensor (Dexcom G7 #1 ea 03/12/23 11/20/24 Unknown Rx Sensor device) tramadol 50 mg tablet 50 mg PO Q6H PRN pain #120 tabs 11/18/23 11/20/24 08/25/24 Rx ascorbic acid (vitamin C) 500 mg 500 mg PO DAILY 03/03/24 11/20/24 11/20/24 History tablet (Vitamin C) diphenhydramine HCl 25 mg capsule 25 mg PO Q12H PRN Allergy Symptoms 03/03/24 11/20/24 03/02/24 History (Banophen) fluticasone propionate 50 1 spray intranasal Q12H PRN 03/03/24 11/20/24 11/20/24 History mcg/actuation nasal ALLERGIES spray,suspension lidocaine 5 % topical patch 1 patch topical Q12H PRN Pain 03/03/24 11/20/24 Unknown History ondansetron HCl 4 mg tablet 4 mg PO Q6H PRN Nausea And Vomiting 03/03/24 11/20/24 Unknown History bupropion HCl 150 mg 24 hr tablet, 150 mg PO QAM 07/16/24 11/20/24 11/20/24 History extended release eszopiclone 3 mg tablet 3 mg PO BEDTIME 07/16/24 11/20/24 11/19/24 20:00 History lamotrigine 100 mg tablet 100 mg PO TID 07/16/24 11/20/24 11/20/24 08:00 History risperidone 1 mg tablet 1 mg PO QAM 07/16/24 11/20/24 11/20/24 History hydralazine 25 mg tablet 25 mg PO Q8H 08/30/24 11/20/24 11/20/24 History melatonin 5 mg tablet 10 mg PO BEDTIME 08/30/24 11/20/24 11/19/24 History olanzapine 5 mg tablet 5 mg PO BEDTIME 08/30/24 11/20/24 11/19/24 20:00 History insulin aspart U-100 100 unit/mL See Rx Instructions .Route 09/07/24 11/20/24 08/30/24 Rx (3 mL) subcutaneous pen (Novolog .COMPLEX #15 mL FlexPen U-100 Insulin aspart) insulin glargine 100 unit/mL (3 10 unit (0.1 mL) SUBCUT DAILY #15 09/07/24 11/20/24 11/20/24 Rx mL) subcutaneous pen (Lantus mL Solostar U-100 Insulin) potassium chloride 10 mEq 10 meq PO BID 11/20/24 11/20/24 11/20/24 07:00 History tablet,extended release sucralfate 100 mg/mL oral 100 mg PO TID 11/20/24 11/20/24 11/19/24 History suspension Allergies Allergy/AdvReac Type Severity Reaction Status Date / Time clarithromycin (From Biaxin) Allergy nausea Verified 09/14/24 06:32 clindamycin Allergy shock Verified 09/14/24 06:32 diclofenac Allergy swelling Verified 09/14/24 06:32 enalapril Allergy unknown Verified 09/14/24 06:32 ketorolac (From Toradol) Allergy short of Verified 09/14/24 06:32 breath losartan (From Cozaar) Allergy shock Verified 09/14/24 06:32 nifedipine (From Procardia) Allergy hives Verified 09/14/24 06:32 pregabalin (From Lyrica) Allergy unknown Verified 09/14/24 06:32 Sulfa (Sulfonamide Allergy anaphylasix Verified 09/14/24 06:32 Antibiotics) Current Medications Generic Name Dose Route Start Last Admin Trade Name Freq PRN Reason Stop Dose Admin Albuterol/Ipratropium 3 ml 11/20/24 20:00 11/23/24 09:47 Ipratropium-Albuterol 3 Ml Neb INHALATION 3 ml Q6H.RESP JAMAR Administration Allopurinol 200 mg 11/22/24 09:00 11/23/24 08:52 Allopurinol 100 Mg Tablet PO 200 mg DAILY JAMAR Administration Atorvastatin Calcium 40 mg 11/20/24 21:00 11/22/24 20:31 Atorvastatin 40 Mg Tablet PO 40 mg BEDTIME JAMAR Administration Budesonide 0.5 mg 11/20/24 20:00 11/23/24 09:47 Budesonide 0.5 Mg/2 Ml Neb INHALATION 0.5 mg BID.RESPIRATORY JAMAR Administration Bupropion HCl 150 mg 11/21/24 06:00 11/23/24 05:23 Bupropion Xl (24 Hr) 150 Mg Tablet PO 150 mg QAM JAMAR Administration Clopidogrel Bisulfate 75 mg 11/21/24 09:00 11/23/24 08:52 Clopidogrel 75 Mg Tablet PO 75 mg DAILY JAMAR Administration Docusate Sodium 100 mg 11/20/24 18:00 11/23/24 08:52 Docusate Sodium 100 Mg Capsule PO 100 mg BID JAMAR Administration Heparin Sodium (Porcine) 5,000 unit 11/20/24 16:00 11/23/24 03:15 Heparin 5,000 Unit/Ml Inj 1 Ml SUBCUT 5,000 unit Q12H JAMAR Administration Insulin Glargine 5 unit 11/22/24 21:00 11/22/24 22:06 Insulin Glargine 100 Units/1 Ml SUBCUT 5 unit BEDTIME JAMAR Administration Insulin Human Lispro 0 unit 11/20/24 18:00 11/23/24 08:52 Insulin Lispro 100 Unit/1 Ml SUBCUT 8 unit WM&BEDTIME JAMAR Administration Protocol Lamotrigine 100 mg 11/20/24 21:00 11/23/24 08:52 Lamotrigine 100 Mg Tablet PO 100 mg TID JAMAR Administration Methylprednisolone Sodium Succinate 40 mg 11/21/24 00:00 11/23/24 01:00 Methylprednisolone Sod Succ 40 Mg/Ml Inj IVP 40 mg Q12H JMAAR Administration Metoprolol Tartrate 25 mg 11/21/24 18:00 11/23/24 08:52 Metoprolol Tartrate 25 Mg Tablet PO 25 mg BID JAMAR Administration Risperidone 1 mg 11/21/24 06:00 11/23/24 05:23 Risperidone 1 Mg Tablet PO 1 mg QAM JAMAR Administration Trazodone HCl 100 mg 11/22/24 02:30 11/22/24 03:11 Trazodone 100 Mg Tablet PO 100 mg BEDTIME PRN Administration INSOMNIA PFSH Acute PFSH: Medical History (Updated 11/20/24 @ 16:28 by Patel Jones MD) LEROY on CPAP Chronic anemia Pacemaker Acute pancreatitis Sinus pause DELORIS (acute kidney injury) Altered mental status Paranoid Expressive aphasia Anxiety and depression Lives in assisted living facility Rotator cuff tear, right Diabetes mellitus insulin dependent Essential (primary) hypertension Depression due to cerebrovascular accident (CVA) Expressive aphasia Hypomagnesemia Bilateral pneumonia Hyponatremia Hyperkalemia Right humeral fracture Metabolic encephalopathy Resolved Acute delirium Resolved Pneumonia due to COVID-19 virus Resolved Poor social situation Multinodular thyroid Acute embolic stroke Recurrent falls Resolved History of CVA (cerebrovascular accident) Acute hypersomnolence disorder Essential hypertension Wernicke dysphasia Diabetes mellitus with neuropathy Mixed hyperlipidemia Surgical History History of nasal sinusotomy History of cholecystectomy History of tonsillectomy History of repair of rotator cuff History of hysterectomy for indication other than malignancy History of bursectomy Hx of adenoidectomy Status post anal fissurectomy History of colonoscopy Family History Mother CAD (coronary artery disease) Other Asthma Cancer Diabetes Heart disease Hypertension Stroke Social History Smoking and tobacco/nicotine status: former use of tobacco/nicotine Alcohol intake: current Alcohol intake frequency: few times a month Substance/Drug Use: never Vitals/I&O/Wt Last Vital Signs Temp 98.4 F 11/23/24 08:00 Pulse 60 11/23/24 09:47 Resp 20 H 11/23/24 09:47 BP 125/53 11/23/24 08:00 Pulse Ox 96 11/23/24 09:47 O2 Del Method Nasal Cannula 11/23/24 09:47 O2 Flow Rate 3 11/23/24 09:47 FiO2 21 11/23/24 07:00 11/22/24 11/23/24 11/23/24 22:59 06:59 14:59 Intake Total 650 / 1060 250 / 1310 120 / 120 Output Total 400 / 400 550 / 950 Balance 250 / 660 -300 / 360 120 / 120 Weight last 48 hrs Weight 132.903 kg Weight 132.647 kg Physical Exam Narrative: Obese lady lying in bed using nasal cannula oxygen. Vital signs are noted. HEENT normocephalic atraumatic. Neck obese supple difficult to resident associate JVP. Lungs basilar crackles and dullness. Heart paced rhythm positive S1-S2. Abdomen is soft positive bowel sounds. Extremities 3+ edema with skin blistering and tenderness. Poor distal pulses. Positive asterixis Urinary Catheter Management: Kent: Cath Placed During This Visit: yes Reason for Continuing Indwelling Catheter: Accurate Measurement of Urinary Output in Critically Ill Patients Urinary Catheter Date of Insertion: 11/20/24 Data 11/23/24 02:32 11/23/24 02:32 Micro: Microbiology 11/20/24 12:35 Urine Culture - Final Urine Catheterized Proteus mirabilis A&P Assessment and plan (1) Acute kidney injury superimposed on CKD: Plan 64-year-old lady morbid obesity, hypertension, diabetes, sleep apnea on CPAP, history of CVA, mitral valve disease. The patient has known CKD stage IV patient presents now with altered mental status and acute kidney injury with severe volume overload. The patient was diuresed and unfortunately her creatinine has bumped and she still feels short of breath and swollen. 1. Progressive renal insufficiency likely combination of diabetes hypertension obesity related FSGS, and effects of previous DELORIS. Patient now with DELORIS which can be cardiorenal syndrome versus progression of underlying CKD versus effects of medications. As patient has not diuresed well with Bumex and patient having hyperkalemia with altered mental status. Will check a blood gas. Will give another dose of Bumex. Will initiate dialysis for fluid removal. Kidney function may improve with decongestion. Or patient may be heading towards ESRD. We will send urine studies. On admission appears that she has a UTI. Will also send an SPEP again as patient has significant anemia. Anemia send iron studies B12 folate SPEP serum immunofixation and free light chain. Will start Epogen. Patient may need iron or blood transfusions. Diabetic control. Will check phosphorus and PTH vitamin D. Will check an echo. The patient was seen and examined with the aid of a nurse using audiovisual equipment. The patient consented to telehealth and to dialysis. PDMP PDMP Reviewed: Not Reviewed Consult Attestations Medical Necessity Statement: Volume overload severe leg swelling and blistering. Acute on chronic kidney failure. Valvular heart disease. Anemia. Time Spent in Patient Care: Greater than 35 minutes Coding Level of Care Code Acute Code for [facility] Fwd Diagnoses Acute kidney injury superimposed on CKD N17.9; N18.9
--- NOTE | 2024-11-23 11:39 | USCV_ITS ---
Hilda Wallace Age: 64 Gender: F : 1960 Exam Date: 11/23/2024 13:43 Ordering Phys: Gabriele More MD Technologist: Exam Location: [facility] [place] Indication: chf BP: 117 / 47 HR: 60 Rhythm: Sinus Technical Quality: Adequate MEASUREMENTS (Male / Female) Normal Values 2D ECHO LV Diastolic Diameter PLAX 3.6 cm 4.2 - 5.9 / 3.9 - 5.3 cm IVS Diastolic Thickness 1.5 cm 0.6 - 1.0 / 0.6 - 0.9 cm IVS Systolic Thickness 1.9 cm LVPW Diastolic Thickness 1.6 cm 0.6 - 1.0 / 0.6 - 0.9 cm LVPW Systolic Thickness 1.9 cm LVOT Diameter 2.0 cm LV Ejection Fraction 2D Teich 64.3 % LV Ejection Fraction MOD 4C 59.8 % LV Ejection Fraction MOD 2C 63.9 % LV Ejection Fraction 2C AL 64.4 % LA Diameter 3.9 cm Aorta at Sinotubular Diameter 2.5 cm M-MODE LA Ao Ratio MM 1.3 AV Cusp Separation MM 2.2 cm DOPPLER AV Peak Velocity 203.0 cm/s LVOT Peak Velocity 102.0 cm/s AV Area Cont Eq vti 1.6 cm squared AV Area Cont Eq pk 1.7 cm squared MV Peak Velocity 186.0 cm/s MV Area PHT 2.5 cm squared Mitral E to A Ratio 1.1 TV Peak Velocity 219.5 cm/s TR Peak Velocity 271.0 cm/s TR Peak Gradient 29.4 mmHg TV Peak E Velocity 182.0 cm/s PV Peak Velocity 114.0 cm/s FINDINGS Left Ventricle Normal left ventricular size and systolic function, EF 64%.mild left ventricular hypertrophy. No regional wall motion abnormalities. Grade III/IV diastolic dysfunction (restrictive filling pattern), severely elevated filling pressures. Right Ventricle The right ventricle is normal in size and function. Right Atrium The right atrium is normal in size. Left Atrium Mildly increased left atrial size. Mitral Valve Moderate mitral annular calcification. Mild mitral valve regurgitation. Aortic Valve Mild -moderate aortic valve calcification. Patient is aware aortic valve sclerosis Tricuspid Valve Mild tricuspid valve regurgitation. Pulmonic Valve Pulmonic valve not well visualized. Pericardium No pericardial effusion. Aorta Normal aortic annulus size. IVC Inferior vena cava not visualized. CONCLUSIONS Normal left ventricular size and systolic function, EF 64%.mild left ventricular hypertrophy. No regional wall motion abnormalities. Grade III/IV diastolic dysfunction (restrictive filling pattern), severely elevated filling pressures. Mildly increased left atrial size. Moderate mitral annular calcification. Mild mitral valve regurgitation. Mild -moderate aortic valve calcification. Patient is aware aortic valve sclerosis. Mild tricuspid valve regurgitation. Estimated pulmonary artery peak systolic pressure 33 mmHg There is no pericardial effusion. There are no intracardiac masses. Compared to the study from 07/29/2024, there may not be significant change in the 2D findings. Dr Clovis Guerrero MD FAC (Electronically Signed) Final Date: 23 November 2024 19:14 S
--- NOTE | 2024-11-23 11:42 | US_ITS ---
WS: [id number] ULTRASOUND RENAL TECHNIQUE: Ultrasound examination of both kidneys. CLINICAL INFORMATION: carolyn FINDINGS: RIGHT: Right kidney is normal in size and appearance. Echogenicity: Normal. Cortical thickness: 1.5 cm; Normal. Hydronephrosis: None. Perinephric fluid: None. Right kidney measures: 9.6 cm x 4.7 cm x 5.5 cm. LEFT: Left kidney is normal in size and appearance. Echogenicity: Normal. Cortical thickness: 1.5 cm; Normal. Hydronephrosis: None. Perinephric fluid: None. Left kidney measures: 11.0 cm x 6.5 cm x 6.0 cm. Normal visualized aorta. Bladder is decompressed. Kent catheter. US/US renal BI* [id number] IMPRESSION: Limited examination due to body habitus and bowel gas 1. No hydronephrosis in either kidney. 2. Kent catheter
[2024-11-23] MEDS: cefTRIAXone 1,000 mg SDV 1000 MG IVP (12:19)
--- NOTE | 2024-11-23 12:24 | PM.CONSULT ---
Providers/Reason For Consult Consulting Physician/Specialty*: Dr. Wolf general surgery Reason for Consult*: Dialysis catheter placement Attending Physician: Brenton Brown MD Primary Care Provider: Benigno Jennings DO History of Present Illness History of Present Illness Hilda Wallace is a 64 year old female obese and with multiple comorbidities whom surgery was consulted for dialysis catheter placement. Patient already had a tunneled dialysis catheter on the left chest. Patient is unable to make her own medical decisions and has a guardian. Medications/Allergies Home Medications ?Medication ?Instructions ?Recorded ?Confirmed ?Last Taken ?Type allopurinol 300 mg tablet 300 mg PO DAILY #90 tabs 05/03/20 11/20/24 11/20/24 Rx clopidogrel 75 mg tablet 75 mg PO DAILY 07/08/20 11/20/24 11/20/24 History metoprolol tartrate 25 mg tablet 37.5 mg PO BID 07/08/20 11/20/24 11/20/24 History acetaminophen 325 mg tablet 650 mg PO Q6H PRN PAIN OR ELEVATED 10/03/21 11/20/24 01/15/24 History (Tylenol) TEMP atorvastatin 40 mg tablet 40 mg PO BEDTIME 10/03/21 11/20/24 11/19/24 History calcium carbonate 500 mg PO Q8H PRN 10/03/21 11/20/24 11/19/24 History gastro-esophageal reflux cetirizine 10 mg tablet 10 mg PO DAILY 10/03/21 11/20/24 11/20/24 History magnesium hydroxide 400 mg/5 mL 30 ml PO DAILY PRN Constipation 10/03/21 11/20/24 Unknown History oral suspension (Milk of Magnesia) 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 meter,continuous #1 ea 03/12/23 11/20/24 Unknown Rx (Dexcom G7 Toilet And Laundry Soap Supervisor) 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 sensor (Dexcom G7 #1 ea 03/12/23 11/20/24 Unknown Rx Sensor device) tramadol 50 mg tablet 50 mg PO Q6H PRN pain #120 tabs 11/18/23 11/20/24 08/25/24 Rx ascorbic acid (vitamin C) 500 mg 500 mg PO DAILY 03/03/24 11/20/24 11/20/24 History tablet (Vitamin C) diphenhydramine HCl 25 mg capsule 25 mg PO Q12H PRN Allergy Symptoms 03/03/24 11/20/24 03/02/24 History (Banophen) fluticasone propionate 50 1 spray intranasal Q12H PRN 03/03/24 11/20/24 11/20/24 History mcg/actuation nasal ALLERGIES spray,suspension lidocaine 5 % topical patch 1 patch topical Q12H PRN Pain 03/03/24 11/20/24 Unknown History ondansetron HCl 4 mg tablet 4 mg PO Q6H PRN Nausea And Vomiting 03/03/24 11/20/24 Unknown History bupropion HCl 150 mg 24 hr tablet, 150 mg PO QAM 07/16/24 11/20/24 11/20/24 History extended release eszopiclone 3 mg tablet 3 mg PO BEDTIME 07/16/24 11/20/24 11/19/24 20:00 History lamotrigine 100 mg tablet 100 mg PO TID 07/16/24 11/20/24 11/20/24 08:00 History risperidone 1 mg tablet 1 mg PO QAM 07/16/24 11/20/24 11/20/24 History hydralazine 25 mg tablet 25 mg PO Q8H 08/30/24 11/20/24 11/20/24 History melatonin 5 mg tablet 10 mg PO BEDTIME 08/30/24 11/20/24 11/19/24 History olanzapine 5 mg tablet 5 mg PO BEDTIME 08/30/24 11/20/24 11/19/24 20:00 History insulin aspart U-100 100 unit/mL See Rx Instructions .Route 09/07/24 11/20/24 08/30/24 Rx (3 mL) subcutaneous pen (Novolog .COMPLEX #15 mL FlexPen U-100 Insulin aspart) insulin glargine 100 unit/mL (3 10 unit (0.1 mL) SUBCUT DAILY #15 09/07/24 11/20/24 11/20/24 Rx mL) subcutaneous pen (Lantus mL Solostar U-100 Insulin) potassium chloride 10 mEq 10 meq PO BID 11/20/24 11/20/24 11/20/24 07:00 History tablet,extended release sucralfate 100 mg/mL oral 100 mg PO TID 11/20/24 11/20/24 11/19/24 History suspension Allergies Allergy/AdvReac Type Severity Reaction Status Date / Time clarithromycin (From axin) Allergy nausea Verified 09/14/24 06:32 clindamycin Allergy shock Verified 09/14/24 06:32 diclofenac Allergy swelling Verified 09/14/24 06:32 enalapril Allergy unknown Verified 09/14/24 06:32 ketorolac (From Toradol) Allergy short of Verified 09/14/24 06:32 breath losartan (From Cozaar) Allergy shock Verified 09/14/24 06:32 nifedipine (From Procardia) Allergy hives Verified 09/14/24 06:32 pregabalin (From Lyrica) Allergy unknown Verified 09/14/24 06:32 Sulfa (Sulfonamide Allergy anaphylasix Verified 09/14/24 06:32 Antibiotics) Current Medications Generic Name Dose Route Start Last Admin Trade Name Freq PRN Reason Stop Dose Admin Albuterol/Ipratropium 3 ml 11/20/24 20:00 11/23/24 09:47 Ipratropium-Albuterol 3 Ml Neb INHALATION 3 ml Q6H.RESP JAMAR Administration Allopurinol 200 mg 11/22/24 09:00 11/23/24 08:52 Allopurinol 100 Mg Tablet PO 200 mg DAILY JAMAR Administration Atorvastatin Calcium 40 mg 11/20/24 21:00 11/22/24 20:31 Atorvastatin 40 Mg Tablet PO 40 mg BEDTIME JAMAR Administration Budesonide 0.5 mg 11/20/24 20:00 11/23/24 09:47 Budesonide 0.5 Mg/2 Ml Neb INHALATION 0.5 mg BID.RESPIRATORY JAMAR Administration Bupropion HCl 150 mg 11/21/24 06:00 11/23/24 05:23 Bupropion Xl (24 Hr) 150 Mg Tablet PO 150 mg QAM JAMAR Administration Clopidogrel Bisulfate 75 mg 11/21/24 09:00 11/23/24 08:52 Clopidogrel 75 Mg Tablet PO 75 mg DAILY JAMAR Administration Docusate Sodium 100 mg 11/20/24 18:00 11/23/24 08:52 Docusate Sodium 100 Mg Capsule PO 100 mg BID JAMAR Administration Heparin Sodium (Porcine) 5,000 unit 11/20/24 16:00 11/23/24 03:15 Heparin 5,000 Unit/Ml Inj 1 Ml SUBCUT 5,000 unit Q12H JAMAR Administration Insulin Glargine 5 unit 11/22/24 21:00 11/22/24 22:06 Insulin Glargine 100 Units/1 Ml SUBCUT 5 unit BEDTIME JAMAR Administration Insulin Human Lispro 0 unit 11/20/24 18:00 11/23/24 08:52 Insulin Lispro 100 Unit/1 Ml SUBCUT 8 unit WM&BEDTIME JAMAR Administration Protocol Lamotrigine 100 mg 11/20/24 21:00 11/23/24 08:52 Lamotrigine 100 Mg Tablet PO 100 mg TID JAMAR Administration Methylprednisolone Sodium Succinate 40 mg 11/21/24 00:00 11/23/24 01:00 Methylprednisolone Sod Succ 40 Mg/Ml Inj IVP 40 mg Q12H JAMAR Administration Metoprolol Tartrate 25 mg 11/21/24 18:00 11/23/24 08:52 Metoprolol Tartrate 25 Mg Tablet PO 25 mg BID JAMAR Administration Risperidone 1 mg 11/21/24 06:00 11/23/24 05:23 Risperidone 1 Mg Tablet PO 1 mg QAM JAMAR Administration Trazodone HCl 100 mg 11/22/24 02:30 11/22/24 03:11 Trazodone 100 Mg Tablet PO 100 mg BEDTIME PRN Administration INSOMNIA PFSH Acute PFSH: Medical History (Updated 11/20/24 @ 16:28 by Patel Jones MD) LEROY on CPAP Chronic anemia Pacemaker Acute pancreatitis Sinus pause DELORIS (acute kidney injury) Altered mental status Paranoid Expressive aphasia Anxiety and depression Lives in assisted living facility Rotator cuff tear, right Diabetes mellitus insulin dependent Essential (primary) hypertension Depression due to cerebrovascular accident (CVA) Expressive aphasia Hypomagnesemia Bilateral pneumonia Hyponatremia Hyperkalemia Right humeral fracture Metabolic encephalopathy Resolved Acute delirium Resolved Pneumonia due to COVID-19 virus Resolved Poor social situation Multinodular thyroid Acute embolic stroke Recurrent falls Resolved History of CVA (cerebrovascular accident) Acute hypersomnolence disorder Essential hypertension Wernicke dysphasia Diabetes mellitus with neuropathy Mixed hyperlipidemia Surgical History History of nasal sinusotomy History of cholecystectomy History of tonsillectomy History of repair of rotator cuff History of hysterectomy for indication other than malignancy History of bursectomy Hx of adenoidectomy Status post anal fissurectomy History of colonoscopy Family History Mother CAD (coronary artery disease) Other Asthma Cancer Diabetes Heart disease Hypertension Stroke Social History Smoking and tobacco/nicotine status: former use of tobacco/nicotine Alcohol intake: current Alcohol intake frequency: few times a month Substance/Drug Use: never Vitals/I&O/Wt Last Vital Signs Temp 98.4 F 11/23/24 12:00 Pulse 60 11/23/24 12:00 Resp 20 H 11/23/24 12:00 BP 117/47 11/23/24 12:00 Pulse Ox 95 11/23/24 12:00 O2 Del Method Nasal Cannula 11/23/24 12:00 O2 Flow Rate 1 11/23/24 12:00 FiO2 21 11/23/24 07:00 11/22/24 11/23/24 11/23/24 22:59 06:59 14:59 Intake Total 650 / 1060 250 / 1310 120 / 120 Output Total 400 / 400 550 / 950 Balance 250 / 660 -300 / 360 120 / 120 Weight last 48 hrs Weight 293 lb Weight 292 lb 7 oz Physical Exam Narrative: Obese Chest: Unlabored breathing NC. No lymphadenopathy. Heart: Regular rate and rhythm. Abdomen: Soft, nontender, nondistended. No masses or lymphadenopathy. Urinary Catheter Management: Kent: Cath Placed During This Visit: yes Reason for Continuing Indwelling Catheter: Accurate Measurement of Urinary Output in Critically Ill Patients Urinary Catheter Date of Insertion: 11/20/24 Data 11/23/24 02:32 11/23/24 02:32 Micro: Microbiology 11/20/24 12:35 Urine Culture - Final Urine Catheterized Proteus mirabilis A&P Assessment and plan (1) CKD (chronic kidney disease): Plan 64-year-old female whom surgery was consulted for dialysis catheter placement. Have tried multiple times to reach out to the guardian for consent without success. Discussed with hospitalist. Will try to obtain consent this afternoon. If dialysis is not emergent, one possibility is to wait until tomorrow and place a tunneled dialysis catheter in the operating room. PDMP PDMP Reviewed: Not Reviewed Coding Level of Care Code 68316 Diagnoses CKD (chronic kidney disease) N18.9
[2024-11-23 12:31] LABS: Estmated Average Glucose 143; Hemoglobin A1C 6.6 % (4.0-6.0)
[2024-11-23 12:36] LABS: Bacteria Urine None Seen /hpf; Hyaline Casts Urine 218.05 /lpf; Squamous Epithelial Cell Urine 21-50 /hpf (0-5); WBC Urine 21-50 /hpf (0-5)
[2024-11-23 12:37] LABS: ABG PCO2 45.5 mmHg (35-45); ABG PH Result 7.26 (7.35-7.45); Alveolar-Arterial Oxygen Gradi 8.4 mmHg (5-10); Base Excess ABG -6.1 mmol/L (-2.0-2.0); Blood Gas Allen Test Pos; Blood Gas Operator Identificat GD; Blood Gas Sample Site Radial, left; Blood Gas Sample Type Arterial; Carboxyhemoglobin 1.3 %THgb (0.4-20.1); HCO3 ABG 20.5 mmol/L (22-26); HGB O2 Sat 93.1 % (95-100); Ionized Calcium Level - ABG 1.1 mmol/L (1.1-1.4); Methemoglobin 1.2 % (0.4-1.5); Oxygen Device NC; Oxygen Saturation ABG 95.5; PO2 FiO2 Ratio Arterial Blood 285; Potassium Level - ABG 4.9 mmol/L (3.5-5.0); Total Hemoglobin 7.8 g/dL (12-16)
[2024-11-23 12:39] LABS: Creatine Phosphokinase 48 U/L (26-192); Ferritin 128 ng/mL (15-150); Iron 46 ug/dL (37-145); Percent Saturation 23.2 % (20-50); Total Iron Binding Capacity 198 mcg/dl; Unsaturated Iron Binding 152 ug/dL (112-347)
[2024-11-23 12:46] LABS: Bilirubin Urine Neg (Negative); Blood Urine 3+ (Negative); Glucose Urine UA Norm (Normal); Ketones Urine Negative (Negative); Leukocyte Esterase Urine 2+ (Negative); Nitrate Urine Negative (Negative); Protein Urine 2+ (Negative); Specific Gravity, Urine 1.025 (1.005-1.030); UA Slide Review UA Slide Review Perf; Urine Appearance Cloudy (CLEAR); Urine Color Yellow (Yellow); Urobilinogen Urine Norm (Negative); pH Urine 5 (5-7)
[2024-11-23 12:49] LABS: Add Urine Culture? Yes
[2024-11-23 12:55] LABS: 25 Hydroxy Vitamin D 6 ng/mL (30-100); Vitamin B12 461 pg/mL (232-1245)
[2024-11-23 13:01] LABS: Hepatitis C Virus Antibody Non-Reactive (Nonreactive)
[2024-11-23 13:05] LABS: Folate Level 6.3 ng/mL (4.8-37.3)
--- NOTE | 2024-11-23 13:31 | PM.MISC ---
Miscellaneous Note Note: Unable to reach patient's guardian for consent for TDC. Will keep trying. Discussed with hospitalist.
[2024-11-23 13:57] LABS: Hepatitis B Surface Antigen Non-Reactive (Nonreactive)
[2024-11-23 13:58] LABS: Hepatitis B Surface AB < 3.5 (11.5-1000)
--- NOTE | 2024-11-23 14:03 | PM.MISC ---
Miscellaneous Note Note: Consent obtained from guardian for dialysis catheter placement.
[2024-11-23] MEDS: perflutren protein-a microsphr 0.22 mg/mL SDV 3 mL IV (14:45)
--- NOTE | 2024-11-23 15:55 | PM.ACPR ---
Procedure/Consent Consent: Consent for Procedure: Consent obtained from other (indicate) Additional Consent Information: Consent obtained from guardian over the phone. Nurse witnessed. Procedure Narrative: After obtaining consent from POA we proceeded with bedside placement of temporary dialysis catheter in the right groin. The right groin was prepped and draped in usual sterile fashion. Ultrasound was used to locate the right common femoral vein. Local infiltration using 5 cc of 1% lidocaine was used. A finder needle was then used to access the left common femoral vein with the aid of the ultrasound. A wire was threaded through the finder needle. The wire was confirmed to be in the right common femoral vein using the ultrasound. The tract was dilated in a serial fashion. The temporary dialysis catheter 20 cm in length dual channel was then placed using the Seldinger technique. I was able to flush and draw blood easily from both channels. The catheter was secured using sutures. A sterile dressing was applied. Catheter ready for immediate use.
[2024-11-23 19:38] LABS: Potassium 4.7 mmol/L (3.5-5.1)
[2024-11-23] MEDS: atorvastatin 40 mg Tablet PO (20:10)
[2024-11-23 20:30] LABS: Glucose Point of Care 334 mg/dL (70-110)
[2024-11-23] MEDS: insulin glargine 100 units/1 mL 5 UNIT SUBCUT (21:09)
[2024-11-24] VITALS (11 sets, daily range): BP systolic 139–164; BP diastolic 51–72; PULSE 63–82; RESP 16–25; TEMP 36.6–37; O2SAT 94–97
[2024-11-24] MEDS: methylPREDNISolone sod succ 40 mg/mL INJ IVP ×2 (00:45→12:26)
[2024-11-24 02:57] LABS: Lymphocytes # 0.5 10^3/uL (0.8-4.8); Lymphocytes % 4.5 %; Mean Corpuscular Volume 83.3 fl (85-98); Mean Platelet Volume 10.2 fL (7.4-10.4); Monocytes # 0.5 10^3/uL (0.2-0.9); Monocytes % 4.5 %; Neutrophils # 9.13 10^3/uL (1.8-7.7); Neutrophils % 89.9 %; Nucleated Red Blood Cells % 0 %; Platelet Count 214 10^3/cmm (157-399); Red Blood Count 2.88 10^6/uL (3.85-5.65); Red Cell Distribution Width 15.7 % (12.1-15.1); White Blood Count 10.16 10^3/uL (3.29-11.43)
[2024-11-24 03:15] LABS: Magnesium 1.9 mg/dL (1.7-2.3)
[2024-11-24 03:17] LABS: Alanine Aminotransferase 20 U/L (0-33); Albumin Level 3.3 g/dL (3.5-5.2); Alkaline Phosphatase 96 U/L (35-105); Anion Gap 19.9 (5-19); Aspartate Amino Transferase 9 U/L (0-32); Calcium 7.6 mg/dL (8.5-10.5); Carbon Dioxide 21 mmol/L (22-29); Chloride 102 mmol/L (98-107); Creatinine Clr Calc Pharmacy 21.3589; Globulin 1.6 g/dL (1.3-4.6); Glomerular Filtration Rate 12.7 mL/min (90-130); Glucose 275 mg/dL (65-115); Osmolality Calculated 322 mOsm/kg (285-295); Potassium 4.9 mmol/L (3.5-5.1); Sodium 138 mmol/L (136-145); Total Bilirubin 0.2 mg/dL (0.15-1.2); Total Protein 4.9 g/dL (6.6-8.7)
[2024-11-24 03:32] LABS: Blood Urea Nitrogen 85 mg/dL (8-23)
[2024-11-24] MEDS: heparin 5,000 unit/mL INJ 1 mL 5000 UNIT SUBCUT (03:38)
[2024-11-24] MEDS: risperiDONE 1 mg Tablet PO (05:11)
[2024-11-24] MEDS: buPROPion XL (24 HR) 150 mg Tablet PO (05:11)
[2024-11-24 05:59] LABS: PROTEIN, TOTAL 4.9 g/dL (6.1-8.1)
[2024-11-24 06:17] LABS: Glucose Point of Care 290 mg/dL (70-110)
--- NOTE | 2024-11-24 07:26 | PM.PN ---
Subjective Subjective: The patient was seen and examined. The patient is doing better than yesterday she is still confused. Decreased shortness of breath. Decreasing edema. The patient is urinating. She denies nausea or vomiting or diarrhea. Medications: Reviewed: Yes Medication Review Details: Current Medications Acetaminophen (Acetaminophen 325 Mg Tablet) 650 mg PO Q6H PRN PRN Reason: Mild/Mod Pain Or Temp >/= 101 Albuterol/Ipratropium (Ipratropium-Albuterol 3 Ml Neb) 3 ml INHALATION Q6H.RESP JAMAR Last Admin: 11/24/24 03:55 Dose: Not Given Allopurinol (Allopurinol 100 Mg Tablet) 200 mg PO DAILY JAMAR Last Admin: 11/23/24 08:52 Dose: 200 mg Atorvastatin Calcium (Atorvastatin 40 Mg Tablet) 40 mg PO BEDTIME JAMAR Last Admin: 11/23/24 20:10 Dose: 40 mg Budesonide (Budesonide 0.5 Mg/2 Ml Neb) 0.5 mg INHALATION BID.RESPIRATORY JAMAR Last Admin: 11/23/24 20:16 Dose: 0.5 mg Bupropion HCl (Bupropion Xl (24 Hr) 150 Mg Tablet) 150 mg PO QAM JAMAR Last Admin: 11/24/24 05:11 Dose: 150 mg Ceftriaxone Sodium (Ceftriaxone 1,000 Mg Sdv) 1,000 mg IVP Q24H JAMAR; Protocol Last Admin: 11/23/24 12:19 Dose: 1,000 mg Clopidogrel Bisulfate (Clopidogrel 75 Mg Tablet) 75 mg PO DAILY JAMAR Last Admin: 11/23/24 08:52 Dose: 75 mg Docusate Sodium (Docusate Sodium 100 Mg Capsule) 100 mg PO BID JAMAR Last Admin: 11/23/24 17:11 Dose: Not Given Glucagon (Glucagon 1 Mg/Ml Kit 1 Ml) 1 mg IM ONCE PRN; Protocol PRN Reason: Adult Acute Hypoglycemia Nursing Prot. Heparin Sodium (Porcine) (Heparin 5,000 Unit/Ml Inj 1 Ml) 5,000 unit SUBCUT Q12H JAMAR Last Admin: 11/24/24 03:38 Dose: 5,000 unit Hydralazine HCl (Hydralazine 20 Mg/Ml Inj 1 Ml) 10 mg IVP Q4H PRN PRN Reason: SBP>180mmHg or DBP>110mmHG Dextrose (D10w) 125 mls @ 750 mls/hr IV PRN PRN PRN Reason: HYPOGLYCEMIA Dextrose (D5w) 500 mls @ 0 mls/hr IV ONCE PRN; Protocol PRN Reason: Adult Acute Hypoglycemia Prot Dextrose (D10w) 125 mls @ 750 mls/hr IV PRN PRN; Protocol PRN Reason: Adult Acute Hypoglycemia Nursing Protocol Dextrose (D10w) 250 mls @ 1,000 mls/hr IV PRN PRN; Protocol PRN Reason: Adult Acute Hypoglycemia Nursing Protocol Albumin Human (Albumin) 12.5 gm in 50 mls @ 60 mls/hr IV PRN PRN PRN Reason: Hypotension and/or symptomatic Insulin Glargine (Insulin Glargine 100 Units/1 Ml) 5 unit SUBCUT BEDTIME JAMAR Last Admin: 11/23/24 21:09 Dose: 5 unit Insulin Human Lispro (Insulin Lispro 100 Unit/1 Ml) 0 unit SUBCUT WM&BEDTIME JAMAR; Protocol Last Admin: 11/23/24 21:09 Dose: 10 unit Lactulose (Lactulose Oral Liq 20 Gm/30 Ml Udc) 10 gm PO DAILY PRN; Protocol PRN Reason: Constipation (see protocol) Lamotrigine (Lamotrigine 100 Mg Tablet) 100 mg PO TID [facility] Last Admin: 11/23/24 20:10 Dose: 100 mg Magnesium Hydroxide (Magnesium Hydroxide 30 Ml Udc) 30 ml PO DAILY PRN; Protocol PRN Reason: Constipation (see protocol) Methylprednisolone Sodium Succinate (Methylprednisolone Sod Succ 40 Mg/Ml Inj) 40 mg IVP Q12H JAMAR Last Admin: 11/24/24 00:45 Dose: 40 mg Metoprolol Tartrate (Metoprolol Tartrate 25 Mg Tablet) 25 mg PO BID [facility] Last Admin: 11/23/24 17:11 Dose: Not Given Multivitamins (W-Ayylfwi-Ypzqlia C Tablet) 1 each PO DAILY JAMAR Ondansetron HCl (Ondansetron 2 Mg/Ml Sdv 2 Ml) 4 mg IVP Q6H PRN PRN Reason: vomiting, or N/V if npo Risperidone (Risperidone 1 Mg Tablet) 1 mg PO QAM [facility] Last Admin: 11/24/24 05:11 Dose: 1 mg Trazodone HCl (Trazodone 100 Mg Tablet) 100 mg PO BEDTIME PRN PRN Reason: INSOMNIA Last Admin: 11/22/24 03:11 Dose: 100 mg Vitals/I&O/Wt Last Vital Signs Temp 98.4 F 11/24/24 03:47 Pulse 65 11/24/24 05:42 Resp 25 H 11/24/24 03:47 BP 139/51 11/24/24 03:47 Pulse Ox 96 11/24/24 03:47 O2 Del Method Nasal Cannula 11/24/24 03:47 O2 Flow Rate 2 11/23/24 20:15 FiO2 25 11/24/24 00:00 11/23/24 11/24/24 11/24/24 22:59 06:59 14:59 Intake Total 1300 / 1540 100 / 1640 Output Total 3250 / 3250 550 / 3800 Balance -1950 / -1710 -450 / -2160 Weight last 48 hrs Weight 133.583 kg Weight 133.611 kg Weight 132.2 kg Weight 132.903 kg Physical Exam Narrative: Obese lady lying in bed using nasal cannula oxygen. Vital signs are noted. HEENT normocephalic atraumatic. 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 Lungs- dec b/l basilar dullness and crackles Heart paced rhythm positive S1-S2. Abdomen is soft positive bowel sounds. Extremities 2 + edema with skin blistering and tenderness. Right femoral catheter for dialysis Neuro exam: She is awake and alert responsive knows she is in the hospital but not talking to the point and is sometimes I am not clear what she is talking about. She is weak but moves all extremities Urinary Catheter Management: Kent: Cath Placed During This Visit: yes Reason for Continuing Indwelling Catheter: Accurate Measurement of Urinary Output in Critically Ill Patients Urinary Catheter Date of Insertion: 11/20/24 Data 11/24/24 02:26 11/24/24 02:26 A&P Assessment and plan (1) Acute kidney injury superimposed on CKD: Plan 64-year-old lady morbid obesity, hypertension, diabetes, sleep apnea on CPAP, history of CVA, mitral valve disease. The patient has known CKD stage IV patient presents now with altered mental status and acute kidney injury with severe volume overload. The patient was diuresed and unfortunately her creatinine has bumped and she still feels short of breath and swollen. 1. Progressive renal insufficiency likely combination of diabetes hypertension obesity related FSGS, and effects of previous DELORIS. Patient now with DELORIS which can be cardiorenal syndrome versus progression of underlying CKD versus effects of medications. Renal ultrasound did not show hydronephrosis that showed a right kidney of 9.6 cm on left of 11 cm. We checked an ABG yesterday and she had a mixed metabolic and respiratory acidosis with a pH of 7.26 pCO2 of 45 bicarbonate of 20. However this is much improved from her pCO2 of 68 in August 2024. As patient has severe volume overload we initiated dialysis yesterday will perform ultrafiltration today. -My partner will assess her tomorrow for renal recovery versus need of further dialysis. Patient has a femoral temporary dialysis catheter. Please note that this is not the first time the patient needed dialysis for about overload. Patient may be progressing to needing renal replacement therapy -Urine studies reviewed she had 2+ protein 3+ blood 2+ leuk esterase, still 21-50 white cells and squamous epithelial cells. Of note she has calcium oxalate crystals of 10-15. She also has hyaline casts Will also send an SPEP again as patient has significant anemia. Anemia send iron studies B12 folate SPEP serum immunofixation and free light chain. -She received Epogen yesterday Iron saturation of 23% ferritin 128 will give IV iron. Monitor hemoglobin May need blood transfusion. Diabetic control. lower sterodis as tolerated Phosphorus of 5 can monitor. Await PTH -Severe vitamin D deficiency will replace Echocardiogram reviewed EF of 64% with grade 3 out of 4 diastolic dysfunction with restrictive filling pattern severely elevated. Question if this could be cardiac amyloid. With severely elevated filling pressures we will continue diuresis. BP okay The patient was seen and examined with the aid of a nurse using audiovisual equipment. The patient consented to telehealth and to dialysis. PDMP PDMP Reviewed: Not Reviewed Attestations Medical Necessity Statement*: Acute on chronic renal failure with volume overload acute on chronic exacerbation of heart failure preserved EF. Time Spent in Patient Care: 16 - 35 minutes (>than 50% of time spent in counselling and/or direct pt care on unit). Coding Level of Care Code Acute Code for Chg Fwd Diagnoses Acute kidney injury superimposed on CKD N17.9; N18.9
--- NOTE | 2024-11-24 07:45 | PC.NURSE ---
Patient off unit for dialysis
[2024-11-24 07:48] LABS: Anti-Double Strand DNA AB <1 IU/mL
--- NOTE | 2024-11-24 07:59 | P.PN_ITS ---
Subjective 2 Subjective: Temporary dialysis athter in place and working Vitals/I&O/Wt Last Vital Signs Temp 98.4 F 11/24/24 03:47 Pulse 65 11/24/24 05:42 Resp 25 H 11/24/24 03:47 BP 139/51 11/24/24 03:47 Pulse Ox 96 11/24/24 03:47 O2 Del Method Nasal Cannula 11/24/24 03:47 O2 Flow Rate 2 11/23/24 20:15 FiO2 25 11/24/24 00:00 11/23/24 11/24/24 11/24/24 22:59 06:59 14:59 Intake Total 1300 / 1540 100 / 1640 Output Total 3250 / 3250 550 / 3800 Balance -1950 / -1710 -450 / -2160 Weight last 48 hrs Weight 294 lb 8 oz Weight 294 lb 9 oz Weight 291 lb 7.218 oz Weight 293 lb Physical Exam 2 Narrative: Chest: Unlabored breathing room air. No lymphadenopathy. Heart: Regular rate and rhythm. Abdomen: Soft, nontender, nondistended. No masses or lymphadenopathy. Right groin - temporary dialysis catheter in place and functional Urinary Catheter Management: Kent: Cath Placed During This Visit: yes Reason for Continuing Indwelling Catheter: Accurate Measurement of Urinary Output in Critically Ill Patients Urinary Catheter Date of Insertion: 11/20/24 Data 11/24/24 02:26 11/24/24 02:26 A&P Assessment and plan (1) CKD (chronic kidney disease): Plan 64-year-old female who presented with renal failure now with temporary dialysis catheter in the right groin which is functional. Will remain available in case patient needs a tunneled dialysis catheter. PDMP PDMP Reviewed: Not Reviewed Attestations 2 Medical Necessity Statement*: NA Coding Level of Care Code 99918 Diagnoses CKD (chronic kidney disease) N18.9
[2024-11-24] MEDS: ferric gluconate 125 MG in sodium chloride 0.9% (100 ml) 100 ML 110 MG IV (09:00)
--- NOTE | 2024-11-24 09:45 | P.PN_ITS ---
Subjective 2 Subjective: Patient reports she is feeling better. Currently undergoing dialysis. Reports he did not sleep well overnight. Inquires about sleep aid. Reports persistent shortness of breath but slightly better than before. Denies other new complaints. Medications: Reviewed: Yes Vitals/I&O/Wt Last Vital Signs Temp 98.4 F 11/24/24 09:29 Pulse 67 11/24/24 09:29 Resp 18 11/24/24 09:29 BP 164/72 11/24/24 09:29 Pulse Ox 94 11/24/24 08:00 O2 Del Method Nasal Cannula 11/24/24 08:00 O2 Flow Rate 1 11/24/24 08:00 FiO2 25 11/24/24 00:00 11/23/24 11/24/24 11/24/24 22:59 06:59 14:59 Intake Total 1300 / 1540 100 / 1640 Output Total 3250 / 3250 550 / 3800 Balance -1950 / -1710 -450 / -2160 Weight last 48 hrs Weight 133.583 kg Weight 133.611 kg Weight 132.2 kg Weight 132.903 kg Physical Exam 2 Narrative: General: Patient is awake. Less ill-appearing than yesterday. Pleasant. Head: Normocephalic. Atraumatic. EOM intact. Neck: No JVD. Cardiovascular: RRR. No gallops. No murmurs. 3+ pitting edema bilateral lower extremities. Lungs: breath sounds are diminished, no use of accessory muscles, no crackles or wheezes. Skin: No jaundice. No rashes. Abdomen: Normal bowel sounds, abdomen soft and nontender. Genito Urinary: Genital exam not performed since complaints not related. Rectal: Rectal exam not performed since no symptoms indicated blood loss. Extremities: No cyanosis or clubbing. Fluid blisters have significantly improved Musculoskeletal: No swollen or erythematous joints. Neurological: Moves all 4 extremities. No myoclonus. Urinary Catheter Management: Kent: Cath Placed During This Visit: yes Reason for Continuing Indwelling Catheter: Accurate Measurement of Urinary Output in Critically Ill Patients Urinary Catheter Date of Insertion: 11/20/24 Data 11/24/24 02:26 11/24/24 02:26 Micro: Microbiology 11/23/24 12:10 Urine Culture - Preliminary Urine,Clean Catch A&P Assessment and plan (1) Shortness of breath: (2) Acute metabolic encephalopathy: (3) Acute kidney injury superimposed on CKD: (4) Chronic anemia: (5) COPD (chronic obstructive pulmonary disease): Qualifiers: COPD type: unspecified COPD Qualified Code(s): J44.9 - Chronic obstructive pulmonary disease, unspecified (6) Diastolic heart failure: Qualifiers: Heart failure chronicity: unspecified Qualified Code(s): I50.30 - Unspecified diastolic (congestive) heart failure (7) Bilateral leg edema: (8) LEROY on CPAP: (9) Essential hypertension: (10) Insulin dependent type 2 diabetes mellitus: (11) Hyperkalemia: (12) UTI (urinary tract infection): (13) History of CVA (cerebrovascular accident): (14) Expressive aphasia: (15) Mental and behavioral problems with communication (including speech): Plan Acute kidney injury on CKD - Nephrology following appreciate recommendations - Tolerating dialysis well, query of patient benefit from ongoing dialysis - Continue strict I's and O's - Daily assessment of volume and renal function Hyperkalemia - Telemetry - Potassium is improved, currently 4.9 Acute COPD exacerbation - Continue Pulmicort - Continue Solu-Medrol, transition to prednisone soon - Breathing treatments as needed Type 2 diabetes mellitus - Continue Lantus - Sliding scale insulin correction Acute on chronic diastolic heart failure with preserved ejection fraction - Continue fluid restriction - Volume control via dialysis - Strict I's and O's - Daily weights Acute metabolic encephalopathy - Mentation has improved, continue to monitor - Avoid sedating meds Acute complicated Proteus Mirabella's UTI - Continue ceftriaxone Acute on chronic anemia - Monitor blood counts, transfuse if needed - Continue PPI Hypertension - Continue metoprolol - Titrate blood pressures as needed DVT prophylaxis: Heparin CODE STATUS: Full code PDMP PDMP Reviewed: Not Reviewed Attestations 2 Medical Necessity Statement*: Patient requires ongoing hospitalization for worsening condition requiring ongoing volume support via dialysis, IV antibiotics, nephrology expertise, IV steroids, breathing treatments, and supportive care. Coding Level of Care Code Acute Code for Chg Fwd Diagnoses Shortness of breath R06.02 Acute metabolic encephalopathy G93.41 Acute kidney injury superimposed on CKD N17.9; N18.9 Chronic anemia D64.9 Chronic obstructive pulmonary disease, unspecified COPD type J44.9 COPD type: unspecified COPD Diastolic heart failure, unspecified HF chronicity I50.30 Heart failure chronicity: unspecified Bilateral leg edema R60.0 LEROY on CPAP G47.33; Z99.89 Essential hypertension I10 Insulin dependent type 2 diabetes mellitus E11.9; Z79.4 Hyperkalemia E87.5 UTI (urinary tract infection) N39.0 History of CVA (cerebrovascular accident) Z86.73 Expressive aphasia R47.01 Mental and behavioral problems with communication (including speech) F80.9
--- NOTE | 2024-11-24 10:26 | PC.SOCIAL ---
IMM Update pg 2 of IMM updated and reviewed w/ patients guardian Brenton Hsu, copy left @ bedside and copy dated, initialed and placed in chart.
[2024-11-24 12:06] LABS: Glucose Point of Care 354 mg/dL (70-110)
[2024-11-24] MEDS: b-complex-vitamin c Tablet 1 EACH PO (12:08)
[2024-11-24] MEDS: clopidogrel 75 mg Tablet PO (12:09)
[2024-11-24] MEDS: ergocalciferol (vitamin D2) 50,000 Unit Capsule 50000 UNIT PO (12:09)
[2024-11-24] MEDS: cefTRIAXone 1,000 mg SDV 1000 MG IVP (12:09)
[2024-11-24] MEDS: insulin lispro 100 unit/1 mL SUBCUT ×3 (12:09→21:14)
[2024-11-24] MEDS: allopurinol 100 mg Tablet 200 MG PO (12:09)
[2024-11-24] MEDS: ipratropium-albuterol 3 mL Neb INHALATION (15:03)
[2024-11-24 16:49] LABS: Glucose Point of Care 361 mg/dL (70-110)
[2024-11-24 17:29] LABS: ALBUMIN 2.8 g/dL (3.8-4.8); ALPHA 1 GLOBULIN 0.4 g/dL (0.2-0.3); ALPHA 2 GLOBULIN 0.8 g/dL (0.5-0.9); BETA 1 GLOBULIN 0.3 g/dL (0.4-0.6); BETA 2 GLOBULIN 0.3 g/dL (0.2-0.5); GAMMA GLOBULIN 0.3 g/dL (0.8-1.7)
[2024-11-24] MEDS: bumetanide 0.25 mg/mL SDV 4 mL 1 MG IVP (18:03)
[2024-11-24] MEDS: metoprolol tartrate 25 mg Tablet PO (18:03)
[2024-11-24] MEDS: docusate sodium 100 mg Capsule PO (18:03)
[2024-11-24 21:02] LABS: Glucose Point of Care 426 mg/dL (70-110)
[2024-11-24] MEDS: insulin glargine 100 units/1 mL 5 UNIT SUBCUT (21:14)
[2024-11-25] VITALS (20 sets, daily range): BP systolic 142–157; BP diastolic 48–65; PULSE 60–68; RESP 16–31; TEMP 36.3–37; O2SAT 93–99
[2024-11-25] MEDS: methylPREDNISolone sod succ 40 mg/mL INJ IVP (00:37)
[2024-11-25] MEDS: ipratropium-albuterol 3 mL Neb INHALATION ×4 (01:44→21:13)
[2024-11-25 04:08] LABS: Alanine Aminotransferase 15 U/L (0-33); Albumin Level 3.4 g/dL (3.5-5.2); Alkaline Phosphatase 96 U/L (35-105); Aspartate Amino Transferase 8 U/L (0-32); Calcium 8.3 mg/dL (8.5-10.5); Carbon Dioxide 23 mmol/L (22-29); Chloride 102 mmol/L (98-107); Creatinine Clr Calc Pharmacy 22.5308; Globulin 2.3 g/dL (1.3-4.6); Glomerular Filtration Rate 13.6 mL/min (90-130); Glucose 343 mg/dL (65-115); Osmolality Calculated 331 mOsm/kg (285-295); Phosphorus 5.1 mg/dL (2.5-4.5); Sodium 139 mmol/L (136-145); Total Bilirubin 0.2 mg/dL (0.15-1.2); Total Protein 5.7 g/dL (6.6-8.7)
[2024-11-25 04:17] LABS: Blood Urea Nitrogen 94 mg/dL (8-23)
[2024-11-25] MEDS: bumetanide 0.25 mg/mL SDV 4 mL 1 MG IVP ×2 (05:24→17:33)
[2024-11-25] MEDS: buPROPion XL (24 HR) 150 mg Tablet PO (05:25)
[2024-11-25] MEDS: risperiDONE 1 mg Tablet PO (05:25)
[2024-11-25 06:18] LABS: Glucose Point of Care 353 mg/dL (70-110)
[2024-11-25] MEDS: budesonide 0.5 mg/2 mL Neb INHALATION ×2 (07:11→21:13)
[2024-11-25] MEDS: b-complex-vitamin c Tablet 1 EACH PO (08:38)
[2024-11-25] MEDS: insulin lispro 100 unit/1 mL SUBCUT ×6 (08:38→21:41)
[2024-11-25] MEDS: clopidogrel 75 mg Tablet PO (08:38)
[2024-11-25] MEDS: metoprolol tartrate 25 mg Tablet PO ×2 (08:38→17:33)
[2024-11-25] MEDS: ferric gluconate 125 MG in sodium chloride 0.9% (100 ml) 100 ML 110 MG IV (08:38)
[2024-11-25] MEDS: allopurinol 100 mg Tablet 200 MG PO (08:39)
[2024-11-25] MEDS: lamoTRIgine 100 mg Tablet PO ×3 (08:39→21:41)
--- NOTE | 2024-11-25 09:50 | PM.PN ---
Subjective Subjective: Patient reports she feels much better today. Has tolerated temp HD sessions well. Reports improvement in swelling. Discussed possible need for ongoing outpatient dialysis if recommended by nephro which she is in agreement with if needed. Reports good appetite. Denies other new complaints. Inquires about discharge plans. Medications: Reviewed: Yes Medication Review Details: Current Medications Acetaminophen (Acetaminophen 325 Mg Tablet) 650 mg PO Q6H PRN PRN Reason: Mild/Mod Pain Or Temp >/= 101 Albuterol/Ipratropium (Ipratropium-Albuterol 3 Ml Neb) 3 ml INHALATION Q6H.RESP JAMAR Last Admin: 11/24/24 03:55 Dose: Not Given Allopurinol (Allopurinol 100 Mg Tablet) 200 mg PO DAILY JAMAR Last Admin: 11/23/24 08:52 Dose: 200 mg Atorvastatin Calcium (Atorvastatin 40 Mg Tablet) 40 mg PO BEDTIME JAMAR Last Admin: 11/23/24 20:10 Dose: 40 mg Budesonide (Budesonide 0.5 Mg/2 Ml Neb) 0.5 mg INHALATION BID.RESPIRATORY JAMAR Last Admin: 11/23/24 20:16 Dose: 0.5 mg Bupropion HCl (Bupropion Xl (24 Hr) 150 Mg Tablet) 150 mg PO QAM JAMAR Last Admin: 11/24/24 05:11 Dose: 150 mg Ceftriaxone Sodium (Ceftriaxone 1,000 Mg Sdv) 1,000 mg IVP Q24H [facility]; Protocol Last Admin: 11/23/24 12:19 Dose: 1,000 mg Clopidogrel Bisulfate (Clopidogrel 75 Mg Tablet) 75 mg PO DAILY JAMAR Last Admin: 11/23/24 08:52 Dose: 75 mg Docusate Sodium (Docusate Sodium 100 Mg Capsule) 100 mg PO BID JAMAR Last Admin: 11/23/24 17:11 Dose: Not Given Glucagon (Glucagon 1 Mg/Ml Kit 1 Ml) 1 mg IM ONCE PRN; Protocol PRN Reason: Adult Acute Hypoglycemia Nursing Prot. Heparin Sodium (Porcine) (Heparin 5,000 Unit/Ml Inj 1 Ml) 5,000 unit SUBCUT Q12H [facility] Last Admin: 11/24/24 03:38 Dose: 5,000 unit Hydralazine HCl (Hydralazine 20 Mg/Ml Inj 1 Ml) 10 mg IVP Q4H PRN PRN Reason: SBP>180mmHg or DBP>110mmHG Dextrose (D10w) 125 mls @ 750 mls/hr IV PRN PRN PRN Reason: HYPOGLYCEMIA Dextrose (D5w) 500 mls @ 0 mls/hr IV ONCE PRN; Protocol PRN Reason: Adult Acute Hypoglycemia Prot Dextrose (D10w) 125 mls @ 750 mls/hr IV PRN PRN; Protocol PRN Reason: Adult Acute Hypoglycemia Nursing Protocol Dextrose (D10w) 250 mls @ 1,000 mls/hr IV PRN PRN; Protocol PRN Reason: Adult Acute Hypoglycemia Nursing Protocol Albumin Human (Albumin) 12.5 gm in 50 mls @ 60 mls/hr IV PRN PRN PRN Reason: Hypotension and/or symptomatic Insulin Glargine (Insulin Glargine 100 Units/1 Ml) 5 unit SUBCUT BEDTIME JAMAR Last Admin: 11/23/24 21:09 Dose: 5 unit Insulin Human Lispro (Insulin Lispro 100 Unit/1 Ml) 0 unit SUBCUT WM&BEDTIME JAMAR; Protocol Last Admin: 11/23/24 21:09 Dose: 10 unit Lactulose (Lactulose Oral Liq 20 Gm/30 Ml Udc) 10 gm PO DAILY PRN; Protocol PRN Reason: Constipation (see protocol) Lamotrigine (Lamotrigine 100 Mg Tablet) 100 mg PO TID [facility] Last Admin: 11/23/24 20:10 Dose: 100 mg Magnesium Hydroxide (Magnesium Hydroxide 30 Ml Udc) 30 ml PO DAILY PRN; Protocol PRN Reason: Constipation (see protocol) Methylprednisolone Sodium Succinate (Methylprednisolone Sod Succ 40 Mg/Ml Inj) 40 mg IVP Q12H [facility] Last Admin: 11/24/24 00:45 Dose: 40 mg Metoprolol Tartrate (Metoprolol Tartrate 25 Mg Tablet) 25 mg PO BID JAMAR Last Admin: 11/23/24 17:11 Dose: Not Given Multivitamins (T-Nipmptb-Siiwgzv C Tablet) 1 each PO DAILY JAMAR Ondansetron HCl (Ondansetron 2 Mg/Ml Sdv 2 Ml) 4 mg IVP Q6H PRN PRN Reason: vomiting, or N/V if npo Risperidone (Risperidone 1 Mg Tablet) 1 mg PO QAM [facility] Last Admin: 11/24/24 05:11 Dose: 1 mg Trazodone HCl (Trazodone 100 Mg Tablet) 100 mg PO BEDTIME PRN PRN Reason: INSOMNIA Last Admin: 11/22/24 03:11 Dose: 100 mg Vitals/I&O/Wt Last Vital Signs Temp 97.9 F 11/25/24 07:33 Pulse 66 11/25/24 07:33 Resp 25 H 11/25/24 07:33 BP 148/65 11/25/24 07:33 Pulse Ox 93 11/25/24 07:33 O2 Del Method Nasal Cannula 11/25/24 07:33 O2 Flow Rate 2 11/25/24 07:10 FiO2 25 11/25/24 01:44 11/24/24 11/25/24 11/25/24 22:59 06:59 14:59 Intake Total 120 / 970 470 / 470 Output Total 1300 / 3800 650 / 4450 Balance -1180 / -2830 -650 / -3480 470 / 470 Weight last 48 hrs Weight 130.499 kg Weight 131.4 kg Weight 133.583 kg Weight 133.611 kg Weight 132.2 kg Physical Exam Narrative: General: Patient is awake. Much more interactive and conversational. Head: Normocephalic. Atraumatic. EOM intact. Neck: No JVD. Cardiovascular: RRR. No gallops. No murmurs. 2+ pitting edema bilateral lower extremities, improved from prior exam. Lungs: breath sounds are diminished, no use of accessory muscles, no crackles or wheezes. Skin: No jaundice. No rashes. Abdomen: Normal bowel sounds, abdomen soft and nontender. Extremities: No cyanosis or clubbing. Fluid blisters have significantly improved Musculoskeletal: No swollen or erythematous joints. Neurological: Moves all 4 extremities. No myoclonus. Urinary Catheter Management: Kent: Cath Placed During This Visit: yes Reason for Continuing Indwelling Catheter: Accurate Measurement of Urinary Output in Critically Ill Patients Urinary Catheter Date of Insertion: 11/20/24 Data 11/24/24 02:26 11/25/24 03:18 Micro: Microbiology 11/23/24 12:10 Urine Culture - Preliminary Urine,Clean Catch A&P Assessment and plan (1) Shortness of breath: (2) Acute metabolic encephalopathy: (3) Acute kidney injury superimposed on CKD: (4) Chronic anemia: (5) COPD (chronic obstructive pulmonary disease): Qualifiers: COPD type: unspecified COPD Qualified Code(s): J44.9 - Chronic obstructive pulmonary disease, unspecified (6) Diastolic heart failure: Qualifiers: Heart failure chronicity: unspecified Qualified Code(s): I50.30 - Unspecified diastolic (congestive) heart failure (7) Bilateral leg edema: (8) LEROY on CPAP: (9) Essential hypertension: (10) Insulin dependent type 2 diabetes mellitus: (11) Hyperkalemia: (12) UTI (urinary tract infection): (13) History of CVA (cerebrovascular accident): (14) Expressive aphasia: (15) Mental and behavioral problems with communication (including speech): Plan Acute kidney injury on CKD - Nephrology following appreciate recommendations - Continue strict I's and O's - Daily assessment of volume and renal function - She has improved with temp HD; query if she would benefit from long-term HD; need femoral HD line ZIGGY to facilitate therapy and begin discharge planning - Will follow up with nephro Acute COPD exacerbation - Continue Pulmicort - Continue Solu-Medrol, transition to prednisone soon - Breathing treatments as needed Type 2 diabetes mellitus, uncontrolled with hyperglycemia - Continue Lantus - Adjust insulin - Sliding scale insulin correction Acute on chronic diastolic heart failure with preserved ejection fraction - Continue fluid restriction - Volume control via dialysis - Strict I's and O's - Daily weights Acute complicated Proteus Mirabella's UTI - Continue ceftriaxone Acute on chronic anemia - Monitor blood counts, transfuse if needed - Follow up work up - Continue PPI Hypertension - Continue metoprolol - Titrate blood pressures as needed Hyperkalemia, resolved Acute metabolic encephalopathy, resolved DVT prophylaxis: Heparin CODE STATUS: Full code PDMP PDMP Reviewed: Not Reviewed Attestations Medical Necessity Statement*: Patient requires ongoing hospitalization for worsening condition requiring ongoing volume support via dialysis, IV antibiotics, nephrology expertise, IV steroids, breathing treatments, and supportive care. Coding Level of Care Code Acute Code for Chg Fwd Diagnoses Shortness of breath R06.02 Acute metabolic encephalopathy G93.41 Acute kidney injury superimposed on CKD N17.9; N18.9 Chronic anemia D64.9 Chronic obstructive pulmonary disease, unspecified COPD type J44.9 COPD type: unspecified COPD Diastolic heart failure, unspecified HF chronicity I50.30 Heart failure chronicity: unspecified Bilateral leg edema R60.0 LEROY on CPAP G47.33; Z99.89 Essential hypertension I10 Insulin dependent type 2 diabetes mellitus E11.9; Z79.4 Hyperkalemia E87.5 UTI (urinary tract infection) N39.0 History of CVA (cerebrovascular accident) Z86.73 Expressive aphasia R47.01 Mental and behavioral problems with communication (including speech) F80.9
--- NOTE | 2024-11-25 10:39 | PM.PN ---
Subjective Subjective: On 2 L O2 by nasal cannula, status post dialysis yesterday, reasonable urine output in the last 24 hours. Medications: Reviewed: Yes Vitals/I&O/Wt Last Vital Signs Temp 97.9 F 11/25/24 07:33 Pulse 66 11/25/24 07:33 Resp 25 H 11/25/24 07:33 BP 148/65 11/25/24 07:33 Pulse Ox 93 11/25/24 07:33 O2 Del Method Nasal Cannula 11/25/24 07:33 O2 Flow Rate 2 11/25/24 07:10 FiO2 25 11/25/24 01:44 11/24/24 11/25/24 11/25/24 22:59 06:59 14:59 Intake Total 120 / 970 470 / 470 Output Total 1300 / 3800 650 / 4450 Balance -1180 / -2830 -650 / -3480 470 / 470 Weight last 48 hrs Weight 130.499 kg Weight 131.4 kg Weight 133.583 kg Weight 133.611 kg Weight 132.2 kg Physical Exam Narrative: Obese lady lying in bed using nasal cannula oxygen. Vital signs are noted. HEENT normocephalic atraumatic. Neck obese supple difficult to police judge JVP. Lungs- dec b/l basilar dullness and crackles Heart paced rhythm positive S1-S2. Abdomen is soft positive bowel sounds. Extremities 2 + edema with skin blistering and tenderness. Right femoral catheter for dialysis Neuro exam: She is awake and alert responsive knows she is in the hospital but not talking to the point and is sometimes I am not clear what she is talking about. She is weak but moves all extremities Urinary Catheter Management: Kent: Cath Placed During This Visit: yes Reason for Continuing Indwelling Catheter: Accurate Measurement of Urinary Output in Critically Ill Patients Urinary Catheter Date of Insertion: 11/20/24 Data 11/24/24 02:26 11/25/24 03:18 Micro: Microbiology 11/23/24 12:10 Urine Culture - Final Urine,Clean Catch A&P Assessment and plan (1) Acute kidney injury superimposed on CKD: Plan 64-year-old lady morbid obesity, hypertension, diabetes, sleep apnea on CPAP, history of CVA, mitral valve disease. The patient has known CKD stage IV patient presents now with altered mental status and acute kidney injury with severe volume overload. The patient was diuresed and unfortunately her creatinine has bumped and she still feels short of breath and swollen. 1. Chronic kidney disease: :Progressive renal insufficiency likely combination of diabetes hypertension obesity related FSGS, and effects of previous DELORIS. Patient now with DELORIS which can be cardiorenal syndrome versus progression of underlying CKD versus effects of medications. Renal ultrasound did not show hydronephrosis that showed a right kidney of 9.6 cm on left of 11 cm. ABG showed mixed metabolic and respiratory acidosis with a pH of 7.26 pCO2 of 45 bicarbonate of 20. However this is much improved from her pCO2 of 68 in August 2024. As patient has severe volume overload we initiated dialysis on 11/23/24 -Holding off on HD today, on 2 L O2, reasonable urine output -Will watch renal function and urine output closely-suspect patient likely need long-term HD. -Urine studies reviewed she had 2+ protein 3+ blood 2+ leuk esterase, still 21-50 white cells and squamous epithelial cells. Of note she has calcium oxalate crystals of 10-15. She also has hyaline casts Will also send an SPEP again as patient has significant anemia. 2. Anemia send iron studies B12 folate SPEP serum immunofixation and free light chain. -She received Epogen yesterday Iron saturation of 23% ferritin 128 will give IV iron. Monitor hemoglobin May need blood transfusion. 3. Diabetic control. lower sterodis as tolerated 4. MBD : Phosphorus of 5 can monitor. Await PTH -Severe vitamin D deficiency will replace 5. CHF : Echocardiogram reviewed EF of 64% with grade 3 out of 4 diastolic dysfunction with restrictive filling pattern severely elevated. Question if this could be cardiac amyloid. With severely elevated filling pressures we will continue diuresis. BP okay The patient was seen and examined with the aid of a nurse using audiovisual equipment. The patient consented to telehealth and to dialysis. PDMP PDMP Reviewed: Not Reviewed Attestations Medical Necessity Statement*: PER [facility] TEAM Coding Level of Care Code Acute Code for Chg Fwd Diagnoses Acute kidney injury superimposed on CKD N17.9; N18.9
[2024-11-25 11:47] LABS: Glucose Point of Care 418 mg/dL (70-110)
[2024-11-25] MEDS: cefTRIAXone 1,000 mg SDV 1000 MG IVP (12:29)
[2024-11-25] MEDS: insulin regular-human 100 units/1 mL 10 UNIT IVP (13:24)
[2024-11-25 15:24] LABS: Anti-Nuclear Antibody Screen NEGATIVE (NEGATIVE); KAPPA LIGHT CHAIN, FREE, SERUM 20.7 mg/L (3.3-19.4); KAPPA/LAMBDA LIGHT CHAINS FREE 1.17 (0.26-1.65); LAMBDA LIGHT CHAIN, FREE, SERU 17.7 mg/L (5.7-26.3)
[2024-11-25] MEDS: heparin 5,000 unit/mL INJ 1 mL 5000 UNIT SUBCUT (15:29)
[2024-11-25 16:09] LABS: Glucose Point of Care 301 mg/dL (70-110)
[2024-11-25] MEDS: docusate sodium 100 mg Capsule PO (17:33)
[2024-11-25 20:33] LABS: Glucose Point of Care 257 mg/dL (70-110)
[2024-11-25] MEDS: insulin glargine 100 units/1 mL 10 UNIT SUBCUT (21:41)
[2024-11-25] MEDS: atorvastatin 40 mg Tablet PO (21:41)
[2024-11-26] VITALS (18 sets, daily range): BP systolic 131–174; BP diastolic 46–75; PULSE 60–78; RESP 14–30; TEMP 35.8–36.7; O2SAT 92–100
[2024-11-26] MEDS: ipratropium-albuterol 3 mL Neb INHALATION ×3 (02:21→20:08)
[2024-11-26] MEDS: acetaminophen 325 mg Tablet 650 MG PO (02:38)
--- NOTE | 2024-11-26 03:43 | PC.NURSE ---
Patient complaining of moderate back pain down right side and middle of back. Patient already received tylenol and was resositioned. Notified and got orders to give 2 mg IVP morphine.
[2024-11-26] MEDS: morphine 4 mg/mL SDV 1 mL 2 MG IVP (03:52)
[2024-11-26] MEDS: heparin 5,000 unit/mL INJ 1 mL 5000 UNIT SUBCUT ×2 (03:52→16:04)
[2024-11-26 04:31] LABS: Basophils % 0.1 %; Eosinophils # 0.5 10^3/uL (0.0-0.8); Eosinophils % 3.9 %; Lymphocytes # 1.3 10^3/uL (0.8-4.8); Mean Corpuscular Hemoglobin 25.4 pg (27-33); Mean Corpuscular Volume 84.6 fl (85-98); Mean Platelet Volume 10.3 fL (7.4-10.4); Monocytes # 1.5 10^3/uL (0.2-0.9); Neutrophils # 9.66 10^3/uL (1.8-7.7); Nucleated Red Blood Cells % 0 %; Platelet Count 251 10^3/cmm (157-399); Red Blood Count 3.19 10^6/uL (3.85-5.65); Red Cell Distribution Width 15.5 % (12.1-15.1); White Blood Count 13.42 10^3/uL (3.29-11.43)
[2024-11-26 05:03] LABS: Alanine Aminotransferase 14 U/L (0-33); Albumin Level 3.3 g/dL (3.5-5.2); Alkaline Phosphatase 90 U/L (35-105); Anion Gap 18.2 (5-19); Aspartate Amino Transferase 10 U/L (0-32); Calcium 8.4 mg/dL (8.5-10.5); Carbon Dioxide 24 mmol/L (22-29); Chloride 103 mmol/L (98-107); Creatinine Clr Calc Pharmacy 25.4651; Globulin 1.6 g/dL (1.3-4.6); Glomerular Filtration Rate 15.7 mL/min (90-130); Glucose 178 mg/dL (65-115); Magnesium 1.9 mg/dL (1.7-2.3); Osmolality Calculated 331 mOsm/kg (285-295); Phosphorus 4.6 mg/dL (2.5-4.5); Potassium 4.2 mmol/L (3.5-5.1); Sodium 141 mmol/L (136-145); Total Bilirubin 0.2 mg/dL (0.15-1.2); Total Protein 4.9 g/dL (6.6-8.7)
[2024-11-26 05:10] LABS: Blood Urea Nitrogen 110 mg/dL (8-23)
[2024-11-26 06:10] LABS: Glucose Point of Care 219 mg/dL (70-110)
[2024-11-26] MEDS: bumetanide 0.25 mg/mL SDV 4 mL 1 MG IVP ×2 (06:10→17:14)
[2024-11-26] MEDS: buPROPion XL (24 HR) 150 mg Tablet PO (06:10)
[2024-11-26] MEDS: risperiDONE 1 mg Tablet PO (06:10)
--- NOTE | 2024-11-26 08:17 | P.PN_ITS ---
Subjective 2 Subjective: Reports she got some sleep overnight.. She states that she continues to feel better. We discussed that we need to determine need for ongoing dialysis, she has responded really well to her session so far. Will follow-up with nephrology today. Medications: Reviewed: Yes Vitals/I&O/Wt Last Vital Signs Temp 97.8 F 11/26/24 07:41 Pulse 61 11/26/24 07:41 Resp 22 H 11/26/24 07:41 BP 131/46 11/26/24 07:41 Pulse Ox 97 11/26/24 07:41 O2 Del Method Nasal Cannula 11/26/24 07:41 O2 Flow Rate 2 11/25/24 21:13 FiO2 25 11/26/24 03:28 11/25/24 11/26/24 11/26/24 22:59 06:59 14:59 Intake Total 240 / 1190 200 / 1390 240 / 240 Output Total 650 / 2050 Balance 240 / -210 -450 / -660 240 / 240 Weight last 48 hrs Weight 130.816 kg Weight 130.499 kg Weight 131.4 kg Physical Exam 2 Narrative: General: Patient is awake. Alert. Chronic word salad. Head: Normocephalic. Atraumatic. EOM intact. Neck: No JVD. Cardiovascular: RRR. No gallops. No murmurs. 2+ pitting edema bilateral lower extremities. Lungs: breath sounds are diminished, no use of accessory muscles, no crackles or wheezes. Skin: No jaundice. No rashes. Abdomen: Normal bowel sounds, abdomen soft and nontender. Extremities: No cyanosis or clubbing. Musculoskeletal: No swollen or erythematous joints. Neurological: Moves all 4 extremities. No myoclonus. Urinary Catheter Management: Kent: Cath Placed During This Visit: yes Reason for Continuing Indwelling Catheter: Accurate Measurement of Urinary Output in Critically Ill Patients Urinary Catheter Date of Insertion: 11/20/24 Data 11/26/24 04:01 11/26/24 04:01 Micro: Microbiology 11/20/24 12:05 Blood Culture - Final Blood NO GROWTH AFTER 5 DAYS 11/20/24 12:00 Blood Culture - Preliminary Blood 11/23/24 12:10 Urine Culture - Final Urine,Clean Catch A&P Assessment and plan (1) Shortness of breath: (2) Acute metabolic encephalopathy: (3) Acute kidney injury superimposed on CKD: (4) Chronic anemia: (5) COPD (chronic obstructive pulmonary disease): Qualifiers: COPD type: unspecified COPD Qualified Code(s): J44.9 - Chronic obstructive pulmonary disease, unspecified (6) Diastolic heart failure: Qualifiers: Heart failure chronicity: unspecified Qualified Code(s): I50.30 - Unspecified diastolic (congestive) heart failure (7) Bilateral leg edema: (8) LEROY on CPAP: (9) Essential hypertension: (10) Insulin dependent type 2 diabetes mellitus: (11) Hyperkalemia: (12) UTI (urinary tract infection): (13) History of CVA (cerebrovascular accident): (14) Expressive aphasia: (15) Mental and behavioral problems with communication (including speech): Plan Acute kidney injury on CKD - Nephrology following appreciate recommendations - Continue strict I's and O's - Daily assessment of volume and renal function - Favoring long-term dialysis, plan to discuss with survey statistician today Acute COPD exacerbation - Continue Pulmicort - Rotate to prednisone - Breathing treatments as needed Type 2 diabetes mellitus, uncontrolled with hyperglycemia - Continue Lantus - Adjust insulin as needed - Sliding scale insulin correction Acute on chronic diastolic heart failure with preserved ejection fraction - Continue fluid restriction - Volume control via dialysis - Strict I's and O's - Daily weights Acute complicated Proteus Mirabella's UTI - Continue ceftriaxone Acute on chronic anemia - Monitor blood counts, transfuse if needed - Continue PPI Hypertension - Continue metoprolol - Titrate blood pressures as needed Debility and physical deconditioning - The temporary femoral line is limited her mobility, hopefully can remove some - PT/OT afterwards Chronic word salad - At baseline DVT prophylaxis: Heparin CODE STATUS: Full code PDMP PDMP Reviewed: Not Reviewed Attestations 2 Medical Necessity Statement*: Patient requires ongoing hospitalization for worsening condition requiring ongoing volume support via dialysis, IV antibiotics, nephrology expertise, steroids, breathing treatments, and supportive care. Coding Level of Care Code Acute Code for Chg Fwd Diagnoses Shortness of breath R06.02 Acute metabolic encephalopathy G93.41 Acute kidney injury superimposed on CKD N17.9; N18.9 Chronic anemia D64.9 Chronic obstructive pulmonary disease, unspecified COPD type J44.9 COPD type: unspecified COPD Diastolic heart failure, unspecified HF chronicity I50.30 Heart failure chronicity: unspecified Bilateral leg edema R60.0 LEROY on CPAP G47.33; Z99.89 Essential hypertension I10 Insulin dependent type 2 diabetes mellitus E11.9; Z79.4 Hyperkalemia E87.5 UTI (urinary tract infection) N39.0 History of CVA (cerebrovascular accident) Z86.73 Expressive aphasia R47.01 Mental and behavioral problems with communication (including speech) F80.9
[2024-11-26] MEDS: predniSONE 20 mg Tablet 40 MG PO (08:18)
[2024-11-26] MEDS: allopurinol 100 mg Tablet 200 MG PO (08:19)
[2024-11-26] MEDS: b-complex-vitamin c Tablet 1 EACH PO (08:19)
[2024-11-26] MEDS: insulin lispro 100 unit/1 mL SUBCUT ×5 (08:19→21:36)
[2024-11-26] MEDS: docusate sodium 100 mg Capsule PO ×2 (08:20→17:17)
[2024-11-26] MEDS: lamoTRIgine 100 mg Tablet PO ×3 (08:20→21:32)
[2024-11-26] MEDS: heparin, porcine 1,000 unit/mL INJ 10 mL 10000 UNIT INTRACATH (08:20)
[2024-11-26] MEDS: clopidogrel 75 mg Tablet PO (08:20)
[2024-11-26] MEDS: heparin, porcine 1,000 unit/mL INJ 10 mL 1000 UNIT IV (08:21)
--- NOTE | 2024-11-26 08:22 | PC.NURSE ---
Metoprolol held per dialysis nurse, Estefania. Estefania said she would watch the blood pressure and give if needed.
[2024-11-26] MEDS: budesonide 0.5 mg/2 mL Neb INHALATION ×2 (08:30→20:08)
--- NOTE | 2024-11-26 08:31 | P.PN_ITS ---
Subjective 2 Subjective: no new c/o UOP dropped Medications: Reviewed: Yes Vitals/I&O/Wt Last Vital Signs Temp 97.8 F 11/26/24 07:41 Pulse 61 11/26/24 07:41 Resp 22 H 11/26/24 07:41 BP 131/46 11/26/24 07:41 Pulse Ox 97 11/26/24 07:41 O2 Del Method Nasal Cannula 11/26/24 07:41 O2 Flow Rate 2 11/25/24 21:13 FiO2 25 11/26/24 03:28 11/25/24 11/26/24 11/26/24 22:59 06:59 14:59 Intake Total 240 / 1190 200 / 1390 240 / 240 Output Total 650 / 2050 Balance 240 / -210 -450 / -660 240 / 240 Weight last 48 hrs Weight 130.816 kg Weight 130.499 kg Weight 131.4 kg Physical Exam 2 Narrative: Obese lady lying in bed using nasal cannula oxygen. Vital signs are noted. HEENT normocephalic atraumatic. 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 Lungs- dec b/l basilar dullness and crackles Heart paced rhythm positive S1-S2. Abdomen is soft positive bowel sounds. Extremities 2 + edema with skin blistering and tenderness. Right femoral catheter for dialysis Neuro exam: She is awake and alert responsive knows she is in the hospital but not talking to the point and is sometimes I am not clear what she is talking about. She is weak but moves all extremities Urinary Catheter Management: Kent: Cath Placed During This Visit: yes Reason for Continuing Indwelling Catheter: Accurate Measurement of Urinary Output in Critically Ill Patients Urinary Catheter Date of Insertion: 11/20/24 Data 11/26/24 04:01 11/26/24 04:01 Micro: Microbiology 11/20/24 12:05 Blood Culture - Final Blood NO GROWTH AFTER 5 DAYS 11/20/24 12:00 Blood Culture - Preliminary Blood 11/23/24 12:10 Urine Culture - Final Urine,Clean Catch A&P Assessment and plan (1) Acute kidney injury superimposed on CKD: Plan 64-year-old lady morbid obesity, hypertension, diabetes, sleep apnea on CPAP, history of CVA, mitral valve disease. The patient has known CKD stage IV patient presents now with altered mental status and acute kidney injury with severe volume overload. The patient was diuresed and unfortunately her creatinine has bumped and she still feels short of breath and swollen. 1. Chronic kidney disease: :Progressive renal insufficiency likely combination of diabetes hypertension obesity related FSGS, and effects of previous DELORIS. Patient now with DELORIS which can be cardiorenal syndrome versus progression of underlying CKD versus effects of medications. Renal ultrasound did not show hydronephrosis that showed a right kidney of 9.6 cm on left of 11 cm. ABG showed mixed metabolic and respiratory acidosis with a pH of 7.26 pCO2 of 45 bicarbonate of 20. However this is much improved from her pCO2 of 68 in August 2024. As patient has severe volume overload we initiated dialysis on 11/23/24 -HD today --suspect patient likely need long-term HD. -Urine studies reviewed she had 2+ protein 3+ blood 2+ leuk esterase, still 21- 50 white cells and squamous epithelial cells. Of note she has calcium oxalate crystals of 10-15. She also has hyaline casts Will also send an SPEP again as patient has significant anemia. 2. Anemia send iron studies B12 folate SPEP serum immunofixation and free light chain. -She received Epogen yesterday Iron saturation of 23% ferritin 128 will give IV iron. Monitor hemoglobin May need blood transfusion. 3. Diabetic control. lower sterodis as tolerated 4. MBD : Phosphorus of 5 can monitor. Await PTH -Severe vitamin D deficiency will replace 5. CHF : Echocardiogram reviewed EF of 64% with grade 3 out of 4 diastolic dysfunction with restrictive filling pattern severely elevated. Question if this could be cardiac amyloid. With severely elevated filling pressures we will continue diuresis. The patient was seen and examined with the aid of a nurse using audiovisual equipment. The patient consented to telehealth and to dialysis. PDMP PDMP Reviewed: Not Reviewed Attestations 2 Medical Necessity Statement*: per [facility] Coding Level of Care Code Acute Code for Chg Fwd Diagnoses Acute kidney injury superimposed on CKD N17.9; N18.9
[2024-11-26] MEDS: ferric gluconate 125 MG in sodium chloride 0.9% (100 ml) 100 ML 110 MG IV (09:31)
--- NOTE | 2024-11-26 10:07 | P.PN_ITS ---
Subjective 2 Subjective: Dialysis catheter working Vitals/I&O/Wt Last Vital Signs Temp 96.4 F L 11/26/24 09:39 Pulse 71 11/26/24 09:39 Resp 18 11/26/24 09:39 BP 147/61 11/26/24 09:39 Pulse Ox 99 11/26/24 08:00 O2 Del Method Nasal Cannula 11/26/24 08:00 O2 Flow Rate 2 11/26/24 08:00 FiO2 25 11/26/24 03:28 11/25/24 11/26/24 11/26/24 22:59 06:59 14:59 Intake Total 240 / 1190 200 / 1390 240 / 240 Output Total 650 / 2050 Balance 240 / -210 -450 / -660 240 / 240 Weight last 48 hrs Weight 288 lb 6.4 oz Weight 287 lb 11.2 oz Weight 289 lb 10.998 oz Physical Exam 2 Narrative: Chest: Unlabored breathing room air. No lymphadenopathy. Heart: Regular rate and rhythm. Abdomen: Soft, nontender, nondistended. No masses or lymphadenopathy. Right groin: Dialysis catheter in place and working Urinary Catheter Management: Kent: Cath Placed During This Visit: yes Reason for Continuing Indwelling Catheter: Accurate Measurement of Urinary Output in Critically Ill Patients Urinary Catheter Date of Insertion: 11/20/24 Data 11/26/24 04:01 11/26/24 04:01 Micro: Microbiology 11/20/24 12:05 Blood Culture - Final Blood NO GROWTH AFTER 5 DAYS 11/20/24 12:00 Blood Culture - Preliminary Blood 11/23/24 12:10 Urine Culture - Final Urine,Clean Catch A&P Assessment and plan (1) CKD (chronic kidney disease): Plan 64-year-old female status post right groin temporary dialysis catheter placement. Dialysis catheter working. May need tunneled dialysis catheter if planning to do dialysis long-term. PDMP PDMP Reviewed: Not Reviewed Attestations 2 Medical Necessity Statement*: N/A Coding Level of Care Code 73823 Diagnoses CKD (chronic kidney disease) N18.9
--- NOTE | 2024-11-26 10:18 | PC.SOCIAL ---
IMM Update pg 2 of IMM updated and reviewed w/ patients guardian. Copy provided and copy dated, initialed, and placed in chart.
[2024-11-26 12:47] LABS: Glucose Point of Care 198 mg/dL (70-110)
[2024-11-26] MEDS: cefTRIAXone 1,000 mg SDV 1000 MG IVP (13:02)
[2024-11-26] MEDS: insulin lispro 100 unit/1 mL 6 UNIT SUBCUT ×2 (13:03→17:16)
--- NOTE | 2024-11-26 15:36 | PC.OT ---
Pt seen for OT services and declines OT treatment. Pt is tearful and is upset about not being able to read. Pt is educated on the use of audiobooks due to her low vision, but pt states that she does not like them.
[2024-11-26 16:18] LABS: Glucose Point of Care 263 mg/dL (70-110)
[2024-11-26] MEDS: metoprolol tartrate 25 mg Tablet PO (17:17)
[2024-11-26 20:14] LABS: Glucose Point of Care 351 mg/dL (70-110)
[2024-11-26] MEDS: atorvastatin 40 mg Tablet PO (21:32)
[2024-11-26] MEDS: insulin glargine 100 units/1 mL 14 UNIT SUBCUT (21:36)
[2024-11-27] VITALS (15 sets, daily range): BP systolic 132–157; BP diastolic 52–66; PULSE 60–68; RESP 16–21; TEMP 36.7–36.9; O2SAT 94–100
[2024-11-27] MEDS: acetaminophen 325 mg Tablet 650 MG PO (00:02)
[2024-11-27] MEDS: trazodone 100 mg Tablet PO ×2 (00:02→20:49)
[2024-11-27] MEDS: ipratropium-albuterol 3 mL Neb INHALATION ×3 (01:55→19:56)
[2024-11-27 02:42] LABS: Basophils % 0.1 %; Eosinophils # 0.1 10^3/uL (0.0-0.8); Lymphocytes # 0.6 10^3/uL (0.8-4.8); Lymphocytes % 4.8 %; Mean Corpuscular Hemoglobin 25.5 pg (27-33); Mean Platelet Volume 9.8 fL (7.4-10.4); Monocytes # 0.9 10^3/uL (0.2-0.9); Monocytes % 7.4 %; Neutrophils # 10.53 10^3/uL (1.8-7.7); Neutrophils % 83.7 %; Nucleated Red Blood Cells % 0 %; Platelet Count 246 10^3/cmm (157-399); Red Blood Count 3.06 10^6/uL (3.85-5.65); Red Cell Distribution Width 15.4 % (12.1-15.1); White Blood Count 12.58 10^3/uL (3.29-11.43)
[2024-11-27 02:56] LABS: Alanine Aminotransferase 12 U/L (0-33); Albumin Level 3.2 g/dL (3.5-5.2); Alkaline Phosphatase 89 U/L (35-105); Anion Gap 14.6 (5-19); Aspartate Amino Transferase 8 U/L (0-32); Blood Urea Nitrogen 74 mg/dL (8-23); Calcium 8.3 mg/dL (8.5-10.5); Carbon Dioxide 27 mmol/L (22-29); Chloride 101 mmol/L (98-107); Creatinine Clr Calc Pharmacy 37.7641; Globulin 1.6 g/dL (1.3-4.6); Glomerular Filtration Rate 25.1 mL/min (90-130); Glucose 279 mg/dL (65-115); Osmolality Calculated 318 mOsm/kg (285-295); Phosphorus 3.9 mg/dL (2.5-4.5); Potassium 4.6 mmol/L (3.5-5.1); Sodium 138 mmol/L (136-145); Total Bilirubin 0.2 mg/dL (0.15-1.2); Total Protein 4.8 g/dL (6.6-8.7)
[2024-11-27] MEDS: heparin 5,000 unit/mL INJ 1 mL 5000 UNIT SUBCUT ×2 (04:27→15:49)
[2024-11-27 06:13] LABS: Glucose Point of Care 256 mg/dL (70-110)
[2024-11-27] MEDS: bumetanide 0.25 mg/mL SDV 4 mL 1 MG IVP ×2 (06:16→17:43)
[2024-11-27] MEDS: predniSONE 20 mg Tablet 40 MG PO (08:22)
[2024-11-27] MEDS: clopidogrel 75 mg Tablet PO (08:22)
[2024-11-27] MEDS: metoprolol tartrate 25 mg Tablet PO ×2 (08:23→17:42)
[2024-11-27] MEDS: lamoTRIgine 100 mg Tablet PO ×3 (08:23→20:49)
[2024-11-27] MEDS: risperiDONE 1 mg Tablet PO (08:23)
[2024-11-27] MEDS: allopurinol 100 mg Tablet 200 MG PO (08:24)
[2024-11-27] MEDS: docusate sodium 100 mg Capsule PO ×2 (08:24→17:42)
[2024-11-27] MEDS: b-complex-vitamin c Tablet 1 EACH PO (08:24)
[2024-11-27] MEDS: ferric gluconate 125 MG in sodium chloride 0.9% (100 ml) 100 ML 110 MG IV (08:25)
[2024-11-27] MEDS: insulin lispro 100 unit/1 mL 6 UNIT SUBCUT (08:31)
[2024-11-27] MEDS: insulin lispro 100 unit/1 mL SUBCUT ×4 (08:32→20:49)
[2024-11-27] MEDS: buPROPion XL (24 HR) 150 mg Tablet PO (08:38)
--- NOTE | 2024-11-27 08:38 | P.PN_ITS ---
Subjective 2 Subjective: s/p HD yesterday Medications: Reviewed: Yes Vitals/I&O/Wt Last Vital Signs Temp 98.0 F 11/27/24 07:04 Pulse 60 11/27/24 07:04 Resp 21 H 11/27/24 07:04 BP 144/60 11/27/24 07:04 Pulse Ox 98 11/27/24 07:04 O2 Del Method Nasal Cannula 11/27/24 07:04 O2 Flow Rate 4 11/27/24 02:00 FiO2 25 11/26/24 03:28 11/26/24 11/27/24 11/27/24 22:59 06:59 14:59 Intake Total 240 / 1090 0 / 1090 Output Total 1400 / 5400 300 / 5700 Balance -1160 / -4310 -300 / -4610 Weight last 48 hrs Weight 125.827 kg Weight 128.4 kg Weight 130.816 kg Weight 130.499 kg Physical Exam 2 Narrative: Obese lady lying in bed using nasal cannula oxygen. Vital signs are noted. HEENT normocephalic atraumatic. 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 Lungs- dec b/l basilar dullness and crackles Heart paced rhythm positive S1-S2. Abdomen is soft positive bowel sounds. Extremities 2 + edema with skin blistering and tenderness. Right femoral catheter for dialysis Neuro exam: She is awake and alert responsive knows she is in the hospital but not talking to the point and is sometimes I am not clear what she is talking about. She is weak but moves all extremities Urinary Catheter Management: Kent: Cath Placed During This Visit: yes Reason for Continuing Indwelling Catheter: Accurate Measurement of Urinary Output in Critically Ill Patients Urinary Catheter Date of Insertion: 11/20/24 Data 11/27/24 02:21 11/27/24 02:21 Micro: Microbiology 11/20/24 12:00 Blood Culture - Preliminary Blood Micrococcus and related genera A&P Assessment and plan (1) Acute kidney injury superimposed on CKD: Plan 64-year-old lady morbid obesity, hypertension, diabetes, sleep apnea on CPAP, history of CVA, mitral valve disease. The patient has known CKD stage IV patient presents now with altered mental status and acute kidney injury with severe volume overload. The patient was diuresed and unfortunately her creatinine has bumped and she still feels short of breath and swollen. 1. Chronic kidney disease: :Progressive renal insufficiency likely combination of diabetes hypertension obesity related FSGS, and effects of previous DELORIS. Patient now with DELORIS which can be cardiorenal syndrome versus progression of underlying CKD versus effects of medications. Renal ultrasound did not show hydronephrosis that showed a right kidney of 9.6 cm on left of 11 cm. ABG showed mixed metabolic and respiratory acidosis with a pH of 7.26 pCO2 of 45 bicarbonate of 20. However this is much improved from her pCO2 of 68 in August 2024. As patient has severe volume overload we initiated dialysis on 11/23/24 -HD yesterday --pt needs long-term HD for volume management , arrange for tunnelled catheter placement on FRIDAY -Urine studies reviewed she had 2+ protein 3+ blood 2+ leuk esterase, still 21- 50 white cells and squamous epithelial cells. Of note she has calcium oxalate crystals of 10-15. She also has hyaline casts Will also send an SPEP again as patient has significant anemia. 2. Anemia send iron studies B12 folate SPEP serum immunofixation and free light chain. -She received Epogen yesterday Iron saturation of 23% ferritin 128 will give IV iron. Monitor hemoglobin May need blood transfusion. 3. Diabetic control. lower sterodis as tolerated 4. MBD : Phosphorus of 5 can monitor. Await PTH -Severe vitamin D deficiency will replace 5. CHF : Echocardiogram reviewed EF of 64% with grade 3 out of 4 diastolic dysfunction with restrictive filling pattern severely elevated. Question if this could be cardiac amyloid. With severely elevated filling pressures we will continue diuresis. The patient was seen and examined with the aid of a nurse using audiovisual equipment. The patient consented to telehealth and to dialysis. PDMP PDMP Reviewed: Not Reviewed Attestations 2 Medical Necessity Statement*: per [facility] Coding Level of Care Code Acute Code for Chg Fwd Diagnoses Acute kidney injury superimposed on CKD N17.9; N18.9
[2024-11-27] MEDS: budesonide 0.5 mg/2 mL Neb INHALATION ×2 (08:59→19:56)
--- NOTE | 2024-11-27 09:32 | P.PN_ITS ---
Subjective 2 Subjective: Patient denies any new complaints. States she did not sleep well overnight again was up from about 2 AM. Pathology recommending long-term dialysis. Will need to transition to tunneled line. Volume status improving. She denies other new complaints. Medications: Reviewed: Yes Medication Review Details: Current Medications Acetaminophen (Acetaminophen 325 Mg Tablet) 650 mg PO Q6H PRN PRN Reason: Mild/Mod Pain Or Temp >/= 101 Albuterol/Ipratropium (Ipratropium-Albuterol 3 Ml Neb) 3 ml INHALATION Q6H.RESP JAMAR Last Admin: 11/24/24 03:55 Dose: Not Given Allopurinol (Allopurinol 100 Mg Tablet) 200 mg PO DAILY JAMAR Last Admin: 11/23/24 08:52 Dose: 200 mg Atorvastatin Calcium (Atorvastatin 40 Mg Tablet) 40 mg PO BEDTIME JAMAR Last Admin: 11/23/24 20:10 Dose: 40 mg Budesonide (Budesonide 0.5 Mg/2 Ml Neb) 0.5 mg INHALATION BID.RESPIRATORY JAMAR Last Admin: 11/23/24 20:16 Dose: 0.5 mg Bupropion HCl (Bupropion Xl (24 Hr) 150 Mg Tablet) 150 mg PO QAM JAMAR Last Admin: 11/24/24 05:11 Dose: 150 mg Ceftriaxone Sodium (Ceftriaxone 1,000 Mg Sdv) 1,000 mg IVP Q24H JAMAR; Protocol Last Admin: 11/23/24 12:19 Dose: 1,000 mg Clopidogrel Bisulfate (Clopidogrel 75 Mg Tablet) 75 mg PO DAILY JAMAR Last Admin: 11/23/24 08:52 Dose: 75 mg Docusate Sodium (Docusate Sodium 100 Mg Capsule) 100 mg PO BID JAMAR Last Admin: 11/23/24 17:11 Dose: Not Given Glucagon (Glucagon 1 Mg/Ml Kit 1 Ml) 1 mg IM ONCE PRN; Protocol PRN Reason: Adult Acute Hypoglycemia Nursing Prot. Heparin Sodium (Porcine) (Heparin 5,000 Unit/Ml Inj 1 Ml) 5,000 unit SUBCUT Q12H JAMAR Last Admin: 11/24/24 03:38 Dose: 5,000 unit Hydralazine HCl (Hydralazine 20 Mg/Ml Inj 1 Ml) 10 mg IVP Q4H PRN PRN Reason: SBP>180mmHg or DBP>110mmHG Dextrose (D10w) 125 mls @ 750 mls/hr IV PRN PRN PRN Reason: HYPOGLYCEMIA Dextrose (D5w) 500 mls @ 0 mls/hr IV ONCE PRN; Protocol PRN Reason: Adult Acute Hypoglycemia Prot Dextrose (D10w) 125 mls @ 750 mls/hr IV PRN PRN; Protocol PRN Reason: Adult Acute Hypoglycemia Nursing Protocol Dextrose (D10w) 250 mls @ 1,000 mls/hr IV PRN PRN; Protocol PRN Reason: Adult Acute Hypoglycemia Nursing Protocol Albumin Human (Albumin) 12.5 gm in 50 mls @ 60 mls/hr IV PRN PRN PRN Reason: Hypotension and/or symptomatic Insulin Glargine (Insulin Glargine 100 Units/1 Ml) 5 unit SUBCUT BEDTIME JAMAR Last Admin: 11/23/24 21:09 Dose: 5 unit Insulin Human Lispro (Insulin Lispro 100 Unit/1 Ml) 0 unit SUBCUT WM&BEDTIME JAMAR; Protocol Last Admin: 11/23/24 21:09 Dose: 10 unit Lactulose (Lactulose Oral Liq 20 Gm/30 Ml Udc) 10 gm PO DAILY PRN; Protocol PRN Reason: Constipation (see protocol) Lamotrigine (Lamotrigine 100 Mg Tablet) 100 mg PO TID JAMAR Last Admin: 11/23/24 20:10 Dose: 100 mg Magnesium Hydroxide (Magnesium Hydroxide 30 Ml Udc) 30 ml PO DAILY PRN; Protocol PRN Reason: Constipation (see protocol) Methylprednisolone Sodium Succinate (Methylprednisolone Sod Succ 40 Mg/Ml Inj) 40 mg IVP Q12H JAMAR Last Admin: 11/24/24 00:45 Dose: 40 mg Metoprolol Tartrate (Metoprolol Tartrate 25 Mg Tablet) 25 mg PO BID JAMAR Last Admin: 11/23/24 17:11 Dose: Not Given Multivitamins (L-Ijfcjev-Hvtoouj C Tablet) 1 each PO DAILY JAMAR Ondansetron HCl (Ondansetron 2 Mg/Ml Sdv 2 Ml) 4 mg IVP Q6H PRN PRN Reason: vomiting, or N/V if npo Risperidone (Risperidone 1 Mg Tablet) 1 mg PO QAM JAMAR Last Admin: 11/24/24 05:11 Dose: 1 mg Trazodone HCl (Trazodone 100 Mg Tablet) 100 mg PO BEDTIME PRN PRN Reason: INSOMNIA Last Admin: 11/22/24 03:11 Dose: 100 mg Vitals/I&O/Wt Last Vital Signs Temp 98.0 F 11/27/24 07:04 Pulse 61 11/27/24 09:13 Resp 16 11/27/24 08:59 BP 144/60 11/27/24 07:04 Pulse Ox 94 11/27/24 08:59 O2 Del Method Room Air 11/27/24 08:59 O2 Flow Rate 4 11/27/24 02:00 FiO2 25 11/26/24 03:28 11/26/24 11/27/24 11/27/24 22:59 06:59 14:59 Intake Total 240 / 1090 0 / 1090 480 / 480 Output Total 1400 / 5400 300 / 5700 Balance -1160 / -4310 -300 / -4610 480 / 480 Weight last 48 hrs Weight 125.827 kg Weight 128.4 kg Weight 130.816 kg Physical Exam 2 Narrative: General: Patient is awake. Alert. Chronic word salad, unchanged. Head: Normocephalic. Atraumatic. EOM intact. Neck: No JVD. Cardiovascular: RRR. No gallops. No murmurs. 2+ pitting edema bilateral lower extremities, slightly improved. Lungs: Breath sounds are diminished, no use of accessory muscles, no crackles or wheezes. Skin: No jaundice. No rashes. Abdomen: Normal bowel sounds, abdomen soft and nontender. Extremities: No cyanosis or clubbing. Musculoskeletal: No swollen or erythematous joints. Neurological: Moves all 4 extremities. No myoclonus. Urinary Catheter Management: Kent: Cath Placed During This Visit: yes Reason for Continuing Indwelling Catheter: Accurate Measurement of Urinary Output in Critically Ill Patients Urinary Catheter Date of Insertion: 11/20/24 Data 11/27/24 02:21 11/27/24 02:21 Micro: Microbiology 11/20/24 12:00 Blood Culture - Preliminary Blood Micrococcus and related genera A&P Assessment and plan (1) Shortness of breath: (2) Acute metabolic encephalopathy: (3) Acute kidney injury superimposed on CKD: (4) Chronic anemia: (5) COPD (chronic obstructive pulmonary disease): Qualifiers: COPD type: unspecified COPD Qualified Code(s): J44.9 - Chronic obstructive pulmonary disease, unspecified (6) Diastolic heart failure: Qualifiers: Heart failure chronicity: unspecified Qualified Code(s): I50.30 - Unspecified diastolic (congestive) heart failure (7) Bilateral leg edema: (8) LEROY on CPAP: (9) Essential hypertension: (10) Insulin dependent type 2 diabetes mellitus: (11) Hyperkalemia: (12) UTI (urinary tract infection): (13) History of CVA (cerebrovascular accident): (14) Expressive aphasia: (15) Mental and behavioral problems with communication (including speech): Plan Acute kidney injury on CKD - Nephrology following appreciate recommendations - Continue strict I's and O's - Daily assessment of volume and renal function - Plan is for long-term dialysis - Will need to transition from dialysis line to tunneled line; probably Friday, TBD by surgery Acute COPD exacerbation - Continue Pulmicort - Continue prednisone - Breathing treatments as needed Type 2 diabetes mellitus, uncontrolled with hyperglycemia - Continue Lantus - Adjust insulin as needed - Sliding scale insulin correction Acute on chronic diastolic heart failure with preserved ejection fraction - Continue fluid restriction - Volume control via dialysis - Strict I's and O's - Daily weights Acute complicated Proteus Mirabella's UTI - Continue ceftriaxone Acute on chronic anemia - Monitor blood counts, transfuse if needed - Continue PPI Hypertension - Continue metoprolol - Titrate blood pressures as needed Debility and physical deconditioning - The temporary femoral line is limited her mobility, hopefully can remove soon; will plan for tunnelled line - PT/OT afterwards Chronic word salad - At baseline DVT prophylaxis: Heparin CODE STATUS: Full code PDMP PDMP Reviewed: Not Reviewed Attestations 2 Medical Necessity Statement*: Patient requires ongoing hospitalization for worsening condition requiring ongoing volume support via dialysis, IV antibiotics, nephrology expertise, breathing treatments, and supportive care. Coding Level of Care Code Acute Code for Chg Fwd Diagnoses Shortness of breath R06.02 Acute metabolic encephalopathy G93.41 Acute kidney injury superimposed on CKD N17.9; N18.9 Chronic anemia D64.9 Chronic obstructive pulmonary disease, unspecified COPD type J44.9 COPD type: unspecified COPD Diastolic heart failure, unspecified HF chronicity I50.30 Heart failure chronicity: unspecified Bilateral leg edema R60.0 LEROY on CPAP G47.33; Z99.89 Essential hypertension I10 Insulin dependent type 2 diabetes mellitus E11.9; Z79.4 Hyperkalemia E87.5 UTI (urinary tract infection) N39.0 History of CVA (cerebrovascular accident) Z86.73 Expressive aphasia R47.01 Mental and behavioral problems with communication (including speech) F80.9
--- NOTE | 2024-11-27 09:48 | P.PN_ITS ---
Subjective 2 Subjective: dialysis catheter functional Vitals/I&O/Wt Last Vital Signs Temp 98.0 F 11/27/24 07:04 Pulse 61 11/27/24 09:13 Resp 16 11/27/24 08:59 BP 144/60 11/27/24 07:04 Pulse Ox 94 11/27/24 08:59 O2 Del Method Room Air 11/27/24 08:59 O2 Flow Rate 4 11/27/24 02:00 FiO2 25 11/26/24 03:28 11/26/24 11/27/24 11/27/24 22:59 06:59 14:59 Intake Total 240 / 1090 0 / 1090 480 / 480 Output Total 1400 / 5400 300 / 5700 Balance -1160 / -4310 -300 / -4610 480 / 480 Weight last 48 hrs Weight 277 lb 6.4 oz Weight 283 lb 1.176 oz Weight 288 lb 6.4 oz Physical Exam 2 Narrative: rrr unlabored breathing RA abdomen soft, nt, nd Urinary Catheter Management: Kent: Cath Placed During This Visit: yes Reason for Continuing Indwelling Catheter: Accurate Measurement of Urinary Output in Critically Ill Patients Urinary Catheter Date of Insertion: 11/20/24 Data 11/27/24 02:21 11/28/24 02:36 Micro: Microbiology 11/20/24 12:00 Blood Culture - Preliminary Blood Micrococcus and related genera A&P Assessment and plan (1) Acute kidney injury superimposed on CKD: Plan 64 yo female whom surgery was consutled for dialysis access. Temp dialysis catheter functional. Nephrology considering TDC. PDMP PDMP Reviewed: Not Reviewed Attestations 2 Medical Necessity Statement*: NA Coding Level of Care Code 50532 Diagnoses Acute kidney injury superimposed on CKD N17.9; N18.9
[2024-11-27 11:27] LABS: Glucose Point of Care 238 mg/dL (70-110)
[2024-11-27] MEDS: insulin lispro 100 unit/1 mL 8 UNIT SUBCUT ×2 (11:53→16:00)
[2024-11-27] MEDS: cefTRIAXone 1,000 mg SDV 1000 MG IVP (13:34)
--- NOTE | 2024-11-27 16:16 | PC.RESP ---
therapist called to er, pt asleep with no s/s respiratory distress noted.
[2024-11-27 16:29] LABS: Glucose Point of Care 203 mg/dL (70-110)
[2024-11-27 20:20] LABS: Glucose Point of Care 259 mg/dL (70-110)
[2024-11-27] MEDS: atorvastatin 40 mg Tablet PO (20:49)
[2024-11-27] MEDS: HYDROcodone-acetaminophen 5-325 mg Tablet 1 TAB PO (20:49)
[2024-11-27] MEDS: insulin glargine 100 units/1 mL 16 UNIT SUBCUT (20:50)
[2024-11-28] VITALS (19 sets, daily range): BP systolic 124–163; BP diastolic 49–67; PULSE 60–71; RESP 10–21; TEMP 36.2–37.1; O2SAT 93–99
[2024-11-28] MEDS: ipratropium-albuterol 3 mL Neb INHALATION ×4 (02:37→20:12)
[2024-11-28] MEDS: heparin 5,000 unit/mL INJ 1 mL 5000 UNIT SUBCUT ×2 (03:30→16:38)
[2024-11-28 04:29] LABS: Albumin Level 3.1 g/dL (3.5-5.2); Anion Gap 14.7 (5-19); Calcium 8.4 mg/dL (8.5-10.5); Carbon Dioxide 27 mmol/L (22-29); Chloride 101 mmol/L (98-107); Glomerular Filtration Rate 23.7 mL/min (90-130); Glucose 186 mg/dL (65-115); Phosphorus 4.4 mg/dL (2.5-4.5); Potassium 4.7 mmol/L (3.5-5.1); Sodium 138 mmol/L (136-145)
[2024-11-28 04:43] LABS: Blood Urea Nitrogen 82 mg/dL (8-23)
[2024-11-28] MEDS: buPROPion XL (24 HR) 150 mg Tablet PO (05:31)
[2024-11-28] MEDS: risperiDONE 1 mg Tablet PO (05:31)
[2024-11-28] MEDS: HYDROcodone-acetaminophen 5-325 mg Tablet 1 TAB PO ×2 (05:31→20:52)
[2024-11-28] MEDS: bumetanide 0.25 mg/mL SDV 4 mL 1 MG IVP ×2 (05:32→17:18)
[2024-11-28 06:38] LABS: Glucose Point of Care 180 mg/dL (70-110)
[2024-11-28] MEDS: insulin lispro 100 unit/1 mL 8 UNIT SUBCUT (07:21)
--- NOTE | 2024-11-28 08:21 | P.PN_ITS ---
Subjective 2 Subjective: Nephrology wants TDC Temp dialysis catheter functional Vitals/I&O/Wt Last Vital Signs Temp 98.2 F 11/28/24 07:26 Pulse 60 11/28/24 07:26 Resp 12 11/28/24 07:26 BP 135/56 11/28/24 07:26 Pulse Ox 97 11/28/24 07:26 O2 Del Method Nasal Cannula 11/28/24 07:26 O2 Flow Rate 4 11/28/24 03:29 FiO2 25 11/26/24 03:28 11/27/24 11/28/24 11/28/24 22:59 06:59 14:59 Intake Total 1110 / 1590 Output Total 1200 / 1200 250 / 1450 Balance -90 / 390 -250 / 140 Weight last 48 hrs Weight 277 lb Weight 277 lb 6.4 oz Weight 283 lb 1.176 oz Physical Exam 2 Narrative: rrr unlabored breathing ra abdomen soft, nt, nd r groin temp dialysis catheter functional Urinary Catheter Management: Kent: Cath Placed During This Visit: yes Reason for Continuing Indwelling Catheter: Accurate Measurement of Urinary Output in Critically Ill Patients Urinary Catheter Date of Insertion: 11/20/24 Data 11/27/24 02:21 11/28/24 02:36 Micro: Microbiology 11/20/24 12:00 Blood Culture - Final Blood Micrococcus and related genera A&P Assessment and plan (1) Acute kidney injury superimposed on CKD: Plan 64 yo female with renal failure. Will plan for TDC Friday. NPO after midnight PDMP PDMP Reviewed: Not Reviewed Attestations 2 Medical Necessity Statement*: NA Coding Level of Care Code 38103 Diagnoses Acute kidney injury superimposed on CKD N17.9; N18.9
--- NOTE | 2024-11-28 08:24 | PM.PN ---
Subjective Subjective: Patient resting comfortably on exam. Denies new complaints. Discussed with general surgery Dr Wolf yesterday regarding need for tunnelled dialysis line; tentatively planning for Friday or Friday. Medications: Reviewed: Yes Medication Review Details: Current Medications Acetaminophen (Acetaminophen 325 Mg Tablet) 650 mg PO Q6H PRN PRN Reason: Mild/Mod Pain Or Temp >/= 101 Albuterol/Ipratropium (Ipratropium-Albuterol 3 Ml Neb) 3 ml INHALATION Q6H.RESP JAMAR Last Admin: 11/24/24 03:55 Dose: Not Given Allopurinol (Allopurinol 100 Mg Tablet) 200 mg PO DAILY JAMAR Last Admin: 11/23/24 08:52 Dose: 200 mg Atorvastatin Calcium (Atorvastatin 40 Mg Tablet) 40 mg PO BEDTIME JAMAR Last Admin: 11/23/24 20:10 Dose: 40 mg Budesonide (Budesonide 0.5 Mg/2 Ml Neb) 0.5 mg INHALATION BID.RESPIRATORY JAMAR Last Admin: 11/23/24 20:16 Dose: 0.5 mg Bupropion HCl (Bupropion Xl (24 Hr) 150 Mg Tablet) 150 mg PO QAM JAMAR Last Admin: 11/24/24 05:11 Dose: 150 mg Ceftriaxone Sodium (Ceftriaxone 1,000 Mg Sdv) 1,000 mg IVP Q24H [facility]; Protocol Last Admin: 11/23/24 12:19 Dose: 1,000 mg Clopidogrel Bisulfate (Clopidogrel 75 Mg Tablet) 75 mg PO DAILY [facility] Last Admin: 11/23/24 08:52 Dose: 75 mg Docusate Sodium (Docusate Sodium 100 Mg Capsule) 100 mg PO BID [facility] Last Admin: 11/23/24 17:11 Dose: Not Given Glucagon (Glucagon 1 Mg/Ml Kit 1 Ml) 1 mg IM ONCE PRN; Protocol PRN Reason: Adult Acute Hypoglycemia Nursing Prot. Heparin Sodium (Porcine) (Heparin 5,000 Unit/Ml Inj 1 Ml) 5,000 unit SUBCUT Q12H JAMAR Last Admin: 11/24/24 03:38 Dose: 5,000 unit Hydralazine HCl (Hydralazine 20 Mg/Ml Inj 1 Ml) 10 mg IVP Q4H PRN PRN Reason: SBP>180mmHg or DBP>110mmHG Dextrose (D10w) 125 mls @ 750 mls/hr IV PRN PRN PRN Reason: HYPOGLYCEMIA Dextrose (D5w) 500 mls @ 0 mls/hr IV ONCE PRN; Protocol PRN Reason: Adult Acute Hypoglycemia Prot Dextrose (D10w) 125 mls @ 750 mls/hr IV PRN PRN; Protocol PRN Reason: Adult Acute Hypoglycemia Nursing Protocol Dextrose (D10w) 250 mls @ 1,000 mls/hr IV PRN PRN; Protocol PRN Reason: Adult Acute Hypoglycemia Nursing Protocol Albumin Human (Albumin) 12.5 gm in 50 mls @ 60 mls/hr IV PRN PRN PRN Reason: Hypotension and/or symptomatic Insulin Glargine (Insulin Glargine 100 Units/1 Ml) 5 unit SUBCUT BEDTIME JAMAR Last Admin: 11/23/24 21:09 Dose: 5 unit Insulin Human Lispro (Insulin Lispro 100 Unit/1 Ml) 0 unit SUBCUT WM&BEDTIME JAMAR; Protocol Last Admin: 11/23/24 21:09 Dose: 10 unit Lactulose (Lactulose Oral Liq 20 Gm/30 Ml Udc) 10 gm PO DAILY PRN; Protocol PRN Reason: Constipation (see protocol) Lamotrigine (Lamotrigine 100 Mg Tablet) 100 mg PO TID JAMAR Last Admin: 11/23/24 20:10 Dose: 100 mg Magnesium Hydroxide (Magnesium Hydroxide 30 Ml Udc) 30 ml PO DAILY PRN; Protocol PRN Reason: Constipation (see protocol) Methylprednisolone Sodium Succinate (Methylprednisolone Sod Succ 40 Mg/Ml Inj) 40 mg IVP Q12H JAMAR Last Admin: 11/24/24 00:45 Dose: 40 mg Metoprolol Tartrate (Metoprolol Tartrate 25 Mg Tablet) 25 mg PO BID JAMAR Last Admin: 11/23/24 17:11 Dose: Not Given Multivitamins (Z-Mrmegds-Khxldfp C Tablet) 1 each PO DAILY JAMAR Ondansetron HCl (Ondansetron 2 Mg/Ml Sdv 2 Ml) 4 mg IVP Q6H PRN PRN Reason: vomiting, or N/V if npo Risperidone (Risperidone 1 Mg Tablet) 1 mg PO QAM [facility] Last Admin: 11/24/24 05:11 Dose: 1 mg Trazodone HCl (Trazodone 100 Mg Tablet) 100 mg PO BEDTIME PRN PRN Reason: INSOMNIA Last Admin: 11/22/24 03:11 Dose: 100 mg Vitals/I&O/Wt Last Vital Signs Temp 98.2 F 11/28/24 07:26 Pulse 60 11/28/24 07:26 Resp 12 11/28/24 07:26 BP 135/56 11/28/24 07:26 Pulse Ox 97 11/28/24 07:26 O2 Del Method Nasal Cannula 11/28/24 07:26 O2 Flow Rate 4 11/28/24 03:29 FiO2 25 11/26/24 03:28 11/27/24 11/28/24 11/28/24 22:59 06:59 14:59 Intake Total 1110 / 1590 Output Total 1200 / 1200 250 / 1450 Balance -90 / 390 -250 / 140 Weight last 48 hrs Weight 125.645 kg Weight 125.827 kg Weight 128.4 kg Physical Exam Narrative: General: Patient is sleeping, arouses to stimulation. Head: Normocephalic. Atraumatic. EOM intact. Neck: No JVD. Cardiovascular: RRR. No gallops. No murmurs. 2+ pitting edema bilateral lower extremities. Lungs: Breath sounds are diminished, no use of accessory muscles, no crackles or wheezes. Skin: No jaundice. No rashes. Abdomen: Normal bowel sounds, abdomen soft and nontender. Extremities: No cyanosis or clubbing. Musculoskeletal: No swollen or erythematous joints. Neurological: Moves all 4 extremities. No myoclonus. Urinary Catheter Management: Kent: Cath Placed During This Visit: yes Reason for Continuing Indwelling Catheter: Accurate Measurement of Urinary Output in Critically Ill Patients Urinary Catheter Date of Insertion: 11/20/24 Data 11/27/24 02:21 11/28/24 02:36 Micro: Microbiology 11/20/24 12:00 Blood Culture - Final Blood Micrococcus and related genera A&P Assessment and plan (1) Shortness of breath: (2) Acute metabolic encephalopathy: (3) Acute kidney injury superimposed on CKD: (4) Chronic anemia: (5) COPD (chronic obstructive pulmonary disease): Qualifiers: COPD type: unspecified COPD Qualified Code(s): J44.9 - Chronic obstructive pulmonary disease, unspecified (6) Diastolic heart failure: Qualifiers: Heart failure chronicity: unspecified Qualified Code(s): I50.30 - Unspecified diastolic (congestive) heart failure (7) Bilateral leg edema: (8) LEROY on CPAP: (9) Essential hypertension: (10) Insulin dependent type 2 diabetes mellitus: (11) Hyperkalemia: (12) UTI (urinary tract infection): (13) History of CVA (cerebrovascular accident): (14) Expressive aphasia: (15) Mental and behavioral problems with communication (including speech): Plan Acute kidney injury on CKD - Nephrology following appreciate recommendations - Continue strict I's and O's - Daily assessment of volume and renal function - Plan is for long-term dialysis - Patient will need temporarly HD line remove and tunnelled HD line placed; d/w Dr Wolf; hopeful for Friday as she remains immobile with femoral HD line Acute COPD exacerbation - Continue Pulmicort - Continue prednisone - Breathing treatments as needed Type 2 diabetes mellitus, uncontrolled with hyperglycemia - Continue Lantus - Adjust insulin as needed - Sliding scale insulin correction Acute on chronic diastolic heart failure with preserved ejection fraction - Continue fluid restriction - Volume control via dialysis - Strict I's and O's - Daily weights Acute complicated Proteus Mirabella's UTI - Complete ceftriaxone Acute on chronic anemia - Monitor blood counts, transfuse if needed - Continue PPI Hypertension - Continue metoprolol Debility and physical deconditioning - PT/OT after temp line removed Chronic word salad - At baseline DVT prophylaxis: Heparin CODE STATUS: Full code PDMP PDMP Reviewed: Not Reviewed Attestations Medical Necessity Statement*: Patient requires ongoing hospitalization for worsening condition requiring ongoing volume support via dialysis, IV antibiotics, nephrology expertise, tunnel line placement, and supportive care. Coding Level of Care Code Acute Code for [facility] Fwd Diagnoses Shortness of breath R06.02 Acute metabolic encephalopathy G93.41 Acute kidney injury superimposed on CKD N17.9; N18.9 Chronic anemia D64.9 Chronic obstructive pulmonary disease, unspecified COPD type J44.9 COPD type: unspecified COPD Diastolic heart failure, unspecified HF chronicity I50.30 Heart failure chronicity: unspecified Bilateral leg edema R60.0 LEROY on CPAP G47.33; Z99.89 Essential hypertension I10 Insulin dependent type 2 diabetes mellitus E11.9; Z79.4 Hyperkalemia E87.5 UTI (urinary tract infection) N39.0 History of CVA (cerebrovascular accident) Z86.73 Expressive aphasia R47.01 Mental and behavioral problems with communication (including speech) F80.9
[2024-11-28] MEDS: budesonide 0.5 mg/2 mL Neb INHALATION ×2 (08:36→20:12)
[2024-11-28] MEDS: ferric gluconate 125 MG in sodium chloride 0.9% (100 ml) 100 ML 110 MG IV (08:41)
[2024-11-28] MEDS: allopurinol 100 mg Tablet 200 MG PO (08:43)
[2024-11-28] MEDS: docusate sodium 100 mg Capsule PO ×2 (08:44→17:18)
[2024-11-28] MEDS: predniSONE 20 mg Tablet 40 MG PO (08:44)
[2024-11-28] MEDS: lamoTRIgine 100 mg Tablet PO ×3 (08:44→20:53)
[2024-11-28] MEDS: metoprolol tartrate 25 mg Tablet PO ×2 (08:44→17:18)
[2024-11-28] MEDS: clopidogrel 75 mg Tablet PO (08:44)
[2024-11-28] MEDS: b-complex-vitamin c Tablet 1 EACH PO (08:44)
[2024-11-28] MEDS: insulin lispro 100 unit/1 mL SUBCUT ×3 (08:45→20:51)
--- NOTE | 2024-11-28 09:12 | P.PN_ITS ---
Subjective 2 Subjective: getting tunnelled catheter placement today Medications: Reviewed: Yes Vitals/I&O/Wt Last Vital Signs Temp 98.2 F 11/28/24 07:26 Pulse 61 11/28/24 09:01 Resp 16 11/28/24 08:00 BP 135/56 11/28/24 07:26 Pulse Ox 96 11/28/24 09:01 O2 Del Method Nasal Cannula 11/28/24 08:00 O2 Flow Rate 3 11/28/24 08:00 FiO2 25 11/28/24 09:01 11/27/24 11/28/24 11/28/24 22:59 06:59 14:59 Intake Total 1110 / 1590 Output Total 1200 / 1200 250 / 1450 Balance -90 / 390 -250 / 140 Weight last 48 hrs Weight 125.645 kg Weight 125.827 kg Weight 128.4 kg Physical Exam 2 Narrative: Obese lady lying in bed using nasal cannula oxygen. Vital signs are noted. HEENT normocephalic atraumatic. Neck obese supple difficult to patient resource specialist JVP. Lungs- dec b/l basilar dullness and crackles Heart paced rhythm positive S1-S2. Abdomen is soft positive bowel sounds. Extremities 2 + edema with skin blistering and tenderness. Right femoral catheter for dialysis Neuro exam: She is awake and alert responsive knows she is in the hospital but not talking to the point and is sometimes I am not clear what she is talking about. She is weak but moves all extremities Urinary Catheter Management: Kent: Cath Placed During This Visit: yes Reason for Continuing Indwelling Catheter: Accurate Measurement of Urinary Output in Critically Ill Patients Urinary Catheter Date of Insertion: 11/20/24 Data 11/29/24 07:19 11/30/24 04:42 Micro: Microbiology 11/20/24 12:00 Blood Culture - Final Blood Micrococcus and related genera A&P Assessment and plan (1) Acute kidney injury superimposed on CKD: Plan 64-year-old lady morbid obesity, hypertension, diabetes, sleep apnea on CPAP, history of CVA, mitral valve disease. The patient has known CKD stage IV patient presents now with altered mental status and acute kidney injury with severe volume overload. The patient was diuresed and unfortunately her creatinine has bumped and she still feels short of breath and swollen. 1. Chronic kidney disease: :Progressive renal insufficiency likely combination of diabetes hypertension obesity related FSGS, and effects of previous DELORIS. Patient now with DELORIS which can be cardiorenal syndrome versus progression of underlying CKD versus effects of medications. Renal ultrasound did not show hydronephrosis that showed a right kidney of 9.6 cm on left of 11 cm. ABG showed mixed metabolic and respiratory acidosis with a pH of 7.26 pCO2 of 45 bicarbonate of 20. However this is much improved from her pCO2 of 68 in August 2024. As patient has severe volume overload we initiated dialysis on 11/23/24 -HD done friday --getting tunnelled catheter placed today , and HD tomorrow -Urine studies reviewed she had 2+ protein 3+ blood 2+ leuk esterase, still 21- 50 white cells and squamous epithelial cells. Of note she has calcium oxalate crystals of 10-15. She also has hyaline casts Will also send an SPEP again as patient has significant anemia. 2. Anemia send iron studies B12 folate SPEP serum immunofixation and free light chain. -She received Epogen yesterday Iron saturation of 23% ferritin 128 will give IV iron. Monitor hemoglobin May need blood transfusion. 3. Diabetic control. lower sterodis as tolerated 4. MBD : Phosphorus of 5 can monitor. Await PTH -Severe vitamin D deficiency will replace 5. CHF : Echocardiogram reviewed EF of 64% with grade 3 out of 4 diastolic dysfunction with restrictive filling pattern severely elevated. Question if this could be cardiac amyloid. With severely elevated filling pressures we will continue diuresis. The patient was seen and examined with the aid of a nurse using audiovisual equipment. The patient consented to telehealth and to dialysis. PDMP PDMP Reviewed: Not Reviewed Attestations 2 Medical Necessity Statement*: per grzegorz Coding Level of Care Code Acute Code for [facility] Fwd Diagnoses Acute kidney injury superimposed on CKD N17.9; N18.9
--- NOTE | 2024-11-28 10:22 | PC.NURSE ---
Patient left [facility] for dialysis at 1015.
[2024-11-28 11:52] LABS: Glucose Point of Care 148 mg/dL (70-110)
--- NOTE | 2024-11-28 14:34 | PC.NURSE ---
Patient returned to [facility] from dialysis at 1412.
[2024-11-28] MEDS: cefTRIAXone 1,000 mg SDV 1000 MG IVP (14:59)
[2024-11-28] MEDS: insulin lispro 100 unit/1 mL 9 UNIT SUBCUT (16:40)
[2024-11-28 16:44] LABS: Glucose Point of Care 254 mg/dL (70-110)
[2024-11-28 20:46] LABS: Glucose Point of Care 297 mg/dL (70-110)
[2024-11-28] MEDS: insulin glargine 100 units/1 mL 18 UNIT SUBCUT (20:52)
[2024-11-28] MEDS: atorvastatin 40 mg Tablet PO (20:53)
[2024-11-28] MEDS: trazodone 100 mg Tablet PO (20:53)
[2024-11-29] VITALS (20 sets, daily range): BP systolic 99–152; BP diastolic 45–69; PULSE 60–68; RESP 12–22; TEMP 36.1–37.1; O2SAT 92–98
[2024-11-29] MEDS: ipratropium-albuterol 3 mL Neb INHALATION ×3 (02:07→19:54)
[2024-11-29] MEDS: heparin 5,000 unit/mL INJ 1 mL 5000 UNIT SUBCUT ×2 (04:09→15:07)
[2024-11-29 06:25] LABS: Glucose Point of Care 130 mg/dL (70-110)
[2024-11-29] MEDS: bumetanide 0.25 mg/mL SDV 4 mL 1 MG IVP ×2 (06:33→16:43)
[2024-11-29 07:23] LABS: Basophils % 0.1 %; Eosinophils # 0.4 10^3/uL (0.0-0.8); Eosinophils % 3.2 %; Hematocrit 26.8 % (36-47); Lymphocytes # 1.1 10^3/uL (0.8-4.8); Lymphocytes % 9.2 %; Mean Corpuscular HGB Conc 29.9 g/dL (30-55); Mean Corpuscular Hemoglobin 25.2 pg (27-33); Mean Corpuscular Volume 84.3 fl (85-98); Mean Platelet Volume 9.7 fL (7.4-10.4); Monocytes # 0.9 10^3/uL (0.2-0.9); Monocytes % 7.3 %; Neutrophils # 9.62 10^3/uL (1.8-7.7); Neutrophils % 78.2 %; Nucleated Red Blood Cells % 0 %; Platelet Count 230 10^3/cmm (157-399); Red Blood Count 3.18 10^6/uL (3.85-5.65); Red Cell Distribution Width 15.7 % (12.1-15.1)
--- NOTE | 2024-11-29 07:33 | PM.MISC ---
Miscellaneous Note Note: Unable to reach guardian for TDC today. Will keep trying
[2024-11-29 07:40] LABS: Albumin Level 3.1 g/dL (3.5-5.2); Anion Gap 13.3 (5-19); Blood Urea Nitrogen 65 mg/dL (8-23); Calcium 8.4 mg/dL (8.5-10.5); Carbon Dioxide 27 mmol/L (22-29); Chloride 102 mmol/L (98-107); Creatinine Clr Calc Pharmacy 37.1558; Glomerular Filtration Rate 25.1 mL/min (90-130); Glucose 121 mg/dL (65-115); Phosphorus 3.9 mg/dL (2.5-4.5); Potassium 4.3 mmol/L (3.5-5.1); Sodium 138 mmol/L (136-145)
--- NOTE | 2024-11-29 07:44 | PC.NURSE ---
Patient left [facility] to surgery at 0715.
--- NOTE | 2024-11-29 07:48 | PM.MISC ---
Miscellaneous Note Note: Obtained consent from Brenton Hsu (guardian) for tunneled dialysis catheter placement.
--- NOTE | 2024-11-29 07:49 | P.PN_ITS ---
Subjective 2 Subjective: Temporary dialysis catheter placement working Vitals/I&O/Wt Last Vital Signs Temp 97.8 F 11/29/24 07:38 Pulse 61 11/29/24 07:38 Resp 18 11/29/24 07:38 BP 137/69 11/29/24 07:38 Pulse Ox 93 11/29/24 07:38 O2 Del Method Room Air 11/29/24 07:38 O2 Flow Rate 2 11/29/24 02:07 FiO2 25 11/28/24 21:29 11/28/24 11/29/24 11/29/24 22:59 06:59 14:59 Output Total 1300 / 4800 300 / 5100 Balance -1300 / -4190 -300 / -4490 Weight last 48 hrs Weight 275 lb 9.6 oz Weight 270 lb 4.587 oz Weight 277 lb Physical Exam 2 Narrative: rrr unlabored breathing ra right groin - temporary dialysis catheter working Urinary Catheter Management: Kent: Cath Placed During This Visit: yes Reason for Continuing Indwelling Catheter: Accurate Measurement of Urinary Output in Critically Ill Patients Urinary Catheter Date of Insertion: 11/20/24 Data 11/29/24 07:19 11/29/24 07:19 A&P Assessment and plan (1) Acute kidney injury superimposed on CKD: Plan 64 yo female who presented with renal failure. Discussed risks and benefits and guardian and patient agree to proceed with tunneled dialysis catheter placement. PDMP PDMP Reviewed: Not Reviewed Attestations 2 Medical Necessity Statement*: NA Coding Level of Care Code 53257 Diagnoses Acute kidney injury superimposed on CKD N17.9; N18.9
--- NOTE | 2024-11-29 08:21 | ANES.PREANE2 ---
Pre-Anesthetic Assessment Height/Weight: Height 1.63 m Weight 125.01 kg Temp Pulse Resp BP Pulse Ox O2 Del Method O2 Flow Rate 97.8 F 61 18 137/69 93 Room Air 2 11/29/24 07:38 11/29/24 07:38 11/29/24 07:38 11/29/24 07:38 11/29/24 07:38 11/29/24 07:38 11/29/24 02:07 FiO2 25 11/28/24 21:29 Operation Date: 11/29/24 08:10 Proposed Procedures p Dialysis Catheter Insertion(Not Applicable) - Davide Wolf MD Social No alcohol and No tobacco Exam alert (lacks situational awareness and orientation ) Airway Submandibular: within normal limits Cervical ROM: Other (limited due to obesity ) Mallampati: Class II Pulmonary Chronic Obstructive Pulmonary Disease and Sleep Apnea CV/HEM Congestive Heart Failure and Hypertension Chronic Renal Failure Metabolic Diabetes Mellitus, Hyperlipidemia and Morbid Obesity Neuropsych Cerebrovascular Accident Anesthetic Plan ASA status: 4 Anesthesia: MAC Medications/Allergies Home Medications ?Medication ?Instructions ?Recorded ?Confirmed ?Last Taken ?Type allopurinol 300 mg tablet 300 mg PO DAILY #90 tabs 05/03/20 11/20/24 11/20/24 Rx clopidogrel 75 mg tablet 75 mg PO DAILY 07/08/20 11/20/24 11/20/24 History metoprolol tartrate 25 mg tablet 37.5 mg PO BID 07/08/20 11/20/24 11/20/24 History acetaminophen 325 mg tablet 650 mg PO Q6H PRN PAIN OR ELEVATED 10/03/21 11/20/24 01/15/24 History (Tylenol) TEMP atorvastatin 40 mg tablet 40 mg PO BEDTIME 10/03/21 11/20/24 11/19/24 History calcium carbonate 500 mg PO Q8H PRN 10/03/21 11/20/24 11/19/24 History gastro-esophageal reflux cetirizine 10 mg tablet 10 mg PO DAILY 10/03/21 11/20/24 11/20/24 History magnesium hydroxide 400 mg/5 mL 30 ml PO DAILY PRN Constipation 10/03/21 11/20/24 Unknown History oral suspension (Milk of Magnesia) 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 meter,continuous #1 ea 03/12/23 11/20/24 Unknown Rx (Dexcom G7 [employer]) 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 sensor (Dexcom G7 #1 ea 03/12/23 11/20/24 Unknown Rx Sensor device) tramadol 50 mg tablet 50 mg PO Q6H PRN pain #120 tabs 11/18/23 11/20/24 08/25/24 Rx ascorbic acid (vitamin C) 500 mg 500 mg PO DAILY 03/03/24 11/20/24 11/20/24 History tablet (Vitamin C) diphenhydramine HCl 25 mg capsule 25 mg PO Q12H PRN Allergy Symptoms 03/03/24 11/20/24 03/02/24 History (Banophen) fluticasone propionate 50 1 spray intranasal Q12H PRN 03/03/24 11/20/24 11/20/24 History mcg/actuation nasal ALLERGIES spray,suspension lidocaine 5 % topical patch 1 patch topical Q12H PRN Pain 03/03/24 11/20/24 Unknown History ondansetron HCl 4 mg tablet 4 mg PO Q6H PRN Nausea And Vomiting 03/03/24 11/20/24 Unknown History bupropion HCl 150 mg 24 hr tablet, 150 mg PO QAM 07/16/24 11/20/24 11/20/24 History extended release eszopiclone 3 mg tablet 3 mg PO BEDTIME 07/16/24 11/20/24 11/19/24 20:00 History lamotrigine 100 mg tablet 100 mg PO TID 07/16/24 11/20/24 11/20/24 08:00 History risperidone 1 mg tablet 1 mg PO QAM 07/16/24 11/20/24 11/20/24 History hydralazine 25 mg tablet 25 mg PO Q8H 08/30/24 11/20/24 11/20/24 History melatonin 5 mg tablet 10 mg PO BEDTIME 08/30/24 11/20/24 11/19/24 History olanzapine 5 mg tablet 5 mg PO BEDTIME 08/30/24 11/20/24 11/19/24 20:00 History insulin aspart U-100 100 unit/mL See Rx Instructions .Route 09/07/24 11/20/24 08/30/24 Rx (3 mL) subcutaneous pen (Novolog .COMPLEX #15 mL FlexPen U-100 Insulin aspart) insulin glargine 100 unit/mL (3 10 unit (0.1 mL) SUBCUT DAILY #15 01/21/25 04/05/25 04/05/25 Rx mL) subcutaneous pen (Lantus mL Solostar U-100 Insulin) potassium chloride 10 mEq 10 meq PO BID 11/20/24 11/20/24 11/20/24 07:00 History tablet,extended release sucralfate 100 mg/mL oral 100 mg PO TID 11/20/24 11/20/24 11/19/24 History suspension Allergies Allergy/AdvReac Type Severity Reaction Status Date / Time clarithromycin (From Biaxin) Allergy nausea Verified 09/14/24 06:32 clindamycin Allergy shock Verified 09/14/24 06:32 diclofenac Allergy swelling Verified 09/14/24 06:32 enalapril Allergy unknown Verified 09/14/24 06:32 ketorolac (From Toradol) Allergy short of Verified 09/14/24 06:32 breath losartan (From Cozaar) Allergy shock Verified 09/14/24 06:32 nifedipine (From Procardia) Allergy hives Verified 09/14/24 06:32 pregabalin (From Lyrica) Allergy unknown Verified 09/14/24 06:32 Sulfa (Sulfonamide Allergy anaphylasix Verified 09/14/24 06:32 Antibiotics) Current Medications Generic Name Dose Route Start Last Admin Trade Name Freq PRN Reason Stop Dose Admin Acetaminophen 650 mg 11/20/24 15:53 11/27/24 00:02 Acetaminophen 325 Mg Tablet PO 650 mg Q6H PRN Administration Mild/Mod Pain Or Temp >/= 101 Hydrocodone Bitart/Acetaminophen 1 tab 11/27/24 19:38 11/28/24 20:52 Hydrocodone-Acetaminophen 5-325 Mg Tablet PO 1 tab Q8H PRN Administration MODERATE PAIN Albuterol/Ipratropium 3 ml 11/20/24 20:00 11/29/24 02:07 Ipratropium-Albuterol 3 Ml Neb INHALATION 3 ml Q6H.RESP JAMAR Administration Allopurinol 200 mg 11/22/24 09:00 11/28/24 08:43 Allopurinol 100 Mg Tablet PO 200 mg DAILY JAMAR Administration Atorvastatin Calcium 40 mg 11/20/24 21:00 11/28/24 20:53 Atorvastatin 40 Mg Tablet PO 40 mg BEDTIME JAMAR Administration Budesonide 0.5 mg 11/20/24 20:00 11/28/24 20:12 Budesonide 0.5 Mg/2 Ml Neb INHALATION 0.5 mg BID.RESPIRATORY JAMAR Administration Bumetanide 1 mg 11/24/24 18:00 11/29/24 06:33 Bumetanide 0.25 Mg/Ml Sdv 4 Ml IVP 1 mg Q12H JAMAR Administration Bupropion HCl 150 mg 11/21/24 06:00 11/28/24 05:31 Bupropion Xl (24 Hr) 150 Mg Tablet PO 150 mg QAM JAMAR Administration Ceftriaxone Sodium 1,000 mg 11/26/24 13:30 11/28/24 14:59 Ceftriaxone 1,000 Mg Sdv IVP 1,000 mg Q24H JAMAR Administration Protocol Clopidogrel Bisulfate 75 mg 11/21/24 09:00 11/28/24 08:44 Clopidogrel 75 Mg Tablet PO 75 mg DAILY JAMAR Administration Docusate Sodium 100 mg 11/20/24 18:00 11/28/24 17:18 Docusate Sodium 100 Mg Capsule PO 100 mg BID JAMAR Administration Ergocalciferol 50,000 unit 11/24/24 08:00 11/24/24 12:09 Ergocalciferol (Vitamin D2) 50,000 Unit Capsule PO 50,000 unit Q7D JAMAR Administration Heparin Sodium (Porcine) 5,000 unit 11/20/24 16:00 11/29/24 04:09 Heparin 5,000 Unit/Ml Inj 1 Ml SUBCUT 5,000 unit Q12H JAMAR Administration Ferric Sodium Gluconate 125 mg 110 mls @ 110 mls/hr 11/24/24 08:00 11/28/24 10:26 / Sodium Chloride IV Infused Q24H JAMAR Infusion Insulin Glargine 18 unit 11/28/24 21:00 11/28/24 20:52 Insulin Glargine 100 Units/1 Ml SUBCUT 18 unit BEDTIME JAMAR Administration Insulin Human Lispro 0 unit 11/20/24 18:00 11/28/24 20:51 Insulin Lispro 100 Unit/1 Ml SUBCUT 8 unit WM&BEDTIME JAMAR Administration Protocol Insulin Human Lispro 9 unit 11/28/24 11:00 11/29/24 06:31 Insulin Lispro 100 Unit/1 Ml SUBCUT Not Given TIDAC [facility] Lamotrigine 100 mg 11/20/24 21:00 11/28/24 20:53 Lamotrigine 100 Mg Tablet PO 100 mg TID JAMAR Administration Metoprolol Tartrate 25 mg 11/21/24 18:00 11/28/24 17:18 Metoprolol Tartrate 25 Mg Tablet PO 25 mg BID JAMAR Administration Multivitamins 1 each 11/24/24 09:00 11/28/24 08:44 Q-Bhzidbw-Zbxmfej C Tablet PO 1 each DAILY JAMAR Administration Prednisone 40 mg 11/26/24 09:00 11/28/24 08:44 Prednisone 20 Mg Tablet PO 40 mg DAILY JAMAR Administration Risperidone 1 mg 11/21/24 06:00 11/28/24 05:31 Risperidone 1 Mg Tablet PO 1 mg QAM JAMAR Administration Trazodone HCl 100 mg 11/22/24 02:30 11/28/24 20:53 Trazodone 100 Mg Tablet PO 100 mg BEDTIME PRN Administration INSOMNIA Additional Medication Information Current Medications Acetaminophen (Acetaminophen 325 Mg Tablet) 650 mg PO Q6H PRN PRN Reason: Mild/Mod Pain Or Temp >/= 101 Albuterol/Ipratropium (Ipratropium-Albuterol 3 Ml Neb) 3 ml INHALATION Q6H.RESP JAMAR Last Admin: 11/24/24 03:55 Dose: Not Given Allopurinol (Allopurinol 100 Mg Tablet) 200 mg PO DAILY JAMAR Last Admin: 11/23/24 08:52 Dose: 200 mg Atorvastatin Calcium (Atorvastatin 40 Mg Tablet) 40 mg PO BEDTIME JAMAR Last Admin: 11/23/24 20:10 Dose: 40 mg Budesonide (Budesonide 0.5 Mg/2 Ml Neb) 0.5 mg INHALATION BID.RESPIRATORY JAMAR Last Admin: 11/23/24 20:16 Dose: 0.5 mg Bupropion HCl (Bupropion Xl (24 Hr) 150 Mg Tablet) 150 mg PO QAM JAMAR Last Admin: 11/24/24 05:11 Dose: 150 mg Ceftriaxone Sodium (Ceftriaxone 1,000 Mg Sdv) 1,000 mg IVP Q24H JAMAR; Protocol Last Admin: 11/23/24 12:19 Dose: 1,000 mg Clopidogrel Bisulfate (Clopidogrel 75 Mg Tablet) 75 mg PO DAILY JAMAR Last Admin: 11/23/24 08:52 Dose: 75 mg Docusate Sodium (Docusate Sodium 100 Mg Capsule) 100 mg PO BID JAMAR Last Admin: 11/23/24 17:11 Dose: Not Given Glucagon (Glucagon 1 Mg/Ml Kit 1 Ml) 1 mg IM ONCE PRN; Protocol PRN Reason: Adult Acute Hypoglycemia Nursing Prot. Heparin Sodium (Porcine) (Heparin 5,000 Unit/Ml Inj 1 Ml) 5,000 unit SUBCUT Q12H [facility] Last Admin: 11/24/24 03:38 Dose: 5,000 unit Hydralazine HCl (Hydralazine 20 Mg/Ml Inj 1 Ml) 10 mg IVP Q4H PRN PRN Reason: SBP>180mmHg or DBP>110mmHG Dextrose (D10w) 125 mls @ 750 mls/hr IV PRN PRN PRN Reason: HYPOGLYCEMIA Dextrose (D5w) 500 mls @ 0 mls/hr IV ONCE PRN; Protocol PRN Reason: Adult Acute Hypoglycemia Prot Dextrose (D10w) 125 mls @ 750 mls/hr IV PRN PRN; Protocol PRN Reason: Adult Acute Hypoglycemia Nursing Protocol Dextrose (D10w) 250 mls @ 1,000 mls/hr IV PRN PRN; Protocol PRN Reason: Adult Acute Hypoglycemia Nursing Protocol Albumin Human (Albumin) 12.5 gm in 50 mls @ 60 mls/hr IV PRN PRN PRN Reason: Hypotension and/or symptomatic Insulin Glargine (Insulin Glargine 100 Units/1 Ml) 5 unit SUBCUT BEDTIME JAMAR Last Admin: 11/23/24 21:09 Dose: 5 unit Insulin Human Lispro (Insulin Lispro 100 Unit/1 Ml) 0 unit SUBCUT WM&BEDTIME JAMAR; Protocol Last Admin: 11/23/24 21:09 Dose: 10 unit Lactulose (Lactulose Oral Liq 20 Gm/30 Ml Udc) 10 gm PO DAILY PRN; Protocol PRN Reason: Constipation (see protocol) Lamotrigine (Lamotrigine 100 Mg Tablet) 100 mg PO TID [facility] Last Admin: 11/23/24 20:10 Dose: 100 mg Magnesium Hydroxide (Magnesium Hydroxide 30 Ml Udc) 30 ml PO DAILY PRN; Protocol PRN Reason: Constipation (see protocol) Methylprednisolone Sodium Succinate (Methylprednisolone Sod Succ 40 Mg/Ml Inj) 40 mg IVP Q12H [facility] Last Admin: 11/24/24 00:45 Dose: 40 mg Metoprolol Tartrate (Metoprolol Tartrate 25 Mg Tablet) 25 mg PO BID [facility] Last Admin: 11/23/24 17:11 Dose: Not Given Multivitamins (Z-Kxqvcsh-Luvkred C Tablet) 1 each PO DAILY JAMAR Ondansetron HCl (Ondansetron 2 Mg/Ml Sdv 2 Ml) 4 mg IVP Q6H PRN PRN Reason: vomiting, or N/V if npo Risperidone (Risperidone 1 Mg Tablet) 1 mg PO QAM JAMAR Last Admin: 11/24/24 05:11 Dose: 1 mg Trazodone HCl (Trazodone 100 Mg Tablet) 100 mg PO BEDTIME PRN PRN Reason: INSOMNIA Last Admin: 11/22/24 03:11 Dose: 100 mg PFSH Anesthesia Medical History (Updated 11/20/24 @ 16:28 by Patel Jones MD) LEROY on CPAP Chronic anemia Pacemaker Acute pancreatitis Sinus pause DELORIS (acute kidney injury) Altered mental status Paranoid Expressive aphasia Anxiety and depression Lives in assisted living facility Rotator cuff tear, right Diabetes mellitus insulin dependent Essential (primary) hypertension Depression due to cerebrovascular accident (CVA) Expressive aphasia Hypomagnesemia Bilateral pneumonia Hyponatremia Hyperkalemia Right humeral fracture Metabolic encephalopathy Resolved Acute delirium Resolved Pneumonia due to COVID-19 virus Resolved Poor social situation Multinodular thyroid Acute embolic stroke Recurrent falls Resolved History of CVA (cerebrovascular accident) Acute hypersomnolence disorder Essential hypertension Wernicke dysphasia Diabetes mellitus with neuropathy Mixed hyperlipidemia Surgical History History of nasal sinusotomy History of cholecystectomy History of tonsillectomy History of repair of rotator cuff History of hysterectomy for indication other than malignancy History of bursectomy Hx of adenoidectomy Status post anal fissurectomy History of colonoscopy Family History Mother CAD (coronary artery disease) Other Asthma Cancer Diabetes Heart disease Hypertension Stroke Social History Smoking and tobacco/nicotine status: former use of tobacco/nicotine Alcohol intake: current Alcohol intake frequency: few times a month Substance/Drug Use: never Data Anesthesia 11/29/24 07:19 11/29/24 07:19 Short CBC 11/29/24 Range/Units 07:19 WBC 12.30 H (3.29-11.43) 10^3/uL Hgb 8.00 L (11.27-16.99) g/dL Hct 26.8 L (36-47) % MCV 84.3 L (85-98) fl Plt Count 230 (157-399) 10^3/cmm Neut % (Auto) 78.2 % Neut # (Auto) 9.62 H (1.8-7.7) 10^3/uL BMP 11/28/24 11/29/24 02:36 07:19 Sodium 138 138 Potassium 4.7 4.3 Chloride 101 102 Carbon Dioxide 27 27 BUN 82 H* 65 H Creatinine 2.1 H 2.0 H Glucose 186 H 121 H Calcium 8.4 L 8.4 L Liver Function 11/28/24 11/29/24 Range/Units 02:36 07:19 Albumin 3.1 L 3.1 L (3.5-5.2) g/dL Cardiac Studies: Echocardiogram 11/23/24 Echocardiogram Limited Views 07/29/24 Echocardiogram Ultrasound 07/09/20 Cardiac Event Monitor 07/10/20
[2024-11-29] MEDS: BUPivacaine 0.25% INJ 10 mL INJECTION (08:47)
[2024-11-29] MEDS: heparin, porcine 1,000 unit/mL INJ 10 mL 10000 UNIT IRRIGATION (08:48)
[2024-11-29] MEDS: lidocaine-epi 1% 20 mL INJ INJECTION (08:48)
--- NOTE | 2024-11-29 08:49 | PC.SLP ---
GLOVE TAGGER treatment attempted; patient in surgery
--- NOTE | 2024-11-29 09:03 | SC_ITS ---
WS: [id number] C-ARM RADIOGRAPHS CHEST; 2 IMAGES HISTORY: OR PICS COMPARISON: None available. Intraoperative imaging during dialysis catheter placement. Catheter appears to enter the RIGHT subclavian vein with tips overlying the aortocaval location. SC/C-arm [place] for CVA [id number] IMPRESSION: Intraoperative imaging during dialysis catheter placement.
--- NOTE | 2024-11-29 09:14 | P.PN_ITS ---
Subjective 2 Subjective: Patient reports she did not sleep well overnight. Reports lower extremity edema is about the same as yesterday. Denies fevers or chills. She is going for tunneled line placement this morning. Will plan for therapy afterwards. Medications: Reviewed: Yes Medication Review Details: Current Medications Acetaminophen (Acetaminophen 325 Mg Tablet) 650 mg PO Q6H PRN PRN Reason: Mild/Mod Pain Or Temp >/= 101 Albuterol/Ipratropium (Ipratropium-Albuterol 3 Ml Neb) 3 ml INHALATION Q6H.RESP JAMAR Last Admin: 11/24/24 03:55 Dose: Not Given Allopurinol (Allopurinol 100 Mg Tablet) 200 mg PO DAILY JAMAR Last Admin: 11/23/24 08:52 Dose: 200 mg Atorvastatin Calcium (Atorvastatin 40 Mg Tablet) 40 mg PO BEDTIME JAMAR Last Admin: 11/23/24 20:10 Dose: 40 mg Budesonide (Budesonide 0.5 Mg/2 Ml Neb) 0.5 mg INHALATION BID.RESPIRATORY JAMAR Last Admin: 11/23/24 20:16 Dose: 0.5 mg Bupropion HCl (Bupropion Xl (24 Hr) 150 Mg Tablet) 150 mg PO QAM JAMAR Last Admin: 11/24/24 05:11 Dose: 150 mg Ceftriaxone Sodium (Ceftriaxone 1,000 Mg Sdv) 1,000 mg IVP Q24H JAMAR; Protocol Last Admin: 11/23/24 12:19 Dose: 1,000 mg Clopidogrel Bisulfate (Clopidogrel 75 Mg Tablet) 75 mg PO DAILY JAMAR Last Admin: 11/23/24 08:52 Dose: 75 mg Docusate Sodium (Docusate Sodium 100 Mg Capsule) 100 mg PO BID JAMAR Last Admin: 11/23/24 17:11 Dose: Not Given Glucagon (Glucagon 1 Mg/Ml Kit 1 Ml) 1 mg IM ONCE PRN; Protocol PRN Reason: Adult Acute Hypoglycemia Nursing Prot. Heparin Sodium (Porcine) (Heparin 5,000 Unit/Ml Inj 1 Ml) 5,000 unit SUBCUT Q12H JAMAR Last Admin: 11/24/24 03:38 Dose: 5,000 unit Hydralazine HCl (Hydralazine 20 Mg/Ml Inj 1 Ml) 10 mg IVP Q4H PRN PRN Reason: SBP>180mmHg or DBP>110mmHG Dextrose (D10w) 125 mls @ 750 mls/hr IV PRN PRN PRN Reason: HYPOGLYCEMIA Dextrose (D5w) 500 mls @ 0 mls/hr IV ONCE PRN; Protocol PRN Reason: Adult Acute Hypoglycemia Prot Dextrose (D10w) 125 mls @ 750 mls/hr IV PRN PRN; Protocol PRN Reason: Adult Acute Hypoglycemia Nursing Protocol Dextrose (D10w) 250 mls @ 1,000 mls/hr IV PRN PRN; Protocol PRN Reason: Adult Acute Hypoglycemia Nursing Protocol Albumin Human (Albumin) 12.5 gm in 50 mls @ 60 mls/hr IV PRN PRN PRN Reason: Hypotension and/or symptomatic Insulin Glargine (Insulin Glargine 100 Units/1 Ml) 5 unit SUBCUT BEDTIME JAMAR Last Admin: 11/23/24 21:09 Dose: 5 unit Insulin Human Lispro (Insulin Lispro 100 Unit/1 Ml) 0 unit SUBCUT WM&BEDTIME JAMAR; Protocol Last Admin: 11/23/24 21:09 Dose: 10 unit Lactulose (Lactulose Oral Liq 20 Gm/30 Ml Udc) 10 gm PO DAILY PRN; Protocol PRN Reason: Constipation (see protocol) Lamotrigine (Lamotrigine 100 Mg Tablet) 100 mg PO TID JAMAR Last Admin: 11/23/24 20:10 Dose: 100 mg Magnesium Hydroxide (Magnesium Hydroxide 30 Ml Udc) 30 ml PO DAILY PRN; Protocol PRN Reason: Constipation (see protocol) Methylprednisolone Sodium Succinate (Methylprednisolone Sod Succ 40 Mg/Ml Inj) 40 mg IVP Q12H JAMAR Last Admin: 11/24/24 00:45 Dose: 40 mg Metoprolol Tartrate (Metoprolol Tartrate 25 Mg Tablet) 25 mg PO BID JAMAR Last Admin: 11/23/24 17:11 Dose: Not Given Multivitamins (P-Glgjkas-Resdujz C Tablet) 1 each PO DAILY JAMAR Ondansetron HCl (Ondansetron 2 Mg/Ml Sdv 2 Ml) 4 mg IVP Q6H PRN PRN Reason: vomiting, or N/V if npo Risperidone (Risperidone 1 Mg Tablet) 1 mg PO QAM JAMAR Last Admin: 11/24/24 05:11 Dose: 1 mg Trazodone HCl (Trazodone 100 Mg Tablet) 100 mg PO BEDTIME PRN PRN Reason: INSOMNIA Last Admin: 11/22/24 03:11 Dose: 100 mg Vitals/I&O/Wt Last Vital Signs Temp 97.8 F 11/29/24 07:38 Pulse 61 11/29/24 07:38 Resp 18 11/29/24 07:38 BP 137/69 11/29/24 07:38 Pulse Ox 93 11/29/24 07:38 O2 Del Method Room Air 11/29/24 07:38 O2 Flow Rate 6 11/29/24 09:09 FiO2 25 11/28/24 21:29 11/28/24 11/29/24 11/29/24 22:59 06:59 14:59 Intake Total 0 / 0 Output Total 1300 / 4800 300 / 5100 5 / 5 Balance -1300 / -4190 -300 / -4490 -5 / -5 Weight last 48 hrs Weight 125.01 kg Weight 122.6 kg Weight 125.645 kg Physical Exam 2 Narrative: General: Patient is awake. Head: Normocephalic. Atraumatic. Neck: No JVD. Cardiovascular: RRR. No gallops. No murmurs. 2+ pitting edema bilateral lower extremities. Lungs: Breath sounds are diminished, no use of accessory muscles, no crackles or wheezes. Skin: No jaundice. No rashes. Abdomen: Normal bowel sounds, abdomen soft and nontender. Extremities: No cyanosis or clubbing. Musculoskeletal: No swollen or erythematous joints. Neurological: Moves all 4 extremities. No myoclonus. Urinary Catheter Management: [place]: Cath Placed During This Visit: yes Reason for Continuing Indwelling Catheter: Accurate Measurement of Urinary Output in Critically Ill Patients Urinary Catheter Date of Insertion: 11/20/24 Data 11/29/24 07:19 11/29/24 07:19 A&P Assessment and plan (1) Shortness of breath: (2) Acute metabolic encephalopathy: (3) Acute kidney injury superimposed on CKD: (4) Chronic anemia: (5) COPD (chronic obstructive pulmonary disease): Qualifiers: COPD type: unspecified COPD Qualified Code(s): J44.9 - Chronic obstructive pulmonary disease, unspecified (6) Diastolic heart failure: Qualifiers: Heart failure chronicity: unspecified Qualified Code(s): I50.30 - Unspecified diastolic (congestive) heart failure (7) Bilateral leg edema: (8) LEROY on CPAP: (9) Essential hypertension: (10) Insulin dependent type 2 diabetes mellitus: (11) Hyperkalemia: (12) UTI (urinary tract infection): (13) History of CVA (cerebrovascular accident): (14) Expressive aphasia: (15) Mental and behavioral problems with communication (including speech): Plan Acute kidney injury on CKD - Nephrology following appreciate recommendations - Continue strict I's and O's - Daily assessment of volume and renal function - Plan is for long-term dialysis - HD line to be placed this morning and temp line removed Acute COPD exacerbation - Continue Pulmicort - Continue prednisone - Breathing treatments as needed Type 2 diabetes mellitus, uncontrolled with hyperglycemia - Continue Lantus - Adjust insulin as needed - Sliding scale insulin correction Acute on chronic diastolic heart failure with preserved ejection fraction - Continue fluid restriction - Volume control via dialysis - Strict I's and O's - Daily weights Acute on chronic anemia - Monitor blood counts, transfuse if needed - Continue PPI Hypertension - Continue metoprolol Debility and physical deconditioning - PT/OT Chronic word salad - At baseline Acute complicated Proteus Mirabella's UTI, resolved DVT prophylaxis: Heparin CODE STATUS: Full code PDMP PDMP Reviewed: Not Reviewed Attestations 2 Medical Necessity Statement*: Patient requires ongoing hospitalization for volume support via dialysis, tunnel line placement, therapy, nephrology expertise, and supportive care. Coding Level of Care Code Acute Code for Chg Fwd Diagnoses Shortness of breath R06.02 Acute metabolic encephalopathy G93.41 Acute kidney injury superimposed on CKD N17.9; N18.9 Chronic anemia D64.9 Chronic obstructive pulmonary disease, unspecified COPD type J44.9 COPD type: unspecified COPD Diastolic heart failure, unspecified HF chronicity I50.30 Heart failure chronicity: unspecified Bilateral leg edema R60.0 LEROY on CPAP G47.33; Z99.89 Essential hypertension I10 Insulin dependent type 2 diabetes mellitus E11.9; Z79.4 Hyperkalemia E87.5 UTI (urinary tract infection) N39.0 History of CVA (cerebrovascular accident) Z86.73 Expressive aphasia R47.01 Mental and behavioral problems with communication (including speech) F80.9
--- NOTE | 2024-11-29 09:19 | P.OP_ITS ---
Operative Report Date of procedure: November 29, 2024 Pre-op diagnosis: Renal failure Post-op diagnosis: same Post-op findings: Tunneled dialysis catheter placed in right chest. Access right internal jugular vein using ultrasound guidance. Confirmed that the tip of the catheter is at the atriocaval junction using intraoperative fluoroscopy interpretation. Procedure done: Tunneled dialysis catheter placement with intraoperative fluoroscopy interpretation Implants: 20 cm tunneled dialysis catheter dual-lumen Specimens removed/disposition: N/A Pathology: none sent Surgeon: Davide Wolf MD Furnace Worker: N/A Anesthesia: MAC Estimated blood loss (mL): 30 Complications: N/A Findings: Tunneled dialysis catheter placed accessing the right internal jugular vein. Tip of the catheter at atriocaval junction confirmed with intraoperative fluoroscopy. Able to draw and flush easily through both lumens. Condition: stable Disposition: floor Brief History: 64-year-old female who presented with renal failure. Placed a temporary dialysis catheter in the right groin on the floor last week. Nephrology a nticipating needing dialysis for months. Discussed risk and benefits with guardian and guardian and patient agreed to proceed with tunneled dialysis catheter placement. Procedure: Patient was brought into the operating room and a timeout was carried out. Procedure was done under MAC. Patient was placed supine with the arms tucked and in Trendelenburg. Patient was prepped and draped in the usual sterile fashion. Using ultrasound guidance the right internal jugular vein was accessed. A guidewire was then placed down to the atriocaval junction using fluoroscopy. The finder needle was removed and the guidewire was secured. I then turned my attention to creating a pocket over the right chest. Make sure to locally infiltrated using plain lidocaine and bupivacaine at the site of the pocket and throughout the tunnel site. I confirmed adequate hemostasis at the pocket. I then proceeded to place the tunneled dialysis catheter 20cm dual lumen that was already flushed with heparinized saline in the chest pocket. I tunneled the catheter from the chest to the neck at the site where I accessed the internal jugular vein. I measured and made sure that the length of the catheter would reach the atrial caval junction. At this point, I used serial dilators to dilate the tract into the internal jugular vein using fluoroscopy. I removed the guidewire and proceeded to thread the tunneled dialysis catheter through the introducer. In the process, I removed the sheath as a completely pushed the catheter into the internal jugular vein. I then confirmed adequate placement of the catheter by performing intraoperative interpretation of fluoroscopy. The tip of the catheter was confirmed to be placed in the atriocaval junction. There were no kinks noted throughout the trajectory of the catheter. I then proceeded to test the dialysis catheter (both lumens) and was satisfied with its functionality. I proceeded to flushed the catheter without any issues. I then hep-locked the catheter. Skin was closed using deep dermal 3-0 Vicryl, subcuticular 4-0 Monocryl, and Dermabond. I then removed the temporary dialysis catheter in the right groin and held pressure for 5 minutes. Patient was then transferred to PACU without any complications.
--- NOTE | 2024-11-29 09:30 | PC.NURSE ---
Patient returned to [facility] from surgery at 0930.
--- NOTE | 2024-11-29 10:09 | P.PN_ITS ---
Subjective 2 Subjective: getting tunnelled catheter Medications: Reviewed: Yes Vitals/I&O/Wt Last Vital Signs Temp 97.6 F 11/30/24 07:11 Pulse 60 11/30/24 07:59 Resp 14 11/30/24 07:59 BP 144/56 11/30/24 07:11 Pulse Ox 97 11/30/24 07:59 O2 Del Method Nasal Cannula 11/30/24 07:59 O2 Flow Rate 2 11/30/24 07:59 FiO2 25 11/28/24 21:29 11/29/24 11/30/24 11/30/24 22:59 06:59 14:59 Intake Total 340 / 510 0 / 510 360 / 360 Output Total 1025 / 1030 400 / 1430 Balance -685 / -520 -400 / -920 360 / 360 Weight last 48 hrs Weight 124.012 kg Weight 125.01 kg Weight 122.6 kg Physical Exam 2 Narrative: Obese lady lying in bed using nasal cannula oxygen. Vital signs are noted. HEENT normocephalic atraumatic. 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 Lungs- dec b/l basilar dullness and crackles Heart paced rhythm positive S1-S2. Abdomen is soft positive bowel sounds. Extremities 2 + edema with skin blistering and tenderness. Right femoral catheter for dialysis Neuro exam: She is awake and alert responsive knows she is in the hospital but not talking to the point and is sometimes I am not clear what she is talking about. She is weak but moves all extremities Urinary Catheter Management: Kent: Cath Placed During This Visit: yes Reason for Continuing Indwelling Catheter: Acute Urinary Retention or Obstruction Urinary Catheter Date of Insertion: 11/20/24 Data 11/29/24 07:19 11/30/24 04:42 A&P Assessment and plan (1) Acute kidney injury superimposed on CKD: Plan 64-year-old lady morbid obesity, hypertension, diabetes, sleep apnea on CPAP, history of CVA, mitral valve disease. The patient has known CKD stage IV patient presents now with altered mental status and acute kidney injury with severe volume overload. The patient was diuresed and unfortunately her creatinine has bumped and she still feels short of breath and swollen. 1. Chronic kidney disease: :Progressive renal insufficiency likely combination of diabetes hypertension obesity related FSGS, and effects of previous DELORIS. Patient now with DELORIS which can be cardiorenal syndrome versus progression of underlying CKD versus effects of medications. Renal ultrasound did not show hydronephrosis that showed a right kidney of 9.6 cm on left of 11 cm. ABG showed mixed metabolic and respiratory acidosis with a pH of 7.26 pCO2 of 45 bicarbonate of 20. However this is much improved from her pCO2 of 68 in August 2024. As patient has severe volume overload we initiated dialysis on 11/23/24 -HD done friday --s/p tunnelled catheter placement , HD today -Urine studies reviewed she had 2+ protein 3+ blood 2+ leuk esterase, still 21- 50 white cells and squamous epithelial cells. Of note she has calcium oxalate crystals of 10-15. She also has hyaline casts Will also send an SPEP again as patient has significant anemia. 2. Anemia send iron studies B12 folate SPEP serum immunofixation and free light chain. -She received Epogen yesterday Iron saturation of 23% ferritin 128 will give IV iron. Monitor hemoglobin May need blood transfusion. 3. Diabetic control. lower sterodis as tolerated 4. MBD : Phosphorus of 5 can monitor. Await PTH -Severe vitamin D deficiency will replace 5. CHF : Echocardiogram reviewed EF of 64% with grade 3 out of 4 diastolic dysfunction with restrictive filling pattern severely elevated. Question if this could be cardiac amyloid. With severely elevated filling pressures we will continue diuresis. The patient was seen and examined with the aid of a nurse using audiovisual equipment. The patient consented to telehealth and to dialysis. PDMP PDMP Reviewed: Not Reviewed Attestations 2 Medical Necessity Statement*: per [facility] Coding Level of Care Code Acute Code for Chg Fwd Diagnoses Acute kidney injury superimposed on CKD N17.9; N18.9
--- NOTE | 2024-11-29 10:56 | PC.CHAP ---
Pastoral Care Encounter/Spiritual Assessment Type of Contact [] Declined art teacher visit [] Patient/Family/Request visit [] Outpatient visit [] Follow-up visit [] Physician referral [] Code/Alert [x] Routine visit [] Staff referral [] Actively dying [] Patient sleeping [] Family support [] [] Out of room [] Palliative care [] [] Receiving care in room [] Pre-surgical visit [] Trauma [] Long length of stay [] ICU visit [] Other: Relational/Emotional Strength [] Patient feels connected with others/family/visitors/staff [] Distress [] Loneliness/isolation [] Abandonment Spirituality of Patient [x] Person of Oanh [] Attends Rastafarian of their Oanh [x] Believes in Prayer [] Reads Bible or Sikh materials [] There are Spiritual issues to be addressed [employer] Interventions [x] Prayer [x] Active listening [] Non-anxious presence [] Spiritual/emotional support [] Crisis/trauma care [] Spiritual counseling [] Bereavement support [] Provided bereavement packet [x] Provided Bible/devotional materials [] Provided toy/stuffed animal, coloring book to patient or family member [] Provided Communion [] Anointing/[place] [] Salvation [x] Completed spiritual assessment [] Other: Impact on Illness or Injury [] Angry [] Fearful [] Anxious [] Often cries [] Exhaustion [] Unable to work [] Unable to attend restoration [] Unable to walk/stand [] Unable to read [] Unable to drive [] Unable to eat/drink [] Unable to sleep [] Unable to be with family [] Patient intubated [] Other: Summary Time spent with patient 5 min
[2024-11-29] MEDS: insulin lispro 100 unit/1 mL 9 UNIT SUBCUT ×2 (11:12→16:43)
[2024-11-29 11:55] LABS: Glucose Point of Care 144 mg/dL (70-110)
[2024-11-29 11:55] LABS: Glucose Point of Care 153 mg/dL (70-110)
[2024-11-29] MEDS: insulin lispro 100 unit/1 mL SUBCUT ×2 (12:07→21:04)
--- NOTE | 2024-11-29 13:16 | ANE.PACU2 ---
Inpatient post-anesthesia follow up: Vital signs: Temperature 97 F Pulse Rate 60 Respiratory Rate 20 Blood Pressure 147/58 Pulse Oximetry 93 Oxygen Delivery Me thod Nasal Cannula Oxygen Flow Rate 1 Fraction of Inspir ed Oxygen 25 Hydration adequate: Yes Nausea and vomiting: No Pain level: 2 Mental status: Baseline
--- NOTE | 2024-11-29 14:14 | PC.SLP ---
ASSEMBLER FLEXIBLE LEADS treatment attempted; not able to rouse patient
--- NOTE | 2024-11-29 14:26 | PC.OT ---
OT TREATMENT HELD TODAY DUE TO DIALYSIS CATHETER PLACEMENT.
[2024-11-29] MEDS: lamoTRIgine 100 mg Tablet PO ×2 (15:07→21:04)
[2024-11-29] MEDS: cefTRIAXone 1,000 mg SDV 1000 MG IVP (15:07)
[2024-11-29] MEDS: HYDROcodone-acetaminophen 5-325 mg Tablet 1 TAB PO (16:43)
[2024-11-29] MEDS: docusate sodium 100 mg Capsule PO (16:44)
[2024-11-29] MEDS: metoprolol tartrate 25 mg Tablet PO (16:44)
[2024-11-29 17:55] LABS: Glucose Point of Care 136 mg/dL (70-110)
[2024-11-29] MEDS: budesonide 0.5 mg/2 mL Neb INHALATION (19:54)
[2024-11-29 20:25] LABS: Glucose Point of Care 211 mg/dL (70-110)
[2024-11-29] MEDS: atorvastatin 40 mg Tablet PO (21:04)
[2024-11-29] MEDS: trazodone 100 mg Tablet PO (21:04)
[2024-11-29] MEDS: insulin glargine 100 units/1 mL 18 UNIT SUBCUT (21:05)
[2024-11-30] VITALS (13 sets, daily range): BP systolic 130–168; BP diastolic 51–59; PULSE 60–75; RESP 14–24; TEMP 36.4–37.1; O2SAT 96–99
[2024-11-30] MEDS: HYDROcodone-acetaminophen 5-325 mg Tablet 1 TAB PO ×3 (00:07→21:24)
[2024-11-30] MEDS: ipratropium-albuterol 3 mL Neb INHALATION ×4 (02:21→20:02)
[2024-11-30] MEDS: heparin 5,000 unit/mL INJ 1 mL 5000 UNIT SUBCUT ×2 (03:13→17:54)
[2024-11-30 05:26] LABS: Glucose Point of Care 123 mg/dL (70-110)
[2024-11-30] MEDS: bumetanide 0.25 mg/mL SDV 4 mL 1 MG IVP ×2 (05:31→17:55)
[2024-11-30] MEDS: buPROPion XL (24 HR) 150 mg Tablet PO (05:31)
[2024-11-30] MEDS: risperiDONE 1 mg Tablet PO (05:31)
[2024-11-30 05:48] LABS: Albumin Level 2.9 g/dL (3.5-5.2); Anion Gap 14.4 (5-19); Blood Urea Nitrogen 68 mg/dL (8-23); Calcium 8.3 mg/dL (8.5-10.5); Carbon Dioxide 29 mmol/L (22-29); Chloride 102 mmol/L (98-107); Creatinine Clr Calc Pharmacy 33.6152; Glomerular Filtration Rate 22.5 mL/min (90-130); Glucose 118 mg/dL (65-115); Phosphorus 4.6 mg/dL (2.5-4.5); Potassium 4.4 mmol/L (3.5-5.1); Sodium 141 mmol/L (136-145)
[2024-11-30] MEDS: budesonide 0.5 mg/2 mL Neb INHALATION ×2 (07:57→20:02)
[2024-11-30] MEDS: ferric gluconate 125 MG in sodium chloride 0.9% (100 ml) 100 ML 110 MG IV (08:53)
--- NOTE | 2024-11-30 09:18 | PC.NURSE ---
Patient left CSU to dialysis at 0900.
--- NOTE | 2024-11-30 10:10 | P.PN_ITS ---
Subjective 2 Subjective: getting hD Medications: Reviewed: Yes Vitals/I&O/Wt Last Vital Signs Temp 97.6 F 11/30/24 07:11 Pulse 60 11/30/24 07:59 Resp 14 11/30/24 07:59 BP 144/56 11/30/24 07:11 Pulse Ox 97 11/30/24 07:59 O2 Del Method Nasal Cannula 11/30/24 07:59 O2 Flow Rate 2 11/30/24 07:59 FiO2 11/28/24 21:29 11/29/24 11/30/24 11/30/24 22:59 06:59 14:59 Intake Total 340 / 510 0 / 510 360 / 360 Output Total 1025 / 1030 400 / 1430 Balance -685 / -520 -400 / -920 360 / 360 Weight last 48 hrs Weight 124.012 kg Weight 125.01 kg Weight 122.6 kg Physical Exam 2 Narrative: Obese lady lying in bed using nasal cannula oxygen. Vital signs are noted. HEENT normocephalic atraumatic. 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 Lungs- dec b/l basilar dullness and crackles Heart paced rhythm positive S1-S2. Abdomen is soft positive bowel sounds. Extremities 2 + edema with skin blistering and tenderness. Right femoral catheter for dialysis Neuro exam: She is awake and alert responsive knows she is in the hospital but not talking to the point and is sometimes I am not clear what she is talking about. She is weak but moves all extremities Urinary Catheter Management: Kent: Cath Placed During This Visit: yes Reason for Continuing Indwelling Catheter: Acute Urinary Retention or Obstruction Urinary Catheter Date of Insertion: 11/20/24 Data 11/29/24 07:19 11/30/24 04:42 A&P Assessment and plan (1) Acute kidney injury superimposed on CKD: Plan 64-year-old lady morbid obesity, hypertension, diabetes, sleep apnea on CPAP, history of CVA, mitral valve disease. The patient has known CKD stage IV patient presents now with altered mental status and acute kidney injury with severe volume overload. The patient was diuresed and unfortunately her creatinine has bumped and she still feels short of breath and swollen. 1. Chronic kidney disease: :Progressive renal insufficiency likely combination of diabetes hypertension obesity related FSGS, and effects of previous DELORIS. Patient now with DELORIS which can be cardiorenal syndrome versus progression of underlying CKD versus effects of medications. Renal ultrasound did not show hydronephrosis that showed a right kidney of 9.6 cm on left of 11 cm. ABG showed mixed metabolic and respiratory acidosis with a pH of 7.26 pCO2 of 45 bicarbonate of 20. However this is much improved from her pCO2 of 68 in August 2024. As patient has severe volume overload we initiated dialysis on 11/23/24 -HD done friday --s/p tunnelled catheter placement , HD today -Urine studies reviewed she had 2+ protein 3+ blood 2+ leuk esterase, still 21- 50 white cells and squamous epithelial cells. Of note she has calcium oxalate crystals of 10-15. She also has hyaline casts Will also send an SPEP again as patient has significant anemia. 2. Anemia send iron studies B12 folate SPEP serum immunofixation and free light chain. -She received Epogen yesterday Iron saturation of 23% ferritin 128 will give IV iron. 3. Diabetic control. lower sterodis as tolerated 4. MBD : Phosphorus of 5 can monitor. Await PTH -Severe vitamin D deficiency will replace 5. CHF : Echocardiogram reviewed EF of 64% with grade 3 out of 4 diastolic dysfunction with restrictive filling pattern severely elevated. Question if this could be cardiac amyloid. With severely elevated filling pressures we will continue diuresis. The patient was seen and examined with the aid of a nurse using audiovisual equipment. The patient consented to telehealth and to dialysis. PDMP PDMP Reviewed: Not Reviewed Attestations 2 Medical Necessity Statement*: per [facility] Coding Level of Care Code Acute Code for Chg Fwd Diagnoses Acute kidney injury superimposed on CKD N17.9; N18.9
--- NOTE | 2024-11-30 10:37 | P.PN_ITS ---
Subjective 2 Subjective: Tunneled dialysis catheter functional Vitals/I&O/Wt Last Vital Signs Temp 97.6 F 11/30/24 07:11 Pulse 60 11/30/24 07:59 Resp 14 11/30/24 07:59 BP 144/56 11/30/24 07:11 Pulse Ox 97 11/30/24 07:59 O2 Del Method Nasal Cannula 11/30/24 07:59 O2 Flow Rate 2 11/30/24 07:59 FiO2 25 11/28/24 21:29 11/29/24 11/30/24 11/30/24 22:59 06:59 14:59 Intake Total 340 / 510 0 / 510 360 / 360 Output Total 1025 / 1030 400 / 1430 Balance -685 / -520 -400 / -920 360 / 360 Weight last 48 hrs Weight 273 lb 6.4 oz Weight 275 lb 9.6 oz Weight 270 lb 4.587 oz Physical Exam 2 Narrative: Chest: Unlabored breathing room air. No lymphadenopathy. Heart: Regular rate and rhythm. Abdomen: Soft, nontender, nondistended. No masses or lymphadenopathy. Urinary Catheter Management: Kent: Cath Placed During This Visit: yes Reason for Continuing Indwelling Catheter: Acute Urinary Retention or Obstruction Urinary Catheter Date of Insertion: 11/20/24 Data 12/01/24 05:04 12/01/24 05:04 A&P Assessment and plan (1) Acute kidney injury superimposed on CKD: Plan 64-year-old female who presents with renal failure. Tunneled dialysis catheter working. Rest of care per medicine. PDMP PDMP Reviewed: Not Reviewed Attestations 2 Medical Necessity Statement*: N/A Coding Level of Care Code 56943 Diagnoses Acute kidney injury superimposed on CKD N17.9; N18.9
[2024-11-30] MEDS: metoprolol tartrate 25 mg Tablet PO ×2 (12:46→21:23)
[2024-11-30] MEDS: clopidogrel 75 mg Tablet PO (12:46)
[2024-11-30] MEDS: b-complex-vitamin c Tablet 1 EACH PO (12:47)
[2024-11-30] MEDS: allopurinol 100 mg Tablet 200 MG PO (12:47)
[2024-11-30] MEDS: lamoTRIgine 100 mg Tablet PO ×3 (12:47→21:23)
[2024-11-30] MEDS: predniSONE 20 mg Tablet 40 MG PO (12:47)
[2024-11-30] MEDS: docusate sodium 100 mg Capsule PO ×2 (12:47→21:23)
[2024-11-30 12:51] LABS: Glucose Point of Care 154 mg/dL (70-110)
--- NOTE | 2024-11-30 12:57 | PC.NURSE ---
Patient returned to CSU from dialysis at 1245. 3.5 L removed.
[2024-11-30] MEDS: insulin lispro 100 unit/1 mL SUBCUT ×3 (13:08→21:25)
[2024-11-30] MEDS: insulin lispro 100 unit/1 mL 9 UNIT SUBCUT ×2 (13:09→17:54)
--- NOTE | 2024-11-30 13:20 | PC.NURSE ---
Heparin was given by dialysis nurse, MILA Samuels.
--- NOTE | 2024-11-30 13:31 | PC.HD ---
New tunnelled cath, inserted yesterday, worked well. Note: cath site has skin glue but had no dressing on arrival to dialysis room. Site cleaned well with CHG and dressed with Skin Prep, TORIN, and Covaderm. Heparin 2500 units given with HD. Post HD cath dwell with Heparin 2100 units to red port and 2200 units to blue port.
[2024-11-30] MEDS: cefTRIAXone 1,000 mg SDV 1000 MG IVP (13:53)
--- NOTE | 2024-11-30 14:21 | P.PN_ITS ---
Subjective 2 Subjective: Doing well, denies any complaints. Medications: Reviewed: Yes Vitals/I&O/Wt Last Vital Signs Temp 97.7 F 11/30/24 13:21 Pulse 60 11/30/24 14:08 Resp 20 H 11/30/24 14:08 BP 152/59 11/30/24 13:21 Pulse Ox 98 11/30/24 14:08 O2 Del Method Nasal Cannula 11/30/24 14:08 O2 Flow Rate 2 11/30/24 14:08 FiO2 25 11/28/24 21:29 11/29/24 11/30/24 11/30/24 22:59 06:59 14:59 Intake Total 340 / 510 0 / 510 1090 / 1090 Output Total 1025 / 1030 400 / 1430 4503 / 4503 Balance -685 / -520 -400 / -920 -3413 / -3413 Weight last 48 hrs Weight 125.1 kg Weight 124.012 kg Weight 125.01 kg Physical Exam 2 Narrative: General: Patient is awake. Head: Normocephalic. Atraumatic. Neck: No JVD. Cardiovascular: RRR. No gallops. No murmurs. 2+ pitting edema bilateral lower extremities. Lungs: Breath sounds are diminished, no use of accessory muscles, no crackles or wheezes. Skin: No jaundice. No rashes. Abdomen: Normal bowel sounds, abdomen soft and nontender. Extremities: No cyanosis or clubbing. Musculoskeletal: No swollen or erythematous joints. Neurological: Moves all 4 extremities. No myoclonus. Urinary Catheter Management: Kent: Cath Placed During This Visit: yes Reason for Continuing Indwelling Catheter: Acute Urinary Retention or Obstruction Urinary Catheter Date of Insertion: 11/20/24 Data 11/29/24 07:19 11/30/24 04:42 A&P Assessment and plan (1) Shortness of breath: (2) Acute metabolic encephalopathy: (3) Acute kidney injury superimposed on CKD: (4) Chronic anemia: (5) COPD (chronic obstructive pulmonary disease): Qualifiers: COPD type: unspecified COPD Qualified Code(s): J44.9 - Chronic obstructive pulmonary disease, unspecified (6) Diastolic heart failure: Qualifiers: Heart failure chronicity: unspecified Qualified Code(s): I50.30 - Unspecified diastolic (congestive) heart failure (7) Bilateral leg edema: (8) LEROY on CPAP: (9) Essential hypertension: (10) Insulin dependent type 2 diabetes mellitus: (11) Hyperkalemia: (12) UTI (urinary tract infection): (13) History of CVA (cerebrovascular accident): (14) Expressive aphasia: (15) Mental and behavioral problems with communication (including speech): Plan Acute kidney injury on CKD - Nephrology following appreciate recommendations - Continue strict I's and O's - Daily assessment of volume and renal function - Plan is for long-term dialysis - HD line to be placed this morning and temp line removed Acute COPD exacerbation - Continue Pulmicort - Continue prednisone - Breathing treatments as needed Type 2 diabetes mellitus, uncontrolled with hyperglycemia - Continue Lantus - Adjust insulin as needed - Sliding scale insulin correction Acute on chronic diastolic heart failure with preserved ejection fraction - Continue fluid restriction - Volume control via dialysis - Strict I's and O's - Daily weights Acute on chronic anemia - Monitor blood counts, transfuse if needed - Continue PPI Hypertension - Continue metoprolol Debility and physical deconditioning - PT/OT Acute complicated Proteus Mirabilis UTI, resolved DVT prophylaxis: Heparin CODE STATUS: Full code 11/30/24 S/p tunnel HD catheter placement. Plan for long-term dialysis Nephrology recommendations appreciated Follow-up case management for discharge planning Continue IV ceftriaxone 1 g daily, day 5 today PDMP PDMP Reviewed: Not Reviewed Attestations 2 Medical Necessity Statement*: Requires ongoing hospitalization for dialysis, nephrology recommendations and supportive care. Anticipating discharge in 24 to 48 hours Time Spent in Patient Care: 20 minutes Coding Level of Care Code Acute Code for [facility] Fwd Diagnoses Shortness of breath R06.02 Acute metabolic encephalopathy G93.41 Acute kidney injury superimposed on CKD N17.9; N18.9 Chronic anemia D64.9 Chronic obstructive pulmonary disease, unspecified COPD type J44.9 COPD type: unspecified COPD Diastolic heart failure, unspecified HF chronicity I50.30 Heart failure chronicity: unspecified Bilateral leg edema R60.0 LEROY on CPAP G47.33; Z99.89 Essential hypertension I10 Insulin dependent type 2 diabetes mellitus E11.9; Z79.4 Hyperkalemia E87.5 UTI (urinary tract infection) N39.0 History of CVA (cerebrovascular accident) Z86.73 Expressive aphasia R47.01 Mental and behavioral problems with communication (including speech) F80.9 Time Spent (min) 20
[2024-11-30 16:10] LABS: Glucose Point of Care 225 mg/dL (70-110)
[2024-11-30 20:27] LABS: Glucose Point of Care 405 mg/dL (70-110)
[2024-11-30] MEDS: trazodone 100 mg Tablet PO (21:24)
[2024-11-30] MEDS: atorvastatin 40 mg Tablet PO (21:24)
[2024-11-30] MEDS: insulin glargine 100 units/1 mL 18 UNIT SUBCUT (21:25)
--- NOTE | 2024-11-30 22:49 | PC.NURSE ---
patient in bed resting with eyes open, nurses in room to turn patient on her side. patient has a small smear bowel movement, patients buttocks is a deep purple. two pillows placed on her left side and one pillow placed on her right side. patient had complaints of her legs hurting, hydrocodone PO given for pain. will reassess patient in one hour.
[2024-12-01] VITALS (14 sets, daily range): BP systolic 142–173; BP diastolic 54–73; PULSE 60–71; RESP 10–22; TEMP 36.6–37.1; O2SAT 97–100
[2024-12-01] MEDS: ipratropium-albuterol 3 mL Neb INHALATION ×4 (02:49→21:11)
[2024-12-01] MEDS: bumetanide 0.25 mg/mL SDV 4 mL 1 MG IVP ×2 (05:11→17:14)
[2024-12-01] MEDS: heparin 5,000 unit/mL INJ 1 mL 5000 UNIT SUBCUT ×2 (05:11→15:41)
[2024-12-01] MEDS: risperiDONE 1 mg Tablet PO (05:11)
[2024-12-01] MEDS: buPROPion XL (24 HR) 150 mg Tablet PO (05:11)
[2024-12-01 05:57] LABS: Basophils % 0.1 %; Eosinophils % 0.2 %; Hematocrit 28.1 % (36-47); Lymphocytes # 0.5 10^3/uL (0.8-4.8); Lymphocytes % 4.6 %; Mean Corpuscular HGB Conc 29.5 g/dL (30-55); Mean Corpuscular Volume 84.6 fl (85-98); Mean Platelet Volume 10.1 fL (7.4-10.4); Monocytes # 0.6 10^3/uL (0.2-0.9); Monocytes % 5.7 %; Neutrophils # 9.87 10^3/uL (1.8-7.7); Nucleated Red Blood Cells % 0 %; Platelet Count 217 10^3/cmm (157-399); Red Blood Count 3.32 10^6/uL (3.85-5.65); Red Cell Distribution Width 15.9 % (12.1-15.1); White Blood Count 11.22 10^3/uL (3.29-11.43)
[2024-12-01 06:06] LABS: Glucose Point of Care 263 mg/dL (70-110)
[2024-12-01 06:15] LABS: Anion Gap 14.8 (5-19); Blood Urea Nitrogen 46 mg/dL (8-23); Calcium 8.3 mg/dL (8.5-10.5); Carbon Dioxide 28 mmol/L (22-29); Chloride 101 mmol/L (98-107); Creatinine Clr Calc Pharmacy 45.8241; Glomerular Filtration Rate 32.5 mL/min (90-130); Glucose 265 mg/dL (65-115); Osmolality Calculated 309 mOsm/kg (285-295); Potassium 4.8 mmol/L (3.5-5.1); Sodium 139 mmol/L (136-145)
[2024-12-01] MEDS: insulin lispro 100 unit/1 mL 9 UNIT SUBCUT ×3 (06:15→17:15)
[2024-12-01] MEDS: budesonide 0.5 mg/2 mL Neb INHALATION ×2 (08:01→21:11)
[2024-12-01] MEDS: ferric gluconate 125 MG in sodium chloride 0.9% (100 ml) 100 ML 110 MG IV (08:53)
[2024-12-01] MEDS: insulin lispro 100 unit/1 mL SUBCUT ×4 (08:53→20:36)
[2024-12-01] MEDS: allopurinol 100 mg Tablet 200 MG PO (08:53)
[2024-12-01] MEDS: lamoTRIgine 100 mg Tablet PO ×3 (08:53→20:36)
[2024-12-01] MEDS: clopidogrel 75 mg Tablet PO (08:53)
[2024-12-01] MEDS: metoprolol tartrate 25 mg Tablet PO ×2 (08:53→17:15)
[2024-12-01] MEDS: b-complex-vitamin c Tablet 1 EACH PO (08:53)
[2024-12-01] MEDS: docusate sodium 100 mg Capsule PO ×2 (08:53→17:15)
[2024-12-01] MEDS: predniSONE 20 mg Tablet 40 MG PO (08:53)
[2024-12-01 11:39] LABS: Glucose Point of Care 233 mg/dL (70-110)
--- NOTE | 2024-12-01 11:50 | P.PN_ITS ---
Subjective 2 Subjective: no new c/o Medications: Reviewed: Yes Vitals/I&O/Wt Last Vital Signs Temp 97.9 F 12/01/24 11:26 Pulse 60 12/01/24 11:26 Resp 10 L 12/01/24 11:26 BP 163/61 12/01/24 11:26 Pulse Ox 100 12/01/24 11:26 O2 Del Method Nasal Cannula 12/01/24 11:26 O2 Flow Rate 2 12/01/24 08:00 FiO2 25 11/28/24 21:29 11/30/24 12/01/24 12/01/24 22:59 06:59 14:59 Intake Total 370 / 1460 100 / 1560 230 / 230 Output Total 800 / 5303 200 / 5503 Balance -430 / -3843 -100 / -3943 230 / 230 Weight last 48 hrs Weight 122.243 kg Weight 125.1 kg Weight 124.012 kg Physical Exam 2 Narrative: Obese lady lying in bed using nasal cannula oxygen. Vital signs are noted. HEENT normocephalic atraumatic. 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 Lungs- dec b/l basilar dullness and crackles Heart paced rhythm positive S1-S2. Abdomen is soft positive bowel sounds. Extremities 2 + edema with skin blistering and tenderness. Right femoral catheter for dialysis Neuro exam: She is awake and alert responsive knows she is in the hospital but not talking to the point and is sometimes I am not clear what she is talking about. She is weak but moves all extremities Urinary Catheter Management: Kent: Cath Placed During This Visit: yes Reason for Continuing Indwelling Catheter: Accurate Measurement of Urinary Output in Critically Ill Patients Urinary Catheter Date of Insertion: 11/20/24 Data 12/01/24 05:04 12/01/24 05:04 A&P Assessment and plan (1) Acute kidney injury superimposed on CKD: Plan 64-year-old lady morbid obesity, hypertension, diabetes, sleep apnea on CPAP, history of CVA, mitral valve disease. The patient has known CKD stage IV patient presents now with altered mental status and acute kidney injury with severe volume overload. The patient was diuresed and unfortunately her creatinine has bumped and she still feels short of breath and swollen. 1. Chronic kidney disease: :Progressive renal insufficiency likely combination of diabetes hypertension obesity related FSGS, and effects of previous DELORIS. Patient now with DELORIS which can be cardiorenal syndrome versus progression of underlying CKD versus effects of medications. Renal ultrasound did not show hydronephrosis that showed a right kidney of 9.6 cm on left of 11 cm. ABG showed mixed metabolic and respiratory acidosis with a pH of 7.26 pCO2 of 45 bicarbonate of 20. However this is much improved from her pCO2 of 68 in August 2024. As patient has severe volume overload we initiated dialysis on 11/23/24 -HD done friday --s/p tunnelled catheter placement , HD tomorrow -Urine studies reviewed she had 2+ protein 3+ blood 2+ leuk esterase, still 21- 50 white cells and squamous epithelial cells. Of note she has calcium oxalate crystals of 10-15. She also has hyaline casts Will also send an SPEP again as patient has significant anemia. 2. Anemia send iron studies B12 folate SPEP serum immunofixation and free light chain. -She received Epogen yesterday Iron saturation of 23% ferritin 128 will give IV iron. 3. Diabetic control. lower sterodis as tolerated 4. MBD : Phosphorus of 5 can monitor. Await PTH -Severe vitamin D deficiency will replace 5. CHF : Echocardiogram reviewed EF of 64% with grade 3 out of 4 diastolic dysfunction with restrictive filling pattern severely elevated. Question if this could be cardiac amyloid. With severely elevated filling pressures we will continue diuresis. The patient was seen and examined with the aid of a nurse using audiovisual equipment. The patient consented to telehealth and to dialysis. PDMP PDMP Reviewed: Not Reviewed Attestations 2 Medical Necessity Statement*: per medicine Coding Level of Care Code Acute Code for Chg Fwd Diagnoses Acute kidney injury superimposed on CKD N17.9; N18.9
--- NOTE | 2024-12-01 12:08 | PM.PN ---
Subjective Subjective: Seen her at bedside this morning. Complained of lower abdominal pain since last night. Denies any complaint of nausea or vomiting. Medications: Reviewed: Yes Vitals/I&O/Wt Last Vital Signs Temp 97.9 F 12/01/24 11:26 Pulse 60 12/01/24 11:26 Resp 10 L 12/01/24 11:26 BP 163/61 12/01/24 11:26 Pulse Ox 100 12/01/24 11:26 O2 Del Method Nasal Cannula 12/01/24 11:26 O2 Flow Rate 2 12/01/24 08:00 FiO2 25 11/28/24 21:29 11/30/24 12/01/24 12/01/24 22:59 06:59 14:59 Intake Total 370 / 1460 100 / 1560 230 / 230 Output Total 800 / 5303 200 / 5503 Balance -430 / -3843 -100 / -3943 230 / 230 Weight last 48 hrs Weight 122.243 kg Weight 125.1 kg Weight 124.012 kg Physical Exam Narrative: General: Patient is awake. Head: Normocephalic. Atraumatic. Neck: No JVD. Cardiovascular: RRR. No gallops. No murmurs. 2+ pitting edema bilateral lower extremities. Lungs: Breath sounds are diminished, no use of accessory muscles, no crackles or wheezes. Skin: No jaundice. No rashes. Abdomen: Normal bowel sounds, abdomen soft and nontender. Extremities: No cyanosis or clubbing. Musculoskeletal: No swollen or erythematous joints. Neurological: Moves all 4 extremities. No myoclonus. Urinary Catheter Management: Kent: Cath Placed During This Visit: yes Reason for Continuing Indwelling Catheter: Accurate Measurement of Urinary Output in Critically Ill Patients Urinary Catheter Date of Insertion: 11/20/24 Data 12/01/24 05:04 12/01/24 05:04 A&P Assessment and plan (1) Shortness of breath: (2) Acute metabolic encephalopathy: (3) Acute kidney injury superimposed on CKD: (4) Chronic anemia: (5) COPD (chronic obstructive pulmonary disease): Qualifiers: COPD type: unspecified COPD Qualified Code(s): J44.9 - Chronic obstructive pulmonary disease, unspecified (6) Diastolic heart failure: Qualifiers: Heart failure chronicity: unspecified Qualified Code(s): I50.30 - Unspecified diastolic (congestive) heart failure (7) Bilateral leg edema: (8) LREOY on CPAP: (9) Essential hypertension: (10) Insulin dependent type 2 diabetes mellitus: (11) Hyperkalemia: (12) UTI (urinary tract infection): (13) History of CVA (cerebrovascular accident): (14) Expressive aphasia: (15) Mental and behavioral problems with communication (including speech): Plan Acute kidney injury on CKD - Nephrology following appreciate recommendations - Continue strict I's and O's - Daily assessment of volume and renal function - Plan is for long-term dialysis - HD line to be placed this morning and temp line removed Acute COPD exacerbation - Continue Pulmicort - Continue prednisone - Breathing treatments as needed Type 2 diabetes mellitus, uncontrolled with hyperglycemia - Continue Lantus - Adjust insulin as needed - Sliding scale insulin correction Acute on chronic diastolic heart failure with preserved ejection fraction - Continue fluid restriction - Volume control via dialysis - Strict I's and O's - Daily weights Acute on chronic anemia - Monitor blood counts, transfuse if needed - Continue PPI Hypertension - Continue metoprolol Debility and physical deconditioning - PT/OT Acute complicated Proteus Mirabilis UTI, resolved DVT prophylaxis: Heparin CODE STATUS: Full code 11/30/24 S/p tunnel HD catheter placement. Plan for long-term dialysis Nephrology recommendations appreciated Follow-up case management for discharge planning Continue IV ceftriaxone 1 g daily, day 5 today 12/01/24 Abdominal pain likely secondary to constipation. Patient had a bowel movement which relieved the abdominal pain. Will continue to monitor. Hemodynamically stable. Awaiting case management for discharge planning.Will transfer to [facility] [place] for further care. PDMP PDMP Reviewed: Not Reviewed Attestations Medical Necessity Statement*: Awaiting case management for discharge planning Time Spent in Patient Care: 15minutes Coding Level of Care Code Acute Code for Chg Fwd Diagnoses Shortness of breath R06.02 Acute metabolic encephalopathy G93.41 Acute kidney injury superimposed on CKD N17.9; N18.9 Chronic anemia D64.9 Chronic obstructive pulmonary disease, unspecified COPD type J44.9 COPD type: unspecified COPD Diastolic heart failure, unspecified HF chronicity I50.30 Heart failure chronicity: unspecified Bilateral leg edema R60.0 LEROY on CPAP G47.33; Z99.89 Essential hypertension I10 Insulin dependent type 2 diabetes mellitus E11.9; Z79.4 Hyperkalemia E87.5 UTI (urinary tract infection) N39.0 History of CVA (cerebrovascular accident) Z86.73 Expressive aphasia R47.01 Mental and behavioral problems with communication (including speech) F80.9 Time Spent (min) 15
--- NOTE | 2024-12-01 13:44 | PC.SOCIAL ---
IMM updated IMM dated and initialed, copy placed in chart and copy given to patient
[2024-12-01 16:25] LABS: Glucose Point of Care 377 mg/dL (70-110)
[2024-12-01] MEDS: cefTRIAXone 1,000 mg SDV 1000 MG IVP (17:14)
--- NOTE | 2024-12-01 19:08 | PC.NURSE ---
Patient refused to let watch repair technician take 20:00 vitals.
[2024-12-01 20:17] LABS: Glucose Point of Care 383 mg/dL (70-110)
[2024-12-01] MEDS: atorvastatin 40 mg Tablet PO (20:36)
[2024-12-01] MEDS: insulin glargine 100 units/1 mL 18 UNIT SUBCUT (20:37)
[2024-12-02] VITALS (11 sets, daily range): BP systolic 129–154; BP diastolic 66–69; PULSE 59–77; RESP 16–18; TEMP 36.7–37.1; O2SAT 93–99
[2024-12-02] MEDS: ipratropium-albuterol 3 mL Neb INHALATION ×4 (04:03→21:32)
[2024-12-02 05:52] LABS: Glucose Point of Care 206 mg/dL (70-110)
[2024-12-02] MEDS: risperiDONE 1 mg Tablet PO (06:05)
[2024-12-02] MEDS: buPROPion XL (24 HR) 150 mg Tablet PO (06:05)
[2024-12-02] MEDS: heparin 5,000 unit/mL INJ 1 mL 5000 UNIT SUBCUT ×2 (06:05→15:19)
[2024-12-02] MEDS: bumetanide 0.25 mg/mL SDV 4 mL 1 MG IVP ×2 (06:06→17:47)
[2024-12-02] MEDS: insulin lispro 100 unit/1 mL 9 UNIT SUBCUT ×3 (06:06→17:47)
[2024-12-02] MEDS: budesonide 0.5 mg/2 mL Neb INHALATION ×2 (07:52→21:32)
[2024-12-02] MEDS: ferric gluconate 125 MG in sodium chloride 0.9% (100 ml) 100 ML 110 MG IV (09:01)
[2024-12-02] MEDS: insulin lispro 100 unit/1 mL SUBCUT ×4 (09:01→21:22)
[2024-12-02] MEDS: docusate sodium 100 mg Capsule PO ×2 (09:02→17:48)
[2024-12-02] MEDS: predniSONE 20 mg Tablet 40 MG PO (09:02)
[2024-12-02] MEDS: b-complex-vitamin c Tablet 1 EACH PO (09:02)
[2024-12-02] MEDS: allopurinol 100 mg Tablet 200 MG PO (09:02)
[2024-12-02] MEDS: clopidogrel 75 mg Tablet PO (09:02)
[2024-12-02] MEDS: lamoTRIgine 100 mg Tablet PO ×3 (09:02→21:22)
[2024-12-02] MEDS: metoprolol tartrate 25 mg Tablet PO ×2 (09:02→17:48)
[2024-12-02] MEDS: HYDROcodone-acetaminophen 5-325 mg Tablet 1 TAB PO (09:11)
--- NOTE | 2024-12-02 10:45 | PM.PN ---
Subjective Subjective: no new c/o Medications: Reviewed: Yes Vitals/I&O/Wt Last Vital Signs Temp 98.1 F 12/02/24 07:33 Pulse 60 12/02/24 07:53 Resp 16 12/02/24 07:53 BP 138/67 12/02/24 07:33 Pulse Ox 98 12/02/24 07:53 O2 Del Method Nasal Cannula 12/02/24 07:53 O2 Flow Rate 1 12/02/24 07:53 FiO2 25 11/28/24 21:29 12/01/24 12/02/24 12/02/24 22:59 06:59 14:59 Intake Total 360 / 1070 240 / 1310 Output Total 950 / 950 150 / 1100 Balance -590 / 120 90 / 210 Weight last 48 hrs Weight 123.921 kg Weight 122.243 kg Weight 125.1 kg Physical Exam Narrative: Obese lady lying in bed using nasal cannula oxygen. Vital signs are noted. HEENT normocephalic atraumatic. 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 Lungs- dec b/l basilar dullness and crackles Heart paced rhythm positive S1-S2. Abdomen is soft positive bowel sounds. Extremities 2 + edema with skin blistering and tenderness. Right femoral catheter for dialysis Neuro exam: She is awake and alert responsive knows she is in the hospital but not talking to the point and is sometimes I am not clear what she is talking about. She is weak but moves all extremities Urinary Catheter Management: Kent: Cath Placed During This Visit: yes Reason for Continuing Indwelling Catheter: Other Urinary Catheter Date of Insertion: 11/20/24 Data 12/01/24 05:04 12/01/24 05:04 A&P Assessment and plan (1) Acute kidney injury superimposed on CKD: Plan 64-year-old lady morbid obesity, hypertension, diabetes, sleep apnea on CPAP, history of CVA, mitral valve disease. The patient has known CKD stage IV patient presents now with altered mental status and acute kidney injury with severe volume overload. The patient was diuresed and unfortunately her creatinine has bumped and she still feels short of breath and swollen. 1. Chronic kidney disease: :Progressive renal insufficiency likely combination of diabetes hypertension obesity related FSGS, and effects of previous DELORIS. Patient now with DELORIS which can be cardiorenal syndrome versus progression of underlying CKD versus effects of medications. Renal ultrasound did not show hydronephrosis that showed a right kidney of 9.6 cm on left of 11 cm. ABG showed mixed metabolic and respiratory acidosis with a pH of 7.26 pCO2 of 45 bicarbonate of 20. However this is much improved from her pCO2 of 68 in August 2024. As patient has severe volume overload we initiated dialysis on 11/23/24 -HD done friday --s/p tunnelled catheter placement , HD tomorrow -Urine studies reviewed she had 2+ protein 3+ blood 2+ leuk esterase, still 21-50 white cells and squamous epithelial cells. Of note she has calcium oxalate crystals of 10-15. She also has hyaline casts Will also send an SPEP again as patient has significant anemia. 2. Anemia send iron studies B12 folate SPEP serum immunofixation and free light chain. -She received Epogen yesterday Iron saturation of 23% ferritin 128 will give IV iron. 3. Diabetic control. lower sterodis as tolerated 4. MBD : Phosphorus of 5 can monitor. Await PTH -Severe vitamin D deficiency will replace 5. CHF : Echocardiogram reviewed EF of 64% with grade 3 out of 4 diastolic dysfunction with restrictive filling pattern severely elevated. Question if this could be cardiac amyloid. With severely elevated filling pressures we will continue diuresis. The patient was seen and examined with the aid of a nurse using audiovisual equipment. The patient consented to telehealth and to dialysis. PDMP PDMP Reviewed: Not Reviewed Attestations Medical Necessity Statement*: per medicine Coding Level of Care Code Acute Code for Chg Fwd Diagnoses Acute kidney injury superimposed on CKD N17.9; N18.9
[2024-12-02 10:54] LABS: Glucose Point of Care 212 mg/dL (70-110)
--- NOTE | 2024-12-02 12:29 | P.PN_ITS ---
Subjective 2 Subjective: No acute events noted overnight. Medications: Reviewed: Yes Vitals/I&O/Wt Last Vital Signs Temp 98.4 F 12/02/24 11:46 Pulse 59 L 12/02/24 11:46 Resp 17 12/02/24 11:46 BP 129/69 12/02/24 11:46 Pulse Ox 96 12/02/24 11:46 O2 Del Method Nasal Cannula 12/02/24 11:46 O2 Flow Rate 1 12/02/24 07:53 FiO2 11/28/24 21:29 12/01/24 12/02/24 12/02/24 22:59 06:59 14:59 Intake Total 360 / 1070 240 / 1310 110 / 110 Output Total 950 / 950 150 / 1100 Balance -590 / 120 90 / 210 110 / 110 Weight last 48 hrs Weight 123.921 kg Weight 122.243 kg Weight 125.1 kg Physical Exam 2 Narrative: General: Patient is awake. Head: Normocephalic. Atraumatic. Neck: No JVD. Cardiovascular: RRR. No gallops. No murmurs. 2+ pitting edema bilateral lower extremities. Lungs: Breath sounds are diminished, no use of accessory muscles, no crackles or wheezes. Skin: No jaundice. No rashes. Abdomen: Normal bowel sounds, abdomen soft and nontender. Extremities: No cyanosis or clubbing. Musculoskeletal: No swollen or erythematous joints. Neurological: Moves all 4 extremities. No myoclonus. Urinary Catheter Management: Kent: Cath Placed During This Visit: yes Reason for Continuing Indwelling Catheter: Other Urinary Catheter Date of Insertion: 11/20/24 Data 12/01/24 05:04 12/01/24 05:04 A&P Assessment and plan (1) Shortness of breath: (2) Acute metabolic encephalopathy: (3) Acute kidney injury superimposed on CKD: (4) Chronic anemia: (5) COPD (chronic obstructive pulmonary disease): Qualifiers: COPD type: unspecified COPD Qualified Code(s): J44.9 - Chronic obstructive pulmonary disease, unspecified (6) Diastolic heart failure: Qualifiers: Heart failure chronicity: unspecified Qualified Code(s): I50.30 - Unspecified diastolic (congestive) heart failure (7) Bilateral leg edema: (8) LEROY on CPAP: (9) Essential hypertension: (10) Insulin dependent type 2 diabetes mellitus: (11) Hyperkalemia: (12) UTI (urinary tract infection): (13) History of CVA (cerebrovascular accident): (14) Expressive aphasia: (15) Mental and behavioral problems with communication (including speech): Plan Acute kidney injury on CKD - Nephrology following appreciate recommendations - Continue strict I's and O's - Daily assessment of volume and renal function - Plan is for long-term dialysis - HD line to be placed this morning and temp line removed Acute COPD exacerbation - Continue Pulmicort - Continue prednisone - Breathing treatments as needed Type 2 diabetes mellitus, uncontrolled with hyperglycemia - Continue Lantus - Adjust insulin as needed - Sliding scale insulin correction Acute on chronic diastolic heart failure with preserved ejection fraction - Continue fluid restriction - Volume control via dialysis - Strict I's and O's - Daily weights Acute on chronic anemia - Monitor blood counts, transfuse if needed - Continue PPI Hypertension - Continue metoprolol Debility and physical deconditioning - PT/OT Acute complicated Proteus Mirabilis UTI, resolved DVT prophylaxis: Heparin CODE STATUS: Full code 11/30/24 S/p tunnel HD catheter placement. Plan for long-term dialysis Nephrology recommendations appreciated Follow-up case management for discharge planning Continue IV ceftriaxone 1 g daily, day 5 today 12/01/24 Abdominal pain likely secondary to constipation. Patient had a bowel movement which relieved the abdominal pain. Will continue to monitor. Hemodynamically stable. Awaiting case management for discharge planning.Will transfer to [facility] [place] for further care. 12/02/24 Doing well this morning. Patient to have HD today and tomorrow. Can be discharged to long-term tomorrow. Will follow-up case management and nephrology for discharge planning. PDMP PDMP Reviewed: Not Reviewed Attestations 2 Medical Necessity Statement*: Awaiting case management for discharge planning Time Spent in Patient Care: 15minutes Coding Level of Care Code Acute Code for Chg Fwd Diagnoses Shortness of breath R06.02 Acute metabolic encephalopathy G93.41 Acute kidney injury superimposed on CKD N17.9; N18.9 Chronic anemia D64.9 Chronic obstructive pulmonary disease, unspecified COPD type J44.9 COPD type: unspecified COPD Diastolic heart failure, unspecified HF chronicity I50.30 Heart failure chronicity: unspecified Bilateral leg edema R60.0 LEROY on CPAP G47.33; Z99.89 Essential hypertension I10 Insulin dependent type 2 diabetes mellitus E11.9; Z79.4 Hyperkalemia E87.5 UTI (urinary tract infection) N39.0 History of CVA (cerebrovascular accident) Z86.73 Expressive aphasia R47.01 Mental and behavioral problems with communication (including speech) F80.9 Time Spent (min) 15
[2024-12-02 17:35] LABS: Glucose Point of Care 281 mg/dL (70-110)
[2024-12-02] MEDS: cefTRIAXone 1,000 mg SDV 1000 MG IVP (17:47)
[2024-12-02 21:17] LABS: Glucose Point of Care 324 mg/dL (70-110)
[2024-12-02] MEDS: atorvastatin 40 mg Tablet PO (21:22)
[2024-12-02] MEDS: insulin glargine 100 units/1 mL 18 UNIT SUBCUT (21:22)
[2024-12-03] VITALS (14 sets, daily range): BP systolic 121–149; BP diastolic 54–70; PULSE 59–72; RESP 16–20; TEMP 36.5–36.9; O2SAT 93–99
[2024-12-03] MEDS: trazodone 100 mg Tablet PO (01:14)
[2024-12-03] MEDS: ipratropium-albuterol 3 mL Neb INHALATION ×3 (02:18→13:10)
[2024-12-03 06:18] LABS: Glucose Point of Care 169 mg/dL (70-110)
[2024-12-03 06:31] LABS: Glucose Point of Care 161 mg/dL (70-110)
[2024-12-03] MEDS: bumetanide 0.25 mg/mL SDV 4 mL 1 MG IVP ×2 (06:44→17:14)
[2024-12-03] MEDS: insulin lispro 100 unit/1 mL 9 UNIT SUBCUT ×2 (06:44→17:13)
[2024-12-03] MEDS: heparin 5,000 unit/mL INJ 1 mL 5000 UNIT SUBCUT ×2 (06:44→17:13)
[2024-12-03] MEDS: risperiDONE 1 mg Tablet PO (06:44)
[2024-12-03] MEDS: buPROPion XL (24 HR) 150 mg Tablet PO (06:44)
[2024-12-03] MEDS: budesonide 0.5 mg/2 mL Neb INHALATION (07:44)
[2024-12-03] MEDS: clopidogrel 75 mg Tablet PO (08:11)
[2024-12-03] MEDS: lamoTRIgine 100 mg Tablet PO ×2 (08:11→17:14)
[2024-12-03] MEDS: docusate sodium 100 mg Capsule PO ×2 (08:11→17:14)
[2024-12-03] MEDS: allopurinol 100 mg Tablet 200 MG PO (08:11)
[2024-12-03] MEDS: insulin lispro 100 unit/1 mL SUBCUT ×2 (08:11→17:51)
[2024-12-03] MEDS: metoprolol tartrate 25 mg Tablet PO ×2 (08:11→17:13)
[2024-12-03] MEDS: predniSONE 20 mg Tablet 40 MG PO (08:11)
[2024-12-03] MEDS: b-complex-vitamin c Tablet 1 EACH PO (08:11)
[2024-12-03] MEDS: heparin, porcine 1,000 unit/mL INJ 10 mL 10000 UNIT HE (09:39)
--- NOTE | 2024-12-03 10:05 | PC.SOCIAL ---
IMM Updated Updated pt's guardian, Brenton Hsu, on IMM. No questions voiced. Provided pt a copy. Initialed, dated, & timed copy in chart.
[2024-12-03 11:04] LABS: Glucose Point of Care 131 mg/dL (70-110)
--- NOTE | 2024-12-03 11:33 | P.DS_ITS ---
Discharge Providers Date of Admission: 11/20/24 14:19 Date of Discharge: December 03, 2024 Attending Provider at Admission: Patel Jones MD Attending Provider at Discharge: Susan Yusuf MD Primary Care Provider: Benigno Jennings DO Diagnoses at Discharge Discharge Diagnosis (1) Acute kidney injury superimposed on CKD: Status: Acute Reason for Visit Reason for Visit: weakness Brief History: Hilda Wallace is a 64 year old female with past medical history of Warnicke's encephalopathy, CVA, type 2 diabetes mellitus, dysphagia, hypothyroidism, obstructive sleep apnea, hypertension, pacemaker implantation for severe bradycardia, depression, anxiety, paranoia presents today from assisted living because of weakness and confusion. As per the nurse from the assisted living patient seems short of breath today and breathing fast lung with more confused and sleepy than her baseline hence she was sent to the ER. Patient has been complaining of feeling cold for last 3 to 4 days. Nursing staff denies any diarrhea, nausea, vomiting, fever, changes in her medications recently. Hospital Course Hospital Course Plan 64-year-old with past medical history of sleep apnea, COPD, diastolic heart failure, pacemaker implantation, expressive aphasia due to CVA, depression and paranoia presents to the ER with difficulty breathing, altered mental status found to have possible UTI and bilateral lower limb edema. Shortness of breath: Hypoxia: Requiring up to 1 L of oxygen supplementation. Patient does have history of COPD, LEROY on CPAP, diastolic heart failure. Oxygen supplementation keeping saturation over 90%. Appreciate ABG in ER showing mild metabolic acidosis, mild hypoxia. No concern for hypercapnia. Check respiratory viral panel, blood culture, urine culture. Pulmicort twice daily, DuoNeb every 6 hour. Solu-Medrol 40 mg every 12 hourly. Fluid restriction to less than 1500 cc. Strict input output charting, daily weights. Kent catheterization. IV Bumex 1 mg Q8 hourly. Methasone 5 mg oral daily. Continue with home CPAP. Altered mental status: Patient has a history of expressive aphasia with behavior problem with communication problem in the past due to CVA. Slight worsening currently most likely in setting of UTI. Cannot rule out viral prodrome. Cannot rule out polypharmacy. Patient seems to be on the same medication on while she was discharged on 09/11. For now continue with home dose of BuSpar 150 mg oral daily, lamotrigine 100 mg oral 3 times daily, risperidone 1 mg every morning. Holding off on home dose of olanzapine for now. Once patient is more awake will restart. UTI: Appreciate urine analysis. Nitrite positive. Appreciate old cultures. Follow-up urine culture blood culture. For now start on IV Zosyn. Bilateral lower limb edema: With blisters. Cannot rule out cellulitis. IV antibiotic as above. MRSA swab negative in the past. Diuretics and antibiotic as above. Type 2 diabetes mellitus: Most recent A1c 6.6. Sliding-scale low-dose protocol. Holding off on Lantus for now. DELORIS on CKD: Baseline creatinine 2.1-2.5. Currently 3.5. Medical reconciliation done for nephrotoxic drugs. Monitor renal functions daily. Does have mild hyperkalemia on admission. Mild metabolic acidosis. Received treatment for hyperkalemia in ER. Repeat BMP. Hypertension: Goal blood pressure less than 140/90 mmHg. Restart home hydralazine 25 mg every 8 hourly, metoprolol 37.5 mg twice daily. Uptitrate as for goal blood pressure. Acute kidney injury on CKD - Renal function continues to worsen - Hold further diuretics for today - She previously required to have dialysis - Request nephrology consultation nephrology consulted. She eventually had a tunneled catheter placed and was started on HD, friday, and friday. she is doing well, will discharge her today. Physical Exam Narrative: General: Patient is awake. Head: Normocephalic. Atraumatic. Neck: No JVD. Cardiovascular: RRR. No gallops. No murmurs. 2+ pitting edema bilateral lower extremities. Lungs: Breath sounds are diminished, no use of accessory muscles, no crackles or wheezes. Skin: No jaundice. No rashes. Abdomen: Normal bowel sounds, abdomen soft and nontender. Extremities: No cyanosis or clubbing. Musculoskeletal: No swollen or erythematous joints. Neurological: Moves all 4 extremities. No myoclonus. Urinary Catheter Management: Kent: Cath Placed During This Visit: yes Reason for Continuing Indwelling Catheter: Other Urinary Catheter Date of Insertion: 11/20/24 Discharge Data Studies Completed and Pending Completed Studies During Hospitalization Category Date Time Status CT chest abdomen pelvis [[place] [id number] Cat Scan 11/21/24 13:18 Completed ] Routine XR chest 1V portable [id number] Stat Exams 11/20/24 11:50 [place] [id number] Routine Ultrasound 11/22/24 19:58 Completed CV. echo wo/w contrast [id number] Routine Ultrasound 11/23/24 11:39 Completed US renal BI* [id number] Routine Ultrasound 11/23/24 11:42 Completed Pending at discharge Category Date Time Status Immunofixation Serum Stat Lab 11/23/24 12:02 Received Radiology Impressions Chest X-Ray 11/20/24 11:50 IMPRESSION: No acute findings. Low lung volumes. Chest/Abdomen/Pelvis CT 11/21/24 13:18 IMPRESSION: 1. Mild interstitial pulmonary edema with small bilateral pleural effusions and compressive atelectasis in the right and left lower lobes. 2. Interval development of mild body wall edema. 3. Incidental/nonacute findings are listed in the report. IMPRESSION: 1. Fluid within the small bowel and colon without evidence of bowel wall thickening. This may reflect viral gastroenteritis in the appropriate clinical situation. 2. Interval development of trace ascites. 3. Stable indeterminate hyperdense focus in the left kidney compared with 07/29/2024. This could represent a hemorrhagic/proteinaceous cyst. 4. Stable sigmoid diverticulosis. No evidence for diverticulitis. 5. Stable moderate body wall edema. 6. Incidental/nonacute findings are listed in the report. COMMENTS: Consistent with the [employer]'s Incidental Findings Committee white paper (J Am Kirt Radiol 2018): Any incidental renal lesion less than 1 cm or classified as too small to characterize, or any incidental cystic renal lesion characterized as simple-appearing, is likely benign. No follow-up imaging is recommended for these lesions per consensus recommendations based on imaging criteria. Renal Ultrasound 11/23/24 11:42 IMPRESSION: Limited examination due to body habitus and bowel gas 1. No hydronephrosis in either kidney. 2. Kent catheter C-Arm Fluoroscopy 11/29/24 09:03 IMPRESSION: Intraoperative imaging during dialysis catheter placement. Laboratory Results WBC 11.22 10^3/uL (3.29-11.43) 12/01/24 05:04 RBC 3.32 10^6/uL (3.85-5.65) L 12/01/24 05:04 Hgb 8.30 g/dL (11.27-16.99) L 12/01/24 05:04 Hct 28.1 % (36-47) L 12/01/24 05:04 MCV 84.6 fl (85-98) L 12/01/24 05:04 MCH 25.0 pg (27-33) L 12/01/24 05:04 MCHC 29.5 g/dL (30-55) L 12/01/24 05:04 RDW 15.9 % (12.1-15.1) H 12/01/24 05:04 Plt Count 217 10^3/cmm (157-399) 12/01/24 05:04 MPV 10.1 fL (7.4-10.4) 12/01/24 05:04 Neut % (Auto) 88.0 % 12/01/24 05:04 Lymph % (Auto) 4.6 % 12/01/24 05:04 [place]borne % (Auto) 5.7 % 12/01/24 05:04 Eos % (Auto) 0.2 % 12/01/24 05:04 Baso % (Auto) 0.1 % 12/01/24 05:04 Neut # (Auto) 9.87 10^3/uL (1.8-7.7) H 12/01/24 05:04 Lymph # (Auto) 0.5 10^3/uL (0.8-4.8) L 12/01/24 05:04 [place] # (Auto) 0.6 10^3/uL (0.2-0.9) 12/01/24 05:04 Eos # (Auto) 0.0 10^3/uL (0.0-0.8) 12/01/24 05:04 Baso # (Auto) 0.0 10^3/uL (0.0-0.1) 12/01/24 05:04 Nucleated RBC % (auto) 0 % 12/01/24 05:04 Nucleated RBCs # 0.0 /100WBC 12/01/24 05:04 PT 14.70 SECONDS (12.1-14.9) 11/20/24 11:23 INR 1.07 (0.8-1.2) 11/20/24 11:23 APTT 30.2 SECONDS (23.9-36.7) 11/20/24 11:23 Specimen Type Arterial 11/23/24 12:20 Sample Site Radial, left 11/23/24 12:20 ABG pH 7.26 (7.35-7.45) L 11/23/24 12:20 ABG pCO2 45.5 mmHg (35-45) H 11/23/24 12:20 ABG pO2 80.0 mmHg (80.0-100.0) 11/23/24 12:20 ABG PO2/FiO2 Ratio 285 11/23/24 12:20 ABG HCO3 20.5 mmol/L (22-26) L 11/23/24 12:20 ABG O2 Saturation 95.5 11/23/24 12:20 ABG Base Excess -6.1 mmol/L (-2.0-2.0) L 11/23/24 12:20 Thien Test Pos 11/23/24 12:20 A-a O2 Gradient 8.4 mmHg (5-10) 11/23/24 12:20 Hematocrit 24.0 % (37-47) L 11/23/24 12:20 Hgb O2 Saturation 93.1 % (95-100) L 11/23/24 12:20 Carboxyhemoglobin 1.3 %THgb (0.4-20.1) 11/23/24 12:20 Methemoglobin 1.2 % (0.4-1.5) 11/23/24 12:20 Total Hemoglobin 7.8 g/dL (12-16) L 11/23/24 12:20 Sodium 137.0 mmol/L (131-143) 11/23/24 12:20 Potassium 4.9 mmol/L (3.5-5.0) 11/23/24 12:20 Glucose 182.0 mg/dL (70-115) H 11/23/24 12:20 Ionized Calcium 1.1 mmol/L (1.1-1.4) 11/23/24 12:20 O2 Delivery Device Nc 11/23/24 12:20 O2 Liters/Min 2.0 % 11/23/24 12:20 FiO2 28.0 % 11/23/24 12:20 Celebrity Manager ID Gd 11/23/24 12:20 Sodium 139 mmol/L (136-145) 12/01/24 05:04 Potassium 4.8 mmol/L (3.5-5.1) 12/01/24 05:04 Chloride 101 mmol/L (98-107) 12/01/24 05:04 Carbon Dioxide 28 mmol/L (22-29) 12/01/24 05:04 Anion Gap 14.8 (5-19) 12/01/24 05:04 BUN 46 mg/dL (8-23) H 12/01/24 05:04 Creatinine 1.6 mg/dL (0.5-0.9) H 12/01/24 05:04 GFR Calculation 32.5 mL/min (90-130) L 12/01/24 05:04 Glucose 265 mg/dL (65-115) H 12/01/24 05:04 POC Glucose 131 mg/dL (70-110) H 12/03/24 10:47 Estimat Average Glucose 143 11/23/24 12:02 Hemoglobin A1c 6.6 % (4.0-6.0) H 11/23/24 12:02 Calculated Osmolality 309 mOsm/kg (285-295) H 12/01/24 05:04 Lactic Acid 2.1 mmol/L (0.5-2.2) 11/20/24 11:23 Lactic Acid (Sepsis) 1.4 mmol/L (0.5-2.2) 11/20/24 14:28 Calcium 8.3 mg/dL (8.5-10.5) L 12/01/24 05:04 Phosphorus 4.6 mg/dL (2.5-4.5) H 11/30/24 04:42 Magnesium 2.0 mg/dL (1.7-2.3) 11/27/24 02:21 Iron 46 ug/dL (37-145) 11/23/24 12:02 TIBC 198 mcg/dl 11/23/24 12:02 % Saturation 23.2 % (20-50) 11/23/24 12:02 Unsat Iron Binding 152 ug/dL (112-347) 11/23/24 12:02 Ferritin 128 ng/mL (15-150) 11/23/24 12:02 Total Bilirubin 0.2 mg/dL (0.15-1.2) 11/27/24 02:21 AST 8 U/L (0-32) 11/27/24 02:21 ALT 12 U/L (0-33) 11/27/24 02:21 Alkaline Phosphatase 89 U/L (35-105) 11/27/24 02:21 Creatine Kinase 48 U/L (26-192) 11/23/24 12:02 NT-Pro-B Natriuret Pep 5596 pg/mL (0-125) H 11/20/24 11:23 Total Protein 4.8 g/dL (6.6-8.7) L 11/27/24 02:21 Albumin 2.9 g/dL (3.5-5.2) L 11/30/24 04:42 Globulin 1.6 g/dL (1.3-4.6) 11/27/24 02:21 Jxpbq-7-Uasclsvwe 0.4 g/dL (0.2-0.3) H 11/23/24 12:02 Tlphh-2-Beikblmzw 0.8 g/dL (0.5-0.9) 11/23/24 12:02 Mpjz-2-Vrdvlobf 0.3 g/dL (0.4-0.6) L 11/23/24 12:02 Gksh-5-Umdeepam 0.3 g/dL (0.2-0.5) 11/23/24 12:02 Gamma Globulins 0.3 g/dL (0.8-1.7) L 11/23/24 12:02 Abnorm Protein Band 1 Not Reportable 11/23/24 12:02 Vitamin B12 461 pg/mL (232-1245) 11/23/24 12:02 25-OH Vitamin D Total 6 ng/mL (30-100) L 11/23/24 12:02 Folate 6.3 ng/mL (4.8-37.3) 11/23/24 12:02 Procalcitonin 0.39 ng/mL (0-0.5) 11/21/24 04:43 Urine Color Yellow (Yellow) 11/23/24 12:10 Urine Appearance Cloudy (CLEAR) A 11/23/24 12:10 Urine pH 5 (5-7) 11/23/24 12:10 Ur Specific [place] 1.025 (1.005-1.030) 11/23/24 12:10 Urine Protein 2+ (Negative) A 11/23/24 12:10 Urine Glucose (UA) Norm (Normal) 11/23/24 12:10 Urine Ketones Negative (Negative) 11/23/24 12:10 Urine Blood 3+ (Negative) A 11/23/24 12:10 Urine Nitrate Negative (Negative) 11/23/24 12:10 Urine Bilirubin Neg (Negative) 11/23/24 12:10 Urine Urobilinogen Norm mg/dL (Negative) 11/23/24 12:10 Ur Leukocyte Esterase 2+ (Negative) A 11/23/24 12:10 Urine RBC 6-10 /hpf (0-2) 11/23/24 12:10 Urine WBC 21-50 /hpf (0-5) H 11/23/24 12:10 Ur Squamous Epith Cells 21-50 /hpf (0-5) H 11/23/24 12:10 Calcium Oxalate Crystal 10-15 /hpf H 11/23/24 12:10 Amorphous Sediment Not Reportable 11/23/24 12:10 Urine Bacteria None seen /hpf (NONE) 11/23/24 12:10 Hyaline Casts 218.05 /lpf 11/23/24 12:10 U Abnormal Prot Band 2 Not Reportable 11/23/24 12:02 U Abnormal Prot Band 3 Not Reportable 11/23/24 12:02 Pro Electrophoresis Int See note 11/23/24 12:02 YI Screen Negative (NEGATIVE) 11/23/24 12:02 Anti-ds DNA IgG Ab <1 IU/mL 11/23/24 12:02 Free [place] Light Chains 20.7 mg/L (3.3-19.4) H 11/23/24 12:02 Free [place] Light Chain 17.7 mg/L (5.7-26.3) 11/23/24 12:02 Free [place]/Lambda Ratio 1.17 (0.26-1.65) 11/23/24 12:02 Adenovirus (PCR) Not detected (NOT DETECT) 11/20/24 18:00 C. pneumoniae DNA (PCR) Not detected (NOT DETECT) 11/20/24 18:00 Coronavirus 229E (PCR) Not detected (NOT DETECT) 11/20/24 18:00 Hep Bs Antigen Non-reactive (Nonreactive) 11/23/24 12:02 Hep Bs Antibody < 3.5 (11.5-1000) L 11/23/24 12:02 Hepatitis C Antibody Non-reactive (Nonreactive) 11/23/24 12:02 Human Metapneumovir PCR Not detected (NOT DETECT) 11/20/24 18:00 Influenza A (H1) PCR Not detected (NOT DETECT) 11/20/24 18:00 Influ A (H1/09) PCR Not detected (NOT DETECT) 11/20/24 18:00 Influenza A (H3) PCR Not detected (NOT DETECT) 11/20/24 18:00 Influenza Type A (PCR) Not detected (NOT DETECT) 11/20/24 18:00 Influenza Type B (PCR) Not detected (NOT DETECT) 11/20/24 18:00 M. pneumoniae (PCR) Not detected (NOT DETECT) 11/20/24 18:00 Parainfluenza 1 (PCR) Not detected (NOT DETECT) 11/20/24 18:00 Parainfluenza 2 (PCR) Not detected (NOT DETECT) 11/20/24 18:00 Parainfluenza 3 (PCR) Not detected (NOT DETECT) 11/20/24 18:00 Parainfluenza 4 (PCR) Not detected (NOT DETECT) 11/20/24 18:00 RSV Type A (PCR) Not detected (NOT DETECT) 11/20/24 18:00 RSV Type B (PCR) Not detected (NOT DETECT) 11/20/24 18:00 Entero/Rhino (PCR) Not detected (NOT DETECT) 11/20/24 18:00 SARS-CoV-2 (PCR) Not detected (NOT DETECT) 11/20/24 18:00 Blood Type O Positive 11/21/24 06:21 Rho(D) Type Rh positive 11/21/24 06:21 Antibody Screen Negative 11/21/24 06:21 Crossmatch See Detail 11/21/24 06:21 Vitals Last Vital Signs Temp 97.7 F 12/03/24 09:27 Pulse 64 12/03/24 09:27 Resp 18 12/03/24 09:27 BP 141/58 12/03/24 09:27 Pulse Ox 98 12/03/24 07:45 O2 Del Method Nasal Cannula 12/03/24 07:45 O2 Flow Rate 1 12/03/24 07:45 FiO2 25 11/28/24 21:29 Discharge Plan Discharge Patient Disposition: Xfer SNF Condition: Stable Prescriptions: New trazodone 100 mg Tablet 100 mg PO BEDTIME PRN (Reason: Insomnia) 30 Days Qty: 30 0RF docusate sodium 100 mg Capsule 100 mg PO BID 30 Days Qty: 60 0RF ergocalciferol (vitamin D2) [Vitamin D2] 1,250 mcg (50,000 unit) Capsule 50,000 unit PO Q7D 30 Days Qty: 4 0RF metoprolol tartrate 25 mg Tablet 25 mg PO BID 30 Days Qty: 60 0RF Continued allopurinol 300 mg tablet 300 mg PO DAILY Qty: 90 0RF atorvastatin 40 mg tablet 40 mg PO BEDTIME cetirizine 10 mg Tablet 10 mg PO DAILY magnesium hydroxide [Milk of Magnesia] 400 mg/5 mL Suspension 30 ml PO DAILY PRN (Reason: Constipation) calcium carbonate 500 mg calcium (1,250 mg) Tablet,Chewable 500 mg PO Q8H PRN (Reason: gastro-esophageal reflux) acetaminophen [Tylenol] 325 mg Tablet 650 mg PO Q6H PRN (Reason: PAIN OR ELEVATED TEMP) clopidogrel 75 mg tablet 75 mg PO DAILY ondansetron HCl 4 mg tablet 4 mg PO Q6H PRN (Reason: Nausea And Vomiting) ascorbic acid (vitamin C) [Vitamin C] 500 mg tablet 500 mg PO DAILY fluticasone propionate 50 mcg/actuation spray,suspension 1 spray INTRANASAL Q12H PRN (Reason: ALLERGIES) risperidone 1 mg Tablet 1 mg PO QAM lamotrigine 100 mg Tablet 100 mg PO TID bupropion HCl 150 mg Tablet Extended Release 24 Hr 150 mg PO QAM eszopiclone 3 mg tablet 3 mg PO BEDTIME hydralazine 25 mg Tablet 25 mg PO Q8H melatonin 5 mg Tablet 10 mg PO BEDTIME insulin aspart U-100 [Novolog FlexPen U-100 Insulin] 100 unit/mL (3 mL) insulin pen See Rx Instructions .ROUTE .COMPLEX Qty: 15 0RF Rx Instructions: Inject, subcut, 3 times daily, after meals, based on sliding scale provided insulin glargine [Lantus Solostar U-100 Insulin] 100 unit/mL (3 mL) insulin pen 10 unit SUBCUT DAILY Qty: 15 0RF Discontinued tramadol 50 mg tablet 50 mg PO Q6H PRN (Reason: pain) Qty: 120 5RF metoprolol tartrate 25 mg tablet 37.5 mg PO BID diphenhydramine HCl [Banophen] 25 mg Capsule 25 mg PO Q12H PRN (Reason: Allergy Symptoms) lidocaine 5 % Adhesive Patch,Medicated 1 patch TOPICAL Q12H PRN (Reason: Pain) Rx Instructions: leave on most painful area for up to 12 hrs olanzapine 5 mg tablet 5 mg PO BEDTIME sucralfate 100 mg/mL suspension 100 mg PO TID potassium chloride 10 mEq tablet extended release 10 meq PO BID No Action (DME) Dexcom G7 Sensor Device See Rx Instructions .Route Qty: 1 0RF Rx Instructions: As directed (DME) Dexcom G7 Surgical Nurse Misc See Rx Instructions .Route Qty: 1 6RF Rx Instructions: As directed Discharge Orders: Discharge Order (Routine); Ordered 12/03/24 Ordered By: Susan Yusuf Referrals: Benigno Jennings DO [Primary Care Provider] - Discharge Diet: Cardiac Discharge Activity: Increase activity as tolerated and As per PT/OT instructions Patient Instructions: Acute Wound Care (DC), Opioid Safety, Post Anesthesia Care Discharge Attestations Time Spent in Discharge Care*: less than 30 min Status at Discharge: Cognitive status at discharge: cognitively intact , Behavioral status at discharge: cooperative , Quality Metrics Clinical Quality Measures [ No reported AMI, CVA or VTE this stay] Coding Level of Care Code Acute Code for Chg Fwd Diagnoses Acute kidney injury superimposed on CKD N17.9; N18.9 Time Spent (min) 25
--- NOTE | 2024-12-03 14:26 | P.PN_ITS ---
Subjective 2 Subjective: no new complaints Medications: Reviewed: Yes Vitals/I&O/Wt Last Vital Signs Temp 97.7 F 12/03/24 12:38 Pulse 63 12/03/24 13:20 Resp 16 12/03/24 13:11 BP 121/54 12/03/24 12:38 Pulse Ox 96 12/03/24 13:20 O2 Del Method Nasal Cannula 12/03/24 13:20 O2 Flow Rate 1 12/03/24 13:20 FiO2 25 11/28/24 21:29 12/02/24 12/03/24 12/03/24 22:59 06:59 14:59 Intake Total 240 / 350 600 / 950 1100 / 1100 Output Total 4950 / 4950 3864 / 3864 Balance 240 / 350 -4350 / -4000 -2764 / -2764 Weight last 48 hrs Weight 120.8 kg Weight 123.831 kg Weight 123.921 kg Physical Exam 2 Narrative: Obese lady lying in bed using nasal cannula oxygen. Vital signs are noted. HEENT normocephalic atraumatic. Neck obese supple difficult to director life insurance JVP. Lungs- dec b/l basilar dullness and crackles Heart paced rhythm positive S1-S2. Abdomen is soft positive bowel sounds. Extremities 2 + edema with skin blistering and tenderness. Right femoral catheter for dialysis Neuro exam: She is awake and alert responsive knows she is in the hospital but not talking to the point and is sometimes I am not clear what she is talking about. She is weak but moves all extremities Urinary Catheter Management: Kent: Cath Placed During This Visit: yes Reason for Continuing Indwelling Catheter: Other Urinary Catheter Date of Insertion: 11/20/24 Data 12/01/24 05:04 12/01/24 05:04 A&P Assessment and plan (1) Acute kidney injury superimposed on CKD: Plan 64-year-old lady morbid obesity, hypertension, diabetes, sleep apnea on CPAP, history of CVA, mitral valve disease. The patient has known CKD stage IV patient presents now with altered mental status and acute kidney injury with severe volume overload. The patient was diuresed and unfortunately her creatinine has bumped and she still feels short of breath and swollen. 1. Chronic kidney disease: :Progressive renal insufficiency likely combination of diabetes hypertension obesity related FSGS, and effects of previous DELORIS. Patient now with DELORIS which can be cardiorenal syndrome versus progression of underlying CKD versus effects of medications. Renal ultrasound did not show hydronephrosis that showed a right kidney of 9.6 cm on left of 11 cm. ABG showed mixed metabolic and respiratory acidosis with a pH of 7.26 pCO2 of 45 bicarbonate of 20. However this is much improved from her pCO2 of 68 in August 2024. As patient has severe volume overload we initiated dialysis on 11/23/24 -HD done friday --s/p tunnelled catheter placement , HD today -Urine studies reviewed she had 2+ protein 3+ blood 2+ leuk esterase, still 21- 50 white cells and squamous epithelial cells. Of note she has calcium oxalate crystals of 10-15. She also has hyaline casts Will also send an SPEP again as patient has significant anemia. 2. Anemia send iron studies B12 folate SPEP serum immunofixation and free light chain. -She received Epogen yesterday Iron saturation of 23% ferritin 128 will give IV iron. 3. Diabetic control. lower sterodis as tolerated 4. MBD : Phosphorus of 5 can monitor. Await PTH -Severe vitamin D deficiency will replace 5. CHF : Echocardiogram reviewed EF of 64% with grade 3 out of 4 diastolic dysfunction with restrictive filling pattern severely elevated. Question if this could be cardiac amyloid. With severely elevated filling pressures we will continue diuresis. The patient was seen and examined with the aid of a nurse using audiovisual equipment. The patient consented to telehealth and to dialysis. PDMP PDMP Reviewed: Not Reviewed Attestations 2 Medical Necessity Statement*: per grzegorz Coding Level of Care Code Acute Code for Chg Fwd Diagnoses Acute kidney injury superimposed on CKD N17.9; N18.9
[2024-12-03 17:10] LABS: Glucose Point of Care 326 mg/dL (70-110)
--- NOTE | 2024-12-03 20:30 | PC.NURSE ---
Pt. discharged off unit with Nicola Vuong at approximately 2000 for transport to [facility]. Patient paperwork packet sent with [facility] personnel.
== END 2024-12-03 20:00 | disposition skilled nursing facility (03) | DRG 291 ==
LOC: ER 14:13 → CSU 14:27 → MEDSURG 12-01 14:39
PROVIDERS: Internal Medicine; Internal Medicine Nephrology; Student in an Organized Health Care Education/Training Program; Admitting Provider Student in an Organized Health Care Education/Training Program; Emergency Provider Emergency Medicine; PCP Family Medicine; Visit Provider Internal Medicine
DX: I13.0 Hypertensive heart and chronic kidney disease with heart failure and stage 1 through stage 4 chronic kidney disease, or unspecified chronic kidney disease (principal); G93.41 Metabolic encephalopathy; I50.33 Acute on chronic diastolic (congestive) heart failure; N39.0 Urinary tract infection, site not specified; E51.2 Wernicke's encephalopathy; N17.9 Acute kidney failure, unspecified; E87.20 Acidosis, unspecified; J44.1 Chronic obstructive pulmonary disease with (acute) exacerbation; E87.4 Mixed disorder of acid-base balance; E66.01 Morbid (severe) obesity due to excess calories; F41.9 Anxiety disorder, unspecified; F32.A Depression, unspecified; E78.2 Mixed hyperlipidemia; E11.42 Type 2 diabetes mellitus with diabetic polyneuropathy; E87.6 Hypokalemia; N18.9 Chronic kidney disease, unspecified; Z79.899 Other long term (current) drug therapy; Z79.01 Long term (current) use of anticoagulants; Z88.0 Allergy status to penicillin; Z88.2 Allergy status to sulfonamides; Z99.81 Dependence on supplemental oxygen; Z79.4 Long term (current) use of insulin; Z87.891 Personal history of nicotine dependence; Z98.890 Other specified postprocedural states; Z90.710 Acquired absence of both cervix and uterus; Z88.8 Allergy status to other drugs, medicaments and biological substances; Z88.6 Allergy status to analgesic agent; Z88.1 Allergy status to other antibiotic agents; E03.9 Hypothyroidism, unspecified; Z95.0 Presence of cardiac pacemaker; F22 Delusional disorders; D63.1 Anemia in chronic kidney disease; G47.33 Obstructive sleep apnea (adult) (pediatric); I69.320 Aphasia following cerebral infarction; E11.22 Type 2 diabetes mellitus with diabetic chronic kidney disease; E11.65 Type 2 diabetes mellitus with hyperglycemia; B96.4 Proteus (mirabilis) (morganii) as the cause of diseases classified elsewhere; K59.00 Constipation, unspecified; M89.8X9 Other specified disorders of bone, unspecified site; E55.9 Vitamin D deficiency, unspecified
CPT/HCPCS: 36415; 36416; 36430; 36600; 51702; 71045; 71250; 74176; 76000; 76770; 77001; 80048; 80051; 80053; 80069; 81001; 82306; 82330; 82550; 82607; 82728; 82746; 82805; 82962; 83036; 83540; 83550; 83605; 83735; 83880; 83883; 84100; 84132; 84145; 84155; 84165; 85025; 85610; 85730; 86038; 86225; 86334; 86706; 86803; 86850; 86900; 86920; 87040; 87077; 87086; 87150; 87186; 87205; 87340; 87486; 87581; 87633; 90935; 92507; 92526; 92610; 93005; 93971; 94640; 94660; 94664; 96365; 96372; 96375; 96376; 97110; 97162; 97167; 97530; 97535; 99285; A9270; C1750; C8929; J0612; J0690; J0696; J1644; J1815; J1938; J1956; J2250; J2270; J2470; J2543; J2704; J2916; J2919; J3010; J3490; J7030; J7512; J7626; J9999; P9016; P9046; Q3014

== ENCOUNTER 2024-12-12 11:53 | Inpatient (IN) | payer MEDICARE, SELFPAY ==
[2024-12-12] VITALS (40 sets, daily range): BP systolic 124–196; BP diastolic 64–118; PULSE 60–71; RESP 17–30; TEMP 36.4–36.8; O2SAT 90–100; BMI 46.3; BMI 46.1
--- NOTE | 2024-12-12 11:57 | CTR_ITS ---
PROCEDURE INFORMATION: Exam: CT Head Without Contrast Exam date and time: 12/12/2024 12:17 PM Age: 64 years old Clinical indication: Altered mental status/memory loss; Additional info: AMS TECHNIQUE: Imaging protocol: Computed tomography of the head without contrast. Radiation optimization: All CT scans at this facility use at least one of these dose optimization techniques: automated exposure control; mA and/or kV adjustment per patient size (includes targeted exams where dose is matched to clinical indication); or iterative reconstruction. COMPARISON: CT head wo con* [id number] 09/14/2024 7:15 AM RADIATION DOSE METRICS: Total DLP (mGy-cm): 1170.18 FINDINGS: Brain: Encephalomalacia in the left temporal lobe and parietal lobe, from prior infarct. No recent infarct, intracranial bleed or mass effect. Old right cerebellar infarct. Cerebral ventricles: There is a normal-variant cavum septum pellucidum. Paranasal sinuses: Visualized sinuses are unremarkable. No fluid levels. Mastoid air cells: Visualized mastoid air cells are well aerated. Orbital cavities: Post bilateral cataract surgery. Bones: Benign hyperostosis frontalis is present. Soft tissues: Unremarkable. CT/CT head wo con* [id number] IMPRESSION: No large territorial infarct or intracranial bleed.
--- NOTE | 2024-12-12 11:57 | XRR_ITS ---
PROCEDURE INFORMATION: Exam: XR Chest Exam date and time: 12/12/2024 12:20 PM Age: 64 years old Clinical indication: Dyspnea; Prior surgery; Surgery date: 6+ months; Surgery type: Pacer, dialysis cath; Additional info: Weakness TECHNIQUE: Imaging protocol: Radiologic exam of the chest. Views: 1 view. COMPARISON: [place] [id number] 11/21/2024 1:53 PM FINDINGS: Tubes, catheters and devices: A pacemaker device is present, and its leads are in appropriate position. Right internal jugular catheter with its tip in the right atrium. Lungs: There is poor ventilation of the lungs, accounting for mild diffuse increase in pulmonary parenchymal density. There is no evidence of focal pulmonary consolidation. Pleural spaces: Unremarkable. No pleural effusion. No pneumothorax. Heart/Mediastinum: The heart is enlarged. Vasculature: There are aortic arch calcifications. Bones/joints: Post left rotator cuff repair. XR/XR chest 1V portable [id number] IMPRESSION: No acute cardiopulmonary process.
--- NOTE | 2024-12-12 12:07 | W.ED.WEAKNES ---
HPI - Weakness General: Chief complaint: Weakness Stated complaint: sob Time Seen by Provider: 12/12/24 11:54 Source: EMS Mode of arrival: EMS Limitations: altered mental status History of Present Illness: 64-year-old female who has a history of stroke in the past sent here by intermediate for increased altered mental status per EMS they state that she seemed more altered than her baseline and he was admitted there little over a week ago. Patient here difficult to arouse but when I do she is able to tell me her name but not really able answer many other questions I am unsure what her baseline is Review of Systems General: Reports: ROS unobtainable due to mental status PFSH ED PFSH: Medical History CKD (chronic kidney disease) COPD (chronic obstructive pulmonary disease) Diastolic heart failure Essential hypertension Insulin dependent type 2 diabetes mellitus Bilateral leg edema LEROY on CPAP Chronic anemia Pacemaker Acute pancreatitis Sinus pause DELORIS (acute kidney injury) Altered mental status Paranoid Expressive aphasia Anxiety and depression Lives in assisted living facility Rotator cuff tear, right Diabetes mellitus insulin dependent Essential (primary) hypertension Depression due to cerebrovascular accident (CVA) Expressive aphasia Hypomagnesemia Bilateral pneumonia Hyponatremia Hyperkalemia Right humeral fracture Metabolic encephalopathy Resolved Acute delirium Resolved Pneumonia due to COVID-19 virus Resolved Poor social situation Multinodular thyroid Acute embolic stroke Recurrent falls Resolved History of CVA (cerebrovascular accident) Acute hypersomnolence disorder Essential hypertension Wernicke dysphasia Diabetes mellitus with neuropathy Mixed hyperlipidemia Surgical History History of nasal sinusotomy History of cholecystectomy History of tonsillectomy History of repair of rotator cuff History of hysterectomy for indication other than malignancy History of bursectomy Hx of adenoidectomy Status post anal fissurectomy History of colonoscopy Family History Mother CAD (coronary artery disease) Other Asthma Cancer Diabetes Heart disease Hypertension Stroke Social History Smoking and tobacco/nicotine status: former use of tobacco/nicotine Alcohol intake: current Alcohol intake frequency: few times a month Substance/Drug Use: never Physical Exam Const: COMMON NORMALS: negative for patient oriented x3 HENMT: COMMON NORMALS: normocephalic and atraumatic HEAD & SCALP: normocephalic and atraumatic Eye: COMMON NORMALS: conjunctivae normal CONJUNCTIVA: Yes conjunctivae normal Neck/C-Spine: COMMON NORMALS: full ROM and supple Chest: COMMONS NORMALS: normal inspection of the chest Resp: COMMON NORMALS: normal respiratory effort, No retractions, No use of accessory muscles and clear to auscultation bilaterally AUSCULTATION: clear to auscultation bilaterally Cardio: COMMON NORMALS: regular rate, regular rhythm and No murmurs present (Cardio) RATE: regular rate RHYTHM: regular rhythm GI: COMMON NORMALS: Normal to inspection, nondistended, normoactive bowel sounds present, Soft to palpation, non-tender and no masses PALPATION: Yes Soft to palpation Extremity: COMMON NORMALS: normal to inspection and full ROM Neuro: COMMON NORMALS: negative for patient oriented x3 Psych: COMMON NORMALS: cooperative; negative for mental status grossly normal Skin: COMMON NORMALS: no rashes or lesions noted and no wounds GENERAL SKIN EXAM: no rashes or lesions noted Course Vital Signs: Vital signs: Vital Signs Temperature 98.3 F 12/12/24 11:54 Pulse Rate 71 12/12/24 11:54 Respiratory Rate 24 H 12/12/24 11:54 Blood Pressure 160/118 12/12/24 11:54 Pulse Oximetry 94 12/12/24 14:04 Oxygen Delivery Me thod Nasal Cannula 12/12/24 11:54 Oxygen Flow Rate 2 12/12/24 11:54 Fraction of Inspir ed Oxygen 25 12/12/24 14:04 MDM - Weakness Medical Decision Making Patient presents here with altered mental status along with elevated BNP. Will place patient on BiPAP she has had some respiratory distress as well no signs of pneumonia spoke to hospitalist will admit at this time Medical Records I reviewed the patient's medical records. Lab Data I reviewed the patient's lab results. 12/12/24 12:11 12/12/24 12:11 Radiology Impressions Chest X-Ray 12/12/24 11:57 IMPRESSION: No acute cardiopulmonary process. Head CT 12/12/24 11:57 IMPRESSION: No large territorial infarct or intracranial bleed. Laboratory Results WBC 9.06 10^3/uL (3.29-11.43) 12/12/24 12:11 RBC 2.93 10^6/uL (3.85-5.65) L 12/12/24 12:11 Hgb 7.50 g/dL (11.27-16.99) L 12/12/24 12:11 Hct 25.0 % (36-47) L 12/12/24 12:11 MCV 85.3 fl (85-98) 12/12/24 12:11 MCH 25.6 pg (27-33) L 12/12/24 12:11 MCHC 30.0 g/dL (30-55) 12/12/24 12:11 RDW 18.0 % (12.1-15.1) H 12/12/24 12:11 Plt Count 179 10^3/cmm (157-399) 12/12/24 12:11 MPV 9.2 fL (7.4-10.4) 12/12/24 12:11 Neut % (Auto) 80.8 % 12/12/24 12:11 Lymph % (Auto) 8.8 % 12/12/24 12:11 [place] % (Auto) 8.7 % 12/12/24 12:11 Eos % (Auto) 0.9 % 12/12/24 12:11 Baso % (Auto) 0.4 % 12/12/24 12:11 Neut # (Auto) 7.31 10^3/uL (1.8-7.7) 12/12/24 12:11 Lymph # (Auto) 0.8 10^3/uL (0.8-4.8) 12/12/24 12:11 [place] # (Auto) 0.8 10^3/uL (0.2-0.9) 12/12/24 12:11 Eos # (Auto) 0.1 10^3/uL (0.0-0.8) 12/12/24 12:11 Baso # (Auto) 0.0 10^3/uL (0.0-0.1) 12/12/24 12:11 Nucleated RBC % (auto) 0 % 12/12/24 12:11 Nucleated RBCs # 0.0 /100WBC 12/12/24 12:11 PT 15.60 SECONDS (12.1-14.9) H 12/12/24 12:11 INR 1.16 (0.8-1.2) 12/12/24 12:11 Specimen Type Arterial 12/12/24 12:33 Sample Site Radial, right 12/12/24 12:33 ABG pH 7.40 (7.35-7.45) 12/12/24 12:33 ABG pCO2 53.7 mmHg (35-45) H 12/12/24 12:33 ABG pO2 80.8 mmHg (80.0-100.0) 12/12/24 12:33 ABG PO2/FiO2 Ratio 288 12/12/24 12:33 ABG HCO3 33.5 mmol/L (22-26) H 12/12/24 12:33 ABG Base Excess 7.8 mmol/L (-2.0-2.0) H 12/12/24 12:33 Thien Test Pos 12/12/24 12:33 Hematocrit 24.2 % (37-47) L 12/12/24 12:33 O2 Delivery Device Nc 12/12/24 12:33 O2 Liters/Min 2.0 % 12/12/24 12:33 FiO2 28.0 % 12/12/24 12:33 Type Bar And Segment Assembler ID Amh 12/12/24 12:33 Sodium 134 mmol/L (136-145) L 12/12/24 12:11 Potassium 4.6 mmol/L (3.5-5.1) 12/12/24 12:11 Chloride 95 mmol/L (98-107) L 12/12/24 12:11 Carbon Dioxide 30 mmol/L (22-29) H 12/12/24 12:11 Anion Gap 13.6 (5-19) 12/12/24 12:11 BUN 16 mg/dL (8-23) 12/12/24 12:11 Creatinine 2.6 mg/dL (0.5-0.9) H 12/12/24 12:11 GFR Calculation 18.5 mL/min (90-130) L 12/12/24 12:11 Glucose 220 mg/dL (65-115) H 12/12/24 12:11 Calculated Osmolality 286 mOsm/kg (285-295) 12/12/24 12:11 Calcium 8.6 mg/dL (8.5-10.5) 12/12/24 12:11 Total Bilirubin 0.5 mg/dL (0.15-1.2) 12/12/24 12:11 AST 286 U/L (0-32) H 12/12/24 12:11 ALT 241 U/L (0-33) H 12/12/24 12:11 Alkaline Phosphatase 109 U/L (35-105) H 12/12/24 12:11 NT-Pro-B Natriuret Pep 66250 pg/mL (0-125) H 12/12/24 12:11 Total Protein 5.6 g/dL (6.6-8.7) L 12/12/24 12:11 Albumin 3.2 g/dL (3.5-5.2) L 12/12/24 12:11 Globulin 2.4 g/dL (1.3-4.6) 12/12/24 12:11 TSH 2.43 uIU/mL (0.27-4.20) 12/12/24 12:11 Urine Color Yellow (Yellow) 12/12/24 12:44 Urine Appearance Slightly cloudy (CLEAR) 12/12/24 12:44 Urine pH TNP 12/12/24 12:44 Ur Specific [place] TNP 12/12/24 12:44 Urine Protein TNP 12/12/24 12:44 Urine Glucose (UA) TNP 12/12/24 12:44 Urine Ketones TNP 12/12/24 12:44 Urine Blood TNP 12/12/24 12:44 Urine Nitrate TNP 12/12/24 12:44 Urine Bilirubin TNP 12/12/24 12:44 Urine Urobilinogen TNP 12/12/24 12:44 Ur Leukocyte Esterase TNP 12/12/24 12:44 Urine RBC 0-4 /hpf (0-2) H 12/12/24 12:44 Urine WBC 0-4 /hpf (0-5) H 12/12/24 12:44 Ur Squamous Epith Cells 5-10 /hpf (0-5) H 12/12/24 12:44 Amorphous Sediment Not Reportable 12/12/24 12:44 Urine Bacteria 2+ /hpf (NONE) H 12/12/24 12:44 Urine Yeast Trace /hpf 12/12/24 12:44 All radiology interpretation(s) finalized by discharge Discharge Plan Discharge Admit Provider: Susan Yusuf Condition: Stable Coding Level of Care Code ED Belt Buckle Maker for Chg Fwd Related Data Home Medications ?Medication ?Instructions ?Recorded ?Confirmed clopidogrel 75 mg tablet 75 mg PO DAILY 07/08/20 11/20/24 acetaminophen 325 mg tablet 650 mg PO Q6H PRN PAIN OR ELEVATED 10/03/21 11/20/24 (Tylenol) TEMP atorvastatin 40 mg tablet 40 mg PO BEDTIME 10/03/21 11/20/24 calcium carbonate 500 mg PO Q8H PRN 10/03/21 11/20/24 gastro-esophageal reflux cetirizine 10 mg tablet 10 mg PO DAILY 10/03/21 11/20/24 magnesium hydroxide 400 mg/5 mL 30 ml PO DAILY PRN Constipation 10/03/21 11/20/24 oral suspension (Milk of Magnesia) ascorbic acid (vitamin C) 500 mg 500 mg PO DAILY 03/03/24 11/20/24 tablet (Vitamin C) fluticasone propionate 50 1 spray intranasal Q12H PRN 03/03/24 11/20/24 mcg/actuation nasal ALLERGIES spray,suspension ondansetron HCl 4 mg tablet 4 mg PO Q6H PRN Nausea And Vomiting 03/03/24 11/20/24 bupropion HCl 150 mg 24 hr tablet, 150 mg PO QAM 07/16/24 11/20/24 extended release eszopiclone 3 mg tablet 3 mg PO BEDTIME 07/16/24 11/20/24 lamotrigine 100 mg tablet 100 mg PO TID 07/16/24 11/20/24 risperidone 1 mg tablet 1 mg PO QAM 07/16/24 11/20/24 hydralazine 25 mg tablet 25 mg PO Q8H 08/30/24 11/20/24 melatonin 5 mg tablet 10 mg PO BEDTIME 08/30/24 11/20/24 Previous Rx's ?Medication ?Instructions ?Recorded allopurinol 300 mg tablet 300 mg PO DAILY #90 tabs 05/03/20 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 meter,continuous #1 ea 03/12/23 ([employer]ex[employer] G7 General [employer]or) 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 sensor (Dexcom G7 #1 ea 03/12/23 Sensor device) insulin aspart U-100 100 unit/mL See Rx Instructions .Route 09/07/24 (3 mL) subcutaneous pen (Novolog .COMPLEX #15 mL FlexPen U-100 Insulin aspart) insulin glargine 100 unit/mL (3 10 unit (0.1 mL) SUBCUT DAILY #15 09/07/24 mL) subcutaneous pen (Lantus mL Solostar U-100 Insulin) docusate sodium 100 mg capsule 100 mg PO BID 30 days #60 caps 12/03/24 ergocalciferol (vitamin D2) 1,250 50,000 unit PO Q7D 30 days #4 caps 12/03/24 mcg (50,000 unit) capsule (Vitamin D2) metoprolol tartrate 25 mg tablet 25 mg PO BID 30 days #60 tabs 12/03/24 trazodone 100 mg tablet 100 mg PO BEDTIME PRN Insomnia 30 12/03/24 days #30 tabs Allergies Allergy/AdvReac Type Severity Reaction Status Date / Time clarithromycin (From Biaxin) Allergy nausea Verified 09/14/24 06:32 clindamycin Allergy shock Verified 09/14/24 06:32 diclofenac Allergy swelling Verified 09/14/24 06:32 enalapril Allergy unknown Verified 09/14/24 06:32 ketorolac (From Toradol) Allergy short of Verified 09/14/24 06:32 breath losartan (From Cozaar) Allergy shock Verified 09/14/24 06:32 nifedipine (From Procardia) Allergy hives Verified 09/14/24 06:32 pregabalin (From Lyrica) Allergy unknown Verified 09/14/24 06:32 Sulfa (Sulfonamide Allergy anaphylasix Verified 09/14/24 06:32 Antibiotics)
[2024-12-12 12:16] LABS: Basophils % 0.4 %; Eosinophils # 0.1 10^3/uL (0.0-0.8); Eosinophils % 0.9 %; Lymphocytes # 0.8 10^3/uL (0.8-4.8); Lymphocytes % 8.8 %; Mean Corpuscular Hemoglobin 25.6 pg (27-33); Mean Corpuscular Volume 85.3 fl (85-98); Mean Platelet Volume 9.2 fL (7.4-10.4); Monocytes # 0.8 10^3/uL (0.2-0.9); Monocytes % 8.7 %; Neutrophils # 7.31 10^3/uL (1.8-7.7); Neutrophils % 80.8 %; Nucleated Red Blood Cells % 0 %; Platelet Count 179 10^3/cmm (157-399); Red Blood Count 2.93 10^6/uL (3.85-5.65); White Blood Count 9.06 10^3/uL (3.29-11.43)
[2024-12-12 12:29] LABS: INR 1.16 (0.8-1.2)
[2024-12-12 12:44] LABS: ABG PCO2 53.7 mmHg (35-45); Arterial Blood Gas Hematocrit 24.2 % (37-47); Base Excess ABG 7.8 mmol/L (-2.0-2.0); Blood Gas Allen Test Pos; Blood Gas Operator Identificat AMH; Blood Gas Sample Site Radial, right; Blood Gas Sample Type Arterial; HCO3 ABG 33.5 mmol/L (22-26); Oxygen Device NC; PO2 ABG 80.8 mmHg (80.0-100.0); PO2 FiO2 Ratio Arterial Blood 288
[2024-12-12 12:44] LABS: Alanine Aminotransferase 241 U/L (0-33); Albumin Level 3.2 g/dL (3.5-5.2); Alkaline Phosphatase 109 U/L (35-105); Anion Gap 13.6 (5-19); Aspartate Amino Transferase 286 U/L (0-32); Blood Urea Nitrogen 16 mg/dL (8-23); Calcium 8.6 mg/dL (8.5-10.5); Carbon Dioxide 30 mmol/L (22-29); Chloride 95 mmol/L (98-107); Creatinine Clr Calc Pharmacy 28.2308; Globulin 2.4 g/dL (1.3-4.6); Glomerular Filtration Rate 18.5 mL/min (90-130); Glucose 220 mg/dL (65-115); NT Pro B Type Natriuretic Pept 33771 pg/mL (0-125); Osmolality Calculated 286 mOsm/kg (285-295); Potassium 4.6 mmol/L (3.5-5.1); Sodium 134 mmol/L (136-145); Thyroid Stimulating Hormone 2.43 uIU/mL (0.27-4.20); Total Bilirubin 0.5 mg/dL (0.15-1.2); Total Protein 5.6 g/dL (6.6-8.7)
[2024-12-12 13:16] LABS: Urine Appearance Slightly Cloudy (CLEAR); Urine Color Yellow (Yellow)
[2024-12-12 13:17] LABS: Add Urine Microscopic? YES
[2024-12-12 13:18] LABS: Bacteria Urine 2+ /hpf; RBC Urine 0-4 /hpf (0-2); UA Manual Slide Review YES; WBC Urine 0-4 /hpf (0-5)
[2024-12-12 13:19] LABS: Add Urine Culture? Yes
[2024-12-12] MEDS: FUROsemide 10 mg/mL SDV 10mL 60 MG IVP (13:42)
[2024-12-12] MEDS: cefTRIAXone 1,000 mg SDV 1000 MG IVP (13:43)
--- NOTE | 2024-12-12 14:23 | PM.HP ---
Providers/Chief Complaint Admitting Physician: Susan Yusuf MD Primary Care Provider: Benigno Jennings DO Chief Complaint: sob History of Present Illness Hilda Wallace is a 64 year old female with past medical history of Warnicke's encephalopathy, CVA, type 2 diabetes mellitus, dysphagia, hypothyroidism, obstructive sleep apnea, hypertension, pacemaker implantation for severe bradycardia, depression, anxiety, paranoia presents today from [facility] for altered mental status. As per the [place] records she was saturating 50% on room air and altered. Called [facility] to obtain further information but no answer. She was recently admitted to the hospital from 11/20-12/03 for AMS and UTI. Started on iv zosyn. Also had worsening renal function, eventually requiring a tunneled catheter for HD on TTS. In ER ABG was 7.4/53/80/33/on 2LNC. HB 7.5 AST/ALT 286/241 AP109 BNP 95117 UA could not be done due to insufficient sample. Review of Systems General: Reports: ROS unobtainable due to mental status Medications/Allergies Home Medications ?Medication ?Instructions ?Recorded ?Confirmed ?Last Taken ?Type allopurinol 300 mg tablet 300 mg PO DAILY #90 tabs 05/03/20 12/12/24 12/12/24 07:40 Rx clopidogrel 75 mg tablet 75 mg PO DAILY 07/08/20 12/12/24 12/12/24 07:40 History acetaminophen 325 mg tablet 650 mg PO Q6H PRN PAIN OR ELEVATED 10/03/21 12/12/24 12/12/24 07:40 History (Tylenol) TEMP atorvastatin 40 mg tablet 40 mg PO BEDTIME 10/03/21 12/12/24 12/11/24 19:10 History calcium carbonate 500 mg PO Q8H PRN 10/03/21 12/12/24 12/09/24 19:10 History gastro-esophageal reflux cetirizine 10 mg tablet 10 mg PO DAILY 10/03/21 12/12/24 12/12/24 07:40 History magnesium hydroxide 400 mg/5 mL 30 ml PO DAILY PRN Constipation 10/03/21 12/12/24 12/10/24 12:10 History oral suspension (Milk of Magnesia) 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 meter,continuous #1 ea 03/12/23 12/12/24 Unknown Rx (Dexcom G7 Agriculture Sales Account Manager) 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 sensor (Dexcom G7 #1 ea 03/12/23 12/12/24 Unknown Rx Sensor device) ascorbic acid (vitamin C) 500 mg 500 mg PO DAILY 03/03/24 12/12/24 12/12/24 07:40 History tablet (Vitamin C) fluticasone propionate 50 1 spray intranasal Q12H PRN 03/03/24 12/12/24 11/20/24 History mcg/actuation nasal ALLERGIES spray,suspension ondansetron HCl 4 mg tablet 4 mg PO Q6H PRN Nausea And Vomiting 03/03/24 12/12/24 12/11/24 19:20 History bupropion HCl 150 mg 24 hr tablet, 150 mg PO QAM 07/16/24 12/12/24 12/12/24 07:40 History extended release eszopiclone 3 mg tablet 3 mg PO BEDTIME 07/16/24 12/12/24 12/11/24 19:10 History lamotrigine 100 mg tablet 100 mg PO TID 07/16/24 12/12/24 12/12/24 07:40 History risperidone 1 mg tablet 1 mg PO QAM 07/16/24 12/12/24 12/12/24 07:40 History hydralazine 25 mg tablet 25 mg PO Q8H 08/30/24 12/12/24 11/20/24 History melatonin 5 mg tablet 5 mg PO BEDTIME 08/30/24 12/12/24 12/11/24 19:10 History insulin aspart U-100 100 unit/mL See Rx Instructions .Route 09/07/24 12/12/24 12/12/24 07:10 Rx (3 mL) subcutaneous pen (Novolog .COMPLEX #15 mL FlexPen U-100 Insulin aspart) insulin glargine 100 unit/mL (3 10 unit (0.1 mL) SUBCUT DAILY #15 09/07/24 12/12/24 12/12/24 07:10 Rx mL) subcutaneous pen (Lantus mL Solostar U-100 Insulin) docusate sodium 100 mg capsule 100 mg PO BID 30 days #60 caps 12/03/24 12/12/24 12/12/24 07:40 Rx ergocalciferol (vitamin D2) 1,250 50,000 unit PO Q7D 30 days #4 caps 12/03/24 12/12/24 12/11/24 07:55 Rx mcg (50,000 unit) capsule (Vitamin D2) metoprolol tartrate 25 mg tablet 25 mg PO BID 30 days #60 tabs 12/03/24 12/12/24 12/12/24 07:40 Rx trazodone 100 mg tablet 100 mg PO BEDTIME PRN Insomnia 30 12/03/24 12/12/24 Unknown Rx days #30 tabs bisacodyl 10 mg rectal suppository 10 mg [place] DAILY PRN Constipation 12/12/24 12/12/24 Unknown History polyethylene glycol 3350 17 17 g PO DAILY PRN bowel managment 12/12/24 12/12/24 12/07/24 19:35 History gram/dose oral powder (Miralax) Allergies Allergy/AdvReac Type Severity Reaction Status Date / Time clarithromycin (From Biaxin) Allergy nausea Verified 09/14/24 06:32 clindamycin Allergy shock Verified 09/14/24 06:32 diclofenac Allergy swelling Verified 09/14/24 06:32 enalapril Allergy unknown Verified 09/14/24 06:32 ketorolac (From Toradol) Allergy short of Verified 09/14/24 06:32 breath losartan (From Cozaar) Allergy shock Verified 09/14/24 06:32 nifedipine (From Procardia) Allergy hives Verified 09/14/24 06:32 pregabalin (From Lyrica) Allergy unknown Verified 09/14/24 06:32 Sulfa (Sulfonamide Allergy anaphylasix Verified 09/14/24 06:32 Antibiotics) PFSH Acute PFSH: Medical History (Updated 12/12/24 @ 18:04 by Myra Franz MD) CKD (chronic kidney disease) COPD (chronic obstructive pulmonary disease) LEROY on CPAP Diastolic heart failure Essential hypertension Insulin dependent type 2 diabetes mellitus Bilateral leg edema Chronic anemia Pacemaker Acute pancreatitis Sinus pause DELORIS (acute kidney injury) Altered mental status Paranoid Expressive aphasia Anxiety and depression Lives in assisted living facility Rotator cuff tear, right Diabetes mellitus insulin dependent Essential (primary) hypertension Depression due to cerebrovascular accident (CVA) Expressive aphasia Hypomagnesemia Bilateral pneumonia Hyponatremia Hyperkalemia Right humeral fracture Metabolic encephalopathy Resolved Acute delirium Resolved Pneumonia due to COVID-19 virus Resolved Poor social situation Multinodular thyroid Acute embolic stroke Recurrent falls Resolved History of CVA (cerebrovascular accident) Acute hypersomnolence disorder Essential hypertension Wernicke dysphasia Diabetes mellitus with neuropathy Mixed hyperlipidemia Surgical History History of nasal sinusotomy History of cholecystectomy History of tonsillectomy History of repair of rotator cuff History of hysterectomy for indication other than malignancy History of bursectomy Hx of adenoidectomy Status post anal fissurectomy History of colonoscopy Family History Mother CAD (coronary artery disease) Other Asthma Cancer Diabetes Heart disease Hypertension Stroke Social History Smoking and tobacco/nicotine status: former use of tobacco/nicotine Alcohol intake: current Alcohol intake frequency: few times a month Substance/Drug Use: never Vitals/I&O/Wt Last Vital Signs Temp 98.3 F 12/12/24 11:54 Pulse 71 12/12/24 11:54 Resp 24 H 12/12/24 11:54 BP 160/118 12/12/24 11:54 Pulse Ox 94 12/12/24 14:04 O2 Del Method Nasal Cannula 12/12/24 11:54 O2 Flow Rate 2 12/12/24 11:54 FiO2 25 12/12/24 14:04 Weight last 48 hrs Weight 122.47 kg Physical Exam Narrative: She is drowsy, lethargic, opening eyes to sternal rub Chest clear to ascultation CVS normal heart sounds Abdomen- soft, distended, normal bowel sounds Ext b/l 4+ pitting edema present, lower leg b/l wound present. Data 12/12/24 12:11 12/12/24 12:11 A&P Assessment and plan (1) Acute hypercapnic respiratory failure: (2) Fluid overload: (3) Diabetes mellitus with neuropathy: Qualifiers: Diabetes mellitus prefabricated houses trimmer insulin use: with prefabricated houses trimmer use Diabetes mellitus type: type 2 Qualified Code(s): E11.40 - Type 2 diabetes mellitus with diabetic neuropathy, unspecified; Z79.4 - configuration management administrator (current) use of insulin (4) CHF (congestive heart failure): (5) Mixed hyperlipidemia: (6) Hemodialysis status: (7) Elevated liver function tests: Plan Hilda Wallace is a 64 year old female with past medical history of Warnicke's encephalopathy, CVA, type 2 diabetes mellitus, dysphagia, hypothyroidism, obstructive sleep apnea, hypertension, pacemaker implantation for severe bradycardia, depression, anxiety, paranoia presents today from [facility] for altered mental status. As per the [place] records she was saturating 50% on room air and altered. Called [facility] to obtain further information but no answer. She was recently admitted to the hospital from 11/20-12/03 for AMS and UTI. Started on iv zosyn. Also had worsening renal function, eventually requiring a tunneled catheter for HD on TTS. In ER ABG was 7.4/53/80/33/on 2LNC. HB 7.5 AST/ALT 286/241 AP109 BNP 88069 UA could not be done due to insufficient sample. Acute hypoxic and hypercapnic respiratory failure- likely secondary to fluid overload. Will R/O infectious etiology. Cannot rule out viral prodrome. Cannot rule out polypharmacy. CT head negative Chest x-ray negative No leucocytosis BNP 76394 Need HD today. follow up nephrology. Elevated LFT's, will check USG abdomen to evaluate for gall bladder etiology. Admit to ICU At the time of my assessment, she noted to have gasping. Will do BiPaP support for now. Check respiratory panel Will hold MEDICAL FRONT DESK COORDINATOR resperidone, lamotrigine, bupropion, melatonin, eszopiclone, trazodone Type 2 DM- MEDICAL FRONT DESK COORDINATOR Lantus 10units daily correction scale insulin CKD- continue MEDICAL FRONT DESK COORDINATOR allopurinol HTN- has been hypertensive in ER. Was on po hydralazine 25 q8h and metoprolol will do iv hydralazine 10mg q4h prn Anemia- likely ACD will monitor for now. Transfuse if Hb<7. GI PPx- iv protonix 40mg daily DVT PPx-SQ heparin Code status- as per [place] records she is full code PDMP PDMP Reviewed: Not Reviewed Attestations Medical Necessity Statement*: She needs continued hospitalization for management of altered mental status, acute hypoxic and hypercarbic respiratory failure with BIPAP, USG abdomen, hemodialysis and supportive care Time Spent in Patient Care: 45minutes Coding Level of Care Code Acute Code for Chg Fwd Diagnoses Acute hypercapnic respiratory failure J96.02 Fluid overload E87.70 Type 2 diabetes mellitus with diabetic neuropathy, with long-term current use of insulin E11.40; Z79.4 Diabetes mellitus alf insulin use: with prefabricated houses trimmer use Diabetes mellitus type: type 2 CHF (congestive heart failure) I50.9 Mixed hyperlipidemia E78.2 Hemodialysis status Z99.2 Elevated liver function tests R79.89 Time Spent (min) 45
--- NOTE | 2024-12-12 14:50 | ECG_ITS ---
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: : [id number] Requested By: Laure Atkinson Order Number: [id number] Reading MD: VETO LATHAM Measurements Intervals [place] Rate: 60 P: -56 [place]: 268 QRS: -38 QRSD: 143 T: 0 QT: 492 QTc: 492 Interpretive Statements ELECTRONIC ATRIAL PACEMAKER LEFT AXIS DEVIATION [QRS AXIS < -30] RIGHT BUNDLE BRANCH BLOCK [120+ ms QRS DURATION, UPRIGHT V1, 40+ ms S IN I/aVL/V4/V5/V6] LEFT VENTRICULAR HYPERTROPHY AND ST-T CHANGE [VOLTAGE CRITERIA PLUS ST/T ABNORMALITY] Compared to ECG 11/20/2024 12:09:35 Left-axis deviation now present Left anterior fascicular block no longer present ST (T wave) deviation still present Electronically Signed On 12-13-2024 20:59:08 CDT by VETO LATHAM [email or web address]
--- NOTE | 2024-12-12 14:56 | USR_ITS ---
PROCEDURE INFORMATION: Exam: US Abdomen Complete Exam date and time: 12/12/2024 3:56 PM Age: 64 years old Clinical indication: Abnormal findings; Abnormal lab test; Elevated liver enzymes; Prior surgery; Surgery date: 6+ months; Surgery type: Unsure of dates. Gb removed; Additional info: Elevated lft, altered mental status TECHNIQUE: Imaging protocol: Real-time ultrasound of the abdomen with image documentation. Complete exam. COMPARISON: US renal BI* [id number] 11/23/2024 2:12 PM FINDINGS: Pleural spaces: Small right pleural effusion. Liver: Diffuse increased echogenicity of the liver.. No mass. Liver measures 18.4 cm in length. Gallbladder: There has been a cholecystectomy. Biliary ducts: Normal. No stones. No dilation. The CBD measures 5 mm. Pancreas: Visualized pancreas is unremarkable. Right kidney: Normal. No mass. No hydronephrosis. Right kidney measures 9.8 x 5.8 x 5.3 cm with cortical thickness of 1.4 cm. Left kidney: Normal. No mass. No hydronephrosis. Left kidney measures 10.9 x 5.8 x 4.5 cm with cortical thickness of 1.5 cm. Spleen: Normal. No splenomegaly. Spleen measures 11.4 x 4.9 x 4 cm Intraperitoneal space: Suspicion of small ascites. Aorta: Normal. No aneurysm. Inferior vena cava: Normal. US/US abdomen complete* [id number] IMPRESSION: 1. Post cholecystectomy with no biliary dilatation. 2. Hepatic steatosis. 3. Small right pleural effusion. 4. Possible small ascites.
[2024-12-12] MEDS: heparin 5,000 unit/mL INJ 1 mL 5000 UNIT SUBCUT ×2 (17:03→23:37)
[2024-12-12] MEDS: pantoprazole 40 mg SDV IVP (17:03)
--- NOTE | 2024-12-12 17:57 | PM.CONSULT ---
Providers/Reason For Consult Consulting Physician/Specialty*: kommana/Nephrology Reason for Consult*: ESRD Attending Physician: Susan Yusuf MD Primary Care Provider: Benigno Jennings DO History of Present Illness History of Present Illness Hilda Wallace is a 64 year old female patient is a 64-year-old female with past medical history of CVA diabetes, hypertension, hypothyroidism sleep apnea hypertension, end-stage renal disease. Patient was recently admitted to the hospital due to altered mental status and UTI. Patient was initiated on dialysis via tunneled catheter during last admission. It is unclear currently that the patient has received dialysis after discharge while at the rehab facility. Lab data in the ER reviewed, hemoglobin was 7.5. Potassium was 4.6. Patient was noted to be in acute respiratory distress and hypoxic and was placed on BiPAP. Review of Systems Narrative: negative Medications/Allergies Home Medications ?Medication ?Instructions ?Recorded ?Confirmed ?Last Taken ?Type allopurinol 300 mg tablet 300 mg PO DAILY #90 tabs 05/03/20 12/12/24 12/12/24 07:40 Rx clopidogrel 75 mg tablet 75 mg PO DAILY 07/08/20 12/12/24 12/12/24 07:40 History acetaminophen 325 mg tablet 650 mg PO Q6H PRN PAIN OR ELEVATED 10/03/21 12/12/24 12/12/24 07:40 History (Tylenol) TEMP atorvastatin 40 mg tablet 40 mg PO BEDTIME 10/03/21 12/12/24 12/11/24 19:10 History calcium carbonate 500 mg PO Q8H PRN 10/03/21 12/12/24 12/09/24 19:10 History gastro-esophageal reflux cetirizine 10 mg tablet 10 mg PO DAILY 10/03/21 12/12/24 12/12/24 07:40 History magnesium hydroxide 400 mg/5 mL 30 ml PO DAILY PRN Constipation 10/03/21 12/12/24 12/10/24 12:10 History oral suspension (Milk of Magnesia) 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 meter,continuous #1 ea 03/12/23 12/12/24 Unknown Rx (Dexcom G7 Remittance Clerk) 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 sensor (Dexcom G7 #1 ea 03/12/23 12/12/24 Unknown Rx Sensor device) ascorbic acid (vitamin C) 500 mg 500 mg PO DAILY 03/03/24 12/12/24 12/12/24 07:40 History tablet (Vitamin C) fluticasone propionate 50 1 spray intranasal Q12H PRN 03/03/24 12/12/24 11/20/24 History mcg/actuation nasal ALLERGIES spray,suspension ondansetron HCl 4 mg tablet 4 mg PO Q6H PRN Nausea And Vomiting 03/03/24 12/12/24 12/11/24 19:20 History bupropion HCl 150 mg 24 hr tablet, 150 mg PO QAM 07/16/24 12/12/24 12/12/24 07:40 History extended release eszopiclone 3 mg tablet 3 mg PO BEDTIME 07/16/24 12/12/24 12/11/24 19:10 History lamotrigine 100 mg tablet 100 mg PO TID 07/16/24 12/12/24 12/12/24 07:40 History risperidone 1 mg tablet 1 mg PO QAM 07/16/24 12/12/24 12/12/24 07:40 History hydralazine 25 mg tablet 25 mg PO Q8H 08/30/24 12/12/24 11/20/24 History melatonin 5 mg tablet 5 mg PO BEDTIME 08/30/24 12/12/24 12/11/24 19:10 History insulin aspart U-100 100 unit/mL See Rx Instructions .Route 09/07/24 12/12/24 12/12/24 07:10 Rx (3 mL) subcutaneous pen (Novolog .COMPLEX #15 mL FlexPen U-100 Insulin aspart) insulin glargine 100 unit/mL (3 10 unit (0.1 mL) SUBCUT DAILY #15 09/07/24 12/12/24 12/12/24 07:10 Rx mL) subcutaneous pen (Lantus mL Solostar U-100 Insulin) docusate sodium 100 mg capsule 100 mg PO BID 30 days #60 caps 12/03/24 12/12/24 12/12/24 07:40 Rx ergocalciferol (vitamin D2) 1,250 50,000 unit PO Q7D 30 days #4 caps 12/03/24 12/12/24 12/11/24 07:55 Rx mcg (50,000 unit) capsule (Vitamin D2) metoprolol tartrate 25 mg tablet 25 mg PO BID 30 days #60 tabs 04/18/25 04/27/25 04/27/25 07:40 Rx trazodone 100 mg tablet 100 mg PO BEDTIME PRN Insomnia 30 12/03/24 12/12/24 Unknown Rx days #30 tabs bisacodyl 10 mg rectal suppository 10 mg RI DAILY PRN Constipation 12/12/24 12/12/24 Unknown History polyethylene glycol 3350 17 17 g PO DAILY PRN bowel managment 12/12/24 12/12/24 12/07/24 19:35 History gram/dose oral powder (Miralax) Allergies Allergy/AdvReac Type Severity Reaction Status Date / Time clarithromycin (From Biaxin) Allergy nausea Verified 09/14/24 06:32 clindamycin Allergy shock Verified 09/14/24 06:32 diclofenac Allergy swelling Verified 09/14/24 06:32 enalapril Allergy unknown Verified 09/14/24 06:32 ketorolac (From Toradol) Allergy short of Verified 09/14/24 06:32 breath losartan (From Cozaar) Allergy shock Verified 09/14/24 06:32 nifedipine (From Procardia) Allergy hives Verified 09/14/24 06:32 pregabalin (From Lyrica) Allergy unknown Verified 09/14/24 06:32 Sulfa (Sulfonamide Allergy anaphylasix Verified 09/14/24 06:32 Antibiotics) Current Medications Generic Name Dose Route Start Last Admin Trade Name Freq PRN Reason Stop Dose Admin Heparin Sodium (Porcine) 5,000 unit 12/12/24 15:00 12/12/24 17:03 Heparin 5,000 Unit/Ml Inj 1 Ml SUBCUT 5,000 unit Q8H JAMAR Administration Hydralazine HCl 25 mg 12/12/24 15:00 12/12/24 15:44 Hydralazine 25 Mg Tablet PO Not Given Q8H JAMAR Pantoprazole Sodium 40 mg 12/12/24 15:00 12/12/24 17:03 Pantoprazole 40 Mg Sdv IVP 40 mg Q24H JAMAR Administration PFSH Acute PFSH: Medical History (Updated 12/12/24 @ 18:04 by Myra Franz MD) CKD (chronic kidney disease) COPD (chronic obstructive pulmonary disease) LEROY on CPAP Diastolic heart failure Essential hypertension Insulin dependent type 2 diabetes mellitus Bilateral leg edema Chronic anemia Pacemaker Acute pancreatitis Sinus pause DELORIS (acute kidney injury) Altered mental status Paranoid Expressive aphasia Anxiety and depression Lives in assisted living facility Rotator cuff tear, right Diabetes mellitus insulin dependent Essential (primary) hypertension Depression due to cerebrovascular accident (CVA) Expressive aphasia Hypomagnesemia Bilateral pneumonia Hyponatremia Hyperkalemia Right humeral fracture Metabolic encephalopathy Resolved Acute delirium Resolved Pneumonia due to COVID-19 virus Resolved Poor social situation Multinodular thyroid Acute embolic stroke Recurrent falls Resolved History of CVA (cerebrovascular accident) Acute hypersomnolence disorder Essential hypertension Wernicke dysphasia Diabetes mellitus with neuropathy Mixed hyperlipidemia Surgical History History of nasal sinusotomy History of cholecystectomy History of tonsillectomy History of repair of rotator cuff History of hysterectomy for indication other than malignancy History of bursectomy Hx of adenoidectomy Status post anal fissurectomy History of colonoscopy Family History Mother CAD (coronary artery disease) Other Asthma Cancer Diabetes Heart disease Hypertension Stroke Social History Smoking and tobacco/nicotine status: former use of tobacco/nicotine Alcohol intake: current Alcohol intake frequency: few times a month Substance/Drug Use: never Vitals/I&O/Wt Last Vital Signs Temp 98.3 F 12/12/24 11:54 Pulse 60 12/12/24 15:30 Resp 24 H 12/12/24 11:54 BP 180/75 12/12/24 15:30 Pulse Ox 95 12/12/24 16:10 O2 Del Method Nasal Cannula 12/12/24 11:54 O2 Flow Rate 2 12/12/24 11:54 FiO2 25 12/12/24 16:10 Weight last 48 hrs Weight 122.47 kg Physical Exam Narrative: Somnolent, no distress PERRLA S1-S2 regular rate and rhythm per report Lungs with bilateral crackles Abdomen soft nontender per report Has pedal edema Urinary Catheter Management: Kent Latex: Cath Placed During This Visit: yes Urinary Catheter Date of Insertion: 12/12/24 Urinary Catheter Time of Insertion: 17:24 Kent: Cath Placed During This Visit: yes Reason for Continuing Indwelling Catheter: Other Urinary Catheter Date of Insertion: 11/20/24 Data 12/12/24 12:11 12/12/24 12:11 A&P Assessment and plan (1) ESRD (end stage renal disease) on dialysis: 1. End-stage renal disease: Recently initiated on dialysis via tunneled catheter, patient now presents with respiratory distress and volume overload. It is unclear if patient has received dialysis as outpatient since discharge from hospital recently. HD today and ultrafiltration as tolerated 2. History of hypertension, resume home medications 3. Anemia: Will order JEMAL 4. Acute on chronic respiratory failure, on BiPAP, HD as above 5. History of diabetes Patient evaluated using audiovisual cart. Time spent 40 minutes. PDMP PDMP Reviewed: Not Reviewed Coding Level of Care Code Acute Code for Chg Fwd Diagnoses ESRD (end stage renal disease) on dialysis N18.6; Z99.2
[2024-12-12] MEDS: docusate sodium 100 mg Capsule PO (18:28)
[2024-12-12] MEDS: metoprolol tartrate 25 mg Tablet PO (18:28)
[2024-12-12 20:26] LABS: Adenovirus Not Detected (NOT DETECT); Chlamydia Pneumoniae Not Detected (NOT DETECT); Coronavirus 229E,HKU1,NL63,OC4 Not Detected (NOT DETECT); Human Metapneumovirus Not Detected (NOT DETECT); Human Rhinovirus/Enterovirus Not Detected (NOT DETECT); Influenza A Not Detected (NOT DETECT); Influenza A H1 Not Detected (NOT DETECT); Influenza A H1-2009 Not Detected (NOT DETECT); Influenza A H3 Not Detected (NOT DETECT); Influenza B Not Detected (NOT DETECT); Mycoplasma Pneumoniae Not Detected (NOT DETECT); Parainfluenza Virus Type 1 Not Detected (NOT DETECT); Parainfluenza Virus Type 2 Not Detected (NOT DETECT); Parainfluenza Virus Type 3 Not Detected (NOT DETECT); Parainfluenza Virus Type 4 Not Detected (NOT DETECT); Respiratory Syncytial Virus A Not Detected (NOT DETECT); Respiratory Syncytial Virus B Not Detected (NOT DETECT); SARS-COV-2 Not Detected (NOT DETECT)
--- NOTE | 2024-12-12 22:24 | PC.NURSE ---
Pt mumbles when spoken to, unable to follow directions, thus far nonverbal. Spoke with Dr. Brown regarding PO meds, approved holding at this time due to AMS.
[2024-12-13] VITALS (23 sets, daily range): BP systolic 128–161; BP diastolic 59–86; PULSE 60–75; RESP 15–24; TEMP 36.1–37; O2SAT 93–100
[2024-12-13 04:37] LABS: Basophils # 0.1 10^3/uL (0.0-0.1); Basophils % 0.8 %; Eosinophils # 0.4 10^3/uL (0.0-0.8); Hematocrit 26.5 % (36-47); Lymphocytes # 0.9 10^3/uL (0.8-4.8); Lymphocytes % 10.4 %; Mean Corpuscular HGB Conc 27.5 g/dL (30-55); Mean Corpuscular Hemoglobin 24.7 pg (27-33); Mean Corpuscular Volume 89.5 fl (85-98); Mean Platelet Volume 9.6 fL (7.4-10.4); Monocytes # 0.8 10^3/uL (0.2-0.9); Monocytes % 9.5 %; Neutrophils # 6.09 10^3/uL (1.8-7.7); Neutrophils % 73.6 %; Nucleated Red Blood Cells % 0 %; Platelet Count 188 10^3/cmm (157-399); Red Blood Count 2.96 10^6/uL (3.85-5.65); Red Cell Distribution Width 17.7 % (12.1-15.1); White Blood Count 8.28 10^3/uL (3.29-11.43)
[2024-12-13 05:11] LABS: Alanine Aminotransferase 219 U/L (0-33); Albumin Level 3.1 g/dL (3.5-5.2); Alkaline Phosphatase 99 U/L (35-105); Aspartate Amino Transferase 134 U/L (0-32); Blood Urea Nitrogen 11 mg/dL (8-23); Calcium 8.4 mg/dL (8.5-10.5); Carbon Dioxide 29 mmol/L (22-29); Chloride 99 mmol/L (98-107); Creatinine Clr Calc Pharmacy 34.1884; Globulin 2.3 g/dL (1.3-4.6); Glomerular Filtration Rate 23.7 mL/min (90-130); Glucose 150 mg/dL (65-115); Magnesium 1.9 mg/dL (1.7-2.3); Osmolality Calculated 286 mOsm/kg (285-295); Sodium 137 mmol/L (136-145); Thyroid Stimulating Hormone 1.08 uIU/mL (0.27-4.20); Total Bilirubin 0.4 mg/dL (0.15-1.2); Total Protein 5.4 g/dL (6.6-8.7)
[2024-12-13 05:12] LABS: NT Pro B Type Natriuretic Pept 26899 pg/mL (0-125)
[2024-12-13] MEDS: heparin 5,000 unit/mL INJ 1 mL 5000 UNIT SUBCUT ×3 (07:17→23:41)
[2024-12-13] MEDS: hyDRALAzine 25 mg Tablet PO ×3 (07:17→23:41)
[2024-12-13 07:25] LABS: Glucose Point of Care 146 mg/dL (70-110)
[2024-12-13] MEDS: docusate sodium 100 mg Capsule PO ×2 (08:37→17:16)
[2024-12-13] MEDS: allopurinol 300 mg Tablet PO (08:37)
[2024-12-13] MEDS: metoprolol tartrate 25 mg Tablet PO ×2 (08:38→17:16)
[2024-12-13] MEDS: clopidogrel 75 mg Tablet PO (08:38)
[2024-12-13 11:22] LABS: Glucose Point of Care 141 mg/dL (70-110)
--- NOTE | 2024-12-13 13:50 | PC.NURSE ---
Report given to MILA Holland. Transferred to room 261 via bed.
[2024-12-13] MEDS: pantoprazole 40 mg SDV IVP (14:40)
--- NOTE | 2024-12-13 15:18 | P.PN_ITS ---
Vitals/I&O/Wt Last Vital Signs Temp 98.5 F 12/13/24 13:55 Pulse 68 12/13/24 13:55 Resp 15 12/13/24 13:55 BP 147/78 12/13/24 13:55 Pulse Ox 96 12/13/24 13:55 O2 Del Method Nasal Cannula 12/13/24 13:55 O2 Flow Rate 2 12/13/24 13:55 FiO2 25 12/12/24 16:10 12/13/24 12/13/24 12/13/24 06:59 14:59 22:59 Intake Total 60 / 60 Balance 60 / 60 Weight last 48 hrs Weight 118.5 kg Weight 118 kg Weight 122 kg Weight 122.47 kg Physical Exam 2 Narrative: She is drowsy, lethargic, opening eyes to sternal rub Chest clear to ascultation CVS normal heart sounds Abdomen- soft, distended, normal bowel sounds Ext b/l 4+ pitting edema present, lower leg b/l wound present. Urinary Catheter Management: Kent Latex: Cath Placed During This Visit: yes Reason for Continuing Indwelling Catheter: Accurate Measurement of Urinary Output in Critically Ill Patients Urinary Catheter Date of Insertion: 12/12/24 Urinary Catheter Time of Insertion: 17:24 Kent: Cath Placed During This Visit: yes Reason for Continuing Indwelling Catheter: Accurate Measurement of Urinary Output in Critically Ill Patients Urinary Catheter Date of Insertion: 11/20/24 Data 12/13/24 04:21 12/13/24 04:21 Micro: Microbiology 12/12/24 12:44 Urine Culture - Preliminary Urine,Clean Catch A&P Assessment and plan (1) Acute hypercapnic respiratory failure: (2) Fluid overload: (3) Diabetes mellitus with neuropathy: Qualifiers: Diabetes mellitus type: type 2 Diabetes mellitus ferry terminal agent insulin use: with penitentiary use Qualified Code(s): E11.40 - Type 2 diabetes mellitus with diabetic neuropathy, unspecified; Z79.4 - [facility] (current) use of insulin (4) CHF (congestive heart failure): (5) Mixed hyperlipidemia: (6) Hemodialysis status: (7) Elevated liver function tests: Plan Hilda Wallace is a 64 year old female with past medical history of Warnicke's encephalopathy, CVA, type 2 diabetes mellitus, dysphagia, hypothyroidism, obstructive sleep apnea, hypertension, pacemaker implantation for severe bradycardia, depression, anxiety, paranoia presents today from [facility] for altered mental status. As per the [place] records she was saturating 50% on room air and altered. Called [facility] to obtain further information but no answer. She was recently admitted to the hospital from 11/20-12/03 for AMS and UTI. Started on iv zosyn. Also had worsening renal function, eventually requiring a tunneled catheter for HD on TTS. Acute hypoxic and hypercapnic respiratory failure- likely secondary to fluid overload. Will R/O infectious etiology. Cannot rule out viral prodrome. Cannot rule out polypharmacy. Patient back to baseline mentation today. Saturating well on baseline oxygen supplementation. Respiratory viral panel negative. Low concerns for bacterial infection for now. Patient has a history of UTI in the past. Currently no leukocytosis. Has remained afebrile. Continue to hold off on IV antibiotics. Certainly cannot rule out polypharmacy. For now we will restart home chronic medications including bupropion, lamotrigine 3 times daily. Will hold off on trazodone for now. Hypertension: Goal blood pressure less than 140/90 mmHg. Continue with home dose of hydralazine 25 mg, 3 times daily, metoprolol 25 twice daily. Will uptitrate as for goal blood pressure. CKD: Continue with home dialysis sessions. Nephrology on board. Anemia: Hemoglobin stable. Type 2 diabetes mellitus: Continue with home Lantus 10 units daily. Start on insulin sliding scale at mild dose protocol. Transfer to [facility] floor. Bedside swallow. If doing okay will start on renal dialysis diabetic diet. Heparin for DVT prophylaxis Protonix for PUD prophylaxis. PDMP PDMP Reviewed: Not Reviewed Attestations 2 Medical Necessity Statement*: Requires further hospitalization for management of acute on chronic hypoxic and hypercapnic respiratory failure setting of fluid overload in a patient with end- stage renal disease on hemodialysis, metabolic encephalopathy. Diagnoses Acute hypercapnic respiratory failure J96.02 Fluid overload E87.70 Type 2 diabetes mellitus with diabetic neuropathy, with long-term current use of insulin E11.40; Z79.4 Diabetes mellitus type: type 2 Diabetes mellitus penitentiary insulin use: with penitentiary use CHF (congestive heart failure) I50.9 Mixed hyperlipidemia E78.2 Hemodialysis status Z99.2 Elevated liver function tests R79.89
[2024-12-13 16:55] LABS: Glucose Point of Care 126 mg/dL (70-110)
--- NOTE | 2024-12-13 17:20 | P.PN_ITS ---
Subjective 2 Subjective: s/p HD yesterday Medications: Reviewed: Yes Vitals/I&O/Wt Last Vital Signs Temp 98.6 F 12/13/24 15:43 Pulse 61 12/13/24 15:43 Resp 15 12/13/24 15:43 BP 150/77 12/13/24 15:43 Pulse Ox 97 12/13/24 15:43 O2 Del Method Nasal Cannula 12/13/24 15:43 O2 Flow Rate 2 12/13/24 15:43 FiO2 12/12/24 16:10 12/13/24 12/13/24 12/13/24 06:59 14:59 22:59 Intake Total 60 / 60 Balance 60 / 60 Weight last 48 hrs Weight 118.5 kg Weight 118 kg Weight 122 kg Weight 122.47 kg Physical Exam 2 Narrative: Somnolent, no distress PERRLA S1-S2 regular rate and rhythm per report Lungs with bilateral crackles Abdomen soft nontender per report Has pedal edema Urinary Catheter Management: Kent Latex: Cath Placed During This Visit: yes Reason for Continuing Indwelling Catheter: Accurate Measurement of Urinary Output in Critically Ill Patients Urinary Catheter Date of Insertion: 12/12/24 Urinary Catheter Time of Insertion: 17:24 Kent: Cath Placed During This Visit: yes Reason for Continuing Indwelling Catheter: Accurate Measurement of Urinary Output in Critically Ill Patients Urinary Catheter Date of Insertion: 11/20/24 Data 12/13/24 04:21 12/13/24 04:21 Micro: Microbiology 12/12/24 12:44 Urine Culture - Preliminary Urine,Clean Catch A&P Assessment and plan (1) ESRD (end stage renal disease) on dialysis: 1. End-stage renal disease: Recently initiated on dialysis via tunneled catheter, patient now presents with respiratory distress and volume overload.. HD done yesterday and ultrafiltration as tolerated Next HD in AM 2. History of hypertension, resume home medications 3. Anemia: Will order JEMAL 4. Acute on chronic respiratory failure, on BiPAP, HD as above 5. History of diabetes Patient evaluated using audiovisual cart. Time spent 40 minutes. PDMP PDMP Reviewed: Not Reviewed Attestations 2 Medical Necessity Statement*: per grzegorz Coding Level of Care Code Acute Code for Chg Fwd Diagnoses ESRD (end stage renal disease) on dialysis N18.6; Z99.2
[2024-12-13 21:13] LABS: Glucose Point of Care 163 mg/dL (70-110)
[2024-12-13] MEDS: atorvastatin 40 mg Tablet PO (21:18)
[2024-12-13] MEDS: lamoTRIgine 100 mg Tablet PO (21:18)
[2024-12-13] MEDS: insulin lispro 100 unit/1 mL SUBCUT (21:45)
[2024-12-14] VITALS (12 sets, daily range): BP systolic 126–171; BP diastolic 54–78; PULSE 56–88; RESP 16–18; TEMP 36.4–37; O2SAT 93–98
[2024-12-14 06:01] LABS: Basophils # 0.1 10^3/uL (0.0-0.1); Basophils % 0.6 %; Eosinophils # 0.4 10^3/uL (0.0-0.8); Eosinophils % 5.2 %; Hematocrit 25.7 % (36-47); Lymphocytes # 0.8 10^3/uL (0.8-4.8); Lymphocytes % 10.2 %; Mean Corpuscular Hemoglobin 25.2 pg (27-33); Mean Corpuscular Volume 89.9 fl (85-98); Mean Platelet Volume 9.3 fL (7.4-10.4); Monocytes # 0.7 10^3/uL (0.2-0.9); Monocytes % 8.7 %; Neutrophils # 5.76 10^3/uL (1.8-7.7); Neutrophils % 74.5 %; Nucleated Red Blood Cells % 0 %; Platelet Count 213 10^3/cmm (157-399); Red Blood Count 2.86 10^6/uL (3.85-5.65); Red Cell Distribution Width 17.8 % (12.1-15.1); White Blood Count 7.73 10^3/uL (3.29-11.43)
[2024-12-14] MEDS: buPROPion XL (24 HR) 150 mg Tablet PO (06:22)
[2024-12-14] MEDS: heparin 5,000 unit/mL INJ 1 mL 5000 UNIT SUBCUT ×3 (06:22→22:05)
[2024-12-14] MEDS: hyDRALAzine 25 mg Tablet PO (06:22)
[2024-12-14 06:24] LABS: Glucose Point of Care 158 mg/dL (70-110)
[2024-12-14 06:29] LABS: Alanine Aminotransferase 222 U/L (0-33); Albumin Level 3.1 g/dL (3.5-5.2); Alkaline Phosphatase 110 U/L (35-105); Aspartate Amino Transferase 111 U/L (0-32); Blood Urea Nitrogen 17 mg/dL (8-23); Calcium 8.4 mg/dL (8.5-10.5); Carbon Dioxide 30 mmol/L (22-29); Chloride 95 mmol/L (98-107); Creatinine Clr Calc Pharmacy 26.6613; Globulin 2.3 g/dL (1.3-4.6); Glomerular Filtration Rate 17.7 mL/min (90-130); Glucose 133 mg/dL (65-115); Osmolality Calculated 281 mOsm/kg (285-295); Sodium 134 mmol/L (136-145); Total Bilirubin 0.4 mg/dL (0.15-1.2); Total Protein 5.4 g/dL (6.6-8.7)
--- NOTE | 2024-12-14 09:22 | P.PN_ITS ---
Subjective 2 Subjective: getting hD Medications: Reviewed: Yes Vitals/I&O/Wt Last Vital Signs Temp 98.6 F 12/14/24 08:00 Pulse 70 12/14/24 08:16 Resp 16 12/14/24 08:16 BP 154/74 12/14/24 08:00 Pulse Ox 96 12/14/24 08:16 O2 Del Method Nasal Cannula 12/14/24 08:16 O2 Flow Rate 2 12/14/24 08:16 FiO2 12/12/24 16:10 12/13/24 12/14/24 12/14/24 22:59 06:59 14:59 Intake Total 240 / 300 478 / 478 Output Total 100 / 100 350 / 450 Balance 140 / 200 -350 / -150 478 / 478 Weight last 48 hrs Weight 118.529 kg Weight 118.5 kg Weight 118 kg Weight 122 kg Weight 122.47 kg Physical Exam 2 Narrative: awake , alert , no distress PERRLA S1-S2 regular rate and rhythm per report Lungs with bilateral crackles Abdomen soft nontender per report Has pedal edema Urinary Catheter Management: Kent Latex: Cath Placed During This Visit: yes Reason for Continuing Indwelling Catheter: Accurate Measurement of Urinary Output in Critically Ill Patients Urinary Catheter Date of Insertion: 12/12/24 Urinary Catheter Time of Insertion: 17:24 Kent: Cath Placed During This Visit: yes Reason for Continuing Indwelling Catheter: Chronic Indwelling Urinary Catheter on Admission Urinary Catheter Date of Insertion: 11/20/24 Data 12/14/24 05:14 12/14/24 05:14 Micro: Microbiology 12/12/24 12:44 Urine Culture - Preliminary Urine,Clean Catch A&P Assessment and plan (1) ESRD (end stage renal disease) on dialysis: 1. End-stage renal disease: Recently initiated on dialysis via tunneled catheter, patient now presents with respiratory distress and volume overload.. HD today and ultrafiltration as tolerated 2. History of hypertension, resume home medications 3. Anemia: Will order JEMAL 4. Acute on chronic respiratory failure, on BiPAP, HD as above 5. History of diabetes Patient evaluated using audiovisual cart. Time spent 40 minutes. PDMP PDMP Reviewed: Not Reviewed Attestations 2 Medical Necessity Statement*: per [facility] Coding Level of Care Code Acute Code for Chg Fwd Diagnoses ESRD (end stage renal disease) on dialysis N18.6; Z99.2
[2024-12-14] MEDS: heparin, porcine 1,000 unit/mL INJ 10 mL 1000 UNIT IV (09:45)
[2024-12-14] MEDS: insulin glargine 100 units/1 mL 10 UNIT SUBCUT (10:07)
[2024-12-14] MEDS: insulin lispro 100 unit/1 mL SUBCUT ×3 (10:07→20:58)
[2024-12-14] MEDS: epoetin alfa-epbx 10,000 unit/ml SDV (ESRD) 10000 UNIT SUBCUT (10:10)
--- NOTE | 2024-12-14 11:01 | PC.OT ---
OT EVALUATION ATTEMPTED; PATIENT IN DIALYSIS AT THIS TIME.
[2024-12-14] MEDS: heparin, porcine 1,000 unit/mL INJ 10 mL 10000 UNIT INTRACATH (11:12)
--- NOTE | 2024-12-14 12:40 | PM.PN ---
Subjective Subjective: No acute events overnight. Patient is back to her baseline mentation. Denies any nausea, vomiting, headache. Getting dialysis today. Medications: Reviewed: Yes Vitals/I&O/Wt Last Vital Signs Temp 97.9 F 12/14/24 11:18 Pulse 66 12/14/24 11:18 Resp 18 12/14/24 11:18 BP 163/69 12/14/24 11:18 Pulse Ox 96 12/14/24 08:16 O2 Del Method Nasal Cannula 12/14/24 08:16 O2 Flow Rate 2 12/14/24 08:16 FiO2 12/12/24 16:10 12/13/24 12/14/24 12/14/24 22:59 06:59 14:59 Intake Total 240 / 300 478 / 478 Output Total 100 / 100 350 / 450 Balance 140 / 200 -350 / -150 478 / 478 Weight last 48 hrs Weight 118.529 kg Weight 118.5 kg Weight 118 kg Weight 122 kg Physical Exam Narrative: General: No acute distress, AO x3, continues to have baseline word salad, pallor present HEENT: PERRLA, pupils bilaterally equal and reactive Chest: Normal vesicular breath sounds, no added sounds, equal good air entry bilaterally CVS: S1-S2 irregularly irregular, soft pansystolic murmur at apex, no tachycardia, no gallops, no rubs Abdomen: Soft, nontender, no organomegaly, bowel sounds present Neuro: No focal deficits, no facial deformity, AO x3, power 5/5 in all limbs Urinary Catheter Management: Kent Latex: Cath Placed During This Visit: yes Reason for Continuing Indwelling Catheter: Accurate Measurement of Urinary Output in Critically Ill Patients Urinary Catheter Date of Insertion: 12/12/24 Urinary Catheter Time of Insertion: 17:24 Kent: Cath Placed During This Visit: yes Reason for Continuing Indwelling Catheter: Chronic Indwelling Urinary Catheter on Admission Urinary Catheter Date of Insertion: 11/20/24 Data 12/14/24 05:14 12/14/24 05:14 Micro: Microbiology 12/12/24 12:44 Urine Culture - Final Urine,Clean Catch A&P Assessment and plan (1) Acute hypercapnic respiratory failure: (2) Fluid overload: (3) CHF (congestive heart failure): Qualifiers: Heart failure chronicity: acute on chronic Heart failure type: diastolic Qualified Code(s): I50.33 - Acute on chronic diastolic (congestive) heart failure (4) Hemodialysis status: (5) Diabetes mellitus with neuropathy: Qualifiers: Diabetes mellitus ferry terminal agent insulin use: with halfway use Diabetes mellitus type: type 2 Qualified Code(s): E11.40 - Type 2 diabetes mellitus with diabetic neuropathy, unspecified; Z79.4 - middle or intermediate school principal (current) use of insulin (6) Mixed hyperlipidemia: (7) Elevated liver function tests: Plan Hilda Wallace is a 64 year old female with past medical history of Warnicke's encephalopathy, CVA, type 2 diabetes mellitus, dysphagia, hypothyroidism, obstructive sleep apnea, hypertension, pacemaker implantation for severe bradycardia, depression, anxiety, paranoia presents today from [facility] for altered mental status. As per the [place] records she was saturating 50% on room air and altered. Called [facility] to obtain further information but no answer. She was recently admitted to the hospital from 11/20-12/03 for AMS and UTI. Started on iv zosyn. Also had worsening renal function, eventually requiring a tunneled catheter for HD on TTS. Altered mental status due to acute on chronic hypoxic and hypercapnic respiratory failure-most likely secondary to fluid overload. Will R/O infectious etiology. Cannot rule out viral prodrome. Cannot rule out polypharmacy. Patient back to baseline mentation today. Saturating well on baseline oxygen supplementation. Respiratory viral panel negative. Low concerns for bacterial infection for now. Patient has a history of UTI in the past. Currently no leukocytosis. Has remained afebrile. Continue to hold off on IV antibiotics. Certainly cannot rule out polypharmacy. For now we will restart home chronic medications including bupropion, lamotrigine 3 times daily. Will hold off on trazodone for now. Hypertension: Goal blood pressure less than 140/90 mmHg. Blood pressure elevated. Increase home dose of hydralazine to 50 mg 3 times a day. Continue home dose of [place] 25 mg twice daily. Will uptitrate as for goal blood pressure. CKD: Continue with home dialysis sessions. Nephrology on board. Anemia: Hemoglobin stable. Monitor daily. Target hemoglobin more than 7. Type 2 diabetes mellitus: Continue with home Lantus 10 units daily. Start on insulin sliding scale at mild dose protocol. Renal diabetic dialysis diet. Heparin for DVT prophylaxis Protonix for PUD prophylaxis. Discharge plan: Plan to discharge back to SNF once authorization is approved. Patient requesting if she can go to a different [facility] or back to her assisted living. Will request PT notes to be forwarded to the assisted living to see if she qualifies with going back. As per case management patient has been declined by multiple SNF's on a recent discharge 2 weeks ago. PDMP PDMP Reviewed: Not Reviewed Attestations Medical Necessity Statement*: Requires further hospitalization while safe discharge planning is sought in a patient admitted for altered mental status in setting of hypercapnic respiratory failure due to decompensated acute on chronic diastolic heart failure, uncontrolled hypertension, CKD on hemodialysis Diagnoses Acute hypercapnic respiratory failure J96.02 Fluid overload E87.70 Acute on chronic diastolic congestive heart failure I50.33 Heart failure chronicity: acute on chronic Heart failure type: diastolic Hemodialysis status Z99.2 Type 2 diabetes mellitus with diabetic neuropathy, with long-term current use of insulin E11.40; Z79.4 Diabetes mellitus ferry terminal agent insulin use: with halfway use Diabetes mellitus type: type 2 Mixed hyperlipidemia E78.2 Elevated liver function tests R79.89
[2024-12-14 12:42] LABS: Glucose Point of Care 133 mg/dL (70-110)
[2024-12-14] MEDS: metoprolol tartrate 25 mg Tablet PO ×2 (13:03→17:33)
[2024-12-14] MEDS: allopurinol 300 mg Tablet PO (13:04)
[2024-12-14] MEDS: clopidogrel 75 mg Tablet PO (13:04)
[2024-12-14] MEDS: docusate sodium 100 mg Capsule PO ×2 (13:04→17:33)
[2024-12-14] MEDS: lamoTRIgine 100 mg Tablet PO ×2 (15:21→20:58)
[2024-12-14] MEDS: hyDRALAzine 25 mg Tablet 50 MG PO ×2 (15:21→20:59)
[2024-12-14] MEDS: pantoprazole 40 mg SDV IVP (15:21)
[2024-12-14 16:33] LABS: Glucose Point of Care 223 mg/dL (70-110)
[2024-12-14 20:45] LABS: Glucose Point of Care 199 mg/dL (70-110)
[2024-12-14] MEDS: atorvastatin 40 mg Tablet PO (20:58)
[2024-12-14] MEDS: magnesium hydroxide 30 mL UDC PO (20:58)
[2024-12-14] MEDS: polyethylene glycol 3350 Pkt 17 gm PO (22:58)
[2024-12-15] VITALS (10 sets, daily range): BP systolic 157–174; BP diastolic 69–83; PULSE 59–76; RESP 15–20; TEMP 36.4–37; O2SAT 94–99
[2024-12-15 06:04] LABS: Basophils % 0.6 %; Eosinophils # 0.3 10^3/uL (0.0-0.8); Eosinophils % 5.2 %; Hematocrit 26.3 % (36-47); Lymphocytes # 0.9 10^3/uL (0.8-4.8); Mean Corpuscular HGB Conc 28.9 g/dL (30-55); Mean Corpuscular Hemoglobin 25.8 pg (27-33); Mean Corpuscular Volume 89.2 fl (85-98); Mean Platelet Volume 9.2 fL (7.4-10.4); Monocytes # 0.7 10^3/uL (0.2-0.9); Monocytes % 10.1 %; Neutrophils # 4.55 10^3/uL (1.8-7.7); Neutrophils % 69.4 %; Nucleated Red Blood Cells # 0.1 /100WBC; Nucleated Red Blood Cells % 0.9 %; Platelet Count 262 10^3/cmm (157-399); Red Blood Count 2.95 10^6/uL (3.85-5.65); Red Cell Distribution Width 17.9 % (12.1-15.1); White Blood Count 6.55 10^3/uL (3.29-11.43)
[2024-12-15] MEDS: heparin 5,000 unit/mL INJ 1 mL 5000 UNIT SUBCUT ×3 (06:18→21:22)
[2024-12-15] MEDS: buPROPion XL (24 HR) 150 mg Tablet PO (06:18)
[2024-12-15 06:47] LABS: Glucose Point of Care 218 mg/dL (70-110)
[2024-12-15 06:48] LABS: Alanine Aminotransferase 173 U/L (0-33); Alkaline Phosphatase 114 U/L (35-105); Aspartate Amino Transferase 61 U/L (0-32); Blood Urea Nitrogen 16 mg/dL (8-23); Calcium 8.3 mg/dL (8.5-10.5); Carbon Dioxide 26 mmol/L (22-29); Chloride 95 mmol/L (98-107); Creatinine Clr Calc Pharmacy 27.9478; Globulin 2.5 g/dL (1.3-4.6); Glomerular Filtration Rate 19.4 mL/min (90-130); Glucose 199 mg/dL (65-115); Osmolality Calculated 281 mOsm/kg (285-295); Sodium 132 mmol/L (136-145); Total Bilirubin 0.4 mg/dL (0.15-1.2); Total Protein 5.5 g/dL (6.6-8.7)
[2024-12-15] MEDS: insulin lispro 100 unit/1 mL SUBCUT ×4 (08:35→21:23)
[2024-12-15] MEDS: allopurinol 300 mg Tablet PO (08:36)
[2024-12-15] MEDS: metoprolol tartrate 25 mg Tablet PO ×2 (08:36→17:45)
[2024-12-15] MEDS: clopidogrel 75 mg Tablet PO (08:36)
[2024-12-15] MEDS: hyDRALAzine 25 mg Tablet 50 MG PO (08:36)
[2024-12-15] MEDS: docusate sodium 100 mg Capsule PO ×2 (08:36→17:45)
[2024-12-15] MEDS: lamoTRIgine 100 mg Tablet PO ×3 (08:37→21:23)
[2024-12-15] MEDS: insulin glargine 100 units/1 mL 10 UNIT SUBCUT (08:38)
--- NOTE | 2024-12-15 10:09 | P.PN_ITS ---
Subjective 2 Subjective: No new c/o Medications: Reviewed: Yes Vitals/I&O/Wt Last Vital Signs Temp 97.9 F 12/15/24 07:46 Pulse 76 12/15/24 08:23 Resp 16 12/15/24 08:23 BP 168/83 12/15/24 07:46 Pulse Ox 98 12/15/24 08:23 O2 Del Method Nasal Cannula 12/15/24 08:23 O2 Flow Rate 2 12/15/24 08:23 FiO2 25 12/12/24 16:10 12/14/24 12/15/24 12/15/24 22:59 06:59 14:59 Intake Total 860 / 1338 240 / 1578 480 / 480 Output Total 4165 / 4165 200 / 4365 Balance -3305 / -2827 40 / -2787 480 / 480 Weight last 48 hrs Weight 112.633 kg Weight 112.6 kg Weight 118.529 kg Physical Exam 2 Narrative: awake , alert , no distress PERRLA S1-S2 regular rate and rhythm per report Lungs with bilateral crackles Abdomen soft nontender per report Has pedal edema Urinary Catheter Management: Kent Latex: Cath Placed During This Visit: yes Reason for Continuing Indwelling Catheter: Accurate Measurement of Urinary Output in Critically Ill Patients Urinary Catheter Date of Insertion: 12/12/24 Urinary Catheter Time of Insertion: 17:24 Kent: Cath Placed During This Visit: yes Reason for Continuing Indwelling Catheter: Acute Urinary Retention or Obstruction Urinary Catheter Date of Insertion: 11/20/24 Data 12/15/24 05:38 12/15/24 05:38 Micro: Microbiology 12/12/24 12:44 Urine Culture - Final Urine,Clean Catch A&P Assessment and plan (1) ESRD (end stage renal disease) on dialysis: 1. End-stage renal disease: Recently initiated on dialysis via tunneled catheter, patient now presents with respiratory distress and volume overload.. HD done yesterday and ultrafiltration as tolerated 2. History of hypertension, resume home medications 3. Anemia: Will order JEMAL 4. Acute on chronic respiratory failure,improved 5. History of diabetes Patient evaluated using audiovisual cart. Time spent 40 minutes. PDMP PDMP Reviewed: Not Reviewed Attestations 2 Medical Necessity Statement*: per medicine Coding Level of Care Code Acute Code for Chg Fwd Diagnoses ESRD (end stage renal disease) on dialysis N18.6; Z99.2
--- NOTE | 2024-12-15 10:27 | PC.SOCIAL ---
IMM Update Updated pt's guardian on IMM. No questions voiced. Provided pt a copy. Initialed, dated, & timed a copy & placed in chart.
[2024-12-15] MEDS: epoetin alfa-epbx 10,000 unit/ml SDV (ESRD) 10000 UNIT SUBCUT (11:32)
[2024-12-15 11:46] LABS: Glucose Point of Care 280 mg/dL (70-110)
--- NOTE | 2024-12-15 13:56 | P.PN_ITS ---
Subjective 2 Subjective: No acute vents overnight. Patient remains hemodynamically stable and afebrile. Blood pressure slightly elevated today. Sitting up in chair. He did not sleep well overnight. States she is feeling tired. Medications: Reviewed: Yes Vitals/I&O/Wt Last Vital Signs Temp 97.7 F 12/15/24 12:00 Pulse 60 12/15/24 12:00 Resp 18 12/15/24 12:00 BP 157/69 12/15/24 12:00 Pulse Ox 98 12/15/24 12:00 O2 Del Method Nasal Cannula 12/15/24 12:00 O2 Flow Rate 2 12/15/24 08:23 FiO2 25 12/12/24 16:10 12/14/24 12/15/24 12/15/24 22:59 06:59 14:59 Intake Total 860 / 1338 240 / 1578 840 / 840 Output Total 4165 / 4165 200 / 4365 Balance -3305 / -2827 40 / -2787 840 / 840 Weight last 48 hrs Weight 112.633 kg Weight 112.6 kg Weight 118.529 kg Physical Exam 2 Narrative: General: No acute distress, AO x3, continues to have baseline word salad, pallor present HEENT: PERRLA, pupils bilaterally equal and reactive Chest: Normal vesicular breath sounds, no added sounds, equal good air entry bilaterally CVS: S1-S2 irregularly irregular, soft pansystolic murmur at apex, no tachycardia, no gallops, no rubs Abdomen: Soft, nontender, no organomegaly, bowel sounds present Neuro: No focal deficits, no facial deformity, AO x3, power 5/5 in all limbs Urinary Catheter Management: Kent Latex: Cath Placed During This Visit: yes Reason for Continuing Indwelling Catheter: Accurate Measurement of Urinary Output in Critically Ill Patients Urinary Catheter Date of Insertion: 12/12/24 Urinary Catheter Time of Insertion: 17:24 Kent: Cath Placed During This Visit: yes Reason for Continuing Indwelling Catheter: Acute Urinary Retention or Obstruction Urinary Catheter Date of Insertion: 11/20/24 Data 12/15/24 05:38 12/15/24 05:38 Micro: Microbiology 12/12/24 12:44 Urine Culture - Final Urine,Clean Catch A&P Assessment and plan (1) Acute hypercapnic respiratory failure: (2) Fluid overload: (3) CHF (congestive heart failure): (4) Hemodialysis status: (5) Diabetes mellitus with neuropathy: (6) Mixed hyperlipidemia: (7) Elevated liver function tests: Plan Hilda Wallace is a 64 year old female with past medical history of Warnicke's encephalopathy, CVA, type 2 diabetes mellitus, dysphagia, hypothyroidism, obstructive sleep apnea, hypertension, pacemaker implantation for severe bradycardia, depression, anxiety, paranoia presents today from [facility] for altered mental status. As per the [place] records she was saturating 50% on room air and altered. Called [facility] to obtain further information but no answer. She was recently admitted to the hospital from 11/20-12/03 for AMS and UTI. Started on iv zosyn. Also had worsening renal function, eventually requiring a tunneled catheter for HD on TTS. Altered mental status due to acute on chronic hypoxic and hypercapnic respiratory failure-most likely secondary to fluid overload. Will R/O infectious etiology. Cannot rule out viral prodrome. Cannot rule out polypharmacy. Patient back to baseline mentation today. Saturating well on baseline oxygen supplementation. Respiratory viral panel negative. Low concerns for bacterial infection for now. Patient has a history of UTI in the past. Currently no leukocytosis. Has remained afebrile. Continue to hold off on IV antibiotics. Certainly cannot rule out polypharmacy. For now we will restart home chronic medications including bupropion, lamotrigine 3 times daily. Will hold off on trazodone for now. Hypertension: Goal blood pressure less than 140/90 mmHg. Blood pressure elevated. Increase home dose of hydralazine to 50 mg 3 times a day. Continue home dose of [place] 25 mg twice daily. Will uptitrate as for goal blood pressure. CKD: Continue with home dialysis sessions. Nephrology on board. Anemia: Hemoglobin stable. Monitor daily. Target hemoglobin more than 7. Type 2 diabetes mellitus: Continue with home Lantus 10 units daily. Start on insulin sliding scale at mild dose protocol. Renal diabetic dialysis diet. Heparin for DVT prophylaxis Protonix for PUD prophylaxis. Plan for the day: Goal blood pressure less than 140/90 mmHg. Blood pressure slightly elevated. Increase hydralazine to 75 mg 3 times daily. Continue other antihypertensive as before. Continue other psych medications as before. Holding off on trazodone. Not able to get Lunesta as not available in formulary. Switch to melatonin 3 mg p.o. bedtime. Hemoglobin stable at 7.3. Plan to transfuse 1 unit of PRBC around dialysis which will be as per schedule on . Check Lamictal level Discharge plan: Plan to discharge back to SNF after dialysis in next 24 hours the patient remains hemodynamically stable. PDMP PDMP Reviewed: Not Reviewed Attestations 2 Medical Necessity Statement*: Requires further hospitalization for management of anemia requiring blood transfusion, elevated blood pressures in a patient with concerns for end-stage renal disease on hemodialysis, diastolic heart failure Diagnoses Acute hypercapnic respiratory failure J96.02 Fluid overload E87.70 Acute on chronic diastolic congestive heart failure I50.33 Heart failure chronicity: acute on chronic Heart failure type: diastolic Hemodialysis status Z99.2 Type 2 diabetes mellitus with diabetic neuropathy, with long-term current use of insulin E11.40; Z79.4 Diabetes mellitus type: type 2 Diabetes mellitus superintendent terminal insulin use: with superintendent terminal use Mixed hyperlipidemia E78.2 Elevated liver function tests R79.89
[2024-12-15] MEDS: pantoprazole 40 mg SDV IVP (15:06)
[2024-12-15] MEDS: hyDRALAzine 25 mg Tablet 75 MG PO ×2 (15:07→21:23)
[2024-12-15 16:28] LABS: Glucose Point of Care 194 mg/dL (70-110)
[2024-12-15] MEDS: MELATONIN 3 MG TABLET PO (21:23)
[2024-12-15] MEDS: atorvastatin 40 mg Tablet PO (21:23)
[2024-12-15] MEDS: mineral oil ENEMA 133 mL PR (23:30)
[2024-12-16] VITALS (9 sets, daily range): BP systolic 143–180; BP diastolic 55–81; PULSE 60–81; RESP 16–20; TEMP 36.2–37.1; O2SAT 94–98
[2024-12-16] MEDS: acetaminophen 325 mg Tablet 650 MG PO (02:52)
[2024-12-16 06:02] LABS: Basophils % 0.5 %; Eosinophils # 0.3 10^3/uL (0.0-0.8); Eosinophils % 3.5 %; Lymphocytes # 0.8 10^3/uL (0.8-4.8); Lymphocytes % 9.6 %; Mean Corpuscular HGB Conc 29.3 g/dL (30-55); Mean Corpuscular Hemoglobin 25.4 pg (27-33); Mean Corpuscular Volume 86.5 fl (85-98); Mean Platelet Volume 9.3 fL (7.4-10.4); Monocytes # 0.7 10^3/uL (0.2-0.9); Monocytes % 8.5 %; Neutrophils # 6.15 10^3/uL (1.8-7.7); Nucleated Red Blood Cells % 0.5 %; Platelet Count 234 10^3/cmm (157-399); Red Blood Count 3.47 10^6/uL (3.85-5.65); Red Cell Distribution Width 17.9 % (12.1-15.1); White Blood Count 8.31 10^3/uL (3.29-11.43)
[2024-12-16] MEDS: heparin 5,000 unit/mL INJ 1 mL 5000 UNIT SUBCUT ×2 (06:15→14:51)
[2024-12-16] MEDS: buPROPion XL (24 HR) 150 mg Tablet PO (06:15)
[2024-12-16 06:19] LABS: Alanine Aminotransferase 125 U/L (0-33); Albumin Level 3.1 g/dL (3.5-5.2); Alkaline Phosphatase 113 U/L (35-105); Anion Gap 14.2 (5-19); Aspartate Amino Transferase 30 U/L (0-32); Blood Urea Nitrogen 19 mg/dL (8-23); Calcium 8.3 mg/dL (8.5-10.5); Carbon Dioxide 26 mmol/L (22-29); Chloride 96 mmol/L (98-107); Creatinine Clr Calc Pharmacy 27.2916; Globulin 2.5 g/dL (1.3-4.6); Glomerular Filtration Rate 18.5 mL/min (90-130); Glucose 211 mg/dL (65-115); Osmolality Calculated 283 mOsm/kg (285-295); Potassium 4.2 mmol/L (3.5-5.1); Sodium 132 mmol/L (136-145); Total Bilirubin 0.5 mg/dL (0.15-1.2); Total Protein 5.6 g/dL (6.6-8.7)
[2024-12-16] MEDS: docusate sodium 100 mg Capsule PO ×2 (08:38→17:30)
[2024-12-16] MEDS: lamoTRIgine 100 mg Tablet PO ×2 (08:38→14:52)
[2024-12-16] MEDS: insulin lispro 100 unit/1 mL SUBCUT ×3 (08:38→17:29)
[2024-12-16] MEDS: clopidogrel 75 mg Tablet PO (08:38)
[2024-12-16] MEDS: allopurinol 300 mg Tablet PO (08:38)
--- NOTE | 2024-12-16 09:05 | P.DS_ITS ---
Discharge Providers Date of Admission: 12/12/24 13:32 Date of Discharge: December 16, 2024 Attending Provider at Admission: Susan Yusuf MD Attending Provider at Discharge: Patel Jones MD Primary Care Provider: Benigno Jennings DO Diagnoses at Discharge Discharge Diagnosis (1) Acute hypercapnic respiratory failure: Status: Acute (2) Fluid overload: Status: Acute (3) CHF (congestive heart failure): Status: Acute Qualifiers: Heart failure chronicity: acute on chronic Heart failure type: diastolic Qualified Code(s): I50.33 - Acute on chronic diastolic (congestive) heart failure (4) Hemodialysis status: Status: Acute (5) Diabetes mellitus with neuropathy: Status: Acute Qualifiers: Diabetes mellitus intermediate school teacher insulin use: with intermediate school teacher use Diabetes m ellitus type: type 2 Qualified Code(s): E11.40 - Type 2 diabetes mellitus with diabetic neuropathy, unspecified; Z79.4 - senior living (current) use of insulin (6) Mixed hyperlipidemia: Status: Chronic (7) Elevated liver function tests: Status: Acute Reason for Visit Reason for Visit: sob Brief History: History as per HPI: Hilda Wallace is a 64 year old female with past medical history of Warnicke's encephalopathy, CVA, type 2 diabetes mellitus, dysphagia, hypothyroidism, obstructive sleep apnea, hypertension, pacemaker implantation for severe bradycardia, depression, anxiety, paranoia presents today from [facility] for altered mental status. As per the [place] records she was saturating 50% on room air and altered. Called [facility] to obtain further information but no answer. She was recently admitted to the hospital from 11/20-12/03 for AMS and UTI. Started on iv zosyn. Also had worsening renal function, eventually requiring a tunneled catheter for HD on TTS. In ER ABG was 7.4/53/80/33/on 2LNC. HB 7.5 AST/ALT 286/241 AP109 BNP 90215 UA could not be done due to insufficient sample. Hospital Course Hospital Course Patient was admitted to the hospital further evaluation and management of acute on chronic hypoxic and hypercapnic respiratory failure, altered mental status in setting of fluid overload, hypertensive urgency. She underwent emergent dialysis. There was also concern for polypharmacy for which her home medications were reconciled. During hospitalization she was found to have uncontrolled hypertension for which her antihypertensives were adjusted. Patient did receive 1 unit of blood transfusion. Her hemoglobin has remained stable. Patient responded well to the treatment. She will be discharged back to [facility] hemodynamically stable condition with advised to continue her home dialysis treatment. Her antihypertensives have been adjusted. She will be discharged on Coreg 6.25 mg twice daily, hydralazine 75 mg 3 times a day. She will also be discharged on Bumex 1 mg oral daily. Her home dose of Lunesta has been discontinued. Physical Exam Narrative: General: No acute distress, AO x3, continues to have baseline word salad, pallor present HEENT: PERRLA, pupils bilaterally equal and reactive Chest: Normal vesicular breath sounds, no added sounds, equal good air entry bilaterally CVS: S1-S2 irregularly irregular, soft pansystolic murmur at apex, no tachycardia, no gallops, no rubs Abdomen: Soft, nontender, no organomegaly, bowel sounds present Neuro: No focal deficits, no facial deformity, AO x3, power 5/5 in all limbs Urinary Catheter Management: Kent Latex: Cath Placed During This Visit: yes Reason for Continuing Indwelling Catheter: Accurate Measurement of Urinary Output in Critically Ill Patients Urinary Catheter Date of Insertion: 12/12/24 Urinary Catheter Time of Insertion: 17:24 Kent: Cath Placed During This Visit: yes Reason for Continuing Indwelling Catheter: Not indwelling catheter Urinary Catheter Date of Insertion: 11/20/24 Discharge Data Studies Completed and Pending Completed Studies During Hospitalization Category Date Time Status CT head wo con* 14791 Stat Cat Scan 12/12/24 11:57 Completed XR chest 1V portable 81011 Stat Exams 12/12/24 11:57 Completed US abdomen complete* 12030 Stat Ultrasound 12/12/24 14:56 Completed Pending at discharge Category Date Time Status Lamotrigine (Lamictal) Level Routine Lab 12/15/24 11:25 Received Radiology Impressions Chest X-Ray 12/12/24 11:57 IMPRESSION: No acute cardiopulmonary process. Head CT 12/12/24 11:57 IMPRESSION: No large territorial infarct or intracranial bleed. Abdomen Ultrasound 12/12/24 14:56 IMPRESSION: 1. Post cholecystectomy with no biliary dilatation. 2. Hepatic steatosis. 3. Small right pleural effusion. 4. Possible small ascites. Laboratory Results WBC 8.31 10^3/uL (3.29-11.43) 12/16/24 05:02 RBC 3.47 10^6/uL (3.85-5.65) L 12/16/24 05:02 Hgb 8.80 g/dL (11.27-16.99) L 12/16/24 05:02 Hct 30.0 % (36-47) L 12/16/24 05:02 MCV 86.5 fl (85-98) 12/16/24 05:02 MCH 25.4 pg (27-33) L 12/16/24 05:02 MCHC 29.3 g/dL (30-55) L 12/16/24 05:02 RDW 17.9 % (12.1-15.1) H 12/16/24 05:02 Plt Count 234 10^3/cmm (157-399) 12/16/24 05:02 MPV 9.3 fL (7.4-10.4) 12/16/24 05:02 Neut % (Auto) 74.0 % 12/16/24 05:02 Lymph % (Auto) 9.6 % 12/16/24 05:02 [place]cher % (Auto) 8.5 % 12/16/24 05:02 Eos % (Auto) 3.5 % 12/16/24 05:02 Baso % (Auto) 0.5 % 12/16/24 05:02 Neut # (Auto) 6.15 10^3/uL (1.8-7.7) 12/16/24 05:02 Lymph # (Auto) 0.8 10^3/uL (0.8-4.8) 12/16/24 05:02 [place] # (Auto) 0.7 10^3/uL (0.2-0.9) 12/16/24 05:02 Eos # (Auto) 0.3 10^3/uL (0.0-0.8) 12/16/24 05:02 Baso # (Auto) 0.0 10^3/uL (0.0-0.1) 12/16/24 05:02 Nucleated RBC % (auto) 0.5 % 12/16/24 05:02 Nucleated RBCs # 0.0 /100WBC 12/16/24 05:02 PT 15.60 SECONDS (12.1-14.9) H 12/12/24 12:11 INR 1.16 (0.8-1.2) 12/12/24 12:11 Specimen Type Arterial 12/12/24 12:33 Sample Site Radial, right 12/12/24 12:33 ABG pH 7.40 (7.35-7.45) 12/12/24 12:33 ABG pCO2 53.7 mmHg (35-45) H 12/12/24 12:33 ABG pO2 80.8 mmHg (80.0-100.0) 12/12/24 12:33 ABG PO2/FiO2 Ratio 288 12/12/24 12:33 ABG HCO3 33.5 mmol/L (22-26) H 12/12/24 12:33 ABG Base Excess 7.8 mmol/L (-2.0-2.0) H 12/12/24 12:33 Thien Test Pos 12/12/24 12:33 Hematocrit 24.2 % (37-47) L 12/12/24 12:33 O2 Delivery Device Nc 12/12/24 12:33 O2 Liters/Min 2.0 % 12/12/24 12:33 FiO2 28.0 % 12/12/24 12:33 Annual Giving Officer ID Amh 12/12/24 12:33 Sodium 132 mmol/L (136-145) L 12/16/24 05:02 Potassium 4.2 mmol/L (3.5-5.1) 12/16/24 05:02 Chloride 96 mmol/L (98-107) L 12/16/24 05:02 Carbon Dioxide 26 mmol/L (22-29) 12/16/24 05:02 Anion Gap 14.2 (5-19) 12/16/24 05:02 BUN 19 mg/dL (8-23) 12/16/24 05:02 Creatinine 2.6 mg/dL (0.5-0.9) H 12/16/24 05:02 GFR Calculation 18.5 mL/min (90-130) L 12/16/24 05:02 Glucose 211 mg/dL (65-115) H 12/16/24 05:02 POC Glucose 194 mg/dL (70-110) H 12/15/24 16:19 Calculated Osmolality 283 mOsm/kg (285-295) L 12/16/24 05:02 Calcium 8.3 mg/dL (8.5-10.5) L 12/16/24 05:02 Magnesium 2.0 mg/dL (1.7-2.3) 12/15/24 05:38 Total Bilirubin 0.5 mg/dL (0.15-1.2) 12/16/24 05:02 AST 30 U/L (0-32) 12/16/24 05:02 ALT 125 U/L (0-33) H 12/16/24 05:02 Alkaline Phosphatase 113 U/L (35-105) H 12/16/24 05:02 NT-Pro-B Natriuret Pep 93396 pg/mL (0-125) H 12/13/24 04:21 Total Protein 5.6 g/dL (6.6-8.7) L 12/16/24 05:02 Albumin 3.1 g/dL (3.5-5.2) L 12/16/24 05:02 Globulin 2.5 g/dL (1.3-4.6) 12/16/24 05:02 TSH 1.08 uIU/mL (0.27-4.20) 12/13/24 04:21 Urine Color Yellow (Yellow) 12/12/24 12:44 Urine Appearance Slightly cloudy (CLEAR) 12/12/24 12:44 Urine pH TNP 12/12/24 12:44 Ur Specific [place] TNP 12/12/24 12:44 Urine Protein TNP 12/12/24 12:44 Urine Glucose (UA) TNP 12/12/24 12:44 Urine Ketones TNP 12/12/24 12:44 Urine Blood TNP 12/12/24 12:44 Urine Nitrate TNP 12/12/24 12:44 Urine Bilirubin TNP 12/12/24 12:44 Urine Urobilinogen TNP 12/12/24 12:44 Ur Leukocyte Esterase TNP 12/12/24 12:44 Urine RBC 0-4 /hpf (0-2) H 12/12/24 12:44 Urine WBC 0-4 /hpf (0-5) H 12/12/24 12:44 Ur Squamous Epith Cells 5-10 /hpf (0-5) H 12/12/24 12:44 Amorphous Sediment Not Reportable 12/12/24 12:44 Urine Bacteria 2+ /hpf (NONE) H 12/12/24 12:44 Urine Yeast Trace /hpf 12/12/24 12:44 Adenovirus (PCR) Not detected (NOT DETECT) 12/12/24 18:20 C. pneumoniae DNA (PCR) Not detected (NOT DETECT) 12/12/24 18:20 Coronavirus 229E (PCR) Not detected (NOT DETECT) 12/12/24 18:20 Human Metapneumovir PCR Not detected (NOT DETECT) 12/12/24 18:20 Influenza A (H1) PCR Not detected (NOT DETECT) 12/12/24 18:20 Influ A (H1/09) PCR Not detected (NOT DETECT) 12/12/24 18:20 Influenza A (H3) PCR Not detected (NOT DETECT) 12/12/24 18:20 Influenza Type A (PCR) Not detected (NOT DETECT) 12/12/24 18:20 Influenza Type B (PCR) Not detected (NOT DETECT) 12/12/24 18:20 M. pneumoniae (PCR) Not detected (NOT DETECT) 12/12/24 18:20 Parainfluenza 1 (PCR) Not detected (NOT DETECT) 12/12/24 18:20 Parainfluenza 2 (PCR) Not detected (NOT DETECT) 12/12/24 18:20 Parainfluenza 3 (PCR) Not detected (NOT DETECT) 12/12/24 18:20 Parainfluenza 4 (PCR) Not detected (NOT DETECT) 12/12/24 18:20 RSV Type A (PCR) Not detected (NOT DETECT) 12/12/24 18:20 RSV Type B (PCR) Not detected (NOT DETECT) 12/12/24 18:20 Entero/Rhino (PCR) Not detected (NOT DETECT) 12/12/24 18:20 SARS-CoV-2 (PCR) Not detected (NOT DETECT) 12/12/24 18:20 Blood Type O Positive 12/15/24 14:24 Rho(D) Type Rh positive 12/15/24 14:24 Antibody Screen Negative 12/15/24 14:24 Crossmatch See Detail 12/15/24 14:24 Vitals Last Vital Signs Temp 97.2 F L 12/16/24 08:57 Pulse 63 12/16/24 08:57 Resp 16 12/16/24 08:57 BP 165/72 12/16/24 08:57 Pulse Ox 95 12/16/24 08:14 O2 Del Method Nasal Cannula 12/16/24 08:14 O2 Flow Rate 1.5 12/16/24 04:00 FiO2 25 12/12/24 16:10 Discharge Plan Discharge Patient Disposition: Xfer SNF Condition: Stable Prescriptions: New carvedilol [Coreg] 6.25 mg tablet 6.25 mg PO BID Qty: 60 0RF Rx Instructions: must administer with a meal/food bumetanide 1 mg tablet 1 mg PO DAILY Qty: 60 0RF Continued (DME) Dexcom G7 Sensor Device See Rx Instructions .Route Qty: 1 0RF Rx Instructions: As directed (DME) Dexcom G7 Senior Asset Manager Misc See Rx Instructions .Route Qty: 1 6RF Rx Instructions: As directed allopurinol 300 mg tablet 300 mg PO DAILY Qty: 90 0RF atorvastatin 40 mg tablet 40 mg PO BEDTIME cetirizine 10 mg Tablet 10 mg PO DAILY magnesium hydroxide [Milk of Magnesia] 400 mg/5 mL Suspension 30 ml PO DAILY PRN (Reason: Constipation) calcium carbonate 500 mg calcium (1,250 mg) Tablet,Chewable 500 mg PO Q8H PRN (Reason: gastro-esophageal reflux) acetaminophen [Tylenol] 325 mg Tablet 650 mg PO Q6H PRN (Reason: PAIN OR ELEVATED TEMP) clopidogrel 75 mg tablet 75 mg PO DAILY bisacodyl 10 mg Suppository 10 mg NM DAILY PRN (Reason: Constipation) polyethylene glycol 3350 [Miralax] 17 gram/dose Powder 17 g PO DAILY PRN (Reason: bowel managment) ondansetron HCl 4 mg tablet 4 mg PO Q6H PRN (Reason: Nausea And Vomiting) ascorbic acid (vitamin C) [Vitamin C] 500 mg tablet 500 mg PO DAILY fluticasone propionate 50 mcg/actuation spray,suspension 1 spray INTRANASAL Q12H PRN (Reason: ALLERGIES) risperidone 1 mg Tablet 1 mg PO QAM lamotrigine 100 mg Tablet 100 mg PO TID bupropion HCl 150 mg Tablet Extended Release 24 Hr 150 mg PO QAM melatonin 5 mg Tablet 5 mg PO BEDTIME insulin aspart U-100 [Novolog FlexPen U-100 Insulin] 100 unit/mL (3 mL) insulin pen See Rx Instructions .ROUTE .COMPLEX Qty: 15 0RF Rx Instructions: Inject, subcut, 3 times daily, after meals, based on sliding scale provided 70-149=0 units 150-199=2units 200-249=4units 250-299=6units 300-349=8units 350-400=10units greater than 400 Call insulin glargine [Lantus Solostar U-100 Insulin] 100 unit/mL (3 mL) insulin pen 10 unit SUBCUT DAILY Qty: 15 0RF trazodone 100 mg Tablet 100 mg PO BEDTIME PRN (Reason: Insomnia) 30 Days Qty: 30 0RF docusate sodium 100 mg Capsule 100 mg PO BID 30 Days Qty: 60 0RF ergocalciferol (vitamin D2) [Vitamin D2] 1,250 mcg (50,000 unit) Capsule 50,000 unit PO Q7D 30 Days Qty: 4 0RF Changed hydralazine 25 mg Tablet 75 mg PO TID 30 Days Qty: 270 0RF Discontinued eszopiclone 3 mg tablet 3 mg PO BEDTIME metoprolol tartrate 25 mg Tablet 25 mg PO BID 30 Days Qty: 60 0RF Discharge Orders: Discharge Order (Routine); Ordered 12/16/24 Ordered By: Patel Jones Referrals: [facility] [Outside] Benigno Jennings DO [Primary Care Provider, [facility]] - 7-10 days Discharge Diet: Usual diet Discharge Activity: Resume usual activity and Increase activity as tolerated Patient Instructions: Bumetanide (By mouth) (Bumex), Carvedilol (By mouth), CHF Stoplight, Opioid Safety Discharge Attestations Time Spent in Discharge Care*: greater than 30 min Specific Discharge Activities: educating patient, discussing with pcp/other providers, discussing with immigration case worker/social workers/dc planners, documenting/other paperwork and evaluating patient/reviewing data Status at Discharge: Cognitive status at discharge: mildly impaired cognition , Behavioral status at discharge: cooperative , Functional status at discharge: bed bound , Overall status at discharge: patient is back to baseline Quality Metrics Clinical Quality Measures [ No reported AMI, CVA or VTE this stay] Coding Level of Care Code 23100 Total time (in minutes) for Discharge: 60 Diagnoses Acute hypercapnic respiratory failure J96.02 Fluid overload E87.70 Acute on chronic diastolic congestive heart failure I50.33 Heart failure chronicity: acute on chronic Heart failure type: diastolic Hemodialysis status Z99.2 Type 2 diabetes mellitus with diabetic neuropathy, with long-term current use of insulin E11.40; Z79.4 Diabetes mellitus intermediate school teacher insulin use: with custodial use Diabetes mellitus type: type 2 Mixed hyperlipidemia E78.2 Elevated liver function tests R79.89
[2024-12-16] MEDS: insulin glargine 100 units/1 mL 10 UNIT SUBCUT (10:20)
[2024-12-16 11:40] LABS: Glucose Point of Care 223 mg/dL (70-110)
[2024-12-16 11:40] LABS: Glucose Point of Care 208 mg/dL (70-110)
[2024-12-16 11:40] LABS: Glucose Point of Care 181 mg/dL (70-110)
--- NOTE | 2024-12-16 11:47 | PC.NURSE ---
This nurse called report to MILA Small at [facility] at 1142. Pt will d/c following dialysis.
[2024-12-16] MEDS: epoetin alfa-epbx 10,000 unit/ml SDV (ESRD) 10000 UNIT SUBCUT (11:48)
--- NOTE | 2024-12-16 13:28 | PC.NURSE ---
Discharge pending EMS transport. ETA of 6-8hrs.
--- NOTE | 2024-12-16 14:42 | P.PN_ITS ---
Subjective 2 Subjective: getting HD Medications: Reviewed: Yes Vitals/I&O/Wt Last Vital Signs Temp 97.3 F L 12/16/24 12:56 Pulse 60 12/16/24 12:56 Resp 16 12/16/24 12:56 BP 180/75 12/16/24 12:56 Pulse Ox 94 12/16/24 12:11 O2 Del Method Nasal Cannula 12/16/24 12:11 O2 Flow Rate 2 12/16/24 09:14 FiO2 25 12/12/24 16:10 12/15/24 12/16/24 12/16/24 22:59 06:59 14:59 Intake Total 1330 / 2170 250 / 2420 1340 / 1340 Output Total 500 / 500 250 / 750 3500 / 3500 Balance 830 / 1670 0 / 1670 -2160 / -2160 Weight last 48 hrs Weight 112.9 kg Weight 115.666 kg Weight 112.633 kg Weight 112.6 kg Physical Exam 2 Narrative: awake , alert , no distress PERRLA S1-S2 regular rate and rhythm per report Lungs with bilateral crackles Abdomen soft nontender per report Has pedal edema Urinary Catheter Management: Kent Latex: Cath Placed During This Visit: yes Reason for Continuing Indwelling Catheter: Accurate Measurement of Urinary Output in Critically Ill Patients Urinary Catheter Date of Insertion: 12/12/24 Urinary Catheter Time of Insertion: 17:24 Kent: Cath Placed During This Visit: yes Reason for Continuing Indwelling Catheter: Not indwelling catheter Urinary Catheter Date of Insertion: 11/20/24 Data 12/16/24 05:02 12/16/24 05:02 A&P Assessment and plan (1) ESRD (end stage renal disease) on dialysis: 1. End-stage renal disease: Recently initiated on dialysis via tunneled catheter, patient now presents with respiratory distress and volume overload.. HD TODAY and ultrafiltration as tolerated 2. History of hypertension, resume home medications 3. Anemia: Will order JEMAL 4. Acute on chronic respiratory failure,improved 5. History of diabetes Patient evaluated using audiovisual cart. Time spent 40 minutes. PDMP PDMP Reviewed: Not Reviewed Attestations 2 Medical Necessity Statement*: per grzegorz Coding Level of Care Code Acute Code for Chg Fwd Diagnoses ESRD (end stage renal disease) on dialysis N18.6; Z99.2
[2024-12-16] MEDS: pantoprazole 40 mg SDV IVP (14:51)
[2024-12-16] MEDS: hyDRALAzine 25 mg Tablet 75 MG PO (14:52)
--- NOTE | 2024-12-16 15:17 | PC.OT ---
OT TREATMENT HELD DUE TO SCHEDULED PATIENT D/C AFTER DIALYSIS
[2024-12-16 16:31] LABS: Glucose Point of Care 192 mg/dL (70-110)
[2024-12-16] MEDS: metoprolol tartrate 25 mg Tablet PO (17:30)
[2024-12-18 23:44] LABS: Lamotrigine (Lamictal) Level 3.7 mcg/mL (2.5-15.0)
== END 2024-12-16 19:03 | disposition home or self-care (01) | DRG 640 ==
LOC: ER 13:36 → MEDSURG 14:25 → ICU 16:33 → MEDSURG 12-13 13:43
PROVIDERS: Admitting Provider Internal Medicine; Emergency Provider Emergency Medicine; PCP Family Medicine; Visit Provider Student in an Organized Health Care Education/Training Program
DX: E87.70 Fluid overload, unspecified (principal); I50.33 Acute on chronic diastolic (congestive) heart failure; N18.6 End stage renal disease; J96.22 Acute and chronic respiratory failure with hypercapnia; J96.21 Acute and chronic respiratory failure with hypoxia; I13.2 Hypertensive heart and chronic kidney disease with heart failure and with stage 5 chronic kidney disease, or end stage renal disease; E51.2 Wernicke's encephalopathy; I50.32 Chronic diastolic (congestive) heart failure; J44.9 Chronic obstructive pulmonary disease, unspecified; G47.33 Obstructive sleep apnea (adult) (pediatric); Z95.0 Presence of cardiac pacemaker; E78.2 Mixed hyperlipidemia; E11.40 Type 2 diabetes mellitus with diabetic neuropathy, unspecified; Z86.73 Personal history of transient ischemic attack (TIA), and cerebral infarction without residual deficits; E03.9 Hypothyroidism, unspecified; Z88.1 Allergy status to other antibiotic agents; Z88.8 Allergy status to other drugs, medicaments and biological substances; Z88.2 Allergy status to sulfonamides; Z79.4 Long term (current) use of insulin; Z99.2 Dependence on renal dialysis; D63.1 Anemia in chronic kidney disease; E11.22 Type 2 diabetes mellitus with diabetic chronic kidney disease; I16.0 Hypertensive urgency
CPT/HCPCS: 36415; 36416; 36430; 36600; 51702; 70450; 71045; 76700; 80053; 80175; 81001; 82803; 82962; 83735; 83880; 84443; 85025; 85610; 86850; 86900; 86920; 87086; 87486; 87581; 87633; 90935; 93005; 94660; 96372; 96374; 96375; 96376; 97116; 97161; 97167; 97530; 97535; 99285; J0696; J1644; J1815; J1938; J2470; J9999; P9016; Q5105

== ENCOUNTER 2025-01-06 00:03 | Emergency (ER) | payer MEDICARE, SELFPAY ==
[2025-01-06 00:11] VITALS: BP 153/68; PULSE 72; RESP 16; TEMP 36.8; O2SAT 87; BMI 49.8
--- NOTE | 2025-01-06 00:18 | ECG_ITS ---
[facility] Test Date: 2025-01-06 Pat Name: Hilda Wallace Department: Room: Gender: Female Director Occupational: : 1960 Requested By: Rober Wilson Order Number: [id number] Chávez MD: Clovis Guerrero M.D. Measurements Intervals [place] Rate: 74 P: 21 CA: 273 QRS: -37 QRSD: 147 T: 46 QT: 459 QTc: 510 Interpretive Statements ELECTRONIC ATRIAL PACEMAKER LEFT AXIS DEVIATION [QRS AXIS < -30] RIGHT BUNDLE BRANCH BLOCK [120+ ms QRS DURATION, UPRIGHT V1, 40+ ms S IN I/aVL/V4/V5/V6] POSSIBLE LEFT VENTRICULAR HYPERTROPHY [VOLTAGE CRITERIA PLUS LAE OR QRS WIDENING] Compared to ECG 12/12/2024 14:50:56 ST (T wave) deviation no longer present Electronically Signed On 01-06-2025 18:06:03 CDT by Clovis Guerrero M.D. [email or web address]
--- NOTE | 2025-01-06 01:06 | XRR_ITS ---
PROCEDURE INFORMATION: Exam: XR Chest Exam date and time: 01/06/2025 1:09 AM Age: 64 years old Clinical indication: Shortness of breath; Additional info: SOB TECHNIQUE: Imaging protocol: Radiologic exam of the chest. Views: 1 view. COMPARISON: CR (CHEST, ) 12/12/2024 12:20 PM FINDINGS: Tubes, catheters and devices: Stable pacemaker and right IJ dialysis catheter. Lungs: Stable minimal bibasilar atelectasis/edema. Low lung volumes. Pleural spaces: Unremarkable. No pleural effusion. No pneumothorax. Heart/Mediastinum: Unremarkable. No cardiomegaly. Bones/joints: Unremarkable. XR/XR chest 1V portable [id number] IMPRESSION: Stable minimal bibasilar atelectasis/edema.
[2025-01-06 01:17] LABS: Basophils # 0.1 10^3/uL (0.0-0.1); Basophils % 0.6 %; Eosinophils # 0.3 10^3/uL (0.0-0.8); Eosinophils % 3.8 %; Hematocrit 33.5 % (36-47); Lymphocytes # 0.8 10^3/uL (0.8-4.8); Mean Corpuscular HGB Conc 29.3 g/dL (30-55); Mean Corpuscular Hemoglobin 25.9 pg (27-33); Mean Corpuscular Volume 88.6 fl (85-98); Mean Platelet Volume 9.6 fL (7.4-10.4); Monocytes # 0.7 10^3/uL (0.2-0.9); Monocytes % 8.5 %; Neutrophils # 6.45 10^3/uL (1.8-7.7); Neutrophils % 76.9 %; Nucleated Red Blood Cells % 0 %; Platelet Count 216 10^3/cmm (157-399); Red Blood Count 3.78 10^6/uL (3.85-5.65); Red Cell Distribution Width 19.3 % (12.1-15.1); White Blood Count 8.39 10^3/uL (3.29-11.43)
--- NOTE | 2025-01-06 01:34 | ED_ITS ---
HPI - SOB/Dyspnea 2 General: Chief Complaint: Shortness of Breath/Dyspnea Stated Complaint: RESP. DISTRESS Time Seen by Provider: 01/06/25 01:03 History of Present Illness: HPI Narrative: Hilda Wallace, a patient with a history of recent hospitalization for acute on chronic respiratory failure, hypercapnia, and congestive heart failure, presents with persistent respiratory symptoms. She was discharged from the hospital 5-6 days ago and is now experiencing difficulty breathing. The patient reports ongoing wheezing and respiratory distress since her discharge. She mentions that her symptoms started while she was at a place in [place], stating, Something was living there at the place in... [place]. She describes her current condition as hell with this, indicating significant discomfort. The patient notes that her breathing issues have not improved, saying, [place] hadn't closed up there, and I just never stopped. She is currently on oxygen therapy, which is a new intervention since her hospital stay. Ms. Wallace is scheduled for dialysis today at 7 or 8 in the morning. She reports still being able to urinate, having last done so around 9:30 or 10 this morning. The patient mentions feeling off for a few days, and states that Nobody's been able to get it out so far, possibly referring to her respiratory symptoms. During her recent hospitalization, Ms. Wallace required a blood transfusion due to anemia. She does not mention any specific aggravating or alleviating factors for her current symptoms, nor does she discuss the impact on her daily functioning. However, her need for oxygen and persistent symptoms suggest a significant effect on her quality of life. Patient is a poor historian secondary to confusion and expressive aphasia secondary to previous stroke. Related Data Home Medications ?Medication ?Instructions ?Recorded ?Confirmed clopidogrel 75 mg tablet 75 mg PO DAILY 07/08/2011/17 acetaminophen 325 mg tablet 650 mg PO Q6H PRN PAIN OR ELEVATED 10/03/21 12/12/24 (Tylenol) TEMP atorvastatin 40 mg tablet 40 mg PO BEDTIME 10/03/21 calcium carbonate 500 mg PO Q8H PRN 10/03/21 0 12/12/24 gastro-esophageal reflux cetirizine 10 mg tablet 10 mg PO DAILY 10/03/2111/17 magnesium hydroxide 400 mg/5 mL 30 ml PO DAILY PRN Con stipation 10/03/21 12/12/24 oral suspension (Milk of Magnesia) ascorbic acid (vitamin C) 500 mg 500 mg PO DAILY 03/0312/12/24 tablet (Vitamin C) fluticasone propionate 50 1 spray intranasal Q12H PRN 03/03/24 12/12/24 mcg/actuation nasal ALLERGIES spray,suspension ondansetron HCl 4 mg tablet 4 mg PO Q6H PRN Nausea And Vomiting 03/03/24 12/12/24 bupropion HCl 150 mg 24 hr tablet, 150 mg PO QAM 07/1612/12/24 extended release lamotrigine 100 mg tablet 100 mg PO TID 07/16/2412/12 risperidone 1 mg tablet 1 mg PO QAM 07/16/24 5 melatonin 5 mg tablet 5 mg PO BEDTIME 08/30/24 bisacodyl 10 mg rectal suppository 10 mg MI DAILY PRN Constipation 12/12/24 12/12/24 polyethylene glycol 3350 17 17 g PO DAILY PRN bowel ma nagment 12/12/24 12/12/24 gram/dose oral powder (Miralax) Previous Rx's ?Medication ?Instructions ?Recorded allopurinol 300 mg tablet 300 mg PO DAILY #90 tabs 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 sensor (Dexcom G7 #1 ea 03/12/23 Sensor device) 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,emergency communications dispatcher,cont #1 ea 03/12/23 (Dexcom G7 Millinery Department Manager) insulin aspart U-100 100 unit/mL See Rx Instructions . Route 09/07/24 (3 mL) subcutaneous pen (Novolog .COMPLEX #15 mL FlexPen U-100 Insulin aspart) insulin glargine 100 unit/mL (3 10 unit (0.1 mL) SUBCU T DAILY #15 09/07/24 mL) subcutaneous pen (Lantus mL Solostar U-100 Insulin) bumetanide 1 mg tablet 1 mg PO DAILY #60 tabs 12/16 carvedilol 6.25 mg tablet (Coreg) 6.25 mg PO BID #60 t abs 12/16/24 hydralazine 25 mg tablet 75 mg (3 x 25 mg) PO TID 30 days 12/16/24 #270 tabs Allergies Allergy/AdvReac Type Severity Reaction Status Date / Time clarithromycin (From Biaxin) Allergy nausea Verified 09/14/24 06:32 clindamycin Allergy shock Verified 09/14/24 06:32 diclofenac Allergy swelling Verified 09/14/24 06:32 enalapril Allergy unknown Verified 09/14/24 06:32 ketorolac (From Toradol) Allergy short of Verified 09/14/24 06:32 breath losartan (From Cozaar) Allergy shock Verified 09/14/24 06:32 nifedipine (From Procardia) Allergy hives Verified 09/14/24 06:32 pregabalin (From Lyrica) Allergy unknown Verified 09/14/24 06:32 Sulfa (Sulfonamide Allergy anaphylasix Verified 09/14/24 06:32 Antibiotics) Review of Systems 2 General: Reports: ROS unobtainable due to medical condition PFSH ED 2 PFSH: Medical History (Updated 01/06/25 @ 03:04 by Rober Wilson DO) CKD (chronic kidney disease) COPD (chronic obstructive pulmonary disease) LEROY on CPAP Diastolic heart failure Essential hypertension Insulin dependent type 2 diabetes mellitus Bilateral leg edema Chronic anemia Pacemaker Acute pancreatitis Sinus pause DELORIS (acute kidney injury) Altered mental status Paranoid Expressive aphasia Anxiety and depression Lives in assisted living facility Rotator cuff tear, right Diabetes mellitus insulin dependent Essential (primary) hypertension Depression due to cerebrovascular accident (CVA) Expressive aphasia Hypomagnesemia Bilateral pneumonia Hyponatremia Hyperkalemia Right humeral fracture Metabolic encephalopathy Resolved Acute delirium Resolved Pneumonia due to COVID-19 virus Resolved Poor social situation Multinodular thyroid Acute embolic stroke Recurrent falls Resolved History of CVA (cerebrovascular accident) Acute hypersomnolence disorder Essential hypertension Wernicke dysphasia Diabetes mellitus with neuropathy Mixed hyperlipidemia Surgical History History of nasal sinusotomy History of cholecystectomy History of tonsillectomy History of repair of rotator cuff History of hysterectomy for indication other than malignancy History of bursectomy Hx of adenoidectomy Status post anal fissurectomy History of colonoscopy Family History Mother CAD (coronary artery disease) Other Asthma Cancer Diabetes Heart disease Hypertension Stroke Social History Smoking and tobacco/nicotine status: former use of tobacco/nicotine Alcohol intake: current Alcohol intake frequency: few times a month Substance/Drug Use: never Physical Exam 2 Const: COMMON NORMALS: no acute distress, patient oriented x3, healthy appearing, alert and well nourished HENMT: COMMON NORMALS: normocephalic HEAD & SCALP: normocephalic Eye: COMMON NORMALS: EOMs intact bilaterally Neck/C-Spine: COMMON NORMALS: full ROM and supple Resp: COMMON NORMALS: normal respiratory effort, No retractions and clear to auscultation bilaterally AUSCULTATION: clear to auscultation bilaterally and wheezes expiratory wheezes Cardio: COMMON NORMALS: regular rate, regular rhythm, No gallops present (Cardio) and No murmurs present (Cardio) RATE: regular rate RHYTHM: r egular rhythm GI: COMMON NORMALS: Soft to palpation and non-tender PALPATION: Yes Soft to palpation Extremity: GENERAL: Yes normal exam except as noted Neuro: COMMON NORMALS: patient oriented x3 SENSORIUM/ORIENTATION: Yes alert Skin: COMMON NORMALS: no rashes or lesions noted GENERAL SKIN EXAM: no rashes or lesions noted Course 2 Vital Signs: Vital signs: Vital Signs Temperature 98.3 F 01/06/25 00:11 Pulse Rate 60 01/06/25 02:37 Respiratory Rate 18 01/06/25 02:37 Blood Pressure 109/64 01/06/25 02:37 Pulse Oximetry 93 01/06/25 02:37 Oxygen Delivery Me thod Nasal Cannula 01/06/25 02:37 Oxygen Flow Rate 2 01/06/25 02:37 MDM - SOB/Dyspnea Medical Decision Making 64-year-old female presented via EMS from [facility] with chief complaint of shortness of breath. Patient had a recent admission to this hospital for acute on chronic respiratory failure, anemia, CHF. History was difficult to obtain secondary to the patient being a poor historian. Though the patient had several abnormalities on her labs and vital signs today many of them are improved or at baseline for her. She did have wheezes on exam that improved with a DuoNeb. Patient is on her home 2 L of oxygen. Patient was returned back to the [facility] with return precautions. Lab Data 01/05/25 23:49 01/05/25 23:49 Labs/Radiology: Radiology Impressions Chest X-Ray 01/06/25 01:06 IMPRESSION: Stable minimal bibasilar atelectasis/edema. Laboratory Results WBC 8.39 10^3/uL (3.29-11.43) 01/05/25 23:49 RBC 3.78 10^6/uL (3.85-5.65) L 01/05/25 23:49 Hgb 9.80 g/dL (11.27-16.99) L 01/05/25 23:49 Hct 33.5 % (36-47) L 01/05/25 23:49 MCV 88.6 fl (85-98) 01/05/25 23:49 MCH 25.9 pg (27-33) L 01/05/25 23:49 MCHC 29.3 g/dL (30-55) L 01/05/25 23:49 RDW 19.3 % (12.1-15.1) H 01/05/25 23:49 Plt Count 216 10^3/cmm (157-399) 01/05/25 23:49 MPV 9.6 fL (7.4-10.4) 01/05/25 23:49 Neut % (Auto) 76.9 % 01/05/25 23:49 Lymph % (Auto) 10.0 % 01/05/25 23:49 [place] % (Auto) 8.5 % 01/05/25 23:49 Eos % (Auto) 3.8 % 01/05/25 23:49 Baso % (Auto) 0.6 % 01/05/25 23:49 Neut # (Auto) 6.45 10^3/uL (1.8-7.7) 01/05/25 23:49 Lymph # (Auto) 0.8 10^3/uL (0.8-4.8) 01/05/25 23:49 [place] # (Auto) 0.7 10^3/uL (0.2-0.9) 01/05/25 23:49 Eos # (Auto) 0.3 10^3/uL (0.0-0.8) 01/05/25 23:49 Baso # (Auto) 0.1 10^3/uL (0.0-0.1) 01/05/25 23:49 Nucleated RBC % (auto) 0 % 01/05/25 23:49 Nucleated RBCs # 0.0 /100WBC 01/05/25 23:49 Specimen Type Venous 01/06/25 01:18 Sample Site Not specified 01/06/25 01:18 Thien Test N/a 01/06/25 01:18 VBG pH 7.37 (7.32-7.42) 01/06/25 01:18 VBG pCO2 51.9 mmHg (41-51) H 01/06/25 01:18 VBG pO2 140.0 mmHg (25-40) H 01/06/25 01:18 VBG HCO3 30.2 mmol/L (24-28) H 01/06/25 01:18 VBG Base Excess 4.1 mmol/L (-3.0-3.0) H 01/06/25 01:18 VBG Hematocrit 31.9 % (37-47) L 01/06/25 01:18 O2 Delivery Device None 01/06/25 01:18 Director Radio News ID [id number] 01/06/25 01:18 Sodium 142 mmol/L (136-145) 01/05/25 23:49 Potassium 4.1 mmol/L (3.5-5.1) 01/05/25 23:49 Chloride 103 mmol/L (98-107) 01/05/25 23:49 Carbon Dioxide 28 mmol/L (22-29) 01/05/25 23:49 Anion Gap 15.1 (5-19) 01/05/25 23:49 BUN 42 mg/dL (8-23) H 01/05/25 23:49 Creatinine 2.8 mg/dL (0.5-0.9) H 01/05/25 23:49 GFR Calculation 17.0 mL/min (90-130) L 01/05/25 23:49 Glucose 201 mg/dL (65-115) H 01/05/25 23:49 Calculated Osmolality 310 mOsm/kg (285-295) H 01/05/25 23:49 Calcium 8.5 mg/dL (8.5-10.5) 01/05/25 23:49 Total Bilirubin 0.4 mg/dL (0.15-1.2) 01/05/25 23:49 AST 11 U/L (0-32) 01/05/25 23:49 ALT 8 U/L (0-33) 01/05/25 23:49 Alkaline Phosphatase 104 U/L (35-105) 01/05/25 23:49 Troponin T Baseline 212 ng/L (0-10) H* 01/05/25 23:49 Troponin T 120 Minute 206.6 ng/L (0-10) H 01/06/25 01:43 Delta Troponin T -5.4 ABS# (0-10) L 01/06/25 01:43 NT-Pro-B Natriuret Pep 5861 pg/mL (0-125) H 01/05/25 23:49 Total Protein 5.6 g/dL (6.6-8.7) L 01/05/25 23:49 Albumin 3.2 g/dL (3.5-5.2) L 01/05/25 23:49 Globulin 2.4 g/dL (1.3-4.6) 01/05/25 23:49 All radiology interpretation(s) finalized by discharge Discharge Plan Discharge Patient Disposition: Home Clinical Impression: Chronic shortness of breath Condition: Stable Prescriptions: No Action (DME) Dexcom G7 Sensor Device See Rx Instructions .Route Qty: 1 0RF Rx Instructions: As directed (DME) Dexcom G7 Millinery Department Manager Misc See Rx Instructions .Route Qty: 1 6RF Rx Instructions: As directed allopurinol 300 mg tablet 300 mg PO DAILY Qty: 90 0RF atorvastatin 40 mg tablet 40 mg PO BEDTIME cetirizine 10 mg Tablet 10 mg PO DAILY magnesium hydroxide [Milk of Magnesia] 400 mg/5 mL Suspension 30 ml PO DAILY PRN (Reason: Constipation) calcium carbonate 500 mg calcium (1,250 mg) Tablet,Chewable 500 mg PO Q8H PRN (Reason: gastro-esophageal reflux) acetaminophen [Tylenol] 325 mg Tablet 650 mg PO Q6H PRN (Reason: PAIN OR ELEVATED TEMP) clopidogrel 75 mg tablet 75 mg PO DAILY bisacodyl 10 mg Suppository 10 mg MI DAILY PRN (Reason: Constipation) polyethylene glycol 3350 [Miralax] 17 gram/dose Powder 17 g PO DAILY PRN (Reason: bowel managment) carvedilol [Coreg] 6.25 mg tablet 6.25 mg PO BID Qty: 60 0RF Rx Instructions: must administer with a meal/food bumetanide 1 mg tablet 1 mg PO DAILY Qty: 60 0RF hydralazine 25 mg Tablet 75 mg PO TID 30 Days Qty: 270 0RF ondansetron HCl 4 mg tablet 4 mg PO Q6H PRN (Reason: Nausea And Vomiting) ascorbic acid (vitamin C) [Vitamin C] 500 mg tablet 500 mg PO DAILY fluticasone propionate 50 mcg/actuation spray,suspension 1 spray INTRANASAL Q12H PRN (Reason: ALLERGIES) risperidone 1 mg Tablet 1 mg PO QAM lamotrigine 100 mg Tablet 100 mg PO TID bupropion HCl 150 mg Tablet Extended Release 24 Hr 150 mg PO QAM melatonin 5 mg Tablet 5 mg PO BEDTIME insulin aspart U-100 [Novolog FlexPen U-100 Insulin] 100 unit/mL (3 mL) insulin pen See Rx Instructions .ROUTE .COMPLEX Qty: 15 0RF Rx Instructions: Inject, subcut, 3 times daily, after meals, based on sliding scale provided 70-149=0 units 150-199=2units 200-249=4units 250-299=6units 300-349=8units 350-400=10units greater than 400 Call insulin glargine [Lantus Solostar U-100 Insulin] 100 unit/mL (3 mL) insulin pen 10 unit SUBCUT DAILY Qty: 15 0RF Discharge Orders: Discharge ED (Routine); Ordered 01/06/25 Ordered By: Rober Law Referrals: Benigno Jennings DO [Primary Care Provider, [facility]] Discharge Diet: Advance as tolerated Discharge Activity: Resume usual activity Patient Instructions: Opioid Safety, Pain Management Activity Restrictions/Additional Instructions: Please continue to follow-up with your project manager industrial and primary care provider regarding your chronic shortness of breath. Labs, vital signs, and imaging are all at baseline for you today. Return to the emergency department for any new or worsening symptoms. Print Language: Belgian Coding Level of Care Code ED Heat Sealing Machine Operator for Avrey Rocha
[2025-01-06 01:38] LABS: Alanine Aminotransferase 8 U/L (0-33); Albumin Level 3.2 g/dL (3.5-5.2); Alkaline Phosphatase 104 U/L (35-105); Anion Gap 15.1 (5-19); Aspartate Amino Transferase 11 U/L (0-32); Blood Urea Nitrogen 42 mg/dL (8-23); Calcium 8.5 mg/dL (8.5-10.5); Carbon Dioxide 28 mmol/L (22-29); Chloride 103 mmol/L (98-107); Creatinine Clr Calc Pharmacy 27.3771; Globulin 2.4 g/dL (1.3-4.6); Glucose 201 mg/dL (65-115); NT Pro B Type Natriuretic Pept 5861 pg/mL (0-125); Osmolality Calculated 310 mOsm/kg (285-295); Potassium 4.1 mmol/L (3.5-5.1); Sodium 142 mmol/L (136-145); Total Bilirubin 0.4 mg/dL (0.15-1.2); Total Protein 5.6 g/dL (6.6-8.7)
[2025-01-06 01:41] LABS: Base Excess VBG 4.1 mmol/L (-3.0-3.0); Blood Gas Operator Identificat JDB; Blood Gas Sample Site Not specified; Blood Gas Sample Type Venous; HCO3 VBG 30.2 mmol/L (24-28); PCO2 VBG 51.9 mmHg (41-51); Venous Blood Gas Hematocrit 31.9 % (37-47); pH VBG 7.37 (7.32-7.42)
[2025-01-06 01:53] LABS: Troponin(5th) Baseline 212 ng/L (0-10)
[2025-01-06 02:05] VITALS: PULSE 60; RESP 18; O2SAT 98
[2025-01-06 02:07] LABS: Troponin 5 2HR Delta -5.4 ABS# (0-10)
[2025-01-06 02:08] LABS: Troponin 5 2HR 206.6 ng/L (0-10)
[2025-01-06] MEDS: ipratropium-albuterol 3 mL Neb INHALATION (02:08)
[2025-01-06 02:10] VITALS: PULSE 60; RESP 20; O2SAT 96
[2025-01-06 02:37] VITALS: BP 109/64; PULSE 60; RESP 18; O2SAT 93
[2025-01-06 05:38] VITALS: BP 152/89; PULSE 70; RESP 16; O2SAT 93
== END 2025-01-06 03:45 | disposition home or self-care (01) ==
PROVIDERS: Emergency Provider General Practice; PCP Family Medicine
DX: J96.10 Chronic respiratory failure, unspecified whether with hypoxia or hypercapnia (principal); I69.320 Aphasia following cerebral infarction; I13.0 Hypertensive heart and chronic kidney disease with heart failure and stage 1 through stage 4 chronic kidney disease, or unspecified chronic kidney disease; E11.22 Type 2 diabetes mellitus with diabetic chronic kidney disease; I69.318 Other symptoms and signs involving cognitive functions following cerebral infarction; G47.33 Obstructive sleep apnea (adult) (pediatric); E78.2 Mixed hyperlipidemia; E11.40 Type 2 diabetes mellitus with diabetic neuropathy, unspecified; J44.9 Chronic obstructive pulmonary disease, unspecified; I50.32 Chronic diastolic (congestive) heart failure; Z79.02 Long term (current) use of antithrombotics/antiplatelets; Z79.899 Other long term (current) drug therapy; Z88.1 Allergy status to other antibiotic agents; Z88.8 Allergy status to other drugs, medicaments and biological substances; Z88.2 Allergy status to sulfonamides; Z79.4 Long term (current) use of insulin; Z95.0 Presence of cardiac pacemaker; Z99.81 Dependence on supplemental oxygen
CPT/HCPCS: 71045; 80053; 82803; 83880; 84484; 85025; 93005; 94640; 99285; J9999

== ENCOUNTER 2025-01-07 13:51 | Outpatient (CLI) | payer MEDICARE, SELFPAY ==
[2025-01-07 14:09] LABS: Basophils # 0.1 10^3/uL (0.0-0.1); Basophils % 0.7 %; Eosinophils # 0.3 10^3/uL (0.0-0.8); Eosinophils % 4.2 %; Lymphocytes # 0.8 10^3/uL (0.8-4.8); Lymphocytes % 10.5 %; Mean Corpuscular HGB Conc 29.1 g/dL (30-55); Mean Corpuscular Hemoglobin 26.3 pg (27-33); Mean Corpuscular Volume 90.2 fl (85-98); Mean Platelet Volume 9.2 fL (7.4-10.4); Monocytes # 0.5 10^3/uL (0.2-0.9); Monocytes % 6.5 %; Neutrophils % 77.8 %; Nucleated Red Blood Cells % 0 %; Platelet Count 219 10^3/cmm (157-399); Red Blood Count 3.77 10^6/uL (3.85-5.65); Red Cell Distribution Width 18.9 % (12.1-15.1); White Blood Count 7.44 10^3/uL (3.29-11.43)
[2025-01-07 14:34] LABS: Albumin Level 3.2 g/dL (3.5-5.2); Anion Gap 17.3 (5-19); Blood Urea Nitrogen 43 mg/dL (8-23); Calcium 8.5 mg/dL (8.5-10.5); Carbon Dioxide 26 mmol/L (22-29); Chloride 102 mmol/L (98-107); Glucose 192 mg/dL (65-115); Phosphorus 4.6 mg/dL (2.5-4.5); Potassium 4.3 mmol/L (3.5-5.1); Sodium 141 mmol/L (136-145)
[2025-01-07 14:50] LABS: 25 Hydroxy Vitamin D 15 ng/mL (30-100)
[2025-01-07 14:59] LABS: Parathyroid Hormone 188.8 pg/mL (15-65)
== END 2025-01-07 13:52 | disposition home or self-care (01) ==
LOC: LAB 13:59
PROVIDERS: PCP Family Medicine
DX: I10 Essential (primary) hypertension (principal); E55.9 Vitamin D deficiency, unspecified; E11.40 Type 2 diabetes mellitus with diabetic neuropathy, unspecified
CPT/HCPCS: 80069; 82306; 82310; 83970; 85025

== ENCOUNTER 2025-01-10 17:38 | Emergency (ER) | payer MEDICARE, SELFPAY ==
[2025-01-10 17:40] VITALS: BP 168/67; PULSE 73; RESP 18; TEMP 36.7; O2SAT 96; BMI 45.8
--- NOTE | 2025-01-10 17:49 | W.ED.GENADLT ---
Documented by User: Cirilo Rivera, 01/11/25 06:22 HPI - General Adult General: Chief complaint: General Medical Stated complaint: NEEDS DIALYSIS Time Seen by Provider: 01/10/25 17:46 History of Present Illness: 64-year-old female resident local [facility] who usually gets dialysis I am told Tuesdays and Saturdays she did receive her dialysis on Friday we believe but we are trying to get this confirmed. She was sent here because she transitioned to [place] but does not have an order to do dialysis at [facility] tomorrow. She normally wears 2 L at baseline and she is satting well on that she has previously had a stroke and has expressive aphasia so cannot really tell us much as far as history goes. She does not appear to be acutely fluid overloaded at this time. She does have chronic swelling of her extremities that appears to be unchanged. There is chronic venous stasis changes in her legs. Associated symptoms: Deny chest pain, dyspnea or rash Related Data Home Medications ?Medication ?Instructions ?Recorded ?Confirmed clopidogrel 75 mg tablet 75 mg PO DAILY 07/08/20 12/12/24 acetaminophen 325 mg tablet 650 mg PO Q6H PRN PAIN OR ELEVATED 10/03/21 12/12/24 (Tylenol) TEMP atorvastatin 40 mg tablet 40 mg PO BEDTIME 10/03/21 12/12/24 calcium carbonate 500 mg PO Q8H PRN 10/03/21 12/12/24 gastro-esophageal reflux cetirizine 10 mg tablet 10 mg PO DAILY 10/03/21 12/12/24 magnesium hydroxide 400 mg/5 mL 30 ml PO DAILY PRN Constipation 10/03/21 12/12/24 oral suspension (Milk of Magnesia) ascorbic acid (vitamin C) 500 mg 500 mg PO DAILY 03/03/24 12/12/24 tablet (Vitamin C) fluticasone propionate 50 1 spray intranasal Q12H PRN 03/03/24 12/12/24 mcg/actuation nasal ALLERGIES spray,suspension ondansetron HCl 4 mg tablet 4 mg PO Q6H PRN Nausea And Vomiting 03/03/24 12/12/24 bupropion HCl 150 mg 24 hr tablet, 150 mg PO QAM 07/16/24 12/12/24 extended release lamotrigine 100 mg tablet 100 mg PO TID 07/16/24 12/12/24 risperidone 1 mg tablet 1 mg PO QAM 07/16/24 12/12/24 melatonin 5 mg tablet 5 mg PO BEDTIME 08/30/24 12/12/24 bisacodyl 10 mg rectal suppository 10 mg NH DAILY PRN Constipation 12/12/24 12/12/24 polyethylene glycol 3350 17 17 g PO DAILY PRN bowel managment 12/12/24 12/12/24 gram/dose oral powder (Miralax) Previous Rx's ?Medication ?Instructions ?Recorded allopurinol 300 mg tablet 300 mg PO DAILY #90 tabs 05/03/20 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 sensor (Dexcom G7 #1 ea 03/12/23 Sensor device) 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,infrastructure manager,cont #1 ea 03/12/23 (Dexcom G7 Airport Driver) insulin aspart U-100 100 unit/mL See Rx Instructions .Route 09/07/24 (3 mL) subcutaneous pen (Novolog .COMPLEX #15 mL FlexPen U-100 Insulin aspart) insulin glargine 100 unit/mL (3 10 unit (0.1 mL) SUBCUT DAILY #15 09/07/24 mL) subcutaneous pen (Lantus mL Solostar U-100 Insulin) bumetanide 1 mg tablet 1 mg PO DAILY #60 tabs 12/16/24 carvedilol 6.25 mg tablet (Coreg) 6.25 mg PO BID #60 tabs 12/16/24 hydralazine 25 mg tablet 75 mg (3 x 25 mg) PO TID 30 days 12/16/24 #270 tabs doxycycline monohydrate 100 mg 100 mg PO BID 10 days #20 caps 01/10/25 capsule Allergies Allergy/AdvReac Type Severity Reaction Status Date / Time clarithromycin (From Biaxin) Allergy nausea Verified 09/14/24 06:32 clindamycin Allergy shock Verified 09/14/24 06:32 diclofenac Allergy swelling Verified 09/14/24 06:32 enalapril Allergy unknown Verified 09/14/24 06:32 ketorolac (From Toradol) Allergy short of Verified 09/14/24 06:32 breath losartan (From Cozaar) Allergy shock Verified 09/14/24 06:32 nifedipine (From Procardia) Allergy hives Verified 09/14/24 06:32 pregabalin (From Lyrica) Allergy unknown Verified 09/14/24 06:32 Sulfa (Sulfonamide Allergy anaphylasix Verified 09/14/24 06:32 Antibiotics) Review of Systems Const: Denies: fever(s) or chills Card: Denies: chest pain Resp: Denies: dyspnea GI: Denies: abdominal pain : Denies: dysuria, urinary frequency or urinary urgency Musc: Denies: neck pain or back pain Skin/Breast: Denies: rash PFSH ED PFSH: Medical History CKD (chronic kidney disease) COPD (chronic obstructive pulmonary disease) LEROY on CPAP Diastolic heart failure Essential hypertension Insulin dependent type 2 diabetes mellitus Bilateral leg edema Chronic anemia Pacemaker Acute pancreatitis Sinus pause DELORIS (acute kidney injury) Altered mental status Paranoid Expressive aphasia Anxiety and depression Lives in assisted living facility Rotator cuff tear, right Diabetes mellitus insulin dependent Essential (primary) hypertension Depression due to cerebrovascular accident (CVA) Expressive aphasia Hypomagnesemia Bilateral pneumonia Hyponatremia Hyperkalemia Right humeral fracture Metabolic encephalopathy Resolved Acute delirium Resolved Pneumonia due to COVID-19 virus Resolved Poor social situation Multinodular thyroid Acute embolic stroke Recurrent falls Resolved History of CVA (cerebrovascular accident) Acute hypersomnolence disorder Essential hypertension Wernicke dysphasia Diabetes mellitus with neuropathy Mixed hyperlipidemia Surgical History History of nasal sinusotomy History of cholecystectomy History of tonsillectomy History of repair of rotator cuff History of hysterectomy for indication other than malignancy History of bursectomy Hx of adenoidectomy Status post anal fissurectomy History of colonoscopy Family History Mother CAD (coronary artery disease) Other Asthma Cancer Diabetes Heart disease Hypertension Stroke Social History Smoking and tobacco/nicotine status: former use of tobacco/nicotine Alcohol intake: current Alcohol intake frequency: few times a month Substance/Drug Use: never Physical Exam HENMT: COMMON NORMALS: normocephalic, atraumatic and hearing grossly normal bilaterally HEAD & SCALP: normocephalic and atraumatic Resp: COMMON NORMALS: normal respiratory effort, No retractions, No use of accessory muscles and clear to auscultation bilaterally AUSCULTATION: clear to auscultation bilaterally Cardio: COMMON NORMALS: regular rate, regular rhythm and No murmurs present (Cardio) RATE: regular rate RHYTHM: regular rhythm GI: COMMON NORMALS: Soft to palpation and No hepatosplenomegaly present AUSCULTATION: Yes normoactive bowel sounds PALPATION: Yes Soft to palpation, No Tenderness to palpation present (GI), No Guarding due to palpation present (GI) and Yes No hepatosplenomegaly present Extremity: COMMON NORMALS: normal to inspection, capillary refill normal and no calf tenderness Skin: OTHER: Chronic venous stasis edema changes Course Vital Signs: Vital signs: Vital Signs Temperature 98.1 F 01/10/25 17:40 Pulse Rate 62 01/10/25 20:11 Respiratory Rate 18 01/10/25 20:11 Blood Pressure 176/75 01/10/25 20:11 Pulse Oximetry 96 01/10/25 20:11 Oxygen Delivery Me thod Nasal Cannula 01/10/25 18:30 Oxygen Flow Rate 3 01/10/25 18:30 MDM - General Adult Medical Decision Making Nursing staff contacted patient's previous mcc she was at [facility] she was transferred a week ago we called there to find out when she last had dialysis they initially refused to give us any information. Nursing staff is going to contact her guardian so we can have him get that information from the previous facility. [facility]leen is telling us she has not had any dialysis since she arrived there last week. Care signed out to Dr. Chou at change of shift. See final notes for diagnosis and disposition. Medical Records I reviewed the patient's medical records. Lab Data I reviewed the patient's lab results. 01/10/25 17:54 01/10/25 17:54 Radiology Impressions Chest X-Ray 01/10/25 18:22 IMPRESSION: As above. Laboratory Results WBC 8.97 10^3/uL (3.29-11.43) 01/10/25 17:54 RBC 3.83 10^6/uL (3.85-5.65) L 01/10/25 17:54 Hgb 10.00 g/dL (11.27-16.99) L 01/10/25 17:54 Hct 34.8 % (36-47) L 01/10/25 17:54 MCV 90.9 fl (85-98) 01/10/25 17:54 MCH 26.1 pg (27-33) L 01/10/25 17:54 MCHC 28.7 g/dL (30-55) L 01/10/25 17:54 RDW 18.6 % (12.1-15.1) H 01/10/25 17:54 Plt Count 270 10^3/cmm (157-399) 01/10/25 17:54 MPV 9.3 fL (7.4-10.4) 01/10/25 17:54 Neut % (Auto) 79.9 % 01/10/25 17:54 Lymph % (Auto) 8.6 % 01/10/25 17:54 Wilcox % (Auto) 6.0 % 01/10/25 17:54 Eos % (Auto) 4.5 % 01/10/25 17:54 Baso % (Auto) 0.8 % 01/10/25 17:54 Neut # (Auto) 7.17 10^3/uL (1.8-7.7) 01/10/25 17:54 Lymph # (Auto) 0.8 10^3/uL (0.8-4.8) 01/10/25 17:54 Wilcox # (Auto) 0.5 10^3/uL (0.2-0.9) 01/10/25 17:54 Eos # (Auto) 0.4 10^3/uL (0.0-0.8) 01/10/25 17:54 Baso # (Auto) 0.1 10^3/uL (0.0-0.1) 01/10/25 17:54 Nucleated RBC % (auto) 0 % 01/10/25 17:54 Nucleated RBCs # 0.0 /100WBC 01/10/25 17:54 Sodium 143 mmol/L (136-145) 01/10/25 17:54 Potassium 4.3 mmol/L (3.5-5.1) 01/10/25 17:54 Chloride 105 mmol/L (98-107) 01/10/25 17:54 Carbon Dioxide 23 mmol/L (22-29) 01/10/25 17:54 Anion Gap 19.3 (5-19) H 01/10/25 17:54 BUN 41 mg/dL (8-23) H 01/10/25 17:54 Creatinine 2.5 mg/dL (0.5-0.9) H 01/10/25 17:54 GFR Calculation 19.4 mL/min (90-130) L 01/10/25 17:54 Glucose 199 mg/dL (65-115) H 01/10/25 17:54 Calculated Osmolality 312 mOsm/kg (285-295) H 01/10/25 17:54 Calcium 9.0 mg/dL (8.5-10.5) 01/10/25 17:54 Total Bilirubin 0.5 mg/dL (0.15-1.2) 01/10/25 17:54 AST 12 U/L (0-32) 01/10/25 17:54 ALT 7 U/L (0-33) 01/10/25 17:54 Alkaline Phosphatase 109 U/L (35-105) H 01/10/25 17:54 Total Protein 5.6 g/dL (6.6-8.7) L 01/10/25 17:54 Albumin 3.2 g/dL (3.5-5.2) L 01/10/25 17:54 Globulin 2.4 g/dL (1.3-4.6) 01/10/25 17:54 Discharge Plan Discharge Patient Disposition: Home Clinical Impression: ESRD (end stage renal disease) on dialysis, Edema, Venous stasis dermatitis Condition: Stable Prescriptions: New doxycycline monohydrate 100 mg capsule 100 mg PO BID 10 Days Qty: 20 0RF No Action (DME) Dexcom G7 Sensor Device See Rx Instructions .Route Qty: 1 0RF Rx Instructions: As directed (DME) Dexcom G7 Airport Driver Misc See Rx Instructions .Route Qty: 1 6RF Rx Instructions: As directed allopurinol 300 mg tablet 300 mg PO DAILY Qty: 90 0RF atorvastatin 40 mg tablet 40 mg PO BEDTIME cetirizine 10 mg Tablet 10 mg PO DAILY magnesium hydroxide [Milk of Magnesia] 400 mg/5 mL Suspension 30 ml PO DAILY PRN (Reason: Constipation) calcium carbonate 500 mg calcium (1,250 mg) Tablet,Chewable 500 mg PO Q8H PRN (Reason: gastro-esophageal reflux) acetaminophen [Tylenol] 325 mg Tablet 650 mg PO Q6H PRN (Reason: PAIN OR ELEVATED TEMP) clopidogrel 75 mg tablet 75 mg PO DAILY bisacodyl 10 mg Suppository 10 mg NH DAILY PRN (Reason: Constipation) polyethylene glycol 3350 [Miralax] 17 gram/dose Powder 17 g PO DAILY PRN (Reason: bowel managment) carvedilol [Coreg] 6.25 mg tablet 6.25 mg PO BID Qty: 60 0RF Rx Instructions: must administer with a meal/food bumetanide 1 mg tablet 1 mg PO DAILY Qty: 60 0RF hydralazine 25 mg Tablet 75 mg PO TID 30 Days Qty: 270 0RF ondansetron HCl 4 mg tablet 4 mg PO Q6H PRN (Reason: Nausea And Vomiting) ascorbic acid (vitamin C) [Vitamin C] 500 mg tablet 500 mg PO DAILY fluticasone propionate 50 mcg/actuation spray,suspension 1 spray INTRANASAL Q12H PRN (Reason: ALLERGIES) risperidone 1 mg Tablet 1 mg PO QAM lamotrigine 100 mg Tablet 100 mg PO TID bupropion HCl 150 mg Tablet Extended Release 24 Hr 150 mg PO QAM melatonin 5 mg Tablet 5 mg PO BEDTIME insulin aspart U-100 [Novolog FlexPen U-100 Insulin] 100 unit/mL (3 mL) insulin pen See Rx Instructions .ROUTE .COMPLEX Qty: 15 0RF Rx Instructions: Inject, subcut, 3 times daily, after meals, based on sliding scale provided 70-149=0 units 150-199=2units 200-249=4units 250-299=6units 300-349=8units 350-400=10units greater than 400 Call insulin glargine [Lantus Solostar U-100 Insulin] 100 unit/mL (3 mL) insulin pen 10 unit SUBCUT DAILY Qty: 15 0RF Discharge Orders: Discharge ED (Routine); Ordered 01/10/25 Ordered By: Evon Chou Referrals: Benigno Jennings DO [Primary Care Provider, Family Practice] Discharge Diet: Usual diet Discharge Activity: Resume usual activity Patient Instructions: Stasis Dermatitis (ED), End Stage Kidney Disease (ED), Opioid Safety, Pain Management Activity Restrictions/Additional Instructions: USP: Please arrange for dialysis as soon as possible. If patient develops worsening breathing or increased oxygen requirements please return to the ER. Thank you for choosing [facility] for your healthcare needs today. You have been screened and evaluated and felt safe for discharge. Health conditions do change or evolve sometimes and as such it is important that you follow up with your Primary Doctor to be re checked, 3-5 days is a general good time frame for follow up. You are always welcome to return to the ED for re assessment if your symptoms are worsening or you have new concerns Print Language: Austrian Coding Level of Care Code ED Rn Lactation for Chg Fwd Documented by User: Evon Chou MD 01/10/25 19:01 HPI - General Adult General: Chief complaint: General Medical Stated complaint: NEEDS DIALYSIS Time Seen by Provider: 01/10/25 17:46 Related Data Home Medications ?Medication ?Instructions ?Recorded ?Confirmed clopidogrel 75 mg tablet 75 mg PO DAILY 07/08/20 12/12/24 acetaminophen 325 mg tablet 650 mg PO Q6H PRN PAIN OR ELEVATED 10/03/21 12/12/24 (Tylenol) TEMP atorvastatin 40 mg tablet 40 mg PO BEDTIME 10/03/21 12/12/24 calcium carbonate 500 mg PO Q8H PRN 10/03/21 12/12/24 gastro-esophageal reflux cetirizine 10 mg tablet 10 mg PO DAILY 10/03/21 12/12/24 magnesium hydroxide 400 mg/5 mL 30 ml PO DAILY PRN Constipation 10/03/21 12/12/24 oral suspension (Milk of Magnesia) ascorbic acid (vitamin C) 500 mg 500 mg PO DAILY 03/03/24 12/12/24 tablet (Vitamin C) fluticasone propionate 50 1 spray intranasal Q12H PRN 03/03/24 12/12/24 mcg/actuation nasal ALLERGIES spray,suspension ondansetron HCl 4 mg tablet 4 mg PO Q6H PRN Nausea And Vomiting 03/03/24 12/12/24 bupropion HCl 150 mg 24 hr tablet, 150 mg PO QAM 07/16/24 12/12/24 extended release lamotrigine 100 mg tablet 100 mg PO TID 07/16/24 12/12/24 risperidone 1 mg tablet 1 mg PO QAM 07/16/24 12/12/24 melatonin 5 mg tablet 5 mg PO BEDTIME 08/30/24 12/12/24 bisacodyl 10 mg rectal suppository 10 mg NH DAILY PRN Constipation 12/12/24 12/12/24 polyethylene glycol 3350 17 17 g PO DAILY PRN bowel managment 12/12/24 12/12/24 gram/dose oral powder (Miralax) Previous Rx's ?Medication ?Instructions ?Recorded allopurinol 300 mg tablet 300 mg PO DAILY #90 tabs 05/03/20 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 sensor (Dexcom G7 #1 ea 03/12/23 Sensor device) 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,infrastructure manager,cont #1 ea 03/12/23 (Dexcom G7 Airport Driver) insulin aspart U-100 100 unit/mL See Rx Instructions .Route 09/07/24 (3 mL) subcutaneous pen (Novolog .COMPLEX #15 mL FlexPen U-100 Insulin aspart) insulin glargine 100 unit/mL (3 10 unit (0.1 mL) SUBCUT DAILY #15 09/07/24 mL) subcutaneous pen (Lantus mL Solostar U-100 Insulin) bumetanide 1 mg tablet 1 mg PO DAILY #60 tabs 12/16/24 carvedilol 6.25 mg tablet (Coreg) 6.25 mg PO BID #60 tabs 12/16/24 hydralazine 25 mg tablet 75 mg (3 x 25 mg) PO TID 30 days 12/16/24 #270 tabs doxycycline monohydrate 100 mg 100 mg PO BID 10 days #20 caps 01/10/25 capsule Allergies Allergy/AdvReac Type Severity Reaction Status Date / Time clarithromycin (From Biaxin) Allergy nausea Verified 09/14/24 06:32 clindamycin Allergy shock Verified 09/14/24 06:32 diclofenac Allergy swelling Verified 09/14/24 06:32 enalapril Allergy unknown Verified 09/14/24 06:32 ketorolac (From Toradol) Allergy short of Verified 09/14/24 06:32 breath losartan (From Cozaar) Allergy shock Verified 09/14/24 06:32 nifedipine (From Procardia) Allergy hives Verified 09/14/24 06:32 pregabalin (From Lyrica) Allergy unknown Verified 09/14/24 06:32 Sulfa (Sulfonamide Allergy anaphylasix Verified 09/14/24 06:32 Antibiotics) PFSH ED PFSH: Medical History CKD (chronic kidney disease) COPD (chronic obstructive pulmonary disease) LEROY on CPAP Diastolic heart failure Essential hypertension Insulin dependent type 2 diabetes mellitus Bilateral leg edema Chronic anemia Pacemaker Acute pancreatitis Sinus pause DELORIS (acute kidney injury) Altered mental status Paranoid Expressive aphasia Anxiety and depression Lives in assisted living facility Rotator cuff tear, right Diabetes mellitus insulin dependent Essential (primary) hypertension Depression due to cerebrovascular accident (CVA) Expressive aphasia Hypomagnesemia Bilateral pneumonia Hyponatremia Hyperkalemia Right humeral fracture Metabolic encephalopathy Resolved Acute delirium Resolved Pneumonia due to COVID-19 virus Resolved Poor social situation Multinodular thyroid Acute embolic stroke Recurrent falls Resolved History of CVA (cerebrovascular accident) Acute hypersomnolence disorder Essential hypertension Wernicke dysphasia Diabetes mellitus with neuropathy Mixed hyperlipidemia Surgical History History of nasal sinusotomy History of cholecystectomy History of tonsillectomy History of repair of rotator cuff History of hysterectomy for indication other than malignancy History of bursectomy Hx of adenoidectomy Status post anal fissurectomy History of colonoscopy Family History Mother CAD (coronary artery disease) Other Asthma Cancer Diabetes Heart disease Hypertension Stroke Social History Smoking and tobacco/nicotine status: former use of tobacco/nicotine Alcohol intake: current Alcohol intake frequency: few times a month Substance/Drug Use: never Course Vital Signs: Vital signs: Vital Signs Temperature 98.1 F 01/10/25 17:40 Pulse Rate 62 01/10/25 20:11 Respiratory Rate 18 01/10/25 20:11 Blood Pressure 176/75 01/10/25 20:11 Pulse Oximetry 96 01/10/25 20:11 Oxygen Delivery Me thod Nasal Cannula 01/10/25 18:30 Oxygen Flow Rate 3 01/10/25 18:30 MDM - General Adult Medical Decision Making Nursing staff contacted patient's previous mcc she was at [facility] she was transferred a week ago we called there to find out when she last had dialysis they initially refused to give us any information. Nursing staff is going to contact her guardian so we can have him get that information from the previous facility. [facility] is telling us she has not had any dialysis since she arrived there last week. Care signed out to Dr. Chou at change of shift. See final notes for diagnosis and disposition. Patient has no indication for emergent dialysis. Her BUN and creatinine are actually lower today at 41 and 2.5 and they were 4 days ago when seen in the emergency room. Chest x-ray is clear. Mild stable cardiomegaly. No pulmonary edema. No increased oxygen requirements. She is stable on 3 L with O2 sats in the upper 90s. She does have some venous stasis dermatitis. This seems a little more warm and red than might be appropriate. However nursing says this is exactly the same as it was 4 days ago when she was in the emergency room last. Placing her on some doxycycline for this. No leukocytosis. Also giving 80 mg dose of Lasix to help with her swelling. Lab Data 01/10/25 17:54 01/10/25 17:54 Radiology Impressions Chest X-Ray 01/10/25 18:22 IMPRESSION: As above. Laboratory Results WBC 8.97 10^3/uL (3.29-11.43) 01/10/25 17:54 RBC 3.83 10^6/uL (3.85-5.65) L 01/10/25 17:54 Hgb 10.00 g/dL (11.27-16.99) L 01/10/25 17:54 Hct 34.8 % (36-47) L 01/10/25 17:54 MCV 90.9 fl (85-98) 01/10/25 17:54 MCH 26.1 pg (27-33) L 01/10/25 17:54 MCHC 28.7 g/dL (30-55) L 01/10/25 17:54 RDW 18.6 % (12.1-15.1) H 01/10/25 17:54 Plt Count 270 10^3/cmm (157-399) 01/10/25 17:54 MPV 9.3 fL (7.4-10.4) 01/10/25 17:54 Neut % (Auto) 79.9 % 01/10/25 17:54 Lymph % (Auto) 8.6 % 01/10/25 17:54 Wilcox % (Auto) 6.0 % 01/10/25 17:54 Eos % (Auto) 4.5 % 01/10/25 17:54 Baso % (Auto) 0.8 % 01/10/25 17:54 Neut # (Auto) 7.17 10^3/uL (1.8-7.7) 01/10/25 17:54 Lymph # (Auto) 0.8 10^3/uL (0.8-4.8) 01/10/25 17:54 Wilcox # (Auto) 0.5 10^3/uL (0.2-0.9) 01/10/25 17:54 Eos # (Auto) 0.4 10^3/uL (0.0-0.8) 01/10/25 17:54 Baso # (Auto) 0.1 10^3/uL (0.0-0.1) 01/10/25 17:54 Nucleated RBC % (auto) 0 % 01/10/25 17:54 Nucleated RBCs # 0.0 /100WBC 01/10/25 17:54 Sodium 143 mmol/L (136-145) 01/10/25 17:54 Potassium 4.3 mmol/L (3.5-5.1) 01/10/25 17:54 Chloride 105 mmol/L (98-107) 01/10/25 17:54 Carbon Dioxide 23 mmol/L (22-29) 01/10/25 17:54 Anion Gap 19.3 (5-19) H 01/10/25 17:54 BUN 41 mg/dL (8-23) H 01/10/25 17:54 Creatinine 2.5 mg/dL (0.5-0.9) H 01/10/25 17:54 GFR Calculation 19.4 mL/min (90-130) L 01/10/25 17:54 Glucose 199 mg/dL (65-115) H 01/10/25 17:54 Calculated Osmolality 312 mOsm/kg (285-295) H 01/10/25 17:54 Calcium 9.0 mg/dL (8.5-10.5) 01/10/25 17:54 Total Bilirubin 0.5 mg/dL (0.15-1.2) 01/10/25 17:54 AST 12 U/L (0-32) 01/10/25 17:54 ALT 7 U/L (0-33) 01/10/25 17:54 Alkaline Phosphatase 109 U/L (35-105) H 01/10/25 17:54 Total Protein 5.6 g/dL (6.6-8.7) L 01/10/25 17:54 Albumin 3.2 g/dL (3.5-5.2) L 01/10/25 17:54 Globulin 2.4 g/dL (1.3-4.6) 01/10/25 17:54 All radiology interpretation(s) finalized by discharge Discharge Plan Discharge Patient Disposition: Home Clinical Impression: ESRD (end stage renal disease) on dialysis, Edema, Venous stasis dermatitis Condition: Stable Prescriptions: New doxycycline monohydrate 100 mg capsule 100 mg PO BID 10 Days Qty: 20 0RF No Action (DME) Dexcom G7 Sensor Device See Rx Instructions .Route Qty: 1 0RF Rx Instructions: As directed (DME) Dexcom G7 Airport Driver Misc See Rx Instructions .Route Qty: 1 6RF Rx Instructions: As directed allopurinol 300 mg tablet 300 mg PO DAILY Qty: 90 0RF atorvastatin 40 mg tablet 40 mg PO BEDTIME cetirizine 10 mg Tablet 10 mg PO DAILY magnesium hydroxide [Milk of Magnesia] 400 mg/5 mL Suspension 30 ml PO DAILY PRN (Reason: Constipation) calcium carbonate 500 mg calcium (1,250 mg) Tablet,Chewable 500 mg PO Q8H PRN (Reason: gastro-esophageal reflux) acetaminophen [Tylenol] 325 mg Tablet 650 mg PO Q6H PRN (Reason: PAIN OR ELEVATED TEMP) clopidogrel 75 mg tablet 75 mg PO DAILY bisacodyl 10 mg Suppository 10 mg NH DAILY PRN (Reason: Constipation) polyethylene glycol 3350 [Miralax] 17 gram/dose Powder 17 g PO DAILY PRN (Reason: bowel managment) carvedilol [Coreg] 6.25 mg tablet 6.25 mg PO BID Qty: 60 0RF Rx Instructions: must administer with a meal/food bumetanide 1 mg tablet 1 mg PO DAILY Qty: 60 0RF hydralazine 25 mg Tablet 75 mg PO TID 30 Days Qty: 270 0RF ondansetron HCl 4 mg tablet 4 mg PO Q6H PRN (Reason: Nausea And Vomiting) ascorbic acid (vitamin C) [Vitamin C] 500 mg tablet 500 mg PO DAILY fluticasone propionate 50 mcg/actuation spray,suspension 1 spray INTRANASAL Q12H PRN (Reason: ALLERGIES) risperidone 1 mg Tablet 1 mg PO QAM lamotrigine 100 mg Tablet 100 mg PO TID bupropion HCl 150 mg Tablet Extended Release 24 Hr 150 mg PO QAM melatonin 5 mg Tablet 5 mg PO BEDTIME insulin aspart U-100 [Novolog FlexPen U-100 Insulin] 100 unit/mL (3 mL) insulin pen See Rx Instructions .ROUTE .COMPLEX Qty: 15 0RF Rx Instructions: Inject, subcut, 3 times daily, after meals, based on sliding scale provided 70-149=0 units 150-199=2units 200-249=4units 250-299=6units 300-349=8units 350-400=10units greater than 400 Call insulin glargine [Lantus Solostar U-100 Insulin] 100 unit/mL (3 mL) insulin pen 10 unit SUBCUT DAILY Qty: 15 0RF Discharge Orders: Discharge ED (Routine); Ordered 01/10/25 Ordered By: Evon Chou Referrals: Benigno Jennings DO [Primary Care Provider, Family Practice] Discharge Diet: Usual diet Discharge Activity: Resume usual activity Patient Instructions: Stasis Dermatitis (ED), End Stage Kidney Disease (ED), Opioid Safety, Pain Management Activity Restrictions/Additional Instructions: USP: Please arrange for dialysis as soon as possible. If patient develops worsening breathing or increased oxygen requirements please return to the ER. Thank you for choosing [facility] for your healthcare needs today. You have been screened and evaluated and felt safe for discharge. Health conditions do change or evolve sometimes and as such it is important that you follow up with your Primary Doctor to be re checked, 3-5 days is a general good time frame for follow up. You are always welcome to return to the ED for re assessment if your symptoms are worsening or you have new concerns Print Language: Austrian Coding Level of Care Code ED Rn Lactation for Avery Rocha
[2025-01-10 17:59] LABS: Basophils # 0.1 10^3/uL (0.0-0.1); Basophils % 0.8 %; Eosinophils # 0.4 10^3/uL (0.0-0.8); Eosinophils % 4.5 %; Hematocrit 34.8 % (36-47); Lymphocytes # 0.8 10^3/uL (0.8-4.8); Lymphocytes % 8.6 %; Mean Corpuscular HGB Conc 28.7 g/dL (30-55); Mean Corpuscular Hemoglobin 26.1 pg (27-33); Mean Corpuscular Volume 90.9 fl (85-98); Mean Platelet Volume 9.3 fL (7.4-10.4); Monocytes # 0.5 10^3/uL (0.2-0.9); Neutrophils # 7.17 10^3/uL (1.8-7.7); Neutrophils % 79.9 %; Nucleated Red Blood Cells % 0 %; Platelet Count 270 10^3/cmm (157-399); Red Blood Count 3.83 10^6/uL (3.85-5.65); Red Cell Distribution Width 18.6 % (12.1-15.1); White Blood Count 8.97 10^3/uL (3.29-11.43)
[2025-01-10 18:19] LABS: Alanine Aminotransferase 7 U/L (0-33); Albumin Level 3.2 g/dL (3.5-5.2); Alkaline Phosphatase 109 U/L (35-105); Anion Gap 19.3 (5-19); Aspartate Amino Transferase 12 U/L (0-32); Blood Urea Nitrogen 41 mg/dL (8-23); Carbon Dioxide 23 mmol/L (22-29); Chloride 105 mmol/L (98-107); Creatinine Clr Calc Pharmacy 29.1646; Globulin 2.4 g/dL (1.3-4.6); Glomerular Filtration Rate 19.4 mL/min (90-130); Glucose 199 mg/dL (65-115); Osmolality Calculated 312 mOsm/kg (285-295); Potassium 4.3 mmol/L (3.5-5.1); Sodium 143 mmol/L (136-145); Total Bilirubin 0.5 mg/dL (0.15-1.2); Total Protein 5.6 g/dL (6.6-8.7)
--- NOTE | 2025-01-10 18:22 | XRR_ITS ---
PROCEDURE INFORMATION: Exam: XR Chest Exam date and time: 01/10/2025 6:24 PM Age: 64 years old Clinical indication: Shortness of breath; Prior surgery; Surgery date: 6+ months; Surgery type: Pacemaker, dialysis cath TECHNIQUE: Imaging protocol: Radiologic exam of the chest. Views: 1 view. COMPARISON: CR (CHEST, ) 01/06/2025 1:09 AM FINDINGS: Tubes, catheters and devices: Stable position of the right-sided central venous catheter. Lead cardiac pacemaker device overlying the left chest wall. Lungs: Mild persistent retrocardiac opacities. No new focal airspace abnormality. Pleural spaces: Unremarkable. No pleural effusion. No pneumothorax. Heart/Mediastinum: Mild cardiomegaly. Bones/joints: Unremarkable. XR/XR chest 1V portable [id number] IMPRESSION: As above.
[2025-01-10 18:30] VITALS: BP 156/96; PULSE 65; RESP 18; O2SAT 96
[2025-01-10 19:04] VITALS: BP 161/67; PULSE 86; RESP 18
[2025-01-10] MEDS: FUROsemide 10 mg/mL SDV 10mL 80 MG IVP (19:13)
[2025-01-10 20:11] VITALS: BP 176/75; PULSE 62; RESP 18; O2SAT 96
== END 2025-01-10 20:24 | disposition home or self-care (01) ==
PROVIDERS: Emergency Medicine; Emergency Provider Emergency Medicine; PCP Family Medicine
DX: I13.2 Hypertensive heart and chronic kidney disease with heart failure and with stage 5 chronic kidney disease, or end stage renal disease (principal); N18.6 End stage renal disease; J44.9 Chronic obstructive pulmonary disease, unspecified; G47.33 Obstructive sleep apnea (adult) (pediatric); I50.32 Chronic diastolic (congestive) heart failure; Z95.0 Presence of cardiac pacemaker; E78.2 Mixed hyperlipidemia; E11.22 Type 2 diabetes mellitus with diabetic chronic kidney disease; E11.40 Type 2 diabetes mellitus with diabetic neuropathy, unspecified; I69.320 Aphasia following cerebral infarction; Z87.891 Personal history of nicotine dependence; Z99.2 Dependence on renal dialysis; I87.2 Venous insufficiency (chronic) (peripheral); Z79.899 Other long term (current) drug therapy; Z79.4 Long term (current) use of insulin; Z99.81 Dependence on supplemental oxygen
CPT/HCPCS: 71045; 80053; 85025; 96374; 99284; J1938

== ENCOUNTER 2025-01-18 17:03 | Outpatient (CLI) | payer MEDICARE, SELFPAY ==
[2025-01-18 17:59] LABS: Albumin Level 3.3 g/dL (3.5-5.2); Anion Gap 15.7 (5-19); Blood Urea Nitrogen 31 mg/dL (8-23); Calcium 8.9 mg/dL (8.5-10.5); Carbon Dioxide 26 mmol/L (22-29); Chloride 104 mmol/L (98-107); Glomerular Filtration Rate 25.1 mL/min (90-130); Glucose 145 mg/dL (65-115); Phosphorus 4.3 mg/dL (2.5-4.5); Potassium 4.7 mmol/L (3.5-5.1); Sodium 141 mmol/L (136-145)
== END 2025-01-18 17:04 | disposition home or self-care (01) ==
PROVIDERS: PCP Family Medicine; Visit Provider Registered Nurse
DX: N18.9 Chronic kidney disease, unspecified (principal)
CPT/HCPCS: 36415; 80069

== ENCOUNTER 2025-02-07 16:30 | Outpatient (CLI) | payer MEDICARE, SELFPAY ==
[2025-02-07 17:37] LABS: Albumin Level 3.8 g/dL (3.5-5.2); Anion Gap 18.3 (5-19); Blood Urea Nitrogen 38 mg/dL (8-23); Calcium 8.8 mg/dL (8.5-10.5); Carbon Dioxide 25 mmol/L (22-29); Chloride 109 mmol/L (98-107); Glomerular Filtration Rate 21.3 mL/min (90-130); Glucose 142 mg/dL (65-115); Phosphorus 4.1 mg/dL (2.5-4.5); Potassium 4.3 mmol/L (3.5-5.1); Sodium 148 mmol/L (136-145)
[2025-02-07 17:42] LABS: Creatinine Urine, Random 48 mg/dL (28-217)
[2025-02-07 17:54] LABS: Microalbum Creatinine Ratio Ur 7813 mg/dL (0-20); Microalbumin Random Urine 375 ug/dL (0-20)
== END 2025-02-07 16:31 | disposition home or self-care (01) ==
LOC: LAB 16:33
PROVIDERS: PCP Family Medicine; Visit Provider Registered Nurse
DX: N18.9 Chronic kidney disease, unspecified (principal)
CPT/HCPCS: 80069; 82044

== ENCOUNTER 2025-02-21 13:47 | Outpatient (CLI) | payer MEDICARE, SELFPAY ==
[2025-02-21 13:59] LABS: Hematocrit 30.7 % (36-47); Hemoglobin 9.00 g/dL (11.27-16.99); Mean Corpuscular HGB Conc 29.3 g/dL (30-55); Mean Corpuscular Hemoglobin 26.8 pg (27-33); Mean Corpuscular Volume 91.4 fl (85-98); Nucleated Red Blood Cells % 0 %; Platelet Count 156 10^3/cmm (157-399); Red Blood Count 3.36 10^6/uL (3.85-5.65); White Blood Count 7.99 10^3/uL (3.29-11.43)
== END 2025-02-21 13:48 | disposition home or self-care (01) ==
LOC: LAB 13:49
PROVIDERS: PCP Family Medicine; Visit Provider Registered Nurse
DX: N18.9 Chronic kidney disease, unspecified (principal)
CPT/HCPCS: 85025

== ENCOUNTER 2025-03-09 16:47 | Outpatient (CLI) | payer MEDICARE, SELFPAY ==
[2025-03-09 17:01] LABS: Hematocrit 29.3 % (36-47); Hemoglobin 8.60 g/dL (11.27-16.99); Mean Corpuscular HGB Conc 29.4 g/dL (30-55); Mean Corpuscular Hemoglobin 26.7 pg (27-33); Mean Corpuscular Volume 91.0 fl (85-98); Nucleated Red Blood Cells % 0 %; Platelet Count 197 10^3/cmm (157-399); Red Blood Count 3.22 10^6/uL (3.85-5.65); White Blood Count 8.49 10^3/uL (3.29-11.43)
[2025-03-09 18:23] LABS: Calcium 8.9 mg/dL (8.5-10.5)
[2025-03-09 18:32] LABS: Creatinine Urine, Random 40 mg/dL (28-217)
[2025-03-09 18:49] LABS: Microalbum Creatinine Ratio Ur 5150 mg/dL (0-20)
[2025-03-09 18:51] LABS: Albumin Level 3.4 g/dL (3.5-5.2); Anion Gap 15.8 (5-19); Blood Urea Nitrogen 43 mg/dL (8-23); Calcium 9.0 mg/dL (8.5-10.5); Carbon Dioxide 26 mmol/L (22-29); Chloride 107 mmol/L (98-107); Glucose 107 mg/dL (65-115); Potassium 3.8 mmol/L (3.5-5.1); Sodium 145 mmol/L (136-145)
== END 2025-03-09 16:48 | disposition home or self-care (01) ==
PROVIDERS: PCP Family Medicine; Visit Provider Family Medicine
DX: E55.0 Rickets, active (principal)
CPT/HCPCS: 80069; 82044; 82306; 82310; 83970; 85025

== ENCOUNTER → 2025-03-23 10:00 | Outpatient (BNVA) | payer MEDICARE, SELFPAY | PROVIDERS: PCP Family Medicine; Visit Provider Thoracic Surgery (Cardiothoracic Vascular Surgery) | DX: R60.9 Edema, unspecified (principal) | CPT/HCPCS: 99213 ==

== ENCOUNTER → 2025-03-24 14:13 | Outpatient (BNVA) | payer MEDICARE, SELFPAY | PROVIDERS: PCP Family Medicine; Visit Provider Student in an Organized Health Care Education/Training Program | DX: N18.9 Chronic kidney disease, unspecified (principal); Z99.2 Dependence on renal dialysis | CPT/HCPCS: 99204 ==

== ENCOUNTER → 2025-04-21 10:48 | Outpatient (BNVA) | payer MEDICARE, SELFPAY | PROVIDERS: PCP Family Medicine; Visit Provider Thoracic Surgery (Cardiothoracic Vascular Surgery) | DX: R60.9 Edema, unspecified (principal) | CPT/HCPCS: 99212 ==

== ENCOUNTER 2025-05-07 16:34 | Outpatient (CLI) | payer MEDICARE, SELFPAY ==
[2025-05-07 17:15] LABS: Hematocrit 30.9 % (36-47); Hemoglobin 9.40 g/dL (11.27-16.99); Mean Corpuscular HGB Conc 30.4 g/dL (30-55); Mean Corpuscular Hemoglobin 27.3 pg (27-33); Mean Corpuscular Volume 89.8 fl (85-98); Nucleated Red Blood Cells % 0 %; Platelet Count 211 10^3/cmm (157-399); Red Blood Count 3.44 10^6/uL (3.85-5.65); White Blood Count 11.18 10^3/uL (3.29-11.43)
[2025-05-07 17:33] LABS: Creatinine Urine, Random 38 mg/dL (28-217)
[2025-05-07 17:53] LABS: Estmated Average Glucose 163; Hemoglobin A1C 7.3 % (4.0-6.0)
[2025-05-07 18:05] LABS: Microalbum Creatinine Ratio Ur 5263 mg/dL (0-20)
[2025-05-07 18:22] LABS: Cholesterol 180 mg/dL (0-200); HDL Cholesterol 42 mg/dL (60-100); Triglycerides 170 mg/dL (0-150)
== END 2025-05-07 16:35 | disposition home or self-care (01) ==
PROVIDERS: PCP Family Medicine; Visit Provider Family Medicine
DX: E11.9 Type 2 diabetes mellitus without complications (principal); I10 Essential (primary) hypertension
CPT/HCPCS: 80061; 82044; 83036; 85025

== ENCOUNTER 2025-05-11 10:19 | Day surgery (SDC) | payer MEDICARE, SELFPAY ==
--- NOTE | 2025-04-05 10:50 | PC.NURSE ---
Per critical care nurse practitioner Rubio Gavin, pt has not stopped plavix, she has been taking daily 75mg. Will send to clinic to contact for reschedule.
[2025-05-11] VITALS (9 sets, daily range): BP systolic 159–178; BP diastolic 70–89; PULSE 59–668; RESP 16–18; TEMP 36.2–36.7; O2SAT 93–97; BMI 37.8
--- NOTE | 2025-05-11 10:44 | W.PM.OPSFHP ---
Same Day Surgery H&P Indication for Procedure/HPI DATE OF PROCEDURE: May 11, 2025 CHIEF COMPLAINT/INDICATIONFOR SURGICAL PROCEDURE: CKD PREOP DIAGNOSIS: CKD PLANNED PROCEDURE: Operation Date: 05/11/25 11:30 Proposed Procedures p Removal of Tunneled Dialysis Catheter 38058 Z99.2(Not Applicable) - Davide Wolf MD Medications/Allergies* Home Medications ?Medication ?Instructions ?Recorded ?Confirmed ?Type clopidogrel 75 mg tablet 75 mg PO DAILY 07/08/20 04/05/25 History acetaminophen 325 mg tablet 650 mg PO Q6H PRN PAIN OR ELEVATED 10/03/21 04/05/25 History (Tylenol) TEMP atorvastatin 40 mg tablet 40 mg PO BEDTIME 10/03/21 04/05/25 History cetirizine 10 mg tablet 10 mg PO DAILY 10/03/21 04/05/25 History magnesium hydroxide 400 mg/5 mL 30 ml PO DAILY PRN Constipation 10/03/21 05/10/25 History oral suspension (Milk of Magnesia) fluticasone propionate 50 1 spray intranasal Q12H PRN 03/03/24 05/10/25 History mcg/actuation nasal ALLERGIES spray,suspension ondansetron HCl 4 mg tablet 4 mg PO Q6H PRN Nausea And Vomiting 03/03/24 05/10/25 History bupropion HCl 150 mg 24 hr tablet, 150 mg PO QAM 07/16/24 04/05/25 History extended release lamotrigine 100 mg tablet 100 mg PO TID 07/16/24 05/10/25 History risperidone 1 mg tablet 1 mg PO QAM 07/16/24 05/10/25 History melatonin 5 mg tablet 5 mg PO BEDTIME 08/30/24 05/10/25 History bisacodyl 10 mg rectal suppository 10 mg NC DAILY PRN Constipation 12/12/24 04/05/25 History polyethylene glycol 3350 17 17 g PO DAILY PRN bowel managment 12/12/24 05/10/25 History gram/dose oral powder (Miralax) Allergies/Adverse Reactions Allergy/AdvReac Type Severity Reaction Status Date / Time clarithromycin (From Biaxin) Allergy nausea Verified 04/05/25 10:34 clindamycin Allergy shock Verified 04/05/25 10:34 diclofenac Allergy swelling Verified 04/05/25 10:34 enalapril Allergy unknown Verified 04/05/25 10:34 ketorolac (From Toradol) Allergy short of Verified 04/05/25 10:34 breath losartan (From Cozaar) Allergy shock Verified 04/05/25 10:34 nifedipine (From Procardia) Allergy hives Verified 04/05/25 10:34 pregabalin (From Lyrica) Allergy unknown Verified 04/05/25 10:34 Sulfa (Sulfonamide Allergy anaphylasix Verified 04/05/25 10:34 Antibiotics) Pertinent History/Comorbid Conditions* Medical History (Updated 01/18/25 @ 00:00 by EVELYN Melchor) CKD (chronic kidney disease) COPD (chronic obstructive pulmonary disease) LEROY on CPAP Diastolic heart failure Essential hypertension Insulin dependent type 2 diabetes mellitus Bilateral leg edema Chronic anemia Pacemaker Acute pancreatitis Sinus pause DELORIS (acute kidney injury) Altered mental status Paranoid Expressive aphasia Anxiety and depression Lives in assisted living facility Rotator cuff tear, right Diabetes mellitus insulin dependent Essential (primary) hypertension Depression due to cerebrovascular accident (CVA) Expressive aphasia Hypomagnesemia Bilateral pneumonia Hyponatremia Hyperkalemia Right humeral fracture Metabolic encephalopathy Resolved Acute delirium Resolved Pneumonia due to COVID-19 virus Resolved Poor social situation Multinodular thyroid Acute embolic stroke Recurrent falls Resolved History of CVA (cerebrovascular accident) Acute hypersomnolence disorder Essential hypertension Wernicke dysphasia Diabetes mellitus with neuropathy Mixed hyperlipidemia Surgical History (Updated 07/08/20 @ 17:20 by Raad Chung MD) History of nasal sinusotomy History of cholecystectomy History of tonsillectomy History of repair of rotator cuff History of hysterectomy for indication other than malignancy History of bursectomy Hx of adenoidectomy Status post anal fissurectomy History of colonoscopy Family History (Updated 07/08/20 @ 17:20 by Raad Chung MD) Diabetes CAD (coronary artery disease) Mother Heart disease Cancer Hypertension Stroke Asthma Social History Smoking and tobacco/nicotine status: never used tobacco/nicotine Alcohol intake: current Alcohol intake frequency: few times a month Substance/Drug Use: never Pertinent Exam Findings alert, oriented x 3, clear to auscultation bilaterally, regular rate & rhythm and operative site marked Left chest tunneled dialysis catheter in place RRR Unlabored breathing ra Recommendations Risks and benefits of procedure reviewed and Patient/family agree to proceed Surgery/Procedure today Other Plans: TDC removal Coding Level of Care Code Acute Code for Chg Fwd
--- NOTE | 2025-05-11 11:38 | ANES.PREANE2 ---
Pre-Anesthetic Assessment Height/Weight: Height 1.63 m Weight 99.79 kg Temp Pulse Resp BP Pulse Ox O2 Del Method 97.4 F L 63 18 177/70 95 Room Air 05/11/25 11:04 05/11/25 11:04 05/11/25 11:04 05/11/25 11:04 05/11/25 11:04 05/11/25 11:10 Preop Diagnosis: CKD Operation Date: 05/11/25 11:30 Proposed Procedures p Removal of Tunneled Dialysis Catheter 82264 Z99.2(Not Applicable) - Davide Wolf MD Familial anesthetic complications: None Was Beta Angella taken within 24 hours: N/A Was Clonidine taken within 24 hours: N/A Last intake: Intake Last Liquid Date 05/11/25 Last Liquid Time 21:00 Last Solid Date 05/11/25 Last Solid Time 20:00 Social No alcohol and No tobacco Exam alert, oriented x 3, clear to auscultation bilaterally and regular rate & rhythm Airway Mallampati: Class II Dentition: full Pulmonary Chronic Obstructive Pulmonary Disease and Sleep Apnea CV/HEM Congestive Heart Failure Kidney Stones Metabolic Diabetes Mellitus and Hyperlipidemia Anesthetic Plan ASA status: 4 Anesthesia: MAC Risk of > 500 ml blood loss (7ml/kg in children): No Medications/Allergies Home Medications ?Medication ?Instructions ?Recorded ?Confirmed ?Last Taken ?Type allopurinol 300 mg tablet 300 mg PO DAILY #90 tabs 05/03/20 04/05/25 05/10/25 Rx clopidogrel 75 mg tablet 75 mg PO DAILY 07/08/20 04/05/25 05/05/25 History acetaminophen 325 mg tablet 650 mg PO Q6H PRN PAIN OR ELEVATED 10/03/21 04/05/25 12/12/24 07:40 History (Tylenol) TEMP atorvastatin 40 mg tablet 40 mg PO BEDTIME 10/03/21 04/05/25 05/09/25 History cetirizine 10 mg tablet 10 mg PO DAILY 10/03/21 04/05/25 05/10/25 History magnesium hydroxide 400 mg/5 mL 30 ml PO DAILY PRN Constipation 10/03/21 05/10/25 12/10/24 12:10 History oral suspension (Milk of Magnesia) 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 sensor ([employer] G7 #1 ea 03/12/23 03/24/25 Unknown Rx Sensor device) 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,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,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 03/12/23 03/24/25 Unknown 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) fluticasone propionate 50 1 spray intranasal Q12H PRN 03/03/24 05/10/25 11/20/24 History mcg/actuation nasal ALLERGIES spray,suspension ondansetron HCl 4 mg tablet 4 mg PO Q6H PRN Nausea And Vomiting 03/03/24 05/10/25 12/11/24 19:20 History bupropion HCl 150 mg 24 hr tablet, 150 mg PO QAM 07/16/24 04/05/25 05/10/25 History extended release lamotrigine 100 mg tablet 100 mg PO TID 07/16/24 05/10/25 05/10/25 History risperidone 1 mg tablet 1 mg PO QAM 07/16/24 05/10/25 05/10/25 History melatonin 5 mg tablet 5 mg PO BEDTIME 08/30/24 05/10/25 05/09/25 History insulin aspart U-100 100 unit/mL See Rx Instructions .Route 09/07/24 05/10/25 12/12/24 07:10 Rx (3 mL) subcutaneous pen (Novolog .COMPLEX #15 mL FlexPen U-100 Insulin aspart) insulin glargine 100 unit/mL (3 10 unit (0.1 mL) SUBCUT DAILY #15 09/07/24 05/10/25 05/09/25 Rx mL) subcutaneous pen (Lantus mL Solostar U-100 Insulin) bisacodyl 10 mg rectal suppository 10 mg NM DAILY PRN Constipation 12/12/24 04/05/25 Unknown History polyethylene glycol 3350 17 17 g PO DAILY PRN bowel managment 12/12/24 05/10/25 12/07/24 19:35 History gram/dose oral powder (Miralax) bumetanide 1 mg tablet 1 mg PO DAILY #60 tabs 12/16/24 04/05/25 05/10/25 Rx carvedilol 6.25 mg tablet (Coreg) 6.25 mg PO BID #60 tabs 12/16/24 04/05/25 05/10/25 Rx hydralazine 25 mg tablet 75 mg (3 x 25 mg) PO TID 30 days 12/16/24 05/10/2525 Rx #270 tabs Allergies Allergy/AdvReac Type Severity Reaction Status Date / Time clarithromycin (From Biaxin) Allergy nausea Verified 04/05/25 10:34 clindamycin Allergy shock Verified 04/05/25 10:34 diclofenac Allergy swelling Verified 04/05/25 10:34 enalapril Allergy unknown Verified 04/05/25 10:34 ketorolac (From Toradol) Allergy short of Verified 04/05/25 10:34 breath losartan (From Cozaar) Allergy shock Verified 04/05/25 10:34 nifedipine (From Procardia) Allergy hives Verified 04/05/25 10:34 pregabalin (From Lyrica) Allergy unknown Verified 04/05/25 10:34 Sulfa (Sulfonamide Allergy anaphylasix Verified 04/05/25 10:34 Antibiotics) [facility] Anesthesia Medical History CKD (chronic kidney disease) COPD (chronic obstructive pulmonary disease) LEROY on CPAP Diastolic heart failure Essential hypertension Insulin dependent type 2 diabetes mellitus Bilateral leg edema Chronic anemia Pacemaker Acute pancreatitis Sinus pause DELORIS (acute kidney injury) Altered mental status Paranoid Expressive aphasia Anxiety and depression Lives in assisted living facility Rotator cuff tear, right Diabetes mellitus insulin dependent Essential (primary) hypertension Depression due to cerebrovascular accident (CVA) Expressive aphasia Hypomagnesemia Bilateral pneumonia Hyponatremia Hyperkalemia Right humeral fracture Metabolic encephalopathy Resolved Acute delirium Resolved Pneumonia due to COVID-19 virus Resolved Poor social situation Multinodular thyroid Acute embolic stroke Recurrent falls Resolved History of CVA (cerebrovascular accident) Acute hypersomnolence disorder Essential hypertension Wernicke dysphasia Diabetes mellitus with neuropathy Mixed hyperlipidemia Surgical History History of nasal sinusotomy History of cholecystectomy History of tonsillectomy History of repair of rotator cuff History of hysterectomy for indication other than malignancy History of bursectomy Hx of adenoidectomy Status post anal fissurectomy History of colonoscopy Family History Mother CAD (coronary artery disease) Other Asthma Cancer Diabetes Heart disease Hypertension Stroke Social History Smoking and tobacco/nicotine status: never used tobacco/nicotine Alcohol intake: current Alcohol intake frequency: few times a month Substance/Drug Use: never Data Anesthesia Cardiac Studies: Echocardiogram 11/23/24 Echocardiogram Limited Views 07/29/24 Echocardiogram Ultrasound 07/09/20 Cardiac Event Monitor 07/10/20
[2025-05-11] MEDS: lidocaine-epi 1% 20 mL INJ INJECTION (12:01)
[2025-05-11] MEDS: ceFAZolin 2,000 mg SDV 2000 MG IVP (12:02)
--- NOTE | 2025-05-11 12:06 | PM.OP ---
Operative Report Date of procedure: May 11, 2025 Pre-op diagnosis: Chronic kidney disease Post-op diagnosis: same Post-op findings: Tunneled dialysis catheter removed in its entirety. Tip sent for culture. Rest of catheter sent to pathology. Procedure done: Tunneled dialysis catheter removal Implants: N/A Specimens removed/disposition: Tunneled dialysis catheter removed in its entirety. Tip sent for culture. Rest of catheter sent to pathology. Pathology: Tunneled dialysis catheter removed in its entirety. Tip sent for culture. Rest of catheter sent to pathology. Surgeon: Davide Wolf MD Product Design Specialist: N/A Anesthesia: Local Estimated blood loss (mL): 5 Complications: N/A Findings: Tunneled dialysis catheter removed in its entirety. Tip sent for culture. Rest of catheter sent to pathology. Condition: stable Disposition: same day Brief History: 65-year-old female who presented with a tunneled dialysis catheter. Per nephrology does not need the dialysis catheter anymore. Discussed risk and benefits and patient agreed to proceed with tunneled dialysis catheter removal in the OR. Procedure: Consent obtained in the preop area. Patient transferred to the OR. Prophylactic antibiotics administered. SCDs on and working. Right chest was prepped and draped in the usual sterile fashion. Local infiltration using 1% lidocaine with epinephrine carried out at the site of the catheter. An incision was performed using a 15 blade over the site of the cuff of the catheter. Electrocautery was used to dissect around the cuff of the catheter. A hemostat was used for blunt dissection to free up the cuff of the catheter from the subcutaneous tissues. Once the cuff was free, the catheter was pulled in its entirety. Pressure was held over the catheter tract for 5 minutes. Adequate hemostasis was confirmed. An intraoperative 3-0 nylon stitch was placed over the site of the cuff and at the site of the catheter removal. Steri-Strips were placed to close the incisions loosely. Sterile dressing was applied. The patient was transferred to PACU without any complications.
--- NOTE | 2025-05-11 12:26 | SUR.PHASEII ---
12:20 indirect heat applied.. dressing clean and dry.
== END 2025-05-11 14:05 | disposition home or self-care (01) ==
PROVIDERS: PCP Family Medicine; Visit Provider Student in an Organized Health Care Education/Training Program
PROC: (CPT 49422; principal; 2025-05-11 11:30)
DX: E11.22 Type 2 diabetes mellitus with diabetic chronic kidney disease (principal); I13.0 Hypertensive heart and chronic kidney disease with heart failure and stage 1 through stage 4 chronic kidney disease, or unspecified chronic kidney disease; N18.9 Chronic kidney disease, unspecified; I50.30 Unspecified diastolic (congestive) heart failure; J44.9 Chronic obstructive pulmonary disease, unspecified; G47.33 Obstructive sleep apnea (adult) (pediatric); Z99.89 Dependence on other enabling machines and devices; Z95.0 Presence of cardiac pacemaker; Z86.73 Personal history of transient ischemic attack (TIA), and cerebral infarction without residual deficits; E78.2 Mixed hyperlipidemia; F41.8 Other specified anxiety disorders; Z79.4 Long term (current) use of insulin
CPT/HCPCS: 49422; 36416; 82962; 87070; 87075; 87077; 87186; 87205; 88300; J0690; J2704; J3010; J7030; J9999

== ENCOUNTER 2025-05-16 10:35 | Emergency (ER) | payer MEDICARE, SELFPAY ==
[2025-05-16 10:35] VITALS: BP 156/73; PULSE 71; RESP 16; TEMP 36.9; O2SAT 96
--- OUTSIDE RECORDS SUMMARY | 2025-05-16 10:45 | XMS_ITS | Encounter Summary ---
Author Organization [facility] Address [address] [place] [address] Care Team Providers Care [employer] Name Role Phone Kristi Khalil DO Primary Care Provider [phone] Encounter Details Date Type Department Care Team (Latest Contact Info) Description 07/26/2002 Outpatient Historical [facility] Family Medicine- [address] [place] [address] Meseret Segovia MD NO ADDRESS ON FILE ACUTE URI NOS (Primary Dx); ACUTE SINUSITIS NOS Social History Tobacco Use Types Packs/Day Years Used Date Smoking Tobacco: Never Assessed Comments Unknown Sex and Gender Information Value Date Recorded Sex Assigned at Not on file 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
--- OUTSIDE RECORDS SUMMARY | 2025-05-16 10:45 | XMS_ITS | Clinical Summary ---
Author Organization [facility] Address [address] [place] [address] Phone Care Team Providers Care Template Inspector Name Role Phone Kristi Khalil DO Primary Care Provider +1- [phone] Allergies Active Allergy Reactions Criticality Noted Date Comments Clarithromycin Nausea and Vomiting Low 08/02/2024 Clindamycin Anaphylaxis High 08/02/2024 Diclofenac Swelling Low 08/02/2024 Enalapril Unknown 08/02/2024 Ketorolac Shortness of Breath/Wheezing High 08/02/2024 Losartan Anaphylaxis High 08/02/2024 Nifedipine Hives High 08/02/2024 Pregabalin Unknown 08/02/2024 Sulfa (Sulfonamide Antibiotics) Anaphylaxis High 08/02/2024 Medications ascorbic acid (VITAMIN C) 500 mg Tablet, Chewable Take 500 mg by mouth daily. Active diphenhydrAMINE (BENADRYL) 25 mg tablet Take 25 mg by mouth every 12 hours as needed for Allergies. Active fluticasone propionate (FLONASE) 50 mcg/spray [place], Suspension nasal inhaler Administer 2 Sprays in each nostril every 12 hours as needed for Rhinitis. Active lidocaine (LIDODERM) 5 % Adhesive Patch, Medicated Apply 1 Patch to affected area every 12 hours as needed for Pain. Active ondansetron (ZOFRAN) 4 mg Tablet Take 4 mg by mouth every 6 hours as needed for Nausea/Emesis. Active buPROPion HCL (WELLBUTRIN SR) 150 mg Sustained Release 12 hour tablet Take 150 mg by mouth daily. Active eszopiclone (LUNESTA) 3 mg Tablet Take 3 mg by mouth nightly as needed for Insomnia. Active lamoTRIgine (LaMICtal) 100 mg tablet Take 100 mg by mouth 3 times daily. Active melatonin 5 mg Tablet Take 10 mg by mouth nightly as needed for Insomnia. Active risperiDONE (RisperDAL M-Tabs) 1 mg Tablet, Rapid Dissolve Take 1 mg by mouth daily. Active allopurinoL (ZYLOPRIM) 300 mg tablet Take 300 mg by mouth daily. Active traMADoL (ULTRAM) 50 mg tablet Take 50 mg by mouth every 6 hours as needed for Pain. Active amLODIPine (NORVASC) 10 mg tablet Take 10 mg by mouth daily. Active DULoxetine (CYMBALTA) 60 mg Capsule, Delayed Release(E.C.) Take 60 mg by mouth daily. Active insulin aspart (NovoLOG) 100 unit/mL injection Inject by subcutaneous injection. Active insulin glargine (LANTUS) 100 unit/mL pen syringe Inject 20 Units by subcutaneous injection 2 times daily. Active OLANZapine (ZyPREXA) 5 mg tablet Take 5 mg by mouth daily at bedtime. Active Active Problems Problem Noted Date Diagnosed Date Type 2 diabetes mellitus, wi th long-term current use of insulin 08/21/2024 Cellulitis of lower extremity 08/21/2024 Altered mental status 08/08/2024 Pneumonia due to infectious organism 08/04/2024 Acute cystitis without hematuria 08/04/2024 S/P placement of cardiac pacemaker 08/03/2024 DELORIS (acute kidney injury) 08/02/2024 Acute on chronic respiratory failure with hypoxi a 08/02/2024 Symptomatic bradycardia 08/02/2024 LEROY on CPAP 08/02/2024 HTN (hypertension), benign 08/02/2024 HLD (hyperlipidemia) 08/02/2024 Acute rhinosinusitis 08/02/2024 Acute cyclitis 08/02/2024 Acute metabolic encephalopathy 08/02/2024 Sinus pause 08/01/2024 Sick sinus syndrome 08/01/2024 Encounters Date Type Department Care Team Description 04/19/2025 External Device Data STL ABSTRACTION Provider, Abstract 04/05/2025 External Device Data STL ABSTRACTION Provider, Abstract 04/05/2025 External Device Data STL ABSTRACTION Provider, Abstract 03/15/2025 External Device Data STL ABSTRACTION Provider, Abstract 03/02/2025 External Device Data STL ABSTRACTION Provider, Abstract 03/01/2025 External Device Data STL ABSTRACTION Provider, Abstract 2025 External Device Data STL ABSTRACTION Provider, Abstract from Last 3 Months Social History Tobacco Use Types Packs/Day Years Used Date Smoking Tobacco: Never Tobacco Cessation:Counseling Given: Not Answered Feeling Safe Answer Date Recorded Are you in a relationship wi th someone who hurts you emotionally and/or physically? No 10/19/2024 Food Insecurity Answer Date Recorded Patient needs follow up regardin 12/10/2024 Transportation Needs Answer Date Record ed Patient needs follow up regardin 12/10/2024 Housing Stability Answer Date Recorded Social/Environmental Concerns No concerns Utility Needs Answer Date Recorded Patient needs follow up regardin 12/10/2024 Comments No Sex and Gender Information Value Date Recorded Sex Assigned at Not on file Legal Sex Female 12:17 PM REGULATORY SUBMISSIONS ASSOCIATE Gender Identity Not on file Sexual Orientation Not on file Last Filed Vital Signs Vital Sign Reading Time Taken Comments Blood Pressure 169/78 10/19/2024 10:00 AM REGULATORY SUBMISSIONS ASSOCIATE Pulse 71 10/19/2024 8:00 AM REGULATORY SUBMISSIONS ASSOCIATE Temperature 35.9 C (96.6 F) 10/19/2024 7:28 AM REGULATORY SUBMISSIONS ASSOCIATE Respiratory Rate 18 10/19/2024 10:0 0 AM REGULATORY SUBMISSIONS ASSOCIATE Oxygen Saturation 95% 10/19/2024 10: 00 AM REGULATORY SUBMISSIONS ASSOCIATE Inhaled Oxygen Concentration - - Weight 125.7 kg (277 lb 1.9 oz) 10/19/2024 7:28 AM REGULATORY SUBMISSIONS ASSOCIATE Height 165.1 cm (5' 5 ) 10/19/2024 7:28 AM REGULATORY SUBMISSIONS ASSOCIATE Body Mass Index 46.12 10/19/2024 7:28 AM REGULATORY SUBMISSIONS ASSOCIATE Plan of Treatment Health Maintenance Due Date Last Done Comments DIABETES ANNUAL FOOT EXAM 02/21/1978 DIABETES ANNUAL RETINAL EXAM 02/21/1978 LDL CHOLESTEROL ANNUAL 02/21/1978 DTAP/TDAP/TD VACCINES (1 - Tdap) 02/21/1979 PNEUMOCOCCAL VACCINE 50+ YEA RS (1 of 2 - PCV) 02/21/1979 BREAST CANCER SCREENING 2000 COLORECTAL SCREENING 02/21/2005 Colorectal Cancer Screening 02/21/2005 FIT-DNA Q 3 years 02/21/2005 FIT/FOBT Q 1 year 02/21/2005 Flex Sig/CT Colonography Q 5 years 02/21/2005 ZOSTER VACCINE (1 of 2) 02/21/2010 RSV VACCINE (60+ or ) (1 - Risk 60-74 years 1-dose series) 2020 DIABETES MICROALBUMIN ANNUAL SCREEN 12/21/202112/21 OSTEOPOROSIS SCREENING 02/21/2025 INFLUENZA VACCINE (#1) 2025 06/08/2021, 2018 COVID-19 Vaccine ( season) 2025 11/30/2021, 09/23/2020, 08/26/2020 DIABETES HBA1C Q 6 MONTHS 07/07/2025 01/04/2025, Medical Devices Implanted Type Area Farm Machinery Assembler Device Identifier Shelf Expiration Date Model / Serial / Lot Lead Capsurefix Novus 58cm Endocardial Pacing [id number] - [id number] Implanted:Qty: 1 on 08/02/2024 by Nina Lynn MD at [facility] Lead Left: Chest Wall [employer]- CRM - BULK BUY [id number] 05/18/2026 [id number] / [id number] / Lead Pacing Capsure Fix Novus 52cm [id number] - Csc - [id number] Implanted:Qty: 1 on 08/02/2024 by Nina Lynn MD at [facility] Lead Left: Chest Wall [employer]- CRM - BULK BUY [id number] 05/18/2026 [id number] / [id number] / Pacemaker Wendi Xt Dr Goetz Ipg Dual Chmbr Surescan [id number] - [id number] Implanted:Qty: 1 on 08/02/2024 by Nina Lynn MD at [facility] Pacemaker Left: Chest Wall [employer]- CRM - BULK BUY [id number] 11/12/2025 [id number] / [id number] / Procedures Procedure Name Priority Date/Time Associated Diagnosis Comments HEMOGLOBIN A1C Routine 08/02/2024 9:37 AM REGULATORY SUBMISSIONS ASSOCIATE MICROALBUMIN/CREATIN INE RATIO, RANDOM UR Routine 12/21/2020 6:00 AM CDT from Last 3 Months or Most Recently Relevant to Health Maintenance Results * (ABNORMAL) HEMOGLOBIN A1C (08/02/2024 9:37 AM REGULATORY SUBMISSIONS ASSOCIATE) HEMOGLOBIN A1C 7.5(H) <=5.6 % 08/04/2024 9:38 AM [facility] EST. AVG GLUCOSE, A1C 169 mg/dL 08/04/2024 9:38 AM [facility] Blood Venipuncture / Unknown 08/02/2024 9:37 AM REGULATORY SUBMISSIONS ASSOCIATE 08/02/2024 9:44 AM REGULATORY SUBMISSIONS ASSOCIATE [facility] - 08/04/2024 9:38 AM REGULATORY SUBMISSIONS ASSOCIATE HGB A1C INTERPRETATION NORMAL: <5.7% PRE-DIABETES: 5.7 - 6.4% DIABETES: 6.5% OR GREATER Nina Lynn MD CHEMISTRY ORDERABLES Fi nal Result Performing Organization Address City/State/[facility] Co de Phone Number [facility] CLIA # [id number] [address] [place] [address] * (ABNORMAL) MICROALBUMIN/CREATININE RATIO, RANDOM UR (12/21/2020 6:00 AM CDT) [facility] MICROALBUMIN, URINE <1.2 No Reference Range mg/dL 12/21/2020 7:47 PM CDT [facility] CREATININE, URINE 27.7(L) 29.0 - 226.0 mg/dL 12/21/2020 7:47 PM T [facility] Comment:Reference Range vari es with fluid intake and diet. Urine URINE SPECIMEN OBTAINED BY CLEAN CATCH PROCEDURE / Unknown Collection / Unknown 12/21/2020 6:00 AM CDT 12/21/2020 7:05 PM CDT [facility] - 12/21/2020 7:47 PM CDT Condition Microalbumin/Creat ratio Normal Males <17 Normal Females <25 Microalbuminuria Males 17-299 Microalbuminuria Females 25-299 Overt proteinuria >=300 Unable to calculate urine microalbumin/creatinine ratio because urine microalbumin result is outside of reportable range. Marguerite Gage STUDENT SUPPORT ADVISOR URINE ORDERABLES Lynnette martinez Result Performing Organization Address City/State/[facility] Co de Phone Number [facility] [address] [place] [address] [facility] [employer] [facility] CLIA# [id number] [address] [place] [address] from Last 3 Months or Most Recently Relevant to Health Maintenance Insurance [facility] [place] Medicare Part D [facility] MCR Advance Directives For more information, please contact: [phone] Documents on File Type Date Recorded Patient Telephone Order Clerk Expl anation Advance Directive POA 08/11/2024 7:36 PM LEGAL GUARDIAN CASENET PAPER * Full Code (Latest Code Status on File) Date Activated Date Inactivated Comments 08/03/2024 1:07 PM 08/24/2024 7:15 PM * Default Full Code - Needs Discussion Date Activated Date Inactivated Comments 08/01/2024 11:50 PM 08/03/2024 1:07 PM Care Teams Template Inspector Relationship Specialty Start Date End Date Kristi Khalil DO [address] [place] [address] PCP - General Family Practice 08/17/19
--- OUTSIDE RECORDS SUMMARY | 2025-05-16 10:45 | XMS_ITS | Encounter Summary ---
Author Organization [employer] [facility] Address [address] [place] [address] Care Team Providers Care Advertising Consultant Name Role Phone Kristi Khalil DO Primary Care Provider +1- [phone] Encounter Details Date Type Department Care Team (Latest Contact Info) Description 01/27/2003 Outpatient Historical HIS [facility] Mahesh Dee MD [address] [place] [address] HYPERHIDROSIS (Primary Dx); DYSMETABOLIC SYNDROME X Social History Tobacco Use Types Packs/Day Years Used Date Smoking Tobacco: Never Assessed Comments Unknown Sex and Gender Information Value Date Recorded Sex Assigned at Not on file Legal Sex Female 5:05 AM AUTHORIZATION COORDINATOR Gender Identity Not on file Sexual Orientation Not on file documented as of this encounter Plan of Treatment Not on file documented as of this encounter Visit Diagnoses Diagnosis Generalized hyperhidrosis- Primary Dysmetabolic syndrome X Dysmetabolic Syndrome X documented in this encounter Care Teams Advertising Consultant Relationship Specialty Start Date End Date Kristi Khalil DO [address] [place] [address] PCP - General Family Practice 08/17/19 documented as of this encounter
--- OUTSIDE RECORDS SUMMARY | 2025-05-16 10:45 | XMS_ITS | Encounter Summary ---
Author Organization [employer] [facility] Address [address] [place] [address] Care Team Providers Care Single Wire Saw Operator Name Role Phone Kristi Khalil DO Primary Care Provider +1- [phone] Encounter Details Date Type Department Care Team (Latest Contact Info) Description 09/24/2002 Outpatient Historical HIS [facility] Mahesh Dee MD [address] [place] [address] OTHER MALAISE AND FATIGUE (Primary Dx); HYPERTENSION NOS; JOINT PAIN-UNSPEC Social History Tobacco Use Types Packs/Day Years Used Date Smoking Tobacco: Never Assessed Comments Unknown Sex and Gender Information Value Date Recorded Sex Assigned at Not on file Legal Sex Female 5:05 AM CANCER RESEARCHER Gender Identity Not on file Sexual Orientation Not on file documented as of this encounter Plan of Treatment Not on file documented as of this encounter Visit Diagnoses Diagnosis Other malaise and fatigue- Primary Unspecified essential hypertension Pain in joint, site unspecified documented in this encounter Care Teams Single Wire Saw Operator Relationship Specialty Start Date End Date Kristi Khalil DO [address] [place] [address] PCP - General Family Practice 08/17/19 documented as of this encounter
--- OUTSIDE RECORDS SUMMARY | 2025-05-16 10:45 | XMS_ITS | Encounter Summary ---
Author Organization [employer] [facility] Address [address] [place] [address] Care Team Providers Care Strip Mill Operator Name Role Phone Kristi Khalil DO Primary Care Provider +1- [phone] Encounter Details Date Type Department Care Team (Latest Contact Info) Description 11/24/2002 Outpatient Historical HIS [facility] Mahesh Dee MD [address] [place] [address] HYPERTENSION NOS (Primary Dx); DYSMETABOLIC SYNDROME X; CHEST PAIN NOS; ALLERGIC RHINITIS NOS Social History Tobacco Use Types Packs/Day Years Used Date Smoking Tobacco: Never Assessed Comments Unknown Sex and Gender Information Value Date Recorded Sex Assigned at Not on file Legal Sex Female 5:05 AM RETURNS PROCESSOR Gender Identity Not on file Sexual Orientation Not on file documented as of this encounter Plan of Treatment Not on file documented as of this encounter Visit Diagnoses Diagnosis Unspecified essential hypertension- Primary Dysmetabolic syndrome X Dysmetabolic Syndrome X Chest pain, unspecified Allergic rhinitis, cause unspecified documented in this encounter Care Teams Strip Mill Operator Relationship Specialty Start Date End Date Kristi Khalil DO [address] [place] [address] PCP - General Family Practice 08/17/19 documented as of this encounter
--- OUTSIDE RECORDS SUMMARY | 2025-05-16 10:45 | XMS_ITS | Encounter Summary ---
Author Organization [facility] Address [address] [place] [address] Care Team Providers Care Web Software Engineer Name Role Phone rKisti Khalil DO Primary Care Provider +1- [phone] Encounter Details Date Type Department Care Team (Latest Contact Info) Description 06/09/2001 Outpatient Historical [facility] Family Medicine [address] [phone] Yan Aranda DO NO ADDRESS ON FILE Acute sinusitis, unspecified (Primary Dx) Social History Tobacco Use Types Packs/Day Years Used Date Smoking Tobacco: Never Assessed Comments Unknown Sex and Gender Information Value Date Recorded Sex Assigned at Not on file Legal Sex Female 5:05 AM MANAGER ORGANIZATIONAL Gender Identity Not on file Sexual Orientation Not on file documented as of this encounter Plan of Treatment Not on file documented as of this encounter Visit Diagnoses Diagnosis Acute sinusitis, unspecified- Primary documented in this encounter Care Teams Web Software Engineer Relationship Specialty Start Date End Date Kristi Khalil DO [address] [place] [address] PCP - General Family Practice 08/17/19 documented as of this encounter
--- OUTSIDE RECORDS SUMMARY | 2025-05-16 10:45 | XMS_ITS | Encounter Summary ---
Author Organization [employer] [facility] Address [address] [place] [address] Care Team Providers Care Preschool Teacher Aide Name Role Phone Kristi Khalil DO Primary Care Provider +1- [phone] Encounter Details Date Type Department Care Team (Late st Contact Info) Description 01/27/2003 Outpatient Historical HIS [facility] Mahesh Dee MD [address] [place] [address] Social History Tobacco Use Types Packs/Day Years Used Date Smoking Tobacco: Never Assessed Comments Unknown Sex and Gender Information Value Date Recorded Sex Assigned at Not on file Legal Sex Female 5:05 AM POT RELINER Gender Identity Not on file Sexual Orientation Not on file documented as of this encounter Plan of Treatment Not on file documented as of this encounter Visit Diagnoses Not on filedocumented in this encounter Care Teams Preschool Teacher Aide Relationship Specialty Start Date End Date Kristi Khalil DO [address] [place] [address] PCP - General Family Practice 08/17/19 documented as of this encounter
--- OUTSIDE RECORDS SUMMARY | 2025-05-16 10:45 | XMS_ITS | Encounter Summary ---
Author Organization [facility] Address [address] [place] [address] Care Team Providers Care Fuel Management Handler Name Role Phone Kristi Khalil DO Primary Care Provider +1- [phone] Encounter Details Date Type Department Care Team (Latest Contact Info) Description 06/23/2001 Outpatient Historical [facility] [address] [phone] Yan Aranda DO NO ADDRESS ON FILE FLUID OVERLOAD (Primary Dx); HYPERTENSION NOS; ALLERGIC RHINITIS NOS; ACUTE SINUSITIS NOS Social History Tobacco Use Types Packs/Day Years Used Date Smoking Tobacco: Never Assessed Comments Unknown Sex and Gender Information Value Date Recorded Sex Assigned at Not on file Legal Sex Female 5:05 AM ORGAN BUILDER Gender Identity Not on file Sexual Orientation Not on file documented as of this encounter Plan of Treatment Not on file documented as of this encounter Visit Diagnoses Diagnosis Fluid overload- Primary Unspecified essential hypertension Allergic rhinitis, cause unspecified Acute sinusitis, unspecified documented in this encounter Care Teams Fuel Management Handler Relationship Specialty Start Date End Date Kristi Khalil DO [address] [place] [address] PCP - General Family Practice 08/17/19 documented as of this encounter
--- OUTSIDE RECORDS SUMMARY | 2025-05-16 10:45 | XMS_ITS | Encounter Summary ---
Author Organization [employer] [facility] Address [address] [place] [address] Care Team Providers Care Refrigeration Technician Name Role Phone Kristi Khalil DO Primary Care Provider +1- [phone] Encounter Details Date Type Department Care Team (Latest Contact Info) Description 10/12/2002 Outpatient Historical [facility] Mahesh Dee MD [address] [place] [address] BLOOD DISEASES NEC (Primary Dx); HYPERTENSION NOS; LUMBAGO; DYSMETABOLIC SYNDROME X Social History Tobacco Use Types Packs/Day Years Used Date Smoking Tobacco: Never Assessed Comments Unknown Sex and Gender Information Value Date Recorded Sex Assigned at Not on file Legal Sex Female 5:05 AM FLOOR SANDING MACHINE OPERATOR Gender Identity Not on file Sexual Orientation Not on file documented as of this encounter Plan of Treatment Not on file documented as of this encounter Visit Diagnoses Diagnosis Other blood disease- Primary Other specified diseases of blood and blood-forming organs Unspecified essential hypertension Lumbago Dysmetabolic syndrome X Dysmetabolic Syndrome X documented in this encounter Care Teams Refrigeration Technician Relationship Specialty Start Date End Date Kristi Khalil DO [address] [place] [address] PCP - General Family Practice 08/17/19 documented as of this encounter
--- OUTSIDE RECORDS SUMMARY | 2025-05-16 10:45 | XMS_ITS | Encounter Summary ---
Author Organization [employer] [facility] Address [address] [place] [address] Care Team Providers Care Roper Operator Name Role Phone Kristi Khalil DO Primary Care Provider +1- [phone] Encounter Details Date Type Department Care Team (Latest Contact Info) Description 09/28/2002 Outpatient Historical HIS [facility] Mahesh Dee MD [address] [place] [address] HYPERTENSION NOS (Primary Dx); CHEST PAIN NOS Social History Tobacco Use Types Packs/Day Years Used Date Smoking Tobacco: Never Assessed Comments Unknown Sex and Gender Information Value Date Recorded Sex Assigned at Not on file Legal Sex Female 5:05 AM SORT MANAGER Gender Identity Not on file Sexual Orientation Not on file documented as of this encounter Plan of Treatment Not on file documented as of this encounter Visit Diagnoses Diagnosis Unspecified essential hypertension- Primary Chest pain, unspecified documented in this encounter Care Teams Roper Operator Relationship Specialty Start Date End Date Kristi Khalil DO [address] [place] [address] PCP - General Family Practice 08/17/19 documented as of this encounter
--- OUTSIDE RECORDS SUMMARY | 2025-05-16 10:45 | XMS_ITS | Encounter Summary ---
Author Organization [employer] [facility] Address [address] [place] [address] Care Team Providers Care Master Printer Name Role Phone Kristi Khalil DO Primary Care Provider +1- [phone] Encounter Details Date Type Department Care Team (Latest Contact Info) Description 09/21/2002 Outpatient Historical [facility] Mahesh Dee MD [address] [place] [address] HYPERTENSION NOS (Primary Dx); ACUTE SINUSITIS NOS; OTHER MALAISE AND FATIGUE; JOINT PAIN-UNSPEC Social History Tobacco Use Types Packs/Day Years Used Date Smoking Tobacco: Never Assessed Comments Unknown Sex and Gender Information Value Date Recorded Sex Assigned at Not on file Legal Sex Female 5:05 AM LEGAL DEPARTMENT MANAGER Gender Identity Not on file Sexual Orientation Not on file documented as of this encounter Plan of Treatment Not on file documented as of this encounter Visit Diagnoses Diagnosis Unspecified essential hypertension- Primary Acute sinusitis, unspecified Other malaise and fatigue Pain in joint, site unspecified documented in this encounter Care Teams Master Printer Relationship Specialty Start Date End Date Kristi Khalil DO [address] [place] [address] PCP - General Family Practice 08/17/19 documented as of this encounter
--- OUTSIDE RECORDS SUMMARY | 2025-05-16 10:45 | XMS_ITS | Encounter Summary ---
Author Organization [facility] Address [address] [place] [address] Care Team Providers Care Automobile Body Repairer Name Role Phone Kristi Khalil DO Primary Care Provider +1- [phone] Encounter Details Date Type Department Care Team (Late st Contact Info) Description 12/21/2020 Lab Requisition [facility] Services [address] [place] [address] Marguerite Llanos, [facility] [address] [place] [address] Social History Tobacco Use Types Packs/Day Years Used Date Smoking Tobacco: Never Assessed Comments Unknown Sex and Gender Information Value Date Recorded Sex Assigned at Not on file Legal Sex Female 5:05 AM ADVERTISING ASSOCIATE Gender Identity Not on file Sexual Orientation Not on file documented as of this encounter Plan of Treatment Not on file documented as of this encounter Procedures Procedure Name Priority Date/Time Associated Diagnosis Comments MICROALBUMIN/CREATI NINE RATIO, RANDOM UR Routine 12/21/2020 6:00 AM CDT documented in this encounter Results * (ABNORMAL) MICROALBUMIN/CREATININE RATIO, RANDOM UR (12/21/2020 6:00 AM CDT) MICROALBUMIN, URINE <1.2 No Reference Range mg/dL 12/21/2020 7:47 PM CDT [facility] CREATININE, URINE 27.7(L) 29.0 - 226.0 mg/dL 12/21/2020 7:47 PM CDT [facility] Comment:Reference Range vari es with fluid intake and diet. Urine URINE SPECIMEN OBTAINED BY CLEAN CATCH PROCEDURE / Unknown Collection / Unknown 12/21/2020 6:00 AM CDT 12/21/2020 7:05 PM CDT Narrative [facility] - 12/21/2020 7:47 PM CDT Condition Microalbumin/Creat ratio Normal Males <17 Normal Females <25 Microalbuminuria Males 17-299 Microalbuminuria Females 25-299 Overt proteinuria >=300 Unable to calculate urine microalbumin/creatinine ratio because urine microalbumin result is outside of reportable range. us Marguerite Gage CALL CENTER SUPPORT REPRESENTATIVE URINE ORDERABLES Lynnette martinez Result [facility] [address] [place] [address] documented in this encounter Visit Diagnoses Not on filedocumented in this encounter Care Teams Automobile Body Repairer Relationship Specialty Start Date End Date Kristi Khalil DO [address] [place] [address] PCP - General Family Practice 08/17/19 documented as of this encounter
--- OUTSIDE RECORDS SUMMARY | 2025-05-16 10:45 | XMS_ITS | Encounter Summary ---
Author Organization [facility] Address [address] [place] [address] Care Team Providers Care Vfx Artist Name Role Phone Kristi Khalil DO Primary Care Provider +1- [phone] Encounter Details Date Type Department Care Team (Latest Contact Info) Description 01/24/2003 Outpatient Historical [facility] Mahesh Dee MD [address] [place] [address] ALLERGIC RHINITIS NOS (Primary Dx); OTHER MALAISE AND FATIGUE; DYSMETABOLIC SYNDROME X Social History Tobacco Use Types Packs/Day Years Used Date Smoking Tobacco: Never Assessed Comments Unknown Sex and Gender Information Value Date Recorded Sex Assigned at Not on file Legal Sex Female 5:05 AM 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
--- OUTSIDE RECORDS SUMMARY | 2025-05-16 10:45 | XMS_ITS | Encounter Summary ---
Author Organization [facility] Address [address] [place] [address] Care Team Providers Care Internet Researcher Name Role Phone Kristi Khalil DO Primary Care Provider +1- [phone] Encounter Details Date Type Department Care Team (Latest Contact Info) Description 05/18/2002 Outpatient Historical [facility]3] Family Medicine [place] 104 [facility] 60 [place] [address] Titi Salcedo MD [address] [address] JOINT PAIN-PELVIS (Primary Dx); ALLERGY, UNSPECIFIED; ARTHROPATHY NOS-UNSPEC Social History Tobacco Use Types Packs/Day Years Used Date Smoking Tobacco: Never Assessed Comments Unknown Sex and Gender Information Value Date Recorded Sex Assigned at Not on file Legal Sex Female 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
--- OUTSIDE RECORDS SUMMARY | 2025-05-16 10:45 | XMS_ITS | Encounter Summary ---
Author Organization [facility] Address [address] [place] [address] Care Team Providers Care Fingerprint Classifier Name Role Phone Kristi Khalil DO Primary Care Provider +1- [phone] Encounter Details Date Type Department Care Team (Latest Contact Info) Description 06/15/2002 Outpatient Historical [facility] Family Medicine [place] [address] [facility] [address] [place] [address] Titi Salcedo MD [address] [facility] 200 [place] [address] ACUTE BRONCHITIS (Primary Dx); ACUTE SINUSITIS NOS; ABNORMAL CLINICAL FINDING NEC Social History Tobacco Use Types Packs/Day Years Used Date Smoking Tobacco: Never Assessed Comments Unknown Sex and Gender Information Value Date Recorded Sex Assigned at Not on file Legal Sex Female 5:05 AM MANAGER LOCATION Gender Identity Not on file Sexual Orientation Not on file documented as of this encounter Plan of Treatment Not on file documented as of this encounter Visit Diagnoses Diagnosis Acute bronchitis- Primary Acute sinusitis, unspecified Other abnormal clinical finding documented in this encounter Care Teams Fingerprint Classifier Relationship Specialty Start Date End Date Kristi Khalil DO [address] [place] [address] PCP - General Family Practice 08/17/19 documented as of this encounter
--- OUTSIDE RECORDS SUMMARY | 2025-05-16 10:45 | XMS_ITS | Encounter Summary ---
Author Organization [facility] Address [address] [place] [address] Care Team Providers Care Adult Basic Education Instructor Name Role Phone Kristi Khalil DO Primary Care Provider +1- [phone] Encounter Details Date Type Department Care Team (Latest Contact Info) Description 07/03/[address] [facility] Family Medicine [place] 104 [facility] 60 [place] [address] Titi Salcedo MD [address] [facility] [address] [place] [phone] HYPERTENSION NOS (Primary Dx) Social History Tobacco Use Types Packs/Day Years Used Date Smoking Tobacco: Never Assessed Comments Unknown Sex and Gender Information Value Date Recorded Sex Assigned at Not on file Legal Sex Female 5:05 AM SCHEDULING SPECIALIST Gender Identity Not on file Sexual Orientation Not on file documented as of this encounter Plan of Treatment Not on file documented as of this encounter Visit Diagnoses Diagnosis Unspecified essential hypertension- Primary documented in this encounter Care Teams Adult Basic Education Instructor Relationship Specialty Start Date End Date Kristi Khalil DO [address] [place] [address] PCP - General Family Practice 08/17/19 documented as of this encounter
--- OUTSIDE RECORDS SUMMARY | 2025-05-16 10:45 | XMS_ITS | Encounter Summary ---
Author Organization [facility] Address [address] [place] [address] Care Team Providers Care Director Of Donor Relations Name Role Phone Kristi Khalil DO Primary Care Provider +1- [phone] Encounter Details Date Type Department Care Team (Late st Contact Info) Description 10/12/2002 Outpatient Historical [facility] Mahesh Dee MD [address] [place] [address] Social History Tobacco Use Types Packs/Day Years Used Date Smoking Tobacco: Never Assessed Comments Unknown Sex and Gender Information Value Date Recorded Sex Assigned at Not on file Legal Sex Female 5:05 AM OFFICE 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
--- OUTSIDE RECORDS SUMMARY | 2025-05-16 10:45 | XMS_ITS | Clinical Summary ---
Author Organization [facility] Address [address] [address] Care Team Providers Care Card Player Name Role Phone Mina Barrios MD Primary Care Provider [phone] Allergies Active Allergy Reactions Criticality Noted Date Comments Clarithromycin Nausea And Vomiting Low 08/16/2020 Clindamycin Anaphylaxis High 08/16/2020 Diclofenac Swelling Low 08/16/2020 Enalapril Other (see comments) 08/16/2020 Ketorolac Shortness of breath High 08/02/2024 Ketorolac Tromethamine 08/16/2020 Losartan Anaphylaxis High 08/16/2020 Nifedipine Hives High 08/16/2020 Pregabalin Other (see comments) 08/16/2020 Sulfa Antibiotics Anaphylaxis,Other (s ee comments) High 08/16/2020 Medications traMADol (ULTRAM) 50 MG tablet Take 50 mg by mouth every 6 hours as needed Active risperiDONE (RisperDAL) 1 MG tablet Take 1 mg by mouth 1 (one) time each day 025 Active ondansetron (ZOFRAN) 4 MG tablet Take 4 mg by mouth every 6 hours as needed Active acetaminophen (TYLENOL) 325 MG suppository Insert 325 mg into the rectum every 4 (four) hours if needed for mild pain Active allopurinol (ZYLOPRIM) 300 MG tablet Take 300 mg by mouth 1 (one) time each day Active atorvastatin (LIPITOR) 40 MG tablet Take 40 mg by mouth 1 (one) time each day Active calcium carbonate (TUMS) 500 MG chewable tablet Chew 1 tablet 1 (one) time each day Active cetirizine (ZyrTEC) 10 MG chewable tablet Chew 10 mg 1 (one) time each day Active clopidogrel (PLAVIX) 75 MG tablet Take 75 mg by mouth 1 (one) time each day Active diphenhydrAMINE (BENADRYL) 25 MG capsule Take 25 mg by mouth every 6 (six) hours if needed for itching Active fluticasone (FLONASE) 50 MCG/ACT nasal spray Administer 1 spray into each nostril 1 (one) time each day Active hydrALAZINE 25 MG tablet Take 25 mg by mouth in the morning and 25 mg in the evening and 25 mg before bedtime. Active lamoTRIgine (LaMICtal) 100 MG tablet Take 100 mg by mouth 1 (one) time each day Active insulin glargine (LANTUS) 100 UNIT/ML injection Inject under the skin every night Active lidocaine (LIDODERM) 5 % patch Apply 1 patch topically 1 (one) time each day Remove & discard patch within 12 hours or as directed by MD. Active Melatonin 5 MG chewable tablet Chew Acti ve magnesium hydroxide (MILK OF MAGNESIA CONCENTRATE) 2400 MG/10ML suspension suspension Take by mouth 1 (one) time each day if needed for constipation Active Insulin Aspart (NOVOLOG FLEXPEN SC) Inject under the skin Active calcitriol (Rocaltrol) 0.25 MCG capsuleIndications:Sec ondary hyperparathyroidism of renal origin (HCC) Take 1 capsule (0.25 mcg total) by mouth 1 (one) time each day 30 capsule 11 025 2025 Active bumetanide (BUMEX) 1 MG tablet Take 1 mg by mouth 1 (one) time each day 025 Active carvedilol (COREG) 6.25 MG tablet Take 6.25 mg by mouth in the morning and 6.25 mg in the evening. Take with meals. 025 Active ergocalciferol 1.25 MG (57642 UT) capsule Take 50,000 Units by mouth 1 (one) time per week 025 Active bumetanide (BUMEX) 1 MG tablet Take 1 tablet (1 mg total) by mouth 3 times weekly on Friday for 3 days 3 tablet 025 Active lisinopril 40 MG tablet Take 40 mg by mouth 1 (one) time each day Active metoprolol tartrate 25 MG tablet Take 25 mg by mouth in the morning and 25 mg in the evening. Active eszopiclone (LUNESTA) 3 MG tablet Take 3 mg by mouth every night Active Active Problems Problem Noted Date Diagnosed Date Chronic kidney disease stage 4 03/09/2025 Type 2 diabetes mellitus wit h diabetic chronic kidney disease 11/30/2024 Diastolic congestive heart failure 11/30/2024 Hypertensive heart and chron ic kidney disease with heart failure and stage 1 through stage 4 chronic kidney disease, or unspecified chronic kidney disease 11/30/2024 Cellulitis of lower limb 08/21/2024 Insulin treated type 2 diabetes mellitus 025 Acute nontraumatic kidney injury 08/02/2024 Benign hypertension 08/02/2024 Obstructive sleep apnea syndrome 08/02/2024 Aphasia 08/16/2020 Encounters Date Type Department Care Team Description 04/21/2025 Documentation Only [facility], [facility] [address] [place] [address] [place] [phone] Susan Salazar MA 03/28/2025 Documentation Only [facility], [facility] [address] [place] [place] [phone] Jasmin Drummond MA 03/28/2025 Telephone [facility], [facility] [address] [place] [address] [place] [address] Jasmin Drummond MA 03/23/2025 Orders Only [facility] [address] [place] [phone] Jennifer Linares NP Chronic diastolic congestive heart failure (HCC); Chronic kidney disease stage 4 (HCC) 03/16/2025 Orders Only [facility], [address] [phone] Jennifer Linares, RUDY Chronic diastolic congestive heart failure (HCC); Chronic kidney disease stage 4 (HCC); Cellulitis of unspecified part of limb 03/15/2025 Telephone [facility] [address] [place] [phone] Susan Salazar MA 03/09/2025 9:30 AM CDT Office Visit [facility], [address] [phone] Jennifer Linares NP Type 2 diabetes mellitus with diabetic chronic kidney disease (HCC) (Primary Dx); Obstructive sleep apnea syndrome; Insulin treated type 2 diabetes mellitus (HCC); Hypertensive heart and chronic kidney disease with heart failure and stage 1 through stage 4 chronic kidney disease, or unspecified chronic kidney disease (HCC); Chronic diastolic congestive heart failure (HCC); Benign hypertension; Other acute kidney failure (HCC); Chronic kidney disease stage 4 (HCC); Cellulitis of unspecified part of limb 03/09/2025 Documentation Only [facility], [address] [phone] Jolie Torres 02/24/2025 Documentation Only [facility], [facility] [address] [place] [place] [phone] Yvonne Reyes MA 02/24/2025 Documentation Only [facility], [facility] [address] [place] [place] [address] Yvonne Reyes MA from Last 3 Months Immunizations Immunization Administration Dates Next Due Influenza, High-dose Seasona l, Quadrivalent, Preservative Free 06/08/2021 Moderna SARS-COV-2 11/30/2021,09/23/2020, 021 Tuberculin Skin Test; Unspec ified Formulation 08/30/2020,08/19/2020 Family History Medical History Relation Comments Heart disease Mother Asthma Neg Hx Cancer Neg Hx Diabetes Neg Hx Hypertension Neg Hx Stroke Neg Hx Relation Status Comments Father Mother Social History Tobacco Use Types Packs/Day Years Used Date Smoking Tobacco: Former Cigarettes Smokeless Tobacco: Never Tobacco Cessation:Counseling Given: Not Answered Alcohol Use Standard Drinks/Week Comments Yes 0 (1 standard drink = 0.6 oz pur e alcohol) few times a month Comments Unknown Sex and Gender Information Value Date Recorded Sex Assigned at Not on file Legal Sex Female 11:15 AM EST Gender Identity Not on file Sexual Orientation Not on file Last Filed Vital Signs Vital Sign Reading Time Taken Comments Blood Pressure 148/64 03/09/2025 9:49 AM CDT Pulse 64 03/09/2025 9:49 AM CDT Temperature - - Respiratory Rate - - Oxygen Saturation 93% 01/17/2025 11:21 AM CDT Inhaled Oxygen Concentration - - Weight 99.9 kg (220 lb 3.2 oz) 03/09/2025 9:49 A M CDT Height 165.1 cm (5' 5 ) 03/09/2025 9:49 AM CDT Body Mass Index 36.64 03/09/2025 9:49 AM CDT Plan of Treatment Upcoming Encounters Date Type Department Care Team (Late st Contact Info) Description 07/06/2025 10:30 AM PRINT LINE OPERATOR Office Visit [facility], [facility] [address] [place] [address] Jennifer Linares NP [address] [facility] [address] [place] [address] Health Maintenance Due Date Last Done Comments Breast Cancer Screening 1960 Colorectal Cancer Screening: Annual FOBT 02/21/2009 Colorectal Cancer Screening: Colonoscopy 02/21/2009 Colorectal Cancer Screening: Sigmoidoscopy 02/21/2009 Pneumococcal Vaccine: 50+ Years (2 of 2 - PCV) 05/21/2019 05/21/2018 Diabetes: Ophthalmology Exam 10/12/2024 Diabetes: Pedal Pulse Checked 10/12/2024 Diabetes: Sensory Foot Exam 10/12/2024 Diabetes: Visual Foot Exam 10/12/2024 Diabetes: Hemoglobin A1C 04/06/2025 025, 08/02/2024 Influenza Vaccine (#1) 2025 1, 06/08/2020, 05/25/2019 Pneumococcal Vaccine: Peds ( 0 to 5 Years) and At-Risk Patients (6 to 49 Years) Discontinued 05/21/2018 Hepatitis B Vaccine Aged Out 12/28/2024 No longe r eligible based on patient's age to complete this topic Procedures Procedure Name Priority Date/Time Associated Diagnosis Comments SPECIAL CHEMISTRY Routine 01/04/2025 from Last 3 Months or Most Recently Relevant to Health Maintenance Results * (ABNORMAL) SPECIAL CHEMISTRY (01/04/2025) Hemoglobin A1C 6.7(H) 4.8 - 5.9 % [facility] 01/04/2025 01/05/2025 10: 31 AM CDT Narrative [facility] - 01/05/2025 Unless otherwise specified, test(s) performed at: [facility] [address] JAVA APPLICATION ENGINEER: Branden Starks M.D. For any questions, please call customer service at FREQUENCY:MONTHLY Resulting Agency Comment Specimen source: Blood Mary Gage MD LAB BLOOD BANK TEST ORDERABLE S Final Result [employer] See order comments or contact performing lab [facility], [place] from Last 3 Months or Most Recently Relevant to Health Maintenance [place] [address] Medicare Care Teams Card Player Relationship Specialty Start Date End Date Mina Barrios MD [address] [phone] PCP - General Family Medicine 01/17/25
--- OUTSIDE RECORDS SUMMARY | 2025-05-16 10:45 | XMS_ITS | Clinical Summary ---
Author Organization [facility] Address [address] [place] [address] Phone Care Team Providers Care Portfolio Analyst Name Role Phone McclearyKristi garcia Primary Care Provider +1- [phone] Social History Tobacco Use Types Packs/Day Years Used Date Smoking Tobacco: Never Assessed Comments Unknown Sex and Gender Information Value Date Recorded Sex Assigned at Not on file Legal Sex Female 5:05 AM ERADICATOR Gender Identity Not on file Sexual Orientation Not on file Plan of Treatment Health Maintenance Due Date Last Done Comments DTAP/TDAP/TD VACCINES (1 - Tdap) 02/21/1979 BREAST CANCER SCREENING 2000 COLORECTAL SCREENING 02/21/2005 Colorectal Cancer Screening 02/21/2005 FIT-DNA Q 3 years 02/21/2005 FIT/FOBT Q 1 year 02/21/2005 Flex Sig/CT Colonography Q 5 years 02/21/2005 PNEUMOCOCCAL VACCINE 50+ YEARS (1 of 1 - PCV) 02/22/20 10 ZOSTER VACCINE (1 of 2) 02/21/2010 OSTEOPOROSIS SCREENING 02/21/2025 INFLUENZA VACCINE (#1) 2025 RSV VACCINE (60+ or ) (1 - 1-dose 75+ series) 02/21/2035 Insurance [employer] [id number] HMO Care Teams Portfolio Analyst Relationship Specialty Start Date End Date Kristi Khalil DO [address] [place] [phone] PCP - General Family Practice 08/17/19
--- OUTSIDE RECORDS SUMMARY | 2025-05-16 10:45 | XMS_ITS | Encounter Summary ---
Author Organization [facility] Address [address] [place] [address] Care Team Providers Care Fish Hatchery Assistant Name Role Phone Kristi Khalil DO Primary Care Provider +1- [phone] Encounter Details Date Type Department Care Team (Latest Contact Info) Description 11/26/1999 Outpatient Historical [facility] Family Medicine [place] 104 [facility] [address] [place] [address] Titi Salcedo MD [address] [facility] [address] [place] [address] Allergy, unspecified not elsewhere classified (Primary Dx) Social History Tobacco Use Types Packs/Day Years Used Date Smoking Tobacco: Never Assessed Comments Unknown Sex and Gender Information Value Date Recorded Sex Assigned at Not on file Legal Sex Female 5:05 AM TUTORING MANAGER Gender Identity Not on file Sexual Orientation Not on file documented as of this encounter Plan of Treatment Not on file documented as of this encounter Visit Diagnoses Diagnosis Allergy, unspecified not elsewhere classified- Primary documented in this encounter Care Teams Fish Hatchery Assistant Relationship Specialty Start Date End Date Kristi Khalil DO [address] [place] [address] PCP - General Family Practice 08/17/19 documented as of this encounter
--- OUTSIDE RECORDS SUMMARY | 2025-05-16 10:45 | XMS_ITS | Encounter Summary ---
Author Organization [facility], [facility] Address [address] [place] [address] Phone Care Team Providers Care Human Development Professor Name Role Phone Mina Barrios MD Primary Care Provider [phone] Encounter Details Date Type Department Care Team (Late st Contact Info) Description 10/13/2024 Orders Only [facility], [facility] [address] [place] [address] Acute nontraumatic kidney injury, not otherwise specified (HCC) Social History Tobacco Use Types Packs/Day Years Used Date Smoking Tobacco: Never Assessed Comments Unknown Sex and Gender Information Value Date Recorded Sex Assigned at Not on file Legal Sex Female 11:15 AM EST Gender Identity Not on file Sexual Orientation Not on file documented as of this encounter Plan of Treatment Upcoming Encounters Date Type Department Care Team (Late st Contact Info) Description 07/06/2025 10:30 AM ELECTRONICS LEAD Office Visit [facility] [address] [place] [address] Jennifer Linares NP [address] [place] [address] documented as of this encounter Procedures Procedure Name Priority Date/Time Associated Diagnosis Comments HD KINETICS Routine 12/07/2024 POST CHEMISTRY Routine 12/07/2024 IMMUNO CHEMISTRY Routine 12/07/2024 TRACE ELEMENTS Routine 12/07/2024 HEMATOLOGY Routine 12/07/2024 CHEMISTRY Routine 12/07/2024 documented in this encounter Results * (ABNORMAL) TRACE ELEMENTS (12/07/2024) Aluminum 24(H) 0 - 10 mcg/L [facility] Comment: This test was developed and its performance characteristics determined by [facility]. It has not been cleared or approved by the FDA. The laboratory is regulated under CLIA as qualified to perform high complexity testing. This test is used for clinical purposes. It should not be regarded as investigational or for research. Verified by repeat analysis. 12/07/2024 12/09/2024 10: 01 AM CDT Narrative [facility] - 12/09/2024 Unless otherwise specified, test(s) performed at: [facility], [address] [place] [address] BEEF CATTLE SPECIALIST: Branden Starks M.D. For any questions, please call customer service at FREQUENCY:MONTHLY Resulting Agency Comment Specimen source: Serum Tarik Santos MD LAB BLOOD ORDERABLES Final Result Performing Organization Address [facility] Co de Phone Number [facility] See order comments or contact performing lab Unknown, [place] * HD KINETICS (12/07/2024) [facility] % Urea Reduction 77 65 - 80 % [facility] 12/07/2024 12/09/2024 10: 21 AM CDT Narrative Resulting Agency Comment Specimen source: Plasma Tarik Santos MD LAB BLOOD ORDERABLES Final Result Performing Organization Address [facility] Co de Phone Number [facility] See order comments or contact performing lab Unknown, [place] * POST CHEMISTRY (12/07/2024) BUN Post Dialysis 15 6 - 19 mg/dL [facility] 12/07/2024 12/09/2024 10: 21 AM CDT Narrative [facility] - 12/09/2024 Unless otherwise specified, test(s) performed at: [facility], [address] [place] [address] BEEF CATTLE SPECIALIST: Branden Starks M.D. For any questions, please call customer service at FREQUENCY:MONTHLY Resulting Agency Comment Specimen source: Plasma us Tarik Santos MD LAB BLOOD ORDERABLES Final Result [facility] See order comments or contact performing lab Unknown, [place] * IMMUNO CHEMISTRY (12/07/2024) Hep B Surface Ag Negative Negative [facility] Hepatitis B Surface Ab <10 mIU/mL [facility] Comment: Reference Range: <10 mIU/mL Non-Immune >=10 mIU/mL Immune The magnitude of the measured result above 10 mIU/mL is not indicative of the total amount of antibody present. Custom Exception Hep B Core Total Ab Negative Negative [facility] Comment: Hep B Core Ab, Total appears during the acute infection stage and remains reactive/positive throughout the recovery stage. The above test result was obtained using Siemens Centaur XP chemiluminescent method. Results obtained with different assay methods or kits cannot be used interchangeably. Hepatitis C Antibody Nonreactive Nonreactive [facility] Comment: No HCV antibody detected. The above test result was obtained using Siemens Centaur XP chemiluminescent method. Results obtained with different assay methods or kits cannot be used interchangeably. S/CO Ratio 0.06 0.00 - 0.79 [facility] Comment: s/co ratio Interpretation Supplemental testing <0.80 Nonreactive No further testing required. 0.80-0.99 Equivocal HCV RNA Quantitative Real-Time PCR is recommended. 1.00->11.00 Reactive HCV RNA Quantitative Real-Time PCR is recommended to distinguish active from resolved cases. 12/07/2024 12/09/2024 10: 05 AM CDT Narrative [facility] - 12/09/2024 Unless otherwise specified, test(s) performed at: [facility], [address] [place] [id number] BEEF CATTLE SPECIALIST: Branden Starks M.D. For any questions, please call customer service at FREQUENCY:MONTHLY Resulting Agency Comment Specimen source: Serum Tarik Santos MD LAB BLOOD ORDERABLES Edited Result - Final [facility] See order comments or contact performing lab Unknown, [place] * (ABNORMAL) [facility] Chemistry (12/07/2024) BUN 65(H) 6 - 19 mg/dL [facility] Creatinine 2.43(H) 0.60 - 1.30 mg/dL [facility] Comment: Custom Exception BUN/Creatinine Ratio 26.7(H) 10.0 - 20.0 [facility] Sodium 139 136 - 145 mEq/L [facility] Potassium 3.9 3.5 - 5.1 mEq/L [facility] Chloride 104 96 - 108 mEq/L [facility] Bicarbonate (CO2) 22 22 - 29 mEq/L [facility] Alkaline Phosphatase 74 35 - 104 U/L [facility] Albumin 3.1(L) 3.5 - 5.2 g/dL [facility] Glucose 272(H) 70 - 100 mg/dL [facility] Calcium 8.5 8.4 - 10.2 mg/dL [facility] Corrected Calcium 9.2 8.4 - 10.2 mg/dL [facility] Comment: Corrected Calcium is not equivalent to measured Ionized Calcium. Phosphorus 4.7(H) 2.6 - 4.5 mg/dL [facility] Calcium Phosphorus Product 40 0 - 54 [facility] Calcium Phosporus Product, Cor 43 0 - 54 [facility] Magnesium 1.8 1.6 - 2.6 mg/dL [facility] Iron 23(L) 30 - 160 mcg/dL [facility] 12/07/2024 12/09/2024 10: 05 AM CDT Narrative [facility] - 12/09/2024 Unless otherwise specified, test(s) performed at: [facility], [address] [place], [place] [id number] BEEF CATTLE SPECIALIST: Branden Starks M.D. For any questions, please call customer service at FREQUENCY:MONTHLY Resulting Agency Comment Specimen source: Serum Tarik Santos MD LAB BLOOD ORDERABLES Edited Result - Final [facility] See order comments or contact performing lab Unknown, [place] * (ABNORMAL) HEMATOLOGY (12/07/2024) Hemoglobin 8.5(L) 12.0 - 16.0 g/dL [facility] Hemoglobin x 3 25.5(L) 36.0 - 48.0 % [facility] 12/07/2024 12/09/2024 9:5 4 AM CDT Narrative [facility] - 12/09/2024 Unless otherwise specified, test(s) performed at: [facility], [address] [place] [address] BEEF CATTLE SPECIALIST: Branden Starks M.D. For any questions, please call customer service at FREQUENCY:MONTHLY Resulting Agency Comment Specimen source: Blood Tarik Santos MD LAB BLOOD ORDERABLES Final Result Performing Organization Address [facility] Co de Phone Number [facility] See order comments or contact performing lab Unknown, [place] documented in this encounter Visit Diagnoses Diagnosis Acute nontraumatic kidney injury, not otherwise specified (HCC) documented in this encounter Care Teams Human Development Professor Relationship Specialty Start Date End Date Mina Barrios MD [address] [id number] PCP - General Family Medicine 01/17/25 documented as of this encounter
--- OUTSIDE RECORDS SUMMARY | 2025-05-16 10:45 | XMS_ITS | Encounter Summary ---
Author Organization [facility] Address [address] [place] [address] Care Team Providers Care Baling Press Operator Name Role Phone Kristi Khalil DO Primary Care Provider [phone] Encounter Details Date Type Department Care Team (Late st Contact Info) Description 09/24/2002 Outpatient Historical [facility] Mahesh Dee MD [address] [place] [address] Social History Tobacco Use Types Packs/Day Years Used Date Smoking Tobacco: Never Assessed Comments Unknown Sex and Gender Information Value Date Recorded Sex Assigned at Not on file Legal Sex Female 5: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
--- OUTSIDE RECORDS SUMMARY | 2025-05-16 10:45 | XMS_ITS | Encounter Summary ---
Author Organization [facility] Address [address] [place] [address] Care Team Providers Care Principal Secretary Name Role Phone Kristi Khalil DO Primary Care Provider [phone]- [phone] Encounter Details Date Type Department Care Team (Latest Contact Info) Description 11/09/1999 Outpatient Historical [facility] Family Medicine [place] [address] [facility] [address] [place] [address] Titi Salcedo MD [address] [facility] [address] [place] [phone] Allergy, unspecified not elsewhere classified (Primary Dx) Social History Tobacco Use Types Packs/Day Years Used Date Smoking Tobacco: Never Assessed Comments Unknown Sex and Gender Information Value Date Recorded Sex Assigned at Not on file Legal Sex Female 5: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
--- OUTSIDE RECORDS SUMMARY | 2025-05-16 10:45 | XMS_ITS | Encounter Summary ---
Author Organization [facility] Address [address] [place] [address] Care Team Providers Care Weed Thinner Name Role Phone Kristi Khalil DO Primary Care Provider [phone]- [phone] Encounter Details Date Type Department Care Team (Latest Contact Info) Description 06/20/2000 Outpatient Historical [facility] Family Medicine [place] [address] [facility] [address] [place] [address] Titi Salcedo MD [address] [phone] Unspecified essential hypertension (Primary Dx); Acute sinusitis, unspecified Social History Tobacco Use Types Packs/Day Years Used Date Smoking Tobacco: Never Assessed Comments Unknown Sex and Gender Information Value Date Recorded Sex Assigned at Not on file Legal Sex Female 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
--- OUTSIDE RECORDS SUMMARY | 2025-05-16 10:45 | XMS_ITS | Encounter Summary ---
Author Organization [facility] Address [address] [place] [address] Care Team Providers Care Sap Bi Developer Name Role Phone Kristi Khalil DO Primary Care Provider [phone]- [phone] Encounter Details Date Type Department Care Team (Latest Contact Info) Description 06/05/2001 Outpatient Historical [facility] Family Medicine [place] [address] [facility] [address] [place] [address] Titi Salcedo MD [address] [phone] Acute maxillary sinusitis (Primary Dx); Allergic rhinitis, cause unspecified Social History Tobacco Use Types Packs/Day Years Used Date Smoking Tobacco: Never Assessed Comments Unknown Sex and Gender Information Value Date Recorded Sex Assigned at Not on file Legal Sex Female 5:05 AM REFRIGERATOR 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
--- OUTSIDE RECORDS SUMMARY | 2025-05-16 10:45 | XMS_ITS | Encounter Summary ---
Author Organization [facility] Address [address] [place] [address] Care Team Providers Care Preventive Maintenance Engineer Name Role Phone Kristi Khalil DO Primary Care Provider [phone]- [phone] Encounter Details Date Type Department Care Team (Latest Contact Info) Description 08/28/2001 Outpatient Historical [facility] Family Medicine [place] [address] [facility] [address] [place] [address] Titi Salcedo MD [address] [facility] [address] [place] [phone] Gynecologic examination (Primary Dx); SCREENING MAL NEOP-BREAST,UNSPEC; Dietary surveil/director counseling bureau Social History Tobacco Use Types Packs/Day Years Used Date Smoking Tobacco: Never Assessed Comments Unknown Sex and Gender Information Value Date Recorded Sex Assigned at Not on file Legal Sex Female 5:05 AM 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
--- NOTE | 2025-05-16 11:00 | XR_ITS ---
WS: [id number] XR chest 1V portable [id number] REASON FOR EXAM: dyspnea/cough FINDINGS: Chest stable compared to 01/10/2025. 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 Moderate tortuosity and ectasia of the thoracic aorta with mild cardiomegaly. Mild central venous pulmonary congestion. No acute pulmonary parenchymal or pleural abnormality. Degenerative spondylosis. Extensive postsurgical change in the right shoulder. XR/XR chest 1V portable [id number] IMPRESSION: Stable chest without acute abnormality.
[2025-05-16 11:17] LABS: Hematocrit 29.7 % (36-47); Hemoglobin 9.30 g/dL (11.27-16.99); Mean Corpuscular HGB Conc 31.3 g/dL (30-55); Mean Corpuscular Hemoglobin 27.6 pg (27-33); Mean Corpuscular Volume 88.1 fl (85-98); Nucleated Red Blood Cells % 0 %; Platelet Count 227 10^3/cmm (157-399); Red Blood Count 3.37 10^6/uL (3.85-5.65); White Blood Count 8.84 10^3/uL (3.29-11.43)
[2025-05-16 11:33] LABS: Lactic Sepsis W/Reflex 1.3 mmol/L (0.5-2.2)
[2025-05-16 11:34] LABS: Alanine Aminotransferase 11 U/L (0-33); Albumin Level 3.3 g/dL (3.5-5.2); Alkaline Phosphatase 194 U/L (35-105); Anion Gap 16.2 (5-19); Aspartate Amino Transferase 14 U/L (0-32); Blood Urea Nitrogen 48 mg/dL (8-23); Calcium 8.7 mg/dL (8.5-10.5); Carbon Dioxide 23 mmol/L (22-29); Chloride 107 mmol/L (98-107); Globulin 2.5 g/dL (1.3-4.6); Glucose 264 mg/dL (65-115); Osmolality Calculated 316 mOsm/kg (285-295); Potassium 4.2 mmol/L (3.5-5.1); Sodium 142 mmol/L (136-145); Total Protein 5.8 g/dL (6.6-8.7)
[2025-05-16] MEDS: piperacillin-tazobactam 3.375 GM in sodium chloride 0.9% (plus) 50 ML IV (11:35)
--- NOTE | 2025-05-16 11:36 | ED_ITS ---
HPI - General Adult 2 General: Chief complaint: General Medical Stated complaint: abnormal labs Time Seen by Provider: 05/16/25 10:35 History of Present Illness: 65-year-old female with moderate dementi a from the custodial. She had recently been on dialysis she had an indwelling tunneled dialysis catheter that was removed on 05/11/2025 to physical catheter was cultured and grew back Pseudomonas. When the surgeon was contacted regarding this he had the patient directed to the emergency room patient is demented and unable to give any helpful information we contacted the custodial and they did not had any fever sweats or chills. They is no plan to replace catheter she is no longer receiving dialysis and has not for several months which is why they removed. Related Data Home Medications ?Medication ?Instructions ?Recorded ?Confirmed clopidogrel 75 mg tablet 75 mg PO DAILY 07/08/2003/18 acetaminophen 325 mg tablet 650 mg PO Q6H PRN PAIN OR ELEVATED 10/03/21 04/05/25 (Tylenol) TEMP atorvastatin 40 mg tablet 40 mg PO BEDTIME 10/03/21 cetirizine 10 mg tablet 10 mg PO DAILY 10/03/2103/18 magnesium hydroxide 400 mg/5 mL 30 ml PO DAILY PRN Con stipation 10/03/21 05/10/25 oral suspension (Milk of Magnesia) fluticasone propionate 50 1 spray intranasal Q12H PRN 03/03/24 05/10/25 mcg/actuation nasal ALLERGIES spray,suspension ondansetron HCl 4 mg tablet 4 mg PO Q6H PRN Nausea And Vomiting 03/03/24 05/10/25 bupropion HCl 150 mg 24 hr tablet, 150 mg PO QAM 07/1604/05/25 extended release lamotrigine 100 mg tablet 100 mg PO TID 07/16/2405/10 risperidone 1 mg tablet 1 mg PO QAM 07/16/24 5 melatonin 5 mg tablet 5 mg PO BEDTIME 08/30/24 bisacodyl 10 mg rectal suppository 10 mg WI DAILY PRN Constipation 12/12/24 04/05/25 polyethylene glycol 3350 17 17 g PO DAILY PRN bowel ma nagment 12/12/24 05/10/25 gram/dose oral powder (Miralax) Previous Rx's ?Medication ?Instructions ?Recorded allopurinol 300 mg tablet 300 mg PO DAILY #90 tabs 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 sensor (Dexcom G7 #1 ea 03/12/23 Sensor device) 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,photogrammetric compilation specialist,cont #1 ea 03/12/23 (Dexcom G7 Lab Tester) insulin aspart U-100 100 unit/mL See Rx Instructions . Route 09/07/24 (3 mL) subcutaneous pen (Novolog .COMPLEX #15 mL FlexPen U-100 Insulin aspart) insulin glargine 100 unit/mL (3 10 unit (0.1 mL) SUBCU T DAILY #15 09/07/24 mL) subcutaneous pen (Lantus mL Solostar U-100 Insulin) bumetanide 1 mg tablet 1 mg PO DAILY #60 tabs 12/16 carvedilol 6.25 mg tablet (Coreg) 6.25 mg PO BID #60 t abs 12/16/24 hydralazine 25 mg tablet 75 mg (3 x 25 mg) PO TID 30 days 12/16/24 #270 tabs ciprofloxacin HCl 500 mg tablet 500 mg PO BID 2 weeks #28 tabs 05/16/25 Allergies Allergy/AdvReac Type Severity Reaction Status Date / Time clarithromycin (From Biaxin) Allergy nausea Verified 04/05/25 10:34 clindamycin Allergy shock Verified 04/05/25 10:34 diclofenac Allergy swelling Verified 04/05/25 10:34 enalapril Allergy unknown Verified 04/05/25 10:34 ketorolac (From Toradol) Allergy short of Verified 04/05/25 10:34 breath losartan (From Cozaar) Allergy shock Verified 04/05/25 10:34 nifedipine (From Procardia) Allergy hives Verified 04/05/25 10:34 pregabalin (From Lyrica) Allergy unknown Verified 04/05/25 10:34 Sulfa (Sulfonamide Allergy anaphylasix Verified 04/05/25 10:34 Antibiotics) PFSH ED 2 PFSH: Medical History CKD (chronic kidney disease) COPD (chronic obstructive pulmonary disease) LEROY on CPAP Diastolic heart failure Essential hypertension Insulin dependent type 2 diabetes mellitus Bilateral leg edema Chronic anemia Pacemaker Acute pancreatitis Sinus pause DELORIS (acute kidney injury) Altered mental status Paranoid Expressive aphasia Anxiety and depression Lives in assisted living facility Rotator cuff tear, right Diabetes mellitus insulin dependent Essential (primary) hypertension Depression due to cerebrovascular accident (CVA) Expressive aphasia Hypomagnesemia Bilateral pneumonia Hyponatremia Hyperkalemia Right humeral fracture Metabolic encephalopathy Resolved Acute delirium Resolved Pneumonia due to COVID-19 virus Resolved Poor social situation Multinodular thyroid Acute embolic stroke Recurrent falls Resolved History of CVA (cerebrovascular accident) Acute hypersomnolence disorder Essential hypertension Wernicke dysphasia Diabetes mellitus with neuropathy Mixed hyperlipidemia Surgical History History of nasal sinusotomy History of cholecystectomy History of tonsillectomy History of repair of rotator cuff History of hysterectomy for indication other than malignancy History of bursectomy Hx of adenoidectomy Status post anal fissurectomy History of colonoscopy Family History Mother CAD (coronary artery disease) Other Asthma Cancer Diabetes Heart disease Hypertension Stroke Social History Smoking and tobacco/nicotine status: never used tobacco/nicotine Alcohol intake: current Alcohol intake frequency: few times a month Substance/Drug Use: never Physical Exam 2 Const: COMMON NORMALS: no acute distress GENERAL APPEARANCE: cooperative and comfortable ORIENTATION/CONSCIOUSNESS: Yes awake HENMT: COMMON NORMALS: normocephalic, atraumatic and hearing grossly normal bilaterally HEAD & SCALP: normocephalic and atraumatic Chest: OTHER: Chest wall appears clear there is no sign of drainage no inflammation no redness or erythema at the previous site of the catheter. Resp: COMMON NORMALS: normal respiratory effort, No retractions, No use of accessory muscles and clear to auscultation bilaterally AUSCULTATION: clear to auscultation bilaterally Cardio: COMMON NORMALS: regular rate, regular rhythm and No murmurs present (Cardio) RATE: regular rate RHYTHM: regular rhythm GI: COMMON NORMALS: Soft to palpation and No hepatosplenomegaly present A USCULTATION: Yes normoactive bowel sounds PALPATION: Yes Soft to palpation, No Tenderness to palpation present (GI), No Guarding due to palpation present (GI) and Yes No hepatosplenomegaly present Extremity: COMMON NORMALS: normal to inspection, capillary refill normal, no clubbing, cyanosis or edema, no calf tenderness and no pedal edema Skin: COMMON NORMALS: no rashes or lesions noted GENERAL SKIN EXAM: no rashes or lesions noted Course 2 Vital Signs: Vital signs: Vital Signs Temperature 98.4 F 05/16/25 10:35 Pulse Rate 62 05/16/25 12:42 Respiratory Rate 16 05/16/25 10:35 Blood Pressure 156/73 05/16/25 10:35 Pulse Oximetry 96 05/16/25 12:42 Oxygen Delivery Me thod Room Air 05/16/25 10:35 MDM - General Adult Medical Decision Making No leukocytosis no fever consult ID. Dr. Haque came seen inpatient she recommends an outpatient regimen based on the culture results previously cultures were redrawn today blood cultures she did not have blood cultures at the time that the catheter was removed she will follow-up to see the infectious [facility] clinic. Patient is discharged back to the custodial. Medical Records I reviewed the patient's medical records. Lab Data I reviewed the patient's lab results. 05/16/25 11:03 05/16/25 11:03 Radiology Impressions Chest X-Ray 05/16/25 11:00 IMPRESSION: Stable chest without acute abnormality. Laboratory Results WBC 8.84 10^3/uL (3.29-11.43) 05/16/25 11:03 RBC 3.37 10^6/uL (3.85-5.65) L 05/16/25 11:03 Hgb 9.30 g/dL (11.27-16.99) L 05/16/25 11:03 Hct 29.7 % (36-47) L 05/16/25 11:03 MCV 88.1 fl (85-98) 05/16/25 11:03 MCH 27.6 pg (27-33) 05/16/25 11:03 MCHC 31.3 g/dL (30-55) 05/16/25 11:03 RDW 14.8 % (12.1-15.1) 05/16/25 11:03 Plt Count 227 10^3/cmm (157-399) 05/16/25 11:03 MPV 9.8 fL (7.4-10.4) 05/16/25 11:03 Neut % (Auto) 79.6 % 05/16/25 11:03 Lymph % (Auto) 10.3 % 05/16/25 11:03 [place] % (Auto) 4.9 % 05/16/25 11:03 Eos % (Auto) 4.2 % 05/16/25 11:03 Baso % (Auto) 0.7 % 05/16/25 11:03 Neut # (Auto) 7.04 10^3/uL (1.8-7.7) 05/16/25 11:03 Lymph # (Auto) 0.9 10^3/uL (0.8-4.8) 05/16/25 11:03 [place] # (Auto) 0.4 10^3/uL (0.2-0.9) 05/16/25 11:03 Eos # (Auto) 0.4 10^3/uL (0.0-0.8) 05/16/25 11:03 Baso # (Auto) 0.1 10^3/uL (0.0-0.1) 05/16/25 11:03 Nucleated RBC % (auto) 0 % 05/16/25 11:03 Nucleated RBCs # 0.0 /100WBC 05/16/25 11:03 Sodium 142 mmol/L (136-145) 05/16/25 11:03 Potassium 4.2 mmol/L (3.5-5.1) 05/16/25 11:03 Chloride 107 mmol/L (98-107) 05/16/25 11:03 Carbon Dioxide 23 mmol/L (22-29) 05/16/25 11:03 Anion Gap 16.2 (5-19) 05/16/25 11:03 BUN 48 mg/dL (8-23) H 05/16/25 11:03 Creatinine 2.7 mg/dL (0.5-0.9) H 05/16/25 11:03 GFR Calculation 17.7 mL/min (90-130) L 05/16/25 11:03 Glucose 264 mg/dL (65-115) H 05/16/25 11:03 Calculated Osmolality 316 mOsm/kg (285-295) H 05/16/25 11:03 Lactic Acid 1.3 mmol/L (0.5-2.2) 05/16/25 11:03 Calcium 8.7 mg/dL (8.5-10.5) 05/16/25 11:03 Total Bilirubin 0.2 mg/dL (0.15-1.2) 05/16/25 11:03 AST 14 U/L (0-32) 05/16/25 11:03 ALT 11 U/L (0-33) 05/16/25 11:03 Alkaline Phosphatase 194 U/L (35-105) H 05/16/25 11:03 Total Protein 5.8 g/dL (6.6-8.7) L 05/16/25 11:03 Albumin 3.3 g/dL (3.5-5.2) L 05/16/25 11:03 Globulin 2.5 g/dL (1.3-4.6) 05/16/25 11:03 All radiology interpretation(s) finalized by discharge Discharge Plan Discharge Patient Disposition: Home Clinical Impression: Pseudomonas aeruginosa colonization Condition: Stable Prescriptions: New ciprofloxacin HCl 500 mg tablet 500 mg PO BID 14 Days Qty: 28 0RF No Action (DME) Dexcom G7 Sensor Device See Rx Instructions .Route Qty: 1 0RF Rx Instructions: As directed (DME) Dexcom G7 Lab Tester Misc See Rx Instructions .Route Qty: 1 6RF Rx Instructions: As directed allopurinol 300 mg tablet 300 mg PO DAILY Qty: 90 0RF atorvastatin 40 mg tablet 40 mg PO BEDTIME cetirizine 10 mg Tablet 10 mg PO DAILY magnesium hydroxide [Milk of Magnesia] 400 mg/5 mL Suspension 30 ml PO DAILY PRN (Reason: Constipation) acetaminophen [Tylenol] 325 mg Tablet 650 mg PO Q6H PRN (Reason: PAIN OR ELEVATED TEMP) clopidogrel 75 mg tablet 75 mg PO DAILY bisacodyl 10 mg Suppository 10 mg WI DAILY PRN (Reason: Constipation) polyethylene glycol 3350 [Miralax] 17 gram/dose Powder 17 g PO DAILY PRN (Reason: bowel managment) carvedilol [Coreg] 6.25 mg tablet 6.25 mg PO BID Qty: 60 0RF Rx Instructions: must administer with a meal/food bumetanide 1 mg tablet 1 mg PO DAILY Qty: 60 0RF hydralazine 25 mg Tablet 75 mg PO TID 30 Days Qty: 270 0RF ondansetron HCl 4 mg tablet 4 mg PO Q6H PRN (Reason: Nausea And Vomiting) fluticasone propionate 50 mcg/actuation spray,suspension 1 spray INTRANASAL Q12H PRN (Reason: ALLERGIES) risperidone 1 mg Tablet 1 mg PO QAM lamotrigine 100 mg Tablet 100 mg PO TID bupropion HCl 150 mg Tablet Extended Release 24 Hr 150 mg PO QAM melatonin 5 mg Tablet 5 mg PO BEDTIME insulin aspart U-100 [Novolog FlexPen U-100 Insulin] 100 unit/mL (3 mL) insulin pen See Rx Instructions .ROUTE .COMPLEX Qty: 15 0RF Rx Instructions: Inject, subcut, 3 times daily, after meals, based on sliding scale provided 70-149=0 units 150-199=2units 200-249=4units 250-299=6units 300-349=8units 350-400=10units greater than 400 Call MD insulin glargine [Lantus Solostar U-100 Insulin] 100 unit/mL (3 mL) insulin pen 10 unit SUBCUT DAILY Qty: 15 0RF Discharge Orders: Discharge ED (Routine); Ordered 05/16/25 Ordered By: Cirilo Rivera Referrals: [facility] [Provider Group, Infectious Disease] - 05/24/25 12:00 pm Referral Note: telemedicine appt. Benigno Jennings DO [Primary Care Provider, [facility]] Discharge Diet: Usual diet Discharge Activity: Resume usual activity Patient Instructions: Opioid Safety, Pain Management, Patient Portal & [place] Instructions Activity Restrictions/Additional Instructions: Thank you for choosing [facility] for your healthcare needs today. It is very important that you follow up as instructed or that you return to the Emergency Department should you have concerns or if your condition changes or worsens in any way. Emergency department visits are focused on emergent conditions, in some cases you may require further evaluation on an outpatient basis. You were seen in the emergency room concerning the recent positive culture of the dialysis catheter that was removed. Your white count was normal we consulted infectious disease they do not feel that you need inpatient care. They are recommending outpatient oral antibiotics with ciprofloxacin and follow- up in their office. (Please note that included in your discharge packet is information concerning opioid safety and pain management. This information is given to all patients were discharged from the ER regardless of their discharge diagnosis or the medicines they usually take or are prescribed.) Print Language: Rwandan Coding Level of Care Code ED Floor Coverer Apprentice for Avery Rocha
--- NOTE | 2025-05-16 11:49 | PM.CONSULT ---
Providers/Reason For Consult Consulting Physician/Specialty*: Rain Haque MD / Infectious disease Reason for Consult*: Catheter tip culture positive for Pseudomonas aeruginosa Requesting Physician: Dr. Cirilo Rivera Primary Care Provider: Benigno Jennings DO History of Present Illness History of Present Illness Hilda Wallace is a 65 year old female with PMH of Warnicke's encephalopathy, CVA, type 2 diabetes mellitus, dysphagia, hypothyroidism, obstructive sleep apnea, hypertension, pacemaker implantation for severe bradycardia, depression, anxiety, paranoia , has a legal guardian who is sent from [facility]. Patient received a tunneled dialysis catheter in December 2024 when she was admitted here for hypertensive urgency, pulmonary edema and fluid overload. She needed emergent dialysis at that time and it was anticipated she may need long-term dialysis. Patient was able to be taken off of dialysis by March 2025. She was planned for tunneled HD catheter removal as she did not need this access anymore. Dialysis catheter was removed in the operating room by Dr. Wolf on May 11, 2025. Catheter tip culture was sent which resulted positive for Pseudomonas aeruginosa. Patient has been sent to the emergency room today from [place] as a result of this finding. There were no concerns for tunneled catheter infection prior. There were no signs of cellulitis or abscess. Discussed case with Dr. Wolf, there were no concerning findings of abscess or pus or access site infection prior to the procedure. Patient has been afebrile. She has no leukocytosis. Patient has some baseline memory impairment and unable to provide much history however says she did scratch around the site on occasion. She is otherwise clinically well-appearing today. There are no signs of sepsis. Lactic acid level normal at 1.3. LFTs within range. She is afebrile and hemodynamically stable. There is no leukocytosis. Kidney function is baseline with creatinine of 2.7. Review of Systems General: Reports: ROS unobtainable due to medical condition (Mental status at baseline. Awake alert oriented x 2 at this time.) Medications/Allergies Home Medications ?Medication ?Instructions ?Recorded ?Confirmed ?Last Taken ?Type allopurinol 300 mg tablet 300 mg PO DAILY #90 tabs 05/03/20 04/05/25 05/11/25 Rx clopidogrel 75 mg tablet 75 mg PO DAILY 07/08/20 04/05/25 05/05/25 History acetaminophen 325 mg tablet 650 mg PO Q6H PRN PAIN OR ELEVATED 10/03/21 04/05/25 12/12/24 07:40 History (Tylenol) TEMP atorvastatin 40 mg tablet 40 mg PO BEDTIME 10/03/21 04/05/25 05/09/25 History cetirizine 10 mg tablet 10 mg PO DAILY 10/03/21 04/05/25 05/11/25 History magnesium hydroxide 400 mg/5 mL 30 ml PO DAILY PRN Constipation 10/03/21 05/10/25 12/10/24 12:10 History oral suspension (Milk of Magnesia) 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 sensor (Dexcom G7 #1 ea 03/12/23 03/24/25 Unknown Rx Sensor device) 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,braddisher,cont #1 ea 03/12/23 03/24/25 Unknown Rx (Dexcom G7 Web Press Operator Apprentice) fluticasone propionate 50 1 spray intranasal Q12H PRN 03/03/24 05/10/25 11/20/24 History mcg/actuation nasal ALLERGIES spray,suspension ondansetron HCl 4 mg tablet 4 mg PO Q6H PRN Nausea And Vomiting 03/03/24 05/10/25 12/11/24 19:20 History bupropion HCl 150 mg 24 hr tablet, 150 mg PO QAM 07/16/24 04/05/25 05/11/25 History extended release lamotrigine 100 mg tablet 100 mg PO TID 07/16/24 05/10/25 05/11/25 History risperidone 1 mg tablet 1 mg PO QAM 07/16/24 05/10/25 05/11/25 History melatonin 5 mg tablet 5 mg PO BEDTIME 08/30/24 05/10/25 05/09/25 History insulin aspart U-100 100 unit/mL See Rx Instructions .Route 09/07/24 05/10/25 12/12/24 07:10 Rx (3 mL) subcutaneous pen (Novolog .COMPLEX #15 mL FlexPen U-100 Insulin aspart) insulin glargine 100 unit/mL (3 10 unit (0.1 mL) SUBCUT DAILY #15 09/07/24 05/10/25 05/09/25 Rx mL) subcutaneous pen (Lantus mL Solostar U-100 Insulin) bisacodyl 10 mg rectal suppository 10 mg [place] DAILY PRN Constipation 12/12/24 04/05/25 Unknown History polyethylene glycol 3350 17 17 g PO DAILY PRN bowel managment 12/12/24 05/10/25 12/07/24 19:35 History gram/dose oral powder (Miralax) bumetanide 1 mg tablet 1 mg PO DAILY #60 tabs 12/16/24 04/05/25 05/11/25 Rx carvedilol 6.25 mg tablet (Coreg) 6.25 mg PO BID #60 tabs 12/16/24 04/05/25 05/11/25 Rx hydralazine 25 mg tablet 75 mg (3 x 25 mg) PO TID 30 days 12/16/24 05/10/25 05/11/25 Rx #270 tabs Allergies Allergy/AdvReac Type Severity Reaction Status Date / Time clarithromycin (From Biaxin) Allergy nausea Verified 04/05/25 10:34 clindamycin Allergy shock Verified 04/05/25 10:34 diclofenac Allergy swelling Verified 04/05/25 10:34 enalapril Allergy unknown Verified 04/05/25 10:34 ketorolac (From Toradol) Allergy short of Verified 04/05/25 10:34 breath losartan (From Cozaar) Allergy shock Verified 04/05/25 10:34 nifedipine (From Procardia) Allergy hives Verified 04/05/25 10:34 pregabalin (From Lyrica) Allergy unknown Verified 04/05/25 10:34 Sulfa (Sulfonamide Allergy anaphylasix Verified 04/05/25 10:34 Antibiotics) PFSH Acute PFSH: Medical History CKD (chronic kidney disease) COPD (chronic obstructive pulmonary disease) LEROY on CPAP Diastolic heart failure Essential hypertension Insulin dependent type 2 diabetes mellitus Bilateral leg edema Chronic anemia Pacemaker Acute pancreatitis Sinus pause DELORIS (acute kidney injury) Altered mental status Paranoid Expressive aphasia Anxiety and depression Lives in assisted living facility Rotator cuff tear, right Diabetes mellitus insulin dependent Essential (primary) hypertension Depression due to cerebrovascular accident (CVA) Expressive aphasia Hypomagnesemia Bilateral pneumonia Hyponatremia Hyperkalemia Right humeral fracture Metabolic encephalopathy Resolved Acute delirium Resolved Pneumonia due to COVID-19 virus Resolved Poor social situation Multinodular thyroid Acute embolic stroke Recurrent falls Resolved History of CVA (cerebrovascular accident) Acute hypersomnolence disorder Essential hypertension Wernicke dysphasia Diabetes mellitus with neuropathy Mixed hyperlipidemia Surgical History History of nasal sinusotomy History of cholecystectomy History of tonsillectomy History of repair of rotator cuff History of hysterectomy for indication other than malignancy History of bursectomy Hx of adenoidectomy Status post anal fissurectomy History of colonoscopy Family History Mother CAD (coronary artery disease) Other Asthma Cancer Diabetes Heart disease Hypertension Stroke Social History Smoking and tobacco/nicotine status: never used tobacco/nicotine Alcohol intake: current Alcohol intake frequency: few times a month Substance/Drug Use: never Vitals/I&O/Wt Last Vital Signs Temp 98.4 F 05/16/25 10:35 Pulse 71 05/16/25 10:35 Resp 16 05/16/25 10:35 BP 156/73 05/16/25 10:35 Pulse Ox 96 05/16/25 10:35 O2 Del Method Room Air 05/16/25 10:35 Physical Exam Narrative: General: No acute distress, AO x2, at baseline HEENT: PERRLA, pupils bilaterally equal and reactive, pallors not present Chest: Normal vesicular breath sounds, no added sounds, equal good air entry bilaterally CVS: S1-S2 regular, no murmurs, no tachycardia, no gallops, no rubs Abdomen: Soft, nontender, no organomegaly, bowel sounds present Neuro: No focal deficits, no facial deformity, AO x3, power 5/5 in all limbs Extremities: Dressing taken down over site of recent HD catheter removal. No pus or changes of cellulitis encounter. Site appears to be healing well. No tenderness on palpation. Data 05/16/25 11:03 05/16/25 11:03 Micro: Microbiology 05/16/25 11:21 Blood Culture - Preliminary Blood SPECIMEN COLLECTED 05/16/25 11:03 Blood Culture - Preliminary Blood SPECIMEN COLLECTED NAME: Hilda Wallace LOC: [facility] #: [id number] AGE/SX: 65/F ROOM: RE05/16/[address]: Cirilo Rivera DO : 1960 BED: DIS: FAX #: STATUS: REG ER TLOC: Spec #: [id number] Kirt: 05/16/25 Status: RES Req #: [id number] Recd: 05/16/[address]: Cirilo Rivera DO Src: Blood SpDesc: Ordered: Bcult Procedure Result Verified Site Blood Culture Preliminary 05/16/25-113 SPECIMEN COLLECTED NAME: Hilda Wallace LOC: ER U #: [id number] AGE/SX: 65/F ROOM: RE05/16/[address]: Cirilo Rivera DO : 1960 BED: DIS: FAX #: STATUS: REG ER TLOC: Spec #: [id number] Kirt: 05/16/25 Status: RES Req #: [id number] Recd: 05/16/[address]: Cirilo Rivera DO Src: Blood SpDesc: Ordered: Bcult Procedure Result Verified Site Blood Culture Preliminary 05/16/25-1112 SPECIMEN COLLECTED NAME: Hilda Wallace LOC: OR U #: [id number] AGE/SX: 65/F ROOM: RE05/11/[address]: Davide Wolf MD : 1960 BED: DIS: FAX #: STATUS: DEP ILC TLOC: Spec #: [id number] Kirt: 05/11/251208 Status: COMP Req #: [id number] Recd: 05/11/25-[address]: Davide Wolf MD Src: Other Sour SpDesc: Ordered: CTIP Comments: Comment tunnelled hemodialysis catheter Procedure Result Verified Site Catheter Tip Culture Final 05/14/25-1545 Organism 1 Pseudomonas aeruginosa Growth >15 COLONIES DAY 3 P aerugino M.I.C. RX --------- ------ * Aztreonam <=4 S * Cefepime <=8 S * Ciprofloxacin <=1 S * Imipenem <=1 S * Levofloxacin <=2 S * Piperacillin/Tazobactam <=16 S Catheter Tip Culture Preliminary (changed) 05/13/25-1128 Organism 1 Gram Negative Rods Growth >15 COLONIES DAY 2, RESULTS TO FOLLOW Catheter Tip Culture Preliminary (changed) 05/12/25-1100 Organism 1 Gram Negative Rods Growth >15 DAY 1, RESULTS TO FOLLOW Other data: Radiology Impressions Chest X-Ray 05/16/25 11:00 IMPRESSION: Stable chest without acute abnormality. Laboratory Results WBC 8.84 10^3/uL (3.29-11.43) 05/16/25 11:03 RBC 3.37 10^6/uL (3.85-5.65) L 05/16/25 11:03 Hgb 9.30 g/dL (11.27-16.99) L 05/16/25 11:03 Hct 29.7 % (36-47) L 05/16/25 11:03 MCV 88.1 fl (85-98) 05/16/25 11:03 MCH 27.6 pg (27-33) 05/16/25 11:03 MCHC 31.3 g/dL (30-55) 05/16/25 11:03 RDW 14.8 % (12.1-15.1) 05/16/25 11:03 Plt Count 227 10^3/cmm (157-399) 05/16/25 11:03 MPV 9.8 fL (7.4-10.4) 05/16/25 11:03 Neut % (Auto) 79.6 % 05/16/25 11:03 Lymph % (Auto) 10.3 % 05/16/25 11:03 [place] % (Auto) 4.9 % 05/16/25 11:03 Eos % (Auto) 4.2 % 05/16/25 11:03 Baso % (Auto) 0.7 % 05/16/25 11:03 Neut # (Auto) 7.04 10^3/uL (1.8-7.7) 05/16/25 11:03 Lymph # (Auto) 0.9 10^3/uL (0.8-4.8) 05/16/25 11:03 [place] # (Auto) 0.4 10^3/uL (0.2-0.9) 05/16/25 11:03 Eos # (Auto) 0.4 10^3/uL (0.0-0.8) 05/16/25 11:03 Baso # (Auto) 0.1 10^3/uL (0.0-0.1) 05/16/25 11:03 Nucleated RBC % (auto) 0 % 05/16/25 11:03 Nucleated RBCs # 0.0 /100WBC 05/16/25 11:03 Sodium 142 mmol/L (136-145) 05/16/25 11:03 Potassium 4.2 mmol/L (3.5-5.1) 05/16/25 11:03 Chloride 107 mmol/L (98-107) 05/16/25 11:03 Carbon Dioxide 23 mmol/L (22-29) 05/16/25 11:03 Anion Gap 16.2 (5-19) 05/16/25 11:03 BUN 48 mg/dL (8-23) H 05/16/25 11:03 Creatinine 2.7 mg/dL (0.5-0.9) H 05/16/25 11:03 GFR Calculation 17.7 mL/min (90-130) L 05/16/25 11:03 Glucose 264 mg/dL (65-115) H 05/16/25 11:03 Calculated Osmolality 316 mOsm/kg (285-295) H 05/16/25 11:03 Lactic Acid 1.3 mmol/L (0.5-2.2) 05/16/25 11:03 Calcium 8.7 mg/dL (8.5-10.5) 05/16/25 11:03 Total Bilirubin 0.2 mg/dL (0.15-1.2) 05/16/25 11:03 AST 14 U/L (0-32) 05/16/25 11:03 ALT 11 U/L (0-33) 05/16/25 11:03 Alkaline Phosphatase 194 U/L (35-105) H 05/16/25 11:03 Total Protein 5.8 g/dL (6.6-8.7) L 05/16/25 11:03 Albumin 3.3 g/dL (3.5-5.2) L 05/16/25 11:03 Globulin 2.5 g/dL (1.3-4.6) 05/16/25 11:03 A&P Assessment and plan 1. Pseudomonas aeruginosa colonization: 65-year-old lady with a recent history of being on temporary dialysis between December to March 2025. Thereafter has not needed to continue dialysis therefore she was planned for a routine tunneled catheter removal on May 11, 2025. There were no concerning signs of port site infection prior to the removal of this catheter. There is no fever or leukocytosis or other signs of infection. It appears a routine catheter tip culture was sent at the time of removal which eventually resulted with growth of Pseudomonas aeruginosa. No peripheral blood cultures are available from this day. Today patient is clinically well-appearing, no signs of infection otherwise. No leukocytosis, lactate is normal. Site of port removal appears to be healthy without any signs of cellulitis discharge or underlying abscess. Peripheral blood culture drawn today in the emergency room. Favor the catheter tip culture positivity to reflect most likely colonization versus contamination. She has received one dose of Zosyn in the Er right now. Patient has an underlying pacemaker in place. Given this high risk factor and lack of peripheral cultures from the same day, would prefer to treat with 2 weeks of oral ciprofloxacin at this time for Pseudomonas colonization while pending peripheral cultures. Should peripheral blood cultures return positive, this course is likely going to need to be extended to 4 to 6 weeks. Patient does not need IV antibiotics/PICC line at this point in time. F/up ID clinic in 2 weeks. PDMP PDMP Reviewed: Not Reviewed Coding Level of Care Code Acute Code for Chg Fwd High MDM includes number and complexity of problems actively addressed during encounter, amount and/or complexity of data reviewed/ordered and described risk of complication, morbidity or mortality of management as documented Diagnoses Pseudomonas aeruginosa colonization Z22.39
[2025-05-16 12:42] VITALS: PULSE 62; O2SAT 96
== END 2025-05-16 13:58 | disposition home or self-care (01) ==
PROVIDERS: Emergency Provider Family Medicine; PCP Family Medicine
DX: R79.9 Abnormal finding of blood chemistry, unspecified (principal); B96.5 Pseudomonas (aeruginosa) (mallei) (pseudomallei) as the cause of diseases classified elsewhere; Z79.4 Long term (current) use of insulin; Z79.02 Long term (current) use of antithrombotics/antiplatelets; J44.9 Chronic obstructive pulmonary disease, unspecified; Z95.0 Presence of cardiac pacemaker; E11.22 Type 2 diabetes mellitus with diabetic chronic kidney disease; I12.9 Hypertensive chronic kidney disease with stage 1 through stage 4 chronic kidney disease, or unspecified chronic kidney disease; N18.9 Chronic kidney disease, unspecified
CPT/HCPCS: 36415; 71045; 80053; 83605; 85025; 87040; 96365; 99284; J2543

== ENCOUNTER → 2025-05-23 10:47 | Outpatient (BNVA) | payer MEDICARE, SELFPAY | PROVIDERS: PCP Family Medicine; Visit Provider Student in an Organized Health Care Education/Training Program | DX: Z98.890 Other specified postprocedural states (principal); Z99.2 Dependence on renal dialysis | CPT/HCPCS: 99024 ==

== ENCOUNTER → 2025-05-24 11:45 | Outpatient (BNVA) | payer MEDICARE, SELFPAY | PROVIDERS: PCP Family Medicine; Visit Provider Student in an Organized Health Care Education/Training Program | DX: T81.30XA Disruption of wound, unspecified, initial encounter (principal); Z22.39 Carrier of other specified bacterial diseases; X58.XXXA Exposure to other specified factors, initial encounter | CPT/HCPCS: 87070; 87075; 87205; 99203; 99214 ==

== ENCOUNTER 2025-06-30 16:19 | Outpatient (CLI) | payer MEDICARE, SELFPAY ==
[2025-06-30 16:33] LABS: Hematocrit 33.6 % (36-47); Hemoglobin 10.40 g/dL (11.27-16.99); Mean Corpuscular HGB Conc 31.0 g/dL (30-55); Mean Corpuscular Hemoglobin 27.2 pg (27-33); Mean Corpuscular Volume 87.7 fl (85-98); Nucleated Red Blood Cells % 0 %; Platelet Count 264 10^3/cmm (157-399); Red Blood Count 3.83 10^6/uL (3.85-5.65); White Blood Count 9.03 10^3/uL (3.29-11.43)
[2025-06-30 17:26] LABS: Calcium 9.0 mg/dL (8.5-10.5)
[2025-06-30 17:43] LABS: Creatinine Urine, Random 50 mg/dL (28-217)
[2025-06-30 17:55] LABS: Microalbum Creatinine Ratio Ur 5280 mg/dL (0-20)
[2025-06-30 18:06] LABS: Albumin Level 3.7 g/dL (3.5-5.2); Anion Gap 17.2 (5-19); Blood Urea Nitrogen 64 mg/dL (8-23); Calcium 9.2 mg/dL (8.5-10.5); Carbon Dioxide 24 mmol/L (22-29); Chloride 107 mmol/L (98-107); Glucose 176 mg/dL (65-115); Potassium 4.2 mmol/L (3.5-5.1); Sodium 144 mmol/L (136-145)
== END 2025-06-30 16:20 | disposition home or self-care (01) ==
LOC: LAB 16:23
PROVIDERS: PCP Family Medicine; Visit Provider Registered Nurse
DX: E55.9 Vitamin D deficiency, unspecified (principal); I13.0 Hypertensive heart and chronic kidney disease with heart failure and stage 1 through stage 4 chronic kidney disease, or unspecified chronic kidney disease; I50.32 Chronic diastolic (congestive) heart failure; N18.4 Chronic kidney disease, stage 4 (severe)
CPT/HCPCS: 80069; 82044; 82306; 82310; 83970; 85025

== ENCOUNTER 2025-08-07 08:41 | Outpatient (CLI) | payer MEDICARE, SELFPAY ==
[2025-08-07 09:20] LABS: Estmated Average Glucose 169; Hemoglobin A1C 7.5 % (4.0-6.0)
== END 2025-08-07 08:42 | disposition home or self-care (01) ==
PROVIDERS: PCP Family Medicine; Visit Provider Family Medicine
DX: D64.9 Anemia, unspecified (principal); E11.9 Type 2 diabetes mellitus without complications
CPT/HCPCS: 83036